=== PATIENT | female | born 1950 | race Hispanic/Latino ===

== ENCOUNTER 2019-06-19 12:20 | Outpatient (CLI) | payer MEDICARE, BC, SELFPAY ==
--- NOTE | ~2019-06-19 | XR_ITS ---
XR chest 2V DATE: 06/19/2019 13:26 INDICATION: Shortness of breath with exertion TECHNIQUE: PA and lateral views COMPARISON: 04/21/2017 PA chest FINDINGS: Heart size is within normal limits. Is aortic calcification and unfolding. No hilar or medi astinal enlargement is evident. No pulmonary infiltrate or consolidation, pleural effusion or pulmona ry vascular congestion or pneumothorax is detected. There is degenerative spurring of the thoracic spine. Evidence of prior abdominal wall repair. IMPRESSION: No active cardiopulmonary disease Aortic atherosclerosis Reviewed, dictated and finalized at location A.
--- NOTE | 2019-06-19 12:39 | ECG_ITS ---
Measurements Intervals [place] Rate: 81 P: 7 LA: 156 QRS: -6 QRSD: 98 T: 21 QT: 395 QTc: 461 Interpretive Statements SINUS RHYTHM DELAYED PRECORDIAL R/S TRANSITION BORDERLINE ECG Electronically Signed On 06-19-2019 13:06:08 CDT by Dewayne Jacobson D.O.
[2019-06-19 13:01] LABS: Basophils Percent Auto 0.5 % (0.2-1.2); Eosinophils Absolute Auto 0.3 K/mm3 (0-0.3); Hematocrit 33.6 % (37.0-47.0); Hemoglobin 10.7 g/dL (12.0-15.0); Immature Granulocyte Absolute 0.03 K/mm3 (0.00-0.031); Immature Granulocyte Percent A 0.5 % (0-0.5); Lymphocytes Absolute Auto 1.87 K/mm3 (0.9-3.2); Mean Corpuscular HGB Conc 31.8 g/dl (32-36); Mean Corpuscular Hemoglobin 28.8 pg (26-34); Mean Corpuscular Volume 90.6 fl (80-100); Mean Platelet Volume 12.1 fl (7.4-10.4); Monocytes Absolute Auto 0.5 K/mm3 (0.1-0.6); Monocytes Percent Auto 7.4 % (2.6-8.5); Neutrophils Absolute Auto 3.7 K/mm3 (1.3-6.7); Neutrophils Percent Auto 57.6 % (45.5-73.1); Platelet Count Result 177 k/mm3 (150-375); Red Blood Count 3.71 M/mm3 (4.2-5.4); Red Cell Distribution Width 13.9 % (11.5-14.5); White Blood Count 6.5 K/mm3 (4.5-10.0)
[2019-06-19 13:14] LABS: Alanine Aminotransferase 29 U/L (4-35); Albumin Level 3.8 g/dL (3.5-5.1); Alkaline Phosphatase 153 U/L (38-126); Aspartate Amino Transferase 43 U/L (14-36); Bilirubin,Total 0.4 mg/dL (0.2-1.3); Blood Urea Nitrogen 21 mg/dL (7-17); Carbon Dioxide 30 mmol/L (22-30); Chloride 102 mmol/L (98-107); Estimated Glomerular Filt Rate > 60; Glucose 200 mg/dL (65-105); Potassium 4.3 mmol/L (3.4-5.0); Sodium 136 mmol/L (137-145)
[2019-06-19 13:16] LABS: D Dimer 0.78 ug/mL (<0.48)
[2019-06-19 13:21] LABS: NT Pro B Type Natriuretic Pept 214 PG/ML (5-100)
== END 2019-06-19 12:21 | disposition home or self-care (01) ==
PROVIDERS: PCP Internal Medicine; Visit Provider Nurse Practitioner
DX: R06.02 Shortness of breath (principal); I70.0 Atherosclerosis of aorta
CPT/HCPCS: 36415; 71046; 80053; 83880; 85025; 85380; 93005

== ENCOUNTER 2019-06-19 13:37 | Emergency (ER) | payer MEDICARE, BC, SELFPAY ==
--- NOTE | ~2019-06-19 | CT_ITS ---
EXAMINATION: CTA chest PE protocol DATE: 06/19/2019 14:52 INDICATION: Shortness of breath. Elevated d-dimer. TECHNIQUE: Computed tomography angiography (CTA) of the chest was performed with 100 mL Omnipaque-350 intravenous contrast timed to evaluate the pulmonary arteries. Coronal maximum intensity projection 3D-reconstructions were created by the technologist. Automated exposure control and iterative reconst ruction technique were employed. Exam dose: 828.35 mGy-cm total exam DLP. COMPARISON: 06/18/2021 view chest FINDINGS: There is diagnostic contrast enhancement of the pulmonary arteries and no evidence of pulmo nary embolism. No evidence of thoracic aortic aneurysm or dissection. Cardiomegaly. No pericardial or pleural effusion. There is calcification. No hilar or mediastinal mass lesion or lymphadenopathy. Old pulmonary granulomatous disease. No pulmonary infiltrate or consolidation or pulmonary mass lesio n is evident. Old right rib fractures. Degenerative changes of the cervical and thoracic spine. Status post ventral abdominal wall mesh repair. Status post cholecystectomy. IMPRESSION: No evidence of pulmonary embolism Cardiomegaly Reviewed, dictated and finalized at Location [facility]. Reviewed, dictated and finalized at location A.
[2019-06-19 13:48] VITALS: BP 166/63; PULSE 84; RESP 18; TEMP 36.7; O2SAT 100
[2019-06-19 13:54] VITALS: O2SAT 100
--- NOTE | 2019-06-19 14:22 | ED.SOB ---
HPI - SOB/Dyspnea General Chief Complaint: Shortness of Breath/Dyspnea Stated Complaint: Trouble breathing Time Seen by Provider: 06/19/19 13:43 Source: patient Mode of arrival: ambulatory Limitations: no limitations History of Present Illness HPI Narrative: This is a 68 year old female that presents to the ER for shortness of breath x 2 weeks. Reports worse with exertion and when she is laying flat. Reports she was seen by her PCP for this today and had labs and imaging done. Reports she was told to come to the ER for a possible blood clot. Does report a productive cough, that seems to be chronic. Also reports edema to the right ankle which is chronic since her surgery a year ago. Denies fever, sore throat, or chest pain. Related Data Home Medications Medication Instructions Recorded Confirmed aspirin 81 mg tablet,delayed 81 mg PO DAILY 01/02/19 05/14/19 release cholecalciferol (vitamin D3) 125 5,000 unit PO DAILY 01/02/19 05/14/19 mcg (5,000 unit) tablet multivitamin 1 tablet PO DAILY 01/02/19 05/14/19 omega-3 fatty acids 1,000 mg 1,000 mg PO DAILY 01/02/19 05/14/19 capsule esomeprazole magnesium [Nexium] 20 mg PO DAILY 06/19/19 insulin glargine [Lantus U-100 75 unit SUBCUT HS 06/19/19 Insulin] Allergies Allergy/AdvReac Type Severity Reaction Status Date / Time daptomycin Allergy Intermediate Hives Verified 06/19/19 14:00 valsartan Allergy Intermediate Hives Verified 06/19/19 14:00 vancomycin Allergy Intermediate Hives Verified 06/19/19 14:00 Review of Systems Review of Systems: Narrative: CONSTITUTIONAL: Denies fever ENT: Denies rhinorrhea, congestion, sore throat CARDIOVASCULAR: Reports edema. Denies chest pain RESPIRATORY: Reports cough and dyspnea. All systems reviewed & are unremarkable except as noted in HPI and below PMFSH Past Medical History Medical History (Updated 06/19/19 @ 15:46 by Yanira Adame PA-C) Anemia Carpal tunnel syndrome, bilateral Cellulitis of right foot Chicken pox Chronic pain Heartburn Hernia Hypertension Hypothyroidism Pneumonia Polyneuropathy Rheumatoid arthritis Type 2 diabetes mellitus UTI (urinary tract infection) Surgical History Surgical History (Updated 01/02/19 @ 13:34 by Barbie Stanton CMA) H/O foot surgery Hx of cholecystectomy Family History Family History (Updated 01/02/19 @ 14:06 by Barbie Stanton CMA) Father Hyperlipidemia Lung cancer Diabetes mellitus Mother Diabetes mellitus Other Family history of allergic disorder Hypertension Social History Social History (Updated 05/14/19 @ 10:30 by Barbie Stanton CMA) Smoking status: Former smoker Smoking end date: 02/27/05 Alcohol intake: current Gender identity (if verbalized by the patient): Female Exam Narrative: Exam Narrative: GENERAL: Well-appearing, obese, and in no acute distress. HEAD: Normocephalic, atraumatic. EYES: EOMI. ENT: Nares clear, no rhinorrhea or epistaxis. Mucous membranes moist. Oropharynx without tonsillar hypertrophy exudate or other lesions. Bilateral TMs pearly linda non-bulging NECK: Supple. No adenopathy or masses. No JVD CHEST: Clear to auscultation. No respiratory distress. No wheezes, rales or rhonchi HEART: Regular rate and rhythm. No murmur heard. Normal peripheral pulses EXTREMITIES: Normal range of motion. Non pitting edema to the right ankle which patient reports is chronic. SKIN: Warm, dry, no rash. NEURO: No focal deficits. Alert and oriented x3. PSYCH: Normal mood and affect Course Vital Signs Vital signs: Vital Signs Temperature 98.1 F 06/19/19 13:48 Pulse Rate 84 06/19/19 13:48 Respiratory Rate 18 06/19/19 13:48 Blood Pressure 166/63 H 06/19/19 13:48 Pulse Oximetry 100 06/19/19 13:48 Temperature 98.1 F 06/19/19 13:48 Pulse Rate 84 06/19/19 13:48 Respiratory Rate 18 06/19/19 13:48 Blood Pressure 166/63 H 06/19/19 13:48 Pulse Oximetry 100 06/19/19 13:54 MDM - SOB/Dyspnea M
[2019-06-19 15:59] VITALS: BP 163/70; PULSE 83; RESP 18; O2SAT 99
== END 2019-06-19 16:04 | disposition home or self-care (01) ==
PROVIDERS: Emergency Provider Emergency Medicine; PCP Internal Medicine
DX: R06.02 Shortness of breath (principal); I10 Essential (primary) hypertension; E03.9 Hypothyroidism, unspecified; E11.42 Type 2 diabetes mellitus with diabetic polyneuropathy; Z79.4 Long term (current) use of insulin; Z86.2 Personal history of diseases of the blood and blood-forming organs and certain disorders involving the immune mechanism; M06.9 Rheumatoid arthritis, unspecified; Z87.440 Personal history of urinary (tract) infections; Z87.891 Personal history of nicotine dependence
CPT/HCPCS: 36415; 71046; 71275; 80053; 83880; 85025; 85380; 93005; 99284; Q9967

== ENCOUNTER 2019-07-03 12:17 | Outpatient (CLI) | payer MEDICARE, BC, SELFPAY ==
--- NOTE | 2019-07-03 12:36 | ECHO_ITS ---
Patient Info Name: Aleyda Dobbs Age: 69 years : 1950 Gender: Female Ht: 64 in Wt: 240 lbs BSA: 2.27 m2 HR: 86 bpm BP: 174 / 85 mmHg Technical Quality: Fair Exam Date: 07/03/2019 12:59 PM Exam Location: [facility] Patient Status: Outpatient Admit Date: 07/03/2019 Staff Ordering Physician: Charles Armendariz DO [employer] Car Supervisor: Clifton Orellana RDCS, RT Attending Provider: Charles Armendariz DO Referring Physician: Kala JALLOH; Exam Type: CA echo doppler color flow Study Info Indications I50.9 - Heart failure, unspecified Complete two-dimensional, color flow and Doppler transthoracic echocardiogram is performed. Summary 1. Left ventricular chamber dimension is normal. 2. Left ventricular systolic function is normal, estimated at 65-70%. 3. There is mildly increased left ventricular wall thickness. 4. The left ventricular diastolic function is grade I diastolic dysfunction. 5. E/e' 19 is elevated. 6. Global longitudinal strain is abnormal at -15.4%. 7. Left atrial chamber dimension is mildly enlarged. 8. There is mild aortic valve sclerosis. 9. The mitral valve has not well visualized and moderately calcified annulus. Left Ventricle E/e' 19 is elevated. Global longitudinal strain is abnormal at -15.4%. Left ventricular chamber dimension is normal. Left ventricular systolic function is normal, estimated at 65-70%. There is mildly increased left ventricular wall thickness. The left ventricular diastolic function is grade I diastolic dysfunction. Right Ventricle Right ventricular chamber dimension is normal. Right ventricular systolic function is normal. Left Atria Left atrial chamber dimension is mildly enlarged. Right Atria Right atrial chamber dimension is normal. Aortic Valve The aortic valve is probable trileaflet. There is mild aortic valve sclerosis. There is no aortic valve stenosis. There is no aortic valve regurgitation. Pulmonic Valve There is no pulmonic regurgitation. Mitral Valve The mitral valve has not well visualized and moderately calcified annulus. There is no mitral valve stenosis. There is no mitral valve regurgitation. Tricuspid Valve There is no tricuspid valve regurgitation. Pericardium/Pleural There is no pericardial effusion. Inferior Vena Cava Normal inferior vena cava with >50% collapse upon inspiration consistent with normal right atrial pressure, 5 mmHg. Aorta The aortic root size at the sinus of Valsalva is normal. Left Ventricular Outflow Tract Name Value Normal LVOT 2D LVOT Diameter 1.9 cm LVOT Doppler LVOT Peak Gradient 5 mmHg LVOT Mean Gradient 2 mmHg LVOT VTI 23 cm LVOT VTI/AV VTI Ratio 0.8 LVOT Stroke Volume 66 ml LVOT CO 5.8 l/min LVOT CI 2.5 l/min/m2 Mitral Valve Name Value N
== END 2019-07-03 12:18 | disposition home or self-care (01) ==
PROVIDERS: PCP Internal Medicine; Visit Provider Internal Medicine
DX: R06.02 Shortness of breath (principal); I25.2 Old myocardial infarction; I35.8 Other nonrheumatic aortic valve disorders
CPT/HCPCS: 93306

== ENCOUNTER 2019-10-28 12:32 | Emergency (ER) | payer MEDICARE, BC, SELFPAY ==
[2019-10-28 13:08] VITALS: BP 168/63; PULSE 93; RESP 18; TEMP 36.3; O2SAT 99
--- NOTE | 2019-10-28 14:22 | ED.GENADULT ---
HPI - General Adult General Chief complaint: Fall <TIMOTEO Charles Last Filed: 10/28/19 14:26> Stated complaint: fall, hit head and rt arm <TIMOTEO Charles Last Filed: 10/28/19 14:26> Time Seen by Provider: 10/28/19 13:06 <TIMOTEO Charles Last Filed: 10/28/19 14:26> Source: patient <TIMOTEO Charles Last Filed: 10/28/19 14:26> Mode of arrival: ambulatory <TIMOTEO Charles Last Filed: 10/28/19 14:26> Limitations: no limitations <TIMOTEO Charles Last Filed: 10/28/19 14:26> History of Present Illness HPI narrative: Patient is a 69-year-old female who presents per private vehicle for evaluation of injuries related to a ground-level fall that occurred today patient was ambulating when she fell backwards striking the head and injuring the right forearm patient notes bruise of the right mid forearm as well as mild posterior head pain where she struck her head on a door on the way down to the ground. Patient denies syncope loss of consciousness or other injuries and notes that she otherwise feels fine on arrival resting comfortably in the room in no distress presenting with normal gait <TIMOTEO Charles Last Filed: 10/28/19 14:26> Related Data Home medications: Home Medications Medication Instructions Recorded Confirmed aspirin 81 mg tablet,delayed 81 mg PO DAILY 01/02/19 10/15/19 release cholecalciferol (vitamin D3) 125 5,000 unit PO DAILY 01/02/19 10/15/19 mcg (5,000 unit) tablet multivitamin 1 tablet PO DAILY 01/02/19 10/15/19 omega-3 fatty acids 1,000 mg 1,000 mg PO DAILY 01/02/19 10/15/19 capsule insulin glargine U-300 conc 300 78 unit SUB-Q DAILY ml 10/15/19 10/15/19 unit/mL (3 mL) subcutaneous pen <TIMOTEO Charles Last Filed: 10/28/19 14:26> Allergies/adverse reactions: Allergies Allergy/AdvReac Type Severity Reaction Status Date / Time daptomycin Allergy Intermediate Hives Verified 06/25/19 10:26 valsartan Allergy Intermediate Hives Verified 06/25/19 10:26 vancomycin Allergy Intermediate Hives Verified 06/25/19 10:26 <Ramez Pulido PA-C - Last Filed: 10/28/19 14:26> Review of Systems Review of Systems: All systems reviewed & are unremarkable except as noted in HPI and below <Ramez Pulido PA-C - Last Filed: 10/28/19 14:26> PMFSH Past Medical History Medical History: Medical History Anemia Carpal tunnel syndrome, bilateral Cellulitis of right foot Chicken pox Chronic pain Heartburn Hernia History of [place] (myocardial infarction) Hypertension Hypothyroidism Pneumonia Polyneuropathy Rheumatoid arthritis Type 2 diabetes mellitus UTI (urinary tract infection) <Ramez Pulido PA-C - Last Filed: 10/28/19 14:26> Surgical History Surgical History: Surgical History H/O foot surgery Hx of cholecystectomy <Ramez Pulido PA-C - Last Filed: 10/28/19 14:26> Family History Family History: Family History Father Hyperlipidemia Lung cancer Diabetes mellitus Mother Diabetes mellitus Other Family history of allergic disorder Hypertension <Ramez Pulido PA-C - Last Filed: 10/28/19 14:26> Social History Social History: Social History Smoking status: Former smoker Smoking end date: 02/27/05 Alcohol intake: current Gender identity (if verbalized by the patient): Female <Ramez Pulido PA-C - Last Filed: 10/28/19 14:26> Exam Narrative: Exam Narrative: GENERAL: Well-appearing, well-nourished, and in no acute distress. HEAD: Normocephalic, small contusion to the posterior head EYES: PERRLA and EOMI. ENT: Nares clear, no rhinorrhea or epistaxis. Mucous membranes moist. Oropharynx without tonsillar h
[2019-10-28 14:49] VITALS: BP 155/60; PULSE 76; RESP 18; O2SAT 98
== END 2019-10-28 14:50 | disposition home or self-care (01) ==
LOC: ANHED 14:35
PROVIDERS: Emergency Provider Emergency Medicine; PCP Internal Medicine
DX: S09.90XA Unspecified injury of head, initial encounter (principal); S50.11XA Contusion of right forearm, initial encounter; Z79.82 Long term (current) use of aspirin; Z79.4 Long term (current) use of insulin; Z86.2 Personal history of diseases of the blood and blood-forming organs and certain disorders involving the immune mechanism; I25.2 Old myocardial infarction; I10 Essential (primary) hypertension; E03.9 Hypothyroidism, unspecified; E11.42 Type 2 diabetes mellitus with diabetic polyneuropathy; M06.9 Rheumatoid arthritis, unspecified; Z87.440 Personal history of urinary (tract) infections; Z87.891 Personal history of nicotine dependence; W01.119A Fall on same level from slipping, tripping and stumbling with subsequent striking against unspecified sharp object, initial encounter
CPT/HCPCS: 99282

== ENCOUNTER 2020-05-13 09:25 | Outpatient (CLI) | payer MEDICARE, BC, SELFPAY ==
[2020-05-13 09:57] LABS: Basophils Percent Auto 0.5 % (0.2-1.2); Eosinophils Absolute Auto 0.3 K/mm3 (0-0.3); Eosinophils Percent Auto 5.1 % (0-4.4); Hematocrit 32.5 % (37.0-47.0); Hemoglobin 10.4 g/dL (12.0-15.0); Immature Granulocyte Absolute 0.03 K/mm3 (0.00-0.031); Immature Granulocyte Percent A 0.5 % (0-0.5); Lymphocytes Absolute Auto 1.69 K/mm3 (0.9-3.2); Lymphocytes Percent Auto 30.7 % (18.3-44.2); Mean Corpuscular Hemoglobin 29.1 pg (26-34); Mean Platelet Volume 12.3 fl (7.4-10.4); Monocytes Absolute Auto 0.5 K/mm3 (0.1-0.6); Monocytes Percent Auto 8.5 % (2.6-8.5); Neutrophils Percent Auto 54.7 % (45.5-73.1); Platelet Count Result 147 k/mm3 (150-375); Red Blood Count 3.57 M/mm3 (4.2-5.4); Red Cell Distribution Width 14.1 % (11.5-14.5); White Blood Count 5.5 K/mm3 (4.5-10.0)
[2020-05-13 10:10] LABS: Potassium 3.7 mmol/L (3.4-5.0)
[2020-05-13 10:16] LABS: Alanine Aminotransferase 24 U/L (4-35); Albumin Level 3.6 g/dL (3.5-5.1); Alkaline Phosphatase 115 U/L (38-126); Anion Gap 4 mmol/L (8-16); Aspartate Amino Transferase 39 U/L (14-36); Bilirubin,Total 0.2 mg/dL (0.2-1.3); Blood Urea Nitrogen 26 mg/dL (7-17); Calcium 8.5 mg/dL (8.4-10.2); Carbon Dioxide 32 mmol/L (22-30); Chloride 107 mmol/L (98-107); Estimated Glomerular Filt Rate 50; Glucose 109 mg/dL (65-105); Sodium 143 mmol/L (137-145)
[2020-05-13 10:36] LABS: Iron 62 ug/dL (37-170)
[2020-05-13 10:54] LABS: Free T4 Free Thyroxine 1.39 ng/mL (0.78-2.19)
[2020-05-13 10:55] LABS: Percent Iron Saturation 23 % (20-50)
[2020-05-17 08:09] LABS: Triiodothyronine T3 Free 2.6 pg/mL (2.3-4.2)
== END 2020-05-13 09:26 | disposition home or self-care (01) ==
PROVIDERS: PCP Internal Medicine; Visit Provider Clinical Nurse Specialist
DX: D64.9 Anemia, unspecified (principal); E03.9 Hypothyroidism, unspecified; R11.2 Nausea with vomiting, unspecified
CPT/HCPCS: 36415; 80053; 82728; 83540; 83550; 84439; 84443; 84481; 85025

== ENCOUNTER → 2020-05-16 01:08 | Outpatient (CLI) | payer MEDICARE, BC, SELFPAY ==
[2020-05-16 19:13] LABS: SARS-CoV-2 RNA PCR Negative
== END ==
PROVIDERS: PCP Internal Medicine; Visit Provider Internal Medicine Gastroenterology
DX: Z01.812 Encounter for preprocedural laboratory examination (principal); Z20.822 Contact with and (suspected) exposure to COVID-19
CPT/HCPCS: C9803; U0003; U0005

== ENCOUNTER 2020-05-19 00:15 | Day surgery (SDC) | payer MEDICARE, BC, SELFPAY ==
[2020-05-06 13:12] VITALS: BMI 38.5
[2020-05-19 11:07] VITALS: BP 141/76; PULSE 72; RESP 20; TEMP 36.3; O2SAT 94; BMI 38.9
[2020-05-19 11:15] LABS: Glucose Point of Care 54 (65-105)
[2020-05-19] MEDS: DEXTROSE 50% 25 GM/50 ML SYRINGE IV PUSH ×2 (11:18→13:22)
[2020-05-19] MEDS: LACTATED RINGERS 1,000 ML 150 ML IV CONT (11:24)
--- NOTE | 2020-05-19 11:28 | SUR.PREOP ---
Pt BS as charted. MD Shah made aware. Orders given. pt asymptomatic. will recheck BS.
--- NOTE | 2020-05-19 11:32 | WPDANESEPPF ---
Anes - Initial Pre Proc Eval Procedure: Operation Date: 05/19/20 12:45 Proposed Procedures p Esophagogastroduodenoscopy & Colonoscopy - Juan Carlos Luna MD Date/Time: 05/19/20 11:32 Surgeon: Juan Carlos Luna MD Pre Op Diagnosis: diarrhea, nausea Patient Data Age: 69 Gender: F Height: 5 ft 3 in Weight: 99.7 kg Last Vital Signs Temp 97.3 F L 05/19/20 11:07 Pulse 72 05/19/20 11:07 Resp 20 05/19/20 11:07 BP 141/76 H 05/19/20 11:07 Pulse Ox 94 05/19/20 11:07 Allergies Allergy/AdvReac Type Severity Reaction Status Date / Time daptomycin Allergy Intermediate Hives Verified 05/19/20 11:05 valsartan Allergy Intermediate Hives Verified 05/19/20 11:05 vancomycin Allergy Intermediate Hives Verified 05/19/20 11:05 lisinopril Allergy Cough Verified 05/19/20 11:05 Home Medications Medication Instructions Recorded Confirmed Type aspirin 81 mg tablet,delayed 81 mg PO DAILY 01/02/19 05/19/20 History release cholecalciferol (vitamin D3) 125 5,000 unit PO DAILY 01/02/19 05/19/20 History mcg (5,000 unit) tablet gabapentin 600 mg tablet 600 mg PO BID #180 tablet 01/02/19 05/19/20 Rx insulin lispro 100 unit/mL 1 sliding scale dose SUB-Q 01/02/19 05/19/20 Rx subcutaneous cartridge USEASDIRECTD #3 ml multivitamin 1 tablet PO DAILY 01/02/19 05/19/20 History omega-3 fatty acids 1,000 mg 1,000 mg PO DAILY 01/02/19 05/19/20 History capsule albuterol sulfate 90 mcg/actuation 2 puff INHALATION Q4-6H PRN #8.5 gm 05/14/19 05/19/20 Rx aerosol inhaler amlodipine 2.5 mg tablet 2.5 mg PO DAILY #90 tablet 05/14/19 05/19/20 Rx atorvastatin 40 mg tablet 40 mg PO DAILY #90 tablet 05/14/19 05/19/20 Rx fluticasone propionate 50 1 - 2 spray NASAL DAILY PRN #54.6 05/14/19 05/19/20 Rx mcg/actuation nasal ml spray,suspension furosemide 20 mg tablet 20 mg PO QAM #90 tablet 05/14/19 05/19/20 Rx metoprolol succinate 25 mg 25 mg PO DAILY #90 tablet 05/14/19 05/19/20 Rx tablet,extended release 24 hr insulin glargine U-300 conc 300 78 unit SUB-Q DAILY ml 10/15/19 05/19/20 History unit/mL (3 mL) subcutaneous pen levothyroxine 100 mcg tablet 100 mcg PO DAILY #90 tablet 12/07/19 05/19/20 Rx famotidine 20 mg tablet 20 mg PO BID #180 tablet 01/16/20 05/19/20 Rx prochlorperazine maleate 5 mg 5 mg PO Q8H PRN #14 tablet 03/05/20 05/19/20 Rx tablet metformin 1,000 mg tablet 1,000 mg PO BID #180 tablet 04/14/20 05/19/20 Rx sodium,potassium,mag sulfates 17.5 See Rx Instructions PO .COMPLEX 04/27/20 05/19/20 Rx gram-3.13 gram-1.6 gram oral soln #354 ml duloxetine [Cymbalta] 20 mg PO DAILY 05/06/20 05/19/20 History hydroxychloroquine [Plaquenil] 200 mg PO BID 05/06/20 05/19/20 History montelukast [Singulair] 10 mg PO DAILY 05/06/20 05/19/20 History tizanidine [Zanaflex] 2 mg PO TID PRN 05/06/20 05/19/20 History Laboratory Tests 05/19/20 11:13 POC Capillary Glucose 54 mg/dl L* mg/dl (65-105) Patient hx anesthesia problems: none Family hx anesthesia problems: none PMFSH Past Medical History Medical History (Updated 04/23/20 @ 12:10 by TIKI Hoff) Anemia Carpal tunnel syndrome, bilateral Cellulitis of right foot Chicken pox Chronic pain Diarrhea Heartburn Hernia History of [place] (myocardial infarction) Hypertension Hypothyroidism Obesity Pneumonia Polyneuropathy Rheumatoid arthritis Type 2 diabetes mellitus UTI (urinary tract infection) Surgical History Surgical History H/O foot surgery Hx of cholecystectomy Family History Family History Father Hyperlipidemia Lung cancer Diabetes mellitus Mother Diabetes mellitus Other Family history of allergic disorder Hypertension Social History Social History Smoking status: Former smoker Tobacco type: cigarettes Smokin
[2020-05-19 12:04] LABS: Glucose Point of Care 73 (65-105)
--- NOTE | 2020-05-19 12:14 | WPDHPUPDATE1 ---
History and Physical Update Update Date/Time: 05/19/20 12:14 History and Physical has been reviewed, including an updated exam of the patient. There are NO changes in the patient's condition. Risks, benefits, and alternatives have been discussed and questions answered. Patient agrees to proceed with procedure.
[2020-05-19 12:53] VITALS: BP 96/37; PULSE 76; RESP 16; O2SAT 100
[2020-05-19 13:03] VITALS: BP 113/49; PULSE 78; RESP 20; O2SAT 98
--- NOTE | 2020-05-19 13:05 | SUR.PHASEII ---
PT'S BLOOD SUGAR 55. PT AWAKE AND ORIENTED X3, TALKING WITHOUT DIFFICULTY. PT GIVEN APPLE JUICE PER REQUEST. DR REY NOTIFIED. WILL RECHECK BLOOD SUGAR AFTER APPLE JUICE.
[2020-05-19 13:13] VITALS: BP 123/64; PULSE 80; RESP 20; O2SAT 97
[2020-05-19 13:23] VITALS: BP 134/43; PULSE 78; RESP 22; O2SAT 96
--- NOTE | 2020-05-19 13:23 | SUR.PHASEII ---
BLOOD SUGAR AFTER PT DRINKING APPLE JUICE IS 45. PT ASSYMPTOMATIC. DR REY NOTIFIED AND NEW ORDERS RECEIVED FOR ONE HALF AMP OF D50. PT AND SPOUSE NOTIFIED AND DEXTROSE GIVEN PER ORDERS.
--- NOTE | 2020-05-19 13:39 | SUR.PHASEII ---
REPEAT BLOOD SUGAR 92. PT STATES DOES NOT FEEL BAD, NO SYMPTOMS. AWAKE AND TALKING X3.
[2020-05-19 13:58] LABS: Glucose Point of Care 92 (65-105)
[2020-05-19 13:58] LABS: Glucose Point of Care 45 (65-105)
[2020-05-19 13:58] LABS: Glucose Point of Care 55 (65-105)
== END 2020-05-19 13:55 | disposition home or self-care (01) ==
PROVIDERS: PCP Internal Medicine; Visit Provider Internal Medicine Gastroenterology
PROC: 0DJ08ZZ Inspection of Upper Intestinal Tract, Via Natural or Artificial Opening Endoscopic (ICD-10-PCS; CPT 43235; principal; 2020-05-19 12:45)
DX: Z12.11 Encounter for screening for malignant neoplasm of colon (principal); K63.5 Polyp of colon; K64.8 Other hemorrhoids; K52.9 Noninfective gastroenteritis and colitis, unspecified; K29.50 Unspecified chronic gastritis without bleeding; K20.90 Esophagitis, unspecified without bleeding; I10 Essential (primary) hypertension; E11.42 Type 2 diabetes mellitus with diabetic polyneuropathy; M06.9 Rheumatoid arthritis, unspecified; D64.9 Anemia, unspecified; I25.2 Old myocardial infarction; E03.9 Hypothyroidism, unspecified; Z79.4 Long term (current) use of insulin; Z79.51 Long term (current) use of inhaled steroids; Z79.84 Long term (current) use of oral hypoglycemic drugs; Z87.891 Personal history of nicotine dependence; E66.9 Obesity, unspecified; Z68.38 Body mass index [BMI] 38.0-38.9, adult
CPT/HCPCS: 45380; 43239; 82948; 88305; J2704; J7120

== ENCOUNTER 2020-06-04 07:10 | Outpatient (CLI) | payer MEDICARE, BC, SELFPAY ==
--- NOTE | ~2020-06-04 | NM_ITS ---
EXAM: NM gastric emptying study DATE: 06/04/2020 11:54 INDICATION: Nausea and vomiting. TECHNIQUE: A gastric emptying study was performed using the methodology of Dewayne WALSH, et al. J Nucl Med 2007; 48:568-572. The patient was given a meal consisting of 2 scrambled eggs labeled with 1 mCi Tc-99m sulfur colloid, 2 slices of toast, two packages of jam, and approximately 120 mL of water. Si multaneous anterior and posterior 1-min images of the abdomen were obtained with the patient supine a t multiple time points over a total period of 4 hours. The geometric mean of anterior and posterior v iews was determined, and the percentage retention was calculated for each time point. COMPARISON: Chest CT 06/19/2019 FINDINGS: Gastric retention of the radiotracer-labeled meal was 83%, 77%, and 63% at the 1-hour, 2-h our, and 4-hour time points, respectively. With this technique, apparent rapid gastric emptying is molina ggested by <30% gastric retention at 1 hour. Delayed gastric emptying is defined by gastric retention of >90% at 1 hour, >60% retention at 2 hours, or >10% retention at 4 hours. IMPRESSION: 1. Delayed gastric emptying. Reviewed, dictated and finalized at location A.
== END 2020-06-04 07:11 | disposition home or self-care (01) ==
PROVIDERS: PCP Internal Medicine; Visit Provider Nurse Practitioner Family
DX: R11.2 Nausea with vomiting, unspecified (principal); E11.9 Type 2 diabetes mellitus without complications; K30 Functional dyspepsia
CPT/HCPCS: 78264; A9541

== ENCOUNTER 2020-06-17 22:04 | Inpatient (IN) | payer MEDICARE, BC, SELFPAY ==
--- NOTE | ~2020-06-17 | XR_ITS ---
XR foot LT min 3V 06/17/2020 22:33 Indication: First toe wound. Diabetes. Procedure: 4 views left foot Comparison: No prior studies for comparison. Findings: Osteopenia. There is a screw fusing the no first distal and proximal phalanges. There is a radiopaque disc overlying the midfoot laterally. Extensive arterial calcifications. Mild soft tissue swelling overlying the first toe. No osteolytic or blastic lesions. No significant periosteal reactio n. There are prominent degenerative calcaneal enthesophytes. Impression: 1: No acute bone or joint abnormality. Reviewed, dictated and finalized at location A. Impression: 1: No acute bone or joint abnormality.
--- NOTE | ~2020-06-17 | US_ITS ---
EXAMINATION: US arterial ankle brachial ind DATE: 06/18/2020 09:53 INDICATION: Peripheral arterial disease. TECHNIQUE: Segmental pressures and plethysmographic and Doppler waveforms of the brachial and lower e xtremity arteries were obtained. COMPARISON: Arterial Doppler and segmental pressures 05/10/2017 FINDINGS: Right and left brachial artery pressures of 157 mm Hg and 158 mm Hg, respectively, are concordant (no rmal difference <= 30 mmHg). The right ankle-brachial index (TANA) could not be measured due to inability to cuff occlude the arter ies (normal >= 0.9-1.0). The right great toe-brachial index (TBI) is 0.91 (normal >= 0.65). Arterial Doppler waveforms are biphasic at the ankle. The left TANA could not be measured due to inability to cuff occlude the arteries. The left TBI is 0.3 9. Arterial Doppler waveforms are biphasic at the ankle. IMPRESSION: 1. Decreased left TBI, consistent with left-sided arterial occlusive disease. ABIs could not be measu red. Reviewed, dictated and finalized at location B. IMPRESSION: 1. Decreased left TBI, consistent with left-sided arterial occlusive disease. A BIs could not be measured.
--- NOTE | ~2020-06-17 | US_ITS ---
EXAMINATION: US venous doppler [facility] DATE: 06/19/2020 15:47 INDICATION: Left lower limb pain and cellulitis. TECHNIQUE: Grayscale ultrasound images without and with compression and Doppler ultrasound images of the left lower extremity veins were obtained. COMPARISON: None. FINDINGS: The visualized portions of left common femoral vein, profunda (deep) femoral vein, femoral vein, popl iteal vein, peroneal veins, posterior tibial veins, gastrocnemius vein and greater saphenous vein out flow are patent. IMPRESSION: 1. No deep venous thrombosis in the left lower limb. Reviewed, dictated and finalized at location A.
--- NOTE | ~2020-06-17 | CT_ITS ---
EXAMINATION: CTA abd aorta runoff DATE: 06/19/2020 16:07 INDICATION: Peripheral arterial disease. Ulcer of left great toe. TECHNIQUE: Computed tomographic angiography (CTA) of the abdominal, pelvis, and both lower extremitie s was performed with 150 mL Omnipaque-350 intravenous contrast. The dose-length product was 1668.08 m Gy-cm. Maximum intensity projection 3D-reconstructions of the arteries were created by the [facility] on a separate workstation. COMPARISON: ABIs 06/18/2020, chest CT 06/19/2019 FINDINGS: ABDOMINAL AORTA AND ITS BRANCHES: Abdominal aorta is normal in caliber. There is no significant stenosis of celiac axis. There is mild stenosis of superior mesenteric artery and the renal arteries. There is no significant stenosis of in ferior mesenteric artery. PELVIC VASCULATURE: There is no significant stenosis of the common iliac arteries or internal or external iliac arteries. RIGHT LOWER EXTREMITY VASCULATURE: There is no significant stenosis of right common femoral artery, superficial femoral artery, profunda femoral artery, popliteal artery, tibioperoneal trunk, anterior tibial artery, or peroneal artery. T here is total occlusion of proximal left posterior tibial artery. Arterial calcifications decrease se nsitivity and specificity in the lower leg arteries. LEFT LOWER EXTREMITY VASCULATURE: There is no significant stenosis of the common femoral artery, profunda femoral artery, superficial f emoral artery, popliteal artery, tibioperoneal trunk, anterior tibial artery, or peroneal artery. The re is total occlusion of posterior tibial artery as it crosses the ankle. Arterial calcifications dec rease sensitivity and specificity in the lower leg. ADDITIONAL FINDINGS: The visualized portions of the lung bases demonstrate calcified right lower lobe nodule and calcified right hilar lymph nodes, consistent with old granulomatous disease. No pleural effusion. Cardiomegal y is noted. No pericardial effusion. The liver is normal. There are changes of cholecystectomy. There is a 4.2 cm low-attenuation mass in the spleen with calcified septations, stable from 06/19/2019, lik steve benign. Calcifications in the spleen are consistent with old granulomatous disease. The pancreas and adrenal glands are normal. There is cortical thinning of the kidneys. There are no dilated loops of bowel. The appendix is not visualized. There are changes of ventral hernia repair. There are no pa thologically enlarged lymph nodes. There is no free intraperitoneal fluid. There is instrumentation o f the feet. IMPRESSION: 1. Total occlusion of proximal right posterior tibial artery and distal left posterior tibial artery . Two-vessel runoff bilaterally. Arterial calcifications decrease sensitivity and specificity in the lower legs. Reviewed, dictated and finalized at location A. IMPRESSION: 1. Total occlusion of proximal right posterior tibial artery and distal left p osterior tibial artery. Two-vessel runoff bilaterally. Arterial calcifications decrease sensitivity and specificity in the lower legs.
[2020-06-17 22:06] VITALS: BP 135/60; PULSE 92; RESP 18; TEMP 35.9; O2SAT 99
--- NOTE | 2020-06-17 22:19 | ED.WOUNDLAC ---
HPI - Wound/Laceration General Chief Complaint: Wound/Laceration Stated Complaint: left foot wound Time Seen by Provider: 06/17/20 22:13 Source: RN notes reviewed History of Present Illness HPI narrative: Patient presents emergency department from home for left first toe wound. Patient states symptoms initially began 3 weeks ago and progressively worsened. Patient states that the wound initially been a open ulceration and is now black in color she states that she has had swelling and pain in the region with some redness coming up into the foot states she did run a fever 2 days ago with subjective she is a diabetic she denies any other wounds she denies any chest pain shortness of breath or any other symptoms Related Data Home Medications Medication Instructions Recorded Confirmed aspirin 81 mg tablet,delayed 81 mg PO DAILY 01/02/19 06/15/20 release cholecalciferol (vitamin D3) 125 5,000 unit PO DAILY 01/02/19 06/15/20 mcg (5,000 unit) tablet multivitamin 1 tablet PO DAILY 01/02/19 06/15/20 omega-3 fatty acids 1,000 mg 1,000 mg PO DAILY 01/02/19 06/15/20 capsule insulin glargine U-300 conc 300 78 unit SUB-Q DAILY ml 10/15/19 06/15/20 unit/mL (3 mL) subcutaneous pen duloxetine [Cymbalta] 20 mg PO DAILY 05/06/20 06/15/20 hydroxychloroquine [Plaquenil] 200 mg PO BID 05/06/20 06/15/20 montelukast [Singulair] 10 mg PO DAILY 05/06/20 06/15/20 Allergies Allergy/AdvReac Type Severity Reaction Status Date / Time daptomycin Allergy Intermediate Hives Verified 06/17/20 22:10 valsartan Allergy Intermediate Hives Verified 06/17/20 22:10 vancomycin Allergy Intermediate Hives Verified 06/17/20 22:10 lisinopril Allergy Cough Verified 06/17/20 22:10 Review of Systems Review of Systems: Narrative: Gen.: Denies fevers or chills ENT: Denies congestion Respiratory: Denies shortness of breath or cough CV: Denies chest pain or palpitations GI: Denies abdominal pain nausea, emesis Musculoskeletal: Denies back pain or muscle pain Neuro: Denies numbness, tingling, weakness or focal weakness Skin: See HPI Except as documented, all other systems reviewed and negative [facility] Past Medical History Medical History Anemia Carpal tunnel syndrome, bilateral Cellulitis of right foot Chicken pox Chronic pain Diarrhea Heartburn Hernia History of [place] (myocardial infarction) Hypertension Hypothyroidism Obesity Pneumonia Polyneuropathy Rheumatoid arthritis Type 2 diabetes mellitus UTI (urinary tract infection) Surgical History Surgical History H/O foot surgery Hx of cholecystectomy Family History Family History Father Hyperlipidemia Lung cancer Diabetes mellitus Mother Diabetes mellitus Other Family history of allergic disorder Hypertension Social History Social History Smoking status: Former smoker Tobacco type: cigarettes Smoking end date: 02/27/05 Alcohol intake: current Substance use type: does not use Gender identity (if verbalized by the patient): Female Spiritual care concerns: No Exam Narrative: Exam Narrative: APPEARANCE: No acute distress, nontoxic, resting in bed EYES: EOMI HEENT: Normocephalic, atraumatic, OMM RESPIRATORY: No respiratory distress Clear to auscultation bilaterally with no rhonchi wheezing or rales. CARDIOVASCULAR: Regular rate and rhythm without murmurs rubs or gallops. ABDOMINAL: Soft, nontender, nondistended, no rebound or guarding MUSCULOSKELETAl: Moves all extremities. No clubbing, cyanosis or edema. NEURO: Awake and alert. Following commands, speech normal, no focal deficits SKIN:: Warm, dry. No rashes lesions The left great toe has a blackened circular wound with eschar over the distal aspect with swelling of the entire great toe with e
[2020-06-17 22:52] LABS: Basophils Percent Auto 0.3 % (0.2-1.2); Eosinophils Absolute Auto 0.2 K/mm3 (0-0.3); Eosinophils Percent Auto 1.8 % (0-4.4); Hematocrit 29.3 % (37.0-47.0); Hemoglobin 9.5 g/dL (12.0-15.0); Immature Granulocyte Absolute 0.04 K/mm3 (0.00-0.031); Immature Granulocyte Percent A 0.4 % (0-0.5); Lymphocytes Percent Auto 22.3 % (18.3-44.2); Mean Corpuscular HGB Conc 32.4 g/dl (32-36); Mean Corpuscular Hemoglobin 28.9 pg (26-34); Mean Corpuscular Volume 89.1 fl (80-100); Monocytes Absolute Auto 0.9 K/mm3 (0.1-0.6); Monocytes Percent Auto 8.3 % (2.6-8.5); Neutrophils Absolute Auto 7.2 K/mm3 (1.3-6.7); Neutrophils Percent Auto 66.9 % (45.5-73.1); Platelet Count Result 175 k/mm3 (150-375); Red Blood Count 3.29 M/mm3 (4.2-5.4); Red Cell Distribution Width 13.6 % (11.5-14.5); White Blood Count 10.8 K/mm3 (4.5-10.0)
[2020-06-17 23:01] LABS: Prothrombin Time 13.6 Seconds (11.1-14.7)
[2020-06-17 23:02] LABS: Partial Thromboplastin Time 36.5 SECONDS (22.3-36.8)
[2020-06-17 23:03] LABS: Alanine Aminotransferase 20 U/L (4-35); Albumin Level 3.7 g/dL (3.5-5.1); Alkaline Phosphatase 117 U/L (38-126); Anion Gap 6 mmol/L (8-16); Aspartate Amino Transferase 29 U/L (14-36); Bilirubin,Total 0.4 mg/dL (0.2-1.3); Blood Urea Nitrogen 20 mg/dL (7-17); Calcium 8.4 mg/dL (8.4-10.2); Carbon Dioxide 29 mmol/L (22-30); Chloride 100 mmol/L (98-107); Estimated CRCL calculation 46 ml/min; Estimated Glomerular Filt Rate 45; Glucose 179 mg/dL (65-105); Potassium 3.5 mmol/L (3.4-5.0); Sodium 135 mmol/L (137-145)
[2020-06-17 23:04] LABS: Lactic Acid Reflex 1.3 mmol/L (0.7-2.1)
[2020-06-17 23:23] LABS: Hemoglobin A1C 6.2 % (<5.7)
[2020-06-17 23:31] VITALS: BP 133/58; PULSE 86; RESP 18; TEMP 37.1; O2SAT 100
[2020-06-18] VITALS (8 sets, daily range): BP systolic 138–146; BP diastolic 60–72; PULSE 85–92; RESP 18–20; TEMP 36.7–37.1; O2SAT 96–100; BMI 38.7
--- NOTE | 2020-06-18 00:36 | ADMGEN ---
This patient, Aleyda Dobbs, was admitted to 3 [facility] Surg Room 313-01. Patient/family oriented to hospital policies and general routines including ID bracelet, bed and alarms, visiting hours, pain management, procedures, bathroom and other care routines, personal items, smoking policy, room service/diet, and visiting hours. Information on how to activate the Rapid Response Team has been discussed. Patient/Family are encouraged to report perceived risks to care and to ask questions if they do not understand what they are told or what they should do.
[2020-06-18] MEDS: SODIUM CHLORIDE 0.9% IV 1,000 ML 100 ML IV CONT ×3 (01:03→21:15)
--- NOTE | 2020-06-18 01:59 | PM.IMHP ---
H&P: HPI History of Present Illness Date/Time: 06/18/20 01:59 Chief Complaint: Dark discoloration and redness of left great toe+ Narrative: This is a 69-year-old diabetic female with known history of hypertension, hypothyroidism, and rheumatoid arthritis among many other comorbidities who presented to the hospital with a complaint of a worsening left great toe wound. Patient has been having symptoms of a left great toe wound for the past 3 weeks which initially started as an open ulcer and now has become dark and black in color. The patient has no feeling of her toes secondary to peripheral neuropathy. She has noticed increased redness of her left great toe. Associated symptoms include nausea and fever. The patient was evaluated emergency room this evening and treated with IV imipenem. The patient denies any other symptoms such as headache, vomiting, chest pain, shortness of breath, abdominal pain, dysuria, hematuria, diarrhea, or rectal bleeding. ER provider has consulted Ortho, Dr. Walton who has asked that we admit the patient to the hospital and he will evaluate the patient in the morning for possible debridement of her left great toe. The patient reports me that she does have an appointment with vascular surgeon, Dr. Hanna on July 01. No other complaints tonight. Review of Systems Review of Systems: All systems reviewed & are unremarkable except as noted in HPI and below PMFSH Past Medical History Medical History (Updated 06/18/20 @ 04:19 by Charles Leger MD) Anemia Carpal tunnel syndrome, bilateral Cellulitis of right foot Chicken pox Chronic pain Diarrhea Heartburn Hernia History of PA (myocardial infarction) Hypertension Hypothyroidism Obesity Pneumonia Polyneuropathy Rheumatoid arthritis Type 2 diabetes mellitus UTI (urinary tract infection) Surgical History Surgical History H/O foot surgery Hx of cholecystectomy Family History Family History Father Hyperlipidemia Lung cancer Diabetes mellitus Mother Diabetes mellitus Other Family history of allergic disorder Hypertension Social History Social History Smoking status: Former smoker Tobacco type: cigarettes Smoking end date: 02/27/05 Alcohol intake: never Substance use: never Substance use type: does not use Gender identity (if verbalized by the patient): Female Spiritual care concerns: No Meds Home Medications and Allergies Home Medications Medication Instructions Recorded Confirmed Type aspirin 81 mg tablet,delayed 81 mg PO DAILY 01/02/19 06/15/20 History release cholecalciferol (vitamin D3) 125 5,000 unit PO DAILY 01/02/19 06/15/20 History mcg (5,000 unit) tablet gabapentin 600 mg tablet 600 mg PO BID #180 tablet 01/02/19 06/15/20 Rx insulin lispro 100 unit/mL 1 sliding scale dose SUB-Q 01/02/19 06/15/20 Rx subcutaneous cartridge USEASDIRECTD #3 ml multivitamin 1 tablet PO DAILY 01/02/19 06/15/20 History omega-3 fatty acids 1,000 mg 1,000 mg PO DAILY 01/02/19 06/15/20 History capsule albuterol sulfate 90 mcg/actuation 2 puff INHALATION Q4-6H PRN #8.5 gm 05/14/19 06/15/20 Rx aerosol inhaler amlodipine 2.5 mg tablet 2.5 mg PO DAILY #90 tablet 05/14/19 06/15/20 Rx atorvastatin 40 mg tablet 40 mg PO DAILY #90 tablet 05/14/19 06/15/20 Rx fluticasone propionate 50 1 - 2 spray NASAL DAILY PRN #54.6 05/14/19 06/15/20 Rx mcg/actuation nasal ml spray,suspension furosemide 20 mg tablet 20 mg PO QAM #90 tablet 05/14/19 06/15/20 Rx metoprolol succinate 25 mg 25 mg PO DAILY #90 tablet 05/14/19 06/15/20 Rx tablet,extended release 24 hr insulin glargine U-300 conc 300 78 unit SUB-Q DAILY ml 10/15/19 06/15/20 History unit/mL (3 mL) subcutaneous pen famotidine 20 mg tablet 20 mg PO BID #180 tablet 01/16/20 06/15/20 Rx prochlorperazine heidi
[2020-06-18 06:12] LABS: Basophils Percent Auto 0.3 % (0.2-1.2); Eosinophils Absolute Auto 0.2 K/mm3 (0-0.3); Eosinophils Percent Auto 2.2 % (0-4.4); Hematocrit 28.1 % (37.0-47.0); Hemoglobin 9.1 g/dL (12.0-15.0); Immature Granulocyte Absolute 0.04 K/mm3 (0.00-0.031); Immature Granulocyte Percent A 0.4 % (0-0.5); Lymphocytes Absolute Auto 1.96 K/mm3 (0.9-3.2); Lymphocytes Percent Auto 20.3 % (18.3-44.2); Mean Corpuscular HGB Conc 32.4 g/dl (32-36); Mean Corpuscular Hemoglobin 28.5 pg (26-34); Mean Corpuscular Volume 88.1 fl (80-100); Mean Platelet Volume 12.1 fl (7.4-10.4); Monocytes Absolute Auto 0.9 K/mm3 (0.1-0.6); Monocytes Percent Auto 8.9 % (2.6-8.5); Neutrophils Absolute Auto 6.6 K/mm3 (1.3-6.7); Neutrophils Percent Auto 67.9 % (45.5-73.1); Platelet Count Result 157 k/mm3 (150-375); Red Blood Count 3.19 M/mm3 (4.2-5.4); Red Cell Distribution Width 13.4 % (11.5-14.5); White Blood Count 9.7 K/mm3 (4.5-10.0)
[2020-06-18 06:36] LABS: Anion Gap 6 mmol/L (8-16); Blood Urea Nitrogen 17 mg/dL (7-17); Calcium 8.4 mg/dL (8.4-10.2); Carbon Dioxide 28 mmol/L (22-30); Chloride 104 mmol/L (98-107); Estimated CRCL calculation 54 ml/min; Estimated Glomerular Filt Rate 55; Glucose 114 mg/dL (65-105); Potassium 3.5 mmol/L (3.4-5.0); Sodium 138 mmol/L (137-145)
--- NOTE | 2020-06-18 09:12 | PM.CNOR ---
Assessment and Plan Assessment and plan (1) Open wound of left great toe: Qualifiers: Encounter type: initial encounter Qualified Code(s): S91.102A - Unspecified open wound of left great toe without damage to nail, initial encounter Code(s): S91.102A - Unspecified open wound of left great toe without damage to nail, initial encounter Status: Acute Assessment and Plan: History, exam and radiographs reviewed with the patient today. Radiographs of the left foot reveal diffuse osteopenia, a screw in knee hallux, radiopaque disc in the cuboid, extensive arterial calcifications and mild soft tissue swelling overlying the 1st toe. No evidence of osteomyelitis. Discussed condition, nature, etiology course of natural history. Conservative and operative treatment options reviewed as well as the risks and benefits of each. Patient currently has a dusky left hallux with a ulcer on the distal aspect of the hallux with surrounding blood blistering. Scant serosanguineous drainage. No malodor. Surrounding tissue with erythema. Pain over the medial malleolus at the site of a previous incision. Very faint but palpable pedal pulses. Patient has been seen a foot ankle specialist, Dr. Taylor, at [place] who works with [facility]. She also has an appointment with Dr. Hanna, a vascular surgeon coming up on July 01. At this time, recommend painting toe with Betadine and continuing IV antibiotics for surrounding cellulitis. We will await wound clinic recommendations. We will obtain ABIs for further evaluation of arterial disease. Patient to continue postop shoe which she has currently at the bedside. Will continue to monitor. Thank you for allowing us to assist in the care of this patient. We will determine further need for surgical intervention pending results of ABIs. (2) Cellulitis of great toe, left: Code(s): L03.032 - Cellulitis of left toe Status: Chronic Assessment and Plan: Continue IV antibiotics at this time. (3) Type 2 diabetes mellitus: Code(s): E11.9 - Type 2 diabetes mellitus without complications Status: Acute Assessment and Plan: Will need close diabetic control for optimal healing. History of Present Illness HPI Consult date: 06/18/20 Consult reason: other (Left hallux wound) Chief complaint: Left first toe wound with cellulitis Narrative: 69-year-old female admitted into the hospital for concerns of left hallux wound and surrounding cellulitis. Patient reports an increasing of redness and warmth to the left hallux which is now spreading into the left medial ankle at the site of the previous surgical intervention. She reports an onset of an ulcer approximately 3 weeks ago for which she saw a Dr. Taylor at [place] who works with [facility]. She was putting some sort of topical ointment on her foot at that time. Her medical records, the patient has an appointment with vascular surgeon Dr. Hanna on July 01. She reports a history of vascular problems. She noticed worsening of the hallux wound, surrounding cellulitis and erythema and necrosis appearing wound where was previously more red in nature over the last 1-2 days. She reports a mild fever and nausea. She denies chills, night sweats, vomiting or diarrhea. She has had multiple surgical interventions to bilateral feet by foot and ankle surgeons in the past. She also loosely reports a history of Charcot to the right foot. She is a poor historian in regards to her previous surgical intervention. Review of Systems Constitutional: Constitutional: Reports no additional constitutional complaints, Denies chills, Denies fatigue, Denies headache(s) and Denies weakness Eyes: Eyes: Denies change in vision ENT: Reports Normal hearing present and Denies headache(s) Cardiovascular: Cardiovascular: Denies chest pain and Denies dyspnea Respiratory: Respiratory: Denies cough, Denies dyspnea and
[2020-06-18 11:57] LABS: Glucose Point of Care 114 (65-105)
--- NOTE | 2020-06-18 15:11 | PM.IMPN ---
Progress Note: A&P Assessment and Plan (1) Skin ulcer of left great toe with necrosis of muscle: Code(s): L97.523 - Non-pressure chronic ulcer of other part of left foot with necrosis of muscle Status: Acute Assessment and Plan: Small ulceration with necrosis to L great toe present for around 3 weeks per patient. Appreciate orthopedic recommendations. Noted plan to continue IV antibiotics and have patient follow up for her scheduled appointment 06/30/20 with vascular surgeon, Dr Hanna. (2) Cellulitis of great toe, left: Code(s): L03.032 - Cellulitis of left toe Status: Chronic Assessment and Plan: Secondary to above. Continue IV imipenem. (3) Diabetes mellitus: Code(s): E11.9 - Type 2 diabetes mellitus without complications Status: Chronic Assessment and Plan: A1c is 6.2%. Continue long-acting insulin at a lower dose. Continue to monitor with accu-cheks and adjust treatment as needed, cover with SSI. (4) Chronic anemia: Code(s): D64.9 - Anemia, unspecified Status: Chronic Assessment and Plan: Chronic on review of previous labs. No evidence of acute blood loss. Monitor CBC, consider transfusion if Hgb < 7. (5) Hypothyroidism: Code(s): E03.9 - Hypothyroidism, unspecified Status: Chronic Assessment and Plan: Continue home levothyroxine. (6) GERD (gastroesophageal reflux disease): Qualifiers: Esophagitis presence: without esophagitis Qualified Code(s): K21.9 - Gastro-esophageal reflux disease without esophagitis Code(s): K21.9 - Gastro-esophageal reflux disease without esophagitis Status: Chronic Assessment and Plan: Resume PPI. (7) Hypertension: Code(s): I10 - Essential (primary) hypertension Status: Chronic Assessment and Plan: BP stable, last 138/60. Resume home amlodipine. (8) Rheumatoid arthritis: Code(s): M06.9 - Rheumatoid arthritis, unspecified Status: Chronic Assessment and Plan: Resume home Plaquenil. (9) Abdominal pain: Code(s): R10.9 - Unspecified abdominal pain Status: Chronic Assessment and Plan: She has experienced ongoing abdominal discomfort after eating with associated nausea for which she has followed with Dr Welch's office for. Recent EGD and colonoscopy April 2020 grossly unremarkable but biopsies show evidence of possible mildly active inflammatory bowel disease. Recent NM gastric emptying study shows delayed gastric emptying. Continue supportive care with her home PRN compazine. Subjective Date/time seen: 06/18/20 15:00 Interval history: Ms. Dobbs is a 69yo F admitted for left foot ulcer. She describes pain to left toe is 6/10 at present. She describes chronic upper abdominal pain with nausea and vomiting, worse after eating, which she has been following with Dr Welch's office for. She denies chest pain. Notes she feels slightly short of breath which is no worse than her normal. She was nauseous earlier which has subsided. She describes a long-standing history of having loose stools. Review of Systems Review of Systems: All systems reviewed & are unremarkable except as noted in HPI and below Exam Narrative: Exam Narrative: General: Female resting comfortably supine in bed in no acute distress. HEENT: Normocephalic, EOMI, oral mucosa moist. Cardiovascular: Rate and rhythm are regular. Respiratory: Lungs clear to auscultation bilaterally. Respirations even and non-labored. Tolerating room air. Abdomen: Protubera
[2020-06-18 16:37] LABS: Glucose Point of Care 146 (65-105)
[2020-06-18] MEDS: PROCHLORPERAZINE MALEATE 5 MG TABLET PO (17:01)
[2020-06-18] MEDS: HYDROXYCHLOROQUINE SULFATE 200 MG TABLET PO (17:03)
[2020-06-18] MEDS: GABAPENTIN 300 MG CAPSULE 600 MG PO (21:13)
[2020-06-18] MEDS: MONTELUKAST SODIUM 10 MG TABLET PO (21:13)
[2020-06-18] MEDS: ATORVASTATIN 40 MG TABLET PO (21:13)
[2020-06-18] MEDS: INSULIN GLARGINE (*BKC) 100 UNITS/ML 20 UNITS SUB-Q (21:16)
[2020-06-18 21:36] LABS: Glucose Point of Care 267 (65-105)
[2020-06-19 05:29] VITALS: BP 155/60; PULSE 95; RESP 18; TEMP 36.8; O2SAT 95
[2020-06-19] MEDS: LEVOTHYROXINE SODIUM 100 MCG TABLET PO (05:35)
[2020-06-19 06:03] LABS: Basophils Percent Auto 0.3 % (0.2-1.2); Eosinophils Absolute Auto 0.2 K/mm3 (0-0.3); Eosinophils Percent Auto 2.3 % (0-4.4); Hematocrit 28.3 % (37.0-47.0); Hemoglobin 9.1 g/dL (12.0-15.0); Immature Granulocyte Absolute 0.04 K/mm3 (0.00-0.031); Immature Granulocyte Percent A 0.4 % (0-0.5); Lymphocytes Absolute Auto 1.48 K/mm3 (0.9-3.2); Lymphocytes Percent Auto 16.1 % (18.3-44.2); Mean Corpuscular HGB Conc 32.2 g/dl (32-36); Mean Corpuscular Hemoglobin 28.4 pg (26-34); Mean Corpuscular Volume 88.4 fl (80-100); Mean Platelet Volume 12.1 fl (7.4-10.4); Monocytes Absolute Auto 0.8 K/mm3 (0.1-0.6); Monocytes Percent Auto 8.7 % (2.6-8.5); Neutrophils Absolute Auto 6.6 K/mm3 (1.3-6.7); Neutrophils Percent Auto 72.2 % (45.5-73.1); Platelet Count Result 160 k/mm3 (150-375); Red Cell Distribution Width 13.4 % (11.5-14.5); White Blood Count 9.2 K/mm3 (4.5-10.0)
[2020-06-19 06:21] LABS: Anion Gap 8 mmol/L (8-16); Blood Urea Nitrogen 12 mg/dL (7-17); Calcium 8.3 mg/dL (8.4-10.2); Carbon Dioxide 26 mmol/L (22-30); Chloride 104 mmol/L (98-107); Estimated CRCL calculation 59 ml/min; Estimated Glomerular Filt Rate > 60; Glucose 174 mg/dL (65-105); Magnesium 1.5 mg/dL (1.6-2.3); Potassium 3.3 mmol/L (3.4-5.0); Sodium 138 mmol/L (137-145)
[2020-06-19 08:15] LABS: Glucose Point of Care 151 (65-105)
[2020-06-19] MEDS: amLODIPine BESYLATE 2.5 MG TABLET PO (09:02)
[2020-06-19] MEDS: CHOLECALCIFEROL 1,000 UNITS TABLET 5000 UNITS PO (09:02)
[2020-06-19] MEDS: FUROSEMIDE 20 MG TABLET PO (09:03)
[2020-06-19] MEDS: ENOXAPARIN 40 MG/0.4 ML SYRINGE SUB-Q (09:03)
[2020-06-19] MEDS: DULoxetine HCL 20 MG CAPSULE.DR PO (09:03)
[2020-06-19] MEDS: ASPIRIN 81 MG ENTERIC TABLET PO (09:03)
[2020-06-19] MEDS: GABAPENTIN 300 MG CAPSULE 600 MG PO ×2 (09:03→20:44)
[2020-06-19 09:04] VITALS: PULSE 68
[2020-06-19] MEDS: HYDROXYCHLOROQUINE SULFATE 200 MG TABLET PO ×2 (09:04→17:26)
[2020-06-19] MEDS: METOPROLOL SUCCINATE EXT REL 25 MG TABCR PO (09:04)
[2020-06-19] MEDS: SODIUM CHLORIDE 0.9% IV 1,000 ML 100 ML IV CONT ×2 (09:05→17:24)
[2020-06-19] MEDS: PANTOPRAZOLE 40 MG TABLET PO (09:05)
[2020-06-19] MEDS: MAGNESIUM SULF 2 GM/WATER 50ML 2 GM/50 ML BAG IVPB (09:14)
[2020-06-19] MEDS: POTASSIUM CHLORIDE 20 MEQ TABLET 40 MEQ PO (09:14)
[2020-06-19 12:05] LABS: Glucose Point of Care 194 (65-105)
--- NOTE | 2020-06-19 13:19 | PM.PNORT ---
Progress Note: A&P Assessment and Plan (1) Skin ulcer of left great toe with necrosis of muscle: Code(s): L97.523 - Non-pressure chronic ulcer of other part of left foot with necrosis of muscle Status: Acute Assessment and Plan: minimal changes left great toe. Still at risk for loss of toe and foot given peripheral vascular status. Patient states scheduled to see vascular surgeon July 02. We will contact vascular surgeon office to see if they can see her earlier. Start dressing changes to the left great toe. Continue to observe. Ok to Discharge home when medically stable. (2) Cellulitis of great toe, left: Code(s): L03.032 - Cellulitis of left toe Status: Chronic (3) Peripheral arterial disease: Code(s): I73.9 - Peripheral vascular disease, unspecified Status: Acute Subjective Subjective Date/Time Seen: 06/19/20 13:19 patient states overall feeling better. Still concerned about left foot. Review of Systems Constitutional: Constitutional: Reports no additional constitutional complaints, Denies chills, Denies fatigue, Denies headache(s) and Denies weakness Eyes: Eyes: Denies change in vision ENT: Reports Normal hearing present and Denies headache(s) Cardiovascular: Cardiovascular: Denies chest pain and Denies dyspnea Respiratory: Respiratory: Denies cough, Denies dyspnea and Denies wheezing Gastrointestinal: Gastrointestinal: Reports as per HPI, Denies constipation, Denies diarrhea and Denies nausea Genitourinary: Genitourinary: Denies hematuria, Denies dysuria and Denies urinary urgency Musculoskeletal: Musculoskeletal: Reports as per HPI, Denies numbness and Denies tingling Integumentary/Breasts: Skin/Breast: Reports as per HPI Neurologic: Reports as per HPI, Reports Normal hearing present, Denies headache(s), Reports numbness, Reports tingling and Denies weakness Psychiatric: Psychiatric: Reports no additional psychiatric complaints Endocrine: Endocrine: Reports no additional endocrine complaints and Denies fatigue Hematologic/Lymphatic: Hematologic/Lymphatic: Reports no additional hematologic/lymphatic complaints Allergic/Immunologic: Allergic/Immunologic: Reports no additional allergic/immunologic complaints and Denies wheezing Exam Const: General: cooperative and comfortable HENMT: Mouth: Yes moist mucous membranes Eyes: General: appearance normal, both eyes and all related structures Neck: Neck: supple and no JVD Resp: Effort & Inspection: normal respiratory effort Cardio: Rate: regular rate Rhythm: regular rhythm GI: Inspection: non-distended GI Palp: Yes Soft to palpation and No Tenderness to palpation present (GI) Neuro: General: gait normal Cognition (Neuro): normal cognition Speech: normal speech Extrem: Left lower extremity: ankle Details: tenderness Location: of the medial malleolus and swelling and foot Details: tenderness Location: of the great toe (hallux with necrosis/dusky ), abnormal ROM of toe Details: pain with active ROM and pain with passive ROM, warmth, vascular exam Details: dorsalis pedis pulse present (very faint/palpable ) and posterior tibial pulse present (very faint/palpable ); not cool and motor-sensory exam two point discrimination abnormal and light-touch abnormal; abnormal capillary refill; abnormal capillary refill Other: Left hallux with small ulceration on the distal plantar aspect with surrounding blood blister. No purulence drainage noted. No malodor. Surrounding hallux with redness and warmth. Pain over the medial malleolus at the site of the previous incision consistent with surgical intervention, potentially posterior tibial tendon repair. Patient with very faint but palpable pedal pulses and posterior tibial tendon pulses. No other wounds noted. Psych: Mental Status: mental status grossly normal Affect: normal affect Objective Data Vital Signs Vital Signs: Vital Signs - 24 hr 06/18/20 14:00
[2020-06-19 14:00] VITALS: BP 156/74; PULSE 89; RESP 18; TEMP 37.5; O2SAT 98
--- NOTE | 2020-06-19 14:02 | PM.IMPN ---
Progress Note: A&P Assessment and Plan (1) Skin ulcer of left great toe with necrosis of muscle: Code(s): L97.523 - Non-pressure chronic ulcer of other part of left foot with necrosis of muscle Status: Acute Assessment and Plan: Small ulceration with necrosis to L great toe present for around 3 weeks per patient. Appreciate orthopedic recommendations. Noted plan to continue IV antibiotics and have patient follow up for her scheduled appointment 07/02/20 with vascular surgeon, Dr Hanna. Appreciate infectious disease recommendations. (2) Cellulitis of great toe, left: Code(s): L03.032 - Cellulitis of left toe Status: Chronic Assessment and Plan: Secondary to above. Continue IV imipenem pending infectious disease consultation. (3) Diabetes mellitus: Code(s): E11.9 - Type 2 diabetes mellitus without complications Status: Chronic Assessment and Plan: A1c is 6.2%. Continue long-acting insulin, increase this evening but is still lower than her home dose. Continue to monitor with accu-cheks and adjust treatment as needed, cover with SSI. (4) Chronic anemia: Code(s): D64.9 - Anemia, unspecified Status: Chronic Assessment and Plan: Chronic on review of previous labs. No evidence of acute blood loss. Monitor CBC, consider transfusion if Hgb < 7. (5) Hypothyroidism: Code(s): E03.9 - Hypothyroidism, unspecified Status: Chronic Assessment and Plan: Continue home levothyroxine. (6) GERD (gastroesophageal reflux disease): Qualifiers: Esophagitis presence: without esophagitis Qualified Code(s): K21.9 - Gastro-esophageal reflux disease without esophagitis Code(s): K21.9 - Gastro-esophageal reflux disease without esophagitis Status: Chronic Assessment and Plan: No acute issues. Continue PPI. (7) Hypertension: Code(s): I10 - Essential (primary) hypertension Status: Chronic Assessment and Plan: BP stable/slightly elevated this afternoon. Continue home amlodipine. (8) Rheumatoid arthritis: Code(s): M06.9 - Rheumatoid arthritis, unspecified Status: Chronic Assessment and Plan: Resume home Plaquenil. (9) Abdominal pain: Code(s): R10.9 - Unspecified abdominal pain Status: Chronic Assessment and Plan: She has experienced ongoing abdominal discomfort after eating with associated nausea for which she has followed with Dr Welch's office for. Recent EGD and colonoscopy April 2020 grossly unremarkable but biopsies show evidence of possible mildly active inflammatory bowel disease. Recent NM gastric emptying study shows delayed gastric emptying. Continue supportive care with her home PRN compazine. No acute issues today. Subjective Date/time seen: 06/19/20 1230 Interval history: Ms. Dobbs is a 69yo F admitted for left foot ulcer. Left toe pain is more tolerable today. Abdominal pain and nausea has subsided for today -this is chronic and she has good and bad days with this. She denies chest pain or shortness of breath. Called and spoke with patient's daughter, Valerie, on speaker phone in the patient's room to provide updates per patient's request. Review of Systems Review of Systems: All systems reviewed & are unremarkable except as noted in HPI and below Exam Narrative: Exam Narrative: General: Female resting comfortably sitting up in bed eating lunch in no acute distress. HEENT: Normocephalic, EOMI, oral mucosa moist. Cardiovascular: Rate and rhythm are r
--- NOTE | 2020-06-19 15:58 | WPDINFPN2 ---
Progress Note: A&P Assessment and Plan (1) Cellulitis of great toe, left: Code(s): L03.032 - Cellulitis of left toe Status: Chronic Assessment and Plan: Cellulitis of R 1st toe with early gangrene, bone hardware, DM, ASPVD REC PipTazo # / , will likely need toe amputation Subjective Date/time seen: 06/19/20 15:58 Objective Data Vital Signs Vital Signs: Vital Signs - 24 hr 06/18/20 20:00 06/18/20 21:15 06/18/20 21:49 Temperature 37.1 C Pulse Rate 91 92 Respiratory Rate 18 20 Blood Pressure 146/72 H Pulse Oximetry 98 98 96 06/19/20 05:29 06/19/20 09:04 06/19/20 14:00 Temperature 36.8 C 37.5 C Pulse Rate 95 68 89 Respiratory Rate 18 18 Blood Pressure 155/60 H 156/74 H Pulse Oximetry 95 98 Intake/Output Intake/Output: Intake & Output 06/16/20 06/17/20 06/18/20 06/19/20 23:59 23:59 23:59 23:59 Intake Total 100 3430 2900 Output Total 1500 1100 Balance 100 1930 1800 Meds/Results Medications: Active Medications Generic Name Dose Route Start Last Admin Trade Name Freq PRN Reason Stop Dose Admin Albuterol 2 puff 06/18/20 13:48 Albuterol Sulfate (*Sp) Aerosol 1 Puff INHALATION Q6HRT PRN shortness of breath Amlodipine Besylate 2.5 mg 06/19/20 09:00 06/19/20 09:02 Amlodipine Besylate 2.5 Mg Tablet PO 2.5 mg DAILY REGIS Administration Aspirin 81 mg 06/19/20 09:00 06/19/20 09:03 Aspirin 81 Mg Enteric Tablet PO 81 mg DAILY REGIS Administration Atorvastatin Calcium 40 mg 06/18/20 21:00 06/18/20 21:13 Atorvastatin 40 Mg Tablet PO 40 mg HS REGIS Administration Dextrose 12.5 gm 06/18/20 01:41 Dextrose 50% 25 Gm/50 Ml Syringe IV PUSH PRN PRN Hypoglycemia Protocol Duloxetine HCl 20 mg 06/19/20 09:00 06/19/20 09:03 Duloxetine Hcl 20 Mg Capsule.Dr PO 20 mg DAILY REGIS Administration Enoxaparin Sodium 40 mg 06/18/20 09:00 06/19/20 09:03 Enoxaparin 40 Mg/0.4 Ml Syringe SUB-Q 40 mg DAILY REGIS Administration Fluticasone Propionate 2 spray 06/18/20 13:48 Fluticasone Propionate 0.05% Na Spr 16 Gm Btl (*Bkc) NASAL DAILY PRN allergy symptoms Furosemide 20 mg 06/19/20 09:00 06/19/20 09:03 Furosemide 20 Mg Tablet PO 20 mg QAM REGIS Administration Gabapentin 600 mg 06/18/20 21:00 06/19/20 09:03 Gabapentin 300 Mg Capsule PO 600 mg Q12HR REGIS Administration Glucagon 1 mg 06/18/20 01:41 Glucagon For Inj 1 Mg Vial IM PRN PRN Hypoglycemia Protocol Hydroxychloroquine Sulfate 200 mg 06/18/20 17:00 06/19/20 09:04 Hydroxychloroquine Sulfate 200 Mg Tablet PO 200 mg BID REGIS Administration Imipenem/Cilastatin Sodium 500 mg in 100 mls @ 300 mls/hr 06/18/20 06:00 06/19/20 14:09 Primaxin 500 Mg/D5w 100 Ml IVPB 300 mls/hr Q8HR REGIS Administration Sodium Chloride 1,000 mls @ 100 mls/hr 06/17/20 23:15 06/19/20 09:05 Normal Saline Iv IV CONT 100 mls/hr .Q10H REGIS Administration Dextrose 1,000 mls @ 100 mls/hr 06/18/20 01:41 Dextrose 5% 1,000 Ml IVPB PRN PRN Hypoglycemia Protocol Insulin Aspart 2 - 5 units 06/19/20 17:00 Insulin Aspart (*Bkc) 100 Units/Ml SUB-Q ACINSULIN REGIS Protocol Insulin Glargine 20 units 06/18/20 21:00 06/18/20 21:16 Insulin Glargine (*Bkc) 100 Units/Ml 0.2 units/kg (20 units) 20 units SUB-Q Administration HS REGIS Levothyroxine Sodium 100 mcg 06/19/20 06:30 06/19/20 05:35 Levothyroxine Sodium 100 Mcg Tablet PO 100 mcg DAILY@0630 REGIS Administration Metoprolol Succinate 25 mg 06/19/20 09:00 06/19/20 09:04 Metoprolol Succinate Ext Rel 25 Mg Tabcr PO 25 mg DAILY REGIS Administration Montelukast Sodium 10 mg 06/18/20 21:00 06/18/20 21:13 Montelukast Sodium 10 Mg Tablet PO 10 mg HS REGIS Administration Morphine Sulfate 2 mg 06/18/20 11:21 Morphine Sulfate (*Crx) 2 Mg/Ml Inj IV PUSH Q4H PRN Breakthrough Pain P
[2020-06-19 16:17] VITALS: O2SAT 98
[2020-06-19 16:49] LABS: Glucose Point of Care 192 (65-105)
[2020-06-19] MEDS: MONTELUKAST SODIUM 10 MG TABLET PO (20:43)
[2020-06-19] MEDS: INSULIN GLARGINE (*BKC) 100 UNITS/ML 40 UNITS SUB-Q (20:44)
[2020-06-19] MEDS: ATORVASTATIN 40 MG TABLET PO (20:44)
[2020-06-19 22:00] VITALS: BP 141/58; PULSE 94; RESP 16; TEMP 36.7; O2SAT 99
[2020-06-19 22:55] VITALS: PULSE 89; O2SAT 95
[2020-06-19] MEDS: MORPHINE SULFATE (*CRX) 2 MG/ML INJ IV PUSH (23:09)
[2020-06-19 23:32] LABS: Glucose Point of Care 223 (65-105)
--- NOTE | 2020-06-20 00:09 | CONS_ITS ---
DATE OF CONSULTATION: 06/19/2020 HISTORY OF PRESENT ILLNESS: A 70-year-old female, who has diabetes and is on insulin. She has had previous corrective surgery on her left first toe apparently involving a pin to correct hammertoe or some other type of condition. She also has had proximal left foot surgery at the ankle involving both malleoli. Nature of this surgery or indication is unknown. Procedure/operations were done in 2019, or earlier. She has also had previous right foot operations. She was well until several days before admission when she developed a skin breakdown area plantar aspect of the left first toe. She saw her physician, who instructed topical treatment of some kind. However, 1-day before admission, the patient had new-onset of discoloration of the plantar toe and that was turning dark in color. She presented to the emergency room and was admitted on the . Here, she has been given imipenem and vancomycin. Consultation requested. She has not required any type of surgical intervention. She knows of no trauma whatsoever. No other operations to the toe. She has had known peripheral vascular disease and in fact has an appointment with a vascular surgeon. ALLERGIES: DAPTOMYCIN AND VANCOMYCIN, BOTH CAUSE HIVES. OTHERS NOT PERTINENT. HABITS: Ex-smoker. No alcohol. PRESENT MEDICATIONS: No systemic immunosuppressants. Extensive list reviewed. She takes home hydroxychloroquine. PAST MEDICAL HISTORY: Cholecystectomy, past UTI, type 2 diabetes mellitus, rheumatoid arthritis, obesity, hypothyroidism, hypertension, atherosclerosis with ME, chronic pain, previous cellulitis, right foot, carpal tunnel syndrome. REVIEW OF SYSTEMS: On the evening prior to admission, temperature up to 38.7. 14-point review otherwise negative. FAMILY HISTORY: Cancer, diabetes, hypertension. SOCIAL HISTORY: Family at the bedside. She does not work outside the home, lives locally. PHYSICAL EXAMINATION: GENERAL: This is an elderly female, who appears older than her actual age. No respiratory distress. VITAL SIGNS: On arrival here, temperature was 38.2, has been afebrile since. 156/74, 89, 18, 98%. SKIN: Warm and dry. No rashes, no erythroderma. NODES: She has no cervical adenopathy. EENT: The conjunctivae appear clear. Oral mucosa is normal. NECK: No masses, thyromegaly, meningismus. LUNGS: Clear to auscultation and percussion. CARDIAC: Regular rate and rhythm. No murmurs or gallops. Unable to palpate dorsalis pedis pulses. ABDOMEN: No bruits, tenderness, mass, organomegaly nondistended. EXTREMITIES: No clubbing, cyanosis, edema. She has expected surgical scars. MUSCULOSKELETAL: Left first toe has gangrene over the proximal and distal phalanges. There is a skin defect plantar distal phalanx. She has erythema in the same distribution. Also erythema over the foot in the area of the MTP joint. No gangrene overtly. No necrosis. No discharge. No sinus tract. LABORATORY DATA: Blood cultures, no growth after short incubation. White count 9.2, hemoglobin 9.1, platelets are 160. Differential is normal. Chemistry panel normal except for hypokalemia . Accu-Cheks variable. Hemoglobin A1c 7.1%, last winter 6.2% now. Liver function tests all normal. RADIOLOGY: Venous Doppler ultrasound, no DVT. Ankle-brachial index decreased left TBI. Foot x-ray showed no bony abnormalities. Soft tissue swelling, calcifications. ASSESSMENT: 1. Diabetes mellitus type 2, insulin dependent, well controlled. 2. Peripheral vascular disease, large vessel and small vessel. 3. Cellulitis of the left toe, perhaps traumatic in nature. She now has findings of early gangrene of the soft tissues. Osteomyelitis not demonstrated currently, but she is at risk for the same. S
[2020-06-20 03:00] VITALS: PULSE 82; O2SAT 96
[2020-06-20 05:56] LABS: Basophils Percent Auto 0.4 % (0.2-1.2); Eosinophils Absolute Auto 0.3 K/mm3 (0-0.3); Eosinophils Percent Auto 3.2 % (0-4.4); Hematocrit 27.9 % (37.0-47.0); Immature Granulocyte Absolute 0.03 K/mm3 (0.00-0.031); Immature Granulocyte Percent A 0.4 % (0-0.5); Lymphocytes Absolute Auto 1.58 K/mm3 (0.9-3.2); Lymphocytes Percent Auto 19.4 % (18.3-44.2); Mean Corpuscular HGB Conc 32.3 g/dl (32-36); Mean Corpuscular Hemoglobin 28.8 pg (26-34); Mean Corpuscular Volume 89.1 fl (80-100); Mean Platelet Volume 11.6 fl (7.4-10.4); Monocytes Absolute Auto 0.7 K/mm3 (0.1-0.6); Monocytes Percent Auto 8.2 % (2.6-8.5); Neutrophils Absolute Auto 5.6 K/mm3 (1.3-6.7); Neutrophils Percent Auto 68.4 % (45.5-73.1); Platelet Count Result 169 k/mm3 (150-375); Red Blood Count 3.13 M/mm3 (4.2-5.4); Red Cell Distribution Width 13.4 % (11.5-14.5); White Blood Count 8.2 K/mm3 (4.5-10.0)
[2020-06-20 06:00] VITALS: BP 123/53; PULSE 86; RESP 18; TEMP 37.1; O2SAT 97
[2020-06-20] MEDS: SODIUM CHLORIDE 0.9% IV 1,000 ML 100 ML IV CONT (06:10)
[2020-06-20] MEDS: LEVOTHYROXINE SODIUM 100 MCG TABLET PO (06:11)
[2020-06-20 06:17] LABS: Anion Gap 5 mmol/L (8-16); Blood Urea Nitrogen 13 mg/dL (7-17); Calcium 8.1 mg/dL (8.4-10.2); Carbon Dioxide 29 mmol/L (22-30); Chloride 105 mmol/L (98-107); Estimated CRCL calculation 53 ml/min; Estimated Glomerular Filt Rate 55; Glucose 120 mg/dL (65-105); Magnesium 1.8 mg/dL (1.6-2.3); Potassium 3.8 mmol/L (3.4-5.0); Sodium 139 mmol/L (137-145)
[2020-06-20 07:40] LABS: Glucose Point of Care 120 (65-105)
--- NOTE | 2020-06-20 10:13 | PM.PNORT ---
Progress Note: A&P Assessment and Plan (1) Peripheral arterial disease: Code(s): I73.9 - Peripheral vascular disease, unspecified Status: Acute Assessment and Plan: Results of CT angiogram noted. Bilateral tibial artery occlusion. Discussed with vascular surgeon Dr. Hanna's office. They are able to get her in earlier, June 29. Patient will need copy of her angiogram. Continue with supportive care for the toe. Daily dressing change with Betadine. Weight-bearing as tolerated. Okay for discharge with follow-up vascular surgery. Subjective Subjective Date/Time Seen: 06/20/20 10:13 Patient without new complaints. No change in condition. Exam Const: General: cooperative and comfortable HENMT: Mouth: Yes moist mucous membranes Eyes: General: appearance normal, both eyes and all related structures Neck: Neck: supple and no JVD Resp: Effort & Inspection: normal respiratory effort Cardio: Rate: regular rate Rhythm: regular rhythm GI: Inspection: non-distended GI Palp: Yes Soft to palpation and No Tenderness to palpation present (GI) Neuro: General: gait normal Cognition (Neuro): normal cognition Speech: normal speech Extrem: Left lower extremity: ankle Details: tenderness Location: of the medial malleolus and swelling and foot Details: tenderness Location: of the great toe (hallux with necrosis/dusky ), abnormal ROM of toe Details: pain with active ROM and pain with passive ROM, warmth, vascular exam Details: dorsalis pedis pulse present (very faint/palpable ) and posterior tibial pulse present (very faint/palpable ); not cool and motor-sensory exam two point discrimination abnormal and light-touch abnormal; abnormal capillary refill; abnormal capillary refill Other: Left hallux with small ulceration on the distal plantar aspect with surrounding blood blister. No purulence drainage noted. No malodor. Surrounding hallux with redness and warmth. Pain over the medial malleolus at the site of the previous incision consistent with surgical intervention, potentially posterior tibial tendon repair. Patient with very faint but palpable pedal pulses and posterior tibial tendon pulses. No other wounds noted. Psych: Mental Status: mental status grossly normal Affect: normal affect Objective Data Vital Signs Vital Signs: Vital Signs - 24 hr 06/19/20 14:00 06/19/20 16:17 06/19/20 22:00 Temperature 99.5 F 98.1 F Pulse Rate 89 94 Respiratory Rate 18 16 Blood Pressure 156/74 H 141/58 H Pulse Oximetry 98 98 99 06/19/20 22:55 06/20/20 03:00 06/20/20 06:00 Temperature 98.8 F Pulse Rate 89 82 86 Respiratory Rate 18 Blood Pressure 123/53 L Pulse Oximetry 95 96 97 Intake/Output Intake/Output: Intake & Output 06/17/20 06/18/20 06/19/20 06/20/20 23:59 23:59 23:59 23:59 Intake Total 100 3430 5870 1590 Output Total 1500 2450 1100 Balance 100 1930 3420 490 Meds/Results Medications: Active Medications Generic Name Dose Route Start Last Admin Trade Name Freq PRN Reason Stop Dose Admin Albuterol 2 puff 06/18/20 13:48 Albuterol Sulfate (*Sp) Aerosol 1 Puff INHALATION Q6HRT PRN shortness of breath Amlodipine Besylate 2.5 mg 06/19/20 09:00 06/19/20 09:02 Amlodipine Besylate 2.5 Mg Tablet PO 2.5 mg DAILY REGIS Administration Aspirin 81 mg 06/19/20 09:00 06/19/20 09:03 Aspirin 81 Mg Enteric Tablet PO 81 mg DAILY REGIS Administration Atorvastatin Calcium 40 mg 06/18/20 21:00 06/19/20 20:44 Atorvastatin 40 Mg Tablet PO 40 mg HS REGIS Administration Dextrose 12.5 gm 06/18/20 01:41 Dextrose 50% 25 Gm/50 Ml Syringe IV PUSH PRN PRN Hypoglycemia Protocol Duloxetine HCl 20 mg 06/19/20 09:00 06/19/20 09:03 Duloxetine Hcl 20 Mg Capsule.Dr PO 20 mg DAILY REGIS Administration Enoxaparin Sodium 40 mg 06/18/20 09:00 06/19/20 09:03 Enoxaparin 40 Mg/0.4 Ml Syringe SUB-Q 40 mg DAILY REGIS Administration F
[2020-06-20] MEDS: CHOLECALCIFEROL 1,000 UNITS TABLET 5000 UNITS PO (10:54)
[2020-06-20] MEDS: HYDROXYCHLOROQUINE SULFATE 200 MG TABLET PO ×2 (10:54→17:41)
[2020-06-20] MEDS: GABAPENTIN 300 MG CAPSULE 600 MG PO ×2 (10:54→22:16)
[2020-06-20] MEDS: PANTOPRAZOLE 40 MG TABLET PO (10:55)
[2020-06-20] MEDS: FUROSEMIDE 20 MG TABLET PO (10:55)
[2020-06-20] MEDS: MAGNESIUM OXIDE 200 MG TABLET PO ×2 (10:55→22:14)
[2020-06-20] MEDS: amLODIPine BESYLATE 2.5 MG TABLET PO (10:55)
[2020-06-20] MEDS: DULoxetine HCL 20 MG CAPSULE.DR PO (10:55)
[2020-06-20 10:56] VITALS: PULSE 76
[2020-06-20] MEDS: ENOXAPARIN 40 MG/0.4 ML SYRINGE SUB-Q (10:56)
[2020-06-20] MEDS: METOPROLOL SUCCINATE EXT REL 25 MG TABCR PO (10:56)
[2020-06-20] MEDS: FLUTICASONE PROPIONATE 0.05% NA SPR 16 GM BTL (*BKC) 2 SPRAY NASAL (10:57)
[2020-06-20] MEDS: ASPIRIN 81 MG ENTERIC TABLET PO (11:00)
[2020-06-20 11:42] LABS: Glucose Point of Care 230 (65-105)
[2020-06-20] MEDS: INSULIN ASPART (*BKC) 100 UNITS/ML SUB-Q ×2 (12:51→17:40)
--- NOTE | 2020-06-20 12:55 | PM.IMPN ---
Progress Note: A&P Assessment and Plan (1) Skin ulcer of left great toe with necrosis of muscle: Code(s): L97.523 - Non-pressure chronic ulcer of other part of left foot with necrosis of muscle Status: Acute Assessment and Plan: Small ulceration with necrosis to L great toe present for around 3 weeks per patient. Appreciate orthopedic recommendations. Noted plan to continue IV antibiotics and have patient follow up for her scheduled appointment with vascular surgeon, Dr Hanna. Discussed case with Dr Martinez; noted he spoke with Dr Hanna's office, obtained CTA runoff and wants her to take these results with her to her appointment with Dr Hanna, which he was able to arrange earlier appointment 06/29/20. He recommends she does not require inpatient transfer at this time and short-interval outpatient vascular surgery follow up is appropriate - she will continue IV antibiotics until then. Appreciate infectious disease recommendations. Changed to IV zosyn (day 2) and noted his recommendation for continuing this for 10 days. (2) Cellulitis of great toe, left: Code(s): L03.032 - Cellulitis of left toe Status: Chronic Assessment and Plan: Secondary to above. See treatment plan above. (3) Diabetes mellitus: Code(s): E11.9 - Type 2 diabetes mellitus without complications Status: Chronic Assessment and Plan: A1c is 6.2%. Continue long-acting insulin lower than her home dose, titrate up as needed. Continue to monitor with accu-cheks and adjust treatment as needed, cover with SSI. (4) Chronic anemia: Code(s): D64.9 - Anemia, unspecified Status: Chronic Assessment and Plan: Chronic on review of previous labs. No evidence of acute blood loss. Monitor CBC, consider transfusion if Hgb < 7. (5) Hypothyroidism: Code(s): E03.9 - Hypothyroidism, unspecified Status: Chronic Assessment and Plan: Continue home levothyroxine. (6) GERD (gastroesophageal reflux disease): Qualifiers: Esophagitis presence: without esophagitis Qualified Code(s): K21.9 - Gastro-esophageal reflux disease without esophagitis Code(s): K21.9 - Gastro-esophageal reflux disease without esophagitis Status: Chronic Assessment and Plan: No acute issues. Continue PPI. (7) Hypertension: Code(s): I10 - Essential (primary) hypertension Status: Chronic Assessment and Plan: BP stable, last 123/53. Continue home amlodipine. (8) Rheumatoid arthritis: Code(s): M06.9 - Rheumatoid arthritis, unspecified Status: Chronic Assessment and Plan: Continue home Plaquenil. (9) Abdominal pain: Code(s): R10.9 - Unspecified abdominal pain Status: Chronic Assessment and Plan: She has experienced ongoing abdominal discomfort after eating with associated nausea for which she has followed with Dr Welch's office for. Recent EGD and colonoscopy April 2020 grossly unremarkable but biopsies show evidence of possible mildly active inflammatory bowel disease. Recent NM gastric emptying study shows delayed gastric emptying. Continue supportive care with her home PRN compazine. No acute issues today. Subjective Date/time seen: 06/20/20 1245 Interval history: Ms. Dobbs is a 69yo F admitted for left foot ulcer. L foot a bit edematous today and she notes her toe is a little more painful compared to yesterday. Her L calf/leg is less sore. Abdominal pain and nausea has subsided for today -this is chronic and she has good and bad days wi
[2020-06-20 14:00] VITALS: BP 149/71; PULSE 94; RESP 18; TEMP 36.3; O2SAT 100
[2020-06-20] MEDS: PROCHLORPERAZINE MALEATE 5 MG TABLET PO (16:01)
[2020-06-20 16:17] LABS: Glucose Point of Care 262 (65-105)
[2020-06-20 21:48] VITALS: BP 148/64; PULSE 108; RESP 18; TEMP 36.9; O2SAT 97
[2020-06-20] MEDS: ATORVASTATIN 40 MG TABLET PO (22:15)
[2020-06-20] MEDS: MONTELUKAST SODIUM 10 MG TABLET PO (22:16)
[2020-06-20] MEDS: INSULIN GLARGINE (*BKC) 100 UNITS/ML 40 UNITS SUB-Q (22:21)
[2020-06-20 22:41] LABS: Glucose Point of Care 239 (65-105)
[2020-06-21 00:27] VITALS: O2SAT 96
[2020-06-21 06:00] VITALS: BP 143/60; PULSE 84; RESP 18; TEMP 36.4; O2SAT 98
[2020-06-21] MEDS: LEVOTHYROXINE SODIUM 100 MCG TABLET PO (06:27)
[2020-06-21 07:49] LABS: Glucose Point of Care 177 (65-105)
[2020-06-21] MEDS: CHOLECALCIFEROL 1,000 UNITS TABLET 5000 UNITS PO (08:46)
[2020-06-21] MEDS: amLODIPine BESYLATE 2.5 MG TABLET PO (08:46)
[2020-06-21] MEDS: ASPIRIN 81 MG ENTERIC TABLET PO (08:46)
[2020-06-21] MEDS: DULoxetine HCL 20 MG CAPSULE.DR PO (08:47)
[2020-06-21] MEDS: GABAPENTIN 300 MG CAPSULE 600 MG PO ×2 (08:47→20:51)
[2020-06-21] MEDS: ENOXAPARIN 40 MG/0.4 ML SYRINGE SUB-Q (08:47)
[2020-06-21] MEDS: FUROSEMIDE 20 MG TABLET PO (08:47)
[2020-06-21] MEDS: HYDROXYCHLOROQUINE SULFATE 200 MG TABLET PO ×2 (08:47→17:07)
[2020-06-21 08:48] VITALS: PULSE 84
[2020-06-21] MEDS: MAGNESIUM OXIDE 200 MG TABLET PO ×2 (08:48→20:51)
[2020-06-21] MEDS: PANTOPRAZOLE 40 MG TABLET PO (08:48)
[2020-06-21] MEDS: METOPROLOL SUCCINATE EXT REL 25 MG TABCR PO (08:48)
--- NOTE | 2020-06-21 11:37 | PM.IMPN ---
Progress Note: A&P Assessment and Plan (1) Skin ulcer of left great toe with necrosis of muscle: Code(s): L97.523 - Non-pressure chronic ulcer of other part of left foot with necrosis of muscle Status: Acute Assessment and Plan: Small ulceration with necrosis to L great toe present for around 3 weeks per patient. Appreciate orthopedic recommendations. Noted plan to continue IV antibiotics and have patient follow up for her scheduled appointment with vascular surgeon, Dr Hanna. Discussed case with Dr Martinez yesterday; noted he spoke with Dr Hanna's office, obtained CTA runoff and wants her to take these results with her to her appointment with Dr Hanna, which he was able to arrange earlier appointment 06/29/20. He recommends she does not require inpatient transfer at this time and short-interval outpatient vascular surgery follow up is appropriate - she will continue IV antibiotics until then. Appreciate infectious disease recommendations. Changed to IV zosyn (day 3) and noted his recommendation for continuing this for 10 days. (2) Cellulitis of great toe, left: Code(s): L03.032 - Cellulitis of left toe Status: Chronic Assessment and Plan: Secondary to above. See treatment plan above. (3) Diabetes mellitus: Code(s): E11.9 - Type 2 diabetes mellitus without complications Status: Chronic Assessment and Plan: A1c is 6.2%. Continue long-acting insulin lower than her home dose, titrate up as needed. Continue to monitor with accu-cheks and adjust treatment as needed, cover with SSI. (4) Chronic anemia: Code(s): D64.9 - Anemia, unspecified Status: Chronic Assessment and Plan: Chronic on review of previous labs. No evidence of acute blood loss. Monitor CBC, consider transfusion if Hgb < 7. (5) Hypothyroidism: Code(s): E03.9 - Hypothyroidism, unspecified Status: Chronic Assessment and Plan: Continue home levothyroxine. (6) GERD (gastroesophageal reflux disease): Qualifiers: Esophagitis presence: without esophagitis Qualified Code(s): K21.9 - Gastro-esophageal reflux disease without esophagitis Code(s): K21.9 - Gastro-esophageal reflux disease without esophagitis Status: Chronic Assessment and Plan: No acute issues. Continue PPI. (7) Hypertension: Code(s): I10 - Essential (primary) hypertension Status: Chronic Assessment and Plan: BP stable, last 143/60. Continue home amlodipine. (8) Rheumatoid arthritis: Code(s): M06.9 - Rheumatoid arthritis, unspecified Status: Chronic Assessment and Plan: Continue home Plaquenil. (9) Abdominal pain: Code(s): R10.9 - Unspecified abdominal pain Status: Chronic Assessment and Plan: She has experienced ongoing abdominal discomfort after eating with associated nausea for which she has followed with Dr Welch's office for. Recent EGD and colonoscopy April 2020 grossly unremarkable but biopsies show evidence of possible mildly active inflammatory bowel disease. Recent NM gastric emptying study shows delayed gastric emptying. Continue supportive care with her home PRN compazine. No acute issues today. Subjective Date/time seen: 06/21/20 11:30 Interval history: Ms. Dobbs is a 69yo F admitted for left foot ulcer. She tells me she is feeling much better than yesterday . Her left foot is less swollen. She denies pain to foot at present. Abdominal pain and nausea has subsided for today -this is chronic and she has good and bad
[2020-06-21] MEDS: INSULIN ASPART (*BKC) 100 UNITS/ML SUB-Q ×2 (12:12→17:05)
[2020-06-21 12:13] LABS: Glucose Point of Care 226 (65-105)
[2020-06-21 14:00] VITALS: BP 135/68; PULSE 92; RESP 20; TEMP 36.9; O2SAT 98
[2020-06-21 16:20] LABS: Glucose Point of Care 209 (65-105)
[2020-06-21] MEDS: INSULIN GLARGINE (*BKC) 100 UNITS/ML 40 UNITS SUB-Q (20:50)
[2020-06-21] MEDS: ATORVASTATIN 40 MG TABLET PO (20:51)
[2020-06-21] MEDS: MONTELUKAST SODIUM 10 MG TABLET PO (20:51)
[2020-06-21 20:53] LABS: Glucose Point of Care 277 (65-105)
[2020-06-21] MEDS: MORPHINE SULFATE (*CRX) 2 MG/ML INJ IV PUSH (20:53)
[2020-06-21 22:00] VITALS: BP 126/53; PULSE 95; RESP 20; TEMP 37.6; O2SAT 97
[2020-06-22] VITALS: BP 117/52; PULSE 87; RESP 20; TEMP 37.8; O2SAT 97
[2020-06-22 00:30] VITALS: PULSE 88; O2SAT 98
--- NOTE | 2020-06-22 01:15 | PC.NURSE ---
called Dr. Leger for tylenol order due to patient having a climbing fever tonight. Orders placed and will administer accordingly. -AEW RN
[2020-06-22 01:58] VITALS: TEMP 37.8
[2020-06-22] MEDS: ACETAMINOPHEN 325 MG TABLET 650 MG PO (01:58)
[2020-06-22 03:59] LABS: Glucose Point of Care 165 (65-105)
[2020-06-22] MEDS: LEVOTHYROXINE SODIUM 100 MCG TABLET PO (05:55)
[2020-06-22 06:00] VITALS: BP 116/46; PULSE 79; RESP 20; TEMP 36.6; O2SAT 97
[2020-06-22 06:28] LABS: Anion Gap 4 mmol/L (8-16); Blood Urea Nitrogen 14 mg/dL (7-17); Carbon Dioxide 30 mmol/L (22-30); Chloride 102 mmol/L (98-107); Estimated CRCL calculation 49 ml/min; Estimated Glomerular Filt Rate 49; Glucose 197 mg/dL (65-105); Magnesium 1.8 mg/dL (1.6-2.3); Potassium 3.5 mmol/L (3.4-5.0); Sodium 136 mmol/L (137-145)
[2020-06-22 08:04] LABS: Glucose Point of Care 160 (65-105)
[2020-06-22] MEDS: amLODIPine BESYLATE 2.5 MG TABLET PO (08:28)
[2020-06-22] MEDS: DULoxetine HCL 20 MG CAPSULE.DR PO (08:28)
[2020-06-22] MEDS: CHOLECALCIFEROL 1,000 UNITS TABLET 5000 UNITS PO (08:28)
[2020-06-22] MEDS: FUROSEMIDE 20 MG TABLET PO (08:28)
[2020-06-22] MEDS: ASPIRIN 81 MG ENTERIC TABLET PO (08:28)
[2020-06-22] MEDS: ENOXAPARIN 40 MG/0.4 ML SYRINGE SUB-Q (08:28)
[2020-06-22 08:29] VITALS: PULSE 79
[2020-06-22] MEDS: HYDROXYCHLOROQUINE SULFATE 200 MG TABLET PO (08:29)
[2020-06-22] MEDS: METOPROLOL SUCCINATE EXT REL 25 MG TABCR PO (08:29)
[2020-06-22] MEDS: PANTOPRAZOLE 40 MG TABLET PO (08:29)
[2020-06-22] MEDS: MAGNESIUM OXIDE 200 MG TABLET PO (08:29)
[2020-06-22] MEDS: GABAPENTIN 300 MG CAPSULE 600 MG PO (08:29)
--- NOTE | 2020-06-22 09:24 | PM.PNORT ---
Progress Note: A&P Assessment and Plan (1) Peripheral arterial disease: Code(s): I73.9 - Peripheral vascular disease, unspecified Status: Acute Assessment and Plan: Continue with supportive care for the toe. Daily dressing change with Betadine. Weight-bearing as tolerated. Okay for discharge with follow-up vascular surgery. Follow up with Dr. Hanna on June 29. IV antibiotics at discharge. Follow up as needed pending vascular surgery consult and decision for plan of care. Patient aware. Subjective Subjective Date/Time Seen: 06/22/20 09:15 Patient with no new complaints. Hopeful for discharge today. Review of Systems Constitutional: Constitutional: Reports no additional constitutional complaints, Denies chills, Denies fatigue, Denies headache(s) and Denies weakness Eyes: Eyes: Denies change in vision ENT: Reports Normal hearing present and Denies headache(s) Cardiovascular: Cardiovascular: Denies chest pain and Denies dyspnea Respiratory: Respiratory: Denies cough, Denies dyspnea and Denies wheezing Gastrointestinal: Gastrointestinal: Reports as per HPI, Denies constipation, Denies diarrhea and Denies nausea Genitourinary: Genitourinary: Denies hematuria, Denies dysuria and Denies urinary urgency Musculoskeletal: Musculoskeletal: Reports as per HPI, Denies numbness and Denies tingling Integumentary/Breasts: Skin/Breast: Reports as per HPI Neurologic: Reports as per HPI, Reports Normal hearing present, Denies headache(s), Reports numbness, Reports tingling and Denies weakness Psychiatric: Psychiatric: Reports no additional psychiatric complaints Endocrine: Endocrine: Reports no additional endocrine complaints and Denies fatigue Hematologic/Lymphatic: Hematologic/Lymphatic: Reports no additional hematologic/lymphatic complaints Allergic/Immunologic: Allergic/Immunologic: Reports no additional allergic/immunologic complaints and Denies wheezing Exam Const: General: cooperative and comfortable HENMT: Mouth: Yes moist mucous membranes Eyes: General: appearance normal, both eyes and all related structures Neck: Neck: supple and no JVD Resp: Effort & Inspection: normal respiratory effort Cardio: Rate: regular rate Rhythm: regular rhythm GI: Inspection: non-distended GI Palp: Yes Soft to palpation and No Tenderness to palpation present (GI) Neuro: General: gait normal Cognition (Neuro): normal cognition Speech: normal speech Extrem: Left lower extremity: ankle Details: tenderness Location: of the medial malleolus and swelling and foot Details: tenderness Location: of the great toe (hallux with necrosis/dusky ), abnormal ROM of toe Details: pain with active ROM and pain with passive ROM, warmth, vascular exam Details: dorsalis pedis pulse present (very faint/palpable ) and posterior tibial pulse present (very faint/palpable ); not cool and motor-sensory exam two point discrimination abnormal and light-touch abnormal; abnormal capillary refill; abnormal capillary refill Other: Left hallux with small ulceration on the distal plantar aspect with surrounding blood blister. No purulent drainage noted. No malodor. Surrounding hallux with redness and warmth, mild improvement. Pain over the medial malleolus at the site of the previous incision consistent with surgical intervention, potentially posterior tibial tendon repair. Patient with very faint but palpable pedal pulses and posterior tibial tendon pulses. No other wounds noted. Psych: Mental Status: mental status grossly normal Affect: normal affect Objective Data Vital Signs Vital Signs: Vital Signs - 24 hr 06/21/20 14:00 06/21/20 22:00 06/22/20 00:00 Temperature 36.9 C 37.6 C H 37.8 C H Pulse Rate 92 95 87 Respiratory Rate 20 20 20 Blood Pressure 135/68 126/53 L 117/52 L Pulse Oximetry 98 97 97 06/22/20 00:30 06/22/20 01:58 06/22/20 06:00 Temperature 37.8 C H 36.6 C Pulse Rate 88 79 Respiratory Rate 20 Blood
[2020-06-22 12:17] LABS: Glucose Point of Care 252 (65-105)
[2020-06-22] MEDS: INSULIN ASPART (*BKC) 100 UNITS/ML SUB-Q (12:22)
[2020-06-22 14:00] VITALS: BP 161/78; PULSE 85; RESP 16; TEMP 36.5; O2SAT 98
[2020-06-22] MEDS: LIDOCAINE HCL 1% PF INJ 5 ML VIAL INFILTRATE (14:25)
--- NOTE | 2020-06-22 14:51 | PM.DS ---
DS: Admitting Diagnosis Admitting Diagnosis Admitting Diagnosis: Left diabetic foot wound DS: Discharge Diagnosis Discharge Diagnosis (1) Skin ulcer of left great toe with necrosis of muscle: Code(s): L97.523 - Non-pressure chronic ulcer of other part of left foot with necrosis of muscle Status: Acute Assessment and Plan: Date of Admission 06/17/20 Date of Discharge 06/22/20 Ms. Dobbs is a pleasant 70yo F with history of insulin-dependent type 2 diabetes, chronic anemia, hypothyroidism, hypertension, chronic abdominal pain with nausea, vomiting, diarrhea recent diagnosis of gastroparesis followed by GI, rheumatoid arthritis who presented to the ED for evaluation of left diabetic foot wound. She described she has been seen for this wound by orthopedic surgery at [place] and she was referred to a vascular surgeon, Dr. Hanna, also at [place] and has an upcoming appointment with him. She describes she had the left toe wound present for weeks and wound started to become discolored 2 days prior to arrival. She was evaluated by orthopedic surgery, Dr. Martinez. Dr. Martinez contacted Dr. Hanna's office who was able to reschedule appointment for her to be seen earlier next week. She was evaluated by Infectious Disease, recommended IV Zosyn. Dr. Martinez ordered CTA abdominal aorta runoff as requested by Dr. Hanna's office, detailed below. Patient is aware left great toe may require amputation after evaluation by her vascular specialist. Midline was placed to continue antibiotics with IV Zosyn in the interim until her vascular surgery evaluation. She is hemodynamically stable for discharge on 06/22/2020 with instructions for vascular surgery follow-up, daily dressing changes with Betadine, and home health arranged for IV antibiotics through 06/28/20. Continue orthopedic recommendations. Noted plan to continue IV antibiotics and have patient follow up for her scheduled appointment with vascular surgeon, Dr Hanna. Discussed case with Dr Martinez; noted he spoke with Dr Hanna's office, obtained CTA runoff and wants her to take these results with her to her appointment with Dr Hanna, which he was able to arrange earlier appointment 06/29/20. He recommends she does not require inpatient transfer at this time and short-interval outpatient vascular surgery follow up is appropriate - she will continue IV antibiotics until then. Appreciate infectious disease recommendations. Midline placed, discharged to continue IV Zosyn (day 4 of 10) through 06/28/20. (2) Cellulitis of great toe, left: Code(s): L03.032 - Cellulitis of left toe Status: Chronic Assessment and Plan: Secondary to above. See treatment plan above. (3) Diabetes mellitus: Code(s): E11.9 - Type 2 diabetes mellitus without complications Status: Chronic Assessment and Plan: A1c is 6.2%. Educated on the importance of tight glycemic control for wound healing. Continue monitoring blood sugars regularly and follow-up with PCP. (4) Chronic anemia: Code(s): D64.9 - Anemia, unspecified Status: Chronic Assessment and Plan: Chronic on review of previous labs. No evidence of acute blood loss. (5) Hypothyroidism: Code(s): E03.9 - Hypothyroidism, unspecified Status: Chronic Assessment and Plan: Continue home levothyroxine. (6) GERD (gastroesophageal reflux disease): Qualifiers: Esophagitis presence: without esophagitis Qualified Code(s): K21.9 - Gastro-esophageal reflux disease without esophagitis Code(s): K21.9 - Gastro-esophageal reflux disease without esophagitis Status: Chronic Assessment and Plan: No acute issues. Con
--- NOTE | 2020-06-30 09:21 | PC.NURSE ---
Blood cx are negative.
== END 2020-06-22 16:00 | disposition home health service (06) | DRG 603 ==
LOC: ANHED 23:18 → ANH3MEDSUR 06-18 00:05
PROVIDERS: Physician Assistant; Admitting Provider Family Medicine; Emergency Provider Emergency Medicine; PCP Internal Medicine; Visit Provider Internal Medicine
DX: L03.032 Cellulitis of left toe (principal); E11.621 Type 2 diabetes mellitus with foot ulcer; L97.523 Non-pressure chronic ulcer of other part of left foot with necrosis of muscle; E11.42 Type 2 diabetes mellitus with diabetic polyneuropathy; E11.51 Type 2 diabetes mellitus with diabetic peripheral angiopathy without gangrene; E11.43 Type 2 diabetes mellitus with diabetic autonomic (poly)neuropathy; K31.84 Gastroparesis; D64.9 Anemia, unspecified; E03.9 Hypothyroidism, unspecified; K21.9 Gastro-esophageal reflux disease without esophagitis; I10 Essential (primary) hypertension; M06.9 Rheumatoid arthritis, unspecified; G89.29 Other chronic pain; I25.2 Old myocardial infarction; Z79.4 Long term (current) use of insulin; Z79.82 Long term (current) use of aspirin; Z87.891 Personal history of nicotine dependence
CPT/HCPCS: 36415; 36569; 73630; 75635; 80048; 80053; 82948; 83036; 83605; 83735; 85025; 85610; 85730; 87040; 93922; 93971; 96361; 96365; 96366; 96372; 96375; 96376; 99285; A9270; C1751; G0378; J0131; J0743; J1650; J1815; J2270; J2543; J3475; J7030; Q9967

== ENCOUNTER 2020-10-13 16:15 | Outpatient (CLI) | payer MEDICARE, BC, SELFPAY ==
[2020-10-13 17:00] LABS: Alanine Aminotransferase 23 U/L (4-35); Alkaline Phosphatase 135 U/L (38-126); Anion Gap 7 mmol/L (8-16); Aspartate Amino Transferase 35 U/L (14-36); Basophils Percent Auto 0.7 % (0.2-1.2); Bilirubin,Total 0.2 mg/dL (0.2-1.3); Blood Urea Nitrogen 28 mg/dL (7-17); Calcium 8.9 mg/dL (8.4-10.2); Carbon Dioxide 25 mmol/L (22-30); Chloride 103 mmol/L (98-107); Eosinophils Absolute Auto 0.3 K/mm3 (0-0.3); Eosinophils Percent Auto 4.6 % (0-4.4); Estimated Glomerular Filt Rate 55; Glucose 206 mg/dL (65-110); Hematocrit 31.5 % (37.0-47.0); Immature Granulocyte Absolute 0.02 K/mm3 (0.00-0.031); Immature Granulocyte Percent A 0.3 % (0-0.5); Lymphocytes Absolute Auto 2.14 K/mm3 (0.9-3.2); Lymphocytes Percent Auto 34.9 % (18.3-44.2); Mean Corpuscular HGB Conc 31.7 g/dl (32-36); Mean Corpuscular Volume 91.3 fl (80-100); Mean Platelet Volume 11.9 fl (7.4-10.4); Monocytes Absolute Auto 0.5 K/mm3 (0.1-0.6); Monocytes Percent Auto 7.7 % (2.6-8.5); Neutrophils Absolute Auto 3.2 K/mm3 (1.3-6.7); Neutrophils Percent Auto 51.8 % (45.5-73.1); Platelet Count Result 165 k/mm3 (150-375); Potassium 4.4 mmol/L (3.4-5.0); Red Blood Count 3.45 M/mm3 (4.2-5.4); Red Cell Distribution Width 14.1 % (11.5-14.5); Sodium 135 mmol/L (137-145); White Blood Count 6.1 K/mm3 (4.5-10.0)
[2020-10-13 17:13] LABS: Hemoglobin A1C 6.3 % (<5.7)
[2020-10-13 17:16] LABS: Add Urine Microscopic? YES; Appearance Urine Clear (Clear); Bacteria Urine Trace /hpf; Bilirubin Urine Negative (Negative); Blood Urine Negative (Negative); Color Urine Yellow (Yellow); Glucose Urine UA Negative (Negative); Ketones Urine Negative (Negative); Leukocyte Esterase Ur 2+ LEU/UL (Negative); Mucus Urine Rare /lpf; Nitrate Urine Negative (Negative); Protein Urine 2+ mg/dL (Negative); RBC Urine 0-2 /hpf (0-2); Specific Grav Ur 1.018 (1.001-1.035); Squamous Epithelial Cell Urine Few /hpf (Few); Urobilinogen Urine Negative mg/dL (<2.0); WBC Urine 16-20 /hpf
== END 2020-10-13 16:16 | disposition home or self-care (01) ==
LOC: ANHLAB 16:18
PROVIDERS: PCP Internal Medicine; Visit Provider Clinical Nurse Specialist
DX: E11.52 Type 2 diabetes mellitus with diabetic peripheral angiopathy with gangrene (principal); Z79.4 Long term (current) use of insulin; N39.0 Urinary tract infection, site not specified; I10 Essential (primary) hypertension; R39.9 Unspecified symptoms and signs involving the genitourinary system
CPT/HCPCS: 36415; 80053; 81001; 83036; 85025; 87086; 87147; 87181; 87186

== ENCOUNTER 2020-10-26 08:30 | Outpatient (RCR) | payer MEDICARE, BC, SELFPAY ==
--- NOTE | 2020-08-24 10:13 | PTOPEVAL ---
PHYSICAL THERAPY EVALUATION AND PLAN OF CARE Thank you for referring Aleyda Dobbs to [facility] [place] The patient is scheduled to be seen for therapy? 2x/week for 4 weeks. Please review, sign, date and return this plan of care EARNESTINE. I agree with and certify that the following plan of care is medically necessary. Referring Physician Date Attending Provider: Charles Armendariz, DO Assessment Status Evaluation Outpatient Past Medical History Neurological History Hx Other Neurological Disorders Yes: neuropathy Cardiovascular History Hx Congestive Heart Failure Yes Hx Hypercholesterolemia Yes Hx Hypertension Yes Hx Myocardial Infarction Yes: 2004 Respiratory History Hx Asthma Yes Hx Sleep Apnea Yes Gastrointestinal History Hx Cholecystectomy Yes Hx Gastroesophageal Reflux Disease Yes Hx Hernia Yes Genitourinary History Hx Urinary Tract Infection Yes Musculoskeletal History Hx Amputation Yes: left great toe Hx Orthopedic Surgery Yes: knee arthroscopy Hx Rheumatoid Arthritis Yes Hx Other Musculoskeletal Disorders Yes: bilat carpal tunnel surg, RTC repair, hammer toe repair , right charcot foot Hematological History Hx Hematological Disorders No Significant History Endocrine History Hx Diabetes Yes: Insulin Hx Hypothyroidism Yes HEENT History Hx HEENT Disorders No Significant History Integumentary History Hx Skin Disorders No Significant History Reproductive History Hx Post Menopausal Yes Psychosocial History Hx Psychiatric Disorders No Significant History Pain History Has Past Pain Affected Your Daily Life Yes: RA Anesthesia History Hx Anesthesia Reactions No Significant History Other History Hx Implanted Device Yes: Toes- Screws-Bilat Hx Other Medical Conditions Yes: sonya charcot tooth disease Diagnosis bilateral knee pain Onset chronic Subjective Information Aleyda is here today because Query Text:As Reported By Patient/ of weakness in legs and pain Family in her knees. States that her symptoms are chronic. She fell 3x in 2018-19 due to these symptoms. She states she can go up the stairs but she has to pull herself up because of knee pain. She cannot lift her legs very high. She also has a hard time standing in the shower and she most recently
--- NOTE | 2020-09-10 12:12 | PCPTNOTE ---
Patient called & cancelled scheduled appointment this date due to having to [place] the airport.
--- NOTE | 2020-09-17 13:45 | PCPTNOTE ---
Patient did not show up for scheduled appointment this date.; left voicemail for reminder on next appointment.
--- NOTE | 2020-09-24 13:10 | PTOPEVAL ---
PHYSICAL THERAPY PLAN OF CARE UPDATE AND PROGRESS REPORT Thank you for referring Aleyda Dobbs to [facility].? The patient is scheduled to be seen for therapy? 2x/week for 4 weeks. Please review, sign, date and return this plan of care EARNESTINE. I agree with and certify that the following plan of care is medically necessary. Referring Physician Date Attending Provider: Charles Armendariz, DO Diagnosis bilateral knee pain Onset chronic Subjective Information Aleyda states that she still Query Text:As Reported By Patient/ has quite a bit of pain in her Family knees. There are some days the pain is in different areas . 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 Continue to have difficulty standing and walking after sitting too long . Self Report Pain Assessment Bilateral Knee(s) Reported Pain Level 6 Pain Description Aching Pain Frequency Chronic,Continuous Pain Aggravating Factors Exercise/Activity,Walking, Weight Bearing/Standing Pain Behaviors Guarding Pain Score Pain Score 6: Self Report Interventions Used Interventions Used By Clinicians Exercise,Heat,Manual Therapy Techniques Lower Extremity Range of Motion General Lower Extremity Range of Motion Gross Lower Extremity Range of Motion bilateral foot arches have Comments very limited flexion and extension and toes are very limited in ROM; left ankle plantar flexion = 25deg; dorsifelxion = 10deg Lower Extremity Muscle Strength Testing Hip Strength Right Hip Flexion Strength 4+ Good + Hip Extension Strength 3+ Fair + Hip Abduction Strength 4+ Good + Left Hip Flexion Strength 4+ Good + Hip Extension Strength 3- Fair - Hip Abduction Strength 4- Good - Knee Strength Bilateral Knee Flexion Strength 4+ Good + Knee Extension Strength 4+ Good + Muscle Length Testing Muscle Length Testing Right Prone Knee Flexor Muscle Length ( 100 degrees) Left Prone Knee Flexor Muscle Length ( 90 degrees) Palpation Assessment Palpation Palpation trigger points noted to bilateral quadriceps and
--- NOTE | 2020-10-21 16:06 | PCPTNOTE ---
Patient called & cancelled scheduled appointment this date due to having class.
--- NOTE | 2020-10-26 08:56 | PTOPEVAL ---
PHYSICAL THERAPY DISCHARGE NOTE Thank you for referring Aleyda Dobbs to [facility].? Please review, sign, date and return this plan of care EARNESTINE. I agree with and certify that the following plan of care is medically necessary. Referring Physician Date Attending Provider: Charles Armendariz, DO Discharge Diagnosis bilateral knee pain Onset chronic Subjective Information States she is feeling a lot Query Text:As Reported By Patient/ better. 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 She only needs to grab the bar in the shower when she puts her head back with her eyes closed. Self Report Pain Assessment Bilateral Knee(s) Reported Pain Level 0 Additional Pain Comments only has discomfort muscle soreness with activities Pain Score Pain Score 0: Self Report Interventions Used Interventions Used By Clinicians Exercise,Heat,Manual Therapy Techniques Lower Extremity Muscle Strength Testing Hip Strength Right Hip Flexion Strength 5 Normal Hip Extension Strength 4 Good Hip Abduction Strength 4+ Good + Left Hip Flexion Strength 5 Normal Hip Extension Strength 4 Good Hip Abduction Strength 4+ Good + Knee Strength Bilateral Knee Flexion Strength 5 Normal Knee Extension Strength 5 Normal Muscle Length Testing Muscle Length Testing Right Prone Knee Flexor Muscle Length ( 105 degrees) Left Prone Knee Flexor Muscle Length ( 95 degrees) Balance Assessment Garcia Balance Assessment Sitting to Standing Independent w/out Hands Unsupported Stance Ability Safely- 2 minutes Sitting Unsupported, Feet on Floor Safely- 2 minutes Standing to Sitting Safely, Minimal Hand Use Transfer Ability Safely, Hand Use Unsupported Stance- Eyes Closed 3 seconds Unsupported Stance- Feet Together Independent, 1 minute Reaching Forward while Standing Safely, 5 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
== END 2020-10-26 11:24 | disposition home or self-care (01) ==
LOC: ANHPT 08:30
PROVIDERS: PCP Internal Medicine; Visit Provider Internal Medicine
DX: M25.561 Pain in right knee (principal); M25.562 Pain in left knee
CPT/HCPCS: 97110; 97140; 97162

== ENCOUNTER 2020-11-10 09:04 | Outpatient (CLI) | payer MEDICARE, BC, SELFPAY ==
--- NOTE | ~2020-11-10 | XR_ITS ---
XR knee LT min 4V 11/10/2020 09:25 Indication: Left knee pain Procedure: 4 views left knee Comparison: 07/13/2018 Findings: There is moderate tricompartment osteoarthritis of the left knee. No fracture or traumatic malalignment. No significant joint effusion. There are extensive arterial calcifications. Impression: 1: Moderate osteoarthritis of the left knee. Reviewed, dictated and finalized at location A. Impression: 1: Moderate osteoarthritis of the left knee.
--- NOTE | ~2020-11-10 | XR_ITS ---
XR ankle RT min 3V DATE: 11/10/2020 09:25 INDICATION: Fall. Left knee and ankle injury, pain TECHNIQUE: 4 views COMPARISON: 02/15/2018 right foot FINDINGS: There is intra-articular fracture, avascular necrosis or osteochondritis dissecans of the l ateral aspect of the talar dome. There is prominent lucency surrounding the articular fragment of the lateral dome, but minimal depression of this fragment. Multiple plates and screws are noted at the hindfoot, including a long screw from the posterior calca neus into the talar dome anteriorly, 2 screws extending through the medial tarsal area into the later al talar dome and lateral tarsal plate secured by 5 screws extending through the talus and cuboid bon e inferiorly calcaneus and tarsometatarsal area. Plantar calcaneal enthesopathy. There is extensive arterial calcification. IMPRESSION: Fracture of lateral talar dome, possibly secondary to avascular necrosis and/or osteochon dritis dissecans Reviewed, dictated and finalized at location A. IMPRESSION: Fracture of lateral talar dome, possibly secondary to avascular nec rosis and/or osteochondritis dissecans
== END 2020-11-10 09:05 | disposition home or self-care (01) ==
PROVIDERS: PCP Internal Medicine; Visit Provider Clinical Nurse Specialist
DX: M25.579 Pain in unspecified ankle and joints of unspecified foot (principal); M17.12 Unilateral primary osteoarthritis, left knee
CPT/HCPCS: 73564; 73610

== ENCOUNTER 2021-01-12 18:36 | Observation (INO) | payer MEDICARE, BC, SELFPAY ==
--- NOTE | 2021-01-12 | ECG_ITS ---
Measurements Intervals [place] Rate: 89 P: 11 [place]: 167 QRS: -4 QRSD: 98 T: 29 QT: 414 QTc: 506 Interpretive Statements SINUS RHYTHM DELAYED PRECORDIAL R/S TRANSITION BORDERLINE T WAVE ABNORMALITY- INFERIOR LEADS BORDERLINE ECG Electronically Signed On 01-13-2021 6:22:52 NET MOBILE DEVELOPER by Dewayne Jacobson D.O.
--- NOTE | ~2021-01-12 | XR_ITS ---
EXAMINATION: XR chest 2V DATE: 01/12/2021 19:20 INDICATION: Shortness of breath. Left-sided chest pain. TECHNIQUE: PA and lateral views of the chest were obtained. COMPARISON: Chest radiograph and CT dated 06/19/2019 FINDINGS: Unchanged calcified nodule in the lateral right lower lung zone consistent with old granulomatous dis ease. No other airspace opacities, pulmonary edema, pleural effusion or pneumothorax. The cardiomedia stinal silhouette is normal. Postoperative changes in the abdomen with cholecystectomy clips in right upper quadrant and multiple small metallic coils consistent with prior ventral hernia repair. Mild t horacic spondylosis. IMPRESSION: 1. No acute cardiopulmonary disease. Reviewed, dictated and finalized at location A. CTOR OF RECRUITMENT
--- NOTE | ~2021-01-12 | XR_ITS ---
EXAMINATION:XR_CERV2-3V_CR DATE: 01/12/2021 20:47 INDICATION: Neck pain TECHNIQUE: AP, lateral and odontoid views of the cervical spine are provided. COMPARISON: 02/28/2006 FINDINGS: Alignment is normal. Odontoid is intact. Normal atlantoaxial interval. Vertebral body heights are no rmal. Mild disc height loss with endplate osteophytes at C5-C6 and C6-C7. Bilateral multilevel mild c ervical facet and uncovertebral osteoarthritis. Prevertebral soft tissues are normal. Likely left ca rotid atherosclerotic calcification. IMPRESSION: 1. Mild cervical spondylosis. Reviewed, dictated and finalized at location A. Y REPAIRER
--- NOTE | ~2021-01-12 | US_ITS ---
EXAMINATION: US venous doppler [facility] DATE: 01/13/2021 15:01 INDICATION: Tachycardia. Shortness of breath. TECHNIQUE: Grayscale ultrasound images without and with compression and Doppler ultrasound images of the bilateral lower extremity veins were obtained. COMPARISON: None. FINDINGS: The visualized portions of right common femoral vein, profunda (deep) femoral vein, femoral vein, pop liteal vein, posterior tibial veins, peroneal veins, gastrocnemius vein and greater saphenous vein ou tflow are patent. The visualized portions of left common femoral vein, profunda femoral vein, femoral vein, popliteal v ein, posterior tibial veins, peroneal veins, gastrocnemius vein and greater saphenous vein outflow ar e patent. IMPRESSION: 1. No deep venous thrombosis in either lower limb. Reviewed, dictated and finalized at location A. DAY BABYSITTER
--- NOTE | ~2021-01-12 | CT_ITS ---
EXAMINATION: CTA chest PE abdomen pel DATE: 01/12/2021 23:18 INDICATION: Tachycardia, vomiting and diarrhea. TECHNIQUE: Computed tomography (CT) pulmonary angiogram of the chest was performed with 100 mL Omnipa que-350 intravenous contrast. Additional 3D reconstructions utilizing coronal maximum intensity proje ction (MIP) were performed. CT of the abdomen and pelvis was performed with intravenous contrast util izing the same contrast bolus following a short delay. Automated exposure control and iterative recon struction technique were employed. The dose-length product was 2305.46 mGy-cm. COMPARISON: CT studies dated 06/19/2019 and 06/19/2020 FINDINGS: Chest: Good contrast opacification of the pulmonary arteries. There is moderate streak artifact from dense c ontrast in the superior vena cava and right atrium. Mild scattered respiratory motion artifact. Toget her this mildly decreases sensitivity in some of the smaller subsegmental pulmonary arteries. No pulm onary embolism. Calcified right lower lobe nodule along with calcified right hilar and mediastinal ly mph nodes consistent with old granulomatous disease. No pneumonia, pulmonary edema, pleural effusion or pneumothorax. Cardiomegaly. Atherosclerotic coronary artery calcifications. Aortic valve and dolly l annular calcification. Enlargement of the central pulmonary arteries consistent with pulmonary stevie rial hypertension. Thoracic aorta is normal in caliber with no dissection. No pathologically enlarged thoracic lymphadenopathy. A few old anterior right rib fractures. Abdomen/pelvis: Cholecystectomy clips in right upper quadrant. Postoperative change of extensive ventral hernia mesh repair. From the subcostal the upper abdomen to the pelvis. No significant interval change since 06/18 in a likely benign 4.3 x 3.8 cm multilobulated cystic lesion with a few internal calcifications in the spleen. Liver, pancreas, bilateral adrenal glands and kidneys are normal. Fluid in the otherw ise normal-appearing colon consistent with given history of diarrhea with no evident wall thickening to suggest colitis. Small bowel and appendix are normal. Uterus and bilateral adnexa are unremarkable . Diffuse mild bladder wall thickening which could be seen with cystitis either acute or chronic. No free intraperitoneal gas or fluid. No pathologically enlarged abdominal or pelvic lymphadenopathy. Mo derate lumbar spondylosis. IMPRESSION: 1. No pulmonary embolism. Sensitivity mildly decreased in some of the smaller subsegmental pulmonary arteries due to small mild respiratory motion. 2. Cardiomegaly and enlargement of the central pulmonary arteries consistent with pulmonary arterial hypertension. 3. Mild wall thickening of the bladder which could be seen with cystitis either acute or chronic. 4. Fluid in the otherwise unremarkable colon consistent with given history of diarrhea. Reviewed, dictated and finalized at location A. OBIOLOGY LAB ANALYST IMPRESSION: 1. No pulmonary embolism. Sensitivity mildly decreased in some of the smaller s ubsegmental pulmonary arteries due to small mild respiratory motion. 2. Cardiomegaly and enlargement of the central pulmonary arteries consistent wi th pulmonary arterial hypertension. 3. Mild wall thickening of the bladder which could be seen with cystitis either acute or chronic. 4. Fluid in the otherwise unremarkable colon consistent with given history of d iarrhea.
--- NOTE | 2021-01-12 18:39 | ECG_ITS ---
Measurements Intervals [place] Rate: 141 P: 220 IN: 145 QRS: -37 QRSD: 97 T: 62 QT: 297 QTc: 456 Interpretive Statements SUPRAVENTRICULAR TACHYCARDIA LEFT AXIS DEVIATION BORDERLINE R WAVE PROGRESSION, ANTERIOR LEADS ABNORMAL ECG Electronically Signed On 01-12-2021 20:19:45 LAND SURVEYING PARTY CHIEF by Dewayne Jacobson D.O.
[2021-01-12] MEDS: ASPIRIN 81 MG CHEWABLE TABLET 324 MG PO (18:57)
[2021-01-12 19:19] LABS: Basophils Absolute Auto 0.1 K/mm3 (0.0-0.1); Basophils Percent Auto 0.6 % (0.2-1.2); Eosinophils Absolute Auto 0.2 K/mm3 (0-0.3); Eosinophils Percent Auto 2.5 % (0-4.4); Immature Granulocyte Absolute 0.04 K/mm3 (0.00-0.031); Immature Granulocyte Percent A 0.4 % (0-0.5); Lymphocytes Absolute Auto 2.85 K/mm3 (0.9-3.2); Lymphocytes Percent Auto 30.6 % (18.3-44.2); Mean Corpuscular HGB Conc 32.4 g/dl (32-36); Mean Corpuscular Hemoglobin 29.1 pg (26-34); Mean Corpuscular Volume 89.6 fl (80-100); Mean Platelet Volume 11.5 fl (7.4-10.4); Monocytes Absolute Auto 0.7 K/mm3 (0.1-0.6); Monocytes Percent Auto 7.1 % (2.6-8.5); Neutrophils Absolute Auto 5.5 K/mm3 (1.3-6.7); Neutrophils Percent Auto 58.8 % (45.5-73.1); Platelet Count Result 216 k/mm3 (150-375); Red Blood Count 4.13 M/mm3 (4.2-5.4); Red Cell Distribution Width 13.9 % (11.5-14.5); White Blood Count 9.3 K/mm3 (4.5-10.0)
--- NOTE | 2021-01-12 19:19 | ED.GENADULT ---
HPI - General Adult General Chief complaint: Chest Pain Stated complaint: sob, r neck and arm pain Time Seen by Provider: 01/12/21 19:00 Source: patient and RN notes reviewed History of Present Illness HPI narrative: Patient is a 70 y/o female complaining of moderate generalized weakness starting 3-4 days ago. She state that she has to use a walker to get around. She feels her legs are weak and can't support her. She also has some right sided neck pain and arm pain. She had vomiting and diarrhea last week, but those symptoms resolved. Related Data Home Medications Medication Instructions Recorded Confirmed aspirin 81 mg tablet,delayed 81 mg PO DAILY 01/02/19 11/23/20 release cholecalciferol (vitamin D3) 125 5,000 unit PO DAILY 01/02/19 11/23/20 mcg (5,000 unit) tablet multivitamin 1 tablet PO DAILY 01/02/19 11/23/20 omega-3 fatty acids 1,000 mg 1,000 mg PO BID 01/02/19 11/23/20 capsule hydroxychloroquine [Plaquenil] 200 mg PO BID 05/06/20 11/23/20 montelukast [Singulair] 10 mg PO HS 05/06/20 11/23/20 Acid Dobie Man (omeprazole) 20 mg PO DAILY 06/18/20 11/23/20 atorvastatin 40 mg PO HS 06/18/20 11/23/20 duloxetine 20 mg capsule,delayed 20 mg PO DAILY cap 08/06/20 11/23/20 release insulin glargine U-300 conc 300 60 unit SUB-Q HS ml 11/09/20 11/23/20 unit/mL (3 mL) subcutaneous pen amoxicillin 500 mg-potassium 1 tablet PO Q12H 11/23/20 11/23/20 clavulanate 125 mg tablet Allergies Allergy/AdvReac Type Severity Reaction Status Date / Time daptomycin Allergy Intermediate Hives Verified 11/23/20 13:59 valsartan Allergy Intermediate Hives Verified 11/23/20 13:59 vancomycin Allergy Intermediate Hives Verified 11/23/20 13:59 povidone-iodine Allergy Mild Hives Verified 11/23/20 13:59 [From Betadine] lisinopril Allergy Cough Verified 11/23/20 13:59 sulfadimethoxine Allergy Vomiting Verified 12/02/20 16:29 trimethoprim Allergy Itching Verified 12/02/20 16:29 Review of Systems Constitutional: Constitutional: Denies chills, Denies fever(s), Denies headache(s) and Reports weakness Eyes: Eyes: Denies blurry vision ENT: Denies headache(s) and Denies neck pain Cardiovascular: Cardiovascular: Denies chest pain, Reports rapid heart rate and Reports dyspnea Respiratory: Respiratory: Denies cough and Reports dyspnea Gastrointestinal: Gastrointestinal: Denies abdominal pain, Reports diarrhea, Reports nausea and Reports vomiting Genitourinary: Genitourinary: Denies hematuria and Denies dysuria Musculoskeletal: Musculoskeletal: Denies back pain and Reports neck pain Neurologic: Denies headache(s) and Denies weakness [facility] Past Medical History Medical History Amputation toe Anemia Carpal tunnel syndrome, bilateral Cellulitis of right foot Charcot ankle Chicken pox Chronic diarrhea Chronic pain Diarrhea Gastroparesis Heartburn Hernia History of GA (myocardial infarction) Hypertension Hypothyroidism Microscopic colitis Obesity Peripheral arterial disease Pneumonia Polyneuropathy Posterior tibial tendon dysfunction, left Rheumatoid arthritis Type 2 diabetes mellitus UTI (urinary tract infection) Surgical History Surgical History H/O foot surgery Poor historian- potential left posterior tibial tendon reconstruction Right foot charcot history? with surgery. Hx of cholecystectomy Family History Family History Father Hyperlipidemia Lung cancer Diabetes mellitus Mother Diabetes mellitus Other Family history of allergic disorder Hypertension Social History Social History Smoking status: Never smoker Tobacco type: cigarettes Smoking end date: 02/27/05 Alcohol intake: never Alcohol use details: occasionally Substance use: never Substance use type: does not use Gen
[2021-01-12 19:29] VITALS: BP 106/62; PULSE 139; RESP 16; TEMP 36.7; O2SAT 97
[2021-01-12 19:35] LABS: Prothrombin Time 12.9 Seconds (11.1-14.7)
[2021-01-12] MEDS: SODIUM CHLORIDE 0.9% IV 1,000 ML 999 ML IV CONT ×2 (19:35→22:32)
[2021-01-12 19:36] LABS: Partial Thromboplastin Time 28.4 SECONDS (22.3-36.8)
[2021-01-12 19:45] LABS: Alanine Aminotransferase 23 U/L (4-35); Albumin Level 4.1 g/dL (3.5-5.1); Alkaline Phosphatase 107 U/L (38-126); Anion Gap 13 mmol/L (8-16); Aspartate Amino Transferase 36 U/L (14-36); Bilirubin,Total 0.4 mg/dL (0.2-1.3); Blood Urea Nitrogen 22 mg/dL (7-17); Calcium 9.1 mg/dL (8.4-10.2); Carbon Dioxide 23 mmol/L (22-30); Chloride 104 mmol/L (98-107); Estimated Glomerular Filt Rate 32; Glucose 158 mg/dL (65-110); Potassium 4.1 mmol/L (3.4-5.0); Sodium 140 mmol/L (137-145)
[2021-01-12 19:52] LABS: Troponin I 0.028 ng/mL (0.000-0.034)
[2021-01-12] MEDS: ONDANSETRON INJ 4 MG/2 ML VIAL IV PUSH (20:17)
[2021-01-12 20:45] LABS: Lactic Acid Reflex 2.2 mmol/L (0.7-2.1)
[2021-01-12 20:53] VITALS: BP 108/73; PULSE 133; RESP 16; O2SAT 100
[2021-01-12 21:50] LABS: D Dimer 0.64 ug/mL (<0.48)
[2021-01-12 22:05] LABS: Troponin I 0.038 ng/mL (0.000-0.034)
[2021-01-12 22:31] VITALS: BP 110/68; PULSE 133; RESP 18; O2SAT 100
[2021-01-12 23:30] VITALS: BP 103/48; PULSE 84; RESP 14; O2SAT 100
--- NOTE | 2021-01-12 23:30 | PC.NURSE ---
Assumed care of pt at this time. PT alert and upright on stretcher, no complaints at this time. PT states she feels better than when sehe came in. Pts HR in 80s, regular.
[2021-01-12 23:31] LABS: Reflex Lactic Acid Yes or No Add Lactic
[2021-01-13] VITALS (23 sets, daily range): BP systolic 111–151; BP diastolic 46–77; PULSE 72–90; RESP 16–22; TEMP 35.9–36.8; O2SAT 96–100
[2021-01-13 02:04] LABS: Lactic Acid 1.1 mmol/L (0.7-2.1)
[2021-01-13 02:32] LABS: Troponin I 0.068 ng/mL (0.000-0.034)
--- NOTE | 2021-01-13 03:28 | ADMGEN ---
This patient, Aleyda Dobbs, was admitted to IMU Room 211-01 on 01/13/21 at 0300. Patient/family oriented to hospital policies and general routines including ID bracelet, bed and alarms, visiting hours, pain management, procedures, bathroom and other care routines, personal items, smoking policy, room service/diet, and visiting hours. Information on how to activate the Rapid Response Team has been discussed. Patient/Family are encouraged to report perceived risks to care and to ask questions if they do not understand what they are told or what they should do.
[2021-01-13] MEDS: SODIUM CHLORIDE 0.9% IV 1,000 ML 125 ML IV CONT ×2 (03:43→11:42)
--- NOTE | 2021-01-13 11:23 | ECG_ITS ---
Measurements Intervals [place] Rate: 78 P: 16 [place]: 159 QRS: -11 QRSD: 97 T: 21 QT: 422 QTc: 483 Interpretive Statements SINUS RHYTHM NORMAL ECG Electronically Signed On 01-13-2021 11:46:00 COIL TIER by Dewayne Jacobson D.O.
[2021-01-13 11:50] LABS: Basophils Percent Auto 0.6 % (0.2-1.2); Eosinophils Absolute Auto 0.2 K/mm3 (0-0.3); Hematocrit 29.1 % (37.0-47.0); Hemoglobin 9.5 g/dL (12.0-15.0); Immature Granulocyte Absolute 0.02 K/mm3 (0.00-0.031); Immature Granulocyte Percent A 0.4 % (0-0.5); Lymphocytes Absolute Auto 1.56 K/mm3 (0.9-3.2); Lymphocytes Percent Auto 29.8 % (18.3-44.2); Mean Corpuscular HGB Conc 32.6 g/dl (32-36); Mean Corpuscular Hemoglobin 29.6 pg (26-34); Mean Corpuscular Volume 90.7 fl (80-100); Mean Platelet Volume 11.7 fl (7.4-10.4); Monocytes Absolute Auto 0.4 K/mm3 (0.1-0.6); Neutrophils Percent Auto 57.2 % (45.5-73.1); Platelet Count Result 151 k/mm3 (150-375); Red Blood Count 3.21 M/mm3 (4.2-5.4); Red Cell Distribution Width 14.2 % (11.5-14.5); White Blood Count 5.2 K/mm3 (4.5-10.0)
[2021-01-13 12:03] LABS: D Dimer 0.48 ug/mL (<0.48)
[2021-01-13 12:10] LABS: Alanine Aminotransferase 19 U/L (4-35); Albumin Level 3.5 g/dL (3.5-5.1); Alkaline Phosphatase 91 U/L (38-126); Anion Gap 8 mmol/L (8-16); Aspartate Amino Transferase 29 U/L (14-36); Bilirubin,Total 0.3 mg/dL (0.2-1.3); Blood Urea Nitrogen 16 mg/dL (7-17); CRP < 0.5 mg/dL (<1.0); Calcium 8.1 mg/dL (8.4-10.2); Carbon Dioxide 23 mmol/L (22-30); Chloride 106 mmol/L (98-107); Estimated Glomerular Filt Rate 55; Glucose 113 mg/dL (65-110); Lactate Dehydrogenase 423 U/L (313-618); Magnesium 1.4 mg/dL (1.6-2.3); Phosphorus 4.4 mg/dL (2.5-4.5); Sodium 137 mmol/L (137-145)
[2021-01-13 12:19] LABS: NT Pro B Type Natriuretic Pept 2520 pg/mL (5-100); Troponin I 0.056 ng/mL (0.000-0.034)
--- NOTE | 2021-01-13 12:40 | PM.IMHP ---
H&P: HPI History of Present Illness Date/Time: PATIENT IS ADMITTED UNDER OBSERVATION STATUS 01/13/21 12:40 Chief Complaint: Weakness Narrative: 70yo female with DM, RA, and HTN who presents with complaints of weakness. One week prior to admission, patient developed nausea, vomiting diarrhea. She contacted her primary care nausea and Ozampic was stopped. Symptoms resolved. She was feeling well up until the day of admission or around noon when she developed acute onset of weakness more and room spinning dizziness. She felt fatigued. She denies to me that she was having chest pain. She did feel heart racing. No fever chills. No cough. She was short of breath and she did have nausea. Liver she was complaining of right-sided neck pain that radiated down her back and into her right arm. Right arm was weak and had pain. Currently her right hand is numb. Pain has resolved however. She has had history of neck and arm pain but this was much more severe than usual. She did take a muscle relaxant without benefit. No exposure to COVID. She did receive a COVID vaccine x2 in May. No odynophagia or dysphagia. No abdominal pain. No diarrhea. No anosmia or dysgeusia. She has not had her flu vaccine. She has no history of kidney RI problems from diabetes but does have neuropathy in her feet. She also has peripheral arterial disease with ' 90%' stenosis in the right leg. She follows with Dr. Vanegas as her Stitcher Around. Her last stress test was 1.5 years ago which was negative. Her last A1c was 5.8. She checks her glucose 2-3x/day. She denies hypoglycemia symptoms. Glucose during her symptoms were 140-160. She called her daughter brought to the emergency room for evaluation. In the emergency room, patient was noted to be tachycardic rate of 139. EKG showing SVT. She had elevated BUN 22 creatinine 1.6 which is above her baseline. Lactic acid was 2.2. Troponins elevated 0.068. She was given aspirin. Started on fluids. She was admitted further care. She converted to normal sinus rhythm on her own accord in the ED confirmed by EKG. Review of Systems Review of Systems: All systems reviewed & are unremarkable except as noted in HPI and below [facility] Past Medical History Medical History (Updated 01/13/21 @ 13:20 by Alistair Patel MD) Amputation toe Anemia Carpal tunnel syndrome, bilateral Cellulitis of right foot Charcot ankle Chicken pox Chronic diarrhea Chronic pain Diarrhea Gastroparesis Heartburn Hernia History of [place] (myocardial infarction) Hypertension Hypothyroidism Microscopic colitis Obesity Peripheral arterial disease Pneumonia Polyneuropathy Posterior tibial tendon dysfunction, left Rheumatoid arthritis Type 2 diabetes mellitus UTI (urinary tract infection) Surgical History Surgical History (Updated 01/13/21 @ 13:15 by Alistair Patel MD) Amputation of left great toe H/O foot surgery Poor historian- potential left posterior tibial tendon reconstruction Right foot charcot history? with surgery. History of carpal tunnel release History of hernia repair Hx of cholecystectomy Family History Family History Father Hyperlipidemia Lung cancer Diabetes mellitus Mother Diabetes mellitus Other Family history of allergic disorder Hypertension Social History Social History (Updated 01/13/21 @ 13:16 by Alistair Patel MD) Social History: Patient quit tobacco in 1997 after smoking a pack a day for about 30 years. She denies drug use. She occasionally drinks alcohol. Still lives at home with her and brother. She is a full code. She nominated her daughter Elisha to be the individual make medical decisions for her if she is unable. Smoking packs per day: 1 Smoking cigarettes per day: 20.0 Years smoked: 29 Smoking pack-years: 29.00 Smoking status: Former smoker Tobacco type: cigarettes Smoking end da
[2021-01-13 12:59] LABS: Glucose Point of Care 100 mg/dl (65-105)
[2021-01-13] MEDS: METOPROLOL SUCCINATE EXT REL 25 MG TABCR PO (13:00)
[2021-01-13 13:02] LABS: Hemoglobin A1C 6.3 % (<5.7)
[2021-01-13] MEDS: METOPROLOL SUCCINATE EXT REL 12.5 MG TABCR PO (15:04)
[2021-01-13] MEDS: MAGNESIUM SULF 2 GM/WATER 50ML 2 GM/50 ML BAG IVPB (15:04)
[2021-01-13] MEDS: ENOXAPARIN 40 MG/0.4 ML SYRINGE SUB-Q (15:07)
[2021-01-13 15:51] LABS: Add Urine Microscopic? YES; Appearance Urine Cloudy (Clear); Bacteria Urine 2+ /hpf; Bilirubin Urine Negative (Negative); Blood Urine Negative (Negative); Color Urine Yellow (Yellow); Glucose Urine UA Negative (Negative); Ketones Urine Negative (Negative); Leukocyte Esterase Ur 2+ LEU/UL (Negative); Mucus Urine Rare /lpf; Nitrate Urine Negative (Negative); Protein Urine 1+ mg/dL (Negative); Specific Grav Ur 1.009 (1.001-1.035); Squamous Epithelial Cell Urine Rare /hpf (Few); Urobilinogen Urine Negative mg/dL (<2.0); WBC Urine 51-75 /hpf
[2021-01-13 16:56] LABS: Glucose Point of Care 195 mg/dl (65-105)
[2021-01-13] MEDS: OMEGA 3 POLYUNSAT FATTY ACIDS 1 GM CAP PO (17:52)
[2021-01-13] MEDS: FAMOTIDINE 20 MG TABLET PO (17:52)
[2021-01-13] MEDS: HYDROXYCHLOROQUINE SULFATE 200 MG TABLET PO (17:53)
[2021-01-13 18:47] LABS: SARS-CoV-2 RNA PCR Negative
[2021-01-13 20:40] LABS: Glucose Point of Care 165 mg/dl (65-105)
[2021-01-13] MEDS: MONTELUKAST SODIUM 10 MG TABLET PO (21:02)
[2021-01-13] MEDS: INSULIN GLARGINE (*BKC) 100 UNITS/ML 32 UNITS SUB-Q (21:03)
[2021-01-13] MEDS: ATORVASTATIN 40 MG TABLET PO (21:03)
[2021-01-14] VITALS (11 sets, daily range): BP systolic 131–150; BP diastolic 56–69; PULSE 73–84; RESP 20–22; TEMP 36–36.8; O2SAT 98–100
--- NOTE | 2021-01-14 | ECHO_ITS ---
Patient Info Name: Aleyda Dobbs Age: 70 years : 1950 Gender: Female Ht: 64 in Wt: 219 lbs BSA: 2.17 m2 HR: 76 bpm BP: 131 / 56 mmHg Technical Quality: Fair Exam Date: 01/14/2021 10:13 AM Exam Location: [facility] Pulmonary Exam Room: [facility] Patient Status: Inpatient Admit Date: 01/13/2021 Staff Ordering Physician: Alistair Patel MD Gizzard Peeler: Laura Burgos RDCS Attending Provider: Yolis Fitzpatrick DO Exam Type: CA echo doppler color flow Study Info Indications - svt Complete two-dimensional, color flow and Doppler transthoracic echocardiogram is performed. Summary 1. Complete two-dimensional, color flow and Doppler transthoracic echocardiogram is performed. 2. Left ventricular chamber dimension is normal. 3. Left ventricular systolic function is normal, estimated at 55-60%. 4. The left ventricular diastolic function is grade I diastolic dysfunction. 5. E/e' 30 is significantly elevated. 6. Left atrial chamber dimension is severely enlarged. 7. Right atrial chamber dimension is mildly enlarged. 8. There is mild aortic valve sclerosis. 9. The mitral valve has mildly thickened leaflets and severely calcified annulus. 10. There is mild mitral valve stenosis based on mean gradient 5 mmHg and peak gradient 13 mmHg and mitral valve area by VTI of 1.8 cm2. 11. There is mild mitral valve regurgitation. 12. There is mild tricuspid valve regurgitation. 13. No pulmonary hypertension, estimated pulmonary arterial systolic pressure is 32 mmHg. Left Ventricle E/e' 30 is significantly elevated. Left ventricular chamber dimension is normal. Left ventricular systolic function is normal, estimated at 55-60%. The left ventricular diastolic function is grade I diastolic dysfunction. Right Ventricle Right ventricular chamber dimension is normal. Right ventricular systolic function is normal. Left Atria Left atrial chamber dimension is severely enlarged. Right Atria Right atrial chamber dimension is mildly enlarged. Aortic Valve The aortic valve is trileaflet. There is mild aortic valve sclerosis. There is no aortic valve stenosis. There is no aortic valve regurgitation. Pulmonic Valve There is no pulmonic regurgitation. Mitral Valve The mitral valve has mildly thickened leaflets and severely calcified annulus. There is mild mitral valve stenosis based on mean gradient 5 mmHg and peak gradient 13 mmHg and mitral valve area by VTI of 1.8 cm2. There is mild mitral valve regurgitation. Tricuspid Valve There is mild tricuspid valve regurgitation. No pulmonary hypertension, estimated pulmonary arterial systolic pressure is 32 mmHg. Pericardium/Pleural There is no pericardial effusion. Inferior Vena Cava Normal inferior vena cava with >50% collapse upon inspiration consistent with normal right atrial pressure, 5 mmHg. Aorta The aortic root size at the sinus of Valsalva is normal. Left Ventricular Outflow Tract Name Value Normal LVOT 2D LVOT Diameter 2.0 cm LVOT Doppler LVOT Peak Gradient 6 mmHg LVOT Mean Gradient 3 mmHg
[2021-01-14 04:55] LABS: Hematocrit 30.5 % (37.0-47.0); Hemoglobin 10.1 g/dL (12.0-15.0); Mean Corpuscular HGB Conc 33.1 g/dl (32-36); Mean Corpuscular Hemoglobin 30.1 pg (26-34); Mean Corpuscular Volume 90.8 fl (80-100); Mean Platelet Volume 11.8 fl (7.4-10.4); Platelet Count Result 153 k/mm3 (150-375); Red Blood Count 3.36 M/mm3 (4.2-5.4); Red Cell Distribution Width 13.8 % (11.5-14.5); White Blood Count 5.3 K/mm3 (4.5-10.0)
[2021-01-14 05:33] LABS: Iron 39 ug/dL (37-170)
[2021-01-14] MEDS: LEVOTHYROXINE SODIUM 100 MCG TABLET PO (05:34)
[2021-01-14 05:43] LABS: Percent Iron Saturation 14 % (20-50)
[2021-01-14 06:16] LABS: Albumin Level 3.6 g/dL (3.5-5.1); Anion Gap 8 mmol/L (8-16); Blood Urea Nitrogen 15 mg/dL (7-17); Calcium 8.8 mg/dL (8.4-10.2); Carbon Dioxide 25 mmol/L (22-30); Chloride 105 mmol/L (98-107); Estimated Glomerular Filt Rate 55; Glucose 127 mg/dL (65-110); Magnesium 1.8 mg/dL (1.6-2.3); Phosphorus 3.8 mg/dL (2.5-4.5); Potassium 4.4 mmol/L (3.4-5.0); Sodium 138 mmol/L (137-145)
[2021-01-14 07:22] LABS: Folic Acid > 20.0 ng/mL (2.76->20)
[2021-01-14 08:05] LABS: Glucose Point of Care 145 mg/dl (65-105)
[2021-01-14] MEDS: ASPIRIN 81 MG ENTERIC TABLET PO (08:29)
[2021-01-14] MEDS: DULoxetine HCL 20 MG CAPSULE.DR PO (08:29)
[2021-01-14] MEDS: METOPROLOL SUCCINATE EXT REL 25 MG TABCR PO (08:29)
[2021-01-14] MEDS: CHOLECALCIFEROL 1,000 UNITS TABLET 5000 UNITS PO (08:29)
[2021-01-14] MEDS: METOPROLOL SUCCINATE EXT REL 12.5 MG TABCR PO (08:29)
[2021-01-14] MEDS: FUROSEMIDE 20 MG TABLET PO (08:29)
[2021-01-14] MEDS: MULTIVITAMINS THERAPEUTIC TAB (*BKC) 1 TABLET PO (08:29)
[2021-01-14] MEDS: OMEGA 3 POLYUNSAT FATTY ACIDS 1 GM CAP PO (08:29)
[2021-01-14] MEDS: FAMOTIDINE 20 MG TABLET PO (08:29)
[2021-01-14] MEDS: ENOXAPARIN 40 MG/0.4 ML SYRINGE SUB-Q (08:29)
[2021-01-14] MEDS: HYDROXYCHLOROQUINE SULFATE 200 MG TABLET PO (08:29)
[2021-01-14] MEDS: PANTOPRAZOLE 40 MG TABLET PO (08:30)
[2021-01-14 11:49] LABS: Glucose Point of Care 115 mg/dl (65-105)
--- NOTE | 2021-01-14 15:05 | PM.DS ---
DS: Admitting Diagnosis Discharge Date 01/14/21 Admitting Diagnosis Weakness DS: Discharge Diagnosis Discharge Diagnosis (1) SVT (supraventricular tachycardia): Code(s): I47.1 - Supraventricular tachycardia Status: Acute Assessment and Plan: Patient presented with weakness and found to be in SVT. Most likely the etiology of her symptoms. She has no history of SVT or atrial fibrillation. No new medications to suggest causation. TSH was normal. CTA chest showing no pulmonary emboli. We resumed her metoprolol and advanced the dose. Echocardiogram showing EF 55-60% with Grade I diastolic dysfunction and mild valvular disease. Lower extremity venous Dopplers were negative for DVT. Magnesium was low so this was replaced. She was monitored on telemetry but no recurrence. (2) TERESA (acute kidney injury): Code(s): N17.9 - Acute kidney failure, unspecified Status: Acute Assessment and Plan: Patient presented with acute kidney injury with creatinine of 1.6. Possibly related to her recent episode of nausea, vomiting and diarrhea. She is on Lasix as well. With the IV fluids, creatinine has normalized. (3) Elevated troponin: Code(s): R77.8 - Other specified abnormalities of plasma proteins Status: Acute Assessment and Plan: Troponin mildly elevated most likely related to the SVT and tachycardia. Echocardiogram as mentioned above. Troponin levels are trending downward. Suspect more likely nonischemic myocardial injury. (4) Person under investigation for COVID-19: Code(s): Z20.822 - Contact with and (suspected) exposure to COVID-19 Status: Acute Assessment and Plan: Patient was swabbed for COVID. She was on isolation but COVID negative so isolation stopped. (5) Diabetes mellitus: Qualifiers: Diabetes mellitus complication detail: with peripheral angiopathy with gangrene Diabetes mellitus complication status: with circulatory complication Diabetes mellitus termite exterminator insulin use: with detention use Diabetes mellitus type: type 2 Qualified Code(s): E11.52 - Type 2 diabetes mellitus with diabetic peripheral angiopathy with gangrene; Z79.4 - jail (current) use of insulin Code(s): E11.9 - Type 2 diabetes mellitus without complications Status: Chronic Assessment and Plan: A1c 6.3. She was monitored with Accuchecks covering with sliding scale protocol. We resumed her home medications. Hypoglycemia protocol also be ordered. (6) Rheumatoid arthritis: Code(s): M06.9 - Rheumatoid arthritis, unspecified Status: Chronic Assessment and Plan: Patient has rheumatoid arthritis and is on hydroxychloroquine which was resumed. DS: Summary Hospital Course Reason for hospitalization: 70yo female with DM, RA, and HTN who presents with complaints of weakness. Please see H&P for details. Hospital Course: Please see above for details of hospital course. Status at Discharge Cognitive/behavioral status at discharge: Stable Time Spent with Patient Time attestation: Total time spent providing and/or coordinating discharge services: 35 minutes Time spent: Greater than 30 minutes Exam Narrative: AF 96.8 145/69 82 20 99% ra Gen - NARD Chest -above basilar inspiratory rhonchi otherwise clear CV - heart was regular rate and rhythm. S1-S2. Telemetry showing no significant dysrhythmias Abd -soft. Nontender. Nondistended positive bowel sounds. Ext - no pedal edema. Psych - normal mood and affect. Patient is pleasant and cooperative. Skin - warm and dry. DS: Data Data Completed and Pending Labs on day of discharge: Labs from last 24 hours 01/14/21 01/14/21 01/14/21 11:44 07:54 04:37 WBC RBC Hgb Hct MCV MCH MCHC RDW Plt Count MPV Sodium Potassium Chloride Carbon Dioxide Anion Gap BUN Creatinine Estim Creat
--- NOTE | 2021-01-15 14:37 | PC.NURSE ---
Dr. Patel ordered Cefdinir 300 mg BID po for 5 days. Called into [facility]. Left message for patient.
== END 2021-01-14 16:44 | disposition home or self-care (01) ==
LOC: ANHED 20:06 → ANHIMU 01-13 02:37
PROVIDERS: Admitting Provider Internal Medicine; Emergency Provider Emergency Medicine; PCP Internal Medicine; Visit Provider Internal Medicine
DX: I47.1 Supraventricular tachycardia (principal); R07.9 Chest pain, unspecified; R06.02 Shortness of breath; R53.1 Weakness; E11.42 Type 2 diabetes mellitus with diabetic polyneuropathy; E11.51 Type 2 diabetes mellitus with diabetic peripheral angiopathy without gangrene; I25.2 Old myocardial infarction; I10 Essential (primary) hypertension; M47.812 Spondylosis without myelopathy or radiculopathy, cervical region; N17.9 Acute kidney failure, unspecified; M06.9 Rheumatoid arthritis, unspecified; R77.8 Other specified abnormalities of plasma proteins; Z79.4 Long term (current) use of insulin; Z20.822 Contact with and (suspected) exposure to COVID-19; Z87.891 Personal history of nicotine dependence
CPT/HCPCS: 36415; 71046; 71275; 72040; 74177; 80053; 80069; 81001; 82607; 82728; 82746; 82948; 83036; 83540; 83550; 83605; 83615; 83735; 83880; 84100; 84443; 84484; 85025; 85027; 85380; 85610; 85730; 86140; 87077; 87086; 87088; 87186; 93005; 93306; 93970; 96361; 96372; 96374; 96375; 97161; 97165; 99285; A9270; C9803; G0378; J0696; J1650; J1815; J2405; J3475; J7030; Q9967; U0003; U0005

== ENCOUNTER 2021-09-14 14:40 | Emergency (ER) | payer MEDICARE, BC, SELFPAY ==
--- NOTE | ~2021-09-14 | XR_ITS ---
EXAMINATION: XR elbow RT min 3V DATE: 09/14/2021 15:22 INDICATION: Right elbow pain. Fall. TECHNIQUE: 4 views of right elbow were obtained. COMPARISON: Radiographs 04/21/2017 FINDINGS: Bone alignment is normal. No fracture. There is mild elbow joint osteoarthritis. There is a n enthesophyte at medial humeral epicondyle. No elbow joint effusion. IMPRESSION: 1. Mild elbow joint osteoarthritis. Reviewed, dictated and finalized at location A.
--- NOTE | ~2021-09-14 | XR_ITS ---
XR ribs LT 2V w CXR 2V DATE: 09/14/2021 15:22 INDICATION: Left-sided rib pain, back pain following a fall TECHNIQUE: PA and lateral chest. 3 views of the left ribs. COMPARISON: 01/12/2021 CT pulmonary scan FINDINGS: Heart size is within normal limits. Is aortic calcification and mild tortuosity. No hilar o r mediastinal mass lesion or adenopathy is evident. No pulmonary infiltrate or consolidation, pleural effusion or pulmonary vascular congestion or pneumo thorax. Right lower lobe calcified pulmonary granuloma. Osteopenia. No left rib fracture or bone destruction is evident. Surgical clips, right upper quadrant, consistent with cholecystectomy. Ventral abdominal wall hernia repair. IMPRESSION: No active cardiopulmonary disease Aortic atherosclerosis No left rib fracture is detected. Reviewed, dictated and finalized at location B.
[2021-09-14 14:46] VITALS: BP 151/73; PULSE 97; RESP 19; TEMP 36.5; O2SAT 99
--- NOTE | 2021-09-14 15:06 | ED.WOUNDLAC ---
HPI - Wound/Laceration General Chief Complaint: Wound/Laceration Stated Complaint: fall/right arm laceration Time Seen by Provider: 09/14/21 14:50 History of Present Illness HPI narrative: 71-year-old female presents the emergency room for injuries sustained in a fall. Patient states that she lost her footing and slipped and fell, landing on a piece of furniture. Patient sustained a laceration to her right elbow is also complaining of low back pain. No other injuries Related Data Home Medications Medication Instructions Recorded Confirmed aspirin 81 mg tablet,delayed 81 mg PO DAILY 01/02/19 09/09/21 release (Adult Low Dose Aspirin) cholecalciferol (vitamin D3) 125 5,000 unit PO DAILY 01/02/19 09/09/21 mcg (5,000 unit) tablet multivitamin 1 tablet PO DAILY 01/02/19 09/09/21 hydroxychloroquine 200 mg tablet 200 mg PO BID 05/06/20 09/09/21 (Plaquenil) montelukast 10 mg tablet 10 mg PO HS 05/06/20 09/09/21 (Singulair) Acid Outboard Motorboat Rigger (omeprazole) 20 mg PO DAILY 06/18/20 09/09/21 atorvastatin 40 mg tablet 40 mg PO HS 06/18/20 09/09/21 insulin glargine U-300 conc 300 60 unit subcut HS 11/09/20 09/09/21 unit/mL (3 mL) subcutaneous pen (Toujeo Max U-300 SoloStar) ferrous sulfate 325 mg (65 mg 325 mg PO DAILY 09/08/21 09/09/21 iron) tablet finerenone 10 mg tablet (Kerendia) 10 mg PO DAILY 09/08/21 09/09/21 rivaroxaban 2.5 mg tablet (Xarelto) 2.5 mg PO BID 09/08/21 09/09/21 Allergies Allergy/AdvReac Type Severity Reaction Status Date / Time daptomycin Allergy Intermediate Hives Verified 04/22/21 14:51 valsartan Allergy Intermediate Hives Verified 04/22/21 14:51 vancomycin Allergy Intermediate Hives Verified 04/22/21 14:51 povidone-iodine Allergy Mild Hives Verified 04/22/21 14:51 [From Betadine] lisinopril Allergy Cough Verified 04/22/21 14:51 sulfadimethoxine Allergy Vomiting Verified 04/22/21 14:51 trimethoprim Allergy Itching Verified 04/22/21 14:51 Review of Systems Review of Systems: CONSTITUTIONAL: Denies fever, chills, or sweats. EYES: Denies visual changes, redness, or discharge. ENT: Denies rhinorrhea, congestion, sore throat, or otalgia. CARDIOVASCULAR: Denies chest pain, palpitations, or edema. RESPIRATORY: Denies cough or dyspnea. GASTROINTESTINAL: Denies abdominal pain, nausea, vomiting, or diarrhea. GENITOURINARY: Denies dysuria or hematuria. SKIN: Reports laceration right elbow MUSCULOSKELETAL: Reports posterior left rib cage pain, right elbow pain NEUROLOGIC: Denies headache, numbness, dizziness, or weakness. PSYCHIATRIC: Denies anxiety or depression. [facility] Past Medical History Medical History Amputation toe Anemia Carpal tunnel syndrome, bilateral Cellulitis of right foot Charcot ankle Chicken pox Chronic diarrhea Chronic pain Colon cancer screening Diarrhea Gastroparesis Heartburn Hernia History of [place] (myocardial infarction) Hypertension Hypothyroidism Microscopic colitis Obesity Peripheral arterial disease Pneumonia Polyneuropathy Posterior tibial tendon dysfunction, left Rheumatoid arthritis Type 2 diabetes mellitus UTI (urinary tract infection) Surgical History Surgical History Amputation of left great toe H/O foot surgery Poor historian- potential left posterior tibial tendon reconstruction Right foot charcot history? with surgery. History of carpal tunnel release History of hernia repair Hx of cholecystectomy Family History Family History Father Hyperlipidemia Lung cancer Diabetes mellitus Mother Diabetes mellitus Other Family history of allergic disorder Hypertension Social History Social History Social History: Patient quit tobacco in 1997 after smoking a pack a day for about 30 years. She denies drug use. She occasionally
[2021-09-14] MEDS: TETANUS,DIPHTHERIA,AC PERTUSSIS ADULT (0.5 ML) BOOSTRIX IM (16:10)
[2021-09-14 16:24] VITALS: BP 123/68; PULSE 76; RESP 16; TEMP 36.8; O2SAT 100
--- NOTE | 2021-09-14 16:25 | PC.NURSE ---
rx for keflex 500mg 1 tab po q12h x7days called to angie at [facility] in [place]
== END 2021-09-14 16:25 | disposition home or self-care (01) ==
PROVIDERS: Emergency Provider Nurse Practitioner Family; PCP Internal Medicine
DX: S51.011A Laceration without foreign body of right elbow, initial encounter (principal); S50.11XA Contusion of right forearm, initial encounter; S20.212A Contusion of left front wall of thorax, initial encounter; D64.9 Anemia, unspecified; I25.2 Old myocardial infarction; I10 Essential (primary) hypertension; E03.9 Hypothyroidism, unspecified; Z79.4 Long term (current) use of insulin; W18.30XA Fall on same level, unspecified, initial encounter; Z23 Encounter for immunization
CPT/HCPCS: 12002; 71046; 71100; 73080; 90471; 90715; 99284

== ENCOUNTER 2021-10-12 10:41 | Outpatient (CLI) | payer MEDICARE, BC, SELFPAY ==
[2021-10-12 11:23] LABS: Basophils Percent Auto 0.7 % (0.2-1.2); Eosinophils Absolute Auto 0.2 K/mm3 (0-0.3); Eosinophils Percent Auto 4.6 % (0-4.4); Hematocrit 33.9 % (37.0-47.0); Hemoglobin 10.5 g/dL (12.0-15.0); Immature Granulocyte Absolute 0.02 K/mm3 (0.00-0.031); Immature Granulocyte Percent A 0.4 % (0-0.5); Immature Platelet Fraction Pct 11.7 % (0.9-11.2); Lymphocytes Absolute Auto 1.42 K/mm3 (0.9-3.2); Lymphocytes Percent Auto 31.3 % (18.3-44.2); Mean Corpuscular Hemoglobin 28.9 pg (26-34); Mean Corpuscular Volume 93.4 fl (80-100); Mean Platelet Volume 12.8 fl (7.4-10.4); Monocytes Absolute Auto 0.4 K/mm3 (0.1-0.6); Monocytes Percent Auto 9.7 % (2.6-8.5); Neutrophils Absolute Auto 2.4 K/mm3 (1.3-6.7); Neutrophils Percent Auto 53.3 % (45.5-73.1); Red Blood Count 3.63 M/mm3 (4.2-5.4); Red Cell Distribution Width 14.2 % (11.5-14.5); White Blood Count 4.5 K/mm3 (4.5-10.0)
[2021-10-12 11:34] LABS: Alanine Aminotransferase 23 U/L (6-35); Albumin Level 3.9 g/dL (3.5-5.1); Alkaline Phosphatase 111 U/L (38-126); Anion Gap 9 mmol/L (8-16); Aspartate Amino Transferase 36 U/L (14-36); Bilirubin,Total 0.3 mg/dL (0.2-1.3); Blood Urea Nitrogen 26 mg/dL (7-17); Calcium 8.4 mg/dL (8.4-10.2); Carbon Dioxide 26 mmol/L (22-30); Chloride 106 mmol/L (98-107); Cholesterol 113 mg/dL (0-200); Estimated Glomerular Filt Rate 55; Glucose 114 mg/dL (65-110); HDL Direct 48 mg/dL; Potassium 3.9 mmol/L (3.4-5.0); Sodium 141 mmol/L (137-145); Triglycerides 115 mg/dL (<150)
[2021-10-12 11:44] LABS: Platelet Count Result 114 k/mm3 (150-375)
[2021-10-12 12:11] LABS: Vitamin D 25 Hydroxy 70.6 ng/mL
[2021-10-12 12:18] LABS: LDL Cholesterol Direct < 30 mg/dL
[2021-10-12 14:49] LABS: Hemoglobin A1C 8.6 % (<5.7)
== END 2021-10-12 10:42 | disposition home or self-care (01) ==
LOC: ANHLAB 10:44
PROVIDERS: Nurse Practitioner; PCP Internal Medicine; Visit Provider Clinical Nurse Specialist
DX: I10 Essential (primary) hypertension (principal); E03.9 Hypothyroidism, unspecified; E55.9 Vitamin D deficiency, unspecified; E11.52 Type 2 diabetes mellitus with diabetic peripheral angiopathy with gangrene; Z79.4 Long term (current) use of insulin
CPT/HCPCS: 36415; 80053; 80061; 82306; 83036; 84443; 85025; 85055

== ENCOUNTER → 2021-10-13 14:07 | Outpatient (CLI) | payer MEDICARE, BC, SELFPAY ==
--- NOTE | ~2021-10-13 | XR_ITS ---
XR knee LT 3V 10/13/2021 14:26 Indication: Left knee pain Procedure: 3 views left knee Comparison: 11/10/2020 Findings: There is moderate tricompartment osteoarthritis of the left knee. No fracture, subluxation or dislocation. There is atherosclerosis of the femoral vessels. Impression: 1: Moderate tricompartment osteoarthritis of the left knee. Reviewed, dictated and finalized at location B. Impression: 1: Moderate tricompartment osteoarthritis of the left knee.
== END ==
PROVIDERS: PCP Clinical Nurse Specialist; Visit Provider Clinical Nurse Specialist
DX: M17.12 Unilateral primary osteoarthritis, left knee (principal)
CPT/HCPCS: 36415; 73562; 85025; 85055

== ENCOUNTER 2021-10-13 14:31 | Outpatient (CLI) | payer MEDICARE, BC, SELFPAY ==
[2021-10-13 18:29] LABS: Basophils Absolute Auto 0.1 K/mm3 (0.0-0.1); Basophils Percent Auto 0.8 % (0.2-1.2); Eosinophils Absolute Auto 0.3 K/mm3 (0-0.3); Eosinophils Percent Auto 4.3 % (0-4.4); Hematocrit 33.8 % (37.0-47.0); Hemoglobin 10.6 g/dL (12.0-15.0); Immature Granulocyte Absolute 0.03 K/mm3 (0.00-0.031); Immature Granulocyte Percent A 0.5 % (0-0.5); Immature Platelet Fraction Pct 14.2 % (0.9-11.2); Lymphocytes Absolute Auto 1.52 K/mm3 (0.9-3.2); Lymphocytes Percent Auto 24.9 % (18.3-44.2); Mean Corpuscular HGB Conc 31.4 g/dl (32-36); Mean Corpuscular Hemoglobin 28.8 pg (26-34); Mean Corpuscular Volume 91.8 fl (80-100); Mean Platelet Volume 13.4 fl (7.4-10.4); Monocytes Absolute Auto 0.6 K/mm3 (0.1-0.6); Monocytes Percent Auto 9.7 % (2.6-8.5); Neutrophils Absolute Auto 3.7 K/mm3 (1.3-6.7); Neutrophils Percent Auto 59.8 % (45.5-73.1); Platelet Count Result 136 k/mm3 (150-375); Red Blood Count 3.68 M/mm3 (4.2-5.4); Red Cell Distribution Width 14.3 % (11.5-14.5); White Blood Count 6.1 K/mm3 (4.5-10.0)
== END 2021-10-13 14:32 | disposition home or self-care (01) ==
LOC: ANHGOSHLAB 14:33
PROVIDERS: PCP Clinical Nurse Specialist; Visit Provider Clinical Nurse Specialist
DX: D69.6 Thrombocytopenia, unspecified (principal)
CPT/HCPCS: 36415; 85025; 85055

== ENCOUNTER 2021-12-06 13:54 | Outpatient (CLI) | payer MEDICARE, BC, SELFPAY ==
--- NOTE | ~2021-12-06 | CT_ITS ---
EXAMINATION: CT abdomen wo con DATE: 12/06/2021 14:17 INDICATION: Ventral hernia TECHNIQUE: Computed tomography (CT) of the abdomen was performed without intravenous contrast. The do se-length product (DLP) was 825.80 mGy-cm. Automated exposure control and iterative reconstruction te chnique were employed. COMPARISON: 01/12/2021 FINDINGS: Minimal dependent atelectasis is present in the lung bases. The heart size is normal. There is dense calcification of the mitral annulus. There is a chronic partially calcified mass of the spl een without significant change punctate calcifications of the otherwise normal liver likely reflect o ld granulomatous disease. The gallbladder is surgically absent. The pancreas and adrenal glands are n ormal. There are no pathologically enlarged abdominal lymph nodes. There is no free intraperitoneal g as or evidence of bowel obstruction. There are changes of mesh ventral hernia repair. There is a smal l fat-containing ventral hernia of the left midabdomen (image 101). There is moderate lumbar spondylo sis. IMPRESSION: 1. Changes of mesh ventral hernia repair with tiny fat-containing ventral hernia of the left mid abdo men. Reviewed, dictated and finalized at location A. IMPRESSION: 1. Changes of mesh ventral hernia repair with tiny fat-containing ventral herni a of the left mid abdomen.
== END 2021-12-06 13:55 | disposition home or self-care (01) ==
PROVIDERS: PCP Internal Medicine; Visit Provider Nurse Practitioner
DX: R10.9 Unspecified abdominal pain (principal); R19.7 Diarrhea, unspecified
CPT/HCPCS: 74150

== ENCOUNTER 2021-12-10 12:36 | Outpatient (CLI) | payer MEDICARE, BC, SELFPAY ==
[2021-12-10 14:22] LABS: Toxigenic C. Diff NEGATIVE (NEGATIVE)
== END 2021-12-10 12:37 | disposition home or self-care (01) ==
LOC: ANHLAB 12:38
PROVIDERS: PCP Internal Medicine; Visit Provider Nurse Practitioner
DX: R19.7 Diarrhea, unspecified (principal)
CPT/HCPCS: 87045; 87177; 87209; 87427; 87493; 89055

== ENCOUNTER 2021-12-17 10:03 | Outpatient (CLI) | payer MEDICARE, BC, SELFPAY ==
[2021-12-17 19:47] LABS: Basophils Percent Auto 0.7 % (0.2-1.2); Eosinophils Absolute Auto 0.3 K/mm3 (0-0.3); Eosinophils Percent Auto 5.1 % (0-4.4); Hematocrit 33.8 % (37.0-47.0); Hemoglobin 10.5 g/dL (12.0-15.0); Immature Granulocyte Absolute 0.01 K/mm3 (0.00-0.031); Immature Granulocyte Percent A 0.2 % (0-0.5); Lymphocytes Absolute Auto 1.81 K/mm3 (0.9-3.2); Lymphocytes Percent Auto 29.9 % (18.3-44.2); Mean Corpuscular HGB Conc 31.1 g/dl (32-36); Mean Corpuscular Hemoglobin 28.6 pg (26-34); Mean Corpuscular Volume 92.1 fl (80-100); Mean Platelet Volume 13.3 fl (7.4-10.4); Monocytes Absolute Auto 0.7 K/mm3 (0.1-0.6); Monocytes Percent Auto 10.7 % (2.6-8.5); Neutrophils Absolute Auto 3.2 K/mm3 (1.3-6.7); Neutrophils Percent Auto 53.4 % (45.5-73.1); Platelet Count Result 142 k/mm3 (150-375); Red Blood Count 3.67 M/mm3 (4.2-5.4); Red Cell Distribution Width 14.5 % (11.5-14.5); White Blood Count 6.1 K/mm3 (4.5-10.0)
[2021-12-17 19:58] LABS: Alanine Aminotransferase 30 U/L (6-35); Alkaline Phosphatase 95 U/L (38-126); Anion Gap 15 mmol/L (8-16); Aspartate Amino Transferase 52 U/L (14-36); Bilirubin,Total 0.5 mg/dL (0.2-1.3); Blood Urea Nitrogen 27 mg/dL (7-17); Calcium 8.9 mg/dL (8.4-10.2); Carbon Dioxide 21 mmol/L (22-30); Chloride 107 mmol/L (98-107); Estimated Glomerular Filt Rate 41; Glucose 104 mg/dL (65-110); Potassium 3.6 mmol/L (3.4-5.0); Sodium 143 mmol/L (137-145)
== END 2021-12-17 10:04 | disposition home or self-care (01) ==
LOC: ANHGOSHLAB 10:05
PROVIDERS: PCP Internal Medicine; Visit Provider Nurse Practitioner
DX: R19.7 Diarrhea, unspecified (principal); Z13.29 Encounter for screening for other suspected endocrine disorder
CPT/HCPCS: 36415; 80053; 85025; 85055

== ENCOUNTER 2022-02-08 13:08 | Emergency (ER) | payer MEDICARE, BC, SELFPAY ==
--- NOTE | ~2022-02-08 | XR_ITS ---
EXAMINATION: XR chest 1V DATE: 02/08/2022 15:25 INDICATION: COVID. Shortness of breath. TECHNIQUE: PA view of the chest was obtained. COMPARISON: Chest radiograph dated 09/14/[address] dated 01/12/2021 FINDINGS: Small calcified nodules at the lateral right lower lung zone along with calcified right hilar and med iastinal lymph nodes consistent with old granulomatous disease. No new airspace opacities, pulmonary edema, pleural effusion or pneumothorax. Mild cardiomegaly with dense mitral annular calcification. M ildly tortuous thoracic aorta. Cholecystectomy clips in right upper quadrant. Numerous metallic coils projecting over the upper abdomen consistent with prior ventral hernia mesh repair. IMPRESSION: 1. No acute cardiopulmonary disease. Reviewed, dictated and finalized at location A. HEAD OPERATOR
[2022-02-08 13:33] VITALS: BP 177/79; PULSE 92; RESP 18; TEMP 36.6; O2SAT 100
--- NOTE | 2022-02-08 13:35 | ECG_ITS ---
Measurements Intervals [place] Rate: 85 P: 4 AR: 172 QRS: -22 QRSD: 93 T: 24 QT: 398 QTc: 475 Interpretive Statements SINUS RHYTHM BORDERLINE LEFT AXIS DEVIATION [QRS AXIS < -20] COMPARED TO ECG 01/13/2021 11:33:00 NO SIGNIFICANT CHANGES Electronically Signed On 02-08-2022 16:37:15 PHYSICS TECHNICAL OFFICER by Carolina Juarez M.D.
[2022-02-08 13:57] LABS: Basophils Percent Auto 0.7 % (0.2-1.2); Eosinophils Absolute Auto 0.2 K/mm3 (0-0.3); Eosinophils Percent Auto 4.2 % (0-4.4); Hematocrit 34.3 % (37.0-47.0); Immature Granulocyte Absolute 0.01 K/mm3 (0.00-0.031); Immature Granulocyte Percent A 0.2 % (0-0.5); Lymphocytes Absolute Auto 1.34 K/mm3 (0.9-3.2); Lymphocytes Percent Auto 29.6 % (18.3-44.2); Mean Corpuscular HGB Conc 32.1 g/dl (32-36); Mean Corpuscular Hemoglobin 29.2 pg (26-34); Mean Platelet Volume 11.9 fl (7.4-10.4); Monocytes Absolute Auto 0.5 K/mm3 (0.1-0.6); Neutrophils Absolute Auto 2.5 K/mm3 (1.3-6.7); Neutrophils Percent Auto 55.3 % (45.5-73.1); Platelet Count Result 131 k/mm3 (150-375); Red Blood Count 3.77 M/mm3 (4.2-5.4); Red Cell Distribution Width 14.2 % (11.5-14.5); White Blood Count 4.5 K/mm3 (4.5-10.0)
[2022-02-08 14:10] LABS: Anion Gap 6 mmol/L (8-16); Bilirubin,Total 0.4 mg/dL (0.2-1.3); Blood Urea Nitrogen 22 mg/dL (7-17); Calcium 8.8 mg/dL (8.4-10.2); Carbon Dioxide 27 mmol/L (22-30); Chloride 103 mmol/L (98-107); Estimated CRCL calculation 53 ml/min; Estimated Glomerular Filt Rate 55; Glucose 137 mg/dL (65-110); Sodium 136 mmol/L (137-145)
[2022-02-08 14:11] LABS: Alanine Aminotransferase 22 U/L (6-35); Albumin Level 4.1 g/dL (3.5-5.1); Alkaline Phosphatase 93 U/L (38-126); Aspartate Amino Transferase 33 U/L (14-36)
[2022-02-08 16:28] VITALS: O2SAT 97
[2022-02-08 16:32] VITALS: BP 147/70; PULSE 85; RESP 16; O2SAT 98
--- NOTE | 2022-02-08 17:11 | ED.SOB ---
HPI - SOB/Dyspnea General Chief Complaint: Shortness of Breath/Dyspnea Stated Complaint: shortness of breath - home covid test positive Time Seen by Provider: 02/08/22 16:11 History of Present Illness HPI Narrative: Patient is a 71-year-old female who presents the ER with shortness of breath. Patient reports she swabbed herself for COVID 19 and was positive on 02/03/2022. She reports she had been having symptoms for approximately 1 week prior to that. She had been having nausea and fatigue and weakness. She reports she developed some chills 3 days ago with a cough. She sleeps with BiPAP at night and has been short of breath over the last day while wearing the BiPAP and so she takes it off. She has been using her inhaler with minimal improvement. No chest pain or chest pressure. No pain with deep breaths. She has no vomiting or diarrhea at this time. Related Data Home Medications Medication Instructions Recorded Confirmed aspirin 81 mg tablet,delayed 81 mg PO DAILY 01/02/19 12/01/21 release (Adult Low Dose Aspirin) cholecalciferol (vitamin D3) 125 5,000 unit PO DAILY 01/02/19 12/01/21 mcg (5,000 unit) tablet multivitamin 1 tablet PO DAILY 01/02/19 12/01/21 hydroxychloroquine 200 mg tablet 200 mg PO BID 05/06/20 12/01/21 (Plaquenil) montelukast 10 mg tablet 10 mg PO HS 05/06/20 12/01/21 (Singulair) Acid Human Performance Consultant (omeprazole) 20 mg PO DAILY 06/18/20 12/01/21 atorvastatin 40 mg tablet 40 mg PO HS 06/18/20 12/01/21 insulin glargine U-300 conc 300 60 unit subcut HS 11/09/20 12/01/21 unit/mL (3 mL) subcutaneous pen (Toujeo Max U-300 SoloStar) rivaroxaban 2.5 mg tablet (Xarelto) 2.5 mg PO BID 09/08/21 12/01/21 leflunomide 10 mg tablet 20 mg PO DAILY 09/24/21 12/01/21 calcium carbonate 600 mg calcium 1,200 mg PO DAILY 12/01/21 12/01/21 (1,500 mg) tablet ferrous sulfate 325 mg (65 mg 650 mg PO DAILY 12/01/21 12/01/21 iron) tablet glimepiride 2 mg tablet 2 mg PO DAILY 12/01/21 12/01/21 Allergies Allergy/AdvReac Type Severity Reaction Status Date / Time daptomycin Allergy Intermediate Hives Verified 02/08/22 16:33 valsartan Allergy Intermediate Hives Verified 02/08/22 16:33 vancomycin Allergy Intermediate Hives Verified 02/08/22 16:33 povidone-iodine Allergy Mild Hives Verified 02/08/22 16:33 [From Betadine] lisinopril Allergy Cough Verified 02/08/22 16:33 sulfadimethoxine Allergy Vomiting Verified 02/08/22 16:33 trimethoprim Allergy Itching Verified 02/08/22 16:33 Review of Systems Review of Systems: All systems reviewed & are unremarkable except as noted in HPI and below Constitutional: Constitutional: Denies chills, Reports fatigue and Denies fever(s) ENT: Denies nasal congestion and Denies sore throat Cardiovascular: Cardiovascular: Denies chest pain, Denies rapid heart rate and Denies radiating jaw, neck or arm pain Respiratory: Respiratory: Reports cough, Reports dyspnea and Denies wheezing Gastrointestinal: Gastrointestinal: Denies abdominal pain, Reports nausea and Denies vomiting Genitourinary: Genitourinary: Denies nocturia and Denies dysuria [facility] Past Medical History Medical History Acute pain of both hips Acute pain of both knees Amputation toe Anemia Arthritis of knee, degenerative Carpal tunnel syndrome, bilateral Cellulitis of right foot Charcot ankle Chicken pox Chronic abdominal pain Chronic diarrhea Chronic pain Colon cancer screening 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
[2022-02-08 17:22] VITALS: BP 163/71; PULSE 86; RESP 22; O2SAT 99
[2022-02-08 18:05] VITALS: BP 159/62; PULSE 86; RESP 17; O2SAT 97
[2022-02-08 18:49] VITALS: BP 174/88; PULSE 88; RESP 16; O2SAT 98
== END 2022-02-08 18:50 | disposition home or self-care (01) ==
PROVIDERS: Emergency Medicine; Emergency Provider Emergency Medicine; PCP Internal Medicine
DX: U07.1 COVID-19 (principal); Z87.891 Personal history of nicotine dependence; M19.90 Unspecified osteoarthritis, unspecified site; E11.9 Type 2 diabetes mellitus without complications; I10 Essential (primary) hypertension; E03.9 Hypothyroidism, unspecified; Z79.4 Long term (current) use of insulin
CPT/HCPCS: 36415; 71045; 80053; 85025; 93005; 99284

== ENCOUNTER → 2022-02-14 14:33 | Outpatient (CLI) | payer MEDICARE, BC, SELFPAY ==
--- NOTE | ~2022-02-14 | CT_ITS ---
EXAMINATION: CTA chest PE protocol DATE: 02/14/2022 15:09 INDICATION: Dyspnea on exertion. TECHNIQUE: Computed tomography angiography (CTA) of the chest was performed with 100 mL Omnipaque-350 intravenous contrast timed to evaluate the pulmonary arteries. Coronal maximum intensity projection 3D-reconstructions were created by the technologist. Automated exposure control and iterative reconst ruction technique were employed. The dose-length product was 609.58 mGy-cm. COMPARISON: Chest CT 01/12/2021 FINDINGS: There is mild atelectasis bilaterally. A calcified right lung nodule and calcified right hi lar and mediastinal lymph nodes are consistent with old granulomatous disease. No pleural effusion. C ardiomegaly is noted. No pericardial effusion. There are coronary artery calcifications. The central pulmonary arteries are enlarged, consistent with pulmonary arterial hypertension. There is no pulmona ry embolus. Calcifications in the liver and spleen are consistent with old granulomatous disease. The re is mild thoracic spondylosis. IMPRESSION: 1. No pulmonary embolus. 2. Cardiomegaly. Reviewed, dictated and finalized at location A. D TRAINING AGENT
[2022-02-14 15:01] LABS: Estimated Glomerular Filt Rate 41
== END ==
PROVIDERS: PCP Internal Medicine; Visit Provider Clinical Nurse Specialist
DX: R06.09 Other forms of dyspnea (principal); I51.7 Cardiomegaly
CPT/HCPCS: 71275; Q9967

== ENCOUNTER 2022-03-01 11:19 | Emergency (ER) | payer MEDICARE, BC, SELFPAY ==
--- NOTE | ~2022-03-01 | XR_ITS ---
Clinical Indication: Shortness of breath, cough PA and lateral views of the chest: Comparison: 02/08/2022 Findings: The lungs are clear, without evidence of focal consolidation or pleural effusion. Cardiome diastinal silhouette is within normal limits. Bones and soft tissues are unremarkable. Impression: Normal chest. Reviewed, dictated and finalized at location . RISK OB Impression: Normal chest.
--- NOTE | 2022-03-01 11:21 | ED.URI ---
HPI - URI/Sore Throat General Chief Complaint: Upper Respiratory Infection Stated Complaint: chills, headache, body ache, trouble breathing Time Seen by Provider: 03/01/22 11:21 Source: patient Mode of arrival: ambulatory Limitations: no limitations History of Present Illness HPI Narrative: Aleyda is a 71-year-old female patient presenting to clinic today with complaints of chills, headache, body aches, difficulty breathing. She reports she tested positive for COVID back on January 30 and her symptoms improved however she developed current symptoms on and took a rapid COVID test and tested positive again she reports that she also tested her brother who is having symptoms and he tested positive for COVID. History of asthma and former smoker MD elicited complaint: cough, rhinorrhea, nasal congestion, sinus pain and other ( Shortness breath) Related Data Home Medications Medication Instructions Recorded Confirmed aspirin 81 mg tablet,delayed 81 mg PO DAILY 01/02/19 12/01/21 release (Adult Low Dose Aspirin) cholecalciferol (vitamin D3) 125 5,000 unit PO DAILY 01/02/19 12/01/21 mcg (5,000 unit) tablet multivitamin 1 tablet PO DAILY 01/02/19 12/01/21 hydroxychloroquine 200 mg tablet 200 mg PO BID 05/06/20 12/01/21 (Plaquenil) montelukast 10 mg tablet 10 mg PO HS 05/06/20 12/01/21 (Singulair) Acid Pants Busheler (omeprazole) 20 mg PO DAILY 06/18/20 12/01/21 atorvastatin 40 mg tablet 40 mg PO HS 06/18/20 12/01/21 insulin glargine U-300 conc 300 60 unit subcut HS 11/09/20 12/01/21 unit/mL (3 mL) subcutaneous pen (Toujeo Max U-300 SoloStar) rivaroxaban 2.5 mg tablet (Xarelto) 2.5 mg PO BID 09/08/21 12/01/21 leflunomide 10 mg tablet 20 mg PO DAILY 09/24/21 12/01/21 calcium carbonate 600 mg calcium 1,200 mg PO DAILY 12/01/21 12/01/21 (1,500 mg) tablet ferrous sulfate 325 mg (65 mg 650 mg PO DAILY 10/05/22 10/05/22 iron) tablet glimepiride 2 mg tablet 2 mg PO DAILY 12/01/21 12/01/21 Allergies Allergy/AdvReac Type Severity Reaction Status Date / Time daptomycin Allergy Intermediate Hives Verified 03/01/22 11:24 valsartan Allergy Intermediate Hives Verified 03/01/22 11:24 vancomycin Allergy Intermediate Hives Verified 03/01/22 11:24 povidone-iodine Allergy Mild Hives Verified 03/01/22 11:24 [From Betadine] lisinopril Allergy Cough Verified 03/01/22 11:24 sulfadimethoxine Allergy Vomiting Verified 03/01/22 11:24 trimethoprim Allergy Itching Verified 03/01/22 11:24 Review of Systems Review of Systems: Pertinent positives per HPI. Patient denies any fever, rash, visual changes, dizziness, chest pain, palpitations, nausea, vomiting, diarrhea, constipation, abdominal pain, or any urinary issues. 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
[2022-03-01 11:26] VITALS: BP 113/50; PULSE 82; RESP 16; TEMP 36.6; O2SAT 98
== END 2022-03-01 12:10 | disposition home or self-care (01) ==
PROVIDERS: Emergency Provider Nurse Practitioner Family; PCP Internal Medicine
DX: U07.1 COVID-19 (principal); Z87.891 Personal history of nicotine dependence; I10 Essential (primary) hypertension; I25.2 Old myocardial infarction; E03.9 Hypothyroidism, unspecified; M06.9 Rheumatoid arthritis, unspecified; E11.51 Type 2 diabetes mellitus with diabetic peripheral angiopathy without gangrene; E11.43 Type 2 diabetes mellitus with diabetic autonomic (poly)neuropathy; K31.84 Gastroparesis; E11.42 Type 2 diabetes mellitus with diabetic polyneuropathy; Z79.4 Long term (current) use of insulin; Z79.84 Long term (current) use of oral hypoglycemic drugs
CPT/HCPCS: 71046; 99213; G0463

== ENCOUNTER 2022-05-04 16:42 | Emergency (ER) | payer MEDICARE, BC, SELFPAY ==
--- NOTE | ~2022-05-04 | XR_ITS ---
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 RESULT: Lines, tubes, and devices: None. Lungs and pleura: Clear. Calcified right lower lung granuloma. Cardiomediastinal silhouette: Stable. Other: No acute osseous or upper abdominal finding. IMPRESSION: No acute cardiopulmonary process. Reviewed, dictated and finalized at location K. SCRUBBER OPERATOR
[2022-05-04 16:55] VITALS: BP 140/54; PULSE 81; RESP 16; TEMP 36.6; O2SAT 99
--- NOTE | 2022-05-04 16:59 | ECG_ITS ---
Measurements Intervals [employer] Rate: 79 P: 19 NH: 163 QRS: -22 QRSD: 100 T: 29 QT: 423 QTc: 486 Interpretive Statements SINUS RHYTHM CANNOT RULE OUT SEPTAL INFARCT, AGE INDETERMINATE ABNORMAL ECG COMPARED TO ECG 02/08/2022 13:43:45 NO SIGNIFICANT CHANGES Electronically Signed On 05-04-2022 18:56:56 DIRECTOR ONCOLOGY by Dewayne Jacobson D.O.
[2022-05-04 17:26] LABS: Basophils Percent Auto 0.4 % (0.2-1.2); Eosinophils Absolute Auto 0.2 K/mm3 (0-0.3); Eosinophils Percent Auto 3.3 % (0-4.4); Hematocrit 30.7 % (37.0-47.0); Hemoglobin 9.7 g/dL (12.0-15.0); Immature Granulocyte Absolute 0.01 K/mm3 (0.00-0.031); Immature Granulocyte Percent A 0.2 % (0-0.5); Lymphocytes Percent Auto 26.5 % (18.3-44.2); Mean Corpuscular HGB Conc 31.6 g/dl (32-36); Mean Corpuscular Hemoglobin 29.2 pg (26-34); Mean Corpuscular Volume 92.5 fl (80-100); Mean Platelet Volume 12.3 fl (7.4-10.4); Monocytes Absolute Auto 0.5 K/mm3 (0.1-0.6); Monocytes Percent Auto 9.2 % (2.6-8.5); Neutrophils Percent Auto 60.4 % (45.5-73.1); Platelet Count Result 140 k/mm3 (150-375); Red Blood Count 3.32 M/mm3 (4.2-5.4); Red Cell Distribution Width 14.6 % (11.5-14.5); White Blood Count 4.9 K/mm3 (4.5-10.0)
[2022-05-04 17:36] LABS: Alanine Aminotransferase 26 U/L (6-35); Albumin Level 3.7 g/dL (3.5-5.1); Alkaline Phosphatase 121 U/L (38-126); Anion Gap 5 mmol/L (8-16); Aspartate Amino Transferase 32 U/L (14-36); Bilirubin,Total 0.5 mg/dL (0.2-1.3); Blood Urea Nitrogen 30 mg/dL (7-17); Calcium 8.3 mg/dL (8.4-10.2); Carbon Dioxide 30 mmol/L (22-30); Chloride 102 mmol/L (98-107); Estimated CRCL calculation 44 ml/min; Estimated Glomerular Filt Rate 45; Glucose 213 mg/dL (65-110); Potassium 4.1 mmol/L (3.4-5.0); Sodium 137 mmol/L (137-145)
[2022-05-04 20:10] VITALS: BP 135/69; PULSE 84; RESP 16; TEMP 36.4; O2SAT 98
[2022-05-04 21:18] LABS: Appearance Urine Slightly Cloudy (Clear); Bilirubin Urine Negative (Negative); Blood Urine Trace-lysed (Negative); Glucose Urine UA Negative (Negative); Ketones Urine Negative (Negative); Leukocyte Esterase Ur 1+ LEU/UL (Negative); Nitrate Urine Negative (Negative); Protein Urine 2+ mg/dL (Negative); Specific Grav Ur 1.025 (1.001-1.035); Urobilinogen Urine 0.2 mg/dL (<2.0); pH Urine 5.5 (5.0-9.0)
[2022-05-04 21:20] LABS: Color Urine Light Yellow (Yellow)
[2022-05-04 21:22] LABS: Add Urine Microscopic? YES
[2022-05-04 21:24] LABS: Bacteria Urine 3+ /hpf
[2022-05-04 21:25] LABS: WBC Clumps Urine Present /HPF
--- NOTE | 2022-05-04 21:35 | ED.GENADULT ---
HPI - General Adult General Chief complaint: Weakness Stated complaint: weakness Time Seen by Provider: 05/04/22 20:35 History of Present Illness HPI narrative: This is a 71-year-old woman presenting ED with a chief complaint of weakness. Last night the patient woke up and was sweating and did not feel well. She was dizzy and lightheaded and had trouble getting up to go to the bathroom. She checked her blood sugar at that time and it was 40. She then had some food and her symptoms resolved. She called her primary care physician the next day and was told to come to the hospital as this may have been a stroke. The patient is currently states that she feels a little bit weaker than usual but has no focal complaints. She denies chest pain, difficulty breathing, abdominal pain, urinary symptoms. she does report diarrhea although that is her normal bowel movements. patient reports that she took her normal insulin dose and had dinner last night. She does not typically have hypoglycemic events. Related Data Home Medications Medication Instructions Recorded Confirmed aspirin 81 mg tablet,delayed 81 mg PO DAILY 01/02/19 03/14/22 release (Adult Low Dose Aspirin) cholecalciferol (vitamin D3) 125 5,000 unit PO DAILY 01/02/19 03/14/22 mcg (5,000 unit) tablet multivitamin 1 tablet PO DAILY 01/02/19 03/14/22 hydroxychloroquine 200 mg tablet 200 mg PO BID 05/06/20 03/14/22 (Plaquenil) montelukast 10 mg tablet 10 mg PO HS 05/06/20 03/14/22 (Singulair) Acid Utility Locator (omeprazole) 20 mg PO DAILY 06/18/20 03/14/22 atorvastatin 40 mg tablet 40 mg PO HS 06/18/20 03/14/22 insulin glargine U-300 conc 300 60 unit subcut HS 11/09/20 03/14/22 unit/mL (3 mL) subcutaneous pen (Toujeo Max U-300 SoloStar) rivaroxaban 2.5 mg tablet (Xarelto) 2.5 mg PO BID 09/08/21 03/14/22 calcium carbonate 600 mg calcium 1,200 mg PO DAILY 12/01/21 03/14/22 (1,500 mg) tablet ferrous sulfate 325 mg (65 mg 650 mg PO DAILY 12/01/21 03/14/22 iron) tablet glimepiride 2 mg tablet 2 mg PO DAILY 12/01/21 03/14/22 omega-3 fatty acids 500 mg capsule 500 mg PO BID 03/10/22 03/14/22 Allergies Allergy/AdvReac Type Severity Reaction Status Date / Time daptomycin Allergy Intermediate Hives Verified 03/24/22 08:20 valsartan Allergy Intermediate Hives Verified 03/24/22 08:20 vancomycin Allergy Intermediate Hives Verified 03/24/22 08:20 povidone-iodine Allergy Mild Hives Verified 03/24/22 08:20 [From Betadine] lisinopril Allergy Cough Verified 03/24/22 08:20 sulfadimethoxine Allergy Vomiting Verified 03/24/22 08:20 trimethoprim Allergy Itching Verified 03/24/22 08:20 PMFSH Past Medical History Medical History Abdominal pain Acute pain of both hips Acute pain of both knees Amputation toe Anemia Arthritis of knee, degenerative Carpal tunnel syndrome, bilateral Cellulitis of right foot Charcot ankle Chicken pox Chronic abdominal pain Chronic diarrhea Chronic pain Colon cancer screening 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 2 diabetes mellitus Diarrhea Ear ache Essential hypertension Flat foot [pes planus] (acquired), left foot Gastroparesis Heartburn Hernia History of [place] (myocardial infarction) Hives Hypertension Hypothyroidism 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 Microscopic colitis Non-pressure chronic ulcer of other part of unspecified foot limited to breakdown of skin Non-pressure chronic ulcer of right heel and midfoot with bone involvement without evidence of necrosis Numbness in both hands Obesity Other chronic pain Pain in left hand Peripheral arterial disease Pes planus of both feet Pneumonia Polyneuropathy Polyneuropathy 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 Posterior tibial tendon dysfunction, left Pre-op evaluation Rheumatoid arthritis Rheumatoid arthritis of unspecified site with involvement of other organs and systems Rib pain on right side Right wrist pain Sore
[2022-05-04 21:44] LABS: Influenza A QL RT-PCR Negative (Negative); Influenza B QL RT-PCR Negative (Negative); RSV RNA, RT-PCR Negative (Negative); SARS-CoV-2 RNA PCR Negative
[2022-05-04] MEDS: SODIUM CHLORIDE 0.9% IV 1,000 ML 999 ML IV CONT (21:54)
[2022-05-04 22:34] VITALS: BP 160/70; PULSE 86; RESP 18; O2SAT 99
== END 2022-05-04 22:35 | disposition home or self-care (01) ==
PROVIDERS: Emergency Medicine; Emergency Provider Emergency Medicine; PCP Internal Medicine
DX: E11.649 Type 2 diabetes mellitus with hypoglycemia without coma (principal); Z20.822 Contact with and (suspected) exposure to COVID-19; I10 Essential (primary) hypertension; E11.610 Type 2 diabetes mellitus with diabetic neuropathic arthropathy; E11.43 Type 2 diabetes mellitus with diabetic autonomic (poly)neuropathy; K31.84 Gastroparesis; E11.42 Type 2 diabetes mellitus with diabetic polyneuropathy; E11.51 Type 2 diabetes mellitus with diabetic peripheral angiopathy without gangrene; I73.9 Peripheral vascular disease, unspecified; I25.2 Old myocardial infarction; E66.9 Obesity, unspecified; Z68.38 Body mass index [BMI] 38.0-38.9, adult; E03.9 Hypothyroidism, unspecified; M17.9 Osteoarthritis of knee, unspecified; M06.9 Rheumatoid arthritis, unspecified; M21.42 Flat foot [pes planus] (acquired), left foot; M21.41 Flat foot [pes planus] (acquired), right foot; R12 Heartburn; Z87.891 Personal history of nicotine dependence; Z89.412 Acquired absence of left great toe; Z79.82 Long term (current) use of aspirin; Z79.4 Long term (current) use of insulin; N39.0 Urinary tract infection, site not specified
CPT/HCPCS: 36415; 71045; 80053; 81001; 85025; 87077; 87086; 87186; 87637; 93005; 96365; 99284; J0696; J7030

== ENCOUNTER 2022-10-20 10:16 | Outpatient (CLI) | payer MEDICARE, BC, SELFPAY ==
[2022-10-20 17:10] LABS: Alanine Aminotransferase 30 U/L (6-35); Albumin Level 3.5 g/dL (3.5-5.1); Alkaline Phosphatase 100 U/L (38-126); Anion Gap 2 mmol/L (8-16); Aspartate Amino Transferase 45 U/L (14-36); Bilirubin,Total 0.3 mg/dL (0.2-1.3); Blood Urea Nitrogen 26 mg/dL (7-17); Calcium 8.3 mg/dL (8.4-10.2); Carbon Dioxide 27 mmol/L (22-30); Chloride 106 mmol/L (98-107); Estimated Glomerular Filt Rate 49; Glucose 126 mg/dL (65-110); Potassium 4.3 mmol/L (3.4-5.0); Sodium 135 mmol/L (137-145)
[2022-10-20 17:31] LABS: Appearance Urine Cloudy (Clear); Bacteria Urine 2+ /hpf; Bilirubin Urine Negative (Negative); Blood Urine 2+ (Negative); Color Urine Yellow (Yellow); Glucose Urine UA Negative (Negative); Ketones Urine Negative (Negative); Leukocyte Esterase Ur Negative LEU/UL (Negative); Nitrate Urine Negative (Negative); Non Pathogenic Casts 0-2; Protein Urine 3+ mg/dL (Negative); Specific Grav Ur 1.013 (1.001-1.035); Squamous Epithelial Cell Urine Moderate /hpf (Few); Urobilinogen Urine 0.2 mg/dL (<2.0); WBC Urine 0-5 /hpf; pH Urine 6.5 (5.0-9.0)
[2022-10-20 17:35] LABS: Add Urine Microscopic? YES
[2022-10-20 17:43] LABS: Basophils Percent Auto 0.5 % (0.2-1.2); Eosinophils Absolute Auto 0.2 K/mm3 (0-0.3); Eosinophils Percent Auto 4.3 % (0-4.4); Hematocrit 30.2 % (37.0-47.0); Hemoglobin 9.4 g/dL (12.0-15.0); Immature Granulocyte Absolute 0.02 K/mm3 (0.00-0.031); Immature Granulocyte Percent A 0.5 % (0-0.5); Lymphocytes Absolute Auto 1.19 K/mm3 (0.9-3.2); Lymphocytes Percent Auto 28.7 % (18.3-44.2); Mean Corpuscular HGB Conc 31.1 g/dl (32-36); Mean Corpuscular Hemoglobin 28.7 pg (26-34); Mean Corpuscular Volume 92.1 fl (80-100); Mean Platelet Volume 12.9 fl (7.4-10.4); Monocytes Absolute Auto 0.5 K/mm3 (0.1-0.6); Monocytes Percent Auto 11.1 % (2.6-8.5); Neutrophils Absolute Auto 2.3 K/mm3 (1.3-6.7); Neutrophils Percent Auto 54.9 % (45.5-73.1); Platelet Count Result 124 k/mm3 (150-375); Red Blood Count 3.28 M/mm3 (4.2-5.4); Red Cell Distribution Width 15.9 % (11.5-14.5); White Blood Count 4.2 K/mm3 (4.5-10.0)
== END 2022-10-20 10:17 | disposition home or self-care (01) ==
PROVIDERS: PCP Internal Medicine; Visit Provider Nurse Practitioner
DX: R42 Dizziness and giddiness (principal); R19.7 Diarrhea, unspecified
CPT/HCPCS: 36415; 80053; 81001; 84443; 85025; 85055

== ENCOUNTER 2022-12-26 14:31 | Outpatient (CLI) | payer MEDICARE, BC, SELFPAY ==
[2022-12-26 14:47] LABS: Basophils Percent Auto 0.5 % (0.2-1.2); Eosinophils Absolute Auto 0.2 K/mm3 (0-0.3); Hematocrit 32.8 % (37.0-47.0); Hemoglobin 10.2 g/dL (12.0-15.0); Immature Granulocyte Absolute 0.02 K/mm3 (0.00-0.031); Immature Granulocyte Percent A 0.3 % (0-0.5); Lymphocytes Percent Auto 25.3 % (18.3-44.2); Mean Corpuscular HGB Conc 31.1 g/dl (32-36); Mean Corpuscular Hemoglobin 28.3 pg (26-34); Mean Corpuscular Volume 91.1 fl (80-100); Mean Platelet Volume 10.9 fl (7.4-10.4); Monocytes Absolute Auto 0.5 K/mm3 (0.1-0.6); Monocytes Percent Auto 9.1 % (2.6-8.5); Neutrophils Absolute Auto 3.6 K/mm3 (1.3-6.7); Neutrophils Percent Auto 60.8 % (45.5-73.1); Platelet Count Result 158 k/mm3 (150-375); Red Cell Distribution Width 14.2 % (11.5-14.5); White Blood Count 5.9 K/mm3 (4.5-10.0)
[2022-12-26 18:19] LABS: Alanine Aminotransferase 26 U/L (6-35); Albumin Level 3.8 g/dL (3.5-5.1); Alkaline Phosphatase 116 U/L (38-126); Anion Gap 7 mmol/L (8-16); Aspartate Amino Transferase 33 U/L (14-36); Bilirubin,Total 0.4 mg/dL (0.2-1.3); Blood Urea Nitrogen 32 mg/dL (7-17); Calcium 8.8 mg/dL (8.4-10.2); Carbon Dioxide 26 mmol/L (22-30); Chloride 105 mmol/L (98-107); Estimated Glomerular Filt Rate 40; Glucose 232 mg/dL (65-110); Lactate Dehydrogenase 273 U/L (120-246); Potassium 3.7 mmol/L (3.4-5.0); Sodium 138 mmol/L (137-145)
[2022-12-26 18:23] LABS: Iron 76 ug/dL (37-170)
[2022-12-26 18:32] LABS: Percent Iron Saturation 24 % (20-50)
[2022-12-26 19:27] LABS: Folic Acid > 20.0 ng/mL (2.76->20)
[2022-12-29 11:43] LABS: Methylmalonic Acid 203 nmol/L (87-318)
[2022-12-31 13:46] LABS: Soluble Transferrin Receptor 2.79 mg/L (0.76-1.76)
== END 2022-12-26 14:32 | disposition home or self-care (01) ==
LOC: ANHLAB 14:34
PROVIDERS: PCP Internal Medicine; Visit Provider Internal Medicine Hematology & Oncology
DX: D64.9 Anemia, unspecified (principal)
CPT/HCPCS: 36415; 80053; 82607; 82728; 82746; 83540; 83550; 83615; 83921; 84238; 85025

== ENCOUNTER → 2022-12-29 07:38 | Outpatient (CLI) | payer MEDICARE, BC, SELFPAY ==
--- NOTE | ~2022-12-29 | US_ITS ---
EXAMINATION: US abdomen complete DATE: 12/29/2022 08:16 INDICATION: Other secondary thrombocytopenia. TECHNIQUE: Multiple grayscale and Doppler ultrasound images of the abdomen were obtained. COMPARISON: CT abdomen 12/06/2021 FINDINGS: Sensitivity is decreased by obesity. Abdominal aorta is normal in caliber. Inferior vena ca va is normal. The visualized portions of the head and body of the pancreas are normal. The liver is n ormal without focal lesion. There is normal flow in main portal vein. The gallbladder is absent. The common duct is normal and measures 6 mm. The kidneys are normal in size. The spleen is normal in size . Calcifications in the spleen are consistent with old granulomatous disease. IMPRESSION: 1. No etiology for thrombocytopenia. Reviewed, dictated and finalized at location E.
== END ==
PROVIDERS: PCP Internal Medicine Hematology & Oncology; Visit Provider Internal Medicine Hematology & Oncology
DX: D69.59 Other secondary thrombocytopenia (principal)
CPT/HCPCS: 76700

== ENCOUNTER 2023-01-27 10:18 | Outpatient (CLI) | payer MEDICARE, BC, SELFPAY ==
--- NOTE | ~2023-01-27 | XR_ITS ---
Left Knee Technique: AP, lateral, and sunrise views were obtained. Clinical History: Pain Findings: No fracture or dislocation is seen. Osseous alignment is anatomic. There is moderate to adv anced tricompartmental degenerative change. Small joint effusion is seen. Impression: Moderate to advanced tricompartmental degenerative change. Small joint effusion. Reviewed, dictated and finalized at [facility]. ECT SCIENTIFIC RESEARCH Impression: Moderate to advanced tricompartmental degenerative change. Small joint effusion.
--- NOTE | ~2023-01-27 | XR_ITS ---
AP and lateral views of the right hip Clinical history: Pain Findings: No acute fracture or dislocation is seen. Osseous alignment is anatomic. Right hip joint sp viet is preserved. There is minimal degenerative spurring. Soft tissues are unremarkable. Impression: Minimal degenerative change of the right hip joint. Reviewed, dictated and finalized at location . GER OF SECURITY Impression: Minimal degenerative change of the right hip joint.
--- NOTE | ~2023-01-27 | XR_ITS ---
Left Shoulder Technique: AP and axillary views were obtained. Clinical History: Pain Findings: No fracture or dislocation is seen. Osseous alignment is anatomic. There is mild AC joint d egenerative change. Glenohumeral joint is intact. Possible tiny focus of calcific tendinitis of the d istal supraspinatus tendon versus enthesopathic change. Impression: Possible small focus of calcific tendinitis of the distal supraspinatus tendon versus enthesopathic c maite. Reviewed, dictated and finalized at location M. GER INSIDE Impression: Possible small focus of calcific tendinitis of the distal supraspinatus tendon versus enthesopathic change.
== END 2023-01-27 10:19 ==
PROVIDERS: PCP Clinical Nurse Specialist; Visit Provider Clinical Nurse Specialist
DX: M25.512 Pain in left shoulder (principal); M25.551 Pain in right hip; M17.12 Unilateral primary osteoarthritis, left knee; M25.462 Effusion, left knee
CPT/HCPCS: 73030; 73502; 73562

== ENCOUNTER 2023-04-11 13:52 | Outpatient (CLI) | payer MEDICARE, BC, SELFPAY ==
[2023-04-11 14:09] LABS: Basophils Percent Auto 0.7 % (0.2-1.2); Eosinophils Absolute Auto 0.3 K/mm3 (0-0.3); Eosinophils Percent Auto 6.7 % (0-4.4); Hematocrit 28.9 % (37.0-47.0); Immature Granulocyte Absolute 0.02 K/mm3 (0.00-0.031); Immature Granulocyte Percent A 0.5 % (0-0.5); Lymphocytes Percent Auto 22.3 % (18.3-44.2); Mean Corpuscular HGB Conc 31.1 g/dl (32-36); Mean Corpuscular Hemoglobin 27.7 pg (26-34); Mean Corpuscular Volume 88.9 fl (80-100); Mean Platelet Volume 12.3 fl (7.4-10.4); Monocytes Absolute Auto 0.4 K/mm3 (0.1-0.6); Monocytes Percent Auto 10.4 % (2.6-8.5); Neutrophils Absolute Auto 2.4 K/mm3 (1.3-6.7); Neutrophils Percent Auto 59.4 % (45.5-73.1); Platelet Count Result 131 k/mm3 (150-375); Red Blood Count 3.25 M/mm3 (4.2-5.4); Red Cell Distribution Width 15.3 % (11.5-14.5)
[2023-04-11 16:26] LABS: Iron 43 ug/dL (37-170)
[2023-04-11 16:31] LABS: Anion Gap 4 mmol/L (8-16); Blood Urea Nitrogen 27 mg/dL (7-17); Calcium 8.4 mg/dL (8.4-10.2); Carbon Dioxide 26 mmol/L (22-30); Chloride 105 mmol/L (98-107); Estimated Glomerular Filt Rate 40; Glucose 424 mg/dL (65-110); Potassium 3.9 mmol/L (3.4-5.0); Sodium 135 mmol/L (137-145)
[2023-04-11 16:36] LABS: Percent Iron Saturation 14 % (20-50)
== END 2023-04-11 13:53 | disposition home or self-care (01) ==
LOC: ANHLAB 13:54
PROVIDERS: PCP Internal Medicine; Visit Provider Internal Medicine Hematology & Oncology
DX: D64.9 Anemia, unspecified (principal)
CPT/HCPCS: 36415; 80048; 82728; 83540; 83550; 85025

== ENCOUNTER 2023-08-10 10:55 | Outpatient (CLI) | payer MEDICARE, BC, SELFPAY ==
--- NOTE | ~2023-08-10 | XR_ITS ---
Lumbosacral Spine: AP and lateral views Clinical History: Pain Findings: The normal lordotic curve is maintained. No fracture or subluxation seen. Suggestion of 6 l umbar type vertebral bodies. There is mild to moderate degenerative change throughout the lumbar spin e. There is moderate facet arthropathy throughout the lumbar spine, worst at L4-L5 and L5-S1. The sac roiliac joints are normally outlined. Impression: Moderate degenerative spondylosis, as above. Reviewed, dictated and finalized at location M. Impression: Moderate degenerative spondylosis, as above.
== END 2023-08-10 10:56 | disposition home or self-care (01) ==
LOC: ANHIMG 10:56
PROVIDERS: PCP Clinical Nurse Specialist; Visit Provider Clinical Nurse Specialist
DX: M54.16 Radiculopathy, lumbar region (principal); R20.0 Anesthesia of skin; M43.06 Spondylolysis, lumbar region
CPT/HCPCS: 72100

== ENCOUNTER 2023-08-30 11:45 | Emergency (ER) | payer MEDICARE, BC, SELFPAY ==
[2023-08-30 11:50] VITALS: BP 157/65; PULSE 99; RESP 19; TEMP 36.6; O2SAT 98
[2023-08-30 12:36] LABS: Glucose Point of Care 192 mg/dl (65-105)
[2023-08-30 13:32] VITALS: BP 135/69; PULSE 81; RESP 16; O2SAT 100
[2023-08-30 14:15] LABS: Basophils Percent Auto 0.7 % (0.2-1.2); Eosinophils Absolute Auto 0.2 K/mm3 (0-0.3); Eosinophils Percent Auto 3.3 % (0-4.4); Hematocrit 30.7 % (37.0-47.0); Hemoglobin 10.1 g/dL (12.0-15.0); Immature Granulocyte Absolute 0.03 K/mm3 (0.00-0.031); Immature Granulocyte Percent A 0.5 % (0-0.5); Lymphocytes Absolute Auto 1.55 K/mm3 (0.9-3.2); Lymphocytes Percent Auto 26.7 % (18.3-44.2); Mean Corpuscular HGB Conc 32.9 g/dl (32-36); Mean Corpuscular Hemoglobin 28.7 pg (26-34); Mean Corpuscular Volume 87.2 fl (80-100); Mean Platelet Volume 12.7 fl (7.4-10.4); Monocytes Absolute Auto 0.6 K/mm3 (0.1-0.6); Monocytes Percent Auto 9.6 % (2.6-8.5); Neutrophils Absolute Auto 3.4 K/mm3 (1.3-6.7); Neutrophils Percent Auto 59.2 % (45.5-73.1); Platelet Count Result 132 k/mm3 (150-375); Red Blood Count 3.52 M/mm3 (4.2-5.4); Red Cell Distribution Width 16.6 % (11.5-14.5); White Blood Count 5.8 K/mm3 (4.5-10.0)
[2023-08-30 14:28] LABS: Alanine Aminotransferase 28 U/L (6-35); Albumin Level 3.5 g/dL (3.5-5.1); Alkaline Phosphatase 103 U/L (38-126); Anion Gap 4 mmol/L (4-12); Aspartate Amino Transferase 37 U/L (14-36); Bilirubin,Total 0.4 mg/dL (0.2-1.3); Blood Urea Nitrogen 26 mg/dL (7-17); Calcium 8.8 mg/dL (8.4-10.2); Carbon Dioxide 25 mmol/L (22-30); Chloride 110 mmol/L (98-107); Estimated CRCL calculation 39 ml/min; Estimated Glomerular Filt Rate 40; Glucose 144 mg/dL (65-110); Potassium 3.9 mmol/L (3.4-5.0); Sodium 139 mmol/L (137-145)
--- NOTE | 2023-08-30 15:22 | ED.GENADULT ---
HPI - General Adult General Chief complaint: GI Bleed Stated complaint: blood in stool Time Seen by Provider: 08/30/23 13:34 History of Present Illness HPI narrative: Patient is a 73-year-old female who presents to the emergency department this afternoon complaining of bright red blood per rectum once today. Patient admits that she has had similar symptoms in the past, just 1 prior episode and at that time she was informed that she needs to follow up with GI for colonoscopy and she does have a colonoscopy scheduled next month with Dr. Welch. Patient is currently denying any abdominal pain, any nausea or vomiting, lightheadedness or dizziness, and denies any fevers or chills at home. No additional symptoms or concerns at this time. Related Data Home Medications Medication Instructions Recorded Confirmed cholecalciferol (vitamin D3) 125 5,000 unit PO DAILY 01/02/19 08/03/23 mcg (5,000 unit) tablet multivitamin 1 tablet PO DAILY 01/02/19 08/03/23 hydroxychloroquine 200 mg tablet 200 mg PO BID 05/06/20 08/03/23 (Plaquenil) atorvastatin 40 mg tablet 40 mg PO HS 06/18/20 08/03/23 insulin glargine U-300 conc 300 60 unit subcut HS 11/09/20 08/03/23 unit/mL (3 mL) subcutaneous pen (Toujeo Max U-300 SoloStar) rivaroxaban 2.5 mg tablet (Xarelto) 2.5 mg PO BID 09/08/21 08/03/23 calcium carbonate 1,200 mg PO DAILY 12/01/21 08/03/23 ferrous sulfate 325 mg (65 mg 650 mg PO DAILY 12/01/21 08/03/23 iron) tablet glimepiride 2 mg tablet 2 mg PO DAILY 12/01/21 08/03/23 omega-3 fatty acids 500 mg capsule 500 mg PO BID 03/10/22 08/03/23 leflunomide 20 mg tablet 20 mg PO DAILY 01/27/23 08/03/23 Allergies Allergy/AdvReac Type Severity Reaction Status Date / Time daptomycin Allergy Intermediate Hives Verified 08/30/23 11:54 valsartan Allergy Intermediate Hives Verified 08/30/23 11:54 vancomycin Allergy Intermediate Hives Verified 08/30/23 11:54 povidone-iodine Allergy Mild Hives Verified 08/30/23 11:54 [From Betadine] lisinopril Allergy Cough Verified 08/30/23 11:54 sulfadimethoxine Allergy Vomiting Verified 08/30/23 11:54 trimethoprim Allergy Itching Verified 08/30/23 11:54 Review of Systems Review of Systems: All systems are reviewed and are negative unless stated otherwise in the HPI. 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 2 diabetes mellitus Diarrhea Ear ache Essential hypertension Flat foot [pes planus] (acquired), left foot Gastroparesis Heartburn Hernia History of [place] (myocardial infarction) Hives Hypertension Hypothyroidism Left knee DJD Left shoulder pain 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 Microscopic colitis Non-pressure chronic ulcer of other part of unspecified foot limited to breakdown of skin Non-pressure chronic ulcer of right heel and midfoot with bone involvement without evidence of necrosis Numbness in both hands Obesity Other chronic pain Pain in left hand Peripheral arterial disease Pes planus of both feet Pneumonia Polyneuropathy Polyneuropathy 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 Posterior tibial tendon dysfunction, left Pre-op evaluation Rheumatoid arthritis Rheumatoid arthritis of unspecified site with involvement of other organs and systems Rib pain on right side Right knee DJD Right wrist pain Rotator cuff tendonitis Sore throat Thrombocytopenia Type 2 diabetes mellitus Type 2 diabetes mellitus with complication UTI (urinary tract infection) Surgical History Surgical History Amputation of left great toe H/O
== END 2023-08-30 15:35 | disposition home or self-care (01) ==
PROVIDERS: Emergency Provider Emergency Medicine; PCP Clinical Nurse Specialist
DX: K62.5 Hemorrhage of anus and rectum (principal); Z79.4 Long term (current) use of insulin; Z79.01 Long term (current) use of anticoagulants; E66.9 Obesity, unspecified; Z68.41 Body mass index [BMI] 40.0-44.9, adult; I10 Essential (primary) hypertension; E03.9 Hypothyroidism, unspecified; E11.9 Type 2 diabetes mellitus without complications; M06.9 Rheumatoid arthritis, unspecified; Z87.891 Personal history of nicotine dependence
CPT/HCPCS: 36415; 80053; 82948; 85025; 86850; 86900; 86901; 99283

== ENCOUNTER 2023-09-20 15:00 | Inpatient (IN) | payer MEDICARE, BC, SELFPAY ==
[2023-09-20] VITALS (12 sets, daily range): BP systolic 108–165; BP diastolic 36–71; PULSE 84–122; RESP 12–32; TEMP 36.4–37.9; O2SAT 89–100; BMI 43.6
--- NOTE | ~2023-09-20 | CT_ITS ---
EXAMINATION: CTA chest PE abdomen pel DATE: 09/20/2023 17:56 INDICATION: sob, hypoxia, UTI, abd pain, fevers TECHNIQUE: Computed tomography angiography (CTA) of the chest was performed with 100 mL Omnipaque-350 intravenous contrast timed to evaluate the pulmonary arteries, followed by portal venous phase imagi ng of the abdomen and pelvis. Coronal maximum intensity projection 3D-reconstructions were created by the technologist. The dose-length product (DLP) was .00 mGy-cm. Automated exposure control and itera tive reconstruction technique were employed. COMPARISON: 01/12/2021; CTPA 02/14/2022. FINDINGS: CHEST: Lung parenchyma and airways: Mild dependent scar/atelectasis. Right lower lobe granuloma. Patent airw ays heart. Pleura: Unremarkable. Thoracic inlet, axillae and chest wall: No thyroid or soft tissue mass. Thoracic aorta: No significant dilation. No dissection. Mild arch calcification. Mediastinum: Calcified hilar and mediastinal nodes. Dilated central pulmonary arteries as can be seen with pulmonary nodule hypertension. Heart and pericardium: Mild cardiomegaly. Mitral annulus and aortic valve calcification. Coronary artery calcifications: Mild. Thoracic bones: No acute osseous finding. Pulmonary arteries: Study quality: Adequate. No pulmonary emboli detected. ABDOMEN/PELVIS: Liver: Enlarged. Pelvis calcifications. Biliary/Gallbladder: Gallbladder is absent. No bile duct dilation. Pancreas: No mass or duct dilation. Spleen: Multilobulated 4.0 cm splenic mass with calcifications, likely hemangioma. Adrenals:No mass. Kidneys: No suspicious mass, obstructing stone, or hydronephrosis. GI tract: No small or large bowel dilation. Appendix not confidently visualized. Mesentery/Peritoneum: No ascites, mass, or free air. Retroperitoneum: No mass. Pelvis: Moderately distended urinary bladder. Right anterolateral bladder diverticulum near the bladd er dome. Mild wall thickening. Gas in the bladder lumen. Uterine calcifications. Normal left ovary. R ight ovary not confidently visualized. Soft Tissues: Extensive ventral hernia repair. Abdominopelvic bones: No acute osseous finding. IMPRESSION: No CT evidence of acute pulmonary embolus. Hepatomegaly. Bladder wall thickening with gas in the bladder lumen. Possible cystitis. Correlate with urinalysis a nd any history of catheterization. Small bladder diverticulum. Reviewed, dictated and finalized at location K. IMPRESSION: No CT evidence of acute pulmonary embolus. Hepatomegaly. Bladder wall thickening with gas in the bladder lumen. Possible cystitis. Corre late with urinalysis and any history of catheterization. Small bladder divertic ulum.
--- NOTE | ~2023-09-20 | XR_ITS ---
EXAMINATION: XR chest 1V portable Exam Date/Time: 09/20/2023 16:10 CDT HISTORY: SOB and chest pain Comparison: 05/04/2022. RESULT: Lines, tubes, and devices: None. Lungs and pleura: Mild diffuse interstitial opacities. Right lower lung granuloma. Cardiomediastinal silhouette: Stable. Other: No acute osseous or upper abdominal finding. IMPRESSION: Mild interstitial edema. Reviewed, dictated and finalized at location K. IMPRESSION: Mild interstitial edema.
--- NOTE | ~2023-09-20 | XR_ITS ---
EXAMINATION: XR chest 1V portable DATE: 09/21/2023 06:35 INDICATION: Shortness of breath TECHNIQUE: frontal view of the chest was obtained. COMPARISON: Chest radiograph dated 09/20/2023 FINDINGS: Increasing diffuse interstitial pattern with new peripheral David B-lines consistent with mild pulmo nary edema. No focal airspace consolidation to elevate suspicion for pneumonia. Calcified nodule righ t lower lung consistent with old granulomatous disease. No pleural effusion or pneumothorax. Heart si ze is normal. Dense mitral annular calcification. Postoperative change of prior ventral hernia mesh r epair. IMPRESSION: 1. Pulmonary edema versus significantly less likely pneumonia Reviewed, dictated and finalized at location A.
--- NOTE | ~2023-09-20 | XR_ITS ---
XR foot RT min 3V 09/21/2023 12:12 Indication: Right foot pain and swelling Procedure: 4 views right foot Comparison: No prior studies for comparison. Findings: There is fusion of the right first proximal and distal phalanges with a lag screw. Osteopen ia. Polyarticular osteoarthritis. There is postoperative internal fixation of the mid and hindfoot wi th multiple screws and sideplate.. Degenerative calcaneal enthesophyte. There is a large amount of so ft tissue swelling medial to the first toe. No underlying fracture is identified. No foreign bodies. Impression: 1: Large amount of soft tissue swelling of the first toe without evidence for underlying fracture. Reviewed, dictated and finalized at location B. Impression: 1: Large amount of soft tissue swelling of the first toe without evidence for u nderlying fracture.
--- NOTE | 2023-09-20 15:14 | ECG_ITS ---
Test Date: 2023-09-20 15:22:30 Measurements Intervals [employer] Rate: 116 P: 26 NM: 166 QRS: -31 QRSD: 98 T: 50 QT: 378 QTc: 527 Interpretive Statements SINUS TACHYCARDIA LEFT AXIS DEVIATION CANNOT R/O SEPTAL INFARCT, AGE INDETERMINATE BASELINE ARTIFACT- I, III, AVR, AVL, V2 ABNORMAL ECG No previous ECG available for comparison Electronically Signed On 09-20-2023 15:26:10 CDT by Dewayne Jacobson D.O.
[2023-09-20 15:45] LABS: Appearance Urine Cloudy (Clear); Bacteria Urine None Seen /hpf; Bilirubin Urine Negative (Negative); Blood Urine 1+ (Negative); Color Urine Yellow (Yellow); Glucose Urine UA Negative (Negative); Ketones Urine Negative (Negative); Leukocyte Esterase Ur 1+ LEU/UL (Negative); Need Manual Microscopic Reviewed; Nitrate Urine Negative (Negative); Protein Urine 3+ mg/dL (Negative); RBC Urine 0-2 /hpf (0-2); Specific Grav Ur 1.013 (1.001-1.035); Squamous Epithelial Cell Urine None Seen /hpf (Few); Urobilinogen Urine 0.2 mg/dL (<2.0); WBC Urine >100 /hpf (0-3); pH Urine 6.5 (5.0-9.0)
[2023-09-20 15:49] LABS: Add Urine Microscopic? YES
[2023-09-20 16:08] LABS: Basophils Absolute Auto 0.1 K/mm3 (0.0-0.1); Basophils Percent Auto 0.5 % (0.2-1.2); Eosinophils Absolute Auto 0.1 K/mm3 (0-0.3); Eosinophils Percent Auto 0.5 % (0-4.4); Hematocrit 30.5 % (37.0-47.0); Hemoglobin 9.8 g/dL (12.0-15.0); Immature Granulocyte Absolute 0.05 K/mm3 (0.00-0.031); Immature Granulocyte Percent A 0.5 % (0-0.5); Immature Platelet Fraction Pct 9.5 % (0.9-11.2); Lymphocytes Absolute Auto 0.84 K/mm3 (0.9-3.2); Lymphocytes Percent Auto 8.1 % (18.3-44.2); Mean Corpuscular HGB Conc 32.1 g/dl (32-36); Mean Corpuscular Hemoglobin 29.2 pg (26-34); Mean Corpuscular Volume 90.8 fl (80-100); Mean Platelet Volume 13.5 fl (7.4-10.4); Monocytes Absolute Auto 0.7 K/mm3 (0.1-0.6); Monocytes Percent Auto 6.8 % (2.6-8.5); Neutrophils Absolute Auto 8.7 K/mm3 (1.3-6.7); Neutrophils Percent Auto 83.6 % (45.5-73.1); Platelet Count Result 125 k/mm3 (150-375); Red Blood Count 3.36 M/mm3 (4.2-5.4); Red Cell Distribution Width 15.9 % (11.5-14.5); White Blood Count 10.4 K/mm3 (4.5-10.0)
[2023-09-20 16:13] LABS: Alanine Aminotransferase 24 U/L (6-35); Albumin Level 3.9 g/dL (3.5-5.1); Alkaline Phosphatase 108 U/L (38-126); Anion Gap 11 mmol/L (4-12); Aspartate Amino Transferase 37 U/L (14-36); Bilirubin,Total 0.7 mg/dL (0.2-1.3); Blood Urea Nitrogen 26 mg/dL (7-17); Calcium 8.7 mg/dL (8.4-10.2); Carbon Dioxide 25 mmol/L (22-30); Chloride 100 mmol/L (98-107); Estimated CRCL calculation 37 ml/min; Estimated Glomerular Filt Rate 37; Glucose 147 mg/dL (65-110); Potassium 3.6 mmol/L (3.4-5.0); Sodium 136 mmol/L (137-145)
[2023-09-20 16:14] LABS: Lactic Acid Reflex 1.4 mmol/L (0.7-2.0)
[2023-09-20 16:51] LABS: Influenza A QL RT-PCR Negative (Negative); Influenza B QL RT-PCR Negative (Negative); RSV RNA, RT-PCR Negative (Negative); SARS-CoV-2 RNA PCR Negative (Negative)
--- NOTE | 2023-09-20 17:30 | ED.FEVER ---
HPI - Fever General Chief Complaint: Fever <TIMOTEO Calvillo Last Filed: 09/20/23 19:38> Stated Complaint: fever <TIMOTEO Calvillo Last Filed: 09/20/23 19:38> Time Seen by Provider: 09/20/23 16:55 <TIMOTEO Calvillo Last Filed: 09/20/23 19:38> Source: patient <TIMOTEO Calvillo Last Filed: 09/20/23 19:38> Mode of arrival: EMS <TIMOTEO Calvillo Last Filed: 09/20/23 19:38> Limitations: no limitations <TIMOTEO Calvillo Last Filed: 09/20/23 19:38> History of Present Illness HPI Narrative: Patient is a 73 y/o female who presents to the ED via EMS with report of fevers/chills. Patient reports having dysuria, urinary frequency over the past 1 week. Hx of UTIs. She began feeling ill yesterday with subjective fevers, chills, myalgias. She notes she felt very weak overnight and fell trying to go to the bathroom. She did not hit her head or lose consciousness. Denies syncope. She had difficulty getting off the ground. She then began having N/V today, feeling short of breath. EMS was contacted. Patient was noted to be febrile and hypoxic upon EMS arrival, placed on 2 L nasal cannula. Patient denies previous oxygen requirement. She denies cough, cold symptoms, abdominal pain, diarrhea, constipation. <Ana Laura Momin PA-C - Last Filed: 09/20/23 19:38> Related Data Home Medications: Home Medications Medication Instructions Recorded Confirmed cholecalciferol (vitamin D3) 125 5,000 unit PO DAILY 01/02/19 09/20/23 mcg (5,000 unit) tablet multivitamin 1 tablet PO DAILY 01/02/19 09/20/23 hydroxychloroquine 200 mg tablet 200 mg PO BID 05/06/20 09/20/23 (Plaquenil) atorvastatin 40 mg tablet 40 mg PO HS 06/18/20 09/20/23 insulin glargine U-300 conc 300 60 unit subcut HS 11/09/20 09/20/23 unit/mL (3 mL) subcutaneous pen (Toujeo Max U-300 SoloStar) rivaroxaban 2.5 mg tablet (Xarelto) 2.5 mg PO BID 09/08/21 09/20/23 calcium carbonate 1,200 mg PO DAILY 12/01/21 09/20/23 ferrous sulfate 325 mg (65 mg 650 mg PO DAILY 12/01/21 09/20/23 iron) tablet glimepiride 2 mg tablet 4 mg PO DAILY 12/01/21 09/20/23 omega-3 fatty acids 500 mg capsule 500 mg PO BID 03/10/22 09/20/23 leflunomide 20 mg tablet 20 mg PO DAILY 01/27/23 09/20/23 duloxetine 20 mg capsule,delayed 20 mg PO DAILY 09/20/23 09/20/23 release furosemide 20 mg tablet 20 mg PO DAILY 09/20/23 09/20/23 <TIMOTEO Calvillo Last Filed: 09/20/23 19:38> Allergies/Adverse Reactions: Allergies Allergy/AdvReac Type Severity Reaction Status Date / Time daptomycin Allergy Intermediate Hives Verified 09/20/23 15:30 valsartan Allergy Intermediate Hives Verified 09/20/23 15:30 vancomycin Allergy Intermediate Hives Verified 09/20/23 15:30 povidone-iodine Allergy Mild Hives Verified 09/20/23 15:30 [From Betadine] lisinopril Allergy Cough Verified 09/20/23 15:30 sulfadimethoxine Allergy Vomiting Verified 09/20/23 15:30 trimethoprim Allergy Itching Verified 09/20/23 15:30 <TIMOTEO Calvillo Last Filed: 09/20/23 19:38> Review of Systems Review of Systems: CONSTITUTIONAL: See HPI. ENT: Denies rhinorrhea, congestion, sore throat. CARDIOVASCULAR: Denies chest pain. RESPIRATORY: See HPI. GASTROINTESTINAL: See HPI. GENITOURINARY: See HPI. NEUROLOGIC: Reports generalized weakness. Denies headache, dizziness, numbness, or focal weakness. <TIMOTEO Calvillo Last Filed: 09/20/23 19:38> All systems reviewed & are unremarkable except as noted in HPI and below <Ana Laura Momin PA-C - Last Filed: 09/20/23 19:38> [facility] Past Medical History Medical History: Medical History Abdominal pain Acute pain of both hips Acute pain of both knees Amputation toe Anemia Arthritis of knee, degenerative BMI greater than 40 Carpal tunnel syndrome, bilateral
[2023-09-20] MEDS: ACETAMINOPHEN 500 MG TABLET 1000 MG PO (17:47)
[2023-09-20 17:48] LABS: INR 1.1; Partial Thromboplastin Time 35.2 Seconds (22.3-36.8); Prothrombin Time 14.2 Seconds (11.1-14.7)
[2023-09-20] MEDS: ONDANSETRON INJ 4 MG/2 ML VIAL IV PUSH (17:48)
[2023-09-20] MEDS: SODIUM CHLORIDE 0.9% IV 1,000 ML 999 ML IV CONT ×2 (17:48→18:27)
[2023-09-20 17:59] LABS: Magnesium 1.2 mg/dL (1.6-2.3)
[2023-09-20 18:11] LABS: NT Pro B Type Natriuretic Pept 1810 pg/mL (19.9-100); Troponin I 0.034 ng/mL (0.000-0.034)
[2023-09-20] MEDS: MAGNESIUM SULF 2 GM/WATER 50ML 2 GM/50 ML BAG IVPB ×2 (18:27→22:17)
--- NOTE | 2023-09-20 18:30 | PC.NURSE ---
Patient more awake at this time. patient states she feels better.
[2023-09-20 19:34] LABS: Troponin I 0.064 ng/mL (0.000-0.034)
--- NOTE | 2023-09-20 20:13 | PM.IMHP ---
H&P: HPI History of Present Illness Date/Time: 09/20/23 20:13 Chief Complaint: Myalgias, chills, burning on urination Narrative: This is a very pleasant 73-year-old female who is accompanied by her who she lives with. She has a PMH of morbid obesity, history of NSTEMI (2004, no cardiac cath done), insulin-dependent diabetes mellitus with history of amputation of left great toe, chronic normocytic anemia, history of chronic diarrhea now resolved, prior smoker, asthma, LEXII compliant with CPAP, essential hypertension, CKD, reflux disease, hypothyroidism, peripheral artery disease, rheumatoid arthritis, chronic thrombocytopenia, history of UTI with Klebsiella pneumoniae pansensitive. Patient presents with a few days of myalgias, feeling very weak, subjective fevers. Day prior to admission felt so weak she fell all try going to the bathroom. He did not hit her head or lose consciousness or have syncope or seizure. She does not feel any subsequent pain. On the day of admission the patient began to have nausea and 1 episode of emesis. Also reports shortness of breath. EMS was contacted and the patient was brought to [place] [facility]. She was found to be hypoxic and placed on 2 L nasal cannula. The patient denies previous oxygen requirement. She denies any upper respiratory symptoms. She denies chest pain. Of note, she reports she has had difficulties climbing up and down steps due to shortness of breath. He denies orthopnea. She reports a mild swelling of her right ankle, she does not know she has gained or lost weight. She has never been diagnosed with heart failure. She is a previous smoker quit many years ago. [place] evaluation demonstrated a hypoxic patient. Quad viral screen negative. Wbc's 10.4. Hemoglobin 9.8. Platelet 125. INR 1.1. Sodium 136. BUN 26. Creatinine 1.4. Magnesium 1.2. Glucose 147. Lactic acid 1.4. Troponin 0.034 and then 0.064. ProBNP 1800. Urinalysis cloudy in appearance with 3+ protein, 1+ blood, 1+ leukocyte esterase, greater than 100 wbc's. EKG without acute ischemia, sinus tachycardia. QTC 527. She received ceftriaxone 1 g IV x1, 2 L normal saline, Tylenol 1000 mg x1, Zofran 4 mg IV push x1, magnesium 2 g rider. Review of Systems Review of Systems: All systems reviewed & are unremarkable except as noted in HPI and below (Subjective) [facility] Past Medical History Medical History Abdominal pain Acute pain of both hips Acute pain of both knees Amputation toe Anemia Arthritis of knee, degenerative BMI greater than 40 Carpal tunnel syndrome, bilateral Cellulitis of right foot Charcot ankle Chicken pox Chronic abdominal pain Chronic diarrhea Chronic pain Colon cancer screening 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 2 diabetes mellitus Diarrhea Ear ache Essential hypertension Flat foot [pes planus] (acquired), left foot Gastroparesis Heartburn Hernia History of GA (myocardial infarction) Hives Hypertension Hypothyroidism Left knee DJD Left shoulder pain Left wrist pain nursing home (current) use of insulin Microscopic colitis Non-pressure chronic ulcer of other part of unspecified foot limited to breakdown of skin Non-pressure chronic ulcer of right heel and midfoot with bone involvement without evidence of necrosis Numbness in both hands Obesity Other chronic pain Pain in left hand Peripheral arterial disease Pes planus of both feet Pneumonia Polyneuropathy Polyneuropathy 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 Posterior tibial tendon dysfunction, left Pre-op evaluation Rheumatoid arthritis Rheumatoid arthritis of unspecified site with involvement of other organs and systems Rib pain on right side Right knee DJD Right wrist pain Rotator cuff tendonitis Sore throat Thrombocytopenia Type 2 diabetes mellitus Type 2 diabetes mellitus with complication UTI (urinary tract infection) Surgical History Surgical History (Reviewed
[2023-09-20 20:36] LABS: Glucose Point of Care 102 mg/dl (65-105)
--- NOTE | 2023-09-20 20:56 | ADMGEN ---
This patient, Aleyda Dobbs, was admitted to IMU Room 206-02. Patient/family oriented to hospital policies and general routines including ID bracelet, bed and alarms, visiting hours, pain management, procedures, bathroom and other care routines, personal items, smoking policy, room service/diet, and visiting hours. Information on how to activate the Rapid Response Team has been discussed. Patient/Family are encouraged to report perceived risks to care and to ask questions if they do not understand what they are told or what they should do.
[2023-09-20 21:11] LABS: Glucose Point of Care 98 mg/dl (65-105)
[2023-09-20 21:49] LABS: Troponin I 0.064 ng/mL (0.000-0.034)
[2023-09-21] VITALS (20 sets, daily range): BP systolic 98–145; BP diastolic 38–58; PULSE 76–107; RESP 17–22; TEMP 36.2–37.7; O2SAT 93–100
--- NOTE | 2023-09-21 | ECHO_ITS ---
Patient Info Name: Aleyda Dobbs Age: 73 years : 1950 Gender: Female Ht: 61 in Wt: 229 lbs BSA: 2.18 m2 HR: 102 bpm BP: 122 / 42 mmHg Heart Rhythm: Sinus Rhythm Technical Quality: Fair Exam Date: 09/21/2023 8:59 AM Exam Location: Echo Lab Patient Status: Inpatient Admit Date: 09/20/2023 Staff Ordering Physician: Char Muñiz MD Pivot End Polisher: Clifton Burden RDCS Attending Provider: Char Muñiz MD Exam Type: CA echo dop color flow w con Study Info Indications - symptoms of heart failure Complete two-dimensional, color flow and Doppler transthoracic echocardiogram is performed with contrast to opacify the left ventricle and to improve the deliniation of the left ventricle endocardial borders. Contrast/Agitated Saline Contrast/Ag. Saline: Definity Amount: 5.00 ml Existing IV Access: Yes Summary 1. Technically difficult study with limited views. 2. Left ventricular chamber dimension is normal. 3. Left ventricular systolic function is normal, estimated at 60-65%. 4. There is mildly increased left ventricular wall thickness. 5. The left ventricular diastolic function is grade I diastolic dysfunction. 6. Right ventricular systolic function is normal. 7. Left atrial chamber dimension is severely enlarged. 8. The mitral valve has thickened leaflets. 9. The mitral valve annulus is severely calcified. 10. Mean mitral valve gradient of 14mmHg, which is concerning for severe mitral valve stenosis. 11. There is mild mitral valve regurgitation. 12. There is mild tricuspid valve regurgitation. 13. Estimated pulmonary arterial systolic pressure is 42 mmHg. Left Ventricle Left ventricular chamber dimension is normal. Left ventricular systolic function is normal, estimated at 60-65%. There is mildly increased left ventricular wall thickness. The left ventricular diastolic function is grade I diastolic dysfunction. Right Ventricle Right ventricular chamber dimension is normal. Right ventricular systolic function is normal. Left Atria Left atrial chamber dimension is severely enlarged. Right Atria Right atrial chamber dimension is normal. Atrial Septum Intact interatrial septum visualized by color flow imaging. Aortic Valve The aortic valve is not well visualized. There is no aortic valve regurgitation. Pulmonic Valve The pulmonic valve is not well visualized. Mitral Valve The mitral valve has thickened leaflets. Mean mitral valve gradient of 14mmHg, which is concerning for severe mitral valve stenosis. There is mild mitral valve regurgitation. The mitral valve annulus is severely calcified. Tricuspid Valve There is mild tricuspid valve regurgitation. Estimated pulmonary arterial systolic pressure is 42 mmHg. Pericardium/Pleural There is no pericardial effusion. Inferior Vena Cava Dilated inferior vena cava with <50% collapse upon inspiration consistent with elevated right atrial pressure, 15 mmHg. Aorta The aortic root size at the sinus of Valsalva is normal. Left Ventricular Outflow Tract Name Value Normal LVOT 2D LVOT Diameter 1.90 cm LVOT Doppler LVOT Peak Gradient 8 mmHg LVOT Mean Gradient
[2023-09-21 05:09] LABS: Basophils Percent Auto 0.3 % (0.2-1.2); Eosinophils Absolute Auto 0.2 K/mm3 (0-0.3); Hemoglobin 9.1 g/dL (12.0-15.0); Immature Granulocyte Absolute 0.04 K/mm3 (0.00-0.031); Immature Granulocyte Percent A 0.4 % (0-0.5); Immature Platelet Fraction Pct 12.8 % (0.9-11.2); Lymphocytes Absolute Auto 0.88 K/mm3 (0.9-3.2); Lymphocytes Percent Auto 9.2 % (18.3-44.2); Mean Corpuscular HGB Conc 31.4 g/dl (32-36); Mean Corpuscular Hemoglobin 29.2 pg (26-34); Mean Corpuscular Volume 92.9 fl (80-100); Mean Platelet Volume 13.6 fl (7.4-10.4); Monocytes Absolute Auto 0.6 K/mm3 (0.1-0.6); Monocytes Percent Auto 6.6 % (2.6-8.5); Neutrophils Absolute Auto 7.8 K/mm3 (1.3-6.7); Neutrophils Percent Auto 81.5 % (45.5-73.1); Nucleated Red Blood Cells Perc 0.2 % (0.0-0.2); Platelet Count Result 112 k/mm3 (150-375); Red Blood Count 3.12 M/mm3 (4.2-5.4); Red Cell Distribution Width 16.4 % (11.5-14.5); White Blood Count 9.5 K/mm3 (4.5-10.0)
[2023-09-21 05:27] LABS: Glucose Point of Care 74 mg/dl (65-105)
--- NOTE | 2023-09-21 05:30 | PM.IMPN ---
Progress Note: A&P Assessment and Plan (1) Sepsis: Qualifiers: Sepsis acute organ dysfunction status: unspecified Sepsis type: sepsis due to unspecified organism Qualified Code(s): A41.9 - Sepsis, unspecified organism Code(s): A41.9 - Sepsis, unspecified organism Status: Acute (2) UTI (urinary tract infection): Qualifiers: Hematuria presence: without hematuria Urinary tract infection type: acute cystitis Qualified Code(s): N30.00 - Acute cystitis without hematuria Code(s): N39.0 - Urinary tract infection, site not specified Status: Acute (3) Hypomagnesemia: Code(s): E83.42 - Hypomagnesemia Status: Acute (4) Acute hypoxic respiratory failure: Code(s): J96.01 - Acute respiratory failure with hypoxia Status: Acute (5) Elevated troponin: Code(s): R79.89 - Other specified abnormal findings of blood chemistry Status: Acute (6) BMI greater than 40: Status: Acute Plan This is a very pleasant 73-year-old female who is accompanied by her who she lives with. She has a PMH of morbid obesity, history of NSTEMI (2004, no cardiac cath done), insulin-dependent diabetes mellitus with history of amputation of left great toe, chronic normocytic anemia, history of chronic diarrhea now resolved, prior smoker, asthma, LEXII compliant with CPAP, essential hypertension, CKD, reflux disease, hypothyroidism, peripheral artery disease, rheumatoid arthritis, chronic thrombocytopenia, history of UTI with Klebsiella pneumoniae pansensitive. Patient presents with a few days of myalgias, feeling very weak, subjective fevers. Day prior to admission felt so weak she fell all try going to the bathroom. He did not hit her head or lose consciousness or have syncope or seizure. She does not feel any subsequent pain. On the day of admission the patient began to have nausea and 1 episode of emesis. Also reports shortness of breath. EMS was contacted and the patient was brought to [place] [facility]. She was found to be hypoxic and placed on 2 L nasal cannula. The patient denies previous oxygen requirement. She denies any upper respiratory symptoms. She denies chest pain. Of note, she reports she has had difficulties climbing up and down steps due to shortness of breath. He denies orthopnea. She reports a mild swelling of her right ankle, she does not know she has gained or lost weight. She has never been diagnosed with heart failure. She is a previous smoker quit many years ago. [place] [facility] evaluation demonstrated a hypoxic patient. Quad viral screen negative. Wbc's 10.4. Hemoglobin 9.8. Platelet 125. INR 1.1. Sodium 136. BUN 26. Creatinine 1.4. Magnesium 1.2. Glucose 147. Lactic acid 1.4. Troponin 0.034 and then 0.064. ProBNP 1800. Urinalysis cloudy in appearance with 3+ protein, 1+ blood, 1+ leukocyte esterase, greater than 100 wbc's. suggestive of UTI. CXR with mild internstiital edema. CHEST CTA:with no PE, hepatomegaly, bladder wall thickening with gas in the bladder lumen. possible cysttis, small bladder diverticulum. EKG without acute ischemia, sinus tachycardia. QTC 527. She received ceftriaxone 1 g IV x1, 2 L normal saline, Tylenol 1000 mg x1, Zofran 4 mg IV push x1, magnesium 2 g rider. ----- # sepsis with leukocytosis uti and acute hypoxic respiratory failure. Pending blood cultures. Pending urine culture. Previous culture grew Klebsiella pneumonia pansensitive. Continue ceftriaxone 1 g IV q.day. # Acute hypoxic respiratory failure requiring 2 L nasal cannula. She has had dyspnea on exertion for some time. Her BNP is elevated and she has crackles diffusely. Check echocardiogram which is pending. quad viral screen negative. hx of asthma. restart duoneb. cxr with mild interstitial edema. # troponin mild elevation: Elevated from 0.034-0.064-0.064. No acute ischemia identified an EKG. Continue to trend troponin and EKG. Patient has no chest pain. He
[2023-09-21 05:34] LABS: Anion Gap 7 mmol/L (4-12); Blood Urea Nitrogen 26 mg/dL (7-17); Calcium 8.3 mg/dL (8.4-10.2); Carbon Dioxide 28 mmol/L (22-30); Chloride 103 mmol/L (98-107); Estimated CRCL calculation 37 ml/min; Estimated Glomerular Filt Rate 37; Glucose 77 mg/dL (65-110); Magnesium 2.2 mg/dL (1.6-2.3); Potassium 4.1 mmol/L (3.4-5.0); Sodium 138 mmol/L (137-145)
[2023-09-21] MEDS: IPRATROPIUM 0.5 MG/ALBUTEROL SULFATE 2.5 MG AMPUL.NEB 3 ML INHALATION (05:38)
[2023-09-21] MEDS: LEVOTHYROXINE SODIUM 100 MCG TABLET PO (06:29)
[2023-09-21] MEDS: CALCIUM CARBONATE (OSCAL) 500 MG TABLET 1000 MG PO (08:23)
[2023-09-21] MEDS: METOPROLOL SUCCINATE EXT REL 25 MG TABCR PO (08:23)
[2023-09-21] MEDS: GABAPENTIN 300 MG CAPSULE PO ×2 (08:23→17:21)
[2023-09-21] MEDS: MULTIVITAMINS THERAPEUTIC TAB (*BKC) 1 TABLET PO (08:23)
[2023-09-21] MEDS: HYDROXYCHLOROQUINE SULFATE 200 MG TABLET PO ×2 (08:23→17:21)
[2023-09-21] MEDS: RIVAROXABAN 2.5 MG TABLET PO ×2 (08:24→20:36)
[2023-09-21] MEDS: OMEGA 3 POLYUNSAT FATTY ACIDS 1 GM CAP PO (08:24)
[2023-09-21] MEDS: LEFLUNOMIDE 20 MG TABLET PO (08:24)
[2023-09-21] MEDS: CHOLECALCIFEROL 5,000 UNITS TABLET 5000 UNITS PO (08:24)
[2023-09-21] MEDS: FERROUS SULFATE 325 MG TABLET DR 650 MG BY MOUTH (08:24)
[2023-09-21] MEDS: DULoxetine HCL 20 MG CAPSULE.DR PO (08:24)
[2023-09-21] MEDS: FUROSEMIDE INJ 40 MG/4 ML VIAL IV PUSH (10:10)
--- NOTE | 2023-09-21 10:19 | PM.IMPN ---
Progress Note: A&P Assessment and Plan (1) Sepsis: Qualifiers: Sepsis acute organ dysfunction status: unspecified Sepsis type: sepsis due to unspecified organism Qualified Code(s): A41.9 - Sepsis, unspecified organism Code(s): A41.9 - Sepsis, unspecified organism Status: Acute (2) UTI (urinary tract infection): Qualifiers: Hematuria presence: without hematuria Urinary tract infection type: acute cystitis Qualified Code(s): N30.00 - Acute cystitis without hematuria Code(s): N39.0 - Urinary tract infection, site not specified Status: Acute (3) Hypomagnesemia: Code(s): E83.42 - Hypomagnesemia Status: Acute (4) Acute hypoxic respiratory failure: Code(s): J96.01 - Acute respiratory failure with hypoxia Status: Acute (5) Elevated troponin: Code(s): R79.89 - Other specified abnormal findings of blood chemistry Status: Acute (6) BMI greater than 40: Status: Acute Plan This is a very pleasant 73-year-old female who is accompanied by her who she lives with. She has a PMH of morbid obesity, history of NSTEMI (2004, no cardiac cath done), insulin-dependent diabetes mellitus with history of amputation of left great toe, chronic normocytic anemia, history of chronic diarrhea now resolved, prior smoker, asthma, LEXII compliant with CPAP, essential hypertension, CKD, reflux disease, hypothyroidism, peripheral artery disease, rheumatoid arthritis, chronic thrombocytopenia, history of UTI with Klebsiella pneumoniae pansensitive. Patient presents with a few days of myalgias, feeling very weak, subjective fevers. Day prior to admission felt so weak she fell all try going to the bathroom. He did not hit her head or lose consciousness or have syncope or seizure. She does not feel any subsequent pain. On the day of admission the patient began to have nausea and 1 episode of emesis. Also reports shortness of breath. EMS was contacted and the patient was brought to [place] [facility]. She was found to be hypoxic and placed on 2 L nasal cannula. The patient denies previous oxygen requirement. She denies any upper respiratory symptoms. She denies chest pain. Of note, she reports she has had difficulties climbing up and down steps due to shortness of breath. He denies orthopnea. She reports a mild swelling of her right ankle, she does not know she has gained or lost weight. She has never been diagnosed with heart failure. She is a previous smoker quit many years ago. [place] [facility] evaluation demonstrated a hypoxic patient. Quad viral screen negative. Wbc's 10.4. Hemoglobin 9.8. Platelet 125. INR 1.1. Sodium 136. BUN 26. Creatinine 1.4. Magnesium 1.2. Glucose 147. Lactic acid 1.4. Troponin 0.034 and then 0.064. ProBNP 1800. Urinalysis cloudy in appearance with 3+ protein, 1+ blood, 1+ leukocyte esterase, greater than 100 wbc's. EKG without acute ischemia, sinus tachycardia. QTC 527. She received ceftriaxone 1 g IV x1, 2 L normal saline, Tylenol 1000 mg x1, Zofran 4 mg IV push x1, magnesium 2 g rider. ----- # sepsis with UTI # UTI: ceftriaxone # right toe swelling and bruise: check xr # hypoxic resp failure: wheezy this am. restart duoneb. recheck cxr. redose lasix iv. quad viral screen negative. # congestive heart failure: echo. bnp elevated at 1810. # elevated troponin: A troponin was checked in the ER. Twice. Elevated from 0.034-0.064-0.064. No acute ischemia identified an EKG. Continue to trend troponin and EKG. Patient has no chest pain. Her shortness of breath improved after placement of 2 L nasal cannula. LEXII: on cpap at night Magnesium 1.2. Place with 4 g rider QTC above 500. Zofran received in the ER. Discontinue Zofran. F/E/N: saline lock IV, replace lytes as needed, cardiac diabetic diet GI prophylaxis: Not currently indicated DVT prophylaxis: SCDs for now. Lines: Peripheral IV Code Status: Patient wishes to be DNR. Code s
[2023-09-21] MEDS: PERFLUTREN LIPID MICROSPHERES 1.5 ML VIAL DILUTED TO 10 ML TOTAL VOLUME IV PUSH (10:33)
--- NOTE | 2023-09-21 10:34 | IVDEFINITY ---
Prior to administration of IV Definity the patient was educated on the risks and benefits of the imaging enhancing agent including potential adverse side effects. The patient verbalized understanding. Allergies were verified. No exclusion criteria were identified and at least one of the following inclusion criteria were met: 1) physician request, 2) patient technically difficult to image (per the [place] [employer] guidelines of two or more segments not discernable within the apical view), or 3) questionable left ventricular function. ?
[2023-09-21 11:40] LABS: Glucose Point of Care 124 mg/dl (65-105)
[2023-09-21 16:05] LABS: Glucose Point of Care 181 mg/dl (65-105)
--- NOTE | 2023-09-21 18:45 | PC.NURSE ---
Patient oriented to new room 244 @ 1830. Patient shown call light and instructed to call for help/ambulation
[2023-09-21] MEDS: ATORVASTATIN 40 MG TABLET PO (20:36)
[2023-09-21 20:53] LABS: Glucose Point of Care 194 mg/dl (65-105)
[2023-09-22] VITALS (11 sets, daily range): BP systolic 113–142; BP diastolic 43–50; PULSE 80–99; RESP 18–24; TEMP 36.3–36.7; O2SAT 94–100
--- NOTE | 2023-09-22 03:44 | PC.NURSE ---
6320 patient c/o feeling shaky, states her blood sugar is probably low. obtained fingerstick, 59, patient requests onaveed and bobo lewis and given. awake and alert. will recheck glucose in 30 minutes.
[2023-09-22 03:50] LABS: Glucose Point of Care 59 mg/dl (65-105)
--- NOTE | 2023-09-22 04:11 | PC.NURSE ---
fingerstick glucose now 97, patient states she feels better.
[2023-09-22 04:14] LABS: Glucose Point of Care 97 mg/dl (65-105)
[2023-09-22] MEDS: LEVOTHYROXINE SODIUM 100 MCG TABLET PO (05:50)
[2023-09-22 08:03] LABS: Glucose Point of Care 87 mg/dl (65-105)
[2023-09-22] MEDS: HYDROXYCHLOROQUINE SULFATE 200 MG TABLET PO ×2 (08:35→17:36)
[2023-09-22] MEDS: CALCIUM CARBONATE (OSCAL) 500 MG TABLET 1000 MG PO (08:35)
[2023-09-22] MEDS: DULoxetine HCL 20 MG CAPSULE.DR PO (08:36)
[2023-09-22] MEDS: CHOLECALCIFEROL 5,000 UNITS TABLET 5000 UNITS PO (08:36)
[2023-09-22] MEDS: FERROUS SULFATE 325 MG TABLET DR 650 MG BY MOUTH (08:36)
[2023-09-22] MEDS: FUROSEMIDE 20 MG TABLET PO (08:37)
[2023-09-22] MEDS: METOPROLOL SUCCINATE EXT REL 25 MG TABCR PO (08:38)
[2023-09-22] MEDS: GABAPENTIN 300 MG CAPSULE PO ×2 (08:38→17:36)
[2023-09-22] MEDS: LEFLUNOMIDE 20 MG TABLET PO (08:38)
[2023-09-22] MEDS: OMEGA 3 POLYUNSAT FATTY ACIDS 1 GM CAP PO (08:38)
[2023-09-22] MEDS: MULTIVITAMINS THERAPEUTIC TAB (*BKC) 1 TABLET PO (08:39)
[2023-09-22] MEDS: RIVAROXABAN 2.5 MG TABLET PO ×2 (08:39→20:21)
--- NOTE | 2023-09-22 11:33 | PM.IMPN ---
Progress Note: A&P Assessment and Plan (1) Sepsis: Qualifiers: Sepsis acute organ dysfunction status: unspecified Sepsis type: sepsis due to unspecified organism Qualified Code(s): A41.9 - Sepsis, unspecified organism Code(s): A41.9 - Sepsis, unspecified organism Status: Acute (2) UTI (urinary tract infection): Qualifiers: Hematuria presence: without hematuria Urinary tract infection type: acute cystitis Qualified Code(s): N30.00 - Acute cystitis without hematuria Code(s): N39.0 - Urinary tract infection, site not specified Status: Acute (3) Hypomagnesemia: Code(s): E83.42 - Hypomagnesemia Status: Acute (4) Acute hypoxic respiratory failure: Code(s): J96.01 - Acute respiratory failure with hypoxia Status: Acute (5) Elevated troponin: Code(s): R79.89 - Other specified abnormal findings of blood chemistry Status: Acute (6) BMI greater than 40: Status: Acute Plan This is a very pleasant 73-year-old female who is accompanied by her who she lives with. She has a PMH of morbid obesity, history of NSTEMI (2004, no cardiac cath done), insulin-dependent diabetes mellitus with history of amputation of left great toe, chronic normocytic anemia, history of chronic diarrhea now resolved, prior smoker, asthma, LEXII compliant with CPAP, essential hypertension, CKD, reflux disease, hypothyroidism, peripheral artery disease, rheumatoid arthritis, chronic thrombocytopenia, history of UTI with Klebsiella pneumoniae pansensitive. Patient presents with a few days of myalgias, feeling very weak, subjective fevers. Day prior to admission felt so weak she fell all try going to the bathroom. He did not hit her head or lose consciousness or have syncope or seizure. She does not feel any subsequent pain. On the day of admission the patient began to have nausea and 1 episode of emesis. Also reports shortness of breath. EMS was contacted and the patient was brought to [place] [facility]. She was found to be hypoxic and placed on 2 L nasal cannula. The patient denies previous oxygen requirement. She denies any upper respiratory symptoms. She denies chest pain. Of note, she reports she has had difficulties climbing up and down steps due to shortness of breath. He denies orthopnea. She reports a mild swelling of her right ankle, she does not know she has gained or lost weight. She has never been diagnosed with heart failure. She is a previous smoker quit many years ago. [place] [facility] evaluation demonstrated a hypoxic patient. Quad viral screen negative. Wbc's 10.4. Hemoglobin 9.8. Platelet 125. INR 1.1. Sodium 136. BUN 26. Creatinine 1.4. Magnesium 1.2. Glucose 147. Lactic acid 1.4. Troponin 0.034 and then 0.064. ProBNP 1800. Urinalysis cloudy in appearance with 3+ protein, 1+ blood, 1+ leukocyte esterase, greater than 100 wbc's. EKG without acute ischemia, sinus tachycardia. QTC 527. She received ceftriaxone 1 g IV x1, 2 L normal saline, Tylenol 1000 mg x1, Zofran 4 mg IV push x1, magnesium 2 g rider. # sepsis with UTI possible cellulitis right great toe # UTI: ceftriaxone urine culture with Gram-negative bacilli # right toe swelling and bruise: X-ray with no fracture. Blister has opened up wound care consult. Redness around the bruise present representing cellulitis. Will add doxycycline for MRSA coverage # hypoxic resp failure: Restart duoneb. recheck cxr. redose lasix iv. quad viral screen negative. Restarted late # congestive heart failure: echo. bnp elevated at 1810. With severe mitral stenosis needs follow-up as an outpatient basis # severe mitral stenosis # elevated troponin: A troponin was checked in the ER. Twice. Elevated from 0.034-0.064-0.064. No acute ischemia identified an EKG. Continue to trend troponin and EKG. Patient has no chest pain. Her shortness of breath improved after placement of 2 L nasal cannula. Stag LEXII: on cpap at [facility]
[2023-09-22 11:59] LABS: Glucose Point of Care 129 mg/dl (65-105)
[2023-09-22 16:57] LABS: Glucose Point of Care 182 mg/dl (65-105)
[2023-09-22] MEDS: DOXYCYCLINE HYCLATE 100 MG TABLET PO (18:28)
[2023-09-22] MEDS: ATORVASTATIN 40 MG TABLET PO (20:21)
[2023-09-22] MEDS: INSULIN ASPART (*BKC) 100 UNITS/ML SUB-Q (20:23)
[2023-09-22 20:48] LABS: Glucose Point of Care 275 mg/dl (65-105)
[2023-09-23] VITALS (11 sets, daily range): BP systolic 130–152; BP diastolic 50–65; PULSE 82–112; RESP 17–20; TEMP 36.4–36.9; O2SAT 94–98
[2023-09-23 05:55] LABS: Basophils Percent Auto 0.6 % (0.2-1.2); Eosinophils Absolute Auto 0.3 K/mm3 (0-0.3); Eosinophils Percent Auto 3.8 % (0-4.4); Hematocrit 26.8 % (37.0-47.0); Hemoglobin 8.4 g/dL (12.0-15.0); Immature Granulocyte Absolute 0.05 K/mm3 (0.00-0.031); Immature Granulocyte Percent A 0.7 % (0-0.5); Lymphocytes Absolute Auto 1.04 K/mm3 (0.9-3.2); Lymphocytes Percent Auto 15.1 % (18.3-44.2); Mean Corpuscular HGB Conc 31.3 g/dl (32-36); Mean Corpuscular Hemoglobin 29.4 pg (26-34); Mean Corpuscular Volume 93.7 fl (80-100); Monocytes Absolute Auto 0.6 K/mm3 (0.1-0.6); Monocytes Percent Auto 8.2 % (2.6-8.5); Neutrophils Percent Auto 71.6 % (45.5-73.1); Platelet Count Result 145 k/mm3 (150-375); Red Blood Count 2.86 M/mm3 (4.2-5.4); Red Cell Distribution Width 15.6 % (11.5-14.5); White Blood Count 6.9 K/mm3 (4.5-10.0)
[2023-09-23 06:12] LABS: Alanine Aminotransferase 29 U/L (6-35); Albumin Level 3.5 g/dL (3.5-5.1); Alkaline Phosphatase 122 U/L (38-126); Anion Gap 10 mmol/L (4-12); Aspartate Amino Transferase 38 U/L (14-36); Bilirubin,Total 0.3 mg/dL (0.2-1.3); Blood Urea Nitrogen 31 mg/dL (7-17); Calcium 8.6 mg/dL (8.4-10.2); Carbon Dioxide 22 mmol/L (22-30); Chloride 103 mmol/L (98-107); Estimated CRCL calculation 29 ml/min; Estimated Glomerular Filt Rate 28; Glucose 204 mg/dL (65-110); Potassium 3.7 mmol/L (3.4-5.0); Sodium 135 mmol/L (137-145)
[2023-09-23] MEDS: LEVOTHYROXINE SODIUM 100 MCG TABLET PO (06:58)
[2023-09-23] MEDS: DOXYCYCLINE HYCLATE 100 MG TABLET PO ×2 (06:58→18:39)
[2023-09-23 08:10] LABS: Glucose Point of Care 193 mg/dl (65-105)
[2023-09-23] MEDS: DULoxetine HCL 20 MG CAPSULE.DR PO (08:32)
[2023-09-23] MEDS: CHOLECALCIFEROL 5,000 UNITS TABLET 5000 UNITS PO (08:32)
[2023-09-23] MEDS: HYDROXYCHLOROQUINE SULFATE 200 MG TABLET PO ×2 (08:32→16:52)
[2023-09-23] MEDS: FERROUS SULFATE 325 MG TABLET DR 650 MG BY MOUTH (08:32)
[2023-09-23] MEDS: CALCIUM CARBONATE (OSCAL) 500 MG TABLET 1000 MG PO (08:32)
[2023-09-23] MEDS: OMEGA 3 POLYUNSAT FATTY ACIDS 1 GM CAP PO (08:33)
[2023-09-23] MEDS: FUROSEMIDE 20 MG TABLET PO (08:33)
[2023-09-23] MEDS: MULTIVITAMINS THERAPEUTIC TAB (*BKC) 1 TABLET PO (08:33)
[2023-09-23] MEDS: METOPROLOL SUCCINATE EXT REL 25 MG TABCR PO (08:33)
[2023-09-23] MEDS: LEFLUNOMIDE 20 MG TABLET PO (08:34)
[2023-09-23] MEDS: GABAPENTIN 300 MG CAPSULE PO ×2 (08:34→16:52)
[2023-09-23] MEDS: RIVAROXABAN 2.5 MG TABLET PO ×2 (08:34→20:57)
[2023-09-23 12:04] LABS: Glucose Point of Care 288 mg/dl (65-105)
[2023-09-23] MEDS: INSULIN ASPART (*BKC) 100 UNITS/ML SUB-Q ×3 (12:12→20:58)
--- NOTE | 2023-09-23 12:16 | PM.IMPN ---
Progress Note: A&P Assessment and Plan (1) Sepsis: Qualifiers: Sepsis acute organ dysfunction status: unspecified Sepsis type: sepsis due to unspecified organism Qualified Code(s): A41.9 - Sepsis, unspecified organism Code(s): A41.9 - Sepsis, unspecified organism Status: Acute (2) UTI (urinary tract infection): Qualifiers: Hematuria presence: without hematuria Urinary tract infection type: acute cystitis Qualified Code(s): N30.00 - Acute cystitis without hematuria Code(s): N39.0 - Urinary tract infection, site not specified Status: Acute (3) Hypomagnesemia: Code(s): E83.42 - Hypomagnesemia Status: Acute (4) Acute hypoxic respiratory failure: Code(s): J96.01 - Acute respiratory failure with hypoxia Status: Acute (5) Elevated troponin: Code(s): R79.89 - Other specified abnormal findings of blood chemistry Status: Acute (6) BMI greater than 40: Status: Acute Plan This is a very pleasant 73-year-old female who is accompanied by her who she lives with. She has a PMH of morbid obesity, history of NSTEMI (2004, no cardiac cath done), insulin-dependent diabetes mellitus with history of amputation of left great toe, chronic normocytic anemia, history of chronic diarrhea now resolved, prior smoker, asthma, LEXII compliant with CPAP, essential hypertension, CKD, reflux disease, hypothyroidism, peripheral artery disease, rheumatoid arthritis, chronic thrombocytopenia, history of UTI with Klebsiella pneumoniae pansensitive. Patient presents with a few days of myalgias, feeling very weak, subjective fevers. Day prior to admission felt so weak she fell all try going to the bathroom. He did not hit her head or lose consciousness or have syncope or seizure. She does not feel any subsequent pain. On the day of admission the patient began to have nausea and 1 episode of emesis. Also reports shortness of breath. EMS was contacted and the patient was brought to [place] [facility]. She was found to be hypoxic and placed on 2 L nasal cannula. The patient denies previous oxygen requirement. She denies any upper respiratory symptoms. She denies chest pain. Of note, she reports she has had difficulties climbing up and down steps due to shortness of breath. He denies orthopnea. She reports a mild swelling of her right ankle, she does not know she has gained or lost weight. She has never been diagnosed with heart failure. She is a previous smoker quit many years ago. [place] [facility] evaluation demonstrated a hypoxic patient. Quad viral screen negative. Wbc's 10.4. Hemoglobin 9.8. Platelet 125. INR 1.1. Sodium 136. BUN 26. Creatinine 1.4. Magnesium 1.2. Glucose 147. Lactic acid 1.4. Troponin 0.034 and then 0.064. ProBNP 1800. Urinalysis cloudy in appearance with 3+ protein, 1+ blood, 1+ leukocyte esterase, greater than 100 wbc's. EKG without acute ischemia, sinus tachycardia. QTC 527. She received ceftriaxone 1 g IV x1, 2 L normal saline, Tylenol 1000 mg x1, Zofran 4 mg IV push x1, magnesium 2 g rider. # sepsis with UTI possible cellulitis right great toe # UTI: ceftriaxone urine culture with Gram-negative bacilli you to be identified # right toe swelling and bruise: X-ray with no fracture. Blister has opened up wound care consult. Redness around the bruise present representing cellulitis. Will add doxycycline for MRSA coverage # TERESA on CKD stage 3 likely due to Lasix and diuresis blood pressure optimal. Will monitor for now # hypoxic resp failure: Restart duoneb. recheck cxr. redose lasix iv. quad viral screen negative. Restarted home medication # congestive heart failure: echo. bnp elevated at 1810. 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 Twice. Elevated from 0.034-0.064-0.064. No acu
--- NOTE | 2023-09-23 13:37 | PCOTNOTE ---
Attempted OT evaluation. Pt. independent in room and D/C from PT services after evaluation. Pt. reports no concerns regarding ability to participate independently in ADLs and functional transfers. Nursing aware and in agreement. Canceling orders.
[2023-09-23 16:39] LABS: Glucose Point of Care 269 mg/dl (65-105)
[2023-09-23 20:48] LABS: Glucose Point of Care 250 mg/dl (65-105)
[2023-09-23] MEDS: ATORVASTATIN 40 MG TABLET PO (20:57)
[2023-09-24 00:20] LABS: Glucose Point of Care 228 mg/dl (65-105)
[2023-09-24 03:10] VITALS: PULSE 99; RESP 17; O2SAT 98
[2023-09-24 05:18] VITALS: BP 143/64; PULSE 97; RESP 18; TEMP 36.6; O2SAT 99
[2023-09-24 05:32] LABS: Basophils Percent Auto 0.8 % (0.2-1.2); Eosinophils Absolute Auto 0.2 K/mm3 (0-0.3); Eosinophils Percent Auto 4.8 % (0-4.4); Hematocrit 27.6 % (37.0-47.0); Hemoglobin 8.9 g/dL (12.0-15.0); Immature Granulocyte Absolute 0.07 K/mm3 (0.00-0.031); Immature Granulocyte Percent A 1.4 % (0-0.5); Lymphocytes Absolute Auto 1.01 K/mm3 (0.9-3.2); Mean Corpuscular HGB Conc 32.2 g/dl (32-36); Mean Corpuscular Hemoglobin 29.5 pg (26-34); Mean Corpuscular Volume 91.4 fl (80-100); Monocytes Absolute Auto 0.6 K/mm3 (0.1-0.6); Monocytes Percent Auto 11.5 % (2.6-8.5); Neutrophils Absolute Auto 3.1 K/mm3 (1.3-6.7); Neutrophils Percent Auto 61.5 % (45.5-73.1); Platelet Count Result 146 k/mm3 (150-375); Red Blood Count 3.02 M/mm3 (4.2-5.4); Red Cell Distribution Width 15.1 % (11.5-14.5)
[2023-09-24 05:45] LABS: Alanine Aminotransferase 29 U/L (6-35); Albumin Level 3.4 g/dL (3.5-5.1); Alkaline Phosphatase 129 U/L (38-126); Anion Gap 7 mmol/L (4-12); Aspartate Amino Transferase 36 U/L (14-36); Bilirubin,Total 0.3 mg/dL (0.2-1.3); Blood Urea Nitrogen 25 mg/dL (7-17); Calcium 8.9 mg/dL (8.4-10.2); Carbon Dioxide 23 mmol/L (22-30); Chloride 106 mmol/L (98-107); Estimated CRCL calculation 34 ml/min; Estimated Glomerular Filt Rate 34; Glucose 232 mg/dL (65-110); Magnesium 1.7 mg/dL (1.6-2.3); Potassium 3.9 mmol/L (3.4-5.0); Sodium 136 mmol/L (137-145)
[2023-09-24] MEDS: LEVOTHYROXINE SODIUM 100 MCG TABLET PO (06:57)
[2023-09-24] MEDS: DOXYCYCLINE HYCLATE 100 MG TABLET PO (06:57)
[2023-09-24 08:38] LABS: Glucose Point of Care 249 mg/dl (65-105)
[2023-09-24] MEDS: RIVAROXABAN 2.5 MG TABLET PO (08:48)
[2023-09-24 08:49] VITALS: PULSE 97
[2023-09-24] MEDS: LEFLUNOMIDE 20 MG TABLET PO (08:49)
[2023-09-24] MEDS: METOPROLOL SUCCINATE EXT REL 25 MG TABCR PO (08:49)
[2023-09-24] MEDS: GABAPENTIN 300 MG CAPSULE PO (08:49)
[2023-09-24] MEDS: DULoxetine HCL 20 MG CAPSULE.DR PO (08:49)
[2023-09-24] MEDS: HYDROXYCHLOROQUINE SULFATE 200 MG TABLET PO (08:49)
[2023-09-24] MEDS: FERROUS SULFATE 325 MG TABLET DR 650 MG BY MOUTH (08:50)
[2023-09-24] MEDS: CHOLECALCIFEROL 5,000 UNITS TABLET 5000 UNITS PO (08:50)
[2023-09-24] MEDS: CALCIUM CARBONATE (OSCAL) 500 MG TABLET 1000 MG PO (08:50)
[2023-09-24] MEDS: MULTIVITAMINS THERAPEUTIC TAB (*BKC) 1 TABLET PO (08:51)
[2023-09-24] MEDS: OMEGA 3 POLYUNSAT FATTY ACIDS 1 GM CAP PO (08:51)
[2023-09-24] MEDS: INSULIN ASPART (*BKC) 100 UNITS/ML SUB-Q ×2 (08:51→12:36)
--- NOTE | 2023-09-24 11:27 | PM.DS ---
DS: Admitting Diagnosis Discharge Date 09/24/2023 Admitting Diagnosis weakness fever DS: Discharge Diagnosis Discharge Diagnosis (1) Sepsis: Qualifiers: Sepsis acute organ dysfunction status: unspecified Sepsis type: sepsis due to unspecified organism Qualified Code(s): A41.9 - Sepsis, unspecified organism Code(s): A41.9 - Sepsis, unspecified organism Status: Acute (2) UTI (urinary tract infection): Qualifiers: Hematuria presence: without hematuria Urinary tract infection type: acute cystitis Qualified Code(s): N30.00 - Acute cystitis without hematuria Code(s): N39.0 - Urinary tract infection, site not specified Status: Acute (3) Hypomagnesemia: Code(s): E83.42 - Hypomagnesemia Status: Acute (4) Acute hypoxic respiratory failure: Code(s): J96.01 - Acute respiratory failure with hypoxia Status: Acute (5) Elevated troponin: Code(s): R79.89 - Other specified abnormal findings of blood chemistry Status: Acute (6) BMI greater than 40: Status: Acute DS: Summary Hospital Course Hospital Course: This is a very pleasant 73-year-old female who is accompanied by her who she lives with. She has a PMH of morbid obesity, history of NSTEMI (2004, no cardiac cath done), insulin-dependent diabetes mellitus with history of amputation of left great toe, chronic normocytic anemia, history of chronic diarrhea now resolved, prior smoker, asthma, LEXII compliant with CPAP, essential hypertension, CKD, reflux disease, hypothyroidism, peripheral artery disease, rheumatoid arthritis, chronic thrombocytopenia, history of UTI with Klebsiella pneumoniae pansensitive. Patient presents with a few days of myalgias, feeling very weak, subjective fevers. Day prior to admission felt so weak she fell all try going to the bathroom. He did not hit her head or lose consciousness or have syncope or seizure. She does not feel any subsequent pain. On the day of admission the patient began to have nausea and 1 episode of emesis. Also reports shortness of breath. EMS was contacted and the patient was brought to [place] [facility]. She was found to be hypoxic and placed on 2 L nasal cannula. The patient denies previous oxygen requirement. She denies any upper respiratory symptoms. She denies chest pain. Of note, she reports she has had difficulties climbing up and down steps due to shortness of breath. He denies orthopnea. She reports a mild swelling of her right ankle, she does not know she has gained or lost weight. She has never been diagnosed with heart failure. She is a previous smoker quit many years ago. [place] [facility] evaluation demonstrated a hypoxic patient. Quad viral screen negative. Wbc's 10.4. Hemoglobin 9.8. Platelet 125. INR 1.1. Sodium 136. BUN 26. Creatinine 1.4. Magnesium 1.2. Glucose 147. Lactic acid 1.4. Troponin 0.034 and then 0.064. ProBNP 1800. Urinalysis cloudy in appearance with 3+ protein, 1+ blood, 1+ leukocyte esterase, greater than 100 wbc's. EKG without acute ischemia, sinus tachycardia. QTC 527. She received ceftriaxone 1 g IV x1, 2 L normal saline, Tylenol 1000 mg x1, Zofran 4 mg IV push x1, magnesium 2 g rider. # sepsis with UTI possible cellulitis right great toe on ceftriaxone and doxycycline. Will switch to oral antibiotic with Augmentin and doxycycline # UTI: ceftriaxone urine culture with Gram-negative bacilli identified as Klebsiella pneumoniae pansensitive switched to Augmentin at discharge # right toe swelling and bruise: X-ray with no fracture. Blister has opened up wound care consult. Redness around the bruise present representing cellulitis. added doxycycline for MRSA coverage which will be continued complete 7 days course # TERESA on CKD stage 3 likely due to Lasix and diuresis blood pressure optimal. back to baseline by the time of discharge # hypoxic resp failure: Restart duoneb. recheck cxr. redose lasix iv. quad v
[2023-09-24 12:35] LABS: Glucose Point of Care 315 mg/dl (65-105)
== END 2023-09-24 13:10 | disposition home or self-care (01) | DRG 871 ==
LOC: ANHED 19:38 → ANHIMU 19:51 → ANH2MED 09-21 18:09
PROVIDERS: Emergency Medicine; Admitting Provider General Practice; Emergency Provider Physician Assistant; PCP Clinical Nurse Specialist; Visit Provider Internal Medicine
DX: A41.9 Sepsis, unspecified organism (principal); J96.01 Acute respiratory failure with hypoxia; N39.0 Urinary tract infection, site not specified; Z68.41 Body mass index [BMI] 40.0-44.9, adult; I13.0 Hypertensive heart and chronic kidney disease with heart failure and stage 1 through stage 4 chronic kidney disease, or unspecified chronic kidney disease; L03.031 Cellulitis of right toe; I50.9 Heart failure, unspecified; B96.1 Klebsiella pneumoniae [K. pneumoniae] as the cause of diseases classified elsewhere; E83.42 Hypomagnesemia; E66.01 Morbid (severe) obesity due to excess calories; E11.22 Type 2 diabetes mellitus with diabetic chronic kidney disease; D64.9 Anemia, unspecified; G47.33 Obstructive sleep apnea (adult) (pediatric); E03.9 Hypothyroidism, unspecified; N18.30 Chronic kidney disease, stage 3 unspecified; D69.6 Thrombocytopenia, unspecified; I73.9 Peripheral vascular disease, unspecified; I05.0 Rheumatic mitral stenosis; M06.9 Rheumatoid arthritis, unspecified; Z66 Do not resuscitate; I25.2 Old myocardial infarction; Z89.412 Acquired absence of left great toe; Z87.891 Personal history of nicotine dependence; Z20.822 Contact with and (suspected) exposure to COVID-19; Z90.49 Acquired absence of other specified parts of digestive tract
CPT/HCPCS: 36415; 71045; 71275; 73630; 74177; 80048; 80053; 81001; 82948; 83605; 83735; 83880; 84484; 85025; 85055; 85610; 85730; 87040; 87077; 87086; 87088; 87186; 87637; 93005; 94640; 96365; 96367; 96375; 96376; 97161; 99285; A9270; C8929; G0378; J0696; J1815; J1940; J2405; J3475; J7030; Q9957; Q9967

== ENCOUNTER 2023-10-06 10:32 | Outpatient (CLI) | payer MEDICARE, BC, SELFPAY ==
[2023-10-06 13:58] LABS: Add Urine Microscopic? YES; Appearance Urine Turbid (Clear); Bacteria Urine 4+ /hpf; Bilirubin Urine Negative (Negative); Blood Urine 2+ (Negative); Color Urine Yellow (Yellow); Glucose Urine UA Trace mg/dL (Negative); Ketones Urine Trace mg/dL (Negative); Leukocyte Esterase Ur 3+ LEU/UL (Negative); Need Manual Microscopic Reviewed; Nitrate Urine Positive (Negative); Protein Urine 3+ mg/dL (Negative); Squamous Epithelial Cell Urine Few /hpf (Few); Urobilinogen Urine 0.2 mg/dL (<2.0); WBC Urine >100 /hpf (0-3); pH Urine 5.5 (5.0-9.0)
== END 2023-10-06 10:33 | disposition home or self-care (01) ==
LOC: ANHGOSHLAB 10:34
PROVIDERS: PCP Clinical Nurse Specialist; Visit Provider Clinical Nurse Specialist
DX: N39.0 Urinary tract infection, site not specified (principal)
CPT/HCPCS: 81001; 87077; 87086; 87088; 87186

== ENCOUNTER 2023-12-11 14:10 | Outpatient (CLI) | payer OTHER, MEDICARE, BC, SELFPAY ==
[2023-12-11 14:31] LABS: Hematocrit 27.2 % (37.0-47.0); Hemoglobin 8.5 g/dL (12.0-15.0); Mean Corpuscular HGB Conc 31.3 g/dl (32-36); Mean Corpuscular Hemoglobin 29.3 pg (26-34); Mean Corpuscular Volume 93.8 fl (80-100); Mean Platelet Volume 12.3 fl (7.4-10.4); Platelet Count Result 110 k/mm3 (150-375); Red Cell Distribution Width 14.6 % (11.5-14.5); White Blood Count 5.5 K/mm3 (4.5-10.0)
== END 2023-12-11 14:11 | disposition home or self-care (01) ==
LOC: ANHLAB 14:16
PROVIDERS: PCP Clinical Nurse Specialist; Visit Provider Internal Medicine Gastroenterology
DX: N18.9 Chronic kidney disease, unspecified (principal); D63.1 Anemia in chronic kidney disease
CPT/HCPCS: 36415; 85027

== ENCOUNTER 2023-12-14 01:13 | Day surgery (SDC) | payer OTHER, MEDICARE, BC, SELFPAY ==
[2023-10-17 10:59] VITALS: BMI 42.5
--- NOTE | 2023-10-19 13:29 | SUR.PREOP ---
Addendum entered by Debra Renae RN 10/19/23 14:58: Pt and office notified and pt reschedule pending clearance 12/12/2023 [id number] Original Note: Patient's chart including pt's recent cardiology visit reviewed with Anesthesiologist Dr. Martin. Dr. Martin requests the patient undergo her standing heart test appointments prior to have her EGD/Colonoscopy.
[2023-12-08 15:31] VITALS: BMI 42.5
--- NOTE | 2023-12-08 15:58 | PC.NURSE ---
Spoken with patient regarding procedure, she states she is still having increased sob with exertion leading to heaviness in chest requiring her to have to sit and rest for it to be relieved. Report for KIMBERLY done by Dr. Baker still not available at this time. Told pt anethesia wants to have that report prior to procedure, I will call her Monday once I get the report and we will get her rescheduled for this procedure accordingly and she is not to hold her Xarelto.
--- NOTE | 2023-12-13 10:28 | PC.NURSE ---
Pt called at 1005 stating she has had a low blood sugar of 52 at 0700- drank 8oz. apple juice and sugar free gatorade, and at 0930 bs was 57 and wanted to know what to do since she is doing prep today and cannot eat. She states the only thing she has a home that has sugar is her apple juice and honey. I told her to drink 8ounces apple juice with 2 tsp. sugar mixed in and a cup of coffee with honey and check her sugar in 1hour. Told her she should hold her diabetic meds today and watch her blood sugar throughout the day. She will have her go to the store and get her somr regular white soda and some reg. jello to have throughout the day as her prep is mixed in sugar free gatorade.
--- NOTE | 2023-12-13 10:34 | PC.NURSE ---
Pt is cleared by Dr. Vanegas and anesthesia Dr. Martin to proceed with colonoscopy.
--- NOTE | 2023-12-13 10:35 | PC.NURSE ---
12/12/2023 Spoke with _patient_ regarding medication _xarelto_. Pt. verbalizes understanding that the last dose of _Xarelto_ is to be taken on _12/12/2023_ and the Endoscopist will instruct them when to restart after the procedure.
[2023-12-14 09:28] VITALS: BP 149/64; PULSE 95; RESP 20; TEMP 35.9; O2SAT 95; BMI 40.0
--- NOTE | 2023-12-14 09:33 | WPDANESEPPF ---
Anes - Initial Pre Proc Eval Procedure: Operation Date: 12/14/23 10:30 Proposed Procedures p Esophagogastroduodenoscopy & Colonoscopy - Juan Carlos Luna MD Date/Time: 12/14/23 09:33 Surgeon: Juan Carlos Luna MD Pre Op Diagnosis: Anemia in chronic kidney disease, Diarrhea Patient Data Age: 73 Gender: F Height: 1.55 m Weight: 96.2 kg Last Vital Signs Temp 35.9 C L 12/14/23 09:28 Pulse 95 12/14/23 09:28 Resp 20 12/14/23 09:28 BP 149/64 H 12/14/23 09:28 Pulse Ox 95 12/14/23 09:28 O2 Del Method Room Air 12/14/23 09:28 Allergies Allergy/AdvReac Type Severity Reaction Status Date / Time daptomycin Allergy Intermediate Hives Verified 12/14/23 09:25 lisinopril Allergy Intermediate Cough Verified 12/14/23 09:25 trimethoprim Allergy Intermediate Itching Verified 12/14/23 09:25 valsartan Allergy Intermediate Hives Verified 12/14/23 09:25 vancomycin Allergy Intermediate Hives Verified 12/14/23 09:25 povidone-iodine Allergy Mild Hives Verified 12/14/23 09:25 [From Betadine] sulfadimethoxine AdvReac Intermediate Vomiting Verified 12/14/23 09:25 Home Medications Medication Instructions Recorded Confirmed Type cholecalciferol (vitamin D3) 125 5,000 unit PO DAILY 01/02/19 12/14/23 History mcg (5,000 unit) tablet multivitamin 1 tablet PO DAILY 01/02/19 12/14/23 History metoprolol succinate 25 mg 25 mg PO DAILY #90 tabs 05/14/19 12/14/23 Rx tablet,extended release 24 hr metformin 1,000 mg tablet 1,000 mg PO BID #180 tabs 04/14/20 12/14/23 Rx hydroxychloroquine 200 mg tablet 200 mg PO BID 05/06/20 12/14/23 History (Plaquenil) atorvastatin 40 mg tablet 40 mg PO HS 06/18/20 12/14/23 History rivaroxaban 2.5 mg tablet (Xarelto) 2.5 mg PO BID 09/08/21 12/14/23 History calcium carbonate 1,200 mg PO DAILY 12/01/21 12/14/23 History ferrous sulfate 325 mg (65 mg 325 mg PO BID 12/01/21 12/14/23 History iron) tablet leflunomide 20 mg tablet 20 mg PO DAILY 01/27/23 12/14/23 History duloxetine 20 mg capsule,delayed 20 mg PO DAILY 09/20/23 12/14/23 History release furosemide 20 mg tablet 20 mg PO DAILY 09/20/23 12/14/23 History rifabutin 150 mg capsule 300 mg PO DAILY 10/06/23 12/14/23 History aspirin 81 mg tablet,delayed 81 mg PO DAILY 10/17/23 12/14/23 History release esomeprazole magnesium 20 mg 20 mg PO DAILY 10/17/23 12/14/23 History capsule,delayed release (Nexium 24HR) fluticasone propionate 50 1 - 2 spray intranasal BID allergy 10/17/23 12/14/23 History mcg/actuation nasal symptoms spray,suspension (Allergy Relief (fluticasone)) glimepiride 4 mg tablet 4 mg PO DAILY 10/17/23 12/14/23 History insulin glargine U-300 conc 300 55 unit subcut HS 10/17/23 12/14/23 History unit/mL (1.5 mL) subcutaneous pen (Toujeo SoloStar U-300 Insulin) omega-3 1,050 [id number] 1 cap PO BID 10/17/23 12/14/23 History oil 1,200 mg capsule gabapentin 300 mg capsule 300 mg PO BID #180 caps 10/18/23 12/14/23 Rx levothyroxine 100 mcg tablet 100 mcg PO DAILY #90 tabs 11/06/23 12/14/23 Rx (Synthroid) albuterol sulfate 90 mcg/actuation 2 puff inhalation Q4-6H PRN 11/29/23 12/14/23 Rx aerosol inhaler shortness of breath #18 grams magnesium oxide 400 mg (241.3 mg 400 mg PO DAILY 12/12/23 12/14/23 History magnesium) tablet Patient hx anesthesia problems: none Family hx anesthesia problems: none Results Review: All pre-operative results and documents have been reviewed as part of the pre-operative evaluation. [facility] Past Medical History Medical History Abdominal pain Acute pain of both hips Acute pain of both knees Amputation toe Anemia Arthritis of knee, degenerative BMI greater than 40 Carpal tunnel syndrome, bilateral Cellulitis of right foot Charcot ankle Chicken pox Chronic abdominal pain Chronic diarrhea Chronic pain Colon cancer screening Diabetic ulcer of right midfoot melanie
[2023-12-14 09:52] LABS: Glucose Point of Care 70 mg/dl (65-105)
[2023-12-14] MEDS: LACTATED RINGERS 1,000 ML 150 ML IV CONT (10:03)
--- NOTE | 2023-12-14 10:20 | PM.HPGS ---
History of Present Illness History of Present Illness Consent: Risks, benefits, and alternatives have been discussed and questions answered. Patient agrees to proceed with procedure. Chief complaint: Anemia in chronic kidney disease, Diarrhea Narrative: Aleyda Dobbs is a 73 year old female here for egd and colonoscopy because of anemia- currently seeing Dr Richards, hgb 9-10, normocytic and required iv iron. Also h/o DM, post cholecystectomy and taking many other meds (polypharmacy). Egd and colonoscopy 04/2020 that showed normal EGD (no celiac, mild gastritis and esophagitis per bx- on ppi daily), colon with benign polyps, no obvious colitis but random colon bx with mild colitis- she does not longer have diarrhea. Denies overt gib Review of Systems Review of Systems: All systems reviewed & are unremarkable except as noted in HPI and below PMFSH Past Medical History Medical History Abdominal pain Acute pain of both hips Acute pain of both knees Amputation toe Anemia Arthritis of knee, degenerative BMI greater than 40 Carpal tunnel syndrome, bilateral Cellulitis of right foot Charcot ankle Chicken pox Chronic abdominal pain Chronic diarrhea Chronic pain Colon cancer screening 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 2 diabetes mellitus Diarrhea Ear ache Essential hypertension Flat foot [pes planus] (acquired), left foot Gastroparesis Heartburn Hernia History of GA (myocardial infarction) Hives Hypertension Hypothyroidism Left knee DJD Left shoulder pain 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 Microscopic colitis Non-pressure chronic ulcer of other part of unspecified foot limited to breakdown of skin Non-pressure chronic ulcer of right heel and midfoot with bone involvement without evidence of necrosis Numbness in both hands Obesity Other chronic pain Pain in left hand Peripheral arterial disease Pes planus of both feet Pneumonia Polyneuropathy Polyneuropathy 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 Posterior tibial tendon dysfunction, left Pre-op evaluation Rheumatoid arthritis Rheumatoid arthritis of unspecified site with involvement of other organs and systems Rib pain on right side Right knee DJD Right wrist pain Rotator cuff tendonitis Sepsis Sore throat Thrombocytopenia Type 2 diabetes mellitus Type 2 diabetes mellitus with complication UTI (urinary tract infection) Surgical History Surgical History Amputation of left great toe H/O foot surgery Poor historian- potential left posterior tibial tendon reconstruction Right foot charcot history? with surgery. History of carpal tunnel release History of hernia repair Hx of cholecystectomy Family History Family History Father Hyperlipidemia Lung cancer Diabetes mellitus Mother Diabetes mellitus Other Family history of allergic disorder Hypertension Social History Social History Social History: Patient quit tobacco in 1997 after smoking a pack a day for about 30 years. She denies drug use. She occasionally drinks alcohol. Still lives at home with her and brother. She is a full code. She nominated her daughter Elisha to be the individual make medical decisions for her if she is unable. Smoking packs per day: 1 Smoking cigarettes per day: 20.0 Years smoked: 29 Smoking pack-years: 29.00 Smoking status: Former smoker Tobacco type: cigarettes Smoking end date: 02/27/05 Alcohol intake: current Alcohol use details: occasionally Substance use: never Substance use type: does not use Do You Feel Safe in your Home?: Yes Lack of Transportation: No Lack of Food: Never True Current Housing: I Have Housing Concerned About Future Housing: YES Difficulty Paying Gas/Electric Bills: No Difficulty Pay
--- NOTE | 2023-12-14 10:41 | SUR.OPER ---
egd ended at 1033 and colonoscopy started at 1038
[2023-12-14 10:58] VITALS: BP 90/45; PULSE 72; RESP 18; O2SAT 98
[2023-12-14 11:08] VITALS: BP 103/53; PULSE 77; RESP 18; O2SAT 97
[2023-12-14 11:18] VITALS: BP 125/58; PULSE 77; RESP 18; O2SAT 93
--- NOTE | 2023-12-14 11:33 | SUR.PHASEII ---
blood sugar was 54, gave soda and crackers. Will check again
[2023-12-14 12:01] LABS: Glucose Point of Care 54 mg/dl (65-105)
[2023-12-14 12:01] LABS: Glucose Point of Care 76 mg/dl (65-105)
== END 2023-12-14 11:58 | disposition home or self-care (01) ==
PROVIDERS: PCP Clinical Nurse Specialist; Visit Provider Internal Medicine Gastroenterology
PROC: 0DJ08ZZ Inspection of Upper Intestinal Tract, Via Natural or Artificial Opening Endoscopic (ICD-10-PCS; CPT 43235; principal; 2023-12-14 10:30)
DX: D64.9 Anemia, unspecified (principal); Q27.33 Arteriovenous malformation of digestive system vessel; K64.8 Other hemorrhoids; I10 Essential (primary) hypertension; I25.2 Old myocardial infarction; E03.9 Hypothyroidism, unspecified; E11.51 Type 2 diabetes mellitus with diabetic peripheral angiopathy without gangrene; M05.60 Rheumatoid arthritis of unspecified site with involvement of other organs and systems; E66.01 Morbid (severe) obesity due to excess calories; Z68.41 Body mass index [BMI] 40.0-44.9, adult; Z79.84 Long term (current) use of oral hypoglycemic drugs; Z79.01 Long term (current) use of anticoagulants; Z79.82 Long term (current) use of aspirin; Z79.4 Long term (current) use of insulin; Z79.51 Long term (current) use of inhaled steroids; Z87.891 Personal history of nicotine dependence
CPT/HCPCS: 45388; 82948; J2003; J2704; J7120

== ENCOUNTER 2024-01-09 07:12 | Outpatient (RCR) | payer OTHER, MEDICARE, BC, SELFPAY ==
[2023-10-16 08:14] VITALS: BMI 43.5
== END 2024-01-14 23:59 | disposition home or self-care (01) ==
LOC: ANHWOC 07:12
PROVIDERS: PCP Clinical Nurse Specialist; Visit Provider Clinical Nurse Specialist
DX: L97.523 Non-pressure chronic ulcer of other part of left foot with necrosis of muscle (principal); S91.101A Unspecified open wound of right great toe without damage to nail, initial encounter
CPT/HCPCS: 99213; 99214; G0463

== ENCOUNTER 2024-01-18 16:57 | Inpatient (IN) | payer OTHER, MEDICARE, BC, SELFPAY ==
--- NOTE | ~2024-01-18 | CT_ITS ---
EXAMINATION: CTA chest PE protocol DATE: 01/21/2024 22:29 INDICATION: Pulmonary embolism. TECHNIQUE: Computed tomography angiography (CTA) of the chest was performed with 100 mL Omnipaque-350 intravenous contrast timed to evaluate the pulmonary arteries. Coronal maximum intensity projection 3D-reconstructions were created by the technologist. Automated exposure control and iterative reconst ruction technique were employed. The dose-length product was 860.92 mGy-cm. COMPARISON: Chest CT 09/20/2023, CT abdomen and pelvis 06/19/2020 FINDINGS: A calcified right lung nodule and calcified right hilar and mediastinal lymph nodes are con sistent with old granulomatous disease. There is smooth septal thickening in the lungs, consistent mi ld pulmonary edema. There are small pleural effusions. The heart size is normal. There are coronary a rtery calcifications. No pericardial effusion. The central pulmonary arteries are enlarged, consisten t with pulmonary arterial hypertension. There is no pulmonary embolus. There are changes of cholecyst ectomy. Calcifications in the spleen are consistent with old granulomatous disease. There is 4.1 cm m ass with central calcifications in the spleen, stable from 06/19/2020, likely benign. There are change s of ventral hernia repair. There is mild thoracic spondylosis. IMPRESSION: 1. No pulmonary embolus. 2. Mild pulmonary edema. 3. Small pleural effusions. Reviewed, dictated and finalized at location A. ET SWEEPER OPERATOR
--- NOTE | ~2024-01-18 | US_ITS ---
EXAMINATION: US venous doppler LE RT DATE: 01/21/2024 11:51 INDICATION: Right lower limb pain and swelling TECHNIQUE: Grayscale ultrasound images without and with compression and Doppler ultrasound images of the right lower extremity veins were obtained. COMPARISON: None. FINDINGS: The visualized portions of right common femoral vein, profunda (deep) femoral vein, femoral vein, pop liteal vein, peroneal trunk, peroneal veins, gastrocnemius vein and greater saphenous vein outflow ar e patent. IMPRESSION: 1. Zfazr-eyk-vpwv deep venous thrombosis in the right posterior tibial veins. Findings were discusse d with Stacy Rojas, the nurse caring for the patient, at 12:07 PM. Reviewed, dictated and finalized at location A. TING ROLLER HANDLER IMPRESSION: 1. Bvurw-wmt-lzrk deep venous thrombosis in the right posterior tibial veins. Findings were discussed with Stacy Rojas, the nurse caring for the patient, a t 12:07 PM.
--- NOTE | ~2024-01-18 | XR_ITS ---
EXAMINATION: XR chest 1V DATE: 01/18/2024 22:06 INDICATION: Fever. TECHNIQUE: A single frontal view of the chest was obtained. COMPARISON: Chest single view 09/21/2023, chest CT 09/20/2023 FINDINGS: A calcified right lung nodule and calcified right hilar lymph nodes are consistent with old granulomatous disease. No pleural effusion or pneumothorax. The heart size is normal. IMPRESSION: 1. No acute cardiopulmonary disease. Reviewed, dictated and finalized at location A. L SUMMER INTERN
--- NOTE | ~2024-01-18 | XR_ITS ---
EXAMINATION: XR knee RT 3V DATE: 01/18/2024 22:06 INDICATION: Fall. TECHNIQUE: 3 views of right knee were obtained. COMPARISON: Right knee radiographs 08/28/2023 FINDINGS: Alignment is normal. No fracture. There is moderate tricompartmental osteoarthritis. No kne e effusion. IMPRESSION: 1. Moderate right knee osteoarthritis. Reviewed, dictated and finalized at location A. EACH CONSULTANT
--- NOTE | ~2024-01-18 | XR_ITS ---
EXAMINATION: XR foot RT min 3V DATE: 01/18/2024 22:06 INDICATION: Right great toe osteomyelitis. TECHNIQUE: 3 views of right foot were obtained. COMPARISON: Right foot radiographs 09/21/2023 FINDINGS: There is moderate hallux valgus. No fracture. There is a fusion procedure of first interpha langeal joint with lag screw. There are changes of fusion procedures involving talus, calcaneus, and cuboid with screws and plate. There is an old healed fracture deformity of neck of fifth metatarsal. There is mild osteoarthritis of some of the midfoot joints. IMPRESSION: 1. No evidence of osteomyelitis. Reviewed, dictated and finalized at location A. R SERVICES MANAGER
[2024-01-18 17:10] VITALS: BP 151/75; PULSE 93; RESP 20; TEMP 36.7; O2SAT 94
[2024-01-18 20:47] LABS: Add Urine Microscopic? YES; Appearance Urine Cloudy (Clear); Bacteria Urine 4+ /hpf; Bilirubin Urine Negative (Negative); Blood Urine 2+ (Negative); Color Urine Yellow (Yellow); Glucose Urine UA Trace mg/dL (Negative); Ketones Urine Negative (Negative); Leukocyte Esterase Ur 2+ LEU/UL (Negative); Nitrate Urine Negative (Negative); Protein Urine 3+ mg/dL (Negative); RBC Urine 21-50 /hpf (0-2); Specific Grav Ur 1.018 (1.001-1.035); Squamous Epithelial Cell Urine None Seen /hpf (Few); Urobilinogen Urine 0.2 mg/dL (<2.0); WBC Urine >100 /hpf (0-3)
--- NOTE | 2024-01-18 21:48 | ECG_ITS ---
Test Date: 2024-01-18 23:32:16 Measurements Intervals [place] Rate: 83 P: 12 CA: 149 QRS: -4 QRSD: 101 T: 21 QT: 402 QTc: 473 Interpretive Statements SINUS RHYTHM CANNOT R/O SEPTAL INFARCT, AGE INDETERMINATE NONSPECIFIC T-WAVE ABNORMALITY- INFERIOR LEADS BASELINE ARTIFACT- I, II, AVR ABNORMAL ECG Compared to ECG 09/20/2023 15:22:30 HEART RATE HAS DECREASED Electronically Signed On 01-19-2024 06:39:08 GATHERING MACHINE SETTER by Dewayne Jacobson D.O.
--- NOTE | 2024-01-18 21:48 | ED.GENADULT ---
HPI - General Adult General Chief complaint: Urogenital-Female Stated complaint: uti/wound to right foot Time Seen by Provider: 01/18/24 21:39 Source: patient and family Mode of arrival: ambulatory Limitations: no limitations History of Present Illness HPI narrative: 73 YEARS OLD WHITE FEMALE CAME WITH HER DAUGHTER FROM HOME COMPLAINING OF FEVER AND CHILLS OVER THE LAST 24 HOURS. PATIENT ALSO COMPLAINING OF HER RIGHT FOOT IS WARM AND RED. PATIENT DENIES ANY CHEST PAIN SHORTNESS OF BREATH ABDOMINAL PAIN OR URINARY SYMPTOMS. HISTORY OF DIABETES, HYPERTENSION, HYPERLIPIDEMIA ASTHMA, LEFT BIG TOE AMPUTATION, RIGHT BEAK TO CHRONIC WOUND INFECTION MANAGED BY A WOUND CLINIC. Related Data Home Medications Medication Instructions Recorded Confirmed cholecalciferol (vitamin D3) 125 5,000 unit PO DAILY 01/02/19 01/08/24 mcg (5,000 unit) tablet multivitamin 1 tablet PO DAILY 01/02/19 01/08/24 hydroxychloroquine 200 mg tablet 200 mg PO BID 05/06/20 01/08/24 (Plaquenil) atorvastatin 40 mg tablet 40 mg PO HS 06/18/20 01/08/24 rivaroxaban 2.5 mg tablet (Xarelto) 2.5 mg PO BID 09/08/21 01/08/24 calcium carbonate 1,200 mg PO DAILY 12/01/21 01/08/24 ferrous sulfate 325 mg (65 mg 325 mg PO BID 12/01/21 01/08/24 iron) tablet duloxetine 20 mg capsule,delayed 20 mg PO DAILY 09/20/23 01/08/24 release furosemide 20 mg tablet 20 mg PO DAILY 09/20/23 01/08/24 aspirin 81 mg tablet,delayed 81 mg PO DAILY 10/17/23 01/08/24 release esomeprazole magnesium 20 mg 20 mg PO DAILY 10/17/23 01/08/24 capsule,delayed release (Nexium 24HR) fluticasone propionate 50 1 - 2 spray intranasal BID allergy 10/17/23 01/08/24 mcg/actuation nasal symptoms spray,suspension (Allergy Relief (fluticasone)) glimepiride 4 mg tablet 4 mg PO DAILY 10/17/23 01/08/24 insulin glargine U-300 conc 300 55 unit subcut HS 10/17/23 01/08/24 unit/mL (1.5 mL) subcutaneous pen (Toanh SoloStar U-300 Insulin) omega-3 1,050 en-vcb-pbl-dpa-fish 1 cap PO BID 10/17/23 01/08/24 oil 1,200 mg capsule magnesium oxide 400 mg (241.3 mg 400 mg PO DAILY 12/12/23 01/08/24 magnesium) tablet isoniazid 300 mg tablet 300 mg PO DAILY 01/08/24 01/08/24 Allergies Allergy/AdvReac Type Severity Reaction Status Date / Time daptomycin Allergy Intermediate Hives Verified 01/18/24 23:36 lisinopril Allergy Intermediate Cough Verified 01/18/24 23:36 trimethoprim Allergy Intermediate Itching Verified 01/18/24 23:36 valsartan Allergy Intermediate Hives Verified 01/18/24 23:36 vancomycin Allergy Intermediate Hives Verified 01/18/24 23:36 povidone-iodine Allergy Mild Hives Verified 01/18/24 23:36 [From Betadine] sulfadimethoxine AdvReac Intermediate Vomiting Verified 01/18/24 23:36 Review of Systems Review of Systems: All systems reviewed & are unremarkable except as noted in HPI and below PMFSH Past Medical History Medical History Abdominal pain Acute pain of both hips Acute pain of both knees Amputation toe Anemia Arthritis of knee, degenerative BMI greater than 40 Carpal tunnel syndrome, bilateral Cellulitis of right foot Charcot ankle Chicken pox Chronic abdominal pain Chronic diarrhea Chronic pain Colon cancer screening 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 2 diabetes mellitus Diarrhea Ear ache Essential hypertension Flat foot [pes planus] (acquired), left foot Gastroparesis Heartburn Hernia History of [place] (myocardial infarction) Hives Hypertension Hypothyroidism Left knee DJD Left shoulder pain Left wrist pain halfway (current) use of insulin Microscopic colitis Non-pressure chronic ulcer of other part of unspecified foot limited to breakdown of skin Non-pressure chronic ulcer of right heel and midfoot with bone involvement without evidence of necrosis Numbness in both hands Obesity Other chronic pain Pain in left hand Peripheral arterial disease Pes planus of both feet Pneumonia Polyneuropathy Polyneuropathy 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 Posterior tibial tendon dysfunction, left Pre-op evaluation Rheumatoid arthritis Rheumatoid arthritis of unspecified site with involvement of other organs and systems Rib pain on right side Right knee DJD Right wrist pain Rotator cuff tendonitis Sepsis Sore throat Thrombocytopenia Type 2 diabetes mellitus Type 2 diabetes mellitus with complication UTI (urinary tract infection) Surgical History Surgical History Amputation of left great toe H/O foot surgery Poor historian- potential left posterior tibial tendon reconstruction Right foot charcot history? with surgery. History of carpal tunnel release History of hernia repair Hx of cholecystectomy Family History Family History Father Hyperlipidemia Lung cancer Diabetes mellitus Mother Diabetes mellitus Other Family history of allergic disorder Hypertension Social History Social History Social History: Patient quit tobacco in 1997 after smoking a pack a day for about 30 years. She denies drug use. She occasionally drinks alcohol. Still lives at home with her and brother. She is a full code. She nominated her daughter Elisha to be the individual make medical decisions for her if she is unable. Smoking packs per day: 1 Smoking cigarettes per day: 20.0 Years smoked: 29 Smoking pack-years: 29.00 Smoking status: Former smoker Tobacco type: cigarettes Smoking end date: 02/27/05 Alcohol intake: current Alcohol use details: occasionally Substance use: never Substance use type: does not use Do You Feel Safe in your Home?: Yes Lack of Transportation: No Lack of Food: Never True Current Housing: I Have Housing Concerned About Future Housing: No Difficulty Paying Gas/Electric Bills: No Difficulty Paying for Meds: No Currently Unemployed: No Education: High School Diploma/GED Difficulty w/ Childcare or Family Care: No Living arrangements: with family Gender identity (if verbalized by the patient): Female Spiritual care concerns: No Exam Narrative: GENERAL APPEARANCE: WELL-DEVELOPED, WELL-NOURISHED SKIN: NORMAL COLOR HEAD: NORMOCEPHALIC, NONTRAUMATIC EYES: CLEAR CONJUNCTIVA ENT: OROPHARYNX NORMAL, EARS NORMAL, NOSE NORMAL NECK: SUPPLE, NONTENDER CHEST AND RESPIRATORY: AIRWAY PATENT, NO RESPIRATORY DISTRESS, NO ACCESSORY MUSCLE USE HEART: REGULAR RATE/RHYTHM ABDOMEN: SOFT, NONTENDER, NO ORGANOMEGALY, QUIET BOWEL SOUNDS VASCULAR: NORMAL PERIPHERAL PULSES, NORMAL CAPILLARY REFILL. MUSCULOSKELETAL: RIGHT FOOT EXAM SHOWED DIFFUSE REDNESS AND WARMTH DORSALLY AROUND THE BIG TOE, , A COLLES LIKE LESION AT THE PLANTAR SIDE OF THE RIGHT BIG TOE OOZING BLOODY PURULENT DISCHARGE NEUROLOGIC: ALERT AND ORIENTED ?3, SENIOR CLINICAL STUDY MANAGER IS NORMAL TESTED, NO GROSS MOTOR DEFICIT Course Vital Signs Vital signs: Vital Signs Temperature 36.7 C 01/18/24 17:10 Pulse Rate 93 01/18/24 17:10 Respiratory Rate 20 01/18/24 17:10 Blood Pressure 151/75 H 01/18/24 17:10 Pulse Oximetry 94 01/18/24 17:10 Temperature 36.9 C 01/18/24 23:24 Pulse Rate 84 01/18/24 23:24 Respiratory Rate 18 01/18/24 23:24 Blood Pressure 102/45 L 01/18/24 23:24 Pulse Oximetry 98 01/18/24 23:24 Medical Decision Making MDM Narrative Medical decision making narrative: PATIENT PRESENTS WITH FEVER AND CHILLS VITAL SIGNS ARE STABLE PHYSICAL EXAMINATION SHOWING INFECTED RIGHT BEAK TOE, DIABETIC FOOT DIFFERENTIAL DIAGNOSIS DIABETIC FOOT, OSTEOMYELITIS OF THE RIGHT BIG TOE, URINARY TRACT INFECTION, PNEUMONIA, ELECTROLYTE IMBALANCE, DEHYDRATION, HYPERGLYCEMIA BLOOD WORKUP TODAY INCLUDED CBC, CMP, BLOOD CULTURE, LACTIC ACID, PT AND PTT SHOWED WBC OF 10.4, HEMOGLOBIN 8.9, PT OF 19.0, BNP 34, CREATININE 1.7 C-REACTIVE PROTEIN 14.0 URINE ANALYSIS SHOWED EVIDENCE OF INFECTION X-RAY OF THE RIGHT KNEE AND RIGHT FOOT SHOWED NO ACUTE ABNORMALITIES CHEST X-RAY SHOWED NO ACUTE ABNORMALITY ADMIT TO HOSPITALIST, DIAGNOSIS DIABETIC FOOT AND URINARY TRACT INFECTION Differential Diagnosis Differential Diagnosis: ABOVE Vital Signs Vital Signs: Vital Signs Temperature 36.7 C 01/18/24 17:10 Pulse Rate 93 01/18/24 17:10 Respiratory Rate 20 01/18/24 17:10 Blood Pressure 151/75 H 01/18/24 17:10 Pulse Oximetry 94 01/18/24 17:10 Temperature 36.9 C 01/18/24 23:24 Pulse Rate 84 01/18/24 23:24 Respiratory Rate 18 01/18/24 23:24 Blood Pressure 102/45 L 01/18/24 23:24 Pulse Oximetry 98 01/18/24 23:24 Lab Data 01/18/24 23:16 01/18/24 23:16 Labs: Lab Results 01/18/24 01/18/24 01/18/24 Range/Units 20:38 23:16 23:25 WBC 10.4 H (4.5-10.0) K/mm3 RBC 3.27 L (4.2-5.4) M/mm3 Hgb 8.9 L (12.0-15.0) g/dL Hct 28.4 L (37.0-47.0) % MCV 86.9 (80-100) fl MCH 27.2 (26-34) pg MCHC 31.3 L (32-36) g/dl RDW 15.4 H (11.5-14.5) % Plt Count 163 (150-375) k/mm3 MPV 11.3 H (7.4-10.4) fl Immature Gran % (Auto) 0.6 H (0-0.5) % Neut % (Auto) 66.0 (45.5-73.1) % Lymph % (Auto) 21.1 (18.3-44.2) % [place] % (Auto) 10.0 H (2.6-8.5) % Eos % (Auto) 1.9 (0-4.4) % Baso % (Auto) 0.4 (0.2-1.2) % Lymph # (Auto) 2.18 (0.9-3.2) K/mm3 [place] # (Auto) 1.0 H (0.1-0.6) K/mm3 Eos # (Auto) 0.2 (0-0.3) K/mm3 Baso # (Auto) 0.0 (0.0-0.1) K/mm3 Abs Immat Gran (auto) 0.06 H (0.00-0.031) K/mm3 Absolute Neuts (auto) 6.8 H (1.3-6.7) K/mm3 Absolute Nucleated RBC 0.000 (0.0-0.012) K/mm3 Nucleated RBC % 0.0 (0.0-0.2) % PT Pending INR Pending APTT Pending Sodium Pending Potassium Pending Chloride Pending Carbon Dioxide Pending Anion Gap Pending BUN Pending Creatinine Pending Estim Creat Clear Calc Pending Estimated GFR Pending Glucose Pending Lactic Acid Pending Calcium Pending Total Bilirubin Pending AST Pending ALT Pending Alkaline Phosphatase Pending C-Reactive Protein Pending Total Protein Pending Albumin Pending Urine Color Yellow (Yellow) Urine Appearance Cloudy H (Clear) Urine pH 5.0 (5.0-9.0) Ur Specific [place] 1.018 (1.001-1.035) Urine Protein 3+ H (Negative) mg/dL Urine Glucose (UA) Trace H (Negative) mg/dL Urine Ketones Negative (Negative) mg/dL Ur Blood (Man) 2+ H (Negative) Urine Nitrate Negative (Negative) Urine Bilirubin Negative (Negative) Urine Urobilinogen 0.2 (<2.0) mg/dL Leukocyte Esterase Rfl 2+ H (Negative) SCARLET/UL Urine RBC 21-50 H (0-2) /hpf Urine WBC >100 H (0-3) /hpf Ur Squamous Epith Cells None seen (Few) /hpf Urine Bacteria 4+ H /hpf Urine Casts 3-5 Imaging Data Radiologist's impression: Impressions Foot X-Ray 01/18/24 22:10 IMPRESSION: 1. No evidence of osteomyelitis. Chest X-Ray 01/18/24 22:13 IMPRESSION: 1. No acute cardiopulmonary disease. Knee X-Ray 01/18/24 22:14 IMPRESSION: 1. Moderate right knee osteoarthritis. ECG Data EKG #1: Attestation: I personally reviewed and interpreted this ECG as follows: ECG completion date: 01/18/24 Interpretation: NORMAL SINUS RHYTHM AT 83 BEATS PER MINUTE, NONSPECIFIC T-WAVE ABNORMALITY, COMPARED TO EKG ON SEPTEMBER 19 T-WAVE ABNORMALITY NOW PRESENT SINUS TACHYCARDIA NO LONGER PRESENT LEFT AXIS DEVIATION NO LONGER PRESENT MYOCARDIAL INFARCTION FINDING COULD NO LONGER PRESENT Critical Care Time Critical Care Time Critical Care Time: No Discharge Plan Discharge Clinical Impression: Urinary tract infection, Diabetic foot Patient Disposition: Still a Patient Condition: Stable Prescriptions: No Action multivitamin Tablet 1 tablet PO DAILY cholecalciferol (vitamin D3) 5,000 unit tablet 5,000 unit PO DAILY Xarelto 2.5 mg tablet 2.5 mg PO BID ferrous sulfate 325 mg (65 mg iron) tablet 325 mg PO BID calcium carbonate 600 mg calcium (1,500 mg) tablet 1,200 mg PO DAILY metoprolol succinate 25 mg tablet extended release 24 hr 25 mg PO DAILY Qty: 90 0RF isoniazid 300 mg tablet 300 mg PO DAILY hydroxychloroquine [Plaquenil] 200 mg tablet 200 mg PO BID atorvastatin 40 mg tablet 40 mg PO HS aspirin 81 mg tablet,delayed release (DR/EC) 81 mg PO DAILY Patient Comments: ON HOLD glimepiride 4 mg tablet 4 mg PO DAILY zyjrt-[id number]-[id number]-gad-eld-vxfh oil 1,050-1,200 mg Capsule 1 cap PO BID insulin glargine U-300 conc [T[employer] SoloStar U-300 Insulin] 300 unit/mL (1.5 mL) insulin pen 55 unit SUBCUT HS fluticasone propionate [Allergy Relief (fluticasone)] 50 mcg/actuation spray,suspension 1 - 2 spray NASAL BID esomeprazole magnesium [Nexium 24HR] 20 mg Capsule,Delayed Release(Dr/Ec) 20 mg PO DAILY magnesium oxide 400 mg (241.3 mg magnesium) tablet 400 mg PO DAILY furosemide 20 mg tablet 20 mg PO DAILY duloxetine 20 mg capsule,delayed release(DR/EC) 20 mg PO DAILY Rx Instructions: TAKE 1 CAPSULE DAILY metformin 1,000 mg tablet 1,000 mg PO BID Qty: 180 0RF gabapentin 300 mg capsule 300 mg PO BID Qty: 180 1RF Rx Instructions: Due for appointment in March albuterol sulfate 90 mcg/actuation HFA aerosol inhaler 2 puff INHALATION Q4-6H PRN (Reason: shortness of breath) Qty: 18 2RF levothyroxine [Synthroid] 100 mcg tablet 100 mcg PO DAILY Qty: 90 1RF Follow-up/Referrals: Charles Armendariz DO [Primary Care Provider] -
[2024-01-18 23:24] VITALS: BP 102/45; PULSE 84; RESP 18; TEMP 36.9; O2SAT 98
[2024-01-18 23:24] LABS: Basophils Percent Auto 0.4 % (0.2-1.2); Eosinophils Absolute Auto 0.2 K/mm3 (0-0.3); Eosinophils Percent Auto 1.9 % (0-4.4); Hematocrit 28.4 % (37.0-47.0); Hemoglobin 8.9 g/dL (12.0-15.0); Immature Granulocyte Absolute 0.06 K/mm3 (0.00-0.031); Immature Granulocyte Percent A 0.6 % (0-0.5); Lymphocytes Absolute Auto 2.18 K/mm3 (0.9-3.2); Lymphocytes Percent Auto 21.1 % (18.3-44.2); Mean Corpuscular HGB Conc 31.3 g/dl (32-36); Mean Corpuscular Hemoglobin 27.2 pg (26-34); Mean Corpuscular Volume 86.9 fl (80-100); Mean Platelet Volume 11.3 fl (7.4-10.4); Neutrophils Absolute Auto 6.8 K/mm3 (1.3-6.7); Platelet Count Result 163 k/mm3 (150-375); Red Blood Count 3.27 M/mm3 (4.2-5.4); Red Cell Distribution Width 15.4 % (11.5-14.5); White Blood Count 10.4 K/mm3 (4.5-10.0)
[2024-01-18 23:35] LABS: INR 1.5
[2024-01-18 23:36] LABS: Partial Thromboplastin Time 39.7 Seconds (22.3-36.8)
[2024-01-18] MEDS: PIPERACILLN/TAZ 3.375GM/NS50ML 3.375 GM/50 ML BAG IVPB (23:37)
[2024-01-18 23:39] LABS: Lactic Acid Reflex 1.3 mmol/L (0.7-2.0)
[2024-01-19] VITALS (13 sets, daily range): BP systolic 111–145; BP diastolic 50–72; PULSE 84–104; RESP 12–24; TEMP 36.3–37.7; O2SAT 95–100; BMI 40.7
[2024-01-19 00:01] LABS: Alanine Aminotransferase 16 U/L (6-35); Albumin Level 3.4 g/dL (3.5-5.1); Alkaline Phosphatase 117 U/L (38-126); Anion Gap 6 mmol/L (4-12); Aspartate Amino Transferase 37 U/L (14-36); Bilirubin,Total 0.7 mg/dL (0.2-1.3); Blood Urea Nitrogen 34 mg/dL (7-17); Calcium 8.1 mg/dL (8.4-10.2); Carbon Dioxide 25 mmol/L (22-30); Chloride 102 mmol/L (98-107); Estimated CRCL calculation 29 ml/min; Estimated Glomerular Filt Rate 30; Glucose 147 mg/dL (65-110); Potassium 3.6 mmol/L (3.4-5.0); Sodium 133 mmol/L (137-145)
[2024-01-19] MEDS: SODIUM CHLORIDE 0.9% IV 1,000 ML 999 ML IV CONT (00:10)
--- NOTE | 2024-01-19 01:13 | ADMGEN ---
This patient, Aleyda Dobbs, was admitted to [facility] Room 305-02. Patient/family oriented to hospital policies and general routines including ID bracelet, bed and alarms, visiting hours, pain management, procedures, bathroom and other care routines, personal items, smoking policy, room service/diet, and visiting hours. Information on how to activate the Rapid Response Team has been discussed. Patient/Family are encouraged to report perceived risks to care and to ask questions if they do not understand what they are told or what they should do. 1:13
[2024-01-19] MEDS: SODIUM CHLORIDE 0.9% IV 1,000 ML 125 ML IV CONT ×3 (02:03→17:18)
[2024-01-19] MEDS: HYDROmorphone HCL INJ (*CRX) 1 MG/ML SYR IV PUSH ×3 (02:04→20:22)
[2024-01-19 05:08] LABS: Glucose Point of Care 140 mg/dl (65-105)
[2024-01-19] MEDS: PIPERACILLIN/TAZ 2.25G/NS 50ML 2.25 GM/50 ML BAG IVPB ×3 (06:51→17:20)
[2024-01-19 07:23] LABS: Glucose Point of Care 95 mg/dl (65-105)
[2024-01-19 11:22] LABS: Glucose Point of Care 116 mg/dl (65-105)
[2024-01-19] MEDS: DOXYCYCLINE HYCLATE 100 MG TABLET PO ×2 (14:21→20:22)
--- NOTE | 2024-01-19 14:52 | P.HP_ITS ---
H&P: HPI History of Present Illness Date/Time: 01/19/24 14:52 Chief Complaint: fever, chills, cellulitis Narrative: this is a 73-year-old female with a significant past medical history of Diabetes, hypertension, hyper lipid, asthma, left big toe amputation who presented to the hospital with complaints of fever, chills, and cellulitis changes to her right foot. right foot x-ray shows no evidence of osteomyelitis. patient reports the following history of presenting illness. She states that she noticed that her right foot and great toe was swollen, warm and red and she originally called the wound clinic who prompted her to go to the ER for further evaluation. she has been seen in the Wound Clinic for a couple of months now for her chronic diabetic foot wound. She states her symptoms started yesterday. Patient denies any fever, chills, nausea, vomiting, diarrhea, abdominal pain, chest pain, shortness a breath. Chest x-ray was negative. Right knee x-ray showed moderate right knee osteoarthritis, no effusion. Initial labs showed a white blood cell count of 10.4, RBC 3.27, hemoglobin 8.9, INR 1.5, sodium 133, creatinine 1.70, EGFR 30, blood sugar ranging 95-147, lactic acid was normal at 1.3, AST 37, C reactive protein 14.0. A UA was obtained showed cloudy urine appearance, 3+ urine protein, trace glucose, 2+ urine blood, 2+ leukocytes, 21- 50 urine RBC, greater than 100 urine WBC, 4+ urine bacteria. Blood and urine cultures were obtained and pending. EKG showed sinus rhythm with a rate of 83, QTC 473. Patient was given Zosyn and vancomycin along with IV fluids in the ED. Review of Systems Review of Systems: All systems reviewed & are unremarkable except as noted in HPI and below Constitutional: Constitutional: Reports as per HPI and Reports no additional constitutional complaints Eyes: Eyes: Reports as per HPI and Reports no additional eye complaints ENT: Reports system reviewed and no additional complaints, except as documented and Reports as per HPI Cardiovascular: Cardiovascular: Reports as per HPI and Reports no additional cardiovascular complaints Respiratory: Respiratory: Reports as per HPI and Reports no additional respiratory complaints Gastrointestinal: Gastrointestinal: Reports as per HPI and Reports no additional gastrointestinal complaints Genitourinary: Genitourinary: Reports no additional female genitourinary complaints and Reports as per HPI Musculoskeletal: Musculoskeletal: Reports no additional musculoskeletal complaints and Reports as per HPI Integumentary/Breasts: Skin/Breast: Reports system reviewed and no additional complaints, except as docu and Reports as per HPI Neurologic: Reports system reviewed and no additional complaints, except as documented and Reports as per HPI Psychiatric: Psychiatric: Reports no additional psychiatric complaints and Reports as per HPI [facility] Past Medical History Medical History (Updated 01/19/24 @ 17:05 by Amisha Izaguirre APRN) Abdominal pain Acute pain of both hips Acute pain of both knees Amputation toe Anemia Arthritis of knee, degenerative BMI greater than 40 Carpal tunnel syndrome, bilateral Cellulitis of right foot Charcot ankle Chicken pox Chronic abdominal pain Chronic diarrhea Chronic pain Colon cancer screening 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 2 diabetes mellitus Diarrhea Ear ache Essential hypertension Fibromyalgia Flat foot [pes planus] (acquired), left foot Gastroparesis Heartburn Hernia History of NE (myocardial infarction) Hives Hypertension Hypothyroidism Left knee DJD Left shoulder pain Left wrist pain 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 Lupus Microscopic colitis Non-pressure chronic ulcer of other part of unspecified foot limited to breakdown of skin Non-pressure chronic ulcer of right heel and midfoot with bone involvement without evidence of necrosis Numbness in both hands Obesity Other chronic pain Pain in left hand Peripheral arterial disease Pes planus of both feet Pneumonia Polyneuropathy Polyneuropathy 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 Posterior tibial tendon dysfunction, left Pre-op evaluation Rheumatoid arthritis Rheumatoid arthritis of unspecified site with involvement of other organs and systems Rib pain on right side Right knee DJD Right wrist pain Rotator cuff tendonitis Sepsis Sore throat Thrombocytopenia Type 2 diabetes mellitus Type 2 diabetes mellitus with complication UTI (urinary tract infection) Surgical History Surgical History Amputation of left great toe H/O foot surgery Poor historian- potential left posterior tibial tendon reconstruction Right foot charcot history? with surgery. History of carpal tunnel release History of hernia repair Hx of cholecystectomy Family History Family History Father Hyperlipidemia Lung cancer Diabetes mellitus Mother Diabetes mellitus Other Family history of allergic disorder Hypertension Social History Social History Social History: Patient quit tobacco in 1997 after smoking a pack a day for about 30 years. She denies drug use. She occasionally drinks alcohol. Still lives at home with her and brother. She is a full code. She nominated her daughter Elisha to be the individual make medical decisions for her if she is unable. Smoking packs per day: 1 Smoking cigarettes per day: 20.0 Years smoked: 29 Smoking pack-years: 29.00 Smoking status: Never smoker Tobacco type: cigarettes Smoking end date: 02/27/05 Alcohol intake: never Alcohol use details: occasionally Substance use: never Substance use type: does not use Do You Feel Safe in your Home?: Yes Lack of Transportation: No Lack of Food: Never True Current Housing: I Have Housing Concerned About Future Housing: No Difficulty Paying Gas/Electric Bills: No Difficulty Paying for Meds: No Currently Unemployed: No Education: High School Diploma/GED Difficulty w/ Childcare or Family Care: No Living arrangements: with family Gender identity (if verbalized by the patient): Female Spiritual care concerns: No Meds Home Medications and Allergies Home Medications Medication Instructions Recorded Confirmed Type cholecalciferol (vitamin D3) 125 5,000 unit PO DAILY 01/02/19 01/19/24 History mcg (5,000 unit) tablet multivitamin 1 tablet PO DAILY 01/02/19 01/19/24 History metoprolol succinate 25 mg 25 mg PO DAILY #90 tabs 05/14/19 01/19/24 Rx tablet,extended release 24 hr metformin 1,000 mg tablet 1,000 mg PO BID #180 tabs 04/14/20 01/19/24 Rx hydroxychloroquine 200 mg tablet 200 mg PO BID 05/06/20 01/19/24 History (Plaquenil) atorvastatin 40 mg tablet 40 mg PO HS 06/18/20 01/19/24 History rivaroxaban 2.5 mg tablet (Xarelto) 2.5 mg PO BID 09/08/21 01/19/24 History calcium carbonate 1,200 mg PO DAILY 12/01/21 01/19/24 History ferrous sulfate 325 mg (65 mg 325 mg PO BID 12/01/21 01/19/24 History iron) tablet duloxetine 20 mg capsule,delayed 20 mg PO DAILY 09/20/23 01/19/24 History release furosemide 20 mg tablet 20 mg PO DAILY 09/20/23 01/19/24 History aspirin 81 mg tablet,delayed 81 mg PO DAILY 10/17/23 01/19/24 History release esomeprazole magnesium 20 mg 20 mg PO DAILY 10/17/23 01/19/24 History capsule,delayed release (Nexium 24HR) fluticasone propionate 50 1 - 2 spray intranasal BID allergy 10/17/23 01/19/24 History mcg/actuation nasal symptoms spray,suspension (Allergy Relief (fluticasone)) glimepiride 4 mg tablet 4 mg PO DAILY 10/17/23 01/19/24 History insulin glargine U-300 conc 300 55 unit subcut HS 10/17/23 01/19/24 History unit/mL (1.5 mL) subcutaneous pen (Toujeo SoloStar U-300 Insulin) omega-3 1,050 [id number] 1 cap PO BID 10/17/23 01/19/24 History oil 1,200 mg capsule gabapentin 300 mg capsule 300 mg PO BID #180 caps 10/18/23 01/19/24 Rx albuterol sulfate 90 mcg/actuation 2 puff inhalation Q4-6H PRN 11/29/23 01/19/24 Rx aerosol inhaler shortness of breath #18 grams magnesium oxide 400 mg (241.3 mg 400 mg PO DAILY 12/12/23 01/19/24 History magnesium) tablet isoniazid 300 mg tablet 300 mg PO DAILY 01/08/24 01/19/24 History levothyroxine 100 mcg tablet 100 mcg PO DAILY #90 tabs 01/16/24 01/19/24 Rx (Synthroid) Allergies Allergy/AdvReac Type Severity Reaction Status Date / Time daptomycin Allergy Intermediate Hives Verified 01/18/24 23:36 lisinopril Allergy Intermediate Cough Verified 01/18/24 23:36 trimethoprim Allergy Intermediate Itching Verified 01/18/24 23:36 valsartan Allergy Intermediate Hives Verified 01/18/24 23:36 vancomycin Allergy Intermediate Hives Verified 01/18/24 23:36 povidone-iodine Allergy Mild Hives Verified 01/18/24 23:36 [From Betadine] sulfadimethoxine AdvReac Intermediate Vomiting Verified 01/18/24 23:36 Vital Signs Vital Signs - 24 hr 01/18/24 17:10 01/18/24 23:24 01/19/24 00:42 Temperature 98.0 F 98.4 F Pulse Rate 93 84 93 Respiratory Rate 20 18 17 Blood Pressure 151/75 H 102/45 L 111/50 L Pulse Oximetry 94 98 97 Oxygen Delivery 01/19/24 01:00 01/19/24 05:18 01/19/24 08:00 Temperature 97.3 F L 97.5 F L 97.3 F L Pulse Rate 94 84 90 Respiratory Rate 16 12 13 Blood Pressure 119/50 L 114/52 L 139/64 Pulse Oximetry 98 97 100 Oxygen Delivery 01/19/24 08:47 01/19/24 08:40 Temperature Pulse Rate 90 Respiratory Rate 13 Blood Pressure Pulse Oximetry 96 96 Oxygen Delivery Room Air Room Air Exam Narrative: General: In no acute distress, well nourished Head: atraumatic, no encephalopathy Eyes: PERRLA, sclera clear ENT: moist mucous membranes, nasal passages clear Neck: supple, no JVD, no adenopathy, trachea midline Cardiac: Normal S1 and S2. No murmur, gallops or friction rubs, peripheral pulses intact. Respiratory: Lungs clear to auscultation, no adventitious lung sounds, Current ly on room air Gastrointestinal: soft, non-distended, non-tender, normoactive bowel sounds. : voiding without difficulty. Extremities: moves all extremities well, no edema, good ROM, strength 5/5 Skin: right foot great toe red and warm to touch with some swelling, open dry wound on plantar side of foot open to air Neuro: Alert and oriented x4, cranial nerves intact, no neuro deficits. Psych: normal mood, normal affect, interactive H&P: Results Labs Labs: Short CBC 01/18/24 Range/Units 23:16 WBC 10.4 H (4.5-10.0) K/mm3 Hgb 8.9 L (12.0-15.0) g/dL Hct 28.4 L (37.0-47.0) % Plt Count 163 (150-375) k/mm3 BMP 01/18/24 23:16 Sodium 133 L Potassium 3.6 Chloride 102 Carbon Dioxide 25 BUN 34 H Creatinine 1.70 H Glucose 147 H Calcium 8.1 L Liver Function 01/18/24 Range/Units 23:16 Total Bilirubin 0.7 (0.2-1.3) mg/dL AST 37 H (14-36) U/L ALT 16 (6-35) U/L Alkaline Phosphatase 117 (38-126) U/L Albumin 3.4 L (3.5-5.1) g/dL Urine 01/18/24 Range/Units 20:38 Urine Color Yellow (Yellow) Urine Appearance Cloudy H (Clear) Urine pH 5.0 (5.0-9.0) Ur Specific [place] 1.018 (1.001-1.035) Urine Protein 3+ H (Negative) mg/dL Urine Glucose (UA) Trace H (Negative) mg/dL Imaging right foot x-ray: Radiologist's impression: EXAMINATION: XR foot RT min 3V DATE: 01/18/2024 22:06 INDICATION: Right great toe osteomyelitis. TECHNIQUE: 3 views of right foot were obtained. COMPARISON: Right foot radiographs 09/21/2023 FINDINGS: There is moderate hallux valgus. No fracture. There is a fusion procedure of first interphalangeal joint with lag screw. There are changes of f usion procedures involving talus, calcaneus, and cuboid with screws and plate. There is an old healed fracture deformity of neck of fifth metatarsal. There is mild osteoarthritis of some of the midfoot joints. IMPRESSION: 1. No evidence of osteomyelitis. Reviewed, dictated and finalized at location A. R POLLUTION CONTROL INSPECTOR Chest x-ray: Radiologist's impression: EXAMINATION: XR chest 1V DATE: 01/18/2024 22:06 INDICATION: Fever. TECHNIQUE: A single frontal view of the chest was obtained. COMPARISON: Chest single view 09/21/2023, chest CT 09/20/2023 FINDINGS: A calcified right lung nodule and calcified right hilar lymph nodes are consistent with old granulomatous disease. No pleural effusion or pneumothorax. The heart size is normal. IMPRESSION: 1. No acute cardiopulmonary disease. Reviewed, dictated and finalized at location A. R POLLUTION CONTROL INSPECTOR right knee x-ray: Radiologist's impression: EXAMINATION: XR knee RT 3V DATE: 01/18/2024 22:06 INDICATION: Fall. TECHNIQUE: 3 views of right knee were obtained. COMPARISON: Right knee radiographs 08/28/2023 FINDINGS: Alignment is normal. No fracture. There is moderate tricompartmental osteoarthritis. No knee effusion. IMPRESSION: 1. Moderate right knee osteoarthritis. Reviewed, dictated and finalized at location A. R POLLUTION CONTROL INSPECTOR Assessment and Plan Assessment and plan (1) Urinary tract infection: Code(s): N39.0 - Urinary tract infection, site not specified Status: Acute Assessment and Plan: * UA showing cloudy urine appearance, 3+ urine protein, trace glucose, 2+ urine blood, 2+ leukocytes, 21-50 urine RBC, greater than 100 urine WBC, 4+ urine bacteria * urine culture and blood culture obtained and pending * continue Zosyn (2) Diabetic foot: Code(s): E11.8 - Type 2 diabetes mellitus with unspecified complications Status: Acute Assessment and Plan: * right foot x-ray negative for osteomyelitis * continue Zosyn and doxycycline * wound care consulted * follows in [facility] (3) Hypothyroidism: Code(s): E03.9 - Hypothyroidism, unspecified Status: Chronic Assessment and Plan: * continue Synthroid (4) CHF (congestive heart failure): Code(s): I50.9 - Heart failure, unspecified Status: Acute Assessment and Plan: * continue Lasix and metoprolol (5) Type 2 diabetes mellitus: Code(s): E11.9 - Type 2 diabetes mellitus without complications Status: Acute Assessment and Plan: * Blood sugars ranging 95-116 * Hgb A1C 7.1 on 02/18/2020 * will recheck hemoglobin A1c * Accu checks AC/HS * high-dose SSI ordered * Lantus 20 units ordered for bedtime, normally takes 55 units at bedtime * hypoglycemic protocol in place * Diabetic diet ordered * Hold metformin and glimepiride (6) GERD (gastroesophageal reflux disease): Qualifiers: Esophagitis presence: without esophagitis Qualified Code(s): K21.9 - Gastro-esophageal reflux disease without esophagitis Code(s): K21.9 - Gastro-esophageal reflux disease without esophagitis Status: Chronic Assessment and Plan: * normally takes Nexium * will start Protonix (7) Current use of superintendent terminal anticoagulation: Code(s): Z79.01 - half-way (current) use of anticoagulants Status: Acute Assessment and Plan: * currently on Xarelto * patient and daughter are unsure why she is on a blood thinner however was prescribed by her md physician dermatologist and there is a family history of SVT, WPW, and other cardiac disorders that run in the family. She is on metoprolol as well so unsure if they are thinking she has paroxysmal atrial fibrillation. Quality VTE Prophylaxis VTE prophylaxis: pharmacologic ordered Hospitalist MIPS Advance Care Plan I have confirmed that the patient's Advanced Care Plan is present, code status is documented, or surrogate decision maker is listed in patient medical record.: Yes Medication Reconciliation I have utilized all available resources to obtain, update and review the patients current medications (includes all prescriptions, OTC, herbals, cannabis, and nutritional supplements).: Yes
[2024-01-19 16:24] LABS: Glucose Point of Care 295 mg/dl (65-105)
[2024-01-19 17:08] LABS: Hemoglobin A1C 8.1 % (<5.7)
[2024-01-19] MEDS: FERROUS SULFATE 325 MG TABLET DR BY MOUTH (17:18)
[2024-01-19] MEDS: HYDROXYCHLOROQUINE SULFATE 200 MG TABLET PO (17:18)
[2024-01-19] MEDS: GABAPENTIN 300 MG CAPSULE PO ×2 (17:18→20:22)
[2024-01-19] MEDS: INSULIN ASPART (*BKC) 100 UNITS/ML SUB-Q (17:32)
[2024-01-19] MEDS: ALBUTEROL SULFATE (*SP) AEROSOL 1 PUFF 2 PUFF INHALATION (17:50)
[2024-01-19 19:32] LABS: Glucose Point of Care 276 mg/dl (65-105)
[2024-01-19] MEDS: IPRATROPIUM 0.5 MG/ALBUTEROL SULFATE 2.5 MG AMPUL.NEB 3 ML INHALATION ×2 (19:52→20:05)
[2024-01-19] MEDS: ATORVASTATIN 40 MG TABLET PO (20:22)
[2024-01-19] MEDS: RIVAROXABAN 2.5 MG TABLET PO (20:23)
[2024-01-19] MEDS: INSULIN GLARGINE (*BKC) 100 UNITS/ML 16 UNITS SUB-Q (20:58)
[2024-01-19] MEDS: INSULIN ASPART (*BKC) 100 UNITS/ML 12 UNITS SUB-Q (21:26)
[2024-01-19] MEDS: ACETAMINOPHEN 325 MG TABLET 650 MG PO (21:26)
[2024-01-19] MEDS: FLUTICASONE PROPIONATE 0.05% NA SPR 16 GM BTL (*BKC) 1 SPRAY NASAL (21:33)
[2024-01-19 22:12] LABS: Glucose Point of Care 424 mg/dl (65-105)
[2024-01-19 22:16] LABS: Glucose Point of Care 403 mg/dl (65-105)
[2024-01-19] MEDS: WATER FOR IRRIGATION, STERILE 500 ML BOTTLE (22:27)
[2024-01-20] VITALS (13 sets, daily range): BP systolic 128–153; BP diastolic 47–63; PULSE 88–104; RESP 17–20; TEMP 36.6–37.8; O2SAT 93–98
[2024-01-20] MEDS: INSULIN ASPART (*BKC) 100 UNITS/ML 12 UNITS SUB-Q (00:05)
[2024-01-20] MEDS: SODIUM CHLORIDE 0.9% IV 1,000 ML 125 ML IV CONT (00:48)
[2024-01-20] MEDS: PIPERACILLIN/TAZ 2.25G/NS 50ML 2.25 GM/50 ML BAG IVPB ×5 (00:49→23:10)
[2024-01-20 01:24] LABS: Glucose Point of Care 294 mg/dl (65-105)
[2024-01-20] MEDS: IPRATROPIUM 0.5 MG/ALBUTEROL SULFATE 2.5 MG AMPUL.NEB 3 ML INHALATION ×4 (02:09→21:43)
[2024-01-20] MEDS: LEVOTHYROXINE SODIUM 100 MCG TABLET PO (05:33)
[2024-01-20 06:24] LABS: Basophils Percent Auto 0.5 % (0.2-1.2); Eosinophils Absolute Auto 0.2 K/mm3 (0-0.3); Eosinophils Percent Auto 2.7 % (0-4.4); Hematocrit 26.7 % (37.0-47.0); Hemoglobin 7.9 g/dL (12.0-15.0); Immature Granulocyte Absolute 0.04 K/mm3 (0.00-0.031); Immature Granulocyte Percent A 0.5 % (0-0.5); Lymphocytes Absolute Auto 1.45 K/mm3 (0.9-3.2); Lymphocytes Percent Auto 19.4 % (18.3-44.2); Mean Corpuscular HGB Conc 29.6 g/dl (32-36); Mean Corpuscular Hemoglobin 26.6 pg (26-34); Mean Corpuscular Volume 89.9 fl (80-100); Monocytes Absolute Auto 0.8 K/mm3 (0.1-0.6); Monocytes Percent Auto 10.7 % (2.6-8.5); Neutrophils Percent Auto 66.2 % (45.5-73.1); Platelet Count Result 142 k/mm3 (150-375); Red Blood Count 2.97 M/mm3 (4.2-5.4); Red Cell Distribution Width 15.5 % (11.5-14.5); White Blood Count 7.5 K/mm3 (4.5-10.0)
[2024-01-20 06:42] LABS: Alanine Aminotransferase 14 U/L (6-35); Alkaline Phosphatase 127 U/L (38-126); Anion Gap 6 mmol/L (4-12); Aspartate Amino Transferase 37 U/L (14-36); Bilirubin,Total 0.7 mg/dL (0.2-1.3); Blood Urea Nitrogen 30 mg/dL (7-17); Calcium 7.9 mg/dL (8.4-10.2); Carbon Dioxide 23 mmol/L (22-30); Chloride 106 mmol/L (98-107); Estimated CRCL calculation 29 ml/min; Estimated Glomerular Filt Rate 30; Glucose 219 mg/dL (65-110); Potassium 3.5 mmol/L (3.4-5.0); Sodium 135 mmol/L (137-145)
[2024-01-20 06:53] LABS: Hypochromasia 1+; Platelet Estimate Slightly Decreased (Adequate); Schistocytes None Seen
--- NOTE | 2024-01-20 07:53 | P.PNIM_ITS ---
Progress Note: A&P Assessment and Plan (1) Urinary tract infection: Code(s): N39.0 - Urinary tract infection, site not specified Status: Acute Assessment and Plan: * UA showing cloudy urine appearance, 3+ urine protein, trace glucose, 2+ urine blood, 2+ leukocytes, 21-50 urine RBC, greater than 100 urine WBC, 4+ urine bacteria * urine culture and blood culture obtained and pending * continue Zosyn * Gentle IV hydration (2) Diabetic foot: Code(s): E11.8 - Type 2 diabetes mellitus with unspecified complications Status: Acute Assessment and Plan: Improving * right foot x-ray negative for osteomyelitis * continue Zosyn and doxycycline * wound care consulted * follows in [facility] (3) Hypothyroidism: Code(s): E03.9 - Hypothyroidism, unspecified Status: Chronic Assessment and Plan: * continue Synthroid (4) CHF (congestive heart failure): Code(s): I50.9 - Heart failure, unspecified Status: Acute Assessment and Plan: Euvolemic * continue Lasix and metoprolol (5) Type 2 diabetes mellitus: Code(s): E11.9 - Type 2 diabetes mellitus without complications Status: Acute Assessment and Plan: * Blood sugars ranging 95-116 * Hgb A1C 7.1 on 02/18/2020 * 01/19/24 A1c 8.1 * Accu checks AC/HS * high-dose SSI ordered * Lantus 20 units ordered for bedtime, normally takes 55 units at bedtime * hypoglycemic protocol in place * Diabetic diet ordered * Hold metformin and glimepiride (6) GERD (gastroesophageal reflux disease): Qualifiers: Esophagitis presence: without esophagitis Qualified Code(s): K21.9 - Gastro-esophageal reflux disease without esophagitis Code(s): K21.9 - Gastro-esophageal reflux disease without esophagitis Status: Chronic Assessment and Plan: * normally takes Nexium * will start Protonix (7) Current use of shelter anticoagulation: Code(s): 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 She is on metoprolol as well so unsure if they are thinking she has paroxysmal atrial fibrillation. (8) TERESA (acute kidney injury): Code(s): N17.9 - Acute kidney failure, unspecified Status: Acute Assessment and Plan: Gentle IV hydration Avoid nephrotoxic medications BMP in the morning Time Spent With Patient Time with patient: Greater than 35 minutes Subjective Date/time seen: 01/20/24 07:53 Interval history: 73-year-old female with a significant past medical history of Diabetes, hypertension, hyper lipid, asthma, left big toe amputation who presented to the hospital with complaints of fever, chills, and cellulitis changes to her right foot without osteomyelitis, and UTI. Patient now with TERESA on CKD, holding gabapentin, avoid nephrotoxic medications, gentle hydration, will continue Lasix, vancomycin stopped yesterday. Patient has improvement in erythema and pain. Review of Systems Review of Systems: All systems reviewed & are unremarkable except as noted in HPI and below Constitutional: Constitutional: Reports as per HPI and Reports no additional constitutional complaints Eyes: Eyes: Reports as per HPI and Reports no additional eye complaints ENT: Reports system reviewed and no additional complaints, except as documented and Reports as per HPI Cardiovascular: Cardiovascular: Reports as per HPI and Reports no additional cardiovascular complaints Respiratory: Respiratory: Reports as per HPI and Reports no additional respiratory complaints Gastrointestinal: Gastrointestinal: Reports as per HPI and Reports no additional gastrointestinal complaints Genitourinary: Genitourinary: Reports no additional female genitourinary complaints and Reports as per HPI Musculoskeletal: Musculoskeletal: Reports no additional musculoskeletal complaints and Reports as per HPI Integumentary/Breasts: Skin/Breast: Reports system reviewed and no additional complaints, except as docu and Reports as per HPI Neurologic: Reports system reviewed and no additional complaints, except as documented and Reports as per HPI Psychiatric: Psychiatric: Reports no additional psychiatric complaints and Reports as per HPI Exam Narrative: General: In no acute distress, well nourished Head: atraumatic, no encephalopathy Eyes: PERRLA, sclera clear ENT: moist mucous membranes, nasal passages clear Neck: supple, no JVD, no adenopathy, trachea midline Cardiac: Normal S1 and S2. No murmur, gallops or friction rubs, peripheral pulses intact. Respiratory: Lungs clear to auscultation, no adventitious lung sounds, Currently on room air Gastrointestinal: soft, non-distended, non-tender, normoactive bowel sounds. : voiding without difficulty. Extremities: moves all extremities well, no edema, good ROM, strength 5/5 Skin: right foot great toe red and warm to touch with some swelling, open dry wound on plantar side of foot open to air Neuro: Alert and oriented x4, cranial nerves intact, no neuro deficits. Psych: normal mood, normal affect, interactive Objective Data Vital Signs Vital Signs: Vital Signs - 24 hr 01/19/24 08:00 01/19/24 08:47 01/19/24 08:40 Temperature 97.3 F L Pulse Rate 90 90 Respiratory Rate 13 13 Blood Pressure 139/64 Pulse Oximetry 100 96 96 Oxygen Delivery Room Air Room Air 01/19/24 15:49 01/19/24 19:56 01/19/24 20:04 Temperature 98.1 F Pulse Rate 90 100 92 Respiratory Rate 14 20 20 Blood Pressure 145/64 H Pulse Oximetry 98 Oxygen Delivery 01/19/24 21:26 01/19/24 21:56 01/19/24 22:13 Temperature 100 F H 99.9 F H Pulse Rate 104 H 89 Respiratory Rate 24 H 21 H Blood Pressure 134/72 Pulse Oximetry 95 96 Oxygen Delivery CPAP 01/20/24 02:10 01/20/24 02:21 01/20/24 05:30 Temperature 99.6 F Pulse Rate 96 92 96 Respiratory Rate 20 20 20 Blood Pressure 132/56 L Pulse Oximetry 96 Oxygen Delivery 01/19/24 22:20 01/20/24 06:45 01/20/24 07:00 Temperature 98.9 F Pulse Rate 89 96 Respiratory Rate 20 20 Blood Pressure Pulse Oximetry Oxygen Delivery Intake/Output Intake/Output: Intake & Output 01/17/24 01/18/24 01/19/24 01/20/24 23:59 23:59 23:59 23:59 Intake Total 4398 1537.5 Output Total 700 Balance 3698 1537.5 Meds/Results Medications: Active Medications Generic Name Dose Route Start Last Admin Trade Name Freq PRN Reason Stop Dose Admin Acetaminophen 650 mg 01/19/24 15:14 01/19/24 21:26 Acetaminophen 325 Mg Tablet PO 650 mg Q4H PRN Administration Mild Pain (1-3) or Fever Albuterol 2 puff 01/19/24 15:02 01/19/24 17:50 Albuterol Sulfate (*Sp) Aerosol 1 Puff INHALATION 2 puff Q4HRT PRN Administration shortness of breath Albuterol/Ipratropium 3 ml 01/19/24 18:12 01/20/24 06:44 Ipratropium 0.5 Mg/Albuterol Sulfate 2.5 Mg Ampul.Neb 3 Ml INHALATION 3 ml Q6HRT [facility] Administration Aspirin 81 mg 01/20/24 09:00 Aspirin 81 Mg Enteric Tablet PO DAILY [facility] Atorvastatin Calcium 40 mg 01/19/24 21:00 01/19/24 20:22 Atorvastatin 40 Mg Tablet PO 40 mg HS REGIS Administration Dextrose 12.5 gm 01/19/24 15:09 Dextrose 50% 25 Gm/50 Ml Syringe IV PUSH PRN PRN Hypoglycemia Protocol Doxycycline Hyclate 100 mg 01/19/24 13:30 01/19/24 20:22 Doxycycline Hyclate 100 Mg Tablet PO 100 mg Q12HR [facility] Administration Duloxetine HCl 20 mg 01/20/24 09:00 Duloxetine Hcl 20 Mg Capsule.Dr PO DAILY [facility] Ferrous Sulfate 325 mg 01/19/24 17:00 01/19/24 17:18 Ferrous Sulfate [address] BY MOUTH 325 mg BID [facility] Administration Fluticasone Propionate 1 spray 01/19/24 21:00 01/19/24 21:33 Fluticasone Propionate 0.05% Na Spr 16 Gm Btl (*Bkc) NASAL 1 spray Q12HR [facility] Administration Furosemide 20 mg 01/20/24 09:00 Furosemide 20 Mg Tablet PO DAILY [facility] Gabapentin 300 mg 01/19/24 17:00 01/19/24 20:22 Gabapentin 300 Mg Capsule PO 300 mg Q12HR [facility] Administration Glucagon 1 mg 01/19/24 15:09 Glucagon For Inj 1 Mg Vial IM PRN PRN Hypoglycemia Protocol Glucose 15 gm 01/19/24 15:09 Glucose Oral Gel 15 Gm Of Glucse In 37.5 Gm Tube PO PRN PRN Hypoglycemia Protocol Hydromorphone HCl 1 mg 01/19/24 01:46 01/19/24 20:22 Hydromorphone Hcl Inj (*Crx) 1 Mg/Ml Syr IV PUSH 1 mg Q3H PRN Administration Pain Rated 7-10 Hydroxychloroquine Sulfate 200 mg 01/19/24 17:00 01/19/24 17:18 Hydroxychloroquine Sulfate 200 Mg Tablet PO 200 mg BID [facility] Administration Sodium Chloride 1,000 mls @ 125 mls/hr 01/18/24 23:45 01/20/24 00:48 Normal Saline Iv IV CONT 125 mls/hr .Q8H [facility] Administration Piperacillin Sod/Tazobactam Sod 2.25 gm in 50 mls @ 100 mls/hr 01/19/24 06:00 01/20/24 05:32 Zosyn 2.25 Gm/Ns 50 Ml IVPB 100 mls/hr Q6HR [facility] Administration Dextrose 1,000 mls @ 100 mls/hr 01/19/24 15:09 Dextrose 5% 1,000 Ml IVPB PRN PRN Hypoglycemia Protocol Insulin Aspart 4 - 8 units 01/19/24 17:00 01/19/24 17:32 Insulin Aspart (*Bkc) 100 Units/Ml SUB-Q 5 units TIDWM [facility] Administration Protocol Insulin Aspart 2 - 4 units 01/19/24 21:00 01/20/24 05:27 Insulin Aspart (*Bkc) 100 Units/Ml SUB-Q Not Given HS [facility] Protocol Insulin Glargine 16 units 01/19/24 21:00 01/19/24 20:58 Insulin Glargine (*Bkc) 100 Units/Ml SUB-Q 16 units HS [facility] Administration Levothyroxine Sodium 100 mcg 01/20/24 06:30 01/20/24 05:33 Levothyroxine Sodium 100 Mcg Tablet PO 100 mcg DAILY@0630 [facility] Administration Metoprolol Succinate 25 mg 01/20/24 09:00 Metoprolol Succinate Ext Rel 25 Mg Tabcr PO DAILY [facility] Multivitamins Therapeutic 1 tablet 01/20/24 09:00 Multivitamins Therapeutic Tab (*Bkc) PO DAILY [facility] Ondansetron HCl 4 mg 01/19/24 15:14 Ondansetron Inj 4 Mg/2 Ml Vial IV PUSH Q6H PRN Nausea And Vomiting Pantoprazole Sodium 40 mg 01/20/24 09:00 Pantoprazole 40 Mg Tablet PO QAM [facility] Rivaroxaban 2.5 mg 01/19/24 21:00 01/19/24 20:23 Rivaroxaban 2.5 Mg Tablet PO 2.5 mg Q12HR [facility] Administration Vitamin D 5,000 units 01/20/24 09:00 Cholecalciferol 5,000 Units Tablet PO DAILY [facility] Radiology Results: ITS Impressions Foot X-Ray 01/18/24 22:10 IMPRESSION: 1. No evidence of osteomyelitis. Chest X-Ray 01/18/24 22:13 IMPRESSION: 1. No acute cardiopulmonary disease. Knee X-Ray 01/18/24 22:14 IMPRESSION: 1. Moderate right knee osteoarthritis. Labs Labs: Laboratory Results - last 24 hr 01/19/24 01/19/24 01/19/24 11:19 16:05 16:21 WBC RBC Hgb Hct MCV MCH MCHC RDW Plt Count MPV Immature Gran % (Auto) Neut % (Auto) Lymph % (Auto) Sac % (Auto) Eos % (Auto) Baso % (Auto) Lymph # (Auto) Sac # (Auto) Eos # (Auto) Baso # (Auto) Abs Immat Gran (auto) Absolute Neuts (auto) Absolute Nucleated RBC Nucleated RBC % Platelet Estimate Hypochromasia Schistocytes Sodium Potassium Chloride Carbon Dioxide Anion Gap BUN Creatinine Estim Creat Clear Calc Estimated GFR Glucose POC Capillary Glucose 116 H 295 H Hemoglobin A1c 8.1 H Calcium Total Bilirubin AST ALT Alkaline Phosphatase Total Protein Albumin TSH 1.710 01/19/24 01/19/24 01/19/24 17:30 20:39 22:09 WBC RBC Hgb Hct MCV MCH MCHC RDW Plt Count MPV Immature Gran % (Auto) Neut % (Auto) Lymph % (Auto) Sac % (Auto) Eos % (Auto) Baso % (Auto) Lymph # (Auto) Sac # (Auto) Eos # (Auto) Baso # (Auto) Abs Immat Gran (auto) Absolute Neuts (auto) Absolute Nucleated RBC Nucleated RBC % Platelet Estimate Hypochromasia Schistocytes Sodium Potassium Chloride Carbon Dioxide Anion Gap BUN Creatinine Estim Creat Clear Calc Estimated GFR Glucose POC Capillary Glucose 276 H 403 H 424 H Hemoglobin A1c Calcium Total Bilirubin AST ALT Alkaline Phosphatase Total Protein Albumin TSH 01/20/24 01/20/24 01:15 05:26 WBC 7.5 RBC 2.97 L Hgb 7.9 L Hct 26.7 L MCV 89.9 MCH 26.6 MCHC 29.6 L RDW 15.5 H Plt Count 142 L MPV 12.0 H Immature Gran % (Auto) 0.5 Neut % (Auto) 66.2 Lymph % (Auto) 19.4 Sac % (Auto) 10.7 H Eos % (Auto) 2.7 Baso % (Auto) 0.5 Lymph # (Auto) 1.45 Sac # (Auto) 0.8 H Eos # (Auto) 0.2 Baso # (Auto) 0.0 Abs Immat Gran (auto) 0.04 H Absolute Neuts (auto) 5.0 Absolute Nucleated RBC 0.000 Nucleated RBC % 0.0 Platelet Estimate Slightly decreased Hypochromasia 1+ Schistocytes None seen Sodium 135 L Potassium 3.5 Chloride 106 Carbon Dioxide 23 Anion Gap 6 BUN 30 H Creatinine 1.70 H Estim Creat Clear Calc 29 Estimated GFR 30 L Glucose 219 H POC Capillary Glucose 294 H Hemoglobin A1c Calcium 7.9 L Total Bilirubin 0.7 AST 37 H ALT 14 Alkaline Phosphatase 127 H Total Protein 6.0 L Albumin 3.0 L TSH Quality VTE Prophylaxis VTE prophylaxis: pharmacologic ordered Hospitalist MIPS Advance Care Plan I have confirmed that the patient's Advanced Care Plan is present, code status is documented, or surrogate decision maker is listed in patient medical record.: Yes Medication Reconciliation I have utilized all available resources to obtain, update and review the patients current medications (includes all prescriptions, OTC, herbals, cannabis, and nutritional supplements).: Yes
[2024-01-20 08:07] LABS: Glucose Point of Care 190 mg/dl (65-105)
[2024-01-20] MEDS: DOCUSATE SODIUM 100 MG CAPSULE PO (08:43)
[2024-01-20] MEDS: FLUTICASONE PROPIONATE 0.05% NA SPR 16 GM BTL (*BKC) 1 SPRAY NASAL ×2 (08:44→21:27)
[2024-01-20] MEDS: HYDROmorphone HCL INJ (*CRX) 1 MG/ML SYR IV PUSH ×2 (08:45→15:25)
[2024-01-20] MEDS: RIVAROXABAN 2.5 MG TABLET PO ×2 (08:48→21:27)
[2024-01-20] MEDS: DULoxetine HCL 20 MG CAPSULE.DR PO (08:48)
[2024-01-20] MEDS: HYDROXYCHLOROQUINE SULFATE 200 MG TABLET PO ×2 (08:48→16:45)
[2024-01-20] MEDS: METOPROLOL SUCCINATE EXT REL 25 MG TABCR PO (08:49)
[2024-01-20] MEDS: FUROSEMIDE 20 MG TABLET PO (08:49)
[2024-01-20] MEDS: FERROUS SULFATE 325 MG TABLET DR BY MOUTH ×2 (08:49→16:45)
[2024-01-20] MEDS: MULTIVITAMINS THERAPEUTIC TAB (*BKC) 1 TABLET PO (08:49)
[2024-01-20] MEDS: PANTOPRAZOLE 40 MG TABLET PO (08:49)
[2024-01-20] MEDS: CHOLECALCIFEROL 5,000 UNITS TABLET 5000 UNITS PO (08:49)
[2024-01-20] MEDS: DOXYCYCLINE HYCLATE 100 MG TABLET PO ×2 (08:49→21:27)
[2024-01-20] MEDS: INSULIN ASPART (*BKC) 100 UNITS/ML SUB-Q ×3 (11:29→21:31)
[2024-01-20 11:35] LABS: Glucose Point of Care 234 mg/dl (65-105)
[2024-01-20] MEDS: SODIUM CHLORIDE 0.9% IV 1,000 ML 100 ML IV CONT (13:23)
[2024-01-20] MEDS: ACETAMINOPHEN 325 MG TABLET 650 MG PO (15:23)
[2024-01-20 16:31] LABS: Glucose Point of Care 248 mg/dl (65-105)
[2024-01-20 21:25] LABS: Glucose Point of Care 324 mg/dl (65-105)
[2024-01-20] MEDS: ATORVASTATIN 40 MG TABLET PO (21:27)
[2024-01-20] MEDS: INSULIN GLARGINE (*BKC) 100 UNITS/ML 16 UNITS SUB-Q (21:27)
[2024-01-21] VITALS (13 sets, daily range): BP systolic 128–154; BP diastolic 46–79; PULSE 68–108; RESP 16–20; TEMP 36.6–37.3; O2SAT 94–98
[2024-01-21] MEDS: HYDROmorphone HCL INJ (*CRX) 1 MG/ML SYR IV PUSH ×2 (02:00→10:15)
[2024-01-21] MEDS: IPRATROPIUM 0.5 MG/ALBUTEROL SULFATE 2.5 MG AMPUL.NEB 3 ML INHALATION ×4 (03:00→20:12)
[2024-01-21 03:41] LABS: Glucose Point of Care 229 mg/dl (65-105)
[2024-01-21] MEDS: LEVOTHYROXINE SODIUM 100 MCG TABLET PO (05:18)
[2024-01-21] MEDS: PIPERACILLIN/TAZ 2.25G/NS 50ML 2.25 GM/50 ML BAG IVPB ×4 (05:18→23:28)
[2024-01-21] MEDS: SODIUM CHLORIDE 0.9% IV 1,000 ML 100 ML IV CONT (05:18)
[2024-01-21 07:01] LABS: Basophils Percent Auto 0.5 % (0.2-1.2); Eosinophils Absolute Auto 0.3 K/mm3 (0-0.3); Eosinophils Percent Auto 3.2 % (0-4.4); Hematocrit 25.9 % (37.0-47.0); Immature Granulocyte Absolute 0.04 K/mm3 (0.00-0.031); Immature Granulocyte Percent A 0.5 % (0-0.5); Lymphocytes Absolute Auto 1.36 K/mm3 (0.9-3.2); Lymphocytes Percent Auto 16.9 % (18.3-44.2); Mean Corpuscular HGB Conc 30.9 g/dl (32-36); Mean Corpuscular Hemoglobin 27.2 pg (26-34); Mean Corpuscular Volume 88.1 fl (80-100); Mean Platelet Volume 11.8 fl (7.4-10.4); Monocytes Absolute Auto 0.7 K/mm3 (0.1-0.6); Monocytes Percent Auto 8.6 % (2.6-8.5); Neutrophils Absolute Auto 5.7 K/mm3 (1.3-6.7); Neutrophils Percent Auto 70.3 % (45.5-73.1); Platelet Count Result 174 k/mm3 (150-375); Red Blood Count 2.94 M/mm3 (4.2-5.4); Red Cell Distribution Width 15.4 % (11.5-14.5); White Blood Count 8.1 K/mm3 (4.5-10.0)
[2024-01-21 07:11] LABS: Alanine Aminotransferase 20 U/L (6-35); Albumin Level 3.3 g/dL (3.5-5.1); Alkaline Phosphatase 161 U/L (38-126); Anion Gap 7 mmol/L (4-12); Aspartate Amino Transferase 51 U/L (14-36); Bilirubin,Total 0.8 mg/dL (0.2-1.3); Blood Urea Nitrogen 22 mg/dL (7-17); Calcium 8.2 mg/dL (8.4-10.2); Carbon Dioxide 21 mmol/L (22-30); Chloride 106 mmol/L (98-107); Estimated CRCL calculation 35 ml/min; Estimated Glomerular Filt Rate 34; Glucose 194 mg/dL (65-110); Potassium 3.6 mmol/L (3.4-5.0); Sodium 134 mmol/L (137-145)
--- NOTE | 2024-01-21 07:30 | P.PNIM_ITS ---
Progress Note: A&P Assessment and Plan (1) Urinary tract infection: Code(s): N39.0 - Urinary tract infection, site not specified Status: Acute Assessment and Plan: * UA showing cloudy urine appearance, 3+ urine protein, trace glucose, 2+ urine blood, 2+ leukocytes, 21-50 urine RBC, greater than 100 urine WBC, 4+ urine bacteria * urine culture and blood culture obtained and pending * continue Zosyn * Gentle IV hydration (2) Diabetic foot: Code(s): E11.8 - Type 2 diabetes mellitus with unspecified complications Status: Acute Assessment and Plan: Worsening- Now with abscess * right foot x-ray negative for osteomyelitis * continue Zosyn and doxycycline * wound care consulted * follows in [facility] * Surgery service was consulted for possible I and D and cultures * Blood cultures no growth to date (3) Hypothyroidism: Code(s): E03.9 - Hypothyroidism, unspecified Status: Chronic Assessment and Plan: * continue Synthroid (4) CHF (congestive heart failure): Code(s): I50.9 - Heart failure, unspecified Status: Acute Assessment and Plan: Euvolemic * continue Lasix and metoprolol (5) Type 2 diabetes mellitus: Code(s): E11.9 - Type 2 diabetes mellitus without complications Status: Acute Assessment and Plan: * Blood sugars ranging 95-116 * Hgb A1C 7.1 on 02/18/2020 * 01/19/24 A1c 8.1 * Accu checks AC/HS * high-dose SSI ordered * Lantus 20 units ordered for bedtime, normally takes 55 units at bedtime * hypoglycemic protocol in place * Diabetic diet ordered * Hold metformin and glimepiride (6) GERD (gastroesophageal reflux disease): Qualifiers: Esophagitis presence: without esophagitis Qualified Code(s): K21.9 - Gastro-esophageal reflux disease without esophagitis Code(s): K21.9 - Gastro-esophageal reflux disease without esophagitis Status: Chronic Assessment and Plan: * normally takes Nexium * will start Protonix (7) Current use of detention anticoagulation: Code(s): Z79.01 - longterm (current) use of anticoagulants Status: Acute Assessment and Plan: * currently on Xarelto * patient and daughter are unsure why she is on a blood thinner however was prescribed by her [facility] and there is a family history of SVT, WPW, and other cardiac disorders that run in the family. She is on metoprolol as well so unsure if they are thinking she has paroxysmal atrial fibrillation. (8) TERESA (acute kidney injury): Code(s): N17.9 - Acute kidney failure, unspecified Status: Acute Assessment and Plan: Gentle IV hydration, IV fluids decreased today hopefully will DC tomorrow Avoid nephrotoxic medications BMP in the morning (9) Abnormal liver enzymes: Code(s): R74.8 - Abnormal levels of other serum enzymes Status: Acute Assessment and Plan: Repeat CMP tomorrow Time Spent With Patient Time with patient: Greater than 35 minutes Subjective Date/time seen: 01/21/24 07:30 Interval history: 73-year-old female with a significant past medical history of Diabetes, hypertension, hyper lipid, asthma, left big toe amputation who presented to the hospital with complaints of fever, chills, and cellulitis changes to her right foot without osteomyelitis, and UTI. Patient now with TERESA on CKD, holding gabapentin, avoid nephrotoxic medications, gentle hydration, will continue Lasix, vancomycin stopped yesterday. Some improvement in creatinine on a.m. labs, IV fluids decreased Patient's toe is now draining what looks like purulence fluid, surgery consulted for possible ID and cultures, patient complains of increased pain and swelling Review of Systems Review of Systems: All systems reviewed & are unremarkable except as noted in HPI and below Constitutional: Constitutional: Reports as per HPI and Reports no additional constitutional complaints Eyes: Eyes: Reports as per HPI and Reports no additional eye complaints ENT: Reports system reviewed and no additional complaints, except as documented and Reports as per HPI Cardiovascular: Cardiovascular: Reports as per HPI and Reports no additional cardiovascular complaints Respiratory: Respiratory: Reports as per HPI and Reports no additional respiratory complaints Gastrointestinal: Gastrointestinal: Reports as per HPI and Reports no additional gastrointestinal complaints Genitourinary: Genitourinary: Reports no additional female genitourinary complaints and Reports as per HPI Musculoskeletal: Musculoskeletal: Reports no additional musculoskeletal complaints and Reports as per HPI Integumentary/Breasts: Skin/Breast: Reports system reviewed and no additional complaints, except as docu and Reports as per HPI Neurologic: Reports system reviewed and no additional complaints, except as documented and Reports as per HPI Psychiatric: Psychiatric: Reports no additional psychiatric complaints and Reports as per HPI Exam Narrative: General: In no acute distress, well nourished Head: atraumatic, no encephalopathy Eyes: PERRLA, sclera clear ENT: moist mucous membranes, nasal passages clear Neck: supple, no JVD, no adenopathy, trachea midline Cardiac: Normal S1 and S2. No murmur, gallops or friction rubs, peripheral pulses intact. Respiratory: Lungs clear to auscultation, no adventitious lung sounds, Currently on room air Gastrointestinal: soft, non-distended, non-tender, normoactive bowel sounds. : voiding without difficulty. Extremities: moves all extremities well, no edema, good ROM, strength 5/5 Skin: right foot great toe red and warm to touch with some swelling, open dry wound on plantar side of foot open to air Neuro: Alert and oriented x4, cranial nerves intact, no neuro deficits. Psych: normal mood, normal affect, interactive Objective Data Vital Signs Vital Signs: Vital Signs - 24 hr 01/20/24 08:45 01/20/24 14:25 01/20/24 14:25 Temperature Pulse Rate 96 Respiratory Rate 20 Blood Pressure Pulse Oximetry 94 Oxygen Delivery CPAP Room Air 01/20/24 14:36 01/20/24 15:23 01/20/24 16:01 Temperature 100.1 F H 98.6 F Pulse Rate 92 104 H Respiratory Rate 20 20 Blood Pressure 128/47 L Pulse Oximetry 93 Oxygen Delivery 01/20/24 16:23 01/20/24 21:30 01/20/24 21:45 Temperature 99.2 F 97.9 F Pulse Rate 97 88 Respiratory Rate 18 20 Blood Pressure 153/63 H Pulse Oximetry 98 Oxygen Delivery 01/20/24 20:00 01/20/24 21:50 01/21/24 03:00 Temperature Pulse Rate 94 Respiratory Rate 17 20 Blood Pressure Pulse Oximetry Oxygen Delivery Room Air CPAP 01/21/24 03:10 01/21/24 06:11 Temperature 98.2 F Pulse Rate 92 96 Respiratory Rate 20 18 Blood Pressure 128/46 L Pulse Oximetry 96 Oxygen Delivery Intake/Output Intake/Output: Intake & Output 01/18/24 01/19/24 01/20/24 01/21/24 23:59 23:59 23:59 23:59 Intake Total 4398 4817.5 200 Output Total 700 Balance 3698 4817.5 200 Meds/Results Medications: Active Medications Generic Name Dose Route Start Last Admin Trade Name Freq PRN Reason Stop Dose Admin Acetaminophen 650 mg 01/20/24 07:56 01/20/24 15:23 Acetaminophen 325 Mg Tablet PO 650 mg Q4H PRN Administration Mild Pain (1-3) or Fever Albuterol 2 puff 01/19/24 15:02 01/19/24 17:50 Albuterol Sulfate (*Sp) Aerosol 1 Puff INHALATION 2 puff Q4HRT PRN Administration shortness of breath Albuterol/Ipratropium 3 ml 01/19/24 18:12 01/21/24 03:00 Ipratropium 0.5 Mg/Albuterol Sulfate 2.5 Mg Ampul.Neb 3 Ml INHALATION 3 ml Q6HRT REGIS Administration Aspirin 81 mg 01/20/24 09:00 Aspirin 81 Mg Enteric Tablet PO DAILY REGIS Atorvastatin Calcium 40 mg 01/19/24 21:00 01/20/24 21:27 Atorvastatin 40 Mg Tablet PO 40 mg HS REGIS Administration Dextrose 12.5 gm 01/19/24 15:09 Dextrose 50% 25 Gm/50 Ml Syringe IV PUSH PRN PRN Hypoglycemia Protocol Docusate Sodium 100 mg 01/20/24 09:00 01/20/24 08:43 Docusate Sodium 100 Mg Capsule PO 100 mg DAILY REGIS Administration Doxycycline Hyclate 100 mg 01/19/24 13:30 01/20/24 21:27 Doxycycline Hyclate 100 Mg Tablet PO 100 mg Q12HR REGIS Administration Duloxetine HCl 20 mg 01/20/24 09:00 01/20/24 08:48 Duloxetine Hcl 20 Mg Capsule.Dr PO 20 mg DAILY REGIS Administration Ferrous Sulfate 325 mg 01/19/24 17:00 01/20/24 16:45 Ferrous Sulfate [address] BY MOUTH 325 mg BID REGIS Administration Fluticasone Propionate 1 spray 01/19/24 21:00 01/20/24 21:27 Fluticasone Propionate 0.05% Na Spr 16 Gm Btl (*Bkc) NASAL 1 spray Q12HR REGIS Administration Furosemide 20 mg 01/20/24 09:00 01/20/24 08:49 Furosemide 20 Mg Tablet PO 20 mg DAILY REGIS Administration Gabapentin 300 mg 01/19/24 17:00 01/19/24 20:22 Gabapentin 300 Mg Capsule PO 300 mg Q12HR REGIS Administration Glucagon 1 mg 01/19/24 15:09 Glucagon For Inj 1 Mg Vial IM PRN PRN Hypoglycemia Protocol Glucose 15 gm 01/19/24 15:09 Glucose Oral Gel 15 Gm Of Glucse In 37.5 Gm Tube PO PRN PRN Hypoglycemia Protocol Hydromorphone HCl 1 mg 01/19/24 01:46 01/21/24 02:00 Hydromorphone Hcl Inj (*Crx) 1 Mg/Ml Syr IV PUSH 1 mg Q3H PRN Administration Pain Rated 7-10 Hydroxychloroquine Sulfate 200 mg 01/19/24 17:00 01/20/24 16:45 Hydroxychloroquine Sulfate 200 Mg Tablet PO 200 mg BID REGIS Administration Sodium Chloride 1,000 mls @ 100 mls/hr 01/18/24 23:45 01/21/24 05:18 Normal Saline Iv IV CONT 100 mls/hr .Q10H REGIS Administration Piperacillin Sod/Tazobactam Sod 2.25 gm in 50 mls @ 100 mls/hr 01/19/24 06:00 01/21/24 05:18 Zosyn 2.25 Gm/Ns 50 Ml IVPB 100 mls/hr Q6HR REGIS Administration Dextrose 1,000 mls @ 100 mls/hr 01/19/24 15:09 Dextrose 5% 1,000 Ml IVPB PRN PRN Hypoglycemia Protocol Insulin Aspart 4 - 8 units 01/19/24 17:00 01/20/24 16:35 Insulin Aspart (*Bkc) 100 Units/Ml SUB-Q 4 units TIDWM REGIS Administration Protocol Insulin Aspart 2 - 4 units 01/19/24 21:00 01/20/24 21:31 Insulin Aspart (*Bkc) 100 Units/Ml SUB-Q 3 units HS REGIS Administration Protocol Insulin Glargine 16 units 01/19/24 21:00 01/20/24 21:27 Insulin Glargine (*Bkc) 100 Units/Ml SUB-Q 16 units HS REGIS Administration Levothyroxine Sodium 100 mcg 01/20/24 06:30 01/21/24 05:18 Levothyroxine Sodium 100 Mcg Tablet PO 100 mcg DAILY@0630 REGIS Administration Metoprolol Succinate 25 mg 01/20/24 09:00 01/20/24 08:49 Metoprolol Succinate Ext Rel 25 Mg Tabcr PO 25 mg DAILY REGIS Administration Multivitamins Therapeutic 1 tablet 01/20/24 09:00 01/20/24 08:49 Multivitamins Therapeutic Tab (*Bkc) PO 1 tablet DAILY REGIS Administration Ondansetron HCl 4 mg 01/19/24 15:14 Ondansetron Inj 4 Mg/2 Ml Vial IV PUSH Q6H PRN Nausea And Vomiting Pantoprazole Sodium 40 mg 01/20/24 09:00 01/20/24 08:49 Pantoprazole 40 Mg Tablet PO 40 mg QAM REGIS Administration Rivaroxaban 2.5 mg 01/19/24 21:00 01/20/24 21:27 Rivaroxaban 2.5 Mg Tablet PO 2.5 mg Q12HR REGIS Administration Vitamin D 5,000 units 01/20/24 09:00 01/20/24 08:49 Cholecalciferol 5,000 Units Tablet PO 5,000 units DAILY REGIS Administration Radiology Results: ITS Impressions Foot X-Ray 01/18/24 22:10 IMPRESSION: 1. No evidence of osteomyelitis. Chest X-Ray 01/18/24 22:13 IMPRESSION: 1. No acute cardiopulmonary disease. Knee X-Ray 01/18/24 22:14 IMPRESSION: 1. Moderate right knee osteoarthritis. Labs Labs: Laboratory Results - last 24 hr 01/20/24 01/20/24 01/20/24 08:04 11:25 16:02 WBC RBC Hgb Hct MCV MCH MCHC RDW Plt Count MPV Immature Gran % (Auto) Neut % (Auto) Lymph % (Auto) [place] % (Auto) Eos % (Auto) Baso % (Auto) Lymph # (Auto) [place] # (Auto) Eos # (Auto) Baso # (Auto) Abs Immat Gran (auto) Absolute Neuts (auto) Absolute Nucleated RBC Nucleated RBC % Sodium Potassium Chloride Carbon Dioxide Anion Gap BUN Creatinine Estim Creat Clear Calc Estimated GFR Glucose POC Capillary Glucose 190 H 234 H 248 H Calcium Total Bilirubin AST ALT Alkaline Phosphatase Total Protein Albumin 01/20/24 01/21/24 01/21/24 21:13 03:33 06:03 WBC 8.1 RBC 2.94 L Hgb 8.0 L Hct 25.9 L MCV 88.1 MCH 27.2 MCHC 30.9 L RDW 15.4 H Plt Count 174 MPV 11.8 H Immature Gran % (Auto) 0.5 Neut % (Auto) 70.3 Lymph % (Auto) 16.9 L [place] % (Auto) 8.6 H Eos % (Auto) 3.2 Baso % (Auto) 0.5 Lymph # (Auto) 1.36 [place] # (Auto) 0.7 H Eos # (Auto) 0.3 Baso # (Auto) 0.0 Abs Immat Gran (auto) 0.04 H Absolute Neuts (auto) 5.7 Absolute Nucleated RBC 0.000 Nucleated RBC % 0.0 Sodium 134 L Potassium 3.6 Chloride 106 Carbon Dioxide 21 L Anion Gap 7 BUN 22 H Creatinine 1.50 H Estim Creat Clear Calc 35 Estimated GFR 34 L Glucose 194 H POC Capillary Glucose 324 H 229 H Calcium 8.2 L Total Bilirubin 0.8 AST 51 H ALT 20 Alkaline Phosphatase 161 H Total Protein 7.0 Albumin 3.3 L Quality VTE Prophylaxis VTE prophylaxis: pharmacologic ordered
[2024-01-21 07:40] LABS: Glucose Point of Care 156 mg/dl (65-105)
[2024-01-21] MEDS: DULoxetine HCL 20 MG CAPSULE.DR PO (08:26)
[2024-01-21] MEDS: MULTIVITAMINS THERAPEUTIC TAB (*BKC) 1 TABLET PO (08:26)
[2024-01-21] MEDS: FERROUS SULFATE 325 MG TABLET DR BY MOUTH ×2 (08:26→16:35)
[2024-01-21] MEDS: RIVAROXABAN 2.5 MG TABLET PO (08:26)
[2024-01-21] MEDS: METOPROLOL SUCCINATE EXT REL 25 MG TABCR PO (08:26)
[2024-01-21] MEDS: PANTOPRAZOLE 40 MG TABLET PO (08:26)
[2024-01-21] MEDS: FUROSEMIDE 20 MG TABLET PO (08:26)
[2024-01-21] MEDS: DOXYCYCLINE HYCLATE 100 MG TABLET PO ×2 (08:26→21:32)
[2024-01-21] MEDS: HYDROXYCHLOROQUINE SULFATE 200 MG TABLET PO ×2 (08:26→16:35)
--- NOTE | 2024-01-21 11:30 | PC.NURSE ---
RN assumed care
[2024-01-21 11:34] LABS: Glucose Point of Care 314 mg/dl (65-105)
[2024-01-21] MEDS: INSULIN ASPART (*BKC) 100 UNITS/ML SUB-Q ×3 (12:56→21:32)
--- NOTE | 2024-01-21 13:17 | P.CONGS_ITS ---
Assessment and Plan Assessment and plan (1) Cellulitis of great toe of right foot: Code(s): L03.031 - Cellulitis of right toe Status: Acute Assessment and Plan: * I reviewed the imaging. Patient has a wound of her right great toe and there is hardware in the distal phalanx. Due to the risk of potential hardware infection, I would recommend orthopedic or podiatry consult. This will not be an infection that I feel comfortable treating myself. Will sign off. 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 Patient came in through the emergency department last night with complaints of worsening problems with the wound. She [facility] for treatment for the past 4 months. 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 An x-ray was obtained in the emergency department and she has hardware in the right great toe from a previous surgery. She is also diabetic and has a prior history of left great toe amputation. Her hemoglobin A1c on 01/19/2024 was 8.1%. Blood sugars have been elevated since admission ranging from mid 100s to 424. She states that the wound on her right great toe was an ulcer that they were treating with topical treatments. It has gotten worse over the past several days. She now has more swelling to her entire great toe. Review of Systems Review of Systems: All systems reviewed & are unremarkable except as noted in HPI and below Eyes: Eyes: Denies change in vision ENT: Denies hearing loss, Denies neck pain and Denies sore throat Cardiovascular: Cardiovascular: Denies chest pain and Denies dyspnea Respiratory: Respiratory: Denies cough, Denies dyspnea and Denies wheezing Genitourinary: Genitourinary: Denies hematuria and Denies dysuria Musculoskeletal: Musculoskeletal: Denies arthralgias, Denies joint swelling and Denies neck pain Allergic/Immunologic: Allergic/Immunologic: Denies wheezing [facility] Past Medical History Medical History (Updated 01/21/24 @ 13:25 by Francisco Leo DO) Abdominal pain Acute pain of both hips Acute pain of both knees Amputation toe Anemia Arthritis of knee, degenerative BMI greater than 40 Carpal tunnel syndrome, bilateral Cellulitis of right foot Charcot ankle Chicken pox Chronic abdominal pain Chronic diarrhea Chronic pain Colon cancer screening 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 2 diabetes mellitus Diarrhea Ear ache Essential hypertension Fibromyalgia Flat foot [pes planus] (acquired), left foot Gastroparesis Heartburn Hernia History of KS (myocardial infarction) Hives Hypertension Hypothyroidism Left knee DJD Left shoulder pain Left wrist pain longterm (current) use of insulin Lupus Microscopic colitis Non-pressure chronic ulcer of other part of unspecified foot limited to breakdown of skin Non-pressure chronic ulcer of right heel and midfoot with bone involvement without evidence of necrosis Numbness in both hands Obesity Other chronic pain Pain in left hand Peripheral arterial disease Pes planus of both feet Pneumonia Polyneuropathy Polyneuropathy 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 Posterior tibial tendon dysfunction, left Pre-op evaluation Rheumatoid arthritis Rheumatoid arthritis of unspecified site with involvement of other organs and systems Rib pain on right side Right knee DJD Right wrist pain Rotator cuff tendonitis Sepsis Sore throat Thrombocytopenia Type 2 diabetes mellitus Type 2 diabetes mellitus with complication UTI (urinary tract infection) Surgical History Surgical History Amputation of left great toe H/O foot surgery Poor historian- potential left posterior tibial tendon reconstruction Right foot charcot history? with surgery. History of carpal tunnel release History of hernia repair Hx of cholecystectomy Family History Family History Father Hyperlipidemia Lung cancer Diabetes mellitus Mother Diabetes mellitus Other Family history of allergic disorder Hypertension Social History Social History Social History: Patient quit tobacco in 1997 after smoking a pack a day for a bout 30 years. She denies drug use. She occasionally drinks alcohol. Still lives at home with her and brother. She is a full code. She nominated her daughter Elisha to be the individual make medical decisions for her if she is unable. Smoking packs per day: 1 Smoking cigarettes per day: 20.0 Years smoked: 29 Smoking pack-years: 29.00 Smoking status: Never smoker Tobacco type: cigarettes Smoking end date: 02/27/05 Alcohol intake: never Alcohol use details: occasionally Substance use: never Substance use type: does not use Do You Feel Safe in your Home?: Yes Lack of Transportation: No Lack of Food: Never True Current Housing: I Have Housing Concerned About Future Housing: No Difficulty Paying Gas/Electric Bills: No Difficulty Paying for Meds: No Currently Unemployed: No Education: High School Diploma/GED Difficulty w/ Childcare or Family Care: No Living arrangements: with family Gender identity (if verbalized by the patient): Female Spiritual care concerns: No Meds Home Medications and Allergies Home Medications Medication Instructions Recorded Confirmed Type cholecalciferol (vitamin D3) 125 5,000 unit PO DAILY 01/02/19 01/19/24 History mcg (5,000 unit) tablet multivitamin 1 tablet PO DAILY 01/02/19 01/19/24 History metoprolol succinate 25 mg 25 mg PO DAILY #90 tabs 05/14/19 01/19/24 Rx tablet,extended release 24 hr metformin 1,000 mg tablet 1,000 mg PO BID #180 tabs 04/14/20 01/19/24 Rx hydroxychloroquine 200 mg tablet 200 mg PO BID 05/06/20 01/19/24 History (Plaquenil) atorvastatin 40 mg tablet 40 mg PO HS 06/18/20 01/19/24 History rivaroxaban 2.5 mg tablet (Xarelto) 2.5 mg PO BID 09/08/21 01/19/24 History calcium carbonate 1,200 mg PO DAILY 12/01/21 01/19/24 History ferrous sulfate 325 mg (65 mg 325 mg PO BID 12/01/21 01/19/24 History iron) tablet duloxetine 20 mg capsule,delayed 20 mg PO DAILY 09/20/23 01/19/24 History release furosemide 20 mg tablet 20 mg PO DAILY 09/20/23 01/19/24 History aspirin 81 mg tablet,delayed 81 mg PO DAILY 10/17/23 01/19/24 History release esomeprazole magnesium 20 mg 20 mg PO DAILY 10/17/23 01/19/24 History capsule,delayed release (Nexium 24HR) fluticasone propionate 50 1 - 2 spray intranasal BID allergy 10/17/23 01/19/24 History mcg/actuation nasal symptoms spray,suspension (Allergy Relief (fluticasone)) glimepiride 4 mg tablet 4 mg PO DAILY 10/17/23 01/19/24 History insulin glargine U-300 conc 300 55 unit subcut HS 10/17/23 01/19/24 History unit/mL (1.5 mL) subcutaneous pen (Toujeo SoloStar U-300 Insulin) omega-3 1,050 [id number] 1 cap PO BID 10/17/23 01/19/24 History oil 1,200 mg capsule gabapentin 300 mg capsule 300 mg PO BID #180 caps 10/18/23 01/19/24 Rx albuterol sulfate 90 mcg/actuation 2 puff inhalation Q4-6H PRN 11/29/23 01/19/24 Rx aerosol inhaler shortness of breath #18 grams magnesium oxide 400 mg (241.3 mg 400 mg PO DAILY 12/12/23 01/19/24 History magnesium) tablet isoniazid 300 mg tablet 300 mg PO DAILY 01/08/24 01/19/24 History levothyroxine 100 mcg tablet 100 mcg PO DAILY #90 tabs 01/16/24 01/19/24 Rx (Synthroid) Allergies Allergy/AdvReac Type Severity Reaction Status Date / Time daptomycin Allergy Intermediate Hives Verified 01/18/24 23:36 lisinopril Allergy Intermediate Cough Verified 01/18/24 23:36 trimethoprim Allergy Intermediate Itching Verified 01/18/24 23:36 valsartan Allergy Intermediate Hives Verified 01/18/24 23:36 vancomycin Allergy Intermediate Hives Verified 01/18/24 23:36 povidone-iodine Allergy Mild Hives Verified 01/18/24 23:36 [From Betadine] sulfadimethoxine AdvReac Intermediate Vomiting Verified 01/18/24 23:36 Vital Signs Vital Signs - 24 hr 01/20/24 14:25 01/20/24 14:25 01/20/24 14:36 Temperature Pulse Rate 96 92 Respiratory Rate 20 20 Blood Pressure Pulse Oximetry 94 Oxygen Delivery Room Air Fraction of Inspired Oxygen 01/20/24 15:23 01/20/24 16:01 01/20/24 16:23 Temperature 100.1 F H 98.6 F 99.2 F Pulse Rate 104 H Respiratory Rate 20 Blood Pressure 128/47 L Pulse Oximetry 93 Oxygen Delivery Fraction of Inspired Oxygen 01/20/24 21:30 01/20/24 21:45 01/20/24 20:00 Temperature 97.9 F Pulse Rate 97 88 Respiratory Rate 18 20 Blood Pressure 153/63 H Pulse Oximetry 98 Oxygen Delivery Room Air Fraction of Inspired Oxygen 01/20/24 21:50 01/21/24 03:00 01/21/24 03:10 Temperature Pulse Rate 94 92 Respiratory Rate 17 20 20 Blood Pressure Pulse Oximetry Oxygen Delivery CPAP Fraction of Inspired Oxygen 01/21/24 06:11 01/21/24 08:00 01/21/24 08:00 Temperature 98.2 F Pulse Rate 96 87 Respiratory Rate 18 20 Blood Pressure 128/46 L Pulse Oximetry 96 94 Oxygen Delivery Room Air Fraction of Inspired Oxygen 21 01/21/24 08:09 01/21/24 08:24 01/21/24 08:26 Temperature Pulse Rate 100 108 H 104 H Respiratory Rate 20 16 Blood Pressure 146/79 H Pulse Oximetry 98 Oxygen Delivery Fraction of Inspired Oxygen 01/21/24 08:30 Temperature Pulse Rate Respiratory Rate Blood Pressure Pulse Oximetry Oxygen Delivery Room Air Fraction of Inspired Oxygen Exam Const: General: alert; No acute distress Orientation/consciousness: patient oriented x3 Limitations: no limitations HENMT: Head: normocephalic and atraumatic Ears: hearing grossly normal bilaterally Face/Nose/Sinus: Normal external nose present and Normal nares present Mouth: Yes Normal oral and palatal mucosa present and Yes moist mucous membranes Eyes: General: appearance normal, both eyes and all related structures Conjunctivae: conjunctivae normal Sclera: sclerae normal Pupils: Equal, round and reactive pupils present EOM: EOMs intact bilaterally Neck: Neck: normal visual inspection, full ROM, no lymphadenopathy, supple and no JVD Lymphatic: no lymphadenopathy noted Chest: Chest palpation & inspection: normal inspection of the chest Resp: Effort & Inspection: normal respiratory effort and able to speak in complete sentences Auscultation: clear to auscultation bilaterally Percussion: percussion normal Cardio: Jugular venous distension: no JVD Rate: regular rate Rhythm: regular rhythm Heart sounds: S1 normal heart sound present and S2 normal heart sound present Peripheral pulses: Peripheral pulses 2+ throughout GI: Inspection: normal to inspection Auscultation: normal bowel sounds : General: Yes no CVA tenderness Back/Spine/Pelvis: Back: no CVA tenderness Skin: General skin exam: normal color and dry skin Neuro: General: patient oriented x3, gait normal, moves all extremities, no focal motor deficits and CN's II-XI intact bilaterally Cranial nerves: Yes Equal, round and reactive pupils present Speech: normal speech Extrem: General: normal to inspection and capillary refill normal Results Labs 01/21/24 06:03 01/21/24 06:03 Labs: Abnormal lab results 01/20/24 01/20/24 01/21/24 Range/Units 16:02 21:13 03:33 RBC (4.2-5.4) M/mm3 Hgb (12.0-15.0) g/dL Hct (37.0-47.0) % MCHC (32-36) g/dl RDW (11.5-14.5) % MPV (7.4-10.4) fl Lymph % (Auto) (18.3-44.2) % [place] % (Auto) (2.6-8.5) % [place] # (Auto) (0.1-0.6) K/mm3 Abs Immat Gran (auto) (0.00-0.031) K/mm3 Sodium (137-145) mmol/L Carbon Dioxide (22-30) mmol/L BUN (7-17) mg/dL Creatinine (0.7-1.0) mg/dL Estimated GFR (59 - ) Glucose (65-110) mg/dL POC Capillary Glucose 248 H 324 H 229 H (65-105) mg/dl Calcium (8.4-10.2) mg/dL AST (14-36) U/L Alkaline Phosphatase (38-126) U/L Albumin (3.5-5.1) g/dL 01/21/24 01/21/24 01/21/24 Range/Units 06:03 07:32 11:31 RBC 2.94 L (4.2-5.4) M/mm3 Hgb 8.0 L (12.0-15.0) g/dL Hct 25.9 L (37.0-47.0) % MCHC 30.9 L (32-36) g/dl RDW 15.4 H (11.5-14.5) % MPV 11.8 H (7.4-10.4) fl Lymph % (Auto) 16.9 L (18.3-44.2) % [place] % (Auto) 8.6 H (2.6-8.5) % [place] # (Auto) 0.7 H (0.1-0.6) K/mm3 Abs Immat Gran (auto) 0.04 H (0.00-0.031) K/mm3 Sodium 134 L (137-145) mmol/L Carbon Dioxide 21 L (22-30) mmol/L BUN 22 H (7-17) mg/dL Creatinine 1.50 H (0.7-1.0) mg/dL Estimated GFR 34 L (59 - ) Glucose 194 H (65-110) mg/dL POC Capillary Glucose 156 H 314 H (65-105) mg/dl Calcium 8.2 L (8.4-10.2) mg/dL AST 51 H (14-36) U/L Alkaline Phosphatase 161 H (38-126) U/L Albumin 3.3 L (3.5-5.1) g/dL Diabetes panel 01/21/24 Range/Units 06:03 Sodium 134 L (137-145) mmol/L Potassium 3.6 (3.4-5.0) mmol/L Chloride 106 (98-107) mmol/L Carbon Dioxide 21 L (22-30) mmol/L BUN 22 H (7-17) mg/dL Creatinine 1.50 H (0.7-1.0) mg/dL Glucose 194 H (65-110) mg/dL Calcium 8.2 L (8.4-10.2) mg/dL AST 51 H (14-36) U/L ALT 20 (6-35) U/L Alkaline Phosphatase 161 H (38-126) U/L Total Protein 7.0 (6.3-8.2) g/dL Albumin 3.3 L (3.5-5.1) g/dL Calcium panel 11/24/24 Range/Units 06:03 Calcium 8.2 L (8.4-10.2) mg/dL Albumin 3.3 L (3.5-5.1) g/dL Pituitary panel 01/21/24 Range/Units 06:03 Sodium 134 L (137-145) mmol/L Potassium 3.6 (3.4-5.0) mmol/L Chloride 106 (98-107) mmol/L Carbon Dioxide 21 L (22-30) mmol/L BUN 22 H (7-17) mg/dL Creatinine 1.50 H (0.7-1.0) mg/dL Glucose 194 H (65-110) mg/dL Calcium 8.2 L (8.4-10.2) mg/dL Adrenal panel 01/21/24 Range/Units 06:03 Sodium 134 L (137-145) mmol/L Potassium 3.6 (3.4-5.0) mmol/L Chloride 106 (98-107) mmol/L Carbon Dioxide 21 L (22-30) mmol/L BUN 22 H (7-17) mg/dL Creatinine 1.50 H (0.7-1.0) mg/dL Glucose 194 H (65-110) mg/dL Calcium 8.2 L (8.4-10.2) mg/dL Total Bilirubin 0.8 (0.2-1.3) mg/dL AST 51 H (14-36) U/L ALT 20 (6-35) U/L Alkaline Phosphatase 161 H (38-126) U/L Total Protein 7.0 (6.3-8.2) g/dL Albumin 3.3 L (3.5-5.1) g/dL All other labs normal. Imaging Additional studies: ITS Impressions Foot X-Ray 01/18/24 22:10 IMPRESSION: 1. No evidence of osteomyelitis. Chest X-Ray 01/18/24 22:13 IMPRESSION: 1. No acute cardiopulmonary disease. Knee X-Ray 01/18/24 22:14 IMPRESSION: 1. Moderate right knee osteoarthritis. Venous Doppler Study 01/21/24 12:03 IMPRESSION: 1. [id number] deep venous thrombosis in the right posterior tibial veins. Findings were discussed with Stacy Rojas, the nurse caring for the patient, at 12:07 PM.
[2024-01-21 16:32] LABS: Glucose Point of Care 261 mg/dl (65-105)
[2024-01-21] MEDS: SODIUM CHLORIDE 0.9% IV 1,000 ML 75 ML IV CONT (16:34)
--- NOTE | 2024-01-21 16:38 | P.PNCROSS_ITS ---
Event Note Event Note Event Note: Was informed about DVT in the right posterior tibial vein. Patient is taking X arelto 2.5 mg p.o. b.i.d.. 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 I believe low-dose of Xarelto possibly to prevent coronary artery disease and PAD according to [place] [facility]. Started heparin drip and held Xarelto 2.5 mg p.o. until patient is on heparin drip. Discussed with the family and explained the risk versus benefits of heparin. They agree to starting heparin.
[2024-01-21 16:57] LABS: Basophils Absolute Auto 0.1 K/mm3 (0.0-0.1); Basophils Percent Auto 0.7 % (0.2-1.2); Eosinophils Absolute Auto 0.2 K/mm3 (0-0.3); Eosinophils Percent Auto 3.4 % (0-4.4); Hematocrit 27.1 % (37.0-47.0); Hemoglobin 8.5 g/dL (12.0-15.0); Immature Granulocyte Absolute 0.04 K/mm3 (0.00-0.031); Immature Granulocyte Percent A 0.6 % (0-0.5); Lymphocytes Absolute Auto 0.97 K/mm3 (0.9-3.2); Lymphocytes Percent Auto 13.8 % (18.3-44.2); Mean Corpuscular HGB Conc 31.4 g/dl (32-36); Mean Corpuscular Hemoglobin 27.3 pg (26-34); Mean Corpuscular Volume 87.1 fl (80-100); Mean Platelet Volume 10.9 fl (7.4-10.4); Monocytes Absolute Auto 0.6 K/mm3 (0.1-0.6); Monocytes Percent Auto 8.7 % (2.6-8.5); Neutrophils Absolute Auto 5.1 K/mm3 (1.3-6.7); Neutrophils Percent Auto 72.8 % (45.5-73.1); Platelet Count Result 188 k/mm3 (150-375); Red Blood Count 3.11 M/mm3 (4.2-5.4); Red Cell Distribution Width 15.2 % (11.5-14.5); White Blood Count 7.1 K/mm3 (4.5-10.0)
[2024-01-21 17:12] LABS: INR 1.2; Prothrombin Time 15.3 Seconds (11.1-14.7)
[2024-01-21 17:13] LABS: Partial Thromboplastin Time 40.4 Seconds (22.3-36.8)
--- NOTE | 2024-01-21 17:56 | PM.CNOR ---
Assessment and Plan Assessment and plan (1) Deep vein thrombosis (DVT) of right posterior tibial vein: Code(s): I82.441 - Acute embolism and thrombosis of right tibial vein Status: Acute Assessment and Plan: Patient is a 73-year-old female who I a.m. asked to see for her right great toe infection. She has been treating a right great toe diabetic foot all the wound care clinic since August of this year. She has been seeing 2 of the nurses there. It seemed to be healing up nicely and she was going to be discharged after 1 more visit in early January. However, on it started swelling and a small blister started forming over the dorsal medial aspect of the great toe. On was also noted that she was having swelling and pain in the calf with weight-bearing. She was admitted to the hospital. She had a venous duplex up a DVT in the posterior tibial veins. She has also been complaining of shortness of breath and chest pain since . I a.m. trying to reach the hospitalist to discuss obtaining imaging to rule out PE which I think is necessary in this case she has been started on a heparin drip for the DVT earlier this afternoon with the thought that we would need to take her to surgery and heparin drip would be status to reverse. She was also found to have greater than 100 white cells per high-powered field in her urine on admission 3 days ago and unfortunately the cultures are still pending on that urine. She has been started on piper cell an and doxycycline. She has allergy to vancomycin. Her past history is significant for previous fusion of the right great toe interphalangeal with a cannulated screw that was inserted through the distal tip of the distal phalanx and she has undergone a triple arthrodesis procedure in the right foot at and has spanning hardware. This was done by Dr. Pradip Dominique at [place] in approximately 2011. If she has had previously for diabetic foot ulcer involving the left great toe that went on to osteomyelitis. She had x-rays of the right foot on admission which showed no evidence of osteomyelitis of the right great toe and no lucency around within the phalanges. The hospitalist earlier had mention that she had arterial studies performed that were normal but I could not find arterial studies listed in the EMR. On exam she is a pleasant female alert and oriented. She had 3 daughters with her in the room. Her BMI is 44.5. There was a trace amount of swelling around the ankle but no tenderness. She has no pain or tenderness around the big toe because she has severe peripheral neuropathy. This allowed me to elevate a large area of medial and dorsal medial skin that was hyperkeratotic epidermis and there was minimal clear fluid between the hyperkeratotic epidermis and the deeper dermis which was intact other than a 7 mm diameter area of necrosis white tissue over the medial aspect of the distal phalanx approximately medial to the base of the distal responded with the healed over ulcer in the thick epidermal skin that we peeled off I used pickups and scissors excise this large of thick hyperkeratotic skin leaving thickened skin around the perionychium. She has a hypertrophic nail plate. This removed skin off of the plantar aspect of the pad of the big toe as well to a large degree. I did not have fluid that appeared purulent and appropriate to send for culture. As above the dermis was muscular except for the area of the diabetic foot ulcer. I probed the diabetic foot ulcer necrotic area and I could not appreciate any directly with the bone. Assessment and plan 1. Patient has had exacerbation of diabetic. It looks like the ulcer healed over the epidermis but recurred. A large sheet of thick epidermal skin was removed. I do not perceive that there is a deep abscess or definite evidence for osteomyelitis need to remove intramedullary screw at this time but I discussed with her and the family that if the infection does not resolve or if x-ray changes show evidence of osteomyelitis or lucency around root within the screw will have to be removed and potentially she might require amputation such as as she had performed on the left big toe in the past.. I have applied 4 x 4 sponges and will ask the nurses to change this 3 times all it is bleeding. We will ask the wound care nurse to see her to make recommendations on any ointments that are recommended. Patient is currently on Piper cillin and doxycycline. I am going to ask Dr. Juan Robison be involved. I suspect that she will resume care clinic and this would be overseen by Dr. Vazquez.. She is actually his patient chronically. Recently she has been seen him her knees were she has at least moderate osteoarthritis in her knees. 2. Patient has chest pain and shortness of breath intermittently and there is concerned that she may have a pulmonary embolism. Interestingly, when she was admitted a few months ago with a severe urinary tract infection she also had chest pain and shortness of breath and at that time underwent CT angiogram showed no evidence of pulmonary embolism. I have left a text message with the hospitalist about ordering either a venous duplex ultrasound or CTA. Unfortunately her creatinine is elevated at 1.5 and her creatinine clearance is 35 so I will defer to the hospitalist as to whether not she can have a CT angiogram of her renal function. She is on IV heparin drip at this time so if she does have a pulmonary embolism she is receiving the definitive treatment for that. 60 minutes were spent in total care of this patient. (2) Diabetic foot ulcer: Code(s): E11.621 - Type 2 diabetes mellitus with foot ulcer; L97.509 - Non-pressure chronic ulcer of other part of unspecified foot with unspecified severity Status: Acute (3) Cellulitis of great toe of right foot: Code(s): L03.031 - Cellulitis of right toe Status: Acute History of Present Illness HPI Consult date: 01/21/24 Chief complaint: DIABETIC FOOT, URINARY TRACT INFECTION [facility] Past Medical History Medical History (Updated 01/21/24 @ 13:25 by Francisco Leo DO) Abdominal pain Acute pain of both hips Acute pain of both knees Amputation toe Anemia Arthritis of knee, degenerative BMI greater than 40 Carpal tunnel syndrome, bilateral Cellulitis of right foot Charcot ankle Chicken pox Chronic abdominal pain Chronic diarrhea Chronic pain Colon cancer screening 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 2 diabetes mellitus Diarrhea Ear ache Essential hypertension Fibromyalgia Flat foot [pes planus] (acquired), left foot Gastroparesis Heartburn Hernia History of OH (myocardial infarction) Hives Hypertension Hypothyroidism Left knee DJD Left shoulder pain Left wrist pain 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 Lupus Microscopic colitis Non-pressure chronic ulcer of other part of unspecified foot limited to breakdown of skin Non-pressure chronic ulcer of right heel and midfoot with bone involvement without evidence of necrosis Numbness in both hands Obesity Other chronic pain Pain in left hand Peripheral arterial disease Pes planus of both feet Pneumonia Polyneuropathy Polyneuropathy 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 Posterior tibial tendon dysfunction, left Pre-op evaluation Rheumatoid arthritis Rheumatoid arthritis of unspecified site with involvement of other organs and systems Rib pain on right side Right knee DJD Right wrist pain Rotator cuff tendonitis Sepsis Sore throat Thrombocytopenia Type 2 diabetes mellitus Type 2 diabetes mellitus with complication UTI (urinary tract infection) Surgical History Surgical History Amputation of left great toe H/O foot surgery Poor historian- potential left posterior tibial tendon reconstruction Right foot charcot history? with surgery. History of carpal tunnel release History of hernia repair Hx of cholecystectomy Family History Family History Father Hyperlipidemia Lung cancer Diabetes mellitus Mother Diabetes mellitus Other Family history of allergic disorder Hypertension Social History Social History Social History: Patient quit tobacco in 1997 after smoking a pack a day for about 30 years. She denies drug use. She occasionally drinks alcohol. Still lives at home with her and brother. She is a full code. She nominated her daughter Elisha to be the individual make medical decisions for her if she is unable. Smoking packs per day: 1 Smoking cigarettes per day: 20.0 Years smoked: 29 Smoking pack-years: 29.00 Smoking status: Never smoker Tobacco type: cigarettes Smoking end date: 02/27/05 Alcohol intake: never Alcohol use details: occasionally Substance use: never Substance use type: does not use Do You Feel Safe in your Home?: Yes Lack of Transportation: No Lack of Food: Never True Current Housing: I Have Housing Concerned About Future Housing: No Difficulty Paying Gas/Electric Bills: No Difficulty Paying for Meds: No Currently Unemployed: No Education: High School Diploma/GED Difficulty w/ Childcare or Family Care: No Living arrangements: with family Gender identity (if verbalized by the patient): Female Spiritual care concerns: No Meds Home Medications and Allergies Home Medications Medication Instructions Recorded Confirmed Type cholecalciferol (vitamin D3) 125 5,000 unit PO DAILY 01/02/19 01/19/24 History mcg (5,000 unit) tablet multivitamin 1 tablet PO DAILY 01/02/19 01/19/24 History metoprolol succinate 25 mg 25 mg PO DAILY #90 tabs 05/14/19 01/19/24 Rx tablet,extended release 24 hr metformin 1,000 mg tablet 1,000 mg PO BID #180 tabs 04/14/20 01/19/24 Rx hydroxychloroquine 200 mg tablet 200 mg PO BID 05/06/20 01/19/24 History (Plaquenil) atorvastatin 40 mg tablet 40 mg PO HS 06/18/20 01/19/24 History rivaroxaban 2.5 mg tablet (Xarelto) 2.5 mg PO BID 09/08/21 01/19/24 History calcium carbonate 1,200 mg PO DAILY 12/01/21 01/19/24 History ferrous sulfate 325 mg (65 mg 325 mg PO BID 12/01/21 01/19/24 History iron) tablet duloxetine 20 mg capsule,delayed 20 mg PO DAILY 09/20/23 01/19/24 History release furosemide 20 mg tablet 20 mg PO DAILY 09/20/23 01/19/24 History aspirin 81 mg tablet,delayed 81 mg PO DAILY 10/17/23 01/19/24 History release esomeprazole magnesium 20 mg 20 mg PO DAILY 10/17/23 01/19/24 History capsule,delayed release (Nexium 24HR) fluticasone propionate 50 1 - 2 spray intranasal BID allergy 10/17/23 01/19/24 History mcg/actuation nasal symptoms spray,suspension (Allergy Relief (fluticasone)) glimepiride 4 mg tablet 4 mg PO DAILY 10/17/23 01/19/24 History insulin glargine U-300 conc 300 55 unit subcut HS 10/17/23 01/19/24 History unit/mL (1.5 mL) subcutaneous pen ([employer] U-300 Insulin) omega-3 1,050 [id number]-dpa-fish 1 cap PO BID 10/17/23 01/19/24 History oil 1,200 mg capsule gabapentin 300 mg capsule 300 mg PO BID #180 caps 10/18/23 01/19/24 Rx albuterol sulfate 90 mcg/actuation 2 puff inhalation Q4-6H PRN 11/29/23 01/19/24 Rx aerosol inhaler shortness of breath #18 grams magnesium oxide 400 mg (241.3 mg 400 mg PO DAILY 12/12/23 01/19/24 History magnesium) tablet isoniazid 300 mg tablet 300 mg PO DAILY 01/08/24 01/19/24 History levothyroxine 100 mcg tablet 100 mcg PO DAILY #90 tabs 01/16/24 01/19/24 Rx (Synthroid) Allergies Allergy/AdvReac Type Severity Reaction Status Date / Time daptomycin Allergy Intermediate Hives Verified 01/18/24 23:36 lisinopril Allergy Intermediate Cough Verified 01/18/24 23:36 trimethoprim Allergy Intermediate Itching Verified 01/18/24 23:36 valsartan Allergy Intermediate Hives Verified 01/18/24 23:36 vancomycin Allergy Intermediate Hives Verified 01/18/24 23:36 povidone-iodine Allergy Mild Hives Verified 01/18/24 23:36 [From Betadine] sulfadimethoxine AdvReac Intermediate Vomiting Verified 01/18/24 23:36 Vital Signs Vital Signs - 24 hr 01/20/24 21:30 01/20/24 21:45 01/20/24 20:00 Temperature 36.6 C Pulse Rate 97 88 Respiratory Rate 18 20 Blood Pressure 153/63 H Pulse Oximetry 98 Oxygen Delivery Room Air Fraction of Inspired Oxygen 01/20/24 21:50 01/21/24 03:00 01/21/24 03:10 Temperature Pulse Rate 94 92 Respiratory Rate 17 20 20 Blood Pressure Pulse Oximetry Oxygen Delivery CPAP Fraction of Inspired Oxygen 01/21/24 06:11 01/21/24 08:00 01/21/24 08:00 Temperature 36.8 C Pulse Rate 96 87 Respiratory Rate 18 20 Blood Pressure 128/46 L Pulse Oximetry 96 94 Oxygen Delivery Room Air Fraction of Inspired Oxygen 21 01/21/24 08:09 01/21/24 08:24 01/21/24 08:26 Temperature Pulse Rate 100 108 H 104 H Respiratory Rate 20 16 Blood Pressure 146/79 H Pulse Oximetry 98 Oxygen Delivery Fraction of Inspired Oxygen 01/21/24 08:30 01/21/24 13:35 01/21/24 13:35 Temperature Pulse Rate 95 Respiratory Rate 20 Blood Pressure Pulse Oximetry 95 Oxygen Delivery Room Air Room Air Fraction of Inspired Oxygen 21 01/21/24 13:40 01/21/24 16:00 Temperature 36.6 C Pulse Rate 97 68 Respiratory Rate 20 17 Blood Pressure 138/64 Pulse Oximetry 98 Oxygen Delivery Fraction of Inspired Oxygen Results Labs 01/21/24 16:49 01/21/24 06:03 Labs: Abnormal lab results 01/20/24 01/21/24 01/21/24 Range/Units 21:13 03:33 06:03 RBC 2.94 L (4.2-5.4) M/mm3 Hgb 8.0 L (12.0-15.0) g/dL Hct 25.9 L (37.0-47.0) % MCHC 30.9 L (32-36) g/dl RDW 15.4 H (11.5-14.5) % MPV 11.8 H (7.4-10.4) fl Immature Gran % (Auto) (0-0.5) % Lymph % (Auto) 16.9 L (18.3-44.2) % [place] % (Auto) 8.6 H (2.6-8.5) % [place] # (Auto) 0.7 H (0.1-0.6) K/mm3 Abs Immat Gran (auto) 0.04 H (0.00-0.031) K/mm3 PT (11.1-14.7) Seconds APTT (22.3-36.8) Seconds Sodium 134 L (137-145) mmol/L Carbon Dioxide 21 L (22-30) mmol/L BUN 22 H (7-17) mg/dL Creatinine 1.50 H (0.7-1.0) mg/dL Estimated GFR 34 L (59 - ) Glucose 194 H (65-110) mg/dL POC Capillary Glucose 324 H 229 H (65-105) mg/dl Calcium 8.2 L (8.4-10.2) mg/dL AST 51 H (14-36) U/L Alkaline Phosphatase 161 H (38-126) U/L Albumin 3.3 L (3.5-5.1) g/dL 01/21/24 01/21/24 01/21/24 Range/Units 07:32 11:31 16:21 RBC (4.2-5.4) M/mm3 Hgb (12.0-15.0) g/dL Hct (37.0-47.0) % MCHC (32-36) g/dl RDW (11.5-14.5) % MPV (7.4-10.4) fl Immature Gran % (Auto) (0-0.5) % Lymph % (Auto) (18.3-44.2) % [place] % (Auto) (2.6-8.5) % [place] # (Auto) (0.1-0.6) K/mm3 Abs Immat Gran (auto) (0.00-0.031) K/mm3 PT (11.1-14.7) Seconds APTT (22.3-36.8) Seconds Sodium (137-145) mmol/L Carbon Dioxide (22-30) mmol/L BUN (7-17) mg/dL Creatinine (0.7-1.0) mg/dL Estimated GFR (59 - ) Glucose (65-110) mg/dL POC Capillary Glucose 156 H 314 H 261 H (65-105) mg/dl Calcium (8.4-10.2) mg/dL AST (14-36) U/L Alkaline Phosphatase (38-126) U/L Albumin (3.5-5.1) g/dL 01/21/24 Range/Units 16:49 RBC 3.11 L (4.2-5.4) M/mm3 Hgb 8.5 L (12.0-15.0) g/dL Hct 27.1 L (37.0-47.0) % MCHC 31.4 L (32-36) g/dl RDW 15.2 H (11.5-14.5) % MPV 10.9 H (7.4-10.4) fl Immature Gran % (Auto) 0.6 H (0-0.5) % Lymph % (Auto) 13.8 L (18.3-44.2) % [place] % (Auto) 8.7 H (2.6-8.5) % [place] # (Auto) (0.1-0.6) K/mm3 Abs Immat Gran (auto) 0.04 H (0.00-0.031) K/mm3 PT 15.3 H (11.1-14.7) Seconds APTT 40.4 H (22.3-36.8) Seconds Sodium (137-145) mmol/L Carbon Dioxide (22-30) mmol/L BUN (7-17) mg/dL Creatinine (0.7-1.0) mg/dL Estimated GFR (59 - ) Glucose (65-110) mg/dL POC Capillary Glucose (65-105) mg/dl Calcium (8.4-10.2) mg/dL AST (14-36) U/L Alkaline Phosphatase (38-126) U/L Albumin (3.5-5.1) g/dL H & H 01/18/24 01/20/24 01/21/24 Range/Units 23:16 05:26 06:03 Hgb 8.9 L 7.9 L 8.0 L (12.0-15.0) g/dL Hct 28.4 L 26.7 L 25.9 L (37.0-47.0) % 01/21/24 Range/Units 16:49 Hgb 8.5 L (12.0-15.0) g/dL Hct 27.1 L (37.0-47.0) % Coagulation 01/18/24 01/21/24 Range/Units 23:16 16:49 INR 1.5 1.2 All other labs normal.
--- NOTE | 2024-01-21 18:37 | PC.NURSE ---
RN called Shannan regarding the PE work up but charge put that order in since Pj wasn't able to get ky of Shannan
[2024-01-21] MEDS: HEPARIN SOD/D5W 100 UNITS/ML 25,000 UNITS/250 ML BAG 13 UNITS IV CONT (20:10)
[2024-01-21 21:19] LABS: Glucose Point of Care 258 mg/dl (65-105)
[2024-01-21 21:20] LABS: Glucose Point of Care 192 mg/dl (65-105)
[2024-01-21] MEDS: ATORVASTATIN 40 MG TABLET PO (21:32)
[2024-01-21] MEDS: FLUTICASONE PROPIONATE 0.05% NA SPR 16 GM BTL (*BKC) 1 SPRAY NASAL (21:32)
[2024-01-21] MEDS: INSULIN GLARGINE (*BKC) 100 UNITS/ML 16 UNITS SUB-Q (21:38)
[2024-01-21] MEDS: ACETAMINOPHEN 325 MG TABLET 650 MG PO (21:52)
[2024-01-21] MEDS: MELATONIN 5 MG TABLET PO (23:28)
[2024-01-22] VITALS (8 sets, daily range): BP systolic 138; BP diastolic 99; PULSE 84–97; RESP 14–20; TEMP 36.4; O2SAT 97–99
[2024-01-22] MEDS: IPRATROPIUM 0.5 MG/ALBUTEROL SULFATE 2.5 MG AMPUL.NEB 3 ML INHALATION ×3 (02:17→13:23)
[2024-01-22 03:20] LABS: Basophils Absolute Auto 0.1 K/mm3 (0.0-0.1); Basophils Percent Auto 0.6 % (0.2-1.2); Eosinophils Absolute Auto 0.3 K/mm3 (0-0.3); Eosinophils Percent Auto 4.2 % (0-4.4); Hematocrit 26.4 % (37.0-47.0); Hemoglobin 8.2 g/dL (12.0-15.0); Immature Granulocyte Absolute 0.02 K/mm3 (0.00-0.031); Immature Granulocyte Percent A 0.3 % (0-0.5); Lymphocytes Absolute Auto 1.94 K/mm3 (0.9-3.2); Lymphocytes Percent Auto 24.5 % (18.3-44.2); Mean Corpuscular HGB Conc 31.1 g/dl (32-36); Mean Corpuscular Volume 86.8 fl (80-100); Monocytes Absolute Auto 0.7 K/mm3 (0.1-0.6); Neutrophils Absolute Auto 4.9 K/mm3 (1.3-6.7); Neutrophils Percent Auto 61.4 % (45.5-73.1); Platelet Count Result 192 k/mm3 (150-375); Red Blood Count 3.04 M/mm3 (4.2-5.4); Red Cell Distribution Width 15.3 % (11.5-14.5); White Blood Count 7.9 K/mm3 (4.5-10.0)
[2024-01-22 03:31] LABS: Alanine Aminotransferase 26 U/L (6-35); Albumin Level 3.3 g/dL (3.5-5.1); Alkaline Phosphatase 202 U/L (38-126); Anion Gap 7 mmol/L (4-12); Aspartate Amino Transferase 61 U/L (14-36); Bilirubin,Total 0.8 mg/dL (0.2-1.3); Blood Urea Nitrogen 18 mg/dL (7-17); Calcium 8.6 mg/dL (8.4-10.2); Carbon Dioxide 23 mmol/L (22-30); Chloride 108 mmol/L (98-107); Estimated CRCL calculation 40 ml/min; Estimated Glomerular Filt Rate 40; Glucose 130 mg/dL (65-110); Potassium 3.4 mmol/L (3.4-5.0); Sodium 138 mmol/L (137-145)
[2024-01-22 03:33] LABS: Partial Thromboplastin Time 109.9 Seconds (22.3-36.8)
[2024-01-22] MEDS: HEPARIN SOD/D5W 100 UNITS/ML 25,000 UNITS/250 ML BAG 12 UNITS IV CONT (03:57)
[2024-01-22] MEDS: LEVOTHYROXINE SODIUM 100 MCG TABLET PO (05:57)
[2024-01-22] MEDS: HYDROmorphone HCL INJ (*CRX) 1 MG/ML SYR IV PUSH ×2 (05:57→09:45)
[2024-01-22] MEDS: PIPERACILLIN/TAZ 2.25G/NS 50ML 2.25 GM/50 ML BAG IVPB (05:58)
[2024-01-22] MEDS: SODIUM CHLORIDE 0.9% IV 1,000 ML 75 ML IV CONT (06:43)
[2024-01-22 07:41] LABS: Glucose Point of Care 140 mg/dl (65-105)
--- NOTE | 2024-01-22 07:54 | PC.NURSE ---
WALKED INTO PATIENT ROOM THIS MORNING, AND PATIENT REPORTED DR KING SAID DO NOT USE TAPE TO HOLD FOOT DRESSING IN PLACE.
--- NOTE | 2024-01-22 08:25 | PHA.ABX.ID ---
Pharmacy ID Consult - Stewardship Interventions Type of Interventions: Discharge Recommendation Pharmacy ID Note: Subjective Pharmacy was consulted by Emily Guardado MD regarding infectious diseases for Aleyda Dobbs. Aleyda Dobbs is a 73 year old F with concerns regarding Foot ulcer. Background The patient is currently receiving Piperacillin/tazobactam and Doxycycline (full day 4). The patient's PMH includes recent worsening of foot ulcer that, per consulting provider, has improved greatly since admission. No cultures of area noted. Microbiology 01/18/24 23:25 Blood Blood Culture - Preliminary 01/18/24 23:16 Blood Blood Culture - Preliminary Laboratory Tests 01/18/24 01/20/24 01/21/24 23:16 05:26 06:03 WBC 10.4 H 7.5 8.1 Creatinine Estim Creat Clear Calc 01/21/24 01/22/24 01/22/24 16:49 03:06 03:06 WBC 7.1 7.9 Creatinine 1.30 H Estim Creat Clear Calc 40 Assessment/Recommendation/Discussion Spoke briefly with consulting provider and was thinking that Pseudomonal coverage was likely not necessary. Agreed that if okay per hospitalist, which further discussion with hospitalist provider confirmed, that patient could be switched to PO options completely for a finishing 10 days of treatment - Augmentin and Doxycycline. Orders placed. Will sign off at this time - please don't hesitate to reconsult in any new information comes to light. Thank you for the interesting consult. Gallito Juarez, PharmD Infectious Disease/Antimicrobial Stewardship Pharmacist 01/22/24; 0825 WBC 7.9 K/mm3 (4.5-10.0) 01/22/24 03:06 Creatinine 1.30 mg/dL (0.7-1.0) H 01/22/24 03:06 Estim Creat Clear Calc 40 ml/min 01/22/24 03:06
[2024-01-22 08:26] LABS: Toxigenic C. Diff NEGATIVE (NEGATIVE)
--- NOTE | 2024-01-22 09:22 | P.PNOP_ITS ---
Progress Note: A&P Assessment and Plan (1) Diabetic foot ulcer: Code(s): E11.621 - Type 2 diabetes mellitus with foot ulcer; L97.509 - Non-pressure chronic ulcer of other part of unspecified foot with unspecified severity Status: Acute Assessment and Plan: Patient's great toe looks much better today. She has formed a brown eschar in an area about 1/2 inch x 1/2 inch that is plantar to the medial necrotic dermis area that remains unchanged. The swelling in the toe is much less. There is no drainage. We have asked the wound care nurse to make recommendations and at discharge she can follow up with the [facility]. I have spoken with the Infectious Disease pharmacist and he recommends when she is ready to switch to oral using Augmentin and doxycycline for broad-spectrum coverage. She had a CT angiogram of the chest last night which showed no evidence of pulmonary embolism. She can be on standard DVT treatment anticoagulation now. This is a calf vein so the risk of PE is substantially diminished. I will defer that to the hospitalist service. I have spoken with Dr. Martinez and he will follow up with her after discharge. Subjective Subjective Date/Time Seen: 01/22/24 09:22 Objective Data Vital Signs Vital Signs: Vital Signs - 24 hr 01/21/24 13:35 01/21/24 13:35 01/21/24 13:40 Temperature Pulse Rate 95 97 Respiratory Rate 20 20 Blood Pressure Pulse Oximetry 95 Oxygen Delivery Room Air Fraction of Inspired Oxygen 01/21/24 16:00 01/21/24 20:12 01/21/24 20:12 Temperature 36.6 C Pulse Rate 68 98 Respiratory Rate 17 18 Blood Pressure 138/64 Pulse Oximetry 98 98 Oxygen Delivery Room Air Fraction of Inspired Oxygen 01/21/24 20:17 01/21/24 21:45 01/21/24 20:00 Temperature 37.3 C Pulse Rate 102 H 96 Respiratory Rate 18 18 Blood Pressure 154/66 H Pulse Oximetry 98 Oxygen Delivery Room Air Fraction of Inspired Oxygen 01/22/24 02:17 01/22/24 02:22 01/22/24 06:24 Temperature 36.4 C Pulse Rate 97 93 94 Respiratory Rate 14 14 18 Blood Pressure 138/99 H Pulse Oximetry 99 Oxygen Delivery Fraction of Inspired Oxygen 01/22/24 07:49 01/22/24 07:49 01/22/24 07:57 Temperature Pulse Rate 95 96 Respiratory Rate 18 18 Blood Pressure Pulse Oximetry 97 Oxygen Delivery Room Air Fraction of Inspired Oxygen 21 Intake/Output Intake/Output: Intake & Output 01/19/24 01/20/24 01/21/24 01/22/24 23:59 23:59 23:59 23:59 Intake Total 4398 4817.5 3760 1301.2 Output Total 700 Balance 3698 4817.5 3760 1301.2 Meds/Results Medications: Active Medications Generic Name Dose Route Start Last Admin Trade Name Freq PRN Reason Stop Dose Admin Acetaminophen 650 mg 01/20/24 07:56 01/21/24 21:52 Acetaminophen 325 Mg Tablet PO 650 mg Q4H PRN Administration Mild Pain (1-3) or Fever Albuterol 2 puff 01/19/24 15:02 01/19/24 17:50 Albuterol Sulfate (*Sp) Aerosol 1 Puff INHALATION 2 puff Q4HRT PRN Administration shortness of breath Albuterol/Ipratropium 3 ml 01/19/24 18:12 01/22/24 07:47 Ipratropium 0.5 Mg/Albuterol Sulfate 2.5 Mg Ampul.Neb 3 Ml INHALATION 3 ml Q6HRT REGIS Administration Amoxicillin/Clavulanate Potassium 1 tablet 01/22/24 10:00 Amoxicillin/Clavulanate K 875-125 Mg Tab PO 01/31/24 21:01 Q12HR REGIS Apixaban 5 mg 01/29/24 21:00 Apixaban 5 Mg Tablet PO Q12HR REGIS Apixaban 10 mg 01/22/24 09:20 Apixaban 5 Mg Tablet PO 01/29/24 09:19 Q12HR REGIS Aspirin 81 mg 01/20/24 09:00 Aspirin 81 Mg Enteric Tablet PO DAILY REGIS Atorvastatin Calcium 40 mg 01/19/24 21:00 01/21/24 21:32 Atorvastatin 40 Mg Tablet PO 40 mg HS REGIS Administration Dextrose 12.5 gm 01/19/24 15:09 Dextrose 50% 25 Gm/50 Ml Syringe IV PUSH PRN PRN Hypoglycemia Protocol Docusate Sodium 100 mg 01/20/24 09:00 01/21/24 08:27 Docusate Sodium 100 Mg Capsule PO Not Given DAILY [facility] Doxycycline Hyclate 100 mg 01/19/24 13:30 01/21/24 21:32 Doxycycline Hyclate 100 Mg Tablet PO 01/31/24 23:59 100 mg Q12HR REGIS Administration Duloxetine HCl 20 mg 01/20/24 09:00 01/21/24 08:26 Duloxetine Hcl 20 Mg Capsule.Dr PO 20 mg DAILY REGIS Administration Ferrous Sulfate 325 mg 01/19/24 17:00 01/21/24 16:35 Ferrous Sulfate [address] BY MOUTH 325 mg BID REGIS Administration Fluticasone Propionate 1 spray 01/19/24 21:00 01/21/24 21:32 Fluticasone Propionate 0.05% Na Spr 16 Gm Btl (*Bkc) NASAL 1 spray Q12HR REGIS Administration Furosemide 20 mg 01/20/24 09:00 01/21/24 08:26 Furosemide 20 Mg Tablet PO 20 mg DAILY REGIS Administration Gabapentin 300 mg 01/19/24 17:00 01/19/24 20:22 Gabapentin 300 Mg Capsule PO 300 mg Q12HR REGIS Administration Glucagon 1 mg 01/19/24 15:09 Glucagon For Inj 1 Mg Vial IM PRN PRN Hypoglycemia Protocol Glucose 15 gm 01/19/24 15:09 Glucose Oral Gel 15 Gm Of Glucse In 37.5 Gm Tube PO PRN PRN Hypoglycemia Protocol Hydromorphone HCl 1 mg 01/19/24 01:46 01/22/24 05:57 Hydromorphone Hcl Inj (*Crx) 1 Mg/Ml Syr IV PUSH 1 mg Q3H PRN Administration Pain Rated 7-10 Hydroxychloroquine Sulfate 200 mg 01/19/24 17:00 01/21/24 16:35 Hydroxychloroquine Sulfate 200 Mg Tablet PO 200 mg BID REGIS Administration Dextrose 1,000 mls @ 100 mls/hr 01/19/24 15:09 Dextrose 5% 1,000 Ml IVPB PRN PRN Hypoglycemia Protocol Insulin Aspart 4 - 8 units 01/19/24 17:00 01/21/24 16:36 Insulin Aspart (*Bkc) 100 Units/Ml SUB-Q 5 units TIDWM REGIS Administration Protocol Insulin Aspart 2 - 4 units 01/19/24 21:00 01/21/24 21:32 Insulin Aspart (*Bkc) 100 Units/Ml SUB-Q 2 units HS REGIS Administration Protocol Insulin Glargine 16 units 01/19/24 21:00 01/21/24 21:38 Insulin Glargine (*Bkc) 100 Units/Ml SUB-Q 16 units HS REGIS Administration Levothyroxine Sodium 100 mcg 01/20/24 06:30 01/22/24 05:57 Levothyroxine Sodium 100 Mcg Tablet PO 100 mcg DAILY@0630 REGIS Administration Melatonin 5 mg 01/21/24 23:20 01/21/24 23:28 Melatonin 5 Mg Tablet PO 5 mg HS PRN Administration Sleep Metoprolol Succinate 25 mg 01/20/24 09:00 01/21/24 08:26 Metoprolol Succinate Ext Rel 25 Mg Tabcr PO 25 mg DAILY REGIS Administration Multivitamins Therapeutic 1 tablet 01/20/24 09:00 01/21/24 08:26 Multivitamins Therapeutic Tab (*Bkc) PO 1 tablet DAILY REGIS Administration Ondansetron HCl 4 mg 01/19/24 15:14 Ondansetron Inj 4 Mg/2 Ml Vial IV PUSH Q6H PRN Nausea And Vomiting Pantoprazole Sodium 40 mg 01/20/24 09:00 01/21/24 08:26 Pantoprazole 40 Mg Tablet PO 40 mg QAM REGIS Administration Vitamin D 5,000 units 01/20/24 09:00 01/21/24 08:21 Cholecalciferol 5,000 Units Tablet PO Not Given DAILY [facility] Radiology Results: ITS Impressions Foot X-Ray 01/18/24 22:10 IMPRESSION: 1. No evidence of osteomyelitis. Chest X-Ray 01/18/24 22:13 IMPRESSION: 1. No acute cardiopulmonary disease. Knee X-Ray 01/18/24 22:14 IMPRESSION: 1. Moderate right knee osteoarthritis. Venous Doppler Study 01/21/24 12:03 IMPRESSION: 1. [id number] deep venous thrombosis in the right posterior tibial veins. Findings were discussed with Stacy Rojas, the nurse caring for the patient, at 12:07 PM. Chest CTA 01/22/24 07:02 IMPRESSION: 1. No pulmonary embolus. 2. Mild pulmonary edema. 3. Small pleural effusions. Labs Labs: Laboratory Results - last 24 hr 01/21/24 01/21/24 01/21/24 11:31 16:21 16:49 WBC 7.1 RBC 3.11 L Hgb 8.5 L Hct 27.1 L MCV 87.1 MCH 27.3 MCHC 31.4 L RDW 15.2 H Plt Count 188 MPV 10.9 H Immature Gran % (Auto) 0.6 H Neut % (Auto) 72.8 Lymph % (Auto) 13.[address] [place] % (Auto) 8.7 H Eos % (Auto) 3.4 Baso % (Auto) 0.7 Lymph # (Auto) 0.97 [facility] # (Auto) 0.6 Eos # (Auto) 0.2 Baso # (Auto) 0.1 Abs Immat Gran (auto) 0.04 H Absolute Neuts (auto) 5.1 Absolute Nucleated RBC 0.000 Nucleated RBC % 0.0 PT 15.3 H INR 1.2 APTT 40.4 H Sodium Potassium Chloride Carbon Dioxide Anion Gap BUN Creatinine Estim Creat Clear Calc Estimated GFR Glucose POC Capillary Glucose 314 H 261 H Calcium Total Bilirubin AST ALT Alkaline Phosphatase Total Protein Albumin C. difficile (PCR) 01/21/24 01/21/24 01/22/24 20:04 21:15 03:06 WBC 7.9 RBC 3.04 L Hgb 8.2 L Hct 26.4 L MCV 86.8 MCH 27.0 MCHC 31.1 L RDW 15.3 H Plt Count 192 MPV 11.0 H Immature Gran % (Auto) 0.3 Neut % (Auto) 61.4 Lymph % (Auto) 24.5 [facility] % (Auto) 9.0 H Eos % (Auto) 4.2 Baso % (Auto) 0.6 Lymph # (Auto) 1.94 [facility] # (Auto) 0.7 H Eos # (Auto) 0.3 Baso # (Auto) 0.1 Abs Immat Gran (auto) 0.02 Absolute Neuts (auto) 4.9 Absolute Nucleated RBC 0.000 Nucleated RBC % 0.0 PT INR APTT 109.9 H Sodium 138 Potassium 3.4 Chloride 108 H Carbon Dioxide 23 Anion Gap 7 BUN 18 H Creatinine 1.30 H Estim Creat Clear Calc 40 Estimated GFR 40 L Glucose 130 H POC Capillary Glucose 192 H 258 H Calcium 8.6 Total Bilirubin 0.8 AST 61 H ALT 26 Alkaline Phosphatase 202 H Total Protein 7.0 Albumin 3.3 L C. difficile (PCR) 01/22/24 01/22/24 06:34 07:30 WBC RBC Hgb Hct MCV MCH MCHC RDW Plt Count MPV Immature Gran % (Auto) Neut % (Auto) Lymph % (Auto) [facility] % (Auto) Eos % (Auto) Baso % (Auto) Lymph # (Auto) [facility] # (Auto) Eos # (Auto) Baso # (Auto) Abs Immat Gran (auto) Absolute Neuts (auto) Absolute Nucleated RBC Nucleated RBC % PT INR APTT Sodium Potassium Chloride Carbon Dioxide Anion Gap BUN Creatinine Estim Creat Clear Calc Estimated GFR Glucose POC Capillary Glucose 140 H Calcium Total Bilirubin AST ALT Alkaline Phosphatase Total Protein Albumin C. difficile (PCR) Negative
[2024-01-22] MEDS: APIXABAN 5 MG TABLET 10 MG PO (09:32)
[2024-01-22] MEDS: CHOLECALCIFEROL 5,000 UNITS TABLET 5000 UNITS PO (09:32)
[2024-01-22] MEDS: METOPROLOL SUCCINATE EXT REL 25 MG TABCR PO (09:32)
[2024-01-22] MEDS: DULoxetine HCL 20 MG CAPSULE.DR PO (09:32)
[2024-01-22] MEDS: DOCUSATE SODIUM 100 MG CAPSULE PO (09:32)
[2024-01-22] MEDS: PANTOPRAZOLE 40 MG TABLET PO (09:32)
[2024-01-22] MEDS: MULTIVITAMINS THERAPEUTIC TAB (*BKC) 1 TABLET PO (09:32)
[2024-01-22] MEDS: AMOXICILLIN/CLAVULANATE K 875-125 MG TAB 1 TABLET PO (09:33)
[2024-01-22] MEDS: HYDROXYCHLOROQUINE SULFATE 200 MG TABLET PO (09:33)
[2024-01-22] MEDS: FUROSEMIDE 20 MG TABLET PO (09:33)
[2024-01-22] MEDS: FLUTICASONE PROPIONATE 0.05% NA SPR 16 GM BTL (*BKC) 1 SPRAY NASAL (09:33)
[2024-01-22] MEDS: FERROUS SULFATE 325 MG TABLET DR BY MOUTH (09:33)
[2024-01-22] MEDS: DOXYCYCLINE HYCLATE 100 MG TABLET PO (09:33)
[2024-01-22 11:21] LABS: Glucose Point of Care 153 mg/dl (65-105)
--- NOTE | 2024-01-22 13:01 | P.DS_ITS ---
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 DS: Discharge Diagnosis Discharge Diagnosis (1) Urinary tract infection: Code(s): N39.0 - Urinary tract infection, site not specified Status: Acute (2) Diabetic foot: Code(s): E11.8 - Type 2 diabetes mellitus with unspecified complications Status: Acute (3) Hypothyroidism: Code(s): E03.9 - Hypothyroidism, unspecified Status: Chronic (4) CHF (congestive heart failure): Code(s): I50.9 - Heart failure, unspecified Status: Acute (5) Type 2 diabetes mellitus: Code(s): E11.9 - Type 2 diabetes mellitus without complications Status: Acute (6) GERD (gastroesophageal reflux disease): Qualifiers: Esophagitis presence: without esophagitis Qualified Code(s): K21.9 - Gastro-esophageal reflux disease without esophagitis Code(s): K21.9 - Gastro-esophageal reflux disease without esophagitis Status: Chronic (7) Current use of termite control service representative anticoagulation: Code(s): Z79.01 - termite treater helper (current) use of anticoagulants Status: Acute (8) TERESA (acute kidney injury): Code(s): N17.9 - Acute kidney failure, unspecified Status: Acute (9) Abnormal liver enzymes: Code(s): R74.8 - Abnormal levels of other serum enzymes Status: Acute DS: Summary Hospital Course Reason for hospitalization: UTI Diabetic foot hypothyroidism CHF Type II DM GERD 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 right foot x-ray shows no evidence of osteomyelitis. patient reports the following history of presenting illness. She states that she noticed that her right foot and great toe was swollen, warm and red and she originally called the wound clinic who prompted her to go to the ER for further evaluation. she has been seen in the Wound Clinic for a couple of months now for her chronic diabetic foot wound. She states her symptoms started yesterday. Patient denies any fever, chills, nausea, vomiting, diarrhea, abdominal pain, chest pain, shortness a breath. Chest x-ray was negative. Right knee x-ray showed moderate right knee osteoarthritis, no effusion. Initial labs showed a white blood cell count of 10.4, RBC 3.27, hemoglobin 8.9, INR 1.5, sodium 133, creatinine 1.70, EGFR 30, blood sugar ranging 95-147, lactic acid was normal at 1.3, AST 37, C reactive protein 14.0. A UA was obtained showed cloudy urine appearance, 3+ urine protein, trace glucose, 2+ urine blood, 2+ leukocytes, 21- 50 urine RBC, greater than 100 urine WBC, 4+ urine bacteria. Blood and urine cultures were obtained and pending. EKG showed sinus rhythm with a rate of 83, QTC 473. Patient was given Zosyn and vancomycin along with IV fluids in the ED. She was transitioned to Zosyn and Doxycyline with improvement in her symptoms. She was switched to oral Augmentin and Doxycyline today. She also had a Venous doppler done which was positive for a DVT. She was placed on Eliquis and given a coupon for a free month. Orthopedic surgery was consulted however no surgery required. She will need to follow up with Dr. Martinez in 1-2 weeks post antibiotic completion. She will also need to follow up in the wound clinic as she will require TID dressing changes for now. Patient is medically stable for discharge at this time. Final diagnosis: Cellulitis of diabetic foot wound, uncontrolled diabetes mellitus, DVT, Acute UTI Status at Discharge Cognitive/behavioral status at discharge: Alert and oriented x3 Functional status at discharge: independent ambulation Overall status at discharge: patient is progressing back to baseline Time Spent with Patient Time attestation: Total time spent providing and/or coordinating discharge services: Time spent: Greater than 30 minutes Exam Narrative: General: In no acute distress, well nourished Cardiac: Normal S1 and S2. No murmur, gallops or friction rubs, peripheral pulses intact. Respiratory: Lungs clear to auscultation, no adventitious lung sounds, Currently on room air Gastrointestinal: soft, non-distended, non-tender, normoactive bowel sounds. : voiding without difficulty. Extremities: moves all extremities well,mild edema in right great toe Skin: right foot great toe red and warm to touch with some swelling, open dry necrotic wound on plantar side of foot open to air Neuro: Alert and oriented x4, cranial nerves intact, no neuro deficits. Psych: normal mood, normal affect, interactive DS: Data Data Completed and Pending Completed studies during hospitalization: Foot x-ray Chest x-ray Knee x-ray Venous doppler study Chest CTA Pending studies at discharge: Blood and urine cultures Labs on day of discharge: Labs from last 24 hours 01/22/24 01/22/24 01/22/24 11:15 07:30 06:34 WBC RBC Hgb Hct MCV MCH MCHC RDW Plt Count MPV Immature Gran % (Auto) Neut % (Auto) Lymph % (Auto) Brooks % (Auto) Eos % (Auto) Baso % (Auto) Lymph # (Auto) Brooks # (Auto) Eos # (Auto) Baso # (Auto) Abs Immat Gran (auto) Absolute Neuts (auto) Absolute Nucleated RBC Nucleated RBC % PT INR APTT Sodium Potassium Chloride Carbon Dioxide Anion Gap BUN Creatinine Estim Creat Clear Calc Estimated GFR Glucose POC Capillary Glucose 153 H 140 H Calcium Total Bilirubin AST ALT Alkaline Phosphatase Total Protein Albumin C. difficile (PCR) Negative 01/22/24 01/21/24 01/21/24 03:06 21:15 20:04 WBC 7.9 RBC 3.04 L Hgb 8.2 L Hct 26.4 L MCV 86.8 MCH 27.0 MCHC 31.1 L RDW 15.3 H Plt Count 192 MPV 11.0 H Immature Gran % (Auto) 0.3 Neut % (Auto) 61.4 Lymph % (Auto) 24.5 Brooks % (Auto) 9.0 H Eos % (Auto) 4.2 Baso % (Auto) 0.6 Lymph # (Auto) 1.94 Brooks # (Auto) 0.7 H Eos # (Auto) 0.3 Baso # (Auto) 0.1 Abs Immat Gran (auto) 0.02 Absolute Neuts (auto) 4.9 Absolute Nucleated RBC 0.000 Nucleated RBC % 0.0 PT INR APTT 109.9 H Sodium 138 Potassium 3.4 Chloride 108 H Carbon Dioxide 23 Anion Gap 7 BUN 18 H Creatinine 1.30 H Estim Creat Clear Calc 40 Estimated GFR 40 L Glucose 130 H POC Capillary Glucose 258 H 192 H Calcium 8.6 Total Bilirubin 0.8 AST 61 H ALT 26 Alkaline Phosphatase 202 H Total Protein 7.0 Albumin 3.3 L C. difficile (PCR) 01/21/24 01/21/24 16:49 16:21 WBC 7.1 RBC 3.11 L Hgb 8.5 L Hct 27.1 L MCV 87.1 MCH 27.3 MCHC 31.4 L RDW 15.2 H Plt Count 188 MPV 10.9 H Immature Gran % (Auto) 0.6 H Neut % (Auto) 72.8 Lymph % (Auto) 13.8 L Brooks % (Auto) 8.7 H Eos % (Auto) 3.4 Baso % (Auto) 0.7 Lymph # (Auto) 0.97 [place] # (Auto) 0.6 Eos # (Auto) 0.2 Baso # (Auto) 0.1 Abs Immat Gran (auto) 0.04 H Absolute Neuts (auto) 5.1 Absolute Nucleated RBC 0.000 Nucleated RBC % 0.0 PT 15.3 H INR 1.2 APTT 40.4 H Sodium Potassium Chloride Carbon Dioxide Anion Gap BUN Creatinine Estim Creat Clear Calc Estimated GFR Glucose POC Capillary Glucose 261 H Calcium Total Bilirubin AST ALT Alkaline Phosphatase Total Protein Albumin C. difficile (PCR) Preliminary micro results at discharge 01/18/24 23:16 Blood Culture - Preliminary Blood 01/18/24 23:25 Blood Culture - Preliminary Blood Procedures/Treatments: None Discharge Plan Discharge Attending physician on discharge: Juan Alberto Denton Consulting providers: Amisha Izaguirre; Jv Guardado; Caleb Martinez Discharging Clinician: Amisha Izaguirre Anticipated Discharge Date/Time: 01/22/24 12:47 Patient Disposition: Home, Self-Care Activity: as tolerated Diet: as tolerated Discharge Instructions: * Continue dressing changes every 8 hours on your foot wound per Wound clinic recommendations * Follow up with wound clinic in 2 weeks * Follow up with Dr. Martinez in 1 week * Finish all your antibiotics even if you are feeling better * Continue Eliquis for your deep vein thrombosis. Follow up with primary care doctor regarding this and the continuation of your Eliquis medication. * Take Eliquis 10 mg prescription first until all pills are gone then transition to the 5mg twice a day from there. Patient Instructions: Antibiotic Form, Doxycycline (By mouth), Amoxicillin/Clavulanate Potassium (By mouth), Rivaroxaban (By mouth), Apixaban (By mouth), Cellulitis (ED), Foot Care for People with Diabetes (DC) Patient Language: Pashto Stand Alone Forms: General Discharge Information Follow-up/Referrals: Caleb Martinez MD [Physician] - 1 Week Charles Armendariz DO [Primary Care Provider] - 1 Week Discharge Medications: New doxycycline hyclate 100 mg Tablet 100 mg PO Q12HR Qty: 13 0RF Eliquis 5 mg Tablet 5 mg PO Q12HR Qty: 60 0RF Eliquis 5 mg Tablet 10 mg PO Q12HR Qty: 13 0RF amoxicillin-pot clavulanate 875-125 mg tablet 1 tablet PO Q12H Qty: 19 0RF Continued multivitamin Tablet 1 tablet PO DAILY cholecalciferol (vitamin D3) 5,000 unit tablet 5,000 unit PO DAILY ferrous sulfate 325 mg (65 mg iron) tablet 325 mg PO BID calcium carbonate 600 mg calcium (1,500 mg) tablet 1,200 mg PO DAILY metoprolol succinate 25 mg tablet extended release 24 hr 25 mg PO DAILY Qty: 90 0RF isoniazid 300 mg tablet 300 mg PO DAILY hydroxychloroquine [Plaquenil] 200 mg tablet 200 mg PO BID atorvastatin 40 mg tablet 40 mg PO HS aspirin 81 mg tablet,delayed release (DR/EC) 81 mg PO DAILY Patient Comments: ON HOLD glimepiride 4 mg tablet 4 mg PO DAILY [id number] oil 1,050-1,200 mg Capsule 1 cap PO BID insulin glargine U-300 conc [Toujeo SoloStar U-300 Insulin] 300 unit/mL (1.5 mL) insulin pen 55 unit SUBCUT HS fluticasone propionate [Allergy Relief (fluticasone)] 50 mcg/actuation spray,suspension 1 - 2 spray NASAL BID esomeprazole magnesium [Nexium 24HR] 20 mg Capsule,Delayed Release(Dr/Ec) 20 mg PO DAILY magnesium oxide 400 mg (241.3 mg magnesium) tablet 400 mg PO DAILY furosemide 20 mg tablet 20 mg PO DAILY duloxetine 20 mg capsule,delayed release(DR/EC) 20 mg PO DAILY Rx Instructions: TAKE 1 CAPSULE DAILY metformin 1,000 mg tablet 1,000 mg PO BID Qty: 180 0RF gabapentin 300 mg capsule 300 mg PO BID Qty: 180 1RF Rx Instructions: Due for appointment in March albuterol sulfate 90 mcg/actuation HFA aerosol inhaler 2 puff INHALATION Q4-6H PRN (Reason: shortness of breath) Qty: 18 2RF levothyroxine [Synthroid] 100 mcg tablet 100 mcg PO DAILY Qty: 90 1RF Discontinued Xarelto 2.5 mg tablet 2.5 mg PO BID Date of admission: 01/19/24 17:00 Primary Care Provider: Charles Armendariz Admitting Provider: Krissy Sosa V. Attending physician on admission: Krissy Sosa V. Condition: Improved Quality VTE Prophylaxis VTE prophylaxis: pharmacologic ordered
--- NOTE | 2024-01-22 13:58 | P.CONOP_ITS ---
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 mellitus Diarrhea Ear ache Essential hypertension Fibromyalgia Flat foot [pes planus] (acquired), left foot Gastroparesis Heartburn Hernia History of OK (myocardial infarction) Hives Hypertension Hypothyroidism Left knee DJD Left shoulder pain 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 Lupus Microscopic colitis Non-pressure chronic ulcer of other part of unspecified foot limited to breakdown of skin Non-pressure chronic ulcer of right heel and midfoot with bone involvement without evidence of necrosis Numbness in both hands Obesity Other chronic pain Pain in left hand Peripheral arterial disease Pes planus of both feet Pneumonia Polyneuropathy Polyneuropathy 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 Posterior tibial tendon dysfunction, left Pre-op evaluation Rheumatoid arthritis Rheumatoid arthritis of unspecified site with involvement of other organs and systems Rib pain on right side Right knee DJD Right wrist pain Rotator cuff tendonitis Sepsis Sore throat Thrombocytopenia Type 2 diabetes mellitus Type 2 diabetes mellitus with complication UTI (urinary tract infection) Surgical History Surgical History Amputation of left great toe H/O foot surgery Poor historian- potential left posterior tibial tendon reconstruction Right foot charcot history? with surgery. History of carpal tunnel release History of hernia repair Hx of cholecystectomy Family History Family History Father Hyperlipidemia Lung cancer Diabetes mellitus Mother Diabetes mellitus Other Family history of allergic disorder Hypertension Social History Social History Social History: Patient quit tobacco in 1997 after smoking a pack a day for about 30 years. She denies drug use. She occasionally drinks alcohol. Still lives at home with her and brother. She is a full code. She nominated her daughter Elisha to be the individual make medical decisions for her if she is unable. Smoking packs per day: 1 Smoking cigarettes per day: 20.0 Years smoked: 29 Smoking pack-years: 29.00 Smoking status: Never smoker Tobacco type: cigarettes Smoking end date: 02/27/05 Alcohol intake: never Alcohol use details: occasionally Substance use: never Substance use type: does not use Do You Feel Safe in your Home?: Yes Lack of Transportation: No Lack of Food: Never True Current Housing: I Have Housing Concerned About Future Housing: No Difficulty Paying Gas/Electric Bills: No Difficulty Paying for Meds: No Currently Unemployed: No Education: High School Diploma/GED Difficulty w/ Childcare or Family Care: No Living arrangements: with family Gender identity (if verbalized by the patient): Female Spiritual care concerns: No Meds Home Medications and Allergies Home Medications Medication Instructions Recorded Confirmed Type cholecalciferol (vitamin D3) 125 5,000 unit PO DAILY 01/02/19 01/19/24 History mcg (5,000 unit) tablet multivitamin 1 tablet PO DAILY 01/02/19 01/19/24 History metoprolol succinate 25 mg 25 mg PO DAILY #90 tabs 05/14/19 01/19/24 Rx tablet,extended release 24 hr metformin 1,000 mg tablet 1,000 mg PO BID #180 tabs 04/14/20 01/19/24 Rx hydroxychloroquine 200 mg tablet 200 mg PO BID 05/06/20 01/19/24 History (Plaquenil) atorvastatin 40 mg tablet 40 mg PO HS 06/18/20 01/19/24 History calcium carbonate 1,200 mg PO DAILY 12/01/21 01/19/24 History ferrous sulfate 325 mg (65 mg 325 mg PO BID 12/01/21 01/19/24 History iron) tablet duloxetine 20 mg capsule,delayed 20 mg PO DAILY 09/20/23 01/19/24 History release furosemide 20 mg tablet 20 mg PO DAILY 09/20/23 01/19/24 History aspirin 81 mg tablet,delayed 81 mg PO DAILY 10/17/23 01/19/24 History release esomeprazole magnesium 20 mg 20 mg PO DAILY 10/17/23 01/19/24 History capsule,delayed release (Nexium 24HR) fluticasone propionate 50 1 - 2 spray intranasal BID allergy 10/17/23 01/19/24 History mcg/actuation nasal symptoms spray,suspension (Allergy Relief (fluticasone)) glimepiride 4 mg tablet 4 mg PO DAILY 10/17/23 01/19/24 History insulin glargine U-300 conc 300 55 unit subcut HS 10/17/23 01/19/24 History unit/mL (1.5 mL) subcutaneous pen ([employer] U-300 Insulin) omega-3 1,050 [id number] 1 cap PO BID 10/17/23 01/19/24 History oil 1,200 mg capsule gabapentin 300 mg capsule 300 mg PO BID #180 caps 10/18/23 01/19/24 Rx albuterol sulfate 90 mcg/actuation 2 puff inhalation Q4-6H PRN 11/29/23 01/19/24 Rx aerosol inhaler shortness of breath #18 grams magnesium oxide 400 mg (241.3 mg 400 mg PO DAILY 12/12/23 01/19/24 History magnesium) tablet isoniazid 300 mg tablet 300 mg PO DAILY 01/08/24 01/19/24 History levothyroxine 100 mcg tablet 100 mcg PO DAILY #90 tabs 01/16/24 01/19/24 Rx (Synthroid) amoxicillin 875 mg-potassium 1 tablet PO Q12H #19 tabs 01/22/24 Rx clavulanate 125 mg tablet apixaban 5 mg tablet (Eliquis) 5 mg PO Q12HR #60 tabs 01/22/24 Rx apixaban 5 mg tablet (Eliquis) 10 mg PO Q12HR #13 tabs 01/22/24 Rx doxycycline hyclate 100 mg tablet 100 mg PO Q12HR #13 tabs 01/22/24 Rx Allergies Allergy/AdvReac Type Severity Reaction Status Date / Time daptomycin Allergy Intermediate Hives Verified 01/18/24 23:36 lisinopril Allergy Intermediate Cough Verified 01/18/24 23:36 trimethoprim Allergy Intermediate Itching Verified 01/18/24 23:36 valsartan Allergy Intermediate Hives Verified 01/18/24 23:36 vancomycin Allergy Intermediate Hives Verified 01/18/24 23:36 povidone-iodine Allergy Mild Hives Verified 01/18/24 23:36 [From Betadine] sulfadimethoxine AdvReac Intermediate Vomiting Verified 01/18/24 23:36 Vital Signs Vital Signs - 24 hr 01/21/24 16:00 01/21/24 20:12 01/21/24 20:12 Temperature 36.6 C Pulse Rate 68 98 Respiratory Rate 17 18 Blood Pressure 138/64 Pulse Oximetry 98 98 Oxygen Delivery Room Air Fraction of Inspired Oxygen 01/21/24 20:17 01/21/24 21:45 01/21/24 20:00 Temperature 37.3 C Pulse Rate 102 H 96 Respiratory Rate 18 18 Blood Pressure 154/66 H Pulse Oximetry 98 Oxygen Delivery Room Air Fraction of Inspired Oxygen 01/22/24 02:17 01/22/24 02:22 01/22/24 06:24 Temperature 36.4 C Pulse Rate 97 93 94 Respiratory Rate 14 14 18 Blood Pressure 138/99 H Pulse Oximetry 99 Oxygen Delivery Fraction of Inspired Oxygen 01/22/24 07:49 01/22/24 07:49 01/22/24 07:57 Temperature Pulse Rate 95 96 Respiratory Rate 18 18 Blood Pressure Pulse Oximetry 97 Oxygen Delivery Room Air Fraction of Inspired Oxygen 01/22/24 09:32 01/22/24 09:35 01/22/24 13:23 Temperature Pulse Rate 90 88 Respiratory Rate 20 Blood Pressure Pulse Oximetry Oxygen Delivery Room Air Fraction of Inspired Oxygen 01/22/24 13:31 Temperature Pulse Rate 84 Respiratory Rate 20 Blood Pressure Pulse Oximetry Oxygen Delivery Fraction of Inspired Oxygen Results Labs 01/22/24 03:06 01/22/24 03:06 Labs: Abnormal lab results 01/21/24 01/21/24 01/21/24 Range/Units 16:21 16:49 20:04 RBC 3.11 L (4.2-5.4) M/mm3 Hgb 8.5 L (12.0-15.0) g/dL Hct 27.1 L (37.0-47.0) % MCHC 31.4 L (32-36) g/dl RDW 15.2 H (11.5-14.5) % MPV 10.9 H (7.4-10.4) fl Immature Gran % (Auto) 0.6 H (0-0.5) % Lymph % (Auto) 13.8 L (18.3-44.2) % [place] % (Auto) 8.7 H (2.6-8.5) % [place] # (Auto) (0.1-0.6) K/mm3 Abs Immat Gran (auto) 0.04 H (0.00-0.031) K/mm3 PT 15.3 H (11.1-14.7) Seconds APTT 40.4 H (22.3-36.8) Seconds Chloride (98-107) mmol/L BUN (7-17) mg/dL Creatinine (0.7-1.0) mg/dL Estimated GFR (59 - ) Glucose (65-110) mg/dL POC Capillary Glucose 261 H 192 H (65-105) mg/dl AST (14-36) U/L Alkaline Phosphatase (38-126) U/L Albumin (3.5-5.1) g/dL 01/21/24 01/22/24 01/22/24 Range/Units 21:15 03:06 07:30 RBC 3.04 L (4.2-5.4) M/mm3 Hgb 8.2 L (12.0-15.0) g/dL Hct 26.4 L (37.0-47.0) % MCHC 31.1 L (32-36) g/dl RDW 15.3 H (11.5-14.5) % MPV 11.0 H (7.4-10.4) fl Immature Gran % (Auto) (0-0.5) % Lymph % (Auto) (18.3-44.2) % [place] % (Auto) 9.0 H (2.6-8.5) % [place] # (Auto) 0.7 H (0.1-0.6) K/mm3 Abs Immat Gran (auto) (0.00-0.031) K/mm3 PT (11.1-14.7) Seconds APTT 109.9 H (22.3-36.8) Seconds Chloride 108 H (98-107) mmol/L BUN 18 H (7-17) mg/dL Creatinine 1.30 H (0.7-1.0) mg/dL Estimated GFR 40 L (59 - ) Glucose 130 H (65-110) mg/dL POC Capillary Glucose 258 H 140 H (65-105) mg/dl AST 61 H (14-36) U/L Alkaline Phosphatase 202 H (38-126) U/L Albumin 3.3 L (3.5-5.1) g/dL 01/22/24 Range/Units 11:15 RBC (4.2-5.4) M/mm3 Hgb (12.0-15.0) g/dL Hct (37.0-47.0) % MCHC (32-36) g/dl RDW (11.5-14.5) % MPV (7.4-10.4) fl Immature Gran % (Auto) (0-0.5) % Lymph % (Auto) (18.3-44.2) % [place] % (Auto) (2.6-8.5) % [place] # (Auto) (0.1-0.6) K/mm3 Abs Immat Gran (auto) (0.00-0.031) K/mm3 PT (11.1-14.7) Seconds APTT (22.3-36.8) Seconds Chloride (98-107) mmol/L BUN (7-17) mg/dL Creatinine (0.7-1.0) mg/dL Estimated GFR (59 - ) Glucose (65-110) mg/dL POC Capillary Glucose 153 H (65-105) mg/dl AST (14-36) U/L Alkaline Phosphatase (38-126) U/L Albumin (3.5-5.1) g/dL H & H 01/18/24 01/20/24 01/21/24 Range/Units 23:16 05:26 06:03 Hgb 8.9 L 7.9 L 8.0 L (12.0-15.0) g/dL Hct 28.4 L 26.7 L 25.9 L (37.0-47.0) % 01/21/24 01/22/24 Range/Units 16:49 03:06 Hgb 8.5 L 8.2 L (12.0-15.0) g/dL Hct 27.1 L 26.4 L (37.0-47.0) % Coagulation 01/18/24 01/21/24 Range/Units 23:16 16:49 INR 1.5 1.2 All other labs normal.
--- NOTE | 2024-01-22 16:09 | P.CONOP_ITS ---
Assessment and Plan Assessment and plan (1) Diabetic foot ulcer: Qualifiers: Diabetic foot ulcer location: toe Diabetes mellitus type: type 2 Laterality: right Non-pressure ulcer stage: with necrosis of muscle Qualified Code(s): E11.621 - Type 2 diabetes mellitus with foot ulcer; L97.513 - Non- pressure chronic ulcer of other part of right foot with necrosis of muscle Code(s): E11.621 - Type 2 diabetes mellitus with foot ulcer; L97.509 - Non-pressure chronic ulcer of other part of unspecified foot with unspecified severity Status: Acute Assessment and Plan: Chronic ulcer of the right medial hallux which became acutely worse with impact injury to the right toe last week. Most likely increased swelling and pressure caused further loss of blood flow and necrosis. At this time appears stable but is questionable for ability to heal with peripheral arterial disease, diabetes and neuropathy. No sign of infection at this time. Treatment options including amputation of the toe verses wound care and antibiotics with attempted salvage discussed in detail. Risks and benefits reviewed. All of her questions were answered. She has declined surgery at this time unless would like to proceed with continued dressing and wound care as well as oral antibiotics. If she shows further necrosis, loss of tissue or infection we discussed the indications for hallux amputation. She is going to use a postoperative shoe for protected weight-bearing. Daily dressing changes with silver gel and Mepilex foam. She has a follow-up appointment in the [facility] wound clinic on January 29 where we will re-evaluate her. (2) Cellulitis of great toe of right foot: Code(s): L03.031 - Cellulitis of right toe Status: Acute (3) Peripheral sensory neuropathy due to type 2 diabetes mellitus: Code(s): E11.42 - Type 2 diabetes mellitus with diabetic polyneuropathy Status: Acute (4) Peripheral arterial occlusive disease: Code(s): I77.9 - Disorder of arteries and arterioles, unspecified Status: Acute Assessment and Plan: Evaluation in [place] in 2020. Difficult problem with small-vessel disease at the ankle and distal. Discussed the very high risk for further loss of tissue and need for amputation. (5) Deep vein thrombosis (DVT) of right posterior tibial vein: Code(s): I82.441 - Acute embolism and thrombosis of right tibial vein Status: Acute Assessment and Plan: noted yesterday on Doppler exam. Started on heparin and plan for discharge on Eliquis. History of Present Illness HPI Consult date: 01/22/24 Requesting physician: Jv Guardado MD Chief complaint: DIABETIC FOOT Ulcer Narrative: 73-year-old woman known to the [facility] for previous le ft hallux diabetic ulcer which ultimately required amputation. History of diabetes with peripheral neuropathy as well as peripheral arterial disease. Patient also followed for bilateral knee arthritis as an outpatient. Had been followed in the [facility] for the past 4 months for right hallux diabetic ulcer which was reportedly improving until Last week. The patient states she jammed her right hallux at home on furniture 1 week ago. She then noted increased redness, swelling, skin peeling and slough over the hallux 3 days later and presented to the emergency room. She was admitted to the hospital and started on antibiotics. Dr. Guardado performed a bedside debridement of the hallux. I have been asked to see her for evaluation and possible definitive care for the foot. To review her history, in 2020 when she had problems with the left hallux blood flow studies were done. She was noted to have complete occlusion of both tibial arteries at the ankle on CT angiogram with runoff. ABIs were not able to be obtained due to the occlusion. TB eyes done at that time were nondetectable on the right side and 0.39 on the left. She was evaluated in [place] but no vascular procedures were done. She underwent left hallux amputation which appears well healed at this time Review of Systems Review of Systems: All systems reviewed & are unremarkable except as noted in HPI and below Constitutional: Constitutional: Reports as per HPI and Reports no additional constitutional complaints Eyes: Eyes: Reports as per HPI and Reports no additional eye complaints ENT: Reports system reviewed and no additional complaints, except as documented and Reports as per HPI Cardiovascular: Cardiovascular: Reports as per HPI and Reports no additional cardiovascular complaints Respiratory: Respiratory: Reports as per HPI and Reports no additional respiratory complaints Gastrointestinal: Gastrointestinal: Reports as per HPI and Reports no additional gastrointestinal complaints Genitourinary: Genitourinary: Reports no additional female genitourinary com plaints and Reports as per HPI Musculoskeletal: Musculoskeletal: Reports no additional musculoskeletal complaints and Reports as per HPI Integumentary/Breasts: Skin/Breast: Reports system reviewed and no additional complaints, except as docu and Reports as per HPI Neurologic: Reports system reviewed and no additional complaints, except as documented and Reports as per HPI Psychiatric: Psychiatric: Reports no additional psychiatric complaints and Reports as per HPI [facility] Past Medical History Medical History (Updated 01/22/24 @ 16:20 by Caleb Martinez MD) Abdominal pain Acute pain of both hips Acute pain of both knees Amputation toe Anemia Arthritis of knee, degenerative BMI greater than 40 Carpal tunnel syndrome, bilateral Cellulitis of right foot Charcot ankle Chicken pox Chronic abdominal pain Chronic diarrhea Chronic pain Colon cancer screening 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 2 diabetes mellitus Diarrhea Ear ache Essential hypertension Fibromyalgia Flat foot [pes planus] (acquired), left foot Gastroparesis Heartburn Hernia History of [place] (myocardial infarction) Hives Hypertension Hypothyroidism Left knee DJD Left shoulder pain 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 Lupus Microscopic colitis Non-pressure chronic ulcer of other part of unspecified foot limited to breakdown of skin Non-pressure chronic ulcer of right heel and midfoot with bone involvement wit hout evidence of necrosis Numbness in both hands Obesity Other chronic pain Pain in left hand Peripheral arterial disease 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 Pes planus of both feet Pneumonia Polyneuropathy Polyneuropathy 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 Posterior tibial tendon dysfunction, left Pre-op evaluation Rheumatoid arthritis Rheumatoid arthritis of unspecified site with involvement of other organs and systems Rib pain on right side Right knee DJD Right wrist pain Rotator cuff tendonitis Sepsis Sore throat Thrombocytopenia Type 2 diabetes mellitus Type 2 diabetes mellitus with complication UTI (urinary tract infection) Surgical History Surgical History Amputation of left great toe H/O foot surgery Poor historian- potential left posterior tibial tendon reconstruction Right foot charcot history? with surgery. History of carpal tunnel release History of hernia repair Hx of cholecystectomy Family History Family History Father Hyperlipidemia Lung cancer Diabetes mellitus Mother Diabetes mellitus Other Family history of allergic disorder Hypertension Social History Social History Social History: Patient quit tobacco in 1997 after smoking a pack a day for about 30 years. She denies drug use. She occasionally drinks alcohol. Still lives at home with her and brother. She is a full code. She nominated her daughter Elisha to be the individual make medical decisions for her if she is unable. Smoking packs per day: 1 Smoking cigarettes per day: 20.0 Years smoked: 29 Smoking pack-years: 29.00 Smoking status: Never smoker Tobacco type: cigarettes Smoking end date: 02/27/05 Alcohol intake: never Alcohol use details: occasionally Substance use: never Substance use type: does not use Do You Feel Safe in your Home?: Yes Lack of Transportation: No Lack of Food: Never True Current Housing: I Have Housing Concerned About Future Housing: No Difficulty Paying Gas/Electric Bills: No Difficulty Paying for Meds: No Currently Unemployed: No Education: High School Diploma/GED Difficulty w/ Childcare or Family Care: No Living arrangements: with family Gender identity (if verbalized by the patient): Female Spiritual care concerns: No Meds Home Medications and Allergies Home Medications Medication Instructions Recorded Confirmed Type cholecalciferol (vitamin D3) 125 5,000 unit PO DAILY 01/02/19 01/19/24 History mcg (5,000 unit) tablet multivitamin 1 tablet PO DAILY 01/02/19 01/19/24 History metoprolol succinate 25 mg 25 mg PO DAILY #90 tabs 05/14/19 01/19/24 Rx tablet,extended release 24 hr metformin 1,000 mg tablet 1,000 mg PO BID #180 tabs 04/14/20 01/19/24 Rx hydroxychloroquine 200 mg tablet 200 mg PO BID 05/06/20 01/19/24 History (Plaquenil) atorvastatin 40 mg tablet 40 mg PO HS 06/18/20 01/19/24 History calcium carbonate 1,200 mg PO DAILY 12/01/21 01/19/24 History ferrous sulfate 325 mg (65 mg 325 mg PO BID 12/01/21 01/19/24 History iron) tablet duloxetine 20 mg capsule,delayed 20 mg PO DAILY 09/20/23 01/19/24 History release furosemide 20 mg tablet 20 mg PO DAILY 09/20/23 01/19/24 History aspirin 81 mg tablet,delayed 81 mg PO DAILY 10/17/23 01/19/24 History release esomeprazole magnesium 20 mg 20 mg PO DAILY 10/17/23 01/19/24 History capsule,delayed release (Nexium 24HR) fluticasone propionate 50 1 - 2 spray intranasal BID allergy 10/17/23 01/19/24 History mcg/actuation nasal symptoms spray,suspension (Allergy Relief (fluticasone)) glimepiride 4 mg tablet 4 mg PO DAILY 10/17/23 01/19/24 History insulin glargine U-300 conc 300 55 unit subcut HS 10/17/23 01/19/24 History unit/mL (1.5 mL) subcutaneous pen ([employer] U-300 Insulin) omega-3 1,050 [id number] 1 cap PO BID 10/17/23 01/19/24 History oil 1,200 mg capsule gabapentin 300 mg capsule 300 mg PO BID #180 caps 10/18/23 01/19/24 Rx albuterol sulfate 90 mcg/actuation 2 puff inhalation Q4-6H PRN 11/29/23 01/19/24 Rx aerosol inhaler shortness of breath #18 grams magnesium oxide 400 mg (241.3 mg 400 mg PO DAILY 12/12/23 01/19/24 History magnesium) tablet isoniazid 300 mg tablet 300 mg PO DAILY 01/08/24 01/19/24 History levothyroxine 100 mcg tablet 100 mcg PO DAILY #90 tabs 01/16/24 01/19/24 Rx (Synthroid) amoxicillin 875 mg-potassium 1 tablet PO Q12H #19 tabs 01/22/24 Rx clavulanate 125 mg tablet apixaban 5 mg tablet (Eliquis) 5 mg PO Q12HR #60 tabs 01/22/24 Rx apixaban 5 mg tablet (Eliquis) 10 mg PO Q12HR #13 tabs 01/22/24 Rx doxycycline hyclate 100 mg tablet 100 mg PO Q12HR #13 tabs 01/22/24 Rx Allergies Allergy/AdvReac Type Severity Reaction Status Date / Time daptomycin Allergy Intermediate Hives Verified 01/18/24 23:36 lisinopril Allergy Intermediate Cough Verified 01/18/24 23:36 trimethoprim Allergy Intermediate Itching Verified 01/18/24 23:36 valsartan Allergy Intermediate Hives Verified 01/18/24 23:36 vancomycin Allergy Intermediate Hives Verified 01/18/24 23:36 povidone-iodine Allergy Mild Hives Verified 01/18/24 23:36 [From Betadine] sulfadimethoxine AdvReac Intermediate Vomiting Verified 01/18/24 23:36 Vital Signs Vital Signs - 24 hr 01/21/24 20:12 01/21/24 20:12 01/21/24 20:17 Temperature Pulse Rate 98 102 H Respiratory Rate 18 18 Blood Pressure Pulse Oximetry 98 Oxygen Delivery Room Air Fraction of Inspired Oxygen 01/21/24 21:45 01/21/24 20:00 01/22/24 02:17 Temperature 99.2 F Pulse Rate 96 97 Respiratory Rate 18 14 Blood Pressure 154/66 H Pulse Oximetry 98 Oxygen Delivery Room Air Fraction of Inspired Oxygen 21 01/22/24 02:22 01/22/24 06:24 01/22/24 07:49 Temperature 97.6 F Pulse Rate 93 94 Respiratory Rate 14 18 Blood Pressure 138/99 H Pulse Oximetry 99 97 Oxygen Delivery Room Air Fraction of Inspired Oxygen 21 01/22/24 07:49 01/22/24 07:57 01/22/24 09:32 Temperature Pulse Rate 95 96 90 Respiratory Rate 18 18 Blood Pressure Pulse Oximetry Oxygen Delivery Fraction of Inspired Oxygen 01/22/24 09:35 01/22/24 13:23 01/22/24 13:31 Temperature Pulse Rate 88 84 Respiratory Rate 20 20 Blood Pressure Pulse Oximetry Oxygen Delivery Room Air Fraction of Inspired Oxygen Exam Const: General: healthy appearing; No in distress or confusion Orientation/consciousness: oriented to person, oriented to place, oriented to time and No confusion HENMT: Head: normal to inspection, normocephalic and atraumatic Eyes: Conjunctivae: conjunctivae normal Sclera: sclerae normal Neck: Neck: supple and nontender Resp: Effort & Inspection: normal respiratory effort and no audible wheezes Cardio: Rhythm: regular rhythm Skin: General skin exam: no rashes or lesions noted Neuro: General: oriented to person, oriented to place, oriented to time and No confusion Extrem: Right upper extremity: normal to inspection Left upper extremity: normal to inspection Right lower extremity: ankle Details: normal to inspection, abnormal ROM Details: with range as follows (ankle dorsiflexion -10 degrees, plantar flexion 40?, inversion 15?, eversion 15?) and other ( good stability all directions); no tenderness, no swelling and no ecchymosis and foot Details: abnormal to inspection Details: joint swelling ( hallux), abnormal ROM of toe ( no active motion of the hallux), vascular exam Details: abnormal capillary refill Location: of all toes; dorsalis pedis pulse absent, posterior tibial pulse absent and capillary refill abnormal, tendon exam Details: active flexion abnormal and active extension abnormal, motor-sensory exam Details: two point discrimination abnormal Location: in all toes and light-touch abnormal Location: in all toes and other ( no active motion of the hallux); abnormal capillary refill Left lower extremity: ankle Details: normal to inspection and abnormal ROM Details: with range as follows (ankle dorsiflexion -10 degrees, plantar flexion 40?, inversion 15?, eversion 15?); no tenderness and no swelling and foot Details: abnormal to inspection ( status post hallux amputation, callus dorsum of 2nd PIP joint), abnormal ROM of toe, vascular exam Details: abnormal capillary refill Location: of all toes; dorsalis pedis pulse absent, posterior tivial pulse absent and capillary refill abnormal, tendon exam active flexion abnormal of the great toe and active extension abnormal of the great toe and motor-sensory exam two point discrimination abnormal and light-touch abnormal in all toes; abnormal capillary refill, no tenderness and no crepitus Other: medial aspect of the right hallux has a quarter-sized necrotic black eschar over the DIP joint. It does not probe to bone. There is mild surrounding swelling and erythema. The skin on the lateral aspect appears viable. There is mild swelling extending to the dorsum of the foot with mild dependent erythema. Psych: Affect: normal affect Results Labs 01/22/24 03:06 01/22/24 03:06 Labs: Abnormal lab results 01/21/24 01/21/24 01/21/24 Range/Units 16:21 16:49 20:04 RBC 3.11 L (4.2-5.4) M/mm3 Hgb 8.5 L (12.0-15.0) g/dL Hct 27.1 L (37.0-47.0) % MCHC 31.4 L (32-36) g/dl RDW 15.2 H (11.5-14.5) % MPV 10.9 H (7.4-10.4) fl Immature Gran % (Auto) 0.6 H (0-0.5) % Lymph % (Auto) 13.8 L (18.3-44.2) % [place] % (Auto) 8.7 H (2.6-8.5) % [place] # (Auto) (0.1-0.6) K/mm3 Abs Immat Gran (auto) 0.04 H (0.00-0.031) K/mm3 PT 15.3 H (11.1-14.7) Seconds APTT 40.4 H (22.3-36.8) Seconds Chloride (98-107) mmol/L BUN (7-17) mg/dL Creatinine (0.7-1.0) mg/dL Estimated GFR (59 - ) Glucose (65-110) mg/dL POC Capillary Glucose 261 H 192 H (65-105) mg/dl AST (14-36) U/L Alkaline Phosphatase (38-126) U/L Albumin (3.5-5.1) g/dL 01/21/24 01/22/24 01/22/24 Range/Units 21:15 03:06 07:30 RBC 3.04 L (4.2-5.4) M/mm3 Hgb 8.2 L (12.0-15.0) g/dL Hct 26.4 L (37.0-47.0) % MCHC 31.1 L (32-36) g/dl RDW 15.3 H (11.5-14.5) % MPV 11.0 H (7.4-10.4) fl Immature Gran % (Auto) (0-0.5) % Lymph % (Auto) (18.3-44.2) % [place] % (Auto) 9.0 H (2.6-8.5) % [place] # (Auto) 0.7 H (0.1-0.6) K/mm3 Abs Immat Gran (auto) (0.00-0.031) K/mm3 PT (11.1-14.7) Seconds APTT 109.9 H (22.3-36.8) Seconds Chloride 108 H (98-107) mmol/L BUN 18 H (7-17) mg/dL Creatinine 1.30 H (0.7-1.0) mg/dL Estimated GFR 40 L (59 - ) Glucose 130 H (65-110) mg/dL POC Capillary Glucose 258 H 140 H (65-105) mg/dl AST 61 H (14-36) U/L Alkaline Phosphatase 202 H (38-126) U/L Albumin 3.3 L (3.5-5.1) g/dL 01/22/24 Range/Units 11:15 RBC (4.2-5.4) M/mm3 Hgb (12.0-15.0) g/dL Hct (37.0-47.0) % MCHC (32-36) g/dl RDW (11.5-14.5) % MPV (7.4-10.4) fl Immature Gran % (Auto) (0-0.5) % Lymph % (Auto) (18.3-44.2) % [place] % (Auto) (2.6-8.5) % [place] # (Auto) (0.1-0.6) K/mm3 Abs Immat Gran (auto) (0.00-0.031) K/mm3 PT (11.1-14.7) Seconds APTT (22.3-36.8) Seconds Chloride (98-107) mmol/L BUN (7-17) mg/dL Creatinine (0.7-1.0) mg/dL Estimated GFR (59 - ) Glucose (65-110) mg/dL POC Capillary Glucose 153 H (65-105) mg/dl AST (14-36) U/L Alkaline Phosphatase (38-126) U/L Albumin (3.5-5.1) g/dL H & H 01/18/24 01/20/24 01/21/24 Range/Units 23:16 05:26 06:03 Hgb 8.9 L 7.9 L 8.0 L (12.0-15.0) g/dL Hct 28.4 L 26.7 L 25.9 L (37.0-47.0) % 01/21/24 01/22/24 Range/Units 16:49 03:06 Hgb 8.5 L 8.2 L (12.0-15.0) g/dL Hct 27.1 L 26.4 L (37.0-47.0) % Coagulation 01/18/24 01/21/24 Range/Units 23:16 16:49 INR 1.5 1.2 All other labs normal. Diagnostic results Ankle/Foot x-ray: image reviewed ( Right foot radiographs show what appears to be a triple arthrodesis of the hindfoot done previously with internal fixation as well as the hallux IP arthrodesis with screw fixation. There does not appear to be any acute bony changes.)
== END 2024-01-22 16:10 | disposition home or self-care (01) | DRG 638 ==
LOC: ANHED 01-19 00:42 → ANH3MEDSUR 01-19 00:43
PROVIDERS: Emergency Medicine; General Practice; Physician Assistant; Admitting Provider Internal Medicine; Emergency Provider Emergency Medicine; PCP Internal Medicine; Visit Provider Nurse Practitioner Acute Care
DX: E11.628 Type 2 diabetes mellitus with other skin complications (principal); I13.0 Hypertensive heart and chronic kidney disease with heart failure and stage 1 through stage 4 chronic kidney disease, or unspecified chronic kidney disease; L97.419 Non-pressure chronic ulcer of right heel and midfoot with unspecified severity; N39.0 Urinary tract infection, site not specified; L03.031 Cellulitis of right toe; E11.621 Type 2 diabetes mellitus with foot ulcer; N17.9 Acute kidney failure, unspecified; N18.9 Chronic kidney disease, unspecified; I50.9 Heart failure, unspecified; I82.441 Acute embolism and thrombosis of right tibial vein; E11.65 Type 2 diabetes mellitus with hyperglycemia; E11.42 Type 2 diabetes mellitus with diabetic polyneuropathy; E11.610 Type 2 diabetes mellitus with diabetic neuropathic arthropathy; E11.51 Type 2 diabetes mellitus with diabetic peripheral angiopathy without gangrene; E11.43 Type 2 diabetes mellitus with diabetic autonomic (poly)neuropathy; K31.84 Gastroparesis; K21.9 Gastro-esophageal reflux disease without esophagitis; K52.9 Noninfective gastroenteritis and colitis, unspecified; J45.909 Unspecified asthma, uncomplicated; E78.5 Hyperlipidemia, unspecified; E03.9 Hypothyroidism, unspecified; M17.0 Bilateral primary osteoarthritis of knee; M06.9 Rheumatoid arthritis, unspecified; M21.42 Flat foot [pes planus] (acquired), left foot; Z79.82 Long term (current) use of aspirin; Z89.412 Acquired absence of left great toe; Z79.02 Long term (current) use of antithrombotics/antiplatelets; I25.2 Old myocardial infarction; Z79.4 Long term (current) use of insulin; Z87.891 Personal history of nicotine dependence
CPT/HCPCS: 36415; 71045; 71275; 73562; 73630; 80053; 81001; 82948; 83036; 83605; 84443; 85025; 85610; 85730; 86140; 87040; 87070; 87077; 87086; 87205; 87493; 93005; 93971; 94640; 96365; 99285; A9270; G0378; J1171; J1644; J1815; J2543; J7030; Q9967

== ENCOUNTER 2024-01-30 07:36 | Outpatient (RCR) | payer OTHER, MEDICARE, BC, SELFPAY ==
[2024-01-15 00:03] VITALS: BMI 43.5
--- NOTE | 2024-01-30 13:40 | P.HP_ITS ---
H&P: HPI History of Present Illness Date/Time: 01/30/24 13:40 <MOON Carver - Last Filed: 01/30/24 15:52> Chief Complaint: Right toe erythema and wound. <MOON Carver - Last Filed: 01/30/24 15:52> Narrative: 73-year-old female returns to the [facility] outpatient wound clinic for re-evaluation status post hospitalization for right toe diabetic foot ulcer and erythema. Patient has been tolerating p.o. antibiotics well however has worsening wounds. She denies fever, chills, night sweats, nausea, vomiting or diarrhea. Family present in the wound clinic today with concerns of long- term treatment and viability of toe. <MOON Carver - Last Filed: 01/30/24 15:52> Review of Systems Review of Systems: All systems reviewed & are unremarkable except as noted in HPI and below <MOON Carver - Last Filed: 01/30/24 15:52> Constitutional: Constitutional: Reports as per HPI and Reports no additional constitutional complaints <MOON Carver - Last Filed: 01/30/24 15:52> Eyes: Eyes: Reports as per HPI and Reports no additional eye complaints <MOON Carver - Last Filed: 01/30/24 15:52> ENT: Reports system reviewed and no additional complaints, except as documented and Reports as per HPI <MOON Carver - Last Filed: 01/30/24 15:52> Cardiovascular: Cardiovascular: Reports as per HPI and Reports no additional cardiovascular complaints <MOON Carver - Last Filed: 01/30/24 15:52> Respiratory: Respiratory: Reports as per HPI and Reports no additional respiratory complaints <MOON Carver - Last Filed: 01/30/24 15:52> Gastrointestinal: Gastrointestinal: Reports as per HPI and Reports no additional gastrointestinal complaints <MOON Carver - Last Filed: 01/30/24 15:52> Genitourinary: Genitourinary: Reports no additional female genitourinary complaints and Reports as per HPI <MOON Carver - Last Filed: 01/30/24 15:52> Musculoskeletal: Musculoskeletal: Reports no additional musculoskeletal complaints and Reports as per HPI <MOON Carver - Last Filed: 01/30/24 15:52> Integumentary/Breasts: Skin/Breast: Reports system reviewed and no additional complaints, except as docu and Reports as per HPI <MOON Carver - Last Filed: 01/30/24 15:52> Neurologic: Reports system reviewed and no additional complaints, except as documented and Reports as per HPI <MOON Carver - Last Filed: 01/30/24 15:52> Psychiatric: Psychiatric: Reports no additional psychiatric complaints and Reports as per HPI <MOON Carver - Last Filed: 01/30/24 15:52> PMF Past Medical History Medical History: Medical History Abdominal pain Acute pain of both hips Acute pain of both knees Amputation toe Anemia Arthritis of knee, degenerative BMI greater than 40 Carpal tunnel syndrome, bilateral Cellulitis of right foot Charcot ankle Chicken pox Chronic abdominal pain Chronic diarrhea Chronic pain Colon cancer screening 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 2 diabetes mellitus Diarrhea Ear ache Essential hypertension Fibromyalgia Flat foot [pes planus] (acquired), left foot Gastroparesis Heartburn Hernia History of DC (myocardial infarction) Hives Hypertension Hypothyroidism Left knee DJD Left shoulder pain Left wrist pain [facility] (current) use of insulin Lupus Microscopic colitis Non-pressure chronic ulcer of other part of unspecified foot limited to breakdown of skin Non-pressure chronic ulcer of right heel and midfoot with bone involvement without evidence of necrosis Numbness in both hands Obesity Other chronic pain Pain in left hand Peripheral arterial disease 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 Pes planus of both feet Pneumonia Polyneuropathy Polyneuropathy 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 Posterior tibial tendon dysfunction, left Pre-op evaluation Rheumatoid arthritis Rheumatoid arthritis of unspecified site with involvement of other organs and systems Rib pain on right side Right knee DJD Right wrist pain Rotator cuff tendonitis Sepsis Sore throat Thrombocytopenia Type 2 diabetes mellitus Type 2 diabetes mellitus with complication UTI (urinary tract infection) <MOON Carver - Last Filed: 01/30/24 15:52> Surgical History Surgical History: Surgical History Amputation of left great toe H/O foot surgery Poor historian- potential left posterior tibial tendon reconstruction Right foot charcot history? with surgery. History of carpal tunnel release History of hernia repair Hx of cholecystectomy <MOON Carver - Last Filed: 01/30/24 15:52> Family History Family History: Family History Father Hyperlipidemia Lung cancer Diabetes mellitus Mother Diabetes mellitus Other Family history of allergic disorder Hypertension <MOON Carver - Last Filed: 01/30/24 15:52> Social History Social History: Social History Social History: Patient quit tobacco in 1997 after smoking a pack a day for about 30 years. She denies drug use. She occasionally drinks alcohol. Still lives at home with her and brother. She is a full code. She nominated her daughter Elisha to be the individual make medical decisions for her if she is unable. Smoking packs per day: 1 Smoking cigarettes per day: 20.0 Years smoked: 29 Smoking pack-years: 29.00 Smoking status: Never smoker Tobacco type: cigarettes Smoking end date: 02/27/05 Alcohol intake: never Alcohol use details: occasionally Substance use: never Substance use type: does not use Do You Feel Safe in your Home?: Yes Lack of Transportation: No Lack of Food: Never True Current Housing: I Have Housing Concerned About Future Housing: No Difficulty Paying Gas/Electric Bills: No Difficulty Paying for Meds: No Currently Unemployed: No Education: High School Diploma/GED Difficulty w/ Childcare or Family Care: No Living arrangements: with family Gender identity (if verbalized by the patient): Female Spiritual care concerns: No <MOON Carver - Last Filed: 01/30/24 15:52> Meds Home Medications and Allergies Home medications: Home Medications Medication Instructions Recorded Confirmed Type cholecalciferol (vitamin D3) 125 5,000 unit PO DAILY 01/02/19 01/19/24 History mcg (5,000 unit) tablet multivitamin 1 tablet PO DAILY 01/02/19 01/19/24 History metoprolol succinate 25 mg 25 mg PO DAILY #90 tabs 05/14/19 01/19/24 Rx tablet,extended release 24 hr metformin 1,000 mg tablet 1,000 mg PO BID #180 tabs 04/14/20 01/19/24 Rx hydroxychloroquine 200 mg tablet 200 mg PO BID 05/06/20 01/19/24 History (Plaquenil) atorvastatin 40 mg tablet 40 mg PO HS 06/18/20 01/19/24 History calcium carbonate 1,200 mg PO DAILY 12/01/21 01/19/24 History ferrous sulfate 325 mg (65 mg 325 mg PO BID 12/01/21 01/19/24 History iron) tablet furosemide 20 mg tablet 20 mg PO DAILY 09/20/23 01/19/24 History aspirin 81 mg tablet,delayed 81 mg PO DAILY 10/17/23 01/19/24 History release esomeprazole magnesium 20 mg 20 mg PO DAILY 10/17/23 01/19/24 History capsule,delayed release (Nexium 24HR) fluticasone propionate 50 1 - 2 spray intranasal BID allergy 10/17/23 01/19/24 History mcg/actuation nasal symptoms spray,suspension (Allergy Relief (fluticasone)) glimepiride 4 mg tablet 4 mg PO DAILY 10/17/23 01/19/24 History insulin glargine U-300 conc 300 55 unit subcut HS 10/17/23 01/19/24 History unit/mL (1.5 mL) subcutaneous pen (Lucie SolAnton U-300 Insulin) omega-3 1,050 [id number] 1 cap PO BID 10/17/23 01/19/24 History oil 1,200 mg capsule gabapentin 300 mg capsule 300 mg PO BID #180 caps 10/18/23 01/19/24 Rx albuterol sulfate 90 mcg/actuation 2 puff inhalation Q4-6H PRN 11/29/23 01/19/24 Rx aerosol inhaler shortness of breath #18 grams magnesium oxide 400 mg (241.3 mg 400 mg PO DAILY 12/12/23 01/19/24 History magnesium) tablet isoniazid 300 mg tablet 300 mg PO DAILY 01/08/24 01/19/24 History levothyroxine 100 mcg tablet 100 mcg PO DAILY #90 tabs 01/16/24 01/19/24 Rx (Synthroid) amoxicillin 875 mg-potassium 1 tablet PO Q12H #19 tabs 01/22/24 Rx clavulanate 125 mg tablet apixaban 5 mg tablet (Eliquis) 5 mg PO Q12HR #60 tabs 01/22/24 Rx apixaban 5 mg tablet (Eliquis) 10 mg PO Q12HR #13 tabs 01/22/24 Rx doxycycline hyclate 100 mg tablet 100 mg PO Q12HR #13 tabs 01/22/24 Rx trazodone 50 mg tablet 50 mg PO QHS PRN insomnia #30 tabs 01/23/24 Rx duloxetine 20 mg capsule,delayed 20 mg PO DAILY #90 caps 01/26/24 Rx release <MOON Carver - Last Filed: 01/30/24 15:52> Allergies/Adverse reactions: Allergies Allergy/AdvReac Type Severity Reaction Status Date / Time daptomycin Allergy Intermediate Hives Verified 01/18/24 23:36 lisinopril Allergy Intermediate Cough Verified 01/18/24 23:36 trimethoprim Allergy Intermediate Itching Verified 01/18/24 23:36 valsartan Allergy Intermediate Hives Verified 01/18/24 23:36 vancomycin Allergy Intermediate Hives Verified 01/18/24 23:36 povidone-iodine Allergy Mild Hives Verified 01/18/24 23:36 [From Betadine] sulfadimethoxine AdvReac Intermediate Vomiting Verified 01/18/24 23:36 <MOON Carver - Last Filed: 01/30/24 15:52> Assessment and Plan Assessment and plan (1) Diabetic foot ulcer: Qualifiers: Diabetes mellitus type: type 2 Diabetic foot ulcer location: toe Laterality: right Non-pressure ulcer stage: with necrosis of muscle Qualified Code(s): E11.621 - Type 2 diabetes mellitus with foot ulcer; L97.513 - Non-pressure chronic ulcer of other part of right foot with necrosis of muscle <MOON Carver - Last Filed: 01/30/24 15:52> Code(s): E11.621 - Type 2 diabetes mellitus with foot ulcer; L97.509 - Non- pressure chronic ulcer of other part of unspecified foot with unspecified severity <MOON Carver - Last Filed: 01/30/24 15:52> Status: Acute <MOON Carver - Last Filed: 01/30/24 15:52> Assessment and Plan: Patient returns to the [facility] wound clinic for re-evaluation of right medial hallux wound which was recently evaluated in the hospital. To note, patient had a chronic ulcer of the right medial hallux which became acutely worse with impact injury to the right toe two weeks ago. Most likely increased swelling and pressure caused further loss of blood flow and necrosis. The wound continues to appear stable however she has new wounds on the lateral aspect of the plantar hallux. Questionable for ability to heal with peripheral arterial disease, diabetes and neuropathy. Today we reviewed the treatment options. Treatment options including amputation of the toe verses wound care and antibiotics with attempted salvage discussed in detail. Risks and benefits reviewed. All of her questions were answered. The patient would like to proceed with surgical intervention at this time with a right hallux amputation by Dr. Martinez. Condition, nature, etiology and course of natural history discussed. Conservative and operative treatment options reviewed as well as the risks and benefits of both. Plan: Right Hallux Amputation Continue daily wound care in the interim. Continue oral antibiotics to completion. Hold anticoagulation x2 days prior to surgery per Dr. Martinez. <MOON Carver - Last Filed: 01/30/24 15:52> (2) Cellulitis of great toe of right foot: Code(s): L03.031 - Cellulitis of right toe <MOON Carver - Last Filed: 01/30/24 15:52> Status: Acute <MOON Carver - Last Filed: 01/30/24 15:52> (3) Peripheral sensory neuropathy due to type 2 diabetes mellitus: Code(s): E11.42 - Type 2 diabetes mellitus with diabetic polyneuropathy <MOON Carver - Last Filed: 01/30/24 15:52> Status: Acute <MOON Carver - Last Filed: 01/30/24 15:52> (4) Peripheral arterial occlusive disease: Code(s): I77.9 - Disorder of arteries and arterioles, unspecified <AnisaMOON Alves - Last Filed: 01/30/24 15:52> Status: Acute <Anisa SchulteMOON sharma - Last Filed: 01/30/24 15:52> Assessment and Plan: Evaluation in [place] in 2020. Difficult problem with small-vessel disease at the ankle and distal. Discussed the very high risk for further loss of tissue and need for amputation. <AnisaRONAL AlvesP - Last Filed: 01/30/24 15:52> (5) Deep vein thrombosis (DVT) of right posterior tibial vein: Code(s): I82.441 - Acute embolism and thrombosis of right tibial vein <AnisaRONAL AlvesP - Last Filed: 01/30/24 15:52> Status: Acute <AnisaRONAL AlvesP - Last Filed: 01/30/24 15:52> Assessment and Plan: Patient was discharged on Eliquis. Patient to hold Eliquis x2 days prior to surgery. <AnisaRONAL ToledoP - Last Filed: 01/30/24 15:52> Assessment and Plan: Reviewed history, exam, radiographs and current labs with attending MD and covering surgeon, Dr. Martinez, who agrees with current plan as indicated above. No further recommendations from Dr. Martinez at this time. <RONAL CarverP - Last Filed: 01/30/24 15:52> Reviewed history, exam, radiographs and current labs with attending MD and covering surgeon, Dr. Martinez, who agrees with current plan as indicated above. No further recommendations from Dr. Martinez at this time. History, physical exam, medical record reviewed. Neuropathy and peripheral vascular disease with right hallux ulceration, nonhealing and now probing to bone. Patient desires amputation. She is status post amputation on left side with good results. Discussed nonoperative and operative treatment options with the patient. Risks and benefits of each as well as alternatives were reviewed. All of the patient's questions were answered. The risks of surgery reviewed including but not limited to: Neurovascular damage, wound complication, infection, blood clot, pulmonary embolus, stroke, myocardial infarction, and anesthetic risks up to and including . Continued pain and possible dysfunction were explained. Specific risks of the procedure including later recurrence of deformity. No guarantees were offered. If hardware used, discussed risk of failure/ breakage and possible need for removal. If complications occur, the patient understands the need for further treatment, possible further surgery. Patient verbalizes understanding and wishes to proceed. PLAN: Right hallux amputation <Caleb Martinez MD - Last Filed: 01/30/24 16:52>
== END 2024-04-15 09:05 | disposition home or self-care (01) ==
LOC: ANHWOC 07:36
PROVIDERS: PCP Internal Medicine; Visit Provider Orthopaedic Surgery
DX: L97.523 Non-pressure chronic ulcer of other part of left foot with necrosis of muscle (principal); S91.101A Unspecified open wound of right great toe without damage to nail, initial encounter
CPT/HCPCS: 99213; G0463

== ENCOUNTER 2024-02-01 12:19 | Outpatient (CLI) | payer OTHER, MEDICARE, BC, SELFPAY ==
[2024-02-01 13:03] LABS: Hematocrit 31.5 % (37.0-47.0); Hemoglobin 9.6 g/dL (12.0-15.0)
[2024-02-01 13:17] LABS: INR 1.1; Prothrombin Time 14.6 Seconds (11.1-14.7)
[2024-02-01 13:18] LABS: Partial Thromboplastin Time 30.8 Seconds (22.3-36.8)
== END 2024-02-01 12:20 | disposition home or self-care (01) ==
PROVIDERS: Anesthesiology; PCP Internal Medicine; Visit Provider Orthopaedic Surgery
DX: N18.9 Chronic kidney disease, unspecified (principal); D64.9 Anemia, unspecified
CPT/HCPCS: 36415; 85014; 85018; 85610; 85730

== ENCOUNTER 2024-02-02 02:04 | Day surgery (SDC) | payer OTHER, MEDICARE, BC, SELFPAY ==
[2024-01-31 11:09] VITALS: BMI 40.4
--- NOTE | 2024-01-31 11:29 | PC.NURSE ---
Report to the Outpatient Waiting Room, entrance under the green pavilion located off [facility], at time ___07:00am____ on date _02/02/24 . Planned Procedure Time: _09:00am .? Time changes happen often and if your time is changed the preop area will call you the afternoon before. - You and your visitor will be asked to self-screen and do not enter if you have any COVID symptoms. Please call surgeon if you need to reschedule. - A mask is optional within the hospital at this time. Patients may have clear liquids (water, carbonated beverages, clear teas, apple juice) until 3 hours prior to surgery with a maximum of 20 ounces. - No food from midnight until time of surgery and no smoking. This includes no chewing gum, candy or mints. (06:00am) Take only the following medications with a SIP of water on the morning of surgery: ___Metoprolol, and Inhaler as needed ( pt holding other am meds due to no food/upset stomach) DO NOT STOP ANY OF YOUR OTHER PRESCRIPTION MEDICATIONS PRIOR TO SURGERY EXCEPT THE FOLLOWING Medications to discontinue per physician Pt to hold Eliquis 48hrs prior per Dr. Martinez Pt to HOLD Aspirin for one week prior to surgery per Dr Martinez, pt took last dose on 01/26/24. Date to take last dose___01/29/24 per pt stopped it Hold all vitamins and supplements for 3 days prior per anesthesia, date to take last dose is 01/29/24. Please no make-up, nail libyan, hairspray, perfume, deodorant, or body powder the day of surgery.? No jewelry (including any body piercings) or valuables the day of surgery, leave them at home.? Please take a shower or bath the night before, or the morning of, surgery with an antibacterial soap.? Wear comfortable, loose fitting clothing.? Children are encouraged to wear pajamas. - Jewelry must be removed prior to entering the operating room.? Rings and piercings that are not removed may be cut off. - The hospital will not accept responsibility for valuables.? - Please leave all valuables, including medications, at home the day of surgery. If you are going home after surgery, a licensed dump truck driver must drive you home.? - NO public transportation without another adult if you receive anesthesia. - We recommend that an adult stay with you for 24 hours following discharge. - We also recommend that you do not drive, make important decision, drink alcoholic beverages, or take any drugs that were not prescribed by your health care provider for at least 24 hours after your discharge time. Follow any additional instructions given to you from your surgeon. Telephone instructions given to _Patient and asked if any additional questions and then verbalized understanding. Patient advised to call surgeon office or pre surgery nurse liaison [phone] if any additional questions.
[2024-02-02] VITALS (9 sets, daily range): BP systolic 98–164; BP diastolic 40–87; PULSE 80–100; RESP 14–20; TEMP 36.1–36.9; O2SAT 96–100
--- NOTE | ~2024-02-02 | XR_ITS ---
EXAMINATION: XR surgery orthopedic DATE: 02/02/2024 09:56 INDICATION: Right great toe diabetic ulcer. TECHNIQUE: 3 intraoperative fluoroscopic views of right foot were obtained. I was not present. Fluoro scopy exposure time was 16 seconds. COMPARISON: Right foot radiographs 01/18/2024 FINDINGS: There is amputation of the first ray of the head of the metatarsal. IMPRESSION: 1. Amputation of the first ray at the head of the metatarsal. Reviewed, dictated and finalized at location A. [facility]
[2024-02-02 07:31] LABS: Glucose Point of Care 191 mg/dl (65-105)
--- NOTE | 2024-02-02 07:55 | WPDANESEPPF ---
Anes - Initial Pre Proc Eval Procedure: Operation Date: 02/02/24 09:00 Proposed Procedures p Right First Ray Amputation - Caleb Martinez MD Date/Time: 02/02/24 07:55 Surgeon: Caleb Martinez MD Pre Op Diagnosis: Rt 1st Ray Diabetic Foot ulcer Patient Data Age: 73 Gender: F Height: 1.55 m Weight: 95.8 kg Last Vital Signs Temp 36.1 C L 02/02/24 07:30 Pulse 100 02/02/24 07:30 Resp 14 02/02/24 07:30 BP 137/63 02/02/24 07:30 Pulse Ox 96 02/02/24 07:30 O2 Del Method Room Air 02/02/24 07:30 Allergies Allergy/AdvReac Type Severity Reaction Status Date / Time daptomycin Allergy Intermediate Hives Verified 02/02/24 07:45 lisinopril Allergy Intermediate Cough Verified 02/02/24 07:45 trimethoprim Allergy Intermediate Itching Verified 02/02/24 07:45 valsartan Allergy Intermediate Hives Verified 02/02/24 07:45 vancomycin Allergy Intermediate Hives Verified 02/02/24 07:45 povidone-iodine Allergy Mild Hives Verified 02/02/24 07:45 [From Betadine] sulfadimethoxine AdvReac Intermediate Vomiting Verified 02/02/24 07:45 Home Medications Medication Instructions Recorded Confirmed Type cholecalciferol (vitamin D3) 125 5,000 unit PO DAILY 01/02/19 01/31/24 History mcg (5,000 unit) tablet multivitamin 1 tablet PO DAILY 01/02/19 01/31/24 History metoprolol succinate 25 mg 25 mg PO DAILY #90 tabs 05/14/19 01/31/24 Rx tablet,extended release 24 hr metformin 1,000 mg tablet 1,000 mg PO BID #180 tabs 04/14/20 02/02/24 Rx hydroxychloroquine 200 mg tablet 200 mg PO BID 05/06/20 01/31/24 History (Plaquenil) atorvastatin 40 mg tablet 40 mg PO HS 06/18/20 01/31/24 History calcium carbonate 1,200 mg PO DAILY 12/01/21 01/31/24 History ferrous sulfate 325 mg (65 mg 325 mg PO BID 12/01/21 01/31/24 History iron) tablet furosemide 20 mg tablet 20 mg PO DAILY 09/20/23 01/31/24 History aspirin 81 mg tablet,delayed 81 mg PO DAILY 10/17/23 01/31/24 History release esomeprazole magnesium 20 mg 20 mg PO DAILY 10/17/23 01/31/24 History capsule,delayed release (Nexium 24HR) fluticasone propionate 50 1 - 2 spray intranasal BID allergy 10/17/23 01/31/24 History mcg/actuation nasal symptoms spray,suspension (Allergy Relief (fluticasone)) glimepiride 4 mg tablet 4 mg PO DAILY 10/17/23 01/31/24 History insulin glargine U-300 conc 300 55 unit subcut HS 10/17/23 01/31/24 History unit/mL (1.5 mL) subcutaneous pen (Micheleuelise SoloStar U-300 Insulin) omega-3 1,050 [id number] 1 cap PO BID 10/17/23 01/31/24 History oil 1,200 mg capsule gabapentin 300 mg capsule 300 mg PO BID #180 caps 10/18/23 01/31/24 Rx albuterol sulfate 90 mcg/actuation 2 puff inhalation Q4-6H PRN 11/29/23 01/31/24 Rx aerosol inhaler shortness of breath #18 grams magnesium oxide 400 mg (241.3 mg 400 mg PO DAILY 12/12/23 01/31/24 History magnesium) tablet isoniazid 300 mg tablet 300 mg PO DAILY 01/08/24 01/31/24 History levothyroxine 100 mcg tablet 100 mcg PO DAILY #90 tabs 01/16/24 01/31/24 Rx (Synthroid) amoxicillin 875 mg-potassium 1 tablet PO Q12H #19 tabs 01/22/24 01/31/24 Rx clavulanate 125 mg tablet apixaban 5 mg tablet (Eliquis) 5 mg PO Q12HR #60 tabs 01/22/24 01/31/24 Rx trazodone 50 mg tablet 50 mg PO QHS PRN insomnia #30 tabs 01/23/24 01/31/24 Rx duloxetine 20 mg capsule,delayed 20 mg PO DAILY #90 caps 01/26/24 01/31/24 Rx release Laboratory Tests 02/02/24 07:28 POC Capillary Glucose 191 H mg/dl (65-105) Patient hx anesthesia problems: none Family hx anesthesia problems: none Results Review: All pre-operative results and documents have been reviewed as part of the pre-operative evaluation. [facility] Past Medical History Medical History Abdominal pain Acute pain of both hips Acute pain of both knees Amputation toe Anemia Arthritis of knee, degenerative BMI greater than 40 Carpal tunnel syndrome, bilateral Cellulitis of right foot Charcot ankle Chicken pox Chronic abdominal pain Chronic diarrhea Chronic pain Colon cancer screening 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 2 diabetes mellitus Diarrhea Ear ache Essential hypertension Fibromyalgia Flat foot [pes planus] (acquired), left foot Gastroparesis Heartburn Hernia History of CO (myocardial infarction) Hives Hypertension Hypothyroidism Left knee DJD Left shoulder pain 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 Lupus Microscopic colitis Non-pressure chronic ulcer of other part of unspecified foot limited to breakdown of skin Non-pressure chronic ulcer of right heel and midfoot with bone involvement without evidence of necrosis Numbness in both hands Obesity Other chronic pain Pain in left hand Peripheral arterial disease 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 Pes planus of both feet Pneumonia Polyneuropathy Polyneuropathy 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 Posterior tibial tendon dysfunction, left Pre-op evaluation Rheumatoid arthritis Rheumatoid arthritis of unspecified site with involvement of other organs and systems Rib pain on right side Right knee DJD Right wrist pain Rotator cuff tendonitis Sepsis Sore throat Thrombocytopenia Type 2 diabetes mellitus Type 2 diabetes mellitus with complication UTI (urinary tract infection) Surgical History Surgical History Amputation of left great toe H/O foot surgery Poor historian- potential left posterior tibial tendon reconstruction Right foot charcot history? with surgery. History of carpal tunnel release History of hernia repair Hx of cholecystectomy Family History Family History Father Hyperlipidemia Lung cancer Diabetes mellitus Mother Diabetes mellitus Other Family history of allergic disorder Hypertension Social History Social History Social History: Patient quit tobacco in 1997 after smoking a pack a day for about 30 years. She denies drug use. She occasionally drinks alcohol. Still lives at home with her and brother. She is a full code. She nominated her daughter Elisha to be the individual make medical decisions for her if she is unable. Smoking packs per day: 1 Smoking cigarettes per day: 20.0 Years smoked: 29 Smoking pack-years: 29.00 Smoking status: Former smoker Tobacco type: cigarettes Smoking end date: 02/27/97 Alcohol intake: never Alcohol use details: occasionally Substance use: never Substance use type: does not use Do You Feel Safe in your Home?: Yes Lack of Transportation: No Lack of Food: Never True Current Housing: I Have Housing Concerned About Future Housing: No Difficulty Paying Gas/Electric Bills: No Difficulty Paying for Meds: No Currently Unemployed: No Education: High School Diploma/GED Difficulty w/ Childcare or Family Care: No Living arrangements: with family Additional living arrangements comments: Gender identity (if verbalized by the patient): Female Spiritual care concerns: No Anes - Eval Final PreProcedure Day of Procedure 02/02/24 07:55 Patient weight: morbidly obese Heart: regular rate and rhythm Lungs: decreased breath sounds Airway: Mallampati scale class II Neurological: alert and oriented Last oral intake: >/= 8 hours ASA classification: IV Emergent: no Anesthetic plan: proceed Anesthesia type and monitoring: general LMA and standard monitoring Results Review: All pre-operative results and documents have been reviewed as part of the pre-operative evaluation. Informed Consent: The patient's anesthetic plan and its attendant risks and benefits were discussed with the patient/family/POA. Questions were solicited and answers provided to the satisfaction of the patient/family/POA.
--- NOTE | 2024-02-02 08:16 | WPDHPUPDATE1 ---
History and Physical Update Update Date/Time: 02/02/24 08:16 History and Physical has been reviewed, including an updated exam of the patient. There are NO changes in the patient's condition. Risks, benefits, and alternatives have been discussed and questions answered. Patient agrees to proceed with procedure.
[2024-02-02] MEDS: LACTATED RINGERS 1,000 ML 30 ML IV CONT (08:30)
[2024-02-02] MEDS: ceFAZolin 2 GM/D5W 50 ML 2 GM/50 ML BAG IVPB (08:49)
[2024-02-02] MEDS: BUPivacaine HCL 0.5% 10 ML AMP INFILTRATE (09:51)
[2024-02-02 10:08] LABS: Glucose Point of Care 202 mg/dl (65-105)
[2024-02-02] MEDS: INSULIN HUMAN REGULAR (*BKC) 100 UNITS/ML 6 UNITS SUB-Q (10:13)
[2024-02-02] MEDS: ONDANSETRON INJ 4 MG/2 ML VIAL IV PUSH (10:26)
[2024-02-02] MEDS: diphenhydrAMINE HCl INJ 50 MG/ML VIAL 25 MG IV PUSH ×2 (10:31→11:33)
--- NOTE | 2024-02-02 10:33 | P.OP_ITS ---
Procedure Note - Detailed Date of Procedure 02/02/24 Pre-op Diagnosis Rt 1st Ray Diabetic Foot ulcer Post-op Diagnosis Same Procedure Performed Right hallux amputation Surgeon Caleb Martinez MD Wringer Operator 1st speech language pathology assistant Anesthesia General Indications 73-year-old with neuropathy, diabetes, peripheral vascular disease and renal failure with right hallux ulcer with bone exposure. Unable to heal the ulcer. Presents for operative treatment. Findings Quarter-sized ulcer on medial aspect of the hallux which communicates with bone. Description of Procedure Patient identified in the preoperative holding. Informed consent given. Operative extremity marked. Patient received intravenous antibiotics. Patient brought to the operating room where underwent general anesthetic by anesthesia team. Positioned supine on operating room table. Time-out performed confirming the patient, site of the surgery and the plan. Right foot prepped and draped in usual sterile surgical fashion using Betadine prep solution. There was an ulcer over the dorsal medial aspect of the hallux which revealed full-thickness necrosis with exposed bone of the proximal phalanx. No ability to heal the woun d and no soft tissue coverage of the bone, amputation of the hallux was indicated. Fifteen blade knife used to make fishmouth shaped incision at the base of the hallux. Hemostasis controlled with electrocautery. Joint incised circumferentially with a 15 blade knife and hallux removed and passed off the table. Thorough irrigation done. Articular surface of the metatarsal head removed with a rongeur and smoothed. Wound thoroughly irrigated again. Medial sesamoid inspected and noted to be degenerative as well as prominent. The medial sesamoid was sharply excised from the surrounding soft tissue. Wound irrigated with saline. Image intensification brought in and confirmed our amputation resection level and alignment. Wound closed with 3 0 Monocryl interrupted suture for the deep tissue, 3 O Monocryl interrupted suture for the subcutaneous tissue and 4 O nylon interrupted sutures for the skin. Sterile dressings applied. Patient awoke from anesthesia, extubated and taken to the r ecovery room in stable condition. All sponge needle and instrument counts correct at the end the case. Estimated Blood Loss 10 Tourniquet Time Total Tourniquet Time: 3 Drains No Packing No Pathology Yes ( hallux specimen) Complications None Condition Stable Disposition PACU [facility] Billing Surgery - Charge Forward: Surgery Billing ([id number])
--- NOTE | 2024-02-02 10:34 | SUR.PHASEI ---
1025: patient c/o itching all over arms/hands. Scratching repeatedly. Does not appear to be in any other distress. No allergens have been administered. Dr. Hurtado notified. new orders received. Benadryl given ivp.
[2024-02-02 11:41] LABS: Glucose Point of Care 217 mg/dl (65-105)
[2024-02-02] MEDS: LORATADINE 10 MG TABLET PO (11:43)
== END 2024-02-02 13:05 | disposition home or self-care (01) ==
PROVIDERS: PCP Internal Medicine; Visit Provider Orthopaedic Surgery
PROC: (CPT 28820; principal; 2024-02-02 09:00)
DX: E11.621 Type 2 diabetes mellitus with foot ulcer (principal); L97.518 Non-pressure chronic ulcer of other part of right foot with other specified severity; D64.9 Anemia, unspecified; I10 Essential (primary) hypertension; E03.9 Hypothyroidism, unspecified; M17.0 Bilateral primary osteoarthritis of knee; L93.0 Discoid lupus erythematosus; D69.6 Thrombocytopenia, unspecified; G56.03 Carpal tunnel syndrome, bilateral upper limbs; G89.29 Other chronic pain; R10.9 Unspecified abdominal pain; K52.9 Noninfective gastroenteritis and colitis, unspecified; I25.2 Old myocardial infarction; K52.839 Microscopic colitis, unspecified; I77.9 Disorder of arteries and arterioles, unspecified; G60.8 Other hereditary and idiopathic neuropathies; G62.9 Polyneuropathy, unspecified; M06.9 Rheumatoid arthritis, unspecified; E66.01 Morbid (severe) obesity due to excess calories; Z68.39 Body mass index [BMI] 39.0-39.9, adult; Z79.82 Long term (current) use of aspirin; Z79.4 Long term (current) use of insulin; Z79.01 Long term (current) use of anticoagulants; Z79.84 Long term (current) use of oral hypoglycemic drugs; Z98.890 Other specified postprocedural states; Z90.49 Acquired absence of other specified parts of digestive tract; Z87.891 Personal history of nicotine dependence; Z80.1 Family history of malignant neoplasm of trachea, bronchus and lung
CPT/HCPCS: 28820; 82948; 88305; 88311; 99199; A9270; J0690; J1200; J1815; J2003; J2405; J2704; J3010; J7120

== ENCOUNTER 2024-03-01 09:47 | Outpatient (CLI) | payer OTHER, MEDICARE, BC, SELFPAY ==
[2024-03-01 10:25] LABS: Basophils Percent Auto 0.5 % (0.2-1.2); Eosinophils Absolute Auto 0.3 K/mm3 (0-0.3); Eosinophils Percent Auto 3.8 % (0-4.4); Hematocrit 27.4 % (37.0-47.0); Hemoglobin 8.4 g/dL (12.0-15.0); Immature Granulocyte Absolute 0.02 K/mm3 (0.00-0.031); Immature Granulocyte Percent A 0.3 % (0-0.5); Lymphocytes Absolute Auto 1.25 K/mm3 (0.9-3.2); Mean Corpuscular HGB Conc 30.7 g/dl (32-36); Mean Corpuscular Hemoglobin 26.3 pg (26-34); Mean Corpuscular Volume 85.9 fl (80-100); Mean Platelet Volume 12.6 fl (7.4-10.4); Monocytes Absolute Auto 0.5 K/mm3 (0.1-0.6); Monocytes Percent Auto 7.6 % (2.6-8.5); Neutrophils Absolute Auto 4.5 K/mm3 (1.3-6.7); Neutrophils Percent Auto 68.8 % (45.5-73.1); Platelet Count Result 146 k/mm3 (150-375); Red Blood Count 3.19 M/mm3 (4.2-5.4); Red Cell Distribution Width 16.9 % (11.5-14.5); White Blood Count 6.6 K/mm3 (4.5-10.0)
[2024-03-01 10:34] LABS: Alanine Aminotransferase 50 U/L (6-35); Albumin Level 3.2 g/dL (3.5-5.1); Alkaline Phosphatase 171 U/L (38-126); Anion Gap -1 mmol/L (4-12); Aspartate Amino Transferase 92 U/L (14-36); Bilirubin,Total 0.4 mg/dL (0.2-1.3); Blood Urea Nitrogen 34 mg/dL (7-17); Calcium 8.5 mg/dL (8.4-10.2); Carbon Dioxide 29 mmol/L (22-30); Chloride 106 mmol/L (98-107); Estimated Glomerular Filt Rate 34; Glucose 199 mg/dL (65-110); Potassium 5.1 mmol/L (3.4-5.0); Sodium 134 mmol/L (137-145)
[2024-03-01 10:56] LABS: Add Urine Microscopic? YES; Appearance Urine Turbid (Clear); Bacteria Urine 4+ /hpf; Bilirubin Urine Negative (Negative); Blood Urine 1+ (Negative); Color Urine Yellow (Yellow); Glucose Urine UA Negative (Negative); Ketones Urine Trace mg/dL (Negative); Leukocyte Esterase Ur 3+ LEU/UL (Negative); Need Manual Microscopic Reviewed; Nitrate Urine Negative (Negative); Protein Urine 3+ mg/dL (Negative); RBC Urine 0-2 /hpf (0-2); Specific Grav Ur 1.017 (1.001-1.035); Squamous Epithelial Cell Urine Few /hpf (Few); Urobilinogen Urine 0.2 mg/dL (<2.0); WBC Urine >100 /hpf (0-3); pH Urine 5.5 (5.0-9.0)
== END 2024-03-01 09:48 | disposition home or self-care (01) ==
LOC: ANHLAB 09:50
PROVIDERS: PCP Internal Medicine; Visit Provider Clinical Nurse Specialist
DX: D64.9 Anemia, unspecified (principal); I10 Essential (primary) hypertension; D69.6 Thrombocytopenia, unspecified; N39.0 Urinary tract infection, site not specified
CPT/HCPCS: 36415; 80053; 81001; 85025; 87077; 87086; 87186

== ENCOUNTER 2024-03-11 14:21 | Outpatient (CLI) | payer OTHER, MEDICARE, BC, SELFPAY ==
--- NOTE | ~2024-03-11 | MR_ITS ---
EXAMINATION: MR shoulder LT wo con DATE: 03/11/2024 15:17 INDICATION: Left shoulder pain post multiple falls TECHNIQUE: Magnetic resonance imaging (MRI) of the left shoulder was performed without intravenous co ntrast. Sequences included axial PD-weighted FS FSE, coronal oblique PD-weighted FS FSE, coronal obli que T2-weighted FS FSE, sagittal PD-weighted FS FSE, and sagittal T1-weighted SE. COMPARISON: None. FINDINGS: Coracoacromial arch: The acromion undersurface is curved in morphology (type II). Small to moderate-sized anterior subacro mial spurs. Severe acromioclavicular osteoarthritis with moderate-sized inferiorly directed osteophyt es. Rotator cuff: Complete tear and approximately 1.5 cm medial retraction of the distal subscapularis tendon from its lesser tuberosity insertion. Moderate tendinopathy of the retracted tendon. The more inferior muscula r insertion of the subscapularis tendon remains intact. The tear extends posteriorly across the rotat or cuff interval to involve the anterior two thirds of the supraspinatus tendon. The tear occurs at t he critical zone approximately 2 cm from the superior facet footplate and measures up to 1 cm medial to lateral. There is partial thickness articular sided tear of the posterior most portion of the supr aspinatus tendon contributing to the conjoined supraspinatus and infraspinatus tendons. There is mode rate tendinopathy of the supraspinatus tendon on either side of the tear. Mild infraspinatus tendinop athy without tear. The teres minor tendon is normal. There is moderate fatty atrophy of the supraspin atus and subscapularis muscle bellies. The teres minor and infraspinatus muscle bellies remain normal . Biceps tendon, glenoid labrum and glenohumeral cartilage: Full-thickness tear of the long head biceps tendon which is retracted below the level of the intertub ercular groove. There are tears of the posterior superior and anteroinferior glenoid labrum. Glenohum eral cartilage remains normal. Fluid: Small glenohumeral joint effusion which extends to the full-thickness rotator cuff tear into the suba cromial/subdeltoid bursa. There is synovitis at the axillary recess. No loose osteochondral bodies. Bones: Small low signal intensity bone island at the humeral head. Normal marrow signal with no fracture or pathologic marrow replacing process. There are mild cystic and hypertrophic change at both the lesser and greater tuberosities likely related to chronic rotator cuff disease. IMPRESSION: 1. Full-thickness tear of the distal subscapularis tendon which extends posteriorly across rotator cu ff interval to involve the anterior two thirds of the supraspinatus tendon which are likely chronic g iven the moderate associated fatty muscular atrophy. 2. Full-thickness tear and distal retraction of the long head biceps tendon. 3. Tears of the posterosuperior and anteroinferior glenoid labrum. 4. Severe left acromioclavicular osteoarthritis. Reviewed, dictated and finalized at location B. [facility] [employer] IMPRESSION: 1. Full-thickness tear of the distal subscapularis tendon which extends posteri de across rotator cuff interval to involve the anterior two thirds of the sup raspinatus tendon which are likely chronic given the moderate associated fatty muscular atrophy. 2. Full-thickness tear and distal retraction of the long head biceps tendon. 3. Tears of the posterosuperior and anteroinferior glenoid labrum. 4. Severe left acromioclavicular osteoarthritis.
== END 2024-03-11 14:22 | disposition home or self-care (01) ==
PROVIDERS: PCP Internal Medicine; Visit Provider Anesthesiology Pain Medicine
DX: M75.42 Impingement syndrome of left shoulder (principal); M19.012 Primary osteoarthritis, left shoulder
CPT/HCPCS: 73221

== ENCOUNTER 2024-04-04 15:09 | Outpatient (CLI) | payer OTHER, MEDICARE, BC, SELFPAY ==
--- NOTE | ~2024-04-04 | US_ITS ---
EXAMINATION: US venous doppler LE RT DATE: 04/04/2024 15:50 INDICATION: Acute thrombosis of the right posterior tibial vein TECHNIQUE: Grayscale ultrasound images without and with compression and Doppler ultrasound images of the right lower extremity veins were obtained. COMPARISON: 01/21/2024 FINDINGS: The visualized portions of right common femoral vein, profunda (deep) femoral vein, femoral vein, pop liteal vein, peroneal trunk, posterior tibial veins, peroneal veins, gastrocnemius vein and greater s aphenous vein outflow are all now patent. IMPRESSION: 1. Resolution of prior right tibial venous thrombosis. No deep venous thrombosis in the right lower l imb. Reviewed, dictated and finalized at location A. TURE AND ROTOR WINDER IMPRESSION: 1. Resolution of prior right tibial venous thrombosis. No deep venous thrombosi s in the right lower limb.
--- OUTSIDE RECORDS SUMMARY | 2024-04-04 15:18 | XMS_ITS | Clinical Summary ---
Author Organization [facility] Address [address] [facility], [place] [address] Phone Care Team Providers Care Plater Helper Name Role Phone Charles Armendariz DO Primary Care Provider Allergies Active Allergy Reactions Criticality Noted Date Comments Vancomycin Hives 11/05/2015 Medications hydroxychloroqu ine (PLAQUENIL) 200 MG Tablet 2 times daily. A ctive aspirin EC 81 MG Tablet Delayed Response daily. Active atenolol (TENORMIN) 25 MG Tablet 25 mg daily. Active Calcium Carbonate (CALCIUM OYSTER SHELL PO) 2 times daily. Activ e cyclobenzaprine (FLEXERIL) 10 MG Tablet 10 mg nightly. Activ e ETHIN ESTRADIOL-NORET HIND MICHEAL (JINTELI) 1-5 MG-MCG Tablet daily. Active levothyroxine (SYNTHROID) 50 MCG Tablet daily. Active metFORMIN (GLUCOPHAGE) 1000 MG Tablet 2 times daily. Active Montelukast Sodium Powder Apply topically every 3 days 10MG Active Multiple Vitamins-Minera ls (MULTIPLE VITAMINS/WOMENS ) Tablet daily. Active esomeprazole (NEXIUM) 40 MG CAPSULE DELAYED RELEASE daily. Active Saxagliptin HCl (ONGLYZA) 5 MG Tablet daily. Active predniSONE (DELTASONE) 10 MG Tablet Take 1 1/2 tabs po daily x 1 week then decrease to 1 tab po daily Active predniSONE (DELTASONE) 5 MG Tablet daily. Use as directed. Active albuterol (PROVENTIL HFA, VENTOLIN HFA) 108 (90 BASE) MCG/ACT Aerosol Solution take 2 Puffs by inhalation every 4 hours as needed for Wheezing. 8.5 g 4 09/08/201 6 Active predniSONE (DELTASONE) 20 MG Tablet Take 1 Tab by mouth daily. [id number] 1 Tab 0 6 Active azithromycin (ZITHROMAX) 250 MG Tablet 2 tab(s) daily for 1 day, then 1 tab(s) daily for days 2-5. 6 Tab 0 6 Active budesonide-form oterol fumarate (SYMBICORT) 160-4.5 MCG/ACT Aerosol take 2 Puffs by inhalation 2 times daily. 3 Inhaler 2 6 Active montelukast (SINGULAIR) 10 MG Tablet TAKE 1 TABLET EVERY EVENING 90 Tab 3 0 Active Active Problems Problem Noted Date Diagnosed Date Mild intermittent asthma without complication Obesity due to excess calories 11/05/2015 Sjogren's syndrome Overview (01/05/2015): Pt has Sjogrens syndrome . positive SSB antibody . also has significantly elevated lefts and mildly elevated aldolase. muscle strength decreased to 4/5 in upper ad lower extremities. has had emg/ncs in the past . dont have records of that but per patient did not sow anything significant . still need to rule out myositis and liver involvement like biliary cirrhosis etc . patient does not tolerate even 10 mg of prednsione as she is a diabetic. will put her on 5 mg of prednsione for now . will also start plaquneil side effects discussed . advised to call [facility] and make an early appt as soon as possible so that the rest of the work up can be completed there . get copy of emg/ncs. Arthralgia Fibromyalgia Muscle spasm Muscle, ligament, or fascia disorder Overview (01/05/2015): Mu Social History Tobacco Use Types Packs/Day Years Used Date Smoking Tobacco: Former Smokeless Tobacco: Never Alcohol Use Standard Drinks/Week Comments No 0 (1 standard drink = 0.6 oz pur e alcohol) Comments No Sex and Gender Information Value Date Recorded Sex Assigned at Not on file Legal Sex Female 11:47 PM CDT Gender Identity Not on file Sexual Orientation Not on file Last Filed Vital Signs Vital Sign Reading Time Taken Comments Blood Pressure 124/68 11/05/2015 11:25 AM CDT Pulse 82 11/05/2015 11:25 AM CDT Temperature 36.9 C (98.4 F) 11/05/2015 11:25 AM CDT Respiratory Rate - - Oxygen Saturation 93% 11/05/2015 11:25 AM CDT Inhaled Oxygen Concentration - - Weight 101.2 kg (223 lb) 11/05/2015 11:25 AM CDT Height 161.3 cm (5' 3.5 ) 11/05/2015 11:25 AM CD T Body Mass Index 38.88 11/05/2015 11:25 AM CDT Plan of Treatment Health Maintenance Due Date Last Done Comments Hepatitis C Virus (HCV) Screening 1950 Pneumococcal Immunization (50+ years) (1 of 2 - PCV) 06/20/1971 Zoster Immunization (1 of 2) 06/20/1971 Colonoscopy 1997 Colorectal Cancer Screening 1997 Cologuard 2002 Immunochemical Fecal Occult Blood 2002 Mammogram 2002 Respiratory Syncytial Virus (RSV) Immunization (Adult) (1 - Risk 60-74 years 1-dose series) 2012 DEXA Bone Density 09/24/2023 09/23/2021 Influenza Immunization (#1) 10/29/20230 10/2022, 12/09/2019, 05/27/2015, Additional history exists SARS-COV-2 Immunization ( season) 2023 09/28/2021, 03/22/2021, 06/10/2020, Additional history exists DTaP/Tdap/Td Immunization Discontinued 09/14/2021 TdaP Immunization Completed 09/14/2021 Hepatitis B Immunization Aged Out No longer eligible based on patient's age to complete this topic Meningococcal Immunization (ACWY) Aged Out No longer eligible based on patient's age to complete this topic Rotavirus Immunization Aged Out No lo nger eligible based on patient's age to complete this topic Insurance MEDICARE [facility] Care Teams Plater Helper Relationship Specialty Start Date End Date Charles Armendariz DO [address] [place] [address] PCP - General Internal Medicine 11/05/15
--- OUTSIDE RECORDS SUMMARY | 2024-04-04 15:18 | XMS_ITS | Clinical Summary ---
Author Organization [facility] Address [address] [place] [address] Care Team Providers Care Relations Director Name Role Phone Tammy Arroyo RN Unavailable [phone] Charles Armendariz DO Primary Care Provider [phone] Source Comments [facility],non-owned Affiliates and Associated Physician Practices is amultiple site organization consisting of ambulatory clinics and hospital sitesin [place], [place], [place] and [place]. This disclosure is being madepursuant to the Care Everywhere program and may not contain all information available regarding this patient. Last updated 17.[facility] Allergies Active Allergy Reactions Criticality Noted Date Comments Povidone Iodine Rash Medium 05/05/2017 Valsartan Urticaria Medium 03/30/2017 Vancomycin Urticaria Medium 11/05/2015 Medications * Be aware that medications may not be up to date on this document. Alwaysverify current medications with the patient. Medication Sig Dispensed Refills Start Date End Date Status montelukast (SINGULAIR) 10 MG tablet Take 10 mg by mouth once daily Active fluticasone propionate (FLONASE) 50 MCG/ACT nasal spray Evans 2 Sprays into each nostril once daily Active metFORMIN (GLUCOPHAGE) 1000 MG tablet Take 1,000 mg by mouth 2 times daily with morning and evening meal Active insulin lispro (HUMALOG) 100 UNIT/ML penIndications:Typ e 2 Diabetes Mellitus Inject 12 Units subcutaneously 3 times daily before meals Reasons: Type 2 Diabetes Active insulin glargine (LANTUS) pen Inject 60 Units subcutaneously at bedtime Active levothyroxine (SYNTHROID) 100 MCG tablet Take 100 mcg by mouth daily before breakfast Activ e aspirin (ASPIRIN) 81 MG chew tablet Take 81 mg by mouth every evening Active esomeprazole (NEXIUM) 20 MG capsule Take 22.3 mg by mouth daily before breakfast Activ e vitamin D3 (CHOLECACIFEROL) 5000 UNITS Take 5,000 Units by mouth once daily Active albuterol HFA (PROVENTIL;VENTOLI N;PROAIR) 108 (90 BASE) MCG/ACT inhaler Inhale 2 Puffs by mouth every 6 hours as needed Active fish oil/omega-3 fatty acids (PROMEGA;CARDI-OME GA 3) 1000 MG capsule Take 1,000 mg by mouth 2 times daily with morning and evening meal Active hydroxychloroquine (PLAQUENIL) 200 MG tablet Take 200 mg by mouth 2 times daily Active multivitamin daily (THERAGRAN) tablet Take 1 Tab by mouth daily with food Active furosemide (LASIX) 20 MG tablet Take 20 mg by mouth once daily Active DULoxetine (CYMBALTA) 30 MG capsule Take 30 mg by mouth once daily Active metoprolol tartrate (LOPRESSOR) 25 MG tablet Take 25 mg by mouth once daily Active atorvastatin (LIPITOR) 40 MG tablet Take 40 mg by mouth at bedtime Active gabapentin (NEURONTIN) 600 MG tablet Take 600 mg by mouth 3 times daily Active methotrexate 2.5 MG tablet Take 4 tablets by mouth 02/28/2017 Active Active Problems No known active problems Immunizations Name Administration Dates Next Due INFLUENZA VACCINE, QUADR. (F LUZONE; FLULAVAL; FLUARIX; AFLURIA QUADRIVALENT; 6MO+), 0.5 ML (IIV4) 05/27/2015 Family History Medical History Relation Name Comments Cancer - Lung Father Diabetes - Type 1 Father Cancer - Stomach Maternal Grandmother Diabetes - Type 1 Maternal Grandmother Diabetes - Type 1 Mother Relation Name Status Comments Father Maternal Grandmother Mother Social History Tobacco Use Types Packs/Day Years Used Date Smoking Tobacco: Never Smokeless Tobacco: Never Alcohol Use Standard Drinks/Week Comments No 0 (1 standard drink = 0.6 oz pur e alcohol) less than one/month Sex and Gender Information Value Date Recorded Sex Assigned at Not on file Gender Identity Not on file Sexual Orientation Not on file Last Filed Vital Signs Vital Sign Reading Time Taken Comments Blood Pressure 122/58 07/01/2016 3:25 PM CDT Pulse 87 07/01/2016 3:25 PM CDT Temperature 36.9 C (98.5 F) 07/01/2016 3:25 PM CDT Respiratory Rate 20 07/01/2016 3:25 PM CDT Oxygen Saturation 98% 07/01/2016 3:25 PM CDT Inhaled Oxygen Concentration 21% 05/29/2015 5 :38 PM CDT Weight 105.7 kg (233 lb) 05/05/2017 6:48 AM GARLAND MACHINE OPERATOR Height 161.3 cm (5' 3.5 ) 05/05/2017 6:48 AM GARLAND MACHINE OPERATOR Body Mass Index 40.63 05/05/2017 6:48 AM GARLAND MACHINE OPERATOR Plan of Treatment Health Maintenance Due Date Last Done Comments BONE DENSITY TESTING 1950 COLOGUARD (AGES 45-75) - COL ON CA SCREENING 1952 COLON MONITORING 1952 COLONOSCOPY - COLON CA SCREENING 1952 CT COLONOGRAPHY - COLON CA SCREENING 1950 Colorectal Cancer Screening 1950 FIT - COLON CA SCREENING 1952 FLEX SIG - COLON CA SCREENING 1950 MAMMOGRAM 1950 MEDICARE AWV 12 MONTHS 1950 HEPATITIS C SCREENING 06/15/1970 DTAP/TDAP/TD VACCINES (1 - Tdap) 06/20/1971 PNEUMOCOCCAL VACCINE 50+ (1 of 1 - PCV) 2002 ZOSTER VACCINE (1 of 2) 2002 Respiratory Syncytial Virus (RSV) Vaccine Pt: or over 60 yrs (1 - Risk 60-74 years 1-dose series) 2012 COVID-19 VACCINE ( - 2023-2 5 season) 2023 INFLUENZA VACCINE (#1) 2023 05/27/2015 DEPRESSION SCREENING 02/28/2024 HEPATITIS B VACCINE Aged Out No longe r eligible based on patient's age to complete this topic HIB VACCINE Aged Out No longer eligi ble based on patient's age to complete this topic HPV VACCINE Aged Out No longer eligi ble based on patient's age to complete this topic MENINGOCOCCAL (Group B) VACCINE Aged Out No longer eligible based on patient's age to complete this topic MENINGOCOCCAL VACCINE Aged Out No margoth andre eligible based on patient's age to complete this topic Advance Directives * Full Code (Latest Code Status on File) Date Activated Date Inactivated Comments 05/26/2015 11:04 PM 06/01/2015 6:08 PM * Full Code Date Activated Date Inactivated Comments 05/26/2015 7:39 PM 05/26/2015 11:04 PM Care Teams Relations Director Relationship Specialty Start Date End Date Charles Armendariz DO PCP - General 06/04/20 Tammy Arroyo, RN Research Analyst 05/26/15
--- OUTSIDE RECORDS SUMMARY | 2024-04-04 15:18 | XMS_ITS | Clinical Summary ---
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 Name Role Phone Charles Armendariz DO Primary Care Provider Allergies Active Allergy Reactions Criticality Noted Date Comments Canagliflozin Other (See Comments) Low 10/28/2021 Ciprofloxacin Nausea and Vomiting Low 09/08/2022 Daptomycin Diarrhea Low 06/29/2020 Doxycycline Other (See Comments),Unknown Low 09/19/2019 Empagliflozin Diarrhea Low 04/21/2021 Lisinopril Cough Low 08/13/2018 Povidone-Iodine Rash Medium 05/05/2017 Semaglutide Unknown High 01/27/2021 [id number]-[id number]-Bkb Reductase Inhibitors Muscle Pain Medium 11/05/2020 Valsartan Hives,Unknown High 10/08/2015 Vancomycin Hives,Unknown High 11/05/2015 Medications aspirin (ADRIEN CHEWABLE) 81 mg Tablet, Chewable Take 81 mg by mouth. Active atorvastatin (LIPITOR) 40 mg tablet Take 40 mg by mouth daily at bedtime. Active cholecalciferol , vitamin D3, 5,000 unit Take 5,000 Units by mouth. Active DULoxetine (CYMBALTA) 30 mg Capsule, Delayed Release(E.C.) Take 30 mg by mouth daily. Active esomeprazole (NexIUM) 40 mg Capsule, Delayed Release(E.C.) daily. Active fluticasone propionate (FLONASE) 50 mcg/spray [place], Suspension nasal inhaler Administer 2 Sprays in each nostril. Active furosemide (LASIX) 20 mg tablet Take 20 mg by mouth daily with breakfast. Active gabapentin (NEURONTIN) 300 mg capsule Take 300 mg by mouth 2 times daily. 1 Active glimepiride (AMARYL) 4 mg tablet Take 4 mg by mouth daily before breakfast. 3 Active hydroxychloroqu ine (PLAQUENIL) 200 mg tablet Take 1 Tablet by mouth 2 times daily. 3 Active insulin glargine (LANTUS) 100 unit/mL pen syringe Inject 60 Units by subcutaneous injection. Active insulin glargine U-300 conc (Toujeo SoloStar U-300 Insulin) 300 unit/mL pen syringe Inject 60 Units by subcutaneous injection daily at bedtime. 3 Active leflunomide (ARAVA) 20 mg Tablet Take 20 mg by mouth daily. 3 Active levothyroxine 100 mcg tablet Take 100 mcg by mouth daily before breakfast. Active metFORMIN (GLUCOPHAGE) 1,000 mg tablet Take 1 Tablet by mouth 2 times daily with meals. 3 Active metoprolol succinate (TOPROL XL) 25 mg Extended Release 24 hour tablet Take 25 mg by mouth. 1 Active montelukast (SINGULAIR) 10 mg tablet Take 10 mg by mouth daily. Active norethindrone-e thynyl estradiol (FEMHRT) 1-5 mg-mcg tablet daily. Active rivaroxaban (Xarelto) 2.5 mg Tablet Xarelto 2.5 mg tablet 1 Active Eliquis 5 mg tablet Take 5 mg by mouth 2 times daily. 5 Active Active Problems No known active problems Encounters Date Type Department Care Team Description 03/28/2024 Orders Only [facility] Oncology and Hematology - [address] [place] [phone] Ray Richards MD 03/27/2024 9:15 AM EXPORT AGENT Office Visit [facility] Oncology and Hematology - [address] [place] [phone] Ray Richards MD Chronic anemia (Primary Dx) 03/27/2024 Orders Only [facility] Oncology and Hematology - [address] [place] [phone] Ray Richards MD 03/26/2024 External Device Data ST[facility] ABSTRACTION Provider, Abstract 03/25/2024 Orders Only [facility] Oncology and Hematology - [address] [place] [phone] Ray Richards MD Chronic anemia 03/20/2024 External Device Data STL ABSTRACTION Provider, Abstract 03/20/2024 External Device Data STL ABSTRACTION Provider, Abstract 03/11/2024 Orders Only [facility] Oncology and Hematology - [address] [place] [phone] Ray Richards MD Chronic anemia 02/26/2024 Orders Only [facility] Oncology and Hematology - [address] [place] [phone] Ray Richards MD Chronic anemia 02/12/2024 Orders Only [facility] Oncology and Hematology - [address] [place] [phone] Ray Richards MD Chronic anemia 01/29/2024 Orders Only [facility] and Hematology - [address] [place] [phone] Ray Richards MD Chronic anemia 01/15/2024 Orders Only [facility] Oncology and Hematology - [address] [place] [phone] Ray Richards MD Chronic anemia 01/10/2024 Orders Only [facility] Oncology and Hematology - [address] [place] [phone] Ray Richards MD from Last 3 Months Family History Medical History Relation Name Comments Diabetes Brother Diabetes Daughter 1 Diabetes Daughter 2 Diabetes Daughter 3 Diabetes Father Heart Disease Father Lung Cancer Father Diabetes Mother Heart Disease Mother Diabetes Sister 1 Diabetes Sister 2 Relation Name Status Comments Brother Alive Daughter 1 Alive Daughter 2 Alive Daughter 3 Alive Daughter 4 Alive Father Mother Sister 1 Alive Sister 2 Alive Social History Tobacco Use Types Packs/Day Years Used Date Smoking Tobacco: Former Cigarettes Q uit: 1998 Smokeless Tobacco: Never Tobacco Cessation:Counseling Given: Not Answered Alcohol Use Standard Drinks/Week Comments Not Currently 0 (1 standard drink = 0.6 oz pur e alcohol) Comments Unknown Sex and Gender Information Value Date Recorded Sex Assigned at Not on file Legal Sex Female 3:40 AM EXPORT AGENT Gender Identity Not on file Sexual Orientation Not on file Last Filed Vital Signs Vital Sign Reading Time Taken Comments Blood Pressure 162/71 03/27/2024 9:35 AM EXPORT AGENT patient stated she is nervous Pulse 80 03/27/2024 9:30 AM EXPORT AGENT Temperature 36.2 C (97.2 F) 03/27/2024 9:30 AM EXPORT AGENT Respiratory Rate 15 03/27/2024 9:30 AM EXPORT AGENT Oxygen Saturation 98% 03/27/2024 9:3 0 AM EXPORT AGENT Inhaled Oxygen Concentration - - Weight 96.4 kg (212 lb 9.6 oz) 03/27/2024 9:30 AM EXPORT AGENT Height 154.9 cm (5' 1 ) 04/12/2023 1:08 PM EXPORT AGENT Body Mass Index 40.17 04/12/2023 1:08 PM EXPORT AGENT Plan of Treatment Upcoming Encounters Date Type Department Care Team (Late st Contact Info) Description 05/22/2024 9:45 AM CDT Office Visit [facility] Oncology and Hematology [facility] [address] [place] [address] [facility] [address] [place] [address] Ray Richards MD [address] [facility] [address] [place] [address] Health Maintenance Due Date Last Done Comments DIABETES MICROALBUMIN ANNUAL SCREEN 1970 LDL CHOLESTEROL ANNUAL 1970 ZOSTER VACCINE (1 of 2) 06/20/1971 BREAST CANCER SCREENING 1992 FIT-DNA Q 3 years 1997 FIT/FOBT Q 1 year 1997 Flex Sig/CT Colonography Q 5 years 1997 PNEUMOCOCCAL VACCINE 65+ YEA RS (2 of 2 - PCV) 09/16/2010 09/16/2009 RSV VACCINE (60+ or ) (1 - Risk 60-74 years 1-dose series) 2012 COVID-19 Vaccine (2023-2 5 season) 2023 09/28/2021, 03/22/2021, 06/10/2020, Additional history exists DIABETES ANNUAL RETINAL EXAM 03/06/202409/2023, 08/22/2022, 04/05/2022, Additional history exists DIABETES HBA1C Q 6 MONTHS 04/25/20242023, 03/09/2023, 09/08/2022, Additional history exists DIABETES ANNUAL FOOT EXAM 10/23/2024 10/24/2023 COLORECTAL SCREENING 05/19/2030 05/19/2020 Colorectal Cancer Screening 05/19/2030 DTAP/TDAP/TD VACCINES (2 - T d or Tdap) 09/15/2031 09/14/2021, 02/28/2006 OSTEOPOROSIS SCREENING Completed 09/23/2021, 2021 INFLUENZA VACCINE Completed 01/01/2024, , 05/27/2015, Additional history exists Procedures Procedure Name Priority Date/Time Associated Diagnosis Comments BASIC METABOLIC PANEL Routine 03/27/2024 4:07 PM EXPORT AGENT CBC WITH DIFFERENTIAL Routine 03/27/2024 3:59 PM EXPORT AGENT IRON PANEL Routine 03/27/2024 11:52 AM EXPORT AGENT IRON, TIBC, AND PERCENT SATURATION Routine 03/26/2024 1:21 PM EXPORT AGENT BASIC METABOLIC PANEL Stat 03/26/2024 1:21 PM EXPORT AGENT Chronic anemia FERRITIN Routine 03/26/2024 1:21 PM EXPORT AGENT Chronic anemia CBC WITH DIFFERENTIAL Routine 03/26/2024 1:21 PM EXPORT AGENT Chronic anemia CBC WITH DIFFERENTIAL Routine 01/08/2024 10:41 AM EXPORT AGENT from Last 3 Months Results * BASIC METABOLIC PANEL (03/27/2024 4:07 PM EXPORT AGENT) Only the most recent of2 resultswithin the time period is included. Blood us Ray Richards MD CHEMISTRY ORDERABLES Final Resu lt * CBC WITH DIFFERENTIAL (03/27/2024 3:59 PM EXPORT AGENT) Only the most recent of3 resultswithin the time period is included. Blood us Ray Richards MD HEMATOLOGY ORDERABLES Final Res ult * IRON PANEL (03/27/2024 11:52 AM EXPORT AGENT) Blood us Ray Richards MD CHEMISTRY ORDERABLES Final Resu lt * (ABNORMAL) IRON, TIBC, AND PERCENT SATURATION (03/26/2024 1:21 PM EXPORT AGENT) IRON 42(L) 45 - 160 mcg/dL [facility] TIBC 318 250 - 450 mcg/dL (calc) [facility] IRON % SATURATION 13(L) 16 - 45 % (calc) [facility] Comment: Test Performed at: [facility] [address] [place] [address] Tres Lund MD 03/26/2024 1:21 PM EXPORT AGENT 03/26/2024 1:22 PM EXPORT AGENT us Ray Richards MD CHEMISTRY ORDERABLES Final Resu lt [facility] [phone] [facility] [address] [place] [address] * FERRITIN (03/26/2024 1:21 PM EXPORT AGENT) FERRITIN 33 16 - 288 ng/mL [facility] Comment: Test Performed at: [facility] [address] [place] [address] Tres Lund MD Blood 03/26/2024 1:21 PM EXPORT AGENT 03/26/2024 1:22 PM EXPORT AGENT Ray Richadrs MD CHEMISTRY ORDERABLES Final Resu lt [facility] [phone] [facility] [address], [place] [phone] from Last 3 Months Insurance MEDICARE PART A AND B [employer] P[employer] O OPEN ACCESS Care Teams Department Traffic Freight Router Relationship Specialty Start Date End Date Charles Armendariz DO [address] [facility] [address] [place] [address] PCP - General Internal Medicine 11/04/22
--- OUTSIDE RECORDS SUMMARY | 2024-04-04 15:19 | XMS_ITS | CONTINUITY OF CARE DOCUMENT ---
Author Name yareli downs Address Unknown Organization [facility] Address [id number] [place] [address] Phone [phone] Care Team Providers Care Computer Systems Security Analyst Name Role Phone David Vanegas MD Unavailable GILBERTO IRIZARRY DO Unavailable [phone] GLIBERTO IRIZARRY DO Unavailable PROBLEMS Condition Status Date Provider Notes DIABETES MELLITUS;since 1997 active David Vanegas MD intol to sglt2 and arb and ozemopci, cannot affored [place] HTN-04/05 [id number] active - David turner MD OBESITY; active David Vanegas MD SOB; NEG CXR 2007 active - David Vanegas MD CHEST PAIN-10/31 CATH NEG LV 70,?MICROVASCULAR DZ active - David Vanegas MD HTN ESSENTIAL;neg duplex and angio active David Vanegas MD CAD;neg carotdi dupelx active David Vanegas MD on x 2.5 Hypercholesterolemia;with high crp and low lpa active David Vanegas MD Hypothyroidism;ON RX PER PRIMARY active David Vanegas MD PALPITATIONS:NEG, ECHO, CXR, HOLTER 2007 active - David Vanegas MD PVD;NEG HILDA 2008 completed - David Vanegas MD EDEMA;NEG VD 2009 completed - Dvaid Vanegas MD CAROTID ARTERY DISEASE;NEG DUPLEX completed - David Vanegas MD Diastolic CHF active David Vanegas MD intol to jardince, ef too good for entrsto, intio to arb Cough due to VIET inhibitors active David Vanegas MD CAD;NEG CATH 2004, NEG NUC 2006 AND completed - David Vanegas MD SLEEP APNEA; active David Vanegas MD FATIGUE;DOES NOT SEEM TO BE CARDIAC, TO SEE PRIMARY completed - David Vanegas MD ISCHEMIA; CXR 11, NML ANGIO 12 completed - David Vanegas MD TOBACCO ABUSE;NEG AMI 11 completed 09/09 - David Vanegas MD COPD;has lung md active David Vanegas MD LFT, ABNORMAL;PRAVA STOPPED PRIMARY, fu per primay completed - David Vanegas MD Anemia of chronic disease active David olivera MD previould iron def hx of CARPAL TUNNEL SYNDROME;had bilat srugery completed - David Vanegas MD CONGENITAL HEART DISEASE; active David olivera MD LAD TO PA FISTUAL SMALL, NO STEP UP, Tricuspid regurgitation, mild completed - David Vanegas MD Microalbuminuria active David Vanegas MD in gustavo lto arb and sghlt 2 and coanont offrd kereina Vitamin D deficiency active David Soriano Granulomatous lung disease active David cannon MD Anxiety active David Vanegas MD Tobacco use, quit active David Vanegas MD t oo remote to scxre Angina pectoris completed - David Vanegas MD Screening active David Vanegas MD COPD completed - David Vanegas MD Neuropathic pain active David Vanegas MD PVD; active David Vanegas MD x 2.5 Ulcer, chronic, other part of foot active David Vanegas MD chronic thromboisi left lsv and gsv active David Vanegas MD Mitral valve disorder active David Vanegas MD Exposure to SARS-associated coronavirus;had vaccine and neg swab active David Vanegas MD Arrhythmia;NML TSH completed - David Vanegas MD Renal disease, chronic, mild active David Vanegas MD cannot affored krenda and itol to sglt2 Shortness of breath completed - David Vanegas MD PFO active David Vanegas MD shawanda 2022 and 24 Tuberculosis active David Vanegas MD Elevated LFT's active David Vanegas MD neg hep screen, neg us, remote nan ENCOUNTERS Date Type Provider Location Encounter Diag nosis 1 - 1 In-person encounter Office Visit David Vanegas MD [facility] Diastolic CHFPFOElevated LFT's 4 - 4 In-person encounter Office Visit David Vanegas MD [facility] CAD;neg carotdi dupelxCOPD;has lung mdTuberculosis 9 - 9 In-person encounter Office Visit David Vanegas MD [facility] Diastolic CHFAnemia of chronic diseaseMitral valve disorderShortness of breathPFO 1 - 1 In-person encounter Office Visit David Vanegas MD [facility] 5 - 5 In-person encounter Office Visit David Vanegas MD [facility] DIABETES MELLITUS;since 1997MicroalbuminuriaPVD; 3 - 3 In-person encounter Office Visit David Vanegas MD [facility] DIABETES MELLITUS;since 1997CAD;neg carotdi dupelxAnemia of chronic disease 1 - 1 In-person encounter Office Visit David Vanegas MD [facility] DIABETES MELLITUS;since 1997Arrhythmia;NML TSHRenal disease, chronic, mild 3 - 3 In-person encounter Office Visit David Vanegas MD [facility] 1 - 2 In-person encounter Office Visit David Vanegas MD [facility] Hypercholesterolemia;with high crp and low lpaExposure to SARS-associated coronavirus;had vaccine and neg swab 3 - 3 In-person encounter Office Visit David Vanegas MD [facility] 1 - 1 In-person encounter Office Visit David Vanegas MD [facility] Hypothyroidism;ON RX PER PRIMARYCOPD;has lung mdAnemia of chronic diseaseMicroalbuminuriaCOPDchronic thromboisi left lsv and gsvMitral valve disorder 6 - 6 In-person encounter Office Visit David Vanegas MD [facility] HTN ESSENTIAL;neg duplex and angioCAD;neg carotdi dupelxPVD;NEG HILDA 2009CAROTID ARTERY DISEASE;NEG DUPLEXCough due to VIET inhibitorshx of CARPAL TUNNEL SYNDROME;had bilat srugeryCONGENITAL HEART DISEASE;Tobacco use, quitAngina pectorisScreeningNeuropathic painPVD;Ulcer, chronic, other part of foot 5 - 5 In-person encounter Office Visit David Vanegas MD [facility] 7 - 7 In-person encounter Office Visit David Vanegas MD [facility] CAD;neg carotdi dupelx 7 - 7 In-person encounter Office Visit David Vanegas MD [facility] LFT, ABNORMAL;PRAVA STOPPED PRIMARY, fu per primayTobacco use, quit 2 - 2 In-person encounter Office Visit David Vanegas MD [facility] 6 - 6 In-person encounter Office Visit David Vanegas MD [facility] DIABETES MELLITUS;since 1998Tricuspid regurgitation, mildAnxiety 2 - 2 In-person encounter Office Visit David Vanegas MD [facility] SLEEP APNEA;Anemia of chronic disease 1 - 1 In-person encounter Office Visit David Vanegas MD [facility] HTN ESSENTIAL;neg duplex and angioCAD;neg carotdi dupelxDiastolic CHFSLEEP APNEA;Granulomatous lung disease 8 - 8 In-person encounter Office Visit David Vanegas MD [facility] 2 - 2 In-person encounter Office Visit David Vanegas MD [facility] 6 - 6 In-person encounter Office Visit David Vanegas MD [facility] OBESITY;HTN ESSENTIAL;neg duplex and angioCAD;neg carotdi dupelxHypercholesterolemia;with high crp and low lpaISCHEMIA; CXR 11, NML ANGIO 12Anemia of chronic diseaseCONGENITAL HEART DISEASE;MicroalbuminuriaVitamin D deficiency 8 - 8 In-person encounter Office Visit David Vanegas MD [facility] 1 - 1 In-person encounter Office Visit David Vanegas MD [facility] OBESITY;HTN ESSENTIAL;neg duplex and angioCAD;neg carotdi dupelxHypercholesterolemia;with high crp and low lpaDiastolic CHFCOPD;has lung md 5 - 5 In-person encounter Office Visit David Vanegas MD [facility] 4 - 4 In-person encounter Office Visit David Vanegas MD [facility] 2 - 2 In-person encounter Office Visit David Vanegas MD [facility] 1 - 1 In-person encounter Office Visit David Vanegas MD [facility] 8 - 2013/08/2 8 In-person encounter Office Visit David Vanegas MD [facility] 5 - 5 In-person encounter Office Visit David Vanegas MD [facility] HTN ESSENTIAL;neg duplex and angioCAD;neg carotdi dupelxHypercholesterolemia;with high crp and low lpaCAD;NEG CATH 2004, NEG NUC 2006 AND 11LFT, ABNORMAL;PRAVA STOPPED PRIMARY, fu per primayhx of CARPAL TUNNEL SYNDROME;had bilat srugeryCONGENITAL HEART DISEASE; 0 - 0 In-person encounter Office Visit David Vanegas MD [facility] Diastolic CHFISCHEMIA; CXR 11, NML ANGIO 12Anemia of chronic diseasehx of CARPAL TUNNEL SYNDROME;had bilat srugery 9 - 9 In-person encounter Office Visit David Vanegas MD [facility] CAD;neg carotdi dupelxHypothyroidism;ON RX PER PRIMARYDiastolic CHFISCHEMIA; CXR 11, NML ANGIO 12LFT, ABNORMAL;PRAVA STOPPED PRIMARY, fu per primay 5 - 5 In-person encounter Office Visit David Vanegas MD [facility] LFT, ABNORMAL;PRAVA STOPPED PRIMARY, fu per primay 4 - 4 In-person encounter Office Visit David Vanegas MD [facility] DIABETES MELLITUS;since 1997OBESITY;SOB; NEG CXR 2008CHEST PAIN-10/31 CATH NEG LV 70,?MICROVASCULAR DZCAD;neg carotdi dupelxPALPITATIONS:NEG, ECHO, CXR, HOLTER 2008FATIGUE;DOES NOT SEEM TO BE CARDIAC, TO SEE PRIMARYISCHEMIA; CXR 11, NML ANGIO 12TOBACCO ABUSE;NEG AMI 11COPD;has lung md 0 - 0 In-person encounter Office Visit David Vanegas MD [facility] HTN ESSENTIAL;neg duplex and angioHypothyroidism;ON RX PER PRIMARYDiastolic CHFCough due to VIET inhibitorsCAD;NEG CATH 2003, NEG NUC 2006 AND 11SLEEP APNEA; 1 - 2 In-person encounter Office Visit David Vanegas MD [facility] HTN-04/05 [id number];neg carotdi dupelxPVD;NEG HILDA 2009EDEMA;NEG VD 2008 0 - 0 In-person encounter Office Visit David Vanegas MD [facility] DIABETES MELLITUS;since 1997SOB; NEG CXR 2007CHEST PAIN-10/31 CATH NEG LV 70,?MICROVASCULAR DZCAD;neg carotdi dupelxPALPITATIONS:NEG, ECHO, CXR, HOLTER 2007 1 - 1 In-person encounter Office Visit David Vanegas MD [facility] CHEST PAIN-10/31 CATH NEG LV 70,?MICROVASCULAR DZCAD;neg carotdi dupelxHypercholesterolemia;with high crp and low lpaHypothyroidism;ON RX PER PRIMARYPALPITATIONS:NEG, ECHO, CXR, HOLTER 2007 VITAL SIGNS Date Observation Value Provider Body Mass Index (Ratio) 38.70 kg/m2 Aleksandar Vanegas MD blood pressure, diastolic 65 mm[Hg] Ghulam [facility] blood pressure, systolic 119 mm[Hg] Kristyn dunne [facility] blood pressure, cuff size regular Ghulam johnny [facility] oxygen saturation, oximetry 97 % [facility] pulse rate 94 /min [facility] weight E&M 222 [lb_av] [facility] height E&M 63.5 [in_i] [facility] Body Mass Index (Ratio) 38.36 kg/m2 Aleksandar Vanegas MD oxygen saturation, oximetry 96 % Randi Blanco pulse rate 97 /min Randijohnny Blanco blood pressure, cuff size large Braden Blanco blood pressure, diastolic 62 mm[Hg] Braden Blanco blood pressure, systolic 114 mm[Hg] Tab itha Francis weight E&M 220 [lb_av] Randi Blanco respiratory rate E&M 12 /min Randi Blanco height E&M 63.5 [in_i] Randi Blanco Body Mass Index (Ratio) 39.23 kg/m2 Aleksandar Vanegas MD blood pressure, cuff size regular Ja et blood pressure, diastolic 65 mm[Hg] Ja rret blood pressure, systolic 131 mm[Hg] [facility] pulse rate 93 /min [facility] oxygen saturation, oximetry 93 % Angel respiratory rate E&M 16 /min Angel weight E&M 225 [lb_av] [facility] height E&M 63.5 [in_i] [facility] Body Mass Index (Ratio) 40.27 kg/m2 Aleksandar Vanegas MD blood pressure, diastolic 72 mm[Hg] Denita nkLog blood pressure, systolic 142 mm[Hg] Lexis og blood pressure, cuff size large [facility], [facility] 72 mm[Hg] rret blood pressure, systolic 142 mm[Hg] [facility] ret pulse rate 86 /min [facility] respiratory rate E&M 12 /min [facility] oxygen saturation, oximetry 94 % [facility] weight E&M 231 [lb_av] [facility] height E&M 63.5 [in_i] [facility] Body Mass Index (Ratio) 40.97 kg/m2 Aleksandar Vanegas MD blood pressure, cuff size regular Ja rret blood pressure, diastolic 74 mm[Hg] Gregory deanet blood pressure, systolic 153 mm[Hg] Ashley lopez pulse rate 87 /min Angel respiratory rate E&M 12 /min oxygen saturation, oximetry 97 % Angel weight E&M 235 [lb_av] Angel height E&M 63.5 [in_i] Angel y Body Mass Index (Ratio) 38.22 kg/m2 Aleksandar Vanegas MD blood pressure, diastolic 79 mm[Hg] [facility] anna Marquis blood pressure, systolic 143 mm[Hg] Shruti Marquis oxygen saturation, oximetry 97 % Charlettegenet Marquis pulse rate 86 /min Charlettegenet Marquis respiratory rate E&M 16 /min Charlettegenet morillo weight E&M 219.2 [lb_av] Charlettegenet Marquis height E&M 63.5 [in_i] Charlettegenet Marquis Body Mass Index (Ratio) 38.01 kg/m2 Aleksandar Vanegas MD blood pressure, diastolic 70 mm[Hg] Luke Vanegas MD blood pressure, systolic 123 mm[Hg] Jorge Vanegas MD weight E&M 218 [lb_av] David Soriano Body Mass Index (Ratio) 37.66 kg/m2 Aleksandar Vanegas MD blood pressure, diastolic 75 mm[Hg] Li nkLogic blood pressure, systolic 173 mm[Hg] Lexis kLogic blood pressure, diastolic 75 mm[Hg] Ca therine Fran blood pressure, systolic 173 mm[Hg] Cat herine [place] oxygen saturation, oximetry 95 % Ting [place] respiratory rate E&M 18 /min Catheri ne Fran pulse rate 80 /min Ting [place] weight E&M 216 [lb_av] Ting Fran blood pressure, cuff size regular Ca therine Fran height E&M 63.5 [in_i] Tnig [place] Body Mass Index (Ratio) 37.14 kg/m2 Aleksandar Vanegas MD weight E&M 213 [lb_av] David Soriano Body Mass Index (Ratio) 39.58 kg/m2 Aleksandar Vanegas MD blood pressure, cuff size large Ke rri [facility]fst [facility] blood pressure, diastolic 60 mm[Hg] Ke rri Regulouenenfb[facility] blood pressure, systolic 102 mm[Hg] Jae Saunders oxygen saturation, oximetry 94 % Marlene Castorenabaylor [facility] respiratory rate E&M 18 /min Marlene vossenejorge [facility] pulse rate 99 /min Marlene Ervin [facility] weight E&M 227 [lb_av] Marlene Ervin [facility] height E&M 63.5 [in_i] Marlene Mueller [facility] Body Mass Index (Ratio) 39.92 kg/m2 Aleksandar Vanegas MD blood pressure, cuff size regular Wilfred ismaren Cory pulse rate 80 /min Ruba [place] blood pressure, diastolic 72 mm[Hg] Kr isty [place] blood pressure, systolic 130 mm[Hg] Catracho Ray oxygen saturation, oximetry 97 % Ruba [place] respiratory rate E&M 17 /min Ruba Cory weight E&M 229 [lb_av] Ruba Cory height E&M 63.5 [in_i] Ruba [place] Body Mass Index (Ratio) 39.92 kg/m2 Aleksandar Vanegas MD blood pressure, cuff size regular Cy salena Henson blood pressure, diastolic 64 mm[Hg] Cy salena Henson blood pressure, systolic 128 mm[Hg] Mylene christie Henson oxygen saturation, oximetry 98 % Marry Henson respiratory rate E&M 16 /min Marrychristie Henson pulse rate 78 /min Marrychristie Bean l weight E&M 229 [lb_av] Marry Markbel l height E&M 63.5 [in_i] Marry Markbel l Body Mass Index (Ratio) 40.90 kg/m2 Darrel Underwood NP blood pressure, diastolic 72 mm[Hg] Yordan Wiggins blood pressure, systolic 146 mm[Hg] Jaqueline Wiggins oxygen saturation, oximetry 91 % Isael Wiggins respiratory rate E&M 18 /min Gracy Wiggins pulse rate 95 /min Isael Delarosa darleenlynda weight E&M 234.6 [lb_av] Isael chanceon height E&M 63.5 [in_i] Isael mansfield pulse rate #2 62 [facility] blood pressure, fisher tolic, second observation 75 mm[Hg] [facility] blood pressure, syst olic, second observation 132 mm[Hg] [facility] oxygen saturation, oximetry 98 % [facility] pulse rate 62 /min [facility], diastolic 75 mm[Hg] Vi ctoria Ciscothiago blood pressure, systolic 132 mm[Hg] Bonifacio Peckthiago pulse rate #2 81 [facility] blood pressure, fisher tolic, second observation 75 mm[Hg] [facility] blood pressure, syst olic, second observation 156 mm[Hg] [facility] oxygen saturation, oximetry 98 % [facility] pulse rate 81 /min [facility] blood pressure, diastolic 75 mm[Hg] Vi [facility] Ted blood pressure, systolic 156 mm[Hg] Bonifacio [facility] pulse rate #2 84 [facility] blood pressure, fisher tolic, second observation 75 mm[Hg] [facility] blood pressure, syst olic, second observation 136 mm[Hg] [facility] oxygen saturation, oximetry 98 % [facility] pulse rate 84 /min [facility] blood pressure, diastolic 75 mm[Hg] Vi [facility] blood pressure, systolic 136 mm[Hg] [facility] pulse rate #2 82 [facility] blood pressure, fisher tolic, second observation 79 mm[Hg] [facility] blood pressure, syst olic, second observation 119 mm[Hg] [facility] oxygen saturation, oximetry 98 % [facility] pulse rate 82 /min [facility] blood pressure, diastolic 79 mm[Hg] Vi [facility] blood pressure, systolic 119 mm[Hg] Bonifacio yesenia [facility] Body Mass Index (Ratio) 40.38 kg/m2 Aleksandar Vanegas MD blood pressure, resting Yes Debra Wiggins blood pressure, diastolic 75 mm[Hg] Yordan Wiggins blood pressure, systolic 156 mm[Hg] Jaqueline Wiggins oxygen saturation, oximetry 90 % Isael Wiggins respiratory rate E&M 18 /min Gracy Wiggins pulse rate 81 /min Isael mansfield weight E&M 231.6 [lb_av] Isael joseph height E&M 63.5 [in_i] Isael mansfield pulse rate #2 79 [facility] blood pressure, fisher tolic, second observation 84 mm[Hg] [facility], syst olic, second observation 136 mm[Hg] [facility] oxygen saturation, oximetry 98 % [facility] pulse rate 79 /min [place] blood pressure, diastolic 84 mm[Hg] Vi [facility] Tebid blood pressure, systolic 136 mm[Hg] [facility] #2 78 [place] blood pressure, fisher tolic, second observation 80 mm[Hg] [facility] blood pressure, syst olic, second observation 135 mm[Hg] [facility] oxygen saturation, oximetry 98 % [facility] pulse rate 78 /min [facility] blood pressure, diastolic 80 mm[Hg] Vi [facility] Tebid blood pressure, systolic 135 mm[Hg] Bonifacio [facility] Tebid pulse rate #2 84 [place] blood pressure, fisher tolic, second observation 87 mm[Hg] [facility] blood [facility], syst olic, second observation 147 mm[Hg] [facility] oxygen saturation, oximetry 98 % [facility] pulse rate 84 /min [place] d blood pressure, diastolic 87 mm[Hg] Vi [facility] Tebid blood pressure, systolic 147 mm[Hg] Bonifacio yesenia Tebid pulse rate #2 60 [facility] blood pressure, fisher tolic, second observation 82 mm[Hg] [facility] blood pressure, syst olic, second observation 133 mm[Hg] [facility] oxygen saturation, oximetry 98 % [place] Tebid pulse rate 60 /min Chayo Tebid blood pressure, diastolic 82 mm[Hg] Vi ctoria Tebid blood pressure, systolic 133 mm[Hg] Bonifacio yesenia Tebid pulse rate #2 63 [place] bid blood pressure, fisher tolic, second observation 77 mm[Hg] Chayo Tebid blood pressure, syst olic, second observation 125 mm[Hg] Chayo Tebid oxygen saturation, oximetry 98 % [facility] pulse rate 63 /min [place] Tebid blood pressure, diastolic 77 mm[Hg] Vi aroria Tebid blood pressure, systolic 125 mm[Hg] [facility] pulse rate #2 77 [facility] blood pressure, fisher tolic, second observation 74 mm[Hg] [facility] blood pressure, syst olic, second observation 142 mm[Hg] [facility] oxygen saturation, oximetry 98 % [facility] pulse rate 77 /min [facility] blood pressure, diastolic 74 mm[Hg] Vi [facility] Tebid blood pressure, systolic 142 mm[Hg] [facility] Tebid pulse rate #2 83 [facility] blood pressure, fisher tolic, second observation 76 mm[Hg] Chayo Tebid blood pressure, syst olic, second observation 128 mm[Hg] [place] Tebid oxygen saturation, oximetry 98 % [facility] pulse rate 83 /min [place] Tebid blood pressure, diastolic 76 mm[Hg] Vi aroria Tebid blood pressure, systolic 128 mm[Hg] Bonifacio yesenia Tebid pulse rate #2 74 [facility] blood pressure, fisher tolic, second observation 70 mm[Hg] [facility] blood pressure, syst olic, second observation 123 mm[Hg] Chayo d oxygen saturation, oximetry 98 % Chayo d pulse rate 74 /min Chayo d blood pressure, diastolic 70 mm[Hg] Vi ctoria Tebid blood pressure, systolic 123 mm[Hg] Bonifacio yesenia Tebid pulse rate #2 95 [facility] blood pressure, fisher tolic, second observation 82 mm[Hg] Chayo d blood pressure, syst olic, second observation 137 mm[Hg] [facility], oximetry 98 % Chayo pulse rate 95 /min Chayo d blood pressure, diastolic 82 mm[Hg] Vi ctoria Tebid blood pressure, systolic 137 mm[Hg] Bonifacio yesenia Tebid pulse rate #2 81 [place] blood pressure, fisher tolic, second observation 76 mm[Hg] [facility] blood [facility], syst olic, second observation 132 mm[Hg] [facility] oxygen saturation, oximetry 98 % Chayo pulse rate 81 /min Chayo d blood pressure, diastolic 76 mm[Hg] Vi [facility] Tebid blood pressure, systolic 132 mm[Hg] Bonifacio yesenia Tebid pulse rate #2 74 [place] d blood pressure, fisher tolic, second observation 82 mm[Hg] [facility] blood [facility], syst olic, second observation 128 mm[Hg] [facility] oxygen saturation, oximetry 98 % Chayo pulse rate 74 /min [place] d blood pressure, diastolic 82 mm[Hg] Vi ctoria Tebid blood pressure, systolic 128 mm[Hg] Bonifacio yesenia Tebid Body Mass Index (Ratio) 40.27 kg/m2 Aleksandar Vanegas MD blood pressure, diastolic 70 mm[Hg] Da bryanna Ileana blood pressure, systolic 118 mm[Hg] Dac ia Ileana oxygen saturation, oximetry 94 % Uzma Ileana respiratory rate E&M 16 /min Uzma V oss pulse rate 77 /min Uzma Ileana weight E&M 231 [lb_av] Uzma Ileana height E&M 63.5 [in_i] Uzma Ileana pulse rate #2 79 [place] Tebid blood pressure, fisher tolic, second observation 72 mm[Hg] Chayo Tebid blood pressure, syst olic, second observation 130 mm[Hg] Chayo Tebid oxygen saturation, oximetry 98 % [facility] pulse [facility] 79 /min [facility], diastolic 72 mm[Hg] Vi ctoria Tebid blood pressure, systolic 130 mm[Hg] Bonifacio yesenia Tebid pulse rate #2 81 [place] Tebid blood pressure, fisher tolic, second observation 73 mm[Hg] Chayo Tebid blood pressure, syst olic, second observation 127 mm[Hg] Chayo Tebid oxygen saturation, oximetry 98 % Chayo Tebid pulse rate 81 /min [place] Tebid blood pressure, diastolic 73 mm[Hg] Vi ctoria Tebid blood pressure, systolic 127 mm[Hg] Bonifacio yesenia Tebid pulse rate #2 89 [place] Tebid blood pressure, fisher tolic, second observation 74 mm[Hg] Chayo Tebid blood pressure, syst olic, second observation 132 mm[Hg] Chayo Tebid oxygen saturation, oximetry 98 % Chayo Tebid pulse rate 89 /min [place] Tebid blood pressure, diastolic 74 mm[Hg] Vi ctoria Tebid blood pressure, systolic 132 mm[Hg] Bonifacio yesenia Tebid pulse rate #2 87 [place] Tebid blood pressure, fisher tolic, second observation 79 mm[Hg] Chayo Tebid blood pressure, syst olic, second observation 162 mm[Hg] Chayo Tebid oxygen saturation, oximetry 98 % [facility] pulse [facility] 87 /min [place] Tebid blood pressure, diastolic 79 mm[Hg] Vi ctoria Tebid blood pressure, systolic 162 mm[Hg] Bonifacio yesenia Tebid pulse rate #2 88 [place] Tebid blood pressure, fisher tolic, second observation 88 mm[Hg] [place] Tebid blood pressure, syst olic, second observation 166 mm[Hg] [facility], oximetry 98 % [facility] pulse rate 88 /min [place] Tebid blood pressure, diastolic 88 mm[Hg] Vi ctoria Tebid blood pressure, systolic 166 mm[Hg] Bonifacio yesenia Tebid pulse rate #2 77 [place] Tebid blood pressure, fisher tolic, second observation 81 mm[Hg] [place] Tebid blood pressure, syst olic, second observation 144 mm[Hg] [place] Tebid oxygen saturation, oximetry 98 % [place] Tebid pulse rate 77 /min [place] Tebid blood pressure, diastolic 81 mm[Hg] Vi ctoria Tebid blood pressure, systolic 144 mm[Hg] Bonifacio yesenia Tebid pulse rate #2 83 [place] Tebid blood pressure, fisher tolic, second observation 77 mm[Hg] [place] Tebid blood pressure, syst olic, second observation 152 mm[Hg] [facility], [facility] 83 /min [place] Tebid blood pressure, diastolic 77 mm[Hg] Vi ctoria Tebid blood pressure, systolic 152 mm[Hg] Bonifacio yesenia Tebid pulse rate #2 76 [place] bid blood pressure, fisher tolic, second observation 85 mm[Hg] [place] Tebid blood pressure, syst olic, second observation 148 mm[Hg] Chayo Tebid oxygen saturation, oximetry 98 % [place] bid pulse rate 76 /min [place] Tebid blood pressure, diastolic 85 mm[Hg] Vi ctoria Tebid blood pressure, systolic 148 mm[Hg] Bonifacio yesenia Tebid pulse rate #2 69 [place] d blood pressure, fisher tolic, second observation 81 mm[Hg] [facility] syst [facility], second observation 154 mm[Hg] [facility], oximetry 98 % [place] pulse rate 69 /min [place] Tebid blood pressure, diastolic 81 mm[Hg] Vi [facility] Tebid blood pressure, systolic 154 mm[Hg] Bonifacio yesenia Tebid pulse rate #2 62 [facility] blood pressure, fisher tolic, second observation 89 mm[Hg] [facility], syst olic, second observation 143 mm[Hg] [facility], oximetry 98 % [facility] pulse [facility] 62 /min [place] Tebid blood pressure, diastolic 89 mm[Hg] Vi ctoria Tebid blood pressure, systolic 143 mm[Hg] Bonifacio yesenia Tebid pulse rate #2 65 [facility] blood [facility], fisher tolic, second observation 88 mm[Hg] [facility] blood [facility], syst olic, second observation 132 mm[Hg] [facility], oximetry 98 % [facility] pulse [facility] 65 /min Chayo Tebid blood pressure, diastolic 88 mm[Hg] Vi aroria Tebid blood pressure, systolic 132 mm[Hg] Bonifacio yesenia Tebid pulse rate #2 65 [place] bid blood pressure, fisher tolic, second observation 71 mm[Hg] Chayo Tebid blood pressure, syst olic, second observation 127 mm[Hg] Chayo Tebid oxygen saturation, oximetry 98 % [facility] 65 /min [place] Tebid blood pressure, diastolic 71 mm[Hg] Vi [facility] Tebid blood pressure, systolic 127 mm[Hg] [facility]2 [facility] blood [facility], fisher tolic, second observation 69 mm[Hg] [facility] blood [facility], syst olic, second observation 132 mm[Hg] [facility], oximetry 98 % [facility] pulse [facility] 68 /min [facility] blood [facility], diastolic 69 mm[Hg] Vi [facility] Tebid blood pressure, systolic 132 mm[Hg] [facility] #2 72 [facility] blood [facility], fisher tolic, second observation 79 mm[Hg] [place] Tebid blood pressure, syst olic, second observation 134 mm[Hg] [place] Tebid oxygen saturation, oximetry 98 % [facility] pulse [facility] 72 /min [facility] blood [facility], diastolic 79 mm[Hg] Vi aroria Tebid blood pressure, systolic 134 mm[Hg] Bonifacio yesenia Tebid pulse rate #2 80 [facility] blood [facility], fisher tolic, second observation 68 mm[Hg] [facility] blood [facility], syst olic, second observation 129 mm[Hg] [facility] oxygen saturation, oximetry 98 % [facility] pulse rate 80 /min [place] blood pressure, diastolic 68 mm[Hg] Vi ctoria Tebid blood pressure, systolic 129 mm[Hg] Bonifacio brownia Tebid pulse rate #2 88 [facility] blood pressure, fisher tolic, second observation 86 mm[Hg] [place] blood pressure, syst olic, second observation 138 mm[Hg] [facility] oxygen saturation, oximetry 98 % [place] pulse rate 88 /min [place] blood pressure, diastolic 86 mm[Hg] Vi [facility] Ted blood pressure, systolic 138 mm[Hg] Bonifacio brownia Tebid pulse rate #2 88 [facility] blood pressure, fisher tolic, second observation 77 mm[Hg] [facility] blood pressure, syst olic, second observation 156 mm[Hg] [facility] oxygen saturation, oximetry 98 % [facility] pulse rate 88 /min [place] blood pressure, diastolic 77 mm[Hg] Vi [facility] Ted blood pressure, systolic 156 mm[Hg] Bonifacio brownia Tebid pulse rate #2 86 [facility] blood pressure, fisher tolic, second observation 74 mm[Hg] [facility] blood [facility], syst olic, second observation 137 mm[Hg] [facility], oximetry 98 % [facility] pulse rate 86 /min [facility], diastolic 74 mm[Hg] Vi ctoria Tebid blood pressure, systolic 137 mm[Hg] Bonifacio brownia Tebid pulse rate #2 82 [facility] blood pressure, fisher tolic, second observation 67 mm[Hg] [facility] blood pressure, syst olic, second observation 125 mm[Hg] [facility] Body Mass Index (Ratio) 40.31 kg/m2 Darrel Underwood [employer] blood pressure, cuff size large Sh campbell Lemosdall [employer] blood pressure, diastolic 62 mm[Hg] Sh campbell Lemosdall [employer] blood pressure, systolic 130 mm[Hg] She jaye Lemosdall [employer] weight E&M 231.2 [lb_av] Cynthia Underwood [employer] oxygen saturation, oximetry 98 % [facility] pulse rate 82 /min [facility] blood pressure, diastolic 67 mm[Hg] Vi misaeloria blood pressure, systolic 125 mm[Hg] Bonifacio yesenia [facility] blood pressure, diastolic 69 mm[Hg] Tn deo Ortiz blood pressure, systolic 136 mm[Hg] Lizbeth brown Ortiz pulse rate 88 /min [place] [facility] oxygen saturation, oximetry 96 % [place] Ortiz respiratory rate E&M 16 /min [place] Ortiz Body Mass Index (Ratio) 40.27 kg/m2 Carline ren [facility] weight E&M 231 [lb_av] [place] Ortiz blood pressure, diastolic 60 mm[Hg] nola Demecs RN blood pressure, systolic 150 mm[Hg] Phong sta Demecs RN pulse rate 83 /min Redby Demecs R N oxygen saturation, oximetry 98 % Jaja Demecs RN respiratory rate E&M 20 /min Jaja Demecs RN Body Mass Index (Ratio) 39.40 kg/m2 Phongs ta Demecs RN weight E&M 226 [lb_av] Redby Demecs R N blood pressure, diastolic 62 mm[Hg] nola Demecs RN blood pressure, systolic 126 mm[Hg] Phong logan Demecs RN pulse rate 89 /min Redby Demecs R N oxygen saturation, oximetry 94 % Jaja Demecs RN respiratory rate E&M 16 /min Redby Demecs RN Body Mass Index (Ratio) 39.47 kg/m2 [facility]&M 226.4 [lb_av] Redby Demecs RN blood pressure, diastolic 70 mm[Hg] Kr isty [place] blood pressure, systolic 124 mm[Hg] Wilfredi stkitty [place] pulse rate 97 /min Ruba Cory oxygen saturation, oximetry 97 % Ruba Cory respiratory rate E&M 18 /min Ruba Cory Body Mass Index (Ratio) 39.65 kg/m2 Luis A ty [place] weight E&M 227.4 [lb_av] Ruba [place] blood pressure, diastolic 70 mm[Hg] Yordan Wiggins blood pressure, systolic 140 mm[Hg] Jaqueline Wiggins pulse rate 74 /min Isael [place] oxygen saturation, oximetry 97 % Isael Andersonenson respiratory rate E&M 16 /min Gracy Wiggins Body Mass Index (Ratio) 40.20 kg/m2 Gladis Wiggins weight E&M 230.6 [lb_av] Isael Anderson enson blood pressure, diastolic 60 mm[Hg] Sh erry Faunsdale [employer] blood pressure, systolic 138 mm[Hg] She jaye Lemosdall [employer] pulse rate, standing 78 /min Cynthia Underwood [employer] Body Mass Index (Ratio) 39.23 kg/m2 Darrel Underwood [employer] weight E&M 225.0 [lb_av] Cynthia Kj [employer] Body Mass Index (Ratio) 39.44 kg/m2 Darrel Underwood [employer] blood pressure, diastolic 80 mm[Hg] Sh campbell Zepedall [employer] blood pressure, systolic 118 mm[Hg] She rrkitty Zepedall [employer] pulse rate 88 /min Cynthia Underwood [employer] weight E&M 226.2 [lb_av] Cynthia Underwood [employer] Body Mass Index (Ratio) 39.58 kg/m2 Carline ren Ortiz blood pressure, diastolic 71 mm[Hg] Me deo Ortiz blood pressure, systolic 155 mm[Hg] Lizbeth kevin Ortiz pulse rate 92 /min [place] Ortiz oxygen saturation, oximetry 94 % [place] Ortiz respiratory rate E&M 15 /min [place] Ortiz weight E&M 227 [lb_av] [place] Ortiz blood pressure, diastolic 61 mm[Hg] Sh campbell Underwood [employer] blood pressure, systolic 113 mm[Hg] She rrkitty Zepedall [employer] Body Mass Index (Ratio) 36.54 kg/m2 Darrel Underwood [employer] weight E&M 209.6 [lb_av] Cynthia Underwood [employer] Body Mass Index (Ratio) 36.96 kg/m2 Sanz i Nicky blood pressure, diastolic 61 mm[Hg] Ke rri Omeroer blood pressure, systolic 113 mm[Hg] Ker ri Omeroer pulse rate 83 /min Marlene Kelle lder oxygen saturation, oximetry 98 % Marlene Omeroer respiratory rate E&M 17 /min Marlene Michael escobedo weight E&M 212 [lb_av] Marlene Gruenenfe lder Body Mass Index (Ratio) 35.98 kg/m2 Darrel Underwood [employer] weight E&M 205.6 [lb_av] Cynthia Underwood [employer] Body Mass Index (Ratio) 37.27 kg/m2 Darrel Underwood [employer] weight E&M 213 [lb_av] Cynthia Underwood [employer] Body Mass Index (Ratio) 37.13 kg/m2 Darrel Underwood [employer] weight E&M 212.2 [lb_av] Cynthia Underwood [employer] blood pressure, diastolic 68 mm[Hg] Sh campbell Zepedall [employer] blood pressure, systolic 122 mm[Hg] She jaye Underwood [employer] Body Mass Index (Ratio) 37.27 kg/m2 Darrel Underwood [employer] weight E&M 213 [lb_av] Cynthia Underwood [employer] blood pressure, diastolic 72 mm[Hg] Sh campbell Zepedall [employer] blood pressure, systolic 122 mm[Hg] She jaye Underwood [employer] Body Mass Index (Ratio) 37.27 kg/m2 Darrel Underwood [employer] pulse rate 72 /min Cynthia Underwood [employer] respiratory rate E&M 18 /min Cynthia Underwood [employer] weight E&M 213 [lb_av] Cynthia Underwood [employer] blood pressure, diastolic, left arm 82 mm [Hg] Koki Stue blood pressure, systolic, left arm 166 mm [Hg] Koki Stueber blood pressure, diastolic, right arm 79 m m[Hg] Koki Stueber blood pressure, systolic, right arm 175 m m[Hg] Koki Stueber Body Mass Index (Ratio) 37.13 kg/m2 Christine a Stue blood pressure, diastolic 82 mm[Hg] Ta jackie blood pressure, systolic 166 mm[Hg] Mccarthy Stue pulse rate 87 /min ue oxygen saturation, oximetry 98 % respiratory rate E&M 16 /min Koki burgoseber weight E&M 212.2 [lb_av] Koki Lindseyueber weight E&M 205 [lb_av] Mile Connors blood pressure, diastolic 71 mm[Hg] Angelica Connors blood pressure, systolic 136 mm[Hg] Sherry Connors pulse rate 91 /min Mile Connors oxygen saturation, oximetry 97 % Mile Connors respiratory rate E&M 16 /min Mile Connors blood pressure, diastolic 72 mm[Hg] Lucho Saunders blood pressure, systolic 126 mm[Hg] Jae Saunders pulse rate 85 /min Marlene salterer oxygen saturation, oximetry 98 % Marlene Saunders respiratory rate E&M 18 /min Marlene escobedo weight E&M 203.6 [lb_av] Marlene de la rosa Body Mass Index (Ratio) 34.47 kg/m2 Jessica Carpenter NP weight E&M 197 [lb_av] Les awan [employer] height E&M 63.5 [in_i] Les awan [employer] blood pressure, diastolic 75 mm[Hg] Yordan george [place] blood pressure, systolic 141 mm[Hg] Jaqueline jacobson [place] pulse rate 89 /min Nevaeh [place] oxygen saturation, oximetry 100 % Nevaeh [place] respiratory rate E&M 16 /min Nevaeh [place] weight E&M 198 [lb_av] Nevaeh [place] blood pressure, diastolic, left arm 78 mm [Hg] Salinas Viera RN blood pressure, systolic, left arm 127 mm [Hg] [place] Viera RN blood pressure, diastolic, right arm 81 m m[Hg] [place] Viera RN blood pressure, systolic, right arm 122 m m[Hg] [place] Viera RN blood pressure, diastolic 78 mm[Hg] Gregory Viera RN blood pressure, systolic 127 mm[Hg] [place] Viera RN pulse rate 88 /min Salinas Viera RN oxygen saturation, oximetry 97 % Salinas Viera RN respiratory rate E&M 18 /min Salinas markslv RN weight E&M 197 [lb_av] Salinas Viera RN blood pressure, diastolic 78 mm[Hg] Raya seph [place] blood pressure, systolic 128 mm[Hg] Germán eph [place] pulse rate 84 /min Jordin [place] oxygen saturation, oximetry 98 % Jordin [place] respiratory rate E&M 16 /min Jordin [place] weight E&M 210 [lb_av] Jordin [place] pulse rate #2 77 Jose Torrezherso n blood pressure, fisher tolic, second observation 70 mm[Hg] Jose Kline blood pressure, syst olic, second observation 115 mm[Hg] Jose Kline oxygen saturation, oximetry 97 % Jose Kline pulse rate 82 /min Jose Kline blood pressure, diastolic 71 mm[Hg] Ra carrillo Kline blood pressure, systolic 125 mm[Hg] Damaso ha McPherson pulse rate #2 80 Jose McPherso n blood pressure, fisher tolic, second observation 71 mm[Hg] Jose Kline blood pressure, syst olic, second observation 114 mm[Hg] Jose Kline oxygen saturation, oximetry 96 % Jose Kline pulse rate 86 /min Jose Kline blood pressure, diastolic 73 mm[Hg] Ra carrillo Kline blood pressure, systolic 123 mm[Hg] Ran dy Kline pulse rate #2 80 Jose McPherso n blood pressure, fisher tolic, second observation 83 mm[Hg] Jose Kline blood pressure, syst olic, second observation 130 mm[Hg] Jose Kline oxygen saturation, oximetry 97 % Jose Kline pulse rate 82 /min Jose Kline blood pressure, diastolic 74 mm[Hg] Ra ndy Kline blood pressure, systolic 121 mm[Hg] Ran dy Kline pulse rate #2 79 Jose McPherso n blood pressure, fisher tolic, second observation 85 mm[Hg] Jose Kline blood pressure, syst olic, second observation 135 mm[Hg] Jose Kline oxygen saturation, oximetry 96 % Jose Kline pulse rate 83 /min Jose Kline blood pressure, diastolic 79 mm[Hg] Ra ndy Kline blood pressure, systolic 126 mm[Hg] Ran dy Kline pulse rate #2 86 Jose McPherso n blood pressure, fisher tolic, second observation 73 mm[Hg] Jose Kline blood pressure, syst olic, second observation 132 mm[Hg] Jose Kline oxygen saturation, oximetry 97 % Jose Kline pulse rate 82 /min Jose Kline blood pressure, diastolic 82 mm[Hg] Ra ndy Kline blood pressure, systolic 108 mm[Hg] Ran dy Kline pulse rate #2 88 Jose McPherso n blood pressure, fisher tolic, second observation 79 mm[Hg] Jose Kline blood pressure, syst olic, second observation 128 mm[Hg] Jose Kline oxygen saturation, oximetry 96 % Jose Kline pulse rate 90 /min Jose Kline blood pressure, diastolic 70 mm[Hg] Ra ndy Kline blood pressure, systolic 133 mm[Hg] Ran dy Kline pulse rate #2 77 Jose McPherso n blood pressure, fisher tolic, second observation 64 mm[Hg] Jose Kline blood pressure, syst olic, second observation 101 mm[Hg] Jose Kline oxygen saturation, oximetry 96 % Jose Kline pulse rate 83 /min Jose Kline blood pressure, diastolic 69 mm[Hg] Ra ndy Kline blood pressure, systolic 122 mm[Hg] Ran dy Kline pulse rate #2 87 Jose McPherso n blood pressure, fisher tolic, second observation 72 mm[Hg] Jose Kline blood pressure, syst olic, second observation 112 mm[Hg] Jose Kline oxygen saturation, oximetry 96 % Jose Kline pulse rate 87 /min Jose Kline blood pressure, diastolic 80 mm[Hg] Ra ndy Kline blood pressure, systolic 135 mm[Hg] Ran dy Kline pulse rate #2 82 Jose McPherso n blood pressure, fisher tolic, second observation 86 mm[Hg] Jose Kline blood pressure, syst olic, second observation 124 mm[Hg] Jose Kline oxygen saturation, oximetry 96 % Jose Kline pulse rate 84 /min Jose Kline blood pressure, diastolic 85 mm[Hg] Ra ndy Kline blood pressure, systolic 127 mm[Hg] Ran dy Kline pulse rate #2 80 Jose McPherso n blood pressure, fisher tolic, second observation 81 mm[Hg] Jose Kline blood pressure, syst olic, second observation 127 mm[Hg] Jose Kline oxygen saturation, oximetry 96 % Jose Kline pulse rate 80 /min Jose Kline blood pressure, diastolic 85 mm[Hg] Ra ndy Kline blood pressure, systolic 128 mm[Hg] Ran dy Kline pulse rate #2 80 Jose McPherso n blood pressure, fisher tolic, second observation 85 mm[Hg] Jose Kline blood pressure, syst olic, second observation 135 mm[Hg] Jose Kline oxygen saturation, oximetry 96 % Jose Kline pulse rate 82 /min Jose Kline blood pressure, diastolic 81 mm[Hg] Ra myranday Kline blood pressure, systolic 123 mm[Hg] Ran dy Kline pulse rate #2 77 Jose McPherso n blood pressure, fisher tolic, second observation 80 mm[Hg] Jose Kline blood pressure, syst olic, second observation 135 mm[Hg] Jose Kline oxygen saturation, oximetry 96 % Jose Kline pulse rate 77 /min Jose Kline blood pressure, diastolic 77 mm[Hg] Ra ndy Kline blood pressure, systolic 128 mm[Hg] Ran dy Kline pulse rate #2 81 Jose McPherso n blood pressure, fisher tolic, second observation 83 mm[Hg] Jose Kline blood pressure, syst olic, second observation 140 mm[Hg] Jose Kline oxygen saturation, oximetry 96 % Jose Kline pulse rate 84 /min Jose Kline blood pressure, diastolic 77 mm[Hg] Ra ndy Kline blood pressure, systolic 126 mm[Hg] Ran dy Kline pulse rate #2 96 Jose McPherso n blood pressure, fisher tolic, second observation 85 mm[Hg] Jose Kline blood pressure, syst olic, second observation 145 mm[Hg] Jose Kline oxygen saturation, oximetry 96 % Jose Kline pulse rate 99 /min Jose Kline blood pressure, diastolic 78 mm[Hg] Ra ndy Kline blood pressure, systolic 147 mm[Hg] Ran dy Kline pulse rate #2 79 Jose McPherso n blood pressure, fisher tolic, second observation 76 mm[Hg] Jose Kline blood pressure, syst olic, second observation 124 mm[Hg] Jose Kline oxygen saturation, oximetry 96 % Jose Kline pulse rate 82 /min Jose Kline blood pressure, diastolic 60 mm[Hg] Ra ndy Kline blood pressure, systolic 115 mm[Hg] Ran dy Kline pulse rate #2 89 Jose McPherso n blood pressure, fisher tolic, second observation 81 mm[Hg] Jose Kline blood pressure, syst olic, second observation 120 mm[Hg] Jose Kline oxygen saturation, oximetry 96 % Jose Kline pulse rate 88 /min Jose Kline blood pressure, diastolic 80 mm[Hg] Ra ndy Kline blood pressure, systolic 129 mm[Hg] Ran dy Kline pulse rate #2 90 Jose McPherso n blood pressure, fisher tolic, second observation 85 mm[Hg] Jose Kline blood pressure, syst olic, second observation 132 mm[Hg] Jose Kline oxygen saturation, oximetry 96 % Jose Kline pulse rate 90 /min Jose Kline blood pressure, diastolic 63 mm[Hg] Ra ndy Kline blood pressure, systolic 121 mm[Hg] Ran dy Kline pulse rate #2 96 Jose McPherso n blood pressure, fisher tolic, second observation 73 mm[Hg] Jose Kline blood pressure, syst olic, second observation 137 mm[Hg] Jose Kline oxygen saturation, oximetry 96 % Jose Kline pulse rate 90 /min Jose Kline blood pressure, diastolic 78 mm[Hg] Ra ndy Kline blood pressure, systolic 134 mm[Hg] Ran dy Kline pulse rate #2 85 Jose McPherso n blood pressure, fisher tolic, second observation 80 mm[Hg] Jose Kline blood pressure, syst olic, second observation 112 mm[Hg] Jose Kline oxygen saturation, oximetry 96 % Jose Kline pulse rate 85 /min Jose Kline blood pressure, diastolic 71 mm[Hg] Ra ndy Kline blood pressure, systolic 108 mm[Hg] Ran dy Kline pulse rate #2 79 Jose McPherso n blood pressure, fisher tolic, second observation 76 mm[Hg] Jose Kline blood pressure, syst olic, second observation 135 mm[Hg] Jose Kline oxygen saturation, oximetry 96 % Jose Kline pulse rate 85 /min Jose Kline blood pressure, diastolic 74 mm[Hg] Ra ndy Kline blood pressure, systolic 124 mm[Hg] Ran dy Kline pulse rate #2 76 Jose McPherso n blood pressure, fisher tolic, second observation 79 mm[Hg] Jose Kline blood pressure, syst olic, second observation 129 mm[Hg] Jose Kline oxygen saturation, oximetry 96 % Jose Kline pulse rate 82 /min Jose Kline blood pressure, diastolic 76 mm[Hg] Ra ndy Kline blood pressure, systolic 127 mm[Hg] Ran dy Kline pulse rate #2 79 Jose McPherso n blood pressure, fisher tolic, second observation 83 mm[Hg] Jose Kline blood pressure, syst olic, second observation 138 mm[Hg] Jose Kline oxygen saturation, oximetry 96 % Jose Kline pulse rate 88 /min Jose Kline blood pressure, diastolic 67 mm[Hg] Ra myranday Kline blood pressure, systolic 130 mm[Hg] Ran dy Kline pulse rate #2 79 Jose McPherso n blood pressure, fisher tolic, second observation 80 mm[Hg] Jose Kline blood pressure, syst olic, second observation 132 mm[Hg] Jose Kline oxygen saturation, oximetry 96 % Jose Kline pulse rate 82 /min Jose Kline blood pressure, diastolic 72 mm[Hg] Ra ndy Kline blood pressure, systolic 127 mm[Hg] Ran dy Kline pulse rate #2 81 Jose McPherso n blood pressure, fisher tolic, second observation 80 mm[Hg] Jose Kline blood pressure, syst olic, second observation 140 mm[Hg] Jose Kline oxygen saturation, oximetry 96 % Jose Kline pulse rate 83 /min Jose Kline blood pressure, diastolic 80 mm[Hg] Ra ndy Kline blood pressure, systolic 142 mm[Hg] Ran dy Kline pulse rate #2 72 Jose McPherso n blood pressure, fisher tolic, second observation 81 mm[Hg] Jose Kline blood pressure, syst olic, second observation 142 mm[Hg] Jose Kline oxygen saturation, oximetry 96 % Jose Kline pulse rate 81 /min Jose Kline blood pressure, diastolic 70 mm[Hg] Ra ndy Kline blood pressure, systolic 121 mm[Hg] Ran dy Kline pulse rate #2 90 [facility], fisher tolic, second observation 91 mm[Hg] [facility] blood pressure, syst olic, second observation 153 mm[Hg] [facility] oxygen saturation, oximetry 97 % [facility] pulse rate 87 /min [facility] blood pressure, diastolic 82 mm[Hg] [facility] blood pressure, systolic 143 mm[Hg] [facility] pulse rate #2 75 Jose Loreherso n blood pressure, fisher tolic, second observation 80 mm[Hg] Jose Kline blood pressure, syst olic, second observation 131 mm[Hg] Jose Kline oxygen saturation, oximetry 96 % Jose Kline pulse rate 80 /min Jose Kline blood pressure, diastolic 73 mm[Hg] Ra myranday Kline blood pressure, systolic 135 mm[Hg] Ran dy Kline pulse rate #2 81 Jose McPherso n blood pressure, fisher tolic, second observation 75 mm[Hg] Jose Kline blood pressure, syst olic, second observation 131 mm[Hg] Jose Kline oxygen saturation, oximetry 96 % Jose lKine pulse rate 81 /min Jose Kline blood pressure, diastolic 75 mm[Hg] Ra ndy Kline blood pressure, systolic 131 mm[Hg] Ran dy Kline pulse rate #2 85 Jose McPherso n blood pressure, fisher tolic, second observation 86 mm[Hg] Jose Kline blood pressure, syst olic, second observation 145 mm[Hg] Jose Kline oxygen saturation, oximetry 96 % Jose Kline pulse rate 82 /min Jose Kline blood pressure, diastolic 80 mm[Hg] Ra ndy Kline blood pressure, systolic 137 mm[Hg] Ran dy Kline pulse rate #2 79 Jose McPherso n blood pressure, fisher tolic, second observation 85 mm[Hg] Jose Kline blood pressure, syst olic, second observation 130 mm[Hg] Jose Kline oxygen saturation, oximetry 96 % Jose Kline pulse rate 80 /min Jose Kline blood pressure, diastolic 78 mm[Hg] Ra ndy Kline blood pressure, systolic 133 mm[Hg] Ran dy Kline pulse rate #2 82 Jose McPherso n blood pressure, fisher tolic, second observation 87 mm[Hg] Jose Kline blood pressure, syst olic, second observation 132 mm[Hg] Jose Kline oxygen saturation, oximetry 95 % Jose Kline pulse rate 87 /min Jose Kline blood pressure, diastolic 73 mm[Hg] Ra ndy Kline blood pressure, systolic 132 mm[Hg] Ran dy Kline pulse rate #2 76 Jose McPherso n blood pressure, fisher tolic, second observation 82 mm[Hg] Jose Kline blood pressure, syst olic, second observation 118 mm[Hg] Jose Kline oxygen saturation, oximetry 95 % Jose Kline pulse rate 82 /min Jose Kline blood pressure, diastolic 85 mm[Hg] Ra ndy Kline blood pressure, systolic 131 mm[Hg] Ran dy Kline pulse rate #2 80 Jose McPherso n blood pressure, fisher tolic, second observation 75 mm[Hg] Jose Kline blood pressure, syst olic, second observation 135 mm[Hg] Jose Kline oxygen saturation, oximetry 95 % Jose Kline pulse rate 80 /min Jose Kline blood pressure, diastolic 74 mm[Hg] Ra ndy Kline blood pressure, systolic 133 mm[Hg] Ran dy Kline pulse rate #2 83 Jose McPherso n blood pressure, fisher tolic, second observation 82 mm[Hg] Jose Kline blood pressure, syst olic, second observation 137 mm[Hg] Jose Kline oxygen saturation, oximetry 95 % Jose Kline pulse rate 87 /min Jose Kline blood pressure, diastolic 77 mm[Hg] Ra ndy Kline blood pressure, systolic 132 mm[Hg] Ran dy Kline pulse rate #2 85 Jose McPherso n blood pressure, fisher tolic, second observation 79 mm[Hg] Jose Kline blood pressure, syst olic, second observation 118 mm[Hg] Jose Kline oxygen saturation, oximetry 95 % Jose Kline pulse rate 88 /min Jose Kline blood pressure, diastolic 80 mm[Hg] Ra ndy Kline blood pressure, systolic 135 mm[Hg] Ran dy Kline blood pressure, diastolic 80 mm[Hg] Gregory loree Viera CHANTE blood pressure, systolic 129 mm[Hg] [place] CHANTE pulse rate 82 /min [place] [facility]TE oxygen saturation, oximetry 98 % [place] Viera CHANTE respiratory rate E&M 16 /min [place] markslv SHARIF weight E&M 207 [lb_av] [place] V[place] CHANTE blood pressure, diastolic 80 mm[Hg] Cisco kelley Olson blood pressure, systolic 138 mm[Hg] Lee Olson pulse rate 83 /min Laina Wesley oxygen saturation, oximetry 98 % Laina Wesley respiratory rate E&M 18 /min Laina Huddleston hang weight E&M 213 [lb_av] Laina Olson ALLERGIES Allergy Name Onset Date Reaction Criticality Status INVOKANA Low Criticality active JARDIANCE Low Criticality active OZEMPIC (0.25 OR 0.5 MG/DOSE) High Criticality active VALSARTAN High Criticality active ZOCOR DID NOT TOLREART E ZOCOR 5 Low Criticality active PRAVACHOL lft per primayhr 10 MG Low Criticali ty active LISINOPRIL Low Criticality active RESULTS Date Observation Value Provider Reference Range Interpretation Location pro brain natriuretic peptide 297 pg/mL [facility] 0-301 ferritin, serum 259 ng/mL [facility] 15-150 High iron saturation percent, serum 24 % [facility] 15-55 iron, serum 69 ug/dL [facility] 27-139 iron binding capacity, unsaturated 216 ug/dL [facility] 110-247 8275/06 /07 iron binding capacity, total 285 ug/dL [facility] 877-100 2095/06 /07 lipoprotein, beta, serum, point, quantitative, calculated 34 mg/dL [facility] 0-99 very low density lipoproteins 21 mg/dL [facility] 5-40 HDL cholesterol, serum 54 mg/dL [facility] >39 triglyceride, serum, random 104 mg/dL [facility] 0-149 cholesterol, serum 109 mg/dL [facility] 137-037 0390/09 /29 pro brain natriuretic peptide 135 pg/mL [facility] 0-450 international normalized ratio (INR) 1.0 [facility] 0.9-1.1 prothrombin time (patient) 9.9 Seconds [facility] 9.0-11.5 platelet count 163 Thousand/uL [facility] 835-716 2896/09 /07 Absolute Basophils 0.0 cells/uL [facility] 0.0-0.2 Absolute Monocytes 0.5 cells/uL [facility] 0.2-1.0 Absolute Lymphocytes 2.26 cells/uL [facility] 0.85-3.90 Absolute Neutrophils 3.2 cells/uL [facility] 1.5-7.8 mean corpuscular volume, RBC 96 fL [facility] 75-100 mean corpuscular hemoglobin concentration, RBC 32 g/dL [facility] 31-38 mean corpuscular hemoglobin, RBC 31 pg [facility] 25-35 hematocrit, blood 37 % [facility] 35-55 hemoglobin, blood 11.7 g/dL [facility] 11.5-16.5 erythrocyte count, whole blood 3.8 Million/uL [facility] 3.5-5.5 Estimated Glomerular Filtration Rate (calc) 72 [facility] >59 chloride, serum 103 mmol/L [facility] 98-107 potassium, serum 4.3 mmol/L [facility] 3.5-5.1 sodium, serum 143 mmol/L [facility] 860-733 5598/09 /07 creatinine, serum 0.8 mg/dL [facility] 0.5-0.9 carbon dioxide, venous blood 25 mmol/L [facility] 23-31 calcium, serum 9.7 mg/dL [facility] 8.6-10.2 urea nitrogen, blood 23 mg/dL [facility] 8-23 blood glucose, random 135 mg/dL [facility] 74-99 High microalbumin/creati nine ratio, urine 513.6 MG/G CREATININE [facility] 0.0 - 29.0 High creatinine, random, urine 35.9 mg/dL [facility] 28.0 - 217.0 microalbumin, urine 184.4 [facility] 0.0 - 30.0 High pro brain natriuretic peptide 173.6 pg/mL [facility] 0.0 - 125.0 High very low density lipoproteins 28.8 mg/dL [facility] 5.0 - 40.0 LDL/HDL (low-density lipoprotein/high-de nsity lipoprotein) ratio 0.9 RATIO [facility] - lipoprotein, beta, serum, point, quantitative, calculated 36.2 (?) [facility] 0.0 - 100.0 HDL cholesterol, serum 42.0 mg/dL [facility] 45.0 - 65.0 Low cholesterol, serum 107.0 mg/dL [facility] 0.0 - 200.0 triglyceride, serum, fasting 144.0 mg/dL [facility] 0.0 - 150.0 ferritin, serum 314.1 ng/mL [facility] 13.0 - 150.0 High anion gap, serum 14.7 [facility] - albumin/globulin ratio, serum 1.3 g/dL [facility] 1.1 - 2.5 globulin, serum 3.3 [facility] 2.3 - 3.8 urea nitrogen/creatinine ratio, serum 23.8 [facility] - Estimated Glomerular Filtration Rate (calc) 76.8 (?) [facility] 59.0 - chloride, serum 99.3 mmol/L [facility] 98.0 - 107.0 potassium, serum 4.4 mmol/L [facility] 3.5 - 5.1 sodium, serum 141.0 mmol/L [facility] 136.0 - 145.0 creatinine, serum 0.8 mg/dL [facility] 0.5 - 1.0 carbon dioxide, venous blood 27.0 mmol/L [facility] 23.0 - 31.0 albumin, serum 4.2 g/dL [facility] 3.5 - 5.2 calcium, serum 9.2 mg/dL [facility] 8.6 - 10.2 aspartate aminotransferase (SGOT), serum 22.0 1/L [facility] 0.0 - 32.0 alkaline phosphatase, serum 107.0 1/L [facility] 40.0 - 130.0 alanine aminotransferase (SGPT), serum 19.0 1/L [facility] 0.0 - 33.0 protein, total, serum 7.5 g/dL [facility] 6.6 - 8.7 bilirubin, serum, total 0.3 mg/dL [facility] 0.0 - 1.2 urea nitrogen, blood 19.0 mg/dL [facility] 8.0 - 23.0 blood glucose, random 304.0 mg/dL [facility] 74.0 - 99.0 High iron, serum 68.0 ug/dL [facility] 25.0 - 156.0 iron saturation percent, serum 20.6 % [facility] 20.0 - 50.0 2017/08 /18 iron binding capacity, total 330.4 ug/dL [facility] 250.0 - 450.0 pro brain natriuretic peptide 113.6 pg/mL [facility] 0.0 - 125.0 anion gap, serum 12.5 [facility] - albumin/globulin ratio, serum 1.3 g/dL [facility] 1.1 - 2.5 globulin, serum 3.0 [facility] 2.3 - 3.8 urea nitrogen/creatinine ratio, serum 27.1 [facility] - Estimated Glomerular Filtration Rate (calc) 89.8 (?) [facility] 59.0 - chloride, serum 102.5 mmol/L [facility] 98.0 - 107.0 potassium, serum 4.3 mmol/L [facility] 3.5 - 5.1 sodium, serum 141.0 mmol/L [facility] 136.0 - 145.0 creatinine, serum 0.7 mg/dL [facility] 0.5 - 1.0 carbon dioxide, venous blood 26.0 mmol/L [facility] 23.0 - 31.0 albumin, serum 3.8 g/dL [facility] 3.5 - 5.2 calcium, serum 9.1 mg/dL [facility] 8.6 - 10.2 aspartate aminotransferase (SGOT), serum 21.0 1/L [facility] 0.0 - 32.0 alkaline phosphatase, serum 104.0 1/L [facility] 40.0 - 130.0 alanine aminotransferase (SGPT), serum 20.0 1/L [facility] 0.0 - 33.0 protein, total, serum 6.8 g/dL [facility] 6.6 - 8.7 bilirubin, serum, total 0.3 mg/dL [facility] 0.0 - 1.2 urea nitrogen, blood 19.0 mg/dL [facility] 8.0 - 23.0 blood glucose, random 250.0 mg/dL [facility] 74.0 - 99.0 High ferritin, serum 570.1 ng/mL [facility] 13.0 - 150.0 High red blood cell distribution width, size [facility] 54.8 [facility]L [facility] granulocytes, percentage of total cells, blood 0.7 % [facility] - nucleated red blood cells as percent of blood leukocytes 0.0 % [facility] - red blood cell (erythrocyte) count, per high power field 0.0 10*3/UL [facility] - eosinophils as percent of blood leukocytes 3.3 % [facility] - neutrophils as percent of blood leukocytes 56.0 % [facility] - Absolute Neutrophils 3.4 CELLS/UL [facility] 1.5 - 7.8 basophils as percent of blood leukocytes 0.7 % [facility] - Absolute Basophils 0.0 CELLS/UL [facility] 0.0 - 0.2 monocytes as percent of blood leukocytes 7.4 % [facility] - Absolute Monocytes 0.5 CELLS/UL [facility] 0.2 - 1.0 lymphocytes as percent of blood leukocytes 31.9 % [facility] - Absolute Lymphocytes 1.9 CELLS/UL [facility] 0.9 - 3.9 mean platelet volume 12.2 (?) [facility] - platelet count 180.0 THOUSAND/UL [facility] 100.0 - 400.0 mean corpuscular hemoglobin concentration, RBC 31.3 G/DL [facility] 31.0 - 38.0 mean corpuscular hemoglobin, RBC 29.3 pg [facility] 25.0 - 35.0 mean corpuscular volume, RBC 93.9 fL [facility] 75.0 - 100.0 hematocrit, blood 38.4 % [facility] 35.0 - 55.0 hemoglobin, blood 12.0 g/dL [facility] 11.5 - 16.5 erythrocyte count, whole blood 4.1 MILLION/UL [facility] 3.5 - 5.5 iron, serum 75.0 ug/dL [facility] 25.0 - 156.0 iron saturation percent, serum 22.6 % [facility] 20.0 - 50.0 iron binding capacity, total 331.8 ug/dL [facility] 250.0 - 450.0 folate, serum 20.0 NG/MLM [facility] 5.6 - 45.8 vitamin b12, serum 476.1 pg/mL [facility] 211.0 - 946.0 free thyroxine index 8.4 ??g/dL [facility] 4.4 - 11.4 triiodothyronine uptake 1.0 TBI [facility] 0.8 - 1.3 thyroxine, serum, total 8.4 ??G/DL [facility] 4.5 - 11.7 thyroid stimulating hormone, serum 2.260 ??IU/ML [facility] 0.270 - 4.200 pro brain natriuretic peptide 230.7 pg/mL [facility] 0.0 - 125.0 High very low density lipoproteins 26.2 mg/dL [facility] 5.0 - 40.0 LDL/HDL (low-density lipoprotein/high-de nsity lipoprotein) ratio 1.6 RATIO [facility] - lipoprotein, beta, serum, point, quantitative, calculated 81.8 (?) [facility] 0.0 - 100.0 HDL cholesterol, serum 50.0 mg/dL [facility] 45.0 - 65.0 cholesterol, serum 158.0 mg/dL [facility] 0.0 - 200.0 triglyceride, serum, fasting 131.0 mg/dL [facility] 0.0 - 150.0 ferritin, serum 43.0 ng/mL [facility] 13.0 - 150.0 anion gap, serum 12.0 [facility] - albumin/globulin ratio, serum 2.1 g/dL [facility] 1.1 - 2.5 globulin, serum 3.7 [facility] 2.3 - 3.8 urea nitrogen/creatinine ratio, serum 22.9 [facility] - Estimated Glomerular Filtration Rate (calc) 89.8 (?) [facility] 59.0 - chloride, serum 104.0 mmol/L [facility] 98.0 - 107.0 potassium, serum 4.2 mmol/L [facility] 3.5 - 5.1 sodium, serum 144.0 mmol/L [facility] 136.0 - 145.0 creatinine, serum 0.7 mg/dL [facility] 0.5 - 1.0 carbon dioxide, venous blood 28.0 mmol/L [facility] 23.0 - 31.0 albumin, serum 4.0 g/dL [facility] 3.5 - 5.2 calcium, serum 9.3 mg/dL [facility] 8.6 - 10.2 aspartate aminotransferase (SGOT), serum 26.0 1/L [facility] 0.0 - 32.0 alkaline phosphatase, serum 78.0 1/L [facility] 40.0 - 130.0 alanine aminotransferase (SGPT), serum 21.0 1/L [facility] 0.0 - 33.0 protein, total, serum 7.7 g/dL [facility] 6.6 - 8.7 bilirubin, serum, total 0.3 mg/dL [facility] 0.0 - 1.2 urea nitrogen, blood 16.0 mg/dL [facility] 8.0 - 23.0 blood glucose, random [facility].0 mg[facility]0 red blood cell distribution width, size density 48.1 fL [facility] - immature granulocytes, percentage of total cells, blood 0.8 % [facility] - nucleated red blood cells as percent of blood leukocytes 0.0 % [facility] - red blood cell (erythrocyte) count, per high power field 0.0 10*3/UL [facility] - eosinophils as percent of blood leukocytes 4.5 % [facility] - neutrophils as percent of blood leukocytes 57.7 % [facility] - Absolute Neutrophils 3.5 CELLS/UL [facility] 1.5 - 7.8 basophils as percent of blood leukocytes 0.5 % [facility] - Absolute Basophils 0.0 CELLS/UL [facility] 0.0 - 0.2 monocytes as percent of blood leukocytes 6.4 % [facility] - Absolute Monocytes 0.4 CELLS/UL [facility] 0.2 - 1.0 lymphocytes as percent of blood leukocytes 30.1 % [facility] - Absolute Lymphocytes 1.8 CELLS/UL [facility] 0.9 - 3.9 mean platelet volume 12.3 (?) [facility] - platelet count 184.0 THOUSAND/UL [facility] 100.0 - 400.0 mean corpuscular hemoglobin concentration, RBC 30.2 G/DL [facility] 31.0 - 38.0 Low mean corpuscular hemoglobin, RBC 27.4 pg [facility] 25.0 - 35.0 mean corpuscular volume, RBC 90.8 fL [facility] 75.0 - 100.0 hematocrit, blood 36.4 % [facility] 35.0 - 55.0 hemoglobin, blood 11.0 g/dL [facility] 11.5 - 16.5 Low erythrocyte count, whole blood 4.0 MILLION/UL [facility] 3.5 - 5.5 iron, serum 60.0 ug/dL [facility] 25.0 - 156.0 iron saturation percent, serum 15.5 % [facility] 20.0 - 50.0 Low iron binding capacity, total 386.4 ug/dL [facility] 250.0 - 450.0 hemoglobin A1C, blood, as % of total hemoglobin 7.0 % [facility] 4.0 - 6.0 High reticulocyte count, absolute 0.068 10*6 CELLS/UL [facility] - reticulocyte count, blood, uncorrected 1.70 % [facility] 0.50 - 2.00 triglyceride, target level 150 mg/dL Cynthia Kj [employer] HDL cholesterol, serum, target level 40 mg/dL Cynthia Kj [employer] LDL target level 70 mg/dL Cynthia Faunsdale [employer] cholesterol, target level 200 mg/dL Cynthia Kj [employer] cholesterol/HDL ratio, serum 3.0 Cynthia Kj [employer] triglyceride, serum, fasting 252 mg/dL Cynthia Kj [employer] HDL cholesterol, serum 52 mg/dL Cynthia Kj [employer] LDL cholesterol, serum 53 mg/dL Cynthia Faunsdale [employer] cholesterol, serum 155 mg/dL Cynthia Kj [employer] triglyceride, target level 150 mg/dL Cynthia Kj [employer] HDL cholesterol, serum, target level 40 mg/dL Cynthia Faunsdale [employer] LDL target level 70 mg/dL Cynthia Faunsdale [employer] cholesterol, target level 200 mg/dL Cynthia Kj [employer] cholesterol/HDL ratio, serum 3.4 Cynthia Kj [employer] triglyceride, serum, fasting 153 mg/dL Cynthia Faunsdale [employer] HDL cholesterol, serum 43 mg/dL Cynthia Faunsdale [employer] LDL cholesterol, serum 71 mg/dL Cynthia Kj [employer] cholesterol, serum 144 mg/dL Cynthia Kj [employer] cholesterol/HDL ratio, serum 3.0 Cynthia Kj [employer] triglyceride, serum, fasting 84 mg/dL Cynthia Kj [employer] HDL cholesterol, serum 50 mg/dL Cynthia Faunsdale [employer] LDL cholesterol, serum 84 mg/dL Cynthia Faunsdale [employer] cholesterol, serum 154 mg/dL Cynthia Kj [employer] TOTAL NON-HDL-C (LDL VLDL) 140 Cynthia Kj [employer] cholesterol/HDL ratio, serum 4.9 Cynthia Faunsdale [employer] cholesterol, serum 176 mg/dL Cynthia Kj [employer] Normal triglyceride, target level 150 mg/dL Cynthia Kj [employer] HDL cholesterol, serum, target level 40 mg/dL Cynthia Faunsdale [employer] triglyceride, serum, fasting 202 mg/dL Cynthia Faunsdale [employer] High HDL cholesterol, serum 36 mg/dL Cynthia Kj [employer] Low LDL cholesterol, serum 100 mg/dL Cynthia Kj [employer] High LDL target level 70 mg/dL Cynthia Kj [employer] cholesterol, target level 200 mg/dL Cynthia Faunsdale [employer] triglyceride, target level 150 mg/dL Cynthia Kj [employer] HDL cholesterol, serum, target level 40 mg/dL Cynthia Kj [employer] LDL target level 70 mg/dL Cynthia Faunsdale [employer] cholesterol, target level 200 mg/dL Cynthia Kj [employer] TOTAL NON-HDL-C (LDL VLDL) 142 Cynthia Faunsdale [employer] cholesterol/HDL ratio, serum 5.3 Cynthia Faunsdale [employer] triglyceride, serum, fasting 229 mg/dL Cynthia Kj [employer] High HDL cholesterol, serum 33 mg/dL Cynthia Kj [employer] Low LDL cholesterol, serum 96 mg/dL Cynthia Faunsdale [employer] High cholesterol, serum 175 mg/dL Cynthia Kj [employer] TOTAL NON-HDL-C (LDL VLDL) 129 Cynthia Kj [employer] cholesterol/HDL ratio, serum 4.2 Cynthia Kj [employer] cholesterol, serum 169 mg/dL Cynthia Faunsdale [employer] triglyceride, target level 150 mg/dL Cynthia Faunsdale [employer] HDL cholesterol, serum, target level 40 mg/dL Cynthia Kj [employer] triglyceride, serum, fasting 187 mg/dL Cynthia Faunsdale [employer] High HDL cholesterol, serum 40 mg/dL Cynthia Faunsdale [employer] Normal LDL cholesterol, serum 92 mg/dL Cynthia Kj [employer] High LDL target level 70 mg/dL Cynthia Faunsdale [employer] cholesterol, target level 200 mg/dL Cynthia Kj [employer] TOTAL NON-HDL-C (LDL VLDL) 99 Cynthia Kj [employer] cholesterol/HDL ratio, serum 3.9 Cynthia Kj [employer] cholesterol, serum 131 mg/dL Cynthia Kj [employer] Normal triglyceride, target level 150 mg/dL Cynthia Faunsdale [employer] HDL cholesterol, serum, target level 40 mg/dL Cynthia Kj [employer] triglyceride, serum, fasting 341 mg/dL Cynthia Kj [employer] High HDL cholesterol, serum 34 mg/dL Cynthia Faunsdale [employer] Low LDL cholesterol, serum 30 mg/dL Cynthia Faunsdale [employer] Normal LDL target level 70 mg/dL Cynthia Kj [employer] cholesterol, target level 200 mg/dL Cynthia Kj [employer] TOTAL NON-HDL-C (LDL VLDL) 99 Cynthia Faunsdale [employer] alanine aminotransferase (SGPT), serum 39 1/L Cynthia Faunsdale [employer] aspartate aminotransferase (SGOT), serum 55 1/L Cynthia Kj [employer] cholesterol/HDL ratio, serum 3.8 Cynthia Kj [employer] cholesterol, serum 134 mg/dL Cynthia Faunsdale [employer] Normal triglyceride, target level 150 mg/dL Cynthia Kj [employer] HDL cholesterol, serum, target level 40 mg/dL Cynthia Kj [employer] triglyceride, serum, fasting 152 mg/dL Cynthia Faunsdale [employer] High HDL cholesterol, serum 36 mg/dL Cynthia Kj [employer] Low LDL cholesterol, serum 68 mg/dL Cynthia Kj [employer] Normal LDL target level 70 mg/dL Cynthia Zepedall [employer] cholesterol, target level 200 mg/dL Cynthia Underwood [employer] platelet count 164 10*3/mm3 [facility] hematocrit, blood 34.6 % [facility] lipoprotein, beta, serum, point, quantitative, calculated 77 mg/dL [facility] cholesterol, serum 144 mg/dL [facility] creatinine, serum 0.60 mg/dL [facility] potassium, serum 5.1 mmol/L [facility] sodium, serum 137 mmol/L [facility] thyroid stimulating hormone, serum 1.595 u[IU]/mL [facility] [place] thyroxine, serum, free 0.15 ng/dL [facility] triiodothyronine (T3), serum 233.0 ng/dL [facility] globulins, serum, total 4.3 g/dL [facility] estimated glomerular filtration rate 91.3 mL/min [facility] albumin/globulin ratio, serum 0.9 [facility] protein, total, serum 8.3 g/dL [facility] albumin, serum 4.0 g/dL [facility] bilirubin, serum, total 0.4 mg/dL [facility] alkaline phosphatase, serum 60 1/L [facility] alanine aminotransferase (SGPT), serum 57 1/L [facility] aspartate aminotransferase (SGOT), serum 67 1/L [facility] calcium, serum 9.1 mg/dL [facility] blood glucose, fasting 175 mg/dL [facility] [place] creatinine, serum 0.7 mg/dL [facility] urea nitrogen, blood 23 mg/dL [facility] carbon dioxide, serum, total 28 mmol/L [facility] chloride, serum 105 mmol/L [facility] potassium, serum 4.3 mmol/L [facility] sodium, serum 136 mmol/L [facility] TOTAL NON-HDL-C (LDL VLDL) 120 Lacretijohnny BlairCarpenter NP alanine aminotransferase (SGPT), serum 30 1/[facility] aspartate [facility]otransferase (SGOT), serum 36 1/L [facility] cholesterol/HDL ratio, serum 4 Lacretijohnny BlairCarpenter NP triglyceride, serum, fasting 167 mg/dL [facility] HDL cholesterol, serum 40 mg/dL [facility] LDL cholesterol, serum 86 mg/dL [facility] cholesterol, serum 159 mg/dL [facility] triglyceride, target level 150 mg/dL [facility] HDL cholesterol, serum, target level 40 mg/dL [facility] LDL target level 70 mg/dL [facility] cholesterol, target level 200 mg/dL [facility] creatine kinase, serum <0.2 [facility] Estimated Glomerular Filtration Rate (calc) >60 [facility] calcium, serum 9.1 mg/dL [facility] creatinine, serum 0.50 mg/dL [facility] urea nitrogen, blood 23 mg/dL [facility] carbon dioxide, serum, total 28 mmol/L [facility] chloride, serum 100 mmol/L [facility] potassium, serum 4.4 mmol/L [facility] sodium, serum 138 mmol/L [facility] troponin I <0.02 [facility] triglyceride, serum, fasting 121 mg/dL [facility] HDL cholesterol, serum 46 mg/dL [facility] LDL cholesterol, serum 103 mg/dL [facility] cholesterol, serum 175 mg/dL [facility] PTT patient [address] [facility] prothrombin time (patient) 12.[address] [facility] international normalized ratio (INR) 1.0 [facility] platelet count 202 10*3/uL [facility] red blood cell distribution width 13.3 % [facility] mean corpuscular hemoglobin concentration, RBC 34.0 g/dL [facility] mean corpuscular hemoglobin, RBC 29.[address] [facility] [facility] mean corpuscular volume, RBC 87.[address] [facility] hematocrit, blood 35.4 % [facility] hemoglobin, blood 12.1 g/dL [facility] erythrocyte (RBC) count 4.03 10*6/mm3 [facility] monocyte count, blood 0.3 10*3/mm3 [facility] lymphocyte count, blood 2.2 10*3/mm3 [facility] monocytes as percent of blood leukocytes 4.7 % [facility] lymphocytes as percent of blood leukocytes 32.7 % [facility] leukocyte count, blood 6.8 10*3/mm3 [facility] nitrate usage 0 Sarah Welch HISTORY OF MEDICATION USE Medication Status Instructions Dates Provider Indications Com ments albuterol sulfate 90 mcg/actuation HFA aerosol inhaler active David Vanegas MD rifabutin 150 mg capsule active David Vanegas MD cyclobenzaprine 5 mg tablet completed - David Vanegas MD Xarelto 2.5 mg tablet active TAKE 1 TABLET BY MOUTH TWICE DAILY 09/28 Shania Lozano furosemide 20 mg tablet active TAKE 1 TABLET BY MOUTH ONCE DAILY 09/28 Shania Lozano metoprolol succinate 25 mg tablet extended release 24 hr active TAKE 1 TABLET BY MOUTH ONCE DAILY 09/28 Shania Lozano furosemide 20 mg tablet completed Take 1 tablet by mouth once a day TAKE 1 TABLET DAILY 06/09 - 09/28 Shania Lozano metoprolol succinate 25 mg tablet extended release 24 hr completed Take 1 tablet by mouth once a day TAKE 1 TABLET DAILY 05/30 - 09/28 Shania Lozano Cholestyramine Light 4 gram powder completed - 10/21 David Vanegas MD gabapentin 300 mg capsule active David Vanegas MD glimepiride 2 mg tablet active David Vanegas MD leflunomide 20 mg tablet active David Vanegas MD cetirizine 10 mg tablet completed - 11/17 Isabel Jameelmimanisha MUSTAFA furosemide 20 mg tablet completed TAKE 1 TABLET DAILY 05/03 - 06/09 Marlene Saunders Kerendia 10 mg tablet completed Take 1 tablet by mouth once a day 04/21 - 10/28 David Vanegas MD Invokana 100 mg tablet completed Take 1 tablet by mouth once a day 03/01 - 04/21 Scarlet Cooper RN metoprolol succinate 25 mg tablet extended release 24 hr completed TAKE 1 TABLET DAILY 04/26 - 05/30 Laina Olson atorvastatin 40 mg tablet active TAKE 1 TABLET DAILY AT BEDTIME 04/26 David Vanegas MD aspirin 81 mg tablet,delayed release (DR/EC) active TAKE 1 TABLET DAILY 04/26 David Vanegas MD Xarelto 2.5 mg tablet completed Take 1 tablet by mouth twice a day Take 1 tablet by mouth twice daily 03/30 - 09/28 Shania Lozano Farxiga 10 mg tablet completed Take 1 tablet by mouth once a day 03/30 - 03/01 Scarlet Cooper RN Kerendia 10 mg tablet completed Take 1 tablet by mouth once a day 03/30 - 04/21 Ella rOr NP Humalog KwikPen Insulin 100 unit/mL insulin pen completed - 04/21 David Vanegas MD famotidine 20 mg tablet completed - 10/28 David Vanegas MD duloxetine 20 mg capsule,delayed release(DR/EC) active David Vaneags MD atorvastatin 40 mg tablet completed - 04/26 David Vanegas MD furosemide 20 mg tablet completed - 03/30 David Vanegas MD Iron (ferrous sulfate) 325 mg (65 mg iron) tablet active David Vanegas MD Nexium 24HR 20 mg tablet,delayed release (DR/EC) completed tablet by mouth once a day 03/30 David Vanegas MD amlodipine 2.5 mg tablet completed - 03/30 David Del TorooStar U-300 Insulin 300 unit/mL (1.5 mL) insulin pen active David Clark U-300 Insulin 300 unit/mL (1.5 mL) insulin pen completed 78 unit once a day 03/01 - 03/30 Marlene Saunders #22, 87 days supply, Prescribed by LIGIA CANTU, Filled 12/31/2019 K + [id number] completed take one tablet by mouth once daily 09/27 - 03/27 Marlene Saunders JARDIANCE 10 MG ORAL TABLET completed TAKE ONE TABLET BY MOUTH ONCE DAILY on hold per surgeron 09/27 - 03/27 Marlene Saunders Norvasc 2.5 mg tablet completed 1 tablet once a day 09/27 - 03/30 David Vanegas MD duloxetine 30 mg capsule,delayed release(DR/EC) completed Take 1 tablet once a day 08/02 - 03/30 Marry Henson ESTRADIOL 1 MG ORAL TABLET completed as directed - 08/02 David Vanegas MD SYMBICORT AEROSOL completed as directed - 08/02 David Vanegas MD metoprolol succinate 25 mg tablet extended release 24 hr completed 1 1/2 tablet once a day 10/14 - 04/26 David Vanegas MD Substitute while Atenolol on backorder Nexium 24HR 20 mg tablet,delayed release (DR/EC) completed once a day 10/13 - 03/30 David Vanegas MD atorvastatin 40 mg tablet completed Take 1 tablet every night 08/09 - 03/30 David Vanegas MD ALPRAZOLAM 0.25 MG ORAL TABLET completed as needed - 09/27 Ruba Ray Lasix 20 mg tablet completed once a day 10/29 - 03/30 David Vanegas MD cholecalciferol (vitamin D3) 125 mcg (5,000 unit) tablet active once a day 10/02 David Vanegas MD Singulair 10 mg tablet completed 1 tablet once a day 10/02 - 10/10 David Vanegas MD hydroxychloroquin e 200 mg tablet active twice a day 10/02 Pascale Ortiz SYMBICORT 160-4.5 MCG/ACT INHALATION AEROSOL completed 1 puff twice daily 10/02 - 03/27 Uzma Tejeda ProAir HFA 90 mcg/actuation HFA aerosol inhaler completed 2 puff every four to six hours 10/02 - David Vanegas MD VERAMYST 27.5 MCG/SPRAY NASAL SUSPENSION completed once a day 10/02 - 03/30 Pascale Ortiz EQL POTASSIUM GLUCONATE 595 (99 K) MG ORAL TABLET completed once daily 10/02 - 03/27 IsaelShirin Wiggins gabapentin 600 mg tablet completed as directed 10/02 - 03/30 David Vanegas MD aspirin 81 mg tablet,delayed release (DR/EC) completed 1 tablet by mouth once a day 10/02 - 04/26 David Vanegas MD METOCLOPRAMIDE HCL TABLET completed take one pill a day 09/26 - 10/02 Pascale Ortiz PREDNISONE (JESUS) TABS completed taper does right now 1 pill a day will be done in 5 more days 09/26 - 10/02 Pascale Ortiz Fish Oil 300-1,000 mg capsule completed 2 once a day 07/10 - 03/30 David Vanegas MD NIASPAN 500 MG ORAL TABLET EXTENDED RELEASE completed ONE TAB. AT BEDTIME - Dispense as written 04/09 - 03/22 David Vanegas MD ONGLYZA 5 MG ORAL TABLET completed 1 tab daily - 03/26 Cynthia Underwood NP Synthroid 100 mcg tablet active 1 tablet once a day 10/02 David Vanegas MD HUMALOG SOLUTION completed 1 10/06 - 03/30 David Vanegas MD OMEGA-3 FISH OIL 1000 MG ORAL CAPSULE completed One tab. daily 09/14 - 03/27 Mile Connors ZOCOR 5 MG ORAL TABLET completed ONE TAB. AT BEDTIME 09/14 - 03/20 Cynthia Underwood NP VITAMIN D TABLET completed take one pill a day 09/14 - 03/27 Marlene Saunders One-A-Day Women's Complete 18 mg-400 mcg- 25 mcg tablet completed Take 1 once a day 09/14 - 03/30 Marlene Saunders ULTRACET 37.5-325 MG ORAL TABLET completed as needed for pain 09/14 - 03/27 Koki Crowell PRAVACHOL 40 MG ORAL TABLET completed ONE TAB. DAILY 09/09 - 03/27 Marlene Saunders BACLOFEN 10 MG ORAL TABLET completed 1 tab daily - 03/27 Marlene Saunders GABAPENTIN 100 MG ORAL CAPSULE completed 1 tab daily - 03/27 Marlene Saunders CLONAZEPAM TABLET completed 1 tab daily - 03/27 Marlene Saunders DICLOFENAC SODIUM 75 MG ORAL TABLET DELAYED RELEASE completed 1 tab twice daily - 03/27 Marlene Saunders JANUVIA 100 MG ORAL TABLET completed 1 tab daily - 03/27 Koki Stsoni CALCIUM 500 +D TABLET completed 1 tab daily - 03/27 Isael Wiggins LANTUS SOLUTION completed 75 units in evening 09/26 - 03/27 Marlene Saunders DIOVAN 40 MG ORAL TABLET completed ONE TAB. DAILY 09/20 - 08/04 Cynthia Underwood [employer] FEMHET completed 03/03 tab one tab daily - 10/02 Pascale Ortiz LISINOPRIL 5 MG ORAL TABLET completed ONE TAB. DAILY 10/17 - 03/18 Salinas Viera RN SEREVENT DISKUS AEROSOL POWDER BREATH ACTIVATED completed twice daily - 03/27 Jordin Lovett FLONASE SUSPENSION completed twice daily - 03/27 Mile Connors ASPIRIN 81 MG ORAL TABLET completed ONE TAB. DAILY - 09/20 David Vanegas MD ATENOLOL 25 MG ORAL TABLET completed ONE TAB. DAILY 09/07 - 10/14 Yarijohnny CovingtonNancy Change to Metoprolol while on backorder CALCIUM CARBONATE TABLET completed 1 tablet twice daily - 08/06 Melissa Sherly MULTIVITAMINS ORAL CAPSULE completed ONE TAB. DAILY - 03/27 Jordin Lovett LESCOL XL 80 MG ORAL TABLET EXTENDED RELEASE 24 HOUR completed 1 tablet daily - 08/07 David Vanegas MD SANCTURA 20 MG ORAL TABLET completed twice daily - 03/18 Salinas Viera RN metformin 1,000 mg tablet active twice a day 10/13 David Vanegas MD AVANDIA 4 MG ORAL TABLET completed BID - 10/17 Laina Olson GLYBURIDE TABLET completed two 5 mg twice daily - 08/06 Melissa Sherly NEXIUM 40 MG ORAL CAPSULE DELAYED RELEASE completed ONE TAB. DAILY 10/13 - 10/13 Milly Sosa RN d/t ins wont cover changed to lansoprazole LIOTHYRONINE SODIUM 25 MCG ORAL TABLET completed take one tablet twice daily - 03/27 Koki Crowell SOCIAL HISTORY Date Observation Value Provider drug use no David Soriano alcohol use no David Soriano chewing tobacco use Never David winslow MD smoking, year quit 1997 David cannon MD smoking history, tot al pack/year 37 David Vanegas MD smoking history, tot al pack/day 1 David Vanegas MD cigarette use yes David Vanegas MD smoking status Former smoker David turner MD drug use no David Serota M D alcohol use no David Serota M D chewing tobacco use Never David winslow MD smoking, year quit 1997 David cannon MD smoking history, tot al pack/year 35 David Vanegas MD smoking history, tot al pack/day 1 David Vanegas MD cigarette use yes David Vanegas MD smoking status Former smoker David turner MD drug use no David Hall D alcohol use no David Vanegas M D chewing tobacco use Never David winslow MD smoking, year quit 1997 David cannon MD smoking history, tot al pack/year 35 David Vanegas MD smoking history, tot al pack/day 1 David Vanegas MD cigarette use yes David Vanegas MD smoking status Former smoker David turner MD drug use no Isabel Ventimig della [facility] alcohol use no Isabel Ventimig della [facility] smoking status Former smoker Isabel Venti miglia [facility] social history E&M Marital Statu s: L demi with family/friends E thnicity: C hildren: 4 children P atient is a former smoker. R egular Exercise - no S moking History: P atient is a former smoker. David Vanegas MD social history reviewed E&M revi ewed - no changes required David Vanegas MD social history E&M Marital Statu s: L demi with family/friends E thnicity: C hildren: 4 children P atient is a former smoker. R egular Exercise - no Smoking History: P atient is a former smoker. David Vanegas MD social history reviewed E&M revi ewed - no changes required David Vanegas MD physical exercise, frequency, days per week no Charlette Benitez caffeine use, averag e drinks per day yes Charlettegenet Marquis chewing tobacco use Never Charlette Da solitario smoking, year quit 1997 Charlette Dennis is smoking history, tot al pack/year 35 Charlette Benitez smoking history, tot al pack/day 1 Charlette Benitez cigarette use yes Charlette Benitez smoking status Former smoker Charlette Benitez social history reviewed E&M revi ewed - no changes required David Vanegas MD quit smoking, stage quit David winslow MD social history reviewed E&M revi ewed - no changes required Ella Orr NP physical exercise, frequency, days per week no Ting [place] caffeine use, averag e drinks per day yes Ting [place] chewing tobacco use Never Catherin e Fran smoking, year quit 1997 Ting [place] smoking history, tot al pack/year 35 Ting Fran smoking history, tot al pack/day 1 Ting [place] cigarette use yes Ting [place] smoking status Former smoker Ting Ot is quit smoking, stage quit David winslow MD social history E&M Marital Statu s: L demi with family/friends E thnicity: C hildren: 4 children P percy is a former smoker. R egular Exercise - no S moking History: Leilani greer is a former smoker. David Vanegas MD social history reviewed E&M bharath ewed - no changes required David Vanegas MD physical exercise, frequency, days per week no Marlene Gruenenfelder caffeine use, averag e drinks per day yes Marlene Jamiler chewing tobacco use Never Marlene win smoking, year quit 1997 Marlene soto smoking history, tot al pack/year 35 Marlene Jamiler smoking history, tot al pack/day 1 Marlene Jamiler cigarette use yes Marlene Castorena elder smoking status Former smoker Marlene coatselder social history reviewed E&M revi ewed - no changes required David Vanegas MD quit smoking, stage quit David winslow MD social history E&M Marital Statu s: L demi with family/friends E thnicity: C hildren: 4 children Leilani greer is a former smoker. R egular Exercise - no Smoking History: Leilani greer is a former smoker. David Vanegas MD social history reviewed E&M revi ewed - no changes required David Vanegas MD physical exercise, frequency, days per week no Marry Henson alcohol use, average drinks per day social Marry Henson alcohol use yes Marry rivera caffeine use, averag e drinks per day yes Marry Henson chewing tobacco use Never Marry Henson smoking, year quit 1997 Marry [place] smoking history, tot al pack/year 35 Marry Henson smoking history, tot al pack/day 1 Marry Henson cigarette use yes Marry velazquez smoking status Former smoker Marry calix physical exercise, frequency, days per week no Isael Wiggins alcohol use, average drinks per day social Isael Wiggins alcohol use yes Isael mansfield caffeine use, averag e drinks per day yes Isael Wiggins chewing tobacco use Never Niall Wiggins smoking, year quit 1997 Isael Wiggins smoking history, tot al pack/year 35 Isael Wiggins smoking history, tot al pack/day 1 Isael Wiggins cigarette use yes Isael joseph smoking status Former smoker Isael [place] social history E&M Marital Statu s: L demi with family/friends E thnicity: C hildren: 4 children P att[place] is a former smoker. R egular Exercise - no Smoking History: P atient is a former smoker. David Vanegas MD social history reviewed E&M revi ewed - no changes required David Vanegas MD physical exercise, frequency, days per week no Isael Wiggins alcohol use, average drinks per day social Isael Wiggins alcohol use yes Isael mansfield caffeine use, averag e drinks per day yes Isael Wiggins chewing tobacco use Never Niall Wiggins smoking, year quit 1997 Isael Wiggins smoking history, tot al pack/year 35 Isael Wiggins smoking history, tot al pack/day 1 Isael Wiggins cigarette use yes Isael joseph smoking status Former smoker Isael [place] quit smoking, stage quit David winslow MD social history E&M Marital Statu s: L demi with family/friends E thnicity: C hildren: 4 children P atient is a former smoker. R egular Exercise - no Smoking History: P att[place] is a former smoker. David Vanegas MD social history reviewed E&M revi ewed - no changes required David Vanegas MD physical exercise, frequency, days per week no Uzma Ileana alcohol use, average drinks per day social Uzma Ileana alcohol use yes Uzma Ileana caffeine use, averag e drinks per day yes Uzma Ileana chewing tobacco use Never Uzma Vo ss smoking, year quit 1997 Uzma Blaire s smoking history, tot al pack/year 35 Uzma Ileana smoking history, tot al pack/day 1 Uzma Ileana cigarette use yes Uzma Ileana smoking status Former smoker Uzma Ileana chewing tobacco use Never Cynthia lewislouis [employer] smoking status Former smoker Cynthia Zepeda marcus [employer] social history E&M Marital Statu s: L demi with family/friends E thnicity: C hildren: 4 children P atient is a former smoker. R egular Exercise - no Smoking History: P atient is a former smoker. David Vanegas MD social history reviewed E&M revi ewed - no changes required David Vanegas MD physical exercise, frequency, days per week no Pascale Ortiz alcohol use, average drinks per day social Pascale Ortiz alcohol use yes Pascale Ortiz caffeine use, averag e drinks per day yes Pascale Ortiz smoking, year quit 1997 Pascale Rafael Malin smoking history, tot al pack/year 35 Pascale Ortiz smoking history, tot al pack/day 1 Pascale Ortiz cigarette use yes Pascale Ortiz smoking status Former smoker Pascalekevin Welchjohnny abdi social history reviewed E&M revi ewed - no changes required David Vanegas MD number of grandchildren David Ray quit smoking, stage quit David winslow MD social history E&M Marital Statu s: L demi with family/friends E thnicity: C hildren: 4 children P atient is a former smoker. R egular Exercise - no Smoking History: P percy is a former smoker. David Vanegas MD social history reviewed E&M bharath figueroa - no changes required David Vanegas MD physical exercise, frequency, days per week no Isael Wiggins alcohol use, average drinks per day social Isael Wiggins alcohol use yes Isael Delarosa nson caffeine use, averag e drinks per day yes Isael Wiggins smoking, year quit 1998 Isael Wiggins smoking history, tot al pack/year 35 Isael Wiggins smoking history, tot al pack/day 1 Isael Wiggins cigarette use yes Isael joseph smoking status Former smoker Isael [place] smoking status Former smoker Cynthia velazquez [employer] smoking/tobacco cess ation, patient education and counseling yes Cynthia Underwood [employer] smoking status Former smoker Cynthia velazquez [employer] quit smoking, stage quit David winslow MD handedness R Handed David Soriano physical exercise, frequency, days per week no Pascale Ortiz alcohol use, average drinks per day social Pascale Ortiz alcohol use yes Pascale Ortiz caffeine use, averag e drinks per day yes Pascale Ortiz smoking/tobacco cess ation, patient education and counseling yes Pascale Ortiz smoking, year quit 1997 Pascale Malin smoking history, tot al pack/year 35 Pascale Angel smoking history, tot al pack/day 1 Pascale Ortiz cigarette use yes Pascale Ortiz smoking status Former smoker Pascale Marla abdi social history E&M Marital Statu s: L demi with family/friends E thnicity: C hildren: 4 children P attapan is a former smoker. R egular Exercise - no Smoking History: P attapan is a former smoker. Leilani greer has been counseled to quit. Cynthia Underwood NP smoking/tobacco cess ation, patient education and counseling yes Cynthia Underwood NP smoking status Former smoker Cynthia Lemosjacqueline velazquez NP quit smoking, stage quit David winslow MD alcohol use, average drinks per day social Marlene Saunders alcohol use yes Marlene Ervin salterer smoking history, tot al pack/year 35 Marlene Nicky smoking history, tot al pack/day 1 Marlene Nicky cigarette use yes Marlene Rajputwon [place] smoking status Former smoker Marlene Da Silva jorge leldmisty smoking history, tot al pack/year 20 David Vanegas MD social history reviewed E&M reviewed David Vanegas MD smoking, year quit 1997 Koki Garret hamzah smoking status former smoker Koki Stbobe r social history reviewed E&M reviewed David Vanegas MD quit smoking, stage quit David winslow MD social history reviewed E&M reviewed Salinas Viera RN smoking status quit Les Blair els, NP social history reviewed E&M reviewed Les Carpenter NP quit smoking, stage quit David winslow MD social history reviewed E&M reviewed Salinas Viera RN social history reviewed E&M reviewed Salinas Viera RN social history reviewed E&M reviewed Salinas Viera RN social history reviewed E&M reviewed Salinas Viera RN number of children 4 children David cannon MD social history E&M Marital Statu s: L demi with family/friends E thnicity: C hildren: 4 children David Vanegas MD social history reviewed E&M reviewed David Vanegas MD physical exercise, frequency, days per week no [employer] caffeine use, averag e drinks per day yes LinkLog alcohol use, average drinks per day [facility] FUNCTIONAL STATUS Date Observation Value Provider HRA, CV Assess/Plan, Angina (inactive) Management Plan continue current therapy David Vanegas MD HRA, CV Assess/Plan, Angina (inactive) Management Plan continue current therapy David Vanegas MD HRA, CV Assess/Plan, Angina (inactive) Management Plan continue current therapy David Vanegas MD HRA, CV Assess/Plan, Angina (inactive) Management Plan continue current therapy Isabel VILLEDAP HRA, CV Assess/Plan, Angina (inactive) Management Plan continue current therapy David Vanegas MD HRA, CV Assess/Plan, Angina (inactive) Management Plan continue current therapy David Vanegas MD HRA, CV Assess/Plan, Angina (inactive) Management Plan continue current therapy David Vanegas MD HRA, CV Assess/Plan, Angina (inactive) Management Plan continue current therapy David Vanegas MD HRA, CV Assess/Plan, Angina (inactive) Management Plan continue current therapy David Vanegas MD HRA, CV Assess/Plan, Angina (inactive) Management Plan continue current therapy David Vanegas MD HRA, CV Assess/Plan, Angina (inactive) Management Plan continue current therapy David Vanegas MD HRA, CV Assess/Plan, Angina (inactive) Management Plan continue current therapy David Vanegas MD MENTAL STATUS Date Observation Value Provider energy level yes Chayo Tebid energy level yes Kennerdell Tebid energy level yes Kennerdell Tebid energy level yes Kennerdell Tebid energy level yes Kennerdell Tebid energy level yes Kennerdell Tebid energy level yes Kennerdell Tebid energy level yes Kennerdell Tebid energy level yes Chayo Tebid energy level yes Chayo Tebid energy level yes Chayo Tebid energy level yes Chayo Tebid energy level yes Kennerdell Tebid energy level yes Chayo Tebid energy level yes Kennerdell Tebid energy level yes Chayo Tebid energy level yes Chayo Tebid energy level yes Kennerdell Tebid energy level yes Kennerdell Tebid energy level yes Kennerdell Tebid energy level yes Kennerdell Tebid energy level yes Kennerdell Tebid energy level yes Kennerdell Tebid energy level yes Kennerdell Tebid energy level yes Kennerdell Tebid energy level yes Kennerdell Tebid energy level yes Kennerdell Tebid energy level yes Kennerdell Tebid energy level yes Kennerdell Tebid energy level yes Kennerdell Tebid energy level yes Kennerdell Tebid energy level no Kennerdell Tebid energy level no Kennerdell Tebid energy level no Kennerdell Tebid assessment of judgme nt and insight E&M Alert and oriented to time, place and person. Mood and affect are normal. Cynthia Underwood NP assessment of judgme nt and insight E&M Alert and oriented to time, place and person. Mood and affect are normal. Cynthia Underwood NP assessment of judgme nt and insight E&M Alert and oriented to time, place and person. Mood and affect are normal. David Vanegas MD assessment of judgme nt and insight E&M Alert and oriented to time, place and person. Mood and affect are normal. David Vanegas MD assessment of judgme nt and insight E&M Alert and oriented to time, place and person. Mood and affect are normal. Salinas Viera RN assessment of judgme nt and insight E&M Alert and oriented to time, place and person. Mood and affect are normal. Salinas Viera RN assessment of judgme nt and insight E&M Alert and oriented to time, place and person. Mood and affect are normal. Salinas Viera RN assessment of judgme nt and insight E&M Alert and oriented to time, place and person. Mood and affect are normal. Salinas Viera RN energy level yes Jose Kline energy level yes Jose Kline energy level yes Jose Kline energy level yes Jose Kline energy level yes Jose Kline energy level yes Jose Kline energy level yes Jose Kline energy level yes Jose Kline energy level yes Jose Kline energy level yes Jose Kline energy level yes Jose Kline energy level yes Jose Kline energy level yes Jose Kline energy level yes Jose Kline energy level yes Jose Kline energy level yes Jose Kline energy level yes Jose Kline energy level yes Jose Kline energy level yes Jose Kline energy level yes Jose Kline energy level yes Jose Kline energy level yes Jose Kline energy level yes Jose Kline energy level yes Jose Kline energy level yes Jose Kline energy level no Sarah Welch energy level yes Jose Kline energy level yes Jose Kline energy level yes Jose Kline energy level yes Jose Kline energy level yes Jose Kline energy level yes Jose Kline energy level yes Jose Kline energy level no Josekitty SchofieldKline energy level no Jose Kline assessment of judgme nt and insight E&M Alert and oriented to time, place and person. Mood and affect are normal. Salinas Viera RN assessment of judgme nt and insight E&M Alert and oriented to time, place and person. Mood and affect are normal. Salinas Viera RN FAMILY HISTORY Family Member Condition Mother Family History of Di abetes: INSURANCE PROVIDERS Payer name Policy type / Coverage type [place] red libertarian ID [facility] [id number] [place] Medicare [id number] ADVANCE DIRECTIVES Name Date DISCUSSED - NO DECISION MADE TREATMENT PLAN Date Name Performer [id number],C,mod David cannon MD [id number],S,weight loss e ncouraged. [facility] [id number],S, H er updated medication list for this problem includes: Atorvastatin 40 Mg Tablet (Atorvastatin) ..... Take 1 tablet daily at bedtime [facility] [id number],C,B P well controlled per home RPM average is 131/65 C ontiue present medication regimen H er updated medication list for this problem includes: Metoprolol Succinate 25 Mg Tablet Extended Release 24 Hr (Metoprolol succinate) ..... Take 1 tablet by mouth once a day take 1 tablet daily Aspirin 81 Mg Tablet,delayed Release (dr/ec) (Aspirin) ..... Take 1 tablet daily Furosemide 20 Mg Tablet (Furosemide) ..... Take 1 tablet by mouth once a day take 1 [facility] [id number],S,H as CPAP and is compliant. concern that needs updated settings given progressive SOB. Will repeat [facility] on CPAP [facility] [id number],C,W ith EF of 65%. Has been unable to tolerate Jardiance. Remains on diuretic. Her BP is well controlled. Will plan [facility] study to see if helps with symptoms. H er updated medication list for this problem includes: Metoprolol Succinate 25 Mg Tablet Extended Release 24 Hr (Metoprolol succinate) ..... Take 1 tablet by mouth once a day take 1 tablet daily Aspirin 81 Mg Tablet,delayed Release (dr/ec) (Aspirin) ..... Take 1 tablet daily Furosemide 20 Mg Tablet (Furosemide) ..... Take 1 tablet by mouth once a day take 1 tablet daily Isabel Frankel [facility] [id number],S,O nly mild on recent echo. Will monitor. Isabel Frankel [facility] [id number],W,H as had ongoing progressive SOB that is getting more limiting. She had recent ER visit and Kevin and was sent back to use for further eval. We did do SHAWANDA as concern that mitral stenosis may have been contributing to her symptoms. SHAWANDA however, showed EF of 65% with mild MR. This does not reflect her SOB. Previous cath in 2017 with mild CAD. Will update stress test. Will also plan f/u [facility] on CPAP to ensure proper settings. We will also refer for [facility] study H er updated medication list for this problem includes: Metoprolol Succinate 25 Mg Tablet Extended Release 24 Hr (Metoprolol succinate) ..... Take 1 tablet by mouth once a day take 1 tablet daily Aspirin 81 Mg Tablet,delayed Release (dr/ec) (Aspirin) ..... Take 1 tablet daily Furosemide 20 Mg Tablet (Furosemide) ..... Take 1 tablet by mouth once a day take 1 tablet daily Isabel Frankel [facility] [id number],C,7.4 David cannon MD [id number],B, David turner MD [id number],S, 5 5 David Vanegas MD [id number],S, H eart monitor revealed no arrythmias. SR with no ectopy, pauses. neg hep [place] n eg neg vd for edma David Jacquesa [id number],S, a bi less then .6 with cladicoiatn d ista dz by angio David Jacquesjohnny HANSON [id number],S, n eg rpr and b12 David Jacquesa [id number],S, 1 100 David Serota [id number],S, David Serot a [id number],S, s core 110 N o angina 3 0% distal lad David Jacquesjohnyn HANSON [id number],B, s tii; anemic on iron H AD INFUSIN AND RESOVLED N, HAD COLON, David Jacquesjohnny HANSON [id number],S, David Serot a [id number],S,d ue to ms? 2 97 David Vanegas [id number],S, m odeated ms and midl mr David Vanegas [id number],C,modeated ms a nd midl mr David Vanegas [id number],S,8.2 David Se rota [id number],S, David Serot a [id number],S, 2 97 David Jacquesa [id number],S, H eart monitor revealed no arrythmias. SR with no ectopy, pauses. neg hep [place] n eg neg vd for edma David Vanegas [id number],S, n eg rpr and b12 David Jacquesa [id number],S, a bi less then .6 with cladicoiatn d ista dz by angio Davidkrissy Jacquesjohnny HANSON [id number],S, David Serot a [id number],S, M oderate MS , Mild MR. on echo 03/2021. repeat next year David Vanegas MD [id number],S, s core 110 N o angina 3 0% distal lad David Vanegas MD [id number],B, s tii; anemic on iron H AD INFUSIN AND RESOVLED N, HAD COLON, Davidkrissy Jacquesjohnny HANSON [id number],S, David Serot a [id number],B, s tii; anemic on iron H AD INFUSIN AND RESOVLED N, HAD COLON, David Vanegas MD [id number],S,8.2 David cannon MD [id number],B,55 David Ser joselin HANSON [id number],S, n eg rpr and b12 David Vanegas MD [id number],S, David Serot a [id number],S,s tii; anemic on iron H AD INFUSIN AND RESOVLED N, HAD COLON, David Vanegas MD [id number],C,6.7 David cannon MD [id number],S,a bi less then .6 with cladicoiatn d ista dz by angio David Vanegas MD [id number],S,s core 110 N o angina 3 0% distal lad David Vanegas MD [id number],S, H eart monitor revealed no arrythmias. SR with no ectopy, pauses. neg hep [place] n eg neg vd for edma ,neg uiacr David Vanegas MD [id number],B, H eart monitor revealed no arrythmias. SR with no ectopy, pauses. David Vanegas MD [id number],S, 2 97 David Vanegas MD [id number],S,efgr 45 Sima Vanegas MD [id number],S, M oderate MS , Mild MR. on echo 03/2021. repeat next year David Vanegas MD [id number],C, 5 .8 F arxiga too expensive, invokana diarhrrea. was on jardiance in the past but thinks she had a reaction as well. C urrently on metformin and insulin Ella Orr NP [id number],C,s tart kerendia H er updated medication list for this problem includes: Metoprolol Succinate 25 Mg Tablet Extended Release 24 Hr (Metoprolol succinate) ..... Take 1 tablet daily Aspirin 81 Mg Tablet,delayed Release (dr/ec) (Aspirin) ..... Take 1 tablet daily Ella Orr NP [id number],C,N o angina 3 0% distal lad Ella Orr NP [id number],C,M oderate MS , Mild MR. on echo 03/2021. repeat next year Ellatito Orr NP [id number],C,H eart monitor revealed no arrythmias. SR with no ectopy, pauses. Ella Orr NP [id number],C,mod ms with m ild mr David Vanegas MD [id number],S, David turner MD [id number],S, r echeck echo to eval David Vanegas MD [id number],S,297 David cannon MD [id number],S,1100 David S goldy [id number],S,n eg hep [place] n eg neg vd for edma ,neg uiacr David Vanegas MD [id number],C,5.8 David Se davis HANSON [id number],C,dista dz by a peri Vanegas MD [id number],B,andersojn bb increaed David Vanegas MD [id number],S, n eg rpr and b12 David Vanegas MD [id number],S, David turner MD [id number],S, F ollows with pulmonary David Vanegas MD [id number],S, 3 0% distal lad David Vanegas MD Cardiology:8 David Vanegas MD Cardiology: H eart monitor revealed no arrythmias. SR with no ectopy, pauses. n eg neg vd for edma David Vanegas MD Cardiology:mild to m od ms by shawanda at cne 24, mid mr and mr David Vanegas MD Cardiology David Vanegas MD Cardiology David Vnaegas MD Cardiology: a bi less then .6 with cladicoiatn d ista dz by angio David Vanegas MD Cardiology David Vanegas MD Cardiology: s tii; anemic on iron H AD INFUSIN AND RESOVLED N, HAD COLON, David Vanegas MD Cardiology: 2 97 W ith EF of 65%. Has been unable to tolerate Jardiance David Vanegas MD Cardiology: 4 2 3 9 David Vanegas MD Cardiology David Vanegas MD Cardiology:The patie nt is using CPAP on a regular basis. The patient has been benefiting from therapy and should continue use. David Vanegas MD Cardiology: w eight loss encouraged. David Vanegas MD Cardiology:7.1 David Vanegas MD Cardiology:3800 1 100 David Vanegas MD Cardiology: 2 97 W ith EF of 65%. Has been unable to tolerate Jardiance.\blet daily David Vanegas MD Cardiology: a bi less then .6 with cladicoiatn d ista dz by angio David Vanegas MD Cardiology: H eart monitor revealed no arrythmias. SR with no ectopy, pauses. neg hep [place] n eg neg vd for edma David Vanegas MD Cardiology:abby sherman , ms pregresson by echo at [facility] ms and rm bye shawanda 2022 2 97 David Vanegas MD Cardiology David Vanegas MD Cardiology David Vanegas MD Cardiology:neg pet 2 4 s core 110 N o angina 3 0% distal lad David Vanegas MD Cardiology:42 3 9 David Vanegas MD Cardiology:39 David Vanegas MD Cardiology:7.1 David Vanegas MD Cardiology: s tii; anemic on iron H AD INFUSIN AND RESOVLED N, HAD COLONDavid MD Cardiology: a bi less then .6 with cladicoiatn d ista dz by brock Vanegas MD Cardiology David Vanegas MD Cardiology: s core 110 N o angina 3 0% distal lad David Vanegas MD Cardiology: s tii; anemic on iron H AD INFUSIN AND RESOVLED N, HAD COLONDavid MD Cardiology David Vanegas MD Cardiology:mild ms a nd rm bye shawanda 2022 2 97 David Vanegas MD Cardiology David Vanegas MD Cardiology:297 W ith EF of 65%. Has been unable to tolerate Jardiance.\blet daily David Vanegas MD Cardiology:The patie nt is using CPAP on a regular basis. The patient has been benefiting from therapy and should continue use. mod, on rx needs new titarton David Vanegas MD needs titration:nayeli turner MD Cardiology:weight loss encourage d. [facility] Cardiology: H er updated medication list for this problem includes: Atorvastatin 40 Mg Tablet (Atorvastatin) ..... Take 1 tablet daily at bedtime [facility] Cardiology:BP well c ontrolled per home RPM average is 131/65 C ontiue present medication regimen H er updated medication list for this problem includes: Metoprolol Succinate 25 Mg Tablet Extended Release 24 Hr (Metoprolol succinate) ..... Take 1 tablet by mouth once a day take 1 tablet daily Aspirin 81 Mg Tablet,delayed Release (dr/ec) (Aspirin) ..... Take 1 tablet daily Furosemide 20 Mg Tablet (Furosemide) ..... Take 1 tablet by mouth once a day take [address] [facility] Cardiology:Has CPAP and is compliant. concern that needs updated settings given progressive SOB. Will repeat [facility] on CPAP [facility] Cardiology:With EF o f 65%. Has been unable to tolerate Jardiance. Remains on diuretic. Her BP is well controlled. Will plan [facility] study to see if helps with symptoms. H er updated medication list for this problem includes: Metoprolol Succinate 25 Mg Tablet Extended Release 24 Hr (Metoprolol succinate) ..... Take 1 tablet by mouth once a day take 1 tablet daily Aspirin 81 Mg Tablet,delayed Release (dr/ec) (Aspirin) ..... Take 1 tablet daily Furosemide 20 Mg Tablet (Furosemide) ..... Take 1 tablet by mouth once a day take [facility] Cardiology:Only mild on recent e cho. Will monitor. [facility] Cardiology:Has had o ngoing progressive SOB that is getting more limiting. She had recent ER visit and Kevin and was sent back to use for further eval. We did do SHAWANDA as concern that mitral stenosis may have been contributing to her symptoms. SHAWANDA however, showed EF of 65% with mild MR. This does not reflect her SOB. Previous cath in 2017 with mild CAD. Will update stress test. Will also plan f/u [facility] on CPAP to ensure proper settings. We will also refer for [facility] H er updated medication list for this problem includes: Metoprolol Succinate 25 Mg Tablet Extended Release 24 Hr (Metoprolol succinate) ..... Take 1 tablet by mouth once a day take 1 tablet daily Aspirin 81 Mg Tablet,delayed Release (dr/ec) (Aspirin) ..... Take 1 tablet daily Furosemide 20 Mg Tablet (Furosemide) ..... Take 1 tablet by mouth once a day take 1 tablet daily Isabel Frankel [employer] Cardiology:7.4 David Vanegas MD Cardiology David Vanegas MD Cardiology: 5 5 David Vanegas MD Cardiology: H eart monitor revealed no arrythmias. SR with no ectopy, pauses. neg hep [place] n eg neg vd for edma David Vanegas MD Cardiology: a bi less then .6 with cladicoiatn d ista dz by angio David Vanegas MD Cardiology: n eg rpr and b12 David Vanegas MD Cardiology: 1 100 David Vanegas MD Cardiology David Vanegas MD Cardiology: s core 110 N o angina 3 0% distal lad David Vanegas MD Cardiology: s tii; anemic on iron H AD INFUSIN AND RESOVLED N, HAD COLON, David Vanegas MD Cardiology David Vanegas MD Cardiology:due to ms ? 2 97 David Vanegas MD Cardiology: m odeated ms and midl mr David Vanegas MD :modeated ms and midl mr David Vanegas MD Cardiology:8.2 David Vanegas MD Cardiology David Vanegas MD Cardiology: 2 97 David Vanegas MD Cardiology: H eart monitor revealed no arrythmias. SR with no ectopy, pauses. neg hep [place] n eg neg vd for edma David Vanegas MD Cardiology: n eg rpr and b12 David Vanegas MD Cardiology: a bi less then .6 with cladicoiatn d ista dz by angio David Vanegas MD Cardiology David Vanegas MD Cardiology: M oderate MS , Mild MR. on echo 03/2021. repeat next year David Vanegas MD Cardiology: s core 110 N o angina 3 0% distal lad David Vanegas MD Cardiology: s tii; anemic on iron H AD INFUSIN AND RESOVLED N, HAD COLON, David Vanegas MD Cardiology David Vanegas MD Cardiology: s tii; anemic on iron H AD INFUSIN AND RESOVLED N, HAD COLONDavid MD Cardiology:8.2 David Vanegas MD Cardiology:55 David Vanegas MD TeleHealth: n eg rpr and b12 David Vanegas MD TeleHealth David Vanegas MD TeleHealth:stii; ane nicole on iron H AD INFUSIN AND RESOVLED N, HAD COLONDavid MD TeleHealth:6.7 David Vanegas MD TeleHealth:hilda less then .6 with cladicoiatn d ista dz by angio David Vanegas MD TeleHealth:score 110 N o angina 3 0% distal lad David Vanegas MD TeleHealth: H eart monitor revealed no arrythmias. SR with no ectopy, pauses. neg hep [place] n eg neg vd for edma ,neg uiacr David Vanegas MD TeleHealth: H eart monitor revealed no arrythmias. SR with no ectopy, pauses. David Vanegas MD TeleHealth: 2 97 David Vanegas MD TeleHealth:efgr 45 David Vanegas MD TeleHealth: M oderate MS , Mild MR. on echo 03/2021. repeat next year David Vanegas MD Cardiology-seen with [employer]: 5 .8 F arxiga too expensive, invokana diarhrrea. was on jardiance in the past but thinks she had a reaction as well. C urrently on metformin and insulin Ella Orr NP Cardiology-seen with [employer]:sherri jay updated medication list for this problem includes: Metoprolol Succinate 25 Mg Tablet Extended Release 24 Hr (Metoprolol succinate) ..... Take 1 tablet daily Aspirin 81 Mg Tablet,delayed Release (dr/ec) (Aspirin) ..... Take 1 tablet daily Ella Orr NP Cardiology-seen with [employer]:No angina 3 0% distal lad Ella Orr NP Cardiology-seen with [employer]:Moderate MS , Mild MR. on echo 03/2021. repeat next year Ella Orr NP Cardiology-seen with [employer]:Heart monitor revealed no arrythmias. SR with no ectopy, pauses. Ella Orr NP :mod ms with mild mr David Dawit still MD TeleHealth David Vanegas MD TeleHealth: r echeck echo to eval David Vanegas MD TeleHealth:297 David Vanegas MD TeleHealth:1100 David Vanegas MD TeleHealth:neg hep p anek n eg neg vd for edma ,neg uiacr David Vanegas MD TeleHealth:5.8 David Vanegas MD TeleHealth:dista dz by angio Jorge Vanegas MD TeleHealth:sabrina marieaed David Vanegas MD TeleHealth: n eg rpr and b12 David Vanegas MD TeleHealth David Vanegas MD TeleHealth: F audrey with pulmonary David Vanegas MD TeleHealth: 3 0% distal lad David Vanegas MD Cardiology Follow up :does not appear fluid overloaded at this time. Cynthia Alcaraz DEISY Cardiology Follow up :recheck ec ho to eval Cynthia Alcaraz DEISY Cardiology Follow up :check echo Cynthia Alcaraz DEISY Cardiology Follow up : H er updated medication list for this problem includes: Norvasc 2.5 Mg Oral Tablet (Amlodipine besylate) ..... One tab. daily Metoprolol Succinate Er 25 Mg Oral Tablet Extended Release 24 Hour (Metoprolol succinate) ..... One tab. daily Lasix 20 Mg Oral Tablet (Furosemide) ..... One a day Aspirin Adult Low Dose 81 Mg Oral Tablet Delayed Release (Aspirin) ..... One tab by mouth daily Cynthia Alcaraz DEISY Cardiology Follow up : H er updated medication list for this problem includes: Atorvastatin Calcium 40 Mg Oral Tablet (Atorvastatin calcium) ..... Take 1 tab daily at bedtime Cynthia Alcaraz DEISY Cardiology Follow up Cynthia Barrazan shaipamela OLIVAS Cardiology: 3 0% distal lad David Vanegas MD Cardiology David Vanegas MD Cardiology: n eg rpr and b12 David Vanegas MD Cardiology David Vanegas MD Cardiology David Vanegas MD Cardiology David Vanegas MD Cardiology:mod, grad 6 David cannon MD Cardiology: H AD INFUSIN AND RESOVLED N, HAD COLONDavid MD Cardiology:297 David Vanegas MD Cardiology:30 by ech os p ap 44 with ra 16 David Vanegas MD Cardiology: H er updated medication list for this problem includes: Aspirin Adult Low Dose 81 Mg Oral Tablet Delayed Release (Aspirin) ..... One tab by mouth daily Reviewed the following: P T: 9.9 Seconds (11/03/2016) INR: 1.0 (11/03/2016) David Vanegas MD Cardiology: n on copressible, neg hilda n eg senslazse David Vanegas MD Cardiology follow up :7.9 David Vanegas MD Cardiology follow up : H AD INFUSIN AND RESOVLED N, HAD COLON, B12 AND FOLATRE OK David Vanegas MD Cardiology follow up David still MD Cardiology follow up :non copres sible, neg hilda David Vanegas MD Cardiology follow up :neg rpr an d b12 David Vanegas MD Cardiology follow up :not intrede in wt loss suregery or diet pills David Vanegas MD Cardiology follow up :pap 44 wit h ra 16 David Vanegas MD Cardiology follow up David still MD Cardiology follow up :down to 13 5 David Vanegas MD Cardiology follow up :30% distal lad David Vanegas MD Cardiology follow up :neg neg vd for edma ,neg uiacr David Vanegas MD Cardiology follow up : P atient is compliant with CPAP. David Vanegas MD Cardiology:Follows with pulmonar y Cynthia Underwood NP Cardiology:BP stable . Continue current meds. H er updated medication list for this problem includes: Metoprolol Succinate 25 Mg Tb24 (Metoprolol succinate) ..... One tab. daily Lasix 20 Mg Tabs (Furosemide) ..... One a day Aspirin Adult Low Dose 81 Mg Oral Tbec (Aspirin) ..... One tab by mouth daily Cynthia Underwood NP Cardiology:Patient is compliant with CPAP. Cynthia Underwood NP Cardiology:Recent ca th showed no occlusive CAD. H er updated medication list for this problem includes: Metoprolol Succinate 25 Mg Tb24 (Metoprolol succinate) ..... One tab. daily Aspirin Adult Low Dose 81 Mg Oral Tbec (Aspirin) ..... One tab by mouth daily Cynthia Underwood NP Cardiology;USED NO TORGE RIGHT I N PAST David Vanegas MD Cardiology;USED NO T ORGE RIGHT IN PAST: L abs Reviewed: T SH: 2.260 ??IU/ML (10/09/2015) Total T4: 8.4 ??G/DL (10/09/2015) Total T3: 233.0 (11/23/2010) H gBA1c: 7.0 (10/09/2015) C hol: 107.0 (10/14/2016) HDL: 42.0 (10/14/2016) T.0 (10/14/2016) Her updated medication list for this problem includes: Synthroid 100 Mcg Tabs (Levothyroxine sodium) ..... One tab. daily David Vanegas MD Cardiology;USED NO T ORGE RIGHT IN PAST:IMPROVING WTH ECP David Vanegas MD Cardiology;USED NO TORGE RIGHT I N PAST:UACR 500 David Vanegas MD Cardiology;USED NO TORGE RIGHT I N PAST:UACR 513 David Vanegas MD Cardiology;USED NO T ORGE RIGHT IN PAST:PRO UP TO 173, WILL RLHC David Vanegas MD Cardiology;USED NO T ORGE RIGHT IN PAST: H er updated medication list for this problem includes: Atorvastatin Calcium 40 Mg Oral Tabs (Atorvastatin calcium) ..... Take 1 tab daily at bedtime CHOL: 107.0 (10/14/2016) HDL: 42.0 (10/14/2016) T.0 (10/14/2016) C HOL (goal): 200 (08/05/2015) LDL (goal): 70 (08/05/2015) HDL (goal): 40 (08/05/2015) TG (goal): 150 (08/05/2015) David Vanegas MD Cardiology;USED NO T ORGE RIGHT IN PAST:pos nuc, neg cath, neg nuc 16 dph, CALSIUM 110, WILL PROCEDED WITH CATH David Vanegas MD Cardiology;USED NO TORGE RIGHT I N PAST:NEG XRAUY David Vanegas MD Cardiology;USED NO T ORGE RIGHT IN PAST: H AD INFUSIN AND RESOVLED N, HAD COLON, B12 AND FOLATRE OK David Vanegas MD Cardiology follow up:wiht ecp Butler lisa Vanegas MD Cardiology follow up David still MD Cardiology follow up:PRO NORMAL LAST YEAR David Vanegas MD Cardiology follow up :WORSE AGAIN, HAD COLON, B12 AND FOLATRE OK David Vanegas MD Cardiology follow up :CHOL: 158.0 (10/09/2015) HDL: 50.0 (10/09/2015) T.0 (10/09/2015) C HOL (goal): 200 (08/05/2015) LDL (goal): 70 (08/05/2015) HDL (goal): 40 (08/05/2015) TG (goal): 150 (08/05/2015) h as high crp too H er updated medication list for this problem includes: Atorvastatin Calcium 40 Mg Oral Tabs (Atorvastatin calcium) ..... Take 1 tab daily at bedtime Lovaza 1 Gm Caps (Mhpei-1-etxq ethyl esters) ..... 2 capsules daily David Vanegas MD Cardiology - [employer] ramon jones:Patient's endocrine MD had placed her on Lisinopril and she states she has had a dry, hacky cough ever since. It is to the point that this inhibits her ability to wear her CPAP at night. Will d/c Lisinopril. She has an allergic reaction (severe skin rash) to ARB. Pre medication BP reading today 130/62. She will monitor her BPs at home and bring them in to her next visit with Dr. Vanegas to see if additional agents are warranted. She has not had any labwork in some time. Will check CBC, Fe studies, CMP. Will obtain echo due to complaints of exertional dyspnea. H er updated medication list for this problem includes: Lasix 20 Mg Tabs (Furosemide) ..... One a day Aspirin 81 Mg Tabs (Aspirin) ..... One tab. daily Atenolol 25 Mg Tabs (Atenolol) ..... One tab. daily Cynthia Underwood NP Cardiology:7.5 David Vanegas MD Cardiology:This maura ent has angina (defined as chest pain, chest discomfort, or pain in arms, neck, jaw, shoulder, or back, and may include symptoms of shortness of breath, fatigue, dizziness, nausea, or diaphoresis) of [place] Cardiovascular Society Class III (defined as symptoms with everyday living activities, i.e. moderate limitation) or [place] Cardiovascular Society Class IV (defined as inability to perform any activity without angina or angina at rest, i.e. severe limitation). T his patient?s angina is disabling and in my opinion is not readily amenable to surgical intervention by PTCA or cardiac bypass because the patient's coronary anatomy is not readily amenable to such procedures. David Vanegas MD Cardiology:cannot ta ke statin H er updated medication list for this problem includes: Lovaza 1 Gm Caps (Epwxh-5-fgkp ethyl esters) ..... 2 capsules daily C HOL: 158.0 (10/09/2015) LDL: 81.8 (?) (10/09/2015) HDL: 50.0 (10/09/2015) T.0 (10/09/2015) C HOL (goal): 200 (08/05/2015) LDL (goal): 70 (08/05/2015) HDL (goal): 40 (08/05/2015) TG (goal): 150 (08/05/2015) David Vanegas MD Cardiology:1. Normal left ventricular systolic function. Normal left ventricular size. Normal left ventricular wall t hickness. There is E to A wave reversal consistent with impaired LV relaxation. Abnormal E/E`, s uggestive of elevated LVEDP. 22.3. Left ventricular ejection fraction is estimated at 65 %. 2 . LA volume is 87 mL. 3 . Moderate mitral annular calcification. There is mitral valve leaflet calcification without stenosis. No m itral valve regurgitation is seen. 4 . Velocities, as well as gradients across the aortic valve are normal. There is trace physiologic aortic v alve regurgitation. w nelson Vanegas MD Cardiology:on rx, us ing it all the time T he patient has been using their CPAP device at least 4 hours at night, at least 5 days per week and has noticed sleep apnea symptoms improved, including improved energy, decreased daytime sleepiness, decreased awakenings, and improved sleep quality. David Vanegas MD Cardiology:resolved with iron in fusion David Vanegas MD Cardiology David Vanegas MD Cardiology:fu neg David Vanegas MD Cardiology:statin in to H er updated medication list for this problem includes: Lovaza 1 Gm Caps (Xffsk-7-hnly ethyl esters) ..... 2 capsules daily C HOL: 158.0 (10/09/2015) LDL: 81.8 (?) (10/09/2015) HDL: 50.0 (10/09/2015) T.0 (10/09/2015) C HOL (goal): 200 (08/05/2015) LDL (goal): 70 (08/05/2015) HDL (goal): 40 (08/05/2015) TG (goal): 150 (08/05/2015) David Vanegas MD Cardiology: L abs Reviewed: T SH: 2.260 ??IU/ML (10/09/2015) Total T4: 8.4 ??G/DL (10/09/2015) Total T3: 233.0 (11/23/2010) H gBA1c: 7.0 (10/09/2015) C hol: 158.0 (10/09/2015) HDL: 50.0 (10/09/2015) LDL: 81.8 (?) (10/09/2015) T.0 (10/09/2015) Her updated medication list for this problem includes: Synthroid 100 Mcg Tabs (Levothyroxine sodium) ..... One tab. daily David Vanegas MD Cardiology:to get infusion Sima Vanegas MD Cardiology:pro 250k will try lasix and get iron and get cpap H er updated medication list for this problem includes: Aspirin 81 Mg Tabs (Aspirin) ..... One tab. daily Atenolol 25 Mg Tabs (Atenolol) ..... One tab. daily David Vanegas MD Cardiology:7.0 David Vanegas MD Cardiology:neg xray David turner MD Cardiology:has titraton appt set up David Vanegas MD Cardiology:did not want wt loss suregyer David Vanegas MD Cardiology: H er updated medication list for this problem includes: Lovaza 1 Gm Caps (Zbrec-2-ripz ethyl esters) ..... 2 capsules daily C HOL: 155 (08/05/2015) LDL: 53 (08/05/2015) HDL: 52 (08/05/2015) T (08/05/2015) C HOL (goal): 200 (08/05/2015) LDL (goal): 70 (08/05/2015) HDL (goal): 40 (08/05/2015) TG (goal): 150 (08/05/2015) David Vanegas MD Cardiology:many sx will borrego Aleksandarmary ann kitty Vanegas MD Cardiology:may need iron infusio n David Vanegas MD Cardiology: H er updated medication list for this problem includes: Aspirin 81 Mg Tabs (Aspirin) ..... One tab. daily Atenolol 25 Mg Tabs (Atenolol) ..... One tab. daily BP today: 140/70 P rior BP: 138/60 (08/05/2015) Prior 10 Yr Risk Heart Disease: N/A (12/01/2010) Labs Reviewed: C reat: 0.60 (10/10/2011) C hol: 155 (08/05/2015) HDL: 52 (08/05/2015) LDL: 53 (08/05/2015) T (08/05/2015) David Vanegas MD Cardiology:8.2 David Vanegas MD Cardiology:pro high then darren Vanegas MD Cardiology -HTN/Lipi ds:Triglycerides are elevated but sugars are not well controlled. She has been on some steroids due to allergic reaction to antiobiotics. W ill repeat after sugars are better controlled. H er updated medication list for this problem includes: Lovaza 1 Gm Caps (Xrfqt-3-ctgj ethyl esters) ..... 2 capsules daily Cynthia Underwood NP Cardiology -HTN/Lipi ds:BP controlled on Atenolol at present. Diovan stopped due to rash. No further changes made. Will see Dr. Vanegas next month as scheduled. T he following medications were removed from the medication list: Diovan 40 Mg Tabs (Valsartan) ..... One tab. daily Her updated medication list for this problem includes: Aspirin 81 Mg Tabs (Aspirin) ..... One tab. daily Atenolol 25 Mg Tabs (Atenolol) ..... One tab. daily Cynthia Underwood NP Cardiology-chol/bp c linic:Lipids remain within in goal. No medication changes are made. We did have a lengthy discussion regarding weight loss and low carb eating. She is given Dr. Vanegas's diet recommendations. She has many orthopedic problems and weight bearing exercise is a problem. She walks when she can. Recommended swimming when possible. H er updated medication list for this problem includes: Lovaza 1 Gm Caps (Ttpoi-1-uqdi ethyl esters) ..... 2 capsules daily Cynthia Underwood NP Cardiology-chol/bp c linic:BP in office today within acceptable range. BP left arm 120/78. Patient states that when she saw Dr. Vanegas at her office visit she was 'nervous' and has also been having some pain from her relatively recent rotator cuff surgery on her right shoulder. Will continue current medications. H er updated medication list for this problem includes: Aspirin 81 Mg Tabs (Aspirin) ..... One tab. daily Atenolol 25 Mg Tabs (Atenolol) ..... One tab. daily Diovan 40 Mg Tabs (Valsartan) ..... One tab. daily Cynthia Underwood NP Cardiology:DID NOT W ANT DIET PILL, WILL CONSIDER MEDIFAST David Vanegas MD Cardiology:155/71 David Vanegas MD Cardiology:great just on fish oi l David Vanegas MD Cholesterol manageme nt:Patient presents for lipid management. Her values are now at goal. She will continue current medication regimen. Recommended continued weight loss efforts with diet and exercise. She will keep scheduled follow up with Dr. Vanegas and follow up in lipid clinic in 6 months. H er updated medication list for this problem includes: Lovaza 1 Gm Caps (Sxfbl-4-ymwp ethyl esters) ..... 2 capsules daily Cynthia Underwood NP Follow up David Vanegas MD Follow up David Vanegas MD Follow up David Vanegas MD Follow up: H er updated medication list for this problem includes: Atenolol 25 Mg Tabs (Atenolol) ..... One tab. daily Diovan 40 Mg Tabs (Valsartan) ..... One tab. daily David Vanegas MD Follow up: H er updated medication list for this problem includes: Prednisone (jesus) Tabs (Prednisone tabs) ..... Taper does right now 1 pill a day will be done in 5 more days David Vanegas MD Follow up David Vanegas MD Lipid managment: H er updated medication list for this problem includes: Lovaza 1 Gm Caps (Ajbuh-5-vwgg ethyl esters) ..... 2 capsules daily Patient presents for lipid clinic. Her Triglycerides have improved some on the Lovaza but still not at goal. She states her blood sugars have not been well controlled. We will increase her Lovaza to two capsules daily. She is intolerant of statins and has not been interested in participating in any of our cholesterol research studies. She will return to lipid clinic in 6 months. Cynthia Underwood NP Cholesterol manageme nt:Patient presents for lipid clinic. Her triglycerides are above goal. She states her blood sugars have been high as well. Will add samples of Lovaza, 1gram daily. She will return in 4 weeks for recheck. Cynthia Underwood NP Cholesterol manageme nt: T he following medications were removed from the medication list: Zocor 5 Mg Tabs (Simvastatin) ..... One tab. at bedtime Her updated medication list for this problem includes: Niaspan 500 Mg Tbcr (Niacin (antihyperlipidemic)) ..... One tab. at bedtime - dispense as written P atient developed muscle aches and elevated LFTs. PCP took her off of Simvastatin. She just recently resumed her Niaspan. Cholesterol values have improved. She will remain on her Niaspan and return to lipid clinic in June. Cynthia Underwood NP cholesterol/htn: H er updated medication list for this problem includes: Atenolol 25 Mg Tabs (Atenolol) ..... One tab. daily Diovan 40 Mg Tabs (Valsartan) ..... One tab. daily Patient presents for HTN management. Her BP is adequately controlled on current medications. No changes are made. Cynthia Underwood NP cholesterol/htn: H er updated medication list for this problem includes: Zocor 5 Mg Tabs (Simvastatin) ..... One tab. at bedtime Niaspan 500 Mg Tbcr (Niacin (antihyperlipidemic)) ..... One tab. at bedtime - dispense as written Patient presents for lipid clinic. Triglycerides are elevated. She states her blood sugars have been running high as well. She is instructed to contact her PCP to discuss diabetes management and we will add Niaspan 500mg at bedtime. Return to lipid clinic in 4 weeks. Cynthia Underwood NP HTN/Lipid Clinic: H er updated medication list for this problem includes: Zocor 5 Mg Tabs (Simvastatin) ..... One tab. at bedtime Patient's lipids are at goal. Her AST is mildly elevated at 55. Will repeat lipids and LFTs in 3 months. Cynthia Underwood NP HTN/Lipid Clinic: H er updated medication list for this problem includes: Atenolol 25 Mg Tabs (Atenolol) ..... One tab. daily Diovan 40 Mg Tabs (Valsartan) ..... One tab. daily Patient's BP under better control. She will continue her current medications and return to HTN clinic in 3 months. Cynthia Underwood NP follow up: T he following medications were removed from the medication list: Aspirin 81 Mg Tabs (Aspirin) ..... One tab. daily Her updated medication list for this problem includes: Atenolol 25 Mg Tabs (Atenolol) ..... One tab. daily Diovan 40 Mg Tabs (Valsartan) ..... One tab. daily Calcium 500 +d Tabs (Calcium-vitamin d tabs) ..... 1 tab daily Orders: Full PFT (*) S pirometry (CPT-55162) C omplete Echo (CPT-72119) e Prescribe - Check this box if eRx is used (CPT-G8553) E CP Commercial (CPT-94670) David Vanegas MD follow up David Vanegas MD follow up: O rders: F ull PFT (*) S pirometry (CPT-66133) C omplete Echo (CPT-65000) e Prescribe - Check this box if eRx is used (CPT-G8553) E CP Commercial (CPT-92970) David Vanegsa MD follow up: T he following medications were removed from the medication list: Aspirin 81 Mg Tabs (Aspirin) ..... One tab. daily Her updated medication list for this problem includes: Atenolol 25 Mg Tabs (Atenolol) ..... One tab. daily Orders: F ull PFT (*) S pirometry (CPT-09597) C omplete Echo (CPT-44185) e Prescribe - Check this box if eRx is used (CPT-G8553) E CP Commercial (CPT-85735) David Vanegas MD follow up David Vanegas MD follow up David Vanegas MD follow up: O rders: F ull PFT (*) S pirometry (CPT-89039) C omplete Echo (CPT-25563) e Prescribe - Check this box if eRx is used (CPT-G8553) E CP Commercial (CPT-96571) David Vanegas MD follow up: T he following medications were removed from the medication list: Aspirin 81 Mg Tabs (Aspirin) ..... One tab. daily Her updated medication list for this problem includes: Atenolol 25 Mg Tabs (Atenolol) ..... One tab. daily Orders: F ull PFT (*) S pirometry (CPT-22667) C omplete Echo (CPT-30149) e Prescribe - Check this box if eRx is used (CPT-G8553) E CP Commercial (CPT-69334) David Vanegas MD follow up: O rders: F ull PFT (*) S pirometry (CPT-24255) C omplete Echo (CPT-70921) e Prescribe - Check this box if eRx is used (CPT-G8553) E CP Commercial (CPT-70811) David Vanegas MD follow up: H er updated medication list for this problem includes: Zocor 5 Mg Tabs (Simvastatin) ..... One tab. at bedtime David Vanegas MD follow up: T he following medications were removed from the medication list: Aspirin 81 Mg Tabs (Aspirin) ..... One tab. daily Her updated medication list for this problem includes: Atenolol 25 Mg Tabs (Atenolol) ..... One tab. daily Diovan 40 Mg Tabs (Valsartan) ..... One tab. daily David Vanegas MD [facility] only, use bare metal stent David Vanegas MD [facility] only, use bare metal stent: H er updated medication list for this problem includes: Liothyronine Sodium 25 Mcg Tabs (Liothyronine sodium) ..... Take one tablet twice daily David Vanegas MD [facility] only, use bare metal stent David Vanegas MD [facility] only, use bare metal stent David Vanegas MD [facility] only, use bare metal stent: H er updated medication list for this problem includes: Aspirin 81 Mg Tabs (Aspirin) ..... One tab. daily Atenolol 25 Mg Tabs (Atenolol) ..... One tab. daily Orders: C ardiac Cath - Left - GC (*) David Vanegas MD [facility] only, use bare metal stent: H er updated medication list for this problem includes: Aspirin 81 Mg Tabs (Aspirin) ..... One tab. daily Atenolol 25 Mg Tabs (Atenolol) ..... One tab. daily Diovan 40 Mg Tabs (Valsartan) ..... One tab. daily (you are allegic to viet-i) Calcium 500 +d Tabs (Calcium-vitamin d tabs) ..... 1 tab daily Orders: C ardiac Cath - Left - GC (*) David Vanegas MD [facility] only, use bare metal stent: H er updated medication list for this problem includes: Aspirin 81 Mg Tabs (Aspirin) ..... One tab. daily Atenolol 25 Mg Tabs (Atenolol) ..... One tab. daily Zocor 5 Mg Tabs (Simvastatin) ..... One tab. at bedtime Orders: C ardiac Cath - Left - GC (*) David Vanegas MD [facility] only, use bare metal stent: O rders: C ardiac Cath - Left - GC (*) David Vanegas MD [facility] only, use bare metal stent David Vanegas MD [facility] only, use bare metal stent David Vanegas MD [facility] only, use bare metal stent: O rders: C ardiac Cath - Left - GC (*) David Vanegas MD [facility] only, use bare metal stent: O rders: C ardiac Cath - Left - GC (*) David Vanegas MD follow up David Vanegas MD follow up David Vanegas MD follow up David Vanegas MD follow up David Vanegas MD follow up David Vanegas MD follow up David Vanegas MD follow up: O rders: C ardiopulmonary Stress Test (CPT-07897) E CP Commercial (CPT-11310) C omplete Echo (CPT-45171) S tress Test - Adenosine (78761) David Vanegas MD follow up: O rders: C ardiopulmonary Stress Test (CPT-55721) E CP Commercial (CPT-11809) C omplete Echo (CPT-90790) S tress Test - Adenosine (19371) David Vanegas MD follow up David Vanegas MD follow up David Vanegas MD follow up David Vanegas MD follow up David Vanegas MD follow up David Vanegas MD follow up: O rders: C ardiopulmonary Stress Test (CPT-37706) E CP Commercial (CPT-84896) C omplete Echo (CPT-81776) S tress Test - Adenosine (49669) David Vanegas MD follow up: H er updated medication list for this problem includes: Liothyronine Sodium 25 Mcg Tabs (Liothyronine sodium) ..... Take one tablet twice daily Labs Reviewed: C hol: 175 (07/25/2010) HDL: 46 (07/25/2010) LDL: 103 (07/25/2010) T (07/25/2010) David Vanegas MD follow up: H er updated medication list for this problem includes: Aspirin 81 Mg Tabs (Aspirin) ..... One tab. daily Diovan 40 Mg Tabs (Valsartan) ..... One tab. daily (you are allegic to viet-i) Lantus Soln (Insulin glargine soln) ..... 40 units in evening Metformin Hcl 1000 Mg Tabs (Metformin hcl) ..... Twice daily Januvia 100 Mg Tabs (Sitagliptin phosphate) ..... 1 tab daily BP today: 141/75 Prior BP: 127/78 (08/06/2009) Labs Reviewed: C reat: 0.50 (07/25/2010) David Vanegas MD follow up: H er updated medication list for this problem includes: Aspirin 81 Mg Tabs (Aspirin) ..... One tab. daily Atenolol 25 Mg Tabs (Atenolol) ..... One tab. daily BP today: 141/75 Prior BP: 127/78 (08/06/2009) N uclear Stress Findings: EF - 52%. N o EKG changes diagnostic for ischemia. F air exercise tolerance. N ormal myocardial perfusion imaging. (09/11/2006) C ardiac Cath: EF - 70%. N ormal left ventricular systolci fucntion. N ormal coronary arteries. M ildly elevated left heart filling pressures. (11/26/2003) C arotid Doppler/Duplex: normal: (09/14/2005) C K: <0.2 (07/25/2010) Troponin I: <0.02 (07/26/2010) CHOL: 175 (07/25/2010) LDL: 103 (07/25/2010) HDL: 46 (07/25/2010) T (07/25/2010) H gb: 12.1 (07/25/2010) HCT: 35.4 (07/25/2010) RBC: 4.03 (07/25/2010) WBC: 6.8 (07/25/2010) B UN: 23 (07/25/2010) Creat: 0.50 (07/25/2010) Na+: 138 (07/25/2010) K+: 4.4 (07/25/2010) Cl: 100 (07/25/2010) PT: 12.7 (07/25/2010) INR: 1.0 (07/25/2010) P TT: 25 (07/25/2010) E chocardiogram: The left ventricular chamber size is normal. Normal left ventricular wall thickness.Normal left v entricular function. LV EF is estimated at 65%. T he right ventricle is normal in size. The right ventricle has normal systolic function. N ormal left atrium. Normal right atrium. T he Mitral Valve is structurally normal and appears to open and close adequately. T he aortic valve appears structurally normal. T he tricuspid valve is structurally normal. T he right ventricular systolic pressure (RSVP) is estimated to be less than 30 mmHg and is within normal limits. N ormal pulmonic valve. (10/19/2007) Orders: S pirometry (CPT-21257) C omplete Echo (CPT-03436) S tress Test - Adenosine (66884) David Vanegas MD follow up: B P today: 141/75 Prior BP: 127/78 (08/06/2009) C HOL: 175 (07/25/2010) LDL: 103 (07/25/2010) HDL: 46 (07/25/2010) T (07/25/2010) Her updated medication list for this problem includes: Pravachol 40 Mg Tabs (Pravastatin sodium) ..... One tab. daily David Vanegas MD follow up David Vanegas MD follow up David Vanegas MD follow up: H er updated medication list for this problem includes: Aspirin 81 Mg Tabs (Aspirin) ..... One tab. daily Atenolol 25 Mg Tabs (Atenolol) ..... One tab. daily Orders: Spirometry (CPT-73659) C omplete Echo (CPT-57686) S tress Test - Adenosine (08078) David Vanegas MD follow up David Vanegas MD follow up: O rders: S pirometry (CPT-82518) C omplete Echo (CPT-88859) S tress Test - Adenosine (38973) David Vanegas MD follow up: H er updated medication list for this problem includes: Aspirin 81 Mg Tabs (Aspirin) ..... One tab. daily Carotid Duplex Scan: n ormal: (09/14/2005) Echocardiogram: T he left ventricular chamber size is normal. Normal left ventricular wall thickness.Normal left v entricular function. LV EF is estimated at 65%. T he right ventricle is normal in size. The right ventricle has normal systolic function. N ormal left atrium. Normal right atrium. T he Mitral Valve is structurally normal and appears to open and close adequately. T he aortic valve appears structurally normal. T he tricuspid valve is structurally normal. T he right ventricular systolic pressure (RSVP) is estimated to be less than 30 mmHg and is within normal limits. Normal pulmonic valve. (10/19/2007) Orders: S pirometry (CPT-55504) C omplete Echo (CPT-62375) S tress Test - Adenosine (59236) David Vanegas MD follow up: O rders: S pirometry (CPT-12592) C omplete Echo (CPT-67593) S tress Test - Adenosine (50734) David Vanegas MD follow up: H er updated medication list for this problem includes: Aspirin 81 Mg Tabs (Aspirin) ..... One tab. daily Atenolol 25 Mg Tabs (Atenolol) ..... One tab. daily Orders: Spirometry (CPT-74751) C omplete Echo (CPT-30866) S tress Test - Adenosine (80511) David Vanegas MD follow up: H er updated medication list for this problem includes: Aspirin 81 Mg Tabs (Aspirin) ..... One tab. daily Atenolol 25 Mg Tabs (Atenolol) ..... One tab. daily Diovan 40 Mg Tabs (Valsartan) ..... One tab. daily (you are allegic to viet-i) Calcium 500 +d Tabs (Calcium-vitamin d tabs) ..... 1 tab daily BP today: 141/75 Prior BP: 127/78 (08/06/2009) N uclear Stress Findings: EF - 52%. N o EKG changes diagnostic for ischemia. F air exercise tolerance. N ormal myocardial perfusion imaging. (09/11/2006) E chocardiogram: The left ventricular chamber size is normal. Normal left ventricular wall thickness.Normal left v entricular function. LV EF is estimated at 65%. T he right ventricle is normal in size. The right ventricle has normal systolic function. N ormal left atrium. Normal right atrium. T he Mitral Valve is structurally normal and appears to open and close adequately. T he aortic valve appears structurally normal. T he tricuspid valve is structurally normal. T he right ventricular systolic pressure (RSVP) is estimated to be less than 30 mmHg and is within normal limits. N ormal pulmonic valve. (10/19/2007) C ardiac Cath: EF - 70%. N ormal left ventricular systolci fucntion. N ormal coronary arteries. M ildly elevated left heart filling pressures. (11/26/2003) C K: <0.2 (07/25/2010) Troponin I: <0.02 (07/26/2010) Hgb: 12.1 (07/25/2010) HCT: 35.4 (07/25/2010) RBC: 4.03 (07/25/2010) WBC: 6.8 (07/25/2010) B UN: 23 (07/25/2010) Creat: 0.50 (07/25/2010) Na+: 138 (07/25/2010) K+: 4.4 (07/25/2010) Cl: 100 (07/25/2010) O rders: S pirometry (CPT-67009) C omplete Echo (CPT-54890) S tress Test - Adenosine (06660) David Vanegas MD follow up: H er updated medication list for this problem includes: Aspirin 81 Mg Tabs (Aspirin) ..... One tab. daily Atenolol 25 Mg Tabs (Atenolol) ..... One tab. daily Pravachol 40 Mg Tabs (Pravastatin sodium) ..... One tab. daily BP today: 141/75 Prior BP: 127/78 (08/06/2009) N uclear Stress Findings: EF - 52%. N o EKG changes diagnostic for ischemia. F air exercise tolerance. N ormal myocardial perfusion imaging. (09/11/2006) C ardiac Cath: EF - 70%. N ormal left ventricular systolci fucntion. N ormal coronary arteries. M ildly elevated left heart filling pressures. (11/26/2003) C arotid Doppler/Duplex: normal: (09/14/2005) C K: <0.2 (07/25/2010) Troponin I: <0.02 (07/26/2010) CHOL: 175 (07/25/2010) LDL: 103 (07/25/2010) HDL: 46 (07/25/2010) T (07/25/2010) H gb: 12.1 (07/25/2010) HCT: 35.4 (07/25/2010) RBC: 4.03 (07/25/2010) WBC: 6.8 (07/25/2010) B UN: 23 (07/25/2010) Creat: 0.50 (07/25/2010) Na+: 138 (07/25/2010) K+: 4.4 (07/25/2010) Cl: 100 (07/25/2010) PT: 12.7 (07/25/2010) INR: 1.0 (07/25/2010) P TT: 25 (07/25/2010) Orders: S pirometry (CPT-46684) C omplete Echo (CPT-14877) S tress Test - Adenosine (72762) David Vanegas MD follow up David Vanegas MD routine: H er updated medication list for this problem includes: Aspirin 81 Mg Tabs (Aspirin) ..... One tab. daily Atenolol 25 Mg Tabs (Atenolol) ..... One tab. daily David Vanegas MD routine: H er updated medication list for this problem includes: Aspirin 81 Mg Tabs (Aspirin) ..... One tab. daily Atenolol 25 Mg Tabs (Atenolol) ..... One tab. daily David Vanegas MD routine: H er updated medication list for this problem includes: Aspirin 81 Mg Tabs (Aspirin) ..... One tab. daily Atenolol 25 Mg Tabs (Atenolol) ..... One tab. daily Diovan 40 Mg Tabs (Valsartan) ..... One tab. daily (you are allegic to viet-i) David Vanegas MD routine: H er updated medication list for this problem includes: Liothyronine Sodium 25 Mcg Tabs (Liothyronine sodium) ..... Take one tablet twice daily David Vanegas MD routine: H er updated medication list for this problem includes: Aspirin 81 Mg Tabs (Aspirin) ..... One tab. daily Diovan 40 Mg Tabs (Valsartan) ..... One tab. daily (you are allegic to viet-i) Lantus Soln (Insulin glargine soln) ..... 40 units in evening Metformin Hcl 1000 Mg Tabs (Metformin hcl) ..... Twice daily David Vanegas MD routine: H er updated medication list for this problem includes: Aspirin 81 Mg Tabs (Aspirin) ..... One tab. daily Atenolol 25 Mg Tabs (Atenolol) ..... One tab. daily BP today: 127/78 Prior BP: 128/78 (08/07/2008) N uclear Stress Findings: EF - 52%. N o EKG changes diagnostic for ischemia. F air exercise tolerance. N ormal myocardial perfusion imaging. (09/11/2006) C ardiac Cath: EF - 70%. N ormal left ventricular systolci fucntion. N ormal coronary arteries. M ildly elevated left heart filling pressures. (11/26/2003) C arotid Doppler/Duplex: normal: (09/14/2005) E chocardiogram: The left ventricular chamber size is normal. Normal left ventricular wall thickness.Normal left v entricular function. LV EF is estimated at 65%. T he right ventricle is normal in size. The right ventricle has normal systolic function. N ormal left atrium. Normal right atrium. T he Mitral Valve is structurally normal and appears to open and close adequately. T he aortic valve appears structurally normal. T he tricuspid valve is structurally normal. T he right ventricular systolic pressure (RSVP) is estimated to be less than 30 mmHg and is within normal limits. N ormal pulmonic valve. (10/19/2007) David Vanegas MD routine: H er updated medication list for this problem includes: Aspirin 81 Mg Tabs (Aspirin) ..... One tab. daily Atenolol 25 Mg Tabs (Atenolol) ..... One tab. daily Diovan 40 Mg Tabs (Valsartan) ..... One tab. daily (you are allegic to viet-i) BP today: 127/78 P rior BP: 128/78 (08/07/2008) David Vanegas MD routine: B P today: 127/78 Prior BP: 128/78 (08/07/2008) David Vanegas MD routine: O rders: E KG (CPT-21341) David Vanegas MD routine David Vanegas MD routine: H er updated medication list for this problem includes: Aspirin 81 Mg Tabs (Aspirin) ..... One tab. daily Atenolol 25 Mg Tabs (Atenolol) ..... One tab. daily David Vanegas MD routine David Vanegas MD routine David Vanegas MD ECP [id number] pa in greater in right: H er updated medication list for this problem includes: Levothroid 150 Mcg Tabs (Levothyroxine sodium) ..... 1 tablet dailly David Vanegas MD ECP [id number] pa in greater in right: H er updated medication list for this problem includes: Glyburide Tabs (Glyburide tabs) ..... Two 5 mg twice daily Metformin Hcl 1000 Mg Tabs (Metformin hcl) ..... Twice daily Aspirin 81 Mg Tabs (Aspirin) ..... One tab. daily Lantus Soln (Insulin glargine soln) ..... 75 units in evening Diovan 40 Mg Tabs (Valsartan) ..... One tab. daily (you are allegic to viet-i) BP today: 128/78 P rior BP: 125/71 (07/07/2008) BP today: 128/78 Prior BP: 125/71 (07/07/2008) David Vanegas MD ECP [id number] pa in greater in right: H er updated medication list for this problem includes: Calcium Tabs (Calcium carbonate tabs) ..... 1 tablet twice daily Atenolol 25 Mg Tabs (Atenolol) ..... One tab. daily Aspirin 81 Mg Tabs (Aspirin) ..... One tab. daily Diovan 40 Mg Tabs (Valsartan) ..... One tab. daily (you are allegic to viet-i) BP today: 128/78 Prior BP: 125/71 (07/07/2008) N uclear Stress Findings: EF - 52%. N o EKG changes diagnostic for ischemia. F air exercise tolerance. N ormal myocardial perfusion imaging. (09/11/2006) Echocardiogram: The left ventricular chamber size is normal. Normal left ventricular wall thickness.Normal left v entricular function. LV EF is estimated at 65%. T he right ventricle is normal in size. The right ventricle has normal systolic function. N ormal left atrium. Normal right atrium. T he Mitral Valve is structurally normal and appears to open and close adequately. T he aortic valve appears structurally normal. T he tricuspid valve is structurally normal. T he right ventricular systolic pressure (RSVP) is estimated to be less than 30 mmHg and is within normal limits. N ormal pulmonic valve. (10/19/2007) C ardiac Cath: EF - 70%. N ormal left ventricular systolci fucntion. N ormal coronary arteries. M ildly elevated left heart filling pressures. (11/26/2003) David Vanegas MD ECP [id number] pa in greater in right: H er updated medication list for this problem includes: Atenolol 25 Mg Tabs (Atenolol) ..... One tab. daily Aspirin 81 Mg Tabs (Aspirin) ..... One tab. daily BP today: 128/78 Prior BP: 125/71 (07/07/2008) N uclear Stress Findings: EF - 52%. N o EKG changes diagnostic for ischemia. F air exercise tolerance. N ormal myocardial perfusion imaging. (09/11/2006) C ardiac Cath: EF - 70%. N ormal left ventricular systolci fucntion. N ormal coronary arteries. M ildly elevated left heart filling pressures. (11/26/2003) C arotid Doppler/Duplex: normal: (09/14/2005) E chocardiogram: The left ventricular chamber size is normal. Normal left ventricular wall thickness.Normal left v entricular function. LV EF is estimated at 65%. T he right ventricle is normal in size. The right ventricle has normal systolic function. N ormal left atrium. Normal right atrium. T he Mitral Valve is structurally normal and appears to open and close adequately. T he aortic valve appears structurally normal. T he tricuspid valve is structurally normal. T he right ventricular systolic pressure (RSVP) is estimated to be less than 30 mmHg and is within normal limits. N ormal pulmonic valve. (10/19/2007) Orders: E KG (CPT-08884) David Vanegas MD ECP [id number] pa in greater in right: H er updated medication list for this problem includes: Atenolol 25 Mg Tabs (Atenolol) ..... One tab. daily Aspirin 81 Mg Tabs (Aspirin) ..... One tab. daily BP today: 128/78 P rior BP: 125/71 (07/07/2008) David Vanegas MD ECP [id number] pain greater i n right David Vanegas MD ECP [id number] pa in greater in right: H er updated medication list for this problem includes: Lescol Xl 80 Mg Tb24 (Fluvastatin sodium) ..... 1 tablet daily BP today: 128/78 Prior BP: 125/71 (07/07/2008) David Vanegas MD ECP [id number] pain greater i n right David Vanegas MD ECP [id number] pa in greater in right: H er updated medication list for this problem includes: Atenolol 25 Mg Tabs (Atenolol) ..... One tab. daily Aspirin 81 Mg Tabs (Aspirin) ..... One tab. daily David Vanegas MD office visit: H er updated medication list for this problem includes: Levothroid 150 Mcg Tabs (Levothyroxine sodium) ..... 1 tablet norman Vanegas MD office visit: T he following medications were removed from the medication list: Lisinopril 5 Mg Tabs (Lisinopril) ..... One tab. daily Her updated medication list for this problem includes: Glyburide Tabs (Glyburide tabs) ..... Two 5 mg twice daily Metformin Hcl 1000 Mg Tabs (Metformin hcl) ..... Twice daily Aspirin 81 Mg Tabs (Aspirin) ..... One tab. daily Lantus Soln (Insulin glargine soln) ..... 75 units in evening BP today: 129/80 Prior BP: 138/80 (10/18/2007) David Vanegas MD office visit: T he following medications were removed from the medication list: Lisinopril 5 Mg Tabs (Lisinopril) ..... One tab. daily Her updated medication list for this problem includes: Calcium Tabs (Calcium carbonate tabs) ..... 1 tablet twice daily Atenolol 25 Mg Tabs (Atenolol) ..... One tab. daily Aspirin 81 Mg Tabs (Aspirin) ..... One tab. daily BP today: 129/80 Prior BP: 138/80 (10/18/2007) N uclear Stress Findings: EF - 52%. N o EKG changes diagnostic for ischemia. F air exercise tolerance. N ormal myocardial perfusion imaging. (09/11/2006) E chocardiogram: The left ventricular chamber size is normal. Normal left ventricular wall thickness.Normal left v entricular function. LV EF is estimated at 65%. T he right ventricle is normal in size. The right ventricle has normal systolic function. N ormal left atrium. Normal right atrium. T he Mitral Valve is structurally normal and appears to open and close adequately. T he aortic valve appears structurally normal. T he tricuspid valve is structurally normal. T he right ventricular systolic pressure (RSVP) is estimated to be less than 30 mmHg and is within normal limits. N ormal pulmonic valve. (10/19/2007) C ardiac Cath: EF - 70%. N ormal left ventricular systolci fucntion. N ormal coronary arteries. M ildly elevated left heart filling pressures. (11/26/2003) David Vanegas MD office visit: T he following medications were removed from the medication list: Lisinopril 5 Mg Tabs (Lisinopril) ..... One tab. daily Her updated medication list for this problem includes: Atenolol 25 Mg Tabs (Atenolol) ..... One tab. daily Aspirin 81 Mg Tabs (Aspirin) ..... One tab. daily BP today: 129/80 Prior BP: 138/80 (10/18/2007) N uclear Stress Findings: EF - 52%. N o EKG changes diagnostic for ischemia. F air exercise tolerance. N ormal myocardial perfusion imaging. (09/11/2006) C ardiac Cath: EF - 70%. N ormal left ventricular systolci fucntion. N ormal coronary arteries. M ildly elevated left heart filling pressures. (11/26/2003) C arotid Doppler/Duplex: normal: (09/14/2005) E chocardiogram: The left ventricular chamber size is normal. Normal left ventricular wall thickness.Normal left v entricular function. LV EF is estimated at 65%. T he right ventricle is normal in size. The right ventricle has normal systolic function. N ormal left atrium. Normal right atrium. T he Mitral Valve is structurally normal and appears to open and close adequately. T he aortic valve appears structurally normal. T he tricuspid valve is structurally normal. T he right ventricular systolic pressure (RSVP) is estimated to be less than 30 mmHg and is within normal limits. N ormal pulmonic valve. (10/19/2007) David Vanegas MD office visit: T he following medications were removed from the medication list: Lisinopril 5 Mg Tabs (Lisinopril) ..... One tab. daily Her updated medication list for this problem includes: Atenolol 25 Mg Tabs (Atenolol) ..... One tab. daily Aspirin 81 Mg Tabs (Aspirin) ..... One tab. daily BP today: 129/80 P rior BP: 138/80 (10/18/2007) David Vanegas MD office visit David Vanegas MD office visit: B P today: 129/80 P rior BP: 138/80 (10/18/2007) Her updated medication list for this problem includes: Lescol Xl 80 Mg Tb24 (Fluvastatin sodium) ..... 1 tablet daily David Vanegas MD office visit David Vanegas MD office visit: T he following medications were removed from the medication list: Lisinopril 5 Mg Tabs (Lisinopril) ..... One tab. daily Her updated medication list for this problem includes: Atenolol 25 Mg Tabs (Atenolol) ..... One tab. daily Aspirin 81 Mg Tabs (Aspirin) ..... One tab. daily David Vanegas MD rattle : H er updated medication list for this problem includes: Atenolol Tabs (Atenolol tabs) ..... 1 tablet daily Aspirin 81 Mg Tabs (Aspirin) ..... One tab. daily Orders: H olter Monitor 24 Hr (CPT-47879) BP today: 138/80 Prior BP: / () H olter Monitor Comments: Sinus rhythm with sinus bradycardia and sinus tachycardia. Rare isolated VE beats. r are isolated SVE beats. A rtifact noted throughout. (04/20/2006) N uclear Stress Findings: EF - 52%. N o EKG changes diagnostic for ischemia. F air exercise tolerance. N ormal myocardial perfusion imaging. (09/11/2006) E chocardiogram: EF - 65%. D iastolic dysfunction. T race mitral regurgitation. M ild tircuspid regurgitation. PA pressure of 18mmHg. (10/26/2006) C ardiac Cath: EF - 70%. N ormal left ventricular systolci fucntion. N ormal coronary arteries. M ildly elevated left heart filling pressures. (11/26/2003) David Vanegas MD rattle : H er updated medication list for this problem includes: Calcium Tabs (Calcium carbonate tabs) ..... 1 tablet twice daily Atenolol Tabs (Atenolol tabs) ..... 1 tablet daily Aspirin 81 Mg Tabs (Aspirin) ..... One tab. daily BP today: 138/80 Prior BP: / () N uclear Stress Findings: EF - 52%. N o EKG changes diagnostic for ischemia. F air exercise tolerance. N ormal myocardial perfusion imaging. (09/11/2006) E chocardiogram: EF - 65%. D iastolic dysfunction. T race mitral regurgitation. M ild tircuspid regurgitation. PA pressure of 18mmHg. (10/26/2006) C ardiac Cath: EF - 70%. N ormal left ventricular systolci fucntion. N ormal coronary arteries. M ildly elevated left heart filling pressures. (11/26/2003) Orders: X -Ray, Chest, PA & Lateral ([id number]) H olter Monitor 24 Hr ([id number]) David Vanegas MD rattle : B P today: 138/80 Prior BP: / () N uclear Stress Findings: EF - 52%. N o EKG changes diagnostic for ischemia. F air exercise tolerance. N ormal myocardial perfusion imaging. (09/11/2006) C ardiac Cath: EF - 70%. N ormal left ventricular systolci fucntion. N ormal coronary arteries. M ildly elevated left heart filling pressures. (11/26/2003) C arotid Doppler/Duplex: normal: (09/14/2005) David Vanegas MD rattle : H er updated medication list for this problem includes: Levothroid 150 Mcg Tabs (Levothyroxine sodium) ..... 1 tablet dailly BP today: 138/80 David Vanegas MD rattle : T he following medications were removed from the medication list: Avandia 4 Mg Tabs (Rosiglitazone maleate) ..... Bid Her updated medication list for this problem includes: Glyburide Tabs (Glyburide tabs) ..... Two 5 mg twice daily Metformin Hcl 1000 Mg Tabs (Metformin hcl) ..... Twice daily Aspirin 81 Mg Tabs (Aspirin) ..... One tab. daily Lantus Soln (Insulin glargine soln) ..... 75 units in evening Lisinopril 5 Mg Tabs (Lisinopril) ..... One tab. daily BP today: 138/80 Prior BP: / () David Vanegas MD rattle : H er updated medication list for this problem includes: Atenolol Tabs (Atenolol tabs) ..... 1 tablet daily Aspirin 81 Mg Tabs (Aspirin) ..... One tab. daily Lisinopril 5 Mg Tabs (Lisinopril) ..... One tab. daily Carotid Duplex Scan: n ormal: (09/14/2005) Echocardiogram: E F - 65%. D iastolic dysfunction. T race mitral regurgitation. M ild tircuspid regurgitation. PA pressure of 18mmHg. (10/26/2006) Orders: E KG (CPT-[id number]) E CP Commercial (CPT-55512) C omplete Echo (CPT-[id number]) BP today: 138/80 Prior BP: / () N uclear Stress Findings: EF - 52%. N o EKG changes diagnostic for ischemia. F air exercise tolerance. N ormal myocardial perfusion imaging. (09/11/2006) C ardiac Cath: EF - 70%. N ormal left ventricular systolci fucntion. N ormal coronary arteries. M ildly elevated left heart filling pressures. (11/26/2003) C arotid Doppler/Duplex: normal: (09/14/2005) E chocardiogram: EF - 65%. D iastolic dysfunction. T race mitral regurgitation. M ild tircuspid regurgitation. PA pressure of 18mmHg. (10/26/2006) David Vangeas MD Date Name Abdominal US Complete Echo Complete Echo Sleep Study Titratio n DLCO - 35705 FRC - 74330 FVC - 92919 Stress Cardiac PET-C T Complete Echo Stress Cardiac PET-C T Sleep Study Home SHAWANDA - [facility] Stress Cardiac PET-C T Lipoprotein (a) Complete Echo Complete Echo RPM (remote patient monitoring) RPM (remote patient monitoring) Complete Echo Complete Echo RPM (remote patient monitoring) BASIC METABOLIC PANE L W/EGFR Holter Monitor 24 Hr RPM (remote patient monitoring) Complete Echo Stress Regadenoson Complete Echo SHAWANDA - [facility] Arterial - SENSILASE IRON AND TOTAL IRON BINDING CAPACITY FERRITIN PROBNP, N TERMINAL Venous Doppler Bilat eral LE - Reflux LIPID PANEL Complete Echo PROBNP, N TERMINAL Cardiac Cath - Right - [facility] DLCO - 79510 FRC - 43282 FVC - 98793 PROTHROMBIN TIME WIT H INR CBC (INCLUDES DIFF/P LT) BASIC METABOLIC PANE L W/EGFR X-Ray, Chest - Routi ne LIPID PANEL URINALYSIS, RANDOM, MICROALB/CREATININE CT, Coronary Calcium Score COMPREHENSIVE METABO LIC PANEL, W/EGFR VITAMIN D, 25-HYDROX Y, LC/MS/MS IRON AND TOTAL IRON BINDING CAPACITY FERRITIN PROBNP, N TERMINAL ECP - Medicare COMPREHENSIVE METABO LIC PANEL W/EGFR PROBNP, N TERMINAL IRON AND TOTAL IRON BINDING CAPACITY FERRITIN CBC (INCLUDES DIFF/P LT) Sleep Study Titratio n Sleep Study Home X-Ray, Chest, PA & L ateral THYROID PANEL WITH T SH, 3RD GENERATION VITAMIN D, 25-HYDROX Y, LC/MS/MS VITAMIN B12 RETICULOCYTE COUNT IRON AND TOTAL IRON BINDING CAPACITY FOLATE, SERUM FERRITIN CBC (INCLUDES DIFF/P LT) HEMOGLOBIN A1c COMPREHENSIVE METABO LIC PANEL W/EGFR LIPID PANEL PROBNP, N TERMINAL Complete Echo Renal Artery Duplex Complete Echo ECP Commercial Complete Echo Spirometry Full PFT Cardiac Cath - L/R - GC Stress Test - [place] Complete Echo ECP Commercial Cardiopulmonary Stre ss Test Stress Test - [place] Complete Echo Spirometry Venous Doppler Bilat eral LE Arterial Duplex Lowe r Extremity Bilateral Complete Echo ECP Commercial Holter Monitor 24 Hr X-Ray, Chest, PA & L ateral HISTORY OF PROCEDURES Procedure Date Procedure Name Provider Procedure Notes S tatus Complex e/m visit add on David Vanegas MD completed Complex e/m visit add on David aVnegas MD completed FVC / MVV with bronchodilator - 72896 David Vanegas MD completed BLOOD COUNT HEMOGLOBIN David Vanegas MD completed FRC - 11259 David Vanegas MD complet ed SpO2 w/o 6min walk/titration David Vanegas MD completed DLCO - 05735 David Vanegas MD comple roxanne EKG David Vanegas MD complete d EKG Daivd Vangeas MD complete d EKG David Vanegas MD complete d EKG David Vanegas MD complete d EKG David Vanegas MD complete d SNOMED-CT: [id number] Current Medications Documented David Vanegas MD completed FVC / MVV with bronchodilator - 32817 David Vanegas MD completed BLOOD COUNT HEMOGLOBIN David Vanegas MD completed FRC - 82936 David Vanegas MD complet ed SpO2 - 68138 David Vanegas MD comple roxanne DLCO - 16240 David Vanegas MD comple roxanne SNOMED-CT: 252340754 021980 Current Medications Documented Dvaid Vanegas MD completed CT- Coronary CA score David Vanegas MD completed EKG David Vanegas MD complete d SNOMED-CT: [id number] 284480 Current Medications Documented David Vanegas MD completed SNOMED-CT: 305110984 032116 Current Medications Documented David Vanegas MD completed SNOMED-CT: [id number] Physical Exam, Performed: Pulse Exam of Foot David Vanegas MD completed EKG David Vanegas MD complete d SNOMED-CT: 358557305 532575 Current Medications Documented David Vanegas MD completed SNOMED-CT: 92722727 Physical Exam, Performed: Pulse Exam of Foot David Vanegas MD completed EKG David Vanegas MD complete d SNOMED-CT: 019593662 817894 Current Medications Documented David Vanegas MD completed Lipid Strip Cynthia Underwood NP comple roxanne EKG David Vanegas MD complete d EKG David Vanegas MD complete d EKG David Vanegas MD complete d EKG David Vanegas MD complete d ePrescribe - Check t his box if eRx is used David Vanegas MD completed EKG David Vanegas MD complete d EKG David Vanegas MD complete d EKG David Vanegas MD complete d
--- OUTSIDE RECORDS SUMMARY | 2024-04-04 15:19 | XMS_ITS | Referral Summary ---
Author Organization [facility] Address [address] [place] [address] Care Team Providers Care Cartography/Mapping Technician Name Role Phone Charles Armendariz DO Primary Care Provider [phone] David Vanegas MD Unavailable [phone] Encounters Date Type Department Care Team Description 04/04/2024 Telephone [facility] Rheumatology [address] [place] [address] 2nd Floor [address] [place] [phone] Arnulfo Krishnamurthy 04/02/2024 11:10 AM HEDIS REVIEW NURSE Clinical Support [facility] Bone Health [address] [place] [address] [place] [phone] Other specified disorders of bone density and structure, left thigh (Primary Dx); Rheumatoid arthritis involving multiple sites with positive rheumatoid factor (CMS/HCC) (HCC); 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; long-term (current) use of anticoagulants 04/02/2024 11:40 AM HEDIS REVIEW NURSE Office Visit [facility] Rheumatology [address] [place] [address] Floor [address] [place] [phone] Shawanda De La Cruz NP Rheumatoid arthritis involving multiple sites with positive rheumatoid factor (CMS/HCC) (HCC) (Primary Dx); High risk medication use 03/15/2024 Telephone [facility] Infectious Diseases [address] [place] [phone] Bethany Watkins Kayy Lab results 03/15/2024 Orders Only [facility] Infectious Diseases [address] [place] [phone] Ana Laura Ramires NP LTBI (latent tuberculosis infection) (Primary Dx) 03/14/2024 9:09 AM HEDIS REVIEW NURSE - 03/14/2024 11:59 PM HEDIS REVIEW NURSE Hospital Encounter [facility] [address] [place] [address] Discharge Disposition: Discharge to home or self care 03/14/2024 8:30 AM HEDIS REVIEW NURSE Office Visit [facility] Infectious Diseases [address] [place] [phone] Ana Laura Ramires NP LTBI (latent tuberculosis infection) (Primary Dx) 02/19/2024 Telephone [facility] [address] [place] [address] [address], [place] [phone] Kim Baltazar MD 02/08/2024 Telephone [facility] Infectious [address] [phone] Destiney Ac CMA 02/01/2024 Telephone [facility] Infectious Diseases [address] [place] [phone] Nelda Connors [employer]ERMOCOUPLE TESTER 01/23/[address] [phone] [facility] 01/18/2024 Documentation [facility] Rheumatology [address] [place] [address] Floor [address] [place] [phone] Arnulfo Krishnamurthy Eye Exam (7-8-24 you akduman od ok for plaquenil) 01/11/2024 Telephone [facility]ocr[facility] [place] [address] Stacy Hernandez NP Appointment/Schedules 01/09/2024 Orders Only [facility] Rheumatology [address] [place] [address] 2nd Floor [address] [place] [address] Arnulfo Krishnamurthy Rheumatoid arthritis involving multiple sites with positive rheumatoid factor (CMS/HCC) ([facility]) 01/03/2024 1:00 PM HEDIS REVIEW NURSE Office Visit [facility] Rheumatology [address] [place], [place] [address] 2nd Floor [address] [place] [address] Shawanda De La Cruz, DEISY Rheumatoid arthritis involving multiple sites with positive rheumatoid factor (CMS/HCC) (HCC) (Primary Dx); Osteopenia, unspecified location from Last 3 Months Allergies Active Allergy Reactions Criticality Noted Date Comments Ciprofloxacin Nausea only Low 09/08/2022 Daptomycin Diarrhea Low 06/29/2020 Doxycycline Unknown Low 09/19/2019 Canagliflozin Diarrhea Low 10/28/2021 Empagliflozin Diarrhea Low 04/21/2021 Lisinopril Cough Low 08/13/2018 Semaglutide Diarrhea High 01/27/2021 Povidone-Iodine Rash Medium 05/05/2017 Qhgcmvn-Tmr-Vwn Reductase Inhibitors Muscle pain Medium 11/05/2020 Valsartan Hives,Urticaria High 10/08/2015 Vancomycin Hives Medium Medications blood glucose diagnostic (Noesis EnergyTOUCH ULTRA TEST) strip test 1 by finger stick BS route before meals and bed time 400 strip 3 10/30/19 15 Active levothyroxine (SYNTHROID, LEVOTHROID) 100 mcg tablet take 1 tablet by oral route every day 0 0 02/25/20 15 Active lancets (Manzuo.comtouch ultrasoft) misc test blood sugar 4 times every day 400 each 3 10/30/19 15 Active ferrous sulfate 325 mg (65 mg of elemental iron) tabletIndicatio ns:Iron Deficiency Anemia Take 1 tablet (325 mg total) by mouth 2 (two) times a day 05/19/[address] (CYMBALTA) 20 mg capsuleIndicati ons:Anxiety with Depression Take 1 capsule (20 mg total) by mouth every morning Active fluticasone propionate (FLONASE) 50 mcg/actuation nasal sprayIndication s:Allergic Rhinitis Administer 2 sprays into each nostril every morning Active cholecalciferol (VITAMIN D-3) 5,000 unit tabletIndicatio ns:Prevention of Vitamin D Deficiency Take 1 tablet (5,000 Units total) by mouth every morning Active po-aydvimw-all- iron fm-FA-vitK 18 mg-400 mcg- 25 mcg tabletIndicatio ns:Vitamin Deficiency Prevention Take 0.5 tablets by mouth 2 (two) times a day 09/15/19 12 Active metoprolol XL (TOPROL-XL) 25 mg extended release tabletIndicatio ns:hypertension Take 1 tablet (25 mg total) by mouth every morning 06/24/19 21 Active rivaroxaban (Xarelto) 2.5 mg tabletIndicatio ns:patient unsure why she is on this med. Take 1 tablet (2.5 mg total) by mouth 2 (two) times a day 01/28/20 21 Active gabapentin (NEURONTIN) 300 mg capsuleIndicati ons:Neuropathic Pain Take 1 capsule (300 mg total) by mouth 2 (two) times a day 11/21/19 21 Active blood glucose diagnostic (OneTouch Ultra Test) strip OneTouch Ultra Test strips Take 1 strip 4 times a day by miscell. route as directed for 90 days. Active estradioL (ESTRACE) 0.01 % (0.1 mg/gram) vaginal creamIndication s:Atrophy of Vulva Insert 4 g into the vagina as needed 06/01/[address] (NexIUM) 20 mg capsuleIndicati ons:acid reflux Take 1 capsule (20 mg total) by mouth every morning Active albuterol HFA (PROVENTIL HFA,VENTOLIN HFA,PROAIR HFA) 90 mcg/actuation inhalerIndicati ons:Acute Asthma Attack Inhale 2 puffs as needed for wheezing or shortness of breath 02/23/20 23 Active ondansetron (ZOFRAN) 4 mg tablet Take 1 tablet (4 mg total) by mouth as needed for nausea or vomiting 02/07/20 23 Active insulin glargine (TOUJEO) 300 unit/mL (1.5 mL) pen for injectionIndica tions:type 2 diabetes mellitus Inject 60 Units under the skin nightly 30 mL 3 03/09/19 24 Active propylene glycol (SYSTANE COMPLETE OPHT)Indication s:dry eye Administer 1 drop into both eyes every morning Active cetirizine (ZyrTEC) 10 mg tabletIndicatio ns:Allergic Rhinitis Take 1 tablet (10 mg total) by mouth every morning Active CALCIUM ORALIndications :supplement Take 1 tablet by mouth every morning Active POTASSIUM ORALIndications :supplement Take 1 tablet by mouth every morning Active cyclobenzaprine (FLEXERIL) 5 mg tablet Take 1 tablet (5 mg total) by mouth 2 (two) times a day as needed 07/26/19 24 Active furosemide (LASIX) 20 mg tablet 08/04/19 24 Active nitrofurantoin monohydrate (MACROBID) 100 mg capsule TAKE 1 CAPSULE BY MOUTH TWICE DAILY WHEN EXPERIENCING SYMPTOMS OF INFECTION 08/09/19 24 Active aspirin 81 mg enteric coated tablet Take 1 tablet (81 mg total) by mouth daily Active BD Ultra-Fine Mini Pen Needle 31 gauge x 3/16 needle USE TO INJECT INSULIN DAILY 90 each 1 10/02/19 24 Active glimepiride (AMARYL) 4 mg tabletIndicatio ns:Type 2 diabetes mellitus with hyperglycemia, with long-term current use of insulin (HCC) Take 1 tablet (4 mg total) by mouth 2 (two) times a day after breakfast and dinner 180 tablet 3 10/24/19 24 025 Active leflunomide (ARAVA) 20 mg tablet Take 1 tablet (20 mg total) by mouth daily 90 tablet 10/27/19 24 Active Additional Information Patient not taking.Reported on 04/02/2024 metFORMIN (GLUCOPHAGE) 1,000 mg tabletIndicatio ns:Type 2 diabetes mellitus with hyperglycemia, with long-term current use of insulin (HCC) TAKE 1 TABLET BY MOUTH TWICE DAILY WITH MEALS 180 tablet 3 01/08/20 24 Active isoniazid (NYDRAZID) 300 mg tabletIndicatio ns:Mycobacterio sis Take 1 tablet (300 mg total) by mouth daily 30 tablet 5 01/01/20 24 025 Active pyridoxine (VITAMIN B-6) 50 mg tablet Take 1 tablet (50 mg total) by mouth daily 30 tablet 5 01/01/20 24 025 Active magnesium oxide (MAG-OX) 400 mg (241.3 mg elemental magnesium) tablet Take 1 tablet (400 mg total) by mouth daily Active atorvastatin (LIPITOR) 40 mg tabletIndicatio ns:Hyperlipidem ia associated with type 2 diabetes mellitus (HCC) TAKE 1 TABLET BY MOUTH EVERY NIGHT 90 tablet 3 02/05/20 24 Active fluticasone propion-salmete roL (ADVAIR DISKUS) 100-50 mcg/dose diskus inhaler Inhale 1 puff 2 (two) times a day 01/19/20 24 Active hydroxychloroqu ine (PLAQUENIL) 200 mg tabletIndicatio ns:Rheumatoid Arthritis Take 1 tablet (200 mg total) by mouth 2 (two) times a day 180 tablet 1 04/03/19 25 Active ciprofloxacin (CIPRO) 500 mg tablet TAKE 1 TABLET BY MOUTH TWICE DAILY FOR SYMPTOMS OR UTI 08/26/19 23 Discontin ued(Aller gic response) hydroxychloroqu ine (PLAQUENIL) 200 mg tabletIndicatio ns:Rheumatoid Arthritis Take 1 tablet (200 mg total) by mouth 2 (two) times a day 180 tablet 1 02/09/20 24 025 Discontin ued(Reord er) Active Problems Problem Noted Date Diagnosed Date LTBI (latent tuberculosis infection) 03/15/2024 Assessment & Plan (03/15/2024 10:09 AM HEDIS REVIEW NURSE): - 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 She will call with any issues. CHF (congestive heart failure) ([facility]) 024 Hyperlipidemia associated with type 2 diabetes vivek dill 10/24/2023 Assessment & Plan (10/24/2023 3:19 PM CDT): Chronic problem. Currently taking Atorvastatin 40mg. Last lipid panel: 03/09/23 LDL=37 BJ=446. Positive TB test 09/19/2023 Assessment & Plan (01/01/2024 12:37 PM HEDIS REVIEW NURSE): - Unable to tolerate rifabutin as she developed elevated liver enzymes along with increase in baseline nausea and abdominal pain. She also had diarrhea. Diarrhea has resolved and nausea/abdominal pain has returned to her baseline since stopping therapy. - Start isoniazid 300 mg PO daily along with B6 50 mg daily for treatment of latent TB x 6 months - Will need close monitoring of liver enzymes while on isoniazid. She will get CBC and CMP 1 month after starting therapy. - Isoniazid can increase risk of hypoglycemia with her glimepiride. I asked her to monitor her blood sugar at least twice daily and if she notices decrease in her blood sugars or has symptoms of hypoglycemia she should let me know and we will discuss cutting glimepiride dose with PCP - Flu shot today Assessment & Plan (11/20/2023 12:04 PM CDT): - Doing well on rifabutin for treatment of latent TB. No adverse effects. - Continue rifabutin 300 mg PO daily x 4 months. Rifabutin chosen over rifampin due to drug interactions - CBC and CMP today, plan to repeat labs in 2 months - Discussed rational for treatment and plan for 4 months of therapy. Also discussed adverse effects to monitor for Assessment & Plan (09/19/2023 1:51 PM CDT): - Positive T spot in the setting of known exposure previously and reported positive tests several years ago. No symptoms or imaging findings concerning for active TB therefore will plan to treat as latent infection - Discussed at length with patient the rational for treatment along with risk of developing active infection. She is agreeable to treatment - Start rifabutin 300 mg PO daily x 4 months. Rifabutin chosen over rifampin due to drug interactions - Repeat CBC and CMP in 1 month at [facility] - Ok to start biologic for rheumatoid arthritis after she has been on rifabutin for 1 month. Will forward note to rheumatology Class 2 severe obesity due t o excess calories with serious comorbidity and body mass index (BMI) of 39.0 to 39.9 in adult 03/09/2023 Assessment & Plan (03/09/2023 10:05 AM HEDIS REVIEW NURSE): Discussed healthy diet and importance of regular physical activity (20- 30min/day, 150min/wk). Difficulty with activity d/t chronic/severe bilat knee pain. Has L knee replacement scheduled 04/2023. Injury of great toe 12/05/2022 Overview (12/05/2022): right Neuropathy 12/05/2022 Sensorineural hearing loss 12/01/2022 Shortness of breath 11/17/2022 Blister of toe without infection 07/05/2022 Dog bite 06/23/2022 Flexion contracture of joint of toe 06/23/2022 Elevated liver enzymes 05/31/2022 Class 2 severe obesity due t o excess calories with serious comorbidity and body mass index (BMI) of 38.0 to 38.9 in adult 03/22/2022 Assessment & Plan (03/22/2022 8:59 AM HEDIS REVIEW NURSE): Chronic problem, stable. Discussed healthy diet and importance of regular physical activity (20- 30min/day, 150min/wk). Bunion 03/13/2022 Hammer toe 03/13/2022 Dystrophia unguium 03/13/2022 Foot callus 03/13/2022 History of amputation of left great toe (CMS/HCC ) 03/13/2022 Stage 2 chronic kidney disease 10/28/2021 Overview (12/05/2022): cannot affored krenda and itol to sglt2 cannot affored krenda and itol to sglt2 Nocturia 04/14/2021 Palpitations 02/05/2021 Cardiac arrhythmia, unspecified 01/27/2021 Encounter for surgical after care following surgery of circulatory system 09/04/2020 Amputation of left great toe (CMS/HCC) 1 Ulcer of toe of left foot, limited to breakdown of skin 07/02/2020 Overview (07/02/2020): Added automatically from request for surgery [id number] Median neuropathy, left 11/19/2019 Overview (11/19/2019): Added automatically from request for surgery [id number] Ulnar neuropathy of left upper extremity 020 Overview (11/19/2019): Added automatically from request for surgery [id number] Anxiety 05/24/2019 Asthma 05/24/2019 Brachial neuritis 05/24/2019 Major depressive disorder 05/24/2019 Gastroesophageal reflux disease without esophagi tis 05/24/2019 Gout 05/24/2019 Spleen hematoma 05/24/2019 Osteoarthritis 05/24/2019 Primary localized osteoarthrosis of shoulder reg ion 05/24/2019 Recurrent dislocation of shoulder region 020 Hypothyroidism 04/10/2019 Assessment & Plan (10/24/2023 3:19 PM CDT): Chronic problem. Currently taking levothyroxine 100mcg. Clinically & biochemically euthyroid at this time. Aware to take 1st thing in morning, 30-60 minutes before food/drink/other medications. Component Latest Ref Rng 11/25/2019 09/08/2022 Component Latest Ref Rng 11/25/2019 09/08/2022 08/10/2023 TSH 0.30 - 4.20 mcIUnit/mL 2.88 2.37 0.85 Component Latest Ref Rng 09/08/2022 08/10/2023 Free T4 0.90 - 1.70 ng/dL 1.23 1.25 Assessment & Plan (08/10/2023 10:07 AM CDT): Chronic problem. Currently taking levothyroxine 100mcg. Clinically & biochemically euthyroid at this time. Aware to take 1st thing in morning, 30-60 minutes before food/drink/other medications. Will update TFTs today. Does not mychart. Verified phone #/address to contact re: results. Component Latest Ref Rng 11/25/2019 09/08/2022 TSH 0.30 - 4.20 mcIUnit/mL 2.88 2.37 Component Latest Ref Rng 09/08/2022 Free T4 0.90 - 1.70 ng/dL 1.23 Assessment & Plan (03/09/2023 9:54 AM HEDIS REVIEW NURSE): Chronic problem. Currently taking levothyroxine 100mcg. Clinically & biochemically euthyroid at this time. Aware to take 1st thing in morning, 30-60 minutes before food/drink/other medications. Component Latest Ref Rng 11/25/2019 09/08/2022 TSH 0.30 - 4.20 mcIUnit/mL 2.88 2.37 Component Latest Ref Rng 09/08/2022 Free T4 0.90 - 1.70 ng/dL 1.23 Assessment & Plan (09/08/2022 11:32 AM CDT): Chronic problem. Currently taking levothyroxine 100mcg. Has been >1yr since last TFTs drawn. Will go to lab today. Will update labs today. Does not mychart. Verified phone #/address to contact re: results. Assessment & Plan (11/25/2019 10:57 AM CDT): Check TSH and adjust as indicated Assessment & Plan (09/19/2019 1:14 PM CDT): Clinically euthyroid. Will check TFTs and adjust dose if indicated. 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 - s/p OR 07/20 for diagnostic left lower extremity angiogram (no intervention, small PT, but healthy appearing) and left great toe amputation. - Follow OR cultures, no antibiotics for now. - WBAT with postoperative shoe. - Monitor left groin. Neuropathic pain 08/02/2018 Pulmonary hypertension 08/02/2018 Acquired deformity of right foot 07/20/2018 Overview (07/20/2018): Added automatically from request for surgery [id number] Sjogren's syndrome 12/05/2017 High risk medication use 12/05/2017 Diabetic polyneuropathy asso ciated with type 2 diabetes mellitus ([facility]) 10/19/2017 Assessment & Plan (10/24/2023 3:19 PM CDT): Chronic problem. Currently taking Gabapentin 300mg bid. Reviewed foot care; needs to lotion daily. Aware to check feet nightly, not to go barefoot. Assessment & Plan (08/10/2023 10:08 AM CDT): Chronic problem. Currently taking Gabapentin 300mg bid. Reviewed foot care; needs to lotion daily. Aware to check feet nightly, not to go barefoot. Assessment & Plan (03/09/2023 9:47 AM HEDIS REVIEW NURSE): Chronic problem. Currently taking gabapentin. Aware to check feet nightly & not go barefoot. Assessment & Plan (09/08/2022 11:14 AM CDT): Chronic problem. Currently taking gabapentin. Aware to check feet nightly. Assessment & Plan (03/21/2022 8:54 AM HEDIS REVIEW NURSE): Chronic problem. Currently taking gabapentin. Aware to check feet nightly. Assessment & Plan (05/13/2021 10:51 AM CDT): Foot care discussed Assessment & Plan (11/05/2020 2:29 PM CDT): Foot care discussed The patient does not feel that Neurontin helps of will discontinue Assessment & Plan (04/02/2020 1:40 PM HEDIS REVIEW NURSE): On Neurontin Foot care discussed Assessment & Plan (10/19/2017 10:52 AM CDT): Foot care discussed On neurointin Advised on seeing foot dr. Hyperlipidemia 10/19/2017 Assessment & Plan (03/09/2023 9:48 AM HEDIS REVIEW NURSE): Chronic problem. Current on atorvastatin 40mg daily. Last lipid panel: 11/04/21 LDL=26, XA=372. Will update labs today. Does not mychart. Verified phone #/address to contact re: results. Assessment & Plan (09/08/2022 11:14 AM CDT): Chronic problem. Current on atorvastatin 40mg daily. 11/04/21 LDL=26. No changes. Assessment & Plan (03/21/2022 8:53 AM HEDIS REVIEW NURSE): Chronic problem. Current on atorvastatin 40mg daily. 11/04/21 LDL=26. No changes. Assessment & Plan (11/04/2021 10:52 AM CDT): Chronic problem. On statin therapy, no changes. Assessment & Plan (05/13/2021 10:52 AM CDT): Chronic, well controlled Low fat Low cholesterol diet Exercise Continue statin therapy Assessment & Plan (11/05/2020 2:28 PM CDT): Diet and exercise Continue atorvastatin Request for fasting lipid profile given Assessment & Plan (07/02/2020 4:04 PM CDT): Goal of treatment , LDL cholesterol less than 100 ( less than 70 in patients with history of heart attacks and / or strokes ) NonHDL cholesterol ( total cholesterol minus HDL cholesterol ) goal less than 130 ( less than 100 in patients with history of heart attacks and / or strokes ) Low cholesterol, low fat diet was discussed and advised. Daily exercise On statin therapy with Lipitor Assessment & Plan (04/02/2020 1:37 PM HEDIS REVIEW NURSE): Goal of treatment , LDL cholesterol less than 100 ( less than 70 in patients with history of heart attacks and / or strokes ) NonHDL cholesterol ( total cholesterol minus HDL cholesterol ) goal less than 130 ( less than 100 in patients with history of heart attacks and / or strokes ) Low cholesterol, low fat diet was discussed and advised. Daily exercise On statin therapy wit Lipitor Assessment & Plan (11/25/2019 10:40 AM CDT): At goal on current medications. Continue statin therapy. Assessment & Plan (09/19/2019 1:14 PM CDT): Will check lipid panel today Assessment & Plan (05/30/2019 2:25 PM CDT): At goal on current medications. Continue statin therapy. Assessment & Plan (03/12/2019 12:24 PM HEDIS REVIEW NURSE): Goal of treatment , LDL cholesterol less than 100 ( less than 70 in patients with history of heart attacks and / or strokes ) NonHDL cholesterol ( total cholesterol minus HDL cholesterol ) goal less than 130 ( less than 100 in patients with history of heart attacks and / or strokes ) Low cholesterol, low fat diet was discussed and advised. Daily exercise On statin therapy Assessment & Plan (10/09/2018 11:55 AM CDT): Goal of treatment , LDL cholesterol less than 100 ( less than 70 in patients with history of heart attacks and / or strokes ) NonHDL cholesterol ( total cholesterol minus HDL cholesterol ) goal less than 130 ( less than 100 in patients with history of heart attacks and / or strokes ) Low cholesterol, low fat diet was discussed and advised. Daily exercise On statin therapy Assessment & Plan (06/07/2018 10:43 AM CDT): Goal of treatment , LDL cholesterol less than 100 ( less than 70 in patients with history of heart attacks and / or strokes ) NonHDL cholesterol ( total cholesterol minus HDL cholesterol ) goal less than 130 ( less than 100 in patients with history of heart attacks and / or strokes ) Low cholesterol, low fat diet was discussed and advised. Daily exercise On statin therapy Assessment & Plan (10/19/2017 10:53 AM CDT): Goal of treatment , LDL cholesterol less than 100 ( less than 70 in patients with history of heart attacks and / or strokes ) NonHDL cholesterol ( total cholesterol minus HDL cholesterol ) goal less than 130 ( less than 100 in patients with history of heart attacks and / or strokes ) Low cholesterol, low fat diet was discussed and advised. Daily exercise On statin therapy Fibromyalgia 03/30/2017 Sjogrens syndrome 03/30/2017 Overview (03/06/2018): Overview: Pt has Sjogrens syndrome . positive SSB [...] side effects discussed . advised to call [facility] and make an early appt as soon as possible so that the rest of the work up can be completed there . get copy of emg/ncs. Muscle, ligament, or fascia disorder 03/30/2017 Overview (03/30/2017): Overview: Mu Type 2 diabetes mellitus wit h hyperglycemia, with long-term current use of insulin 01/17/2017 Assessment & Plan (10/24/2023 3:40 PM CDT): Chronic problem, A1c worsened from 7.5% 08/10/23 to now 8.0%. does not want to add another medication. Agreeable to increase glimepride to 4mg with breakfast & dinner Current medications: Metformin 1000mg twice daily with meals Glimepiride 4mg with breakfast & dinner Toujeo 60 units every evening UTD on labs. UTD on DM eye exam (03/06/23 at [facility]). Discussed need to increase activity outside of housework. Discussed with Aleyda Dobbs: Strive for regular exercise (30min most days) and diet (get at least 4-5 servings of fruit and veggies daily, avoid processed foods, increase lean protein intake and decrease carb portions as well as fruit juices, regular soda & desserts). Watch carbs and simple sugars. Check the blood sugar: three times daily. Check the feet daily for skin breakdown and infection. Assessment & Plan (08/10/2023 10:07 AM CDT): Chronic problem, A1c improved slightly from 7.7% 03/09/23 to now 7.5%. Current medications: Metformin 1000mg twice daily with meals Glimepiride 4mg every morning Toujeo 60 units every evening UTD on labs. UTD on DM eye exam (03/06/23 at [facility]). Discussed need to increase activity outside of housework. Discussed with Aleyda Dobbs: Strive for regular exercise (30min most days) and diet (get at least 4-5 servings of fruit and veggies daily, avoid processed foods, increase lean protein intake and decrease carb portions as well as fruit juices, regular soda & desserts). Watch carbs and simple sugars. Check the blood sugar: three times daily. Check the feet daily for skin breakdown and infection. Assessment & Plan (03/09/2023 10:02 AM HEDIS REVIEW NURSE): Chronic problem, A1c worsening. A1c breanna from 7.4% 08/2022 to now 7.7%. reports worse eating over holidays but has since improved. Limited activity d/t bilat knee pain. Has L knee replacement scheduled 04/2023. Has R carpal tunnel release scheduled 04/22/23. Current medications: Metformin 1000mg twice daily with meals Glimepiride 4mg every morning Toujeo 60 units every evening Will update labs today. Does not mychart. Verified phone #/address to contact re: results. DM eye exam 03/06/23 at [facility] in [place]. Letter sent to get copy of report. Discussed need to increase activity outside of housework. Discussed with Aleyda Dobbs: Strive for regular exercise (30min most days) and diet (get at least 4-5 servings of fruit and veggies daily, avoid processed foods, increase lean protein intake and decrease carb portions as well as fruit juices, regular soda & desserts). Watch carbs and simple sugars. Check the blood sugar: three times daily. Check the feet daily for skin breakdown and infection. Assessment & Plan (09/08/2022 11:28 AM CDT): Chronic problem, near goal. A1c dropped from 8.1% 02/2022 to now 7.4%. Current medications: Metformin 1000mg twice daily with meals Glimepiride 4mg every morning Toujeo 60 units every evening UTD on labs. UTD on DM eye exam. Discussed need to increase activity outside of housework. Assessment & Plan (03/22/2022 9:20 AM HEDIS REVIEW NURSE): Chronic problem, not at goal. Continue: Metformin 1000 mg BID Toujeo 60 units qHS (lower to 50 units if FBG <90) Will increase: Glimepiride 4mg every morning as evening BG typically in 260s. Discussed adjusting toujeo depending on BG also. Assessment & Plan (11/04/2021 12:08 PM CDT): Chronic problem, not at goal. Partially due to recent UTIs. Unfortunately she does not tolerate even low dose GLP1a. Will avoid SGLT2i right now given her recurrent UTIs. Add low dose glimepiride 2 mg in the morning, if staying >200 in the evenings increase to 4 mg and let us know so we can adjust rx. She may need decrease in Toujeo, so if FBG <90 or any lows then lower to 50 units. Update MA/Cr today. Assessment & Plan (05/13/2021 10:50 AM CDT): Hba1c was Lab Results Component Value Date HGBA1C 6.7 05/13/2021 today, indicating adequate DM control Goal Hba1c and blood glucose explained Diet and exercise were advised Prevention and treatment of hyypoglcyemia were discussed with the patient Blood glucose monitoring : 2 x day Adjustment to medications: Continue Toujeo and Metformin Assessment & Plan (11/05/2020 2:28 PM CDT): Hba1c was Lab Results Component Value Date HGBA1C 5.8 11/05/2020 today, indicating adequate DM control with hypoglycemia Goal blood sugars in the 120-150 range , with Hb1c under 7.0 % was explained 1800 calorie, consistent carb diet recommended. No more than 30-45 grams of carbs per meal recommended, as well as avoiding high concentrated sweet drinks . 25-45 min daily exercise, combining both aerobic and resistance exercise recommended. The need to monitor blood glucose before meals and bedtime was discussed. Prevention and treatment of hyypoglcyemia discussed. Stop Humalog Lower Toujeo to 60 units daily Increase Ozempic of from 0.5 mg weekly to 1 mg weekly Assessment & Plan (07/20/2020 12:14 PM CDT): On home glargine 70u nightly and SSI, metformin, and Ozempic. - Start lantus, SSI, and hold metformin and Ozempic. - Resume home regimen at discharge. - Monitor glucoses and adjust regimen PRN Assessment & Plan (07/02/2020 4:02 PM CDT): Hba1c was Lab Results Component Value Date HGBA1C 6.5 07/02/2020 today, indicating adequate DM control Goal blood sugars in the 120-150 range , with Hb1c under 7.0 % was explained 1800 calorie, consistent carb diet recommended. No more than 30-45 grams of carbs per meal recommended, as well as avoiding high concentrated sweet drinks . 25-45 min daily exercise, combining both aerobic and resistance exercise recommended. The need to monitor blood glucose before meals and bedtime was discussed. Prevention and treatment of hyypoglcyemia discussed. Continue current in the insulin regimen along with Ozempic Assessment & Plan (09/19/2019 1:16 PM CDT): A1c is 8.1. FBG consistently elevated, less so at dinner but still above goal. Increase Toujeo to 78 units. BG goals and pattern discussed. Send in log q 2-3 weeks for evaluation. Assessment & Plan (05/30/2019 2:25 PM CDT): Continue current Toujeo dose and metformin. Will provide with specific Humalog scale to use. Would benefit from Omnipod insulin pump so that different basal rates can be set and bolusing for snacks. She will consider. Assessment & Plan (03/12/2019 12:23 PM HEDIS REVIEW NURSE): Hba1c was Lab Results Component Value Date HGBA1C 8.2 03/12/2019 today, indicating inadequate DM control 1800 calorie, consistent carb diet recommended. No more than 30-45 grams of carbs per meal recommended, as well as avoiding high concentrated sweet drinks . 25-45 min daily exercise, combining both aerobic and resistance exercise recommended. The need to monitor blood glucose before meals and bedtime was discussed. Prevention and treatment of hyypoglcyemia discussed. Insulin dose: Restart a basal insulin with Toujeo 75 units daily Assessment & Plan (10/09/2018 11:55 AM CDT): Hba1c was Lab Results Component Value Date HGBA1C 6.8 10/09/2018 today, indicating Adequate DM control 1800 calorie, consistent carb diet recommended 25-45 min daily exercise, combining both aerobic and resistance exercise recommended. The need to monitor blood glucose before meals and bedtime was discussed. Dose of basal and prandial insulin adjusted as follows: Continue current regimen Prevention and treatment of hyypoglcyemia discussed. Assessment & Plan (06/07/2018 10:54 AM CDT): Hba1c was Lab Results Component Value Date HGBA1C 7.9 06/07/2018 today, indicating 177 DM control 1800 calorie, consistent carb diet recommended 25-45 min daily exercise, combining both aerobic and resistance exercise recommended. The need to monitor blood glucose before meals and bedtime was discussed. Dose of basal and prandial insulin adjusted as follows: Continue current regimen Prevention and treatment of hyypoglcyemia discussed. Assessment & Plan (10/19/2017 10:50 AM CDT): Your Hba1c today was: Lab Results Component Value Date HGBA1C 8.5 10/19/2017 meaning a 3 month average sugar of : 197 Your goal hba1c is under 7.0 to prevent long term care phlebotomist diabetes complications ( eye , kidney and nerve damage ) . Your goal sugars are in the 90-130 range Daily aerobic ( walking, riding a bike, swimming ) and resistance exercises ( light weight lifting, resistance band stretching ) for at least 30 minutes is recommended If you can not walk, chair exercises is very acceptable. As little as 15-20 minutes exercise , in one or two sessions a day, is still very helpful and will help to improve your diabetes control . Eat small portion meals, no more than 1800 calories Diet Try to eat not more than than 2-3 servings of carbs ( starches ) wiith your meals. Avoid soft drinks, including regular sodas , fruit juices and sweetened tea. Drink water instead. Eat plenty of green and leafy vegetables, including salads. Take your medications regularly,including your insulin injections. Monitor your sugar levels with finger sticks regularly and keep a log sheet or book. Bring your sugar meter and /or a log book or log sheet to every office visit. Increase Lantus to 75 units And increase Humalog by 2 units. Assessment & Plan (07/13/2017 11:26 AM CDT): A1c now 8.4. Start Jardiance 10 mg daily in the morning. Actions and s/e reviewed. No hx frequent UTI or mycotic infections. E-GFR 76. Check blood sugars daily fasting and before one other meal. Continue metformin, Lantus, Humalog. Assessment & Plan (03/30/2017 12:29 PM HEDIS REVIEW NURSE): A1c 6.6 but she does have anemia with elevated RDW. Bydureon since 12/2016 may have also helped to improve A1c but will be stopping that for now. Will evaluate again at next Ov. Assessment & Plan (01/17/2017 10:11 AM HEDIS REVIEW NURSE): Hba1c was 8.8 today, indicating inadequate DM control 1800 calorie, consistent carb diet recommended 30 min daily exercise, combining both aerobic and resistance exercise is strongly recommended and needed as part of diabetes management plan. The need to monitor blood glucose before meals and bedtime was discussed. Take prandial insulin before meals based on carb intake and blood glucose readings. Prevention and treatment of hyypoglcyemia discussed. Start Bydureon , once a week Hypertensive disorder 01/17/2017 Assessment & Plan (03/09/2023 9:47 AM HEDIS REVIEW NURSE): Chronic problem, well controlled on current Metoprolol XL 25mg daily, furosemide 20mg daily Will update labs today. Does not mychart. Verified phone #/address to contact re: results. Assessment & Plan (09/08/2022 11:14 AM CDT): Chronic problem, well controlled on current Metoprolol XL 25mg daily, furosemide 20mg daily No changes at this time. Assessment & Plan (03/22/2022 9:00 AM HEDIS REVIEW NURSE): Chronic problem, well controlled on current metoprolol XL 25mg daily. No changes at this time. Assessment & Plan (07/02/2020 4:04 PM CDT): Goal blood pressure is less than 140/85 Low salt diet was discussed andd recommended The importance of daily aerobic exercise was also emphasized. Continue current meds Assessment & Plan (04/02/2020 1:38 PM HEDIS REVIEW NURSE): Goal blood pressure is less than 140/85 Low salt diet was discussed andd recommended The importance of daily aerobic exercise was also emphasized. Continue current meds Assessment & Plan (11/25/2019 10:40 AM CDT): Controlled on current medications. Continue plan. Assessment & Plan (09/19/2019 1:14 PM CDT): Controlled on current medications. Continue plan. Assessment & Plan (05/30/2019 2:26 PM CDT): Continue current medications. Advised BP checks weekly. Will obtain copy of MA. Assessment & Plan (03/12/2019 12:24 PM HEDIS REVIEW NURSE): Goal blood pressure is less than 140/85 Low salt diet recommended Daily aerobic exercise Continue current med Check microalbumin Assessment & Plan (10/09/2018 11:55 AM CDT): Goal blood pressure is less than 140/85 Low salt diet recommended Daily aerobic exercise Continue current meds, including MICHEAL-I or ARB Assessment & Plan (06/07/2018 10:44 AM CDT): Goal blood pressure is less than 140/85 Low salt diet recommended Daily aerobic exercise Continue current meds, including MICHEAL-I or ARB Assessment & Plan (07/13/2017 11:19 AM CDT): Controlled on current medications. Assessment & Plan (03/30/2017 12:33 PM HEDIS REVIEW NURSE): Controlled on current medications. Assessment & Plan (01/17/2017 10:12 AM HEDIS REVIEW NURSE): Goal blood pressure is less than 140/85 Low salt diet recommended Daily aerobic exercise Continue current meds, including MICHEAL-I or ARB Pain of foot 11/23/2015 Mild intermittent asthma without complication Granulomatous lung disease 10/08/2015 Disorder of lung 10/08/2015 Elevated rheumatoid factor 08/19/2015 Microalbuminuria 10/02/2014 Vitamin D deficiency 10/02/2014 Carpal tunnel syndrome 05/01/2014 Positive antinuclear antibody 12/27/2013 Congenital malformation of heart, unspecified Overview (05/01/2020): LAD TO PA FISTUAL SMALL, NO STEP UP, Lumbago 02/22/2012 Anemia of chronic disease 10/07/2011 Overview (05/15/2023): previould iron def Anemia, iron deficiency 10/07/2011 Overview (05/01/2020): b12 and foalted ok Acquired trigger finger 03/29/2011 Atherosclerotic heart diseas e of [place] coronary artery without angina pectoris 09/09/2010 Chronic diastolic (congestive) heart failure 11/2009 Overview (05/15/2023): intol darcy lucia, ef too good for entrsto Resolved Problems Problem Noted Date Diagnosed Date Resolved Date Diabetic peripheral neuropathy ([facility]/HCC) 03/13/2022 08/09/2023 Morbid (severe) obesity due to excess calories 11/04/2021 03/21/2022 Wheezing 02/05/2021 03/21/2022 Morbid obesity (CMS/HCC) 07/13/2017 Assessment & Plan (11/25/2019 10:39 AM CDT): Importance of following diet and exercising discussed. Assessment & Plan (09/19/2019 1:15 PM CDT): Importance of following diet and exercising discussed. Assessment & Plan (05/30/2019 2:25 PM CDT): Importance of following diet and exercising discussed. Assessment & Plan (07/13/2017 11:19 AM CDT): Importance of diet and exercise reviewed. Arthralgia 03/30/2017 03/22/2022 Muscle spasm 03/30/2017 03/22/2022 Hyperlipidemia 03/30/2017 03/21/2022 Assessment & Plan (07/13/2017 11:19 AM CDT): Continue atorvastatin Assessment & Plan (03/30/2017 12:33 PM HEDIS REVIEW NURSE): Continue statin Obesity due to excess calories 11/05/2015 03/21/2022 Assessment & Plan (03/30/2017 12:20 PM HEDIS REVIEW NURSE): Current exercise will be reduced with completion of Pt. Advised to add walking or other home based exercise to current house work. Elevated erythrocyte sedimentation rate 12/27/2013 03/21/2022 Need for immunization against influenza 12/27/2013 03/21/2022 Immunizations Name Administration Dates Next Due Influenza, Quadrivalent, Spl it, Intramuscular 12/09/2019 Influenza, Trivalent, Preser vative Free, Intramuscular 01/01/2024,12/27/2013 Influenza, Unspecified 12/05/2022 Pfizer SARS-CoV-2 Monovalent Vaccination (12+ Yrs) DOWNING-READY TO USE 03/22/2021 Pfizer SARS-CoV-2 Monovalent Vaccination (12+ Yrs) PURPLE 09/28/2021,06/10/2020,05/08/2020 Tdap 09/14/2021 Social History Tobacco Use Types Packs/Day Years Used Date Smoking Tobacco: Former Cigarettes 1 19 1 979 - 1997 Passive Smoke Exposure: Never Smokeless Tobacco: Never Tobacco Cessation:Counseling Given: Not Answered Alcohol Use Standard Drinks/Week Comments Yes 0 (1 standard drink = 0.6 oz pur e alcohol) rare AUDIT-C Answer Date Recorded Q1: How often do you have a drink containing alcohol? Never 12/08/2023 Q2: How many drinks containi ng alcohol do you have on a typical day when you are drinking? Patient does not drink Q3: How often do you have si x or more drinks on one occasion? Never 12/08/2023 PHQ-2 Answer Date Recorded PHQ-2 Total Score (If total score is 3 or more points, staff should administer the PHQ-9) 0 05/13/2021 Personal Safety Answer Date Recorded Have you ever been in or are you currently in a harmful physical or emotional relationship or is someone making you feel afraid or unsafe? Denies 12/08/2023 Comments No Sex and Gender Information Value Date Recorded Sex Assigned at Not on file Legal Sex Female 12:14 AM HEDIS REVIEW NURSE Gender Identity Not on file Sexual Orientation Not on file Last Filed Vital Signs Vital Sign Reading Time Taken Comments Blood Pressure 145/75 04/02/2024 11:20 AM HEDIS REVIEW NURSE Pulse 96 04/02/2024 11:20 AM HEDIS REVIEW NURSE Temperature 36.9 C (98.5 F) 04/02/2024 11:20 AM HEDIS REVIEW NURSE Respiratory Rate 21 12/08/2023 9:12 AM CDT Oxygen Saturation 100% 04/02/2024 11:20 AM HEDIS REVIEW NURSE Inhaled Oxygen Concentration - - Weight 98 kg (216 lb) 04/02/2024 11:20 AM HEDIS REVIEW NURSE Height 154.9 cm (5' 1 ) 04/02/2024 11:20 AM HEDIS REVIEW NURSE Body Mass Index 40.81 04/02/2024 11:20 AM HEDIS REVIEW NURSE Plan of Treatment Not on file Medical Devices Implanted Type Area Cigarette Carton Sealer Device Identifier Shelf Expiration Date Model / Serial / Lot Allosource [id number] Freeze Dried Chips Graft 15ml Bone Cancellous Cortical - [id number] Implanted:Qty: 1 on 08/14/2018 by Pradip Whalen MD at [facility] Bone Allosource 08/28/2022 [id number] / / [id number] Allosource [id number] Allogro Freeze Dried Graft 15ml Bone Demineralized Bone Matrix - [id number] Implanted:Qty: 1 on 08/14/2018 by Pradip Whalen MD at [facility] Bone Allosource 03/15/2023 [id number] / / [id number] Intraocular Lens Bilateral : Eye Orthohelix [id number] Maxtorque 4mm 37.5mm Cannulated Self Drill Foot Ankle Long Thread - [id number] Implanted:Qty: 1 on 08/14/2018 by Pradip Whalen MD at [facility] Right: Foot Orthohelix MSD-010-40- 375L / / [employer] [id number] Cristobal .062in 9in Style 1 Wire Fixation Stainless Steel - [id number] Implanted:Qty: 1 on 08/14/2018 by Pradip Whalen MD at [facility] Right: First Toe [employer] [id number] / / Orthohelix Mxl-002-2a Maxlock Extreme 2 Hole [place] Alpha Plate Bone Nonsterile - [id number] Implanted:Qty: 1 on 08/14/2018 by Pradip Whalen MD at [facility] Right: Foot Orthohelix MXL-002-2A / / Orthohelix [id number] Maxtorque 5.5mm 50mm Cannulated Self Drill Foot Ankle Long Thread - [id number] Implanted:Qty: 1 on 08/14/2018 by Pradip Whalen MD at [facility] Right: Foot Orthohelix MSD-010-55- 050L / / Orthohelix [id number] Maxtorque 5.5mm 55mm Cannulated Self Drill Foot Ankle Long Thread - [id number] Implanted:Qty: 1 on 08/14/2018 by Pradip Whalen MD at [facility] Right: Foot Orthohelix MSD-010-55- 055L / / Orthohelix [id number] Maxtorque 7mm 70mm Cannulated Self Drill Foot Ankle Petite Thread - [id number] Implanted:Qty: 1 on 08/14/2018 by Pradip Whalen MD at [facility] Right: Foot Orthohelix MSD-010-70- 070P / / Orthohelix [id number] 4mm 26mm Nonlock Foot Ankle Screw Bone Nonsterile Maxlock Extreme - [id number] Implanted:Qty: 2 on 08/14/2018 by Pradip Whalen MD at [facility] Right: Foot Orthohelix TUFTING CREELER-011-402 6 / / Orthohelix [id number] Maxlock Extreme 4mm 28mm Nonlock Foot Ankle Screw Bone Nonsterile Latex Free - [id number] Implanted:Qty: 1 on 08/14/2018 by Pradip Whalen MD at [facility] Right: Foot Orthohelix TUFTING CREELER-011-402 8 / / Orthohelix [id number] Maxlock Extreme 4mm 24mm Nonlock Foot Ankle Screw Bone Nonsterile - [id number] Implanted:Qty: 1 on 08/14/2018 by Pradip Whalen MD at [facility] Right: Foot Orthohelix TUFTING CREELER-011-40- 24 / / Explanted Type Area Cigarette Carton Sealer Device Identifier Shelf Expiration Date Model / Serial / Lot Orthohelix Launch Engineer-040 Gary Wire Fixation Nonsterile Latex Free - [id number] Explanted:Qty: 2 on 08/14/2018 at [facility] Right: Foot Orthohelix TUFTING CREELER-040 / / Procedures Procedure Name Priority Date/Time Associated Diagnosis Comments DEXA AXIAL SKELETON BONE DENSITY 1 OR MORE SITES Schedule Routine, Read Routine (OP Routine) 04/02/2024 11:04 AM HEDIS REVIEW NURSE Rheumatoid arthritis involving multiple sites with positive rheumatoid factor (CMS/HCC) (HCC) COMPREHENSIVE METABOLIC PANEL (OUTREACH) Routine 03/26/2024 1:16 PM HEDIS REVIEW NURSE LTBI (latent tuberculosis infection) CBC WITH AUTO DIFFERENTIAL Routine 03/26/2024 1:15 PM HEDIS REVIEW NURSE LTBI (latent tuberculosis infection) EGFR Routine 03/14/2024 9:09 AM HEDIS REVIEW NURSE LTBI (latent tuberculosis infection) DIFFERENTIAL AUTO Routine 03/14/2024 9:0 9 AM HEDIS REVIEW NURSE LTBI (latent tuberculosis infection) GLUCOSE, RANDOM (OUTREACH) Routine 03/14/2024 9:09 AM HEDIS REVIEW NURSE LTBI (latent tuberculosis infection) COMPREHENSIVE METABOLIC PANEL WITHOUT GLUCOSE (OUTREACH) Routine 03/14/2024 9:09 AM HEDIS REVIEW NURSE LTBI (latent tuberculosis infection) CBC WITH AUTO DIFFERENTIAL Routine 03/14/2024 9:09 AM HEDIS REVIEW NURSE LTBI (latent tuberculosis infection) COMPREHENSIVE METABOLIC PANEL (OUTREACH) Routine 03/14/2024 9:09 AM HEDIS REVIEW NURSE LTBI (latent tuberculosis infection) POCT HEMOGLOBIN A1C Routine 10/24/2023 2 :56 PM CDT Type 2 diabetes mellitus with hyperglycemia, with long-term current use of insulin (HCC) HEPATITIS PANEL, ACUTE Routine 07/03/2023 10:42 AM CDT High risk medication use LIPID PANEL Routine 03/09/2023 9:07 AM HEDIS REVIEW NURSE Type 2 diabetes mellitus with hyperglycemia, with long-term current use of insulin (CMS/[facility]) (HCC) Hyperlipidemia associated with type 2 diabetes mellitus (HCC) ALBUMIN CREATININE RATIO, URINE Routine 03/09/2023 9:07 AM HEDIS REVIEW NURSE Type 2 diabetes mellitus with hyperglycemia, with long-term current use of insulin (CMS/HCC) (HCC) HM DIABETES EYE EXAM Routine 03/06/2023 10:54 AM HEDIS REVIEW NURSE from Last 3 Months or Most Recently Relevant to Health Maintenance Results * Dexa Axial Skeleton Bone Density 1 or 2 Site (04/02/2024 11:04 AM HEDIS REVIEW NURSE) Anatomical Region Laterality Modality Body N/A Radiographic Sheron ging Narrative 04/02/2024 2:27 PM HEDIS REVIEW NURSE Patient Name: Aleyda Dobbs Date of : 1950 Date of scan: 04/02/2024 Bone mineral density was performed on a HoloComActivity Discovery Densitometer. Based on machine cross-calibration and precision studies the least significant changes of this densitometer is 0.024 g/cm2 at the spine, 0.020 g/cm2 at the total proximal femur, and 0.014g/cm2 at the forearm. HISTORY: This is a 73 y.o. postmenopausal female with a history of asthma, low bone mass, lupus, rheumatoid arthritis, thyroid disease, and vitamin D deficiency. She reports that she quit smoking about 27 years ago. Her smoking use included cigarettes. She started smoking about 46 years ago. She has a 19 pack-year smoking history. She has never been exposed to tobacco smoke. She has never used smokeless tobacco. Currently on treatment with calcium, vitamin D, anticoagulants, thyroid hormone, and diuretics, previously treated with glucocorticoids, and current complaint of arm pain, back pain, and leg pain. INDICATIONS: Menopause status, history of glucocorticoids use, vitamin D deficiency, and history of low bone mass. FINDINGS: BONE MINERAL DENSITY OF THE LUMBAR SPINE Bone Mineral Density (BMD) of the lumbar spine was measured from L1-L4 and the average density was calculated to be 1.206 gm/cm2. This corresponds to a T-score (standard deviations from the mean of young adults) of 1.4. When compared to the previous study of 09/23/2021 there has been a 0.042 gm/cm (3.6%) increase in bone density that is considered significant. BONE MINERAL DENSITY OF THE PROXIMAL FEMUR Bone Mineral Density (BMD) of the left hip total was found to be 0.929 gm/cm2. This corresponds to a T-score standard deviations from the mean of young adults of -0.1. Femoral neck is 0.642 gm/cm2 with a T-score (standard deviations from the mean of young adults) of -1.9. When compared to the previous study of 09/23/2021 there has been a -0.022 gm/cm (-2.3%) decrease in bone density that is considered significant. SUMMARY: Bone mineral density shows evidence of low bone mass at the proximal femur and moderately increased fracture risk (Osteopenia). There is a significant increase noted in the spine and a significant decrease noted in the hip since the previous exam. ADDITIONAL COMMENTS: Postmenopausal Women and Men Over 50: Diagnostic criteria: Osteoporosis: BMD at or below -2.5 T-score; Osteopenia (low bone mass): BMD between -1.0 and -2.5 T-score. If the patient has a history of a fragility fracture, a fracture that occurred with trauma equivalent to a fall from a standing position or less, then the diagnosis is osteoporosis regardless of bone density. The history and data sections of the bone mineral density scan were prepared by Agnes Cortez(Bhavana)(M)(BD) [facility] who is accredited by the International Society of Clinical Densitometry. The overall patient assessment and scan interpretation were performed by Chacho Sanon M.D. who is certified by the International Society of Clinical Densitometry. [id number] Shawanda De La Cruz NP [facility] [place] Final R esult * (ABNORMAL) Comprehensive metabolic panel (Outreach) (03/26/2024 1:16 PM HEDIS REVIEW NURSE) [facility] Glucose 173(H) 65 - 99 mg/dL [facility] Comment: For someone without known diabetes, a glucose value >125 mg/dL indicates that they may have diabetes and this should be confirmed with a follow-up test. Fasting reference interval BUN 37(H) 7 - 25 mg/dL [facility] Creatinine 1.39(H) 0.60 - 1.00 mg/dL [facility] eGFR 41(L) > OR = 60 mL/min/1.7 3m2 [facility] BUN/creat ratio 27(H) 6 - 22 (calc) [facility] Sodium 138 135 - 146 mmol/L [facility] Potassium 4.1 3.4 - 4.8 mmol/L [facility] Chloride 107 98 - 110 mmol/L [facility] CO2 25 20 - 32 mmol/L [facility] Calcium 9.0 8.6 - 10.4 mg/dL [facility] Protein, Total 7.1 6.4 - 8.4 g/dL [facility] Albumin 3.4(L) 3.6 - 5.1 g/dL [facility] Globulin 3.7 2.2 - 4.0 g/dL (calc) [facility] Alb/glob ratio 0.9 0.9 - 2.3 (calc) [facility] Bilirubin, total 0.4 0.2 - 1.2 mg/dL [facility] Alk phos 108 37 - 153 U/L [facility] AST 41(H) 10 - 35 U/L [facility] ALT (SGPT) 27 6 - 29 U/L [facility] Blood 03/26/2024 1:16 PM HEDIS REVIEW NURSE 03/26/2024 1:17 PM HEDIS REVIEW NURSE us Ana Laura Ramires IN FILE OPERATOR LAB BLOOD ORDERABLES Valery rivera Result [facility] [address] [place] [address] * (ABNORMAL) CBC with auto differential (03/26/2024 1:15 PM HEDIS REVIEW NURSE) WBC 4.5 3.8 - 10.8 Thousand/u L [facility] RBC, POC 3.35(L) 3.80 - 5.10 Million/uL [facility] Hgb 8.9(L) 11.7 - 15.5 g/dL [facility] Hct 30.1(L) 35.0 - 45.0 % [facility] MCV 89.9 80.0 - 100.0 fL [facility] MCH 26.6(L) 27.0 - 33.0 pg [facility] MCHC 29.6(L) 32.0 - 36.0 g/dL [facility] Comment: For adults, a slight decrease in the calculated MCHC value (in the range of 30 to 32 g/dL) is most likely not clinically significant; however, it should be interpreted with caution in correlation with other red cell parameters and the patient's clinical condition. Rdw 16.2(H) 11.0 - 15.0 % [facility] Platelets 144 140 - 400 Thousand/u L [facility] MPV 12.2 7.5 - 12.5 fL [facility] Neutrophils, abs 2,435 1,500 - 7,800 cells/uL [facility] Lymphocytes, abs 1,499 850 - 3,900 cells/uL [facility] Monocyte abs 360 200 - 950 cells/uL [facility] Eosinophils, abs 189 15 - 500 cells/uL [facility] Basophils, abs 18 0 - 200 cells/uL [facility] Neutrophils 54.1 % [facility] Lymphocyte pct 33.3 % [facility] Monocytes 8.0 % [facility] Eosinophils 4.2 % [facility] Basophils 0.4 % [facility] Blood 03/26/2024 1:15 PM HEDIS REVIEW NURSE 03/26/2024 1:15 PM HEDIS REVIEW NURSE us Ana Laura Ramires IN FILE OPERATOR LAB BLOOD ORDERABLES Valery rivera Result [facility] [address] [place] [address] * Glucose, random (Outreach) (03/14/2024 9:09 AM HEDIS REVIEW NURSE) Glucose 137 70 - 199 mg/dL Comment: Interpretive Data Fasting glucose >/= 126 mg/dl is diagnostic for diabetes. Fasting is defined as no caloric intake for at least 8 hours. Fasting glucose between 100 mg/dl to 125 mg/dl is diagnostic of prediabetes. In a patient with classic symptoms of hyperglycemia or hyperglycemic crisis, a random glucose >/= 200 mg/dl is diagnostic for diabetes. In the absence of unequivocal hyperglycemia, results should be confirmed by repeat testing. The classification and Diagnosis of Diabetes Diabetes Care 2021; 46: S19-S40. Current interpretive data was last revised 2022. Blood 03/14/2024 9:09 AM HEDIS REVIEW NURSE 03/14/2024 1:24 PM HEDIS REVIEW NURSE us Ana Laura Ramires NP LAB BLOOD ORDERABLES Valery l Result [facility] Department [place] [address] * (ABNORMAL) eGFR (03/14/2024 9:09 AM HEDIS REVIEW NURSE) eGFR 38(L) >=60 mL/min/1. 73 m2 Comment: Interpretive Data Reference Interval Normal >/= 90 mL/min/1.73m2 Mildly decreased* 60 - 89 mL/min/1.73m2 Mildly to moderately decreased 45 - 59 mL/min/1.73m2 Moderately to severely decreased 30 - 44 mL/min/1.73m2 Severely decreased 15 - 29 mL/min/1.73m2 Kidney Failure < 15 mL/min/1.73m2 *Relative to young adult level Estimated glomerular filtration rate is determined by the 2020 CKD-EPI equation recommended by the National Kidney Foundation (A Unifying Approach to GFR Estimation: Recommendations of the NKF-ASK Task Force on Reassessing the Inclusion of Race in Diagnosing Kidney Disease, JASN 2020). The CKD-EPI equation should not be used for patients with unstable renal function and has not been validated in children and those over 70. Current interpretive data was last reviewed 2020. Blood 03/14/2024 9:09 AM HEDIS REVIEW NURSE 03/14/2024 1:30 PM HEDIS REVIEW NURSE us Ana Laura Ramires IN FILE OPERATOR LAB BLOOD ORDERABLES Valery rivera Result [facility] Department [place] [address] * Differential, auto (03/14/2024 9:09 AM HEDIS REVIEW NURSE) Neutrophil abs 3.8 1.5 - 6.5 K/cumm Imm gran abs 0.1 0.0 - 0.1 K/cumm [facility] Lymphocyte abs 2.2 0.8 - 3.3 K/cumm [facility] Monocyte abs 0.6 0.2 - 0.8 K/cumm [facility] Eosinophil abs 0.3 0.0 - 0.5 K/cumm [facility] Basophil abs 0.0 0.0 - 0.1 K/cumm [facility] Neutrophil pct 54.3 % [facility] Comment: Interpretive Data Percent cell count reference ranges are not reported, since discordance with absolute values may lead to misinterpretation of CBC data. Current Interpretive Data was last revised on 2017. Imm gran pct 0.9 % [facility] Comment: Interpretive Data Percent cell count reference ranges are not reported, since discordance with absolute values may lead to misinterpretation of CBC data. Current Interpretive Data was last revised on 2017. Lymphocyte pct 31.4 % [facility] Comment: Interpretive Data Percent cell count reference ranges are not reported, since discordance with absolute values may lead to misinterpretation of CBC data. Current Interpretive Data was last revised on 2017. Monocyte pct 8.0 % [facility] Comment: Interpretive Data Percent cell count reference ranges are not reported, since discordance with absolute values may lead to misinterpretation of CBC data. Current Interpretive Data was last revised on 2017. Eosinophil pct 4.8 % [facility] Comment: Interpretive Data Percent cell count reference ranges are not reported, since discordance with absolute values may lead to misinterpretation of CBC data. Current Interpretive Data was last revised on 2017. Basophil pct 0.6 % [facility] Comment: Interpretive Data Percent cell count reference ranges are not reported, since discordance with absolute values may lead to misinterpretation of CBC data. Current Interpretive Data was last revised on 2017. Blood 03/14/2024 9:09 AM HEDIS REVIEW NURSE 03/14/2024 1:24 PM HEDIS REVIEW NURSE us Ana Laura Ramires IN FILE OPERATOR LAB BLOOD ORDERABLES Valery l Result Performing Organization Address City/[facility]/ZIP Co de Phone Number [facility] Department [place] [address] * (ABNORMAL) Comprehensive metabolic panel, without glucose (Outreach) (03/14/2024 9:09 AM HEDIS REVIEW NURSE) Sodium 141 135 - 145 mmol/L Potassium, pl 4.6 3.3 - 4.9 mmol/L [facility] Chloride 102 97 - 110 mmol/L [facility] CO2 28 22 - 32 mmol/L [facility] Anion gap 11 2 - 15 mmol/L [facility] BUN 29(H) 6 - 25 mg/dL [facility] Creatinine 1.48(H) 0.60 - 1.10 mg/dL [facility] Calcium 9.0 8.5 - 10.3 mg/dL [facility] Protein, pl 7.8 6.5 - 8.5 g/dL [facility] Albumin 3.5 3.5 - 5.0 g/dL [facility] Bilirubin, total 0.2 0.1 - 1.2 mg/dL [facility] Alk phos 176(H) 40 - 130 Units/L [facility] AST 88(H) 10 - 45 Units/L [facility] ALT 92(H) 7 - 45 Units/L [facility] Blood 03/14/2024 9:09 AM HEDIS REVIEW NURSE 03/14/2024 1:24 PM HEDIS REVIEW NURSE us Ana Laura Ramires IN FILE OPERATOR LAB BLOOD ORDERABLES Valery l Result [facility] Department [place] [address] * (ABNORMAL) CBC with auto differential (03/14/2024 9:09 AM HEDIS REVIEW NURSE) Pathologist [facility] WBC 6.9 3.8 - 9.9 K/cumm Hgb 8.5(L) 11.9 - 15.5 g/dL [facility] Hct 28.8(L) 35.6 - 45.5 % [facility] Plt 181 150 - 400 K/cumm [facility] MPV 12.0 9.1 - 12.3 fL [facility] RBC 3.27(L) 3.90 - 5.20 M/cumm [facility] MCV 88.1 81.3 - 96.4 fL [facility] MCH 26.0(L) 27.1 - 33.3 pg [facility] MCHC 29.5(L) 32.3 - 35.7 g/dL [facility] RDW CV 17.1(H) 11.1 - 14.9 % [facility] RDW SD 54.5(H) 35.7 - 48.1 fL [facility] NRBC abs 0.00 0.00 - 0.01 K/cumm [facility] Blood 03/14/2024 9:09 AM HEDIS REVIEW NURSE 03/14/2024 1:24 PM HEDIS REVIEW NURSE us Ana Laura Ramires NP LAB BLOOD ORDERABLES Valery l Result [facility] Department [place] [address] * (ABNORMAL) POCT hemoglobin A1c (10/24/2023 2:56 PM CDT) [facility] Hemoglobin A1C, POC 8.0 4.0 - 5.6 % Blood 10/24/2023 2:56 PM CDT us Stacy Hernandez IN FILE OPERATOR POINT OF CARE TEST ORDERA BLES Final Result * Hepatitis panel, acute Blood (07/03/2023 10:42 AM CDT) Pathologist [facility] Hep A IgM Nonreactive Nonreactive Hep B core IgM Nonreactive Nonreactive [facility] Hep C Ab Nonreactive Nonreactive [facility] Comment:Antibodies to HCV no t detected. Does NOT exclude the possibility of recent exposure to HCV. Current interpretive data was last revised on 21 HepBsAg Nonreactive Nonreactive [facility] Blood 07/03/2023 10:4 2 AM CDT 07/03/2023 2:00 PM CDT Shawanda De La Cruz IN FILE OPERATOR LAB MICROBIOLOGY - GENERAL ORDERABLES Final Result Performing Organization Address City/[facility] Co de Phone Number [facility] Department [place] [address] * (ABNORMAL) Albumin Creatinine Ratio, Urine (03/09/2023 9:07 AM HEDIS REVIEW NURSE) Pathologist [facility] Albumin Ur 4,409.8 mg/L [facility] Comment: Interpretive Data No reference range established. Current interpretive data was last revised 2018. Creatinine Ur 116.5 mg/dL [facility] Comment: Interpretive Data No reference range established. Current interpretive data was last revised 2018. Albumin Creatinine Ratio, Ur 3,785(H) 1 - 29 mg/g [facility] Urine 03/09/2023 9:07 AM HEDIS REVIEW NURSE 03/09/2023 2:10 PM HEDIS REVIEW NURSE us Stacy Hernandez IN FILE OPERATOR LAB URINE ORDERABLES Valery l Result [facility] [address] Department [place] [address] * Lipid panel (03/09/2023 9:07 AM HEDIS REVIEW NURSE) Pathologist [facility] Cholesterol 119 30 - 199 mg/dL [facility] Comment: Interpretive Data Ages < or = 19 years Acceptable: <170 mg/dL Borderline high: 170-199 mg/dL High: >or= 200 mg/dL Ages > or = 20 years Desirable: <200 mg/dL Borderline high: 200-239 mg/dL High: >or= 240 mg/dL Literature References: 1. Expert Panel on Integrated Guidelines for Cardiovascular Health and Risk Reduction in Children and Adolescents. Pediatrics 2011;128:S213 2. NCEP Expert Panel. Circulation 2004;110:227 Current Interpretive Data was last revised on 2017. Triglycerides 104 <=149 mg/dL [facility] Comment: Interpretive Data Ages < or = 9 years Acceptable: <75 mg/dL Borderline high: 75-99 mg/dL High: >or= 100 mg/dL Ages 10 to 20 years Acceptable: <90 mg/dL Borderline high: 90-129 mg/dL High: >or= 130 mg/dL Ages > or = 20 years Desirable: <150 mg/dL Borderline high: 150-199 mg/dL High: 200-499 mg/dL Very high: >or= 499 mg/dL Literature References: 1. Expert Panel on Integrated Guidelines for Cardiovascular Health and Risk Reduction in Children and Adolescents. Pediatrics 2011;128:S213 2. NCEP Expert Panel. Circulation 2004;110:227 Current Interpretive Data was last revised on 2017. HDL 61 >=40 mg/dL [facility] Comment: Interpretive Data Ages < or = 19 years Acceptable: >45 mg/dL Borderline low: 40-45 mg/dL Low: <40 mg/dL Ages > or = 20 years Desirable: >or= 60 mg/dL Low: <40 mg/dL Literature References: 1. Expert Panel on Integrated Guidelines for Cardiovascular Health and Risk Reduction in Children and Adolescents. Pediatrics 2011;128:S213 2. NCEP Expert Panel. Circulation 2004;110:227 Current Interpretive Data was last revised on 2017. LDL, calculated 37 <=129 mg/dL [facility] Comment: Interpretive Data Ages < or = 19 years Acceptable: <110 mg/dL Borderline high: 110-129 mg/dL High: >or= 130 mg/dL Ages > or = 20 years Optimal: <100 mg/dL Near optimal: 100-129 mg/dL Borderline high: 130-159 mg/dL High: >160 mg/dL Literature References: 1. Expert Panel on Integrated Guidelines for Cardiovascular Health and Risk Reduction in Children and Adolescents. Pediatrics 2011;128:S213 2. NCEP Expert Panel. Circulation 2004;110:227 Current Interpretive Data was last revised on 2017. Non-HDL Cholesterol 58 mg/dL [facility] Comment: Interpretive Data Ages < or = 19 years Acceptable: <120 mg/dL Borderline high: 120-144 mg/dL High: >145 mg/dL Ages > or = 20 years When triglycerides are >200 mg/dL, Non-HDL cholesterol is a secondary target of therapy with treatment goals that are 30 mg/dL greater than the LDL cholesterol target. Literature References: 1. Expert Panel on Integrated Guidelines for Cardiovascular Health and Risk Reduction in Children and Adolescents. Pediatrics 2011;128:S213 2. NCEP Expert Panel. Circulation 2004;110:227 Current Interpretive Data was last revised on 2017. Chol/HDL ratio 2 [facility] Blood 03/09/2023 9:07 AM HEDIS REVIEW NURSE 03/09/2023 2:10 PM HEDIS REVIEW NURSE Stacy Hernandez NP LAB BLOOD ORDERABLES Valery rivera Result [facility] [address] Department of Laboratories [place] [id number] * (ABNORMAL) DIABETES EYE EXAM (03/06/2023 10:54 AM HEDIS REVIEW NURSE) Historical Provider HEALTH MAINTENANCE Final Result from Last 3 Months or Most Recently Relevant to Health Maintenance Insurance MEDICARE BLUE ACCESS OOS MEDICARE BLUE ACCESS OOS [employer] OPEN ACCESS MEDICARE [employer] OOS Member Subscriber Plan / Payer (Ef fective 2017-Present) Name:Aleyda Dobbs Marilin Relation to Subscriber:Spouse Name:Sharad Dobbs Date of :1947 (Home) Address: [address] [place] [address] Payer ID:[id number] (NAIC) Type: BENY Address: [address] [place] [id number] [employer] OPEN ACCESS Advance Directives For more information, please contact: [phone] * Full Code (Latest Code Status on File) Date Activated Date Inactivated Comments 07/20/2020 2:30 PM 07/21/2020 6:17 PM * Full Code Date Activated Date Inactivated Comments 08/14/2018 8:57 PM 08/15/2018 6:35 PM Care Teams Cartography/Mapping Technician Relationship Specialty Start Date End Date Charles Armendariz DO PCP - General 05/27/16 David Vanegas MD [address] [place] [address] Consulting Physician Cardiology 07/20/18
--- OUTSIDE RECORDS SUMMARY | 2024-04-04 15:19 | XMS_ITS | Encounter Summary ---
Author Organization [facility] Address [address] [place] [address] Phone Care Team Providers Care Human Resources Services Specialist Name Role Phone Bishop Starr MD Unavailable Charles Armendariz DO Primary Care Provider Reason for Visit * Reason Comments Medication Refill Encounter Details Date Type Department Care Team (Late st Contact Info) Description 06/28/2019 Refill [facility] [address] [place] [id number] Bishop Starr MD [address] [place] [address] Medication Refill Social History Tobacco Use Types Packs/Day Years Used Date Smoking Tobacco: Former Smokeless Tobacco: Never Alcohol Use Standard Drinks/Week Comments No 0 (1 standard drink = 0.6 oz pur e alcohol) Comments No Sex and Gender Information Value Date Recorded Sex Assigned at Not on file Legal Sex Female 11:47 PM CDT Gender Identity Not on file Sexual Orientation Not on file documented as of this encounter Plan of Treatment Not on file documented as of this encounter Visit Diagnoses Not on filedocumented in this encounter Care Teams Human Resources Services Specialist Relationship Specialty Start Date End Date Charles Armendariz DO [facility] [place] [address] PCP - General Internal Medicine 11/05/15 Bishop Starr MD Consulting Physician Pulmonary Disease 10/14/15 documented as of this encounter
--- OUTSIDE RECORDS SUMMARY | 2024-04-04 15:20 | XMS_ITS | Patient Health Summary ---
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 This disclosure is being madepursuant to the Care Everywhere program and may not contain all information available regarding this patient. Last updated 17.[facility] Allergies * Povidone Iodine(Rash) -Medium Criticality * Valsartan(Urticaria) -Medium Criticality * Vancomycin(Urticaria) -Medium Criticality Medications * Be aware that medications may not be up to date on this document. Alwaysverify current medications with the patient. * montelukast (SINGULAIR) 10 MG tablet Take 10 mg by mouth once daily * fluticasone propionate (FLONASE) 50 MCG/ACT nasal spray [place] 2 Sprays into each nostril once daily * metFORMIN (GLUCOPHAGE) 1000 MG tablet Take 1,000 mg by mouth 2 times daily with morning and evening meal * insulin lispro (HUMALOG) 100 UNIT/ML pen Inject 12 Units subcutaneously 3 times daily before meals Reasons: Type 2 Diabetes * insulin glargine (LANTUS) pen Inject 60 Units subcutaneously at bedtime * levothyroxine (SYNTHROID) 100 MCG tablet Take 100 mcg by mouth daily before breakfast * aspirin (ASPIRIN) 81 MG chew tablet Take 81 mg by mouth every evening * esomeprazole (NEXIUM) 20 MG capsule Take 22.3 mg by mouth daily before breakfast * vitamin D3 (CHOLECACIFEROL) 5000 UNITS Take 5,000 Units by mouth once daily * albuterol HFA (PROVENTIL;VENTOLIN;PROAIR) 108 (90 BASE) MCG/ACT inhaler Inhale 2 Puffs by mouth every 6 hours as needed * fish oil/omega-3 fatty acids (PROMEGA;CARDI-OMEGA 3) 1000 MG capsule Take 1,000 mg by mouth 2 times daily with morning and evening meal * hydroxychloroquine (PLAQUENIL) 200 MG tablet Take 200 mg by mouth 2 times daily * multivitamin daily (THERAGRAN) tablet Take 1 Tab by mouth daily with food * furosemide (LASIX) 20 MG tablet Take 20 mg by mouth once daily * DULoxetine (CYMBALTA) 30 MG capsule Take 30 mg by mouth once daily * metoprolol tartrate (LOPRESSOR) 25 MG tablet Take 25 mg by mouth once daily * atorvastatin (LIPITOR) 40 MG tablet Take 40 mg by mouth at bedtime * gabapentin (NEURONTIN) 600 MG tablet Take 600 mg by mouth 3 times daily * methotrexate 2.5 MG tablet(Started 02/28/2017) Take 4 tablets by mouth Active Problems No known active problems Immunizations * INFLUENZA VACCINE, QUADR. 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 161.3 cm (5' 3.5 ) 05/05/2017 6:48 AM [employer]INTING PLATE [employer] Body Mass Index 40.63 05/05/2017 6:48 AM [employer]INTING PLATE [employer] Procedures * BREATH HYDROGEN/METHANE TEST(Performed 05/05/2017) Performed for Abdominal pain, unspecified abdominal location, Bloating, Diarrhea, unspecified type * CARDIAC RHYTHM STRIP ORDER(Performed 06/03/2015) * GLUCOSE - POINT OF CARE(Performed 06/01/2015) * NM MYOCARD PERF REST STRESS(Performed 06/01/2015) Performed for Diabetic foot infection (HCC), Sepsis, due to unspecified organism * STRESS TEST LEXISCAN (NUCLEAR)(Performed 06/01/2015) Performed for Diabetic foot infection (HCC), Sepsis, due to unspecified organism * GLUCOSE - POINT OF CARE(Performed 05/31/2015) * GLUCOSE - POINT OF CARE(Performed 05/31/2015) * GLUCOSE - POINT OF CARE(Performed 05/31/2015) * GLUCOSE - POINT OF CARE(Performed 05/31/2015) * TSH(Performed 05/31/2015) * MAGNESIUM BLOOD(Performed 05/31/2015) * BASIC METABOLIC PANEL (CALCIUM TOTAL)(Performed 05/31/2015) * TROPONIN I(Performed 05/30/2015) * GLUCOSE - POINT OF CARE(Performed 05/30/2015) * TROPONIN I(Performed 05/30/2015) * GLUCOSE - POINT OF CARE(Performed 05/30/2015) * EKG 12-LEAD(Performed 05/30/2015) Performed for Diabetic foot infection (HCC), Sepsis, due to unspecified organism * TROPONIN I(Performed 05/30/2015) * GLUCOSE - POINT OF CARE(Performed 05/30/2015) * GLUCOSE - POINT OF CARE(Performed 05/30/2015) * CREATININE BLOOD(Performed 05/30/2015) * GLUCOSE - POINT OF CARE(Performed 05/29/2015) * GLUCOSE - POINT OF CARE(Performed 05/29/2015) * ECHOCARDIOGRAM 2D WITH DOPPLER(Performed 05/29/2015) Performed for Sepsis, due to unspecified organism * XR CHEST POST PROCEDURE(Performed 05/29/2015) Performed for Diabetic foot infection (HCC) * GLUCOSE - POINT OF CARE(Performed 05/29/2015) * GLUCOSE - POINT OF CARE(Performed 05/29/2015) * GLUCOSE - POINT OF CARE(Performed 05/29/2015) * CBC W AUTO DIFFERENTIAL(Performed 05/29/2015) * NT-PRO BNP(Performed 05/29/2015) * GLUCOSE - POINT OF CARE(Performed 05/28/2015) * GLUCOSE - POINT OF CARE(Performed 05/28/2015) * XR CHEST 2VW(Performed 05/28/2015) Performed for Sepsis, due to unspecified organism * GLUCOSE - POINT OF CARE(Performed 05/28/2015) * GLUCOSE - POINT OF CARE(Performed 05/28/2015) * VANCOMYCIN LEVEL TROUGH(Performed 05/28/2015) * HGB HCT PANEL(Performed 05/28/2015) * GLUCOSE - POINT OF CARE(Performed 05/28/2015) * GLUCOSE - POINT OF CARE(Performed 05/27/2015) * GLUCOSE - POINT OF CARE(Performed 05/27/2015) * GLUCOSE - POINT OF CARE(Performed 05/27/2015) * GLUCOSE - POINT OF CARE(Performed 05/27/2015) * GLUCOSE - POINT OF CARE(Performed 05/27/2015) * URINE MICROSCOPIC ONLY REFLEX TO CULTURE(Performed 05/27/2015) Performed for Diabetic foot infection (HCC), Sepsis, due to unspecified organism * URINALYSIS REFLEX MICROSCOPIC REFLEX CULTURE(Performed 05/27/2015) Performed for Diabetic foot infection (HCC), Sepsis, due to unspecified organism * CULTURE URINE(Performed 05/27/2015) Performed for Diabetic foot infection (HCC), Sepsis, due to unspecified organism * HEMOGLOBIN A1C(Performed 05/27/2015) * CBC W AUTO DIFFERENTIAL(Performed 05/27/2015) * BASIC METABOLIC PANEL (CALCIUM TOTAL)(Performed 05/27/2015) * ERYTHROCYTE SEDIMENTATION RATE(Performed 05/27/2015) * C-REACTIVE PROTEIN(Performed 05/27/2015) * GLUCOSE - POINT OF CARE(Performed 05/26/2015) * GLUCOSE - POINT OF CARE(Performed 05/26/2015) * CULTURE BLOOD(Performed 05/26/2015) * CULTURE BLOOD(Performed 05/26/2015) * XR FOOT LEFT 3VW OR MORE(Performed 05/26/2015) * GLUCOSE - POINT OF CARE(Performed 05/26/2015) * CULTURE WOUND+GRAM STAIN(Performed 05/26/2015) * URINE MICROSCOPIC ONLY(Performed 05/26/2015) * URINALYSIS REFLEX TO MICROSCOPIC NO CULTURE(Performed 05/26/2015) * COMPREHENSIVE METABOLIC PANEL(Performed 05/26/2015) * CBC W AUTO DIFFERENTIAL(Performed 05/26/2015) * CULTURE URINE(Performed 07/19/2013) * CARDIAC PROCEDURE ORDER(Performed 01/02/2009) Results * CARDIAC RHYTHM STRIP ORDER (06/03/2015 9:11 PM CDT) Narrative 06/03/2015 9:11 PM CDT Ordered by an unspecified provider. Scanned Document CARDIAC SERVICES ORD ERABLES * (ABNORMAL) GLUCOSE - POINT OF CARE (06/01/2015 10:14 AM CDT) Only the most recent of27 resultswithin the time period is included. Glucose WB/POC 184(H) 70 - 106 mg/dL 06/01/2015 12:20 PM CDT [facility] Blood BLOOD SPECIMEN / Unknown 06/01/2015 10:14 AM CDT 06/01/2015 12:20 PM CDT Jasiel Martin MD LAB - POINT OF CARE ORDERABLES [facility] [address] [place] [address] * NM MYOCARD PERFUSION SPECT STRESS AND REST (06/01/2015 9:51 AM CDT) Anatomical Region Laterality Modality Chest Nuclear Medicine 06/01/2015 9:53 AM CDT Impressions 06/01/2015 10:03 AM CDT Normal myocardial perfusion scan. Narrative 06/01/2015 10:03 AM CDT Dual isotope radionuclide gated SPECT myocardial perfusion scan Indication: Chest pain Radiopharmaceutical: Tc 99m Tetrofosmin 30 mCi IV administered at stress. Technetium 99m Tetrofosmin 10 mCi IV administered at rest. Findings: Stress portion of the exam was monitored by the cardiology service. 0.4 mg of Lexiscan was administered. There are no stress induced or fixed perfusion defects. The left ventricular ejection fraction is normal at 71%. There are no wall motion abnormalities. Procedure Note Lilly Smiley MD - 06/01/2015 Dual isotope radionuclide gated SPECT myocardial perfusion scan Indication: Chest pain Radiopharmaceutical: Tc 99m Tetrofosmin 30 mCi IV administered at stress. Technetium 99m Tetrofosmin 10 mCi IV administered at rest. Findings: Stress portion of the exam was monitored by the cardiology service. 0.4 mg of Lexiscan was administered. There are no stress induced or fixed perfusion defects. The left ventricular ejection fraction is normal at 71%. There are no wall motion abnormalities. IMPRESSION Normal myocardial perfusion scan. Bishop Umana MD NM ORDERABLES * STRESS TEST LEXISCAN (NUCLEAR) (06/01/2015 8:37 AM CDT) Pathologist [facility] Stress Test Summary For full formatted report, please see the report link in the order. Acquisition Time: 2015-06-01 08:37:20 Total Exercise Time: 00:01:18 Test Indications: Dyspnea Medications: Protocol: LEXISCAN Max HR: 096 BPM 60% of Pred: 158 BPM Max BP: 161/080 mmHG Max Work Load: 1.0 METS Reason for Termination: Protocol Complete Resting ECG: Probably Normal Functional Capacity: unable to assess HR Response to Exercise: BP Resoonse to Exercise: Chest Pain: No Chest Pain Arrhythmias: No Arrhythmias ST Changes: no significant st change Overall Impression: No ECG evidence of ischemia Findings to be correlated w/imaging report Diagnosis: Confirmed by NICOLE ESCALANTE MD ([id number]) on 06/01/2015 10:01:04 AM Attending Physician: Referred By: Overread By: NICOLE ESCALANTE MD [facility] STR[facility] 06/01/2015 8:37 AM CDT 06/01/2015 10:01 AM CDT Bishop Umana MD CARDIAC SERVICES ORD ERABLES [facility] * (ABNORMAL) BASIC METABOLIC PANEL (CALCIUM TOTAL) (05/31/2015 6:02 AM CDT) Only the most recent of2 resultswithin the time period is included. Glucose 144(H) 74 - 106 mg/dL 05/31/2015 6:35 AM CDT [facility] Sodium 140 136 - 145 mmol/L 05/31/2015 6:35 AM CDT [facility] Potassium 3.6 3.5 - 5.1 mmol/L 05/31/2015 6:35 AM CDT [facility] Chloride 106 98 - 107 mmol/L 05/31/2015 6:35 AM CDT [facility] CO2 28 22 - 31 mmol/L 05/31/2015 6:35 AM CDT [facility] Calcium 8.2(L) 8.5 - 10.1 mg/dL 05/31/2015 6:35 AM CDT [facility] Anion Gap 6 5 - 20 mmol/L 05/31/2015 6:35 AM CDT [facility] BUN 17 7 - 21 mg/dL 05/31/2015 6:35 AM CDT [facility] Creatinine 0.92 0.50 - 1.30 mg/dL 05/31/2015 6:35 AM CDT [facility] eGFR by MDRD >60 >60 mL/min/1.7 3m2 05/31/2015 6:35 AM CDT [facility] eGFR by MDRD >60 >60 mL/min/1.7 3m2 05/31/2015 6:35 AM CDT [facility] Blood BLOOD SPECIMEN / Unknown 05/31/2015 6:02 AM CDT 05/31/2015 6:08 AM CDT Bishop Umana MD LAB - CHEMISTRY ORDKrishan CONTRERAS Performing Organization Address City/[facility]/ZIP Co de Phone Number [facility] [address] [place] [address] * MAGNESIUM BLOOD (05/31/2015 6:02 AM CDT) Magnesium 1.6 1.6 - 2.6 mg/dL 05/31/2015 6:35 AM CDT [facility] Blood BLOOD SPECIMEN / Unknown 05/31/2015 6:02 AM CDT 05/31/2015 6:08 AM CDT Bishop Umana MD LAB - CHEMISTRY LB CONTRERAS [facility] [address] [place] [address] * (ABNORMAL) TSH (05/31/2015 6:02 AM CDT) [facility] TSH 4.82(H) 0.358 - 3.740 uIU/mL 05/31/2015 6:48 AM CDT [facility] Blood BLOOD SPECIMEN / Unknown 05/31/2015 6:02 AM CDT 05/31/2015 6:08 AM CDT Bishop Umana MD LAB - CHEMISTRY LB CONTRERAS Performing Organization Address [facility] Co de Phone Number [facility] [address] [place] [address] * TROPONIN I (05/30/2015 9:40 PM CDT) Only the most recent of3 resultswithin the time period is included. [facility] Troponin I <0.015 0.000 - 0.049 ng/mL 05/30/2015 10:24 PM CDT [facility] Blood SERUM OR PLASMA SPECIMEN / Unknown 05/30/2015 9:40 PM CDT 05/30/2015 10:01 PM CDT Narrative [facility] - 05/30/2015 10:24 PM CDT Note: Diagnosis of myocardial infarction requires symptoms of ischemia or EKG changes of ischemia and Troponin I >99th of normal (0.05 ng/mL). Troponin should be drawn on initial assessment and 3-6 hours later as clinically indicated. Any condition resulting in myocardial cell damage can increase cardiac troponin levels. In addition to myocardial infarction, these include but are not limited to congestive heart failure (CHF), arrhythmia, myocarditis, and non-cardiac related causes such as pulmonary embolism, renal failure and sepsis. Bishop Umana MD LAB - CHEMISTRY LB CONTRERAS Performing Organization Address City/[facility] Co de Phone Number [facility] [address] [place] [address] * EKG 12-LEAD (05/30/2015 5:01 PM CDT) Ventricular Rate 84 BPM [facility] Atrial Rate 84 BPM [facility] P-R Interval 150 ms [facility] QRS Duration ms 84 ms [facility] Q-T Interval ms 400 ms [facility] QTC Calculation (Bezet) 472 ms [facility] Calculated P [place] 69 degrees [facility] Calculated R [place] 57 degrees [facility] Calculated T [place] 43 degrees [facility] Interpretation EKG Normal sinus rhythm Normal ECG Confirmed by NICOLE ESCALANTE MD ([id number]) on 06/01/2015 8:51:01 AM [facility] 05/30/2015 5:01 PM CDT 06/01/2015 8:51 AM CDT Bishop Umana MD ECG ORDERABLES Performing Organization Address [facility] Co de Phone Number [facility] * (ABNORMAL) CREATININE BLOOD (05/30/2015 7:20 AM CDT) Pathologist [facility] Creatinine 0.96 0.50 - 1.30 mg/dL 05/30/2015 7:45 AM CDT [facility] eGFR by MDRD 59(L) >60 mL/min/1.7 3m2 05/30/2015 7:45 AM CDT [facility] eGFR by MDRD >60 >60 mL/min/1.7 3m2 05/30/2015 7:45 AM CDT [facility] Blood BLOOD SPECIMEN / Unknown 05/30/2015 7:20 AM CDT 05/30/2015 7:24 AM CDT Primo Story MD LAB - CHEMISTRY LB CONTRERAS Performing Organization Address City/[facility]/ZIP Co de Phone Number [facility] [address] [place] [address] * ECHOCARDIOGRAM 2D WITH DOPPLER (05/29/2015 2:04 PM CDT) 05/29/2015 2:04 PM CDT Narrative [facility] - 05/29/2015 9:22 PM [address]T [address] [id number] Transthoracic Echocardiogram 2D, M-mode, Doppler, and Color Doppler Patient: ALEYDA DOBBS MR number: [id number] Height: 63 in Weight: 238 lb BSA: 2.08 m Study date: 29-May-2015 : 1950 Age: 64 years Gender: Female Race: [place] Diagnoses: A41.9 - Sepsis, unspecified Reading Physician: Benjamin Espinosa MD Referring Physician: Jasiel Martin MD [facility] GUIDE: Tray Sharma. [facility] Cardiology Group: [facility] Summary: - Procedure information: - Room 546 at 14:04. - Left ventricle: - Systolic function was normal. Ejection fraction was estimated in the range of 55 % to 65 %. - There were no regional wall motion abnormalities. - Wall thickness was normal. - Doppler parameters were consistent with abnormal left ventricular relaxation (grade 1 diastolic dysfunction). - Left atrium: - The atrium was mildly dilated. History: Prior history: Risk factors: hypertension and medication-treated hypercholesterolemia. Diabetes. Procedure: The study was performed in the [facility]. This was a routine study. Room 546 at 14:04. The transthoracic approach was used. The study included complete 2D imaging, M-mode, complete spectral Doppler, and color Doppler. Systolic blood pressure was 144 mmHg. Diastolic blood pressure was 63 mmHg. Left ventricle: Size was normal. Systolic function was normal. Ejection fraction was estimated in the range of 55 % to 65 %. There were no regional wall motion abnormalities. Wall thickness was normal. Doppler: Doppler parameters were consistent with abnormal left ventricular relaxation (grade 1 diastolic dysfunction). Aortic valve: The valve was trileaflet. Leaflets exhibited normal thickness and normal cuspal separation. Doppler: Transaortic velocity was within the normal range. There was no stenosis. There was no regurgitation. Aorta: The root exhibited normal size. Mitral valve: Valve structure was normal. There was normal leaflet separation. Doppler: The transmitral velocity was within the normal range. There was no evidence for stenosis. There was no regurgitation. Left atrium: The atrium was mildly dilated. Right ventricle: The size was normal. Systolic function was normal. Wall thickness was normal. Right atrium: Size was normal. Pericardium: There was no pericardial effusion. The pericardium was normal in appearance. Prepared and signed by Benjamin Espinosa MD Signed 29-May-2015 21:22:25 Procedure Note Benjamin Espinosa MD - 05/29/[address] [phone] Transthoracic Echocardiogram 2D, M-mode, Doppler, and Color Doppler Patient: ALEYDA DOBBS MR number: [id number] Height: 63 in Weight: 238 lb BSA: 2.08 m Study date: 29-May-2015 : 1950 Age: 64 years Gender: Female Race: [place] Diagnoses: A41.9 - Sepsis, unspecified Reading Physician: Benjamin Espinosa MD Referring Physician: Jasiel Martin MD [facility] GUIDE: Tray Sharma. [facility] Cardiology Group: [facility] Summary: - Procedure information: - Room 546 at 14:04. - Left ventricle: - Systolic function was normal. Ejection fraction was estimated in the range of 55 % to 65 %. - There were no regional wall motion abnormalities. - Wall thickness was normal. - Doppler parameters were consistent with abnormal left ventricular relaxation (grade 1 diastolic dysfunction). - Left atrium: - The atrium was mildly dilated. History: Prior history: Risk factors: hypertension and medication-treated hypercholesterolemia. Diabetes. Procedure: The study was performed in the [facility]. This was a routine study. Room 546 at 14:04. The transthoracic approach was used. The study included complete 2D imaging, M-mode, complete spectral Doppler, and color Doppler. Systolic blood pressure was 144 mmHg. Diastolic blood pressure was 63 mmHg. Left ventricle: Size was normal. Systolic function was normal. Ejection fraction was estimated in the range of 55 % to 65 %. There were no regional wall motion abnormalities. Wall thickness was normal. Doppler: Doppler parameters were consistent with abnormal left ventricular relaxation (grade 1 diastolic dysfunction). Aortic valve: The valve was trileaflet. Leaflets exhibited normal thickness and normal cuspal separation. Doppler: Transaortic velocity was within the normal range. There was no stenosis. There was no regurgitation. Aorta: The root exhibited normal size. Mitral valve: Valve structure was normal. There was normal leaflet separation. Doppler: The transmitral velocity was within the normal range. There was no evidence for stenosis. There was no regurgitation. Left atrium: The atrium was mildly dilated. Right ventricle: The size was normal. Systolic function was normal. Wall thickness was normal. Right atrium: Size was normal. Pericardium: There was no pericardial effusion. The pericardium was normal in appearance. Prepared and signed by Benjamin Espinosa MD Signed 29-May-2015 21:22:25 Jasiel Martin MD ECHO ORDERABLES [facility] * XR CHEST FOR PICC PLMT (Place order AFTER PICC line is inserted) (05/29/2015 1:43 PM CDT) Anatomical Region Laterality Modality Radiographic Sheron ging 05/29/2015 2:20 PM CDT Impressions 05/29/2015 2:21 PM CDT PICC line terminates at the cavoatrial junction. This examination was transcribed using the [employer] voice recognition system without human linen checker. In an effort to expedite patient care, this report has not been adjusted for typographical, grammatical, and syntax by a trained medical staff specialist. Narrative 05/29/2015 2:21 PM CDT Chest x-ray for PICC line placement Indication: Central line aftercare Findings: Single view chest demonstrates PICC line from right upper extremity terminating at the cavoatrial junction. Lungs are clear. Cardiac size is stable. Procedure Note Bina Suero MD - 05/29/2015 Chest x-ray for PICC line placement Indication: Central line aftercare Findings: Single view chest demonstrates PICC line from right upper extremity terminating at the cavoatrial junction. Lungs are clear. Cardiac size is stable. IMPRESSION PICC line terminates at the cavoatrial junction. This examination was transcribed using the [employer] voice recognition system without human linen checker. In an effort to expedite patient care, this report has not been adjusted for typographical, grammatical, and syntax by a trained medical staff specialist. Harsha De La Cruz MD DIAGNOSTIC IMAGING O RDERABLES * (ABNORMAL) NT-PRO BNP (05/29/2015 5:45 AM CDT) NT-proBNP 564.0(H) <300.0 pg/mL 05/29/2015 6:30 AM CDT [facility] Blood BLOOD SPECIMEN / Unknown 05/29/2015 5:45 AM CDT 05/29/2015 5:59 AM CDT Narrative [facility] - 05/29/2015 6:30 AM CDT NT-proBNP Patient Age Acute HF Unlikely Acute HF Likely <50 years <300 pg/mL >450 pg/mL 50-75 years <300 pg/mL >900 pg/mL >75 years <300 pg/mL >1800 pg/mL Reference: JOSE Kline et al. ICON Study. Heart Journal (2006) 27, [phone] Both BNP and NT-proBNP derive from the precursor molecule called proBNP which is secreted from the ventricles in response to ventricle volume expansion and/or pressure overload. The secreted proBNP is subsequently cleaved by enzymes to form BNP, the active hormone and NT-proBNP an inactive metabolite. NT-proBNP has a longer half-life of 1.5-2.0 hours verses BNP with a half-life of 20 min for BNP. Both are useful biomarkers of ventricular distension due to increased intracardiac pressure. Both BNP and NT-proBNP increase with age and renal insufficiency. Increased concentrations of NT-proBNP have also been observed in the setting of acute myocardial infarction, right ventricular failure, valvular heart disease, and atrial fibrillation. Jasiel Martin MD [facility] Organization Address City/State/ZIP Co de Phone Number [facility] [address] [place] [address] * (ABNORMAL) CBC W AUTO DIFFERENTIAL (05/29/2015 5:45 AM CDT) Only the most recent of3 resultswithin the time period is included. WBC 7.2 4.4 - 10.7 x10E9/L 05/29/2015 6:09 AM CDT [facility] WBC Corrected x10E9/L 05/29/2015 6:09 AM CDT [facility] RBC 3.43(L) 3.80 - 5.20 x10E12/L 05/29/2015 6:09 AM CDT [facility] Hemoglobin 9.9(L) 12.0 - 15.6 gm/dL 05/29/2015 6:09 AM CDT [facility] Hematocrit 29.6(L) 35.9 - 45.5 % 05/29/2015 6:09 AM CDT [facility] MCV 86.3 80.7 - 98.3 fl 05/29/2015 6:09 AM CDT [facility] MCH 28.9 26.7 - 34.0 pg 05/29/2015 6:09 AM CDT [facility] MCHC 33.4 30.8 - 35.9 gm/dL 05/29/2015 6:09 AM CDT [facility] Platelet Count 223 153 - 416 x10E9/L 05/29/2015 6:09 AM CDT [facility] RDW-CV 13.8 12.1 - 14.9 % 05/29/2015 6:09 AM CDT [facility] MPV 11.4 9.4 - 12.9 fl 05/29/2015 6:09 AM CDT [facility] Neutrophils % 55.5 44.0 - 73.0 % 05/29/2015 6:09 AM CDT [facility] Lymphocytes % 30.0 20.0 - 43.0 % 05/29/2015 6:09 AM CDT [facility] Monocytes % 7.9 5.0 - 13.0 % 05/29/2015 6:09 AM CDT [facility] Eosinophils % 4.9 0.0 - 6.0 % 05/29/2015 6:09 AM CDT [facility] Basophils % 0.4 0.0 - 2.0 % 05/29/2015 6:09 AM CDT [facility] Immature Granulocytes 1.3(H) 0 - 1 % 05/29/2015 6:09 AM CDT [facility] Neutrophil Absolute 4.00 2.01 - 7.14 x10E9/L 05/29/2015 6:09 AM CDT [facility] Lymphocytes Absolute 2.16 1.07 - 3.94 x10E9/L 05/29/2015 6:09 AM CDT [facility] Monocytes Absolute 0.57 0.26 - 1.07 x10E9/L 05/29/2015 6:09 AM CDT [facility] Eosinophils Absolute 0.35 0 - 0.47 x10E9/L 05/29/2015 6:09 AM CDT [facility] Basophils Absolute 0.03 0 - 0.08 x10E9/L 05/29/2015 6:09 AM CDT [facility] Immature Granulocytes Absolute 0.09(H) 0.00 - 0.06 x10E9/L 05/29/2015 6:09 AM CDT [facility] nRBC Auto 0 /100 WBC 05/29/2015 6:09 AM CDT [facility] Blood BLOOD SPECIMEN / Unknown 05/29/2015 5:45 AM CDT 05/29/2015 5:59 AM CDT Perez Lambert DPM LAB - HEMATOL OGY ORDERABLES [facility] [address] [place] [address] * XR CHEST PA AND LATERAL (05/28/2015 5:00 PM CDT) Anatomical Region Laterality Modality Chest Radiographic Sheron ging 05/28/2015 5:04 PM CDT Narrative 05/28/2015 5:30 PM CDT CHEST TWO VIEWS History: Sepsis. Findings: No prior. Heart size is normal and the lungs are clear. No pneumothorax or pleural effusion is seen. Scattered calcified granulomas noted. Mild pulmonary vascular congestion is suggested. Edited by Alexus Smyth on 05/28/2015 5:07 PM Procedure Note Brent Metzger MD - 05/28/2015 CHEST TWO VIEWS History: Sepsis. Findings: No prior. Heart size is normal and the lungs are clear. No pneumothorax or pleural effusion is seen. Scattered calcified granulomas noted. Mild pulmonary vascular congestion is suggested. Edited by Alexus Smyth on 05/28/2015 5:07 PM Jasiel Martin MD DIAGNOSTIC IMAGING O RDERABLES * (ABNORMAL) HGB HCT PANEL (05/28/2015 4:24 AM CDT) Hemoglobin 9.4(L) 12.0 - 15.6 gm/dL 05/28/2015 5:31 AM CDT [facility] Hematocrit 28.3(L) 35.9 - 45.5 % 05/28/2015 5:31 AM CDT [facility] Blood BLOOD SPECIMEN / Unknown 05/28/2015 4:24 AM CDT 05/28/2015 5:25 AM CDT Jasiel Martin MD LAB - HEMATOLOGY ORD ERABLES Performing Organization Address [facility] Co de Phone Number [facility] [id number] [place] [address] * (ABNORMAL) VANCOMYCIN LEVEL TROUGH (05/28/2015 4:24 AM CDT) Vancomycin Trough 18.3(H) 5.0 - 15.0 ug/mL 05/28/2015 5:47 AM CDT [facility] Blood BLOOD SPECIMEN / Unknown 05/28/2015 4:24 AM CDT 05/28/2015 5:25 AM CDT Farooq Juarez MD LAB - CHEMISTRY O RDERABLES Performing Organization Address [facility] de Phone Number [facility] [address] [place] [address] * (ABNORMAL) URINALYSIS MICROSCOPIC ONLY W/REFLEX CULTURE (05/27/2015 6:53 AM CDT) Epithelial Cell UA 5-10(A) 0-2, 2-5 # /hpf 05/27/2015 7:26 AM CDT [facility] Hyaline Casts 0-2 0 - 2 # /lpf 05/27/2015 7:26 AM CDT [facility] Granular Casts 2-5(A) None Seen # /lpf 05/27/2015 7:26 AM CDT [facility] Urine URINE SPECIMEN OBTAINED BY CLEAN CATCH PROCEDURE / Unknown 05/27/2015 6:53 AM CDT 05/27/2015 6:59 AM CDT Lyssa Whyte PA-C LAB - URINALYSIS ORD ERABLES Performing Organization Address [facility] de Phone Number [facility] [address] [place] [address] * (ABNORMAL) URINALYSIS ROUTINE W/REFLEX TO CULTURE (05/27/2015 6:53 AM CDT) Color UA Yellow Straw, Yellow, Dark Yellow 05/27/2015 7:14 AM CDT [facility] Clarity UA Cloudy 05/27/2015 7:14 AM CDT [facility] Specific [place] UA 1.024 1.005 - 1.030 05/27/2015 7:14 AM CDT [facility] pH UA 5.5 5.0 - 8.0 pH 05/27/2015 7:14 AM CDT [facility] Protein UA 2+(A) Negative 05/27/2015 7:14 AM CDT [facility] Blood UA Negative Negative 05/27/2015 7:14 AM CDT [facility] Leukocyte UA Negative Negative 05/27/2015 7:14 AM CDT [facility] Nitrite UA Negative Negative 05/27/2015 7:14 AM CDT [facility] Glucose UA Negative Negative 05/27/2015 7:14 AM CDT [facility] Ketone UA Negative Negative 05/27/2015 7:14 AM CDT [facility] Bilirubin UA Negative Negative 05/27/2015 7:14 AM CDT [facility] Urobilinogen UA 1.0 0.1 - 1.0 EU/dL 05/27/2015 7:14 AM T [facility] WBC UA Auto 10-20(A) 0-2, 2-5 # /hpf 05/27/2015 7:14 AM CDT [facility] RBC UA Auto 2-5 0-2, 2-5 # /hpf 05/27/2015 7:14 AM CDT [facility] Bacteria UA Auto None seen None seen 05/27/2015 7:14 AM CDT [facility] Hyaline Casts UA Auto Reflex to manual(A) 0 - 2 #/lpf 05/27/2015 7:14 AM CDT [facility] Reflex Status Culture to follow 05/27/2015 7:14 AM T [facility] Urine URINE SPECIMEN OBTAINED BY CLEAN CATCH PROCEDURE / Unknown 05/27/2015 6:53 AM CDT 05/27/2015 6:59 AM CDT Lyssa Whyte PA-C LAB - URINALYSIS ORD ERABLES [facility] [address] [place] [address] * CULTURE URINE (05/27/2015 6:53 AM CDT) Only the most recent of2 resultswithin the time period is included. Culture No Growth (<1,000 CFU/mL) MAYELA 05/28/2015 11:[address] [facility] Urine URINE SPECIMEN OBTAINED BY CLEAN CATCH PROCEDURE / Unknown 05/27/2015 6:53 AM CDT 05/27/2015 6:59 AM CDT Lyssa Whyte PA-C LAB - MICROBIOLOGY O RDERABLES Performing Organization Address [facility] Co de Phone Number [facility] [address] [place] [address], [facility] [phone] * (ABNORMAL) HEMOGLOBIN A1C (05/27/2015 3:57 AM CDT) Hemoglobin A1c 8.2(H) 4.2 - 6.3 % 05/27/2015 8:07 AM CDT [facility] Estimated Average Glucose 189 mg/dL 05/27/2015 8:07 AM CDT [facility] Whole Blood BLOOD SPECIMEN WITH EDTA / Unknown 05/27/2015 3:57 AM CDT 05/27/2015 6:06 AM CDT Perez Lambert [facility] LAB - GENERAL PRODUCTION WORKER RY ORDERABLES Performing Organization Address [facility] Co de Phone Number [facility] [id number] [place] [address] * (ABNORMAL) C-REACTIVE PROTEIN (05/27/2015 3:55 AM CDT) C-Reactive Protein 15.00(H) <0.30 mg/dL 05/27/2015 6:25 AM CDT [facility] Blood BLOOD SPECIMEN / Unknown 05/27/2015 3:55 AM CDT 05/27/2015 6:06 AM CDT Perez Lambert [facility] LAB - GENERAL PRODUCTION WORKER RY ORDERABLES Performing Organization Address [facility] de Phone Number [facility] [address] [place] [address] * (ABNORMAL) SED RATE WESTERGREN (05/27/2015 3:55 AM CDT) Erythrocyte Sedimentation Rate Westergren >140(H) 0 - 30 mm/hr 05/27/2015 6:47 AM CDT [facility] Blood BLOOD SPECIMEN / Unknown 05/27/2015 3:55 AM CDT 05/27/2015 6:06 AM CDT Perez Lambert [facility] LAB - HEMATOL OGY ORDERABLES Performing Organization Address [facility] de Phone Number [facility] [address] [place] [address] * CULTURE BLOOD (05/26/2015 6:01 PM CDT) Only the most recent of2 resultswithin the time period is included. Pathologist [facility] Culture No Growth Day 5 MAYELA 05/31/2015 10:[address] [facility] Blood PERIPHERAL BLOOD / Unknown 05/26/2015 6:01 PM CDT 05/26/2015 6:49 PM CDT Farooq Juarez MD LAB - MICROBIOLOG Y ORDERABLES Performing Organization Address [facility] de Phone Number [facility] [address] [place] [address], [facility] [phone] * XR FOOT 3+ VW LEFT (05/26/2015 4:41 PM CDT) Anatomical Region Laterality Modality Ankle / Foot Radiographic Sheron ging 05/26/2015 4:47 PM CDT Narrative 05/26/2015 4:55 PM CDT 3 VIEWS LEFT FOOT Indication: Left foot pain Findings: There is no displaced fracture or dislocation. There is no osseous destruction. Diffuse osseous demineralization is present throughout the foot. There is a large cancellous screw traversing the first distal phalanx, the first interphalangeal joint and ending in the proximal aspect of the first proximal phalanx. There is postsurgical change with hyperdense implant involving the anterior process of calcaneus. Enthesopathic changes are present at the Achilles insertion and the plantar aponeurosis origin. Vascular calcifications are present throughout the foot and there are soft tissue swelling. Procedure Note Raphael Ochoa MD - 05/26/2015 3 VIEWS LEFT FOOT Indication: Left foot pain Findings: There is no displaced fracture or dislocation. There is no osseous destruction. Diffuse osseous demineralization is present throughout the foot. There is a large cancellous screw traversing the first distal phalanx, the first interphalangeal joint and ending in the proximal aspect of the first proximal phalanx. There is postsurgical change with hyperdense implant involving the anterior process of calcaneus. Enthesopathic changes are present at the Achilles insertion and the plantar aponeurosis origin. Vascular calcifications are present throughout the foot and there are soft tissue swelling. Perez Lambert [facility] DIAGNOSTIC IM AGING ORDERABLES * (ABNORMAL) CULTURE WOUND+GRAM STAIN (05/26/2015 3:58 PM CDT) Culture Heavy growth Staphylococcus aureus(A) MAYELA 05/29/2015 9:[address] [facility] Gram Stain Light Red blood cells 05/29/2015 9:[address] [facility] Gram Stain Light White blood cells 05/29/2015 9:[address] [facility] Gram Stain Light Gram positive cocci 05/29/2015 9:[address] [facility] Microbiology ENTIRE FOOT / Unknown 05/26/2015 3:58 PM CDT 05/26/2015 4:18 PM CDT Narrative Organism Antibiotic Method Susceptibility Staphylococcus aureus Ciprofloxacin MAYELA <=0.5 ug/mL: Susceptible Staphylococcus aureus Clindamycin MAYELA 0.25 ug/mL: Susceptible Staphylococcus aureus Doxycycline MAYELA <=0.5 ug/mL: Susceptible Staphylococcus aureus Erythromycin MAYELA <=0.25 ug/mL: Susceptible Staphylococcus aureus Gentamicin MAYELA <=0.5 ug/mL: Susceptible Staphylococcus aureus Inducible Clindamy candice Resistance MAYELA NEG ug/mL: - Staphylococcus aureus Levofloxacin MAYELA <=0.12 ug/mL: Susceptible Staphylococcus aureus Linezolid MAYELA 2 ug/mL: Susceptible Staphylococcus aureus Oxacillin MAYELA 0.5 ug/mL: Susceptible Staphylococcus aureus Tetracycline MAYELA <=1 ug/mL: Susceptible Staphylococcus aureus Trimethoprim-sulfa methoxa zole MAYELA <=10 ug/mL: Susceptible Staphylococcus aureus Vancomycin MAYELA 1 ug/mL: Susceptible Comment:Methicillin Suscepti ble Staphylococci are susceptible to oxacillin, nafcillin, cloxacillin,diclozacillin, flucloxacillin, beta lactam/betalactamase inhibitor combinations, cephalosporins including cefazolin and carbapenems. Perez Lambert [facility] LAB - MICROBI OLOGY ORDERABLES [facility] [address] [place] [address], [facility] [phone] * (ABNORMAL) URINALYSIS ROUTINE AUTO (05/26/2015 1:07 PM CDT) Color UA Yellow Straw, Yellow, Dark Yellow 05/26/2015 6:23 PM CDT [facility] Clarity UA Cloudy 05/26/2015 6:23 PM CDT [facility] Specific [place] UA 1.024 1.005 - 1.030 05/26/2015 6:23 PM CDT [facility] pH UA 5.5 5.0 - 8.0 pH 05/26/2015 6:23 PM CDT [facility] Protein UA 3+(A) Negative 05/26/2015 6:23 PM CDT [facility] Blood UA Trace(A) Negative 05/26/2015 6:23 PM CDT [facility] Leukocyte UA 1+(A) Negative 05/26/2015 6:23 PM CDT [facility] Nitrite UA Negative Negative 05/26/2015 6:23 PM CDT [facility] Glucose UA Negative Negative 05/26/2015 6:23 PM CDT [facility] Ketone UA Negative Negative 05/26/2015 6:23 PM CDT [facility] Bilirubin UA Negative Negative 05/26/2015 6:23 PM CDT [facility] Urobilinogen UA 1.0 0.1 - 1.0 EU/dL 05/26/2015 6:23 PM CDT [facility] WBC UA Auto 10-20(A) 0-2, 2-5 # /hpf 05/26/2015 6:23 PM CDT [facility] RBC UA Auto 2-5 0-2, 2-5 # /hpf 05/26/2015 6:23 PM CDT [facility] Bacteria UA Auto None seen None seen 05/26/2015 6:23 PM CDT [facility] Hyaline Casts UA Auto Reflex to manual(A) 0 - 2 #/lpf 05/26/2015 6:23 PM CDT [facility] Urine URINE SPECIMEN OBTAINED BY CLEAN CATCH PROCEDURE / Unknown 05/26/2015 1:07 PM CDT 05/26/2015 6:10 PM CDT Farooq Juarez MD LAB - URINALYSIS ORDERABLES Performing Organization Address [facility] Co de Phone Number [facility] [address] [place] [address] * (ABNORMAL) URINALYSIS MICROSCOPIC ONLY (05/26/2015 1:07 PM CDT) Epithelial Cell UA 5-10(A) 0-2, 2-5 # /hpf 05/26/2015 7:34 PM CDT [facility] Urine URINE SPECIMEN OBTAINED BY CLEAN CATCH PROCEDURE / Unknown 05/26/2015 1:07 PM CDT 05/26/2015 6:10 PM CDT Narrative [facility] - 05/26/2015 7:34 PM CDT No casts seen Farooq Juarez MD LAB - URINALYSIS ORDERABLES Performing Organization Address [facility] Co de Phone Number [facility] [address] [place] [address] * (ABNORMAL) COMPREHENSIVE METABOLIC PANEL (05/26/2015 1:06 PM CDT) Glucose 97 74 - 106 mg/dL 05/26/2015 1:43 PM CDT [facility] Sodium 139 136 - 145 mmol/L 05/26/2015 1:43 PM CDT [facility] Potassium 4.1 3.5 - 5.1 mmol/L 05/26/2015 1:43 PM CDT [facility] Chloride 103 98 - 107 mmol/L 05/26/2015 1:43 PM CDT [facility] CO2 29 22 - 31 mmol/L 05/26/2015 1:43 PM CDT [facility] Calcium 8.6 8.5 - 10.1 mg/dL 05/26/2015 1:43 PM CDT [facility] Anion Gap 7 5 - 20 mmol/L 05/26/2015 1:43 PM CDT [facility] BUN 18 7 - 21 mg/dL 05/26/2015 1:43 PM CDT [facility] Creatinine 0.79 0.50 - 1.30 mg/dL 05/26/2015 1:43 PM CDT [facility] Alkaline Phosphatase 74 38 - 126 U/L 05/26/2015 1:43 PM CDT [facility] ALT 27 12 - 78 U/L 05/26/2015 1:43 PM CDT [facility] AST 17 5 - 40 U/L 05/26/2015 1:43 PM CDT [facility] Protein Total 8.2 6.4 - 8.2 gm/dL 05/26/2015 1:43 PM CDT [facility] Albumin 3.0(L) 3.4 - 5.0 gm/dL 05/26/2015 1:43 PM CDT [facility] Bilirubin Total 0.4 0.2 - 1.0 mg/dL 05/26/2015 1:43 PM CDT [facility] eGFR by MDRD >60 >60 mL/min/1.7 3m2 05/26/2015 1:43 PM CDT [facility] eGFR by MDRD >60 >60 mL/min/1.7 3m2 05/26/2015 1:43 PM CDT [facility] Blood BLOOD SPECIMEN / Unknown 05/26/2015 1:06 PM CDT 05/26/2015 1:21 PM CDT Farooq Juarez MD LAB - CHEMISTRY O RDERABLES [facility] [address] [place] [address] * CARDIAC PROCEDURE ORDER (01/02/2009 2:52 PM PRINTING PLATE MAKER) Narrative 01/02/2009 2:52 PM PRINTING PLATE MAKER Ordered by an unspecified provider. Transcriptions Document, Scanned - 01/01/2009 12:00 AM PRINTING PLATE MAKER Scanned Document CARDIAC SERVICES ORD [facility] Care Teams Hand Router Operator Relationship Specialty Start Date End Date Charles Armendariz DO PCP - General 06/04/20 Tammy Arroyo, RN Bark Fitter 05/26/15
--- OUTSIDE RECORDS SUMMARY | 2024-04-04 15:20 | XMS_ITS | Encounter Summary ---
Author Organization [facility] Address [address] [place] [address] Phone Care Team Providers Care Archaeology Professor Name Role Phone Charles Armendariz DO Primary Care Provider [phone] David Vanegas MD Unavailable [phone] Encounter Details Date Type Department Care Team (Late st Contact Info) Description 04/04/2024 Telephone [facility] [address] [facility] 2nd [address] [place] [id number] Arnulfo Krishnamurthy Social History Tobacco Use Types Packs/Day Years Used Date Smoking Tobacco: Former Cigarettes 1 19 1 979 - 1997 Passive Smoke Exposure: Never Smokeless Tobacco: Never Alcohol Use Standard Drinks/Week Comments Yes 0 [...] on file Legal Sex Female 12:14 AM 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 HELPER Gender Identity Not on file Sexual Orientation Not on file documented as of this encounter Miscellaneous Notes * Telephone Encounter - Arnulfo Krishnamurthy - 04/04/2024 8:35 AM CST Called pt with Clair barton results LER HELPER documented in this encounter Plan of Treatment Not on file documented as of this encounter Visit Diagnoses Not on filedocumented in this encounter Care Teams Archaeology Professor Relationship Specialty Start Date End Date Charles Armendariz DO PCP - General 05/27/16 David Vanegas MD [address] [place] [address] Consulting Physician Cardiology 07/20/18 documented as of this encounter
--- OUTSIDE RECORDS SUMMARY | 2024-04-04 15:20 | XMS_ITS | Referral Summary ---
Author Organization [facility] Address [address] [facility] [place] [address] Care Team Providers Care Vocational Horticulture Instructor Name Role Phone Tammy Arroyo RN Unavailable [phone] Charles Armendariz DO Primary Care Provider [phone] Source Comments [facility],non-owned Affiliates and Associated Physician Practices is amultiple site organization consisting of ambulatory clinics and hospital sitesin [place], [place], [place] and [place]. This disclosure is being madepursuant to the Care Everywhere program and may not contain all information available regarding this patient. Last updated 17.[facility] Allergies Active Allergy Reactions Criticality Noted Date [...] fluticasone propionate (FLONASE) 50 MCG/ACT nasal spray [place] 2 Sprays into each nostril once daily [...] AFLURIA QUADRIVALENT; 6MO+), 0.5 ML (IIV4) 05/27/2015 Social History Tobacco Use Types Packs/Day Years [...] 105.7 kg (233 lb) 05/05/2017 6:48 AM BELLMAN CAPTAIN Height 161.3 cm (5' 3.5 ) 05/05/2017 6:48 AM BELLMAN CAPTAIN Body Mass Index 40.63 05/05/2017 6:48 AM BELLMAN CAPTAIN Functional Status Functional Status Response Date of Assess ment Is person deaf or have serious hearing difficult y? No 05/26/2015 Is person blind or have serious difficulty seein g? No 05/26/2015 Does person have serious dif ficulty walking/climbing stairs? Yes 05/26/2015 Does person have difficulty dressing/bathing? No 05/26/2015 Does person have difficulty doing errands alone? Yes 05/26/2015 Cognitive Status Response Date of Assessm ent Does person have difficulty concentrating/remembering/making decisions? No 05/26/2015 Plan of Treatment Not on file Advance Directives * Full Code (Latest Code Status on File) Date Activated Date Inactivated Comments 05/26/2015 11:04 PM 06/01/2015 6:08 PM * Full Code Date Activated Date Inactivated Comments 05/26/2015 7:39 PM 05/26/2015 11:04 PM Care Teams Vocational Horticulture Instructor Relationship Specialty Start Date End Date Charles Armendariz DO PCP - General 06/04/20 Tammy Arroyo, RN Asphalt Heater Operator 05/26/15
--- OUTSIDE RECORDS SUMMARY | 2024-04-04 15:20 | XMS_ITS | Encounter Summary ---
Author Organization [facility] Address 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 Gender Identity Not on file Sexual Orientation Not on file documented as of this encounter Plan of Treatment Upcoming Encounters Date Type Department Care Team (Late st Contact Info) Description 05/22/2024 9:45 AM CDT Office Visit [facility] Oncology and Hematology - [place] [address] [facility] [address] [place] [address] Ray Richards MD [address] [facility] [address] [place] [address] documented as of this encounter Visit Diagnoses Diagnosis Unspecified hearing loss documented in this encounter Care Teams Crystal Lapper Relationship Specialty Start Date End Date Charles Armendariz DO [address] [facility] [address] [place] [address] PCP - General Internal Medicine 11/04/22 documented as of this encounter
--- OUTSIDE RECORDS SUMMARY | 2024-04-04 15:20 | XMS_ITS | Encounter Summary ---
Author Organization [facility] Address [address] [place] [address] Phone Care Team Providers Care Cabin Crew Name Role Phone Charles Armendariz DO Primary Care Provider [phone] David Vanegas MD Unavailable [phone] Encounter Details Date Type Department Care Team (Late st Contact Info) Description 01/30/2023 Orders Only [facility] [phone] Scanning, Provider Social History Tobacco Use Types Packs/Day Years Used Date Smoking Tobacco: Former Cigarettes 1 19 1 979 - 1997 Smokeless Tobacco: Never Alcohol Use Standard Drinks/Week Comments Yes 0 (1 standard drink = 0.6 oz pur e alcohol) rare AUDIT-C Answer Date Recorded Q1: How often do you have a drink containing alc ohol? Never 07/20/2020 Average Number of Drinks Not on file 021 Q3: How often do you have si x or more drinks on one occasion? Never 07/20/2020 PHQ-2 Answer Date Recorded PHQ-2 Total Score (If total score is 3 or more points, staff should administer the PHQ-9) 0 05/13/2021 Comments No Sex and Gender Information Value Date Recorded Sex Assigned at Not on file Legal Sex Female 12:14 AM CORN SHREDDER Gender Identity Not on file Sexual Orientation Not on file documented as of this encounter Plan of Treatment Not on file documented as of this encounter Procedures Procedure Name Priority Date/Time Associated Diagnosis Comments SCAN - RADIOLOGY/IMAGING 01/30/2023 documented in this encounter Results * SCAN - RADIOLOGY/IMAGING (01/30/2023) Anatomical Region Laterality Modality Other us Provider Scanning Final Result documented in this encounter Visit Diagnoses Not on filedocumented in this encounter Care Teams Cabin Crew Relationship Specialty Start Date End Date Charles Armendariz DO PCP - General 05/27/16 David Vanegas MD [address] [place] [address] Consulting Physician Cardiology 07/20/18 documented as of this encounter
--- OUTSIDE RECORDS SUMMARY | 2024-04-04 15:20 | XMS_ITS | Encounter Summary ---
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 Gender Identity Not on file Sexual Orientation Not on file documented as of this encounter Plan of Treatment Not on file documented as of this encounter Procedures Procedure Name Priority Date/Time Associated Diagnosis Comments SCAN - LABS 08/19/2021 documented in this encounter Results * SCAN - LABS (08/19/2021) us Provider Scanning Final Result documented in this encounter Visit Diagnoses Not on filedocumented in this encounter Care Teams Tool Technician Relationship Specialty Start Date End Date Charles Armendariz DO PCP - General 05/27/16 David Vanegas MD [address] [place] [address] Consulting Physician Cardiology 07/20/18 documented as of this encounter
--- OUTSIDE RECORDS SUMMARY | 2024-04-04 15:20 | XMS_ITS | Data Portability ---
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 Cost Estimating Clerk variances may occur. Despite proofreading, typographical errors may occur. Occasional wrong-word or 'htlgb-q-hdhp' substitutions may have occurred due to the inherent limitations of voice recording. Read the chart carefully and recognize, using context, where substitutions have occurred. Not available 08/24/2023 13:23:11 10/23/2023 10/23/2023 This note is dictated and transcribed by [employer]. Cost Estimating Clerk variances may occur. Despite proofreading, typographical errors may occur. Occasional wrong-word or 'hbvpm-j-xyuu' substitutions may have occurred due to the inherent limitations of voice recording. Read the chart carefully and recognize, using context, where substitutions have occurred. Not available 10/23/2023 11:57:12 11/02/2023 11/02/2023 Assessment: Nicotine smoke: 1 ppd 0400-0485 = 18 pack years Dyspnea Mild OSAHS, AHI = 13 PLMD CKD with anemia Hypomagnesemia Plan: The following were reviewed and explained to the patient: [facility] home sleep study on 10/08/15, AHI = 13 [facility] titration sleep study on 09/07/16, sleep onset = 6.5 minutes, REM onset = 101.5 minutes, autoCPAP 5-15 cmH2O, PLMI = 7 PFT 11/01/23 nl FEV1/FVC, FEV1 1.83 L (89%), TLC 3.40 L (81%), RV 0.92 L (54%), DLCO 48%, DLCO/VA 90% ESR 09/06/23 122 mm/hr BUN 09/06/23 39 mg% Creatinine 09/06/23 1.47 mg% Hgb 09/06/23 9.6 gm% Hct 09/06/23 30.1% Magnesium 09/06/23 1.4 mg% Cough/Dyspnea workup will be done as follows: Respiratory allergen panel for [facility] Serum IgE Serum total IgG, IgG1, IgG2, IgG3, IgG4 Kpxee-2-corwgdrjq in phenotype and level TB stimulated gamma interferon B-type natriuretic peptide (BNP) Eosinophil count Methacholine challenge testing Continue Albuterol HFA as needed. The patient does not know how to accurately administer the inhaler. Today, the patient was shown how to take this medication. The proper technique for delivering this medication was instructed. The patient expressed a clear understanding and demonstrated back how to use this medication. Without the proper technique, the patient will not reap the benefits of the treatment as the contents of the inhaler will not reach the lower airways as intended to be. Adherence to therapy is advocated. Nonadherence may lead to treatment failure, further progression of the condition, and other complications. Hospitals admissions are often the result of individuals not taking prescription medications accurately. Elevation in periodic limb movement index may be contributed by duloxetine. Non-pharmacologic therapy options for periodic limb movement disorder include avoidance of aggravating drugs and substances, mental alerting activities, short daily hemodialysis for patients in renal failure, exercise, leg massage, stretching calf muscles, use of a weighted blanket and applied heat. Patient will cut down on caffeine intake. Vitamin E, Vitamin B12, RBC folate, Iron, TIBC, Ferritin are within normal limits. Patient will get a nephrology referral from her PCP. Patient will take Mg Oxide 400 mg daily to keep Mg > 1.6 mg%. We will hold off on dopaminergic therapy for now. We will try to obtain [facility] sleep study 2023. Patient will bring KOKI unit to [facility] for repair. PAP compliance downloaded and interpreted x 20 minutes. Data reviewed and explained to the patient. Average apnea/hypopnea index (AHI) is 1.4. Patient used PAP > 4 hours 89% of the time. PAP is set at 12 cmH2O. PAP will remain at 12 cmH2O. Keep ramp off. Keep humidifier at level 4. Keep EPR +2 multimedia technician. Oxygen supplementation: none Patient is benefiting from PAP therapy. Encouraged patient to maintain PAP use more than 70% of the time. Statement of PAP use and benefits will be sent to the home care store. Educated the patient on problems and solutions associated with positive airway pressure (PAP) use. Difficulty tolerating pressure, mask leaks, intolerance of interface, nasal congestion, claustrophobic response, dry mouth, and unintentional mask removal during sleep were covered. Provided the patient with a list of local home care stores where positive airway pressure (PAP) units, accoutrement, and services are available. Home care store selection is based on patient's insurance carrier. Patient will setup an appointment with [facility] for supplies and pressure adjustments. A major predictor of success with use of PAP is follow-up with both the respiratory supplier and the treating physician. The download results can show the treating physician information about adherence to treatment, residual AHI while on treatment and presence of large mask leakage. This information is especially helpful if the patient has residual sleepiness despite treatment. General information on sleep disordered breathing, evaluation of sleep disordered breathing, treatment with PAP therapy, and living with PAP therapy were covered. We discussed with the patient the impact of weight on: Sleep disordered breathing Hyperlipidemia Hypertension DM STEPHANIE Urge urinary incontinence CKD Low back pain Gout OA We discussed with the patient the benefit of PAP therapy on: Sleep disordered breathing Anxiety/Depressio n Rhinitis Hypertension DM STEPHANIE Urge urinary incontinence Educated the patient on sleep hygiene measures. Relaxing rituals to rest easy, understanding foods with positive and negative impact on sleep, creating a peaceful sleep environment, timing of exercise, using herbal sleep aids, and practicing sleep-friendly meditation were covered. To determine how much sleep is needed, the patient will assess where she falls on the spectrum, examine what lifestyle factors such as work schedules and stress are affecting the quality and quantity of sleep. In general, adults need 7-9 hours of sleep. Educated the patient regarding foods that promote sleep. These include but are not limited to cherries, bananas, toast, oatmeal, and warm milk. Educated the patient regarding foods and drinks to avoid before bedtime. These include but are not limited to aged cheese, chocolate, spicy foods, tomato-based sauces, soy, ginseng tea and processed meat. Advocated influenza vaccination annually and pneumonia vaccination EARNESTINE. Advocated weight loss through diet and exercise. Patient's ideal body weight according to height and gender is up to 125 lbs. Encouraged patient to adjust caloric intake to maintain/achieve ideal body weight, emphasizing on fruits, vegetables, whole grains, and fat-free or low-fat products. These include lean meats, poultry, fish, beans, eggs, and nuts and foods that are low in saturated fats, trans-fats, cholesterol, salt (sodium), and glycemic index. Stressed the importance of regular exercise up to the patient's capacity limits. In this case, we recommend regular (4 x a week or more) walking or other light activity. Patient to monitor BP daily and bring records to PCP for further management. Follow-up: 1 week after methacholine challenge testing Not available 11/02/2023 15:02:45 01/17/2024 01/17/2024 Assessment: Nicotine smoke: 1 ppd 1312-3378 = 18 pack yearsDyspnea Mild OSAHS, AHI = 13 PLMD CKD with anemia Hypomagnesemia Mild persistent asthma Elevated BNP Plan: The following were reviewed and explained to the patient: [facility] home sleep study 10/08/15, AHI = 13 [facility] titration sleep study 11/04/15, sleep onset = 6.5 minutes, REM onset = 101.5 minutes, autoCPAP 5-15 cmH2O, PLMI = 7 [facility] titration sleep study 02/11/23 sleep onset = 117 minutes, REM onset = 261.5 minutes, autoCPAP 5-18 cmH2O, PLMI = 33 PFT 11/01/23 nl FEV1/FVC, FEV1 1.83 L (89%), TLC 3.40 L (81%), RV 0.92 L (54%), DLCO 48%, DLCO/VA 90% Methacholine challenge testing 01/16/24 FEV1 dropped 19% on level 5 ESR 09/06/23 122 mm/hr BUN 09/06/23 39 mg% Creatinine 09/06/23 1.47 mg% Hgb 09/06/23 9.6 gm% Hct 09/06/23 30.1% Magnesium 09/06/23 1.4 mg% Lab data 11/02/23 elevated BNP KIMBERLY 12/08/23 EF 65%, moderate LAD, mod MS, mild MR, mild TR, (+) PFO General information on bronchial asthma was covered. Educational video is shown. Peak flow meter usage instructed. Patient's personal best peak flow today is 200 L/min. Patient will monitor peak flow daily at a set time and again when symptoms of chest tightness, cough, dyspnea or wheezing occur. Patient will bring peak flow record to subsequent visits. The color of a traffic light will guide the patient's use of asthma medications: (1) Green means Go Zone. Peak flow: above 80% of personal best. Symptoms: Breathing is good, no cough or wheeze present, patient sleeps through the night and can work and play. Plan: Patient will continue the use of preventative medicine. (2) Yellow means Caution Zone. Peak flow: between 50-80% of personal best. Symptoms: Presence of first signs of a cold, exposure to known trigger, mild wheeze, tight chest and coughing especially night. Plan: Patient will add quick-relief medicine to preventative medicine. (3) Red means Danger Zone. Peak flow: below 50% of personal best. Symptoms: Asthma is getting worse quickly and medicine is not helping, breathing is hard and fast, nose opens widely when breathing, ribs showing when breathing, and patient cannot speak in full sentences. Plan: Patient will get help from a physician immediately. Continue Albuterol HFA as needed. Restart Advair Diskus 100/50 mcg 1 inhalation BID. Gargle after use. The patient does not know how to accurately administer the inhalers. Today, the patient was shown how to take these medications. The proper technique for delivering these medications was instructed. The patient expressed a clear understanding and demonstrated back how to use these medications. Without the proper technique, the patient will not reap the benefits of these medications as the contents will not reach the lower airways as intended to be. Adherence to therapy is advocated. Nonadherence may lead to treatment failure, further progression of the condition, and other complications. Hospitals admissions are often the result of individuals not taking prescription medications accurately. Elevation in periodic limb movement index may be contributed by duloxetine. Non-pharmacologic therapy options for periodic limb movement disorder include avoidance of aggravating drugs and substances, mental alerting activities, short daily hemodialysis for patients in renal failure, exercise, leg massage, stretching calf muscles, use of a weighted blanket and applied heat. Patient will cut down on caffeine intake. Vitamin E, Vitamin B12, RBC folate, Iron, TIBC, Ferritin are within normal limits. Patient will get a nephrology referral from her PCP. Patient will take Mg Oxide 400 mg daily to keep Mg > 1.6 mg%. We will hold off on dopaminergic therapy for now. We will try to obtain [facility] sleep study and echocardiogram from 2023. Patient will bring KOKI unit to [facility] for repair. PAP is set at 12 cmH2O. PAP will remain at 12 cmH2O. Keep ramp off. Keep humidifier at level 4. Keep EPR +2 multimedia technician. Oxygen supplementation: none Patient is benefiting from PAP therapy. Encouraged patient to maintain PAP use more than 70% of the time. Statement of PAP use and benefits will be sent to the home care store. Educated the patient on problems and solutions associated with positive airway pressure (PAP) use. Difficulty tolerating pressure, mask leaks, intolerance of interface, nasal congestion, claustrophobic response, dry mouth, and unintentional mask removal during sleep were covered. Provided the patient with a list of local home care stores where positive airway pressure (PAP) units, accoutrement, and services are available. Home care store selection is based on patient's insurance carrier. Patient will setup an appointment with [facility] for supplies and pressure adjustments. A major predictor of success with use of PAP is follow-up with both the respiratory supplier and the treating physician. The download results can show the treating physician information about adherence to treatment, residual AHI while on treatment and presence of large mask leakage. This information is especially helpful if the patient has residual sleepiness despite treatment. General information on sleep disordered breathing, evaluation of sleep disordered breathing, treatment with PAP therapy, and living with PAP therapy were covered. We discussed with the patient the impact of weight on: Sleep disordered breathing Hyperlipidemia Hypertension DM STEPHANIE Urge urinary incontinence CKD Low back pain Gout OA We discussed with the patient the benefit of PAP therapy on: Sleep disordered breathing Anxiety/Depressio n Rhinitis Hypertension DM STEPHANIE Urge urinary incontinence Educated the patient on sleep hygiene measures. Relaxing rituals to rest easy, understanding foods with positive and negative impact on sleep, creating a peaceful sleep environment, timing of exercise, using herbal sleep aids, and practicing sleep-friendly meditation were covered. To determine how much sleep is needed, the patient will assess where she falls on the spectrum, examine what lifestyle factors such as work schedules and stress are affecting the quality and quantity of sleep. In general, adults need 7-9 hours of sleep. Educated the patient regarding foods that promote sleep. These include but are not limited to cherries, bananas, toast, oatmeal, and warm milk. Educated the patient regarding foods and drinks to avoid before bedtime. These include but are not limited to aged cheese, chocolate, spicy foods, tomato-based sauces, soy, ginseng tea and processed meat. Advocated influenza vaccination annually and pneumonia vaccination EARNESTINE. Advocated weight loss through diet and exercise. Patient's ideal body weight according to height and gender is up to 125 lbs. Encouraged patient to adjust caloric intake to maintain/achieve ideal body weight, emphasizing on fruits, vegetables, whole grains, and fat-free or low-fat products. These include lean meats, poultry, fish, beans, eggs, and nuts and foods that are low in saturated fats, trans-fats, cholesterol, salt (sodium), and glycemic index. Stressed the importance of regular exercise up to the patient's capacity limits. In this case, we recommend regular (4 x a week or more) walking or other light activity. Patient to monitor BP daily and bring records to PCP for further management. Follow-up: 3 months, March 2024 Not available 01/17/2024 14:07:24 03/21/2024 03/21/2024 This note is dictated and transcribed by [employer]. Cost Estimating Clerk variances may occur. Despite proofreading, typographical errors may occur. Occasional wrong-word or 'xfpco-z-[id number]' substitutions may have occurred due to the inherent limitations of voice recording. Read the chart carefully and recognize, using context, where substitutions have occurred. [email or web address] Not available 03/21/2024 14:50:26 Plan of Treatment Reminders Order Date Submit Date Provider Last Modified By Organization Details Last Modified Time Details Appointments Any 30 2024 09:00A Rafael Benitez MD Not available Not available Not available Establish ed Patient 15 2024 01:30P Rafael Saravia DPM Not available Not available Not available Lab alpha-1-a ntitrypsi n (aat) phenotype , serum [address] (Lab), [address] [place], [address], 02/08/2024 14:04:07 BNP (B-type natriuret ic peptide), serum or plasma 2023 024 [facility] (Lab), [address] [place], [address], 11/02/2023 18:38:32 ige, total, serum 2023 024 [facility] (Lab), [address] [place], [address], 11/13/2023 13:28:28 tb (M tuberculo sis), ifn-gamma eliane, blood [address] (Lab), [address] [place], [address], 02/08/2024 14:04:07 eosinophi l count, manual, blood (OBS) [address] (Lab), [address] [place], [address], 02/08/2024 14:04:07 [address] s 1+2+3+4, serum [address] (Lab), [address] [place], [address], 02/08/2024 14:04:07 respirato ry allergen panel, [facility] A, serum [address] (Lab), [address] [place], [address], 02/08/2024 14:04:07 respirato ry allergen panel - [facility] b 2023 024 [email or web address] 2 [facility] (Lab), [address] [place], [address], 02/08/2024 14:04:08 magnesium , serum or plasma 2023 025 [facility] (Lab), [address] [place], [address], 03/18/2024 17:29:00 Referral None recorded. Procedures None recorded. Surgeries None recorded. Imaging None recorded. Medication Orders magnesium oxide 400 mg (241.3 mg magnesium ) tablet 2023 024 [facility] #[id number], [address] [place], [place], [id number], 11/02/2023 14:53:12 magnesium oxide 400 mg (241.3 mg magnesium ) tablet 2023 024 [facility] #[id number], [address] [place], [place], [id number], 01/17/2024 12:00:06 Advair Diskus 100 mcg-50 mcg/dose powder for inhalatio n 2023 024 [id number], [address] [place], [place], [phone], 01/17/2024 12:00:07 albuterol sulfate HFA 90 mcg/actua tion aerosol inhaler 2023 024 [facility] #[id number], [address] [place], [place], [id number], 01/17/2024 12:00:06 Patient TargetsNo targets recorded. Patient Instructions Encounter Date Encounter Id Patient Instructions Last Modified By Organization Details Last Modified Time 11/02/2023 [id number] methacholine challenge* - Please call patient to schedule. [email or web address] Not available 12/04/2023 17:52:47 Reason for Referral None Reported. Results Created Date Observation Date Name Description Value Unit Range Abnormal Flag Note LastModifiedBy Organization Detail LastModifiedTime 11/03/19 24 11/02/2023 compl ete PFT w/ [facility] hodil ator lottie metry * No observ ation record ed. [facility] ([facility] [address] [place], [address], 11/03/2023 12:49:10 01/17/20 24 01/16/2024 metha choli ne chall enge* No observ ation record ed. [facility] ([facility]) [address] [place], [address], 01/17/2024 11:11:40 01/17/20 24 02/11/2023 polys omnog camelia, titra tion study No observ ation record ed. [facility] Not Available 2023 19:04:37 01/17/20 24 12/08/2023 , echoc ardio gram, trans thora cic, compl ete No observ ation record ed. [facility] Not Available 2023 19:04:37 Result Notes None recorded. Problems Name Problem SNOMED Code Status Onset Date Resolution Date Notes Provider Name and Address Organization Details Recorded Time History of amputatio n of left great toe 79487550402 522462 Active 2022 Not Available [facility] 3 07:32:08 Hammer toe 223034551 Active 2022 Not Available [employer] 3 07:32:08 Chronic depressio n 426476839 Active Not Available [facility] 3 07:32:08 Partial thickness rotator cuff tear 660148287 Active Not Available [facility] 3 07:32:09 Gastroeso phageal reflux disease 104706408 Active Not Available [facility] 3 07:32:09 Anemia 280729224 Active Not Available [facility] 3 07:32:09 Osteoarth ritis 314567982 Active Not Available [facility] 3 07:32:10 Hypothyro idism 50408088 Active Not Available [facility] 3 07:32:11 Obesity 664196123 Active Not Available [facility] 3 07:32:11 Bunion 771524634 Active 2022 Not Available [facility] 3 07:32:11 Diabetic periphera l neuropath y 223780404 Active 2022 Not Available [facility] 3 07:32:11 Anxiety 60481184 Active Not Available [facility] 3 07:32:12 Hyperlipi demia 42795881 Active Not Available [facility] 3 07:32:12 Wheezing 69178543 Completed Not Available [facility] 3 07:32:13 Essential hypertens ion 13753275 Active Not Available [facility] 3 07:32:13 Long-term current use of anticoagu lant 415833852 Active 2021 Not Available [facility] 3 07:32:14 Obstructi ve sleep apnea syndrome 29986938 Active Not Available [facility] 3 07:32:14 Sj gren's syndrome 92035935 Active Not Available [facility] 3 07:32:15 Gout 46065405 Active Not Available [facility] 3 07:32:15 Primary fibromyal steven syndrome 64658767 Active Not Available [facility] 3 07:32:16 Flexion contractu re of toe joint 304810533 Active 2022 Clifton Saravia DPM [address], [place], [address] , [employer] [facility] [employer] 3 14:41:16 Sensorine ural hearing loss 82129512 Active 2022 Antoine Tanner MD [address], [address], [place], [address] , [facility] [employer] [facility] [employer] 3 14:29:40 Acquired hallux limitus of right great toe 29069023609 95612 Active 2022 Clifton Saravia DPM [address], [place], [address] , [employer] 3 16:39:13 Periodic limb movement disorder 274003006 Active 2023 Devin Benitez MD [address], [address], [place], [address] , [employer] 4 11:48:29 Hypomagne semia 464925764 Active 2023 Devin Benitez MD [address], [address], [place], [address] , [employer] 4 11:51:11 Dyspnea on exertion 76732670 Active 2023 Devin Benitez MD [address], [address], [place], [address] , [employer] 4 10:47:47 Mild persisten t asthma 515792975 Active 2023 Devin Benitez MD [address], [address], [place], [address] , [employer] 4 11:41:36 Foot ulcer due to type 2 diabetes mellitus 91169703672 00 Active 2024 Clifton Saravia DPM [address], [place], [address] , [employer] 5 14:50:35 Dystrophi a unguium 37582111 Active 2024 Clifton Saravia DPM [address], [place], [address] , [employer] 5 14:50:56 Hammer toe 494797509 Active 2024 Clifton Saravia DPM [address], [place], [address] , [employer] 5 14:51:19 History of amputatio n of right great toe 44207161060 785866 Active 2024 Clifton Saravia DPM [address], [place], [address] , [employer] 14:51:40 Notes:Medical History: Anxie ty/Depression Sensorineural hearing loss Rhinitis IgE 62 IU/mL Eosinophils 300/uL AAT PiMM 162 mg% Mild persistent asthma Obesity with mild OSAHS, AHI = 13, 10/08/15, on autoCPAP c/o IVRC Hypothyroidism Hyperlipidemia Hypertension EF 65% Moderate LAD Mod MS Mild MR Mild TR (+) PFO Elevated BNP T2DM with neuropathy STEPHANIE Urge urinary incontinence Hypomagnesemia PLMD CKD Normocytic anemia Sjogren's syndrome Vit D deficiency Low back pain Gout RA on hydroxychloroquine Rotator cuff tear Right bunion Fibromyalgia Procedure History: Left 1st toe amputation 2018 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 Procedures Surgical History Date Name Laterality Status Provider Name and Address Organization Details Recorded Time 03/21/19 25 Nail Debridement completed Clifton Saravia DPM [address], [address], [place], [address], [employer] 03/21/2024 14:48:29 10/23/19 24 Nail Debridement completed Clifton Saravia DPM [address], [place], [address], [employer] 10/23/2023 11:58:36 07/20/19 24 Nail Debridement completed Clifton Saravia DPM [address], [place], [address], [employer] 07/20/2023 15:16:22 06/06/19 24 Incision & Drainage Procedure completed Cameron Dan DPM [address] [address], [address], [place], [address], [employer] 06/06/2023 10:43:07 04/10/19 24 Nail Debridement completed Clifton Saravia DPM [address], [address], [place], [address], [employer] 04/17/2023 10:52:28 12/23/19 23 Nail Debridement completed Clifton Saravia DPM [address], [address], [place], [address], [employer] 12/26/2022 08:11:04 12/23/19 23 Joint Injection-Podia try [id number] completed Clifton Saravia DPM [address], [address], [place], [address], [employer] 12/26/2022 08:10:33 09/23/19 23 Nail Debridement completed Clifton Saravia DPM [address], [address], [place], [address], [employer] 09/22/2022 15:10:23 06/24/19 23 Nail Debridement completed Clifton Saravia DPM [address], [address], [place], [address], [employer] 06/23/2022 14:40:20 procedure on elbow completed Not Available [facility] 04/27/2022 07:27:46 procedure on hand completed Not Available [facility] 04/27/2022 07:27:46 Imaging Results Imaging Date Name Status LastModified by Organization Details LastModified Time 11/02/2023 complete PFT w/ post bronchodilator spirometry* completed [facility] ([facility] [address] [place], [address], 11/03/2023 12:49:10 01/16/2024 methacholine challenge* completed [facility] ([facility]) [address] [place], [address], 01/17/2024 11:11:40 02/11/2023 polysomnogram, titration study completed [facility] Information not available 01/17/2024 19:04:37 12/08/2023 US, echocardiogram, transthoracic, complete completed [facility] Information not available 01/17/2024 19:04:37 Procedure Notes None recorded. Medical Equipment None Reported. Allergies Allergen ID Allergen Name Allergen Category Reaction Reaction Severity Criticality Documentation Date Start Date Code Code System Note Provider Name and Address Organization Details Recorded Time 99552 Vibramyci n medicatio n other Not available Not available 04/27/202254388 5 RxNorm Not Available [facility] 3 07:37:15 92406 vancomyci n medicatio n hives Not available Not available 04/27/2022 55865 RxNorm Not Available [facility] 3 07:37:15 36386 valsartan medicatio n other Not available Not available 04/27/2022 80180 RxNorm Not Available [facility] 3 07:37:15 06766 lisinopri l medicatio n cough Not available Not available 04/27/2022 21068 RxNorm Not Available [facility] 3 07:37:15 56762 Betadine medicatio n rash Not available Not available 04/27/202249754 0 RxNorm Not Available [facility] 3 07:37:15 Medications Name Sig Start Date Stop Date Status Note LastModified by Organization Details LastModified Time carisopro dol 350 mg tablet Take 1 tablet every day by oral route at bedtime. active Not Available Not Available No t Available cyclobenz aprine 10 mg tablet Take 1 tablet 3 times a day by oral route as needed. 10/25 completed GENERIC FOR FLEXERIL Not Available Not Available Not Available amoxicill in 500 mg capsule TK ONE C PO BID FOR 14 DAYS active Not Available Not Available No t Available atorvasta tin 40 mg tablet active Not Available Not Available Not Available nystatin 100,000 unit/mL oral suspensio n Take 5 mL 4 times a day by oral route for 7 days. active Not Available Not Available No t Available prednison e 10 mg tablet TK 1 T PO TID FOR 5 DAYS 11/23 completed Not Available Not Available Not Available gabapenti n 600 mg tablet 12/01 completed Not Available Not Available Not Available trazodone 50 mg tablet active Not Available Not Available Not Available cetirizin e 10 mg tablet TAKE 1 TABLET BY MOUTH ONCE DAILY 07/19 completed Not Available Not Available Not Available Iron (ferrous sulfate) 325 mg (65 mg iron) tablet Take 1 tablet every day by oral route. active Not Available Not Available No t Available azithromy candice 250 mg tablet FPD 07/15 completed Not Available Not Available Not Available ibuprofen 800 mg tablet TK 1 T PO Q 8 H PRN 12/01 completed Not Available Not Available Not Available tizanidin e 4 mg tablet TAKE 1 TABLET BY MOUTH TWICE DAILY NEEDED FOR MUSCLE SPASMS 07/19 completed Not Available Not Available Not Available fluconazo le 150 mg tablet TK 1 T PO NOW 12/01 completed Not Available Not Available Not Available benzonata te 200 mg capsule TAKE 1 CAPSULE BY MOUTH THREE TIMES DAILY FOR 7 DAYS 07/15 completed Not Available Not Available Not Available hydrocodo ne 5 mg-acetam inophen 325 mg tablet TK 1 T PO BID PRN active Not Available Not Available No t Available prochlorp erazine maleate 5 mg tablet TAKE 1 TABLET BY MOUTH EVERY 8 HOURS NEEDED FOR NAUSEA OR VOMITING 07/15 completed Not Available Not Available Not Available fluconazo le 200 mg tablet TAKE 1 TABLET BY MOUTH DIRECTED . 07/15 completed Not Available Not Available Not Available meloxicam 15 mg tablet TAKE 1/2 TABLET BY MOUTH TWICE DAILY 07/19 completed Not Available Not Available Not Available ondansetr on HCl 4 mg tablet TAKE 1 TABLET BY MOUTH DAILY NEEDED FOR NAUSEA OR VOMITING 07/15 completed Not Available Not Available Not Available prednison e 20 mg tablet TK 3 TABLETS PO QD 12/01 completed Not Available Not Available Not Available simvastat in 10 mg tablet active Not Available Not Available Not Available prednison e 5 mg tablet TK 1 T PO D 11/23 completed Not Available Not Available Not Available terconazo le 0.8 % vaginal cream 12/01 completed Not Available Not Available Not Available sulfasala zine 500 mg tablet,de layed release 12/01 completed Not Available Not Available Not Available niacin ER 500 mg tablet,ex tended release 24 hr TK 1 T PO QHS active Not Available Not Available No t Available atenolol 25 mg tablet Take 1 tablet every day by oral route. 12/01 completed Not Available Not Available Not Available rifabutin 150 mg capsule Take 2 capsules every day by oral route. active Not Available Not Available No t Available hydroxyzi ne pamoate 50 mg capsule TK ONE C PO Q 6 H PRN 07/19 completed Not Available Not Available Not Available leflunomi de 10 mg tablet 12/01 completed Not Available Not Available Not Available Nexium 40 mg capsule,d elayed release Take 1 cap qd active Not Available Not Available No t Available amlodipin e 2.5 mg tablet 07/25 completed Not Available Not Available Not Available acetamino phen 300 mg-codein e 30 mg tablet 07/19 completed Not Available Not Available Not Available ciproflox acin 250 mg tablet TAKE 1 TABLET BY MOUTH EVERY 12 HOURS UNTIL ALL TAKEN 11/23 completed Not Available Not Available Not Available ciproflox acin 500 mg tablet TAKE 1 TABLET BY MOUTH TWICE DAILY. CALL IF SYMPTOMS PERSIST 01/11 completed Not Available Not Available Not Available sulfameth oxazole 800 mg-trimet hoprim 160 mg tablet TAKE 1 TABLET BY MOUTH TWICE DAILY FOR 10 DAYS 07/25 completed Not Available Not Available Not Available aspirin 81 mg tablet,de layed release Take 1 tablet every day by oral route. 07/19 completed Not Available Not Available Not Available leflunomi de 20 mg tablet active Not Available Not Available Not Available tramadol 50 mg tablet TAKE 1 TABLET BY MOUTH EVERY 6 HOURS NEEDED FOR PAIN 12/01 completed Not Available Not Available Not Available triamcino lone acetonide 0.1 % topical cream APPLY AA BID FOR 14 DAYS. DO NOT USE ON FACE 12/01 completed Not Available Not Available Not Available glimepiri de 2 mg tablet 07/15 completed Not Available Not Available Not Available ketorolac 10 mg tablet TK 1 T PO Q 6 H PRN FOR PAIN 12/01 completed Not Available Not Available Not Available levothyro xine 75 mcg tablet Take 1 tablet every day by oral route for 30 days. active Not Available Not Available No t Available levothyro xine 100 mcg tablet Take 1 tablet every day by oral route for 90 days. active Not Available Not Available No t Available isoniazid 300 mg tablet active Not Available Not Available Not Available alprazola m 0.25 mg tablet 12/01 completed Not Available Not Available Not Available famotidin e 20 mg tablet TK ONE T PO BID 12/01 completed Not Available Not Available Not Available magnesium oxide 400 mg (241.3 mg magnesium ) tablet Take 1 tablet every day by oral route. 2023 active Not Available Not Available Not Avai lable triamcino lone acetonide 0.025 % topical cream 12/01 completed Not Available Not Available Not Available methotrex ate sodium 2.5 mg tablet 12/01 completed Not Available Not Available Not Available OneTouch Ultra Test strips Take 1 strip 4 times a day by miscell. route as directed for 90 days. 07/15 completed Not Available Not Available Not Available simvastat in 5 mg tablet Take 1 tablet every day by oral route for 90 days. active Not Available Not Available No t Available levothyro xine 50 mcg tablet take 1 tab qd 10/25 completed Not Available Not Available Not Available hydrocodo ne 7.5 mg-acetam inophen 325 mg tablet 12/01 completed Not Available Not Available Not Available cephalexi n 500 mg capsule TAKE 1 CAPSULE BY MOUTH EVERY 12 HOURS 07/15 completed Not Available Not Available Not Available piperacil apple-tazob actam 4.5 gram intraveno us solution 11/23 completed Not Available Not Available Not Available erythromy candice 5 mg/gram (0.5 %) eye ointment APPLY SMALL AMOUNT TO THE EYELID THREE TIMES DAILY AFTER SURGERY FOR 10 DAYS 11/23 completed Not Available Not Available Not Available metformin 1,000 mg tablet TK 1 T PO BID WITH MORNING AND EVENING MEALS active Not Available Not Available No t Available nystatin 100,000 unit/gram topical cream APPLY AA TID 12/01 completed Not Available Not Available Not Available lisinopri l 10 mg tablet 12/01 completed Not Available Not Available Not Available glimepiri de 4 mg tablet active Not Available Not Available Not Available prednison e 50 mg tablet TK 1 T PO QD FOR 3 DAYS 11/23 completed Not Available Not Available Not Available naproxen 500 mg tablet,de layed release 12/01 completed Not Available Not Available Not Available promethaz ine 25 mg tablet TK 1 T PO Q 6 H PRN FOR NAUSEA OR VOMITING 12/01 completed Not Available Not Available Not Available Advair Diskus 500 mcg-50 mcg/dose powder for inhalatio n Inhale 1 puff twice a day by inhalati on route for 90 days. 07/25 completed Not Available Not Available Not Available gabapenti n 300 mg capsule TAKE 1 CAPSULE BY MOUTH TWICE DAILY active Not Available Not Available No t Available gentamici n 0.1 % topical cream APPLY TOPICALL Y EVERY DAY TO LEFT GREAT TOE WOUND 07/15 completed Not Available Not Available Not Available folic acid 1 mg tablet TK 1 T PO QD 12/01 completed Not Available Not Available Not Available etodolac 400 mg tablet TK 1 T PO BID active Not Available Not Available No t Available monteluka st 10 mg tablet Take 1 tablet every day by oral route. active Not Available Not Available No t Available hydrocodo ne 5 mg-acetam inophen 500 mg tablet active Not Available Not Available Not Available furosemid e 20 mg tablet active Not Available Not Available Not Available gabapenti n 100 mg capsule 12/01 completed Not Available Not Available Not Available metoprolo l succinate ER 25 mg tablet,ex tended release 24 hr active Not Available Not Available Not Available lorazepam 1 mg tablet TAKE 1 TABLET BY MOUTH TWICE DAILY NEEDED active Not Available Not Available No t Available hydroxych loroquine 200 mg tablet TK 1 T PO BID active Not Available Not Available No t Available fluticaso ne 100 mcg-salme terol 50 mcg/dose blistr powdr for inhalatio n Inhale 1 puff twice a day by inhalati on route. active Not Available Not Available No t Available levofloxa candice 500 mg tablet TAKE 1 TABLET BY MOUTH ONCE DAILY FOR 3 WEEKS 11/23 completed Not Available Not Available Not Available estradiol 0.01% (0.1 mg/gram) vaginal cream INSERT ONE APPLICAT ORFUL VAGINALL Y AT BEDTIME THREE DAYS A WEEK 07/15 completed Not Available Not Available Not Available methylpre dnisolone 4 mg tablets in a dose pack 11/23 completed Not Available Not Available Not Available albuterol sulfate HFA 90 mcg/actua tion aerosol inhaler Inhale 1 puff every 4 hours by inhalati on route as needed. active Not Available Not Available No t Available hydroxyzi ne HCl 10 mg tablet TK 1 T PO Q 6 H 12/01 completed Not Available Not Available Not Available cefdinir 300 mg capsule TAKE 1 CAPSULE BY MOUTH EVERY 12 HOURS active Not Available Not Available No t Available multivita min capsule daily 07/15 completed Not Available Not Available Not Available fluticaso ne propionat e 50 mcg/actua tion nasal spray,melani pension USE 2 SPRAYS NASALLY DAILY DIRECTED active Not Available Not Available No t Available cholecalc iferol (vitamin D3) 125 mcg (5,000 unit) capsule active Not Available Not Available Not Available doxycycli ne hyclate 100 mg tablet TAKE 1 TABLET BY MOUTH EVERY 12 HOURS active Not Available Not Available No t Available naproxen 500 mg tablet 12/01 completed Not Available Not Available Not Available metoclopr amide 10 mg tablet 12/01 completed Not Available Not Available Not Available amoxicill in 875 mg-potass ium clavulana te 125 mg tablet TAKE 1 TABLET BY MOUTH EVERY 12 HOURS active Not Available Not Available No t Available tobramyci n 0.3 %-dexamet hasone 0.1 % eye drops,melani pension SHAKE LIQUID AND INSTILL 1 DROP IN RIGHT EYE FOUR TIMES DAILY. START DROPS AFTER SURGERY 07/15 completed Not Available Not Available Not Available oxycodone 5 mg tablet 12/01 completed Not Available Not Available Not Available valsartan 40 mg tablet Take 1 tablet every day by oral route for 90 days. 12/01 completed Not Available Not Available Not Available metaxalon e 800 mg tablet TAKE 1 TABLET PO TID 12/01 completed Not Available Not Available Not Available cyclobenz aprine 5 mg tablet TAKE 1 TABLET BY MOUTH TWICE DAILY NEEDED FOR MUSCLE SPASM active Not Available Not Available No t Available nitrofura ntoin monohydra te/macroc rystals 100 mg capsule TAKE 1 CAPSULE BY MOUTH TWICE DAILY WHEN EXPERIEN CING SYMPTOMS OF INFECTIO N 08/23 completed Not Available Not Available Not Available duloxetin e 20 mg capsule,d elayed release TAKE 1 CAPSULE BY MOUTH DAILY active Not Available Not Available No t Available duloxetin e 30 mg capsule,d elayed release TK 1 C PO QOD FOR 8 DAYS. FOLLOW WITH 20 MG QOD FOR 8 DAYS THEN STOP 11/29 completed Not Available Not Available Not Available OneTouch UltraSoft Lancets tests tid active Not Available Not Available No t Available BD Ultra-Fin e Mini Pen Needle 31 gauge x 3/16 07/15 completed Not Available Not Available Not Available omega-3 acid ethyl esters 1 gram capsule Take 1 capsule every day by oral route. active Not Available Not Available No t Available Flovent HFA 110 mcg/actua tion aerosol inhaler Inhale 2 puff(s) twice a day by inhalati on route. active Stopped 02/08/13 when began Advair TMS Not Available Not Available Not Available aspirin 08/23 completed Not Available Not Available Not Available calcium 09/21 completed Not Available Not Available Not Available cefdinir 11/01 completed Not Available Not Available Not Available Calcium 500 + D twice daily 07/15 completed Not Available Not Available Not Available Levemir U-100 Insulin 100 unit/mL subcutane ous solution active Not Available Not Available Not Available BD Ultra-Fin e Short Pen Needle 31 gauge x / active Not Available Not Available Not Available Advair HFA 230 mcg-21 mcg/actua tion aerosol inhaler Inhale 2 puffs twice a day by inhalati on route for 30 days. active using samples of advair 500/50 pt. feels it works better than the 230 Not Available Not Available Not Available Januvia 100 mg tablet daily active Not Available Not Available Not Available Symbicort 160 mcg-4.5 mcg/actua tion HFA aerosol inhaler Inhale 2 puffs twice a day by inhalati on route. 12/01 completed Not Available Not Available Not Available Lantus Solostar U-100 Insulin 100 unit/mL (3 mL) subcutane ous pen INJECT 73 UNITS SUB-Q DAILY 12/01 completed Not Available Not Available Not Available Cholestyr amine Light 4 gram oral powder TAKE 4 GRAMS ONCE DAILY WITH A MEAL DIRECTED . AVOID OTHER MEDS WITHIN 1 HOUR BEFORE OR 4-6 HOURS AFTER DOSE 12/01 completed Not Available Not Available Not Available Humalog KwikPen (U-100) Insulin 100 unit/mL subcutane ous sliding scale no more than 24 units in 24 hours period/ 90 day supply 12/01 completed Not Available Not Available Not Available Humalog KwikPen Insulin Sliding scale at meals 12/01 completed Not Available Not Available Not Available Onglyza 5 mg tablet TAKE 1 TABLET BY MOUTH DAILY active Not Available Not Available No t Available Colcrys 0.6 mg tablet active Not Available Not Available Not Available cetirizin e 10 mg capsule Take by oral route. 08/23 completed Not Available Not Available Not Available Vitamin D3 125 mcg (5,000 unit) tablet Take 1 tablet every day by oral route. 12/01 completed Not Available Not Available Not Available Jinteli 1 mg-5 mcg tablet Take 1 tablet every day by oral route for 90 days. 08/12 completed Not Available Not Available Not Available Gralise 600 mg tablet,ex tended release 12/01 completed Not Available Not Available Not Available Myrbetriq 25 mg tablet,ex tended release TK 1 T PO QD 07/19 completed Not Available Not Available Not Available Eliquis 5 mg tablet active Not Available Not Available No t Available Invokana 100 mg tablet 12/01 completed Not Available Not Available Not Available Bydureon 2 mg/0.65 mL subcutane ous pen injector Inject 0.65 mL by subcutan eous route. 12/01 completed Not Available Not Available Not Available Jardiance 10 mg tablet 12/01 completed Not Available Not Available Not Available Lucie Del TorooStrhys U-300 Insulin 300 unit/mL (1.5 mL) subcutane ous pen active Not Available Not Available Not Available Xeljanz XR 11 mg tablet,ex tended release 12/01 completed Not Available Not Available Not Available Fish Oil 1,000 mg (120 mg-180 mg) capsule Take 1 capsule by oral route. 07/25 completed Not Available Not Available Not Available Ozempic 0.25 mg or 0.5 mg (2 mg/1.5 mL) subcutane ous pen injector 11/23 completed Not Available Not Available Not Available [employer]'s Mult[employer] min 1 po qd 07/15 completed Not Available Not Available Not Available Xarelto 2.5 mg tablet active Not Available Not Available Not Available Fluad 65yr up(PF)45 mcg(15 mcgx3)/0. 5 mL intramusc ular syringe inject 0.5 millilit ers intramus cularly 11/23 completed Not Available Not Available Not Available Ozempic 1 mg/dose (4 mg/3 mL) subcutane ous pen injector 12/01 completed Not Available Not Available Not Available Kerendia 10 mg tablet TAKE 1 TABLET BY MOUTH EVERY DAY 12/01 completed Not Available Not Available Not Available Lagevrio 200 mg capsule (EUA) TAKE 4 CAPSULES BY MOUTH EVERY 12 HOURS FOR 5 DAYS 12/01 completed Not Available Not Available Not Available Vitals Date Recorded Body height Body mass index (BMI) Body weight Heart rate Systolic blood pressure Diastolic blood pressure Provider Name and Address Organization Details Last Updated DateTime 160.02 cm 39.5 kg/m2 187921. 1 g 82 /min 119 mm[Hg] 54 mm[Hg] Valerie Smith [employer] 11:55:36 Date Recorded Body height Body mass index (BMI) Body weight Provider Name and Address Organization Details Last Updated DateTime 10/23/2023 160.02 cm 41.3 kg/m2 991193.02 g Valerie Smith [employer] 10/23/2023 11:11:57 Date Recorded Body height Body mass index (BMI) Body weight Heart rate Body temperature Systolic blood pressure Diastolic blood pressure Provider Name and Address Organization Details Last Updated DateTime 160.02 cm 38.1 kg/m2 75792.3 6 g 84 /min 98.1 [degF] 122 mm[Hg] 70 mm[Hg] Kenton Colón CMA [employer] 11:16:29 Date Recorded Oxygen saturation Oxygen saturation in Arterial blood by Pulse oximetry Heart rate Respiratory rate Provider Name and Address Organization Details Last Updated DateTime 11/02/2023 93 % 93 % 84 /min 15 /min Devin Benitez MD [address] [facility], [facility] [address], [place], [address], [employer] [facility] [employer] 15:00:54 Date Recorded Body height Body mass index (BMI) Body weight Systolic blood pressure Diastolic blood pressure Provider Name and Address Organization Details Last Updated DateTime 01/17/2024 160.02 cm 38.1 kg/m2 60610.36 g 128 mm[Hg] 66 mm[Hg] Valentina Payne MA [place] - [facility] 4 11:26:17 Date Recorded Body temperature Heart rate Oxygen saturation Oxygen saturation in Arterial blood by Pulse oximetry Heart rate Respiratory rate Provider Name and Address Organization Details Last Updated DateTime 4 99.8 [degF] 99 /min 95 % 95 % 99 /min 15 /min Devin Benitez MD [address] [facility], [facility] [address], [place], [address], [facility] [employer] [facility] 4 12:03:46 Date Recorded Body height Body mass index (BMI) Body weight Heart rate Respiratory rate Oxygen saturation Oxygen saturation in Arterial blood by Pulse oximetry Systolic blood pressure Diastolic blood pressure Provider Name and Address Organization Details Last Updated DateTime 5 160.02 cm 38.1 kg/m2 88029.3 6 g 87 /min 14 /min 98 % 98 % 106 mm[Hg] 47 mm[Hg] Sun Millard [facility] [employer] [facility] 5 14:28:06 Social History Question Answer Notes LastModified by Organizat ion Details LastModified Time Tobacco Smoking Status Former Smoker [place] Ivory lio, [facility] [employer] [facility] 04/10/2023 15:54:00 What Is Your Level Of Alcohol Consumption? Occasional [id number] Information not available 04/27/2022 What Is Your Level Of Caffeine Consumption? Moderate [id number] Information not available 04/27/2022 In The 14 Days Before Symptom Onset, Have You Had Close Contact With A Laboratory-confir med COVID-19 While That Case Was Ill? No Information not available 04/10/2023 In The 14 Days Before Symptom Onset, Have You Had Close Contact With A Person Who Is Under Investigation For COVID-19 While That Person Was Ill? No Information not available 04/10/2023 Do You Have An Electrostatic Air Filter? No Information not available 01/17/2024 What Is Your Occupation? N/a Information not available 04/10/2023 When Did You Quit Smoking? 18+yearssinbryant silveira 1995 Information not available 04/10/2023 Do You Have A Humidifier? No Information not available 01/17/2024 Do You Have Moisture Problems In Your Home? No Information not available 01/17/2024 What Was The Date Of Your Most Recent Tobacco Screening? 01/17/2024 Information not available 01/17/2024 Have You Ever Been Counseled For Unhealthy Alcohol Use? No Information not available 04/10/2023 Do You Have Any Pets? Yes Information not available 01/17/2024 Do You Use Your Seat Belt Or Car Seat Routinely? Yes Information not available 01/17/2024 Do You Have Smoke And Carbon Monoxide Detectors In Your Home? Yes Information not available 01/17/2024 Are You Passively Exposed To Smoke? No Information no t available 01/17/2024 Do You Feel Stressed (tense, Restless, Nervous, Or Anxious, Or Unable To Sleep At Night)? [id number] Information not available 01/17/2024 Do You Use Any Illicit Or Recreational Drugs? No Information not available 04/10/2023 Have You Recently Traveled Abroad? No Information not available 04/10/2023 Do You Or Have You Ever Used Any Other Forms Of Tobacco Or Nicotine? No Information not available 04/10/2023 Sex: Unknown Functional Status None recorded. Mental Status None recorded. Family History Relationship Description Onset Age of this Age Resolved Age Notes LastModified by Organization Details LastModified Time Daughter Asthma Not available 1 03/18/2023 11:35:26 Medical History Condition Response DIABETES, TYPE Y HYPERTENSION Y Gynecological HistoryNo gynecological history recorded. Obstetrics History GPAL:G 0 P 0 0 0 0 Immunizations Vaccine Type Date Status Note Provider Nam e and Address Organization Details Recorded Time Influenza, high-dose, trivalent, PF 3 completed Not Available [facility] 04/27/2022 07:37:07 Influenza, high-dose, trivalent, PF 1 completed Not Available [facility] 04/27/2022 07:37:07 Influenza, high-dose, trivalent, PF 0 completed Not Available [facility] 04/27/2022 07:37:07 pneumococcal polysaccharide PPV23 0 completed Not Available [facility] 04/27/2022 07:37:07 COVID-19, mRNA, LNP-S, PF, 30 mcg/0.3 mL dose 1 completed Not Available [facility] 04/27/2022 07:37:08 COVID-19, mRNA, LNP-S, PF, 30 mcg/0.3 mL dose 1 completed Not Available [facility] 04/27/2022 07:37:08 Td (adult) 7 completed Not Available [facility] 04/27/2022 07:37:08 Past Encounters Encounter ID Performer Location Encounter Start Date Encounter Closed Date Diagnosis/Indication Diagnosis SNOMED-CT Code Diagnosis ICD10 Code Diagnosis Note [id number] [facility] [place] [address] [place] [address] 01/27/2021 00:00:00 01/27/2021 12:58:10 [id number] [facility] [place] [address] [place] [address] 04/15/2021 00:00:00 04/15/2021 14:21:47 [id number] _ATHENA_M IGRATION_ DEFAULT_1 _1 , 05/07/2021 00:00:00 05/10/2021 09:54:36 [id number] [facility] [place] [address] [place] [address] 07/09/2021 00:00:00 07/23/2021 17:10:07 [id number] _ATHENA_M IGRATION_ DEFAULT_1 _1 , 10/22/2021 00:00:00 10/26/2021 10:34:40 [id number] [facility] [place] [address] [place] [address] 03/14/2022 00:00:00 03/14/2022 12:18:33 [id number] Clifton Saravia DPM [facility] [place] [address] [place] [address] 06/23/2022 13:45:11 06/23/2022 14:45:21 Diabetic peripheral neuropathy [id number] E11.42 Patient educated on neuropathy , diabetes, diabetic diet, and daily foot exams. Patient is to check feet daily for new wounds, blisters, redness to prevent infection and ulceration s to the feet. Patient will return to clinic in 3 months for diabetic foot workup. History of amputation of left great toe [id number] 9463028 Z89.412 secondary to history of toe amputation to the left foot with existing neuropathy the and plantar flexion contractur e of her toes patient would benefit greatly from diabetic shoes and insoles to prevent recurrent wounds of her feet. Flexion co ntracture of toe joint 925671798 M21.279 bilateral feetoffloa dingRx diabetic shoes Dystrophia unguium 33170 009 L60.3 Nails 1 through 9 were debrided with sharp mechanical debridemen t without incident. Nails were debrided and greater than 50% length and thickness where needed. Obesity 100582796 E66.9 recommend weight loss facilitate with PCP Dog bite - wound 7906218 05 W54.0XXA dorsal right footcontin ue daily wound careif signs of infection present seek medical attention immediatel yFollow-up in 1 week [id number] Clifton Saravia DPM [facility] [address], [facility] [address] [place] [address] 07/05/2022 09:51:18 07/05/2022 10:44:16 Dog bite - wound [id number] W54.0XXA dorsal right footresolv ed paincontin ue daily wound careif signs of infection present seek medical attention immediatel yFollow-up in 1 week Blister of toe without infection 62426407 S90.424D right 5th toehealedc ontinue supportive shoe gearFollow -up as needed [id number] Clifton Saravia DPM [facility] [place] [address] [place] [address] 09/22/2022 14:45:42 09/22/2022 15:28:11 Diabetic peripheral neuropathy 694554205 E11.42 Patient educated on neuropathy , diabetes, diabetic diet, and daily foot exams. Patient is to check feet daily for new wounds, blisters, redness to prevent infection and ulceration s to the feet. Patient will return to clinic in 3 months for diabetic foot workup.has not obtained diabetic shoes and inserts- we did check and have sent all for work to [facility] [place] [place]. Juan Miguel cisnerosuium [id number] [id number] L60.3 Nails 1 through 9 were debrided with sharp mechanical debridemen t without incident. Nails were debrided and greater than 50% length and thickness where needed. History of amputation of left great toe 1393013027 7448696 Z89.412 secondary to history of toe amputation to the left foot with existing neuropathy the and plantar flexion contractur e of her toes patient would benefit greatly from diabetic shoes and insoles to prevent recurrent wounds of her feet. [id number] Antoine Tanner MD [facility] [place] [address] [place] [address] 12/01/2022 14:02:01 12/01/2022 14:30:56 Sensorineural hearing loss 96391679 H90.5 [id number] Clifton Saravia DPM [facility] Podiatry [place] [address] [place] [address] 12/22/2022 15:40:56 12/26/2022 09:46:24 Acquired hallux limitus of right great toe [id number] 423458 M20.5X1 injection 4 mg dexamethas one phosphate right great toe metatarsop halangeal joint, 12/22/2022 Diabetes mellitus 253721 09 E11.40 continue PCP recommenda tion Diabetic p eripheral neuropathy 760164369 E11.42 Patient educated on neuropathy , diabetes, diabetic diet, and daily foot exams. Patient is to check feet daily for new wounds, blisters, redness to prevent infection and ulceration s to the feet. Patient will return to clinic in 3 months for diabetic foot workup.has not obtained diabetic shoes and inserts- we did check and have sent all for work to [facility] [place] [place]. Juan Miguel markum 42003 009 L60.3 Nails 1 through 9 were debrided with sharp mechanical debridemen t without incident. Nails were debrided and greater than 50% length and thickness where needed. History of amputation of left great toe [id number] 4418753 Z89.412 secondary to history of toe amputation to the left foot with existing neuropathy the and plantar flexion contractur e of her toes patient would benefit greatly from diabetic shoes and insoles to prevent recurrent wounds of her feet. [id number] Clifton Saravia DPM [facility] Podiatry [place] [address] [place] [address] 04/10/2023 15:52:59 04/17/2023 11:12:34 Diabetes mellitus 07870924 E11.40 continue PCP recommenda tion History of amputation of left great toe 0716618002 4530685 Z89.412 secondary to history of toe amputation to the left foot with existing neuropathy the and plantar flexion contractur e of her toes patient would benefit greatly from diabetic shoes and insoles to prevent recurrent wounds of her feet. Dystrophia unguium 85126 009 L60.3 Nails 1 through 9 were debrided with sharp mechanical debridemen t without incident. Nails were debrided and greater than 50% length and thickness where needed. [id number] Cameron Dan DPM [facility] Podiatry [facility] [address] [address] 06/06/2023 09:50:06 06/06/2023 10:49:15 Abscess of skin and/or subcutaneous tissue 05750582 L02.91 [id number] Cameron Dan DPM [facility] Podiatry [facility] [address] [address] 06/12/2023 09:52:01 06/12/2023 11:19:21 [id number] Clifton Saravia DPM [facility] Podiatry [place] [address] [place] [address] 07/20/2023 14:23:03 07/21/2023 10:41:03 Skin eschar 226799367 R23.4 left 2nd toekeep clean and dryallow to healif not healed in 1 week return office Blood blister 514128379 T14.8XXA left 3rd toeas above Dystrophia unguium 72313 009 L60.3 Nails 1 through 9 were debrided with sharp mechanical debridemen t without incident. Nails were debrided and greater than 50% length and thickness where needed. 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 Podiatry [place] [address] [place] [address] 08/24/2023 11:38:20 08/24/2023 14:23:44 Bunion 558520994 M21.619 recommend offloading supportive shoe gear wide soft toe box shoes recommende dIf continues to be problemati c will require surgery currently denies surgery Blood blister 940799243 T14.8XXA medial great toe rightofflo adingkeep the area clean and dry dailyFollo w-up in 1-2 weeks [id number] Clifton Saravia DPM [facility] Podiatry [place] [address] [place] [address] 10/23/2023 11:01:33 10/23/2023 16:47:22 Open wound of right great toe 9825271147 5502282 S91.101A right great toe- full-thick ness secondary to callusing and skin fissurecon tinue offloading Rx- extra-dept h, neoprene style toe box diabetic shoesmonit or for infection at present seek medical attention immediatel ySeeking wound care with [facility] Open wound of toe of left foot 9906115171 4305895 S91.105A left 2nd- full-thick ness, fibrotic wound bed no acute signs of infectionc ontinue offloading wound care dailyseeki ng wound care with [facility] History of amputation of left great toe 8242206986 4632662 Z89.412 secondary to history of toe amputation to the left foot with existing neuropathy the and plantar flexion contractur e of her toes patient would benefit greatly from diabetic shoes and insoles to prevent recurrent wounds of her feet. Diabetic p eripheral neuropathy 033442699 E11.42 Rx diabetic shoe gear- neoprene style toe box shoe, extra-dept h Dystrophia unguium 71513 009 L60.3 Nails 1 through 9 were debrided with sharp mechanical debridemen t without incident. Nails were debrided and greater than 50% length and thickness where needed. [id number] Devin Benitez MD [facility] [address] 11/02/2023 10:56:19 11/03/2023 10:45:37 Dyspnea on exertion 86310797 R06.09 R05.3 D89.9 T78.40XA Obstructiv e sleep apnea syndrome 72093800 G47.33 Periodic l imb movement disorder 241989475 G47.61 D50.8 E83.42 Hypomagnesemia 679462006 E83.42 [id number] Devin Benitez MD [address] [address] 01/17/2024 10:40:32 02/26/2024 11:51:28 Obstructive sleep apnea syndrome 01067393 G47.33 Periodic l imb movement disorder 662235409 G47.61 Hypomagnesemia 898173861 E83.42 Mild persi stent asthma 881776124 J45.30 [id number] Clifton Saravia DPM [facility] [place] [address] [place] [address] 03/21/2024 14:22:44 03/22/2024 13:46:52 Foot ulcer due to type 2 diabetes mellitus 1588569298 100 E11.621 right 2nd toedaily wound careFollow -up week if not healed History of amputation of right great toe 4535955157 0470676 Z89.411 right great toe well healed- performed by [facility] Dystrophia unguium 22206 009 L60.3 Nails 1 through 8 were debrided with sharp mechanical debridemen t without incident. Nails were debrided and greater than 50% length and thickness where needed. Hammer toe 084850488 M20 .42 left 2nd toeoffload ing dailysilic one toe sleeve recommende drecommend diabetic shoe gear and insoles with extra-dept h shoes Health Concerns Section Related Observation LastModified by Organization Detai ls LastModified Time None Recorded Concern Status LastModified by Organization Details LastModified Time None Recorded Advance Directives Directive None Recorded Payers Encounter Date Sequence Insurance Name Policy Number Policy Puga Covered Member ID Puga Member ID Guarantor Name 08/24/2023 2 [place] Aleyda L Dilia [id number] Aleyda Juju Dilia 08/24/2023 3 [place] [id number] Drake L [place] [id number] Aleyda Juju [place] 10/23/2023 2 [place]da L [place] [id number] Aleyda Juju [place] 10/23/2023 3 [place] [id number] Drake L [place] [id number] Aleyda Juju [place] 11/02/2023 2 [place] Aleyda L Dilia [id number] Aleyda Juju [place] 11/02/2023 3 [place] [id number] Drake L [place] [id number] Aleyda Juju [place] 01/17/2024 2 [place] Aleyda L Dilia [id number] Aleyda Juju [place] 01/17/2024 1 [facility] - [facility] C[facility] IC DESIGN ARCHITECT [facility] - OPEN ACCESS III (PPO) Aleyda Juju Dilia [id number] Aelyda Juju [place] 03/21/2024 2 [place] Aleyda L Dilia [id number] Aleyda Juju [place] 03/21/2024 1 [facility] HOME CARE & [facility]NA[facility] IC DESIGN ARCHITECT [facility] - OPEN ACCESS III (PPO) Aleyda Dobbs [id number] Aleyda Dobbs Notes Date Note Type Note Provider Name and Address Organization Details Recorded Time 08/24/2023 text/html . Patient is a 73-year-old female diabetic who presents the office with a mild bunion to the right great toe. Patient states she was standing down a callus and caused a blister at developed into a blood blister. Patient states that she was concerned about the appearance. It is stable and healing she is no acute signs of infection. Patient denies any fever, chills, nausea vomiting. Patient denies any significant pain but has mild tenderness to the area. Patient denies any other complaints. Clifton Saravia DPM [address], [place], [address], [employer] 08/24/2023 13:24:39 10/23/2023 text/html . Patient is a 73-year-old female diabetic who returns the office for follow-up on diabetic foot care. Patient states she developed wounds of the right great toe and left 2nd toe which has been problematic for approximately 1 month she states she was hospitalized for this as well as been undergoing wound care at [facility]. Patient denies any fever, chills, nausea vomiting. Patient continues to offload the toes with wound care daily. Patient denies any other complaints and would like her nails cut. Clifton Saravia DPM [address], [place], [address], [employer] 10/23/2023 12:13:35 11/02/2023 text/html Primary care/Ref erring provider: Gilberto rAmendariz DO; Ashley Soto NP CC: My KOKI G3 unit from 2021 is broken since 2022 and has not been repaired. I am still using the older ResMed AirSense 10 autoset unit because I am not eligible for a new CPAP yet. Patient is here to go over her PFT as part of her shortness of breath evaluation/management. Initial development of shortness of breath: 2013Duration of shortness of breath: 11 yearsCondition of shortness of breath: stableTiming of shortness of breath: noneFrequency: up to 3 times a dayLimits activities: yesAggravating factors: walking, going upstairs, doing laundryAlleviating factors: rest Modified [employer] (mMRC) Dyspnea Scale - Grade 2Grade 0 I only get breathless with strenuous exercise .Grade 1 I get short of breath when hurrying on the level or walking up a slight hill .Grade 2 I walk slower than people of the same age on the level because of breathlessness or have to stop for breath when walking at my own pace on the level .Grade 3 I stop for breath after walking about 100 yards or after a few minutes on the level .Grade 4 I am too breathless to leave the house or I am breathless when dressing . Treatment history: Albuterol HFA as needed since 2012 up to 2 times per weekAdvair diskus 500/50 1 inhalation BID [id number] Other symptoms:Drooling: noDysarthria: noNeck pain: noOdynophagia: noDysphagia: noWeak mastication: noFacial weakness: noNasal speech: noProtruding tongue: noProductive cough: noWheezing: yesChest tightness: yesOrthopnea: noFrequent throat clearing or swallowing: noPalpitations: noHeartburn: yesEdema: yes Environmental exposures:Nicotine smoke: 1 ppd 6925-1063 = 18 pack yearsPaint: noDye: noDust mites: yesMold: noDamp basement: noWood burning stove: noAnimal dander: dogCockroaches: noPollen: yesArsenic: noAsbestos: noBeryllium: noCadmium: noChromium: noCoal smoke: noDiesel fumes: noNickel: noSilica: noSoot: no During the [facility] home sleep study on 10/08/15, AHI = 13.During the [facility] titration sleep study on 11/04/15, sleep onset = 6.5 minutes, REM onset = 101.5 minutes, autoCPAP 5-15 cmH2O was applied, PLMI = 7. At home since 07/26/23, the patient uses a ResMed AirSense 10 autoset unit with heated humidification. The patient does not need the ramp to start low and go up slowly on the pressure anymore. There is no xerostomia in a.m. There is no hose/mask condensation with water.The patient wears a ResMed medium AirFit F30 full face mask without chin strap. There is no claustrophobia, no nostril/nose bridge irritation, no facial rash, no facial numbness, no nosebleeding. The patient feels more refreshed upon waking and daytime alertness is improved. Energy levels are sustained until late afternoon, around 6 pm. At home, the patient sleeps from 12 am to 7 am and wakes up without an alarm. Snoring: moderate, since .Snorting: noChoking: noCoughing: noGasping: yesGagging: noSighing: noWitnessed apnea: yesTwitching or jerking of leg(s), arm(s), body, head: yesTeeth grinding: noTeeth clenching: noSleeptalking: noSleepwalking: noSleep crying: noBedwetting: yesTongue/lip/gum/cheek biting: noSleeping with open mouth: yesSleep paralysis: noHypnagogic hallucinations: noHypnopompic hallucinations: noVivid dreams: yesDifficulty with sleep onset: noDifficulty with sleep maintenance: yesSleep interruptions: nocturia x 4Patient wakes up with: fatigue, xerostomia, hoarse voice, mobility impairment, dexterity impairmentDaytime cataplexy: noMorning hypersomnolence: noAfternoon hypersomnolence: yesCaffeine sources in diet: coffee 3.5 cups per day, soda 16 oz per day Associated medical and psychiatric conditions:Congestive heart failure: noCoronary artery disease: noMyocardial infarction: noHypertension: yesStroke: noBronchial asthma: noChronic obstructive pulmonary disease: noDepression: yesBipolar disorder: noAnxiety: yesPanic disorder: noPosttraumatic stress disorder: noAttention deficit and hyperactivity disorder: noObsessive Compulsive disorder: noSchizophrenia: noSchizoaffective disorder: noPersonality disorder: noChronic analgesic use: noChronic sedative/hypnotic use: no EPWORTH SLEEPINESS SCALE (ESS) CHANCE OF DOZING SCORE0 = would never doze1 = slight chance of dozing2 = moderate chance of dozing3 = high chance of dozing SITUATION AND CHANCE OF DOZINGSitting and reading - 1Watching television - 2Sitting inactive in a public place (e.g. a theater or meeting) - 0As a passenger in a car for an hour without a break - 1Lying down to rest in the afternoon when circumstances permit - 2Sitting and talking to someone - 1Sitting quietly after lunch without alcohol - 0In a car, while stopped for a few minutes in the traffic - 1TOTAL SCORE 8Subjectively, patient has a slight chance of dozing. Devin Benitez MD [address] [place] [address], [address], [place] [facility] [employer] 11/02/2023 15:02:56 01/17/2024 text/html Primary care/Ref erring provider: Ashley Soto NP CC: My KOKI G3 unit from 2021 is broken since 2022 and has not been repaired. I am still using the older ResMed AirSense 10 autoset unit because I am not eligible for a new CPAP yet. Patient is here to go over her methacholine challenge as part of her shortness of breath evaluation/management. Initial development of shortness of breath: 2013Duration of shortness of breath: 11 yearsCondition of shortness of breath: stableTiming of shortness of breath: noneFrequency: up to 3 times a dayLimits activities: yesAggravating factors: walking, going upstairs, doing laundryAlleviating factors: rest Modified Medical Research [employer] (mMRC) Dyspnea Scale - Grade 2Grade 0 I only get breathless with strenuous exercise .Grade 1 I get short of breath when hurrying on the level or walking up a slight hill .Grade 2 I walk slower than people of the same age on the level because of breathlessness or have to stop for breath when walking at my own pace on the level .Grade 3 I stop for breath after walking about 100 yards or after a few minutes on the level .Grade 4 I am too breathless to leave the house or I am breathless when dressing . Treatment history: Albuterol HFA as needed since 2012, she uses this everydayAdvair diskus 500/50 1 inhalation BID [id number] Other symptoms:Drooling: noDysarthria: noNeck pain: noOdynophagia: noDysphagia: noWeak mastication: noFacial weakness: noNasal speech: noProtruding tongue: noProductive cough: noWheezing: yesChest tightness: yesOrthopnea: noFrequent throat clearing or swallowing: noPalpitations: noHeartburn: yesEdema: yes Environmental exposures:Nicotine smoke: 1 ppd 0421-9108 = 18 pack yearsPaint: noDye: noDust mites: yesMold: noDamp basement: noWood burning stove: noAnimal dander: dogCockroaches: noPollen: yesArsenic: noAsbestos: noBeryllium: noCadmium: noChromium: noCoal smoke: noDiesel fumes: noNickel: noSilica: noSoot: no During the [facility] home sleep study on 10/08/15, AHI = 13.During the [facility] titration sleep study on 11/04/15, sleep onset = 6.5 minutes, REM onset = 101.5 minutes, autoCPAP 5-15 cmH2O was applied, PLMI = 7. At home since 07/26/23, the patient uses a ResMed AirSense 10 autoset unit with heated humidification. The patient does not need the ramp to start low and go up slowly on the pressure anymore. There is no xerostomia in a.m. There is no hose/mask condensation with water.The patient wears a ResMed medium AirFit F30 full face mask without chin strap. There is no claustrophobia, no nostril/nose bridge irritation, no facial rash, no facial numbness, no nosebleeding. The patient feels more refreshed upon waking and daytime alertness is improved. Energy levels are sustained until late afternoon, around 6 pm. At home, the patient sleeps from 12 am to 7 am and wakes up without an alarm. Snoring: moderate, since .Snorting: noChoking: noCoughing: noGasping: yesGagging: noSighing: noWitnessed apnea: yesTwitching or jerking of leg(s), arm(s), body, head: yesTeeth grinding: noTeeth clenching: noSleeptalking: noSleepwalking: noSleep crying: noBedwetting: yesTongue/lip/gum/cheek biting: noSleeping with open mouth: yesSleep paralysis: noHypnagogic hallucinations: noHypnopompic hallucinations: noVivid dreams: yesDifficulty with sleep onset: noDifficulty with sleep maintenance: yesSleep interruptions: nocturia x 4Patient wakes up with: fatigue, xerostomia, hoarse voice, mobility impairment, dexterity impairmentDaytime cataplexy: noMorning hypersomnolence: noAfternoon hypersomnolence: yesCaffeine sources in diet: coffee 3.5 cups per day, soda 16 oz per day Associated medical and psychiatric conditions:Congestive heart failure: noCoronary artery disease: noMyocardial infarction: noHypertension: yesStroke: noBronchial asthma: noChronic obstructive pulmonary disease: noDepression: yesBipolar disorder: noAnxiety: yesPanic disorder: noPosttraumatic stress disorder: noAttention deficit and hyperactivity disorder: noObsessive Compulsive disorder: noSchizophrenia: noSchizoaffective disorder: noPersonality disorder: noChronic analgesic use: noChronic sedative/hypnotic use: no EPWORTH SLEEPINESS SCALE (ESS) CHANCE OF DOZING SCORE0 = would never doze1 = slight chance of dozing2 = moderate chance of dozing3 = high chance of dozing SITUATION AND CHANCE OF DOZINGSitting and reading - 2Watching television - 3Sitting inactive in a public place (e.g. a theater or meeting) - 1As a passenger in a car for an hour without a break - 3Lying down to rest in the afternoon when circumstances permit - 3Sitting and talking to someone - 1Sitting quietly after lunch without alcohol - 1In a car, while stopped for a few minutes in the traffic - 2TOTAL SCORE 16Subjectively, patient has a moderate chance of dozing. Devin Benitez MD [address] [place] [address], [place] [address], [place], [address], [place] [employer] 01/17/2024 14:08:16 03/21/2024 text/html . Patient is a 73-year-old female diabetic shoe returns the office for follow-up on diabetic foot care. Patient states overall she is doing better. Patient states that she developed worsening wound to the great toe over the holiday she states that she was admitted to [facility] and underwent a amputation of the right great toe. Patient presents with a well-healed toe amputation. Patient has a new small wound to the dorsal 2nd toe of the right foot without acute infection. Patient states that she also has developing frictional rubbing the left 2nd toe due to plantar contracture of the toe. I did express that she needs to obtain different shoe gear for offloading that are extra depth shoes which she states she is going to have done this week. Patient denies any other complaints. Clifton Saravia DPM [address] [address], [place], [address], [facility] - [employer] 03/21/2024 14:52:17 OBGyn Episode No OBEpisode recorded.
--- OUTSIDE RECORDS SUMMARY | 2024-04-04 15:20 | XMS_ITS | Encounter Summary ---
Author Organization [facility] Address [address] [place] [address] Care Team Providers Care Induction Heating Equipment Setter Name Role Phone Charles Armendariz DO Primary Care Provider Encounter Details Date Type Department Care Team (Late Contact Info) Description 09/03/2007 Outpatient Historical HIS AUDIOLOGY Conversion, History Unspecified Hearing Loss Social History Tobacco Use Types Packs/Day Years Used Date Smoking Tobacco: Never Assessed Comments Unknown Sex and Gender Information Value Date Recorded Sex Assigned at Not on file Legal Sex Female 3:40 AM [employer] Gender Identity Not on file Sexual Orientation Not on file documented as of this encounter Plan of Treatment Upcoming Encounters Date Type Department Care Team (Late st Contact Info) Description 05/22/2024 9:45 AM CDT Office Visit [facility] Oncology and Hematology - Kevin [address] [facility] [address] [place] [address] Ray Richards MD [address] [facility] [address] [place] [address] documented as of this encounter Visit Diagnoses Diagnosis Unspecified hearing loss documented in this encounter Care Teams Induction Heating Equipment Setter Relationship Specialty Start Date End Date Charles Armendariz DO [address] [facility] [address] [place] [address] PCP - General Internal Medicine 11/04/22 documented as of this encounter
--- OUTSIDE RECORDS SUMMARY | 2024-04-04 15:20 | XMS_ITS | Clinical Summary ---
Author Organization [facility] Address [address] [place] [address] Care Team Providers Care Cathead Worker Name Role Phone Charles Armendariz DO Primary Care Provider [phone] David Vanegas MD Unavailable [phone] Allergies Active Allergy Reactions Criticality Noted Date Comments Ciprofloxacin Nausea only Low 09/08/2022 Daptomycin Diarrhea Low 06/29/2020 Doxycycline Unknown Low 09/19/2019 Canagliflozin Diarrhea Low 10/28/2021 Empagliflozin Diarrhea Low 04/21/2021 Lisinopril Cough Low 08/13/2018 Semaglutide Diarrhea High 01/27/2021 Povidone-Iodine Rash Medium 05/05/2017 Hpnizdn-Nqq-Esx Reductase Inhibitors Muscle pain Medium 11/05/2020 Valsartan Hives,Urticaria High 10/08/2015 Vancomycin Hives Medium Medications blood glucose diagnostic (ONETOUCH ULTRA TEST) strip test 1 by finger stick BS route before meals and bed time 400 strip 3 10/30/19 15 Active levothyroxine (SYNTHROID, LEVOTHROID) 100 mcg tablet take 1 tablet by oral route every day 0 0 02/25/20 15 Active lancets (onetouch ultrasoft) misc test blood sugar 4 times [...] Units total) by mouth every morning Active ze-xojdvrf-gpt- iron fm-FA-vitK 18 mg-400 mcg- 25 mcg [...] 03/15/2024 Assessment & Plan (03/15/2024 10:09 AM TARE MAN): - 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 She will call with any issues. CHF (congestive heart failure) (CMS/HCC) 024 Hyperlipidemia associated with type 2 diabetes m fuentes 10/24/2023 Assessment & Plan (10/24/2023 3:19 PM CDT): Chronic problem. Currently taking Atorvastatin 40mg. Last lipid panel: 03/09/23 LDL=37 W[place]=121. Positive TB test 09/19/2023 Assessment & Plan (01/01/2024 12:37 PM TARE MAN): - Unable to tolerate rifabutin as she [...] CBC and CMP in 1 month at [facility] - Ok to start biologic for rheumatoid arthritis after she has been on rifabutin for 1 month. Will forward note to rheumatology Class 2 severe obesity due t o excess calories with serious comorbidity and body mass index (BMI) of 39.0 to 39.9 in adult 03/09/2023 Assessment & Plan (03/09/2023 10:05 AM TARE MAN): Discussed healthy diet and importance of regular [...] 03/22/2022 Assessment & Plan (03/22/2022 8:59 AM TARE MAN): Chronic problem, stable. Discussed healthy diet and importance of regular physical activity (20- 30min/day, 150min/wk). Bunion 03/13/2022 Hammer toe 03/13/2022 Dystrophia unguium 03/13/2022 Foot callus 03/13/2022 History of amputation of left great toe ([facility]/HCC ) 03/13/2022 Stage 2 chronic kidney disease 10/28/2021 Overview (12/05/2022): cannot affored krenda and itol to sglt2 cannot affored krenda and itol to sglt2 Nocturia 04/14/2021 Palpitations 02/05/2021 Cardiac arrhythmia, unspecified 01/27/2021 Encounter for surgical after care following surgery of circulatory system 09/04/2020 Amputation of left great toe (CMS/HCC) Ulcer of toe of left foot, limited to breakdown of skin 07/02/2020 Overview (07/02/2020): Added automatically from request for surgery [id number] Median neuropathy, left 11/19/2019 Overview (11/19/2019): Added automatically from request for surgery [id number] Ulnar neuropathy of left upper extremity 020 Overview (11/19/2019): Added automatically from request for surgery [id number] Anxiety 05/24/2019 Asthma 05/24/2019 Brachial neuritis 05/24/2019 [...] 1.23 Assessment & Plan (03/09/2023 9:54 AM TARE MAN): Chronic problem. Currently taking levothyroxine 100mcg. 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 Assessment & Plan (03/09/2023 9:47 AM TARE MAN): Chronic problem. Currently taking gabapentin. Aware to check feet nightly & not go barefoot. Assessment & Plan (09/08/2022 11:14 AM CDT): Chronic problem. Currently taking gabapentin. Aware to check feet nightly. Assessment & Plan (03/21/2022 8:54 AM TARE MAN): Chronic problem. Currently taking gabapentin. Aware to check feet nightly. Assessment & Plan (05/13/2021 10:51 AM CDT): Foot care discussed Assessment & Plan (11/05/2020 2:29 PM CDT): Foot care discussed The patient does not feel that Neurontin helps of will discontinue Assessment & Plan (04/02/2020 1:40 PM TARE MAN): On Neurontin Foot care discussed Assessment & Plan (10/19/2017 10:52 AM CDT): Foot care discussed On neurointin Advised on seeing foot dr. Hyperlipidemia 10/19/2017 Assessment & Plan (03/09/2023 9:48 AM TARE MAN): Chronic problem. Current on atorvastatin 40mg daily. Last lipid panel: 11/04/21 LDL=26, BU=510. Will update labs today. Does not mychart. Verified phone #/address to contact re: results. Assessment & Plan (09/08/2022 11:14 AM CDT): Chronic problem. Current on atorvastatin 40mg daily. 11/04/21 LDL=26. No changes. Assessment & Plan (03/21/2022 8:53 AM TARE MAN): Chronic problem. Current on atorvastatin 40mg daily. [...] Lipitor Assessment & Plan (04/02/2020 1:37 PM TARE MAN): Goal of treatment , LDL cholesterol less [...] therapy. Assessment & Plan (03/12/2019 12:24 PM TARE MAN): Goal of treatment , LDL cholesterol less [...] UTD on DM eye exam (03/06/23 at [facility] in [place]). Discussed need to increase activity outside of [...] UTD on DM eye exam (03/06/23 at [facility]). Discussed need to increase activity outside of [...] infection. Assessment & Plan (03/09/2023 10:02 AM TARE MAN): Chronic problem, A1c worsening. A1c breanna from [...] re: results. DM eye exam 03/06/23 at [facility]. Letter sent to get copy of report. [...] housework. Assessment & Plan (03/22/2022 9:20 AM TARE MAN): Chronic problem, not at goal. Continue: Metformin [...] consider. Assessment & Plan (03/12/2019 12:23 PM TARE MAN): Hba1c was Lab Results Component Value Date [...] goal hba1c is under 7.0 to prevent oil heaterman diabetes complications ( eye , kidney and [...] Humalog. Assessment & Plan (03/30/2017 12:29 PM TARE MAN): A1c 6.6 but she does have anemia with elevated RDW. Bydureon since 12/2016 may have also helped to improve A1c but will be stopping that for now. Will evaluate again at next Ov. Assessment & Plan (01/17/2017 10:11 AM TARE MAN): Hba1c was 8.8 today, indicating inadequate DM [...] 01/17/2017 Assessment & Plan (03/09/2023 9:47 AM TARE MAN): Chronic problem, well controlled on current Metoprolol XL 25mg daily, furosemide 20mg daily Will update labs today. Does not mychart. Verified phone #/address to contact re: results. Assessment & Plan (09/08/2022 11:14 AM CDT): Chronic problem, well controlled on current Metoprolol XL 25mg daily, furosemide 20mg daily No changes at this time. Assessment & Plan (03/22/2022 9:00 AM TARE MAN): Chronic problem, well controlled on current metoprolol XL 25mg daily. No changes at this time. Assessment & Plan (07/02/2020 4:04 PM CDT): Goal blood pressure is less than 140/85 Low salt diet was discussed andd recommended The importance of daily aerobic exercise was also emphasized. Continue current meds Assessment & Plan (04/02/2020 1:38 PM TARE MAN): Goal blood pressure is less than 140/85 [...] MA. Assessment & Plan (03/12/2019 12:24 PM TARE MAN): Goal blood pressure is less than 140/85 [...] medications. Assessment & Plan (03/30/2017 12:33 PM TARE MAN): Controlled on current medications. Assessment & Plan (01/17/2017 10:12 AM TARE MAN): Goal blood pressure is less than 140/85 [...] finger 03/29/2011 Atherosclerotic heart diseas e of [place]kl[place] coronary artery without angina pectoris 09/09/2010 Chronic diastolic (congestive) heart failure 11/2009 Overview (05/15/2023): intomiguel lucia, ef too good for entrsto Resolved Problems Problem Noted Date Diagnosed Date Resolved Date Diabetic peripheral neuropathy ([facility]/HCC) 03/13/2022 08/09/2023 Morbid (severe) obesity due to [...] atorvastatin Assessment & Plan (03/30/2017 12:33 PM TARE MAN): Continue statin Obesity due to excess calories 11/05/2015 03/21/2022 Assessment & Plan (03/30/2017 12:20 PM TARE MAN): Current exercise will be reduced with completion of Pt. Advised to add walking or other home based exercise to current house work. Elevated erythrocyte sedimentation rate 12/27/2013 03/21/2022 Need for immunization against influenza 12/27/2013 03/21/2022 Encounters Date Type Department Care Team Description 04/04/2024 Telephone [facility] Rheumatology [address] [facility] 2nd Floor [address] [place] [phone] Arnulfo Krishnamurthy 04/02/2024 11:40 AM TARE MAN Office Visit [facility] Rheumatology [address] [facility] [address] [place] [phone] Shawanda De La Cruz NP Rheumatoid arthritis involving multiple sites with positive rheumatoid factor (CMS/HCC) (HCC) (Primary Dx); High risk medication use 04/02/2024 11:10 AM TARE MAN Clinical Support [facility] Bone Health [address] [place] [address] [place] [phone] Other specified disorders of bone density and structure, left thigh (Primary Dx); Rheumatoid arthritis involving multiple sites with positive rheumatoid factor (CMS/HCC) (HCC); 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; 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 03/15/2024 Telephone [facility] Infectious Diseases [address] [place] [address] [address] [place] [address] Bethany Watkins Lab results 03/15/2024 Orders Only [facility] Infectious Diseases [address] [place] [phone] Ana Laura Ramires NP LTBI (latent tuberculosis infection) (Primary Dx) 03/14/2024 9:09 AM TARE MAN - 03/14/2024 11:59 PM TARE MAN Hospital Encounter [facility] [address] [place] [address] Discharge Disposition: Discharge to home or self care 03/14/2024 8:30 AM TARE MAN Office Visit [facility] Infectious Diseases [address] [place] [phone] Ana Laura Ramires NP LTBI (latent tuberculosis infection) (Primary Dx) 02/19/2024 Telephone [facility] [address] [place] [address] [address], [place] [phone] Kim Baltazar MD 02/08/2024 Telephone [facility] Infectious Diseases [address] [place] [phone] Destiney Ac, PROPERTY TECHNICIAN 02/01/2024 Telephone [facility] Infectious Diseases [address] [place] [phone] Nelda Connors, [facility] 01/23/2024 Telephone [facility] Infectious Diseases [address] [place] [phone] Destiney Ac, PROPERTY TECHNICIAN 01/18/2024 Documentation [facility] Rheumatology [address] [place] [address] [address] [place] [phone] Arnulfo Krishnamurthy Eye Exam (7824 you akduman od ok for plaquenil) 01/11/2024 Telephone [facility] Diabetes and Endocrinology [address] [place] [phone] Stacy Hernandez NP Appointment/Schedules 01/09/2024 Orders Only [facility] Rheumatology [address] [place] [address] 2nd [address] [place] [phone] Arnulfo Krishnamurthy Rheumatoid arthritis involving multiple sites with positive rheumatoid factor (CMS/HCC) (HCC) 01/03/2024 1:00 PM TARE MAN Office Visit [facility] Rheumatology [address] [facility] [address] [place] [address] Shawanda De La Cruz, DEISY Rheumatoid arthritis involving multiple sites with positive rheumatoid factor (CMS/HCC) ([facility]) (Primary Dx); Osteopenia, unspecified location from Last 3 Months Immunizations Name Administration Dates Next Due Influenza, Quadrivalent, Spl it, Intramuscular 12/09/2019 Influenza, Trivalent, Preser vative Free, Intramuscular 01/01/2024,12/27/2013 Influenza, Unspecified 12/05/2022 Pfizer SARS-CoV-2 Monovalent Vaccination (12+ Yrs) DOWNING-READY TO USE 03/22/2021 Pfizer SARS-CoV-2 Monovalent Vaccination (12+ Yrs) PURPLE 09/28/2021,06/10/2020,05/08/2020 Tdap 09/14/2021 Surgical History Surgery Date Site/Laterality Comments KNEE ARTHROSCOPY 02/27/2002 - 02/26/2003 Left FOOT TENDON SURGERY 02/27/2010 - 02/26/2011 Left UMBILICAL HERNIA REPAIR 02/28/2004 - 02/26/2005 INCISIONAL HERNIA REPAIR x3, 2004, 2007, and 2011 CARPAL TUNNEL RELEASE Bilateral x3, 1989, 1989, and 2010 MULTIPLE TOOTH EXTRACTIONS 02/27/1997 - 02/26/1998 All teeth were extracted ULNAR NERVE TRANSPOSITION Right right- 2011, left- 04/2020 TRIGGER FINGER RELEASE 02/27/2011 - 02/27/2012 Right FOOT SURGERY 07/28/2018 - 08/26/2018 Right CARDIAC CATHETERIZATION No intervention, unknown date CATARACT EXTRACTION W/ INTRAOCULAR LENS IMPLANT left- 03/2021, right- 04/2022 ROTATOR CUFF REPAIR Right unknown date COLONOSCOPY last one around 2021 TOE AMPUTATION 06/27/2020 - 07/27/2020 Left big toe HAND SURGERY 05/04/2023 Right TOE AMPUTATION 02/02/2024 Right great toe Medical History Medical History Date Comments Chronic coronary artery disease Coronary artery disease s/p silent TX Hammer toe Hammer toe; Comm ents: MH 06/17/2015 - hammer toe surgery when pin was removed surgery site went septic. Rheumatoid arthritis (HCC) DM (diabetes mellitus) (HCC) HTN (hypertension) HLP (hyperkeratosis lenticul mykel perstans) GERD (gastroesophageal reflux disease) Hypothyroidism Asthma Ankle fracture SUJATHA positive Carpal tunnel syndrome of left wrist Elevated erythrocyte sedimentation rate Foot pain, bilateral High risk medication use Joint swelling Lower back pain Right foot pain Sjogren's syndrome (HCC) Trigger finger, acquired Claustrophobia Fibromyalgia fibromyalgia Sleep apnea pt uses CPAP mac juan j every night Type 2 diabetes mellitus (HCC) Covid 01/2022 Covid-19 02/2022 PFO (patent foramen ovale) in ca rdiology note diagnostics. Anemia Family History Medical History Relation Name Comments Lung cancer Father Family history of lung cancer - (Added by TW Conv) Diabetes Mother Family history of diabetes mellitus - (Added by TW Conv) Diabetes type II Other Family hist ory of Diabetes mellitus type 2; Stroke Sister Anesthesia problems Neg Hx Relation Name Status Comments Father Mother Other Sister Social History Tobacco Use Types Packs/Day Years [...] on file Legal Sex Female 12:14 AM TARE MAN Gender Identity Not on file Sexual Orientation Not on file Obstetrics History Last Filed Vital Signs Vital Sign Reading Time Taken Comments Blood Pressure 145/75 04/02/2024 11:20 AM TARE MAN Pulse 96 04/02/2024 11:20 AM TARE MAN Temperature 36.9 C (98.5 F) 04/02/2024 11:20 AM TARE MAN Respiratory Rate 21 12/08/2023 9:12 AM CDT Oxygen Saturation 100% 04/02/2024 11:20 AM TARE MAN Inhaled Oxygen Concentration - - Weight 98 kg (216 lb) 04/02/2024 11:20 AM TARE MAN Height 154.9 cm (5' 1 ) 04/02/2024 11:20 AM TARE MAN Body Mass Index 40.81 04/02/2024 11:20 AM TARE MAN Plan of Treatment Health Maintenance Due Date Last Done Comments Colon Cancer Screening-Colonoscopy 1950 Pneumococcal vaccine 65+ (1 of 2 - PCV) 1958 Hepatitis B Screening 1970 Zoster Vaccine (1 of 2) 06/20/1971 Well Visit 65+ 2017 Depression Screening 05/13/2022 05/13/2021, 07/02/2020, 11/25/2019, Additional history exists Covid-19 Vaccine (2023-2 5 season) 2023 09/28/2021, 03/22/2021, 06/10/2020, Additional history exists Breast Cancer Screening-Mammogram 12/01/2023 023, 10/07/2020 Dilated Eye Exam 03/06/2024 03/06/2023, , 02/18/2021, Additional history exists Albumin Creatinine Ratio, Urine 03/09/2024 03/09/2023, 11/04/2021, 11/06/2020, Additional history exists Lipid Panel 03/09/2024 03/09/2023, 090 09/2021, 11/06/2020, Additional history exists Hemoglobin A1C 04/25/2024 10/24/2023, 07/28, 03/09/2023, Additional history exists Foot Exam 10/23/2024 10/24/2023, 08/27, 11/04/2021, Additional history exists Fall Risk Assessment 12/07/2024 12/08/2023 eGFR 03/26/2025 03/26/2024, 02/27, 12/25/2023, Additional history exists Osteoporosis Screening-Bone Density Scan 04/02/2026 04/02/2024, 09/23/2021, 09/23/2021 DTaP/Tdap/Td Vaccine (2 - Td or Tdap) 09/15/2031 09/14/2021 Hepatitis C Screening Completed 07/03/2023, 020 Influenza Vaccine Completed 01/01/2024, , 12/09/2019, Additional history exists Medical Devices Implanted Type Area Poultry Offal Worker Device Identifier Shelf Expiration Date Model / Serial / Lot Allosource [id number] Freeze Dried Chips Graft 15ml Bone Cancellous Cortical - [id number] Implanted:Qty: 1 on 08/14/2018 by Pradip Whalen MD at [facility] Bone Allosource 08/28/2022 [id number] / / [id number] Allosource [id number] Allogro Freeze Dried Graft 15ml Bone Demineralized Bone Matrix - [id number] Implanted:Qty: 1 on 08/14/2018 by Pradip Whalen MD at [facility] Bone Allosource 03/15/2023 [id number] / / [id number] Intraocular Lens Bilateral : Eye Orthohelix [id number] Maxtorque 4mm 37.5mm Cannulated Self Drill Foot Ankle Long Thread - [id number] Implanted:Qty: 1 on 08/14/2018 by Pradip Whalen MD at [facility] Right: Foot Orthohelix MSD-010-40- 375L / / [employer] [id number] Cristobal .062in 9in Style 1 Wire Fixation Stainless Steel - [id number] Implanted:Qty: 1 on 08/14/2018 by Pradip Whalen MD at [facility] Right: First Toe [employer] [id number] / / Orthohelix Mxl-002-2a Maxlock Extreme 2 Hole Kelso Alpha Plate Bone Nonsterile - [id number] Implanted:Qty: 1 on 08/14/2018 by Pradip Whalen MD at [facility] Right: Foot Orthohelix MXL-002-2A / / Orthohelix [id number] Maxtorque 5.5mm 50mm Cannulated Self Drill Foot Ankle Long Thread - [id number] Implanted:Qty: 1 on 08/14/2018 by Pradip Whalen MD at [facility] Right: Foot Orthohelix MSD-010-55- 050L / / Orthohelix [id number] Maxtorque 5.5mm 55mm Cannulated Self Drill Foot Ankle Long Thread - [id number] Implanted:Qty: 1 on 08/14/2018 by Pradip Whalen MD at [facility] Right: Foot Orthohelix MSD-010-55- 055L / / Orthohelix [id number] Maxtorque 7mm 70mm Cannulated Self Drill Foot Ankle Petite Thread - [id number] Implanted:Qty: 1 on 08/14/2018 by Pradip Whalen MD at [facility] Right: Foot Orthohelix MSD-010-70- 070P / / Orthohelix [id number] 4mm 26mm Nonlock Foot Ankle Screw Bone Nonsterile Maxlock Extreme - [id number] Implanted:Qty: 2 on 08/14/2018 by Pradip Whalen MD at [facility] Right: Foot Orthohelix APPLIED PSYCHOLOGY CHAIR-011-402 6 / / Orthohelix [id number] Maxlock Extreme 4mm 28mm Nonlock Foot Ankle Screw Bone Nonsterile Latex Free - [id number] Implanted:Qty: 1 on 08/14/2018 by Pradip Whalen MD at [facility] Right: Foot Orthohelix APPLIED PSYCHOLOGY CHAIR-011-402 8 / / Orthohelix [id number] Maxlock Extreme 4mm 24mm Nonlock Foot Ankle Screw Bone Nonsterile - [id number] Implanted:Qty: 1 on 08/14/2018 by Pradip Whalen MD at [facility] Right: Foot Orthohelix APPLIED PSYCHOLOGY CHAIR-011-40- 24 / / Explanted Type Area Poultry Offal Worker Device Identifier Shelf Expiration Date Model / Serial / Lot Orthohelix Supervisor Metal Placing-040 [place] Wire Fixation Nonsterile Latex Free - [id number] Explanted:Qty: 2 on 08/14/2018 at [facility] Right: Foot Orthohelix APPLIED PSYCHOLOGY CHAIR-040 / / Procedures Procedure Name Priority Date/Time Associated Diagnosis Comments DEXA AXIAL SKELETON BONE DENSITY 1 OR MORE SITES Schedule Routine, Read Routine (OP Routine) 04/02/2024 11:04 AM TARE MAN Rheumatoid arthritis involving multiple sites with positive rheumatoid factor (CMS/HCC) (HCC) COMPREHENSIVE METABOLIC PANEL (OUTREACH) Routine 03/26/2024 1:16 PM TARE MAN LTBI (latent tuberculosis infection) CBC WITH AUTO DIFFERENTIAL Routine 03/26/2024 1:15 PM TARE MAN LTBI (latent tuberculosis infection) EGFR Routine 03/14/2024 9:09 AM TARE MAN LTBI (latent tuberculosis infection) DIFFERENTIAL AUTO Routine 03/14/2024 9:0 9 AM TARE MAN LTBI (latent tuberculosis infection) GLUCOSE, RANDOM (OUTREACH) Routine 03/14/2024 9:09 AM TARE MAN LTBI (latent tuberculosis infection) COMPREHENSIVE METABOLIC PANEL WITHOUT GLUCOSE (OUTREACH) Routine 03/14/2024 9:09 AM TARE MAN LTBI (latent tuberculosis infection) CBC WITH AUTO DIFFERENTIAL Routine 03/14/2024 9:09 AM TARE MAN LTBI (latent tuberculosis infection) COMPREHENSIVE METABOLIC PANEL (OUTREACH) Routine 03/14/2024 9:09 AM TARE MAN LTBI (latent tuberculosis infection) POCT HEMOGLOBIN A1C Routine 10/24/2023 2 :56 PM CDT Type 2 diabetes mellitus with hyperglycemia, with long-term current use of insulin (HCC) HEPATITIS PANEL, ACUTE Routine 07/03/2023 10:42 AM CDT High risk medication use LIPID PANEL Routine 03/09/2023 9:07 AM TARE MAN Type 2 diabetes mellitus with hyperglycemia, with long-term current use of insulin (CMS/HCC) (HCC) Hyperlipidemia associated with type 2 diabetes mellitus (HCC) ALBUMIN CREATININE RATIO, URINE Routine 03/09/2023 9:07 AM TARE MAN Type 2 diabetes mellitus with hyperglycemia, with long-term current use of insulin ([facility]/HCC) (HCC) DIABETES EYE EXAM Routine 03/06/2023 10:54 AM TARE MAN from Last 3 Months or Most Recently Relevant to Health Maintenance Results * Dexa Axial Skeleton Bone Density 1 or 2 Site (04/02/2024 11:04 AM TARE MAN) Anatomical Region Laterality Modality Body N/A Radiographic Sheron ging Narrative 04/02/2024 2:27 PM TARE MAN Patient Name: Aleyda Dobbs Date of : 1950 Date of scan: 04/02/2024 Bone mineral density was performed on a [employer] Discovery Densitometer. Based on machine cross-calibration and [...] mineral density scan were prepared by Agnes Valente)(Rafael)() CBDT who is accredited by the International Society of Clinical Densitometry. The overall patient assessment and scan interpretation were performed by Chacho Sanon M.D. who is certified by the International Society of Clinical Densitometry. [id number] Shawanda De La Cruz NP [facility] DXA PROCEDURES Final R esult * (ABNORMAL) Comprehensive metabolic panel (Outreach) (03/26/2024 1:16 PM TARE MAN) [facility] Glucose 173(H) 65 - 99 mg/dL Mobile Authentication[employer] trang Broussard Comment: For someone without known diabetes, a glucose value >125 mg/dL indicates that they may have diabetes and this should be confirmed with a follow-up test. Fasting reference interval BUN 37(H) 7 - 25 mg/dL [employer] trang Broussard Creatinine 1.39(H) 0.60 - 1.00 mg/dL [employer] trang Broussard eGFR 41(L) > OR = 60 mL/min/1.7 3m2 Hadley Broussard BUN/creat ratio 27(H) 6 - 22 (calc) Hadley Broussard Sodium 138 135 - 146 mmol/L Hadley Broussard Potassium 4.1 3.4 - 4.8 mmol/L Hadley Broussard Chloride 107 98 - 110 mmol/L Hadley Broussard CO2 25 20 - 32 mmol/L Hadley Broussard Calcium 9.0 8.6 - 10.4 mg/dL Hadley Broussard Protein, Total 7.1 6.4 - 8.4 g/dL Hadley Broussard Albumin 3.4(L) 3.6 - 5.1 g/dL Hadley Broussard Globulin 3.7 2.2 - 4.0 g/dL (calc) Hadley Broussard Alb/glob ratio 0.9 0.9 - 2.3 (calc) Hadley Broussard Bilirubin, total 0.4 0.2 - 1.2 mg/dL Hadley Brouss[facility] Alk phos 108 37 - 153 U/L [facility] Broussard AST 41(H) 10 - 35 U/L Hadley Broussard ALT (SGPT) 27 6 - 29 U/L [facility] Broussard Blood 03/26/2024 1:16 PM TARE MAN 03/26/2024 1:17 PM TARE MAN us Ana Laura Ramires C++ PROFESSOR LAB BLOOD ORDERABLES Valery rivera Result HADLEY Broussard [address] [place] [address] * (ABNORMAL) CBC with auto differential (03/26/2024 1:15 PM TARE MAN) WBC 4.5 3.8 - 10.8 Thousand/u L [facility] Broussard RBC, POC 3.35(L) 3.80 - 5.10 Million/uL [facility] Br[facility] Hgb 8.9(L) 11.7 - 15.5 g/dL [facility] Brouss[facility] Hct 30.1(L) 35.0 - 45.0 % [facility] MCV 89.9 80.0 - 100.0 fL [...] [facility] Blood 03/26/2024 1:15 PM TARE MAN 03/26/2024 1:15 PM TARE MAN us Ana Laura Ramires C++ PROFESSOR LAB BLOOD ORDERABLES Valery l Result [facility] [address] [place] [address] * Glucose, random (Outreach) (03/14/2024 9:09 AM TARE MAN) [facility] Glucose 137 70 - 199 mg/dL Comment: [...] last revised 2022. Blood 03/14/2024 9:09 AM TARE MAN 03/14/2024 1:24 PM TARE MAN us Ana Laura Ramires NP LAB BLOOD ORDERABLES Valery l Result [facility] GARCIA [facility] [place] [address] * (ABNORMAL) eGFR (03/14/2024 9:09 AM TARE MAN) eGFR 38(L) >=60 mL/min/1. 73 m2 Comment: [...] last reviewed 2020. Blood 03/14/2024 9:09 AM TARE MAN 03/14/2024 1:30 PM TARE MAN us Ana Laura Ramires C++ PROFESSOR LAB BLOOD ORDERABLES Valery l Result [facility] [place] [address] * Differential, auto (03/14/2024 9:09 AM TARE MAN) Neutrophil abs 3.8 1.5 - 6.5 K/cumm Imm gran abs 0.1 0.0 - 0.1 K/cumm [facility] Lymphocyte abs 2.2 0.8 - 3.3 K/cumm [facility] Monocyte abs 0.6 0.2 - 0.8 K/cumm [facility] Eosinophil abs 0.3 0.0 - 0.5 K/cumm [facility] Basophil abs 0.0 0.0 - 0.1 K/cumm [facility] Neutrophil pct 54.3 % [facility] Comment: Interpretive Data Percent cell count reference ranges are not reported, since discordance with absolute values may lead to misinterpretation of CBC data. Current Interpretive Data was last revised on 2017. Imm gran pct 0.9 % [facility] Comment: Interpretive Data Percent cell count reference ranges are not reported, since discordance with absolute values may lead to misinterpretation of CBC data. Current Interpretive Data was last revised on 2017. Lymphocyte pct 31.4 % [facility] Comment: Interpretive Data Percent cell count reference ranges are not reported, since discordance with absolute values may lead to misinterpretation of CBC data. Current Interpretive Data was last revised on 2017. Monocyte pct 8.0 % [facility] Comment: Interpretive Data Percent cell count reference ranges are not reported, since discordance with absolute values may lead to misinterpretation of CBC data. Current Interpretive Data was last revised on 2017. Eosinophil pct 4.8 % [facility] Comment: Interpretive Data Percent cell count reference ranges are not reported, since discordance with absolute values may lead to misinterpretation of CBC data. Current Interpretive Data was last revised on 2017. Basophil pct 0.6 % [facility] Comment: Interpretive Data Percent cell count reference ranges are not reported, since discordance with absolute values may lead to misinterpretation of CBC data. Current Interpretive Data was last revised on 2017. Blood 03/14/2024 9:09 AM TARE MAN 03/14/2024 1:24 PM TARE MAN Ana Laura Ramires C++ PROFESSOR LAB BLOOD ORDERABLES Valery l Result Performing Organization Address [facility] Co de Phone Number [facility] Department [place] [address] * (ABNORMAL) Comprehensive metabolic panel, without glucose (Outreach) (03/14/2024 9:09 AM TARE MAN) Sodium 141 135 - 145 mmol/L Potassium, pl 4.6 3.3 - 4.9 mmol/L [facility] Chloride 102 97 - 110 mmol/L [facility] CO2 28 22 - 32 mmol/L [facility] Anion gap 11 2 - 15 mmol/L [facility] BUN 29(H) 6 - 25 mg/dL [facility] Creatinine 1.48(H) 0.60 - 1.10 mg/dL [facility] Calcium 9.0 8.5 - 10.3 mg/dL [facility] Protein, pl 7.8 6.5 - 8.5 g/dL [facility] Albumin 3.5 3.5 - 5.0 g/dL [facility] Bilirubin, total 0.2 0.1 - 1.2 mg/dL [facility] Alk phos 176(H) 40 - 130 Units/L [facility] AST 88(H) 10 - 45 Units/L [facility] ALT 92(H) 7 - 45 Units/L [facility] Blood 03/14/2024 9:09 AM TARE MAN 03/14/2024 1:24 PM TARE MAN Ana Laura Ramires C++ PROFESSOR LAB BLOOD ORDERABLES Valery l Result Performing Organization Address [facility]/ZIP Co de Phone Number [facility] [place] [address] * (ABNORMAL) CBC with auto differential (03/14/2024 9:09 AM TARE MAN) [facility] WBC 6.9 3.8 - 9.9 K/cumm Hgb 8.5(L) 11.9 - 15.5 g/dL [facility] Hct 28.8(L) 35.6 - 45.5 % [facility] Plt 181 150 - 400 K/cumm [facility] MPV 12.0 9.1 - 12.3 fL [facility] RBC 3.27(L) 3.90 - 5.20 M/cumm [facility] MCV 88.1 81.3 - 96.4 fL [facility] MCH 26.0(L) 27.1 - 33.3 pg [facility] MCHC 29.5(L) 32.3 - 35.7 g/dL [facility] RDW CV 17.1(H) 11.1 - 14.9 % [facility] RDW SD 54.5(H) 35.7 - 48.1 fL [facility] NRBC abs 0.00 0.00 - 0.01 K/cumm [facility] Blood 03/14/2024 9:09 AM TARE MAN 03/14/2024 1:24 PM TARE MAN us Ana Laura Ramires C++ PROFESSOR LAB BLOOD ORDERABLES Valery l Result [facility] [place] [address] * (ABNORMAL) POCT hemoglobin A1c (10/24/2023 2:56 PM CDT) [facility] Hemoglobin A1C, POC 8.0 4.0 - 5.6 % Blood 10/24/2023 2:56 PM CDT us Stacy Hernandez C++ PROFESSOR POINT OF CARE TEST ORDERA BLES Final Result * Hepatitis panel, acute Blood (07/03/2023 10:42 AM CDT) [facility] Hep A IgM Nonreactive Nonreactive Hep B core IgM Nonreactive Nonreactive [facility] Hep C Ab Nonreactive Nonreactive [facility] Comment:Antibodies to HCV no t detected. Does NOT exclude the possibility of recent exposure to HCV. Current interpretive data was last revised on 21 HepBsAg Nonreactive Nonreactive [facility] Blood 07/03/2023 10:4 2 AM CDT 07/03/2023 2:00 PM CDT us Shawanda De La Cruz C++ PROFESSOR LAB MICROBIOLOGY - GENERAL ORDERABLES Final Result Performing Organization Address [facility] Co de Phone Number [facility] [place] [address] * (ABNORMAL) Albumin Creatinine Ratio, Urine (03/09/2023 9:07 AM TARE MAN) Albumin Ur 4,409.8 mg/L [facility] Comment: Interpretive Data No reference range established. Current interpretive data was last revised 2018. Creatinine Ur 116.5 mg/dL [facility] Comment: Interpretive Data No reference range established. Current interpretive data was last revised 2018. Albumin Creatinine Ratio, Ur 3,785(H) 1 - 29 mg/g [facility] Urine 03/09/2023 9:07 AM TARE MAN 03/09/2023 2:10 PM TARE MAN us Stacy Hernandez C++ PROFESSOR LAB URINE ORDERABLES Valery l Result Performing Organization Address City/[facility]/ZIP Co de Phone Number [facility] [address] [place] [address] * Lipid panel (03/09/2023 9:07 AM TARE MAN) Cholesterol 119 30 - 199 mg/dL [facility] Comment: Interpretive Data Ages < or = [...] on 2017. Triglycerides 104 <=149 mg/dL [facility] Comment: Interpretive Data Ages < or = [...] Pediatrics 2011;128:S213 2. NCEP Expert Panel. Circulation 2003;110:227 Current Interpretive Data was last revised on [...] Pediatrics 2011;128:S213 2. NCEP Expert Panel. Circulation 2003;110:227 Current Interpretive Data was last revised on [...] Pediatrics 2011;128:S213 2. NCEP Expert Panel. Circulation 2003;110:227 Current Interpretive Data was last revised on [...] 2 [facility] FRANK Blood 03/09/2023 9:07 AM TARE MAN 03/09/2023 2:10 PM TARE MAN Stacy Hernandez NP LAB BLOOD ORDERABLES Valery rivera Result [facility] [address] Department [place] [address] * (ABNORMAL) DIABETES EYE EXAM (03/06/2023 10:54 AM TARE MAN) us Historical Provider HEALTH MAINTENANCE Final Result from Last 3 Months or Most Recently Relevant to Health Maintenance Insurance MEDICARE [place] [employer] MEDICARE [facility] Address: [address] [address] [place] [employer] [place] [place] OPEN ACCESS MEDICARE [place] [employer] [facility] OPEN ACCESS Advance Directives For more information, please contact: [phone] * Full Code (Latest Code Status on File) Date Activated Date Inactivated Comments 07/20/2020 2:30 PM 07/21/2020 6:17 PM * Full Code Date Activated Date Inactivated Comments 08/14/2018 8:57 PM 08/15/2018 6:35 PM Care Teams Cathead Worker Relationship Specialty Start Date End Date Charles Armendariz DO PCP - General 05/27/16 David Vanegas MD [address] [place] [address] Consulting Physician Cardiology 07/20/18
== END 2024-04-04 15:10 | disposition home or self-care (01) ==
PROVIDERS: PCP Internal Medicine; Visit Provider Clinical Nurse Specialist
DX: I82.441 Acute embolism and thrombosis of right tibial vein (principal)
CPT/HCPCS: 93971

== ENCOUNTER 2024-05-01 10:54 | Outpatient (CLI) | payer MEDICARE, OTHER, BC, SELFPAY ==
--- NOTE | ~2024-05-01 | XR_ITS ---
XR clavicle RT Ordering provider: RADHA Zavala History: . T14.8XXA - Other injury of unspecified body region, initi... . Comparison: April 02, 2024 FINDINGS: BONES: No acute fracture or dislocation. Postoperative changes in the distal right clavicular. Osteop hyte formation is seen inferiorly in the acromion process. JOINT SPACES: Normal. No acromioclavicular separation. SOFT TISSUES: Normal. IMPRESSION: No acute osseous abnormality of the right clavicle. Postoperative changes in the distal right clavicl e. Reviewed, dictated and finalized at location A. CTURAL STEEL TRADES WORKER IMPRESSION: No acute osseous abnormality of the right clavicle. Postoperative changes in th e distal right clavicle.
--- NOTE | ~2024-05-01 | XR_ITS ---
XR elbow RT min 3V Ordering provider: RADHA Zavala History: . M25.521 - Pain in right elbow . Comparison: September 14, 2021 FINDINGS: BONES: No acute fracture or dislocation. JOINT SPACES: Normal. SOFT TISSUES: Unremarkable. No definite joint effusion. IMPRESSION: No acute osseous abnormality of the right elbow. Reviewed, dictated and finalized at location A. PY STRINGER
== END 2024-05-01 10:55 | disposition home or self-care (01) ==
PROVIDERS: PCP Orthopaedic Surgery; Visit Provider Clinical Nurse Specialist
DX: M25.521 Pain in right elbow (principal); T14.8XXA Other injury of unspecified body region, initial encounter; W19.XXXA Unspecified fall, initial encounter; Z98.890 Other specified postprocedural states
CPT/HCPCS: 73000; 73080

== ENCOUNTER 2024-06-04 00:41 | Day surgery (SDC) | payer OTHER, MEDICARE, BC, SELFPAY ==
[2024-05-17 15:56] VITALS: BMI 39.9
--- NOTE | 2024-05-17 16:12 | PC.NURSE ---
Addendum entered by Daksha Penn RN 05/28/24 08:30: Report to the Outpatient Waiting Room, entrance under the green pavilion located off [address], at time _2:45pm on date _06/04/24 . Planned Procedure Time: __3:45pm . Pt states no other changes in meds or allergies and was told to stop ASA a week prior, pt last dose was yesterday 05/27/[address] KEMP. PT understands she cannot drive for 24 hours post and needs ride both ways. Pt can have breakfast and take meds but then 2 hours prior to procedure nothing as listed below. CHRISTIAN Original Note: Report to the Outpatient Waiting Room, entrance under the green pavilion located off [address], at time _2:15pm on date _06/03/24 . Planned Procedure Time: __3:15pm .? Time changes happen often and if your time is changed the preop area will call you the afternoon before. - You and your visitor will be asked to self-screen and do not enter if you have any COVID symptoms. Please call surgeon if you need to reschedule. - A mask is optional within the hospital at this time. Patients may have food prior to 715am Light Breakfast and then no more food until time of surgery, then clear liquids (water, carbonated beverages, clear teas, apple juice) until 2 hours prior to surgery with a maximum of 20 ounces.and no smoking, or chewing tobacco (or any form of nicotine). No chewing gum, candy or mints 2 hours prior. . Take only the following medications with a SIP of water on the morning of surgery: __All scheduled am meds ok DO NOT STOP ANY OF YOUR OTHER PRESCRIPTION MEDICATIONS PRIOR TO SURGERY EXCEPT THE FOLLOWING Hold all vitamins and supplements for 3 days per anesthesiologist. Medications to discontinue per physician None ____ Date to take last dose None Please no make-up, nail mongolian, hairspray, perfume, deodorant, or body powder the day of surgery.? No jewelry (including any body piercings) or valuables the day of surgery, leave them at home.? Please take a shower or bath the night before, or the morning of, surgery with an antibacterial soap.? Wear comfortable, loose fitting clothing.? Children are encouraged to wear pajamas. - Jewelry must be removed prior to entering the operating room.? Rings and piercings that are not removed may be cut off. - The hospital will not accept responsibility for valuables.? - Please leave all valuables, including medications, at home the day of surgery. If you are going home after surgery, a licensed sulky driver must drive you home.? - NO public transportation without another adult if you receive anesthesia. - We recommend that an adult stay with you for 24 hours following discharge. - We also recommend that you do not drive, make important decision, drink alcoholic beverages, or take any drugs that were not prescribed by your health care provider for at least 24 hours after your discharge time. Pt is aware she cannot drive for 24 hours, she needs a ride her and to take her home. Follow any additional instructions given to you from your surgeon. Telephone instructions given to _Patient and asked if any additional questions and then verbalized understanding. Patient advised to call surgeon office or pre surgery nurse liaison [phone] if any additional questions.
--- NOTE | ~2024-06-04 | XR_ITS ---
EXAMINATION: XR fluoroscopy no charge DATE: 06/04/2024 15:37 INDICATION: Articular branch nerve block. TECHNIQUE: 6 fluoroscopic images of the right shoulder were obtained during procedure performed by Dr Libertad Briggs. Radiologist was not present for the imaging or procedure. The amount of fluoroscopy time used during this procedure was 2.6 minutes. Total DAP was 8.178 Gycm^2. COMPARISON: None. FINDINGS: Images demonstrate couple needles with needle tips and small amount of injected contrast projecting o janell the right coracoid process. Final image demonstrates a third needle and some injected contrast al steven the posterior lateral margin of the neck of the proximal right humerus. IMPRESSION: 1. Fluoroscopy utilized during pain management procedure at the right shoulder. See procedure note fo r further detail. Reviewed, dictated and finalized at location B. IMPRESSION: 1. Fluoroscopy utilized during pain management procedure at the right shoulder. See procedure note for further detail.
--- OUTSIDE RECORDS SUMMARY | 2024-06-04 00:45 | XMS_ITS | Clinical Summary ---
Author Organization [facility] Gigi Begumcharline Address [address] [facility] [place] [address] Care Team Providers Care Instructional Technology Coordinator Name Role Phone Charles Armendariz DO Primary Care Provider Allergies Active Allergy Reactions Criticality Noted Date Comments Canagliflozin Other (See Comments) Low 10/28/2021 Ciprofloxacin Nausea and Vomiting Low 09/08/2022 Daptomycin Diarrhea Low 06/29/2020 Doxycycline Other (See Comments),Unknown Low 09/19/2019 Empagliflozin Diarrhea Low 04/21/2021 Lisinopril Cough Low 08/13/2018 Povidone-Iodine Rash Medium 05/05/2017 Semaglutide Unknown High 01/27/2021 Nbriavz-Zfi-Dxs Reductase Inhibitors Muscle Pain Medium 11/05/2020 Valsartan [...] daily. Active fluticasone propionate (FLONASE) 50 mcg/spray [place], Suspension nasal inhaler Administer 2 Sprays in [...] Encounters Date Type Department Care Team Description 06/03/2024 Orders Only [facility] Oncology and Hematology - [place] [address] [place] [address] Ray Richards MD Chronic anemia 05/28/2024 External Device Data [facility] ABSTRACTION Provider, Abstract 05/28/2024 External Device Data [place] ABSTRACTION Provider, Abstract 05/28/2024 External Device Data [place] ABSTRACTION Provider, Abstract 05/22/2024 9:45 AM CDT Office Visit [facility] Oncology and Hematology - [place] [address] [place] [phone] Ray Richards MD Chronic anemia (Primary Dx) 05/22/2024 Orders Only [facility] Oncology and Hematology - [place] [address] [place] [address] Ray Richards MD 05/20/2024 Orders Only [facility] Oncology and Hematology - [place] [address] [place] [address] Ray Richards MD Chronic anemia 05/06/2024 Orders Only [facility] Oncology and Hematology - [place] [address] [place] [phone] Ray Richards MD Chronic anemia 05/01/2024 External Device Data [place] ABSTRACTION Provider, Abstract 05/01/2024 External Device Data [place] ABSTRACTION Provider, Abstract 04/30/2024 External Device Data [place] ABSTRACTION Provider, Abstract 04/27/2024 1:30 AM PROMOTIONAL MODEL - 04/27/2024 7:05 AM [facility] Emergency [facility] Emergency Department [address] [place] [phone] Tobias Holden MD Encounter for blood typing (Primary Dx); Fall, initial encounter; Traumatic hematoma of right elbow, initial encounter Discharge Disposition: Home or Self Care 04/27/2024 Travel 04/24/2024 Orders Only [facility] Oncology and Hematology - [place] [address] [place] [address] Ray Richards MD 04/22/2024 Orders Only [facility] Oncology and Hematology - [place] [address] [place] [address] Ray Richards MD Chronic anemia 04/16/2024 External Device Data [place] ABSTRACTION Provider, Abstract 04/11/2024 Orders Only [facility] Oncology and Hematology - [place] [address] [place] [address] Ray Rcihards MD Chronic anemia (Primary Dx) 04/09/2024 Orders Only [facility] Oncology and Hematology - [place] [address] [place] [address] Ray Richards MD Chronic anemia (Primary Dx) 04/08/2024 Orders Only [facility] Oncology and Hematology - [place] [address] [place] [address] Ray Richards MD Chronic anemia 03/28/2024 Orders Only [facility] Oncology and Hematology - [place] [address] [place] [address] Ray Richards MD 03/27/2024 9:15 AM PROMOTIONAL MODEL Office Visit [facility] Oncology and Hematology - [place] [address] [place] [address] Ray Richards MD Chronic anemia (Primary Dx) 03/27/2024 Orders Only [facility] Oncology and Hematology - [place] [address] [place] [address] Ray Richards MD 03/26/2024 External Device Data [place] ABSTRACTION Provider, Abstract 03/25/2024 Orders Only [facility] Oncology and Hematology - [place] [address] [place] [address] Ray Richards MD Chronic anemia 03/20/2024 External Device Data [place] ABSTRACTION Provider, Abstract 03/20/2024 External Device Data [place] ABSTRACTION Provider, Abstract 03/11/2024 Orders Only [facility] Oncology and Hematology - [place] [address] [place] [address] Ray Richards MD Chronic anemia from Last 3 Months Family History Medical [...] drink = 0.6 oz pur e alcohol) Feeling Safe Answer Date Recorded Are you in a relationship wi th someone who hurts you emotionally and/or physically? No 04/27/2024 Comments Unknown Sex and Gender Information Value Date Recorded Sex Assigned at Not on file Legal Sex Female 3:40 AM PROMOTIONAL MODEL Gender Identity Not on file Sexual Orientation Not on file Last Filed Vital Signs Vital Sign Reading Time Taken Comments Blood Pressure 132/61 05/22/2024 8:50 AM CDT Pulse 83 05/22/2024 8:50 AM CDT Temperature 36.2 C (97.2 F) 05/22/2024 8:50 AM CDT Respiratory Rate 15 05/22/2024 8:50 AM CDT Oxygen Saturation 94% 05/22/2024 8:50 AM CDT Inhaled Oxygen Concentration - - Weight 96.4 kg (212 lb 9.6 oz) 05/22/2024 8:50 A M CDT Height 154.9 cm (5' 1 ) 04/12/2023 1:08 PM PROMOTIONAL MODEL Body Mass Index 40.17 04/12/2023 1:08 PM PROMOTIONAL MODEL Plan of Treatment Upcoming Encounters Date Type Department Care Team (Late st Contact Info) Description 07/31/2024 9:30 AM CDT Office Visit [facility] Oncology and Hematology - [place] [address] [facility] [address] [place] [address] Ray Richards MD [address] [facility] [address] [place] [address] Health Maintenance Due Date Last Done Comments DIABETES MICROALBUMIN ANNUAL SCREEN 1970 LDL CHOLESTEROL ANNUAL 1970 ZOSTER VACCINE (1 of 2) 06/20/1971 FIT-DNA Q 3 years 1997 FIT/FOBT Q 1 year 1997 Flex Sig/CT Colonography Q 5 years 1997 PNEUMOCOCCAL VACCINE 50+ YEA RS (2 of 2 - PCV) 09/16/2010 09/16/2009 RSV VACCINE (60+ or ) (1 - Risk 60-74 years 1-dose series) 2012 COVID-19 Vaccine (5 - 4-2 5 season) 2023 09/28/2021, 03/22/2021, 06/10/2020, Additional history exists BREAST CANCER SCREENING 12/01/2023 12/01/19, 10/13/2021, 10/07/2020, Additional history exists Preventative Visit- Commercial 02/28/2024 DIABETES ANNUAL RETINAL EXAM 03/06/202409/2023, 08/22/2022, 04/05/2022, Additional history exists DIABETES ANNUAL FOOT EXAM 10/23/2024 10/24/2023 DIABETES HBA1C Q 6 MONTHS 10/31/20242024, 10/24/2023, 03/09/2023, Additional history exists COLORECTAL SCREENING 05/19/2030 05/19/2020 Colorectal Cancer Screening 05/19/2030 DTAP/TDAP/TD VACCINES (2 - T d or Tdap) 09/15/2031 09/14/2021, 02/28/2006 INFLUENZA VACCINE Completed 01/01/2024, , 05/27/2015, Additional history exists OSTEOPOROSIS SCREENING Completed , 04/02/2024, 09/23/2021, Additional history exists Procedures Procedure Name Priority Date/Time Associated Diagnosis Comments CBC WITH AUTODIFFERENTIAL Routine 05/21/2024 1:41 PM CDT TYPE AND SCREEN Stat 04/27/2024 3:[address] HEAD CERVICAL SPINE WO CONTRAST Stat 04/27/2024 3:02 AM PROMOTIONAL MODEL XR FOREARM 2 VW RIGHT Stat 04/27/2024 2:54 AM PROMOTIONAL MODEL XR HUMERUS 2+ VW RIGHT Stat 5 2:54 AM PROMOTIONAL MODEL XR KNEE 3 VW RIGHT Stat 04/27/2024 2: 54 AM PROMOTIONAL MODEL XR KNEE 3 VW LEFT Stat 04/27/2024 2:5 4 AM PROMOTIONAL MODEL XR CHEST PA OR AP 1 VW Stat 2:54 AM PROMOTIONAL MODEL VERIFICATION BLOOD GROUP Stat 025 2:21 AM PROMOTIONAL MODEL Encounter for blood typing PTT Stat 04/27/2024 2:21 AM PROMOTIONAL MODEL PROTIME-INR Stat 04/27/2024 2:21 AM PROMOTIONAL MODEL COMPREHENSIVE METABOLIC PANEL Stat 04/27/2024 2:21 AM PROMOTIONAL MODEL CBC WITH DIFFERENTIAL Stat 04/27/2024 2:21 AM PROMOTIONAL MODEL CBC WITH AUTODIFFERENTIAL Routine 04/24/2024 11:51 AM PROMOTIONAL MODEL BASIC METABOLIC PANEL Routine 03/27/2024 4:07 PM PROMOTIONAL MODEL CBC WITH DIFFERENTIAL Routine 03/27/2024 3:59 PM PROMOTIONAL MODEL IRON PANEL Routine 03/27/2024 11:52 AM PROMOTIONAL MODEL IRON, TIBC, AND PERCENT SATURATION Routine 03/26/2024 1:21 PM PROMOTIONAL MODEL BASIC METABOLIC PANEL Stat 03/26/2024 1:21 PM PROMOTIONAL MODEL Chronic anemia FERRITIN Routine 03/26/2024 1:21 PM PROMOTIONAL MODEL Chronic anemia CBC WITH DIFFERENTIAL Routine 03/26/2024 1:21 PM PROMOTIONAL MODEL Chronic anemia from Last 3 Months Results * CBC WITH AUTODIFFERENTIAL (05/21/2024 1:41 PM CDT) Only the most recent of2 resultswithin the time period is included. Blood us Ray Richards MD HEMATOLOGY ORDERABLES Final Res ult * TYPE AND SCREEN (04/27/2024 3:27 AM PROMOTIONAL MODEL) ABO GROUP B 04/27/2024 5:22 AM PROMOTIONAL MODEL [facility] RH (D) TYPE Positive 04/27/2024 5:22 AM PROMOTIONAL MODEL [facility] ANTIBODY SCREEN Negative 04/27/2024 5:22 AM PROMOTIONAL MODEL [facility] Blood Venipuncture / Unknown 04/27/2024 3:27 AM PROMOTIONAL MODEL 04/27/2024 3:35 AM PROMOTIONAL MODEL Tobias Holden MD BLOOD BANK ORDERABLES Edited Result - Final [facility] CLIA# [id number] [address] [facility] [place] [id number] * CT HEAD CERVICAL SPINE WO CONTRAST (04/27/2024 3:02 AM PROMOTIONAL MODEL) Anatomical Region Laterality Modality Head Computed Tomogra phy 04/27/2024 2:47 AM PROMOTIONAL MODEL Impressions 04/27/2024 3:22 AM PROMOTIONAL MODEL IMPRESSION: 1. No acute intracranial finding 2. Chronic small vessel skin changes 3. No evidence of cervical spine fracture. Spondylitic changes seen throughout DICTATION LOCATION: Location 4 Narrative 04/27/2024 3:[address] HEAD CERVICAL SPINE WO CONTRAST EXAM DATE: 04/27/2024 3:02 AM TECHNIQUE: Axial computed tomography of head and cervical spine without contrast . Coronal and sagittal reformats were obtained. The examination was performed with the adjustment of mA according to the patient size and/or use of iterative reconstruction technique. INDICATION: Head trauma, minor (Age >= 65y) COMPARISON: None FINDINGS: Head: No acute intracranial hemorrhage or extra-axial fluid collection. Basilar cisterns are patent without mass effect or midline shift. Patchy periventricular and subcortical white matter hypodensities are nonspecific but most compatible with chronic small vessel ischemia. Ventricular caliber is proportionate to degree of mild age-related atrophy.. No acute orbital finding. Paranasal sinuses and mastoid air cells are clear. Osseous structures are intact without fracture. Cervical spine: Skull base is intact. There is no evidence of acute fracture. Vertebral body heights are maintained. No subluxation. Posterior elements maintain anatomic alignment. There is spondylitic changes throughout with posterior disc osteophyte complex that C4-5, C5-6, C6-7. Included soft tissues otherwise unremarkable. Lung apices clear. Procedure Note Deanne Wade MD - 04/27/2024 CT HEAD CERVICAL SPINE WO CONTRAST EXAM DATE: 04/27/2024 3:02 AM TECHNIQUE: Axial computed tomography of head and cervical spine without contrast . Coronal and sagittal reformats were obtained. The examination was performed with the adjustment of mA according to the patient size and/or use of iterative reconstruction technique. INDICATION: Head trauma, minor (Age >= 65y) COMPARISON: None FINDINGS: Head: No acute intracranial hemorrhage or extra-axial fluid collection. Basilar cisterns are patent without mass effect or midline shift. Patchy periventricular and subcortical white matter hypodensities are nonspecific but most compatible with chronic small vessel ischemia. Ventricular caliber is proportionate to degree of mild age-related atrophy.. No acute orbital finding. Paranasal sinuses and mastoid air cells are clear. Osseous structures are intact without fracture. Cervical spine: Skull base is intact. There is no evidence of acute fracture. Vertebral body heights are maintained. No subluxation. Posterior elements maintain anatomic alignment. There is spondylitic changes throughout with posterior disc osteophyte complex that C4-5, C5-6, C6-7. Included soft tissues otherwise unremarkable. Lung apices clear. IMPRESSION: 1. No acute intracranial finding 2. Chronic small vessel skin changes 3. No evidence of cervical spine fracture. Spondylitic changes seen throughout DICTATION LOCATION: Location [address] ORDERABLES Final Result * XR FOREARM 2 VW RIGHT (04/27/2024 2:54 AM PROMOTIONAL MODEL) Anatomical Region Laterality Modality Upper Extremity Computed Radiogr aphy 04/27/2024 2:55 AM PROMOTIONAL MODEL Impressions 04/27/2024 9:10 AM PROMOTIONAL MODEL IMPRESSION: 1. No acute osseous abnormality identified. Subtle linear lucency in the radial head which is likely due to variant of trabeculation with a fracture felt to be unlikely. If there is clinical concern for radial head fracture would recommend follow-up dedicated elbow radiographs. 2. Focal soft tissue swelling involving the proximal forearm which is likely a hematoma. DICTATION LOCATION: [place] [address] - [facility] Narrative 04/27/2024 9:10 AM PROMOTIONAL MODEL XR FOREARM 2 VW RIGHT DATE: 04/27/2024 2:54 AM HISTORY: Right forearm pain. COMPARISON: None. EXAMINATION: Two views of the right forearm. FINDINGS: There is prominent soft tissue swelling involving the posterior lateral aspect of the proximal forearm which may relate to recent injury and underlying hematoma. There is no acute fracture or dislocation. There is some subtle linear lucency at the radial head on the AP view which is likely variant trabeculation with a fracture felt to be unlikely. If there is concern for a radial head fracture would recommend follow-up elbow radiographs. Moderate degenerative changes at the first carpometacarpal joint. Severe atherosclerosis. Procedure Note Charles Reese MD - 04/27/2024 XR FOREARM 2 VW RIGHT DATE: 04/27/2024 2:54 AM HISTORY: Right forearm pain. COMPARISON: None. EXAMINATION: Two views of the right forearm. FINDINGS: There is prominent soft tissue swelling involving the posterior lateral aspect of the proximal forearm which may relate to recent injury and underlying hematoma. There is no acute fracture or dislocation. There is some subtle linear lucency at the radial head on the AP view which is likely variant trabeculation with a fracture felt to be unlikely. If there is concern for a radial head fracture would recommend follow-up elbow radiographs. Moderate degenerative changes at the first carpometacarpal joint. Severe atherosclerosis. IMPRESSION: 1. No acute osseous abnormality identified. Subtle linear lucency in the radial head which is likely due to variant of trabeculation with a fracture felt to be unlikely. If there is clinical concern for radial head fracture would recommend follow-up dedicated elbow radiographs. 2. Focal soft tissue swelling involving the proximal forearm which is likely a hematoma. DICTATION LOCATION: [address] Tobias Holden MD DIAGNOSTIC IMAGING ORDERABLES Final Result * XR HUMERUS 2+ VW RIGHT (04/27/2024 2:54 AM PROMOTIONAL MODEL) Anatomical Region Laterality Modality Upper Extremity Computed Radiogr aphy 04/27/2024 2:54 AM PROMOTIONAL MODEL Impressions 04/27/2024 7:48 AM PROMOTIONAL MODEL IMPRESSION: 1. No acute osseous abnormality identified. DICTATION LOCATION: [address] Narrative 04/27/2024 7:48 AM PROMOTIONAL MODEL XR HUMERUS 2+ VW RIGHT DATE: 04/27/2024 2:54 AM HISTORY: Right arm pain. COMPARISON: None. EXAMINATION: Two views of the right humerus. FINDINGS: Moderate degenerative changes at the acromioclavicular and glenohumeral joints. No acute fracture or dislocation. Severe atherosclerosis. Procedure Note Charles Reese MD - 04/27/2024 XR HUMERUS 2+ VW RIGHT DATE: 04/27/2024 2:54 AM HISTORY: Right arm pain. COMPARISON: None. EXAMINATION: Two views of the right humerus. FINDINGS: Moderate degenerative changes at the acromioclavicular and glenohumeral joints. No acute fracture or dislocation. Severe atherosclerosis. IMPRESSION: 1. No acute osseous abnormality identified. DICTATION LOCATION: Location [address] [place] [address] Tobias Holden MD DIAGNOSTIC IMAGING ORDERABLES Final Result * XR KNEE 3 VW RIGHT (04/27/2024 2:54 AM PROMOTIONAL MODEL) Anatomical Region Laterality Modality Lower Extremity Computed Radiogr aphy 04/27/2024 2:54 AM PROMOTIONAL MODEL Impressions 04/27/2024 7:49 AM PROMOTIONAL MODEL IMPRESSION: Joint effusion without evidence of acute fracture or dislocation. Tricompartmental osteoarthritis. DICTATION LOCATION: Location 9 [facility] 04/27/2024 7:49 AM PROMOTIONAL MODEL EXAMINATION: XR KNEE 3 VW RIGHT DATE: 04/27/2024 2:54 AM HISTORY: Pain. See Reason for Exam COMPARISON: No prior study is available for comparison. FINDINGS: 3 images are submitted for interpretation. No acute fracture or dislocation is identified. There is moderate tricompartmental osteoarthritis. Small joint effusion is seen. The bone density is normal. Procedure Note Jordin Cedeno MD - 04/27/2024 EXAMINATION: XR KNEE 3 VW RIGHT DATE: 04/27/2024 2:54 AM HISTORY: Pain. See Reason for Exam COMPARISON: No prior study is available for comparison. FINDINGS: 3 images are submitted for interpretation. No acute fracture or dislocation is identified. There is moderate tricompartmental osteoarthritis. Small joint effusion is seen. The bone density is normal. IMPRESSION: Joint effusion without evidence of acute fracture or dislocation. Tricompartmental osteoarthritis. DICTATION LOCATION: Location [address] [place] [address] [place] Tobias Holden MD DIAGNOSTIC IMAGING ORDERABLES Final Result * XR KNEE 3 VW LEFT (04/27/2024 2:54 AM PROMOTIONAL MODEL) Anatomical Region Laterality Modality Lower Extremity Computed Radiogr aphy 04/27/2024 2:54 AM PROMOTIONAL MODEL Impressions 04/27/2024 7:47 AM PROMOTIONAL MODEL IMPRESSION: 1. Advanced tricompartmental degenerative changes. No acute osseous abnormality identified. DICTATION LOCATION: [address] Narrative 04/27/2024 7:47 AM PROMOTIONAL MODEL XR KNEE 3 VW LEFT DATE: 04/27/2024 2:54 AM HISTORY: Left knee pain. COMPARISON: None. EXAMINATION: Three views of the left knee. FINDINGS: Bones are demineralized. Advanced tricompartmental degenerative changes which is greatest laterally. No acute fracture or dislocation and no aggressive bone lesion. Small knee joint effusion. Severe atherosclerosis. Procedure Note Charles Reese MD - 04/27/2024 XR KNEE 3 VW LEFT DATE: 04/27/2024 2:54 AM HISTORY: Left knee pain. COMPARISON: None. EXAMINATION: Three views of the left knee. FINDINGS: Bones are demineralized. Advanced tricompartmental degenerative changes which is greatest laterally. No acute fracture or dislocation and no aggressive bone lesion. Small knee joint effusion. Severe atherosclerosis. IMPRESSION: 1. Advanced tricompartmental degenerative changes. No acute osseous abnormality identified. DICTATION LOCATION: [address] [place] Tobias Holden MD DIAGNOSTIC IMAGING ORDERABLES Final Result * XR CHEST PA OR AP 1 VW (04/27/2024 2:54 AM PROMOTIONAL MODEL) Anatomical Region Laterality Modality Chest Computed Radiogr aphy 04/27/2024 2:54 AM PROMOTIONAL MODEL Impressions 04/27/2024 7:47 AM PROMOTIONAL MODEL IMPRESSION: Clear lungs. DICTATION LOCATION: [address] Narrative 04/27/2024 7:47 AM PROMOTIONAL MODEL EXAMINATION: XR CHEST PA OR AP 1 VW DATE: 04/27/2024 2:54 AM HISTORY: Trauma. See Reason for Exam COMPARISON: No prior study is available for comparison. FINDINGS: The patient is rotated. There is no focal consolidation, pleural effusion, or pneumothorax. The cardiomediastinal silhouette is normal for portable technique. Procedure Note Jordin Cedeno MD - 04/27/2024 EXAMINATION: XR CHEST PA OR AP 1 VW DATE: 04/27/2024 2:54 AM HISTORY: Trauma. See Reason for Exam COMPARISON: No prior study is available for comparison. FINDINGS: The patient is rotated. There is no focal consolidation, pleural effusion, or pneumothorax. The cardiomediastinal silhouette is normal for portable technique. IMPRESSION: Clear lungs. DICTATION LOCATION: [address] Tobias Holden MD DIAGNOSTIC IMAGING ORDERABLES Final Result * VERIFICATION BLOOD GROUP (04/27/2024 2:21 AM PROMOTIONAL MODEL) Pathologist [facility] ABO GROUP B 04/27/2024 7:43 AM [facility] [place] [facility] RH (D) TYPE Positive 04/27/2024 7:43 AM [facility] Blood Venipuncture / Unknown 04/27/2024 2:21 AM PROMOTIONAL MODEL 04/27/2024 7:01 AM PROMOTIONAL MODEL Daksha Keith MD BLOOD BANK ORDERABLES Final Result [facility] -- [facility]# [id number] [address] [facility] [place] [address] * (ABNORMAL) CBC WITH DIFFERENTIAL (04/27/2024 2:21 AM PROMOTIONAL MODEL) Only the most recent of3 resultswithin the time period is included. WBC 6.1 4.0 - 9.8 K/uL 04/27/2024 2:54 AM PROMOTIONAL MODEL [facility] - [facility] RBC 3.73(L) 3.90 - 4.90 M/uL 04/27/2024 2:54 AM PROMOTIONAL MODEL [facility] - [facility] HEMOGLOBIN 10.2(L) 11.8 - 14.8 g/dL 04/27/2024 2:54 AM PROMOTIONAL MODEL [facility] - [facility] HEMATOCRIT 33.3(L) 35.5 - 44.0 % 04/27/2024 2:54 AM PROMOTIONAL MODEL [facility] MCV 89.3 82.0 - 99.0 fL 04/27/2024 2:54 AM PROMOTIONAL MODEL [facility] - [facility] MCH 27.3 27.2 - 32.6 pg 04/27/2024 2:54 AM PROMOTIONAL MODEL [facility] - . [facility] MCHC 30.6(L) 31.5 - 35.5 g/dL 04/27/2024 2:54 AM PROMOTIONAL MODEL [facility] - [facility] RDW 16.4(H) 11.5 - 14.5 % 04/27/2024 2:54 AM PROMOTIONAL MODEL [facility] - [facility] RDW-STDEV 53.3(H) 37.1 - 48.7 fL 04/27/2024 2:54 AM PROMOTIONAL MODEL [facility] PLATELETS 136(L) 140 - 350 K/uL 04/27/2024 2:54 AM PROMOTIONAL MODEL [facility] MPV 11.6 9.3 - 12.4 fL 04/27/2024 2:54 AM PROMOTIONAL MODEL [facility] - . [facility] NEUTROPHILS 63 % 04/27/2024 2:54 AM PROMOTIONAL MODEL [facility] - . [facility] LYMPHOCYTES 25 % 04/27/2024 2:54 AM PROMOTIONAL MODEL [facility] - [facility] [place] MONOCYTES 8 % 04/27/2024 2:54 AM PROMOTIONAL MODEL [facility] - [facility] [place] EOSINOPHILS 3 % 04/27/2024 2:54 AM PROMOTIONAL MODEL [facility] - . [place] BASOPHILS 0 % 04/27/2024 2:54 AM PROMOTIONAL MODEL [facility] - . [facility] IMMATURE GRANULOCYTES 1 % 04/27/2024 2:54 AM PROMOTIONAL MODEL [facility] - . [facility] Comment:IG (Immature Granulo cyte) count includes Metamyelocytes, Myelocytes, and Promyelocytes NEUTROPHIL ABSOLUTE 3.83 1.90 - 7.00 K/uL 04/27/2024 2:54 AM PROMOTIONAL MODEL [facility] - . [facility] LYMPHOCYTE ABSOLUTE 1.51 0.70 - 4.50 K/uL 04/27/2024 2:54 AM PROMOTIONAL MODEL [facility] - . [facility] MONOCYTE ABSOLUTE 0.51 0.10 - 1.30 K/uL 04/27/2024 2:54 AM [facility] - . [place] EOSINOPHIL ABSOLUTE 0.20 0.00 - 0.70 K/uL 04/27/2024 2:54 AM [facility] - . [place] BASOPHILS ABSOLUTE 0.02 0.00 - 0.20 K/uL 04/27/2024 2:54 AM [facility] [facility] - . [facility] IMMATURE GRANULOCYTES ABSOLUTE 0.04(H) 0.00 - 0.03 K/uL 04/27/2024 2:54 AM [facility] Blood Venipuncture / Unknown 04/27/2024 2:21 AM PROMOTIONAL MODEL 04/27/2024 2:27 AM PROMOTIONAL MODEL Tobias Holden MD HEMATOLOGY ORDERABLES Final R esult [facility] CLIA# [id number] [address] [place] [address] * PTT (04/27/2024 2:21 AM PROMOTIONAL MODEL) PTT 33.3 24.4 - 36.4 seconds 04/27/2024 3:15 AM [facility] Comment: PTT Therapeutic Range: Heparin Level PTT (seconds) <0.10 units/mL <55.8 0.10 - 0.30 units/mL 55.8 - 74.3 0.30 - 0.70 units/mL* 74.3 - 111.2* 0.70 - 1.00 units/mL 111.2 - 138.9 *corresponds to therapeutic range for unfractionated heparin Blood Venipuncture / Unknown 04/27/2024 2:21 AM PROMOTIONAL MODEL 04/27/2024 2:27 AM PROMOTIONAL MODEL Tobias Holden MD HEMATOLOGY ORDERABLES Final R esult [facility]# [id number] [address] [place] [address] * PROTIME-INR (04/27/2024 2:21 AM PROMOTIONAL MODEL) PROTIME 13.4 12.7 - 15.1 Seconds 04/27/2024 3:15 AM [facility] INR 1.0 0.9 - 1.1 04/27/2024 3:15 AM [facility] Blood Venipuncture / Unknown 04/27/2024 2:21 AM PROMOTIONAL MODEL 04/27/2024 2:27 AM PROMOTIONAL MODEL Narrative [facility] - 04/27/2024 3:15 AM PROMOTIONAL MODEL INR Therapeutic Range: Adult: 2.0 - 3.0 for pulmonary embolism or prophylaxis against venous thrombosis or systemic embolization. 2.0 - 3.0 for patients with tissue heart valves. 2.5 - 3.5 for patients with mechanical heart valves or post WA. Pediatric (12 years and under): 1.5 - 3.0 Although the target range in children is not well established, INR values of 1.5 - 3.0 are recommended for most patients. Higher values have been used in children with prosthetic cardiac valves and hereditary clotting disorders. Atlas (<3 days) therapeutic ranges have not been established. Tobias Holden MD HEMATOLOGY ORDERABLES Final R esult Performing Organization Address [facility] Co de Phone Number [facility]# [id number] [address] [place] [address] * (ABNORMAL) COMPREHENSIVE METABOLIC PANEL (04/27/2024 2:21 AM PROMOTIONAL MODEL) SODIUM 134(L) 136 - 145 mmol/L 04/27/2024 3:30 AM [facility] [place] [facility] POTASSIUM 4.4 3.5 - 5.0 mmol/L 04/27/2024 3:30 AM [facility] [place] [facility] CHLORIDE 101 98 - 107 mmol/L 04/27/2024 3:30 AM [facility] CO2 22 22 - 29 mmol/L 04/27/2024 3:30 AM [facility] CALCIUM 8.9 8.6 - 10.2 mg/dL 04/27/2024 3:30 AM [facility] BUN 43(H) 8 - 23 mg/dL 04/27/2024 3:30 AM [facility] CREATININE 1.49(H) 0.51 - 0.95 mg/dL 04/27/2024 3:30 AM [facility] Comment:The GFR result is no t clinically significant on patients <18 or >70 years of age. GLUCOSE 370(H) 74 - 99 mg/dL 04/27/2024 3:30 AM [facility] TOTAL PROTEIN 7.4 6.7 - 8.6 g/dL 04/27/2024 3:30 AM [facility] ALBUMIN 3.4(L) 3.5 - 5.2 g/dL 04/27/2024 3:30 AM [facility] BILIRUBIN TOTAL 0.2 0.2 - 1.1 mg/dL 04/27/2024 3:30 AM [facility] ALKALINE PHOSPHATASE 188(H) 35 - 104 U/L 04/27/2024 3:30 AM [facility] AST 40(H) <33 U/L 04/27/2024 3:30 AM [facility] ALT 21 <34 U/L 04/27/2024 3:30 AM [facility] GFR 37 mL/min/1.7 3 sq meter 04/27/2024 3:30 AM [facility] Comment:eGFR calculated with 2020 CKD-EPI equation. Vegetarian diet, extremely high or low muscle mass, and may affect results. Cystatin C with Glomerular Filtration Rate is a suitable alternative for these patients. ANION GAP 11 8 - 16 mmol/L 04/27/2024 3:30 AM [facility] Blood Venipuncture / Unknown 04/27/2024 2:21 AM PROMOTIONAL MODEL 04/27/2024 2:27 AM PROMOTIONAL MODEL Narrative [facility] - 04/27/2024 3:30 AM PROMOTIONAL MODEL Samples containing indocyanine green cause interferences on Total and/or Direct Bilirubin and must not be measured. Tobias Holden MD CHEMISTRY ORDERABLES Final Re sult [facility] CLIA# [id number] [address] [place] [address] * BASIC METABOLIC PANEL (03/27/2024 4:07 PM PROMOTIONAL MODEL) Only the most recent of2 resultswithin the time period is included. Blood Ray Richards MD CHEMISTRY ORDERABLES Final Resu lt * IRON PANEL (03/27/2024 11:52 AM PROMOTIONAL MODEL) Blood Ray Richards MD CHEMISTRY ORDERABLES Final Resu lt * (ABNORMAL) IRON, TIBC, AND PERCENT SATURATION (03/26/2024 1:21 PM PROMOTIONAL MODEL) IRON 42(L) 45 - 160 mcg/dL [facility] TIBC 318 250 - 450 mcg/dL (calc) [facility] IRON % SATURATION 13(L) 16 - 45 % (calc) [facility] Comment: Test Performed at: [facility] [address] [phone] Tres Lund MD 03/26/2024 1:21 PM PROMOTIONAL MODEL 03/26/2024 1:22 PM PROMOTIONAL MODEL Ray Richards MD CHEMISTRY ORDERABLES Final Resu lt [facility] [phone] [facility] [address] [place] [address] * FERRITIN (03/26/2024 1:21 PM PROMOTIONAL MODEL) FERRITIN 33 16 - 288 ng/mL [facility] Comment: Test Performed at: [facility] [address] [facility] [place] [address] Tres Lund MD Blood 03/26/2024 1:2 1 PM PROMOTIONAL MODEL 03/26/2024 1:22 PM PROMOTIONAL MODEL Ray Richards MD CHEMISTRY ORDERABLES Final Resu lt [facility] [phone] [facility] [address] [place] [place] [address] from Last 3 Months Insurance MEDICARE PART A AND B [employer] ACCESS/TRUE [employer] PPO [employer] HMO OPEN ACCESS [facility] OPEN ACCESS BS BLUE ACCESS/TRUE BLUE PPO MEDICARE PART A AND B Care Teams Instructional Technology Coordinator Relationship Specialty Start Date End Date Charles Armendariz DO [address] [address] PCP - General Internal Medicine 11/04/22
--- OUTSIDE RECORDS SUMMARY | 2024-06-04 00:45 | XMS_ITS | Clinical Summary ---
Author Organization [facility] Address [address] [place] [address] Care Team Providers Care Color Weigher Name Role Phone Tammy Arroyo RN Unavailable [phone] Charles Armendariz DO Primary Care Provider [phone] Source Comments [facility],non-owned Affiliates and Associated Physician Practices is amultiple site organization consisting of ambulatory clinics and hospital sitesin [place], [place], [place] and [place]. This disclosure is being madepursuant to the Care Everywhere program and may not contain all information available regarding this patient. Last updated 17.[facility] Allergies Active Allergy Reactions Criticality Noted [...] fluticasone propionate (FLONASE) 50 MCG/ACT nasal spray [place] 2 Sprays into each nostril once daily [...] 105.7 kg (233 lb) 05/05/2017 6:48 AM [facility] Height 161.3 cm (5' 3.5 ) 05/05/2017 6:48 AM [facility] Body Mass Index 40.63 05/05/2017 6:48 AM [facility] Plan of Treatment Health Maintenance Due Date [...] 60-74 years 1-dose series) 2012 COVID-19 VACCINE (1 - 2023-2 5 season) 2023 DEPRESSION SCREENING 02/28/2024 INFLUENZA VACCINE (Season Ended) 2024 05/27/19 16 HEPATITIS B VACCINE Aged Out No longe r eligible based on patient's age to complete this topic HIB VACCINE Aged Out No longer eligi ble based on patient's age to complete this topic HPV VACCINE Aged Out No longer eligi ble based on patient's age to complete this topic MENINGOCOCCAL (Group B) VACC INE SHARED DECISION-MAKING Aged Out No longer eligibl e based on patient's age to complete this topic MENINGOCOCCAL GROUPS A/C/Y/W VACCINE Aged Out No longer eligible b ased on patient's age to complete this topic Advance Directives * Full Code (Latest Code Status on File) Date Activated Date Inactivated Comments 05/26/2015 11:04 PM 06/01/2015 6:08 PM * Full Code Date Activated Date Inactivated Comments 05/26/2015 7:39 PM 05/26/2015 11:04 PM Care Teams Color Weigher Relationship Specialty Start Date End Date Charles Armendariz DO PCP - General 06/04/20 Tammy Arroyo, RN Clinical Research Analyst 05/26/15
--- OUTSIDE RECORDS SUMMARY | 2024-06-04 00:45 | XMS_ITS | Clinical Summary ---
Author Organization [facility] Address [address] [facility] [place] [address] Phone Care Team Providers Care State Inspector Name Role Phone Charles Armendariz DO Primary [...] Tablet Take 1 Tab by mouth daily. [id number] 1 Tab 0 6 Active azithromycin (ZITHROMAX) [...] Comments Hepatitis C Virus (HCV) Screening 1950 Mammogram 1950 Pneumococcal Immunization (50+ years) (1 of 2 - PCV) 06/20/1971 Zoster Immunization (1 of 2) 06/20/1971 Colonoscopy 1997 Colorectal Cancer Screening 1997 Cologuard 2002 Immunochemical Fecal Occult Blood 2002 Respiratory Syncytial Virus (RSV) Immunization (Adult) (1 - Risk 60-74 years 1-dose series) 2012 DEXA Bone Density 09/24/2023 09/23/2021 Influenza Immunization (#1) 2023 10/0 10/2022, 12/09/2019, 05/27/2015, Additional history exists SARS-COV-2 [...] age to complete this topic Insurance MEDICARE [facility] Care Teams State Inspector Relationship Specialty Start Date End Date Charles Armendariz DO [address] [facility] [place] [address] PCP - General Internal Medicine 11/05/15
--- OUTSIDE RECORDS SUMMARY | 2024-06-04 00:46 | XMS_ITS | Encounter Summary ---
Author Organization [facility] Address [address] [place] [address] Phone Care Team Providers Care Pin Maker Name Role Phone Bishop Starr MD Unavailable Charles Armendariz DO Primary Care Provider Reason for Visit * Reason Comments Medication Refill Encounter Details Date Type Department Care Team (Late st Contact Info) Description 06/28/2019 Refill [facility] [address] [place] [id number] Bishop Starr MD [address] [place] [address] Medication Refill Social History Tobacco [...] on filedocumented in this encounter Care Teams Pin Maker Relationship Specialty Start Date End Date Charles Armendariz DO [facility] [facility] [place] [address] PCP - General Internal Medicine 11/05/15 Bishop Starr MD Consulting Physician Pulmonary Disease 10/14/15 documented as of this encounter
--- OUTSIDE RECORDS SUMMARY | 2024-06-04 00:46 | XMS_ITS | CONTINUITY OF CARE DOCUMENT ---
Author Name yareli downs Address Unknown Organization [facility] Address [address] [place] [address] Phone [phone] Care Team Providers Care Study Director Name Role Phone David Vanegas MD Unavailable GILBERTO IRIZARRY DO Unavailable GILBERTO IRIZARRY DO Unavailable [phone] PROBLEMS Condition Status Date Provider Notes DIABETES MELLITUS;since 1997 active David Vanegas MD intol to sglt2 and arb and ozemopci, cannot affored [place] HTN-04/05 [id number] active - David turner MD OBESITY; active [...] Vanegas MD EDEMA;NEG VD 2009 completed - David Vanegas MD CAROTID ARTERY DISEASE;NEG DUPLEX completed [...] In-person encounter Office Visit David Vanegas MD [facility] Diastolic CHFPFOElevated LFT's 4 - 4 In-person encounter Office Visit David Vanegas MD [facility] CAD;neg carotdi dupelxCOPD;has lung mdTuberculosis 9 - 9 In-person encounter Office Visit David Vanegas MD [facility] Diastolic CHFAnemia of chronic diseaseMitral valve disorderShortness of breathPFO 1 - 1 In-person encounter Office Visit David Vanegas MD [facility] 5 - 5 In-person encounter Office Visit David Vanegas MD [facility] DIABETES MELLITUS;since 1997MicroalbuminuriaPVD; 3 - 3 In-person encounter Office Visit David Vanegas MD [facility] DIABETES MELLITUS;since 1997CAD;neg carotdi dupelxAnemia of chronic disease 1 - 1 In-person encounter Office Visit David Vanegas MD [facility] DIABETES MELLITUS;since 1997Arrhythmia;NML TSHRenal disease, chronic, mild 3 - 3 In-person encounter Office Visit David Vanegas MD [facility] 1 - 2 In-person encounter Office Visit David Vanegas MD [facility] Hypercholesterolemia;with high crp and low lpaExposure to SARS-associated coronavirus;had vaccine and neg swab 3 - 3 In-person encounter Office Visit David Vanegas MD [facility] 1 - 1 In-person encounter Office Visit David Vanegas MD [facility] Hypothyroidism;ON RX PER PRIMARYCOPD;has lung mdAnemia of chronic diseaseMicroalbuminuriaCOPDchronic thromboisi left lsv and gsvMitral valve disorder 6 - 6 In-person encounter Office Visit David Vanegas MD [facility] HTN ESSENTIAL;neg duplex and angioCAD;neg carotdi dupelxPVD;NEG HILDA 2009CAROTID ARTERY DISEASE;NEG DUPLEXCough due to VIET inhibitorshx of CARPAL TUNNEL SYNDROME;had bilat srugeryCONGENITAL HEART DISEASE;Tobacco use, quitAngina pectorisScreeningNeuropathic painPVD;Ulcer, chronic, other part of foot 5 - 5 In-person encounter Office Visit David Vanegas MD [facility] 7 - 7 In-person encounter Office Visit David Vanegas MD [facility] CAD;neg carotdi dupelx 7 - 7 In-person encounter Office Visit David Vanegas MD [facility] LFT, ABNORMAL;PRAVA STOPPED PRIMARY, fu per primayTobacco use, quit 2 - 2 In-person encounter Office Visit David Vanegas MD [facility] 6 - 6 In-person encounter Office Visit David Vanegas MD [facility] DIABETES MELLITUS;since 1998Tricuspid regurgitation, mildAnxiety 2 - 2 In-person encounter Office Visit David Vanegas MD [facility] SLEEP APNEA;Anemia of chronic disease 1 - 1 In-person encounter Office Visit David Vanegas MD [facility] HTN ESSENTIAL;neg duplex and angioCAD;neg carotdi dupelxDiastolic CHFSLEEP APNEA;Granulomatous lung disease 8 - 8 In-person encounter Office Visit David Vanegas MD [facility] 2 - 2 In-person encounter Office Visit David Vanegas MD [facility] 6 - 6 In-person encounter Office Visit David Vanegas MD [facility] OBESITY;HTN ESSENTIAL;neg duplex and angioCAD;neg carotdi dupelxHypercholesterolemia;with high crp and low lpaISCHEMIA; CXR 11, NML ANGIO 12Anemia of chronic diseaseCONGENITAL HEART DISEASE;MicroalbuminuriaVitamin D deficiency 8 - 8 In-person encounter Office Visit David Vanegas MD [facility] 1 - 1 In-person encounter Office Visit David Vanegas MD [facility] OBESITY;HTN ESSENTIAL;neg duplex and angioCAD;neg carotdi dupelxHypercholesterolemia;with high crp and low lpaDiastolic CHFCOPD;has lung md 5 - 5 In-person encounter Office Visit David Vanegas MD [facility] 4 - 4 In-person encounter Office Visit David Vanegas MD [facility] 2 - 2 In-person encounter Office Visit David Vanegas MD [facility] 1 - 1 In-person encounter Office Visit David Vanegas MD [facility] 8 - 2013/08/2 8 In-person encounter Office Visit David Vanegas MD [facility] 5 - 5 In-person encounter Office Visit David Vanegas MD [facility] HTN ESSENTIAL;neg duplex and angioCAD;neg carotdi dupelxHypercholesterolemia;with high crp and low lpaCAD;NEG CATH 2004, NEG NUC 2006 AND 11LFT, ABNORMAL;PRAVA STOPPED PRIMARY, fu per primayhx of CARPAL TUNNEL SYNDROME;had bilat srugeryCONGENITAL HEART DISEASE; 0 - 0 In-person encounter Office Visit David Vanegas MD [facility] Diastolic CHFISCHEMIA; CXR 11, NML ANGIO 12Anemia of chronic diseasehx of CARPAL TUNNEL SYNDROME;had bilat srugery 9 - 9 In-person encounter Office Visit David Vanegas MD [facility] CAD;neg carotdi dupelxHypothyroidism;ON RX PER PRIMARYDiastolic CHFISCHEMIA; CXR 11, NML ANGIO 12LFT, ABNORMAL;PRAVA STOPPED PRIMARY, fu per primay 5 - 5 In-person encounter Office Visit David Vanegas MD [facility] LFT, ABNORMAL;PRAVA STOPPED PRIMARY, fu per primay 4 - 4 In-person encounter Office Visit David Vanegas MD [facility] DIABETES MELLITUS;since 1997OBESITY;SOB; NEG CXR 2008CHEST PAIN-10/31 CATH NEG LV 70,?MICROVASCULAR DZCAD;neg carotdi dupelxPALPITATIONS:NEG, ECHO, CXR, HOLTER 2008FATIGUE;DOES NOT SEEM TO BE CARDIAC, TO SEE PRIMARYISCHEMIA; CXR 11, NML ANGIO 12TOBACCO ABUSE;NEG AMI 11COPD;has lung md 0 - 0 In-person encounter Office Visit David Vanegas MD [facility] HTN ESSENTIAL;neg duplex and angioHypothyroidism;ON RX PER PRIMARYDiastolic CHFCough due to VIET inhibitorsCAD;NEG CATH 2003, NEG NUC 2006 AND 11SLEEP APNEA; 1 - 2 In-person encounter Office Visit David Vanegas MD [facility] HTN-04/05 [id number];neg carotdi dupelxPVD;NEG HILDA 2009EDEMA;NEG VD 2008 0 - 0 In-person encounter Office Visit David Vanegas MD [facility] DIABETES MELLITUS;since 1997SOB; NEG CXR 2007CHEST PAIN-10/31 CATH NEG LV 70,?MICROVASCULAR DZCAD;neg carotdi dupelxPALPITATIONS:NEG, ECHO, CXR, HOLTER 2007 1 - 1 In-person encounter Office Visit David Vanegas MD [facility] CHEST PAIN-10/31 CATH NEG LV 70,?MICROVASCULAR DZCAD;neg carotdi dupelxHypercholesterolemia;with high crp and low lpaHypothyroidism;ON RX PER PRIMARYPALPITATIONS:NEG, ECHO, CXR, HOLTER 2007 VITAL SIGNS Date Observation Value Provider Body Mass Index (Ratio) 38.70 kg/m2 Aleksandar Vanegas MD blood pressure, diastolic 65 mm[Hg] Ghulam [facility] blood pressure, systolic 119 mm[Hg] rKistyn dunne [facility] blood pressure, cuff size regular Ghulam johnny [facility] oxygen saturation, oximetry 97 % [facility] pulse rate 94 /min [facility] weight E&M 222 [lb_av] [facility] height E&M 63.5 [in_i] [facility] Body Mass Index (Ratio) 38.36 kg/m2 [...] Ja rret blood pressure, systolic 131 mm[Hg] [facility] pulse rate 93 /min [facility] oxygen saturation, oximetry 93 % Angel respiratory rate E&M 16 /min Angel weight E&M 225 [lb_av] [facility] height E&M 63.5 [in_i] [facility] Body Mass Index (Ratio) 40.27 kg/m2 Aleksandar Vanegas MD blood pressure, diastolic 72 mm[Hg] Denita nkLog blood pressure, systolic 142 mm[Hg] Lexis og blood pressure, cuff size large [facility], diastolic 72 mm[Hg] rret blood pressure, systolic 142 mm[Hg] [facility] ret pulse rate 86 /min [facility] respiratory rate E&M 12 /min [facility] oxygen saturation, oximetry 94 % [facility] weight E&M 231 [lb_av] [facility] height E&M 63.5 [in_i] [facility] Body Mass Index (Ratio) 40.97 kg/m2 [...] blood pressure, systolic 173 mm[Hg] Cat herine Tarkio oxygen saturation, oximetry 95 % Ting Tarkio respiratory rate E&M 18 /min Catheri ne Fran pulse rate 80 /min Ting Tarkio weight E&M 216 [lb_av] Ting Fran blood pressure, cuff size regular Ca therine Fran height E&M 63.5 [in_i] Ting Fran Body Mass Index (Ratio) 37.14 kg/m2 Aleksandar Vanegas MD weight E&M 213 [lb_av] David Soriano Body Mass Index (Ratio) 39.58 kg/m2 Aleksandar Vanegas MD blood pressure, cuff size large Ke rri [facility] blood pressure, diastolic 60 mm[Hg] Ke rri [facility]ftex[facility] blood pressure, systolic 102 mm[Hg] Jae Saunders oxygen saturation, oximetry 94 % Marlene Castorenatexas [facility] respiratory rate E&M 18 /min Marlene vossenejorge [facility] pulse rate 99 /min Marlene Ervin [facility] weight E&M 227 [lb_av] Marlene Ervin [facility] height E&M 63.5 [in_i] Marlene Mueller [facility] Body Mass Index (Ratio) 39.92 kg/m2 Aleksandar Vanegas MD blood pressure, cuff size regular Wilfred ismaren Cory pulse rate 80 /min Ruba [place] blood pressure, diastolic 72 mm[Hg] Kr isty [place] blood pressure, systolic 130 mm[Hg] Catracho Ray oxygen saturation, oximetry 97 % Ruba Cory respiratory rate E&M 17 /min Ruba [place] weight E&M 229 [lb_av] Ruba Cory height E&M 63.5 [in_i] Ruba [place] Body Mass Index (Ratio) 39.92 kg/m2 Aleksandar [...] [in_i] Isael mansfield pulse rate #2 62 [facility] blood pressure, fisher tolic, second observation 75 mm[Hg] [facility] blood pressure, syst olic, second observation 132 mm[Hg] [facility] oxygen saturation, oximetry 98 % [facility] pulse rate 62 /min [facility], [facility] 75 mm[Hg] Vi ctoria iCscothiago blood pressure, systolic 132 mm[Hg] Bonifacio Peckthiago pulse rate #2 81 [facility] blood pressure, fisher tolic, second observation 75 mm[Hg] [facility] blood pressure, syst olic, second observation 156 mm[Hg] [facility] oxygen saturation, oximetry 98 % [facility] pulse rate 81 /min [facility] blood pressure, diastolic 75 mm[Hg] Vi [facility] Ted blood pressure, systolic 156 mm[Hg] Bonifacio [facility] pulse rate #2 84 [facility] blood pressure, fisher tolic, second observation 75 mm[Hg] [facility] blood pressure, syst olic, second observation 136 mm[Hg] [facility] oxygen saturation, oximetry 98 % [facility] pulse rate 84 /min [facility] blood pressure, diastolic 75 mm[Hg] Vi [facility] blood pressure, systolic 136 mm[Hg] [facility] pulse rate #2 82 [facility] blood pressure, fisher tolic, second observation 79 mm[Hg] [facility] blood pressure, syst olic, second observation 119 mm[Hg] [facility] oxygen saturation, oximetry 98 % [facility] pulse rate 82 /min [facility] blood pressure, diastolic 79 mm[Hg] Vi [facility] blood pressure, systolic 119 mm[Hg] Bonifacio yesenia [facility] Body Mass Index (Ratio) 40.38 kg/m2 Aleksandar [...] [in_i] Isael mansfield pulse rate #2 79 [facility] blood pressure, fisher tolic, second observation 84 mm[Hg] [facility], syst olic, second observation 136 mm[Hg] [facility] oxygen saturation, oximetry 98 % [facility] pulse rate 79 /min [place] blood pressure, diastolic 84 mm[Hg] Vi [facility] Tebid blood pressure, systolic 136 mm[Hg] [facility] #2 78 [place] blood pressure, fisher tolic, second observation 80 mm[Hg] [facility] blood pressure, syst olic, second observation 135 mm[Hg] [facility] oxygen saturation, oximetry 98 % [facility] pulse rate 78 /min [facility] blood pressure, diastolic 80 mm[Hg] Vi [facility] Tebid blood pressure, systolic 135 mm[Hg] Bonifacio [facility] Tebid pulse rate #2 84 [place] blood pressure, fisher tolic, second observation 87 mm[Hg] [facility] blood pressure, syst olic, second observation 147 mm[Hg] [facility] oxygen saturation, oximetry 98 % [facility] pulse rate 84 /min [place] d blood pressure, diastolic 87 mm[Hg] Vi [facility] Tebid blood pressure, systolic 147 mm[Hg] Bonifacio yesenia Tebid pulse rate #2 60 [facility] blood pressure, fisher tolic, second observation 82 mm[Hg] [facility] blood pressure, syst olic, second observation 133 mm[Hg] [facility] oxygen saturation, oximetry 98 % [place] Tebid pulse rate 60 /min [place] Tebid blood pressure, diastolic 82 mm[Hg] Vi ctoria Tebid blood pressure, systolic 133 mm[Hg] Bonifacio yesenia Tebid pulse rate #2 63 [place] bid blood pressure, fisher tolic, second observation 77 mm[Hg] [place]o Tebid blood pressure, syst olic, second observation 125 mm[Hg] Chayo Tebid oxygen saturation, oximetry 98 % [facility] pulse rate 63 /min [place] Tebid blood pressure, diastolic 77 mm[Hg] Vi cooria Tebid blood pressure, systolic 125 mm[Hg] [facility] #2 77 [facility] blood pressure, fisher tolic, second observation 74 mm[Hg] [facility] blood pressure, syst olic, second observation 142 mm[Hg] [facility] saturation, oximetry 98 % [facility] pulse rate 77 /min [facility] blood pressure, diastolic 74 mm[Hg] Vi [facility] Tebid blood pressure, systolic 142 mm[Hg] [facility] Tebid pulse rate #2 83 [facility] blood pressure, fisher tolic, second observation 76 mm[Hg] Ch[place]o Tebid blood pressure, syst olic, second observation 128 mm[Hg] [place] Tebid oxygen saturation, oximetry 98 % [facility] pulse rate 83 /min [place] Tebid blood pressure, diastolic 76 mm[Hg] Vi cooria Tebid blood pressure, systolic 128 mm[Hg] Bonifacio yesenia Tebid pulse rate #2 74 [facility] blood pressure, fisher tolic, second observation 70 mm[Hg] [facility] blood pressure, syst olic, second observation 123 mm[Hg] [place] d oxygen saturation, oximetry 98 % [place] d pulse rate 74 /min [place] d blood pressure, diastolic 70 mm[Hg] Vi ctoria Tebid blood pressure, systolic 123 mm[Hg] Bonifacio yesenia Tebid pulse rate #2 95 [facility] blood pressure, fisher tolic, second observation 82 mm[Hg] Hcayo d blood pressure, syst olic, second observation 137 mm[Hg] [facility] oxygen saturation, oximetry 98 % [place] pulse rate 95 /min [place] d blood pressure, diastolic 82 mm[Hg] Vi ctoria Tebid blood pressure, systolic 137 mm[Hg] Bonifacio yesenia Tebid pulse rate #2 81 [place] blood pressure, fisher tolic, second observation 76 mm[Hg] [facility] blood [facility], syst olic, second observation 132 mm[Hg] [facility] oxygen saturation, oximetry 98 % [place] pulse rate 81 /min [place] d blood pressure, diastolic 76 mm[Hg] Vi [facility] Tebid blood pressure, systolic 132 mm[Hg] Bonifacio yesenia Tebid pulse rate #2 74 [place] d blood pressure, fisher tolic, second observation 82 mm[Hg] [facility] blood pressure, syst olic, second observation 128 mm[Hg] [facility] oxygen saturation, oximetry 98 % [place] pulse rate 74 /min [place] d blood pressure, diastolic 82 mm[Hg] Vi [...] [in_i] Uzma Ileana pulse rate #2 79 [place] Tebid blood pressure, fisher tolic, second observation 72 mm[Hg] [place] Tebid blood pressure, syst olic, second observation 130 mm[Hg] [place] Tebid oxygen saturation, oximetry 98 % [facility] pulse rate 79 /min [facility] blood pressure, diastolic 72 mm[Hg] Vi ctoria Tebid blood pressure, systolic 130 mm[Hg] Bonifacio yesenia Tebid pulse rate #2 81 [place] Tebid blood pressure, fisher tolic, second observation 73 mm[Hg] [place] Tebid blood pressure, syst olic, second observation 127 mm[Hg] [place] Tebid oxygen saturation, oximetry 98 % [place] Tebid pulse rate 81 /min [place] Tebid blood pressure, diastolic 73 mm[Hg] Vi ctoria Tebid blood pressure, systolic 127 mm[Hg] Bonifacio yesenia Tebid pulse rate #2 89 [place] Tebid blood pressure, fisher tolic, second observation 74 mm[Hg] [place] Tebid blood pressure, syst olic, second observation 132 mm[Hg] [place] Tebid oxygen saturation, oximetry 98 % [place] Tebid pulse rate 89 /min [place] Tebid blood pressure, diastolic 74 mm[Hg] Vi ctoria Tebid blood pressure, systolic 132 mm[Hg] Bonifacio yesenia Tebid pulse rate #2 87 [place] Tebid blood pressure, fisher tolic, second observation 79 mm[Hg] [place]o Tebid blood pressure, syst olic, second observation 162 mm[Hg] [place]o Tebid oxygen saturation, oximetry 98 % [facility] pulse rate 87 /min [place] Tebid blood pressure, diastolic 79 mm[Hg] Vi ctoria Tebid blood pressure, systolic 162 mm[Hg] Bonifacio yesenia Tebid pulse rate #2 88 [place] Tebid blood pressure, fisher tolic, second observation 88 mm[Hg] [place] Tebid blood pressure, syst olic, second observation 166 mm[Hg] [facility], oximetry 98 % [facility] pulse rate 88 /min [place] Tebid blood pressure, diastolic 88 mm[Hg] Vi ctoria Tebid blood pressure, systolic 166 mm[Hg] Bonifacio yesenia Tebid pulse rate #2 77 [place] Tebid blood pressure, fisher tolic, second observation 81 mm[Hg] [place] Tebid blood pressure, syst olic, second observation 144 mm[Hg] [place] Tebid oxygen saturation, oximetry 98 % [place] Tebid pulse rate 77 /min [place] Tebid blood pressure, diastolic 81 mm[Hg] Vi ctoria Tebid blood pressure, systolic 144 mm[Hg] Bonifacio yesenia Tebid pulse rate #2 83 [place] Tebid blood pressure, fisher tolic, second observation 77 mm[Hg] [place] Tebid blood pressure, syst olic, second observation 152 mm[Hg] [facility], oximetry 98 % [facility] pulse rate 83 /min [place] Tebid blood pressure, diastolic 77 mm[Hg] Vi ctoria Tebid blood pressure, systolic 152 mm[Hg] Bonifacio yesenia Tebid pulse rate #2 76 [place] bid blood pressure, fisher tolic, second observation 85 mm[Hg] [place] Tebid blood pressure, syst olic, second observation 148 mm[Hg] [place]o Tebid oxygen saturation, oximetry 98 % [place] bid pulse rate 76 /min [place] Tebid blood pressure, diastolic 85 mm[Hg] Vi ctoria Tebid blood pressure, systolic 148 mm[Hg] Bonifacio yesenia Tebid pulse rate #2 69 [place] d blood pressure, fisher tolic, second observation 81 mm[Hg] [facility] blood pressure, syst olic, second observation 154 mm[Hg] [facility] oxygen saturation, oximetry 98 % [place] pulse rate 69 /min [place] Tebid blood pressure, diastolic 81 mm[Hg] Vi [facility] Tebid blood pressure, systolic 154 mm[Hg] Bonifacio yesenia Tebid pulse rate #2 62 [facility] blood pressure, fisher tolic, second observation 89 mm[Hg] [facility] blood pressure, syst olic, second observation 143 mm[Hg] [facility] oxygen saturation, oximetry 98 % [facility] pulse rate 62 /min [place] Tebid blood pressure, diastolic 89 mm[Hg] Vi ctoria Tebid blood pressure, systolic 143 mm[Hg] Bonifacio yesenia Tebid pulse rate #2 65 [facility] blood pressure, fisher tolic, second observation 88 mm[Hg] [facility] blood pressure, syst olic, second observation 132 mm[Hg] [facility] oxygen saturation, oximetry 98 % [facility] pulse rate 65 /min [place] Tebid blood pressure, diastolic 88 mm[Hg] Vi cooria Tebid blood pressure, systolic 132 mm[Hg] Bonifacio yesenia Tebid pulse rate #2 65 [place] bid blood pressure, fisher tolic, second observation 71 mm[Hg] [place] Tebid blood pressure, syst olic, second observation 127 mm[Hg] [place] Tebid oxygen saturation, oximetry 98 % [facility] pulse rate 65 /min [place] Tebid blood pressure, diastolic 71 mm[Hg] Vi [facility] Tebid blood pressure, systolic 127 mm[Hg] [facility] pulse rate #2 68 [facility] blood pressure, fisher tolic, second observation 69 mm[Hg] [facility] blood pressure, syst olic, second observation 132 mm[Hg] [facility] oxygen saturation, oximetry 98 % [facility] pulse rate 68 /min [facility] blood pressure, diastolic 69 mm[Hg] Vi [facility] Tebid blood pressure, systolic 132 mm[Hg] [facility] pulse rate #2 72 [facility] blood pressure, fisher tolic, second observation 79 mm[Hg] [place] Tebid blood pressure, syst olic, second observation 134 mm[Hg] [place] Tebid oxygen saturation, oximetry 98 % [facility] pulse rate 72 /min [facility] blood pressure, diastolic 79 mm[Hg] Vi [place] Tebid blood pressure, systolic 134 mm[Hg] Bonifacio yesenia Tebid pulse rate #2 80 [facility] blood pressure, fisher tolic, second observation 68 mm[Hg] [facility] blood pressure, syst olic, second observation 129 mm[Hg] [facility] oxygen saturation, oximetry 98 % [facility] pulse rate 80 /min [place] blood pressure, diastolic 68 mm[Hg] Vi ctoria Tebid blood pressure, systolic 129 mm[Hg] Bonifacio brownia Tebid pulse rate #2 88 [facility] blood pressure, fisher tolic, second observation 86 mm[Hg] [place] blood pressure, syst olic, second observation 138 mm[Hg] [facility] oxygen saturation, oximetry 98 % [place] pulse rate 88 /min [place] blood pressure, diastolic 86 mm[Hg] Vi [facility] Ted blood pressure, systolic 138 mm[Hg] Bonifacio brownia Tebid pulse rate #2 88 [facility] blood pressure, fisher tolic, second observation 77 mm[Hg] [facility] blood pressure, syst olic, second observation 156 mm[Hg] [facility] oxygen saturation, oximetry 98 % [facility] pulse rate 88 /min [place] blood pressure, diastolic 77 mm[Hg] Vi [facility] Ted blood pressure, systolic 156 mm[Hg] Bonifacio brownia Tebid pulse rate #2 86 [facility] blood pressure, fisher tolic, second observation 74 mm[Hg] [facility] blood pressure, syst olic, second observation 137 mm[Hg] [facility], [facility] 98 % [facility] pulse rate 86 /min [facility] blood [facility], diastolic 74 mm[Hg] Vi ctoria Tebid blood pressure, systolic 137 mm[Hg] Bonifacio brownia Tebid pulse rate #2 82 [facility] blood pressure, fisher tolic, second observation 67 mm[Hg] [facility] blood pressure, syst olic, second observation 125 mm[Hg] [facility] Body Mass Index (Ratio) 40.31 kg/m2 Darrel Underwood SENIOR ART DIRECTOR blood pressure, cuff size large Sh campbell Lemosdall SENIOR ART DIRECTOR blood pressure, diastolic 62 mm[Hg] Sh campbell Lemosdall SENIOR ART DIRECTOR blood pressure, systolic 130 mm[Hg] She jaye Lemosdall SENIOR ART DIRECTOR weight E&M 231.2 [lb_av] Cynthia Underwood SENIOR ART DIRECTOR oxygen saturation, oximetry 98 % [facility] pulse rate 82 /min [facility] blood pressure, diastolic 67 mm[Hg] Vi misaeloria blood pressure, systolic 125 mm[Hg] Bonifacio yesenia [facility] blood pressure, diastolic 69 mm[Hg] Tn deo Ortiz blood pressure, systolic 136 mm[Hg] Lizbeth brown Ortiz pulse rate 88 /min [place] [facility] oxygen saturation, oximetry 96 % [place] Ortiz respiratory rate E&M 16 /min [place] Ortiz Body Mass Index (Ratio) 40.27 kg/m2 Carline ren [facility] weight E&M 231 [lb_av] [place] Ortiz blood pressure, diastolic 60 mm[Hg] nola Demecs RN blood pressure, systolic 150 mm[Hg] Phong sta Demecs RN pulse rate 83 /min [place] Demecs R N oxygen saturation, oximetry 98 % [place] Demecs RN respiratory rate E&M 20 /min [place] Demecs RN Body Mass Index (Ratio) 39.40 kg/m2 Phongs ta Demecs RN weight E&M 226 [lb_av] Jaja Demecs R N blood pressure, diastolic 62 mm[Hg] nola Demecs RN blood pressure, systolic 126 mm[Hg] Phong logan Demecs RN pulse rate 89 /min Jaja Demecs R N oxygen saturation, oximetry 94 % [place] Demecs RN respiratory rate E&M 16 /min [place] Demecs RN Body Mass Index (Ratio) 39.47 kg/m2 [facility] E&M 226.4 [lb_av] [place] Demecs RN blood pressure, diastolic 70 mm[Hg] Kr isty [place] blood pressure, systolic 124 mm[Hg] Wilfredi stkitty Cory pulse rate 97 /min Ruba Cory oxygen saturation, oximetry 97 % Ruba Cory respiratory rate E&M 18 /min Ruba Cory Body Mass Index (Ratio) 39.65 kg/m2 Luis A ty [place] weight E&M 227.4 [lb_av] Ruba [place] blood pressure, diastolic 70 mm[Hg] Yordan Wiggins blood pressure, systolic 140 mm[Hg] Jaqueline Wiggins pulse rate 74 /min Isael [place] oxygen saturation, oximetry 97 % Isael Andersonenson respiratory rate E&M 16 /min Gracy Wiggins Body Mass Index (Ratio) 40.20 kg/m2 Gladis Wiggins weight E&M 230.6 [lb_av] Isael Anderson enson blood pressure, diastolic 60 mm[Hg] Sh erry Allouez SENIOR ART DIRECTOR blood pressure, systolic 138 mm[Hg] She jaye Lemosdall SENIOR ART DIRECTOR pulse rate, standing 78 /min Cynthia Underwood SENIOR ART DIRECTOR Body Mass Index (Ratio) 39.23 kg/m2 Darrel Underwood SENIOR ART DIRECTOR weight E&M 225.0 [lb_av] Cynthia Allouez SENIOR ART DIRECTOR Body Mass Index (Ratio) 39.44 kg/m2 Darrel Underwood SENIOR ART DIRECTOR blood pressure, diastolic 80 mm[Hg] Sh campbell Zepedall SENIOR ART DIRECTOR blood pressure, systolic 118 mm[Hg] She rrkitty Zepedall SENIOR ART DIRECTOR pulse rate 88 /min Cynthia Underwood SENIOR ART DIRECTOR weight E&M 226.2 [lb_av] Cynthia Underwood SENIOR ART DIRECTOR Body Mass Index (Ratio) 39.58 kg/m2 aCrline ren Ortiz blood pressure, diastolic 71 mm[Hg] Me deo Ortiz blood pressure, systolic 155 mm[Hg] Lizbeth kevin Ortiz pulse rate 92 /min [place] Ortiz oxygen saturation, oximetry 94 % A[place]cale Ortiz respiratory rate E&M 15 /min [place] Ortiz weight E&M 227 [lb_av] [place] Ortiz blood pressure, diastolic 61 mm[Hg] Sh campbell Underwood SENIOR ART DIRECTOR blood pressure, systolic 113 mm[Hg] She rrkitty Zepedall SENIOR ART DIRECTOR Body Mass Index (Ratio) 36.54 kg/m2 Darrel Underwood SENIOR ART DIRECTOR weight E&M 209.6 [lb_av] Cynthia Underwood SENIOR ART DIRECTOR Body Mass Index (Ratio) 36.96 kg/m2 Sanz i Nicky blood pressure, diastolic 61 mm[Hg] Ke rri Omeroer blood pressure, systolic 113 mm[Hg] Ker ri Omeroer pulse rate 83 /min Marlene Kelle lder oxygen saturation, oximetry 98 % Marlene Omeroer respiratory rate E&M 17 /min Marlene Michael escobedo weight E&M 212 [lb_av] Marlene Gruenenfe lder Body Mass Index (Ratio) 35.98 kg/m2 Darrel Underwood SENIOR ART DIRECTOR weight E&M 205.6 [lb_av] Cynthia Underwood SENIOR ART DIRECTOR Body Mass Index (Ratio) 37.27 kg/m2 Darrel Underwood SENIOR ART DIRECTOR weight E&M 213 [lb_av] Cynthia Underwood SENIOR ART DIRECTOR Body Mass Index (Ratio) 37.13 kg/m2 Darrel Underwood SENIOR ART DIRECTOR weight E&M 212.2 [lb_av] Cynthia Underwood SENIOR ART DIRECTOR blood pressure, diastolic 68 mm[Hg] Sh campbell Zepedall SENIOR ART DIRECTOR blood pressure, systolic 122 mm[Hg] She jaye Underwood SENIOR ART DIRECTOR Body Mass Index (Ratio) 37.27 kg/m2 Darrel Underwood SENIOR ART DIRECTOR weight E&M 213 [lb_av] Cynthia Underwood SENIOR ART DIRECTOR blood pressure, diastolic 72 mm[Hg] Sh campbell Zepedall SENIOR ART DIRECTOR blood pressure, systolic 122 mm[Hg] She jaye Underwood SENIOR ART DIRECTOR Body Mass Index (Ratio) 37.27 kg/m2 Darrel Underwood SENIOR ART DIRECTOR pulse rate 72 /min Cynthia Underwood SENIOR ART DIRECTOR respiratory rate E&M 18 /min Cynthia Underwood SENIOR ART DIRECTOR weight E&M 213 [lb_av] Cynthia Underwood SENIOR ART DIRECTOR blood pressure, diastolic, left arm 82 mm [...] NP weight E&M 197 [lb_av] Les awan SENIOR ART DIRECTOR height E&M 63.5 [in_i] Les awan SENIOR ART DIRECTOR blood pressure, diastolic 75 mm[Hg] Yordan george [...] blood pressure, systolic 135 mm[Hg] Ran dy Klien pulse rate #2 82 Jose McPherso n [...] pressure, fisher tolic, second observation 83 mm[Hg] Jsoe Kline blood pressure, syst olic, second observation [...] dy Kline pulse rate #2 90 [facility], fisher tolic, second observation 91 mm[Hg] [facility] blood pressure, syst olic, second observation 153 mm[Hg] [facility] oxygen saturation, oximetry 97 % [facility] pulse rate 87 /min [facility] blood pressure, diastolic 82 mm[Hg] Be [facility] blood pressure, systolic 143 mm[Hg] [facility] pulse rate #2 75 Jose oLreherso n blood pressure, fisher tolic, second observation [...] iron binding capacity, unsaturated 216 ug/dL [facility] [phone]/06 /07 iron binding capacity, total 285 ug/dL [facility] 124-290 3327/06 /07 lipoprotein, beta, serum, point, quantitative, calculated 34 mg/dL [facility] 0-99 very low density lipoproteins 21 mg/dL [facility] 5-40 HDL cholesterol, serum 54 mg/dL [facility] >39 triglyceride, serum, random 104 mg/dL [facility] 0-149 cholesterol, serum 109 mg/dL [facility] [phone]/09 /29 pro brain natriuretic peptide 135 pg/mL [facility] 0-450 international normalized ratio (INR) 1.0 [facility] 0.9-1.1 prothrombin time (patient) 9.9 Seconds [facility] 9.0-11.5 platelet count 163 Thousand/uL [facility] [phone]/09 /07 Absolute Basophils 0.0 cells/uL [facility] 0.0-0.2 [...] [facility] 3.5-5.1 sodium, serum 143 mmol/L [facility] [phone]/09 /07 creatinine, serum 0.8 mg/dL [facility] 0.5-0.9 [...] cell distribution width, size density 54.8 fL [facility] - immature granulocytes, percentage of total [...] - 23.0 blood glucose, random 82.0 mg/dL [facility] 74.[facility] - 99.0 red blood cell distribution [...] triglyceride, target level 150 mg/dL Cynthia Kj SENIOR ART DIRECTOR HDL cholesterol, serum, target level 40 mg/dL Cynthia Allouez SENIOR ART DIRECTOR LDL target level 70 mg/dL Cynthia Kj SENIOR ART DIRECTOR cholesterol, target level 200 mg/dL Cynthia Kj SENIOR ART DIRECTOR cholesterol/HDL ratio, serum 3.0 Cynthia Kj SENIOR ART DIRECTOR triglyceride, serum, fasting 252 mg/dL Cynthia Allouez SENIOR ART DIRECTOR HDL cholesterol, serum 52 mg/dL Cynthia Kj SENIOR ART DIRECTOR LDL cholesterol, serum 53 mg/dL Cynthia Allouez SENIOR ART DIRECTOR cholesterol, serum 155 mg/dL Cynthia Kj SENIOR ART DIRECTOR triglyceride, target level 150 mg/dL Cynthia Allouez SENIOR ART DIRECTOR HDL cholesterol, serum, target level 40 mg/dL Cynthia Allouez SENIOR ART DIRECTOR LDL target level 70 mg/dL Cynthia Kj SENIOR ART DIRECTOR cholesterol, target level 200 mg/dL Cynthia Allouez SENIOR ART DIRECTOR cholesterol/HDL ratio, serum 3.4 Cynthia Kj SENIOR ART DIRECTOR triglyceride, serum, fasting 153 mg/dL Cynthia Allouez SENIOR ART DIRECTOR HDL cholesterol, serum 43 mg/dL Cynthia Allouez SENIOR ART DIRECTOR LDL cholesterol, serum 71 mg/dL Cynthia Kj SENIOR ART DIRECTOR cholesterol, serum 144 mg/dL Cynthia Allouez SENIOR ART DIRECTOR cholesterol/HDL ratio, serum 3.0 Cynthia Kj SENIOR ART DIRECTOR triglyceride, serum, fasting 84 mg/dL Cynthia Kj SENIOR ART DIRECTOR HDL cholesterol, serum 50 mg/dL Cynthia Allouez SENIOR ART DIRECTOR LDL cholesterol, serum 84 mg/dL Cynthia Allouez SENIOR ART DIRECTOR cholesterol, serum 154 mg/dL Cynthia Allouez SENIOR ART DIRECTOR TOTAL NON-HDL-C (LDL VLDL) 140 Cynthia Allouez SENIOR ART DIRECTOR cholesterol/HDL ratio, serum 4.9 Cynthia Allouez SENIOR ART DIRECTOR cholesterol, serum 176 mg/dL Cynthia Kj SENIOR ART DIRECTOR Normal triglyceride, target level 150 mg/dL Cynthia Allouez SENIOR ART DIRECTOR HDL cholesterol, serum, target level 40 mg/dL Cynthia Allouez SENIOR ART DIRECTOR triglyceride, serum, fasting 202 mg/dL Cynthia Allouez SENIOR ART DIRECTOR High HDL cholesterol, serum 36 mg/dL Cynthia Allouez SENIOR ART DIRECTOR Low LDL cholesterol, serum 100 mg/dL Cynthia Allouez SENIOR ART DIRECTOR High LDL target level 70 mg/dL Cynthia Kj SENIOR ART DIRECTOR cholesterol, target level 200 mg/dL Cynthia Allouez SENIOR ART DIRECTOR triglyceride, target level 150 mg/dL Cynthia Kj SENIOR ART DIRECTOR HDL cholesterol, serum, target level 40 mg/dL Cynthia Kj SENIOR ART DIRECTOR LDL target level 70 mg/dL Cynthia Kj SENIOR ART DIRECTOR cholesterol, target level 200 mg/dL Cynthia Kj SENIOR ART DIRECTOR TOTAL NON-HDL-C (LDL VLDL) 142 Cynthia Allouez SENIOR ART DIRECTOR cholesterol/HDL ratio, serum 5.3 Cynthia Kj SENIOR ART DIRECTOR triglyceride, serum, fasting 229 mg/dL Cynthia Kj SENIOR ART DIRECTOR High HDL cholesterol, serum 33 mg/dL Cynthia Allouez SENIOR ART DIRECTOR Low LDL cholesterol, serum 96 mg/dL Cynthia Kj SENIOR ART DIRECTOR High cholesterol, serum 175 mg/dL Cynthia Allouez SENIOR ART DIRECTOR TOTAL NON-HDL-C (LDL VLDL) 129 Cynthia Allouez SENIOR ART DIRECTOR cholesterol/HDL ratio, serum 4.2 Cynthia Allouez SENIOR ART DIRECTOR cholesterol, serum 169 mg/dL Cynthia Kj SENIOR ART DIRECTOR triglyceride, target level 150 mg/dL Cynthia Allouez SENIOR ART DIRECTOR HDL cholesterol, serum, target level 40 mg/dL Cynthia Kj SENIOR ART DIRECTOR triglyceride, serum, fasting 187 mg/dL Cynthia Kj SENIOR ART DIRECTOR High HDL cholesterol, serum 40 mg/dL Cynthia Kj SENIOR ART DIRECTOR Normal LDL cholesterol, serum 92 mg/dL Cynthia Allouez SENIOR ART DIRECTOR High LDL target level 70 mg/dL Cynthia Kj SENIOR ART DIRECTOR cholesterol, target level 200 mg/dL Cynthia Allouez SENIOR ART DIRECTOR TOTAL NON-HDL-C (LDL VLDL) 99 Cynthia Kj SENIOR ART DIRECTOR cholesterol/HDL ratio, serum 3.9 Cynthia Kj SENIOR ART DIRECTOR cholesterol, serum 131 mg/dL Cynthia Kj SENIOR ART DIRECTOR Normal triglyceride, target level 150 mg/dL Cynthia Allouez SENIOR ART DIRECTOR HDL cholesterol, serum, target level 40 mg/dL Cynthia Allouez SENIOR ART DIRECTOR triglyceride, serum, fasting 341 mg/dL Cynthia Allouez SENIOR ART DIRECTOR High HDL cholesterol, serum 34 mg/dL Cynthia Allouez SENIOR ART DIRECTOR Low LDL cholesterol, serum 30 mg/dL Cynthia Allouez SENIOR ART DIRECTOR Normal LDL target level 70 mg/dL Cynthia Kj SENIOR ART DIRECTOR cholesterol, target level 200 mg/dL Cynthia Allouez SENIOR ART DIRECTOR TOTAL NON-HDL-C (LDL VLDL) 99 Cynthia Allouez SENIOR ART DIRECTOR alanine aminotransferase (SGPT), serum 39 1/L Cynthia Kj SENIOR ART DIRECTOR aspartate aminotransferase (SGOT), serum 55 1/L Cynthia Kj SENIOR ART DIRECTOR cholesterol/HDL ratio, serum 3.8 Cynthia Kj SENIOR ART DIRECTOR cholesterol, serum 134 mg/dL Cynthia Allouez SENIOR ART DIRECTOR Normal triglyceride, target level 150 mg/dL Cynthia Kj SENIOR ART DIRECTOR HDL cholesterol, serum, target level 40 mg/dL Cynthia Allouez SENIOR ART DIRECTOR triglyceride, serum, fasting 152 mg/dL Cynthia Kj SENIOR ART DIRECTOR High HDL cholesterol, serum 36 mg/dL Cynthia Kj SENIOR ART DIRECTOR Low LDL cholesterol, serum 68 mg/dL Cynthia Kj SENIOR ART DIRECTOR Normal LDL target level 70 mg/dL Cynthia Zepedall SENIOR ART DIRECTOR cholesterol, target level 200 mg/dL Cynthia Underwood SENIOR ART DIRECTOR platelet count 164 10*3/mm3 [facility] hematocrit, blood 34.6 % [facility] lipoprotein, beta, serum, point, quantitative, calculated 77 mg/dL [facility] cholesterol, serum 144 mg/dL [facility] creatinine, serum 0.60 mg/dL [facility] potassium, serum 5.1 mmol/L [facility] sodium, serum 137 mmol/L [facility] thyroid stimulating hormone, serum 1.595 u[IU]/mL [facility] [place] thyroxine, serum, free 0.15 ng/dL [facility] triiodothyronine (T3), serum 233.0 ng/dL [facility] globulins, serum, total 4.3 g/dL [facility] estimated glomerular filtration rate 91.3 mL/min [facility] albumin/globulin ratio, serum 0.9 [facility] protein, total, serum 8.3 g/dL [facility] albumin, serum 4.0 g/dL [facility] bilirubin, serum, total 0.4 mg/dL [facility] alkaline phosphatase, serum 60 1/L [facility] alanine aminotransferase (SGPT), serum 57 1/L [facility] aspartate aminotransferase (SGOT), serum 67 1/L [facility] calcium, serum 9.1 mg/dL [facility] blood glucose, fasting 175 mg/dL [facility] [place] creatinine, serum 0.7 mg/dL [facility] urea nitrogen, blood 23 mg/dL [facility] carbon dioxide, serum, total 28 mmol/L [facility] chloride, serum 105 mmol/L [facility] potassium, serum 4.3 mmol/L [facility] sodium, serum 136 mmol/L [facility] TOTAL NON-HDL-C (LDL VLDL) 120 Lacretijohnny BlairCarpenter NP alanine aminotransferase (SGPT), serum 30 1/L [facility] aspartate aminotransferase (SGOT), serum 36 1/L [facility] cholesterol/HDL ratio, serum 4 Lacretijohnny BlairCarpenter NP triglyceride, serum, fasting 167 mg/dL [facility] HDL cholesterol, serum 40 mg/dL [facility] LDL cholesterol, serum 86 mg/dL [facility] cholesterol, serum 159 mg/dL [facility] triglyceride, target level 150 mg/dL [facility] HDL cholesterol, serum, target level 40 mg/dL [facility] LDL target level 70 mg/dL [facility] cholesterol, target level 200 mg/dL [facility] creatine kinase, serum <0.2 [facility] Estimated Glomerular Filtration Rate (calc) >60 [facility] calcium, serum 9.1 mg/dL [facility] creatinine, serum 0.50 mg/dL [facility] urea nitrogen, blood 23 mg/dL [facility] carbon dioxide, serum, total 28 mmol/L [facility] chloride, serum 100 mmol/L [facility] potassium, serum 4.4 mmol/L [facility] sodium, serum 138 mmol/L [facility] troponin I <0.02 [facility] triglyceride, serum, fasting 121 mg/dL [facility] HDL cholesterol, serum 46 mg/dL [facility] LDL cholesterol, serum 103 mg/dL [facility] cholesterol, serum 175 mg/dL [facility] PTT patient 25 s [facility] prothrombin time (patient) 12.7 s [facility] international normalized ratio (INR) 1.0 [facility] platelet count 202 10*3/uL [facility] red blood cell distribution width 13.3 % [facility] mean corpuscular hemoglobin concentration, RBC 34.0 g/dL [facility] mean corpuscular hemoglobin, RBC 29.9 pg [facility] mean corpuscular volume, RBC 87.9 fL [facility] hematocrit, blood 35.4 % [facility] hemoglobin, blood 12.1 g/dL [facility] [place] erythrocyte (RBC) count 4.03 10*6/mm3 [facility] monocyte count, blood 0.3 10*3/mm3 [facility] [place] lymphocyte count, blood 2.2 10*3/mm3 [facility] [place] monocytes as percent of blood leukocytes 4.7 % [facility] lymphocytes as percent of blood leukocytes 32.7 % [facility] [place] leukocyte count, blood 6.8 10*3/mm3 [facility] [place] nitrate usage 0 Sarah Welch HISTORY [...] once a day 03/30 - 04/21 Ella Orr NP Humalog KwikPen Insulin 100 unit/mL insulin pen completed - 04/21 David Vanegas MD famotidine 20 mg tablet completed - 10/28 David Vanegas MD duloxetine 20 mg capsule,delayed release(DR/EC) active David Vanegas MD atorvastatin 40 mg tablet completed - [...] once a day 03/01 - 03/30 Marlene Sanuders #22, 87 days supply, Prescribed by LIGIA [...] TAB. DAILY 09/20 - 08/04 Cynthia Underwood SENIOR ART DIRECTOR FEMHET completed 03/03 tab one tab daily [...] 1 tablet twice daily - 08/06 Melissa Neihart MULTIVITAMINS ORAL CAPSULE completed ONE TAB. DAILY [...] MD drug use no Isabel Ventimig della [facility] alcohol use no Isabel Ventimig della [facility] smoking status Former smoker Isabel Venti miglia [facility] social history E&M Marital Statu s: [...] exercise, frequency, days per week no Ting Fran caffeine use, averag e drinks per day yes Ting Tarkio chewing tobacco use Never Catherin e Tarkio smoking, year quit 1997 Ting Tarkio smoking history, tot al pack/year 35 Ting Tarkio smoking history, tot al pack/day 1 Ting Tarkio cigarette use yes Ting Tarkio smoking status Former smoker Ting Ot is [...] pack/day 1 Isael Wiggins cigarette use yes Iseal joseph smoking status Former smoker Isael [place] [...] Ileana chewing tobacco use Never Cynthia lewislouis SENIOR ART DIRECTOR smoking status Former smoker Cynthia Zepeda marcus SENIOR ART DIRECTOR social history E&M Marital Statu s: L [...] alcohol use, average drinks per day social Isale Wiggins alcohol use yes Isael Delarosa nson caffeine use, averag e drinks per day yes Isael Wiggins smoking, year quit 1998 Isael Wiggins smoking history, tot al pack/year 37 Isael Wiggins smoking history, tot al pack/day 1 Isael Wiggins cigarette use yes Isael joseph smoking status Former smoker Isael [place] smoking status Former smoker Cynthia velazquez SENIOR ART DIRECTOR smoking/tobacco cess ation, patient education and counseling yes Cynthia Underwood SENIOR ART DIRECTOR smoking status Former smoker Cynthia velazquez SENIOR ART DIRECTOR quit smoking, stage quit David winslow MD [...] average drinks per day social basis only [facility] FUNCTIONAL STATUS Date Observation Value Provider [...] (inactive) Management Plan continue current therapy David Vaneags MD HRA, CV Assess/Plan, Angina (inactive) Management Plan continue current therapy David Vanegas MD HRA, CV Assess/Plan, Angina (inactive) Management Plan continue current therapy David Vanegas MD HRA, CV Assess/Plan, Angina (inactive) Management Plan continue current therapy David Vanegas MD MENTAL STATUS Date Observation Value Provider energy level yes Chayo Tebid energy level yes [place] Tebid energy level yes [place] Tebid energy level yes [place] Tebid energy level yes [place] Tebid energy level yes [place] Tebid energy level yes [place] Tebid energy level yes [place] Tebid energy level yes Chayo Tebid energy level yes Chayo Tebid energy level yes Chayo Tebid energy level yes Chayo Tebid energy level yes [place] Tebid energy level yes Chayo Tebid energy level yes [place] Tebid energy level yes Chaoy Tebid energy level yes Chayo Tebid energy level yes [place] Tebid energy level yes [place] Tebid energy level yes [place] Tebid energy level yes [place] Tebid energy level yes [place] Tebid energy level yes [place] Tebid energy level yes [place] Tebid energy level yes [place] Tebid energy level yes [place] Tebid energy level yes [place] Tebid energy level yes [place] Tebid energy level yes [place] Tebid energy level yes [place] Tebid energy level yes [place] Tebid energy level no [place] Tebid energy level no [place] Tebid energy level no [place] Tebid assessment of judgme nt and insight [...] yes Jose Kline energy level yes Jose Raisa energy level yes Jose Kline energy level [...] Payer name Policy type / Coverage type Lester red libertarian ID [place] [id number] 9 [facility] [id number] ADVANCE DIRECTIVES Name Date DISCUSSED - NO DECISION MADE TREATMENT PLAN Date Name Performer [id number],C,nayeli cannon MD [id number],S,weight loss e ncouraged. [facility] [id number],S, H er updated medication list for this problem includes: Atorvastatin 40 Mg Tablet (Atorvastatin) ..... Take 1 tablet daily at bedtime [facility] [id number],C,B P well controlled per home RPM average [...] once a day take 1 tablet daily [facility] [id number],S,H as CPAP and is compliant. concern that needs updated settings given progressive SOB. Will repeat IHS on CPAP [facility] [id number],C,W ith EF of 65%. Has been unable to tolerate Jardiance. Remains on diuretic. Her BP is well controlled. Will plan [facility] study to see if helps with [...] day take 1 tablet daily Isabel Frankel [facility] [id number],S,O nly mild on recent echo. Will monitor. Isabel Frankel [facility] [id number],W,H as had ongoing progressive SOB that is [...] proper settings. We will also refer for [facility] study H er updated medication list [...] day take 1 tablet daily Isabel Frankel [facility] [id number],C,7.4 David cannon MD [id number],B, David turner MD [id number],S, 5 5 David Vanegas MD [id number],S, H eart monitor revealed no arrythmias. SR with no ectopy, pauses. neg hep [place] n eg neg vd for edma David Jacquesa [id number],S, a bi less then .6 with cladicoiatn d ista dz by angio David Jacuqesjohnny HANSON [id number],S, n eg rpr and b12 David Jacquesa [id number],S, 1 100 David Jacquesa [id number],S, David Serot a [id number],S, s core 110 N o angina 3 0% distal lad David Jacquesjohnny HANSON [id number],B, s tii; anemic on iron H AD INFUSIN AND RESOVLED N, HAD COLON, David Jacquesjohnny HANSON [id number],S, David Serot a [id number],S,d ue to ms? 2 97 David Vanegas [id number],S, m odeated ms and midl mr David Vanegas [id number],C,modeated ms a nd midl mr David Vanegas [id number],S,8.2 David Se rota [id number],S, David Serot a [id number],S, 2 97 David Jacquesa [id number],S, H eart monitor revealed no arrythmias. SR with no ectopy, pauses. neg hep [place] n eg neg vd for edma David Vanegas [id number],S, n eg rpr and b12 David Jacquesa [id number],S, a bi less then .6 with cladicoiatn d ista dz by angio David Jacquesjohnny HANSON [id number],S, David Serot a [id number],S, M oderate MS , Mild MR. on echo 03/2021. repeat next year David Vanegas MD [id number],S, s core 110 N o angina 3 0% distal lad David Vanegas MD [id number],B, s tii; anemic on iron H AD INFUSIN AND RESOVLED N, HAD COLON, David Serotjohnny HANSON [id number],S, David Serot a [id number],B, s tii; anemic on iron H AD INFUSIN AND RESOVLED N, HAD COLON, David Romina HANSON [id number],S,8.2 David cannon MD [id number],B,55 David Ser joselin HANSON [id number],S, n eg rpr and b12 David Vanegas MD [id number],S, David Serot a [id number],S,s tii; anemic on iron H AD INFUSIN AND RESOVLED N, HAD COLON, David Romina HANSON [id number],C,6.7 aDvid cannon MD [id number],S,a bi less then .6 with cladicoiatn d ista dz by angio David Vanegas MD [id number],S,s core 110 N o angina 3 0% distal lad David Vanegas MD [id number],S, H eart monitor revealed no arrythmias. SR with no ectopy, pauses. neg hep [place] n eg neg vd for edma ,neg uiacr David Vanegas MD [id number],B, H eart monitor revealed no arrythmias. SR with no ectopy, pauses. David Vanegas MD [id number],S, 2 97 David Vanegas MD [id number],S,efgr 45 Sima Vanegas MD [id number],S, M oderate MS , Mild MR. on echo 03/2021. repeat next year David Vanegas MD [id number],C, 5 .8 F arxiga too expensive, invokana diarhrrea. was on jardiance in the past but thinks she had a reaction as well. C urrently on metformin and insulin Ella Orr NP [id number],C,s tart kerendia H er updated medication list for this problem includes: Metoprolol Succinate 25 Mg Tablet Extended Release 24 Hr (Metoprolol succinate) ..... Take 1 tablet daily Aspirin 81 Mg Tablet,delayed Release (dr/ec) (Aspirin) ..... Take 1 tablet daily Ella Orr NP [id number],C,N o angina 3 0% distal lad Ella Orr NP [id number],C,M oderate MS , Mild MR. on echo 03/2021. repeat next year Ellatito Orr NP [id number],C,H eart monitor revealed no arrythmias. SR with no ectopy, pauses. Ella Orr NP [id number],C,mod ms with m ild mr David Vanegas MD [id number],S, David turner MD [id number],S, r echeck echo to eval David Vanegas MD [id number],S,297 David cannon MD [id number],S,1100 David S goldy [id number],S,n eg hep [place] n eg neg vd for edma ,neg uiacr David Vanegas MD [id number],C,5.8 David cannon MD [id number],C,dista dz by a peri Vanegas MD [id number],B,andersojn bb increaed David Vanegas MD [id number],S, n eg rpr and b12 David Vanegas MD [id number],S, David turner MD [id number],S, F ollows with pulmonary David Vaneags MD [id number],S, 3 0% distal lad David Vanegas MD Cardiology:8 David Vanegas MD Cardiology: H eart monitor revealed no arrythmias. SR with no ectopy, pauses. n eg neg vd for edma David Vanegas MD Cardiology:mild to m od ms by shawanda at cne 24, mid mr and mr David Vanegas MD Cardiology David Vanegas MD Cardiology David Vanegas MD Cardiology: a bi less [...] sherman , ms pregresson by echo at [facility] ms and rm bye shawanda 2022 2 [...] N, HAD COLON, David Vanegas MD Cardiology: a bi less [...] titration:nayeli turner MD Cardiology:weight loss encourage d. [facility] Cardiology: H er updated medication list for this problem includes: Atorvastatin 40 Mg Tablet (Atorvastatin) ..... Take 1 tablet daily at bedtime [facility] Cardiology:BP well c ontrolled per home [...] once a day take 1 tablet daily [facility] Cardiology:Has CPAP and is compliant. concern that needs updated settings given progressive SOB. Will repeat IHS on CPAP [facility] Cardiology:With EF o f 65%. Has been unable to tolerate Jardiance. Remains on diuretic. Her BP is well controlled. Will plan [facility] study to see if helps with [...] once a day take 1 [facility] Cardiology:Only mild on recent e cho. Will monitor. [facility] Cardiology:Has had o ngoing progressive SOB [...] proper settings. We will also refer for [facility] H er updated medication list for [...] day take 1 tablet daily Isabel Frankel EXCHANGE FLOOR MANAGER Cardiology:7.4 David Vanegas MD Cardiology David Vanegas [...] with cladicoiatn d ista dz by angio Davdi Vanegas MD Cardiology David Vanegas MD Cardiology: [...] RESOVLED N, HAD COLON, David Vanegas MD Cardiology:8.2 David Vanegas MD Cardiology:55 David [...] next year David Vanegas MD Cardiology-seen with SENIOR ART DIRECTOR: 5 .8 F arxiga too expensive, invokana diarhrrea. was on jardiance in the past but thinks she had a reaction as well. C urrently on metformin and insulin Ella Orr NP Cardiology-seen with SENIOR ART DIRECTOR:sherri jay updated medication list for this problem includes: Metoprolol Succinate 25 Mg Tablet Extended Release 24 Hr (Metoprolol succinate) ..... Take 1 tablet daily Aspirin 81 Mg Tablet,delayed Release (dr/ec) (Aspirin) ..... Take 1 tablet daily Ella Orr NP Cardiology-seen with SENIOR ART DIRECTOR:No angina 3 0% distal lad Ella Orr NP Cardiology-seen with SENIOR ART DIRECTOR:Moderate MS , Mild MR. on echo 03/2021. repeat next year Ella Orr NP Cardiology-seen with SENIOR ART DIRECTOR:Heart monitor revealed no arrythmias. SR with no [...] dz by angio Jorge Vanegas MD TeleHealth:sabrina hodgson increaed David Vanegas MD TeleHealth: n eg rpr and b12 David Vanegas MD TeleHealth David Vanegas MD TeleHealth: F audrey with pulmonary David Vanegas MD TeleHealth: 3 0% distal lad David Vanegas MD Cardiology Follow up :does not appear fluid overloaded at this time. Cynthia Alcaraz DEISY Cardiology Follow up :recheck ec ho to eval Cynthia Alcaraz SENIOR ART DIRECTOR Cardiology Follow up :check echo Cynthia Alcaraz SENIOR ART DIRECTOR Cardiology Follow up : H er updated [...] One tab by mouth daily Cynthia Alcaraz SENIOR ART DIRECTOR Cardiology Follow up : H er updated medication list for this problem includes: Atorvastatin Calcium 40 Mg Oral Tablet (Atorvastatin calcium) ..... Take 1 tab daily at bedtime Cynthia Alcaraz DEISY Cardiology Follow up Cynthia brito DEISY Cardiology: 3 0% distal lad David Vanegas [...] David Vanegas MD Cardiology:Follows with pulmonar y yCnthia Underwood NP Cardiology:BP stable . Continue current [...] daily at bedtime Lovaza 1 Gm Caps (Zjfoh-8-quym ethyl esters) ..... 2 capsules daily David Vanegas MD Cardiology - SENIOR ART DIRECTOR ramon jones:Patient's endocrine MD had placed her [...] breath, fatigue, dizziness, nausea, or diaphoresis) of [place] [employer] Class III (defined as symptoms with everyday living activities, i.e. moderate limitation) or [place] [employer] Class IV (defined as inability [...] this problem includes: Lovaza 1 Gm Caps (Njlqx-4-xeql ethyl esters) ..... 2 capsules daily C [...] trace physiologic aortic v alve regurgitation. w ill incrase lasix David Vanegas MD Cardiology:on rx, us ing it [...] this problem includes: Lovaza 1 Gm Caps (Cftdk-7-whsq ethyl esters) ..... 2 capsules daily C [...] this problem includes: Lovaza 1 Gm Caps (Hkkeg-2-hbgy ethyl esters) ..... 2 capsules daily C HOL: 155 (08/05/2015) LDL: 53 (08/05/2015) HDL: 52 (08/05/2015) T (08/05/2015) C HOL (goal): 200 (08/05/2015) LDL (goal): 70 (08/05/2015) HDL (goal): 40 (08/05/2015) TG (goal): 150 (08/05/2015) David Vaengas MD Cardiology:many sx will borrego Aleksandarmary ann [...] this problem includes: Lovaza 1 Gm Caps (Fnjjj-7-mxxb ethyl esters) ..... 2 capsules daily Cynthia [...] this problem includes: Lovaza 1 Gm Caps (Qtczu-1-jnsc ethyl esters) ..... 2 capsules daily Cynthia [...] this problem includes: Lovaza 1 Gm Caps (Slkii-7-chbb ethyl esters) ..... 2 capsules daily Cynthia [...] this problem includes: Lovaza 1 Gm Caps (Wnjus-0-gxex ethyl esters) ..... 2 capsules daily Patient [...] daily Orders: Full PFT (*) S pirometry (CPT-74353) C omplete Echo (CPT-36654) e Prescribe - Check this box if eRx is used (CPT-G8553) E CP Commercial (CPT-99412) David Vanegas MD follow up David Vanegas MD follow up: O rders: F ull PFT (*) S pirometry (CPT-18233) C omplete Echo (CPT-85477) e Prescribe - Check this box if eRx is used (CPT-G8553) E CP Commercial (CPT-88573) David Vanegas MD follow up: T he following medications were removed from the medication list: Aspirin 81 Mg Tabs (Aspirin) ..... One tab. daily Her updated medication list for this problem includes: Atenolol 25 Mg Tabs (Atenolol) ..... One tab. daily Orders: F ull PFT (*) S pirometry (CPT-27586) C omplete Echo (CPT-76083) e Prescribe - Check this box if eRx is used (CPT-G8553) E CP Commercial (CPT-43406) David Vanegas MD follow up David Vanegas MD follow up David Vanegas MD follow up: O rders: F ull PFT (*) S pirometry (CPT-54464) C omplete Echo (CPT-76565) e Prescribe - Check this box if eRx is used (CPT-G8553) E CP Commercial (CPT-13273) David Vanegas MD follow up: T he following medications were removed from the medication list: Aspirin 81 Mg Tabs (Aspirin) ..... One tab. daily Her updated medication list for this problem includes: Atenolol 25 Mg Tabs (Atenolol) ..... One tab. daily Orders: F ull PFT (*) S pirometry (CPT-89966) C omplete Echo (CPT-10793) e Prescribe - Check this box if eRx is used (CPT-G8553) E CP Commercial (CPT-02903) David Vanegas MD follow up: O rders: F ull PFT (*) S pirometry (CPT-35989) C omplete Echo (CPT-39642) e Prescribe - Check this box if eRx is used (CPT-G8553) E CP Commercial (CPT-17444) David Vanegas MD follow up: H er [...] ..... One tab. daily David Vanegas MD [facility] only, use bare metal stent David Vanegas MD [facility] only, use bare metal stent: H er updated medication list for this problem includes: Liothyronine Sodium 25 Mcg Tabs (Liothyronine sodium) ..... Take one tablet twice daily David Vanegas MD [facility] only, use bare metal stent David Vanegas MD [facility] only, use bare metal stent David Vanegas MD [facility] only, use bare metal stent: H er [...] rl only, use bare metal stent David Vaengas MD rl only, use bare metal stent [...] up: O rders: C ardiopulmonary Stress Test (CPT-26591) E CP Commercial (CPT-06902) C omplete Echo (CPT-43076) S tress Test - Adenosine (91666) David Vanegas MD follow up: O rders: C ardiopulmonary Stress Test (CPT-65065) E CP Commercial (CPT-41258) C omplete Echo (CPT-81321) S tress Test - Adenosine (45995) David Vanegas MD follow up David Vanegas MD follow up David Vanegas MD follow up David Vanegas MD follow up David Vanegas MD follow up David Vanegas MD follow up: O rders: C ardiopulmonary Stress Test (CPT-90712) E CP Commercial (CPT-18989) C omplete Echo (CPT-84881) S tress Test - Adenosine (60097) David Vanegas MD follow up: H er [...] ormal pulmonic valve. (10/19/2007) Orders: S pirometry (CPT-47246) C omplete Echo (CPT-65986) S tress Test - Adenosine (16829) David Vanegas MD follow up: B P [...] (Atenolol) ..... One tab. daily Orders: Spirometry (CPT-52595) C omplete Echo (CPT-71777) S tress Test - Adenosine (70825) David Vanegas MD follow up David Vanegas MD follow up: O rders: S pirometry (CPT-12272) C omplete Echo (CPT-28619) S tress Test - Adenosine (70452) David Vanegas MD follow up: H er [...] Normal pulmonic valve. (10/19/2007) Orders: S pirometry (CPT-69811) C omplete Echo (CPT-12539) S tress Test - Adenosine (48529) David Vanegas MD follow up: O rders: S pirometry (CPT-76291) C omplete Echo (CPT-29572) S tress Test - Adenosine (43382) David Vanegas MD follow up: H er updated medication list for this problem includes: Aspirin 81 Mg Tabs (Aspirin) ..... One tab. daily Atenolol 25 Mg Tabs (Atenolol) ..... One tab. daily Orders: Spirometry (CPT-09835) C omplete Echo (CPT-61761) S tress Test - Adenosine (07046) David Vanegas MD follow up: H er [...] Cl: 100 (07/25/2010) O rders: S pirometry (CPT-42019) C omplete Echo (CPT-80949) S tress Test - Adenosine (83295) David Vanegas MD follow up: H er [...] P TT: 25 (07/25/2010) Orders: S pirometry (CPT-02019) C omplete Echo (CPT-11826) S tress Test - Adenosine (41604) David Vanegas MD follow up David Vanegas [...] Vanegas MD routine: O rders: E KG (CPT-60524) David Vanegas MD routine David Vanegas MD routine: H er updated medication list for this problem includes: Aspirin 81 Mg Tabs (Aspirin) ..... One tab. daily Atenolol 25 Mg Tabs (Atenolol) ..... One tab. daily David Vanegas MD routine David Vanegas MD routine David Vanegas MD ECP surnim-vc-dyy pa in greater in right: H er updated medication list for this problem includes: Levothroid 150 Mcg Tabs (Levothyroxine sodium) ..... 1 tablet dailly David Vanegas MD ECP xglets-mp-etu pa in greater in right: H er [...] BP: 125/71 (07/07/2008) David Vanegas MD ECP ltgdkr-jt-rjr pa in greater in right: H er [...] filling pressures. (11/26/2003) David Vanegas MD ECP rtqssm-lp-nxs pa in greater in right: H er [...] ormal pulmonic valve. (10/19/2007) Orders: E KG (CPT-16841) David Vanegas MD ECP zamwxw-yv-zsc pa in greater in right: H er updated medication list for this problem includes: Atenolol 25 Mg Tabs (Atenolol) ..... One tab. daily Aspirin 81 Mg Tabs (Aspirin) ..... One tab. daily BP today: 128/78 P rior BP: 125/71 (07/07/2008) David Vanegas MD ECP jalxvm-cf-ube pain greater i n right David Vanegas MD ECP rhkhib-xu-hng pa in greater in right: H er updated medication list for this problem includes: Lescol Xl 80 Mg Tb24 (Fluvastatin sodium) ..... 1 tablet daily BP today: 128/78 Prior BP: 125/71 (07/07/2008) David Vanegas MD ECP ufxwyd-gi-wxb pain greater i n right David Vanegas MD ECP xskwmk-ov-kby pa in greater in right: H er [...] daily Orders: H olter Monitor 24 Hr (CPT-85108) BP today: 138/80 Prior BP: / () [...] Orders: X -Ray, Chest, PA & Lateral (CPT-67211) H olter Monitor 24 Hr (CPT-68450) David Vanegas MD rattle : B P [...] pressure of 18mmHg. (10/26/2006) Orders: E KG (CPT-39622) E CP Commercial (CPT-67965) C omplete Echo (CPT-81092) BP today: 138/80 Prior BP: / () [...] regurgitation. PA pressure of 18mmHg. (10/26/2006) David Vanegas MD Date Name Abdominal US Complete Echo Complete Echo Sleep Study Titratio n DLCO - 92759 FRC - 17452 FVC - 31477 Stress Cardiac PET-C T Complete Echo Stress [...] Cath - Right - [facility] DLCO - 58821 FRC - 61687 FVC - 67647 PROTHROMBIN TIME WIT H INR CBC (INCLUDES [...] completed Complex e/m visit add on David Vanegas MD completed FVC / MVV with bronchodilator - 73920 David Vanegas MD completed BLOOD COUNT HEMOGLOBIN David Vanegas MD completed FRC - 39600 David Vanegas MD complet ed SpO2 w/o 6min walk/titration David Vanegas MD completed DLCO - 48881 David Vanegas MD comple roxanne EKG David Vanegas MD complete d EKG David Vanegas MD complete d EKG David Vanegas MD complete d EKG David Vanegas MD complete d EKG David Vanegas MD complete d SNOMED-CT: 648486811 215259 Current Medications Documented David Vanegas MD completed FVC / MVV with bronchodilator - 37459 David Vanegas MD completed BLOOD COUNT HEMOGLOBIN David Vanegas MD completed FRC - 79364 David Vanegas MD complet ed SpO2 - 66838 David Vanegas MD comple roxanne DLCO - 77531 David Vanegas MD comple roxanne SNOMED-CT: 549960710 925757 Current Medications Documented David Vanegas MD completed CT- Coronary CA score David Vanegas MD completed EKG David Vanegas MD complete d SNOMED-CT: 457800410 705070 Current Medications Documented David Vanegas MD completed SNOMED-CT: 571806291 149281 Current Medications Documented David Vanegas MD completed SNOMED-CT: 07317762 Physical Exam, Performed: Pulse Exam of Foot David Vanegas MD completed EKG David Vanegas MD complete d SNOMED-CT: 162228874 025095 Current Medications Documented David Vanegas MD completed SNOMED-CT: 23572410 Physical Exam, Performed: Pulse Exam of Foot David Vanegas MD completed EKG David Vanegas MD complete d SNOMED-CT: 986321023 381105 Current Medications Documented David Vanegas MD completed [...]
--- OUTSIDE RECORDS SUMMARY | 2024-06-04 00:46 | XMS_ITS | Encounter Summary ---
Author Organization [facility] [employer] [facility] Address [address] [place] [address] Care Team Providers Care Legal Service Specialist Name Role Phone Charles Armendariz DO Primary Care Provider Encounter Details Date Type Department Care Team (Late Contact Info) Description 06/03/2024 Orders Only [facility] Oncology and Hematology [facility] [address] [place] [address] Ray Richards MD [address] [place] [id number] Chronic anemia Social History Tobacco Use Types Packs/Day Years Used Date Smoking Tobacco: Former Cigarettes Q uit: 1998 Smokeless Tobacco: Never Alcohol Use Standard Drinks/Week Comments Not Currently 0 (1 standard drink = 0.6 oz pur e alcohol) Feeling Safe Answer Date Recorded Are you in a relationship wi th someone who hurts you emotionally and/or physically? 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 Gender Identity Not on file Sexual Orientation Not on file documented as of this encounter Plan of Treatment Upcoming Encounters Date Type Department Care Team (Late Contact Info) Description 07/31/2024 9:30 AM CDT Office Visit [facility] Oncology and Hematology [place] [address] [place] [address] Ray Richards MD [address] [place] [phone] documented as of this encounter Visit Diagnoses Diagnosis Chronic anemia Anemia, unspecified documented in this encounter Care Teams Legal Service Specialist Relationship Specialty Start Date End Date Charles Armendariz DO [address] [address] PCP - General Internal Medicine 11/04/22 documented as of this encounter
--- OUTSIDE RECORDS SUMMARY | 2024-06-04 00:46 | XMS_ITS | Continuity of Care Document ---
Author Organization [employer] [place] Address [address] [place] [address] [address] [place] [address] Phone Care Team Providers Care Director Talent Acquisition Name Role Phone Ford PT, DPT, Deborah Unavailable Unavaila ble Procedures Procedure Date Therapeutic Activities Neuromuscular Re-Ed Therapeutic Activities Neuromuscular Re-Ed Remote therapeutic monitor monthly mgmt 20m Remote therapeutic monitor monthly mgmt add 20m Therapeutic Activities Neuromuscular Re-Ed Hot or Cold Pack Therapeutic Activities Neuromuscular Re-Ed Therapeutic Activities Neuromuscular Re-Ed Hot or Cold Pack Doc neg elder mal no plan PRES/ABSN URINE INCON ASSESS PT Evaluation High Complexity Therapeutic Activities Neuromuscular Re-Ed Therapeutic Exercise Hot or Cold Pack Therapeutic Activities Neuromuscular Re-Ed Therapeutic Exercise Hot or Cold Pack Progress Note Therapeutic Activities Neuromuscular Re-Ed Therapeutic Exercise Hot or Cold Pack Therapeutic Activities Therapeutic Exercise Hot or Cold Pack Therapeutic Activities Neuromuscular Re-Ed Therapeutic Exercise Hot or Cold Pack Therapeutic Activities Neuromuscular Re-Ed Therapeutic Exercise Hot or Cold Pack Therapeutic Activities Therapeutic Exercise Hot or Cold Pack Therapeutic Activities Neuromuscular Re-Ed Hot or Cold Pack Doc neg elder mal no plan PRES/ABSN URINE INCON ASSESS PT Evaluation High Complexity Therapeutic Activities Neuromuscular Re-Ed Therapeutic Exercise Hot or Cold Pack Therapeutic Activities Neuromuscular Re-Ed Therapeutic Activities Neuromuscular Re-Ed Therapeutic Activities Neuromuscular Re-Ed Therapeutic Activities Neuromuscular Re-Ed Therapeutic Exercise Therapeutic Activities Neuromuscular Re-Ed Therapeutic Exercise Progress Note Therapeutic Activities Neuromuscular Re-Ed Therapeutic Exercise Therapeutic Activities Neuromuscular Re-Ed Therapeutic Activities Neuromuscular Re-Ed Therapeutic Exercise Therapeutic Activities Neuromuscular Re-Ed Therapeutic Activities Neuromuscular Re-Ed Therapeutic Exercise Neuromuscular Re-Ed Therapeutic Activities Therapeutic Activities Neuromuscular Re-Ed Therapeutic Exercise Therapeutic Activities Neuromuscular Re-Ed Therapeutic Exercise Progress Note Neuromuscular Re-Ed Therapeutic Activities Therapeutic Exercise Therapeutic Activities Neuromuscular Re-Ed Therapeutic Exercise Therapeutic Activities Neuromuscular Re-Ed Therapeutic Exercise Therapeutic Activities Therapeutic Exercise Neuromuscular Re-Ed Therapeutic Activities Neuromuscular Re-Ed Therapeutic Exercise Therapeutic Activities Neuromuscular Re-Ed Therapeutic Exercise Neuromuscular Re-Ed Therapeutic Activities Doc neg elder mal no plan Doc neg elder mal no plan Therapeutic Activities Neuromuscular Re-Ed PT Evaluation Moderate Complexity Progress Note Therapeutic Activities Therapeutic Exercise Neuromuscular Re-Ed Manual Therapy Hot or Cold Pack Neuromuscular Re-Ed Therapeutic Activities Hot or Cold Pack Therapeutic Exercise Hot or Cold Pack Therapeutic Activities Neuromuscular Re-Ed Therapeutic Exercise Manual Therapy Therapeutic Activities Neuromuscular Re-Ed Hot or Cold Pack Therapeutic Activities Neuromuscular Re-Ed Hot or Cold Pack Manual Therapy Manual Therapy Neuromuscular Re-Ed Therapeutic Activities Hot or Cold Pack Therapeutic Exercise Therapeutic Activities Manual Therapy Hot or Cold Pack Therapeutic Activities Manual Therapy Therapeutic Exercise Hot or Cold Pack Progress Note Therapeutic Activities Therapeutic Exercise Manual Therapy Hot or Cold Pack Therapeutic Activities Hot or Cold Pack Therapeutic Exercise Manual Therapy Therapeutic Activities Hot or Cold Pack Manual Therapy Neuromuscular Re-Ed Therapeutic Activities Therapeutic Exercise Hot or Cold Pack Manual Therapy Therapeutic Activities Manual Therapy Therapeutic Exercise Hot or Cold Pack Manual Therapy Neuromuscular Re-Ed Hot or Cold Pack Therapeutic Exercise Therapeutic Activities Therapeutic Activities Manual Therapy Therapeutic Exercise Hot or Cold Pack Therapeutic Activities Hot or Cold Pack Neuromuscular Re-Ed Manual Therapy Therapeutic Activities Manual Therapy Neuromuscular Re-Ed Hot or Cold Pack Manual Therapy Hot or Cold Pack Therapeutic Activities Neuromuscular Re-Ed Neuromuscular Re-Ed Therapeutic Activities Progress Note Manual Therapy Hot or Cold Pack Therapeutic Activities Therapeutic Exercise Neuromuscular Re-Ed Hot or Cold Pack Manual Therapy Neuromuscular Re-Ed Therapeutic Activities Hot or Cold Pack Therapeutic Exercise Manual Therapy Therapeutic Activities Therapeutic Exercise Hot or Cold Pack Manual Therapy Therapeutic Activities Manual Therapy Therapeutic Exercise Hot or Cold Pack Therapeutic Activities Therapeutic Exercise Manual Therapy Hot or Cold Pack Therapeutic Activities Therapeutic Exercise Hot or Cold Pack Manual Therapy Manual Therapy Neuromuscular Re-Ed Therapeutic Activities Therapeutic Exercise Hot or Cold Pack Therapeutic Exercise Therapeutic Activities Neuromuscular Re-Ed Manual Therapy Hot or Cold Pack OT Re-Evaluation Therapeutic Activities Neuromuscular Re-Ed Therapeutic Exercise Manual Therapy Hot or Cold Pack Therapeutic Activities Therapeutic Exercise Hot or Cold Pack Manual Therapy Progress Note Therapeutic Activities Hot or Cold Pack Therapeutic Exercise Manual Therapy Therapeutic Activities Therapeutic Exercise Manual Therapy Hot or Cold Pack Therapeutic Activities Hot or Cold Pack Therapeutic Exercise Manual Therapy Therapeutic Exercise Therapeutic Activities Hot or Cold Pack Manual Therapy Therapeutic Activities Hot or Cold Pack Manual Therapy Therapeutic Activities Hot or Cold Pack Neuromuscular Re-Ed Therapeutic Exercise Therapeutic Activities Therapeutic Exercise Neuromuscular Re-Ed Hot or Cold Pack Neuromuscular Re-Ed Therapeutic Exercise Therapeutic Activities Hot or Cold Pack Therapeutic Activities Therapeutic Exercise Hot or Cold Pack Neuromuscular Re-Ed Progress Note Therapeutic Exercise Therapeutic Activities Neuromuscular Re-Ed Hot or Cold Pack Manual Therapy Therapeutic Activities Neuromuscular Re-Ed Therapeutic Exercise Hot or Cold Pack Manual Therapy Manual Therapy Neuromuscular Re-Ed Therapeutic Activities Therapeutic Exercise Hot or Cold Pack Neuromuscular Re-Ed Therapeutic Activities Therapeutic Exercise Hot or Cold Pack Manual Therapy Therapeutic Activities Therapeutic Exercise OT Evaluation Low Complexity Manual Therapy Therapeutic Exercise Orthotic Mgmt and Training Long Arm Splint wrist included Advance Directives Directive Yes / No Effective Date File Name No Information Encounters Encounter Description Practice Location Reason(s) For Visit Diagnoses Date Provider Providers Copied on Encounter [facility] [address], [place], [place], [address], tel:[phone] [place] No Information May-0 2- 5 [facility] Deborah. . Referring Provider: Caleb Martinez, [address] [place] [address] [address], [place], [address]. [facility], [address] [place] [address] [address], [place], [place], [address], tel:[phone] [place] No Information Apr-3 5 [facility] Deborah. . Referring Provider: Caleb Martinez, [address] [place] [address] [address], [place], [address]. [facility], [address] [facility] [address], [place], [place], [address], tel:[phone] [place] Pain in left shoulderStiffn ess of left shoulder, not elsewhere classifiedMusc le weakness (generalized) Mar-3 5 [facility] Deborah. . Referring Provider: Caleb Martinez [address] [place] [address] [address], [place], [address]. [facility] [address] [address], [place], [place], [address], tel:[phone] [place] No Information Apr-2 5 Niall Alas. [address] [place] [address], [address], [place], [place], [facility], . tel: [phone] Referring Provider: Caleb Martinez [address] [place] [address] [address], [place], [address]. [facility] [address] [address], [place], [place], [address], tel:[phone] [place] No Information Mar-2 - 5 [facility] Deborah. . Referring Provider: Caleb Martinez [address] [place] [address] [address], [place], [address]. [facility] [address] [facility] [address], [place], [place], [address], tel:[phone] [place] No Information Mar-1 - 5 [facility] Deborah. . Referring Provider: Caleb Martinez [address] [place] [address] [address], [place], [address]. [facility] [address], [place], [place], [address], [place] tel:[phone] [place] No Information Mar-1 7-202 5 [facility] Deborah. . Referring Provider: Caleb Martinez, [address] [place] [address] [address], [place], [address]. [facility], [address], [place], [place], [address], [place] tel:[phone] [place] No Information Mar-1 2-202 5 [facility] Deborah. . Referring Provider: Caleb Martinez, [address] [place] [address] [address], [place], [address]. [facility], [address] [facility], [place], [place], [address], [place] tel:[phone] [place] No Information Mar-1 0-202 5 [facility] Deborah. . Referring Provider: Caleb Martinez, [address] [place] [address] [address], [place], [address]. [facility], [address] [facility], [place], [place], [address], [place] tel:[phone] [place] No Information Mar-0 7-202 5 [facility] Deborah. . Referring Provider: Caleb Martinez [address] [place] [address] [address], [place], [address]. [facility], [address] [facility], [place], [address], [place] tel:[phone] [place] No Information b-2 8-202 5 [facility] Deborah. . Referring Provider: Caleb Martinez [address] [place] [address] [address], [place], [address]. [facility], [address], [place], [place], [address], [place] tel:[phone] [place] No Information Feb-2 6-202 5 [facility] Deborah. . Referring Provider: Caleb Martinez [address] [place] [address] [address], [place], [address]. [facility], [address], [place], [place], [address], [place] tel:[phone] [place] No Information Feb-2 1-202 5 [facility] Deborah. . Referring Provider: Caleb Martinez, [address] [place] [address] [address], [place], [address]. [facility], [address] [facility], [place], [place], [address], tel:[phone] [place] No Information 5 [facility] Deborah. . Referring Provider: Caleb Martinez, [address] [place] [address] [address], [place], [address]. [facility], [address] [facility], [place], [place], [address], [place] tel:[phone] [place] No Information 5 [facility] Deborah. . Referring Provider: Caleb Martinez, [address] [place] [address] [address], [place], [address]. [facility], [address] [facility] [address], [place], [place], [address], tel:[phone] [place] No Information 2 Muehl Bishop. [address] [facility], [address], [place], [place], [facility], [place]. tel: [phone] Referring Provider: Caleb Martinez, [address] [place] [address] [address], [place], [address]. [facility], [address] [facility] [address], [place], [place], [address], [place] tel:[phone] [place] No Information 2 Muehl Bishop. [address] [facility], [address], [place], [address], [place]. tel: [phone] Referring Provider: Caleb Martinez, [address] [place] [address] [address], [place], [address]. [facility], [address] [facility] [address], [place], [place], [address], [place] tel:[phone] [place] No Information 2 Muehl Bishop. [address] [facility], [address], [place], [address], [place]. tel: [phone] Referring Provider: Caleb Martinez, [address] [place] [address] [address], [place], [address]. [facility], [address] [place], [place] [address], [place], [place], [address], tel:[phone] [place] No Information Nov-1 1-202 2 Muehl Bishop. [address] [place] [address], [address], [place], [place], [facility], [place]. tel: [phone] Referring Provider: Caleb Martinez, [address] [place] [address] [address], [place], [address]. [facility], [address] [place], [place] [address], [place], [place], [address], tel:[phone] [place] No Information Nov-0 7-202 2 Muehl Bishop. [address] [place] [address], [address], [place], [place], [facility], [place]. tel: [phone] Referring Provider: Caleb Martinez, [address] [place] [address] [address], [place], [address]. [facility] [address] [place], [place] [address] [address], [place], [place], [address], tel:[phone] [place] No Information Nov-0 4-202 2 Muehl Bishop. [address] [place] [address], [address], [place], [place], [facility], [place]. tel: [phone] Referring Provider: Caleb Martinez, [address] [place] [address] [address], [place], [address]. [facility] [address] [facility] [address], [place], [place], [address], tel:[phone] [place] No Information Nov-0 2-202 2 Muehl Bishop. [address] [place] [address], [address], [place], [facility], [place]. tel:[phone] Referring Provider: Caleb Martinez, [address] [place] [address] [address], [place], [address]. [facility], [address] [facility] [address], [place], [place], [address], tel:[phone] [place] No Information Oct-2 6-202 2 Muehl Bishop. [address] [place] [address], [address], [place], [facility], . tel: [phone] Referring Provider: Caleb Martinez, [address] [place] [address] [address], [place], [address]. [facility], [address] [facility] [address], [place], [place], [address], tel:[phone] [place] No Information Oct-2 4-202 2 Muehl Bishop. [address] [place] [address], [address], [place], [facility], [place]. tel: [phone] Referring Provider: Caelb Martinez, [address] [place] [address] [address], [place], [address]. [facility] [address] [facility] [address], [place], [place], [address], tel:[phone] [place] No Information Nov-1 7-202 2 Muehl Bishop. [address] [place] [address], [address], [place], [facility], . tel: [phone] Referring Provider: Caleb Martinez, [address] [place] [address] [address], [place], [address]. [facility], [address] [facility] [address], [place], [place], [address], tel:[phone] [place] No Information Nov-1 2-202 2 Muehl Bishop. [address] [place] [address], [address], [place], [facility], [place]. tel: [phone] Referring Provider: Caleb Martinez, [address] [place] [address] [address], [place], [address]. [facility], [address] [facility] [address], [place], [place], [address], [place] tel:[phone] [place] No Information Nov-1 0-202 2 Muehl Bisohp. [address] [place] [address], [address], [place], [facility], [place]. tel: [phone] Referring Provider: Caleb Martinez, [address] [place] [address] [address], [place], [address]. [facility] [address] [facility] [address], [place], [place], [address], tel:[phone] [place] No Information Oct-0 7-202 2 Muehl Bishop. [address] [place] [address], [address], [place], [address], [place]. tel: [phone] Referring Provider: Caleb Martinez, [address] [place] [address] [address], [place], [address]. [address], [place], [place], [address], tel:[phone] [place] No Information Oct-0 5-202 2 Muehl Bishop. [address] [place] [address], [address], [place], [address], [place]. tel: [phone] Referring Provider: Caleb Martinez, [address] [place] [address] [address], [place], [address]. [address], [place], [place], [address], tel:[phone] [place] No Information Sep-2 8202 2 Muehl Bishop. [address] [place] [address], [address], [place], [facility], [place]. tel: [phone] Referring Provider: Caleb Martinez, [address] [place] [address] [address], [place], [address]. [facility], [address] [place] [address] [address], [place], [place], [address], tel:[phone] [place] No Information Sep-2 6202 2 Muehl Bishop. [address] [place] [address], [address], [place], [facility], [place]. tel: [phone] Referring Provider: Caleb Martinez, [address] [place] [address] [address], [place], [address]. [address], [place], [place], [address], tel:[phone] [place] No Information Sep-2 1-202 2 Muehl Bishop. [address] [place] [address], [address], [place], [address], [place]. tel: [phone] Referring Provider: Caleb Martinez, [address] [place] [address] [address], [place], [address]. [facility], [address] [place] [address], [place], [place], [address], tel:[phone] [place] No Information Sep-1 2 Muehl Bishop. [address] [place] [address], [address], [place], [place], [facility], . tel: [phone] Referring Provider: Caleb Martinez, [address] [place] [address] [address], [place], [address]. [facility], [address] [place] [address], [place], [place], [address], tel:[phone] [place] No Information Sep-1 2 Muehl Bishop. [address] [place] [address], [address], [place], [place], [facility], . tel:[phone] Referring Provider: Caleb Martinez, [address] [place] [address] [address], [place], [address]. [facility] [address] [address], [place], [place], [address], tel:[phone] [place] No Information Sep-1 - 2 Abdoul Romero. . Referring Provider: Caleb Martinez, [address] [place] [address] [address], [place], [address]. [facility], [address] [place] [address], [place], [place], [address], tel:[phone] [place] Urge incontinence Sep-0 2 Muehl Bishop. [address] [place] [address], [address], [place], [place], [facility], . tel:[phone] Referring Provider: Caleb Martinez, [address] [place] [address] [address], [place], [address]. [facility] [address] [facility] 300, [place], [place], [address], tel:[phone] [place] No Information Sep-2 1 Carmella Shahy. . Referring Provider: Perez Tinsley, [facility]1 [facility] 6A/6B/12A, [place], [address]. tel:[phone] [place] [address] [facility] [address], [place], [place], [address], [place] tel:[phone] [place] No Information Sep-2 0-202 1 Heslin Lopez. . Referring Provider: Perez Tinsley, Aron [facility] [address] 6A/6B/12A, [place], [address]. tel:[phone] [place] [address] [address], [place], [place], [address], [place] tel:[phone] [place] No Information Sep-1 0-202 1 Heslin Lopez. . Referring Provider: Perez Tinsley, Aron [facility] [address] 6A/6B/12, [place], [address]. tel:[phone] [place], [place] [address]u[address], [place], [place], [address], tel:[phone] [place] No Information Sep-0 8-202 1 Heslin Lopez. . Referring Provider: Perez Tinsley, Aron [facility] [address] 6A/6B/12, [place], [address]. tel:[phone] [place] [address] [address], [place], [place], [address], [place] tel:[phone] [place] No Information Sep-0 3-202 1 Heslin Lopez. . Referring Provider: Perez Tinsley, Aron [facility] [address] 6A/6B/12, [place], [address]. tel:[phone] [place] [address] [facility] [address], [place], [place], [address], [place] tel:[phone] [place] No Information Aug-3 0-202 1 Heslin Lopez. . Referring Provider: Perez Tinsley, Elisabeth1 [facility] [address] 6A/6B/12A, [place], [address]. tel:[phone] [place] [address] [address], [place], [place], [address], [place] tel:[phone] [place] No Information 1 Heslin Lopez. . Referring Provider: Perez Tinsley, Elisabeth[address] 6A/6B/12A, [place], [address]. tel:[phone] [place] [address], [address] [address], [place], [place], [address], tel:[phone] [place] No Information 1 Heslin Lopez. . Referring Provider: Perez Tinsley, Elisabeth[address] 6A/6B/12A, [place], [address]. tel:[phone] [place] [address] [address] [facility], [place], [place], [address], tel:[phone] [place] No Information 1 Heslin Lopez. . Referring Provider: Perez Tinsley, [address] 6A/6B/12A, [place], [address]. tel:[phone] [place] [address], [address] [facility], [place], [place], [address], [place] tel:[phone] [place] No Information 1 Heslin Lopez. . Referring Provider: Perez Tinsley, [address] 6A/6B/12A, [place], [address]. tel:[phone] [place] [address] [address] [facility], [place], [place], [address], [place] tel:[phone] [place] No Information 1 Derrick Cyndie. . Referring Provider: Perez Tinsley, [address] 6A/6B/12A, [place], [address]. tel:[phone] [place], [place] [address] [facility], [place], [place], [address], [place] tel:[phone] [place] No Information 1 Heslin Lopez. . Referring Provider: Perez Tinsley, [address]ron [address] 6A/6B/12A, [place], [address]. tel:[phone] [place] [address], [address], [place], [place], [address], [place] tel:[phone] [place] No Information 1 Heslin Lopez. . Referring Provider: Perez Tinsley, Aron [facility] [address] 6A/6B/12, [place], [address]. tel:[phone] [place] [address], [address], [place], [place], [address], [place] tel:[phone] [place] No Information 1 Heslin Lopez. . Referring Provider: Perez Tinsley, Aron [facility] [address] 6A/6B/12, [place], [address]. tel:[phone] [place] [address] [address], [place], [place], [address], [place] tel:[phone] [place] No Information 1 Heslin Lopez. . Referring Provider: Perez Tinsley, Aron [facility] [address] 6A/6B/12, [place], [address]. tel:[phone] [place], [place] [address] [address], [place], [place], [address], [place] tel:[phone] [place] No Information 1 Heslin Lopez. . Referring Provider: Perez Tinsley, Aron [facility] [address] 6A/6B/12A, [place], [address]. tel:[phone] [place] [address] [address], [place], [place], [address], [place] tel:[phone] [place] No Information 1 Heslin Lopez. . Referring Provider: Aron Amaya [facility] [address] 6A/6B/12A, [place], [address]. tel:[phone] [place] [address] [address], [place], [place], [address], tel:[phone] [place] No Information 1 Heslin Lopez. . Referring Provider: Perez Tinsley, Aron [facility] [address] 6A/6B/12A, [place], [address]. tel:[phone] [place] [address], [address], [place], [place], [id number], tel:[phone] Speer No Information 1 Heslin Lopez. . Referring Provider: Perez Tinsley, Aron [facility] [address] 6A/6B/12A, [place], [address]. tel:[phone] [place] [address], [address] [facility], [place], [place], [id number], tel:[phone] Speer No Information 1 Heslin Lopez. . Referring Provider: Perze Tinsley, Aron [facility] [address] 6A/6B/12, [place], [address]. tel:[phone] [place] [address], [address], [place], [place], [address], tel:[phone] Speer No Information 1 Heslin Lopez. . Referring Provider: Perez Tinsley, Aron [facility] [address] 6A/6B/12, [place], [address]. tel:[phone] [place], [place] [address], [place], [place], [address], [place] tel:[phone] Speer No Information 1 Heslin Lopez. . Referring Provider: Perez Tinsley, Aron [facility] [address] 6A/6B/12A, [place], [address]. tel:[phone] [place] [id number] [address], [place], [place], [address], tel:[phone] Speer No Information 1 Heslin Lopez. . Referring Provider: Perez Tinsley, Elisabeth1 [facility] [address] 6A/6B/12A, [place], [address]. tel:[phone] [place] [address], [address] [place], [place] [address]e [facility], [place], [place], [address], tel:[phone] Speer No Information 1 Derrick Cyndie. . Referring Provider: Perez Tinsley, Elisabeth1 [facility] [address] 6A/6B/12A, [place], [address]. tel:[phone] [place], [place] [address] [address], [place], [place], [address], [place] tel:[phone] Speer No Information 1 Redohl Laura. . Referring Provider: Perez Tinsley, Aorn [facility] [address] 6A/6B/12, [place], [address]. tel:[phone] [place] [address], [address] [place] [address], [place], [place], [address], [place] tel:[phone] Speer No Information 1 Heslin Lopez. . Referring Provider: Perez Tinsley, Aron [facility] [address] 6A/6B/12, [place], [address]. tel:[phone] [place] [address], [place], [place], [address], tel:[phone] Speer No Information 1 Heslin Lopez. . Referring Provider: Perez Tinsley, Aron [facility] [address] 6A/6B/12A, [place], [address]. tel:[phone] [place], [place] [address]e [address], [place], [place], [address], tel:[phone] Speer No Information 0 1 Heslin Lopez. . Referring Provider: Aron Amaya [facility] [address] 6A/6B/12A, [place], [address]. tel:[phone] [place] [address], [address], [place], [place], [address], [place] tel:[phone] Speer No Information 1 Heslin Lopez. . Referring Provider: Perez Tinsley, Elisabeth1 [facility] [address] 6A/6B/12A, [place], [address]. tel:[phone] [place] [id number] [address], [place], [place], [address], [place] tel:[phone] Speer No Information 1 Heslin Lopez. . Referring Provider: Perez Tinsley, Aron [facility] [address] 6A/6B/12A, [place], [address]. tel:[phone] [place] [address], [address], [place], [place], [address], [place] tel:[phone] Speer No Information 0 1 Heslin Lopez. . Referring Provider: Perez Tinsley, Aron [facility] [address] 6A/6B/12A, [place], [address]. tel:[phone] [place], [place] [address] [address], [place], [place], [address], [place] tel:[phone] Speer No Information 1 Heslin Lopez. . Referring Provider: Perez Tinsley, Aron [facility] [address] 6A/6B/12A, [place], [address]. tel:[phone] [place] [id number] [address], [place], [place], [address], [place] tel:[phone] Speer No Information 2 1 Heslin Lopez. . Referring Provider: Perez Tinsley, Aron [facility] [address] 6A/6B/12A, [place], [address]. tel:[phone] [place] [id number] [address], [place], [place], [address], [place] tel:[phone] Speer No Information Apr-0 9- 1 Heslin Lopez. . Referring Provider: Perez Tinsley, Elisabeth1 [facility] [address] 6A/6B/12A, [place], [address]. tel:[phone] [place] [address], [address] [place], [place] [address], [place], [place], [address], [place] tel:[phone] Speer No Information Apr-0 5-202 1 Heslin Lopez. . Referring Provider: Perez Tinsley, Elisabeth1 [facility] [address] 6A/6B/12A, [place], [address]. tel:[phone] [place], [place] [address]u[address], [place], [place], [address], tel:[phone] Speer No Information Apr-0 2-202 1 [place]. . Referring Provider: Perez Tinsley, Aron [facility] [address] 6A/6B/12, [place], [address]. tel:[phone] [place] [address], [facility] [address], [place], [place], [address], [place] tel:[phone] Speer No Information Mar-2 - 1 [place]. . Referring Provider: Perez Tinsley, Aron [facility] [address] 6A/6B/12A, [place], [address]. tel:[phone] [place] [address] [address], [place], [place], [address], [place] tel:[phone] Speer No Information Mar-2 6-202 1 [place]. . Referring Provider: Perez Tinsley, Elisabeth1 [facility] [address] 6A/6B/12A, [place], [address]. tel:[phone] [place] [address], [address], [place], [place], [address], [place] tel:[phone] Speer No Information Mar-2 5- 1 Shayne Chayo. . Referring Provider: Perez Tinsley, [address] [facility] [address] 6A/6B/12A, [place], [address]. tel:[phone] [place] [address], [place], [place], [address], tel:[phone] Speer No Information Mar-1 8- 1 Shayne Chayo. . Referring Provider: Perez Tinsley, [address] [facility] [address] 6A/6B/12, [place], [address]. tel:[phone] [place] [address], [address] [place], [place] [address]e [facility], [place], [place], [address], [place] tel:[phone] Speer No Information Mar-1 - 1 [place]. . Referring Provider: Perez Tinsley, [address] [facility] [address] 6A/6B/12, [place], [address]. tel:[phone] [place] [address], [address] [place] [address], [place], [place], [address], [place] tel:[phone] Speer No Information Mar-1 - 1 Shayne Chayo. . Referring Provider: Perez Tinsley, [address] [facility] [address] 6A/6B/12, [place], [address]. tel:[phone] [place] [address], [address] [place] [address], [place], [place], [address], [place] tel:[phone] Speer No Information Mar-0 - 1 [place]. . Referring Provider: Perez Tinsley, [address] [facility] [address] 6A/6B/12A, [place], [address]. tel:[phone] [place] [address] 300, [place], [place], [address], [place] tel:[phone] [facility] No Information Mar-0 5- 1 Brady Gill . . Referring Provider: Perez Tinsley, [address] [facility] [address] 6A/6B/12, [place], [address]. tel:[phone] Family History Family Member Type Diagnosis Age At Onset No Information Payers Payer name Insurance type Covered green party ID Priti mcdonnell(s) [employer] [id number] Medicare [place] [id number] Social History Type Description Quantity Date Captured Comments Sex Female Smoking Status No Information Chief Complaint And Reason For Visit No Information Reason For Referral Reason For Referral No Information Plan Of Treatment Date Type Action Status Referral Ordered: Referrals: Specialist. Evaluate and Treat (related to Adjustment disorder with depressed mood) ordered Referral Ordered: Depression: Depression management program timeframe: 1 Day. (related to Depression) ordered Referral Ordered: Clinical Psychology (related to Depression) ordered Referral Ordered: Urology (related to Urge incontinence) ordered Referral Ordered: Urology (related to Urge incontinence) ordered Appointment Aleyda Dobbs BOOKED Appointment Aleyda Dobbs BOOKED Appointment Aleyda Dobbs BOOKED Appointment Aleyda Dobbs BOOKED History Of Present Illness Encounter Date Complaint History Of Prese nt Illness No Information Functional Status Date Functional Assessmen t No Information Instructions Date Instruction Additional Infor matty Prescribed activity/exercise edu cation Related to Overweight Prescribed activity/exercise edu cation Related to Overweight Dietary needs education Related to Overweight Dietary needs education Related to Overweight Giving encouragement to exercise Related to Overweight Giving encouragement to exercise Related to Overweight Assessments Type Assessment Date No Information Patient Care Teams Name Effective Dates (start - stop) Status Members No Information
--- OUTSIDE RECORDS SUMMARY | 2024-06-04 00:47 | XMS_ITS | Clinical Summary ---
Author Organization 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 Name Role Phone Charles Armendariz DO Primary Care Provider [phone] David Vanegas MD Unavailable [phone] Allergies Active Allergy Reactions Criticality Noted Date Comments Ciprofloxacin Nausea only Low 09/08/2022 Daptomycin Diarrhea Low 06/29/2020 Doxycycline Unknown Low 09/19/2019 Canagliflozin Diarrhea Low 10/28/2021 Empagliflozin Diarrhea Low 04/21/2021 Lisinopril Cough Low 08/13/2018 Semaglutide Diarrhea High 01/27/2021 Povidone-Iodine Rash Medium 05/05/2017 Fdtwevb-Nss-Irr Reductase Inhibitors Muscle pain Medium 11/05/2020 Valsartan [...] 325 mg (65 mg of elemental iron) tabletIndicati ons:Iron Deficiency Anemia Take 1 tablet (325 mg total) by mouth 2 (two) times a day 05/19/[address] (CYMBALTA) 20 mg capsuleIndicat ions:Anxiety with Depression Take 1 capsule (20 mg total) by mouth every morning Active fluticasone propionate (FLONASE) 50 mcg/actuation nasal sprayIndicatio ns:Allergic Rhinitis Administer 2 sprays into each nostril every morning Active cholecalcifero l (VITAMIN D-3) 5,000 unit tabletIndicati ons:Prevention of Vitamin D Deficiency Take 1 tablet (5,000 Units total) by mouth every morning Activ e eo-teewpew-nmi -iron fm-FA-vitK 18 mg-400 mcg- 25 mcg tabletIndicati ons:Vitamin Deficiency Prevention Take 0.5 tablets by mouth 2 (two) times a day 09/15/19 12 Active metoprolol XL (TOPROL-XL) 25 mg extended release tabletIndicati ons:hypertensi on Take 1 tablet (25 mg total) by mouth every morning 06/24/19 21 Active rivaroxaban (Xarelto) 2.5 mg tabletIndicati ons:patient unsure why she is on this med. Take 1 tablet (2.5 mg total) by mouth 2 (two) times a day 01/28/20 21 Active gabapentin (NEURONTIN) 300 mg capsuleIndicat ions:Neuropath ic Pain Take 1 capsule (300 mg total) by mouth 2 (two) times a day 11/21/19 21 Active blood glucose diagnostic (OneTouch Ultra Test) strip OneTouch Ultra Test strips Take 1 strip 4 times a day by miscell. route as directed for 90 days. Active estradioL (ESTRACE) 0.01 % (0.1 mg/gram) vaginal creamIndicatio ns:Atrophy of Vulva Insert 4 g into the vagina as needed 06/01/[address] (NexIUM) 20 mg capsuleIndicat ions:acid reflux Take 1 capsule (20 mg total) by mouth every morning Active albuterol HFA (PROVENTIL HFA,VENTOLIN HFA,PROAIR HFA) 90 mcg/actuation inhalerIndicat ions:Acute Asthma Attack Inhale 2 puffs as needed for wheezing or shortness of breath 02/23/20 23 Active ondansetron (ZOFRAN) 4 mg tablet Take 1 tablet (4 mg total) by mouth as needed for nausea or vomiting 02/07/20 23 Active insulin glargine (TOUJEO) 300 unit/mL (1.5 mL) pen for injectionIndic ations:type 2 diabetes mellitus Inject 60 Units under the skin nightly 30 mL 3 03/09/19 24 Active Additional Information Patient taking differently: 55-60 Unitssubcutaneous Nightly, Indications: type 2 diabetes mellitus, Informant: Self, Reported on 04/30/2024 propylene glycol (SYSTANE COMPLETE OPHT)Indicatio ns:dry eye Administer 1 drop into both eyes every morning Active cetirizine (ZyrTEC) 10 mg tabletIndicati ons:Allergic Rhinitis Take 1 tablet (10 mg total) by mouth every morning Active CALCIUM ORALIndication s:supplement Take 1 tablet by mouth every morning Activ e POTASSIUM ORALIndication s:supplement Take 1 tablet by mouth every morning Activ e cyclobenzaprin e (FLEXERIL) 5 mg tablet Take 1 tablet [...] (81 mg total) by mouth daily Active glimepiride (AMARYL) 4 mg tabletIndicati ons:Type 2 diabetes mellitus with hyperglycemia, with long-term current use of insulin (HCC) Take 1 tablet (4 mg total) by mouth 2 (two) times a day after breakfast and dinner 180 tablet 3 10/24/19 24 025 Active metFORMIN (GLUCOPHAGE) 1,000 mg tabletIndicati ons:Type 2 diabetes mellitus with hyperglycemia, with long-term current use of insulin (HCC) TAKE 1 TABLET BY MOUTH TWICE DAILY WITH MEALS 180 tablet 3 01/08/20 24 Active isoniazid (NYDRAZID) 300 mg tabletIndicati ons:Mycobacter iosis Take 1 tablet (300 mg total) by mouth daily 30 tablet 5 01/01/20 24 025 Active pyridoxine (VITAMIN B-6) 50 mg tablet Take 1 tablet (50 mg total) by mouth daily 30 tablet 5 01/01/20 24 025 Active magnesium oxide (MAG-OX) 400 mg (241.3 mg elemental magnesium) tablet Take 1 tablet (400 mg total) by mouth daily Active atorvastatin (LIPITOR) 40 mg tabletIndicati ons:Hyperlipid emia associated with type 2 diabetes mellitus (HCC) TAKE 1 TABLET BY MOUTH EVERY NIGHT 90 tablet 3 02/05/20 24 Active fluticasone propion-salmet Chriss (ADVAIR DISKUS) 100-50 mcg/dose diskus inhaler Inhale 1 puff 2 (two) times a day 01/19/20 24 Active hydroxychloroq uine (PLAQUENIL) 200 mg tabletIndicati ons:Rheumatoid Arthritis Take 1 tablet (200 mg total) by mouth 2 (two) times a day 180 tablet 1 04/03/19 25 Active ascorbic acid (vitamin C) 250 mg tablet Take 1 tablet (250 mg total) by mouth daily Active BD Ultra-Fine Mini Pen Needle 31 gauge x 3/16 needle USE TO INJECT INSULIN DAILY 90 each 1 05/25/19 25 Active leflunomide (ARAVA) 20 mg tablet Take 1 tablet (20 mg total) by mouth daily 90 tablet 05/30/19 25 Active ciprofloxacin (CIPRO) 500 mg tablet TAKE 1 TABLET BY MOUTH TWICE DAILY FOR SYMPTOMS OR UTI 08/26/19 23 Disconti nued(All ergic response ) BD Ultra-Fine Mini Pen Needle 31 gauge x 3/16 needle USE TO INJECT INSULIN DAILY 90 each 1 10/02/19 24 025 Disconti nued(Reo rder) leflunomide (ARAVA) 20 mg tablet Take 1 tablet (20 mg total) by mouth daily 90 tablet 10/27/19 24 025 Disconti nued(Reo rder) Active Problems Problem Noted Date Diagnosed Date LTBI (latent tuberculosis infection) 03/15/2024 Assessment & Plan (05/16/2024 2:26 PM CDT): - Continue INH/B6 to complete 6 months of therapy (stop date 06/30/24) for treatment of latent TB - Discussed with patient once again that her IGRA may always be positive so she should make her providers aware that she has been treated for latent TB. Also discussed that her risk of developing active TB is very low but she should contact us if she has any concerning symptoms. Assessment & Plan (03/15/2024 10:09 AM SOCIOLOGY PROFESSOR): - 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 She will call with any issues. CHF (congestive heart failure) 11/09/2023 Hyperlipidemia associated with type 2 diabetes vivek dill 10/24/2023 Assessment & Plan (04/30/2024 2:13 PM SOCIOLOGY PROFESSOR): Chronic problem. Currently taking Atorvastatin 40mg. Last lipid panel: 03/09/23 LDL=37 RF=820. Will update labs. Does not mychart. Verified phone #/address to contact re: results. Assessment & Plan (10/24/2023 3:19 PM CDT): Chronic problem. Currently taking Atorvastatin 40mg. Last lipid panel: 03/09/23 LDL=37 GO=490. Positive TB test 09/19/2023 Assessment & Plan (01/01/2024 12:37 PM SOCIOLOGY PROFESSOR): - Unable to tolerate rifabutin as she [...] CBC and CMP in 1 month at [facility] - Ok to start biologic for rheumatoid arthritis after she has been on rifabutin for 1 month. Will forward note to rheumatology Class 2 severe obesity due t o excess calories with serious comorbidity and body mass index (BMI) of 39.0 to 39.9 in adult 03/09/2023 Assessment & Plan (03/09/2023 10:05 AM SOCIOLOGY PROFESSOR): Discussed healthy diet and importance of regular [...] 03/22/2022 Assessment & Plan (03/22/2022 8:59 AM SOCIOLOGY PROFESSOR): Chronic problem, stable. Discussed healthy diet and importance of regular physical activity (20- 30min/day, 150min/wk). Bunion 03/13/2022 Hammer toe 03/13/2022 Dystrophia unguium 03/13/2022 Foot callus 03/13/2022 History of amputation of left great toe 03/13/19 23 Stage 2 chronic kidney disease 10/28/2021 Overview (12/05/2022): cannot affored krenda and itol to sglt2 cannot affored krenda and itol to sglt2 Nocturia 04/14/2021 Palpitations 02/05/2021 Cardiac arrhythmia, unspecified 01/27/2021 Encounter for surgical after care following surgery of circulatory system 09/04/2020 Amputation of left great toe 07/21/2020 Ulcer of toe of left foot, limited to breakdown of skin 07/02/2020 Overview (07/02/2020): Added automatically from request for surgery [id number] Median neuropathy, left 11/19/2019 Overview (11/19/2019): Added automatically from request for surgery [id number] Ulnar neuropathy of left upper extremity 020 Overview (11/19/2019): Added automatically from request for surgery [id number] Anxiety 05/24/2019 Asthma 05/24/2019 Brachial neuritis 05/24/2019 Major depressive disorder 05/24/2019 Gastroesophageal reflux disease without esophagi tis 05/24/2019 Gout 05/24/2019 Spleen hematoma 05/24/2019 Osteoarthritis 05/24/2019 Primary localized osteoarthrosis of shoulder reg ion 05/24/2019 Recurrent dislocation of shoulder region 020 Hypothyroidism 04/10/2019 Assessment & Plan (04/30/2024 2:14 PM SOCIOLOGY PROFESSOR): Chronic problem. Currently taking levothyroxine 100mcg. Clinically & biochemically euthyroid at this time. Aware to take 1st thing in morning, 30-60 minutes before food/drink/other medications. Will update labs. Does not mychart. Verified phone #/address to contact re: results. Assessment & Plan (10/24/2023 3:19 PM CDT): [...] phone #/address to contact re: results. Component Ref Rng 11/25/2019 09/08/2022 TSH 0.30 - 4.20 mcIUnit/mL 2.88 2.37 Component Ref Rng 09/08/2022 Free T4 0.90 - 1.70 ng/dL 1.23 Assessment & Plan (03/09/2023 9:54 AM SOCIOLOGY PROFESSOR): Chronic problem. Currently taking levothyroxine 100mcg. 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 Currently taking Gabapentin 300mg bid. Reviewed foot care; needs to lotion daily. Aware to check feet nightly, not to go barefoot. Assessment & Plan (10/24/2023 3:19 PM CDT): [...] barefoot. Assessment & Plan (03/09/2023 9:47 AM SOCIOLOGY PROFESSOR): Chronic problem. Currently taking gabapentin. Aware to check feet nightly & not go barefoot. Assessment & Plan (09/08/2022 11:14 AM CDT): Chronic problem. Currently taking gabapentin. Aware to check feet nightly. Assessment & Plan (03/21/2022 8:54 AM SOCIOLOGY PROFESSOR): Chronic problem. Currently taking gabapentin. Aware to check feet nightly. Assessment & Plan (05/13/2021 10:51 AM CDT): Foot care discussed Assessment & Plan (11/05/2020 2:29 PM CDT): Foot care discussed The patient does not feel that Neurontin helps of will discontinue Assessment & Plan (04/02/2020 1:40 PM SOCIOLOGY PROFESSOR): On Neurontin Foot care discussed Assessment & Plan (10/19/2017 10:52 AM CDT): Foot care discussed On neurointin Advised on seeing foot dr. Hyperlipidemia 10/19/2017 Assessment & Plan (03/09/2023 9:48 AM SOCIOLOGY PROFESSOR): Chronic problem. Current on atorvastatin 40mg daily. Last lipid panel: 11/04/21 LDL=26, FO=469. Will update labs today. Does not mychart. Verified phone #/address to contact re: results. Assessment & Plan (09/08/2022 11:14 AM CDT): Chronic problem. Current on atorvastatin 40mg daily. 11/04/21 LDL=26. No changes. Assessment & Plan (03/21/2022 8:53 AM SOCIOLOGY PROFESSOR): Chronic problem. Current on atorvastatin 40mg daily. [...] Lipitor Assessment & Plan (04/02/2020 1:37 PM SOCIOLOGY PROFESSOR): Goal of treatment , LDL cholesterol less [...] therapy. Assessment & Plan (03/12/2019 12:24 PM SOCIOLOGY PROFESSOR): Goal of treatment , LDL cholesterol less [...] use of insulin 01/17/2017 Assessment & Plan (04/30/2024 2:42 PM SOCIOLOGY PROFESSOR): Chronic problem, A1c stable but uncontrolled at 8.0% unable to exercise at this time d/t recent fall with injuries. Discussed diet. Currently being treated for UTI & on abx also. Current medications: Metformin 1000mg twice daily with meals Glimepiride 4mg with breakfast & dinner Toujeo 60 units every evening Will update labs. Does not mychart. Verified phone #/address to contact re: results. UTD on DM eye exam (03/06/23 at [facility]). Had appt summer 2023; letter sent to get copy of report. Discussed [...] skin breakdown and infection. Assessment & Plan (10/24/2023 3:40 PM CDT): Chronic problem, A1c worsened from 7.5% 08/10/23 to now 8.0%. does not want to add another medication. Agreeable to increase glimepride to 4mg with breakfast & dinner Current medications: Metformin 1000mg twice daily with meals Glimepiride 4mg with breakfast & dinner Toujeo 60 units every evening UTD on labs. UTD on DM eye exam (03/06/23 at [facility]). Discussed need to increase activity outside of [...] UTD on DM eye exam (03/06/23 at [facility]). Discussed need to increase activity outside of [...] infection. Assessment & Plan (03/09/2023 10:02 AM SOCIOLOGY PROFESSOR): Chronic problem, A1c worsening. A1c breanna from [...] re: results. DM eye exam 03/06/23 at [facility]. Letter sent to get copy of report. [...] housework. Assessment & Plan (03/22/2022 9:20 AM SOCIOLOGY PROFESSOR): Chronic problem, not at goal. Continue: Metformin [...] consider. Assessment & Plan (03/12/2019 12:23 PM SOCIOLOGY PROFESSOR): Hba1c was Lab Results Component Value Date [...] goal hba1c is under 7.0 to prevent fpc diabetes complications ( eye , kidney and [...] Humalog. Assessment & Plan (03/30/2017 12:29 PM SOCIOLOGY PROFESSOR): A1c 6.6 but she does have anemia with elevated RDW. Bydureon since 12/2016 may have also helped to improve A1c but will be stopping that for now. Will evaluate again at next Ov. Assessment & Plan (01/17/2017 10:11 AM SOCIOLOGY PROFESSOR): Hba1c was 8.8 today, indicating inadequate DM [...] discussed. Start Bydureon , once a week Hypertension associated with type 2 diabetes mónica litus 01/17/2017 Assessment & Plan (04/30/2024 2:14 PM SOCIOLOGY PROFESSOR): Chronic problem, well controlled on current Metoprolol XL 25mg daily, furosemide 20mg daily Will update labs today. Does not mychart. Verified phone #/address to contact re: results. Assessment & Plan (03/09/2023 9:47 AM SOCIOLOGY PROFESSOR): Chronic problem, well controlled on current Metoprolol XL 25mg daily, furosemide 20mg daily Will update labs today. Does not mychart. Verified phone #/address to contact re: results. Assessment & Plan (09/08/2022 11:14 AM CDT): Chronic problem, well controlled on current Metoprolol XL 25mg daily, furosemide 20mg daily No changes at this time. Assessment & Plan (03/22/2022 9:00 AM SOCIOLOGY PROFESSOR): Chronic problem, well controlled on current metoprolol XL 25mg daily. No changes at this time. Assessment & Plan (07/02/2020 4:04 PM CDT): Goal blood pressure is less than 140/85 Low salt diet was discussed andd recommended The importance of daily aerobic exercise was also emphasized. Continue current meds Assessment & Plan (04/02/2020 1:38 PM SOCIOLOGY PROFESSOR): Goal blood pressure is less than 140/85 [...] MA. Assessment & Plan (03/12/2019 12:24 PM SOCIOLOGY PROFESSOR): Goal blood pressure is less than 140/85 [...] medications. Assessment & Plan (03/30/2017 12:33 PM SOCIOLOGY PROFESSOR): Controlled on current medications. Assessment & Plan (01/17/2017 10:12 AM SOCIOLOGY PROFESSOR): Goal blood pressure is less than 140/85 [...] finger 03/29/2011 Atherosclerotic heart diseas e of [place] coronary artery without angina pectoris 09/09/2010 Chronic diastolic (congestive) heart failure 11/2009 Overview (05/15/2023): intol darcy lucia ef too good for entrsto Resolved Problems Problem Noted Date Diagnosed Date Resolved Date Diabetic peripheral neuropathy 03/13/2022 08/09/2023 Morbid (severe) obesity due to [...] atorvastatin Assessment & Plan (03/30/2017 12:33 PM SOCIOLOGY PROFESSOR): Continue statin Obesity due to excess calories 11/05/2015 03/21/2022 Assessment & Plan (03/30/2017 12:20 PM SOCIOLOGY PROFESSOR): Current exercise will be reduced with completion of Pt. Advised to add walking or other home based exercise to current house work. Elevated erythrocyte sedimentation rate 12/27/2013 03/21/2022 Need for immunization against influenza 12/27/2013 03/21/2022 Encounters Date Type Department Care Team Description 05/16/2024 9:40 AM CDT Office Visit [facility] Infectious Diseases [address] [place] [address] [address] [place] [phone] Ana Laura Ramires NP LTBI (latent tuberculosis infection) (Primary Dx) 05/08/2024 Orders Only [facility] Diabetes and Endocrinology [address] [place] [phone] Oliver Joel MD 05/02/2024 Results Follow-Up [facility] Diabetes and Endocrinology [address] [place] [address] [phone] Stacy Hernandez NP 04/30/2024 2:45 PM SOCIOLOGY PROFESSOR Lab [facility] Outpatient Lab at [address] [phone] Type 2 diabetes mellitus with hyperglycemia, with long-term current use of insulin (HCC) (Primary Dx) 04/30/2024 2:40 PM SOCIOLOGY PROFESSOR - 04/30/2024 11:59 PM SOCIOLOGY PROFESSOR Hospital Encounter [address] [id number] Type 2 diabetes mellitus with hyperglycemia, with long-term current use of insulin (HCC); Hypertension associated with type 2 diabetes mellitus (HCC); Hyperlipidemia associated with type 2 diabetes mellitus (HCC); Hypothyroidism, unspecified type Discharge Disposition: Discharge to home or self care 04/30/2024 2:00 PM SOCIOLOGY PROFESSOR Office Visit [facility] Diabetes and Endocrinology [address] [place] [address] [phone] Stacy Hernandez NP Type 2 diabetes mellitus with hyperglycemia, with long-term current use of insulin (HCC) (Primary Dx); Hyperlipidemia associated with type 2 diabetes mellitus (HCC); Diabetic polyneuropathy associated with type 2 diabetes mellitus (HCC); Hypertension associated with type 2 diabetes mellitus (HCC); Hypothyroidism, unspecified type 04/30/2024 Orders Only [facility] Medical [facility] Diabetes and Endocrinology [address] [place] [phone] Oliver Joel MD 04/26/2024 Telephone [facility] Diabetes and Endocrinology [address] [place] [address] [phone] Schleeper, Stacy R., BORDER INSPECTOR Forms/questionnaires (SENIOR WIND TURBINE TECHNICIAN) 04/09/2024 Telephone [facility] Infectious Diseases [address] [place] [phone] Chayo Alcazar LCSW 04/04/2024 Telephone [facility] Rheumatology [address] [place] [phone] JodieArnulfo tranise 04/02/2024 11:40 AM SOCIOLOGY PROFESSOR Office Visit [facility] Rheumatology [address] Floor [address] [place] [phone] Shawanda De La Cruz NP Rheumatoid arthritis involving multiple sites with positive rheumatoid factor (HCC) (Primary Dx); High risk medication use 04/02/2024 11:10 AM SOCIOLOGY PROFESSOR Clinical Support [facility] Bone Health [address] [place] [address] [place] [phone] Other specified disorders of bone density and structure, left thigh (Primary Dx); Rheumatoid arthritis involving multiple sites with positive rheumatoid factor (HCC); 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; nursing home (current) use of anticoagulants 03/15/2024 Telephone [facility] Infectious Diseases [address] [place] [phone] Bethany Watkins Kayy Lab results 03/15/2024 Orders Only [facility] Infectious Diseases [address] [place] [phone] Ana Laura Ramires NP LTBI (latent tuberculosis infection) (Primary Dx) 03/14/2024 9:09 AM SOCIOLOGY PROFESSOR - 03/14/2024 11:59 PM SOCIOLOGY PROFESSOR Hospital Encounter [facility] [address] [place] [address] Discharge Disposition: Discharge to home or self care 03/14/2024 8:30 AM SOCIOLOGY PROFESSOR Office Visit [facility] Infectious Diseases [address] [place] [phone] Ana Laura Ramires NP LTBI (latent tuberculosis infection) (Primary Dx) from Last 3 Months Immunizations Immunization Administration Dates Next Due Influenza, Quadrivalent, Spl [...] and 2011 CARPAL TUNNEL RELEASE Bilateral x3, 1988, 1989, and 2010 MULTIPLE TOOTH EXTRACTIONS 02/27/1997 [...] artery disease Coronary artery disease s/p silent [place] Hammer toe Hammer toe; Comm ents: 06/17/2015 - hammer toe surgery when pin [...] back pain Right foot pain Sjogren's syndrome Trigger finger, acquired Claustrophobia Fibromyalgia fibromyalgia Sleep [...] on file Legal Sex Female 12:14 AM SOCIOLOGY PROFESSOR Gender Identity Not on file Sexual Orientation Not on file Obstetrics History Last Filed Vital Signs Vital Sign Reading Time Taken Comments Blood Pressure 148/74 05/16/2024 9:44 AM CDT Pulse 81 05/16/2024 9:44 AM CDT Temperature 36.6 C (97.9 F) 05/16/2024 9:44 AM CDT Respiratory Rate 21 12/08/2023 9:12 AM CDT Oxygen Saturation 100% 05/16/2024 9:44 AM CDT Inhaled Oxygen Concentration - - Weight 96.6 kg (213 lb) 05/16/2024 9:44 AM CDT Height 154.9 cm (5' 0.98 ) 05/16/2024 9:44 AM CD T Body Mass Index 40.27 05/16/2024 9:44 AM CDT Plan of Treatment Health Maintenance Due Date Last Done Comments Colon Cancer Screening-Colonoscopy 1952 Hepatitis B Screening 1970 Pneumococcal vaccine 65+ (1 of 2 - PCV) 06/20/1971 Zoster Vaccine (1 of 2) 06/20/1971 Well Visit 65+ 2017 Depression Screening 05/13/2022 05/13/2021, 07/02/2020, 11/25/2019, Additional history exists Covid-19 Vaccine (5 - 2023-2 5 season) 2023 09/28/2021, 03/22/2021, 06/10/2020, Additional history exists Breast Cancer Screening-Mammogram 12/01/2023 023, 10/07/2020 Dilated Eye Exam 09/03/2024 09/04/2023, 09/2023, 02/18/2021, Additional history exists Foot Exam 10/23/2024 10/24/2023, 08/27, 11/04/2021, Additional history exists Hemoglobin A1C 10/31/2024 04/30/2024, 09/28, 08/10/2023, Additional history exists Fall Risk Assessment 12/07/2024 12/08/2023 Albumin Creatinine Ratio, Urine 04/30/2025 04/30/2024, 03/09/2023, 11/04/2021, Additional history exists Lipid Panel 04/30/2025 04/30/2024, 02/27, 11/04/2021, Additional history exists eGFR 04/30/2025 04/30/2024, 03/0 02/2024, 03/26/2024, Additional history exists Osteoporosis Screening-Bone Density Scan 04/02/2026 04/02/2024, 09/23/2021, 09/23/2021 DTaP/Tdap/Td Vaccine (2 - Td or Tdap) 09/15/2031 09/14/2021 Hepatitis C Screening Completed 07/03/2023, 020 Influenza Vaccine Completed 01/01/2024, , 12/09/2019, Additional history exists Medical Devices Implanted Type Area Manager Channel Device Identifier Shelf Expiration Date Model / Serial / Lot Allosource [id number] Freeze Dried Chips Graft 15ml Bone Cancellous Cortical - [id number] Implanted:Qty: 1 on 08/14/2018 by Pradip Whalen MD at [facility] Bone Allosource 08/28/2022 [id number] / / [id number] Allosource [id number] Allogro Freeze Dried Graft 15ml Bone Demineralized Bone Matrix - [id number] Implanted:Qty: 1 on 08/14/2018 by Pradip Whalen MD at [facility] Bone Allosource 03/15/2023 [id number] / / [id number] Intraocular Lens Bilateral : Eye Orthohelix [id number] Maxtorque 4mm 37.5mm Cannulated Self Drill Foot Ankle Long Thread - [id number] Implanted:Qty: 1 on 08/14/2018 by Pradip Whalen MD at [facility] Right: Foot Orthohelix [id number] / / [employer] [id number] Cristobal .062in 9in Style 1 Wire Fixation Stainless Steel - [id number] Implanted:Qty: 1 on 08/14/2018 by Pradip Whalen MD at [facility] Right: First Toe [employer] [id number] / / Orthohelix Mxl-002-2a Maxlock Extreme 2 Hole [place] Alpha Plate Bone Nonsterile - [id number] Implanted:Qty: 1 on 08/14/2018 by Pradip Whalen MD at [facility] Right: Foot Orthohelix MXL-002-2A / / Orthohelix [id number] Maxtorque 5.5mm 50mm Cannulated Self Drill Foot Ankle Long Thread - [id number] Implanted:Qty: 1 on 08/14/2018 by Pradip Whalen MD at [facility] Right: Foot Orthohelix MSD-010-55- 050L / / Orthohelix [id number] Maxtorque 5.5mm 55mm Cannulated Self Drill Foot Ankle Long Thread - [id number] Implanted:Qty: 1 on 08/14/2018 by Pradip Whalen MD at [facility] Right: Foot Orthohelix MSD-010-55- 055L / / Orthohelix [id number] Maxtorque 7mm 70mm Cannulated Self Drill Foot Ankle Petite Thread - [id number] Implanted:Qty: 1 on 08/14/2018 by Pradip Whalen MD at [facility] Right: Foot Orthohelix MSD-010-70- 070P / / Orthohelix [id number] 4mm 26mm Nonlock Foot Ankle Screw Bone Nonsterile Maxlock Extreme - [id number] Implanted:Qty: 2 on 08/14/2018 by Pradip Whalen MD at [facility] Right: Foot Orthohelix TRAIN SYSTEM OPERATOR-011-402 6 / / Orthohelix [id number] Maxlock Extreme 4mm 28mm Nonlock Foot Ankle Screw Bone Nonsterile Latex Free - [id number] Implanted:Qty: 1 on 08/14/2018 by Pradip Whalen MD at [facility] Right: Foot Orthohelix TRAIN SYSTEM OPERATOR-011-402 8 / / Orthohelix [id number] Maxlock Extreme 4mm 24mm Nonlock Foot Ankle Screw Bone Nonsterile - [id number] Implanted:Qty: 1 on 08/14/2018 by Pradip Whalen MD at [facility] Right: Foot Orthohelix TRAIN SYSTEM OPERATOR-011-40- 24 / / Explanted Type Area Manager Channel Device Identifier Shelf Expiration Date Model / Serial / Lot Orthohelix A Operator-040 [place] Wire Fixation Nonsterile Latex Free - [id number] Explanted:Qty: 2 on 08/14/[address] [facility] Right: Foot Orthohelix TRAIN SYSTEM OPERATOR-040 / / Procedures Procedure Name Priority Date/Time Associated Diagnosis Comments EGFR Routine 04/30/2024 2:40 PM SOCIOLOGY PROFESSOR Type 2 diabetes mellitus with hyperglycemia, with long-term current use of insulin (HCC) Hypertension associated with type 2 diabetes mellitus (HCC) TSH Routine 04/30/2024 2:40 PM SOCIOLOGY PROFESSOR Hypothyroidism, unspecified type T4, FREE Routine 04/30/2024 2:40 PM SOCIOLOGY PROFESSOR Hypothyroidism, unspecified type LIPID PANEL Routine 04/30/2024 2:40 PM SOCIOLOGY PROFESSOR Type 2 diabetes mellitus with hyperglycemia, with long-term current use of insulin (HCC) Hyperlipidemia associated with type 2 diabetes mellitus (HCC) COMPREHENSIVE METABOLIC PANEL Routine 04/30/2024 2:40 PM SOCIOLOGY PROFESSOR Type 2 diabetes mellitus with hyperglycemia, with long-term current use of insulin (HCC) Hypertension associated with type 2 diabetes mellitus (HCC) ALBUMIN CREATININE RATIO, URINE Routine 04/30/2024 2:40 PM SOCIOLOGY PROFESSOR Type 2 diabetes mellitus with hyperglycemia, with long-term current use of insulin (HCC) POCT GLUCOSE Routine 04/30/2024 1:58 PM SOCIOLOGY PROFESSOR Type 2 diabetes mellitus with hyperglycemia, with long-term current use of insulin (HCC) POCT HEMOGLOBIN A1C Routine 04/30/2024 1 :58 PM SOCIOLOGY PROFESSOR Type 2 diabetes mellitus with hyperglycemia, with long-term current use of insulin (HCC) COMPREHENSIVE METABOLIC PANEL Routine 04/27/2024 2:21 AM SOCIOLOGY PROFESSOR DEXA AXIAL SKELETON BONE DENSITY 1 OR MORE SITES Schedule Routine, Read Routine (OP Routine) 04/02/2024 11:04 AM SOCIOLOGY PROFESSOR Rheumatoid arthritis involving multiple sites with positive rheumatoid factor (HCC) COMPREHENSIVE METABOLIC PANEL (OUTREACH) Routine 03/26/2024 1:16 PM SOCIOLOGY PROFESSOR LTBI (latent tuberculosis infection) CBC WITH AUTO DIFFERENTIAL Routine 03/26/2024 1:15 PM SOCIOLOGY PROFESSOR LTBI (latent tuberculosis infection) EGFR Routine 03/14/2024 9:09 AM SOCIOLOGY PROFESSOR LTBI (latent tuberculosis infection) DIFFERENTIAL AUTO Routine 03/14/2024 9:0 9 AM SOCIOLOGY PROFESSOR LTBI (latent tuberculosis infection) GLUCOSE, RANDOM (OUTREACH) Routine 03/14/2024 9:09 AM SOCIOLOGY PROFESSOR LTBI (latent tuberculosis infection) COMPREHENSIVE METABOLIC PANEL WITHOUT GLUCOSE (OUTREACH) Routine 03/14/2024 9:09 AM SOCIOLOGY PROFESSOR LTBI (latent tuberculosis infection) CBC WITH AUTO DIFFERENTIAL Routine 03/14/2024 9:09 AM SOCIOLOGY PROFESSOR LTBI (latent tuberculosis infection) COMPREHENSIVE METABOLIC PANEL (OUTREACH) Routine 03/14/2024 9:09 AM SOCIOLOGY PROFESSOR LTBI (latent tuberculosis infection) HM DIABETES EYE EXAM Routine 09/04/2023 8:55 AM CDT HEPATITIS PANEL, ACUTE Routine 07/03/2023 10:42 AM CDT High risk medication use from Last 3 Months or Most Recently Relevant to Health Maintenance Results * (ABNORMAL) eGFR (04/30/2024 2:40 PM SOCIOLOGY PROFESSOR) eGFR 44(L) >=60 mL/min/1. 73 m2 Comment: Interpretive Data [...] interpretive data was last reviewed 2020. Blood 04/30/2024 2:40 PM SOCIOLOGY PROFESSOR 04/30/2024 11:04 PM SOCIOLOGY PROFESSOR us Stacy Hernandez BORDER INSPECTOR LAB BLOOD ORDERABLES Valery rivera Result [facility] [address] [address] [facility] [place] [address] * (ABNORMAL) Albumin Creatinine Ratio, Urine (04/30/2024 2:40 PM SOCIOLOGY PROFESSOR) Pathologist [facility] Albumin Ur 3,067.5 mg/L Comment: Interpretive Data No reference range established. Current interpretive data was last revised 2018. Creatinine Ur 81.5 mg/dL [facility] Comment: Interpretive Data No reference range established. Current interpretive data was last revised 2018. Albumin Creatinine Ratio, Ur 3,764(H) 1 - 29 mg/g [facility] Urine 04/30/2024 2:40 PM SOCIOLOGY PROFESSOR 04/30/2024 11:00 PM SOCIOLOGY PROFESSOR us Stacybruno Hernandez BORDER INSPECTOR LAB URINE ORDERABLES Valery l Result Performing Organization Address [facility] Phone Number [facility] [address] [address] [facility] [place] [address] * TSH (04/30/2024 2:40 PM SOCIOLOGY PROFESSOR) Pathologist [facility] Thyroid Stimulating Hormone 2.51 0.30 - 4.20 mcIUnit/mL Blood 04/30/2024 2:40 PM SOCIOLOGY PROFESSOR 04/30/2024 11:00 PM SOCIOLOGY PROFESSOR us Stacy Hernandez BORDER INSPECTOR LAB BLOOD ORDERABLES Valery l Result Performing Organization Address [facility] de Phone Number [facility] [address] [address] [facility] [place] [address] * T4, free (04/30/2024 2:40 PM SOCIOLOGY PROFESSOR) Pathologist [facility] Free T4 1.27 0.90 - 1.70 ng/dL Blood 04/30/2024 2:40 PM SOCIOLOGY PROFESSOR 04/30/2024 11:00 PM SOCIOLOGY PROFESSOR us Stacy Hernandez BORDER INSPECTOR LAB BLOOD ORDERABLES Valery l Result [facility] [address] [facility] Department of Laboratories [place] [id number] * Lipid panel (04/30/2024 2:40 PM SOCIOLOGY PROFESSOR) Cholesterol 119 30 - 199 mg/dL Comment: Interpretive Data Ages < or = [...] Data was last revised on 2017. Triglycerides 96 <=149 mg/dL [facility] Comment: Interpretive Data [...] Data was last revised on 2017. HDL 51 >=40 mg/dL [facility] Comment: Interpretive Data [...] was last revised on 2017. LDL, calculated 50 <=129 mg/dL [facility] Comment: Interpretive Data Ages < or = 19 years Acceptable: <110 mg/dL Borderline high: 110-129 mg/dL High: >or= 130 mg/dL Ages > or = 20 years Optimal: <100 mg/dL Near optimal: 100-129 mg/dL Borderline high: 130-159 mg/dL High: >160 mg/dL Calculated using the Avi LDL-C estimating equation. This equation was implemented on 2023. Prior to this date LDL-C was estimated using the Friedewald equation. Literature References: 1. Expert Panel on Integrated Guidelines for Cardiovascular Health and Risk Reduction in Children and Adolescents. Pediatrics 2011;128:S213 2. NCEP Expert Panel. Circulation 2004;110:227 3. Avi Hall et al. SHELBI Cardiol. 2020 June 27;5(5):540-548. doi: 10.1001/jamacardio.2020.0013 Current Interpretive Data was last revised on 2023. Non-HDL Cholesterol 68 mg/dL [facility] Comment: Interpretive Data Ages [...] 2017. Chol/HDL ratio 2 [facility] Blood 04/30/2024 2:40 PM SOCIOLOGY PROFESSOR 04/30/2024 11:00 PM SOCIOLOGY PROFESSOR us Stacy Hernandez NP LAB BLOOD ORDERABLES Valery rivera Result [facility] [address] [address] Department [place] [address] * (ABNORMAL) Comprehensive metabolic panel (04/30/2024 2:40 PM SOCIOLOGY PROFESSOR) Sodium 137 135 - 145 mmol/L Potassium, pl 4.3 3.3 - 4.9 mmol/L [facility] Chloride 102 97 - 110 mmol/L [facility] CO2 23 22 - 32 mmol/L [facility] Anion gap 12 2 - 15 mmol/L [facility] BUN 26(H) 6 - 25 mg/dL [facility] Creatinine 1.31(H) 0.60 - 1.10 mg/dL [facility] Glucose 328(H) 70 - 199 mg/dL [facility] Comment: Interpretive Data Fasting glucose >/= 126 [...] Current interpretive data was last revised 2022. Calcium 9.0 8.5 - 10.3 mg/dL [facility] Bilirubin, total 0.3 0.1 - 1.2 mg/dL [facility] Protein, pl 7.7 6.5 - 8.5 g/dL [facility] Albumin 3.5 3.5 - 5.0 g/dL [facility] Alk phos 132(H) 40 - 130 Units/L [facility] ALT 19 7 - 45 Units/L [facility] AST 34 10 - 45 Units/L [facility] Blood 04/30/2024 2:40 PM SOCIOLOGY PROFESSOR 04/30/2024 11:00 PM SOCIOLOGY PROFESSOR us Stacy Hernandez NP LAB BLOOD ORDERABLES Valery l Result [facility] [address] [address] Department [place] [address] * (ABNORMAL) POCT hemoglobin A1c (04/30/2024 1:58 PM SOCIOLOGY PROFESSOR) Pathologist [facility] Hemoglobin A1C, POC 8.0 4.0 - 5.6 % Blood 04/30/2024 1:58 PM SOCIOLOGY PROFESSOR us Stacy Hernandez NP POINT OF CARE TEST ORDERA BLES Final Result * (ABNORMAL) POCT glucose (04/30/2024 1:58 PM SOCIOLOGY PROFESSOR) Pathologist [facility] Glucose Blood, POC 324 mg/dL Blood 04/30/2024 1:58 PM SOCIOLOGY PROFESSOR us Stacy Hernandez BORDER INSPECTOR POINT OF CARE TEST ORDERA BLES Final Result * (ABNORMAL) Comprehensive metabolic panel (04/27/2024 2:21 AM SOCIOLOGY PROFESSOR) Pathologist [facility] SCRIBED Sodium 134(A) 136 - 145 mmol/L EXTERNAL LAB SCRIBED Potassium 4.4 3.5 - 5.0 mmol/L EXTERNAL LAB SCRIBED Chloride 101 98 - 107 mmol/L EXTERNAL LAB SCRIBED Carbon Dioxide 22 22 - 29 mmol/L EXTER[facility] LAB SCRIBED Anion Gap 11 8 - 16 mmol/L EXTERNAL LAB SCRIBED Urea Nitrogen (BUN) 43(A) 8 - 23 mg/dl EXTER[facility] LAB SCRIBED Creatinine 1.49(A) 0.51 - 0.95 mg/dl EXTER[facility] LAB SCRIBED Glucose 370(A) 74 - 99 mg/dl EXTER[facility] LAB SCRIBED Calcium 8.9 8.6 - 10.2 mg/dl EXTERNAL LAB SCRIBED Bilirubin 0.2 0.2 - 1.1 mg/dl EXTERNAL LAB SCRIBED Plasma Protein 7.4 6.7 - 8.6 g/dl EXTERNAL LAB SCRIBED Albumin 3.4(A) 3.5 - 5.2 g/dl EXTERNAL LAB SCRIBED Alkaline Phosphatase 188(A) 35 - 104 Units/L EXTERNAL LAB SCRIBED Alanine Transaminase (ALT) 21 <34 - NA Units/L EXTERNAL LAB SCRIBED Aspartate Transaminase (AST) 40 <33 - NA Units/L EXTERNAL LAB SCRIBED eGFR in NonAfrican Botswanan 37 <60 - NA EXTERNAL LAB Blood 04/27/2024 2:21 AM SOCIOLOGY PROFESSOR us Historical Provider LAB BLOOD ORDERABLES Edit ed Result - Final EXTERNAL LAB * Dexa Axial Skeleton Bone Density 1 or 2 Site (04/02/2024 11:04 AM SOCIOLOGY PROFESSOR) Anatomical Region Laterality Modality Body N/A Radiographic Sheron ging Narrative 04/02/2024 2:27 PM SOCIOLOGY PROFESSOR Patient Name: Aleyda Dobbs Date of : 1950 Date of scan: 04/02/2024 Bone mineral density was performed on a HoloGraph Story Discovery Densitometer. Based on machine cross-calibration and [...] mineral density scan were prepared by Agnes Cortez(Bhavana)(Vivek)(BD) CBDT who is accredited by the International Society of Clinical Densitometry. The overall patient assessment and scan interpretation were performed by Chacho Sanon M.D. who is certified by the International Society of Clinical Densitometry. [id number] Shawanda De La Cruz NP [facility] DXA PROCEDURES Final R esult * (ABNORMAL) Comprehensive metabolic panel (Outreach) (03/26/2024 1:16 PM SOCIOLOGY PROFESSOR) Glucose 173(H) 65 - 99 mg/dL [facility] Comment: For someone without known diabetes, a glucose value >125 mg/dL indicates that they may have diabetes and this should be confirmed with a follow-up test. Fasting reference interval BUN 37(H) 7 - 25 mg/dL [facility] Creatinine 1.39(H) 0.60 - 1.00 mg/dL [facility] eGFR 41(L) > OR = 60 mL/min/1.7 3m2 [facility] BUN/creat ratio 27(H) 6 - 22 (calc) [facility] Sodium 138 135 - 146 mmol/L [facility] Potassium 4.1 3.4 - 4.8 mmol/L [facility] Chloride 107 98 - 110 mmol/L [facility]Shala Br[facility] CO2 25 20 - 32 mmol/L [facility] Brouss[facility] Calcium 9.0 8.6 - 10.4 mg/dL [facility]S tr[facility] Protein, Total 7.1 6.4 - 8.4 g/dL [facility]Sh[facility] Albumin 3.4(L) 3.6 - 5.1 g/dL [facility] Globulin 3.7 2.2 - 4.0 g/dL (calc) [facility] Alb/glob ratio 0.9 0.9 - 2.3 (calc) [facility] Bilirubin, total 0.4 0.2 - 1.2 mg/dL [facility]Sh[facility] Alk phos 108 37 - 153 U/L [facility] AST 41(H) 10 - 35 U/L [facility] ALT (SGPT) 27 6 - 29 U/L [facility] Blood 03/26/2024 1:16 PM SOCIOLOGY PROFESSOR 03/26/2024 1:17 PM SOCIOLOGY PROFESSOR us Ana Laura Ramires BORDER INSPECTOR LAB BLOOD ORDERABLES Valery rivera Result [facility] [address] [place] [address] * (ABNORMAL) CBC with auto differential (03/26/2024 1:15 PM SOCIOLOGY PROFESSOR) WBC 4.5 3.8 - 10.8 Thousand/u L [facility] RBC, POC 3.35(L) 3.80 - 5.10 Million/uL [facility] Hgb 8.9(L) 11.7 - 15.5 g/dL [facility] Hct 30.1(L) 35.0 - 45.0 % [facility] MCV 89.9 80.0 - 100.0 fL [facility] MCH 26.6(L) 27.0 - 33.0 pg [facility]Shala Brouss[facility] MCHC 29.6(L) 32.0 - 36.0 g/dL [facility] [...] [facility] Blood 03/26/2024 1:15 PM SOCIOLOGY PROFESSOR 03/26/2024 1:15 PM SOCIOLOGY PROFESSOR Ana Laura Ramires NP LAB BLOOD ORDERABLES Valery rivera Result [facility] [address] [place] [address] * Glucose, random (Outreach) (03/14/2024 9:09 AM SOCIOLOGY PROFESSOR) [facility] Glucose 137 70 - 199 mg/dL Comment: [...] last revised 2022. Blood 03/14/2024 9:09 AM SOCIOLOGY PROFESSOR 03/14/2024 1:24 PM SOCIOLOGY PROFESSOR us Ana Laura Ramires BORDER INSPECTOR LAB BLOOD ORDERABLES Valery l Result Performing Organization Address City/[facility]/ZIP Co de Phone Number [facility] [place] [address] * (ABNORMAL) eGFR (03/14/2024 9:09 AM SOCIOLOGY PROFESSOR) eGFR 38(L) >=60 mL/min/1. 73 m2 Comment: [...] last reviewed 2020. Blood 03/14/2024 9:09 AM SOCIOLOGY PROFESSOR 03/14/2024 1:30 PM SOCIOLOGY PROFESSOR Ana Lauar Ramires BORDER INSPECTOR LAB BLOOD ORDERABLES Valery l Result Performing Organization Address City/[facility]/ZIP Co de Phone Number [facility] [place] [address] * Differential, auto (03/14/2024 9:09 AM SOCIOLOGY PROFESSOR) Neutrophil abs 3.8 1.5 - 6.5 K/cumm Imm gran abs 0.1 0.0 - 0.1 K/cumm [facility] Lymphocyte abs 2.2 0.8 - 3.3 K/cumm [facility] Monocyte abs 0.6 0.2 - 0.8 K/cumm [facility] Eosinophil abs 0.3 0.0 - 0.5 K/cumm [facility] Basophil abs 0.0 0.0 - 0.1 K/cumm [facility] Neutrophil pct 54.3 % [facility] Comment: Interpretive Data Percent cell count reference ranges are not reported, since discordance with absolute values may lead to misinterpretation of CBC data. Current Interpretive Data was last revised on 2017. Imm gran pct 0.9 % [facility] Comment: Interpretive Data Percent cell count reference ranges are not reported, since discordance with absolute values may lead to misinterpretation of CBC data. Current Interpretive Data was last revised on 2017. Lymphocyte pct 31.4 % [facility] Comment: Interpretive Data Percent cell count reference ranges are not reported, since discordance with absolute values may lead to misinterpretation of CBC data. Current Interpretive Data was last revised on 2017. Monocyte pct 8.0 % [facility] Comment: Interpretive Data Percent cell count reference ranges are not reported, since discordance with absolute values may lead to misinterpretation of CBC data. Current Interpretive Data was last revised on 2017. Eosinophil pct 4.8 % [facility] Comment: Interpretive Data Percent cell count reference ranges are not reported, since discordance with absolute values may lead to misinterpretation of CBC data. Current Interpretive Data was last revised on 2017. Basophil pct 0.6 % [facility] Comment: Interpretive Data Percent cell count reference ranges are not reported, since discordance with absolute values may lead to misinterpretation of CBC data. Current Interpretive Data was last revised on 2017. Blood 03/14/2024 9:09 AM SOCIOLOGY PROFESSOR 03/14/2024 1:24 PM SOCIOLOGY PROFESSOR us Ana Laura Ramires BORDER INSPECTOR LAB BLOOD ORDERABLES Valery l Result Performing Organization Address [facility]/ZIP Co de Phone Number [facility] [place] [address] * (ABNORMAL) Comprehensive metabolic panel, without glucose (Outreach) (03/14/2024 9:09 AM SOCIOLOGY PROFESSOR) Pathologist [facility] Sodium 141 135 - 145 mmol/L Potassium, pl 4.6 3.3 - 4.9 mmol/L [facility] Chloride 102 97 - 110 mmol/L [facility] CO2 28 22 - 32 mmol/L [facility] Anion gap 11 2 - 15 mmol/L [facility] BUN 29(H) 6 - 25 mg/dL [facility] Creatinine 1.48(H) 0.60 - 1.10 mg/dL [facility] Calcium 9.0 8.5 - 10.3 mg/dL [facility] Protein, pl 7.8 6.5 - 8.5 g/dL [facility] Albumin 3.5 3.5 - 5.0 g/dL [facility] Bilirubin, total 0.2 0.1 - 1.2 mg/dL [facility] Alk phos 176(H) 40 - 130 Units/L [facility] AST 88(H) 10 - 45 Units/L [facility] ALT 92(H) 7 - 45 Units/L [facility] Blood 03/14/2024 9:09 AM SOCIOLOGY PROFESSOR 03/14/2024 1:24 PM SOCIOLOGY PROFESSOR Ana Laura Ramires BORDER INSPECTOR LAB BLOOD ORDERABLES Valery l Result [facility] Department [place] [address] * (ABNORMAL) CBC with auto differential (03/14/2024 9:09 AM SOCIOLOGY PROFESSOR) Pathologist [facility] WBC 6.9 3.8 - 9.9 K/cumm Hgb 8.5(L) 11.9 - 15.5 g/dL [facility] Hct 28.8(L) 35.6 - 45.5 % [facility] Plt 181 150 - 400 K/cumm [facility] MPV 12.0 9.1 - 12.3 fL [facility] RBC 3.27(L) 3.90 - 5.20 M/cumm [facility] MCV 88.1 81.3 - 96.4 fL [facility] MCH 26.0(L) 27.1 - 33.3 pg [facility] MCHC 29.5(L) 32.3 - 35.7 g/dL [facility] RDW CV 17.1(H) 11.1 - 14.9 % [facility] RDW SD 54.5(H) 35.7 - 48.1 fL [facility] NRBC abs 0.00 0.00 - 0.01 K/cumm [facility] Blood 03/14/2024 9:09 AM SOCIOLOGY PROFESSOR 03/14/2024 1:24 PM SOCIOLOGY PROFESSOR us Ana Laura Ramires NP LAB BLOOD ORDERABLES Valery l Result [facility] [place] [address] * (ABNORMAL) DIABETES EYE EXAM (09/04/2023 8:55 AM CDT) us Historical Provider HEALTH MAINTENANCE Final Result * Hepatitis panel, acute Blood (07/03/2023 10:42 AM CDT) Hep A IgM Nonreactive Nonreactive Hep B core IgM Nonreactive Nonreactive [facility] Hep C Ab Nonreactive Nonreactive [facility] Comment:Antibodies to HCV no t detected. Does NOT exclude the possibility of recent exposure to HCV. Current interpretive data was last revised on 21 HepBsAg Nonreactive Nonreactive [facility] Blood 07/03/2023 10:4 2 AM CDT 07/03/2023 2:00 PM CDT us Shawanda De La Cruz BORDER INSPECTOR LAB MICROBIOLOGY - GENERAL ORDERABLES Final Result [facility] [place] [address] from Last 3 Months or Most Recently Relevant to Health Maintenance Insurance MEDICARE [employer] OPEN ACCESS MEDICARE [employer] OPEN ACCESS MEDICARE [facility] Address: [address] [address] [place] [address] BLUE ACCESS [employer] OPEN ACCESS Advance Directives For more information, please contact: [phone] * Full Code (Latest Code Status on File) Date Activated Date Inactivated Comments 07/20/2020 2:30 PM 07/21/2020 6:17 PM * Full Code Date Activated Date Inactivated Comments 08/14/2018 8:57 PM 08/15/2018 6:35 PM Care Teams Wire Turning Machine Operator Relationship Specialty Start Date End Date Charles Armendariz DO PCP - General 05/27/16 David Vanegas MD [address] [place] [address] Consulting Physician Cardiology 07/20/18
--- OUTSIDE RECORDS SUMMARY | 2024-06-04 00:47 | XMS_ITS | Data Portability ---
Author Organization [facility] [employer], Main Office Address [address] [place] [address] Care Team Providers Care Criminal Psychologist Name Role Phone GILBERTO ARMENDARIZ Primary Care Provider GILBERTO ARMENDARIZ Referring Provider Assessment Encounter Date Assessment Date Assessment LastModified by Organization Details LastModified Time 10/23/2023 10/23/2023 This note is dictated and transcribed by [employer]. Station Worker variances may occur. Despite proofreading, typographical errors may occur. Occasional wrong-word or 'usvui-w-zrbr' substitutions may have occurred due to the inherent limitations of voice recording. Read the chart carefully and recognize, using context, where substitutions have occurred. Not available 10/23/2023 11:57:12 11/02/2023 11/02/2023 Assessment: Nicotine smoke: 1 ppd 2681-9108 = 18 pack years Dyspnea Mild OSAHS, AHI = 13 PLMD CKD with anemia Hypomagnesemia Plan: The following were reviewed and explained to the patient: [facility] home sleep study on 10/08/15, AHI = 13 [facility] titration sleep study on 11/04/15, sleep onset [...] done as follows: Respiratory allergen panel for [facility] Serum IgE Serum total IgG, IgG1, IgG2, IgG3, IgG4 Nrngx-3-dxecwjplv in phenotype and level TB stimulated gamma [...] for now. We will try to obtain [facility] sleep study 2023. Patient will bring KOKI unit to [facility] for repair. PAP compliance downloaded and interpreted x 20 minutes. Data reviewed and explained to the patient. Average apnea/hypopnea index (AHI) is 1.4. Patient used PAP > 4 hours 89% of the time. PAP is set at 12 cmH2O. PAP will remain at 12 cmH2O. Keep ramp off. Keep humidifier at level 4. 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 Oxygen supplementation: none Patient is benefiting from [...] carrier. Patient will setup an appointment with [facility] for supplies and pressure adjustments. A [...] 01/17/2024 01/17/2024 Assessment: Nicotine smoke: 1 ppd 7046-8887 = 18 pack yearsDyspnea Mild OSAHS, AHI = 13 PLMD CKD with anemia Hypomagnesemia Mild persistent asthma Elevated BNP Plan: The following were reviewed and explained to the patient: [facility] home sleep study 10/08/15, AHI = 13 [facility] titration sleep study 11/04/15, sleep onset = 6.5 minutes, REM onset = 101.5 minutes, autoCPAP 5-15 cmH2O, PLMI = 7 [facility] titration sleep study 02/11/23 sleep onset = [...] for now. We will try to obtain [facility] sleep study and echocardiogram from 2023. Patient will bring KOKI unit to [facility] for repair. PAP is set at 12 cmH2O. PAP will remain at 12 cmH2O. Keep ramp off. Keep humidifier at level 4. 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 Oxygen supplementation: none Patient is benefiting from [...] carrier. Patient will setup an appointment with [facility] for supplies and pressure adjustments. A [...] further management. Follow-up: 3 months, March 2024 [facility]5 Not available 01/17/2024 14:07:24 03/21/2024 03/21/2024 This note is dictated and transcribed by [employer]. Station Worker variances may occur. Despite proofreading, typographical errors may occur. Occasional wrong-word or '[id number]-v-[id number]' substitutions may have occurred due to the inherent limitations of voice recording. Read the chart carefully and recognize, using context, where substitutions have occurred. Not available 03/21/2024 14:50:26 05/02/2024 05/02/2024 Assessment: Nicotine smoke: 1 ppd 0998-1338 = 18 pack yearsDyspnea Mild OSAHS, AHI = 13 PLMD CKD with anemia Hypomagnesemia Mild persistent asthma Elevated BNP Plan: The following were reviewed and explained to the patient: [facility] home sleep study 10/08/15, AHI = 13 [facility] titration sleep study 11/04/15, sleep onset = 6.5 minutes, REM onset = 101.5 minutes, autoCPAP 5-15 cmH2O, PLMI = 7 [facility] titration sleep study 02/11/23 sleep onset = [...] Hct 09/06/23 30.1% Magnesium 09/06/23 1.4 mg% Magnesium 03/18/24 1.8 mg% Lab data 11/02/23 elevated BNP KIMBERLY 12/08/23 EF 65%, moderate LAD, mod MS, mild MR, mild TR, (+) PFO General information on bronchial asthma was covered. Patient will monitor peak flow daily at [...] physician immediately. Continue Albuterol HFA as needed. Continue Advair Diskus 100/50 mcg 1 inhalation BID. [...] nephrology referral from her PCP. Patient will continue Mg Oxide 400 mg daily to keep Mg > 1.6 mg%. We will hold off on dopaminergic therapy for now. We will try to obtain [facility] sleep study and echocardiogram from 2023. Patient will bring KOKI unit to [facility] for repair. PAP is set at 12 cmH2O. PAP will remain at 12 cmH2O. Keep ramp off. Keep humidifier at level 4. 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 Oxygen supplementation: none Patient is benefiting from [...] carrier. Patient will setup an appointment with [facility] for supplies and pressure adjustments. A [...] records to PCP for further management. Follow-up: 9 months, January 2025 [facility] Not available 05/02/2024 11:40:53 Plan of Treatment Reminders Order Date Submit Date Provider Last Modified By Organization Details Last Modified Time Details Appointments Establish ed Patient 2024 01:30P Rafael Saravia DPM Not available Not available Not available Any 15 2024 10:00A M Devin Benitez MD Not available Not available Not available Lab magnesium , serum or plasma [address] (Lab), [address] [place], [address], 05/02/2024 11:42:26 magnesium , serum or plasma 2023 025 [facility] (Lab), [address] [place], [address], 03/18/2024 17:29:00 alpha-1-a ntitrypsi n (aat) phenotype , serum [address] (Lab), [address] [place], [address], 02/08/2024 14:04:07 BNP (B-type natriuret ic peptide), serum or plasma 2023 024 [facility] (Lab), [address] [place], [address], 11/02/2023 18:38:32 ige, total, serum 2023 024 [facility] (Lab), [address] [place], [address], 11/13/2023 13:28:28 tb (M tuberculo sis), ifn-gamma eliane, blood [address] (Lab), [address] [place], [address], 02/08/2024 14:04:07 eosinophi l count, manual, blood (OBS) [address] (Lab), [address] [place], [address], 02/08/2024 14:04:[address] s 1+2+3+4, serum [address] (Lab), [address] [place], [address], 02/08/2024 14:04:07 respirato ry allergen panel, [facility] A, serum 2023 024 [email or web address] 2 [facility] (Lab), [address] [place], [address], 02/08/2024 14:04:07 respirato ry allergen panel - [facility] b 2023 024 [email or web address] 2 [facility] (Lab), [address] [place], [address], 02/08/2024 14:04:08 Referral None recorded. Procedures None recorded. Surgeries None recorded. Imaging None recorded. Medication Orders magnesium oxide 400 mg (241.3 mg magnesium ) tablet 2024 025 [facility], [address], [place], [id number], 05/02/2024 11:42:36 Advair Diskus 100 mcg-50 mcg/dose powder for inhalatio n 2024 025 [facility] #20598, [address], [place], [id number], 05/02/2024 11:42:39 albuterol sulfate HFA 90 mcg/actua tion aerosol inhaler 2024 025 [facility] #18079, [address], [place], [id number], 05/02/2024 11:42:34 magnesium oxide 400 mg (241.3 mg magnesium ) tablet 2023 024 [facility] #50962, [address], [place], [id number], 01/17/2024 12:00:06 Advair Diskus 100 mcg-50 mcg/dose powder for inhalatio n 2023 024 [facility] #27799, [address], [place], [id number], 01/17/2024 12:00:07 albuterol sulfate HFA 90 mcg/actua tion aerosol inhaler 2023 024 [facility] #83829, [address], [place], [id number], 01/17/2024 12:00:06 magnesium oxide 400 mg (241.3 mg magnesium ) tablet 2023 [facility] #06473, [address], [place], [id number], 11/02/2023 14:53:12 Patient TargetsNo targets recorded. Patient Instructions Encounter Date Encounter Id Patient Instructions Last Modified By Organization Details Last Modified Time 11/02/2023 [id number] methacholine challenge* - Please call patient to schedule. Not available 12/04/2023 17:52:47 05/02/2024 [id number] complete PFT w/ post bronchodilator spirometry* Not available 05/02/2024 11:42:26 Reason for Referral None Reported. Results Created Date Observation Date Name Description Value Unit Range Abnormal Flag Note LastModifiedBy Organization Detail LastModifiedTime 11/03/19 24 11/02/2023 compl ete PFT w/ post [facility] hodil ator lottie metry * No observ ation record ed. [facility] ([facility] Sched[facility]) [address] [place], [address], 11/03/2023 12:49:10 01/17/20 24 01/16/2024 metha choli ne chall enge* No observ ation record ed. [facility] ([facility] Sched[facility]) [address] [place], [address], 01/17/2024 11:11:40 01/17/20 24 02/11/2023 polys omnog camelia, titra tion study No observ ation record ed. [facility] Not Available 2023 19:04:37 01/17/20 24 12/08/2023 US, echoc ardio gram, trans thora cic, compl ete No observ ation record ed. [facility] Not Available 2023 19:04:37 Result Notes None recorded. Problems Name Problem SNOMED Code Status Onset Date Resolution Date Notes Provider Name and Address Organization Details Recorded Time History of amputatio n of left great toe 01880289937 317180 Active 2022 Not Available [facility] 3 07:32:08 Hammer toe 946995424 Active 2022 Not Available [facility] 3 07:32:08 Chronic depressio n 572476005 Active Not Available [facility] 3 07:32:08 Partial thickness rotator cuff tear 750942791 Active Not Available [facility] 3 07:32:09 Gastroeso phageal reflux disease 577132704 Active Not Available [facility] 3 07:32:09 Anemia 539319309 Active Not Available [facility] 3 07:32:09 Osteoarth ritis 137543107 Active Not Available [facility] 3 07:32:10 Hypothyro idism 38371808 Active Not Available [facility] 3 07:32:11 Obesity 477339371 Active Not Available [facility] 3 07:32:11 Bunion 045751332 Active 2022 Not Available [facility] 3 07:32:11 Diabetic periphera l neuropath y 704220591 Active 2022 Not Available [facility] 3 07:32:11 Anxiety 87684814 Active Not Available [facility] 3 07:32:12 Hyperlipi demia 18866577 Active Not Available [facility] 3 07:32:12 Wheezing 45246539 Completed Not Available [facility] 3 07:32:13 Essential hypertens ion 82949260 Active Not Available [facility] 3 07:32:13 Long-term current use of anticoagu lant 391825890 Active 2021 Not Available [facility] 3 07:32:14 Obstructi ve sleep apnea syndrome 26020459 Active Not Available [facility] 3 07:32:14 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 Not Available [facility] 3 07:32:15 Gout 27724385 Active Not Available [facility] 3 07:32:15 Primary fibromyal steven syndrome 85032959 Active Not Available [facility] 3 07:32:16 Flexion contractu re of toe joint 826537237 Active 2022 Clifton Saravia DPM [address], [address], [place], [address] , [employer] 3 14:41:16 Sensorine ural hearing loss 99042948 Active 2022 Antoine Tanner MD [address], [address], [place], [address] , [employer] 3 14:29:40 Acquired hallux limitus of right great toe 68993118073 87278 Active 2022 Clifton Saravia DPM [address], [address], [place], [address] , [employer] [facility] 3 16:39:13 Periodic limb movement disorder 908124609 Active 2023 Devin Benitez MD [address], [address], [place], [address] , [employer] 4 11:48:29 Hypomagne semia 741028855 Active 2023 Devin Benitez MD [address], [address], [place], [address] , [employer] [facility] 4 11:51:11 Mild persisten t asthma 802952170 Active 2023 Devin Benitez MD [address], [address], [place], [address] , [employer] 4 11:41:36 Foot ulcer due to type 2 diabetes mellitus 07025999947 00 Active 2024 Clifton Saravia DPM [address], [address], [place], [address] , [employer] 5 14:50:35 Hammer toe 313707389 Active 2024 Clifton Saravia DPM [address], [address], [place], [address] , [employer] 5 14:51:19 History of amputatio n of right great toe 21716694983 518181 Active 2024 Clifton Saravia DPM [address], [place], [address] , [employer] 14:51:40 Notes:Medical History: Anxie ty/Depression Sensorineural hearing [...] Procedure History: Left 1st toe amputation 2018 Right 1st toe amputation 2023 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 Procedures Surgical History Date Name Laterality Status Provider Name and Address Organization Details Recorded Time 03/21/19 25 Nail Debridement completed Clifton Saravia DPM [address], [address], [place], [address], [employer] 03/21/2024 14:48:29 10/23/19 24 Nail Debridement completed Clifton Saravia DPM [address], [address], [place], [address], [employer] [facility] 10/23/2023 11:58:36 07/20/19 24 Nail Debridement completed Clifton Saravia DPM [address], [address], [place], [address], [employer] [facility] 07/20/2023 15:16:22 06/06/19 24 Incision & Drainage Procedure completed Cameron Dan DPM [address], [address], [place], [address], [email or web address] [facility] [employer] 06/06/2023 10:43:07 04/10/19 24 Nail Debridement completed Clifton Saravia DPM [address], [address], [place], [address], [employer] [facility] [employer] [facility] 04/17/2023 10:52:28 12/23/19 23 Nail Debridement completed LUCIA [address], [place], [address], [employer] [facility] [employer] 12/26/2022 08:11:04 12/23/19 23 Joint Injection-Podia try 6217 completed Clifton Saravia DPM [address], [place], [address], [employer] [facility] [employer] [facility] 12/26/2022 08:10:33 09/23/19 23 Nail Debridement completed LUCIA [address], [place], [address], [employer] [facility] 09/22/2022 15:10:23 06/24/19 23 Nail Debridement completed LUCIA [address], [place], [address], [employer] [facility] [employer] [facility] 06/23/2022 14:40:20 procedure on elbow completed Not Available [facility] 04/27/2022 07:27:46 procedure on hand completed Not Available [facility] 04/27/2022 07:27:46 Imaging Results Imaging Date Name Status LastModified by Organization Details LastModified Time 11/02/2023 complete PFT w/ post bronchodilator spirometry* completed [facility] ([facility]) [address] [place], [address], 11/03/2023 12:49:10 01/16/2024 methacholine challenge* completed [facility] ([facility] Sched[facility]) [address] [place], [address], 01/17/2024 11:11:40 02/11/2023 polysomnogram, titration study completed [facility] Information not available 01/17/2024 19:04:37 12/08/2023 US, echocardiogram, transthoracic, complete completed [facility] Information not available 01/17/2024 19:04:37 Procedure Notes None recorded. Medical Equipment None Reported. Allergies Allergen ID Allergen Name Allergen Category Reaction Reaction Severity Criticality Documentation Date Start Date Code Code System Note Provider Name and Address Organization Details Recorded Time 86292 Vibramyci n medicatio n other Not available Not available 04/27/2022 57304 5 RxNorm Not Available [facility] 3 07:37:15 61484 vancomyci n medicatio n hives Not available Not available 04/27/2022 25728 RxNorm Not Available [facility] 3 07:37:15 39151 valsartan medicatio n other Not available Not available 04/27/2022 51766 RxNorm Not Available [facility] 3 07:37:15 01255 lisinopri l medicatio n cough Not available Not available 04/27/2022 07716 RxNorm Not Available [facility] 3 07:37:15 87555 Betadine medicatio n rash Not available Not available 04/27/2022 53043 0 RxNorm Not Available [facility] 3 07:37:15 Medications Name Sig Start Date [...] MOUTH TWICE DAILY. CALL IF SYMPTOMS PERSIST active Not Available Not Available No t Available sulfameth oxazole 800 mg-trimet hoprim 160 [...] MOUTH EVERY 6 HOURS NEEDED FOR PAIN active Not Available Not Available No t Available triamcino lone acetonide 0.1 % topical [...] 400 mg (241.3 mg magnesium ) tablet TAKE 1 TABLET BY MOUTH EVERY DAY active Not Available Not Available No t Available triamcino lone acetonide 0.025 % topical cream [...] sulfate HFA 90 mcg/actua tion aerosol inhaler INHALE 1 PUFF BY MOUTH EVERY 4 HOURS NEEDED active Not Available Not Available No t Available hydroxyzi ne HCl 10 mg tablet TK 1 T PO Q 6 H 12/01 completed Not Available Not Available Not Available cefdinir 300 mg capsule TAKE 1 CAPSULE BY MOUTH EVERY 12 HOURS 04/17 completed Not Available Not Available Not Available multivita min capsule daily 07/15 completed [...] 1 TABLET BY MOUTH EVERY 12 HOURS 04/17 completed Not Available Not Available Not Available naproxen 500 mg tablet 12/01 completed Not Available Not Available Not Available metoclopr amide 10 mg tablet 12/01 completed Not Available Not Available Not Available amoxicill in 875 mg-potass ium clavulana te 125 mg tablet TAKE 1 TABLET BY MOUTH EVERY 12 HOURS 04/17 completed Not Available Not Available Not Available tobramyci n 0.3 %-dexamet hasone 0.1 [...] e Short Pen Needle 31 gauge x 07/12 active Not Available Not Available Not Available [...] completed Not Available Not Available Not Available Lcuie Clark U-300 Insulin 300 unit/mL (1.5 mL) subcutane [...] active Not Available Not Available Not Available W[employer] Inhub 100 mcg-50 mcg/dose powder for inhalatio n INHALE 1 PUFF BY MOUTH TWICE DAILY active Not Available Not Available No t Available Fluad 65yr up(PF)45 mcg(15 mcgx3)/0. 5 [...] Updated DateTime 10/23/2023 160.02 cm 41.3 kg/m2 659490.02 g Valerie Smith [facility] 10/23/2023 11:11:57 Date Recorded Body height Body mass index (BMI) Body weight Heart rate Body temperature Systolic blood pressure Diastolic blood pressure Provider Name and Address Organization Details Last Updated DateTime 160.02 cm 38.1 kg/m2 06728.3 6 g 84 /min 98.1 [degF] 122 mm[Hg] 70 mm[Hg] Kenton Colón CMA [facility] 11:16:29 Date Recorded Oxygen saturation Oxygen saturation in Arterial blood by Pulse oximetry Heart rate Respiratory rate Provider Name and Address Organization Details Last Updated DateTime 11/02/2023 93 % 93 % 84 /min 15 /min Devin Benitez MD [address], [place], [address] [place] [address] [employer] [facility] 4 15:00:54 Date Recorded Body height Body mass index (BMI) Body weight Systolic blood pressure Diastolic blood pressure Provider Name and Address Organization Details Last Updated DateTime 01/17/2024 160.02 cm 38.1 kg/m2 19011.36 g 128 mm[Hg] 66 mm[Hg] Valentina Payne MA [facility] [employer] [facility] 4 11:26:17 Date Recorded Body temperature Heart rate Oxygen saturation Oxygen saturation in Arterial blood by Pulse oximetry Heart rate Respiratory rate Provider Name and Address Organization Details Last Updated DateTime 4 99.8 [degF] 99 /min 95 % 95 % 99 /min 15 /min Devin Benitez MD [address], [employer], [place], [address], [facility] [employer] [facility] 4 12:03:46 Date Recorded Body height Body mass index (BMI) Body weight Heart rate Respiratory rate Oxygen saturation Oxygen saturation in Arterial blood by Pulse oximetry Systolic blood pressure Diastolic blood pressure Provider Name and Address Organization Details Last Updated DateTime 5 160.02 cm 38.1 kg/m2 89756.3 6 g 87 /min 14 /min 98 % 98 % 106 mm[Hg] 47 mm[Hg] Sun Millard [facility] [employer] [facility] 5 14:28:06 Date Recorded Body height Body mass index (BMI) Body weight Body temperature Heart rate Oxygen saturation Oxygen saturation in Arterial blood by Pulse oximetry Systolic blood pressure Diastolic blood pressure Provider Name and Address Organization Details Last Updated DateTime 5 160.02 cm 36.7 kg/m2 32812.6 2 g 98.1 [degF] 83 /min 97 % 97 % 108 mm[Hg] 64 mm[Hg] Valentina Payne MA [facility] [employer] [facility] 5 11:25:17 Date Recorded Heart rate Respiratory rate Provider N araseli and Address Organization Details Last Updated DateTime 05/02/2024 83 /min 15 /min Devin Benitez MD [address], [place], [address], [place] [facility] [employer] 05/02/2024 11:43:19 Social History Question Answer Notes LastModified by Organizat ion Details LastModified Time Tobacco Smoking Status Former Smoker [place] [employer], [facility] [employer] [facility] 04/10/2023 15:54:00 What Is Your Level Of Alcohol Consumption? Occasional [id number] Information not available 04/27/2022 What Is Your Level Of Caffeine Consumption? Moderate [id number] Information not available 04/27/2022 In The 14 [...] Anxious, Or Unable To Sleep At Night)? [id number] Information not available 01/17/2024 Do You Use [...] high-dose, trivalent, PF 3 completed Not Available [facility] 04/27/2022 07:37:07 Influenza, high-dose, trivalent, PF 1 completed Not Available [facility] 04/27/2022 07:37:07 Influenza, high-dose, trivalent, PF 0 completed Not Available [facility] 04/27/2022 07:37:07 pneumococcal polysaccharide PPV23 0 completed Not Available [facility] 04/27/2022 07:37:07 COVID-19, mRNA, LNP-S, PF, 30 mcg/0.3 mL dose 1 completed Not Available [facility] 04/27/2022 07:37:08 COVID-19, mRNA, LNP-S, PF, 30 mcg/0.3 mL dose 1 completed Not Available [facility] 04/27/2022 07:37:08 Td (adult) 7 completed Not Available [facility] 04/27/2022 07:37:08 Past Encounters Encounter ID Performer Location Encounter Start Date Encounter Closed Date Diagnosis/Indication Diagnosis SNOMED-CT Code Diagnosis ICD10 Code Diagnosis Note [id number] [facility] [place] [address] [place] [address] 01/27/2021 00:00:00 01/27/2021 12:58:10 [id number] [facility] [place] [address] [place] [address] 04/15/2021 00:00:00 04/15/2021 14:21:47 [id number] _CHRIS_Rafael IGRATION_ DEFAULT_1 _1 , 05/07/2021 00:00:00 05/10/2021 09:54:36 [id number] [facility] [place] [address] [place] [address] 07/09/2021 00:00:00 07/23/2021 17:10:07 [id number] _CHRIS_Rafael IGRATION_ DEFAULT_1 _1 , 10/22/2021 00:00:00 10/26/2021 10:34:40 [id number] [facility] [place] [address] [place] [address] 03/14/2022 00:00:00 03/14/2022 12:18:33 [id number] Clifton Saravia DPM [facility] [place] [address] [place] [place] [address] 06/23/2022 13:45:11 06/23/2022 14:45:21 Diabetic peripheral neuropathy [id number] E11.42 Patient educated on neuropathy , diabetes, diabetic diet, and daily foot exams. Patient is to check feet daily for new wounds, blisters, redness to prevent infection and ulceration s to the feet. Patient will return to clinic in 3 months for diabetic foot workup. History of amputation of left great toe [id number] 0481270 Z89.412 secondary to history of toe amputation to the left foot with existing neuropathy the and plantar flexion contractur e of her toes patient would benefit greatly from diabetic shoes and insoles to prevent recurrent wounds of her feet. Flexion co ntracture of toe joint 369677672 M21.279 bilateral feetoffloa dingRx diabetic shoes Dystrophia unguium 04801 009 L60.3 Nails 1 through 9 were debrided with sharp mechanical debridemen t without incident. Nails were debrided and greater than 50% length and thickness where needed. Obesity 638486703 E66.9 recommend weight loss facilitate with PCP Dog bite - wound 2717713 05 W54.0XXA dorsal right footcontin ue daily wound careif signs of infection present seek medical attention immediatel yFollow-up in 1 week [id number] Clifton Saravia DPM [facility] Podiatry [place] [address] [facility] [place] [address] 07/05/2022 09:51:18 07/05/2022 10:44:16 Dog bite - wound 610890558 W54.0XXA dorsal right footresolv ed paincontin ue daily wound careif signs of infection present seek medical attention immediatel yFollow-up in 1 week Blister of toe without infection 99552844 S90.424D right 5th toehealedc ontinue supportive shoe gearFollow -up as needed [id number] Clifton Saravia DPM [facility] Podiatry [place] [address] [place] [address] 09/22/2022 14:45:42 09/22/2022 15:28:11 Diabetic peripheral neuropathy 426674843 E11.42 Patient educated on neuropathy , diabetes, diabetic diet, and daily foot exams. Patient is to check feet daily for new wounds, blisters, redness to prevent infection and ulceration s to the feet. Patient will return to clinic in 3 months for diabetic foot workup.has not obtained diabetic shoes and inserts- we did check and have sent all for work to [facility]. Dystrophia unguium 45700 009 L60.3 Nails 1 through 9 were debrided with sharp mechanical debridemen t without incident. Nails were debrided and greater than 50% length and thickness where needed. History of amputation of left great toe 2401662026 9889416 Z89.412 secondary to history of toe amputation to the left foot with existing neuropathy the and plantar flexion contractur e of her toes patient would benefit greatly from diabetic shoes and insoles to prevent recurrent wounds of her feet. [id number] Antoine Tanner MD [facility] E[place] [address] [place] [address] 12/01/2022 14:02:01 12/01/2022 14:30:56 Sensorineural hearing loss 80385056 H90.5 [id number] Clifton Saravia DPM [facility] Podiatry [place] [address] [place] [address] 12/22/2022 15:40:56 12/26/2022 09:46:24 Acquired hallux limitus of right great toe 0825292187 745383 M20.5X1 injection 4 mg dexamethas one phosphate right great toe metatarsop halangeal joint, 12/22/2022 Diabetes mellitus 737657 09 E11.40 continue PCP recommenda tion Diabetic p eripheral neuropathy 277026679 E11.42 Patient educated on neuropathy , diabetes, diabetic diet, and daily foot exams. Patient is to check feet daily for new wounds, blisters, redness to prevent infection and ulceration s to the feet. Patient will return to clinic in 3 months for diabetic foot workup.has not obtained diabetic shoes and inserts- we did check and have sent all for work to [facility]. Dystrophia unguium 59761 009 L60.3 Nails 1 through 9 were debrided with sharp mechanical debridemen t without incident. Nails were debrided and greater than 50% length and thickness where needed. History of amputation of left great toe 8823521467 7843388 Z89.412 secondary to history of toe amputation to the left foot with existing neuropathy the and plantar flexion contractur e of her toes patient would benefit greatly from diabetic shoes and insoles to prevent recurrent wounds of her feet. [id number] Clifton Saravia DPM [facility] Podiatry [place] [address] [place] [address] 04/10/2023 15:52:59 04/17/2023 11:12:34 Diabetes mellitus 18141177 E11.40 continue PCP recommenda tion History of amputation of left great toe 4453066101 2361033 Z89.412 secondary to history of toe amputation to the left foot with existing neuropathy the and plantar flexion contractur e of her toes patient would benefit greatly from diabetic shoes and insoles to prevent recurrent wounds of her feet. Dystrophia unguium 37318 009 L60.3 Nails 1 through 9 were debrided with sharp mechanical debridemen t without incident. Nails were debrided and greater than 50% length and thickness where needed. [id number] Cameron Dan DPM [facility] [place] [address] [address] 06/06/2023 09:50:06 06/06/2023 10:49:15 Abscess of skin and/or subcutaneous tissue 72271533 L02.91 [id number] Cameron Dan DPM [facility] [place] [address] [place] [address] 06/12/2023 09:52:01 06/12/2023 11:19:21 [id number] LUCIA [facility] [place] [address] [place] [address] 07/20/2023 14:23:03 07/21/2023 10:41:03 Skin eschar 382553181 R23.4 left 2nd toekeep clean and dryallow to healif not healed in 1 week return office Blood blister 266995144 T14.8XXA left 3rd toeas above Dystrophia unguium 21433 009 L60.3 Nails 1 through 9 were debrided with sharp mechanical debridemen t without incident. Nails were debrided and greater than 50% length and thickness where needed. Diabetes mellitus 748932 09 E11.40 continue PCP recommenda tion [id number] Devin Benitez MD [facility] Pulmonolo gy [place] [address] [place] [address] 07/26/2023 10:46:36 07/27/2023 08:40:44 Dyspnea on exertion 15504434 R06.09 R05.3 D89.9 T78.40XA Obstructiv e sleep apnea syndrome 11288124 G47.33 Periodic l imb movement disorder 838338876 G47.61 D50.8 E83.42 [id number] Clifton Saravia DPM [facility] [place] [address] [place] [address] 08/24/2023 11:38:20 08/24/2023 14:23:44 Bunion 726747234 M21.619 recommend offloading supportive shoe gear wide soft toe box shoes recommende dIf continues to be problemati c will require surgery currently denies surgery Blood blister 138227805 T14.8XXA medial great toe rightofflo adingkeep the area clean and dry dailyFollo w-up in 1-2 weeks [id number] Clifton Saravia DPM [facility] Podiatry [place] [address] [facility] [address] [place] [address] 10/23/2023 11:01:33 10/23/2023 16:47:22 Open wound of right great toe 0820261135 2460297 S91.101A right great toe- full-thick ness secondary to callusing and skin fissurecon tinue offloading Rx- extra-dept h, neoprene style toe box diabetic shoesmonit or for infection at present seek medical attention immediatel ySeeking wound care with [facility] Open wound of toe of left foot 4600589238 8523989 S91.105A left 2nd- full-thick ness, fibrotic wound bed no acute signs of infectionc ontinue offloading wound care dailyseeki ng wound care with [facility] History of amputation of left great toe 4486830355 1813027 Z89.412 secondary to history of toe amputation to the left foot with existing neuropathy the and plantar flexion contractur e of her toes patient would benefit greatly from diabetic shoes and insoles to prevent recurrent wounds of her feet. Diabetic p eripheral neuropathy 820046799 E11.42 Rx diabetic shoe gear- neoprene style toe box shoe, extra-dept h Dystrophia unguium 49650 009 L60.3 Nails 1 through 9 were debrided with sharp mechanical debridemen t without incident. Nails were debrided and greater than 50% length and thickness where needed. [id number] Devin Benitez MD [facility] Pulmonolo gy [address] [place] [address] 11/02/2023 10:56:19 11/03/2023 10:45:37 Dyspnea on exertion 77772221 R06.09 R05.3 D89.9 T78.40XA Obstructiv e sleep apnea syndrome 04072845 G47.33 Periodic l imb movement disorder 181635239 G47.61 D50.8 E83.42 Hypomagnesemia 145899159 E83.42 [id number] Devin Benitez MD [address] [address] 01/17/2024 10:40:32 02/26/2024 11:51:28 Obstructive sleep apnea syndrome 75608913 G47.33 Periodic l imb movement disorder 837353462 G47.61 Hypomagnesemia 104051971 E83.42 Mild persi stent asthma 778137206 J45.30 [id number] Clifton Saravia DPM [facility] Podiatry [place] [address] [place] [address] 03/21/2024 14:22:44 03/22/2024 13:46:52 Foot ulcer due to type 2 diabetes mellitus 0717062344 100 E11.621 right 2nd toedaily wound careFollow -up week if not healed History of amputation of right great toe 8222402775 8462198 Z89.411 right great toe well healed- performed by [place] Dystrophia unguium 19457 009 L60.3 Nails 1 through 8 were debrided with sharp mechanical debridemen t without incident. Nails were debrided and greater than 50% length and thickness where needed. Hammer toe 152578763 M20 .42 left 2nd toeoffload ing dailysilic one toe sleeve recommende drecommend diabetic shoe gear and insoles with extra-dept h shoes [id number] Devin Benitez MD [address] [address] 05/02/2024 11:09:11 05/02/2024 11:58:12 Obstructive sleep apnea syndrome 71334811 G47.33 Periodic l imb movement disorder 521945541 G47.61 Hypomagnesemia 446669129 E83.42 Mild persi stent asthma 565661341 J45.30 Health Concerns Section Related Observation LastModified by Organization Detai ls LastModified Time None Recorded Concern Status LastModified by Organization Details LastModified Time None Recorded Advance Directives Directive None Recorded Payers Encounter Date Sequence Insurance Name Policy Number Policy Puga Covered Member ID Puga Member ID Guarantor Name 10/23/2023 2 [place] Aleyda L [place] [id number] Aleyda Juju Dilia 10/23/[address] [facility] [place] [id number] Drake L [place] [id number] Aleyda Juju Dilia 11/02/2023 2 [place] Aleyda L [place] [id number] Aleyda Juju Dilia 11/02/[address] [facility] [place] [id number] Drake L Dilia [id number] Aleyda Juju [place] 01/17/2024 2 [place] Aleyda L [place] [id number] Aleyda Juju [place] 01/17/2024 1 [facility] [employer] [facility] - OPEN ACCESS III (PPO) [id number] Aleyda Juju Dilia [id number] Aleyda Juju Dilia 03/21/2024 2 [place] Aleyda L [place] [id number] Aleyda Juju [place] 03/21/2024 1 [facility] - [facility] C[facility] & [facility] - OPEN ACCESS III (PPO) [id number] Aleyda Juju Dilia [id number] Aleyda Juju Dilia 05/02/2024 2 [place] Aleyda L [place] [id number] Aleyda Juju [place] 05/02/2024 1 [facility] - OPEN ACCESS III (PPO) [id number] Aleyda Dobbs [id number] Aleyda Dobbs Notes Date Note Type Note Provider Name and Address Organization Details Recorded Time 10/23/2023 text/html . Patient is a 73-year-old female diabetic who returns the office for follow-up on diabetic foot care. Patient states she developed wounds of the right great toe and left 2nd toe which has been problematic for approximately 1 month she states she was hospitalized for this as well as been undergoing wound care at [facility]. Patient denies any fever, chills, nausea vomiting. Patient continues to offload the toes with wound care daily. Patient denies any other complaints and would like her nails cut. Clifton Saravia, LUCIA [address] [facility], [facility] [address], [place], [address], [place] [facility] [employer] 10/23/2023 12:13:35 11/02/2023 text/html Primary care/Ref erring provider: Gilberto Armendariz, ; Ashley Soto NP CC: My KOKI G3 [...] doing laundryAlleviating factors: rest Modified [employer] [place] (mMRC) Dyspnea Scale - Grade 2Grade 0 [...] per weekAdvair diskus 500/50 1 inhalation BID [id number] Other symptoms:Drooling: noDysarthria: noNeck pain: noOdynophagia: noDysphagia: noWeak mastication: noFacial weakness: noNasal speech: noProtruding tongue: noProductive cough: noWheezing: yesChest tightness: noSchizophrenia: noSchizoaffective disorder: noPersonality disorder: noChronic analgesic [...] moderate chance of dozing. Devin Benitez MD [address] [place] [address], [address], [place] [facility] [employer] 01/17/2024 14:08:16 03/21/2024 text/html . Patient is a 73-year-old female diabetic shoe returns the office for follow-up on diabetic foot care. Patient states overall she is doing better. Patient states that she developed worsening wound to the great toe over the holiday she states that she was admitted to [facility] and underwent a amputation of the right [...] week. Patient denies any other complaints. Clifton Saravia, DPM [address] [facility], [address], [place], [address], [place] [facility] [place] [email or web address] 03/21/2024 14:52:17 05/02/2024 text/html Primary care/Ref erring provider: Ashley Soto NP CC: I use my KOKI G3 unit from 2021 and not the older ResMed AirSense 10 autoset unit. I am not eligible for a new CPAP yet. Patient is here to go over her asthma management. Initial development of shortness of breath: 2013Duration of shortness of breath: 12 yearsCondition of shortness of breath: stableTiming of shortness of breath: noneFrequency: up to 3 times a dayLimits activities: yesAggravating factors: walking, going upstairs, doing laundryAlleviating factors: rest Modified [employer] [place] (mMRC) Dyspnea Scale - Grade 2Grade 0 [...] or I am breathless when dressing . Patient's personal best peak flow remains at 200 L/min. Treatment history: Albuterol HFA as needed since 2012, she uses this everydayAdvair diskus 500/50 1 inhalation BID [id number] Other symptoms:Drooling: noDysarthria: noNeck pain: noOdynophagia: noDysphagia: noWeak mastication: noFacial weakness: noNasal speech: noProtruding tongue: noProductive cough: noWheezing: yesChest tightness: yesOrthopnea: noFrequent throat clearing or swallowing: noPalpitations: noHeartburn: yesEdema: yes Environmental exposures:Nicotine smoke: 1 ppd 5559-3978 = 18 pack yearsPaint: noDye: noDust mites: yesMold: noDamp basement: noWood burning stove: noAnimal dander: dogCockroaches: noPollen: yesArsenic: noAsbestos: noBeryllium: noCadmium: noChromium: noCoal smoke: noDiesel fumes: noNickel: noSilica: noSoot: no During the [facility] home sleep study on 10/08/15, AHI = 13.During the [facility] titration sleep study on 11/04/15, sleep onset [...] water.The patient wears a ResMed medium AirFit F40 full face mask without chin strap. There [...] up without an alarm. Snoring: moderate, since 1999s.Snorting: noChoking: noCoughing: noGasping: yesGagging: noSighing: noWitnessed apnea: [...] AND CHANCE OF DOZINGSitting and reading - 0Watching television - 3Sitting inactive in a public place (e.g. a theater or meeting) - 0As a passenger in a car for an hour without a break - 3Lying down to rest in the afternoon when circumstances permit - 3Sitting and talking to someone - 0Sitting quietly after lunch without alcohol - 0In a car, while stopped for a few minutes in the traffic - 3TOTAL SCORE 12Subjectively, patient has a moderate chance of dozing. Devin Benitez MD [address] [place] [address], [address], [place] [facility] [place] [email or web address] [facility] 05/02/2024 11:51:12 OBGyn Episode No OBEpisode recorded. yesOrthopnea: noFrequent throat clearing or swallowing: noPalpitations: noHeartburn: yesEdema: yes Environmental exposures:Nicotine smoke: 1 ppd 9534-5490 = 18 pack yearsPaint: noDye: noDust mites: yesMold: noDamp basement: noWood burning stove: noAnimal dander: dogCockroaches: noPollen: yesArsenic: noAsbestos: noBeryllium: noCadmium: noChromium: noCoal smoke: noDiesel fumes: noNickel: noSilica: noSoot: no During the [facility] home sleep study on 10/08/15, AHI = 13.During the [facility] titration sleep study on 11/04/15, sleep onset [...] slight chance of dozing. Devin Benitez MD [address] [place] [address], [address], [place] [facility] [employer] 11/02/2023 15:02:56 01/17/2024 text/html Primary care/Ref erring [...] doing laundryAlleviating factors: rest Modified [employer] [place] (mMRC) Dyspnea Scale - Grade 2Grade 0 [...] this everydayAdvair diskus 500/50 1 inhalation BID [id number] Other symptoms:Drooling: noDysarthria: noNeck pain: noOdynophagia: noDysphagia: noWeak mastication: noFacial weakness: noNasal speech: noProtruding tongue: noProductive cough: noWheezing: yesChest tightness: yesOrthopnea: noFrequent throat clearing or swallowing: noPalpitations: noHeartburn: yesEdema: yes Environmental exposures:Nicotine smoke: 1 ppd 4515-3315 = 18 pack yearsPaint: noDye: noDust mites: yesMold: noDamp basement: noWood burning stove: noAnimal dander: dogCockroaches: noPollen: yesArsenic: noAsbestos: noBeryllium: noCadmium: noChromium: noCoal smoke: noDiesel fumes: noNickel: noSilica: noSoot: no During the [facility] home sleep study on 10/08/15, AHI = 13.During the [facility] titration sleep study on 11/04/15, sleep onset [...]
--- OUTSIDE RECORDS SUMMARY | 2024-06-04 00:47 | XMS_ITS | Encounter Summary ---
Author Organization [facility] Address [address] [place] [address] Phone Care Team Providers Care Mobile Tester Name Role Phone Charles Armendariz DO Primary Care Provider [phone] David Vanegas MD Unavailable [phone] Encounter Details Date Type Department Care Team (Late st Contact Info) Description 01/30/2023 Orders Only [facility]R [phone] Scanning, Provider Social History Tobacco Use Types [...] on file Legal Sex Female 12:14 AM [employer] Gender Identity Not on file Sexual Orientation [...] on filedocumented in this encounter Care Teams Mobile Tester Relationship Specialty Start Date End Date Charles Armendariz DO PCP - General 05/27/16 David Vanegas MD [address] [place] [address] Consulting Physician Cardiology 07/20/18 documented as of this encounter
--- OUTSIDE RECORDS SUMMARY | 2024-06-04 00:47 | XMS_ITS | Referral Summary ---
Author Organization [facility] Address [id number] [place] [phone] Care Team Providers Care Planting Machine Crewman Name Role Phone Charles Armendariz DO Primary Care Provider [phone]- [phone] David Vanegas MD Unavailable Encounters Date Type Department Care Team Description 05/16/2024 9:40 AM CDT Office Visit [facility] Infectious Diseases [address] [place] [phone] Ana Laura Ramires NP LTBI (latent tuberculosis infection) (Primary Dx) 05/08/2024 Orders Only [facility] Diabetes and Endocrinology [address] [place] [phone] ProviderOliver MD 05/02/2024 Results Follow-Up [facility] Diabetes [facility] Endocr[facility]ology [address] [place] [phone] Stacy Hernandez NP 04/30/2024 2:40 PM BOX STORAGE WORKER - 04/30/2024 11:59 PM BOX STORAGE WORKER Hospital Encounter [address] [address] Type 2 diabetes mellitus with hyperglycemia, with long-term current use of insulin (HCC); Hypertension associated with type 2 diabetes mellitus (HCC); Hyperlipidemia associated with type 2 diabetes mellitus (HCC); Hypothyroidism, unspecified type Discharge Disposition: Discharge to home or self care 04/30/2024 2:45 PM BOX STORAGE WORKER Lab [facility] Outpatient Lab at [address] [phone] Type 2 diabetes mellitus with hyperglycemia, with long-term current use of insulin (HCC) (Primary Dx) 04/30/2024 Orders Only [facility] Diabetes and Endocrinology [address] [place], [place] [phone] ProviderOliver MD 04/30/2024 2:00 PM BOX STORAGE WORKER Office Visit [facility] Diabetes and Endocrinology [address] [place], [place] [phone] Stacy Hernandez NP Type 2 diabetes mellitus with hyperglycemia, with long-term current use of insulin (HCC) (Primary Dx); Hyperlipidemia associated with type 2 diabetes mellitus (HCC); Diabetic polyneuropathy associated with type 2 diabetes mellitus (HCC); Hypertension associated with type 2 diabetes mellitus (HCC); Hypothyroidism, unspecified type 04/26/2024 Telephone [facility] Diabetes and Endocrinology [address] [place], [place] [phone] Stacy Hernandez NP Forms/questionnaires (LICENSED REAL ESTATE BROKER) 04/09/2024 Telephone [facility] Infectious Diseases [address] [place] [address] [place] [phone] Chayo Alcazar LCSW 04/04/2024 Telephone [facility] Rheumatology [address] [place] [address] Floor [address] [place] [phone] Arnulfo Krishnamurthy 04/02/2024 11:10 AM BOX STORAGE WORKER Clinical Support [facility] Bone Health [address] [place] [address] [place] [phone] Other specified disorders of bone density and structure, left thigh (Primary Dx); Rheumatoid arthritis involving multiple sites with positive rheumatoid factor (HCC); 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; group home (current) use of anticoagulants 04/02/2024 11:40 AM BOX STORAGE WORKER Office Visit [facility] Rheumatology [address] [place] [address] Floor [address] [place] [phone] Shawanda De La Cruz NP Rheumatoid arthritis involving multiple sites with positive rheumatoid factor (HCC) (Primary Dx); High risk medication use 03/15/2024 Telephone [facility] Infectious Diseases [address] [phone] RolandTimyolanda Sultana Lab results 03/15/2024 Orders Only [facility] Infectious Diseases [address] [phone] Ana Laura Ramires NP LTBI (latent tuberculosis infection) (Primary Dx) 03/14/2024 9:09 AM BOX STORAGE WORKER - 03/14/2024 11:59 PM BOX STORAGE WORKER Hospital Encounter [facility] [address] [place] [address] Discharge Disposition: Discharge to home or self care 03/14/2024 8:30 AM BOX STORAGE WORKER Office Visit [facility] Infectious Diseases [address] [place] [phone] Ana Laura Ramires NP LTBI (latent tuberculosis infection) (Primary Dx) from Last 3 Months Allergies Active Allergy Reactions Criticality Noted Date Comments Ciprofloxacin Nausea only Low 09/08/2022 Daptomycin Diarrhea Low 06/29/2020 Doxycycline Unknown Low 09/19/2019 Canagliflozin Diarrhea Low 10/28/2021 Empagliflozin Diarrhea Low 04/21/2021 Lisinopril Cough Low 08/13/2018 Semaglutide Diarrhea High 01/27/2021 Povidone-Iodine Rash Medium 05/05/2017 Ssqpvii-Icz-Nfj Reductase Inhibitors Muscle pain Medium 11/05/2020 Valsartan [...] total) by mouth every morning Activ e ia-sdpsetu-fsd -iron fm-FA-vitK 18 mg-400 mcg- 25 mcg [...] symptoms. Assessment & Plan (03/15/2024 10:09 AM BOX STORAGE WORKER): - Doing well on INH/B6 for LTBI, [...] 10/24/2023 Assessment & Plan (04/30/2024 2:13 PM BOX STORAGE WORKER): Chronic problem. Currently taking Atorvastatin 40mg. Last lipid panel: 03/09/23 LDL=37 CA=157. Will update labs. Does not mychart. Verified phone #/address to contact re: results. Assessment & Plan (10/24/2023 3:19 PM CDT): Chronic problem. Currently taking Atorvastatin 40mg. Last lipid panel: 03/09/23 LDL=37 YG=515. Positive TB test 09/19/2023 Assessment & Plan (01/01/2024 12:37 PM BOX STORAGE WORKER): - Unable to tolerate rifabutin as she [...] CBC and CMP in 1 month at [facility] - Ok to start biologic for rheumatoid arthritis after she has been on rifabutin for 1 month. Will forward note to rheumatology Class 2 severe obesity due t o excess calories with serious comorbidity and body mass index (BMI) of 39.0 to 39.9 in adult 03/09/2023 Assessment & Plan (03/09/2023 10:05 AM BOX STORAGE WORKER): Discussed healthy diet and importance of regular [...] 03/22/2022 Assessment & Plan (03/22/2022 8:59 AM BOX STORAGE WORKER): Chronic problem, stable. 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 Overview (11/19/2019): Added automatically from request for surgery [id number] Ulnar neuropathy of left upper extremity 020 Overview (11/19/2019): Added automatically from request for surgery [id number] Anxiety 05/24/2019 Asthma 05/24/2019 Brachial neuritis 05/24/2019 Major depressive disorder 05/24/2019 Gastroesophageal reflux disease without esophagi tis 05/24/2019 Gout 05/24/2019 Spleen hematoma 05/24/2019 Osteoarthritis 05/24/2019 Primary localized osteoarthrosis of shoulder reg ion 05/24/2019 Recurrent dislocation of shoulder region 020 Hypothyroidism 04/10/2019 Assessment & Plan (04/30/2024 2:14 PM BOX STORAGE WORKER): Chronic problem. Currently taking levothyroxine 100mcg. Clinically [...] 1.23 Assessment & Plan (03/09/2023 9:54 AM BOX STORAGE WORKER): Chronic problem. Currently taking levothyroxine 100mcg. 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 Currently taking Gabapentin 300mg bid. [...] barefoot. Assessment & Plan (03/09/2023 9:47 AM BOX STORAGE WORKER): Chronic problem. Currently taking gabapentin. Aware to check feet nightly & not go barefoot. Assessment & Plan (09/08/2022 11:14 AM CDT): Chronic problem. Currently taking gabapentin. Aware to check feet nightly. Assessment & Plan (03/21/2022 8:54 AM BOX STORAGE WORKER): Chronic problem. Currently taking gabapentin. Aware to check feet nightly. Assessment & Plan (05/13/2021 10:51 AM CDT): Foot care discussed Assessment & Plan (11/05/2020 2:29 PM CDT): Foot care discussed The patient does not feel that Neurontin helps of will discontinue Assessment & Plan (04/02/2020 1:40 PM BOX STORAGE WORKER): On Neurontin Foot care discussed Assessment & Plan (10/19/2017 10:52 AM CDT): Foot care discussed On neurointin Advised on seeing foot dr. Hyperlipidemia 10/19/2017 Assessment & Plan (03/09/2023 9:48 AM BOX STORAGE WORKER): Chronic problem. Current on atorvastatin 40mg daily. Last lipid panel: 11/04/21 LDL=26, SU=607. Will update labs today. Does not mychart. Verified phone #/address to contact re: results. Assessment & Plan (09/08/2022 11:14 AM CDT): Chronic problem. Current on atorvastatin 40mg daily. 11/04/21 LDL=26. No changes. Assessment & Plan (03/21/2022 8:53 AM BOX STORAGE WORKER): Chronic problem. Current on atorvastatin 40mg daily. [...] Lipitor Assessment & Plan (04/02/2020 1:37 PM BOX STORAGE WORKER): Goal of treatment , LDL cholesterol less [...] therapy. Assessment & Plan (03/12/2019 12:24 PM BOX STORAGE WORKER): Goal of treatment , LDL cholesterol less [...] 01/17/2017 Assessment & Plan (04/30/2024 2:42 PM BOX STORAGE WORKER): Chronic problem, A1c stable but uncontrolled at [...] UTD on DM eye exam (03/06/23 at [facility] Had appt summer 2023; letter sent [...] UTD on DM eye exam (03/06/23 at [facility]). Discussed need to increase activity outside [...] UTD on DM eye exam (03/06/23 at [facility]). Discussed need to increase activity outside [...] infection. Assessment & Plan (03/09/2023 10:02 AM BOX STORAGE WORKER): Chronic problem, A1c worsening. A1c breanna from [...] re: results. DM eye exam 03/06/23 at [facility]. Letter sent to get copy of [...] housework. Assessment & Plan (03/22/2022 9:20 AM BOX STORAGE WORKER): Chronic problem, not at goal. Continue: Metformin [...] consider. Assessment & Plan (03/12/2019 12:23 PM BOX STORAGE WORKER): Hba1c was Lab Results Component Value Date [...] goal hba1c is under 7.0 to prevent continuous churn buttermaker diabetes complications ( eye , kidney and [...] Humalog. Assessment & Plan (03/30/2017 12:29 PM BOX STORAGE WORKER): A1c 6.6 but she does have anemia with elevated RDW. Bydureon since 12/2016 may have also helped to improve A1c but will be stopping that for now. Will evaluate again at next Ov. Assessment & Plan (01/17/2017 10:11 AM BOX STORAGE WORKER): Hba1c was 8.8 today, indicating inadequate DM [...] 01/17/2017 Assessment & Plan (04/30/2024 2:14 PM BOX STORAGE WORKER): Chronic problem, well controlled on current Metoprolol XL 25mg daily, furosemide 20mg daily Will update labs today. Does not mychart. Verified phone #/address to contact re: results. Assessment & Plan (03/09/2023 9:47 AM BOX STORAGE WORKER): Chronic problem, well controlled on current Metoprolol XL 25mg daily, furosemide 20mg daily Will update labs today. Does not mychart. Verified phone #/address to contact re: results. Assessment & Plan (09/08/2022 11:14 AM CDT): Chronic problem, well controlled on current Metoprolol XL 25mg daily, furosemide 20mg daily No changes at this time. Assessment & Plan (03/22/2022 9:00 AM BOX STORAGE WORKER): Chronic problem, well controlled on current metoprolol XL 25mg daily. No changes at this time. Assessment & Plan (07/02/2020 4:04 PM CDT): Goal blood pressure is less than 140/85 Low salt diet was discussed andd recommended The importance of daily aerobic exercise was also emphasized. Continue current meds Assessment & Plan (04/02/2020 1:38 PM BOX STORAGE WORKER): Goal blood pressure is less than 140/85 [...] MA. Assessment & Plan (03/12/2019 12:24 PM BOX STORAGE WORKER): Goal blood pressure is less than 140/85 [...] medications. Assessment & Plan (03/30/2017 12:33 PM BOX STORAGE WORKER): Controlled on current medications. Assessment & Plan (01/17/2017 10:12 AM BOX STORAGE WORKER): Goal blood pressure is less than 140/85 [...] finger 03/29/2011 Atherosclerotic heart diseas e of [place] coronary artery without angina pectoris 09/09/2010 Chronic diastolic (congestive) heart failure 11/2009 Overview (05/15/2023): intol to rea, ef too good for entrsto Resolved Problems [...] atorvastatin Assessment & Plan (03/30/2017 12:33 PM BOX STORAGE WORKER): Continue statin Obesity due to excess calories 11/05/2015 03/21/2022 Assessment & Plan (03/30/2017 12:20 PM BOX STORAGE WORKER): Current exercise will be reduced with completion of Pt. Advised to add walking or other home based exercise to current house work. Elevated erythrocyte sedimentation rate 12/27/2013 03/21/2022 Need for immunization against influenza 12/27/2013 03/21/2022 Immunizations Immunization Administration Dates Next Due Influenza, [...] on file Legal Sex Female 12:14 AM BOX STORAGE WORKER Gender Identity Not on file Sexual [...] 05/16/2024 9:44 AM CDT Plan of Treatment Not on file Medical Devices Implanted Type Area Production Line Worker Device Identifier Shelf Expiration Date Model / Serial / Lot Allosource [id number] Freeze Dried Chips Graft 15ml Bone Cancellous Cortical - [id number] Implanted:Qty: 1 on 08/14/2018 by Pradip Whalen MD at [facility] Bone Allosource 08/28/2022 [id number] / / [id number] Allosource [id number] Allogro Freeze Dried Graft 15ml Bone Demineralized Bone Matrix - [id number] Implanted:Qty: 1 on 08/14/2018 by Pradip Whalen MD at [facility] Bone Allosource 03/15/2023 [id number] / / [id number] Intraocular Lens Bilateral : Eye Orthohelix [id number]-[id number] Maxtorque 4mm 37.5mm Cannulated Self Drill Foot Ankle Long Thread - [id number] Implanted:Qty: 1 on 08/14/2018 by Pradip Whalen MD at [facility] Right: Foot Orthohelix MSD-010-40- 375L / / [employer] [id number] Cristobal .062in 9in Style 1 Wire Fixation Stainless Steel - [id number] Implanted:Qty: 1 on 08/14/2018 by Pradip Whalen MD at [facility] Right: First Toe [employer] [id number] / / Orthohelix Mxl-002-2a Maxlock Extreme 2 Hole [place] Alpha Plate Bone Nonsterile - [id number] Implanted:Qty: 1 on 08/14/2018 by Pradip Whalen MD at [facility] Right: Foot Orthohelix MXL-002-2A / / Orthohelix [id number] Maxtorque 5.5mm 50mm Cannulated Self Drill Foot Ankle Long Thread - [id number] Implanted:Qty: 1 on 08/14/2018 by Pradip Whalen MD at [facility] Right: Foot Orthohelix MSD-010-55- 050L / / Orthohelix [id number] Maxtorque 5.5mm 55mm Cannulated Self Drill Foot Ankle Long Thread - [id number] Implanted:Qty: 1 on 08/14/2018 by Pradip Whalen MD at [facility] Right: Foot Orthohelix MSD-010-55- 055L / / Orthohelix [id number] Maxtorque 7mm 70mm Cannulated Self Drill Foot Ankle Petite Thread - [id number] Implanted:Qty: 1 on 08/14/2018 by Pradip Whalen MD at [facility] Right: Foot Orthohelix MSD-010-70- 070P / / Orthohelix [id number] 4mm 26mm Nonlock Foot Ankle Screw Bone Nonsterile Maxlock Extreme - [id number] Implanted:Qty: 2 on 08/14/2018 by Pradip Whalen MD at [facility] Right: Foot Orthohelix BIG DATA SOLUTIONS ARCHITECT-011-402 6 / / Orthohelix [id number] Maxlock Extreme 4mm 28mm Nonlock Foot Ankle Screw Bone Nonsterile Latex Free - [id number] Implanted:Qty: 1 on 08/14/2018 by Pradip Whalen MD at [facility] Right: Foot Orthohelix [employer] ARCHITECT-011-402 8 / / Orthohelix [id number] Maxlock Extreme 4mm 24mm Nonlock Foot Ankle Screw Bone Nonsterile - [id number] Implanted:Qty: 1 on 08/14/2018 by Pradip Whalen MD at [facility] Right: Foot Orthohelix [employer] ARCHITECT-011-40- 24 / / Explanted Type Area Production Line Worker Device Identifier Shelf Expiration Date Model / Serial / Lot Orthohelix Education Program Specialist-040 [place] Wire Fixation Nonsterile Latex Free - [id number] Explanted:Qty: 2 on 08/14/2018 at [facility] Right: Foot Orthohelix BIG [employer] SOLUT[employer] ARCHITECT-040 / / Procedures Procedure Name Priority Date/Time Associated Diagnosis Comments EGFR Routine 04/30/2024 2:40 PM BOX STORAGE WORKER Type 2 diabetes mellitus with hyperglycemia, with long-term current use of insulin (HCC) Hypertension associated with type 2 diabetes mellitus (HCC) TSH Routine 04/30/2024 2:40 PM BOX STORAGE WORKER Hypothyroidism, unspecified type T4, FREE Routine 04/30/2024 2:40 PM BOX STORAGE WORKER Hypothyroidism, unspecified type LIPID PANEL Routine 04/30/2024 2:40 PM BOX STORAGE WORKER Type 2 diabetes mellitus with hyperglycemia, with long-term current use of insulin (HCC) Hyperlipidemia associated with type 2 diabetes mellitus (HCC) COMPREHENSIVE METABOLIC PANEL Routine 04/30/2024 2:40 PM BOX STORAGE WORKER Type 2 diabetes mellitus with hyperglycemia, with long-term current use of insulin (HCC) Hypertension associated with type 2 diabetes mellitus (HCC) ALBUMIN CREATININE RATIO, URINE Routine 04/30/2024 2:40 PM BOX STORAGE WORKER Type 2 diabetes mellitus with hyperglycemia, with long-term current use of insulin (HCC) POCT GLUCOSE Routine 04/30/2024 1:58 PM BOX STORAGE WORKER Type 2 diabetes mellitus with hyperglycemia, with long-term current use of insulin (HCC) POCT HEMOGLOBIN A1C Routine 04/30/2024 1 :58 PM BOX STORAGE WORKER Type 2 diabetes mellitus with hyperglycemia, with long-term current use of insulin (HCC) COMPREHENSIVE METABOLIC PANEL Routine 04/27/2024 2:21 AM BOX STORAGE WORKER DEXA AXIAL SKELETON BONE DENSITY 1 OR MORE SITES Schedule Routine, Read Routine (OP Routine) 04/02/2024 11:04 AM BOX STORAGE WORKER Rheumatoid arthritis involving multiple sites with positive rheumatoid factor (HCC) COMPREHENSIVE METABOLIC PANEL (OUTREACH) Routine 03/26/2024 1:16 PM BOX STORAGE WORKER LTBI (latent tuberculosis infection) CBC WITH AUTO DIFFERENTIAL Routine 03/26/2024 1:15 PM BOX STORAGE WORKER LTBI (latent tuberculosis infection) EGFR Routine 03/14/2024 9:09 AM BOX STORAGE WORKER LTBI (latent tuberculosis infection) DIFFERENTIAL AUTO Routine 03/14/2024 9:0 9 AM BOX STORAGE WORKER LTBI (latent tuberculosis infection) GLUCOSE, RANDOM (OUTREACH) Routine 03/14/2024 9:09 AM BOX STORAGE WORKER LTBI (latent tuberculosis infection) COMPREHENSIVE METABOLIC PANEL WITHOUT GLUCOSE (OUTREACH) Routine 03/14/2024 9:09 AM BOX STORAGE WORKER LTBI (latent tuberculosis infection) CBC WITH AUTO DIFFERENTIAL Routine 03/14/2024 9:09 AM BOX STORAGE WORKER LTBI (latent tuberculosis infection) COMPREHENSIVE METABOLIC PANEL (OUTREACH) Routine 03/14/2024 9:09 AM BOX STORAGE WORKER LTBI (latent tuberculosis infection) HM DIABETES EYE EXAM Routine 09/04/2023 8:55 AM CDT HEPATITIS PANEL, ACUTE Routine 07/03/2023 10:42 AM CDT High risk medication use from Last 3 Months or Most Recently Relevant to Health Maintenance Results * (ABNORMAL) eGFR (04/30/2024 2:40 PM BOX STORAGE WORKER) eGFR 44(L) >=60 mL/min/1. 73 m2 Comment: [...] last reviewed 2020. Blood 04/30/2024 2:40 PM BOX STORAGE WORKER 04/30/2024 11:04 PM BOX STORAGE WORKER us Stacybruno Hernandez ASSOCIATE FINANCIAL ANALYST LAB BLOOD ORDERABLES Valery l Result Performing Organization Address [facility] Co de Phone Number MALOU FRANK [address] [address] [facility] [email or web address] [address] * (ABNORMAL) Albumin Creatinine Ratio, Urine (04/30/2024 2:40 PM BOX STORAGE WORKER) Albumin Ur 3,067.5 mg/L Comment: Interpretive Data No reference range established. Current interpretive data was last revised 2018. Creatinine Ur 81.5 mg/dL [facility] Comment: Interpretive Data No reference range established. Current interpretive data was last revised 2018. Albumin Creatinine Ratio, Ur 3,764(H) 1 - 29 mg/g [facility] Urine 04/30/2024 2:40 PM BOX STORAGE WORKER 04/30/2024 11:00 PM BOX STORAGE WORKER us Stacy Hernandez ASSOCIATE FINANCIAL ANALYST LAB URINE ORDERABLES Valery l Result Performing Organization Address [facility] Co de Phone Number KBMAGNUS FRANK [address] [facility] [email or web address] [address] * TSH (04/30/2024 2:40 PM BOX STORAGE WORKER) Thyroid Stimulating Hormone 2.51 0.30 - 4.20 mcIUnit/mL Blood 04/30/2024 2:40 PM BOX STORAGE WORKER 04/30/2024 11:00 PM BOX STORAGE WORKER us Stacy Hernandez ASSOCIATE FINANCIAL ANALYST LAB BLOOD ORDERABLES Valery l Result MALOU FRANK [address] [address] [facility] [email or web address] [address] * T4, free (04/30/2024 2:40 PM BOX STORAGE WORKER) Free T4 1.27 0.90 - 1.70 ng/dL Blood 04/30/2024 2:40 PM BOX STORAGE WORKER 04/30/2024 11:00 PM BOX STORAGE WORKER us Stacy Hernandez NP LAB BLOOD ORDERABLES Valery rivera Result MALOU FRANK [address] Department [place] [address] * Lipid panel (04/30/2024 2:40 PM BOX STORAGE WORKER) Cholesterol 119 30 - 199 mg/dL Comment: [...] 3. Avi Hall et al. SHELBI Cardiol. 2019June 27;5(5):540-548. doi: 10.1001/jamacardio.2020.0013 Current Interpretive Data was [...] 2 MALOU FRANK Blood 04/30/2024 2:40 PM BOX STORAGE WORKER 04/30/2024 11:00 PM BOX STORAGE WORKER us Stacy Hernandez NP LAB BLOOD ORDERABLES Valery l Result MALOU FRANK [address] [address] Department [place] [address] * (ABNORMAL) Comprehensive metabolic panel (04/30/2024 2:40 PM BOX STORAGE WORKER) Sodium 137 135 - 145 mmol/L Potassium, [...] Units/L CERNER CH Blood 04/30/2024 2:40 PM BOX STORAGE WORKER 04/30/2024 11:00 PM BOX STORAGE WORKER us Stacy Hernandez NP LAB BLOOD ORDERABLES Valery l Result MALOU FRANK [address] [address] Department [place] [address] * (ABNORMAL) POCT hemoglobin A1c (04/30/2024 1:58 PM BOX STORAGE WORKER) [facility] Hemoglobin A1C, POC 8.0 4.0 - 5.6 % Blood 04/30/2024 1:58 PM BOX STORAGE WORKER Stacy Hernandez ASSOCIATE FINANCIAL ANALYST POINT OF CARE TEST ORDERA BLES Final Result * (ABNORMAL) POCT glucose (04/30/2024 1:58 PM BOX STORAGE WORKER) [facility] Glucose Blood, POC 324 mg/dL Blood 04/30/2024 1:58 PM BOX STORAGE WORKER us Stacy Hernandez ASSOCIATE FINANCIAL ANALYST POINT OF CARE TEST ORDERA BLES Final Result * (ABNORMAL) Comprehensive metabolic panel (04/27/2024 2:21 AM BOX STORAGE WORKER) [facility] SCRIBED Sodium 134(A) 136 - 145 mmol/L [...] Units/L EXTERNAL LAB SCRIBED eGFR in NonAfrican Turkish 37 <60 - NA EXTERNAL LAB Blood 04/27/2024 2:21 AM BOX STORAGE WORKER us Historical Provider MD LAB BLOOD ORDERABLES Edit ed Result - Final EXTERNAL LAB * Dexa Axial Skeleton Bone Density 1 or 2 Site (04/02/2024 11:04 AM BOX STORAGE WORKER) Anatomical Region Laterality Modality Body N/A Radiographic Sheron ging Narrative 04/02/2024 2:27 PM BOX STORAGE WORKER Patient Name: Aleyda Dobbs Date of : 1950 Date of scan: 04/02/2024 Bone mineral density was performed on a [employer] Discovery Densitometer. Based on machine cross-calibration and [...] mineral density scan were prepared by Agnes Valente)(Vivek)() CBDT who is accredited by the International Society of Clinical Densitometry. The overall patient assessment and scan interpretation were performed by Chacho Sanon M.D. who is certified by the International Society of Clinical Densitometry. [id number] Shawanda De La Cruz NP [facility] DXA PROCEDURES Final R esult * (ABNORMAL) Comprehensive metabolic panel (Outreach) (03/26/2024 1:16 PM BOX STORAGE WORKER) [facility] Glucose 173(H) 65 - 99 mg/dL [employer]a Broussard Comment: For someone without known diabetes, a glucose value >125 mg/dL indicates that they may have diabetes and this should be confirmed with a follow-up test. Fasting reference interval BUN 37(H) 7 - 25 mg/dL [employer] Broussard Creatinine 1.39(H) 0.60 - 1.00 mg/dL [employer] [facility] HoldingsElisha Broussard eGFR 41(L) > OR = 60 mL/min/1.7 3m2 [facility] BUN/creat ratio 27(H) 6 - 22 (calc) [facility] Sodium 138 135 - 146 mmol/L [facility] Potassium 4.1 3.4 - 4.8 mmol/L [facility] Chloride 107 98 - 110 mmol/L [facility] CO2 25 20 - 32 mmol/L [facility] Calcium 9.0 8.6 - 10.4 mg/dL [facility] Protein, Total 7.1 6.4 - 8.4 g/dL [facility] Albumin 3.4(L) 3.6 - 5.1 g/dL [facility] Globulin 3.7 2.2 - 4.0 g/dL (calc) [facility] Alb/glob ratio 0.9 0.9 - 2.3 (calc) [facility] Bilirubin, total 0.4 0.2 - 1.2 mg/dL [facility] Alk phos 108 37 - 153 U/L [facility] AST 41(H) 10 - 35 U/L [facility] ALT (SGPT) 27 6 - 29 U/L [facility] Blood 03/26/2024 1:16 PM BOX STORAGE WORKER 03/26/2024 1:17 PM BOX STORAGE WORKER us Ana Laura Ramires ASSOCIATE FINANCIAL ANALYST LAB BLOOD ORDERABLES Valery rivera Result [facility] CorporationFrancisco Javier [address] [place] [address] * (ABNORMAL) CBC with auto differential (03/26/2024 1:15 PM BOX STORAGE WORKER) WBC 4.5 3.8 - 10.8 Thousand/u L [facility] Richard-Shala Broussard RBC, POC 3.35(L) 3.80 - 5.10 Million/uL [facility] Hgb 8.9(L) 11.7 - 15.5 g/dL [facility] Hct 30.1(L) 35.0 - 45.0 % [facility]-Shala Brouss[facility] MCV 89.9 80.0 - 100.0 fL [facility] MCH 26.6(L) 27.0 - 33.0 pg [facility] [...] [facility] Blood 03/26/2024 1:15 PM BOX STORAGE WORKER 03/26/2024 1:15 PM BOX STORAGE WORKER us Ana Laura Ramires ASSOCIATE FINANCIAL ANALYST LAB BLOOD ORDERABLES Valery l Result [facility] [id number] [place] [address] * Glucose, random (Outreach) (03/14/2024 9:09 AM BOX STORAGE WORKER) Glucose 137 70 - 199 mg/dL Comment: [...] last revised 2022. Blood 03/14/2024 9:09 AM BOX STORAGE WORKER 03/14/2024 1:24 PM BOX STORAGE WORKER us Ana Laura Ramires ASSOCIATE FINANCIAL ANALYST LAB BLOOD ORDERABLES Valery l Result MALOU CASTILLO [facility] Department [place] [address] * (ABNORMAL) eGFR (03/14/2024 9:09 AM BOX STORAGE WORKER) eGFR 38(L) >=60 mL/min/1. 73 m2 Comment: [...] last reviewed 2020. Blood 03/14/2024 9:09 AM BOX STORAGE WORKER 03/14/2024 1:30 PM BOX STORAGE WORKER us Ana Laura Ramires ASSOCIATE FINANCIAL ANALYST LAB BLOOD ORDERABLES Valery l Result [facility] Department [place] [address] * Differential, auto (03/14/2024 9:09 AM BOX STORAGE WORKER) Neutrophil abs 3.8 1.5 - 6.5 K/cumm Imm gran abs 0.1 0.0 - 0.1 K/cumm [facility] Lymphocyte abs 2.2 0.8 - 3.3 K/cumm [facility] Monocyte abs 0.6 0.2 - 0.8 K/cumm [facility] Eosinophil abs 0.3 0.0 - 0.5 K/cumm [facility] Basophil abs 0.0 0.0 - 0.1 K/cumm [facility] Neutrophil pct 54.3 % [facility] Comment: Interpretive Data Percent cell count reference ranges are not reported, since discordance with absolute values may lead to misinterpretation of CBC data. Current Interpretive Data was last revised on 2017. Imm gran pct 0.9 % [facility] Comment: Interpretive Data Percent cell count reference ranges are not reported, since discordance with absolute values may lead to misinterpretation of CBC data. Current Interpretive Data was last revised on 2017. Lymphocyte pct 31.4 % [facility] Comment: Interpretive Data Percent cell count reference ranges are not reported, since discordance with absolute values may lead to misinterpretation of CBC data. Current Interpretive Data was last revised on 2017. Monocyte pct 8.0 % [facility] Comment: Interpretive Data Percent cell count reference ranges are not reported, since discordance with absolute values may lead to misinterpretation of CBC data. Current Interpretive Data was last revised on 2017. Eosinophil pct 4.8 % [facility] Comment: Interpretive Data Percent cell count reference ranges are not reported, since discordance with absolute values may lead to misinterpretation of CBC data. Current Interpretive Data was last revised on 2017. Basophil pct 0.6 % [facility] Comment: Interpretive Data Percent cell count reference ranges are not reported, since discordance with absolute values may lead to misinterpretation of CBC data. Current Interpretive Data was last revised on 2017. Blood 03/14/2024 9:09 AM BOX STORAGE WORKER 03/14/2024 1:24 PM BOX STORAGE WORKER us Ana Laura Ramires ASSOCIATE FINANCIAL ANALYST LAB BLOOD ORDERABLES Valery l Result Performing Organization Address [facility]/ZIP Co de Phone Number [facility] Department [place] [address] * (ABNORMAL) Comprehensive metabolic panel, without glucose (Outreach) (03/14/2024 9:09 AM BOX STORAGE WORKER) Pathologist [facility] Sodium 141 135 - 145 mmol/L Potassium, pl 4.6 3.3 - 4.9 mmol/L [facility] Chloride 102 97 - 110 mmol/L [facility] CO2 28 22 - 32 mmol/L [facility] Anion gap 11 2 - 15 mmol/L [facility] BUN 29(H) 6 - 25 mg/dL [facility] Creatinine 1.48(H) 0.60 - 1.10 mg/dL [facility] Calcium 9.0 8.5 - 10.3 mg/dL [facility] Protein, pl 7.8 6.5 - 8.5 g/dL [facility] Albumin 3.5 3.5 - 5.0 g/dL [facility] Bilirubin, total 0.2 0.1 - 1.2 mg/dL [facility] Alk phos 176(H) 40 - 130 Units/L [facility] AST 88(H) 10 - 45 Units/L [facility] ALT 92(H) 7 - 45 Units/L [facility] Blood 03/14/2024 9:09 AM BOX STORAGE WORKER 03/14/2024 1:24 PM BOX STORAGE WORKER Ana Laura Ramires ASSOCIATE FINANCIAL ANALYST LAB BLOOD ORDERABLES Valery l Result [facility] Department [place] [address] * (ABNORMAL) CBC with auto differential (03/14/2024 9:09 AM BOX STORAGE WORKER) WBC 6.9 3.8 - 9.9 K/cumm Hgb 8.5(L) 11.9 - 15.5 g/dL [facility] Hct 28.8(L) 35.6 - 45.5 % [facility] Plt 181 150 - 400 K/cumm [facility] MPV 12.0 9.1 - 12.3 fL [facility] RBC 3.27(L) 3.90 - 5.20 M/cumm [facility] MCV 88.1 81.3 - 96.4 fL [facility] MCH 26.0(L) 27.1 - 33.3 pg [facility] MCHC 29.5(L) 32.3 - 35.7 g/dL [facility] RDW CV 17.1(H) 11.1 - 14.9 % [facility] RDW SD 54.5(H) 35.7 - 48.1 fL [facility] NRBC abs 0.00 0.00 - 0.01 K/cumm [facility] Blood 03/14/2024 9:09 AM BOX STORAGE WORKER 03/14/2024 1:24 PM BOX STORAGE WORKER Ana Laura Ramires NP LAB BLOOD ORDERABLES Valery rivera Result [facility] Department [place] [address] * (ABNORMAL) DIABETES EYE EXAM (09/04/2023 8:55 AM CDT) Historical Provider HEALTH MAINTENANCE Final Result * Hepatitis panel, acute Blood (07/03/2023 10:42 AM CDT) [facility] Hep A IgM Nonreactive Nonreactive Hep B core IgM Nonreactive Nonreactive [facility] Hep C Ab Nonreactive Nonreactive [facility] Comment:Antibodies to HCV no t detected. Does NOT exclude the possibility of recent exposure to HCV. Current interpretive data was last revised on 21 HepBsAg Nonreactive Nonreactive [facility] Blood 07/03/2023 10:4 2 AM CDT 07/03/2023 2:00 PM CDT us Shawanda De La Cruz NP LAB MICROBIOLOGY - GENERAL ORDERABLES Final Result MALOU BJ [facility] Department [place] [address] from Last 3 Months or Most Recently Relevant to Health Maintenance Insurance MEDICARE [address] [employer] OPEN ACCESS MEDICARE [address] [employer] OPEN ACCESS MEDICARE [address] [employer] OPEN ACCESS Advance Directives For more information, please contact: [phone] * Full Code (Latest Code Status on File) Date Activated Date Inactivated Comments 07/20/2020 2:30 PM 07/21/2020 6:17 PM * Full Code Date Activated Date Inactivated Comments 08/14/2018 8:57 PM 08/15/2018 6:35 PM Care Teams 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
--- OUTSIDE RECORDS SUMMARY | 2024-06-04 00:47 | XMS_ITS | Data Portability ---
Author Organization [facility] Address [address] [facility] [place] [address] Care Team Providers Care Unit Coordinator Name Role Phone ELVIN ROSE Director Furniture Assessment Encounter Date Assessment Date Assessment LastModified by Organization Details LastModified Time 09/09/2022 09/09/2022 JOE Caceres Not available 09/09/2022 16:12:12 Plan of Treatment Reminders Order Date Submit Date Provider Last Modified By Organization Details Last Modified Time Details Appointments None recorded . Lab culture, respirat ory 2022 023 CHRIS [facility] (Centralized Electronic Ordering - All Locations), Patient Can Go To The Location Of Their Choice, 3 07:14:00 patholog y study 2022 023 CHRIS [facility] (Centralized Electronic Ordering - All Locations), Patient Can Go To The Location Of Their Choice, 3 17:10:11 patholog y study 2022 023 CHRIS [facility] (Centralized Electronic Ordering - All Locations), Patient Can Go To The Location Of Their Choice, 3 15:50:29 bacteria l vaginosi s panel, vaginal 2022 023 CHRIS [facility] (Centralized Electronic Ordering - All Locations), Patient Can Go To The Location Of Their Choice, [id number] 3 06:14:20 urinalys is, dipstick 2022 023 CHRIS In-Office Order, Internal Use Only DO Not Attach Compendium DO Not Attach Compendium, Do Not Delete/merge, [id number] 3 10:02:27 culture, urine 2022 023 CHRIS [facility] (Centralized Electronic Ordering - All Locations), Patient Can Go To The Location Of Their Choice, [id number] 3 06:14:08 urinalys is, dipstick 2019 myranda In-Office Order, Internal Use Only DO Not Attach Compendium DO Not Attach Compendium, Do Not Delete/merge, [id number] 0 15:19:43 culture, urine 2019 [facility], 2022 Kang Mccormick, [address], [address], 0 06:12:47 bacteria l vaginosi s panel, vaginal 2019 TONEY [facility] (Centralized Electronic Ordering - All Locations), Patient Can Go To The Location Of Their Choice, [id number] 0 06:12:46 culture, vaginal/ rectal, streptoc occus group B 2019 [facility]), Patient Can Go To The Location Of Their Choice, [id number] 0 06:12:47 Referral None recorded . Procedures None recorded . Surgeries None recorded . Imaging None recorded . Medication Orders benzonat ate 200 mg capsule 2023 024 TONEY [facility] #[id number], [address] [facility], [place], [place], [id number], 4 09:38:18 Zithroma x Z-Kirt 250 mg tablet 2023 024 TONEY [facility] #24384, [address] [facility], [place], [place], [id number], 4 09:38:17 cetirizi ne 10 mg tablet 2023 024 [facility] #[id number], [address] [place], [place], [id number], 4 09:38:18 estradio l 0.01% (0.1 mg/gram) vaginal cream 2022 024 [facility]00750, [address] [place], [place], [id number], 4 09:03:10 estradio l 0.01% (0.1 mg/gram) vaginal cream 2022 023 [facility] #74789, [address] [place], [place], [id number], 4 09:01:41 estradio l 0.01% (0.1 mg/gram) vaginal cream 2022 023 [facility] #76109, [address] [place], [place], [id number], 4 09:01:41 Premarin 0.625 mg/gram vaginal cream 2019 020 [facility], [address] [place] [address], [id number], 3 13:59:43 ciproflo xacin 250 mg tablet 2019 020 [facility], [address] [place] [address], [id number], 3 14:21:14 Patient TargetsNo targets recorded. Patient Instructions Encounter Date Encounter Id Patient Instructions Last Modified By Organization Details Last Modified Time 12/05/2019 [id number] influenza (flu) vaccine: care instructions myranda Not available 12/05/2019 15:19:43 atrophic vaginitis: care instructions mwasserman Not available 12/05/2019 13:29:10 05/31/2022 [id number] atrophic vaginitis: care instructions Not available 05/31/2022 09:44:32 Urge Incontinence: Care Instructions Not available 05/31/2022 09:44:18 Stress Incontinence: Care Instructions Not available 05/31/2022 09:44:18 kegel exercises: care instructions Not available 05/31/2022 09:44:18 bladder training: care instructions Not available 05/31/2022 09:44:18 A healthy lifestyle: care instructions Not available 05/31/2022 09:12:13 09/09/2022 [id number] atrophic vaginitis: care instructions Not available 09/09/2022 15:50:24 A healthy lifestyle: care instructions Not available 09/09/2022 15:50:24 12/09/2022 [id number] atrophic vaginitis: care instructions Not available 12/09/2022 15:01:23 A healthy lifestyle: care instructions Not available 12/09/2022 15:01:23 04/17/2023 [id number] body mass index: care instructions [email or web address] Not available 04/17/2023 09:38:09 learning about healthy weight [email or web address] Not available 04/17/2023 09:38:09 upper respiratory infection (cold): care instructions Not available 04/17/2023 09:38:09 Reason for Referral None Reported. Results Created Date Observation Date Name Description Value Unit Range Abnormal Flag Note LastModifiedBy Organization Detail LastModifiedTime 12/05/19 20 12/05/2019 urina lysis , dipst ick Leukocytes Negati ve Not Available In-Office Order Internal Use Only DO Not Attach Compendium DO Not Attach Compendium, Do Not Delete/merge, [id number] 12/05/2019 12:30:15 12/05/19 20 12/05/2019 urina lysis , dipst ick Nitrite positi ve Not Available In-Office Order Internal Use Only DO Not Attach Compendium DO Not Attach Compendium, Do Not Delete/merge, [id number] 12/05/2019 12:30:15 12/05/19 20 12/05/2019 urina lysis , dipst ick Urobilinogen .2 Not Available In-Of fice Order Internal Use Only DO Not Attach Compendium DO Not Attach Compendium, Do Not Delete/merge, [id number] 12/05/2019 12:30:15 12/05/19 20 12/05/2019 urina lysis , dipst ick Protein 300 Not Available In-Office Order Internal Use Only DO Not Attach Compendium DO Not Attach Compendium, Do Not Delete/merge, [id number] 12/05/2019 12:30:15 12/05/19 20 12/05/2019 urina lysis , dipst ick pH 5.5 Not Available In-Office Order Internal Use Only DO Not Attach Compendium DO Not Attach Compendium, Do Not Delete/merge, 12/05/2019 12:30:15 12/05/19 20 12/05/2019 urina lysis , dipst ick Blood Small Not Available In-Office Order Internal Use Only DO Not Attach Compendium DO Not Attach Compendium, Do Not Delete/merge, 12/05/2019 12:30:15 12/05/19 20 12/05/2019 urina lysis , dipst ick Specific Cayucos 1.030 Not Available In-Off ice Order Internal Use Only DO Not Attach Compendium DO Not Attach Compendium, Do Not Delete/merge, 12/05/2019 12:30:15 12/05/19 20 12/05/2019 urina lysis , dipst ick Ketone Negati ve Not Available In-Office Order Internal Use Only DO Not Attach Compendium DO Not Attach Compendium, Do Not Delete/merge, 12/05/2019 12:30:15 12/05/19 20 12/05/2019 urina lysis , dipst ick Bilirubin Negati ve Not Available In-Office Order Internal Use Only DO Not Attach Compendium DO Not Attach Compendium, Do Not Delete/merge, [id number] 12/05/2019 12:30:15 12/05/19 20 12/05/2019 urina lysis , dipst ick Glucose Negati ve Not Available In-Office Order Internal Use Only DO Not Attach Compendium DO Not Attach Compendium, Do Not Delete/merge, [id number] 12/05/2019 12:30:15 12/05/1912/07/2019 bacte rial vagin osis panel , vagin al trich vag by ALBERTO Negati ve negati ve Not Available [facility] ([facility]) [address] [place], [address], 12/11/2019 06:12:46 12/05/1912/07/2019 bacte rial vagin osis panel , vagin al chlamydia trachomatis, ALBERTO Negati ve negati ve Not Available [facility] ([facility]) [address] [place], [address], 12/11/2019 06:12:46 12/05/1912/07/2019 bacte rial vagin osis panel , vagin al neisseria gonorrhoeae, ALBERTO Negati ve negati ve Not Available [facility] ([facility]) [address] [place], [address], 12/11/2019 06:12:46 12/05/1912/08/2019 bacte rial vagin osis panel , vagin al hsv 1 ALBERTO Negati ve negati ve Not Available [facility] ([facility]) [address] [place], [address], 12/11/2019 06:12:46 12/05/1912/08/2019 bacte rial vagin osis panel , vagin al hsv 2 ALBERTO Negati ve negati ve Not Available [facility] ([facility]) [address] [place], [address], 12/11/2019 06:12:46 12/05/1912/11/2019 bacte rial vagin osis panel , vagin al atopobium vaginae Low - 0 score Not Available [facility] ([facility]) [address] [place], [address], 12/11/2019 06:12:46 12/05/1912/11/2019 bacte rial vagin osis panel , vagin al bvab 2 Low - 0 score Not Available [facility] ([facility]) [address] [place], [address], 12/11/2019 06:12:46 12/05/1912/11/2019 bacte rial vagin osis panel , vagin al megasphaera 1 Low - 0 score Calcu late total score by shana chavez the 3 indiv idual bacte rial vagin osis (BV) marke r score s toget her. Total score is inter prete d as follo ws: Total score 0-1: Indic ates the absen ce of BV. Total score 2: Indet ermin ate for BV. Addit ional clini jose data shoul d be evalu ated to estab jacquelin a diagn osis. Total score 3-6: Indic ates the prese nce of BV. This test was devel oped and its perfo rmanc e zachary cteri stics deter mined by [employer]. It has not been clear ed or appro cristian by the Food and Drug Admin istra tion. The FDA has deter mined that such clear ance or appro daniel is not neces radha. Not Available [facility] ([facility]) [address] [place], [address], 12/11/2019 06:12:46 12/05/1912/11/2019 bacte rial vagin osis panel , vagin al janice albicans, ALBERTO Negati ve negati ve Not Available [facility] ([facility]) [address] [place], [address], 12/11/2019 06:12:46 12/05/1912/11/2019 bacte rial vagin osis panel , vagin al janice glabrata, ALBERTO Negati ve negati ve Not Available [facility] ([facility]) [address] [place], [address], 12/11/2019 06:12:46 12/05/1912/07/2019 cultu re, vagin al/re ctal, strep tococ cus group B strep gp B ALBERTO Negati ve negati ve Cente rs for Disea se Contr ol and Preve ntion (CDC) and Ameri can Congr ess of Obste trici ans and Gynec ologi sts (ACOG ) guide lines for preve ntion of perin atal group B strep tococ jose (GBS) disea se speci fy co-co llect ion of a vagin al and recta l swab speci men to maxim ize sensi tivit y of GBS detec tion. Per the CDC and ACOG, swabb ing both the lower vagin a and rectu m subst antia lly incre ases the yield of detec tion sebastian red with sampl ing the vagin a alone . Penic illin G, ampic illin , or cefaz corey are indic ated for intra partu m proph ylaxi s of perin atal GBS colon izati on. Refle x susce ptibi lity testi ng shoul d be perfo rmed prior to use of clind amyci n only on GBS isola dov from penic illin -laz rgic women who are consi dered a high risk for anaph ylaxi s. Treat ment with vanco mycin witho ut addit ional testi ng is warra nted if resis tance to clind amyci n is noted . Not Available [facility] ([facility]) [address] [facility], [place], [address], 12/11/2019 06:12:47 12/05/1912/08/2019 cultu re, urine urine culture, routine Final report abnormal Not Available [facility] ([facility]) [address] [facility], [place], [address], 12/11/2019 06:12:47 12/05/1912/08/2019 cultu re, urine result 1 Klebsi bambi pneumo niae abnormal Great er than 100,0 00 colon y formi ng units per mL Cefaz corey <=4 ug/mL Cefaz corey with an MAYELA <=16 predi cts susce ptibi lity to the oral agent s cefac ye, cefdi yosvany, cefpo doxim e, cefpr ozil, cefur oxime , cepha lexin , and lorac arbef when used for thera py of uncom plica roxanne urina ry tract infec tions due to E. coli, Klebs iella pneum oniae , and Prote us mirab ilis. Not Available [facility] ([facility]) [address] [facility], [place], [address], 12/11/2019 06:12:47 12/05/1912/08/2019 cultu re, urine antimicrobia l susceptibili ty Commen t S = Susce ptibl e; I = Inter media te; R = Resis tant P = Posit angelina; N = Negat angelina MICS are expre ssed in micro grams per mL Antib iotic RSLT# 1 RSLT# 2 RSLT# 3 RSLT# 4 Amoxi cilli n/Cla vulan ic Acid S Ampic illin R Cefep ladarius S Ceftr iaxon e S Cefur oxime S Cipro floxa candice S Ertap enem S Genta micin S Imipe nem S Levof loxac in S Merop enem S Nitro furan toin R Piper acill in/Ta zobac berger S Tetra cycli ne S Tobra mycin S Trime thopr im/Rankin lfa S Not Available [facility] ([facility]) [address] [facility], [place], [address], 12/11/2019 06:12:47 06/01/1906/02/2022 URINE CULTU RE, ROUTI NE urine culture, routine FINAL REPORT Not Available [facility] ([facility]) [address] [facility], [place], [address], 06/02/2022 06:14:07 06/01/1906/02/2022 URINE CULTU RE, ROUTI NE result 1 COMMEN T Cultu re shows less than 10,00 0 colon y formi ng units of bacte edy per allison liter of urine . This colon y count is not gener ally consi dered to be clini samra signi will t. Not Available [facility] ([facility]) [address] [place], [address], 06/02/2022 06:14:07 06/01/19 23 06/01/2022 NUSWA B BV AND BRIANNA DA, ALBERTO atopobium vaginae LOW - 0 score Not Available [facility] ([facility]) [address] [facility], [place], [address], 06/02/2022 06:14:19 06/01/19 23 06/01/2022 NUSWA B BV AND BRIANNA DA, ALBERTO bvab 2 LOW - 0 score Not Available [facility] ([facility]) [address] [place], [address], 06/02/2022 06:14:19 06/01/19 23 06/01/2022 NUSWA B BV AND BRIANNA DA, ALBERTO megasphaera 1 LOW - 0 score Calcu late total score by shana g the 3 indiv idual bacte rial vagin osis (BV) marke r score s toget her. Total score is inter prete d as follo ws: Total score 0-1: Indic ates the absen ce of BV. Total score 2: Indet ermin ate for BV. Addit ional clini jose data shoul d be evalu ated to estab jacquelin a diagn osis. Total score 3-6: Indic ates the prese nce of BV. This test was devel oped and its perfo rmanc e zachary cteri stics deter mined by [facility]. It has not been clear ed or appro cristian by the Food and Drug Admin istra tion. Not Available [facility] ([facility]) [address] [facility], [place], [address], 06/02/2022 06:14:19 06/01/19 23 06/01/2022 NUSWA B BV AND BRIANNA DA, ALBERTO janice albicans, ALBERTO NEGATI VE negati ve Not Available [facility] ([facility]) [address], [place], [address], 06/02/2022 06:14:19 06/01/19 23 06/01/2022 NUSWA B BV AND BRIANNA DA, ALBERTO janice glabrata, ALBERTO NEGATI VE negati ve Not Available [facility] ([facility]) [address] [facility], [place], [address], 06/02/2022 06:14:19 06/01/19 23 05/31/2022 urina lysis , dipst ick Leukocytes Negati ve Not Available In-Office Order Internal Use Only DO Not Attach Compendium DO Not Attach Compendium, Do Not Delete/merge, 05/31/2022 09:03:28 06/01/19 23 05/31/2022 urina lysis , dipst ick Nitrite negati ve Not Available In-Office Order Internal Use Only DO Not Attach Compendium DO Not Attach Compendium, Do Not Delete/merge, 05/31/2022 09:03:28 06/01/19 23 05/31/2022 urina lysis , dipst ick Urobilinogen .2 Not Available In-Of fice Order Internal Use Only DO Not Attach Compendium DO Not Attach Compendium, Do Not Delete/merge, 05/31/2022 09:03:28 06/01/19 23 05/31/2022 urina lysis , dipst ick Protein 100 Not Available In-Office Order Internal Use Only DO Not Attach Compendium DO Not Attach Compendium, Do Not Delete/merge, 05/31/2022 09:03:28 06/01/19 23 05/31/2022 urina lysis , dipst ick pH 5.5 Not Available In-Office Order Internal Use Only DO Not Attach Compendium DO Not Attach Compendium, Do Not Delete/merge, 05/31/2022 09:03:28 06/01/19 23 05/31/2022 urina lysis , dipst ick Blood Non-He molyze d: Trace Not Available In-Office Order Internal Use Only DO Not Attach Compendium DO Not Attach Compendium, Do Not Delete/merge, 05/31/2022 09:03:28 06/01/19 23 05/31/2022 urina lysis , dipst ick Specific [place] 1.025 Not Available In-Off ice Order Internal Use Only DO Not Attach Compendium DO Not Attach Compendium, Do Not Delete/merge, 05/31/2022 09:03:28 06/01/19 23 05/31/2022 urina lysis , dipst ick Ketone Negati ve Not Available In-Office Order Internal Use Only DO Not Attach Compendium DO Not Attach Compendium, Do Not Delete/merge, 05/31/2022 09:03:28 06/01/19 23 05/31/2022 urina lysis , dipst ick Bilirubin Negati ve Not Available In-Office Order Internal Use Only DO Not Attach Compendium DO Not Attach Compendium, Do Not Delete/merge, 05/31/2022 09:03:28 06/01/19 23 05/31/2022 urina lysis , dipst ick Glucose 100 Not Available In-Office Order Internal Use Only DO Not Attach Compendium DO Not Attach Compendium, Do Not Delete/merge, 05/31/2022 09:03:28 06/01/19 23 05/31/2022 urina lysis , dipst ick Appearance Cloudy Not Available In-Offi ce Order Internal Use Only DO Not Attach Compendium DO Not Attach Compendium, Do Not Delete/merge, 05/31/2022 09:03:28 06/01/19 23 05/31/2022 urina lysis , dipst ick Color Pale Yellow Not Available In-Office Order Internal Use Only DO Not Attach Compendium DO Not Attach Compendium, Do Not Delete/merge, 05/31/2022 09:03:28 09/10/19 23 09/13/2022 UPPER RESPI RATOR Y CULTU RE upper respiratory culture Final report Not Available [facility] ([facility]) [address] [facility], [place], [address], 09/13/2022 07:14:00 09/10/19 23 09/13/2022 UPPER RESPI RATOR Y CULTU RE result 1 Commen t Routi ne respi rator y jason Not Available [facility] ([facility]) [address] [facility], [place], [address], 09/13/2022 07:14:00 09/10/19 23 09/14/2022 PATHO LOGY REPOR T . Commen t Mater ial submi tted: . PART A: vagin a - VAGIN AL BIOPS Y PART B: vagin a - VAGIN AL BIOPS Y #2 Not Available [facility] ([facility]) [address] [facility], [place], [address], 09/14/2022 17:10:11 09/10/19 23 09/14/2022 PATHO LOGY REPOR T . Commen t Diagn osis: A. VAGIN AL BIOPS Y: - BENIG N VERRU COID SQUAM OUS PROLI FERAT ION WITH COMBI FATUMA FEATU RES OF SEBOR RHEIC KERAT OSIS AND CONDY ANNEMARIE ACUMI NATUM . B. VAGIN AL BIOPS Y #2: - POLYP OID BENIG N SQUAM OUS PROLI FERAT ION SEBASTIAN TIBLE WITH CONDY ANNEMARIE ACUMI NATUM . COMME NT: CLINI JOSE CORRE LATIO N AND PATIE NT FOLLO W-UP ARE RECOM JANETTE Knight [facility] 09/14 1042 Local Not Available [facility] ([facility]) [address] [facility], [place], [address], 09/14/2022 17:10:11 09/10/19 23 09/14/2022 PATHO LOGY REPOR T . Commen t Elect margarita caba d: . Onel awan MD, Patho logis t Not Available [facility] ([facility]) [address] [facility], [place], [address], 09/14/2022 17:10:11 09/10/19 23 09/14/2022 PATHO LOGY REPOR T . Commen t Gross descr iptio n: . 2 Conta iners , forma apple-f illed , label ed with patie nt ident ifica tion. Part A: VAGIN AL BIOPS Y: RECEI CRISTIAN IS 1 FRAGM ENT OF DOWNING SOFT TISSU E MEASU RING 0.7 X 0.4 X 0. CM. TISSU E IS INKED blue. SPEci men IS SUBMI TTED IN ITS ENTIR ETY IN CASSE TTE a1. Part B: VAGIN AL BIOPS Y #2: RECEI CRISTIAN ARE 2 FRAGM ENTS OF BROWN SOFT TISSU E MEASU RING 0.4 X 0.3 X 0.2 CM. TISSU E IS INKED red. IT IS SUBMI TTED IN ITS ENTIR ETY IN CASSE TTE b1. KATHERIN/Harriett FELIPE 09/12 1054 Local Not Available [facility] ([facility]) [address] [place], [address], 09/14/2022 17:10:11 09/10/19 23 09/14/2022 PATHO LOGY REPOR T . Commen t Patho logis t provi ded ICD-1 0: L82.1 Not Available [facility] ([facility]) [address] [place], [address], 09/14/2022 17:10:11 09/10/19 23 09/14/2022 PATHO LOGY REPOR T . Commen t CPT . 41172 1, 80405 2 Not Available [facility] ([facility]) [address] [place], [address], 09/14/2022 17:10:11 10/08/1910/07/2020 MAMMO , scree guerda, bilat eral No observ ation record ed. [email or web address] [facility] [address] [place], [address], 11/19/2020 12:35:37 12/01/1911/30/2022 MAMMO , scree guerda, bilat eral No observ ation record ed. [address], [place], [address], 12/05/2022 10:12:44 12/01/1911/30/2022 MAMMO , scree guerda, bilat eral No observ ation record ed. [facility] [address] [place], [address], 12/01/2022 15:59:09 Result Notes None recorded. Problems Name Problem SNOMED Code Status Onset Date Resolution Date Notes Provider Name and Address Organization Details Recorded Time Morbid obesity 394644590 Active 2019 Eduardo De Los SantosKaya null, [place] - [facility] 0 15:34:32 Hypothyroid ism 87908027 Active 2019 Eduardo De [place] [facility] 0 15:55:57 Hypertensiv e disorder 79721994 Active 2019 Eduardo De [place] [facility] 0 15:56:02 Diabetes mellitus 74744044 Active 2019 Eduardo [place] [facility] 0 15:56:06 Hyperlipide silva 20999910 Active 2019 Eduardo [place] [facility] 0 15:56:18 Rheumatoid arthritis 55218810 Active 2022 FRANCISCO J SERRANO Attn: Salvador chavez,[address], [place], [address], [place] - [facility] 3 09:01:26 Menopause present 131075706 Active 2022 FRANCISCO J SERRANO Attn: Salvador chavez,[address] [place], [address], [place] - [facility] 3 09:03:40 Recurrent urinary tract infection 149196721 Active 2022 FRANCISCO J SERRANO Attn: Salvador chavez,[address] [place], [address], [place] [facility] 3 09:03:42 Liver enzymes level above reference range 408124989 Active 2022 FRANCISCO J SERRANO Attn: Salvador chavez,[address] [place], [address], [place] [facility] 3 09:04:52 Splenic hematoma 907368416 Active 2022 FRANCISCO J SERRANO Attn: Salvador chavez,[address] [place], [address], [place] [facility] 3 09:05:02 Partial thickness rotator cuff tear 113422702 Active 2022 FRANCISCO J SERRANO Attn: Salvador chavez,[address] [place], [address], [place] [facility] 3 09:05:19 Primary fibromyalgi a syndrome 40497506 Active 2022 FRANCISCO J SERRANO Attn: Salvador chavez,[address] [place], [address], [place] [facility] 3 09:05:32 Bilateral shoulder osteoarthri tis 4735239526184 08 Active 2022 FRANCISCO J SERRANO Attn: Salvador chavez,[address] [place], [address], [place] [facility] 3 09:05:58 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, [place], [address], [place] [facility] 3 09:06:14 Obstructive sleep apnea syndrome 35884008 Active 2022 FRANCISCO J SERRANO Attn: Salvador chavez,[address] [facility], [place], [address], [place] [facility] 3 09:06:37 Gout 63427908 Active 2022 FRANCISCO J SERRANO Attn: Salvador chavez,[address] [place], [address], [place] [facility] 3 09:06:45 Anxiety 88379415 Active 2022 FRANCISCO J SERRANO Attn: Salvador chavez,[address] [place], [address], [place] [facility] 3 09:06:51 Major depressive disorder 356229565 Active 2022 FRANCISCO J SERRANO Attn: Salvador chavez,[address] [place], [address], [place] [facility] 3 09:06:58 Amputated big toe 454114858 Active 2022 FRANCISCO J SERRANO Attn: Salvador chavez,[address] [place], [address], [place] [facility] 3 09:07:44 Diabetic peripheral neuropathy 810310678 Active 2022 FRANCISCO J SERRANO Attn: Salvador chavez,[address] [place], [address], [place] - [facility] 3 09:07:53 Problem Notes None recorded. Procedures Surgical History Date Name Laterality Status Provider Name and Address Organization Details Recorded Time 09/10/19 23 Shave Biopsy completed FRANCISCO J SERRANO Attn: Accounting,[address], [place], [address], [facility] 09/09/2022 16:09:52 05/01/19 20 Most Recent Mammogram completed Pascale Sherwood [facility] 12/05/2019 12:29:20 07/29/19 19 Orthopedic Surgery completed Rosario Corley [facility] 04/11/2019 15:29:51 06/06/19 18 Date of Last Pap Smear completed Rosario Corley [facility] 04/11/2019 15:26:57 02/27/19 15 Orthopedic Surgery completed Debra Magallanes [facility] 06/09/2014 11:55:20 02/27/19 13 Orthopedic Surgery completed Debra Magallanes [facility] 06/09/2014 11:55:20 02/27/19 11 Other completed Debra Magallanes [facility] 06/09/2014 11:55:20 02/27/19 11 Orthopedic Surgery completed Debra Magallanes [facility] 06/09/2014 11:55:20 02/27/19 08 Appendectomy completed Debra Magallanes [facility] 06/09/2014 11:55:20 02/27/19 05 Other completed Debra Magallanes [facility] 06/09/2014 11:55:20 Imaging Results Imaging Date Name Status LastModified by Organiz ation Details LastModified Time 10/07/2020 MAMMO, screening, bilateral completed [email or web address] [place] [address] [address] [place], [address], 11/19/2020 12:35:37 11/30/2022 MAMMO, screening, bilateral completed [facility] [address] [place] [address] [place], [address], 12/05/2022 10:12:44 11/30/2022 MAMMO, screening, bilateral completed [facility] [address] [place], [address], 12/01/2022 15:59:09 Procedure Notes None recorded. Medical Equipment None Reported. Allergies Allergen ID Allergen Name Allergen Category Reaction Reaction Severity Criticality Documentation Date Start Date Code Code System Note Provider Name and Address Organization Details Recorded Time [id number] vancomyci n medicatio n hives moderate Not available 12/05/2019 66318 RxNorm Not Available Not Available Not Available 560656 Betadine medicatio n rash mild Not available 12/05/2019 68683 0 RxNorm Not Available Not Available Not Available [id number] lisinopri l medicatio n cough mild Not available 12/05/2019 77533 RxNorm Not Available Not Available Not Available Medications Name Sig Start Date Stop Date Status Note LastModified by Organization Details LastModified Time multivitami n tablet Take 1 tablet every day by oral route. 04/11 completed Not Available Not Available Not Available atorvastati n 40 mg tablet Take 1 tablet every day by oral route. active Not Available Not Available No t Available gabapentin 600 mg tablet 05/30 completed Not Available Not Available Not Available tizanidine 2 mg tablet TAKE ONE TABLET BY MOUTH THREE TIMES DAILY NEEDED FOR MUSCLE SPASMS. 05/30 completed Not Available Not Available Not Available cetirizine 10 mg tablet TAKE 1 TABLET BY MOUTH ONCE DAILY active Not Available Not Available No t Available azithromyci n 250 mg tablet TAKE 2 TABLETS (500 MG) BY ORAL ROUTE ONCE DAILY FOR 1 DAY THEN 1 TABLET (250 MG) BY ORAL ROUTE ONCE DAILY FOR 4 DAYS active Not Available Not Available No t Available tizanidine 4 mg tablet TAKE 1 TABLET BY MOUTH TWICE DAILY NEEDED FOR MUSCLE SPASMS 05/30 completed Not Available Not Available Not Available fluconazole 150 mg tablet Take 1 tablet by oral route. 04/11 completed Not Available Not Available Not Available benzonatate 200 mg capsule TAKE 1 CAPSULE BY MOUTH THREE TIMES DAILY FOR 7 DAYS active Not Available Not Available No t Available hydrocodone 5 mg-acetamin ophen 325 mg tablet TAKE 1 TABLET BY MOUTH EVERY 6 HOURS NEEDED FOR PAIN 05/30 completed Not Available Not Available Not Available prochlorper azine maleate 5 mg tablet TAKE 1 TABLET BY MOUTH EVERY 8 HOURS NEEDED FOR NAUSEA OR VOMITING 05/30 completed Not Available Not Available Not Available fluconazole 200 mg tablet TAKE 1 TABLET BY MOUTH DIRECTED. 04/17 completed Not Available Not Available Not Available meloxicam 15 mg tablet TAKE 1/2 TABLET BY MOUTH TWICE DAILY active Not Available Not Available No t Available ondansetron HCl 4 mg tablet TAKE 1 TABLET BY MOUTH DAILY NEEDED FOR NAUSEA OR VOMITING active Not Available Not Available No t Available prednisone 20 mg tablet 04/11 completed Not Available Not Available Not Available prednisone 5 mg tablet 04/11 completed Not Available Not Available Not Available terconazole 0.8 % vaginal cream Insert 1 applicato rful every day by vaginal route for 3 days. 04/11 completed Not Available Not Available Not Available sulfasalazi ne 500 mg tablet,adria yed release 04/11 completed Not Available Not Available Not Available atenolol 25 mg tablet 04/11 completed Not Available Not Available Not Available leflunomide 10 mg tablet active Not Available Not Available Not Available amlodipine 2.5 mg tablet 05/30 completed Not Available Not Available Not Available acetaminoph en 300 mg-codeine 30 mg tablet active Not Available Not Available Not Available ciprofloxac in 250 mg tablet TAKE 1 TABLET BY MOUTH EVERY 12 HOURS UNTIL ALL TAKEN 12/09 completed Not Available Not Available Not Available ciprofloxac in 500 mg tablet TAKE 1 TABLET BY MOUTH TWICE DAILY FOR WHEN HAVING SYMPTOMS OF A URINARY TRACT INFECTION . 04/17 completed Not Available Not Available Not Available sulfamethox azole 800 mg-trimetho prim 160 mg tablet TAKE 1 TABLET BY MOUTH TWICE DAILY 05/30 completed Not Available Not Available Not Available aspirin 81 mg tablet,adria yed release 05/30 completed Not Available Not Available Not Available leflunomide 20 mg tablet active Not Available Not Available Not Available tramadol 50 mg tablet TAKE 1 TABLET BY MOUTH EVERY 6 HOURS NEEDED FOR PAIN 05/30 completed Not Available Not Available Not Available triamcinolo ne acetonide 0.1 % topical cream 04/11 completed Not Available Not Available Not Available glimepiride 2 mg tablet 05/31 completed Not Available Not Available Not Available levothyroxi ne 100 mcg tablet Take 1 tablet every day by oral route. active Not Available Not Available No t Available alprazolam 0.25 mg tablet 04/11 completed Not Available Not Available Not Available famotidine 20 mg tablet Take 1 tablet twice a day by oral route. active Not Available Not Available No t Available methotrexat e sodium 2.5 mg tablet 04/11 completed Not Available Not Available Not Available hydrocodone 7.5 mg-acetamin ophen 325 mg tablet 04/11 completed Not Available Not Available Not Available cephalexin 500 mg capsule TAKE 1 CAPSULE BY MOUTH EVERY 12 HOURS 04/17 completed Not Available Not Available Not Available piperacilli n-tazobacta m 4.5 gram intravenous solution 05/30 completed Not Available Not Available Not Available erythromyci n 5 mg/gram (0.5 %) eye ointment APPLY SMALL AMOUNT TO THE EYELID THREE TIMES DAILY AFTER SURGERY FOR 10 DAYS 04/17 completed Not Available Not Available Not Available ferrous sulfate 325 mg (65 mg iron) tablet Take 1 tablet every day by oral route. active Not Available Not Available No t Available metformin 1,000 mg tablet active Not Available Not Available Not Available nystatin 100,000 unit/gram topical cream APPLY TO THE AFFECTED AREA(S) BY TOPICAL ROUTE 2 TIMES PER DAY 04/11 completed Not Available Not Available Not Available lisinopril 10 mg tablet 04/11 completed Not Available Not Available Not Available glimepiride 4 mg tablet active Not Available Not Available Not Available prednisone 50 mg tablet 05/30 completed Not Available Not Available Not Available naproxen 500 mg tablet,adria yed release 04/11 completed Not Available Not Available Not Available gabapentin 300 mg capsule Take 1 capsule 3 times a day by oral route. active Not Available Not Available No t Available omeprazole 20 mg capsule,del ayed release Take 1 capsule every day by oral route. active Not Available Not Available No t Available gentamicin 0.1 % topical cream APPLY TOPICALLY EVERY DAY TO LEFT GREAT TOE WOUND 05/30 completed Not Available Not Available Not Available montelukast 10 mg tablet TAKE 1 TABLET BY MOUTH EVERY DAY active Not Available Not Available No t Available furosemide 20 mg tablet Take 1 tablet every day by oral route. active Not Available Not Available No t Available metoprolol succinate ER 25 mg tablet,exte nded release 24 hr active Not Available Not Available Not Available hydroxychlo roquine 200 mg tablet Take 1 tablet every day by oral route. active Not Available Not Available No t Available estradiol 0.01% (0.1 mg/gram) vaginal cream Insert 1 applicato rful 3 times a week by vaginal route as directed for 30 days. 04/17 completed Not Available Not Available Not Available methylpredn isolone 4 mg tablets in a dose pack 04/11 completed Not Available Not Available Not Available albuterol sulfate HFA 90 mcg/actuati on aerosol inhaler INHALE 2 PUFFS BY MOUTH EVERY 4 TO 6 HOURS NEEDED FOR SHORTNESS OF BREATH active Not Available Not Available No t Available cefdinir 300 mg capsule TAKE 1 CAPSULE BY MOUTH EVERY 12 HOURS UNTIL ALL TAKEN 04/17 completed Not Available Not Available Not Available fluticasone propionate 50 mcg/actuati on nasal spray,suspe nsion 05/30 completed Not Available Not Available Not Available naproxen 500 mg tablet 04/11 completed Not Available Not Available Not Available metoclopram samantha 10 mg tablet 04/11 completed Not Available Not Available Not Available amoxicillin 875 mg-potassiu m clavulanate 125 mg tablet TAKE 1 TABLET BY MOUTH TWICE DAILY 05/30 completed Not Available Not Available Not Available tobramycin 0.3 %-dexametha sone 0.1 % eye drops,suspe nsion SHAKE LIQUID AND INSTILL 1 DROP IN RIGHT EYE FOUR TIMES DAILY. START DROPS AFTER SURGERY 04/17 completed Not Available Not Available Not Available oxycodone 5 mg tablet 05/30 completed Not Available Not Available Not Available valsartan 40 mg tablet 04/11 completed Not Available Not Available Not Available Premarin 0.625 mg/gram vaginal cream Insert 0.5 g 3 times a week by vaginal route. 05/30 completed Not Available Not Available Not Available nitrofurant oin monohydrate /macrocryst als 100 mg capsule TAKE 1 CAPSULE BY MOUTH TWICE DAILY WHEN EXPERIENC ING SYMPTOMS OF INFECTION active Not Available Not Available No t Available duloxetine 20 mg capsule,del ayed release Take 1 capsule twice a day by oral route. active Not Available Not Available No t Available duloxetine 30 mg capsule,del ayed release 05/30 completed Not Available Not Available Not Available BD Ultra-Fine Mini Pen Needle 31 gauge x 3/16 05/30 completed Not Available Not Available Not Available Symbicort 160 mcg-4.5 mcg/actuati on HFA aerosol inhaler 04/11 completed Not Available Not Available Not Available peg 3350-electr olytes 236 gram-22.74 gram-6.74 gram-5.86 gram solution DIRECTED 05/30 completed Not Available Not Available Not Available Lantus Solostar U-100 Insulin 100 unit/mL (3 mL) subcutaneou s pen 05/30 completed Not Available Not Available Not Available Cholestyram ine Light 4 gram oral powder TAKE 4 GRAMS ONCE DAILY WITH A MEAL DIRECTED. AVOID OTHER MEDS WITHIN 1 HOUR BEFORE OR 4-6 HOURS AFTER DOSE active Not Available Not Available No t Available Humalog KwikPen (U-100) Insulin 100 unit/mL subcutaneou s 05/30 completed Not Available Not Available Not Available metformin ER 1,000 mg 24 hr tablet,exte nded release (gastric reten.) Take 1 tablet every day by oral route. active Not Available Not Available No t Available Calcium with Vitamin D 600 mg-10 mcg (400 unit) tablet Take 1 tablet twice a day by oral route. 04/11 completed Not Available Not Available Not Available Systane (PF) active Not Available Not Available Not Available Myrbetriq 25 mg tablet,exte nded release TAKE 1 TABLET DAILY 05/30 completed Not Available Not Available Not Available Bydureon 2 mg/0.65 mL subcutaneou s pen injector 04/11 completed Not Available Not Available Not Available Jardiance 10 mg tablet 04/11 completed Not Available Not Available Not Available Toujeo SoloStar U-300 Insulin 300 unit/mL (1.5 mL) subcutaneou s pen active Not Available Not Available Not Available ProAir RespiClick 90 mcg/actuati on breath activated Inhale 2 puffs every 4 hours by inhalatio n route. active Not Available Not Available No t Available Xeljanz XR 11 mg tablet,exte nded release 05/30 completed Not Available Not Available Not Available Ozempic 0.25 mg or 0.5 mg (2 mg/1.5 mL) subcutaneou s pen injector 05/30 completed Not Available Not Available Not Available Toujeo Max U-300 SoloStar 300 unit/mL (3 mL) subcutaneou s insulin pen Inject by subcutane ous route. active Not Available Not Available No t Available Xarelto 2.5 mg tablet active Not Available Not Available No t Available Ozempic 1 mg/dose (4 mg/3 mL) subcutaneou s pen injector 05/30 completed Not Available Not Available Not Available Kerendia 10 mg tablet TAKE 1 TABLET BY MOUTH EVERY DAY 05/31 completed Not Available Not Available Not Available Lagevrio 200 mg capsule (EUA) TAKE 4 CAPSULES BY MOUTH EVERY 12 HOURS FOR 5 DAYS 04/17 completed Not Available Not Available Not Available Vitals Date Recorded Body height Body mass index (BMI) Body weight Systolic blood pressure Diastolic blood pressure Provider Name and Address Organization Details Last Updated DateTime 12/05/2019 160.02 cm 40.4 kg/m2 186009.0 6 g 120 mm[Hg] 68 mm[Hg] Pascale Sherwood [facility] 0 12:33:59 Date Recorded Body height Body mass index (BMI) Body weight Heart rate Body temperature Oxygen saturation Oxygen saturation in Arterial blood by Pulse oximetry Systolic blood pressure Diastolic blood pressure Provider Name and Address Organization Details Last Updated DateTime 3 160.02 cm 40.1 kg/m2 624940. 28 g 84 /min 98.9 [degF] 94 % 94 % 116 mm[Hg] 70 mm[Hg] Pascale Beltran MA [facility] 3 08:44:28 Date Recorded Body height Body mass index (BMI) Body weight Heart rate Oxygen saturation Oxygen saturation in Arterial blood by Pulse oximetry Systolic blood pressure Diastolic blood pressure Provider Name and Address Organization Details Last Updated DateTime 3 160.02 cm 40.2 kg/m2 270461. 47 g 92 /min 94 % 94 % 128 mm[Hg] 70 mm[Hg] La Monterroso [facility] 3 14:37:58 Date Recorded Body height Body mass index (BMI) Body weight Body temperature Oxygen saturation Oxygen saturation in Arterial blood by Pulse oximetry Heart rate Systolic blood pressure Diastolic blood pressure Provider Name and Address Organization Details Last Updated DateTime 3 160.02 cm 40.5 kg/m2 592743. 5 g 98.5 [degF] 95 % 95 % 83 /min 126 mm[Hg] 72 mm[Hg] Elayneciara Fernanedz [place] - [facility] 3 14:30:21 Date Recorded Body height Body mass index (BMI) Body weight Body temperature Oxygen saturation Oxygen saturation in Arterial blood by Pulse oximetry Heart rate Systolic blood pressure Diastolic blood pressure Provider Name and Address Organization Details Last Updated DateTime 4 160.02 cm 37.4 kg/m2 50400.4 2 g 98.5 [degF] 98 % 98 % 100 /min 136 mm[Hg] 70 mm[Hg] Elayne Fernandez [place] - [facility] 4 09:16:39 Social History Question Answer Notes LastModified by Organizat ion Details LastModified Time Tobacco Smoking Status Former Smoker 04/11/2019 pt states stopped smoking 1997 Rosario Corley [facility], [facility] 04/11/2019 15:28:20 Do You Have An Advance Directive? No Information not available 04/11/2019 What Is Your Level Of Alcohol Consumption? None Information not available 04/11/2019 Is Blood Transfusion Acceptable In An Emergency? Yes Information not available 04/11/2019 What Is Your Level Of Caffeine Consumption? Moderate Soda Coffee Information not available 04/11/2019 How Much Tobacco Do You Chew? None Information not available 04/11/2019 Are You Currently Employed? No Retired Information not available 04/11/2019 Which Illicit Or Recreational Drugs Have You Used? None Information not available 04/11/2019 Do You Or Have You Ever Used E-cigarettes Or Vape? Never Used Electronic Cigarettes Information not available 04/11/2019 What Is Your Occupation? Retired Information not available 04/11/2019 Live Alone Or With Others? With Others Information not available 04/11/2019 What Was The Date Of Your Most Recent Tobacco Screening? 04/17/2023 [email or web address] Information not available 04/17/2023 How Many Children Do You Have? 4 Information not available 04/11/2019 Performs Monthly Self-breast Exam? Yes Information not available 04/11/2019 What Is Your Relationship Status? Information not available 04/11/2019 Seat Belts Used Routinely Yes Information not available 04/11/2019 Are You Sexually Active? No Information not available 04/11/2019 Do You Or Have You Ever Used Smokeless Tobacco? Never Used Smokeless Tobacco Information not available 04/11/2019 How Much Tobacco Do You Smoke? No [email or web address] Information not available 04/11/2019 Do You Use Sunscreen Routinely? No Information not available 04/11/2019 On What Date Was Tobacco Cessation Counseling Provided? 12/05/2019 [email or web address] Information not available 12/05/2019 Do You Or Have You Ever Used Any Other Forms Of Tobacco Or Nicotine? No [email or web address] Information not available 05/31/2022 Sex: Unknown Functional Status Question Answer Note LastModified by Organization D etails LastModified Time What is your exercise level? None Information not available 04/11/2019 Mental Status None recorded. Family History Relationship Description Onset Age of this Age Resolved Age Notes LastModified by Organization Details LastModified Time Father Malignant tumor of lung 71 [email or web address] Not available 06/11 10:29:37 Mother Diabetes mellitus 68 [email or web address] Not available 06/11 10:29:37 Medical History Condition Response Coronary Artery Disease N Blood Diseases N Kidney Cyst N Hyperthyroidism N Blood Transfusion N MRSA N Blood disorders N Emphysema N COPD N Blood Clots N Depression N Pneumonia N Peripheral Arterial Disease N Premature N Edema N TIA N Headaches/Migraines N Anxiety Disorder N Obesity N Infertility N Polyps N Acid Reflux (GERD) N Hematuria N Stroke N Neck Injury N Polio N Hospital Admission other than N Neurologic Disorder N Other Sleep Disorders N Rheumatoid Arthritis N Abdominal Aortic Aneurysm Repair N Kidney Disease N Heart Conditions N Heart Disease/Heart Problems N Hospitalizations N Brain Tumors N Acne N Eating Disorder N Skin Problems N Constipation N Meningitis N Tuberculosis N Cerebral Palsy N Myocardial Infarction N Asthma N Substance Abuse N Peripheral Vascular Disease N Vertigo N Sleep Disorder N Cirrhosis N Pulmonary Embolism N Chicken Pox N Flomax Use Past or Present N Hematologic Disease N Anxiety/Depression N Thyroid Disease N Colon Cancer N Glaucoma N Lung Disease N Developmental or Behavioral Disorders N Bipolar N Pacemaker N Diverticulitis/Diverticulosis N Anesthesia Complications N Orthopedic Problems N Orthotics N Head Injury/Concussion N Congenital Anomalies N Hawk Bite N Chronic Kidney Disease N Endometriosis N Liver Disease N Dialysis N Schizophrenia N Speech Delay N Chronic Obstructive Pulmonary Disease N Parkinson's Disease N Thyroid Problems N GI Problems N Developmental Delay N Anemia N Immune System Disorder N Multiple Sclerosis N Colon Polyps N Heart Attack ([place]) N Diabetes N Cardiomyopathy N Blood Transfusions N Heart Problems/Murmur N Eye Trauma N Congestive Heart Failure (CHF) N Valvular Heart Disease N Hyperlipidemia N Double Vision N Abuse/Domestic Violence N Hepatitis B N Lupus Y Epilepsy/Seizures N Reflux/GERD N Aneurysm N Bronchitis N Heart Disease N Hypertension N Pre-Eclampsia N Heart Failure N Other N Gout N High Blood Pressure Y Atrial Fibrillation N Kidney Stones N Head Trauma/Injury N Congenital Heart Disease N Spine Problems N Gastrointestinal Disease N Lung Mass N Sinusitis N Obstructive Sleep Apnea N Muscle, Joint, or Bone Problems N Autoimmune disease N Vision or Eye Problems N Arthritis N Blood Clot N Cancer N Seasonal allergies N Leg or Foot Ulcers N Raynaud's Disease N Aortic Aneurysm N Arrhythmia N Headaches N Heart Problems N Ambloypia N Ear or Hearing Problems N Hyperparathyroidism N Migraines N Artificial Joints N Kidney or Bladder Problems N NSAID Use N Encephalitis N PTSD N Ulcers N Prostate Hypertrophy N Bleeding Disorder N AIDS/HIV N Urinary Tract Infection N Back Problems N Allergies N Atrial Flutter N GERD/Reflux N Hepatitis N Autism Spectrum Disorder (ASD) N Breast Cancer N Hernia N Hypothyroidism N Breast Problem N Genitourinary Disease N Deep Vein Thrombosis N Varicose Veins N Cystic Fibrosis N Hearing Loss N Developmental Problems N Carotid Disease N Vitamin D Deficiency N ADHD N Bladder or Kidney Problems N High Cholesterol Y [place] N Valvular Abnormalities N Psychiatric/Mental Health Condition N Organ Transplant N Foot Deformity N Allergies/Hayfever N Dyslipidemia N Hyponatremia N Diabetic Eye Disease N Osteoporosis/Osteopenia N Back Pain N Proteinuria N Mental Illness N Neurological Problems N Ovarian Cancer N Bedwetting N Seizures/Epilepsy N Kidney Failure N Ocular trauma N Dementia N Diverticulitis N Sleep Apnea N Mental Problems N Warfarin Management N Osteoporosis N Gynecological History Statement/Question Response Abnormal Pap Yes On BCP's at Conception? N STIs/STDs N HPV Vaccine N Most Recent Mammogram 05/01/2019 Age at Menarche 13 Current Control Method None Age at First Child 22 Sexually Active? N Menses Monthly N Date of Last Pap Smear 06/05/2017 Sexual Problems? N LMP Unknown Desired Control Method N/A Obstetrics History GPAL:G 4 P 4 0 0 4 Type Value Multiple Births 0 Full Term 4 Induced 0 Spontaneous 0 Premature 0 Living 4 Ectopics 0 Total 4 Immunizations Vaccine Type Date Status Note Provider Nam e and Address Organization Details Recorded Time COVID-19, mRNA, LNP-S, PF, 30 mcg/0.3 mL dose 1 completed Yesica Subramanian [place], [place] [facility] 09/16/2020 10:25:57 COVID-19, mRNA, LNP-S, PF, 30 mcg/0.3 mL dose 1 completed [place]ica Subram[place] [facility] 09/16/2020 10:26:18 COVID-19, mRNA, LNP-S, PF, 30 mcg/0.3 mL dose, shaniqua-sucrose 2 completed Elayne Fernandez, [place] [facility] 12/09/2022 14:22:16 pneumococcal polysaccharide PPV23 0 completed Elayne Fernandez[place] [facility] 12/09/2022 14:22:16 Tdap 2 completed Elayne Fernandez[place] [facility] 12/09/2022 14:22:16 Influenza, high-dose, trivalent, PF 3 completed Elayne Fernandez, [place] [facility] 12/09/2022 14:22:16 Influenza, high-dose, trivalent, PF 0 completed Elayne Fernandez, [place] [facility] 12/09/2022 14:22:16 Influenza, high-dose, trivalent, PF 1 completed Elayne Fernandez[place] [facility] 12/09/2022 14:22:16 Td (adult) 7 completed Elayne Fernandez, [place] [facility] 12/09/2022 14:22:16 Influenza, split virus, quadrivalent, PF 8 completed Elayne Fernandez, [place] [facility] 12/09/2022 14:22:16 influenza, unspecified formulation 3 completed Elayne Fernandez MA lio, [facility] 12/09/2022 14:27:44 Influenza, split virus, quadrivalent, preservative 0 completed Pascale Sherwood MA lio, [facility] 01/20/2020 17:59:24 Past Encounters Encounter ID Performer Location Encounter Start Date Encounter Closed Date Diagnosis/Indication Diagnosis SNOMED-CT Code Diagnosis ICD10 Code Diagnosis Note [id number] Eduardo Danielson ([facility]) [address] [place] [address] [phone] 06/09/2014 10:41:57 06/09/2014 13:37:25 Gynecologic examination [id number] Screening mammography [id number] MIGUEL ANGEL Blackmon ([facility]) [address] [place] [address] [id number] 06/05/2017 14:50:45 06/05/2017 16:13:49 Gynecologic examination 20760119 Z01.419 Z11.51 Screening mammography 24 778963 Z12.31 Exposure t o sexually transmissible disorder 390983737 Z20.2 [id number] Eduardo Danielson ([facility]) [address] [place] [address] [id number] 0 04/11/2019 14:49:28 04/15/2019 10:24:43 Screening mammography 91972600 Z12.31 Urinary tr act infectious disease 30823340 N39.0 Morbid obesity 771166588 Z68.41 Dysfunctio n of urinary bladder 04451308 R39.89 OAB vs stress/urg e incontinen ce Menopausal syndrome 1237 67925 N95.9 [id number] Eduardo Danielson ([facility]) [address] [place] [address] [id number] 0 12/05/2019 11:39:11 12/09/2019 12:25:36 Recurrent urinary tract infection 033636646 N39.0 Administra tion of influenza vaccine 70239451 Z23 Atrophic vaginitis 58856 000 N95.2 Exposure t o sexually transmissible disorder 450772885 Z20.2 [id number] FRANCISCO J SERRANO (Adult Med) [address] [place], [place] [phone] 0 05/31/2022 08:11:20 06/01/2022 09:41:02 Recurrent urinary tract infection 231900467 N39.0 Following with Urology for recurrent UTIs, recently started on cephalexin x 7 days 1 month ago. States her symptoms are still present, symptoms include vaginal pruritus and irritation . has hx of chronic urinary frequency and urgency. Denies dysuria and blood in urine.- urine dipstick showed trace blood, urine cultre sent- vaginal irritation may be more due to atrophic vaginitis rather than UTI, starting tx today Menopause present 655708 006 N95.1 WEnt through menopause around age 52, denies major issues with hot flashes, vaginal dryness (however no longer sexually active), and mood changes- discussed menopause diagnosis- likely atrophic vaginitis causing her vaginal symptoms Screening for malignant neoplasm of breast [id number] Z12.39 Last mammogram in 2021, [facility] to request records- Mammogram screening this year based on records Screening for malignant neoplasm of cervix [id number] Z12.4 Last pap smear in 2017 and normal, pap smear prior to that was 05/2014 and also normal- no further pap smears needed at this time since prior pap smears normal over age of 65 Morbid obesity [id number] E66.01 Advised decreased portion sizes, good food choices, limited eating out or fast food and eliminate soda and juice from diet. Advised physical activity daily and offered encouragem ent to continue with positive changes made so far. Depression screening 171 474502 Z13.31 PHQ 2/9 was negative in office today (0 out of 27) Increased frequency of urination [id number] R35.0 Patient reporting x3-4 episodes of incontinen ce daily. Admits to chronic urinary frequency, urgency, stress incontinen ce and urge incontinen ce. Wears diapers daily- vaginal swab completed- provided informatio n on mixed urinary incontinen ce- consider pelvic floor PT in the future Ex-smoker 1652519 Z87.89 1 Prior history of smoking- keep up good work, continue to avoid Atrophic vaginitis 12655 000 N95.2 Presenting today with vaginal pruritus, irritation , and dryness. Atropy seen on exam- Start estradiol 0.01 % three time a week for 30 days- f/u in 3 months to check for improvemen t Non-neoplastic nevus 195 417175 I78.1 2 small skin nevi present on the left side of mons pubis, she is interested in getting them removed- plan for longer visit at next visit and will complete removal [id number] FRANCISCO J SERRANO (Adult Med) [address] [place] [address] 09/09/2022 14:06:24 09/12/2022 15:04:12 Non-neoplastic nevus [id number] I78.1 3 small skin nevi present on the left side of mons pubis, she is interested in getting them removed#1: larger lesion more superior on the mons pubis#2: two smaller lesions more inferior on mons pubis- tolerated procedure well and bleeding controlled with pressure and silver nitrate Atrophic vaginitis 96267 000 N95.2 Originally presented with vaginal pruritus, irritation , and dryness. Atrophy seen on exam- c/w estradiol 0.01 % three time a week- f/u in 3 months to check for improvemen t Menopause present 026704 006 N95.1 Went through menopause around age 52, denies major issues with hot flashes, vaginal dryness (however no longer sexually active), and mood changes- discussed menopause diagnosis- likely atrophic vaginitis causing her vaginal symptoms Screening for malignant neoplasm of breast [id number] Z12.39 Last mammogram in 2021, ordered by PCP in [facility]- Call [facility] to request records- Mammogram screening this year based on records Screening for malignant neoplasm of cervix [id number] Z12.4 Last pap smear in 2018 and normal, pap smear prior to that was 05/2014 and also normal- no further pap smears needed at this time since prior pap smears normal over age of 65 Ex-smoker 2520167 Z87.89 1 Prior history of smoking- keep up good work, continue to avoid Depression screening 171 231425 Z13.31 PHQ 2/9 was negative in office today (0 out of 27) Morbid obesity 354643438 E66.01 Advised decreased portion sizes, good food choices, limited eating out or fast food and eliminate soda and juice from diet. Advised physical activity daily and offered encouragem ent to continue with positive changes made so far. Pain in throat [id number] R07.0 At risk for yeast infection 2/2 DM, erythemato us on exam. Screening for malignant neoplasm of colon 708762491 Z12.11 Notes colonoscop y completed at [facility] in the last few years, will request those records [id number] FRANCISCO J SERRANO (Adult Med) [address] [place] [id number] 12/09/2022 14:13:43 12/09/2022 15:00:50 Atrophic vaginitis 63473091 N95.2 Originally presented with vaginal pruritus, irritation , and dryness. Atrophy seen on examDoing well today since starting topical estrogen, notes her vaginal complaints have since resolved. Also has a recent history of frequent UTIs but notes she has not had one for the last few months which is good for her.- c/w estradiol 0.01 % three time a week, can decrease to twice weekly or once weekly as tolerated Menopause present 297147 006 N95.1 Went through menopause around age 52, denies major issues with hot flashes, vaginal dryness (however no longer sexually active), and mood changes- discussed menopause diagnosis- likely atrophic vaginitis causing her vaginal symptoms- discuss DEXA at next visit Screening for malignant neoplasm of cervix 316685784 Z12.4 Last pap smear in 2018 and normal, pap smear prior to that was 05/2014 and also normal- no further pap smears needed at this time since prior pap smears normal over age of 65 Ex-smoker 5971532 Z87.89 1 Prior history of smoking- keep up good work, continue to avoid Morbid obesity [id number] E66.01 Advised decreased portion sizes, good food choices, limited eating out or fast food and eliminate soda and juice from diet. Advised physical activity daily and offered encouragem ent to continue with positive changes made so far. Genital warts 271165027 A63.0 Biopsy results from recent skin lesion removal revealed genital warts- discussed diagnosis with patient today, has not been sexually active for years and no additional lesions present in the past or currently [id number] TIMOTEO PABON (Adult Med) [address] [place] [phone] 04/17/2023 08:58:08 04/19/2023 11:56:47 Acute upper respiratory infection 69070165 J06.9 Gargle with warm salt water once an hour to help reduce swelling and relieve discomfort . Use 1 teaspoon of salt mixed in 1 cup of warm water. Take an over-the-c ounter pain medicine, such as acetaminop hen (Tylenol), ibuprofen (Advil, Motrin), or naproxen (Aleve). Read and follow all instructio ns on the label. Be careful when taking over-the-c ounter cold or flu medicines and Tylenol at the same time. Many of these medicines have acetaminop hen, which is Tylenol. Read the labels to make sure that you are not taking more than the recommende d dose. Too much acetaminop hen (Tylenol) can be harmful. Drink plenty of fluids. Fluids may help soothe an irritated throat. Hot fluids, such as tea or soup, may help decrease throat pain. Use over-the-c ounter throat lozenges to soothe pain. Regular cough drops or hard candy may also help. These should not be given to young children because of the risk of choking. Do not smoke or allow others to smoke around you. If you need help quitting, talk to your doctor about stop-smoki ng programs and medicines. These can increase your chances of quitting for good. Use a vaporizer or humidifier to add moisture to your bedroom. Follow the directions for cleaning the machine. Depression screening 171 397542 Z13.31 PHQ9- {{Negative * Positive Mild Mode rate Sever e}} (0 out of 27) Mental hea lth screening 225983526 Z13.39 GAD7- {{Negative * Positive Mild Mode rate Sever e}} (1 out of 21) Body mass index 30+ - obesity 953833605 Z68.37 BMI 37.4 Health Concerns Section Related Observation LastModified by Organization Detai ls LastModified Time None Recorded Concern Status LastModified by Organization Details LastModified Time None Recorded Advance Directives Directive N: Payers Encounter Date Sequence Insurance Name Policy Number Policy Puga Covered Member ID Puga Member ID Guarantor Name 12/05/2019 1 [place] [id number] Aleyda Dobbs [id number] Aleyda [place] 12/05/2019 2 [place] Aleyda Dobbs [id number] Aleyda [place] 05/31/2022 1 [place] [id number] Aleyda [place]andalia [id number] Aleyda Dilia 05/31/2022 2 [place] Aleyda L Dilia [id number] Aleyda Dilia 09/09/2022 1 [place] [id number] Aleyda Dilia [id number] Aleyda Dilia 09/09/2022 2 [place] Aleyda L Dilia [id number] Aleyda [place] 12/09/2022 1 [place] [id number] Aleyda [place] [id number] Aleyda [place] 12/09/2022 2 [place] Aleyda L Dilia [id number] Aleyda [place] 04/17/2023 1 [place] [id number] Aleyda [place]ia [id number] Aleyda Dilia 04/17/2023 2 [place] Aleyda L Dilia [id number] Aleyda [place] Notes Date Note Type Note Provider Name and Address Organization Details Recorded Time 12/05/2019 text/html Vaginal/Vulvar ProblemReported bypatient.Associated Symptoms:no vaginal itching; no vaginal irritation; no vaginal pain; no vulvar itching/irritation; no vulvar swelling/erythema; no vulvar pain; no vulvar lesions; no pelvic pain; no dyspareunia; no dyruria; no fever; no abdominal pain 69 yo F presenting for vulvar itching x2-3 weeks. Her spray gun repairer helper discovered a UTI on routine UA and prescribed an antibiotic. She completed the course but the UTI persisted. The spray gun repairer helper then referred her to a urologist. The urologist prescribed Macrobid. She just completed the course of Macrobid for 2 weeks. Today on UA she still has a UTI, but her symptoms have resolved. Denies fever, chills, abnormal vaginal discharge, bleeding, dysuria, hematuria, N/V/D/C. Eduardo vaca [place] - [facility] 12/05/2019 16:25:15 05/31/2022 text/html Aleyda Dobbs is a 71 y/o female with PMHx of DM (last A1c 8.1%) c/b left great toe amputation, rheumatoid arthritis, Sjogren's syndrome, LEXII, hyperlipidemia, hypertension, hypothyroidism, and recurrent UTIs reporting to clinic for [facility] exam. Patient notes a history of recurrent UTIs with the last being in the beginning of April. She does follow a Urologist at [facility]? and was prescribed Keflex. Patient feels like the symptoms have not resolved as she continues to have pruritus and vaginal irritation. Denies any dysuria and hematuria. Last mammogram was in 2021 in [place] by her PCP. Last pap smear in 2014 and 2017 with no concerning findings. Denies vaginal discharge, abnormal vaginal bleeding, breast pain, and nipple discharge. FRANCISCO J SERRANO Attn: [address]ing[address] [place], [address], [facility] 05/31/2022 14:39:58 09/09/2022 text/html 72yo F presentin g for skin lesion removal, discussed at previous visit. Also complaining of chronic dry throat that has felt mildly painful. No recent illness or current viral symptoms. History of DM and poor fitting dentures. No other complaints. FRANCISCO J SERRANO Attn: Accounting[address] [place], [address], [facility] 09/09/2022 16:30:24 12/09/2022 text/html 72yo F presentin g today for atrophic vaginitis f/u. Doing well today since starting topical estrogen, notes her vaginal complaints have since resolved. Also has a recent history of frequent UTIs but notes she has not had one for the last few months which is good for her. Denies fever, chills, nausea, vomiting, pelvic pain, vaginal discharge, vaginal lesions, dysuria, urinary frequency, and hematuria. FRANCISCO J SERRANO Attn: Accounting[address] [place], [address], [facility] 12/11/2022 12:38:13 04/17/2023 text/html 72-year-old fema le here to establish care. Patient has h/o left great toe amputation, rheumatoid arthritis, Sjogren's syndrome, LEXII, hyperlipidemia, hypertension, hypothyroidism. Patient sees Endocrinology, last A1C 7.7% on 03/09/2023.patient has been sick for about 1 week. Feels like she has something in the back of her throat. Has been coughing but can't seem to get it out. She has taken cough drops but no medication for it. Has been treating with warm/hot fluids. Patient states that she is having some SOB and has been using her inhaler for frequently. Pt is also c/o diarrhea. Patient denies fever, N/V. NICHOLAS AVILES PA-C Attn: [address] [place], [address], [facility] 04/17/2023 09:38:38 OBGyn Episode No OBEpisode recorded.
--- OUTSIDE RECORDS SUMMARY | 2024-06-04 00:47 | XMS_ITS | Encounter Summary ---
Author Organization [facility] Address 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 Gender Identity Not on file Sexual Orientation Not on file documented as of this encounter Plan of Treatment Upcoming Encounters Date Type Department Care Team (Late st Contact Info) Description 07/31/2024 9:30 AM CDT Office Visit [facility] Oncology and Hematology - Kevin [address] [facility] [address] [place] [address] Ray Richards MD [address] [facility] [address] [place] [address] documented as of this encounter Visit Diagnoses Diagnosis Unspecified hearing loss documented in this encounter Care Teams Chemical Waste Management Technician Relationship Specialty Start Date End Date Charles Armendariz DO [address] [facility] [address] [place] [address] PCP - General Internal Medicine 11/04/22 documented as of this encounter
--- OUTSIDE RECORDS SUMMARY | 2024-06-04 00:47 | XMS_ITS | Encounter Summary ---
Author Organization [facility] Address 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 Gender Identity Not on file Sexual Orientation Not on file documented as of this encounter Plan of Treatment Upcoming Encounters Date Type Department Care Team (Late st Contact Info) Description 07/31/2024 9:30 AM CDT Office Visit [facility] Oncology and Hematology - Kevin [address] [facility] [address] [place] [address] Ray Richards MD [address] [place] [address] documented as of this encounter Visit Diagnoses Diagnosis Unspecified hearing loss documented in this encounter Care Teams Burn Out Scarfing Operator Relationship Specialty Start Date End Date Charles Armendariz DO [address] [facility] [address] [place] [address] PCP - General Internal Medicine 11/04/22 documented as of this encounter
--- OUTSIDE RECORDS SUMMARY | 2024-06-04 00:47 | XMS_ITS | Encounter Summary ---
Author Organization [facility] Address [address] [place] [address] Phone Care Team Providers Care Felt Finisher Name Role Phone Charles Armendariz DO Primary Care Provider [phone] David Vanegas MD Unavailable [phone] Encounter Details Date Type Department Care [...] on file Legal Sex Female 12:14 AM PHOTONICS ENGINEERING TECHNOLOGIST Gender Identity Not on file Sexual Orientation [...] on filedocumented in this encounter Care Teams Felt Finisher Relationship Specialty Start Date End Date Charles Armendariz DO PCP - General 05/27/16 David Vanegas MD [address] [place] [address] Consulting Physician Cardiology 07/20/18 documented as of this encounter
--- NOTE | 2024-06-04 14:23 | P.HP_ITS ---
History of Present Illness History of Present Illness Consent: Risks, benefits, and alternatives have been discussed and questions answered. Patient agrees to proceed with procedure. Chief complaint: impingement syndrome of left shoulder, shoulder pa Narrative: Aleyda Dobbs is a 73 year old female with chronic, recalcitrant and disabling left shoulder pain secondary to degenerative osteoarthritis with failure to respond to aggressive conservative measures including PT, oral and topical analgesics, opioid and nonopioid analgesics, rest, time and activity/behavioral modification over the past 1-2 years who presents for diagnostic/prognostic articular branch blocks of the left shoulder under fluoroscopic guidance and with contrast control. Review of Systems Review of Systems: Patient denies any new infectious, allergic, cardiopulmonary, neurologic or constitutional symptoms or changes in activity tolerance or exercise capacity including new or progressive SOB/KELLER, peripheral edema, productive cough, dysuria, nausea/vomiting, diarrhea, weight change, fevers/chills/night sweats, new or progressive neurologic deficit, cognitive or mood changes since last seen, except as documented in the HPI. All systems reviewed & are unremarkable except as noted in HPI and below PMFSH Past Medical History Medical History Elevated troponin Elevated troponin Nausea & vomiting Diarrhea Diarrhea Urinary tract infection TERESA (acute kidney injury) UTI symptoms COVID-19 Cellulitis of great toe of right foot Cellulitis of great toe, left Person under investigation for COVID-19 COVID Open wound of left great toe Muscle spasm Muscle spasms of both lower extremities Open wound of right great toe Skin ulcer of left great toe with necrosis of muscle SOB (shortness of breath) Acute hypoxic respiratory failure Fever and chills Strain of rotator cuff of left shoulder 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 Lupus Fibromyalgia Sepsis BMI greater than 40 Right knee DJD Left knee DJD Rotator cuff tendonitis Pre-op evaluation Abdominal pain Arthritis of knee, degenerative Thrombocytopenia Polyneuropathy Type 2 diabetes mellitus with complication Sore throat Right wrist pain Rib pain on right side Rheumatoid arthritis of unspecified site with involvement of other organs and systems 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 Pes planus of both feet Pain in left hand Other chronic pain Numbness in both hands Non-pressure chronic ulcer of right heel and midfoot with bone involvement without evidence of necrosis Non-pressure chronic ulcer of other part of unspecified foot limited to breakdown of skin terminal supervisor (current) use of insulin Left wrist pain Hives Flat foot [pes planus] (acquired), left foot Essential hypertension Ear ache 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 2 diabetes mellitus Chronic abdominal pain Acute pain of both knees Acute pain of both hips Colon cancer screening Gastroparesis Chronic diarrhea Microscopic colitis Amputation toe Peripheral arterial disease Posterior tibial tendon dysfunction, left Charcot ankle Diarrhea Obesity Left shoulder pain History of AR (myocardial infarction) Carpal tunnel syndrome, bilateral Anemia Polyneuropathy Hypertension Cellulitis of right foot Chicken pox Hernia UTI (urinary tract infection) Heartburn Pneumonia Chronic pain Type 2 diabetes mellitus Hypothyroidism Rheumatoid arthritis Surgical History Surgical History History of hernia repair History of carpal tunnel release Amputation of left great toe Hx of cholecystectomy H/O foot surgery Poor historian- potential left posterior tibial tendon reconstruction Right foot charcot history? with surgery. Family History Family History Father Hyperlipidemia Lung cancer Diabetes mellitus Mother Diabetes mellitus Other Family history of allergic disorder Hypertension Social History Social History Social History: Patient quit tobacco in 1997 after smoking a pack a day for about 30 years. She denies drug use. She occasionally drinks alcohol. Still lives at home with her and brother. She is a full code. She nominated her daughter Elisha to be the individual make medical decisions for her if she is unable. Smoking packs per day: 1 Smoking cigarettes per day: 20.0 Years smoked: 29 Smoking pack-years: 29.00 Smoking status: Former smoker Tobacco type: cigarettes Smoking end date: 02/27/97 Alcohol intake: never Alcohol use details: occasionally Substance use: never Substance use type: does not use Do You Feel Safe in your Home?: Yes Lack of Transportation: No Lack of Food: Never True Current Housing: I Have Housing Concerned About Future Housing: No Difficulty Paying Gas/Electric Bills: No Difficulty Paying for Meds: No Currently Unemployed: No Education: High School Diploma/GED Difficulty w/ Childcare or Family Care: No Living arrangements: with family Additional living arrangements comments: Gender identity (if verbalized by the patient): Female Spiritual care concerns: No Meds Home Medications and Allergies Home Medications ?Medication ?Instructions ?Recorded ?Confirmed ?Type cholecalciferol (vitamin D3) 125 5,000 unit PO DAILY 01/02/19 05/17/24 History mcg (5,000 unit) tablet multivitamin 1 tablet PO DAILY 01/02/19 05/17/24 History metoprolol succinate 25 mg 25 mg PO DAILY #90 tabs 05/14/19 05/17/24 Rx tablet,extended release 24 hr metformin 1,000 mg tablet 1,000 mg PO BID #180 tabs 04/14/20 05/17/24 Rx hydroxychloroquine 200 mg tablet 200 mg PO BID 05/06/20 05/17/24 History (Plaquenil) atorvastatin 40 mg tablet 40 mg PO HS 06/18/20 05/17/24 History calcium carbonate 1,200 mg PO DAILY 12/01/21 05/17/24 History ferrous sulfate 325 mg (65 mg 325 mg PO BID 12/01/21 05/17/24 History iron) tablet furosemide 20 mg tablet 20 mg PO DAILY 09/20/23 05/17/24 History esomeprazole magnesium 20 mg 20 mg PO DAILY 10/17/23 05/17/24 History capsule,delayed release (Nexium 24HR) fluticasone propionate 50 1 - 2 spray intranasal BID allergy 10/17/23 05/17/24 History mcg/actuation nasal symptoms spray,suspension (Allergy Relief (fluticasone)) glimepiride 4 mg tablet 4 mg PO DAILY 10/17/23 05/17/24 History insulin glargine U-300 conc 300 55 unit subcut HS 10/17/23 05/17/24 History unit/mL (1.5 mL) subcutaneous pen (Touelise SoloStar U-300 Insulin) omega-3 1,050 [id number] 1 cap PO BID 10/17/23 05/17/24 History oil 1,200 mg capsule albuterol sulfate 90 mcg/actuation 2 puff inhalation Q4-6H PRN 11/29/23 05/17/24 Rx aerosol inhaler shortness of breath #18 grams magnesium oxide 400 mg (241.3 mg 400 mg PO DAILY 12/12/23 05/17/24 History magnesium) tablet isoniazid 300 mg tablet 300 mg PO DAILY 01/08/24 05/17/24 History levothyroxine 100 mcg tablet 100 mcg PO DAILY #90 tabs 01/16/24 05/17/24 Rx (Synthroid) duloxetine 20 mg capsule,delayed 20 mg PO DAILY #90 caps 01/26/24 05/17/24 Rx release gabapentin 300 mg capsule 300 mg PO BID #180 caps 03/19/24 05/17/24 Rx tramadol 50 mg tablet 50 mg PO Q8H PRN pain #20 tabs 05/01/24 05/17/24 Rx aspirin 81 mg chewable tablet 81 mg PO DAILY 05/28/24 05/28/24 History (Aspirin Childrens) Allergies Allergy/AdvReac Type Severity Reaction Status Date / Time daptomycin Allergy Intermediate Hives Verified 05/28/24 08:31 lisinopril Allergy Intermediate Cough Verified 05/28/24 08:31 trimethoprim Allergy Intermediate Itching Verified 05/28/24 08:31 valsartan Allergy Intermediate Hives Verified 05/28/24 08:31 vancomycin Allergy Intermediate Hives Verified 05/28/24 08:31 povidone-iodine (From Allergy Mild Hives Verified 05/28/24 08:31 Betadine) sulfadimethoxine AdvReac Intermediate Vomiting Verified 05/28/24 08:31 Exam Narrative: The patient's physical exam is essentially unchanged from prior examination on 04/01/24. Specifically, patient demonstrates normal lung capacity, tidal volume and respiratory rate without wheezes, crackles, rales or rubs. Heart rate and rhythm are regular without murmurs, gallops or rubs. No JVD. Pulses 2+ globally without increasing peripheral edema. AAOx3 with no evidence of confusion, intoxication or altered mental state, NC/AT without acute distress or altered consciousness. Speech, cognition, mood, insight and judgment at baseline and within normal limits. Assessment and Plan Assessment and plan (1) Left shoulder pain: Qualifiers: Chronicity: acute Qualified Code(s): M25.512 - Pain in left shoulder Code(s): M25.512 - Pain in left shoulder Status: Acute Assessment and Plan: proceed as planned with diagnostic/prognostic articular branch blocks of the left shoulder under fluoroscopic guidance and with contrast control. (2) Osteoarthritis of left shoulder: Code(s): M19.012 - Primary osteoarthritis, left shoulder Status: Acute
--- NOTE | 2024-06-04 14:27 | WPDHPUPDATE1 ---
History and Physical Update Update Date/Time: 06/04/24 14:27 History and Physical has been reviewed, including an updated exam of the patient. There are NO changes in the patient's condition. Risks, benefits, and alternatives have been discussed and questions answered. Patient agrees to proceed with procedure.
--- NOTE | 2024-06-04 14:28 | P.OP_ITS ---
Procedure Note - Detailed Date of Procedure 06/04/24 Pre-op Diagnosis impingement syndrome of left shoulder, shoulder pa Post-op Diagnosis Same Procedure Performed Diagnostic and Prognostic Blockade of the Left Suprascapular, Axillary, Lateral Pectoral and Superior Subscapularis Peripheral Sensory Nerves under Fluoroscopic Guidance (4 nerves blocked). Surgeon Claude Briggs MD Anesthesia Local Description of Procedure INFORMED CONSENT: Risks, benefits and alternatives to the procedure were disc ussed in detail with the patient who expressed explicit understanding and consent to proceed. Patient was informed verbally and in written form regarding the risks associated with the procedure including the low risk of serious local or systemic infection with need for additional surgical intervention, bleeding/bruising, allergic reaction, side-effects or toxicity from injectable medications, nerve injury, paralysis/weakness, procedural site pain or discomfort, worsening pain and/or mobility, failure to treat pain, disfigurement, seizure, arrhythmia, coma and/or . The patient expressed ex plicit understanding and consent to proceed. All materials required for the procedure were available prior to procedure start. Site and side were marked prior to procedure and verbally confirmed with the patient. PROCEDURE IN DETAIL: The patient was brought to the procedural suite and placed in the prone position with the arm in the neutral, adducted position. Patient was made comfortable with use of pillows under the head, chest, hips and ankles. Skin overlying the posterior, medial and lateral surface of the shoulder joint on the left side was prepared broadly with ChloraPrep applicator and draped in a sterile manner. Aseptic technique was utilized throughout. The shoulder joint of interest was visualized in the AP view with slight caudal tilt and ipsilateral oblique angulation to optimize view of the glenohumeral joint. Local anesthesia was established by infiltration with approximately 3 mL of 2% lidocaine via a 1- 1/2 inch 27-gauge needle at the skin and soft tissues overlying each intended injection site. A 25-gauge 3.5 inch quincke spinal needle was advanced until the needle tip contacted periosteum at the upper 1/3 of the glenoid fossa medial to the joint space to approximate the position of the sensory branches of the suprascapular nerve. An additional needle was placed in a similar manner at the middle third of the greater trochanter of the humerus, lateral to the humeral head, on the ipsilateral side to approximate the position of the sensory branches of the axillary nerve. After negative aspiration for blood or bodily fluid, 0.25ml of Omnipaque 300 contrast medium was injected at each site confirming appropriate spread of contrast without evidence of intravascular or intra-articular placement. After repeat negative aspiration, 0.5 ml of 0.5% PF Bupivacaine was injected at each site to block the respective nerves. Needle was removed completely intact without difficulty. Patient was then transitioned to the supine position. Site was prepared and draped sterilely as above. The glenohumeral joint was visualized in the AP orientation using slight cephalad tilt and contralateral oblique angulation to optimize visualization of the glenohumeral joint space and coracoid process. In a similar manner as above, two needles were placed to periosteum, one at the superior third of the glenoid fossa medial to the joint capsule to approximate the sensory branches of the superior subscapularis nerve and one at the middle third or neck of the coracoid process to approximate the sensory branches of the lateral pectoral nerve. Once placement was confirmed, each anterior nerve was blocked in a similar manner as above. Images were saved and documented in the patient chart. Patient's skin was cleansed and sterile bandage applied. The patient tolerated the procedure well. The patient was transported to the recovery area in stable condition where they were observed for an appropriate amount of time prior to discharge, without evidence of complication. Patient was instructed on the appropriate completion of a pain diary over the next 6-12 hours. The patient was instructed to avoid excessive activity for the next 48 hours, including heavy lifting, pushing, pulling, or carrying over 5 lbs, or any overhead work with gradual return to normal activity as tolerated. Showers only for 48 hours. Apply a cool pack using skin protection principles intermittently for 48 hours as needed. They were instructed not to drive or operate heavy machinery for 24 hours. They are to monitor for severe headaches, fevers, chills, night sweats, erythema/swelling at the site or any other signs of infection, bleeding/bruising, bowel, or bladder changes as well as new pain, weakness or numbness in the upper or lower extremity. Should they notice these changes, they are instructed to call our office immediately or report directly to the nearest Emergency Department if no answer or if after posted office hours. COMPLICATIONS: None. COMMENTS: None. CONTRAST WASTED: 29 mL Omnipaque 300 Complications No immediate complications Condition Stable Disposition Same day [facility] Billing Surgery - Charge Forward: Surgery Billing
[2024-06-04 15:00] VITALS: BP 137/59; PULSE 91; RESP 16; O2SAT 98
[2024-06-04] MEDS: BUPivacaine HCL 0.5% 10 ML AMP 5 ML INFILTRATE (15:02)
[2024-06-04 15:05] VITALS: BP 148/65; PULSE 91; RESP 16; O2SAT 99
[2024-06-04 15:10] VITALS: BP 144/67; PULSE 90; RESP 16; O2SAT 100
[2024-06-04 15:15] VITALS: BP 142/59; PULSE 91; RESP 16; O2SAT 98
[2024-06-04 15:20] VITALS: BP 144/65; PULSE 91; RESP 16; O2SAT 99
[2024-06-04 15:24] VITALS: BP 153/86; PULSE 89; RESP 16; O2SAT 96
== END 2024-06-04 15:47 | disposition home or self-care (01) ==
PROVIDERS: PCP Clinical Nurse Specialist; Visit Provider Anesthesiology Pain Medicine
PROC: (CPT 64418; principal; 2024-06-04 15:00)
DX: M75.42 Impingement syndrome of left shoulder (principal); M19.012 Primary osteoarthritis, left shoulder; D69.6 Thrombocytopenia, unspecified; E11.9 Type 2 diabetes mellitus without complications; I10 Essential (primary) hypertension; D64.9 Anemia, unspecified; E03.9 Hypothyroidism, unspecified; G60.8 Other hereditary and idiopathic neuropathies; L93.0 Discoid lupus erythematosus; M17.0 Bilateral primary osteoarthritis of knee; M62.838 Other muscle spasm; J96.01 Acute respiratory failure with hypoxia; I77.9 Disorder of arteries and arterioles, unspecified; M79.7 Fibromyalgia; G62.9 Polyneuropathy, unspecified; M06.9 Rheumatoid arthritis, unspecified; M21.42 Flat foot [pes planus] (acquired), left foot; M21.41 Flat foot [pes planus] (acquired), right foot; G89.29 Other chronic pain; K52.9 Noninfective gastroenteritis and colitis, unspecified; I25.2 Old myocardial infarction; G56.03 Carpal tunnel syndrome, bilateral upper limbs; Z79.4 Long term (current) use of insulin; Z79.84 Long term (current) use of oral hypoglycemic drugs; Z79.51 Long term (current) use of inhaled steroids; Z79.891 Long term (current) use of opiate analgesic; Z79.82 Long term (current) use of aspirin; Z98.890 Other specified postprocedural states; Z90.49 Acquired absence of other specified parts of digestive tract; Z87.891 Personal history of nicotine dependence; Z80.1 Family history of malignant neoplasm of trachea, bronchus and lung
CPT/HCPCS: 64418; 64417; 64450 ×2; 99199; Q9965

== ENCOUNTER 2024-06-17 14:59 | Outpatient (CLI) | payer OTHER, MEDICARE, BC, SELFPAY ==
--- OUTSIDE RECORDS SUMMARY | 2024-06-17 16:59 | XMS_ITS | Clinical Summary ---
Author Organization [facility] Gigi Begumcharline Address [address] [facility] [place] [address] Care Team Providers Care Ambulatory Analyst Name Role Phone Charles Armendariz DO Primary Care Provider Allergies Active Allergy Reactions Criticality Noted Date Comments Canagliflozin Other (See Comments) Low 10/28/2021 Ciprofloxacin Nausea and Vomiting Low 09/08/2022 Daptomycin Diarrhea Low 06/29/2020 Doxycycline Other (See Comments),Unknown Low 09/19/2019 Empagliflozin Diarrhea Low 04/21/2021 Lisinopril Cough Low 08/13/2018 Povidone-Iodine Rash Medium 05/05/2017 Semaglutide Unknown High 01/27/2021 Nmnsyvx-Nzc-Gzq Reductase Inhibitors Muscle Pain Medium 11/05/2020 Valsartan [...] daily. Active fluticasone propionate (FLONASE) 50 mcg/spray [place], Suspension nasal inhaler Administer 2 Sprays in [...] Encounters Date Type Department Care Team Description 06/17/2024 Orders Only [facility] Oncology and Hematology - Kevin [address] [place] [address] Ray Richards MD Chronic anemia 06/13/2024 Orders Only [facility] Oncology and Hematology - Kevin [address] [place] [address] Ray Richards MD Chronic anemia (Primary Dx) 06/03/2024 Orders Only [facility] Oncology and Hematology - Kevin [address] [place] [address] Ray Richards MD Chronic anemia 05/28/2024 External Device Data STL ABSTRACTION Provider, Abstract 05/28/2024 External Device Data STL ABSTRACTION Provider, Abstract 05/28/2024 External Device Data ST[place] ABSTRACTION Provider, Abstract 05/22/2024 9:45 AM CDT Office Visit [facility] Oncology and Hematology - Kevin [address] [place] [address] Ray Richards MD Chronic anemia (Primary Dx) 05/22/2024 Orders Only [facility] Oncology and Hematology - Kevin [address] [place] [id number] Ray Richards MD 05/20/2024 Orders Only [facility] Oncology and Hematology - Kevin [address] [place] [address] Ray Richards MD Chronic anemia 05/06/2024 Orders Only [facility] Oncology and Hematology - Kevin [address] [place] [address] Ray Richards MD Chronic anemia 05/01/2024 External Device Data STL ABSTRACTION Provider, Abstract 05/01/2024 External Device Data STL ABSTRACTION Provider, Abstract 04/30/2024 External Device Data STL ABSTRACTION Provider, Abstract 04/27/2024 1:30 AM SHIPFITTER - 04/27/2024 7:05 AM [facility] Emergency [facility] Emergency Department [facility] [place] [id number] Tobias Holden MD Encounter for blood typing (Primary Dx); Fall, initial encounter; Traumatic hematoma of right elbow, initial encounter Discharge Disposition: Home or Self Care 04/27/2024 Travel 04/24/2024 Orders Only [facility] Oncology and Hematology - Kevin [address] [place] [phone] Ray Richards MD 04/22/2024 Orders Only [facility] Oncology and Hematology - Kevin [address] [place] [address] Ray Richards MD Chronic anemia 04/16/2024 External Device Data STL ABSTRACTION Provider, Abstract 04/11/2024 Orders Only [facility] Oncology and Hematology - Kevin [address] [place] [address] Ray Richards MD Chronic anemia (Primary Dx) 04/09/2024 Orders Only [facility] Oncology and Hematology - Kevin [address] [place] [address] Ray Richards MD Chronic anemia (Primary Dx) 04/08/2024 Orders Only [facility] Oncology and Hematology - Kevin [address] [place] [address] Ray Richards MD Chronic anemia 03/28/2024 Orders Only [facility] Oncology and Hematology - Kevin [address] [place] [address] Ray Richards MD 03/27/2024 9:15 AM SHIPFITTER Office Visit [facility] Oncology and Hematology - Kevin [address] [place] [address] Ray Richards MD Chronic anemia (Primary Dx) 03/27/2024 Orders Only [facility] Oncology and Hematology - Kevin [address] [place] [address] Ray Richards MD 03/26/2024 External Device Data STL ABSTRACTION Provider, Abstract 03/25/2024 Orders Only [facility] Oncology and Hematology - Kevin [address] [place] [address] Ray Richards MD Chronic anemia 03/20/2024 External Device Data STL ABSTRACTION Provider, Abstract 03/20/2024 External Device Data STL ABSTRACTION Provider, Abstract from Last 3 Months Family History Medical [...] Date Smoking Tobacco: Former Cigarettes Q uit: 1997 Smokeless Tobacco: Never Tobacco Cessation:Counseling Given: Not [...] on file Legal Sex Female 3:40 AM SHIPFITTER Gender Identity Not on file Sexual Orientation [...] cm (5' 1 ) 04/12/2023 1:08 PM SHIPFITTER Body Mass Index 40.17 04/12/2023 1:08 PM SHIPFITTER Plan of Treatment Upcoming Encounters Date Type Department Care Team (Late st Contact Info) Description 07/31/2024 9:30 AM CDT Office Visit [facility] Oncology and Hematology - [place] [address] [facility] [address] [place] [address] Ray Richards MD [address] [facility] [address] [place] [address] Health Maintenance Due Date Last [...] 1-dose series) 2012 COVID-19 Vaccine (5 - 2023-2 5 season) 2023 09/28/2021, 03/22/2021, 06/10/2020, Additional history exists BREAST CANCER SCREENING 12/01/2023 12/01/19, 10/13/2021, 10/07/2020, Additional history exists DIABETES ANNUAL RETINAL EXAM 03/06/202409/2023, 08/22/2022, 04/05/2022, Additional history exists DIABETES ANNUAL FOOT EXAM 10/23/2024 10/24/2023 DIABETES HBA1C Q 6 MONTHS 10/31/20242024, 10/24/2023, 03/09/2023, Additional history exists OSTEOPOROSIS SCREENING 04/02/2029 , 04/02/2024, 09/23/2021, Additional history exists COLORECTAL SCREENING 05/19/2030 05/19/2020 Colorectal Cancer Screening 05/19/2030 DTAP/TDAP/TD VACCINES (2 - T d or Tdap) 09/15/2031 09/14/2021, 02/28/2006 INFLUENZA VACCINE Completed 01/01/2024, , 05/27/2015, Additional history exists Procedures Procedure Name Priority Date/Time Associated Diagnosis Comments CBC WITH AUTODIFFERENTIAL Routine 05/21/2024 1:41 PM CDT TYPE AND SCREEN Stat 04/27/2024 3:[address] HEAD CERVICAL SPINE WO CONTRAST Stat 04/27/2024 3:02 AM SHIPFITTER XR FOREARM 2 VW RIGHT Stat 04/27/2024 2:54 AM SHIPFITTER XR HUMERUS 2+ VW RIGHT Stat 2:54 AM SHIPFITTER XR KNEE 3 VW RIGHT Stat 04/27/2024 2: 54 AM SHIPFITTER XR KNEE 3 VW LEFT Stat 04/27/2024 2:5 4 AM SHIPFITTER XR CHEST PA OR AP 1 VW Stat 2:54 AM SHIPFITTER VERIFICATION BLOOD GROUP Stat 025 2:21 AM SHIPFITTER Encounter for blood typing PTT Stat 04/27/2024 2:21 AM SHIPFITTER PROTIME-INR Stat 04/27/2024 2:21 AM SHIPFITTER COMPREHENSIVE METABOLIC PANEL Stat 04/27/2024 2:21 AM SHIPFITTER CBC WITH DIFFERENTIAL Stat 04/27/2024 2:21 AM SHIPFITTER CBC WITH AUTODIFFERENTIAL Routine 04/24/2024 11:51 AM SHIPFITTER BASIC METABOLIC PANEL Routine 03/27/2024 4:07 PM SHIPFITTER CBC WITH DIFFERENTIAL Routine 03/27/2024 3:59 PM SHIPFITTER IRON PANEL Routine 03/27/2024 11:52 AM SHIPFITTER IRON, TIBC, AND PERCENT SATURATION Routine 03/26/2024 1:21 PM SHIPFITTER BASIC METABOLIC PANEL Stat 03/26/2024 1:21 PM SHIPFITTER Chronic anemia FERRITIN Routine 03/26/2024 1:21 PM SHIPFITTER Chronic anemia CBC WITH DIFFERENTIAL Routine 03/26/2024 1:21 PM SHIPFITTER Chronic anemia from Last 3 Months Results * CBC WITH AUTODIFFERENTIAL (05/21/2024 1:41 PM CDT) Only the most recent of2 resultswithin the time period is included. Blood us Ray Richards MD HEMATOLOGY ORDERABLES Final Res ult * TYPE AND SCREEN (04/27/2024 3:27 AM SHIPFITTER) ABO GROUP B 04/27/2024 5:22 AM [facility] LABORATORY SERVICES -- [facility] RH (D) TYPE Positive 04/27/2024 5:22 AM SHIPFITTER [facility] LABORATORY SERVICES -- [facility] ANTIBODY SCREEN Negative 04/27/2024 5:22 AM SHIPFITTER [facility] LABORATORY SERVICES -- [facility] Blood Venipuncture / Unknown 04/27/2024 3:27 AM SHIPFITTER 04/27/2024 3:35 AM SHIPFITTER us Tobias Holden MD BLOOD BANK ORDERABLES Edited Result - Final [facility] LABORATORY SERVICES -- [facility] CLIA# [id number] [address] [place] [address] * CT HEAD CERVICAL SPINE WO CONTRAST (04/27/2024 3:02 AM SHIPFITTER) Anatomical Region Laterality Modality Head Computed Tomogra phy 04/27/2024 2:47 AM SHIPFITTER Impressions 04/27/2024 3:22 AM SHIPFITTER IMPRESSION: 1. No acute intracranial finding 2. Chronic small vessel skin changes 3. No evidence of cervical spine fracture. Spondylitic changes seen throughout DICTATION LOCATION: Location 4 Narrative 04/27/2024 3:[address] HEAD CERVICAL SPINE WO CONTRAST EXAM [...] FOREARM 2 VW RIGHT (04/27/2024 2:54 AM SHIPFITTER) Anatomical Region Laterality Modality Upper Extremity Computed Radiogr aphy 04/27/2024 2:55 AM SHIPFITTER Impressions 04/27/2024 9:10 AM SHIPFITTER IMPRESSION: 1. No acute osseous abnormality identified. Subtle linear lucency in the radial head which is likely due to variant of trabeculation with a fracture felt to be unlikely. If there is clinical concern for radial head fracture would recommend follow-up dedicated elbow radiographs. 2. Focal soft tissue swelling involving the proximal forearm which is likely a hematoma. DICTATION LOCATION: Location [address] [place] [address] Narrative 04/27/2024 9:10 AM SHIPFITTER XR FOREARM 2 VW RIGHT DATE: 04/27/2024 [...] which is likely a hematoma. DICTATION LOCATION: Location [address] [place] [address] Tobias Holden MD DIAGNOSTIC IMAGING ORDERABLES Final Result * XR HUMERUS 2+ VW RIGHT (04/27/2024 2:54 AM SHIPFITTER) Anatomical Region Laterality Modality Upper Extremity Computed Radiogr aphy 04/27/2024 2:54 AM SHIPFITTER Impressions 04/27/2024 7:48 AM SHIPFITTER IMPRESSION: 1. No acute osseous abnormality identified. DICTATION LOCATION: [address] Narrative 04/27/2024 7:48 AM SHIPFITTER XR HUMERUS 2+ VW RIGHT DATE: 04/27/2024 [...] No acute osseous abnormality identified. DICTATION LOCATION: [address] Tobias Holden MD DIAGNOSTIC IMAGING ORDERABLES Final Result * XR KNEE 3 VW RIGHT (04/27/2024 2:54 AM SHIPFITTER) Anatomical Region Laterality Modality Lower Extremity Computed Radiogr aphy 04/27/2024 2:54 AM SHIPFITTER Impressions 04/27/2024 7:49 AM SHIPFITTER IMPRESSION: Joint effusion without evidence of acute fracture or dislocation. Tricompartmental osteoarthritis. DICTATION LOCATION: [address] Narrative 04/27/2024 7:49 AM SHIPFITTER EXAMINATION: XR KNEE 3 VW RIGHT DATE: [...] fracture or dislocation. Tricompartmental osteoarthritis. DICTATION LOCATION: [address] us Tobias Holden MD DIAGNOSTIC IMAGING ORDERABLES Final Result * XR KNEE 3 VW LEFT (04/27/2024 2:54 AM SHIPFITTER) Anatomical Region Laterality Modality Lower Extremity Computed Radiogr aphy 04/27/2024 2:54 AM SHIPFITTER Impressions 04/27/2024 7:47 AM SHIPFITTER IMPRESSION: 1. Advanced tricompartmental degenerative changes. No acute osseous abnormality identified. DICTATION LOCATION: [address] Narrative 04/27/2024 7:47 AM SHIPFITTER XR KNEE 3 VW LEFT DATE: 04/27/2024 [...] acute osseous abnormality identified. DICTATION LOCATION: Location [address] [place] [address] us Tobias Holden MD DIAGNOSTIC IMAGING ORDERABLES Final Result * XR CHEST PA OR AP 1 VW (04/27/2024 2:54 AM SHIPFITTER) Anatomical Region Laterality Modality Chest Computed Radiogr aphy 04/27/2024 2:54 AM SHIPFITTER Impressions 04/27/2024 7:47 AM SHIPFITTER IMPRESSION: Clear lungs. DICTATION LOCATION: Location [address] [place] [address] Narrative 04/27/2024 7:47 AM SHIPFITTER EXAMINATION: XR CHEST PA OR AP 1 [...] portable technique. IMPRESSION: Clear lungs. DICTATION LOCATION: [address] Tobias Holden MD DIAGNOSTIC IMAGING ORDERABLES Final Result * VERIFICATION BLOOD GROUP (04/27/2024 2:21 AM SHIPFITTER) ABO GROUP B 04/27/2024 7:43 AM SHIPFITTER [facility] LABORATORY SERVICES -- [facility] RH (D) TYPE Positive 04/27/2024 7:43 AM SHIPFITTER [facility] LABORATORY SERVICES -- [facility] Blood Venipuncture / Unknown 04/27/2024 2:21 AM SHIPFITTER 04/27/2024 7:01 AM SHIPFITTER Daksha Keith MD BLOOD BANK ORDERABLES Final Result [facility] LABORATORY SERVICES -- [facility] CLIA# [id number] [address] [facility] [address] [address] * (ABNORMAL) CBC WITH DIFFERENTIAL (04/27/2024 2:21 AM SHIPFITTER) Only the most recent of3 resultswithin the time period is included. WBC 6.1 4.0 - 9.8 K/uL 04/27/2024 2:54 AM SHIPFITTER [facility] LABORATORY SERVICES - [facility] RBC 3.73(L) 3.90 - 4.90 M/uL 04/27/2024 2:54 AM SHIPFITTER [facility] LABORATORY SERVICES - [facility] HEMOGLOBIN 10.2(L) 11.8 - 14.8 g/dL 04/27/2024 2:54 AM SHIPFITTER [facility] - [facility] HEMATOCRIT 33.3(L) 35.5 - 44.0 % 04/27/2024 2:54 AM SHIPFITTER [facility] - [facility] MCV 89.3 82.0 - 99.0 fL 04/27/2024 2:54 AM SHIPFITTER [facility] - [facility] MCH 27.3 27.2 - 32.6 pg 04/27/2024 2:54 AM SHIPFITTER [facility] LABORATORY SERVICES - . [facility] MCHC 30.6(L) 31.5 - 35.5 g/dL 04/27/2024 2:54 AM [facility] LABORATORY SERVICES - . [facility] RDW 16.4(H) 11.5 - 14.5 % 04/27/2024 2:54 AM SHIPFITTER [facility] LABORATORY SERVICES - [facility] RDW-STDEV 53.3(H) 37.1 - 48.7 fL 04/27/2024 2:54 AM SHIPFITTER [facility] LABORATORY SERVICES - [facility] PLATELETS 136(L) 140 - 350 K/uL 04/27/2024 2:54 AM [facility] LABORATORY SERVICES - . [facility] MPV 11.6 9.3 - 12.4 fL 04/27/2024 2:54 AM [facility] LABORATORY SERVICES - [facility] NEUTROPHILS 63 % 04/27/2024 2:54 AM SHIPFITTER [facility] LAB[facility]ATORY SERVICES - [facility] LYMPHOCYTES 25 % 04/27/2024 2:54 AM SHIPFITTER [facility] - [facility] MONOCYTES 8 % 04/27/2024 2:54 AM SHIPFITTER [facility] - [facility] EOSINOPHILS 3 % 04/27/2024 2:54 AM SHIPFITTER [facility] - [facility] BASOPHILS 0 % 04/27/2024 2:54 AM SHIPFITTER [facility] SERVICES - [facility] IMMATURE GRANULOCYTES 1 % 04/27/2024 2:54 AM SHIPFITTER [facility] LABORATORY SERVICES - . [facility] Comment:IG (Immature Granulo cyte) count includes Metamyelocytes, Myelocytes, and Promyelocytes NEUTROPHIL ABSOLUTE 3.83 1.90 - 7.00 K/uL 04/27/2024 2:54 AM [facility] LYMPHOCYTE ABSOLUTE 1.51 0.70 - 4.50 K/uL 04/27/2024 2:54 AM [facility]. [facility] MONOCYTE ABSOLUTE 0.51 0.10 - 1.30 K/uL 04/27/2024 2:54 AM [facility] EOSINOPHIL ABSOLUTE 0.20 0.00 - 0.70 K/uL 04/27/2024 2:54 AM [facility]. [facility] BASOPHILS ABSOLUTE 0.02 0.00 - 0.20 K/uL 04/27/2024 2:54 AM [facility] IMMATURE GRANULOCYTES ABSOLUTE 0.04(H) 0.00 - 0.03 K/uL 04/27/2024 2:54 AM [facility] Blood Venipuncture / Unknown 04/27/2024 2:21 AM SHIPFITTER 04/27/2024 2:27 AM [facility] us Tobias Holden MD HEMATOLOGY ORDERABLES Final R esult [facility]# [id number] [address] [facility] [address] * PTT (04/27/2024 2:21 AM SHIPFITTER) [facility] PTT 33.3 24.4 - 36.4 seconds 04/27/2024 3:15 AM [facility] Comment: PTT Therapeutic Range: Heparin Level PTT (seconds) <0.10 units/mL <55.8 0.10 - 0.30 units/mL 55.8 - 74.3 0.30 - 0.70 units/mL* 74.3 - 111.2* 0.70 - 1.00 units/mL 111.2 - 138.9 *corresponds to therapeutic range for unfractionated heparin Blood Venipuncture / Unknown 04/27/2024 2:21 AM SHIPFITTER 04/27/2024 2:27 AM SHIPFITTER Tobias Holden MD HEMATOLOGY ORDERABLES Final [id number] [address] [place] [address] * PROTIME-INR (04/27/2024 2:21 AM SHIPFITTER) PROTIME 13.4 12.7 - 15.1 Seconds 04/27/2024 3:15 AM SHIPFITTER [facility] LABORATORY [facility] INR 1.0 0.9 - 1.1 04/27/2024 3:15 AM SHIPFITTER [facility] LABORATORY [facility] Blood Venipuncture / Unknown 04/27/2024 2:21 AM SHIPFITTER 04/27/2024 2:27 AM SHIPFITTER Narrative [facility] LABORATORY [facility] - 04/27/2024 3:15 AM SHIPFITTER INR Therapeutic Range: Adult: 2.0 - 3.0 for pulmonary embolism or prophylaxis against venous thrombosis or systemic embolization. 2.0 - 3.0 for patients with tissue heart valves. 2.5 - 3.5 for patients with mechanical heart valves or post SC. Pediatric (12 years and under): 1.5 - 3.0 Although the target range in children is not well established, INR values of 1.5 - 3.0 are recommended for most patients. Higher values have been used in children with prosthetic cardiac valves and hereditary clotting disorders. Veblen (<3 days) therapeutic ranges have not been established. Tobias Holden MD HEMATOLOGY ORDERABLES Final R esult [id number] [address] [place] [address] * (ABNORMAL) COMPREHENSIVE METABOLIC PANEL (04/27/2024 2:21 AM SHIPFITTER) SODIUM 134(L) 136 - 145 mmol/L 04/27/2024 3:30 AM SHIPFITTER [facility] LABORATORY SERVICES - [facility] POTASSIUM 4.4 3.5 - 5.0 mmol/L 04/27/2024 3:30 AM [facility] LABORATORY SERVICES - [facility] CHLORIDE 101 98 - 107 mmol/L 04/27/2024 3:30 AM [facility] LABORATORY SERVICES - [facility] CO2 22 22 - 29 mmol/L 04/27/2024 3:30 AM [facility] LABORATORY SERVICES - . [facility] CALCIUM 8.9 8.6 - 10.2 mg/dL 04/27/2024 3:30 AM [facility] LABORATORY SERVICES - . [facility] BUN 43(H) 8 - 23 mg/dL 04/27/2024 3:30 AM [facility] LABORATORY SERVICES - . [facility] CREATININE 1.49(H) 0.51 - 0.95 mg/dL 04/27/2024 3:30 AM [facility] LABORATORY SERVICES - [facility] Comment:The GFR result is no t clinically significant on patients <18 or >70 years of age. GLUCOSE 370(H) 74 - 99 mg/dL 04/27/2024 3:30 AM [facility] LABORATORY SERVICES - [facility] TOTAL PROTEIN 7.4 6.7 - 8.6 g/dL 04/27/2024 3:30 AM [facility] LABORATORY SERVICES - . [facility] ALBUMIN 3.4(L) 3.5 - 5.2 g/dL 04/27/2024 3:30 AM [facility] LABORATORY SERVICES - [facility] BILIRUBIN TOTAL 0.2 0.2 - 1.1 mg/dL 04/27/2024 3:30 AM [facility] LABORATORY SERVICES - [facility] ALKALINE PHOSPHATASE 188(H) 35 - 104 U/L 04/27/2024 3:30 AM [facility] LABORATORY SERVICES - . [facility] AST 40(H) <33 U/L 04/27/2024 3:30 AM [facility] LABORATORY SERVICES - . [facility] ALT 21 <34 U/L 04/27/2024 3:30 AM [facility] LABORATORY SERVICES [facility]. [facility] GFR 37 mL/min/1.7 3 sq meter 04/27/2024 3:30 AM [facility] LABORATORY SERVICES [facility] Comment:eGFR calculated with 2020 CKD-EPI equation. Vegetarian diet, extremely high or low muscle mass, and may affect results. Cystatin C with Glomerular Filtration Rate is a suitable alternative for these patients. ANION GAP 11 8 - 16 mmol/L 04/27/2024 3:30 AM SHIPFITTER [facility] Blood Venipuncture / Unknown 04/27/2024 2:21 AM SHIPFITTER 04/27/2024 2:27 AM SHIPFITTER Narrative [facility] - 04/27/2024 3:30 AM SHIPFITTER Samples containing indocyanine green cause interferences on Total and/or Direct Bilirubin and must not be measured. Tobias Holden MD CHEMISTRY ORDERABLES Final Re sult [facility] CLIA# [id number] [address] [place] [address] * BASIC METABOLIC PANEL (03/27/2024 4:07 PM SHIPFITTER) Only the most recent of2 resultswithin the time period is included. Blood Ray Richards MD CHEMISTRY ORDERABLES Final Resu lt * IRON PANEL (03/27/2024 11:52 AM SHIPFITTER) Blood Ray Richards MD CHEMISTRY ORDERABLES Final Resu lt * (ABNORMAL) IRON, TIBC, AND PERCENT SATURATION (03/26/2024 1:21 PM SHIPFITTER) IRON 42(L) 45 - 160 mcg/dL [facility] TIBC 318 250 - 450 mcg/dL (calc) [facility] IRON % SATURATION 13(L) 16 - 45 % (calc) [facility] Comment: Test Performed at: [facility] [address], [place] [address] Tres Lund MD 03/26/2024 1:21 PM SHIPFITTER 03/26/2024 1:22 PM SHIPFITTER us Ray Richards MD CHEMISTRY ORDERABLES Final Resu lt [facility] [phone] [facility] [address] [place] [address] * FERRITIN (03/26/2024 1:21 PM SHIPFITTER) FERRITIN 33 16 - 288 ng/mL [facility] Comment: Test Performed at: [facility] [address] [employer] [place] [address] Tres Lund MD Blood 03/26/2024 1:21 PM SHIPFITTER 03/26/2024 1:22 PM SHIPFITTER us Ray Richards MD CHEMISTRY ORDERABLES Final Resu lt [facility] [phone] [facility] [address] [place] [address] from Last 3 Months Insurance MEDICARE PART A AND B [employer] ACCESS/TRUE [employer] PPO [employer] HMO OPEN ACCESS Member Subscriber Plan / Payer (Ef fective 2023-Present) Name:Aleyda Quinonez Relation to Subscriber:Self Name:Leonor AtlantaLinseyAleyda Marilin Payer ID:Not on file Group ID:Not on file Type:[facility] Address: [place] [id number] [facility] Member Subscriber Plan / Payer (Ef fective 2023-Present) Name:Aleyda Quinonez Relation to Subscriber:Self Name:Leonor Aleyda Dobbs Payer ID:Not on file Group ID:Not on file Type:O Address: [place] [id number] BC[employer] BLUE ACCESS/TRUE BLUE PPO MEDICARE PART A AND B Care Teams Ambulatory Analyst Relationship Specialty Start Date End Date Charles Armendariz DO [address] [address] PCP - General Internal Medicine 11/04/22
--- OUTSIDE RECORDS SUMMARY | 2024-06-17 16:59 | XMS_ITS | Clinical Summary ---
Author Organization [facility] Address [address] [facility], [place] [address] Phone Care Team Providers Care Candy Counter Clerk Name Role Phone Charles Armendariz DO Primary [...] Tablet Take 1 Tab by mouth daily. [id number] 1 Tab 0 6 Active azithromycin (ZITHROMAX) [...] age to complete this topic Insurance [facility] Care Teams Candy Counter Clerk Relationship Specialty Start Date End Date Charles Armendariz DO [address] [place] [address] PCP - General Internal Medicine 11/05/15
--- OUTSIDE RECORDS SUMMARY | 2024-06-17 16:59 | XMS_ITS | Clinical Summary ---
Author Organization [facility] Address [address] [address] Care Team Providers [employer] Name Role Phone Tammy Arroyo RN Unavailable [phone] Charles Armendariz DO Primary Care Provider [phone] Source Comments [facility],non-owned Affiliates and Associated Physician Practices is amultiple site organization consisting of ambulatory clinics and hospital sitesin [place], [place], [place] and [place]. This disclosure is being madepursuant to the Care Everywhere program and may not contain all information available regarding this patient. Last updated 17.[facility] Allergies Active Allergy Reactions Criticality Noted Date Comments Povidone Iodine Rash Medium 05/05/2017 Valsartan Urticaria Medium 03/30/2017 Vancomycin Urticaria Medium 11/05/2015 Medications * Be aware that medications may not be up to date on this document. Alwaysverify current medications with the patient. montelukast (SINGULAIR) 10 MG tablet Take 10 mg by mouth once daily Active fluticasone propionate (FLONASE) 50 MCG/ACT nasal spray [place] 2 Sprays into each nostril once daily Active metFORMIN (GLUCOPHAGE) 1000 MG tablet Take 1,000 mg by mouth 2 times daily with morning and evening meal Active insulin lispro (HUMALOG) 100 UNIT/ML penIndications :Type 2 Diabetes Mellitus Inject 12 Units subcutaneously 3 times daily before meals Reasons: Type 2 Diabetes Active insulin glargine (LANTUS) pen Inject 60 Units subcutaneously at bedtime Active levothyroxine (SYNTHROID) 100 MCG tablet Take 100 mcg by mouth daily before breakfast Active aspirin (ASPIRIN) 81 MG chew tablet Take 81 mg by mouth every evening Active esomeprazole (NEXIUM) 20 MG capsule Take 22.3 mg by mouth daily before breakfast Active vitamin D3 (CHOLECACIFERO L) 5000 UNITS Take 5,000 Units by mouth once daily Active albuterol HFA (PROVENTIL;ELVIN TOLIN;PROAIR) 108 (90 BASE) MCG/ACT inhaler Inhale 2 Puffs by mouth every 6 hours as needed Active fish oil/omega-3 fatty acids (PROMEGA;CARDI -OMEGA 3) 1000 MG capsule Take 1,000 mg by mouth 2 times daily with morning and evening meal Active hydroxychloroq uine (PLAQUENIL) 200 MG tablet Take 200 mg [...] MG tablet Take 4 tablets by mouth 8 Active Active Problems No known active problems Immunizations Immunization Administration Dates Next Due INFLUENZA VACCINE, QUADR. [...] oz pur e alcohol) less than one/month Comments No Sex and Gender Information Value Date Recorded Sex Assigned at Not on file Legal Sex Female 6:07 AM TRAINING FACILITATOR Gender Identity Not on file Sexual Orientation [...] 105.7 kg (233 lb) 05/05/2017 6:48 AM TRAINING FACILITATOR Height 161.3 cm (5' 3.5 ) 05/05/2017 6:48 AM TRAINING FACILITATOR Body Mass Index 40.63 05/05/2017 6:48 AM TRAINING FACILITATOR Plan of Treatment Health Maintenance Due Date [...] VACCINE ( - 2023-2 5 season) 2023 DEPRESSION SCREENING [...] patient's age to complete this topic Insurance [facility] Advance Directives * Full Code (Latest Code Status on File) Date Activated Date Inactivated Comments 05/26/2015 11:04 PM 06/01/2015 6:08 PM * Full Code Date Activated Date Inactivated Comments 05/26/2015 7:39 PM 05/26/2015 11:04 PM Care Teams [employer] Relationship Specialty Start Date End Date Charles Armendariz DO PCP - General 06/04/20 Tammy Arroyo, RN Analyst [employer] 05/26/15
--- OUTSIDE RECORDS SUMMARY | 2024-06-17 17:00 | XMS_ITS | CONTINUITY OF CARE DOCUMENT ---
Author Name yareli downs Address Unknown Organization [facility] Address [address] [place] [address] Phone [phone] Care Team Providers Care Cloth Presser Name Role Phone David Vanegas MD Unavailable GILBERTO IRIZARRY DO Unavailable [phone] GILBERTO IRIZARRY DO Unavailable PROBLEMS Condition Status Date Provider Notes PALPITATIONS:NEG, ECHO, CXR, HOLTER 2007 active - David Vanegas MD PVD;NEG HILDA 2008 completed - David Vanegas MD EDEMA;NEG VD 2008 completed - David Vanegas MD CAROTID ARTERY DISEASE;NEG DUPLEX completed - David Vanegas MD Diastolic CHF active David Vanegas MD intol to jardince, ef too good for entrsto, intio to arb Cough due to VIET inhibitors active David Vanegas MD CAD;NEG CATH 2004, NEG NUC 2006 AND 11 completed - David Vanegas MD SLEEP APNEA; active David Vanegas MD ISCHEMIA; CXR 11, NML ANGIO 12 completed - David Vanegas MD Anemia of chronic disease active David olivera MD previould iron def hx of CARPAL TUNNEL SYNDROME;had bilat charito completed - David Vanegas MD CONGENITAL HEART [...] to sglt2 Shortness of breath completed - Dvaid Vanegas MD PFO active David Vanegas MD shawanda 2022 and 24 Tuberculosis active David Vanegas MD Elevated LFT's active David Vanegas MD neg hep screen, neg us, remote nan LFT, ABNORMAL;PRAVA STOPPED PRIMARY, fu per primay completed - David Vanegas MD COPD;has lung md active David Vanegas MD TOBACCO ABUSE;NEG AMI 11 completed 09/09 - David Vanegas MD FATIGUE;DOES NOT SEEM TO BE CARDIAC, TO SEE PRIMARY completed - David Vanegas MD Hypothyroidism;ON RX PER PRIMARY active David Vanegas MD Hypercholesterolemia;with high crp and low lpa active David Vanegas MD CAD;neg carotdi dupelx active David Vanegas MD on x 2.5 HTN ESSENTIAL;neg duplex and angio active David Vanegas MD CHEST PAIN-10/31 CATH NEG LV 70,?MICROVASCULAR DZ active - David Vanegas MD SOB; NEG CXR 2007 active - David Vanegas MD OBESITY; active David Vanegas MD HTN-04/05 [id number] active - David turner MD DIABETES MELLITUS;since 1997 active David Vanegas MD intol to sglt2 and arb and ozemopci, cannot affored krenidas ENCOUNTERS Date Type Provider Location Encounter Diag nosis 1 - 1 In-person encounter Office Visit David Vanegas MD [facility] Diastolic CHFPFOElevated LFT's 4 - 4 In-person encounter Office Visit David Vanegas MD [facility] CAD;neg carotdi dupelxCOPD;has lung mdTuberculosis 9 - 9 In-person encounter Office Visit David Vanegas MD [facility] Diastolic CHFAnemia of chronic diseaseMitral valve disorderShortness of breathPFO 1 - 1 In-person encounter Office Visit David Vanegas MD [facility] 5 - 5 In-person encounter Office Visit David Vanegas MD [facility] DIABETES MELLITUS;since 1997MicroalbuminuriaPVD; 3 - 3 In-person encounter Office Visit David Vanegas MD [facility] DIABETES MELLITUS;since 1997CAD;neg carotdi dupelxAnemia of chronic disease 1 - 1 In-person encounter Office Visit David Vanegas MD [facility] DIABETES MELLITUS;since 1997Arrhythmia;NML TSHRenal disease, chronic, mild 3 - 3 In-person encounter Office Visit David Vanegas MD [facility] 1 - 2 In-person encounter Office Visit David Vanegas MD [facility] Hypercholesterolemia;with high crp and low lpaExposure to SARS-associated coronavirus;had vaccine and neg swab 3 - 3 In-person encounter Office Visit David Vanegas MD [facility] 1 - 1 In-person encounter Office Visit David Vanegas MD [facility] Hypothyroidism;ON RX PER PRIMARYCOPD;has lung mdAnemia of chronic diseaseMicroalbuminuriaCOPDchronic thromboisi left lsv and gsvMitral valve disorder 6 - 6 In-person encounter Office Visit David Vanegas MD [facility] HTN ESSENTIAL;neg duplex and angioCAD;neg carotdi dupelxPVD;NEG HILDA 2009CAROTID ARTERY DISEASE;NEG DUPLEXCough due to VIET inhibitorshx of CARPAL TUNNEL SYNDROME;had bilat srugeryCONGENITAL HEART DISEASE;Tobacco use, quitAngina pectorisScreeningNeuropathic painPVD;Ulcer, chronic, other part of foot 5 - 5 In-person encounter Office Visit David Vanegas MD [facility] 7 - 7 In-person encounter Office Visit David Vanegas MD [facility] CAD;neg carotdi dupelx 7 - 7 In-person encounter Office Visit David Vanegas MD [facility] LFT, ABNORMAL;PRAVA STOPPED PRIMARY, fu per primayTobacco use, quit 2 - 2 In-person encounter Office Visit David Vanegas MD [facility] 6 - 6 In-person encounter Office Visit David Vanegas MD [facility] DIABETES MELLITUS;since 1998Tricuspid regurgitation, mildAnxiety 2 - 2 In-person encounter Office Visit David Vanegas MD [facility] SLEEP APNEA;Anemia of chronic disease 1 - 1 In-person encounter Office Visit David Vanegas MD [facility] HTN ESSENTIAL;neg duplex and angioCAD;neg carotdi dupelxDiastolic CHFSLEEP APNEA;Granulomatous lung disease 8 - 8 In-person encounter Office Visit David Vanegas MD [facility] 2 - 2 In-person encounter Office Visit David Vanegas MD [facility] 6 - 6 In-person encounter Office Visit David Vanegas MD [facility] OBESITY;HTN ESSENTIAL;neg duplex and angioCAD;neg carotdi dupelxHypercholesterolemia;with high crp and low lpaISCHEMIA; CXR 11, NML ANGIO 12Anemia of chronic diseaseCONGENITAL HEART DISEASE;MicroalbuminuriaVitamin D deficiency 8 - 8 In-person encounter Office Visit David Vanegas MD [facility] 1 - 1 In-person encounter Office Visit David Vanegas MD [facility] OBESITY;HTN ESSENTIAL;neg duplex and angioCAD;neg carotdi dupelxHypercholesterolemia;with high crp and low lpaDiastolic CHFCOPD;has lung md 5 - 5 In-person encounter Office Visit David Vanegas MD [facility] 4 - 4 In-person encounter Office Visit Dvaid Vanegas MD [facility] 2 - 2 In-person encounter Office Visit David Vanegas MD [facility] 1 - 1 In-person encounter Office Visit David Vanegas MD [facility] 8 - 2013/08/2 8 In-person encounter Office Visit David Vanegas MD [facility] 5 - 5 In-person encounter Office Visit David Vanegas MD [facility] HTN ESSENTIAL;neg duplex and angioCAD;neg carotdi dupelxHypercholesterolemia;with high crp and low lpaCAD;NEG CATH 2004, NEG NUC 2006 AND 11LFT, ABNORMAL;PRAVA STOPPED PRIMARY, fu per primayhx of CARPAL TUNNEL SYNDROME;had bilat srugeryCONGENITAL HEART DISEASE; 0 - 0 In-person encounter Office Visit David Vanegas MD [facility] Diastolic CHFISCHEMIA; CXR 11, NML ANGIO 12Anemia of chronic diseasehx of CARPAL TUNNEL SYNDROME;had bilat srugery 9 - 9 In-person encounter Office Visit David Vanegas MD [facility] CAD;neg carotdi dupelxHypothyroidism;ON RX PER PRIMARYDiastolic CHFISCHEMIA; CXR 11, NML ANGIO 12LFT, ABNORMAL;PRAVA STOPPED PRIMARY, fu per primay 5 - 5 In-person encounter Office Visit David Vanegas MD [facility] LFT, ABNORMAL;PRAVA STOPPED PRIMARY, fu per primay 4 - 4 In-person encounter Office Visit David Vanegas MD [facility] DIABETES MELLITUS;since 1997OBESITY;SOB; NEG CXR 2008CHEST PAIN-10/31 CATH NEG LV 70,?MICROVASCULAR DZCAD;neg carotdi dupelxPALPITATIONS:NEG, ECHO, CXR, HOLTER 2008FATIGUE;DOES NOT SEEM TO BE CARDIAC, TO SEE PRIMARYISCHEMIA; CXR 11, NML ANGIO 12TOBACCO ABUSE;NEG AMI 11COPD;has lung md 0 - 0 In-person encounter Office Visit David Vanegas MD [facility] HTN ESSENTIAL;neg duplex and angioHypothyroidism;ON RX PER PRIMARYDiastolic CHFCough due to VIET inhibitorsCAD;NEG CATH 2003, NEG NUC 2006 AND 11SLEEP APNEA; 1 - 2 In-person encounter Office Visit David Vanegas MD [facility] HTN-04/05 [id number];neg carotdi dupelxPVD;NEG HILDA 2009EDEMA;NEG VD 2008 0 - 0 In-person encounter Office Visit David Vanegas MD [facility] DIABETES MELLITUS;since 1997SOB; NEG CXR 2007CHEST PAIN-10/31 CATH NEG LV 70,?MICROVASCULAR DZCAD;neg carotdi dupelxPALPITATIONS:NEG, ECHO, CXR, HOLTER 2007 1 - 1 In-person encounter Office Visit David Vanegas MD [facility] CHEST PAIN-10/31 CATH NEG LV 70,?MICROVASCULAR DZCAD;neg carotdi dupelxHypercholesterolemia;with high crp and low lpaHypothyroidism;ON RX PER PRIMARYPALPITATIONS:NEG, ECHO, CXR, HOLTER 2007 VITAL SIGNS Date Observation Value Provider Body Mass Index (Ratio) 38.70 kg/m2 Aleksandar Vanegas MD blood pressure, diastolic 65 mm[Hg] Ghulam [facility] blood pressure, systolic 119 mm[Hg] Kristyn dunne [facility] blood pressure, cuff size regular Ghulam johnny [facility] oxygen saturation, oximetry 97 % [facility] pulse rate 94 /min [facility] weight E&M 222 [lb_av] [facility] height E&M 63.5 [in_i] [facility] Body Mass Index (Ratio) 38.36 kg/m2 [...] Ja rret blood pressure, systolic 131 mm[Hg] [facility] pulse rate 93 /min [facility] oxygen saturation, oximetry 93 % Angel respiratory rate E&M 16 /min Angel weight E&M 225 [lb_av] [facility] height E&M 63.5 [in_i] [facility] Body Mass Index (Ratio) 40.27 kg/m2 Aleksandar Vanegas MD blood pressure, diastolic 72 mm[Hg] Denita nkLog blood pressure, systolic 142 mm[Hg] Lexis og blood pressure, cuff size large [facility], [facility] mm[Hg] rret blood pressure, systolic 142 mm[Hg] [facility] ret pulse rate 86 /min [facility] respiratory rate E&M 12 /min [facility] oxygen saturation, oximetry 94 % [facility] weight E&M 231 [lb_av] [facility] height E&M 63.5 [in_i] [facility] Body Mass Index (Ratio) 40.97 [...] blood pressure, diastolic 75 mm[Hg] Ca therine [place] blood pressure, systolic 173 mm[Hg] Cat herine [place] oxygen saturation, oximetry 95 % Ting [place] respiratory rate E&M 18 /min Catheri ne [place] pulse rate 80 /min Ting Fran weight E&M 216 [lb_av] Ting [place] blood pressure, cuff size regular Ca therine Fran height E&M 63.5 [in_i] Ting [place] Body Mass Index (Ratio) 37.14 kg/m2 Aleksandar Vanegas MD weight E&M 213 [lb_av] David Soriano Body Mass Index (Ratio) 39.58 kg/m2 Aleksandar Vanegas MD blood pressure, cuff size large Ke rri [facility]enenfsouth[facility] centermisty blood pressure, diastolic 60 mm[Hg] Ke rri Regulouenenfchi [facility] [place] [place] blood pressure, systolic 102 mm[Hg] Jae Saunders oxygen saturation, oximetry 94 % Marlene Castorenachi [facility] [place] [place] respiratory rate E&M 18 /min Marlene vossenejorge lchi [facility] [place] [place] pulse rate 99 /min Marlene Ervin [facility] weight E&M 227 [lb_av] Marlene Ervin [facility] height E&M 63.5 [in_i] Marlene Mueller [facility] Body Mass Index (Ratio) 39.92 kg/m2 Aleksandar Vanegas MD blood pressure, cuff size regular Wilfred ismaren Cory pulse rate 80 /min Ruba Cory blood pressure, diastolic 72 mm[Hg] Kr isty Cory blood pressure, systolic 130 mm[Hg] Catracho Ray oxygen saturation, oximetry 97 % Ruba [place] respiratory rate E&M 17 /min Ruba Cory weight E&M 229 [lb_av] Ruba [place] height E&M 63.5 [in_i] Ruba [place] Body Mass Index (Ratio) 39.92 kg/m2 Aleksandar [...] [in_i] Isael mansfield pulse rate #2 62 [facility] blood pressure, fisher tolic, second observation 75 mm[Hg] [facility] blood pressure, syst olic, second observation 132 mm[Hg] [facility] oxygen saturation, oximetry 98 % [facility] pulse rate 62 /min [facility], diastolic 75 mm[Hg] Vi ctoria Ciscothiago blood pressure, systolic 132 mm[Hg] Bonifacio Peckthiago pulse rate #2 81 [facility] blood pressure, fisher tolic, second observation 75 mm[Hg] [facility] blood pressure, syst olic, second observation 156 mm[Hg] [facility] oxygen saturation, oximetry 98 % [facility] pulse rate 81 /min [facility] blood pressure, diastolic 75 mm[Hg] Vi [facility] Ted blood pressure, systolic 156 mm[Hg] Bonifacio [facility] pulse rate #2 84 [facility] blood pressure, fisher tolic, second observation 75 mm[Hg] [facility] blood pressure, syst olic, second observation 136 mm[Hg] [facility] oxygen saturation, oximetry 98 % [facility] pulse rate 84 /min [facility] blood pressure, diastolic 75 mm[Hg] [facility] blood pressure, systolic 136 mm[Hg] [facility] pulse rate #2 82 [facility] blood pressure, fisher tolic, second observation 79 mm[Hg] [facility] blood pressure, syst olic, second observation 119 mm[Hg] [facility] oxygen saturation, oximetry 98 % [facility] pulse rate 82 /min [facility] blood pressure, diastolic 79 mm[Hg] Vi [facility] blood pressure, systolic 119 mm[Hg] Bonifacio yesenia [facility] Body Mass Index (Ratio) 40.38 kg/m2 Aleksandar [...] [in_i] Isael mansfield pulse rate #2 79 [facility] blood pressure, fisher tolic, second observation 84 mm[Hg] [facility], syst olic, second observation 136 mm[Hg] [facility] oxygen saturation, oximetry 98 % [facility] pulse rate 79 /min [place] blood pressure, diastolic 84 mm[Hg] [facility] Tebid blood pressure, systolic 136 mm[Hg] [facility]2 78 [place] blood pressure, fisher tolic, second observation 80 mm[Hg] [facility] blood pressure, syst olic, second observation 135 mm[Hg] [facility] oxygen saturation, oximetry 98 % [facility] pulse rate 78 /min [facility] blood pressure, diastolic 80 mm[Hg] Vi [facility] Tebid blood pressure, systolic 135 mm[Hg] Bonifacio [facility] Tebid pulse rate #2 84 [place] blood pressure, fisher tolic, second observation 87 mm[Hg] [facility] blood [facility], syst olic, second observation 147 mm[Hg] [facility], oximetry 98 % [facility] pulse rate 84 /min [place] d blood pressure, diastolic 87 mm[Hg] [facility] Tebid blood pressure, systolic 147 mm[Hg] Bonifacio yesenia Tebid pulse rate #2 60 [facility] blood pressure, fisher tolic, second observation 82 mm[Hg] [facility], syst olic, second observation 133 mm[Hg] [facility] oxygen saturation, oximetry 98 % [place] Tebid pulse rate 60 /min Ch[place] Tebid blood pressure, diastolic 82 mm[Hg] Vi ctoria Tebid blood pressure, systolic 133 mm[Hg] Bonifacio yesenia Tebid pulse rate #2 63 [place] bid blood pressure, fisher tolic, second observation 77 mm[Hg] Ch[place] Tebid blood pressure, syst olic, second observation 125 mm[Hg] [place] [facility]id oxygen saturation, oximetry 98 % [facility] pulse rate 63 /min [place] Tebid blood pressure, diastolic 77 mm[Hg] Vi gaoria [facility]ebid blood pressure, systolic 125 mm[Hg] [facility] #2 77 [facility] blood [facility], fisher tolic, second observation 74 mm[Hg] [facility] blood pressure, syst olic, second observation 142 mm[Hg] [facility], oximetry 98 % [facility] pulse rate 77 /min [facility] pressure, diastolic 74 mm[Hg] [facility] Tebid blood pressure, systolic 142 mm[Hg] [facility] pulse rate #2 83 [facility] blood pressure, fisher tolic, second observation 76 mm[Hg] Ch[place]o Tebid blood pressure, syst olic, second observation 128 mm[Hg] [place] [facility]ebid oxygen saturation, oximetry 98 % [facility] pulse rate 83 /min [place] Tebid blood pressure, diastolic 76 mm[Hg] Vi gaoria Tebid blood pressure, systolic 128 mm[Hg] Bonifacio yesenia [facility]id pulse rate #2 74 [facility] blood pressure, fisher tolic, second observation 70 mm[Hg] [facility], syst olic, second observation 123 mm[Hg] [place] d oxygen saturation, oximetry 98 % [place] d pulse rate 74 /min [place] d blood pressure, diastolic 70 mm[Hg] Vi ctoria Tebid blood pressure, systolic 123 mm[Hg] Bonifacio yesenia Tebid pulse rate #2 95 [facility] blood pressure, fisher tolic, second observation 82 mm[Hg] [place] d blood pressure, syst olic, second observation 137 mm[Hg] [facility], oximetry 98 % [place] pulse rate 95 /min [place] d blood pressure, diastolic 82 mm[Hg] Vi ctoria Tebid blood pressure, systolic 137 mm[Hg] Bonifacio yesenia Tebid pulse rate #2 81 [place] blood pressure, fisher tolic, second observation 76 mm[Hg] [facility], syst olic, second observation 132 mm[Hg] [facility] oxygen saturation, oximetry 98 % [place] pulse rate 81 /min [place] d blood pressure, diastolic 76 mm[Hg] [facility] Tebid blood pressure, systolic 132 mm[Hg] Bonifacio yesenia Tebid pulse rate #2 74 [place] d blood pressure, fisher tolic, second observation 82 mm[Hg] [facility], syst olic, second observation 128 mm[Hg] [facility] oxygen saturation, oximetry 98 % [place] pulse rate 74 /min [place] d blood pressure, diastolic 82 mm[Hg] Vi [...] [in_i] Uzma Ileana pulse rate #2 79 [place] Tebid blood pressure, fisher tolic, second observation 72 mm[Hg] [place] Tebid blood pressure, syst olic, second observation 130 mm[Hg] [place] [facility]ebid oxygen saturation, oximetry 98 % [facility] pulse [facility] 79 /min [facility], diastolic 72 mm[Hg] Vi ctoria Tebid blood pressure, systolic 130 mm[Hg] Bonifacio yesenia T[facility]id pulse rate #2 81 [place] Tebid blood pressure, fisher tolic, second observation 73 mm[Hg] [place] Tebid blood pressure, syst olic, second observation 127 mm[Hg] [place] Tebid oxygen saturation, oximetry 98 % [place] Tebid pulse rate 81 /min [place] Tebid blood pressure, diastolic 73 mm[Hg] Vi ctoria Tebid blood pressure, systolic 127 mm[Hg] Bonifacio yesenia Tebid pulse rate #2 89 [place] Tebid blood pressure, fisher tolic, second observation 74 mm[Hg] [place] Tebid blood pressure, syst olic, second observation 132 mm[Hg] [place] Tebid oxygen saturation, oximetry 98 % [place] Tebid pulse rate 89 /min [place] Tebid blood pressure, diastolic 74 mm[Hg] Vi ctoria Tebid blood pressure, systolic 132 mm[Hg] Bonifacio yesenia Tebid pulse rate #2 87 [place] Tebid blood pressure, fisher tolic, second observation 79 mm[Hg] [place] Tebid blood pressure, syst olic, second observation 162 mm[Hg] [place] Tebid oxygen saturation, oximetry 98 % [facility] pulse [facility] 87 /min [place] [facility]id blood pressure, diastolic 79 mm[Hg] Vi ctoria Tebid blood pressure, systolic 162 mm[Hg] Bonifacio yesenia Tebid pulse rate #2 88 [place] Tebid blood pressure, fisher tolic, second observation 88 mm[Hg] [place] Tebid blood pressure, syst olic, second observation 166 mm[Hg] [facility], oximetry 98 % [facility] pulse rate 88 /min [place] Tebid blood pressure, diastolic 88 mm[Hg] Vi ctoria Tebid blood pressure, systolic 166 mm[Hg] Bonifacio yesenia Tebid pulse rate #2 77 [place] Tebid blood pressure, fisher tolic, second observation 81 mm[Hg] [place] [facility]id blood pressure, syst olic, second observation 144 mm[Hg] [place] [facility] oxygen saturation, oximetry 98 % [place] [facility]id pulse rate 77 /min [place] [facility]id blood pressure, diastolic 81 mm[Hg] Vi ctoria Tebid blood pressure, systolic 144 mm[Hg] Bonifacio yesenia [facility] pulse rate #2 83 [place] Tebid blood pressure, fisher tolic, second observation 77 mm[Hg] [place] [facility] blood pressure, syst olic, second observation 152 mm[Hg] [facility], oximetry 98 % [facility] pulse rate 83 /min [place] Tebid blood pressure, diastolic 77 mm[Hg] Vi ctoria Tebid blood pressure, systolic 152 mm[Hg] Bonifacio yesenia Tebid pulse rate #2 76 [place] bid blood pressure, fisher tolic, second observation 85 mm[Hg] [place] Tebid blood pressure, syst olic, second observation 148 mm[Hg] [place] [facility]ebid oxygen saturation, oximetry 98 % [place] bid pulse rate 76 /min [place] [facility] blood pressure, diastolic 85 mm[Hg] Vi ctoria Tebid blood pressure, systolic 148 mm[Hg] Bonifacio yesenia [facility] pulse rate #2 69 [place] d blood pressure, fisher tolic, second observation 81 mm[Hg] [facility], syst olic, second observation 154 mm[Hg] [facility], oximetry 98 % [place] pulse rate 69 /min [place] [facility]ebid blood pressure, diastolic 81 mm[Hg] [facility]id blood pressure, systolic 154 mm[Hg] Bonifacio yesenia [facility] pulse rate #2 62 [facility] blood pressure, fisher tolic, second observation 89 mm[Hg] [facility] blood [facility], syst olic, second observation 143 mm[Hg] [facility], oximetry 98 % [facility] pulse rate 62 /min [place] [facility]ebid blood pressure, diastolic 89 mm[Hg] Vi ctoria Tebid blood pressure, systolic 143 mm[Hg] Bonifacio yesenia [facility] pulse rate #2 65 [facility] blood [facility], fisher tolic, second observation 88 mm[Hg] [facility] blood [facility], syst olic, second observation 132 mm[Hg] [facility] oxygen [facility], oximetry 98 % [facility] pulse rate 65 /min [place] [facility]ebid blood pressure, diastolic 88 mm[Hg] Vi gaoria Tebid blood pressure, systolic 132 mm[Hg] Bonifacio yesenia [facility] pulse rate #2 65 [place] bid blood pressure, fisher tolic, second observation 71 mm[Hg] [place] Tebid blood pressure, syst olic, second observation 127 mm[Hg] [place] [facility]ebid oxygen saturation, oximetry 98 % [facility] pulse [facility] 65 /min [place] [facility] blood pressure, diastolic 71 mm[Hg] [facility] blood pressure, systolic 127 mm[Hg] [facility] #2 68 [facility] blood pressure, fisher tolic, second observation 69 mm[Hg] [facility] blood [facility], syst olic, second observation 132 mm[Hg] [facility] oxygen [facility], oximetry 98 % [facility] pulse rate 68 /min [facility] blood [facility], diastolic 69 mm[Hg] [facility]id blood pressure, systolic 132 mm[Hg] [facility] pulse rate #2 72 [facility] blood pressure, fisher tolic, second observation 79 mm[Hg] [place] [facility] blood pressure, syst olic, second observation 134 mm[Hg] [place] [facility] oxygen saturation, oximetry 98 % [facility] pulse rate 72 /min [facility], diastolic 79 mm[Hg] Vi ga[place] [facility]ebid blood pressure, systolic 134 mm[Hg] Bonifacio yesenia [facility] pulse rate #2 80 [facility] blood pressure, fisher tolic, second observation 68 mm[Hg] [facility] blood [facility], syst olic, second observation 129 mm[Hg] [facility] oxygen saturation, oximetry 98 % [facility] pulse rate 80 /min [place] blood pressure, diastolic 68 mm[Hg] Vi ctoria Tebid blood pressure, systolic 129 mm[Hg] Bonifacio brownia Tebid pulse rate #2 88 [facility] blood pressure, fisher tolic, second observation 86 mm[Hg] [place] blood pressure, syst olic, second observation 138 mm[Hg] [facility] oxygen saturation, oximetry 98 % [place] pulse rate 88 /min [place] blood pressure, diastolic 86 mm[Hg] Vi [facility] Ted blood pressure, systolic 138 mm[Hg] Bonifacio brownia Tebid pulse rate #2 88 [facility] blood pressure, fisher tolic, second observation 77 mm[Hg] [facility] blood pressure, syst olic, second observation 156 mm[Hg] [facility] oxygen saturation, oximetry 98 % [facility] pulse rate 88 /min [place] blood pressure, diastolic 77 mm[Hg] Vi [facility] Ted blood pressure, systolic 156 mm[Hg] Bonifacio brownia Tebid pulse rate #2 86 [facility] blood pressure, fisher tolic, second observation 74 mm[Hg] [facility], syst olic, second observation 137 mm[Hg] [facility], oximetry 98 % [facility] pulse rate 86 /min [facility], diastolic 74 mm[Hg] Vi ctoria Tebid blood pressure, systolic 137 mm[Hg] Bonifacio brownia Tebid pulse rate #2 82 [facility] blood pressure, fisher tolic, second observation 67 mm[Hg] [facility] blood pressure, syst olic, second observation 125 mm[Hg] [facility] Body Mass Index (Ratio) 40.31 kg/m2 Darrel Underwood [employer] blood pressure, cuff size large Sh campbell Lemosdall [employer] blood pressure, diastolic 62 mm[Hg] Sh campbell Lemosdall [employer] blood pressure, systolic 130 mm[Hg] She jaye Lemosdall [employer] weight E&M 231.2 [lb_av] Cynthia Underwood [employer] oxygen saturation, oximetry 98 % [facility] pulse rate 82 /min [facility] blood pressure, diastolic 67 mm[Hg] Vi misaeloria blood pressure, systolic 125 mm[Hg] Bonifacio yesenia [facility] blood pressure, diastolic 69 mm[Hg] Ia deo Ortiz blood pressure, systolic 136 mm[Hg] Lizbeth brown Ortiz pulse rate 88 /min [place] [facility] oxygen saturation, oximetry 96 % [place] Ortiz respiratory rate E&M 16 /min [place] Ortiz Body Mass Index (Ratio) 40.27 kg/m2 Carline ren [facility] weight E&M 231 [lb_av] [place] Ortiz blood pressure, diastolic 60 mm[Hg] nola Demecs RN blood pressure, systolic 150 mm[Hg] Phong sta Demecs RN pulse rate 83 /min Coke Demecs R N oxygen saturation, oximetry 98 % Coke Demecs RN respiratory rate E&M 20 /min Coke Demecs RN Body Mass Index (Ratio) 39.40 kg/m2 Phongs ta Demecs RN weight E&M 226 [lb_av] Jaja Demecs R N blood pressure, diastolic 62 mm[Hg] nola Demecs RN blood pressure, systolic 126 mm[Hg] Phong logan Demecs RN pulse rate 89 /min Coke Demecs R N oxygen saturation, oximetry 94 % Coke Demecs RN respiratory rate E&M 16 /min Coke Demecs RN Body Mass Index (Ratio) 39.47 kg/m2 Jennifer still [facility] weight E&M 226.4 [lb_av] Coke Demecs RN blood pressure, diastolic 70 mm[Hg] Kr isty [place]ancock blood pressure, systolic 124 mm[Hg] Wilfredi stkitty [place] pulse rate 97 /min Ruba Cory oxygen saturation, oximetry 97 % Ruba [place] respiratory rate E&M 18 /min Ruba Cory Body Mass Index (Ratio) 39.65 kg/m2 Luis A ty [place] weight E&M 227.4 [lb_av] Ruba Cory blood pressure, diastolic 70 mm[Hg] Yordan Wiggins blood pressure, systolic 140 mm[Hg] Jaqueline Wiggins pulse rate 74 /min Isael [place] oxygen saturation, oximetry 97 % Isael Andersonenson respiratory rate E&M 16 /min Gracy Wiggins Body Mass Index (Ratio) 40.20 kg/m2 Gladis Wiggins weight E&M 230.6 [lb_av] Isael Anderson enson blood pressure, diastolic 60 mm[Hg] Sh erry Kj [employer] blood pressure, systolic 138 mm[Hg] She jaye Lemosdall [employer] pulse rate, standing 78 /min Cynthia Underwood [employer] Body Mass Index (Ratio) 39.23 kg/m2 Darrel Underwood [employer] weight E&M 225.0 [lb_av] Cynthia Cochituate [employer] Body Mass Index (Ratio) 39.44 kg/m2 Darrel Underwood [employer] blood pressure, diastolic 80 mm[Hg] Sh campbell Zepedall [employer] blood pressure, systolic 118 mm[Hg] She rrkitty Zepedall [employer] pulse rate 88 /min Cynthia Underwood [employer] weight E&M 226.2 [lb_av] Cynthia Underwood [employer] Body Mass Index (Ratio) 39.58 kg/m2 Carline ern Ortiz blood pressure, diastolic 71 mm[Hg] Me deo Ortiz blood pressure, systolic 155 mm[Hg] Lizbeth kevin Ortiz pulse rate 92 /min [place] Ortiz oxygen saturation, oximetry 94 % [place] Ortiz respiratory rate E&M 15 /min [place] Ortiz weight E&M 227 [lb_av] [place] Ortiz blood pressure, diastolic 61 mm[Hg] Sh campbell Underwood [employer] blood pressure, systolic 113 mm[Hg] She rrkitty Zepedall [employer] Body Mass Index (Ratio) 36.54 kg/m2 Darrel Underwood [employer] weight E&M 209.6 [lb_av] Cynthia Underwood [employer] Body Mass Index (Ratio) 36.96 kg/m2 Sanz i Nicky blood pressure, diastolic 61 mm[Hg] Ke rri Omeroer blood pressure, systolic 113 mm[Hg] Ker ri Omeroer pulse rate 83 /min Marlene Kelle lder oxygen saturation, oximetry 98 % Marlene Omeroer respiratory rate E&M 17 /min Marlene Michael escobedo weight E&M 212 [lb_av] Marlene Gruenenfe lder Body Mass Index (Ratio) 35.98 kg/m2 Darrel Underwood [employer] weight E&M 205.6 [lb_av] Cynthia Underwood [employer] Body Mass Index (Ratio) 37.27 kg/m2 Darrel Underwood [employer] weight E&M 213 [lb_av] Cynthia Underwood [employer] Body Mass Index (Ratio) 37.13 kg/m2 Darrel Underwood [employer] weight E&M 212.2 [lb_av] Cynthia Underwood [employer] blood pressure, diastolic 68 mm[Hg] Sh campbell Zepedall [employer] blood pressure, systolic 122 mm[Hg] She jaye Underwood [employer] Body Mass Index (Ratio) 37.27 kg/m2 Darrel Underwood [employer] weight E&M 213 [lb_av] Cynthia Underwood [employer] blood pressure, diastolic 72 mm[Hg] Sh campbell Zepedall [employer] blood pressure, systolic 122 mm[Hg] She jaye Underwood [employer] Body Mass Index (Ratio) 37.27 kg/m2 Darrel Underwood [employer] pulse rate 72 /min Cynthia Underwood [employer] respiratory rate E&M 18 /min Cynthia Underwood [employer] weight E&M 213 [lb_av] Cynthia Underwood [employer] blood pressure, diastolic, left arm 82 mm [...] NP weight E&M 197 [lb_av] Les awan [employer] height E&M 63.5 [in_i] Les awan [employer] blood pressure, diastolic 75 mm[Hg] Yordan george [...] [place] oxygen saturation, oximetry 97 % Jose lKine pulse rate 82 /min Jose Kline blood [...] [place] oxygen saturation, oximetry 96 % Jose Kilne pulse rate 99 /min Jose Kline blood [...] dy Kline pulse rate #2 90 [facility] blood pressure, fisher tolic, second observation 91 mm[Hg] [facility] blood pressure, syst olic, second observation 153 mm[Hg] [facility] oxygen saturation, oximetry 97 % [facility] pulse rate 87 /min [facility] blood pressure, diastolic 82 mm[Hg] [facility] blood pressure, systolic 143 mm[Hg] [facility] pulse rate #2 75 Jose Loreherso n [...] iron binding capacity, unsaturated 216 ug/dL [facility] [phone]/06 /07 iron binding capacity, total 285 ug/dL [facility] [phone]/06 /07 lipoprotein, beta, serum, point, quantitative, calculated 34 mg/dL [facility] 0-99 very low density lipoproteins 21 mg/dL [facility] 5-40 HDL cholesterol, serum 54 mg/dL [facility] >39 triglyceride, serum, random 104 mg/dL [facility] 0-149 cholesterol, serum 109 mg/dL [facility] [phone]/09 /29 pro brain natriuretic peptide 135 pg/mL [facility] 0-450 international normalized ratio (INR) 1.0 [facility] 0.9-1.1 prothrombin time (patient) 9.9 Seconds [facility] 9.0-11.5 platelet count 163 Thousand/uL [facility] [phone]/09 /07 Absolute Basophils 0.0 cells/uL [facility] 0.0-0.2 [...] [facility] 3.5-5.1 sodium, serum 143 mmol/L [facility] [phone]/09 /07 creatinine, serum 0.8 mg/dL [facility] 0.5-0.9 [...] cell distribution width, size density 54.8 fL [facility] - immature granulocytes, percentage of total cells, [...] - 3.9 mean platelet volume 12.2 (?) [facility] - platelet count 180.0 THOUSAND/UL [facility] [...] - 23.0 blood glucose, random 82.0 mg/dL [facility] 74.0 - 99.0 red blood cell distribution width, size density 48.1 fL [facility] - immature granulocytes, percentage of total cells, blood 0.8 % [facility] - nucleated red blood cells as percent of blood leukocytes 0.0 % [facility] - red blood cell (erythrocyte) count, [...] triglyceride, target level 150 mg/dL Cynthia Kj [employer] HDL cholesterol, serum, target level 40 mg/dL Cynthia Cochituate [employer] LDL target level 70 mg/dL Cynthia Kj [employer] cholesterol, target level 200 mg/dL Cynthia Cochituate [employer] cholesterol/HDL ratio, serum 3.0 Cynthia Kj [employer] triglyceride, serum, fasting 252 mg/dL Cynthia Kj [employer] HDL cholesterol, serum 52 mg/dL Cynthia Kj [employer] LDL cholesterol, serum 53 mg/dL Cynthia Cochituate [employer] cholesterol, serum 155 mg/dL Cynthia Cochituate [employer] triglyceride, target level 150 mg/dL Cynthia Cochituate [employer] HDL cholesterol, serum, target level 40 mg/dL Cynthia Cochituate [employer] LDL target level 70 mg/dL Cynthia Cochituate [employer] cholesterol, target level 200 mg/dL Cynthia Kj [employer] cholesterol/HDL ratio, serum 3.4 Cynthia Cochituate [employer] triglyceride, serum, fasting 153 mg/dL Cynthia Kj [employer] HDL cholesterol, serum 43 mg/dL Cynthia Cochituate [employer] LDL cholesterol, serum 71 mg/dL Cynthia Kj [employer] cholesterol, serum 144 mg/dL Cynthia Cochituate [employer] cholesterol/HDL ratio, serum 3.0 Cynthia Cochituate [employer] triglyceride, serum, fasting 84 mg/dL Cynthia Cochituate [employer] HDL cholesterol, serum 50 mg/dL Cynthia Cochituate [employer] LDL cholesterol, serum 84 mg/dL Cynthia Kj [employer] cholesterol, serum 154 mg/dL Cynthia Cochituate [employer] TOTAL NON-HDL-C (LDL VLDL) 140 Cynthia Cochituate [employer] cholesterol/HDL ratio, serum 4.9 Cynthia Cochituate [employer] cholesterol, serum 176 mg/dL Cynthia Cochituate [employer] Normal triglyceride, target level 150 mg/dL Cynthia Kj [employer] HDL cholesterol, serum, target level 40 mg/dL Cynthia Kj [employer] triglyceride, serum, fasting 202 mg/dL Cynthia Cochituate [employer] High HDL cholesterol, serum 36 mg/dL Cynthia Kj [employer] Low LDL cholesterol, serum 100 mg/dL Cynthia Kj [employer] High LDL target level 70 mg/dL Cynthia Kj [employer] cholesterol, target level 200 mg/dL Cynthia Cochituate [employer] triglyceride, target level 150 mg/dL Cynthia Cochituate [employer] HDL cholesterol, serum, target level 40 mg/dL Cynthia Cochituate [employer] LDL target level 70 mg/dL Cynthia Kj [employer] cholesterol, target level 200 mg/dL Cynthia Cochituate [employer] TOTAL NON-HDL-C (LDL VLDL) 142 Cynthia Kj [employer] cholesterol/HDL ratio, serum 5.3 Cynthia Kj [employer] triglyceride, serum, fasting 229 mg/dL Cynthia Cochituate [employer] High HDL cholesterol, serum 33 mg/dL Cynthia Cochituate [employer] Low LDL cholesterol, serum 96 mg/dL Cynthia Kj [employer] High cholesterol, serum 175 mg/dL Cynthia Cochituate [employer] TOTAL NON-HDL-C (LDL VLDL) 129 Cynthia Kj [employer] cholesterol/HDL ratio, serum 4.2 Cynthia Cochituate [employer] cholesterol, serum 169 mg/dL Cynthia Cochituate [employer] triglyceride, target level 150 mg/dL Cynthia Kj [employer] HDL cholesterol, serum, target level 40 mg/dL Cynthia Cochituate [employer] triglyceride, serum, fasting 187 mg/dL Cynthia Cochituate [employer] High HDL cholesterol, serum 40 mg/dL Cynthia Kj [employer] Normal LDL cholesterol, serum 92 mg/dL Cynthia Kj [employer] High LDL target level 70 mg/dL Cynthia Cochituate [employer] cholesterol, target level 200 mg/dL Cynthia Kj [employer] TOTAL NON-HDL-C (LDL VLDL) 99 Cynthia Kj [employer] cholesterol/HDL ratio, serum 3.9 Cynthia Cochituate [employer] cholesterol, serum 131 mg/dL Cynthia Kj [employer] Normal triglyceride, target level 150 mg/dL Cynthia Kj [employer] HDL cholesterol, serum, target level 40 mg/dL Cynthia Kj [employer] triglyceride, serum, fasting 341 mg/dL Cynthia Cochituate [employer] High HDL cholesterol, serum 34 mg/dL Cynthia Kj [employer] Low LDL cholesterol, serum 30 mg/dL Cynthia Kj [employer] Normal LDL target level 70 mg/dL Cynthia Cochituate [employer] cholesterol, target level 200 mg/dL Cynthia Kj [employer] TOTAL NON-HDL-C (LDL VLDL) 99 Cynthia Kj [employer] alanine aminotransferase (SGPT), serum 39 1/L Cynthia Kj [employer] aspartate aminotransferase (SGOT), serum 55 1/L Cynthia Kj [employer] cholesterol/HDL ratio, serum 3.8 Cynthia Kj [employer] cholesterol, serum 134 mg/dL Cynthia Kj [employer] Normal triglyceride, target level 150 mg/dL Cynthia Cochituate [employer] HDL cholesterol, serum, target level 40 mg/dL Cynthia Kj [employer] triglyceride, serum, fasting 152 mg/dL Cynthia Cochituate [employer] High HDL cholesterol, serum 36 mg/dL Cynthia Kj [employer] Low LDL cholesterol, serum 68 mg/dL Cynthia Cochituate [employer] Normal LDL target level 70 mg/dL Cynthia Zepedall [employer] cholesterol, target level 200 mg/dL Cynthia Underwood [employer] platelet count 164 10*3/mm3 [facility] hematocrit, blood 34.6 % [facility] lipoprotein, beta, serum, point, quantitative, calculated 77 mg/dL [facility] cholesterol, serum 144 mg/dL [facility] creatinine, serum 0.60 mg/dL [facility] potassium, serum 5.1 mmol/L [facility] sodium, serum 137 mmol/L [facility] thyroid stimulating hormone, serum 1.595 u[IU]/mL [facility] Mina thyroxine, serum, free 0.15 ng/dL [facility] triiodothyronine (T3), serum 233.0 ng/dL [facility] globulins, serum, total 4.3 g/dL [facility] estimated glomerular filtration rate 91.3 mL/min [facility] albumin/globulin ratio, serum 0.9 [facility] protein, total, serum 8.3 g/dL [facility] albumin, serum 4.0 g/dL [facility] bilirubin, serum, total 0.4 mg/dL [facility] alkaline phosphatase, serum 60 1/L [facility] alanine aminotransferase (SGPT), serum 57 1/L [facility] aspartate aminotransferase (SGOT), serum 67 1/L [facility] calcium, serum 9.1 mg/dL [facility] blood glucose, fasting 175 mg/dL [facility] creatinine, serum 0.7 mg/dL [facility] urea nitrogen, blood 23 mg/dL [facility] carbon dioxide, serum, total 28 mmol/L [facility] chloride, serum 105 mmol/L [facility] potassium, serum 4.3 mmol/L [facility] sodium, serum 136 mmol/L [facility] TOTAL NON-HDL-C (LDL VLDL) 120 Lacretijohnny BlairCarpenter NP alanine aminotransferase (SGPT), serum 30 1/[facility] aspartate aminotransferase ([facility]OT), serum 36 1/L [facility] cholesterol/HDL ratio, serum 4 Lacretijohnny BlairCarpenter NP triglyceride, serum, fasting 167 mg/dL [facility] HDL cholesterol, serum 40 mg/dL [facility] LDL cholesterol, serum 86 mg/dL [facility] cholesterol, serum 159 mg/dL [facility] triglyceride, target level 150 mg/dL [facility] HDL cholesterol, serum, target level 40 mg/dL [facility] LDL target level 70 mg/dL [facility] cholesterol, target level 200 mg/dL [facility] creatine kinase, serum <0.2 [facility] Estimated Glomerular Filtration Rate (calc) >60 [facility] calcium, serum 9.1 mg/dL [facility] creatinine, serum 0.50 mg/dL [facility] urea nitrogen, blood 23 mg/dL [facility] carbon dioxide, serum, total 28 mmol/L [facility] chloride, serum 100 mmol/L [facility] potassium, serum 4.4 mmol/L [facility] sodium, serum 138 mmol/L [facility] troponin I <0.02 [facility] triglyceride, serum, fasting 121 mg/dL [facility] HDL cholesterol, serum 46 mg/dL [facility] LDL cholesterol, serum 103 mg/dL [facility] cholesterol, serum 175 mg/dL [facility] PTT patient 25 s [facility] prothrombin time (patient) 12.7 s [facility] international normalized ratio (INR) 1.0 [facility] platelet count 202 10*3/uL [facility] red blood cell distribution width 13.3 % [facility] mean corpuscular hemoglobin concentration, RBC 34.0 g/dL [facility] mean corpuscular hemoglobin, RBC 29.9 pg [facility] mean corpuscular volume, RBC 87.9 fL [facility] hematocrit, blood 35.4 % [facility] hemoglobin, blood 12.1 g/dL [facility] erythrocyte (RBC) count 4.03 10*6/mm3 [facility] monocyte count, blood 0.3 10*3/mm3 [facility]ina lymphocyte count, blood 2.2 10*3/mm3 [facility] monocytes as percent of blood leukocytes 4.7 % [facility] lymphocytes as percent of blood leukocytes 32.7 % [facility]ina leukocyte count, blood 6.8 10*3/mm3 [facility]ina nitrate usage 0 Sarah Welch HISTORY [...] TAB. DAILY 09/20 - 08/04 Cynthia Underwood [employer] FEMHET completed 03/03 tab one tab daily [...] 5 mg twice daily - 08/06 Melissa [place] NEXIUM 40 MG ORAL CAPSULE DELAYED RELEASE [...] MD drug use no Isabel Ventimig della [facility] alcohol use no Isabel Ventimig della [facility] smoking status Former smoker Isabel Venti miglia [facility] social history E&M Marital Statu s: L [...] averag e drinks per day yes Ting Fran chewing tobacco use Never Catherin e [place] smoking, year quit 1997 [place] smoking history, tot al pack/year 35 [place]ing [place] smoking history, tot al pack/day 1 [place]ing [place] cigarette use yes Ting [place] smoking status Former smoker Ting Ot is [...] Ileana chewing tobacco use Never Cynthia lewislouis [employer] smoking status Former smoker Cynthia Zepeda marcus [employer] social history E&M Marital Statu s: L [...] [place] smoking status Former smoker Cynthia velazquez [employer] smoking/tobacco cess ation, patient education and counseling yes Cynthia Underwood [employer] smoking status Former smoker Cynthia velazquez [employer] quit smoking, stage quit David winslow MD [...] average drinks per day social basis only [facility] FUNCTIONAL STATUS Date Observation Value Provider HRA, CV Assess/Plan, Angina (inactive) Management Plan continue current therapy David Vanegas MD HRA, CV Assess/Plan, Angina (inactive) Management Plan continue current therapy Dvaid Vanegas MD HRA, CV Assess/Plan, Angina (inactive) [...] level yes Chayo Tebid energy level yes [place] Tebid energy level yes [place] Tebid energy level yes [place] Tebid energy level yes [place] Tebid energy level yes [place] Tebid energy level yes [place] Tebid energy level yes [place] Tebid energy level yes Chayo Tebid energy level yes Chayo Tebid energy level yes Chayo Tebid energy level yes Chayo Tebid energy level yes [place] Tebid energy level yes Chayo Tebid energy level yes [place] Tebid energy level yes Chayo Tebid energy level yes Chayo Tebid energy level yes [place] Tebid energy level yes [place] Tebid energy level yes [place] Tebid energy level yes [place] Tebid energy level yes [place] Tebid energy level yes [place] Tebid energy level yes [place] Tebid energy level yes [place] Tebid energy level yes [place] Tebid energy level yes [place] Tebid energy level yes [place] Tebid energy level yes [place] Tebid energy level yes [place] Tebid energy level yes [place] Tebid energy level no [place] Tebid energy level no [place] Tebid energy level no [place] Tebid assessment of judgme nt and insight [...] person. Mood and affect are normal. [place] iVera RN assessment of judgme nt and insight E&M Alert and oriented to time, place and person. Mood and affect are normal. [place] Viera RN FAMILY HISTORY Family Member Condition Mother Family History of Di abetes: INSURANCE PROVIDERS Payer name Policy type / Coverage type [place] [employer] party ID [place] [id number] 9 [facility] [place] [facility] [id number] ADVANCE DIRECTIVES Name Date DISCUSSED - NO DECISION MADE TREATMENT PLAN Date Name Performer [id number],C,nayeli cannon MD [id number],S,weight loss e ncouraged. [facility] [id number],S, H er updated medication list for this problem includes: Atorvastatin 40 Mg Tablet (Atorvastatin) ..... Take 1 tablet daily at bedtime [facility] [id number],C,B P well controlled per home RPM average [...] once a day take 1 tablet daily [facility] [id number],S,H as CPAP and is compliant. concern that needs updated settings given progressive SOB. Will repeat IHS on CPAP [facility] [id number],C,W ith EF of 65%. Has been unable to tolerate Jardiance. Remains on diuretic. Her BP is well controlled. Will plan [facility] study to see if helps with [...] day take 1 tablet daily Isabel Frankel [facility] [id number],S,O nly mild on recent echo. Will monitor. Isabel Frankel [facility] [id number],W,H as had ongoing progressive SOB that is [...] proper settings. We will also refer for [facility] study H er updated medication list [...] once a day take 1 tablet daily Isbael Frankel [facility] [id number],C,7.4 David cannon MD [id number],B, David turner MD [id number],S, 5 5 David Vanegas MD [id number],S, H eart monitor revealed no arrythmias. SR with no ectopy, pauses. neg hep [place] n eg neg vd for edma David Jacquesa [id number],S, a bi less then .6 with cladicoiatn d ista dz by angio David Jacquesjohnny HANSON [id number],S, n eg rpr and b12 David Jacquesa [id number],S, 1 100 David Jacquesa [id number],S, David Serot a [id number],S, s core 110 N o angina 3 0% distal lad David Jacqeusjohnny HANSON [id number],B, s tii; anemic on iron H AD INFUSIN AND RESOVLED N, HAD COLON, David Jacquesjohnny HANSON [id number],S, David Serot a [id number],S,d ue to ms? 2 97 David Vanegas [id number],S, m odeated ms and midl mr David Vanegas [id number],C,modeated ms a nd midl mr David Vanegas [id number],S,8.2 David Se rota [id number],S, David Serot a [id number],S, 2 97 David Jacquesa [id number],S, H eart monitor revealed no arrythmias. SR with no ectopy, pauses. neg hep [place] n eg neg vd for edma David Vanegas [id number],S, n eg rpr and b12 David Jacquesa [id number],S, a bi less then .6 with cladicoiatn d ista dz by angio David Jacquesjohnny HANSON [id number],S, David Serot a [id number],S, M oderate MS , Mild MR. on echo 03/2021. repeat next year David Vanegas MD [id number],S, s core 110 N o angina 3 0% distal lad David Vanegas MD [id number],B, s tii; anemic on iron H AD INFUSIN AND RESOVLED N, HAD COLON, David Serotjohnny HANSON [id number],S, David Serot a [id number],B, s tii; anemic on iron H AD INFUSIN AND RESOVLED N, HAD COLON, David Romina HANSON [id number],S,8.2 David cannon MD [id number],B,55 David Ser joselin HANSON [id number],S, n eg rpr and b12 David Vanegas MD [id number],S, David Serot a [id number],S,s tii; anemic on iron H AD INFUSIN AND RESOVLED N, HAD COLON, David Romina HANSON [id number],C,6.7 David cannon MD [id number],S,a bi less then .6 with cladicoiatn d ista dz by angio David Vanegas MD [id number],S,s core 110 N o angina 3 0% distal lad David Vanegas MD [id number],S, H eart monitor revealed no arrythmias. SR with no ectopy, pauses. neg hep [place] n eg neg vd for edma ,neg uiacr David Vanegas MD [id number],B, H eart monitor revealed no arrythmias. SR with no ectopy, pauses. David Vanegas MD [id number],S, 2 97 David Vanegas MD [id number],S,efgr 45 Sima Vanegas MD [id number],S, M oderate MS , Mild MR. on echo 03/2021. repeat next year David Vanegas MD [id number],C, 5 .8 F arxiga too expensive, invokana diarhrrea. was on jardiance in the past but thinks she had a reaction as well. C urrently on metformin and insulin Ella Orr NP [id number],C,s tart kerendia H er updated medication list for this problem includes: Metoprolol Succinate 25 Mg Tablet Extended Release 24 Hr (Metoprolol succinate) ..... Take 1 tablet daily Aspirin 81 Mg Tablet,delayed Release (dr/ec) (Aspirin) ..... Take 1 tablet daily Ella Orr NP [id number],C,N o angina 3 0% distal lad Ella Orr NP [id number],C,M oderate MS , Mild MR. on echo 03/2021. repeat next year Ellatito Orr NP [id number],C,H eart monitor revealed no arrythmias. SR with no ectopy, pauses. Ella Orr NP [id number],C,mod ms with m ild mr David Vanegsa MD [id number],S, David turner MD [id number],S, r echeck echo to eval David Vanegas MD [id number],S,297 David cannon MD [id number],S,1100 David S goldy [id number],S,n eg hep [place] n eg neg vd for edma ,neg uiacr David Vanegas MD [id number],C,5.8 David cannon MD [id number],C,dista dz by a peri Vanegas MD [id number],B,andersojn bb increaed David Vanegas MD [id number],S, n eg rpr and b12 David Vanegas MD [id number],S, David turner MD [id number],S, F ollows with pulmonary David Vanegas MD [id number],S, 3 0% distal lad David Vanegas MD [...] sherman , ms pregresson by echo at [facility] ms and rm bye shawanda 2022 [...] titration:nayeli turner MD Cardiology:weight loss encourage d. [facility] Cardiology: H er updated medication list for this problem includes: Atorvastatin 40 Mg Tablet (Atorvastatin) ..... Take 1 tablet daily at bedtime [facility] Cardiology:BP well c ontrolled per home RPM [...] once a day take 1 tablet daily [facility] Cardiology:Has CPAP and is compliant. concern that needs updated settings given progressive SOB. Will repeat [facility] on CPAP [facility] Cardiology:With EF o f 65%. Has been unable to tolerate Jardiance. Remains on diuretic. Her BP is well controlled. Will plan [facility] study to see if helps with [...] once a day take 1 tablet daily [facility] Cardiology:Only mild on recent e cho. Will monitor. [facility] Cardiology:Has had o ngoing progressive SOB that [...] proper settings. We will also refer for [facility] H er updated medication list for [...] day take 1 tablet daily Isabel Frankel [employer] Cardiology:7.4 David Vanegas MD Cardiology David Vanegas [...] next year David Vanegas MD Cardiology-seen with [employer]CR[employer]: 5 .8 F arxiga too expensive, invokana diarhrrea. was on jardiance in the past but thinks she had a reaction as well. C urrently on metformin and insulin Ella Orr NP Cardiology-seen with [employer]CR[employer]ER:sherri jay updated medication list for this problem includes: Metoprolol Succinate 25 Mg Tablet Extended Release 24 Hr (Metoprolol succinate) ..... Take 1 tablet daily Aspirin 81 Mg Tablet,delayed Release (dr/ec) (Aspirin) ..... Take 1 tablet daily Ella Orr NP Cardiology-seen with [employer]CR[employer]ER:No angina 3 0% distal lad Ella Orr NP Cardiology-seen with [employer]CR[employer] LO[employer]ER:Moderate MS , Mild MR. on echo 03/2021. repeat next year Ella Orr NP Cardiology-seen with [employer]CR[employer] LO[employer]ER:Heart monitor revealed no arrythmias. SR with no ectopy, pauses. Ella Orr NP :mod ms with mild mr David Dawit still MD TeleHealth David Vanegas MD TeleHealth: r echeck echo to eval David Vanegas MD TeleHealth:297 David Vanegas MD TeleHealth:1100 David Vanegas MD TeleHealth:neg hep p anek n eg neg vd for edma ,neg uiacr Daivd Vanegas MD TeleHealth:5.8 David Vanegas MD TeleHealth:dista [...] Cynthia Alcaraz DEISY Cardiology Follow up Cynthia gibbonspamela OLIVAS Cardiology: 3 0% distal lad David [...] daily at bedtime Lovaza 1 Gm Caps (Kifgy-3-irwp ethyl esters) ..... 2 capsules daily David Vanegas MD Cardiology - [employer] ramon jones:Patient's endocrine MD had placed her [...] breath, fatigue, dizziness, nausea, or diaphoresis) of [place] [employer] Class III (defined as symptoms with everyday living activities, i.e. moderate limitation) or [place] [employer] Class IV (defined as inability [...] this problem includes: Lovaza 1 Gm Caps (Rscym-5-zyba ethyl esters) ..... 2 capsules daily C [...] this problem includes: Lovaza 1 Gm Caps (Zbgxh-9-klrb ethyl esters) ..... 2 capsules daily C [...] this problem includes: Lovaza 1 Gm Caps (Kjjul-1-kfzt ethyl esters) ..... 2 capsules daily C HOL: 155 (08/05/2015) LDL: 53 (08/05/2015) HDL: 52 (08/05/2015) T (08/05/2015) C HOL (goal): 200 (08/05/2015) LDL (goal): 70 (08/05/2015) HDL (goal): 40 (08/05/2015) TG (goal): 150 (08/05/2015) David Vanegas MD Cardiology:many sx will borrego Sima kitty Vanegas MD Cardiology:may need iron infusio [...] this problem includes: Lovaza 1 Gm Caps (Yvxml-8-wsqd ethyl esters) ..... 2 capsules daily Cynthia [...] this problem includes: Lovaza 1 Gm Caps (Fmaxs-9-seuz ethyl esters) ..... 2 capsules daily Cynthia [...] this problem includes: Lovaza 1 Gm Caps (Ckqrz-9-xgwx ethyl esters) ..... 2 capsules daily Cynthia [...] this problem includes: Lovaza 1 Gm Caps (Cihwi-7-cgvn ethyl esters) ..... 2 capsules daily Patient [...] daily Orders: Full PFT (*) S pirometry (CPT-85033) C omplete Echo (CPT-87503) e Prescribe - Check this box if eRx is used (CPT-G8553) E CP Commercial (CPT-00633) David Vanegas MD follow up David Vanegas MD follow up: O rders: F ull PFT (*) S pirometry (CPT-83312) C omplete Echo (CPT-07442) e Prescribe - Check this box if eRx is used (CPT-G8553) E CP Commercial (CPT-34074) David Vanegas MD follow up: T he following medications were removed from the medication list: Aspirin 81 Mg Tabs (Aspirin) ..... One tab. daily Her updated medication list for this problem includes: Atenolol 25 Mg Tabs (Atenolol) ..... One tab. daily Orders: F ull PFT (*) S pirometry (CPT-18991) C omplete Echo (CPT-69984) e Prescribe - Check this box if eRx is used (CPT-G8553) E CP Commercial (CPT-33005) David Vanegas MD follow up David Vanegas MD follow up David Vanegas MD follow up: O rders: F ull PFT (*) S pirometry (CPT-08891) C omplete Echo (CPT-99629) e Prescribe - Check this box if eRx is used (CPT-G8553) E CP Commercial (CPT-43119) David Vanegas MD follow up: T he following medications were removed from the medication list: Aspirin 81 Mg Tabs (Aspirin) ..... One tab. daily Her updated medication list for this problem includes: Atenolol 25 Mg Tabs (Atenolol) ..... One tab. daily Orders: F ull PFT (*) S pirometry (CPT-64959) C omplete Echo (CPT-47686) e Prescribe - Check this box if eRx is used (CPT-G8553) E CP Commercial (CPT-23750) David Vanegas MD follow up: O rders: F ull PFT (*) S pirometry (CPT-59341) C omplete Echo (CPT-08061) e Prescribe - Check this box if eRx is used (CPT-G8553) E CP Commercial (CPT-83057) David Vanegas MD follow up: H er [...] ..... One tab. daily David Vanegas MD [facility] only, use bare metal stent David Vanegas MD [facility] only, use bare metal stent: H er updated medication list for this problem includes: Liothyronine Sodium 25 Mcg Tabs (Liothyronine sodium) ..... Take one tablet twice daily David Vanegas MD [facility] only, use bare metal stent David Vanegas MD [facility] only, use bare metal stent David Vanegas MD [facility] only, use bare metal stent: H [...] up: O rders: C ardiopulmonary Stress Test (CPT-11130) E CP Commercial (CPT-77880) C omplete Echo (CPT-90447) S tress Test - Adenosine (53021) David Vanegas MD follow up: O rders: C ardiopulmonary Stress Test (CPT-63180) E CP Commercial (CPT-10227) C omplete Echo (CPT-27535) S tress Test - Adenosine (32134) David Vanegas MD follow up David Vanegas MD follow up David Vanegas MD follow up David Vanegas MD follow up David Vanegas MD follow up David Vanegas MD follow up: O rders: C ardiopulmonary Stress Test (CPT-86435) E CP Commercial (CPT-82297) C omplete Echo (CPT-96652) S tress Test - Adenosine (53853) David Vanegas MD follow up: H er [...] ormal pulmonic valve. (10/19/2007) Orders: S pirometry (CPT-78177) C omplete Echo (CPT-78985) S tress Test - Adenosine (23954) David Vanegas MD follow up: B P [...] (Atenolol) ..... One tab. daily Orders: Spirometry (CPT-44040) C omplete Echo (CPT-78925) S tress Test - Adenosine (95486) David Vanegas MD follow up David Vanegas MD follow up: O rders: S pirometry (CPT-68579) C omplete Echo (CPT-57500) S tress Test - Adenosine (62907) David Vanegas MD follow up: H er [...] Normal pulmonic valve. (10/19/2007) Orders: S pirometry (CPT-33066) C omplete Echo (CPT-50716) S tress Test - Adenosine (06416) David Vanegas MD follow up: O rders: S pirometry (CPT-01993) C omplete Echo (CPT-42005) S tress Test - Adenosine (79690) David Vanegas MD follow up: H er updated medication list for this problem includes: Aspirin 81 Mg Tabs (Aspirin) ..... One tab. daily Atenolol 25 Mg Tabs (Atenolol) ..... One tab. daily Orders: Spirometry (CPT-64025) C omplete Echo (CPT-72971) S tress Test - Adenosine (38246) David Vanegas MD follow up: H er [...] Cl: 100 (07/25/2010) O rders: S pirometry (CPT-48136) C omplete Echo (CPT-74211) S tress Test - Adenosine (07758) David Vanegas MD follow up: H er [...] P TT: 25 (07/25/2010) Orders: S pirometry (CPT-68736) C omplete Echo (CPT-28048) S tress Test - Adenosine (22498) David Vanegas MD follow up David Vanegas [...] Vanegas MD routine: O rders: E KG (CPT-85219) David Vanegas MD routine David Vanegas MD routine: H er updated medication list for this problem includes: Aspirin 81 Mg Tabs (Aspirin) ..... One tab. daily Atenolol 25 Mg Tabs (Atenolol) ..... One tab. daily David Vanegas MD routine David Vanegas MD routine David Vanegas MD ECP tdvrvz-ko-pwq pa in greater in right: H er updated medication list for this problem includes: Levothroid 150 Mcg Tabs (Levothyroxine sodium) ..... 1 tablet dailly David Vanegas MD ECP pkjtpu-wt-prq pa in greater in right: H er [...] BP: 125/71 (07/07/2008) David Vanegas MD ECP tizvxx-bm-kyd pa in greater in right: H er [...] filling pressures. (11/26/2003) David Vanegas MD ECP oyeyvh-ss-yzd pa in greater in right: H er [...] ormal pulmonic valve. (10/19/2007) Orders: E KG (CPT-24729) David Vanegas MD ECP qsonpu-kz-hsw pa in greater in right: H er updated medication list for this problem includes: Atenolol 25 Mg Tabs (Atenolol) ..... One tab. daily Aspirin 81 Mg Tabs (Aspirin) ..... One tab. daily BP today: 128/78 P rior BP: 125/71 (07/07/2008) David Vanegas MD ECP nwusrs-kv-cwv pain greater i n right David Vanegas MD ECP ublkhh-nh-let pa in greater in right: H er updated medication list for this problem includes: Lescol Xl 80 Mg Tb24 (Fluvastatin sodium) ..... 1 tablet daily BP today: 128/78 Prior BP: 125/71 (07/07/2008) David Vanegas MD ECP rqnqhq-rz-djf pain greater i n right David Vanegas MD ECP eiaxqu-mm-jwv pa in greater in right: H er updated medication list for this problem includes: Atenolol 25 Mg Tabs (Atenolol) ..... One tab. daily Aspirin 81 Mg Tabs (Aspirin) ..... One tab. daily David Vanegas MD office visit: H er updated medication list for this problem includes: Levothroid 150 Mcg Tabs (Levothyroxine sodium) ..... 1 tablet daimarcusy David Vanegas MD office visit: T he [...] daily Orders: H olter Monitor 24 Hr (CPT-16921) BP today: 138/80 Prior BP: / () [...] Orders: X -Ray, Chest, PA & Lateral (CPT-79013) H olter Monitor 24 Hr (CPT-96261) David Vanegas MD rattle : B P [...] pressure of 18mmHg. (10/26/2006) Orders: E KG (CPT-45629) E CP Commercial (CPT-89180) C omplete Echo (CPT-70620) BP today: 138/80 Prior BP: / () [...] Echo Sleep Study Titratio n DLCO - 59806 FRC - 64069 FVC - 14001 Stress Cardiac PET-C T Complete Echo Stress [...] Cath - Right - [facility] DLCO - 08256 FRC - 61018 FVC - 64767 PROTHROMBIN TIME WIT H INR CBC (INCLUDES [...] completed FVC / MVV with bronchodilator - 25934 David Vanegas MD completed BLOOD COUNT HEMOGLOBIN David Vanegas MD completed FRC - 50062 David Vanegas MD complet ed SpO2 w/o 6min walk/titration David Vanegas MD completed DLCO - 10896 David Vanegas MD comple roxanne EKG David Vanegas MD complete d EKG David Vanegas MD complete d EKG David Vanegas MD complete d EKG David Vanegas MD complete d EKG David Vanegas MD complete d SNOMED-CT: 831870691 892677 Current Medications Documented David Vanegas MD completed FVC / MVV with bronchodilator - 14355 David Vanegas MD completed BLOOD COUNT HEMOGLOBIN David Vanegas MD completed FRC - 40437 David Vanegas MD complet ed SpO2 - 74740 David Vanegas MD comple roxanne DLCO - 23844 David Vanegas MD comple roxanne SNOMED-CT: 147076380 197450 Current Medications Documented David Vanegas MD completed CT- Coronary CA score David Vanegas MD completed EKG David Vanegas MD complete d SNOMED-CT: 857601460 505541 Current Medications Documented David Vanegas MD completed SNOMED-CT: 609530098 453029 Current Medications Documented David Vanegas MD completed SNOMED-CT: 20347587 Physical Exam, Performed: Pulse Exam of Foot David Vanegas MD completed EKG David Vanegas MD complete d SNOMED-CT: 880185799 144866 Current Medications Documented David Vanegas MD completed SNOMED-CT: 78640697 Physical Exam, Performed: Pulse Exam of Foot David Vanegas MD completed EKG David Vanegas MD complete d SNOMED-CT: 562015558 267080 Current Medications Documented David Vanegas MD completed [...]
--- OUTSIDE RECORDS SUMMARY | 2024-06-17 17:00 | XMS_ITS | Encounter Summary ---
Author Organization [facility] Address [address] [place] [address] Phone Care Team Providers Care Entry Level Assistant Manager Name Role Phone Bishop Starr MD Unavailable Charles Armendariz DO Primary Care Provider Reason for Visit * Reason Comments Medication Refill Encounter Details Date Type Department Care Team (Late st Contact Info) Description 06/28/2019 Refill [facility] [address] [place] [phone] Bishop Starr MD [address] [place] [address] Medication Refill Social History Tobacco [...] on filedocumented in this encounter Care Teams Entry Level Assistant Manager Relationship Specialty Start Date End Date Charles Armendariz DO [employer] [place] [address] PCP - General Internal Medicine 11/05/15 Bishop Starr MD Consulting Physician Pulmonary Disease 10/14/15 documented as of this encounter
--- OUTSIDE RECORDS SUMMARY | 2024-06-17 17:01 | XMS_ITS | Referral Summary ---
Author Organization [facility] Address [id number] [place] [phone] Care Team Providers Care Jewel Grinder Name Role Phone Charles Armendariz DO Primary Care Provider [phone] David Vanegas MD Unavailable [phone] Encounters Date Type Department Care Team Description 05/16/2024 9:40 AM CDT Office Visit [facility] Infectious Diseases [address] [place] [phone] Ana Laura Ramires NP LTBI (latent tuberculosis infection) (Primary Dx) 05/08/2024 Orders Only [facility] Diabetes and Endocrinology [address] [place] [phone] ProviderOliver MD 05/02/2024 Results Follow-Up [facility] Diabetes and Endocrinology [address] [place] [phone] Stacy Hernandez NP 04/30/2024 2:40 PM GAS TRUCK DRIVER - 04/30/2024 11:59 PM GAS TRUCK DRIVER Hospital Encounter [address] [address] Type 2 diabetes mellitus with hyperglycemia, with long-term current use of insulin (HCC); Hypertension associated with type 2 diabetes mellitus (HCC); Hyperlipidemia associated with type 2 diabetes mellitus (HCC); Hypothyroidism, unspecified type Discharge Disposition: Discharge to home or self care 04/30/2024 2:45 PM GAS TRUCK DRIVER Lab [facility] Outpatient Lab at [address] [phone] Type 2 diabetes mellitus with hyperglycemia, with long-term current use of insulin (HCC) (Primary Dx) 04/30/2024 Orders Only [facility] Diabetes and Endocrinology [address] [place] [phone] ProviderOliver MD 04/30/2024 2:00 PM GAS TRUCK DRIVER Office Visit [facility] Diabetes and Endocrinology [address] [place], [place] [phone] Stacy Hernandez NP Type 2 diabetes mellitus with hyperglycemia, with long-term current use of insulin (HCC) (Primary Dx); Hyperlipidemia associated with type 2 diabetes mellitus (HCC); Diabetic polyneuropathy associated with type 2 diabetes mellitus (HCC); Hypertension associated with type 2 diabetes mellitus (HCC); Hypothyroidism, unspecified type 04/26/2024 Telephone [facility] Diabetes and Endocrinology [address] [place] [phone] Stacy Hernandez NP Forms/questionnaires (CAR INSPECTOR) 04/09/2024 Telephone [facility] Infectious Diseases [address] [place] [address] [place] [phone] Chayo Alcazar LCSW 04/04/2024 Telephone [facility] Rheumatology [address] [place] [address] Floor [address] [place] [phone] Arnulfo Krishnamurthy 04/02/2024 11:10 AM GAS TRUCK DRIVER Clinical Support [facility] [address] [place] [address] [place] [phone] Other specified disorders of bone density and structure, left thigh (Primary Dx); Rheumatoid arthritis involving multiple sites with positive rheumatoid factor (HCC); 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; nursing home (current) use of anticoagulants 04/02/2024 11:40 AM GAS TRUCK DRIVER Office Visit [facility] Rheumatology [address] [place] [address] Floor [address] [place] [phone] Shawanda De La Cruz NP Rheumatoid arthritis involving multiple sites with positive rheumatoid factor (HCC) (Primary Dx); High risk medication use from Last 3 Months Allergies Active Allergy Reactions Criticality Noted Date Comments Ciprofloxacin Nausea only Low 09/08/2022 Daptomycin Diarrhea Low 06/29/2020 Doxycycline Unknown Low 09/19/2019 Canagliflozin Diarrhea Low 10/28/2021 Empagliflozin Diarrhea Low 04/21/2021 Lisinopril Cough Low 08/13/2018 Semaglutide Diarrhea High 01/27/2021 Povidone-Iodine Rash Medium 05/05/2017 Rtozdqg-Oop-Cpq Reductase Inhibitors Muscle pain Medium 11/05/2020 Valsartan [...] total) by mouth every morning Activ e fm-vyqakbo-cja -iron fm-FA-vitK 18 mg-400 mcg- 25 mcg [...] symptoms. Assessment & Plan (03/15/2024 10:09 AM GAS TRUCK DRIVER): - Doing well on INH/B6 for LTBI, [...] Hyperlipidemia associated with type 2 diabetes vivek fuentes 10/24/2023 Assessment & Plan (04/30/2024 2:13 PM GAS TRUCK DRIVER): Chronic problem. Currently taking Atorvastatin 40mg. Last lipid panel: 03/09/23 LDL=37 NJ=061. Will update labs. Does not mychart. Verified phone #/address to contact re: results. Assessment & Plan (10/24/2023 3:19 PM CDT): Chronic problem. Currently taking Atorvastatin 40mg. Last lipid panel: 03/09/23 LDL=37 IH=831. Positive TB test 09/19/2023 Assessment & Plan (01/01/2024 12:37 PM GAS TRUCK DRIVER): - Unable to tolerate rifabutin as she [...] CBC and CMP in 1 month at [facility] - Ok to start biologic for rheumatoid arthritis after she has been on rifabutin for 1 month. Will forward note to rheumatology Class 2 severe obesity due t o excess calories with serious comorbidity and body mass index (BMI) of 39.0 to 39.9 in adult 03/09/2023 Assessment & Plan (03/09/2023 10:05 AM GAS TRUCK DRIVER): Discussed healthy diet and importance of regular [...] 03/22/2022 Assessment & Plan (03/22/2022 8:59 AM GAS TRUCK DRIVER): Chronic problem, stable. 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 Overview (11/19/2019): Added automatically from request for surgery [id number] Ulnar neuropathy of left upper extremity 020 Overview (11/19/2019): Added automatically from request for surgery [id number] Anxiety 05/24/2019 Asthma 05/24/2019 Brachial neuritis 05/24/2019 Major depressive disorder 05/24/2019 Gastroesophageal reflux disease without esophagi tis 05/24/2019 Gout 05/24/2019 Spleen hematoma 05/24/2019 Osteoarthritis 05/24/2019 Primary localized osteoarthrosis of shoulder reg ion 05/24/2019 Recurrent dislocation of shoulder region 020 Hypothyroidism 04/10/2019 Assessment & Plan (04/30/2024 2:14 PM GAS TRUCK DRIVER): Chronic problem. Currently taking levothyroxine 100mcg. Clinically [...] 1.23 Assessment & Plan (03/09/2023 9:54 AM GAS TRUCK DRIVER): Chronic problem. Currently taking levothyroxine 100mcg. Clinically [...] today. Will update labs today. Does not tichart. Verified phone #/address to contact re: results. Assessment & Plan (11/25/2019 10:57 AM CDT): Check TSH and adjust as indicated Assessment & Plan (09/19/2019 1:14 PM CDT): Clinically euthyroid. Will check TFTs and adjust dose if indicated. 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 Currently taking Gabapentin 300mg bid. [...] barefoot. Assessment & Plan (03/09/2023 9:47 AM GAS TRUCK DRIVER): Chronic problem. Currently taking gabapentin. Aware to check feet nightly & not go barefoot. Assessment & Plan (09/08/2022 11:14 AM CDT): Chronic problem. Currently taking gabapentin. Aware to check feet nightly. Assessment & Plan (03/21/2022 8:54 AM GAS TRUCK DRIVER): Chronic problem. Currently taking gabapentin. Aware to check feet nightly. Assessment & Plan (05/13/2021 10:51 AM CDT): Foot care discussed Assessment & Plan (11/05/2020 2:29 PM CDT): Foot care discussed The patient does not feel that Neurontin helps of will discontinue Assessment & Plan (04/02/2020 1:40 PM GAS TRUCK DRIVER): On Neurontin Foot care discussed Assessment & Plan (10/19/2017 10:52 AM CDT): Foot care discussed On neurointin Advised on seeing foot dr. Hyperlipidemia 10/19/2017 Assessment & Plan (03/09/2023 9:48 AM GAS TRUCK DRIVER): Chronic problem. Current on atorvastatin 40mg daily. Last lipid panel: 11/04/21 LDL=26, XO=309. Will update labs today. Does not mychart. Verified phone #/address to contact re: results. Assessment & Plan (09/08/2022 11:14 AM CDT): Chronic problem. Current on atorvastatin 40mg daily. 11/04/21 LDL=26. No changes. Assessment & Plan (03/21/2022 8:53 AM GAS TRUCK DRIVER): Chronic problem. Current on atorvastatin 40mg daily. [...] Lipitor Assessment & Plan (04/02/2020 1:37 PM GAS TRUCK DRIVER): Goal of treatment , LDL cholesterol less [...] therapy. Assessment & Plan (03/12/2019 12:24 PM GAS TRUCK DRIVER): Goal of treatment , LDL cholesterol less [...] 01/17/2017 Assessment & Plan (04/30/2024 2:42 PM GAS TRUCK DRIVER): Chronic problem, A1c stable but uncontrolled at [...] UTD on DM eye exam (03/06/23 at [facility] in [place]). Had appt summer 2023; letter sent to [...] UTD on DM eye exam (03/06/23 at [facility]). Discussed need to [...] UTD on DM eye exam (03/06/23 at [facility]). Discussed need to [...] infection. Assessment & Plan (03/09/2023 10:02 AM GAS TRUCK DRIVER): Chronic problem, A1c worsening. A1c breanna from [...] re: results. DM eye exam 03/06/23 at [facility] in [place]. Letter sent to get copy of report. [...] housework. Assessment & Plan (03/22/2022 9:20 AM GAS TRUCK DRIVER): Chronic problem, not at goal. Continue: Metformin [...] consider. 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 Assessment & Plan (03/30/2017 12:29 PM GAS TRUCK DRIVER): A1c 6.6 but she does have anemia with elevated RDW. Bydureon since 12/2016 may have also helped to improve A1c but will be stopping that for now. Will evaluate again at next Ov. Assessment & Plan (01/17/2017 10:11 AM GAS TRUCK DRIVER): Hba1c was 8.8 today, indicating inadequate DM [...] 01/17/2017 Assessment & Plan (04/30/2024 2:14 PM GAS TRUCK DRIVER): Chronic problem, well controlled on current Metoprolol XL 25mg daily, furosemide 20mg daily Will update labs today. Does not mychart. Verified phone #/address to contact re: results. Assessment & Plan (03/09/2023 9:47 AM GAS TRUCK DRIVER): Chronic problem, well controlled on current Metoprolol XL 25mg daily, furosemide 20mg daily Will update labs today. Does not mychart. Verified phone #/address to contact re: results. Assessment & Plan (09/08/2022 11:14 AM CDT): Chronic problem, well controlled on current Metoprolol XL 25mg daily, furosemide 20mg daily No changes at this time. Assessment & Plan (03/22/2022 9:00 AM GAS TRUCK DRIVER): Chronic problem, well controlled on current metoprolol XL 25mg daily. No changes at this time. Assessment & Plan (07/02/2020 4:04 PM CDT): Goal blood pressure is less than 140/85 Low salt diet was discussed andd recommended The importance of daily aerobic exercise was also emphasized. Continue current meds Assessment & Plan (04/02/2020 1:38 PM GAS TRUCK DRIVER): Goal blood pressure is less than 140/85 [...] MA. Assessment & Plan (03/12/2019 12:24 PM GAS TRUCK DRIVER): Goal blood pressure is less than 140/85 [...] medications. Assessment & Plan (03/30/2017 12:33 PM GAS TRUCK DRIVER): Controlled on current medications. Assessment & Plan (01/17/2017 10:12 AM GAS TRUCK DRIVER): Goal blood pressure is less than 140/85 [...] finger 03/29/2011 Atherosclerotic heart diseas e of [place] coronary artery without angina pectoris 09/09/2010 Chronic diastolic (congestive) heart failure 11/2009 Overview (05/15/2023): intol to rae, ef too good for entrsto Resolved Problems [...] atorvastatin Assessment & Plan (03/30/2017 12:33 PM GAS TRUCK DRIVER): Continue statin Obesity due to excess calories 11/05/2015 03/21/2022 Assessment & Plan (03/30/2017 12:20 PM GAS TRUCK DRIVER): Current exercise will be reduced with completion [...] Former Cigarettes 1 19 1 979 - 1998 Passive Smoke Exposure: Never Smokeless Tobacco: Never [...] on file Legal Sex Female 12:14 AM GAS TRUCK DRIVER Gender Identity Not on file Sexual Orientation [...] on file Medical Devices Implanted Type Area Associate Professor Of Geography Device Identifier Shelf Expiration Date Model / Serial / Lot Allosource [id number] Freeze Dried Chips Graft 15ml Bone Cancellous Cortical - [id number] Implanted:Qty: 1 on 08/14/2018 by Pradip Whalen MD at [facility] Bone Allosource 08/28/2022 [id number] / / [id number] Allosource [id number] Allogro Freeze Dried Graft 15ml Bone Demineralized Bone Matrix - [id number] Implanted:Qty: 1 on 08/14/2018 by Pradip Whalen MD at [facility] Allosource 03/15/2023 [id number] / / [id number] Intraocular Lens Bilateral : Eye Orthohelix [id number] Maxtorque 4mm 37.5mm Cannulated Self Drill Foot Ankle Long Thread - [id number] Implanted:Qty: 1 on 08/14/2018 by Pradip Whalen MD at [facility] Right: Foot Orthohelix MSD-010-40- 375L / / [employer] [id number] Cristobal .062in 9in Style 1 Wire Fixation Stainless Steel - [id number] Implanted:Qty: 1 on 08/14/2018 by Pradip Whalen MD at [facility] Right: First Toe [employer] [id number] / / Orthohelix Mxl-002-2a Maxlock Extreme 2 Hole Welches Alpha Plate Bone Nonsterile - [id number] Implanted:Qty: 1 on 08/14/2018 by Pradip Whalen MD at [facility] Right: Foot Orthohelix MXL-002-2A / / Orthohelix [id number] Maxtorque 5.5mm 50mm Cannulated Self Drill Foot Ankle Long Thread - [id number] Implanted:Qty: 1 on 08/14/2018 by Pradip Whalen MD at [facility] Right: Foot Orthohelix MSD-010-55- 050L / / Orthohelix [id number] Maxtorque 5.5mm 55mm Cannulated Self Drill Foot Ankle Long Thread - [id number] Implanted:Qty: 1 on 08/14/2018 by Pradip Whalen MD at [facility] Right: Foot Orthohelix MSD-010-55- 055L / / Orthohelix [id number] Maxtorque 7mm 70mm Cannulated Self Drill Foot Ankle Petite Thread - [id number] Implanted:Qty: 1 on 08/14/2018 by Pradip Whalen MD at [facility] Right: Foot Orthohelix MSD-010-70- 070P / / Orthohelix [id number] 4mm 26mm Nonlock Foot Ankle Screw Bone Nonsterile Maxlock Extreme - [id number] Implanted:Qty: 2 on 08/14/2018 by Pradip Whalen MD at [facility] Right: Foot Orthohelix INTERNAL COMMUNICATIONS INTERN-011-402 6 / / Orthohelix [id number] Maxlock Extreme 4mm 28mm Nonlock Foot Ankle Screw Bone Nonsterile Latex Free - [id number] Implanted:Qty: 1 on 08/14/2018 by Pradip Whalen MD at [facility] Right: Foot Orthohelix INTERNAL COMMUNICATIONS INTERN-011-402 8 / / Orthohelix [id number] Maxlock Extreme 4mm 24mm Nonlock Foot Ankle Screw Bone Nonsterile - [id number] Implanted:Qty: 1 on 08/14/2018 by Pradip Whalen MD at [facility] Right: Foot Orthohelix INTERNAL COMMUNICATIONS INTERN-011-40- 24 / / Explanted Type Area Associate Professor Of Geography Device Identifier Shelf Expiration Date Model / Serial / Lot Orthohelix Hemmer Lockstitch-040 Melvin Wire Fixation Nonsterile Latex Free - [id number] Explanted:Qty: 2 on 08/14/2018 at [facility] Right: Foot Orthohelix INTERNAL COMMUNICATIONS INTERN-040 / / Procedures Procedure Name Priority Date/Time Associated Diagnosis Comments EGFR Routine 04/30/2024 2:40 PM GAS TRUCK DRIVER Type 2 diabetes mellitus with hyperglycemia, with long-term current use of insulin (HCC) Hypertension associated with type 2 diabetes mellitus (HCC) TSH Routine 04/30/2024 2:40 PM GAS TRUCK DRIVER Hypothyroidism, unspecified type T4, FREE Routine 04/30/2024 2:40 PM GAS TRUCK DRIVER Hypothyroidism, unspecified type LIPID PANEL Routine 04/30/2024 2:40 PM GAS TRUCK DRIVER Type 2 diabetes mellitus with hyperglycemia, with long-term current use of insulin (HCC) Hyperlipidemia associated with type 2 diabetes mellitus (HCC) COMPREHENSIVE METABOLIC PANEL Routine 04/30/2024 2:40 PM GAS TRUCK DRIVER Type 2 diabetes mellitus with hyperglycemia, with long-term current use of insulin (HCC) Hypertension associated with type 2 diabetes mellitus (HCC) ALBUMIN CREATININE RATIO, URINE Routine 04/30/2024 2:40 PM GAS TRUCK DRIVER Type 2 diabetes mellitus with hyperglycemia, with long-term current use of insulin (HCC) POCT GLUCOSE Routine 04/30/2024 1:58 PM GAS TRUCK DRIVER Type 2 diabetes mellitus with hyperglycemia, with long-term current use of insulin (HCC) POCT HEMOGLOBIN A1C Routine 04/30/2024 1 :58 PM GAS TRUCK DRIVER Type 2 diabetes mellitus with hyperglycemia, with long-term current use of insulin (HCC) COMPREHENSIVE METABOLIC PANEL Routine 04/27/2024 2:21 AM GAS TRUCK DRIVER DEXA AXIAL SKELETON BONE DENSITY 1 OR MORE SITES Schedule Routine, Read Routine (OP Routine) 04/02/2024 11:04 AM GAS TRUCK DRIVER Rheumatoid arthritis involving multiple sites with positive rheumatoid factor (HCC) COMPREHENSIVE METABOLIC PANEL (OUTREACH) Routine 03/26/2024 1:16 PM GAS TRUCK DRIVER LTBI (latent tuberculosis infection) CBC WITH AUTO DIFFERENTIAL Routine 03/26/2024 1:15 PM GAS TRUCK DRIVER LTBI (latent tuberculosis infection) HM DIABETES EYE EXAM Routine 09/04/2023 8:55 AM CDT HEPATITIS PANEL, ACUTE Routine 07/03/2023 10:42 AM CDT High risk medication use from Last 3 Months or Most Recently Relevant to Health Maintenance Results * (ABNORMAL) eGFR (04/30/2024 2:40 PM GAS TRUCK DRIVER) eGFR 44(L) >=60 mL/min/1. 73 m2 Comment: [...] last reviewed 2020. Blood 04/30/2024 2:40 PM GAS TRUCK DRIVER 04/30/2024 11:04 PM GAS TRUCK DRIVER us Stacy Hernandez ELECTROTYPE CASTER LAB BLOOD ORDERABLES Valery l Result Performing Organization Address [facility] de Phone Number [facility] [address] [address] [place] [address] * (ABNORMAL) Albumin Creatinine Ratio, Urine (04/30/2024 2:40 PM GAS TRUCK DRIVER) Albumin Ur 3,067.5 mg/L Comment: Interpretive Data No reference range established. Current interpretive data was last revised 2018. Creatinine Ur 81.5 mg/dL [facility] Comment: Interpretive Data No reference range established. Current interpretive data was last revised 2018. Albumin Creatinine Ratio, Ur 3,764(H) 1 - 29 mg/g [facility] Urine 04/30/2024 2:40 PM GAS TRUCK DRIVER 04/30/2024 11:00 PM GAS TRUCK DRIVER us Stacy Hernandez ELECTROTYPE CASTER LAB URINE ORDERABLES Valery l Result Performing Organization Address [facility] Co de Phone Number [facility] [address] [address] [place] [address] * TSH (04/30/2024 2:40 PM GAS TRUCK DRIVER) Thyroid Stimulating Hormone 2.51 0.30 - 4.20 mcIUnit/mL Blood 04/30/2024 2:40 PM GAS TRUCK DRIVER 04/30/2024 11:00 PM GAS TRUCK DRIVER us Stacy Hernandez ELECTROTYPE CASTER LAB BLOOD ORDERABLES Valery l Result Performing Organization Address [facility] Co de Phone Number MALOU FRANK [address] [address] [place] [address] * T4, free (04/30/2024 2:40 PM GAS TRUCK DRIVER) Free T4 1.27 0.90 - 1.70 ng/dL Blood 04/30/2024 2:40 PM GAS TRUCK DRIVER 04/30/2024 11:00 PM GAS TRUCK DRIVER us Stacy Hernandez ELECTROTYPE CASTER LAB BLOOD ORDERABLES Valery l Result Performing Organization Address [facility] Co de Phone Number MALOU FRANK [address] [place] [address] * Lipid panel (04/30/2024 2:40 PM GAS TRUCK DRIVER) Cholesterol 119 30 - 199 mg/dL Comment: [...] last revised on 2017. Chol/HDL ratio 2 [facility] Blood 04/30/2024 2:40 PM GAS TRUCK DRIVER 04/30/2024 11:00 PM GAS TRUCK DRIVER us Stacy Hernandez ELECTROTYPE CASTER LAB BLOOD ORDERAB[place] [address] [address] Department [place] [address] * (ABNORMAL) Comprehensive metabolic panel (04/30/2024 2:40 PM GAS TRUCK DRIVER) Pathologist [facility] Sodium 137 135 - 145 mmol/L Potassium, [...] Units/L [facility] Blood 04/30/2024 2:40 PM GAS TRUCK DRIVER 04/30/2024 11:00 PM GAS TRUCK DRIVER us Stacy Hernandez ELECTROTYPE CASTER LAB BLOOD ORDERABLES Valery l Result [facility] FR[facility] [address] [address] Department [place] [address] * (ABNORMAL) POCT hemoglobin A1c (04/30/2024 1:58 PM GAS TRUCK DRIVER) [facility] Hemoglobin A1C, POC 8.0 4.0 - 5.6 % Blood 04/30/2024 1:58 PM GAS TRUCK DRIVER us Stacybruno Hernandez NP POINT OF CARE TEST ORDERA BLES Final Result * (ABNORMAL) POCT glucose (04/30/2024 1:58 PM GAS TRUCK DRIVER) [facility] Glucose Blood, POC 324 mg/dL Blood 04/30/2024 1:58 PM GAS TRUCK DRIVER us Stacy Hernandez NP POINT OF CARE TEST ORDERA BLES Final Result * (ABNORMAL) Comprehensive metabolic panel (04/27/2024 2:21 AM GAS TRUCK DRIVER) [facility] SCRIBED Sodium 134(A) 136 - 145 mmol/L [...] Units/L EXTERNAL LAB SCRIBED eGFR in NonAfrican Sudanese 37 <60 - NA EXTERNAL LAB Blood 04/27/2024 2:21 AM GAS TRUCK DRIVER us Historical Provider LAB BLOOD ORDERABLES Edit ed Result - Final EXTERNAL LAB * Dexa Axial Skeleton Bone Density 1 or 2 Site (04/02/2024 11:04 AM GAS TRUCK DRIVER) Anatomical Region Laterality Modality Body N/A Radiographic Sheron ging Narrative 04/02/2024 2:27 PM GAS TRUCK DRIVER Patient Name: Aleyda Dobbs Date of : 1950 Date of scan: 04/02/2024 Bone mineral density was performed on a Hologic Discovery Densitometer. Based on machine cross-calibration and [...] density scan were prepared by Agnes Cortez(Bhavana)(M)(BD) CBDT who is accredited by the International Society of Clinical Densitometry. The overall patient assessment and scan interpretation were performed by Chacho Sanon M.D. who is certified by the International Society of Clinical Densitometry. [id number] Shawanda De La Cruz NP [facility] DXA PROCEDURES Final R esult * (ABNORMAL) Comprehensive metabolic panel (Outreach) (03/26/2024 1:16 PM GAS TRUCK DRIVER) [facility] Glucose 173(H) 65 - 99 mg/dL Top ProspectElisha Broussard Comment: For someone without known diabetes, a glucose value >125 mg/dL indicates that they may have diabetes and this should be confirmed with a follow-up test. Fasting reference interval BUN 37(H) 7 - 25 mg/dL Hadley RichardJEDI MINDShala Broussard Creatinine 1.39(H) 0.60 - 1.00 mg/dL Hadley RichardJEDI MINDShala Broussard eGFR 41(L) > OR = 60 mL/min/1.7 3m2 Hadley Broussard BUN/creat ratio 27(H) 6 - 22 (calc) Hadley RichardShala Broussard Sodium 138 135 - 146 mmol/L Hadley RichardShala Broussard Potassium 4.1 3.4 - 4.8 mmol/L Hadley RichardJEDI MINDShala Broussard Chloride 107 98 - 110 mmol/L Hadley RichardJEDI MINDShala Broussard CO2 25 20 - 32 mmol/L Hadley RichardJEDI MINDShala Broussard Calcium 9.0 8.6 - 10.4 mg/dL Hadley [facility] MEDIA GROUPShala Broussard Protein, Total 7.1 6.4 - 8.4 g/dL Hadley RichardJEDI MINDShala Broussard Albumin 3.4(L) 3.6 - 5.1 g/dL Hadley [facility] GROUPShala Broussard Globulin 3.7 2.2 - 4.0 g/dL (calc) Hadley RichardJEDI MINDShala Broussard Alb/glob ratio 0.9 0.9 - 2.3 (calc) Hadley [facility] MEDIA GROUPShala Broussard Bilirubin, total 0.4 0.2 - 1.2 mg/dL Hadley RichardJEDI MINDShala Broussard Alk phos 108 37 - 153 U/L Hadley RichardJEDI MINDShala Broussard AST 41(H) 10 - 35 U/L Hadley RichardJEDI MINDShala Broussard ALT (SGPT) 27 6 - 29 U/L Hadley [facility] GROUPShala Broussard Blood 03/26/2024 1:16 PM GAS TRUCK DRIVER 03/26/2024 1:17 PM GAS TRUCK DRIVER us Ana Laura Ramires NP LAB BLOOD ORDERABLES Valery rivera Result [facility]Re[facility] Mexico[facility]isco Javier [address] [place] [address] * (ABNORMAL) CBC with auto differential (03/26/2024 1:15 PM GAS TRUCK DRIVER) WBC 4.5 3.8 - 10.8 Thousand/u L [facility] RBC, POC 3.35(L) 3.80 - 5.10 Million/uL [...] [facility] Blood 03/26/2024 1:15 PM GAS TRUCK DRIVER 03/26/2024 1:15 PM GAS TRUCK DRIVER us Ana Laura Ramires NP LAB BLOOD ORDERABLES Valery rivera Result [place] [address] [place] [address] * (ABNORMAL) DIABETES EYE EXAM (09/04/2023 8:55 AM CDT) Historical Provider HEALTH MAINTENANCE Final Result * Hepatitis panel, acute Blood (07/03/2023 10:42 AM CDT) Hep A IgM Nonreactive Nonreactive Hep B core IgM Nonreactive Nonreactive [facility] Hep C Ab Nonreactive Nonreactive [facility] Comment:Antibodies to HCV no t detected. Does NOT exclude the possibility of recent exposure to HCV. Current interpretive data was last revised on 21 HepBsAg Nonreactive Nonreactive [facility] Blood 07/03/2023 10:4 2 AM CDT 07/03/2023 2:00 PM CDT Shawanda De La Cruz NP LAB MICROBIOLOGY - GENERAL ORDERABLES Final Result [facility] Department [place] [address] from Last 3 Months or Most Recently Relevant to Health Maintenance Insurance MEDICARE [employer] OPEN ACCESS MEDICARE [facility] Address: [address] [address] [place] [address] [employer] OPEN ACCESS MEDICARE Pro[employer] ACCESS [employer] OPEN ACCESS Advance Directives For more information, please contact: [phone] * Full Code (Latest Code Status on File) Date Activated Date Inactivated Comments 07/20/2020 2:30 PM 07/21/2020 6:17 PM * Full Code Date Activated Date Inactivated Comments 08/14/2018 8:57 PM 08/15/2018 6:35 PM Care Teams Jewel Grinder Relationship Specialty Start Date End Date Charles Armendariz DO PCP - General 05/27/16 David Vanegas MD [address] [place] [address] Consulting Physician Cardiology 07/20/18
--- OUTSIDE RECORDS SUMMARY | 2024-06-17 17:01 | XMS_ITS | Encounter Summary ---
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
--- OUTSIDE RECORDS SUMMARY | 2024-06-17 17:01 | XMS_ITS | Encounter Summary ---
Author Organization [facility] [employer] [facility] Address [address] [place] [address] Care Team Providers Care Dipper And Baker Name Role Phone Charles Armendariz DO Primary Care Provider Encounter Details Date Type Department Care Team (Late Contact Info) Description 06/17/2024 Orders Only [facility] [address] [place] [address] Ray Richards MD [address] [place] [id number] Chronic anemia Social History Tobacco Use [...] on file 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 Gender Identity Not on file Sexual Orientation Not on file documented as of this encounter Plan of Treatment Upcoming Encounters Date Type Department Care Team (Late Contact Info) Description 07/31/2024 9:30 AM CDT Office Visit [facility] [address] [place] [address] Ray Richards MD [address] [place] [phone] documented as of this encounter Visit Diagnoses Diagnosis Chronic anemia Anemia, unspecified documented in this encounter Care Teams Dipper And Baker Relationship Specialty Start Date End Date Charles Armendariz DO [address] [address] PCP - General Internal Medicine 11/04/22 documented as of this encounter
--- OUTSIDE RECORDS SUMMARY | 2024-06-17 17:01 | XMS_ITS | Encounter Summary ---
Author Organization 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
--- OUTSIDE RECORDS SUMMARY | 2024-06-17 17:01 | XMS_ITS | Continuity of Care Document ---
Author Organization [employer] [place] Address [address] [place] [address] [address] [place] [address] Phone Care Team Providers Care Floor Mechanic Name Role Phone Youngblood PT, DPT, Deborah Unavailable Unavaila ble Procedures Procedure Date Therapeutic Activities Neuromuscular Re-Ed Therapeutic Exercise Hot or Cold Pack Progress Note Therapeutic Activities Neuromuscular Re-Ed Therapeutic Exercise Hot or Cold Pack Therapeutic Activities Neuromuscular Re-Ed Therapeutic Activities Neuromuscular Re-Ed Remote therapeutic monitor monthly mgmt m Remote therapeutic monitor monthly mgmt add 20m [...] Re-Ed Therapeutic Exercise Therapeutic Activities Neuromuscular Re-Ed Nov- Therapeutic Activities Neuromuscular Re-Ed Therapeutic Exercise Neuromuscular Re-Ed Therapeutic Activities Therapeutic Activities Therapeutic Exercise Nov- Neuromuscular Re-Ed Nov- Therapeutic Activities Neuromuscular Re-Ed Therapeutic Exercise Progress Note Neuromuscular Re-Ed Nov- Therapeutic Activities Therapeutic Exercise Therapeutic Activities Neuromuscular Re-Ed Therapeutic Exercise Therapeutic Activities Therapeutic Exercise Oct- Neuromuscular Re-Ed Oct- Therapeutic Activities Oct- Therapeutic Exercise Oct- Neuromuscular Re-Ed Therapeutic Activities Oct- Therapeutic Exercise Oct- Neuromuscular Re-Ed Oct- Therapeutic Activities Oct- Therapeutic Exercise Oct- Neuromuscular Re-Ed Neuromuscular Re-Ed Therapeutic Activities Doc neg elder mal no plan Doc neg elder mal no plan Therapeutic Activities Neuromuscular Re-Ed PT Evaluation Moderate Complexity Progress Note Therapeutic Activities Oct- Therapeutic Exercise Oct- Neuromuscular Re-Ed Oct- Manual Therapy Hot or Cold Pack Neuromuscular Re-Ed Oct- Therapeutic Activities Oct- Therapeutic Exercise Oct- Hot or Cold Pack Oct- Neuromuscular Re-Ed Oct- Hot or Cold Pack Oct- Therapeutic Exercise Oct- Therapeutic Activities Oct- Neuromuscular Re-Ed Oct- Therapeutic Activities Oct- Manual Therapy Hot or Cold Pack Therapeutic Activities Neuromuscular Re-Ed Hot or Cold Pack Manual Therapy Manual Therapy Neuromuscular Re-Ed Therapeutic Activities Hot or Cold Pack Therapeutic Exercise Therapeutic Activities Manual Therapy Hot or Cold Pack Manual Therapy Therapeutic Exercise Therapeutic Activities Hot or Cold Pack Progress Note Therapeutic Activities Therapeutic Exercise Manual Therapy Hot or Cold Pack Therapeutic Activities Hot or Cold Pack Manual Therapy Therapeutic Exercise Therapeutic Activities Hot or Cold Pack Neuromuscular Re-Ed Manual Therapy Therapeutic Activities Therapeutic Exercise Hot or Cold Pack Manual Therapy Therapeutic Activities Manual Therapy Therapeutic Exercise Hot or Cold Pack Therapeutic Activities Manual Therapy Neuromuscular Re-Ed Hot or Cold Pack Therapeutic Exercise Therapeutic Activities Hot or Cold Pack Therapeutic Exercise Manual Therapy Therapeutic Activities Neuromuscular Re-Ed Hot or Cold Pack Manual Therapy Therapeutic Activities Manual Therapy Neuromuscular Re-Ed Hot or Cold Pack Manual Therapy Therapeutic Activities Hot or Cold Pack Neuromuscular Re-Ed Neuromuscular Re-Ed Therapeutic Activities Progress [...] Pack Manual Therapy Neuromuscular Re-Ed Therapeutic Activities Manual Therapy Therapeutic Exercise Hot or Cold Pack Therapeutic Activities Neuromuscular Re-Ed Therapeutic Exercise Manual Therapy Hot or Cold Pack OT Re-Evaluation Therapeutic Activities Neuromuscular Re-Ed Therapeutic Exercise Manual Therapy Hot or Cold Pack Therapeutic Exercise Hot or Cold Pack Therapeutic Activities Manual Therapy Progress Note Therapeutic Activities Hot or Cold Pack Therapeutic Exercise Manual Therapy Therapeutic Activities Therapeutic Exercise Manual Therapy Hot or Cold Pack Therapeutic Activities Hot or Cold Pack Therapeutic Exercise Manual Therapy Therapeutic Activities Hot or Cold Pack Therapeutic Exercise Manual Therapy Therapeutic Activities Hot or Cold Pack Manual Therapy Therapeutic Activities Hot or Cold Pack Neuromuscular Re-Ed Therapeutic Exercise Therapeutic Activities Therapeutic Exercise Hot or Cold Pack Neuromuscular Re-Ed Therapeutic Exercise Therapeutic Activities Hot or Cold Pack Neuromuscular Re-Ed Neuromuscular Re-Ed Hot or Cold Pack Therapeutic Activities Therapeutic Exercise Progress Note Therapeutic Exercise Therapeutic Activities Neuromuscular Re-Ed Manual Therapy Hot or Cold Pack Neuromuscular Re-Ed Therapeutic Exercise Therapeutic Activities Hot or Cold Pack Manual Therapy Manual Therapy Neuromuscular Re-Ed Therapeutic Activities Therapeutic Exercise Hot or Cold Pack Neuromuscular Re-Ed Therapeutic Activities Therapeutic Exercise Hot or Cold Pack Manual Therapy Therapeutic Activities OT Evaluation Low Complexity Manual Therapy Therapeutic Exercise Therapeutic Exercise Orthotic Mgmt and Training Long Arm Splint wrist included Advance Directives Directive Yes / No Effective Date File Name No Information Encounters Encounter Description Practice Location Reason(s) For Visit Diagnoses Date Provider Providers Copied on Encounter [facility] [facility] [address], [place], [place], [id number], tel:[phone] Curtis No Information 5 Youngblood Deborah. . Referring Provider: Caleb Martinez [address] [place] [address] [address], [place], [address]. [facility] [address] [facility] [address], [place], [place], [address], tel:[phone] Curtis No Information 5 Youngblood Deborah. . Referring Provider: Caleb Martinez [address] [place] [address] [address], [place], [address]. [facility] [facility] [address], [place], [place], [address], tel:[phone] Curtis No Information 5 Youngblood Deborah. . Referring Provider: Caleb Martinez [address] [place] [address] [address], [place], [address]. [facility] [facility] [address], [place], [place], [address], tel:[phone] Curtis No Information 5 Youngblood Deborah. . Referring Provider: Caleb Martinez [address] [place] [address] [address], [place], [address]. [facility] [facility] [address], [place], [place], [address], [place] tel:[phone] Curtis Pain in left shoulderStiffn ess of left shoulder, not elsewhere classifiedMusc le weakness (generalized) 5 Youngblood Deborah. . Referring Provider: Caleb Martinez [address] [place] [address] [address], [place], [address]. [facility] [facility] [address], [place], [place], [address], tel:[phone] Curtis No Information Mar-2 8-202 5 Niall Alas. [address] [facility], [address], [place], [address], [place]. tel:[phone] Referring Provider: Caleb Martinez, [address] [place] [address] [address], [place], [address]. [facility], [address] [facility] [address], [place], [place], [address], [place] tel:[phone] Curtis No Information Mar-2 4-202 5 Youngblood Deborah. . Referring Provider: Caleb Martinez, [address] [place] [address] [address], [place], [address]. [facility] [address] [facility] [address], [place], [place], [address], tel:[phone] Curtis No Information Mar-1 9-202 5 Youngblood Deborah. . Referring Provider: Caleb Martinez, [address] [place] [address] [address], [place], [address]. [facility] [address] [facility] [address], [place], [place], [address], [place] tel:[phone] Curtis No Information Mar-1 7-202 5 Youngblood Deborah. . Referring Provider: Caleb Martinez, [address] [place] [address] [address], [place], [address]. [facility], [address] [facility] [address], [place], [place], [address], [place] tel:[phone] Curtis No Information Mar-1 2-202 5 Youngblood Deborah. . Referring Provider: Caleb Martinez [address] [place] [address] [address], [place], [address]. [facility], [address], [place], [place], [address], [place] tel:[phone] Curtis No Information Mar-1 0-202 5 Youngblood Deborah. . Referring Provider: Caleb Martinez, [address] [place] [address] [address], [place], [address]. [facility], [address], [place], [place], [address], [place] tel:[phone] Curtis No Information Mar-0 7-202 5 Youngblood Deborah. . Referring Provider: Caleb Martinez, [address] [place] [address] [address], [place], [address]. [facility], [address] [facility] [address], [place], [place], [address], tel:[phone] Curtis No Information 5 Youngblood Deborah. . Referring Provider: Caleb Martinez, [address] [place] [address] [address], [place], [address]. [facility], [address] [facility] [address], [place], [place], [address], [place] tel:[phone] Curtis No Information 5 Youngblood Deborah. . Referring Provider: Caleb Martinez, [address] [place] [address] [address], [place], [address]. [facility], [address] [facility] [address], [place], [place], [address], tel:[phone] Curtis No Information 5 Youngblood Deborah. . Referring Provider: Caleb Martinez, [address] [place] [address] [address], [place], [address]. [facility], [address] [facility] [address], [place], [place], [address], tel:[phone] Curtis No Information 5 Youngblood Deborah. . Referring Provider: Caleb Martinez, [address] [place] [address] [address], [place], [address]. [facility], [address] [facility] [address], [place], [place], [address], [place] tel:[phone] Curtis No Information 5 Youngblood Deborah. . Referring Provider: Caleb Martinez, [address] [place] [address] [address], [place], [address]. [facility] [facility] [address], [place], [place], [address], tel:[phone] Curtis No Information 2 Niall Grider [address] [facility], [address], [place], [address], [place]. tel: [phone] Referring Provider: Caleb Martinez, [address] [place] [address] [address], [place], [address]. [facility], [facility] [address], [place], [place], [address], tel:[phone] Curtis No Information Nov-2 2 Muehl Bishop. [address] [place] [address], [address], [place], [facility], [place]. tel: [phone] Referring Provider: Caleb Martinez, [address] [place] [address] [address], [place], [address]. [facility], [address] [place], [place] [address], [place], [place], [address], tel:[phone] Curtis No Information 1 2 Muehl Bishop. [address] [place] [address], [address], [place], [facility], . tel: [phone] Referring Provider: Caleb Martinez, [address] [place] [address] [address], [place], [address]. [facility], [address] [place], [place] [address], [place], [place], [address], tel:[phone] Curtis No Information 2 Muehl Bishop. [address] [place] [address], [address], [place], [facility], [place]. tel: [phone] Referring Provider: Caleb Martinez, [address] [place] [address] [address], [place], [address]. [facility] [address] [facility] [address], [place], [place], [address], tel:[phone] Curtis No Information 0 2 Muehl Bishop. [address] [place] [address], [address], [place], [facility], [place]. tel: [phone] Referring Provider: Caleb Martinez, [address] [place] [address] [address], [place], [address]. [facility] [address] [facility] [address], [place], [place], [address], tel:[phone] Curtis No Information Nov-0 4-202 2 Muehl Bishop. [address] [place] [address], [address], [place], [address], [place]. tel:[phone] Referring Provider: Caleb Martinez, [address] [place] [address] [address], [place], [address]. [facility], [address] [place], [place] [address], [place], [place], [address], tel:[phone] Curtis No Information Nov-0 2-202 2 Muehl Bihsop. [address] [place] [address], [address], [place], [address], [place]. tel: [phone] Referring Provider: Caleb Martinez, [address] [place] [address] [address], [place], [address]. [facility] [address] [place], [place] [address], [place], [place], [address], tel:[phone] Curtis No Information Nov-2 6-202 2 Muehl Bishop. [address] [place] [address], [address], [place], [facility], [place]. tel:[phone] Referring Provider: Caleb Martinez, [address] [place] [address] [address], [place], [address]. [facility] [address] [place], [place] [address], [place], [place], [address], [place] tel:[phone] Curtis No Information Nov-2 4-202 2 Muehl Bishop. [address] [place] [address], [address], [place], [address], [place]. tel:[phone] Referring Provider: Caleb Martinez, [address] [place] [address] [address], [place], [address]. [facility] [address] [facility] [address], [place], [place], [address], [place] tel:[phone] Curtis No Information 1 7-202 2 Muehl Bishop. [address] [place] [address], [address], [place], [address], [place]. tel:[phone] Referring Provider: Caleb Martinez, [address] [place] [address] [address], [place], [address]. [facility], [address] [facility] [address], [place], [place], [address], [place] tel:[phone] Curtis No Information Oct-1 2-202 2 Muehl Bishop. [address] [place] [address], [address], [place], [facility], . tel: [phone] Referring Provider: Caleb Martinez, [address] [place] [address] [address], [place], [address]. [facility] [address] [place], [place] [address] [address], [place], [place], [address], tel:[phone] Curtis No Information Oct-1 0-202 2 Muehl Bishop. [address] [place] [address], [address], [place], [facility], [place]. tel: [phone] Referring Provider: Caleb Martinez, [address] [place] [address] [address], [place], [address]. [facility] [address] [place] [address], [place], [place], [address], tel:[phone] Curtis No Information Oct-0 7-202 2 Muehl Bishop. [address] [place] [address], [address], [place], [facility], [place]. tel: [phone] Referring Provider: Caleb Martinez, [address] [place] [address] [address], [place], [address]. [facility], [address] [place], [place] [address] [address], [place], [place], [address], tel:[phone] Curtis No Information Oct-0 5-202 2 Muehl Bishop. [address] [place] [address], [address], [place], [facility], [place]. tel: [phone] Referring Provider: Caleb Martinez, [address] [place] [address] [address], [place], [address]. [address], [place], [place], [address], tel:[phone] Curtis No Information Sep-2 8-202 2 Muehl Bishop. [address] [place] [address], [address], [place], [facility], [place]. tel: [phone] Referring Provider: Caleb Martinez, [address] [place] [address] [address], [place], [address]. [facility] [address] [place], [place] [address], [place], [place], [address], tel:[phone] Curtis No Information Sep- 2 Muehl Bishop. [address] [place] [address], [address], [place], [facility], [place]. tel: [phone] Referring Provider: Caleb Martinez, [address] [place] [address] [address], [place], [address]. [facility], [address] [place], [place] [address], [place], [place], [address], tel:[phone] Curtis No Information Sep-2 2 Muehl Bishop. [address] [place] [address], [address], [place], [facility], [place]. tel: [phone] Referring Provider: Caleb Martinez, [address] [place] [address] [address], [place], [address]. [facility], [address] [place], [place] [address], [place], [place], [address], tel:[phone] Curtis No Information Oct- 2 Muehl Bishop. [address] [place] [address], [address], [place], [facility], [place]. tel: [phone] Referring Provider: Caleb Martinez, [address] [place] [address] [address], [place], [address]. [facility] [address] [facility] [address], [place], [place], [address], tel:[phone] Curtis No Information Sep- 2 Muehl Bishop. [address] [place] [address], [address], [place], [facility], [place]. tel: [phone] Referring Provider: Caleb Martinez, [address] [place] [address] [address], [place], [address]. [facility], [address] [facility], [place], [place], [address], tel:[phone] Curtis No Information Sep-1 2-202 2 Abdoul Romero. . Referring Provider: Caleb Martinez, [address] [facility] [address], [place], [address]. [facility] [address], [place], [place], [address], tel:[phone] Curtis Urge incontinence Sep-0 8 2 Niall Alas. [address] [facility], [address], [place], [address], [place]. tel:[phone] Referring Provider: Caleb Martinez, [address] [facility] [address], [place], [address]. [facility] [address] [place] [address] 300, [place], [place], [address], tel:[phone] Baldwin No Information Sep-2 4 1 Heslin Lopez. . Referring Provider: Perez Tinsley, Elisabeth[address] [facility] [address] 6A/6B/12A, [place], [address]. tel:[phone] [place] [address], [place], [place], [address], tel:[phone] Baldwin No Information Sep-2 0 1 Heslin Lopez. . Referring Provider: Perez Tinsley, Aron [facility] [address] 6A/6B/12A, [place], [address]. tel:[phone] [place] [address], [id number], tel:[phone] Baldwin No Information Sep-1 0- 1 Heslin Lopez. . Referring Provider: Elisabeth Amaya[address] [facility] [address] 6A/6B/12A, [place], [address]. tel:[phone] [place] [address]e [address], [place], [place], [address], tel:[phone] Baldwin No Information Sep-0 8 1 Heslin Lopez. . Referring Provider: Aron Amaya [facility] [address] 6A/6B/12A, [place], [address]. tel:[phone] [place] [address], [address], [place], [place], [address], [place] tel:[phone] Baldwin No Information Oct-0 1 Heslin Lopez. . Referring Provider: Perez Tinsley, [address] [facility] [address] 6A/6B/12A, [place], [address]. tel:[phone] [place] [address], [place], [place], [address], [place] tel:[phone] Baldwin No Information Sep-3 1 Heslin Lopez. . Referring Provider: Perez Tinsley, A[address] [facility] [address] 6A/6B/12A, [place], [address]. tel:[phone] [place] [address], [address], [place], [place], [address], [place] tel:[phone] Baldwin No Information Sep-2 1 Heslin Lopez. . Referring Provider: Perez Tinsley, Aron [facility] [address] 6A/6B/12A, [place], [address]. tel:[phone] [place] [address] [address], [place], [place], [address], tel:[phone] Baldwin No Information Sep- 1 Heslin Lopez. . Referring Provider: Perez Tinsley, [address]B/[address]A, [place], [address]. tel:[phone] [place] [address], [address], [place], [place], [address], [place] tel:[phone] Baldwin No Information Sep-2 1 Heslin Lopez. . Referring Provider: Perez Tinsley, A[address] 6A/[address]B/12A, [place], [address]. tel:[phone] [place] [address] [address], [place], [place], [address], [place] tel:[phone] Baldwin No Information 1 Heslin Lopez. . Referring Provider: Perez Tinsley, [address]A/[address]B/12A, [place], [address]. tel:[phone] [place] [address], [address] [place], [place] [address], [place], [place], [address], tel:[phone] Baldwin No Information 1 Derrick Cyndie. . Referring Provider: Perez Tinsley, [address] 6A/[address]B/12A, [place], [address]. tel:[phone] [place] [address] [facility] [address], [place], [place], [address], tel:[phone] Baldwin No Information 0 1 Heslin Lopez. . Referring Provider: Perez Tinsley, Elisabeth[address] 6A/6B/12A, [place], [address]. tel:[phone] [place] [address], [facility] [address], [place], [place], [address], [place] tel:[phone] Baldwin No Information 1 Heslin Lopez. . Referring Provider: Perez Tinsley, [address] [facility] [address] 6A/6B/12A, [place], [address]. tel:[phone] [place] [address] [address], [place], [place], [address], [place] tel:[phone] Baldwin No Information 0 1 Heslin Lopez. . Referring Provider: Perez Tinsley, [address] 6A/6B/12A, [place], [address]. tel:[phone] [place] [address], [address], [place], [place], [address], tel:[phone] Baldwin No Information 1 Heslin Lopez. . Referring Provider: Perez Tinsley, Aron [address] 6A/6B/12A, [place], [address]. tel:[phone] [place] [address] [address], [place], [place], [address], tel:[phone] Baldwin No Information 1 Heslin Lopez. . Referring Provider: Perez Tinsley, [address] 6A/6B/12A, [place], [address]. tel:[phone] [place] [address], [address], [place], [place], [address], [place] tel:[phone] Baldwin No Information 1 Heslin Lopez. . Referring Provider: Perez Tinsley, A[address] 6A/6B/12A, [place], [address]. tel:[phone] [place] [address] [address], [place], [place], [address], [place] tel:[phone] Baldwin No Information 1 Heslin Lopez. . Referring Provider: Perez Tinsley, [address] 6A/6B/12A, [place], [address]. tel:[phone] [place] [address] [address] [facility] [address], [place], [place], [address], tel:[phone] Baldwin No Information 1 Heslin Lopez. . Referring Provider: Perez Tinsley, [address] 6A/6B/12A, [place], [address]. tel:[phone] [place], [place] [address] [address], [place], [place], [address], [place] tel:[phone] Baldwin No Information 1 Heslin Lopez. . Referring Provider: Aron Am[address] 6A/[address]B/12A, [place], [address]. tel:[phone] [place] [address], [address] [facility], [place], [place], [address], [place] tel:[phone] Baldwin No Information 1 Heslin Lopez. . Referring Provider: Perez Tinsley, Aron [facility] [address] 6A/6B/12A, [place], [address]. tel:[phone] [place] [address] [address] [facility], [place], [place], [address], [place] tel:[phone] Baldwin No Information 1 Heslin Lopez. . Referring Provider: Perez Tinsley, Aron [facility] [address] 6A/6B/12, [place], [address]. tel:[phone] [place] [address], [address] [place], [place] [address], [place], [place], [id number], tel:[phone] [place] No Information 1 Heslin Lopez. . Referring Provider: Perez Tinsley, Aron [facility] 6A/6B/12, [place], [address]. tel:[phone] [place] [address] [address] [facility], [place], [place], [id number], [place] tel:[phone] [place] No Information 1 Derrick Cyndie. . Referring Provider: Perez Tinsley, Aron [facility] 6A/6B/12A, [place], [address]. tel:[phone] [place] [address], [address] [facility], [place], [place], [id number], [place] tel:[phone] [place] No Information 1 Redohl Laura. . Referring Provider: Perez Tinsley, Aron [facility] 6A/6B/12A, [place], [address]. tel:[phone] [place] [address], [address] [facility], [place], [place], [id number], [place] tel:[phone] [place] No Information 1 Heslin Lopez. . Referring Provider: Perez Tinsley, Aron [address] [facility] 6A/6B/12A, [place], [address]. tel:[phone] [place] [address], [address] [place] [address], [place], [place], [id number], tel:[phone] [place] No Information - 1 Heslin Lopez. . Referring Provider: Perez Tinsley, Aron [address] [facility] 6A/6B/12A, [place], [address]. tel:[phone] [place] [address], [place], [id number], tel:[phone] [place] No Information 1 Heslin Lopez. . Referring Provider: Aron [address] 6A/6B/12, [place], [address]. tel:[phone] [place], [place] [address] [facility], [place], [id number], tel:[phone] [place] No Information 1 Heslin Lopez. . Referring Provider: Aron Am[address] 6A/6B/12A, [place], [address]. tel:[phone] [place] [address], [place], [place], [id number], tel:[phone] [place] No Information 1 Heslin Lopez. . Referring Provider: Aron Am[address] 6A/6B/12A, [place], [address]. tel:[phone] [place] [address], [address] [place], [place] [address] [address], [place], [place], [id number], tel:[phone] [place] No Information 0- 1 Heslin Lopez. . Referring Provider: Aron [address] 6A/6B/12A, [place], [address]. tel:[phone] [place], [place] [address], [place], [place], [id number], [place] tel:[phone] [place] No Information Apr-1 6- 1 Heslin Lopez. . Referring Provider: Perez Tinsley, [address] [facility] [address] 6A/6B/12, [place], [address]. tel:[phone] [place] [address], [address] [place], [place] [address] [address], [place], [place], [id number], [place] tel:[phone] [place] No Information Apr-1 - 1 Heslin Lopez. . Referring Provider: Perez Tinsley, [address] [facility] 6A/6B/12, [place], [address]. tel:[phone] [place], [place] [address] [facility], [place], [place], [id number], [place] tel:[phone] [place] No Information Apr-0 - 1 Heslin Lopez. . Referring Provider: Perez Tinsley, Elisabeth1 [facility] 6A/6B/12, [place], [address]. tel:[phone] [place], [place] [address] [address], [place], [place], [id number], [place] tel:[phone] [place] No Information Apr-0 - 1 Heslin Lopez. . Referring Provider: Perez Tinsley, Elisabeth1 [facility] 6A/6B/12A, [place], [address]. tel:[phone] [place] [address] [address], [place], [place], [id number], [place] tel:[phone] [place] No Information Apr-0 2- 1 Verdon Chayo. . Referring Provider: Perez Tinsley, [address] [facility] 6A/6B/12A, [place], [address]. tel:[phone] [place] [address], [address], [place], [place], [id number], [place] tel:[phone] [place] No Information Mar-2 1 Shayne Chayo. . Referring Provider: Perez Tinsley, Aron [facility] 6A/6B/12A, [place], [address]. tel:[phone] [place] [address] [address], [place], [place], [id number], [place] tel:[phone] [place] No Information Mar-2 1 Verdon Chayo. . Referring Provider: Perez Tinsley, Aron [facility] [address] 6A/6B/12, [place], [address]. tel:[phone] [place] [address], [address], [place], [place], [id number], tel:[phone] [place] No Information Mar-2 1 Shayne Chayo. . Referring Provider: Perez Tinsley, Aron [facility] [address] 6A/6B/12, [place], [address]. tel:[phone] [place], [place] [address] [address], [place], [place], [id number], [place] tel:[phone] [place] No Information Mar-1 1 Shayne Chayo. . Referring Provider: Aron Amaya [facility] [address] 6A/6B/12A, [place], [address]. tel:[phone] [place] [address], [address], [place], [place], [id number], [place] tel:[phone] [place] No Information Mar-1 1 Verdon Chayo. . Referring Provider: Perez Tinsley, Aron [facility] 6A/6B/12A, [place], [address]. tel:[phone] [place] [address], [address], [place], [place], [id number], [place] tel:[phone] [place] No Information Mar-1 - 1 Shayne Domingo. . Referring Provider: Perez iTnsley, 49[address] [facility] [address] 6A/6B/12A, [place], [address]. tel:[phone] [facility], [address] [address], [place], [place], [id number], tel:[phone] [place] No Information Mar-0 - 1 Shayne Domingo. . Referring Provider: Perez Tinsley, 49[address] [facility] 6A/6B/12A, [place], [address]. tel:[phone] [facility] [address], [id number], tel:[phone] [facility] No Information Mar-0 - 1 Brady Gill . . Referring Provider: Perez Tinsley, 49[address] [facility] 6A/6B/12A, [place], [address]. tel:[phone] Family History Family Member Type Diagnosis Age At Onset No Information Payers Payer name Insurance type Covered republican ID donte mcdonnell(s) Penemarie K Murphy CI [id number] Medicare [place] [id number] Social History Type Description Quantity Date Captured [...] No Information Instructions Date Instruction Additional Infor mation Prescribed activity/exercise edu cation Related to Overweight [...]
--- OUTSIDE RECORDS SUMMARY | 2024-06-17 17:01 | XMS_ITS | Encounter Summary ---
Author Organization [facility] Address 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 Gender Identity Not on file Sexual Orientation Not on file documented as of this encounter Plan of Treatment Upcoming Encounters Date Type Department Care Team (Late st Contact Info) Description 07/31/2024 9:30 AM CDT Office Visit [facility] Oncology and Hematology - Kevin [address] [facility] [address] [place] [address] Ray Richards MD [address] [facility] [address] [place] [address] documented as of this encounter Visit Diagnoses Diagnosis Unspecified hearing loss documented in this encounter Care Teams Scaler Packer Relationship Specialty Start Date End Date Charles Armendariz DO [address] [facility] [address] [place] [address] PCP - General Internal Medicine 11/04/22 documented as of this encounter
--- OUTSIDE RECORDS SUMMARY | 2024-06-17 17:01 | XMS_ITS | Encounter Summary ---
Author Organization [facility] Address 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 Gender Identity Not on file Sexual Orientation Not on file documented as of this encounter Plan of Treatment Upcoming Encounters Date Type Department Care Team (Late st Contact Info) Description 07/31/2024 9:30 AM CDT Office Visit [facility] Oncology and Hematology - Kevin [address] [facility] [address] [place] [address] Ray Richards MD [address] [facility] [address] [place] [address] documented as of this encounter Visit Diagnoses Diagnosis Unspecified hearing loss documented in this encounter Care Teams Physician Relations Specialist Relationship Specialty Start Date End Date Charles Armendariz DO [address] [facility] [address] [place] [address] PCP - General Internal Medicine 11/04/22 documented as of this encounter
--- OUTSIDE RECORDS SUMMARY | 2024-06-17 17:01 | XMS_ITS | Clinical Summary ---
Author Organization [facility] Address [address] [place] [address] Care Team Providers Care Lumber Tailer Name Role Phone Charles Armendariz DO Primary Care Provider [phone] David Vanegas MD Unavailable [phone] Allergies Active Allergy Reactions Criticality Noted Date Comments Ciprofloxacin Nausea only Low 09/08/2022 Daptomycin Diarrhea Low 06/29/2020 Doxycycline Unknown Low 09/19/2019 Canagliflozin Diarrhea Low 10/28/2021 Empagliflozin Diarrhea Low 04/21/2021 Lisinopril Cough Low 08/13/2018 Semaglutide Diarrhea High 01/27/2021 Povidone-Iodine Rash Medium 05/05/2017 Dbliyjy-Jhp-Drl Reductase Inhibitors Muscle pain Medium 11/05/2020 Valsartan [...] total) by mouth every morning Activ e kr-vmaexxv-drp -iron fm-FA-vitK 18 mg-400 mcg- 25 mcg [...] symptoms. Assessment & Plan (03/15/2024 10:09 AM MOTORCYCLE REPAIRER): - Doing well on INH/B6 for LTBI, [...] 10/24/2023 Assessment & Plan (04/30/2024 2:13 PM MOTORCYCLE REPAIRER): Chronic problem. Currently taking Atorvastatin 40mg. Last lipid panel: 03/09/23 LDL=37 VP=551. Will update labs. Does not mychart. Verified phone #/address to contact re: results. Assessment & Plan (10/24/2023 3:19 PM CDT): Chronic problem. Currently taking Atorvastatin 40mg. Last lipid panel: 03/09/23 LDL=37 YV=524. Positive TB test 09/19/2023 Assessment & Plan (01/01/2024 12:37 PM MOTORCYCLE REPAIRER): - Unable to tolerate rifabutin as she [...] CBC and CMP in 1 month at [facility] - Ok to start biologic for rheumatoid arthritis after she has been on rifabutin for 1 month. Will forward note to rheumatology Class 2 severe obesity due t o excess calories with serious comorbidity and body mass index (BMI) of 39.0 to 39.9 in adult 03/09/2023 Assessment & Plan (03/09/2023 10:05 AM MOTORCYCLE REPAIRER): Discussed healthy diet and importance of regular [...] 03/22/2022 Assessment & Plan (03/22/2022 8:59 AM MOTORCYCLE REPAIRER): Chronic problem, stable. Discussed healthy diet and [...] (07/02/2020): Added automatically from request for surgery [id number] Median neuropathy, left 11/19/2019 Overview (11/19/2019): Added automatically from request for surgery [id number] Ulnar neuropathy of left upper extremity 020 Overview (11/19/2019): Added automatically from request for surgery [id number] Anxiety 05/24/2019 Asthma 05/24/2019 Brachial neuritis 05/24/2019 Major depressive disorder 05/24/2019 Gastroesophageal reflux disease without esophagi tis 05/24/2019 Gout 05/24/2019 Spleen hematoma 05/24/2019 Osteoarthritis 05/24/2019 Primary localized osteoarthrosis of shoulder reg ion 05/24/2019 Recurrent dislocation of shoulder region 020 Hypothyroidism 04/10/2019 Assessment & Plan (04/30/2024 2:14 PM MOTORCYCLE REPAIRER): Chronic problem. Currently taking levothyroxine 100mcg. Clinically [...] 1.23 Assessment & Plan (03/09/2023 9:54 AM MOTORCYCLE REPAIRER): Chronic problem. Currently taking levothyroxine 100mcg. 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 Currently taking Gabapentin 300mg bid. [...] barefoot. Assessment & Plan (03/09/2023 9:47 AM MOTORCYCLE REPAIRER): Chronic problem. Currently taking gabapentin. Aware to check feet nightly & not go barefoot. Assessment & Plan (09/08/2022 11:14 AM CDT): Chronic problem. Currently taking gabapentin. Aware to check feet nightly. Assessment & Plan (03/21/2022 8:54 AM MOTORCYCLE REPAIRER): Chronic problem. Currently taking gabapentin. Aware to check feet nightly. Assessment & Plan (05/13/2021 10:51 AM CDT): Foot care discussed Assessment & Plan (11/05/2020 2:29 PM CDT): Foot care discussed The patient does not feel that Neurontin helps of will discontinue Assessment & Plan (04/02/2020 1:40 PM MOTORCYCLE REPAIRER): On Neurontin Foot care discussed Assessment & Plan (10/19/2017 10:52 AM CDT): Foot care discussed On neurointin Advised on seeing foot dr. Hyperlipidemia 10/19/2017 Assessment & Plan (03/09/2023 9:48 AM MOTORCYCLE REPAIRER): Chronic problem. Current on atorvastatin 40mg daily. Last lipid panel: 11/04/21 LDL=26, FN=554. Will update labs today. Does not mychart. Verified phone #/address to contact re: results. Assessment & Plan (09/08/2022 11:14 AM CDT): Chronic problem. Current on atorvastatin 40mg daily. 11/04/21 LDL=26. No changes. Assessment & Plan (03/21/2022 8:53 AM MOTORCYCLE REPAIRER): Chronic problem. Current on atorvastatin 40mg daily. [...] Lipitor Assessment & Plan (04/02/2020 1:37 PM MOTORCYCLE REPAIRER): Goal of treatment , LDL cholesterol less [...] therapy. Assessment & Plan (03/12/2019 12:24 PM MOTORCYCLE REPAIRER): Goal of treatment , LDL cholesterol less [...] 01/17/2017 Assessment & Plan (04/30/2024 2:42 PM MOTORCYCLE REPAIRER): Chronic problem, A1c stable but uncontrolled at [...] UTD on DM eye exam (03/06/[address] [facility]). Had appt summer 2023; letter sent to [...] UTD on DM eye exam (03/06/[address] [facility]). Discussed need to increase activity [...] UTD on DM eye exam (03/06/[address] [facility]). Discussed need to increase activity [...] infection. Assessment & Plan (03/09/2023 10:02 AM MOTORCYCLE REPAIRER): Chronic problem, A1c worsening. A1c breanna from [...] re: results. DM eye exam 03/06/[address] [facility]. Letter sent to get copy of report. [...] housework. Assessment & Plan (03/22/2022 9:20 AM MOTORCYCLE REPAIRER): Chronic problem, not at goal. Continue: Metformin [...] consider. Assessment & Plan (03/12/2019 12:23 PM MOTORCYCLE REPAIRER): Hba1c was Lab Results Component Value Date [...] goal hba1c is under 7.0 to prevent terminal block assembler diabetes complications ( eye , kidney and [...] Humalog. Assessment & Plan (03/30/2017 12:29 PM MOTORCYCLE REPAIRER): A1c 6.6 but she does have anemia with elevated RDW. Bydureon since 12/2016 may have also helped to improve A1c but will be stopping that for now. Will evaluate again at next Ov. Assessment & Plan (01/17/2017 10:11 AM MOTORCYCLE REPAIRER): Hba1c was 8.8 today, indicating inadequate DM [...] 01/17/2017 Assessment & Plan (04/30/2024 2:14 PM MOTORCYCLE REPAIRER): Chronic problem, well controlled on current Metoprolol XL 25mg daily, furosemide 20mg daily Will update labs today. Does not mychart. Verified phone #/address to contact re: results. Assessment & Plan (03/09/2023 9:47 AM MOTORCYCLE REPAIRER): Chronic problem, well controlled on current Metoprolol XL 25mg daily, furosemide 20mg daily Will update labs today. Does not mychart. Verified phone #/address to contact re: results. Assessment & Plan (09/08/2022 11:14 AM CDT): Chronic problem, well controlled on current Metoprolol XL 25mg daily, furosemide 20mg daily No changes at this time. Assessment & Plan (03/22/2022 9:00 AM MOTORCYCLE REPAIRER): Chronic problem, well controlled on current metoprolol XL 25mg daily. No changes at this time. Assessment & Plan (07/02/2020 4:04 PM CDT): Goal blood pressure is less than 140/85 Low salt diet was discussed andd recommended The importance of daily aerobic exercise was also emphasized. Continue current meds Assessment & Plan (04/02/2020 1:38 PM MOTORCYCLE REPAIRER): Goal blood pressure is less than 140/85 [...] MA. Assessment & Plan (03/12/2019 12:24 PM MOTORCYCLE REPAIRER): Goal blood pressure is less than 140/85 [...] medications. Assessment & Plan (03/30/2017 12:33 PM MOTORCYCLE REPAIRER): Controlled on current medications. Assessment & Plan (01/17/2017 10:12 AM MOTORCYCLE REPAIRER): Goal blood pressure is less than 140/85 [...] finger 03/29/2011 Atherosclerotic heart diseas e of [place] coronary artery without angina pectoris 09/09/2010 Chronic [...] atorvastatin Assessment & Plan (03/30/2017 12:33 PM MOTORCYCLE REPAIRER): Continue statin Obesity due to excess calories 11/05/2015 03/21/2022 Assessment & Plan (03/30/2017 12:20 PM MOTORCYCLE REPAIRER): Current exercise will be reduced with completion of Pt. Advised to add walking or other home based exercise to current house work. Elevated erythrocyte sedimentation rate 12/27/2013 03/21/2022 Need for immunization against influenza 12/27/2013 03/21/2022 Encounters Date Type Department Care Team Description 05/16/2024 9:40 AM CDT Office Visit [facility] Infectious Diseases [address] [place] [address] [address] [place] [address] Ana Laura Ramires NP LTBI (latent tuberculosis infection) (Primary Dx) 05/08/2024 Orders Only [facility] Diabetes and Endocrinology [address] [place] [address] [phone] Oliver Joel MD 05/02/2024 Results Follow-Up [facility] [address] [place] [address] [phone] Stacy Hernandez NP 04/30/2024 2:45 PM MOTORCYCLE REPAIRER Lab [facility] Outpatient Lab at [address] [phone] Type 2 diabetes mellitus with hyperglycemia, with long-term current use of insulin (HCC) (Primary Dx) 04/30/2024 2:40 PM MOTORCYCLE REPAIRER - 04/30/2024 11:59 PM MOTORCYCLE REPAIRER Hospital Encounter [address] [address] Type 2 diabetes mellitus with hyperglycemia, with long-term current use of insulin (HCC); Hypertension associated with type 2 diabetes mellitus (HCC); Hyperlipidemia associated with type 2 diabetes mellitus (HCC); Hypothyroidism, unspecified type Discharge Disposition: Discharge to home or self care 04/30/2024 2:00 PM MOTORCYCLE REPAIRER Office Visit [facility] [address] [place] [address] [phone] Stacy Hernandez NP Type 2 diabetes mellitus with hyperglycemia, with long-term current use of insulin (HCC) (Primary Dx); Hyperlipidemia associated with type 2 diabetes mellitus (HCC); Diabetic polyneuropathy associated with type 2 diabetes mellitus (HCC); Hypertension associated with type 2 diabetes mellitus (HCC); Hypothyroidism, unspecified type 04/30/2024 Orders Only [facility] Medical [facility] Diabetes and Endocrinology [address] [place] [phone] Oliver Joel MD 04/26/2024 Telephone [facility] [address] [place] [address] [phone] Schleeper, Stacy R., LASER BEAM CUTTER Forms/questionnaires (RN PRACTITIONER) 04/09/2024 Telephone [facility] Infectious Diseases [address] [place] [address] [address] [place] [address] Chayo Alcazar LCSW 04/04/2024 Telephone [facility] Rheumatology [address] [place] [address] JodieArnulfo tranise 04/02/2024 11:40 AM MOTORCYCLE REPAIRER Office Visit [facility] Rheumatology [address] [facility] 2nd Floor [address] [place] [address] Shawanda De La Cruz, DEISY Rheumatoid arthritis involving multiple sites with positive rheumatoid factor (HCC) (Primary Dx); High risk medication use 04/02/2024 11:10 AM MOTORCYCLE REPAIRER Clinical Support [facility] Bone Health [address] [facility] [address] [place] [address] Other specified disorders of bone density and structure, left thigh (Primary Dx); Rheumatoid arthritis involving multiple sites with positive rheumatoid factor (HCC); 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; jail (current) use of anticoagulants from Last 3 Months Immunizations Immunization Administration [...] artery disease Coronary artery disease s/p silent IN Hammer toe Hammer toe; Comm ents: 06/17/2015 [...] on file Legal Sex Female 12:14 AM MOTORCYCLE REPAIRER Gender Identity Not on file Sexual Orientation [...] 11/04/2021, Additional history exists eGFR 04/30/2025 04/30/2024, 0302/2024, 03/26/2024, Additional history exists Osteoporosis Screening-Bone Density Scan 04/02/2026 04/02/2024, 09/23/2021, 09/23/2021 DTaP/Tdap/Td Vaccine (2 - Td or Tdap) 09/15/2031 09/14/2021 Hepatitis C Screening Completed 07/03/2023, 020 Influenza Vaccine Completed 01/01/2024, , 12/09/2019, Additional history exists Medical Devices Implanted Type Area Front Desk Associate Device Identifier Shelf Expiration Date Model / Serial / Lot Allosource [id number] Freeze Dried Chips Graft 15ml Bone Cancellous Cortical - [id number] Implanted:Qty: 1 on 08/14/2018 by Pradip Whalen MD at [facility] Bone Allosource 08/28/2022 [id number] / / [id number] Allosource [id number] Allogro Freeze Dried Graft 15ml Bone Demineralized Bone Matrix - [id number] Implanted:Qty: 1 on 08/14/2018 by Pradip Whalen MD at [facility] Bone Allosource 03/15/2023 [id number] / / [id number] Intraocular Lens Bilateral : Eye Orthohelix [id number] Maxtorque 4mm 37.5mm Cannulated Self Drill Foot Ankle Long Thread - [id number] Implanted:Qty: 1 on 08/14/2018 by Pradip Whalen MD at [facility] Right: Foot Orthohelix MSD-010-40- 375L / / [employer] [id number] Cristobal .062in 9in Style 1 Wire Fixation Stainless Steel - [id number] Implanted:Qty: 1 on 08/14/2018 by Pradip Whalen MD at [facility] Right: First Toe [employer] [id number] / / Orthohelix Mxl-002-2a Maxlock Extreme 2 Hole [place] Alpha Plate Bone Nonsterile - [id number] Implanted:Qty: 1 on 08/14/2018 by Pradip Whalen MD at [facility] Right: Foot Orthohelix MXL-002-2A / / Orthohelix [id number] Maxtorque 5.5mm 50mm Cannulated Self Drill Foot Ankle Long Thread - [id number] Implanted:Qty: 1 on 08/14/2018 by Pradip Whalen MD at [facility] Right: Foot Orthohelix MSD-010-55- 050L / / Orthohelix [id number] Maxtorque 5.5mm 55mm Cannulated Self Drill Foot Ankle Long Thread - [id number] Implanted:Qty: 1 on 08/14/2018 by Pradip Whalen MD at [facility] Right: Foot Orthohelix MSD-010-55- 055L / / Orthohelix [id number] Maxtorque 7mm 70mm Cannulated Self Drill Foot Ankle Petite Thread - [id number] Implanted:Qty: 1 on 08/14/2018 by Pradip Whalen MD at [facility] Right: Foot Orthohelix MSD-010-70- 070P / / Orthohelix [id number] 4mm 26mm Nonlock Foot Ankle Screw Bone Nonsterile Maxlock Extreme - [id number] Implanted:Qty: 2 on 08/14/2018 by Pradpi Whalen MD at [facility] Right: Foot Orthohelix FIELD TRAINING AGENT-011-402 6 / / Orthohelix [id number] Maxlock Extreme 4mm 28mm Nonlock Foot Ankle Screw Bone Nonsterile Latex Free - [id number] Implanted:Qty: 1 on 08/14/2018 by Pradip Whalen MD at [facility] Right: Foot Orthohelix FIELD TRAINING AGENT-011-402 8 / / Orthohelix [id number] Maxlock Extreme 4mm 24mm Nonlock Foot Ankle Screw Bone Nonsterile - [id number] Implanted:Qty: 1 on 08/14/2018 by Pradip Whalen MD at [facility] Right: Foot Orthohelix FIELD TRAINING AGENT-011-40- 24 / / Explanted Type Area Front Desk Associate Device Identifier Shelf Expiration Date Model / Serial / Lot Orthohelix Ict Managers-040 Decherd Wire Fixation Nonsterile Latex Free - [id number] Explanted:Qty: 2 on 08/14/2018 at [facility] Right: Foot Orthohelix FIELD TRAINING AGENT-040 / / Procedures Procedure Name Priority Date/Time Associated Diagnosis Comments EGFR Routine 04/30/2024 2:40 PM MOTORCYCLE REPAIRER Type 2 diabetes mellitus with hyperglycemia, with long-term current use of insulin (HCC) Hypertension associated with type 2 diabetes mellitus (HCC) TSH Routine 04/30/2024 2:40 PM MOTORCYCLE REPAIRER Hypothyroidism, unspecified type T4, FREE Routine 04/30/2024 2:40 PM MOTORCYCLE REPAIRER Hypothyroidism, unspecified type LIPID PANEL Routine 04/30/2024 2:40 PM MOTORCYCLE REPAIRER Type 2 diabetes mellitus with hyperglycemia, with long-term current use of insulin (HCC) Hyperlipidemia associated with type 2 diabetes mellitus (HCC) COMPREHENSIVE METABOLIC PANEL Routine 04/30/2024 2:40 PM MOTORCYCLE REPAIRER Type 2 diabetes mellitus with hyperglycemia, with long-term current use of insulin (HCC) Hypertension associated with type 2 diabetes mellitus (HCC) ALBUMIN CREATININE RATIO, URINE Routine 04/30/2024 2:40 PM MOTORCYCLE REPAIRER Type 2 diabetes mellitus with hyperglycemia, with long-term current use of insulin (HCC) POCT GLUCOSE Routine 04/30/2024 1:58 PM MOTORCYCLE REPAIRER Type 2 diabetes mellitus with hyperglycemia, with long-term current use of insulin (HCC) POCT HEMOGLOBIN A1C Routine 04/30/2024 1 :58 PM MOTORCYCLE REPAIRER Type 2 diabetes mellitus with hyperglycemia, with long-term current use of insulin (HCC) COMPREHENSIVE METABOLIC PANEL Routine 04/27/2024 2:21 AM MOTORCYCLE REPAIRER DEXA AXIAL SKELETON BONE DENSITY 1 OR MORE SITES Schedule Routine, Read Routine (OP Routine) 04/02/2024 11:04 AM MOTORCYCLE REPAIRER Rheumatoid arthritis involving multiple sites with positive rheumatoid factor (HCC) COMPREHENSIVE METABOLIC PANEL (OUTREACH) Routine 03/26/2024 1:16 PM MOTORCYCLE REPAIRER LTBI (latent tuberculosis infection) CBC WITH AUTO DIFFERENTIAL Routine 03/26/2024 1:15 PM MOTORCYCLE REPAIRER LTBI (latent tuberculosis infection) HM DIABETES EYE EXAM Routine 09/04/2023 8:55 AM CDT HEPATITIS PANEL, ACUTE Routine 07/03/2023 10:42 AM CDT High risk medication use from Last 3 Months or Most Recently Relevant to Health Maintenance Results * (ABNORMAL) eGFR (04/30/2024 2:40 PM MOTORCYCLE REPAIRER) eGFR 44(L) >=60 mL/min/1. 73 m2 Comment: [...] of Race in Diagnosing Kidney Disease, JASN 202). The CKD-EPI equation should not be used for patients with unstable renal function and has not been validated in children and those over 70. Current interpretive data was last reviewed 2020. Blood 04/30/2024 2:40 PM MOTORCYCLE REPAIRER 04/30/2024 11:04 PM MOTORCYCLE REPAIRER us Stacybruno Hernandez LASER BEAM CUTTER LAB BLOOD ORDERABLES Valery l Result Performing Organization Address [facility] Co de Phone Number [facility] [address] [address] [facility] [place] [address] * (ABNORMAL) Albumin Creatinine Ratio, Urine (04/30/2024 2:40 PM MOTORCYCLE REPAIRER) Albumin Ur 3,067.5 mg/L Comment: Interpretive Data No reference range established. Current interpretive data was last revised 2018. Creatinine Ur 81.5 mg/dL [facility] Comment: Interpretive Data No reference range established. Current interpretive data was last revised 2018. Albumin Creatinine Ratio, Ur 3,764(H) 1 - 29 mg/g [facility] Urine 04/30/2024 2:40 PM MOTORCYCLE REPAIRER 04/30/2024 11:00 PM MOTORCYCLE REPAIRER us Stacy Hernandez LASER BEAM CUTTER LAB URINE ORDERABLES Valery l Result Performing Organization Address [facility] Co de Phone Number [facility] [address] [address] [facility] [place] [address] * TSH (04/30/2024 2:40 PM MOTORCYCLE REPAIRER) Pathologist [facility] Thyroid Stimulating Hormone 2.51 0.30 - 4.20 mcIUnit/mL Blood 04/30/2024 2:40 PM MOTORCYCLE REPAIRER 04/30/2024 11:00 PM MOTORCYCLE REPAIRER Stacy Hernandez LASER BEAM CUTTER LAB BLOOD ORDERABLES Valery l Result Performing Organization Address [facility] Co de Phone Number [facility] [address] [address] [facility] [place] [address] * T4, free (04/30/2024 2:40 PM MOTORCYCLE REPAIRER) Free T4 1.27 0.90 - 1.70 ng/dL Blood 04/30/2024 2:40 PM MOTORCYCLE REPAIRER 04/30/2024 11:00 PM MOTORCYCLE REPAIRER us Stacy Hernandez LASER BEAM CUTTER LAB BLOOD ORDERABLES Valery l Result [facility] [address] [facility] [place] [address] * Lipid panel (04/30/2024 2:40 PM MOTORCYCLE REPAIRER) Cholesterol 119 30 - 199 mg/dL Comment: [...] on 2023. Non-HDL Cholesterol 68 mg/dL [facility] Comment: Interpretive Data Ages < [...] revised on 2017. Chol/HDL ratio 2 [facility] Blood 04/30/2024 2:40 PM MOTORCYCLE REPAIRER 04/30/2024 11:00 PM MOTORCYCLE REPAIRER us Stacy Hernandez LASER BEAM CUTTER LAB BLOOD ORDERABLES Valery l Result Performing Organization Address [facility]/ZIP Co de Phone Number [facility] [address] Department [place] [address] * (ABNORMAL) Comprehensive metabolic panel (04/30/2024 2:40 PM MOTORCYCLE REPAIRER) Sodium 137 135 - 145 mmol/L Potassium, [...] Units/L CERNER CH Blood 04/30/2024 2:40 PM MOTORCYCLE REPAIRER 04/30/2024 11:00 PM MOTORCYCLE REPAIRER Stacy Hernandez LASER BEAM CUTTER LAB BLOOD ORDERABLES Valery l Result Performing Organization Address [facility]/ZIP Co de Phone Number [facility] [address] [facility] [place] [address] * (ABNORMAL) POCT hemoglobin A1c (04/30/2024 1:58 PM MOTORCYCLE REPAIRER) [facility] Hemoglobin A1C, POC 8.0 4.0 - 5.6 % Blood 04/30/2024 1:58 PM MOTORCYCLE REPAIRER us Stacy Hernandez LASER BEAM CUTTER POINT OF CARE TEST ORDERA BLES Final Result * (ABNORMAL) POCT glucose (04/30/2024 1:58 PM MOTORCYCLE REPAIRER) [facility] Glucose Blood, POC 324 mg/dL Blood 04/30/2024 1:58 PM MOTORCYCLE REPAIRER us Stacy Hernandez LASER BEAM CUTTER POINT OF CARE TEST ORDERA BLES Final Result * (ABNORMAL) Comprehensive metabolic panel (04/27/2024 2:21 AM MOTORCYCLE REPAIRER) [facility] SCRIBED Sodium 134(A) 136 - [...] Units/L EXTERNAL LAB SCRIBED eGFR in NonAfrican Maltese 37 <60 - NA EXTERNAL LAB Blood 04/27/2024 2:21 AM MOTORCYCLE REPAIRER us Historical Provider MD LAB BLOOD ORDERABLES Edit ed Result - Final EXTERNAL LAB * Dexa Axial Skeleton Bone Density 1 or 2 Site (04/02/2024 11:04 AM MOTORCYCLE REPAIRER) Anatomical Region Laterality Modality Body N/A Radiographic Sheron ging Narrative 04/02/2024 2:27 PM MOTORCYCLE REPAIRER Patient Name: Aleyda Dobbs Date of : 1950 Date of scan: 04/02/2024 Bone mineral density was performed on a HoloLicenseStream Discovery Densitometer. Based on machine cross-calibration and [...] by the International Society of Clinical Densitometry. [id number] Shawanda De La Cruz NP [facility] [place]ED[place] Final R esult * (ABNORMAL) Comprehensive metabolic panel (Outreach) (03/26/2024 1:16 PM MOTORCYCLE REPAIRER) Pathologist [facility] Glucose 173(H) 65 - 99 mg/dL [facility] Comment: For someone without known diabetes, a glucose value >125 mg/dL indicates that they may have diabetes and this should be confirmed with a follow-up test. Fasting reference interval BUN 37(H) 7 - 25 mg/dL [facility] Creatinine 1.39(H) 0.60 - 1.00 mg/dL [facility] eGFR 41(L) > OR = 60 mL/min/1.7 3m2 [facility] BUN/creat ratio 27(H) 6 - 22 (calc) [facility] Sodium 138 135 - 146 mmol/L [facility] Potassium 4.1 3.4 - 4.8 mmol/L [facility] Chloride 107 98 - 110 mmol/L [facility] CO2 25 20 - 32 mmol/L [facility] Calcium 9.0 8.6 - 10.4 mg/dL [facility] Protein, Total 7.1 6.4 - 8.4 g/dL [facility] Albumin 3.4(L) 3.6 - 5.1 g/dL [facility] Globulin 3.7 2.2 - 4.0 g/dL [...] [facility] Blood 03/26/2024 1:16 PM MOTORCYCLE REPAIRER 03/26/2024 1:17 PM MOTORCYCLE REPAIRER us Ana Laura Ramires LASER BEAM CUTTER LAB BLOOD ORDERABLES Valery rivera Result [facility] [id number] [address] [place] [place] [address] * (ABNORMAL) CBC with auto differential (03/26/2024 1:15 PM MOTORCYCLE REPAIRER) WBC 4.5 3.8 - 10.8 Thousand/u L [facility] RBC, POC 3.35(L) 3.80 - 5.10 Million/uL [facility] Hgb 8.9(L) 11.7 - 15.5 g/dL [facility] [...] [facility] Blood 03/26/2024 1:15 PM MOTORCYCLE REPAIRER 03/26/2024 1:15 PM MOTORCYCLE REPAIRER us Ana Laura Ramires LASER BEAM CUTTER LAB BLOOD ORDERABLES Valery l Result [facility] [address] [place] [address] * (ABNORMAL) DIABETES EYE EXAM (09/04/2023 8:55 AM CDT) us Historical Provider HEALTH MAINTENANCE Final Result * Hepatitis panel, acute Blood (07/03/2023 10:42 AM CDT) Hep A IgM Nonreactive Nonreactive Hep B core IgM Nonreactive Nonreactive [facility] Hep C Ab Nonreactive Nonreactive [facility] Comment:Antibodies to HCV no t detected. Does NOT exclude the possibility of recent exposure to HCV. Current interpretive data was last revised on 21 HepBsAg Nonreactive Nonreactive [facility] Blood 07/03/2023 10:4 2 AM CDT 07/03/2023 2:00 PM CDT us Shawanda De La Cruz NP LAB MICROBIOLOGY - GENERAL ORDERABLES Final Result [facility] Department [place] [address] from Last 3 Months or Most Recently Relevant to Health Maintenance Insurance MEDICARE [employer] OPEN ACCESS MEDICARE [employer] OPEN ACCESS MEDICARE [employer] OPEN ACCESS Advance Directives For more information, please contact: [phone] * Full Code (Latest Code Status on File) Date Activated Date Inactivated Comments 07/20/2020 2:30 PM 07/21/2020 6:17 PM * Full Code Date Activated Date Inactivated Comments 08/14/2018 8:57 PM 08/15/2018 6:35 PM Care Teams Lumber Tailer Relationship Specialty Start Date End Date Charles Armendariz DO PCP - General 05/27/16 David Vanegas MD [address] [place] [address] Consulting Physician Cardiology 07/20/18
[2024-06-17 21:07] LABS: Add Urine Microscopic? YES; Appearance Urine Cloudy (Clear); Bacteria Urine 4+ /hpf; Bilirubin Urine Negative (Negative); Blood Urine 1+ (Negative); Color Urine Yellow (Yellow); Glucose Urine UA 1+ mg/dL (Negative); Ketones Urine Negative (Negative); Leukocyte Esterase Ur 2+ LEU/UL (Negative); Nitrate Urine Negative (Negative); Non Pathogenic Casts 0-2; Protein Urine 3+ mg/dL (Negative); RBC Urine 0-2 /hpf (0-2); Specific Grav Ur 1.018 (1.001-1.035); Squamous Epithelial Cell Urine None Seen /hpf (Few); Urobilinogen Urine 0.2 mg/dL (<2.0); WBC Urine >100 /hpf (0-3)
== END 2024-06-17 15:00 | disposition home or self-care (01) ==
LOC: ANHGOSHLAB 15:01
PROVIDERS: PCP Internal Medicine; Visit Provider Clinical Nurse Specialist
DX: R39.9 Unspecified symptoms and signs involving the genitourinary system (principal)
CPT/HCPCS: 81001; 87086; 87186

== ENCOUNTER 2024-06-20 13:57 | Outpatient (CLI) | payer OTHER, MEDICARE, BC, SELFPAY ==
--- NOTE | ~2024-06-20 | MR_ITS ---
EXAMINATION: MR elbow RT wo con DATE: 06/20/2024 15:24 INDICATION: Right elbow pain TECHNIQUE: Magnetic resonance imaging (MRI) of the right elbow was performed without intravenous cont rast. Sequences included coronal, axial, and sagittal PD-weighted FS FSE and coronal, axial, and sagi ttal PD-weighted FSE. COMPARISON: None FINDINGS: Osseous/other: Normal alignment. Normal marrow signal with no marrow edema, fracture, osteochondral lesion or patho logic marrow replacing process. Tendons: Triceps and brachialis tendons are normal. Mild tendinopathy without discrete tear at the radial inse rtion of the distal biceps brachii tendon. Common flexor tendon wad is normal. Mild tendinopathy with out tear at the lateral epicondylar origin of the common extensor tendon wad. Ligaments: The medial and lateral collateral ligament complexes are normal. Cubital tunnel: There are postoperative changes of the medial side of the elbow consistent with cubital condyle relea se with transposition of the ulnar nerve which now travels proximal to distally anterior to the media l epicondyle. Fluid: Physiologic amount of fluid the elbow joint. There is subcutaneous edema posterior to the olecranon. IMPRESSION: 1. Mild tendinopathy without tear at the distal biceps brachii tendon at the lateral condylar origin of the common extensor tendon wad. 2. Postoperative change of prior cubital tunnel release with anterior ulnar nerve transposition. Reviewed, dictated and finalized at location A. IMPRESSION: 1. Mild tendinopathy without tear at the distal biceps brachii tendon at the la teral condylar origin of the common extensor tendon wad. 2. Postoperative change of prior cubital tunnel release with anterior ulnar ner ve transposition.
--- OUTSIDE RECORDS SUMMARY | 2024-06-20 15:11 | XMS_ITS | Clinical Summary ---
Author Organization [facility] Address [address] [place] [address] Care Team Providers Care Tape Sewer Name Role Phone Tammy Arroyo RN Unavailable [phone] Charles Armendariz DO Primary Care Provider [phone] Source Comments [facility],non-owned Affiliates and Associated Physician Practices is amultiple site organization consisting of ambulatory clinics and hospital sitesin [place], [place], [place] and [place]. This disclosure is being madepursuant to the Care Everywhere program and may not contain all information available regarding this patient. Last updated 17.[facility] Allergies Active Allergy Reactions Criticality Noted Date Comments Povidone Iodine Rash Medium 05/05/2017 Valsartan Urticaria Medium 03/30/2017 Vancomycin Urticaria Medium 11/05/2015 Medications * Be aware that medications may not be up to date on this document. Alwaysverify current medications with the patient. 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 Gender Identity Not on file Sexual Orientation [...] 105.7 kg (233 lb) 05/05/2017 6:48 AM ASSISTANT DIRECTOR OF ADMISSIONS Height 161.3 cm (5' 3.5 ) 05/05/2017 6:48 AM ASSISTANT DIRECTOR OF ADMISSIONS Body Mass Index 40.63 05/05/2017 6:48 AM ASSISTANT DIRECTOR OF ADMISSIONS Plan of Treatment Health Maintenance Due Date [...] patient's age to complete this topic Insurance [facility]IC[facility] Address: [address] [place] [address] MEDICARE [facility] Advance Directives * Full Code (Latest Code Status on File) Date Activated Date Inactivated Comments 05/26/2015 11:04 PM 06/01/2015 6:08 PM * Full Code Date Activated Date Inactivated Comments 05/26/2015 7:39 PM 05/26/2015 11:04 PM Care Teams Tape Sewer Relationship Specialty Start Date End Date Charles Armendariz DO PCP - General 06/04/20 Tammy Arroyo, RN Glued Wood Tester 05/26/15
--- OUTSIDE RECORDS SUMMARY | 2024-06-20 15:12 | XMS_ITS | Encounter Summary ---
Author Organization [facility] [employer] [facility] Address [address] [place] [address] Care Team Providers Care Drywall Contractor Name Role Phone Charles Armendariz DO Primary Care Provider Encounter Details Date Type Department Care Team (Late Contact Info) Description 2024 Orders Only [facility] Oncology and Hematology [address] [place] [address] Ray Richards MD [address] [employer] [address] [place] [id number] Social History Tobacco Use Types Packs/Day Years [...] on file Legal Sex Female 3:40 AM 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 Gender Identity Not on file Sexual Orientation Not on file documented as of this encounter Plan of Treatment Upcoming Encounters Date Type Department Care Team (Late Contact Info) Description 07/31/2024 9:30 AM CDT Office Visit [facility] Oncology and Hematology - [address] [place] [address] Ray Richards MD [address] [place] [phone] documented as of this encounter Procedures Procedure Name Priority Date/Time Associated Diagnosis Comments CBC MIXED CELL DIFFERENTIAL Routine 2024 12:58 PM CDT documented in this encounter Results * CBC MIXED CELL DIFFERENTIAL (2024 12:58 PM CDT) Blood Ray Richards MD HEMATOLOGY ORDERABLES Final Res ult documented in this encounter Visit Diagnoses Not on filedocumented in this encounter Care Teams Drywall Contractor Relationship Specialty Start Date End Date Charles Armendariz DO [address] [address] PCP - General Internal Medicine 11/04/22 documented as of this encounter
--- OUTSIDE RECORDS SUMMARY | 2024-06-20 15:12 | XMS_ITS | Clinical Summary ---
Author Organization [facility] Address [address] [place] [address] Care Team Providers Care Cream Gatherer Name Role Phone Charles Armendariz DO Primary Care Provider [phone] David Vanegas MD Unavailable Allergies Active Allergy Reactions Criticality Noted Date Comments Ciprofloxacin Nausea only Low 09/08/2022 Daptomycin Diarrhea Low 06/29/2020 Doxycycline Unknown Low 09/19/2019 Canagliflozin Diarrhea Low 10/28/2021 Empagliflozin Diarrhea Low 04/21/2021 Lisinopril Cough Low 08/13/2018 Semaglutide Diarrhea High 01/27/2021 Povidone-Iodine Rash Medium 05/05/2017 Vcfqzhx-Leq-Xjk Reductase Inhibitors Muscle pain Medium 11/05/2020 Valsartan [...] total) by mouth every morning Activ e cq-znndbef-wgg -iron fm-FA-vitK 18 mg-400 mcg- 25 mcg [...] symptoms. Assessment & Plan (03/15/2024 10:09 AM JANITOR): - Doing well on INH/B6 for LTBI, [...] 10/24/2023 Assessment & Plan (04/30/2024 2:13 PM JANITOR): Chronic problem. Currently taking Atorvastatin 40mg. Last lipid panel: 03/09/23 LDL=37 NF=964. Will update labs. Does not mychart. Verified phone #/address to contact re: results. Assessment & Plan (10/24/2023 3:19 PM CDT): Chronic problem. Currently taking Atorvastatin 40mg. Last lipid panel: 03/09/23 LDL=37 GI=497. Positive TB test 09/19/2023 Assessment & Plan (01/01/2024 12:37 PM JANITOR): - Unable to tolerate rifabutin as she [...] CBC and CMP in 1 month at [facility] - Ok to start biologic for rheumatoid arthritis after she has been on rifabutin for 1 month. Will forward note to rheumatology Class 2 severe obesity due t o excess calories with serious comorbidity and body mass index (BMI) of 39.0 to 39.9 in adult 03/09/2023 Assessment & Plan (03/09/2023 10:05 AM JANITOR): Discussed healthy diet and importance of regular [...] 03/22/2022 Assessment & Plan (03/22/2022 8:59 AM JANITOR): Chronic problem, stable. Discussed healthy diet and [...] (07/02/2020): Added automatically from request for surgery [id number] Median neuropathy, left 11/19/2019 Overview (11/19/2019): Added automatically from request for surgery [id number] Ulnar neuropathy of left upper extremity 020 Overview (11/19/2019): Added automatically from request for surgery [id number] Anxiety 05/24/2019 Asthma 05/24/2019 Brachial neuritis 05/24/2019 Major depressive disorder 05/24/2019 Gastroesophageal reflux disease without esophagi tis 05/24/2019 Gout 05/24/2019 Spleen hematoma 05/24/2019 Osteoarthritis 05/24/2019 Primary localized osteoarthrosis of shoulder reg ion 05/24/2019 Recurrent dislocation of shoulder region 020 Hypothyroidism 04/10/2019 Assessment & Plan (04/30/2024 2:14 PM JANITOR): Chronic problem. Currently taking levothyroxine 100mcg. Clinically [...] 1.23 Assessment & Plan (03/09/2023 9:54 AM JANITOR): Chronic problem. Currently taking levothyroxine 100mcg. 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 Currently taking Gabapentin 300mg bid. [...] barefoot. Assessment & Plan (03/09/2023 9:47 AM JANITOR): Chronic problem. Currently taking gabapentin. Aware to check feet nightly & not go barefoot. Assessment & Plan (09/08/2022 11:14 AM CDT): Chronic problem. Currently taking gabapentin. Aware to check feet nightly. Assessment & Plan (03/21/2022 8:54 AM JANITOR): Chronic problem. Currently taking gabapentin. Aware to check feet nightly. Assessment & Plan (05/13/2021 10:51 AM CDT): Foot care discussed Assessment & Plan (11/05/2020 2:29 PM CDT): Foot care discussed The patient does not feel that Neurontin helps of will discontinue Assessment & Plan (04/02/2020 1:40 PM JANITOR): On Neurontin Foot care discussed Assessment & Plan (10/19/2017 10:52 AM CDT): Foot care discussed On neurointin Advised on seeing foot dr. Hyperlipidemia 10/19/2017 Assessment & Plan (03/09/2023 9:48 AM JANITOR): Chronic problem. Current on atorvastatin 40mg daily. Last lipid panel: 11/04/21 LDL=26, KX=457. Will update labs today. Does not mychart. Verified phone #/address to contact re: results. Assessment & Plan (09/08/2022 11:14 AM CDT): Chronic problem. Current on atorvastatin 40mg daily. 11/04/21 LDL=26. No changes. Assessment & Plan (03/21/2022 8:53 AM JANITOR): Chronic problem. Current on atorvastatin 40mg daily. [...] Lipitor Assessment & Plan (04/02/2020 1:37 PM JANITOR): Goal of treatment , LDL cholesterol less [...] therapy. Assessment & Plan (03/12/2019 12:24 PM JANITOR): Goal of treatment , LDL cholesterol less [...] 01/17/2017 Assessment & Plan (04/30/2024 2:42 PM JANITOR): Chronic problem, A1c stable but uncontrolled at [...] UTD on DM eye exam (03/06/23 at [facility]). Had appt summer [...] UTD on DM eye exam (03/06/23 at [facility]). Discussed need to [...] UTD on DM eye exam (03/06/23 at [facility]). Discussed need to [...] infection. Assessment & Plan (03/09/2023 10:02 AM JANITOR): Chronic problem, A1c worsening. A1c breanna from [...] re: results. DM eye exam 03/06/23 at [facility]. Letter sent to [...] housework. Assessment & Plan (03/22/2022 9:20 AM JANITOR): Chronic problem, not at goal. Continue: Metformin [...] consider. 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 Assessment & Plan (03/30/2017 12:29 PM JANITOR): A1c 6.6 but she does have anemia with elevated RDW. Bydureon since 12/2016 may have also helped to improve A1c but will be stopping that for now. Will evaluate again at next Ov. Assessment & Plan (01/17/2017 10:11 AM JANITOR): Hba1c was 8.8 today, indicating inadequate DM [...] 01/17/2017 Assessment & Plan (04/30/2024 2:14 PM JANITOR): Chronic problem, well controlled on current Metoprolol XL 25mg daily, furosemide 20mg daily Will update labs today. Does not mychart. Verified phone #/address to contact re: results. Assessment & Plan (03/09/2023 9:47 AM JANITOR): Chronic problem, well controlled on current Metoprolol XL 25mg daily, furosemide 20mg daily Will update labs today. Does not mychart. Verified phone #/address to contact re: results. Assessment & Plan (09/08/2022 11:14 AM CDT): Chronic problem, well controlled on current Metoprolol XL 25mg daily, furosemide 20mg daily No changes at this time. Assessment & Plan (03/22/2022 9:00 AM JANITOR): Chronic problem, well controlled on current metoprolol XL 25mg daily. No changes at this time. Assessment & Plan (07/02/2020 4:04 PM CDT): Goal blood pressure is less than 140/85 Low salt diet was discussed andd recommended The importance of daily aerobic exercise was also emphasized. Continue current meds Assessment & Plan (04/02/2020 1:38 PM JANITOR): Goal blood pressure is less than 140/85 [...] MA. Assessment & Plan (03/12/2019 12:24 PM JANITOR): Goal blood pressure is less than 140/85 [...] medications. Assessment & Plan (03/30/2017 12:33 PM JANITOR): Controlled on current medications. Assessment & Plan (01/17/2017 10:12 AM JANITOR): Goal blood pressure is less than 140/85 [...] finger 03/29/2011 Atherosclerotic heart diseas e of [place] coronary artery without angina pectoris 09/09/2010 Chronic [...] atorvastatin Assessment & Plan (03/30/2017 12:33 PM JANITOR): Continue statin Obesity due to excess calories 11/05/2015 03/21/2022 Assessment & Plan (03/30/2017 12:20 PM JANITOR): Current exercise will be reduced with completion of Pt. Advised to add walking or other home based exercise to current house work. Elevated erythrocyte sedimentation rate 12/27/2013 03/21/2022 Need for immunization against influenza 12/27/2013 03/21/2022 Encounters Date Type Department Care Team Description 05/16/2024 9:40 AM CDT Office Visit [facility] Infectious Diseases [address] [place] [address] [address] [place] [address] Ana Laura Ramires NP LTBI (latent tuberculosis infection) (Primary Dx) 05/08/2024 Orders Only [facility] Diabetes and Endocrinology [address] [place] [address] [phone] Oliver Joel MD 05/02/2024 Results Follow-Up [facility] Diabetes and Endocrinology [address] [place] [address] [phone] Stacy Hernandez NP 04/30/2024 2:45 PM JANITOR Lab [facility] Outpatient Lab at [address] [phone] Type 2 diabetes mellitus with hyperglycemia, with long-term current use of insulin (HCC) (Primary Dx) 04/30/2024 2:40 PM JANITOR - 04/30/2024 11:59 PM JANITOR Hospital Encounter [address] [address] Type 2 diabetes mellitus with hyperglycemia, with long-term current use of insulin (HCC); Hypertension associated with type 2 diabetes mellitus (HCC); Hyperlipidemia associated with type 2 diabetes mellitus (HCC); Hypothyroidism, unspecified type Discharge Disposition: Discharge to home or self care 04/30/2024 2:00 PM JANITOR Office Visit [facility] Diabetes and Endocrinology [address] [place] [address] [phone] Stacy Hernandez NP Type 2 diabetes mellitus with hyperglycemia, with long-term current use of insulin (HCC) (Primary Dx); Hyperlipidemia associated with type 2 diabetes mellitus (HCC); Diabetic polyneuropathy associated with type 2 diabetes mellitus (HCC); Hypertension associated with type 2 diabetes mellitus (HCC); Hypothyroidism, unspecified type 04/30/2024 Orders Only [facility] Medical [facility] Diabetes and Endocrinology [address] [place] [phone] Oliver Joel MD 04/26/2024 Telephone [facility] Diabetes and Endocrinology [address] [place] [address] [phone] Schleeper, Stacy R., BASE MANAGER Forms/questionnaires (ASSISTANT PROFESSOR OF MUSIC) 04/09/2024 Telephone [facility] Infectious Diseases [address] [place] [address] [address] [place] [address] Chayo Alcazar LCSW 04/04/2024 Telephone [facility] Rheumatology [address] [place] [address] JodieArnulfo tranise 04/02/2024 11:40 AM JANITOR Office Visit [facility] Rheumatology [address] [facility] 2nd Floor [address] [place] [address] Shawanda De La Cruz, DEISY Rheumatoid arthritis involving multiple sites with positive rheumatoid factor (HCC) (Primary Dx); High risk medication use 04/02/2024 11:10 AM JANITOR Clinical Support [facility] Bone Health [address] [facility] [address] [place] [address] Other specified disorders of bone density and structure, left thigh (Primary Dx); Rheumatoid arthritis involving multiple sites with positive rheumatoid factor (HCC); 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; senior care (current) use of anticoagulants from Last 3 [...] artery disease Coronary artery disease s/p silent [place] Hammer toe Hammer toe; Comm ents: 06/17/2015 [...] on file Legal Sex Female 12:14 AM JANITOR Gender Identity Not on file Sexual Orientation [...] history exists Medical Devices Implanted Type Area Sales Service Route Manager Device Identifier Shelf Expiration Date Model / Serial / Lot Allosource [id number] Freeze Dried Chips Graft 15ml Bone Cancellous Cortical - [id number] Implanted:Qty: 1 on 08/14/2018 by Pradip Whalen MD at [facility] Bone Allosource 08/28/2022 [id number] / / [id number] Allosource [id number] Allogro Freeze Dried Graft 15ml Bone Demineralized Bone Matrix - [id number] Implanted:Qty: 1 on 08/14/2018 by Pradip Whalen MD at [facility] Bone Allosource 03/15/2023 [id number] / / [id number] Intraocular Lens Bilateral : Eye Orthohelix [id number] Maxtorque 4mm 37.5mm Cannulated Self Drill Foot Ankle Long Thread - [id number] Implanted:Qty: 1 on 08/14/2018 by Pradip Whalen MD at [facility] Right: Foot Orthohelix MSD-010-40- 375L / / [employer] [id number] Cristobal .062in 9in Style 1 Wire Fixation Stainless Steel - [id number] Implanted:Qty: 1 on 08/14/2018 by Pradip Whalen MD at [facility] Right: First Toe [employer] [id number] / / Orthohelix Mxl-002-2a Maxlock Extreme 2 Hole [place] Alpha Plate Bone Nonsterile - [id number] Implanted:Qty: 1 on 08/14/2018 by Pradip Whalen MD at [facility] Right: Foot Orthohelix MXL-002-2A / / Orthohelix [id number] Maxtorque 5.5mm 50mm Cannulated Self Drill Foot Ankle Long Thread - [id number] Implanted:Qty: 1 on 08/14/2018 by Pradip Whalen MD at [facility] Right: Foot Orthohelix MSD-010-55- 050L / / Orthohelix [id number] Maxtorque 5.5mm 55mm Cannulated Self Drill Foot Ankle Long Thread - [id number] Implanted:Qty: 1 on 08/14/2018 by Pradip Whalen MD at [facility] Right: Foot Orthohelix MSD-010-55- 055L / / Orthohelix [id number] Maxtorque 7mm 70mm Cannulated Self Drill Foot Ankle Petite Thread - [id number] Implanted:Qty: 1 on 08/14/2018 by Pradip Whalen MD at [facility] Right: Foot Orthohelix MSD-010-70- 070P / / Orthohelix [id number] 4mm 26mm Nonlock Foot Ankle Screw Bone Nonsterile Maxlock Extreme - [id number] Implanted:Qty: 2 on 08/14/2018 by Pradip Whalen MD at [facility] Right: Foot Orthohelix SEMICONDUCTOR WAFERS ETCHER STRIPPER-011-402 6 / / Orthohelix [id number] Maxlock Extreme 4mm 28mm Nonlock Foot Ankle Screw Bone Nonsterile Latex Free - [id number] Implanted:Qty: 1 on 08/14/2018 by Pradip Whalen MD at [facility] Right: Foot Orthohelix SEMICONDUCTOR WAFERS ETCHER STRIPPER-011-402 8 / / Orthohelix [id number] Maxlock Extreme 4mm 24mm Nonlock Foot Ankle Screw Bone Nonsterile - [id number] Implanted:Qty: 1 on 08/14/2018 by Pradip Whalen MD at [facility] Right: Foot Orthohelix SEMICONDUCTOR WAFERS ETCHER STRIPPER-011-40- 24 / / Explanted Type Area Sales Service Route Manager Device Identifier Shelf Expiration Date Model / Serial / Lot Orthohelix Spares Scheduler-040 [place] Wire Fixation Nonsterile Latex Free - [id number] Explanted:Qty: 2 on 08/14/2018 at [facility] Right: Foot Orthohelix SEMICONDUCTOR WAFERS ETCHER STRIPPER-040 / / Procedures Procedure Name Priority Date/Time Associated Diagnosis Comments EGFR Routine 04/30/2024 2:40 PM JANITOR Type 2 diabetes mellitus with hyperglycemia, with long-term current use of insulin (HCC) Hypertension associated with type 2 diabetes mellitus (HCC) TSH Routine 04/30/2024 2:40 PM JANITOR Hypothyroidism, unspecified type T4, FREE Routine 04/30/2024 2:40 PM JANITOR Hypothyroidism, unspecified type LIPID PANEL Routine 04/30/2024 2:40 PM JANITOR Type 2 diabetes mellitus with hyperglycemia, with long-term current use of insulin (HCC) Hyperlipidemia associated with type 2 diabetes mellitus (HCC) COMPREHENSIVE METABOLIC PANEL Routine 04/30/2024 2:40 PM JANITOR Type 2 diabetes mellitus with hyperglycemia, with long-term current use of insulin (HCC) Hypertension associated with type 2 diabetes mellitus (HCC) ALBUMIN CREATININE RATIO, URINE Routine 04/30/2024 2:40 PM JANITOR Type 2 diabetes mellitus with hyperglycemia, with long-term current use of insulin (HCC) POCT GLUCOSE Routine 04/30/2024 1:58 PM JANITOR Type 2 diabetes mellitus with hyperglycemia, with long-term current use of insulin (HCC) POCT HEMOGLOBIN A1C Routine 04/30/2024 1 :58 PM JANITOR Type 2 diabetes mellitus with hyperglycemia, with long-term current use of insulin (HCC) COMPREHENSIVE METABOLIC PANEL Routine 04/27/2024 2:21 AM JANITOR DEXA AXIAL SKELETON BONE DENSITY 1 OR MORE SITES Schedule Routine, Read Routine (OP Routine) 04/02/2024 11:04 AM JANITOR Rheumatoid arthritis involving multiple sites with positive rheumatoid factor (HCC) COMPREHENSIVE METABOLIC PANEL (OUTREACH) Routine 03/26/2024 1:16 PM JANITOR LTBI (latent tuberculosis infection) CBC WITH AUTO DIFFERENTIAL Routine 03/26/2024 1:15 PM JANITOR LTBI (latent tuberculosis infection) HM DIABETES EYE EXAM Routine 09/04/2023 8:55 AM CDT HEPATITIS PANEL, ACUTE Routine 07/03/2023 10:42 AM CDT High risk medication use from Last 3 Months or Most Recently Relevant to Health Maintenance Results * (ABNORMAL) eGFR (04/30/2024 2:40 PM JANITOR) eGFR 44(L) >=60 mL/min/1. 73 m2 Comment: [...] last reviewed 2020. Blood 04/30/2024 2:40 PM JANITOR 04/30/2024 11:04 PM JANITOR us Stacybruno Hernandez BASE MANAGER LAB BLOOD ORDERABLES Valery l Result Performing Organization Address [facility] Co de Phone Number [facility] [address] [address] [facility] [employer] [place] [address] * (ABNORMAL) Albumin Creatinine Ratio, Urine (04/30/2024 2:40 PM JANITOR) Albumin Ur 3,067.5 mg/L Comment: Interpretive Data No reference range established. Current interpretive data was last revised 2018. Creatinine Ur 81.5 mg/dL [facility] Comment: Interpretive Data No reference range established. Current interpretive data was last revised 2018. Albumin Creatinine Ratio, Ur 3,764(H) 1 - 29 mg/g [facility] Urine 04/30/2024 2:40 PM JANITOR 04/30/2024 11:00 PM JANITOR us Stacy Hernandez BASE MANAGER LAB URINE ORDERABLES Valery l Result Performing Organization Address [facility] Co de Phone Number [facility] [address] [facility] [employer] [place] [address] * TSH (04/30/2024 2:40 PM JANITOR) Pathologist [facility] Thyroid Stimulating Hormone 2.51 0.30 - 4.20 mcIUnit/mL Blood 04/30/2024 2:40 PM JANITOR 04/30/2024 11:00 PM JANITOR Stacy Hernanedz BASE MANAGER LAB BLOOD ORDERABLES Valery l Result Performing Organization Address [facility] Co de Phone Number [facility] [address] [address] [facility] [employer] [place] [address] * T4, free (04/30/2024 2:40 PM JANITOR) Free T4 1.27 0.90 - 1.70 ng/dL Blood 04/30/2024 2:40 PM JANITOR 04/30/2024 11:00 PM JANITOR us Stacy Hernandez BASE MANAGER LAB BLOOD ORDERABLES Valery l Result [facility] [address] [facility] [place] [address] * Lipid panel (04/30/2024 2:40 PM JANITOR) Cholesterol 119 30 - 199 mg/dL Comment: [...] ratio 2 [facility] Blood 04/30/2024 2:40 PM JANITOR 04/30/2024 11:00 PM JANITOR us Stacy Hernandez BASE MANAGER LAB BLOOD ORDERABLES Valery l Result Performing Organization Address [facility]/ZIP Co de Phone Number [facility] [address] Department [place] [address] * (ABNORMAL) Comprehensive metabolic panel (04/30/2024 2:40 PM JANITOR) Sodium 137 135 - 145 mmol/L Potassium, [...] Units/L CERNER CH Blood 04/30/2024 2:40 PM JANITOR 04/30/2024 11:00 PM JANITOR Stacy Hernandez BASE MANAGER LAB BLOOD ORDERABLES Valery l Result Performing Organization Address [facility]/ZIP Co de Phone Number [facility] [address] Department [place] [address] * (ABNORMAL) POCT hemoglobin A1c (04/30/2024 1:58 PM JANITOR) [facility] Hemoglobin A1C, POC 8.0 4.0 - 5.6 % Blood 04/30/2024 1:58 PM JANITOR us Stacy Hernandez BASE MANAGER POINT OF CARE TEST ORDERA BLES Final Result * (ABNORMAL) POCT glucose (04/30/2024 1:58 PM JANITOR) [facility] Glucose Blood, POC 324 mg/dL Blood 04/30/2024 1:58 PM JANITOR us Stacy Hernandez BASE MANAGER POINT OF CARE TEST ORDERA BLES Final Result * (ABNORMAL) Comprehensive metabolic panel (04/27/2024 2:21 AM JANITOR) [facility] SCRIBED Sodium 134(A) 136 - 145 mmol/L [...] Units/L EXTERNAL LAB SCRIBED eGFR in NonAfrican Montenegrin 37 <60 - NA EXTERNAL LAB Blood 04/27/2024 2:21 AM JANITOR us Historical Provider MD LAB BLOOD ORDERABLES Edit ed Result - Final EXTERNAL LAB * Dexa Axial Skeleton Bone Density 1 or 2 Site (04/02/2024 11:04 AM JANITOR) Anatomical Region Laterality Modality Body N/A Radiographic Sheron ging Narrative 04/02/2024 2:27 PM JANITOR Patient Name: Aleyda Dobbs Date of : 1950 Date of scan: 04/02/2024 Bone mineral density was performed on a [employer] Discovery Densitometer. Based on machine cross-calibration and [...] by the International Society of Clinical Densitometry. [id number] Shawanda De La Cruz NP [facility] DXA PROCEDURES Final R esult * (ABNORMAL) Comprehensive metabolic panel (Outreach) (03/26/2024 1:16 PM JANITOR) Pathologist [facility] Glucose 173(H) 65 - 99 mg/dL [facility] Comment: For someone without known diabetes, a glucose value >125 mg/dL indicates that they may have diabetes and this should be confirmed with a follow-up test. Fasting reference interval BUN 37(H) 7 - 25 mg/dL [facility] Creatinine 1.39(H) 0.60 - 1.00 mg/dL [...] [facility] Richard-[facility] Broussard Blood 03/26/2024 1:16 PM JANITOR 03/26/2024 1:17 PM JANITOR us Ana Laura Ramires BASE MANAGER LAB BLOOD ORDERABLES Valery rivera Result [facility] [address] [place] [address] * (ABNORMAL) CBC with auto differential (03/26/2024 1:15 PM JANITOR) WBC 4.5 3.8 - 10.8 Thousand/u L [...] - 400 Thousand/u L [facility] MPV 12.2 7.5 - 12.5 fL [facility] [...] [facility] Blood 03/26/2024 1:15 PM JANITOR 03/26/2024 1:15 PM JANITOR us Ana Laura Ramires BASE MANAGER LAB BLOOD ORDERABLES Valery l Result [facility] [address] [place] [address] * (ABNORMAL) DIABETES EYE EXAM (09/04/2023 8:55 AM CDT) us Historical Provider HEALTH MAINTENANCE Final Result * Hepatitis panel, acute Blood (07/03/2023 10:42 AM CDT) Hep A IgM Nonreactive Nonreactive Hep B core IgM Nonreactive Nonreactive [facility] Hep C Ab Nonreactive Nonreactive [facility] Comment:Antibodies to HCV no t detected. Does NOT exclude the possibility of recent exposure to HCV. Current interpretive data was last revised on 21 HepBsAg Nonreactive Nonreactive [facility] Blood 07/03/2023 10:4 2 AM CDT 07/03/2023 2:00 PM CDT us Shawanda De La Cruz NP LAB MICROBIOLOGY - GENERAL ORDERABLES Final Result [facility] [address] [facility] Department [place] [address] from Last 3 Months or Most Recently Relevant to Health Maintenance [place] [address] frents [employer] OPEN ACCESS MEDICARE frents [employer] OPEN ACCESS MEDICARE frents [employer] OPEN ACCESS Advance Directives For more information, please contact: [phone] * Full Code (Latest Code Status on File) Date Activated Date Inactivated Comments 07/20/2020 2:30 PM 07/21/2020 6:17 PM * Full Code Date Activated Date Inactivated Comments 08/14/2018 8:57 PM 08/15/2018 6:35 PM Care Teams Cream Gatherer Relationship Specialty Start Date End Date Charles Armendariz DO PCP - General 05/27/16 David Vanegas MD [address] [place] [address] Consulting Physician Cardiology 07/20/18
--- OUTSIDE RECORDS SUMMARY | 2024-06-20 15:12 | XMS_ITS | Referral Summary ---
Author Organization [facility] Address [id number] [place] [address] Care Team Providers Care Geriatric Care Manager Name Role Phone Charles Armendariz DO Primary Care Provider [phone] David Vanegas MD Unavailable [phone] Encounters Date Type Department Care Team Description 05/16/2024 9:40 AM CDT Office Visit [facility] Infectious Diseases [address] [place] [phone] Ana Laura Ramires NP LTBI (latent tuberculosis infection) (Primary Dx) 05/08/[address] [facility] Medical Group Diabetes and Endocrinology [address] [place] [phone] ProviderOliver MD 05/02/2024 Results Follow-Up [facility] Medical [facility] Diabetes and Endocrinology [address] [place] [phone] Stacy Hernandez NP 04/30/2024 2:40 PM LOAN ASSOCIATE - 04/30/2024 11:59 PM LOAN ASSOCIATE Hospital Encounter [address] [address] Type 2 diabetes mellitus with hyperglycemia, with long-term current use of insulin (HCC); Hypertension associated with type 2 diabetes mellitus (HCC); Hyperlipidemia associated with type 2 diabetes mellitus (HCC); Hypothyroidism, unspecified type Discharge Disposition: Discharge to home or self care 04/30/2024 2:45 PM LOAN ASSOCIATE Lab [facility] Medical Group Outpatient Lab at [address] [phone] Type 2 diabetes mellitus with hyperglycemia, with long-term current use of insulin (HCC) (Primary Dx) 04/30/2024 Orders Only [facility] Diabetes and Endocrinology [address] [place] [phone] ProviderOliver MD 04/30/2024 2:00 PM LOAN ASSOCIATE Office Visit [facility] Diabetes and Endocrinology [address] [place], [place] [phone] Stacy Hernandez NP Type 2 diabetes mellitus with hyperglycemia, with long-term current use of insulin (HCC) (Primary Dx); Hyperlipidemia associated with type 2 diabetes mellitus (HCC); Diabetic polyneuropathy associated with type 2 diabetes mellitus (HCC); Hypertension associated with type 2 diabetes mellitus (HCC); Hypothyroidism, unspecified type 04/26/2024 Telephone [facility] Diabetes and Endocrinology [address] [place] [phone] Stacy Hernandez NP Forms/questionnaires (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) 04/09/2024 Telephone [facility] Infectious Diseases [address] [place] [address] [place] [phone] Chayo Alcazar LCSW 04/04/2024 Telephone [facility] Rheumatology [address] [place] [address] Floor [address] [place] [phone] Arnulfo Krishnamurthy 04/02/2024 11:10 AM LOAN ASSOCIATE Clinical Support [facility] Bone Health [address] [place] [address] [place] [phone] Other specified disorders of bone density and structure, left thigh (Primary Dx); Rheumatoid arthritis involving multiple sites with positive rheumatoid factor (HCC); 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; MCFP (current) use of anticoagulants 04/02/2024 11:40 AM LOAN ASSOCIATE Office Visit [facility] Rheumatology [address] [place] [address] Floor [address] [place] [phone] Shawanda De La Cruz NP Rheumatoid arthritis [...] Diarrhea High 01/27/2021 Povidone-Iodine Rash Medium 05/05/2017 Izgtmvq-Gen-Zio Reductase Inhibitors Muscle pain Medium 11/05/2020 Valsartan [...] total) by mouth every morning Activ e ks-cvctycf-fct -iron fm-FA-vitK 18 mg-400 mcg- 25 mcg [...] symptoms. Assessment & Plan (03/15/2024 10:09 AM LOAN ASSOCIATE): - Doing well on INH/B6 for LTBI, [...] 10/24/2023 Assessment & Plan (04/30/2024 2:13 PM LOAN ASSOCIATE): Chronic problem. Currently taking Atorvastatin 40mg. Last lipid panel: 03/09/23 LDL=37 TI=739. Will update labs. Does not mychart. Verified phone #/address to contact re: results. Assessment & Plan (10/24/2023 3:19 PM CDT): Chronic problem. Currently taking Atorvastatin 40mg. Last lipid panel: 03/09/23 LDL=37 KS=179. Positive TB test 09/19/2023 Assessment & Plan (01/01/2024 12:37 PM LOAN ASSOCIATE): - Unable to tolerate rifabutin as she [...] CBC and CMP in 1 month at [facility] - Ok to start biologic for rheumatoid arthritis after she has been on rifabutin for 1 month. Will forward note to rheumatology Class 2 severe obesity due t o excess calories with serious comorbidity and body mass index (BMI) of 39.0 to 39.9 in adult 03/09/2023 Assessment & Plan (03/09/2023 10:05 AM LOAN ASSOCIATE): Discussed healthy diet and importance of regular [...] 03/22/2022 Assessment & Plan (03/22/2022 8:59 AM LOAN ASSOCIATE): Chronic problem, stable. Discussed healthy diet and [...] (07/02/2020): Added automatically from request for surgery [id number] Median neuropathy, left 11/19/2019 Overview (11/19/2019): Added automatically from request for surgery [id number] Ulnar neuropathy of left upper extremity 020 Overview (11/19/2019): Added automatically from request for surgery [id number] Anxiety 05/24/2019 Asthma 05/24/2019 Brachial neuritis 05/24/2019 Major depressive disorder 05/24/2019 Gastroesophageal reflux disease without esophagi tis 05/24/2019 Gout 05/24/2019 Spleen hematoma 05/24/2019 Osteoarthritis 05/24/2019 Primary localized osteoarthrosis of shoulder reg ion 05/24/2019 Recurrent dislocation of shoulder region 020 Hypothyroidism 04/10/2019 Assessment & Plan (04/30/2024 2:14 PM LOAN ASSOCIATE): Chronic problem. Currently taking levothyroxine 100mcg. Clinically [...] 1.23 Assessment & Plan (03/09/2023 9:54 AM LOAN ASSOCIATE): Chronic problem. Currently taking levothyroxine 100mcg. Clinically [...] today. Will update labs today. Does not Norsehart. Verified phone #/address to contact re: results. Assessment & Plan (11/25/2019 10:57 AM CDT): Check TSH and adjust as indicated Assessment & Plan (09/19/2019 1:14 PM CDT): Clinically euthyroid. Will check TFTs and adjust dose if indicated. 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 Currently taking Gabapentin 300mg bid. [...] barefoot. Assessment & Plan (03/09/2023 9:47 AM LOAN ASSOCIATE): Chronic problem. Currently taking gabapentin. Aware to check feet nightly & not go barefoot. Assessment & Plan (09/08/2022 11:14 AM CDT): Chronic problem. Currently taking gabapentin. Aware to check feet nightly. Assessment & Plan (03/21/2022 8:54 AM LOAN ASSOCIATE): Chronic problem. Currently taking gabapentin. Aware to check feet nightly. Assessment & Plan (05/13/2021 10:51 AM CDT): Foot care discussed Assessment & Plan (11/05/2020 2:29 PM CDT): Foot care discussed The patient does not feel that Neurontin helps of will discontinue Assessment & Plan (04/02/2020 1:40 PM LOAN ASSOCIATE): On Neurontin Foot care discussed Assessment & Plan (10/19/2017 10:52 AM CDT): Foot care discussed On neurointin Advised on seeing foot dr. Hyperlipidemia 10/19/2017 Assessment & Plan (03/09/2023 9:48 AM LOAN ASSOCIATE): Chronic problem. Current on atorvastatin 40mg daily. Last lipid panel: 11/04/21 LDL=26, MB=182. Will update labs today. Does not mychart. Verified phone #/address to contact re: results. Assessment & Plan (09/08/2022 11:14 AM CDT): Chronic problem. Current on atorvastatin 40mg daily. 11/04/21 LDL=26. No changes. Assessment & Plan (03/21/2022 8:53 AM LOAN ASSOCIATE): Chronic problem. Current on atorvastatin 40mg daily. [...] Lipitor Assessment & Plan (04/02/2020 1:37 PM LOAN ASSOCIATE): Goal of treatment , LDL cholesterol less [...] therapy. Assessment & Plan (03/12/2019 12:24 PM LOAN ASSOCIATE): Goal of treatment , LDL cholesterol less [...] 01/17/2017 Assessment & Plan (04/30/2024 2:42 PM LOAN ASSOCIATE): Chronic problem, A1c stable but uncontrolled at [...] UTD on DM eye exam (03/06/23 at [facility] in [place]). Had appt summer 2023; letter sent to [...] UTD on DM eye exam (03/06/23 at [facility]). Discussed need to increase [...] UTD on DM eye exam (03/06/23 at [facility]). Discussed need to increase [...] infection. Assessment & Plan (03/09/2023 10:02 AM LOAN ASSOCIATE): Chronic problem, A1c worsening. A1c breanna from [...] re: results. DM eye exam 03/06/23 at [facility] [place]. Letter sent to get copy of report. [...] housework. Assessment & Plan (03/22/2022 9:20 AM LOAN ASSOCIATE): Chronic problem, not at goal. Continue: Metformin [...] consider. 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 Assessment & Plan (03/30/2017 12:29 PM LOAN ASSOCIATE): A1c 6.6 but she does have anemia with elevated RDW. Bydureon since 12/2016 may have also helped to improve A1c but will be stopping that for now. Will evaluate again at next Ov. Assessment & Plan (01/17/2017 10:11 AM LOAN ASSOCIATE): Hba1c was 8.8 today, indicating inadequate DM [...] 01/17/2017 Assessment & Plan (04/30/2024 2:14 PM LOAN ASSOCIATE): Chronic problem, well controlled on current Metoprolol XL 25mg daily, furosemide 20mg daily Will update labs today. Does not mychart. Verified phone #/address to contact re: results. Assessment & Plan (03/09/2023 9:47 AM LOAN ASSOCIATE): Chronic problem, well controlled on current Metoprolol XL 25mg daily, furosemide 20mg daily Will update labs today. Does not mychart. Verified phone #/address to contact re: results. Assessment & Plan (09/08/2022 11:14 AM CDT): Chronic problem, well controlled on current Metoprolol XL 25mg daily, furosemide 20mg daily No changes at this time. Assessment & Plan (03/22/2022 9:00 AM LOAN ASSOCIATE): Chronic problem, well controlled on current metoprolol XL 25mg daily. No changes at this time. Assessment & Plan (07/02/2020 4:04 PM CDT): Goal blood pressure is less than 140/85 Low salt diet was discussed andd recommended The importance of daily aerobic exercise was also emphasized. Continue current meds Assessment & Plan (04/02/2020 1:38 PM LOAN ASSOCIATE): Goal blood pressure is less than 140/85 [...] MA. Assessment & Plan (03/12/2019 12:24 PM LOAN ASSOCIATE): Goal blood pressure is less than 140/85 [...] medications. Assessment & Plan (03/30/2017 12:33 PM LOAN ASSOCIATE): Controlled on current medications. 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 09/09/2010 Chronic [...] atorvastatin Assessment & Plan (03/30/2017 12:33 PM LOAN ASSOCIATE): Continue statin Obesity due to excess calories 11/05/2015 03/21/2022 Assessment & Plan (03/30/2017 12:20 PM LOAN ASSOCIATE): Current exercise will be reduced with completion [...] on file Legal Sex Female 12:14 AM LOAN ASSOCIATE Gender Identity Not on file Sexual Orientation [...] on file Medical Devices Implanted Type Area Digital Production Manager Device Identifier Shelf Expiration Date Model / Serial / Lot Allosource [id number] Freeze Dried Chips Graft 15ml Bone Cancellous Cortical - [id number] Implanted:Qty: 1 on 08/14/2018 by Pradip Whalen MD at [facility] Bone Allosource 08/28/2022 [id number] / / [id number] Allosource [id number] Allogro Freeze Dried Graft 15ml Bone Demineralized Bone Matrix - [id number] Implanted:Qty: 1 on 08/14/2018 by Pradip Whalen MD at [facility] Bone Allosource 03/15/2023 [id number] / / [id number] Intraocular Lens Bilateral : Eye Orthohelix [id number] Maxtorque 4mm 37.5mm Cannulated Self Drill Foot Ankle Long Thread - [id number] Implanted:Qty: 1 on 08/14/2018 by Pradip Whalen MD at [facility] Right: Foot Orthohelix MSD-010-40- 375L / / [employer] [id number] Cristobal .062in 9in Style 1 Wire Fixation Stainless Steel - [id number] Implanted:Qty: 1 on 08/14/2018 by Pradip Whalen MD at [facility] Right: First Toe [employer] [id number] / / Orthohelix Mxl-002-2a Maxlock Extreme 2 Hole [place] Alpha Plate Bone Nonsterile - [id number] Implanted:Qty: 1 on 08/14/2018 by Pradip Whalen MD at [facility] Right: Foot Orthohelix MXL-002-2A / / Orthohelix [id number] Maxtorque 5.5mm 50mm Cannulated Self Drill Foot Ankle Long Thread - [id number] Implanted:Qty: 1 on 08/14/2018 by Pradip Whalen MD at [facility] Right: Foot Orthohelix MSD-010-55- 050L / / Orthohelix [id number] Maxtorque 5.5mm 55mm Cannulated Self Drill Foot Ankle Long Thread - [id number] Implanted:Qty: 1 on 08/14/2018 by Pradip Whalen MD at [facility] Right: Foot Orthohelix MSD-010-55- 055L / / Orthohelix [id number] Maxtorque 7mm 70mm Cannulated Self Drill Foot Ankle Petite Thread - [id number] Implanted:Qty: 1 on 08/14/2018 by Pradip Whalen MD at [facility] Right: Foot Orthohelix MSD-010-70- 070P / / Orthohelix [id number] 4mm 26mm Nonlock Foot Ankle Screw Bone Nonsterile Maxlock Extreme - [id number] Implanted:Qty: 2 on 08/14/2018 by Pradip Whalen MD at [facility] Right: Foot Orthohelix SPRING MAKER-011-402 6 / / Orthohelix [id number] Maxlock Extreme 4mm 28mm Nonlock Foot Ankle Screw Bone Nonsterile Latex Free - [id number] Implanted:Qty: 1 on 08/14/2018 by Pradip Whalen MD at [facility] Right: Foot Orthohelix SPRING MAKER-011-402 8 / / Orthohelix [id number] Maxlock Extreme 4mm 24mm Nonlock Foot Ankle Screw Bone Nonsterile - [id number] Implanted:Qty: 1 on 08/14/2018 by Pradip Whalen MD at [facility] Right: Foot Orthohelix SPRING MAKER-011-40- 24 / / Explanted Type Area Digital Production Manager Device Identifier Shelf Expiration Date Model / Serial / Lot Orthohelix Business Development Assistant-040 [place] Wire Fixation Nonsterile Latex Free - [id number] Explanted:Qty: 2 on 08/14/2018 at [facility] Right: Foot Orthohelix SPRING MAKER-040 / / Procedures Procedure Name Priority Date/Time Associated Diagnosis Comments EGFR Routine 04/30/2024 2:40 PM LOAN ASSOCIATE Type 2 diabetes mellitus with hyperglycemia, with long-term current use of insulin (HCC) Hypertension associated with type 2 diabetes mellitus (HCC) TSH Routine 04/30/2024 2:40 PM LOAN ASSOCIATE Hypothyroidism, unspecified type T4, FREE Routine 04/30/2024 2:40 PM LOAN ASSOCIATE Hypothyroidism, unspecified type LIPID PANEL Routine 04/30/2024 2:40 PM LOAN ASSOCIATE Type 2 diabetes mellitus with hyperglycemia, with long-term current use of insulin (HCC) Hyperlipidemia associated with type 2 diabetes mellitus (HCC) COMPREHENSIVE METABOLIC PANEL Routine 04/30/2024 2:40 PM LOAN ASSOCIATE Type 2 diabetes mellitus with hyperglycemia, with long-term current use of insulin (HCC) Hypertension associated with type 2 diabetes mellitus (HCC) ALBUMIN CREATININE RATIO, URINE Routine 04/30/2024 2:40 PM LOAN ASSOCIATE Type 2 diabetes mellitus with hyperglycemia, with long-term current use of insulin (HCC) POCT GLUCOSE Routine 04/30/2024 1:58 PM LOAN ASSOCIATE Type 2 diabetes mellitus with hyperglycemia, with long-term current use of insulin (HCC) POCT HEMOGLOBIN A1C Routine 04/30/2024 1 :58 PM LOAN ASSOCIATE Type 2 diabetes mellitus with hyperglycemia, with long-term current use of insulin (HCC) COMPREHENSIVE METABOLIC PANEL Routine 04/27/2024 2:21 AM LOAN ASSOCIATE DEXA AXIAL SKELETON BONE DENSITY 1 OR MORE SITES Schedule Routine, Read Routine (OP Routine) 04/02/2024 11:04 AM LOAN ASSOCIATE Rheumatoid arthritis involving multiple sites with positive rheumatoid factor (HCC) COMPREHENSIVE METABOLIC PANEL (OUTREACH) Routine 03/26/2024 1:16 PM LOAN ASSOCIATE LTBI (latent tuberculosis infection) CBC WITH AUTO DIFFERENTIAL Routine 03/26/2024 1:15 PM LOAN ASSOCIATE LTBI (latent tuberculosis infection) HM DIABETES EYE EXAM Routine 09/04/2023 8:55 AM CDT HEPATITIS PANEL, ACUTE Routine 07/03/2023 10:42 AM CDT High risk medication use from Last 3 Months or Most Recently Relevant to Health Maintenance Results * (ABNORMAL) eGFR (04/30/2024 2:40 PM LOAN ASSOCIATE) eGFR 44(L) >=60 mL/min/1. 73 m2 Comment: [...] last reviewed 2020. Blood 04/30/2024 2:40 PM LOAN ASSOCIATE 04/30/2024 11:04 PM LOAN ASSOCIATE us Stacy Hernandez ENVIRONMENTAL TECHNICIAN LAB BLOOD ORDERABLES Valery l Result Performing Organization Address [facility] de Phone Number [facility] [address] [place] [address] * (ABNORMAL) Albumin Creatinine Ratio, Urine (04/30/2024 2:40 PM LOAN ASSOCIATE) Albumin Ur 3,067.5 mg/L Comment: Interpretive Data No reference range established. Current interpretive data was last revised 2018. Creatinine Ur 81.5 mg/dL [facility] Comment: Interpretive Data No reference range established. Current interpretive data was last revised 2018. Albumin Creatinine Ratio, Ur 3,764(H) 1 - 29 mg/g [facility] Urine 04/30/2024 2:40 PM LOAN ASSOCIATE 04/30/2024 11:00 PM LOAN ASSOCIATE us Stacy Hernandez ENVIRONMENTAL TECHNICIAN LAB URINE ORDERABLES Valery l Result Performing Organization Address [facility] Co de Phone Number [facility] [address] [place] [address] * TSH (04/30/2024 2:40 PM LOAN ASSOCIATE) Thyroid Stimulating Hormone 2.51 0.30 - 4.20 mcIUnit/mL Blood 04/30/2024 2:40 PM LOAN ASSOCIATE 04/30/2024 11:00 PM LOAN ASSOCIATE us Stacy Hernandez ENVIRONMENTAL TECHNICIAN LAB BLOOD ORDERABLES Valery l Result Performing Organization Address [facility] Co de Phone Number MALOU FRANK [address] [place] [address] * T4, free (04/30/2024 2:40 PM LOAN ASSOCIATE) Free T4 1.27 0.90 - 1.70 ng/dL Blood 04/30/2024 2:40 PM LOAN ASSOCIATE 04/30/2024 11:00 PM LOAN ASSOCIATE us Stacy Hernandez ENVIRONMENTAL TECHNICIAN LAB BLOOD ORDERABLES Valery l Result Performing Organization Address [facility] Co de Phone Number MALOU FRANK [address] [place] [address] * Lipid panel (04/30/2024 2:40 PM LOAN ASSOCIATE) Cholesterol 119 30 - 199 mg/dL Comment: [...] 2 [facility] Blood 04/30/2024 2:40 PM LOAN ASSOCIATE 04/30/2024 11:00 PM LOAN ASSOCIATE us Stacy Hernandez ENVIRONMENTAL TECHNICIAN LAB BLOOD ORDERABLES Valery rivera [place] [address] Department [place] [address] * (ABNORMAL) Comprehensive metabolic panel (04/30/2024 2:40 PM LOAN ASSOCIATE) Pathologist [facility] Sodium 137 135 - 145 mmol/L Potassium, [...] Units/L CERNER CH Blood 04/30/2024 2:40 PM LOAN ASSOCIATE 04/30/2024 11:00 PM LOAN ASSOCIATE us Stacy Hernandez ENVIRONMENTAL TECHNICIAN LAB BLOOD ORDERABLES Valery l Result MALOU FRANK [address] Department [place] [address] * (ABNORMAL) POCT hemoglobin A1c (04/30/2024 1:58 PM LOAN ASSOCIATE) [facility] Hemoglobin A1C, POC 8.0 4.0 - 5.6 % Blood 04/30/2024 1:58 PM LOAN ASSOCIATE us Stacybruno Hernandez NP POINT OF CARE TEST ORDERA BLES Final Result * (ABNORMAL) POCT glucose (04/30/2024 1:58 PM LOAN ASSOCIATE) [facility] Glucose Blood, POC 324 mg/dL Blood 04/30/2024 1:58 PM LOAN ASSOCIATE us Stacy Hernandez NP POINT OF CARE TEST ORDERA BLES Final Result * (ABNORMAL) Comprehensive metabolic panel (04/27/2024 2:21 AM LOAN ASSOCIATE) [facility] SCRIBED Sodium 134(A) 136 - 145 mmol/L [...] Units/L EXTERNAL LAB SCRIBED eGFR in NonAfrican [place] 37 <60 - NA EXTERNAL LAB Blood 04/27/2024 2:21 AM LOAN ASSOCIATE us Historical Provider LAB BLOOD ORDERABLES Edit ed Result - Final EXTERNAL LAB * Dexa Axial Skeleton Bone Density 1 or 2 Site (04/02/2024 11:04 AM LOAN ASSOCIATE) Anatomical Region Laterality Modality Body N/A Radiographic Sheron ging Narrative 04/02/2024 2:27 PM LOAN ASSOCIATE Patient Name: Aleyda Dobbs Date of : [...] by the International Society of Clinical Densitometry. [id number] Shawanda De La Cruz NP [facility] DXA PROCEDURES Final R esult * (ABNORMAL) Comprehensive metabolic panel (Outreach) (03/26/2024 1:16 PM LOAN ASSOCIATE) [facility] Glucose 173(H) 65 - 99 mg/dL [facility] Broussard Comment: For someone without known diabetes, a glucose value >125 mg/dL indicates that they may have diabetes and this should be confirmed with a follow-up test. Fasting reference interval BUN 37(H) 7 - 25 mg/dL [facility] Broussard Creatinine 1.39(H) 0.60 - 1.00 mg/dL [facility] Broussard eGFR 41(L) > OR = 60 mL/min/1.7 3m2 Hadley Broussard BUN/creat ratio 27(H) 6 - 22 (calc) [facility] RichardShala Broussard Sodium 138 135 - 146 mmol/L [facility] RichardShala Broussard Potassium 4.1 3.4 - 4.8 mmol/L [facility] Broussard Chloride 107 98 - 110 mmol/L [facility] [employer]Shala Broussard CO2 25 20 - 32 mmol/L [facility]Shala Broussard Calcium 9.0 8.6 - 10.4 mg/dL [facility] Broussard Protein, Total 7.1 6.4 - 8.4 g/dL [facility] [employer]Sh[facility] Broussard Albumin 3.4(L) 3.6 - 5.1 g/dL [facility] Broussard Globulin 3.7 2.2 - 4.0 g/dL (calc) [facility] Broussard Alb/glob ratio 0.9 0.9 - 2.3 (calc) [facility] Broussard Bilirubin, total 0.4 0.2 - 1.2 mg/dL [facility]Sh[facility] Broussard Alk phos 108 37 - 153 U/L [facility]Sh[facility] Broussard AST 41(H) 10 - 35 U/L [facility]Shala Broussard ALT (SGPT) 27 6 - 29 U/L [facility] Broussard Blood 03/26/2024 1:16 PM LOAN ASSOCIATE 03/26/2024 1:17 PM LOAN ASSOCIATE us Ana Laura Ramires NP LAB BLOOD ORDERABLES Valery rivera Result [facility] [address] [place] [address] * (ABNORMAL) CBC with auto differential (03/26/2024 1:15 PM LOAN ASSOCIATE) WBC 4.5 3.8 - 10.8 Thousand/u L [...] [facility] Blood 03/26/2024 1:15 PM LOAN ASSOCIATE 03/26/2024 1:15 PM LOAN ASSOCIATE us Ana Laura Ramires NP LAB BLOOD ORDERABLES Valery rivera Result [facility] [address] [place] [address] * (ABNORMAL) DIABETES EYE EXAM (09/04/2023 8:55 AM CDT) Historical Provider HEALTH MAINTENANCE Final Result * Hepatitis panel, acute Blood (07/03/2023 10:42 AM CDT) Hep A IgM Nonreactive Nonreactive Hep B core IgM Nonreactive [facility]reactive [facility] Hep C Ab Nonreactive Nonreactive [facility] Comment:Antibodies to HCV no t detected. Does NOT exclude the possibility of recent exposure to HCV. Current interpretive data was last revised on 21 HepBsAg Nonreactive Nonreactive [facility] Blood 07/03/2023 10:4 2 AM CDT 07/03/2023 2:00 PM CDT Shawanda De La Cruz NP LAB MICROBIOLOGY - GENERAL ORDERABLES Final Result [facility] Department [place] [address] from Last 3 Months or Most Recently Relevant to Health Maintenance Insurance MEDICARE [place] [place] [address] [employer] [facility] OPEN ACCESS MEDICARE [employer] [facility] OPEN ACCESS MEDICARE [employer] [facility] OPEN ACCESS Advance Directives For more information, please contact: [phone] * Full Code (Latest Code Status on File) Date Activated Date Inactivated Comments 07/20/2020 2:30 PM 07/21/2020 6:17 PM * Full Code Date Activated Date Inactivated Comments 08/14/2018 8:57 PM 08/15/2018 6:35 PM Care Teams Geriatric Care Manager Relationship Specialty Start Date End Date Charles Armendariz DO PCP - General 05/27/16 David Vanegas MD [address] [place] [address] Consulting Physician Cardiology 07/20/18
--- OUTSIDE RECORDS SUMMARY | 2024-06-20 15:12 | XMS_ITS | Encounter Summary ---
Author Organization [facility] Address [address] [place] [address] Phone Care Team Providers Care Dough Raiser Name Role Phone Bishop Starr MD Unavailable Charles Armendariz DO Primary Care Provider Reason for Visit * Reason Comments Medication Refill Encounter Details Date Type Department Care Team (Late st Contact Info) Description 06/28/2019 Refill [facility] [address] [place] [id number] Bishop Starr MD [address] [place] [address] Medication Refill Social History Tobacco [...] on filedocumented in this encounter Care Teams Dough Raiser Relationship Specialty Start Date End Date Charles Armendariz DO [facility] [place] [address] PCP - General Internal Medicine 11/05/15 Bishop Starr MD Consulting Physician Pulmonary Disease 10/14/15 documented as of this encounter
--- OUTSIDE RECORDS SUMMARY | 2024-06-20 15:12 | XMS_ITS | CONTINUITY OF CARE DOCUMENT ---
Author Name yareli downs Address Unknown Organization [facility] Address [address] [place] [address] Phone [phone] Care Team Providers Care Sewing Machine Tester Name Role Phone David Vanegas MD Unavailable [phone] GILBERTO IRIZARRY DO Unavailable GILBERTO IRIZARRY DO Unavailable PROBLEMS Condition Status Date Provider Notes DIABETES MELLITUS;since 1997 active David Vanegas MD intol to sglt2 and arb and ozemopci, cannot affored [place] HTN-04/05 [id number] active - David turner MD OBESITY; active [...] In-person encounter Office Visit David Vanegas MD [place] [facility] Diastolic CHFPFOElevated LFT's 4 - 4 In-person encounter Office Visit David Vanegas MD [place] CAD;neg carotdi dupelxCOPD;has lung mdTuberculosis 9 - 9 In-person encounter Office Visit David Vanegas MD [place] [facility] Diastolic CHFAnemia of chronic diseaseMitral valve disorderShortness of breathPFO 1 - 1 In-person encounter Office Visit David Vanegas MD [place] 5 - 5 In-person encounter Office Visit David Vanegas MD [facility] DIABETES MELLITUS;since 1997MicroalbuminuriaPVD; 3 - 3 In-person encounter Office Visit David Vanegas MD [place] DIABETES MELLITUS;since 1997CAD;neg carotdi dupelxAnemia of chronic disease 1 - 1 In-person encounter Office Visit David Vanegas MD [place] DIABETES MELLITUS;since 1997Arrhythmia;NML TSHRenal disease, chronic, mild 3 - 3 In-person encounter Office Visit David Vanegas MD [place] [facility] 1 - 2 In-person encounter Office Visit David Vanegas MD [facility] Hypercholesterolemia;with high crp and low lpaExposure to SARS-associated coronavirus;had vaccine and neg swab 3 - 3 In-person encounter Office Visit David Vanegas MD [place] 1 - 1 In-person encounter Office Visit David Vanegas MD [place] Hypothyroidism;ON RX PER PRIMARYCOPD;has lung mdAnemia of chronic diseaseMicroalbuminuriaCOPDchronic thromboisi left lsv and gsvMitral valve disorder 6 - 6 In-person encounter Office Visit David Vanegas MD [place] HTN ESSENTIAL;neg duplex and angioCAD;neg carotdi dupelxPVD;NEG HILDA 2009CAROTID ARTERY DISEASE;NEG DUPLEXCough due to VIET inhibitorshx of CARPAL TUNNEL SYNDROME;had bilat srugeryCONGENITAL HEART DISEASE;Tobacco use, quitAngina pectorisScreeningNeuropathic painPVD;Ulcer, chronic, other part of foot 5 - 5 In-person encounter Office Visit David Vanegas MD [place] 7 - 7 In-person encounter Office Visit David Vanegas MD [place] CAD;neg carotdi dupelx 7 - 7 In-person encounter Office Visit David Vanegas MD [place] LFT, ABNORMAL;PRAVA STOPPED PRIMARY, fu per primayTobacco use, quit 2 - 2 In-person encounter Office Visit David Vanegas MD [place] 6 - 6 In-person encounter Office Visit David Vanegas MD [place] DIABETES MELLITUS;since 1998Tricuspid regurgitation, mildAnxiety 2 - 2 In-person encounter Office Visit David Vanegas MD [facility] SLEEP APNEA;Anemia of chronic disease 1 - 1 In-person encounter Office Visit David Vanegas MD [place] HTN ESSENTIAL;neg duplex and angioCAD;neg carotdi dupelxDiastolic CHFSLEEP APNEA;Granulomatous lung disease 8 - 8 In-person encounter Office Visit David Vanegas MD [place] 2 - 2 In-person encounter Office Visit David Vanegas MD [place] 6 - 6 In-person encounter Office Visit David Vanegas MD [place] OBESITY;HTN ESSENTIAL;neg duplex and angioCAD;neg carotdi dupelxHypercholesterolemia;with high crp and low lpaISCHEMIA; CXR 11, NML ANGIO 12Anemia of chronic diseaseCONGENITAL HEART DISEASE;MicroalbuminuriaVitamin D deficiency 8 - 8 In-person encounter Office Visit David Vanegas MD [facility] 1 - 1 In-person encounter Office Visit David Vanegas MD [place] OBESITY;HTN ESSENTIAL;neg duplex and angioCAD;neg carotdi dupelxHypercholesterolemia;with high crp and low lpaDiastolic CHFCOPD;has lung md 5 - 5 In-person encounter Office Visit David Vanegas MD [place] 4 - 4 In-person encounter Office Visit David Vanegas MD [place] 2 - 2 In-person encounter Office Visit David Vanegas MD [facility] 1 - 1 In-person encounter Office Visit David Vanegas MD [place] 8 - 2013/08/2 8 In-person encounter Office Visit David Vanegas MD [place] 5 - 5 In-person encounter Office Visit David Vanegas MD [place] HTN ESSENTIAL;neg duplex and angioCAD;neg carotdi dupelxHypercholesterolemia;with high crp and low lpaCAD;NEG CATH 2004, NEG NUC 2006 AND 11LFT, ABNORMAL;PRAVA STOPPED PRIMARY, fu per primayhx of CARPAL TUNNEL SYNDROME;had bilat srugeryCONGENITAL HEART DISEASE; 0 - 0 In-person encounter Office Visit David Vanegas MD [facility] Diastolic CHFISCHEMIA; CXR 11, NML ANGIO 12Anemia of chronic diseasehx of CARPAL TUNNEL SYNDROME;had bilat srugery 9 - 9 In-person encounter Office Visit David Vanegas MD [place] CAD;neg carotdi dupelxHypothyroidism;ON RX PER PRIMARYDiastolic CHFISCHEMIA; CXR 11, NML ANGIO 12LFT, ABNORMAL;PRAVA STOPPED PRIMARY, fu per primay 5 - 5 In-person encounter Office Visit David Vanegas MD [place] [facility] LFT, ABNORMAL;PRAVA STOPPED PRIMARY, fu per primay 4 - 4 In-person encounter Office Visit David Vanegas MD [place] DIABETES MELLITUS;since 1997OBESITY;SOB; NEG CXR 2008CHEST PAIN-10/31 CATH NEG LV 70,?MICROVASCULAR DZCAD;neg carotdi dupelxPALPITATIONS:NEG, ECHO, CXR, HOLTER 2008FATIGUE;DOES NOT SEEM TO BE CARDIAC, TO SEE PRIMARYISCHEMIA; CXR 11, NML ANGIO 12TOBACCO ABUSE;NEG AMI 11COPD;has lung md 0 - 0 In-person encounter Office Visit David Vanegas MD [place] [facility] HTN ESSENTIAL;neg duplex and angioHypothyroidism;ON RX PER PRIMARYDiastolic CHFCough due to VIET inhibitorsCAD;NEG CATH 2003, NEG NUC 2006 AND 11SLEEP APNEA; 1 - 2 In-person encounter Office Visit David Vanegas MD [place] HTN-04/05 [id number];neg carotdi dupelxPVD;NEG HILDA 2009EDEMA;NEG VD 2008 0 - 0 In-person encounter Office Visit David Vanegas MD [place] [facility] DIABETES MELLITUS;since 1997SOB; NEG CXR 2007CHEST PAIN-10/31 CATH NEG LV 70,?MICROVASCULAR DZCAD;neg carotdi dupelxPALPITATIONS:NEG, ECHO, CXR, HOLTER 2007 1 - 1 In-person encounter Office Visit David Vanegas MD [place] CHEST PAIN-10/31 CATH NEG LV 70,?MICROVASCULAR DZCAD;neg carotdi dupelxHypercholesterolemia;with high crp and low lpaHypothyroidism;ON RX PER PRIMARYPALPITATIONS:NEG, ECHO, CXR, HOLTER 2007 VITAL SIGNS Date Observation Value Provider Body Mass Index (Ratio) 38.70 kg/m2 Aleksandar Vanegas MD blood pressure, diastolic 65 mm[Hg] Ghulam [facility] blood pressure, systolic 119 mm[Hg] Kristyn dunne [facility] blood pressure, cuff size regular Ghulam johnny [facility] oxygen saturation, oximetry 97 % [facility] pulse rate 94 /min [facility] weight E&M 222 [lb_av] [facility] height E&M 63.5 [in_i] [facility] Body Mass Index (Ratio) 38.36 kg/m2 Aleksandar Vanegas MD oxygen saturation, oximetry 96 % Randi Blanco pulse rate 97 /min Randijohnny Blanco blood pressure, cuff size large Braden Blanco blood pressure, diastolic 62 mm[Hg] Braden Blanco blood pressure, systolic 114 mm[Hg] Tab itha [facility] weight E&M 220 [lb_av] aRndi Blanco respiratory rate E&M 12 /min Randi Blanco height E&M 63.5 [in_i] Randi Blanco Body Mass Index (Ratio) 39.23 kg/m2 Aleksandar Vanegas MD blood pressure, cuff size regular Ja et blood pressure, diastolic 65 mm[Hg] Ja rret blood pressure, systolic 131 mm[Hg] [facility] pulse rate 93 /min [facility] oxygen saturation, oximetry 93 % Angel respiratory rate E&M 16 /min Angel weight E&M 225 [lb_av] [facility] height E&M 63.5 [in_i] [facility] Body Mass Index (Ratio) 40.27 kg/m2 Aleksandar Vanegas MD blood pressure, diastolic 72 mm[Hg] Denita nkLog blood pressure, systolic 142 mm[Hg] Lexis og blood pressure, cuff size large [facility], [facility] 72 mm[Hg] rret blood pressure, systolic 142 mm[Hg] [facility] ret pulse rate 86 /min [facility] respiratory rate E&M 12 /min [facility] oxygen saturation, oximetry 94 % [facility] weight E&M 231 [lb_av] [facility] height E&M 63.5 [in_i] [facility] Body Mass Index (Ratio) 40.97 kg/m2 Aleksandar Vanegas MD blood pressure, cuff size regular Ja rret blood pressure, diastolic 74 mm[Hg] Gregory daenet blood pressure, systolic 153 mm[Hg] Ashley lopez [...] blood pressure, diastolic 75 mm[Hg] Ca therine [place] blood pressure, systolic 173 mm[Hg] Cat herine [place] oxygen saturation, oximetry 95 % Ting [place] respiratory rate E&M 18 /min Catheri ne [place] pulse rate 80 /min Ting Fran weight E&M 216 [lb_av] Ting [place] blood pressure, cuff size regular Ca therine Fran height E&M 63.5 [in_i] Ting [place] Body Mass Index (Ratio) 37.14 kg/m2 Aleksandar Vanegas MD weight E&M 213 [lb_av] David Soriano Body Mass Index (Ratio) 39.58 kg/m2 Aleksandar Vanegas MD blood pressure, cuff size large Ke rri [facility] blood pressure, diastolic 60 mm[Hg] Ke rri [facility] blood pressure, systolic 102 mm[Hg] Jae Saunders oxygen saturation, oximetry 94 % Marlene Castorenacoven[facility] health [facility] respiratory rate E&M 18 /min Marlene vossenejorge lcoven[facility] health [facility] pulse rate 99 /min Marlene Ervin [facility] weight E&M 227 [lb_av] Marlene Ervin [facility] height E&M 63.5 [in_i] Marlene Mueller [facility] Body Mass Index (Ratio) 39.92 kg/m2 Aleksandar Vanegas MD blood pressure, cuff size regular Wilfred ismaren Cory pulse rate 80 /min Ruba Cory blood pressure, diastolic 72 mm[Hg] Kr isty Cory blood pressure, systolic 130 mm[Hg] Catracho Ray oxygen saturation, oximetry 97 % Ruba [place] respiratory rate E&M 17 /min Ruba Cory weight E&M 229 [lb_av] Ruba [place] height E&M 63.5 [in_i] Ruba [place] Body Mass Index (Ratio) 39.92 kg/m2 Aleksandar [...] [in_i] Isael mansfield pulse rate #2 62 [facility] blood pressure, fisher tolic, second observation 75 mm[Hg] [facility] blood pressure, syst olic, second observation 132 mm[Hg] [facility] oxygen saturation, oximetry 98 % [facility] pulse rate 62 /min [facility], diastolic 75 mm[Hg] Vi ctoria Ciscothiago blood pressure, systolic 132 mm[Hg] Bonifacio Peckthiago pulse rate #2 81 [facility] blood pressure, fisher tolic, second observation 75 mm[Hg] [facility] blood pressure, syst olic, second observation 156 mm[Hg] [facility] oxygen saturation, oximetry 98 % [facility] pulse rate 81 /min [facility] blood pressure, diastolic 75 mm[Hg] [facility] Ted blood pressure, systolic 156 mm[Hg] Bonifacio [facility] pulse rate #2 84 [facility] blood pressure, fisher tolic, second observation 75 mm[Hg] [facility] blood pressure, syst olic, second observation 136 mm[Hg] [facility] oxygen saturation, oximetry 98 % [facility] pulse rate 84 /min [facility] blood pressure, diastolic 75 mm[Hg] [facility] blood pressure, systolic 136 mm[Hg] [facility] pulse rate #2 82 [facility] blood pressure, fisher tolic, second observation 79 mm[Hg] [facility] blood pressure, syst olic, second observation 119 mm[Hg] [facility] oxygen saturation, oximetry 98 % [facility] pulse rate 82 /min [facility] blood pressure, diastolic 79 mm[Hg] Vi [facility] blood pressure, systolic 119 mm[Hg] Bonifacio [facility]enia [facility] Body [facility] Index (Ratio) 40.38 kg/m2 [...] [in_i] Isael mansfield pulse rate #2 79 [facility] blood pressure, fisher tolic, second observation 84 mm[Hg] [facility], syst olic, second observation 136 mm[Hg] [facility] oxygen saturation, oximetry 98 % [facility] pulse rate 79 /min [place] blood pressure, diastolic 84 mm[Hg] [facility] Tebid blood pressure, systolic 136 mm[Hg] [facility] #2 78 [place] blood pressure, fisher tolic, second observation 80 mm[Hg] [facility] blood pressure, syst olic, second observation 135 mm[Hg] [facility] oxygen saturation, oximetry 98 % [facility] pulse rate 78 /min [facility] blood pressure, diastolic 80 mm[Hg] [facility] Tebid blood pressure, systolic 135 mm[Hg] Bonifacio [facility] Tebid pulse rate #2 84 [place] blood pressure, fisher tolic, second observation 87 mm[Hg] [facility] blood pressure, syst olic, second observation 147 mm[Hg] [facility] oxygen saturation, oximetry 98 % [facility] pulse rate 84 /min [place] d blood pressure, diastolic 87 mm[Hg] [facility] Tebid blood pressure, systolic 147 mm[Hg] Bonifacio yesenia Tebid pulse rate #2 60 [facility] blood pressure, fisher tolic, second observation 82 mm[Hg] [facility] blood pressure, syst olic, second observation 133 mm[Hg] [facility] oxygen saturation, oximetry 98 % [place] Tebid pulse rate 60 /min Chayo Tebid blood pressure, diastolic 82 mm[Hg] Vi ctoria Tebid blood pressure, systolic 133 mm[Hg] Bonifacio yesenia Tebid pulse rate #2 63 [place] bid blood pressure, fisher tolic, second observation 77 mm[Hg] Chayo Tebid blood pressure, syst olic, second observation 125 mm[Hg] Chayo Tebid oxygen saturation, oximetry 98 % [facility] pulse rate 63 /min [place] Tebid blood pressure, diastolic 77 mm[Hg] Vi dcoria Tebid blood pressure, systolic 125 mm[Hg] [facility] #2 77 [facility] blood pressure, fisher tolic, second observation 74 mm[Hg] [facility] blood pressure, syst olic, second observation 142 mm[Hg] [facility] oxygen saturation, oximetry 98 % [facility] pulse rate 77 /min [facility] blood pressure, diastolic 74 mm[Hg] [facility] Tebid blood pressure, systolic 142 mm[Hg] [facility] pulse rate #2 83 [facility] blood pressure, fisher tolic, second observation 76 mm[Hg] Chayo Tebid blood pressure, syst olic, second observation 128 mm[Hg] [place] Tebid oxygen saturation, oximetry 98 % [facility] pulse rate 83 /min [place] Tebid blood pressure, diastolic 76 mm[Hg] Vi dcoria Tebid blood pressure, systolic 128 mm[Hg] Bonifacio yesenia Tebid pulse rate #2 74 [facility] blood pressure, fisher tolic, second observation 70 mm[Hg] [facility] blood pressure, syst olic, second observation 123 mm[Hg] Chayo d oxygen saturation, oximetry 98 % Chayo d pulse rate 74 /min Chayo d blood pressure, diastolic 70 mm[Hg] Vi ctoria Tebid blood pressure, systolic 123 mm[Hg] Bonifacio yesenia Tebid pulse rate #2 95 [facility] blood pressure, fisher tolic, second observation 82 mm[Hg] Chayo d blood pressure, syst olic, second observation 137 mm[Hg] [facility] oxygen saturation, oximetry 98 % Chayo pulse rate 95 /min Chayo d blood pressure, diastolic 82 mm[Hg] Vi ctoria Tebid blood pressure, systolic 137 mm[Hg] Bonifacio yesenia Tebid pulse rate #2 81 [place] blood pressure, fisher tolic, second observation 76 mm[Hg] [facility] blood pressure, syst olic, second observation 132 mm[Hg] [facility] oxygen saturation, oximetry 98 % Chayo pulse rate 81 /min Chayo d blood pressure, diastolic 76 mm[Hg] [facility] Tebid blood pressure, systolic 132 mm[Hg] Bonifacio yesenia Tebid pulse rate #2 74 [place] d blood pressure, fisher tolic, second observation 82 mm[Hg] [facility] blood pressure, syst olic, second observation 128 mm[Hg] [facility] oxygen saturation, oximetry 98 % Chayo pulse rate 74 /min [place] d blood pressure, diastolic 82 mm[Hg] Vi [...] [in_i] Uzma Ileana pulse rate #2 79 [place] Tebid blood pressure, fisher tolic, second observation 72 mm[Hg] Chayo Tebid blood pressure, syst olic, second observation 130 mm[Hg] Chayo Tebid oxygen saturation, oximetry 98 % [facility] pulse rate 79 /min [facility] blood pressure, diastolic 72 mm[Hg] Vi ctoria Tebid blood pressure, systolic 130 mm[Hg] Bonifacio yesenia Tebid pulse rate #2 81 [place] Tebid blood pressure, fisher tolic, second observation 73 mm[Hg] Chayo Tebid blood pressure, syst olic, second observation 127 mm[Hg] Chayo Tebid oxygen saturation, oximetry 98 % Chayo Tebid pulse rate 81 /min [place] Tebid blood pressure, diastolic 73 mm[Hg] Vi ctoria Tebid blood pressure, systolic 127 mm[Hg] Bonifacio yesenia Tebid pulse rate #2 89 [place] Tebid blood pressure, fisher tolic, second observation 74 mm[Hg] Chayo Tebid blood pressure, syst olic, second observation 132 mm[Hg] Chayo Tebid oxygen saturation, oximetry 98 % Chayo Tebid pulse rate 89 /min [place] Tebid blood pressure, diastolic 74 mm[Hg] Vi ctoria Tebid blood pressure, systolic 132 mm[Hg] Bonifacio yesenia Tebid pulse rate #2 87 [place] Tebid blood pressure, fisher tolic, second observation 79 mm[Hg] Chayo Tebid blood pressure, syst olic, second observation 162 mm[Hg] Chayo Tebid oxygen saturation, oximetry 98 % [facility] pulse rate 87 /min [place] Tebid blood pressure, diastolic 79 mm[Hg] Vi ctoria Tebid blood pressure, systolic 162 mm[Hg] Bonifacio yesenia Tebid pulse rate #2 88 [place] Tebid blood pressure, fisher tolic, second observation 88 mm[Hg] [place] Tebid blood pressure, syst olic, second observation 166 mm[Hg] [facility] oxygen saturation, oximetry 98 % [facility] pulse rate 88 /min [place] Tebid blood pressure, diastolic 88 mm[Hg] Vi ctoria Tebid blood pressure, systolic 166 mm[Hg] Bonifacio yesenia Tebid pulse rate #2 77 [place] Tebid blood pressure, fisher tolic, second observation 81 mm[Hg] [place] Tebid blood pressure, syst olic, second observation 144 mm[Hg] [place] Tebid oxygen saturation, oximetry 98 % [place] Tebid pulse rate 77 /min [place] Tebid blood pressure, diastolic 81 mm[Hg] Vi ctoria Tebid blood pressure, systolic 144 mm[Hg] Bonifacio yesenia Tebid pulse rate #2 83 [place] Tebid blood pressure, fisher tolic, second observation 77 mm[Hg] [place] Tebid blood pressure, syst olic, second observation 152 mm[Hg] [facility] oxygen saturation, oximetry 98 % [facility] pulse rate 83 /min [place] Tebid blood pressure, diastolic 77 mm[Hg] Vi ctoria Tebid blood pressure, systolic 152 mm[Hg] Bonifacio yesenia Tebid pulse rate #2 76 [place] bid blood pressure, fisher tolic, second observation 85 mm[Hg] [place] Tebid blood pressure, syst olic, second observation 148 mm[Hg] Chayo Tebid oxygen saturation, oximetry 98 % [place] bid pulse rate 76 /min [place] Tebid blood pressure, diastolic 85 mm[Hg] Vi ctoria Tebid blood pressure, systolic 148 mm[Hg] Bonifacio yesenia Tebid pulse rate #2 69 [place] d blood pressure, fisher tolic, second observation 81 mm[Hg] [facility] blood pressure, syst olic, second observation 154 mm[Hg] [facility] oxygen saturation, oximetry 98 % [place] pulse rate 69 /min [place] Tebid blood pressure, diastolic 81 mm[Hg] [facility] Tebid blood pressure, systolic 154 mm[Hg] Bonifacio yesenia Tebid pulse rate #2 62 [facility] blood pressure, fisher tolic, second observation 89 mm[Hg] [facility] blood pressure, syst olic, second observation 143 mm[Hg] [facility] oxygen saturation, oximetry 98 % [facility] pulse rate 62 /min [place] Tebid blood pressure, diastolic 89 mm[Hg] Vi ctoria Tebid blood pressure, systolic 143 mm[Hg] Bonifacio yesenia Tebid pulse rate #2 65 [facility] blood pressure, fisher tolic, second observation 88 mm[Hg] [facility] blood pressure, syst olic, second observation 132 mm[Hg] [facility] oxygen saturation, oximetry 98 % [facility] pulse rate 65 /min Chayo Tebid blood pressure, diastolic 88 mm[Hg] Vi dcoria Tebid blood pressure, systolic 132 mm[Hg] Bonifacio yesenia Tebid pulse rate #2 65 [place] bid blood pressure, fisher tolic, second observation 71 mm[Hg] Chayo Tebid blood pressure, syst olic, second observation 127 mm[Hg] Chayo Tebid oxygen saturation, oximetry 98 % [facility] pulse rate 65 /min [place] Tebid blood pressure, diastolic 71 mm[Hg] [facility] Tebid blood pressure, systolic 127 mm[Hg] [facility] #2 68 [facility] blood pressure, fisher tolic, second observation 69 mm[Hg] [facility] [facility], syst olic, second observation 132 mm[Hg] [facility] oxygen saturation, oximetry 98 % [facility] pulse rate 68 /min [facility] blood pressure, diastolic 69 mm[Hg] [facility] Tebid blood pressure, systolic 132 mm[Hg] [facility]2 72 [facility] blood pressure, fisher tolic, second observation 79 mm[Hg] [place] Tebid blood pressure, syst olic, second observation 134 mm[Hg] [place] Tebid oxygen saturation, oximetry 98 % [facility] pulse rate 72 /min [facility] blood [facility], diastolic 79 mm[Hg] Vi dcoria Tebid blood pressure, systolic 134 mm[Hg] Bonifacio yesenia Tebid pulse rate #2 80 [facility] blood pressure, fisher tolic, second observation 68 mm[Hg] [facility] blood pressure, syst olic, second observation 129 mm[Hg] [facility] oxygen saturation, oximetry 98 % [facility] pulse rate 80 /min [place] blood pressure, diastolic 68 mm[Hg] Vi ctoria Tebid blood pressure, systolic 129 mm[Hg] Bonifacio brownia Tebid pulse rate #2 88 [facility] blood pressure, fisher tolic, second observation 86 mm[Hg] [place] blood pressure, syst olic, second observation 138 mm[Hg] [facility] oxygen saturation, oximetry 98 % [place] pulse rate 88 /min [place] blood pressure, diastolic 86 mm[Hg] [facility] Ted blood pressure, systolic 138 mm[Hg] Bonifacio brownia Tebid pulse rate #2 88 [facility] blood pressure, fisher tolic, second observation 77 mm[Hg] [facility] blood pressure, syst olic, second observation 156 mm[Hg] [facility] oxygen saturation, oximetry 98 % [facility] pulse rate 88 /min [place] blood pressure, diastolic 77 mm[Hg] [facility] Ted blood pressure, systolic 156 mm[Hg] Bonifacio brownia Tebid pulse rate #2 86 [facility] blood pressure, fisher tolic, second observation 74 mm[Hg] [facility] blood pressure, syst olic, second observation 137 mm[Hg] [facility] oxygen saturation, oximetry 98 % [facility] pulse rate 86 /min [facility] blood pressure, diastolic 74 mm[Hg] Vi ctoria Tebid blood pressure, systolic 137 mm[Hg] Bonifacio brownia Tebid pulse rate #2 82 [facility] blood pressure, fisher tolic, second observation 67 mm[Hg] [facility] blood pressure, syst olic, second observation 125 mm[Hg] [facility] Body Mass Index (Ratio) 40.31 kg/m2 Darrel Underwood [employer] blood pressure, cuff size large Sh campbell Lemosdall LOADER HELPER blood pressure, diastolic 62 mm[Hg] Sh campbell Lemosdall LOADER HELPER blood pressure, systolic 130 mm[Hg] She jaye Lemosdall LOADER HELPER weight E&M 231.2 [lb_av] Cynthia Underwood [employer]ADER HELPER oxygen saturation, oximetry 98 % [facility] pulse rate 82 /min [facility] blood pressure, diastolic 67 mm[Hg] Vi misaeloria blood pressure, systolic 125 mm[Hg] Bonifacio yesenia [facility] blood pressure, diastolic 69 mm[Hg] Nm deo Ortiz blood pressure, systolic 136 mm[Hg] Lizbeth brown Ortiz pulse rate 88 /min [place] [facility] oxygen saturation, oximetry 96 % [place] Ortiz respiratory rate E&M 16 /min [place] Ortiz Body Mass Index (Ratio) 40.27 kg/m2 Carline ren [facility] weight E&M 231 [lb_av] [place] Ortiz blood pressure, diastolic 60 mm[Hg] nola Demecs RN blood pressure, systolic 150 mm[Hg] Phong sta Demecs RN pulse rate 83 /min [place] Demecs R N oxygen saturation, oximetry 98 % [place] Demecs RN respiratory rate E&M 20 /min [place] Demecs RN Body Mass Index (Ratio) 39.40 kg/m2 Phongs ta Demecs RN weight E&M 226 [lb_av] Jaja Demecs R N blood pressure, diastolic 62 mm[Hg] nola Demecs RN blood pressure, systolic 126 mm[Hg] Phong logan Demecs RN pulse rate 89 /min [place] Demecs R N oxygen saturation, oximetry 94 % [place] Demecs RN respiratory rate E&M 16 /min [place] Demecs RN Body Mass Index (Ratio) 39.47 kg/m2 Jennifer still [facility] weight E&M 226.4 [lb_av] [place] Demecs RN blood pressure, diastolic 70 mm[Hg] Kr isty [place] blood pressure, systolic 124 mm[Hg] Wilfredi stkitty [place] pulse rate 97 /min Ruba Cory oxygen saturation, oximetry 97 % Ruba [place] respiratory rate E&M 18 /min Ruba Cory Body Mass Index (Ratio) 39.65 kg/m2 Luis A ty [place] weight E&M 227.4 [lb_av] Ruba Cory blood [...] pressure, diastolic 60 mm[Hg] Sh erry Kj [employer]ER HEL[employer] blood pressure, systolic 138 mm[Hg] She jaye Lemosdall LOADER HELPER pulse rate, standing 78 /min Cynthia Underwood LOADER HELPER Body Mass Index (Ratio) 39.23 kg/m2 Darrel Underwood LOADER HELPER weight E&M 225.0 [lb_av] Cynthia Valera [employer]ADER HELPER Body Mass Index (Ratio) 39.44 kg/m2 Darrel Underwood LOADER HELPER blood pressure, diastolic 80 mm[Hg] Sh campbell Zepedall LOADER HELPER blood pressure, systolic 118 mm[Hg] She rrkitty Zepedall LOADER HELPER pulse rate 88 /min Cynthia Underwood LOADER HELPER weight E&M 226.2 [lb_av] Cynthia Underwood LOADER HELPER Body Mass Index (Ratio) 39.58 kg/m2 Carline ren Ortiz blood pressure, diastolic 71 mm[Hg] Me deo Ortiz blood pressure, systolic 155 mm[Hg] Lizbeth kevin Ortiz pulse rate 92 /min [place] Ortiz oxygen saturation, oximetry 94 % [place] Ortiz respiratory rate E&M 15 /min [place] Ortiz weight E&M 227 [lb_av] [place] Ortiz blood pressure, diastolic 61 mm[Hg] Sh campbell Underwood LOADER HELPER blood pressure, systolic 113 mm[Hg] She rrkitty Zepedall LOADER HELPER Body Mass Index (Ratio) 36.54 kg/m2 Darrel Underwood LOADER HELPER weight E&M 209.6 [lb_av] Cynthia Underwood LOADER HELPER Body Mass Index (Ratio) 36.96 kg/m2 Sanz i Nicky blood pressure, diastolic 61 mm[Hg] Ke rri Omeroer blood pressure, systolic 113 mm[Hg] Ker ri Omeroer pulse rate 83 /min Marlene Kelle lder oxygen saturation, oximetry 98 % Marlene Omeroer respiratory rate E&M 17 /min Marlene Michael escobedo weight E&M 212 [lb_av] Marlene Gruenenfe lder Body Mass Index (Ratio) 35.98 kg/m2 Darrel Underwood LOADER HELPER weight E&M 205.6 [lb_av] Cynthia Underwood LOADER HELPER Body Mass Index (Ratio) 37.27 kg/m2 Darrel Underwood LOADER HELPER weight E&M 213 [lb_av] Cynthia Underwood LOADER HELPER Body Mass Index (Ratio) 37.13 kg/m2 Darrel Underwood LOADER HELPER weight E&M 212.2 [lb_av] Cynthia Underwood LOADER HELPER blood pressure, diastolic 68 mm[Hg] Sh campbell Zepedall LOADER HELPER blood pressure, systolic 122 mm[Hg] She jaye Underwood LOADER HELPER Body Mass Index (Ratio) 37.27 kg/m2 Darrel Underwood LOADER HELPER weight E&M 213 [lb_av] Cynthia Underwood LOADER HELPER blood pressure, diastolic 72 mm[Hg] Sh campbell Zepedall LOADER HELPER blood pressure, systolic 122 mm[Hg] She jaye Underwood LOADER HELPER Body Mass Index (Ratio) 37.27 kg/m2 Darrel Underwood LOADER HELPER pulse rate 72 /min Cynthia Underwood LOADER HELPER respiratory rate E&M 18 /min Cynthia Underwood LOADER HELPER weight E&M 213 [lb_av] Cynthia Underwood LOADER HELPER blood pressure, diastolic, left arm 82 mm [...] NP weight E&M 197 [lb_av] Les awan LOADER HELPER height E&M 63.5 [in_i] Les awan LOADER HELPER blood pressure, diastolic 75 mm[Hg] Yordan george [...] pressure, syst olic, second observation 130 mm[Hg] Jsoe Kline oxygen saturation, oximetry 97 % Jose [...] #2 72 Jose McPherso n blood pressure, fisehr tolic, second observation 81 mm[Hg] Jose Kline blood pressure, syst olic, second observation 142 mm[Hg] Jose Kline oxygen saturation, oximetry 96 % Jose Kline pulse rate 81 /min Jose Kline blood pressure, diastolic 70 mm[Hg] Ra ndy Kline blood pressure, systolic 121 mm[Hg] Ran dy Kline pulse rate #2 90 [facility] blood pressure, fisher tolic, second observation 91 mm[Hg] [facility] blood pressure, syst olic, second observation 153 mm[Hg] [facility] oxygen saturation, oximetry 97 % [facility] pulse rate 87 /min [facility] blood pressure, diastolic 82 mm[Hg] Be [facility] blood pressure, systolic 143 mm[Hg] [facility] pulse rate #2 75 Jose Loreherso [...] iron binding capacity, unsaturated 216 ug/dL [facility] [phone]/06 /07 iron binding capacity, total 285 ug/dL [facility] [phone]/06 /07 lipoprotein, beta, serum, point, quantitative, calculated 34 mg/dL [facility] 0-99 very low density lipoproteins 21 mg/dL [facility] 5-40 HDL cholesterol, serum 54 mg/dL [facility] >39 triglyceride, serum, random 104 mg/dL [facility] 0-149 cholesterol, serum 109 mg/dL [facility] [phone]/09 /29 pro brain natriuretic peptide 135 pg/mL [facility] 0-450 international normalized ratio (INR) 1.0 [facility] 0.9-1.1 prothrombin time (patient) 9.9 Seconds [facility] 9.0-11.5 platelet count 163 Thousand/uL [facility] [phone]/09 /07 Absolute Basophils 0.0 cells/uL [facility] 0.0-0.2 [...] [facility] 3.5-5.1 sodium, serum 143 mmol/L [facility] [phone]/09 /07 creatinine, serum 0.8 mg/dL [facility] 0.5-0.9 [...] cell distribution width, size density 54.8 [facility]L [facility] granulocytes, percentage [...] - 3.9 mean platelet volume 12.2 (?) [facility] - platelet count 180.0 THOUSAND/UL [facility] 100.0 [...] - 23.0 blood glucose, random 82.0 mg/dL [facility] - 99.0 red blood cell distribution width, size density 48.1 fL [facility] - immature granulocytes, percentage of total cells, blood 0.8 % [facility] - nucleated red blood cells as percent of blood leukocytes 0.0 % [facility] - red blood cell (erythrocyte) count, per [...] triglyceride, target level 150 mg/dL Cynthia Kj [employer]ADER HELPER HDL cholesterol, serum, target level 40 mg/dL Cynthia Valera LOADER HELPER LDL target level 70 mg/dL Cynthia Kj LOADER HELPER cholesterol, target level 200 mg/dL Cynthia Valera LOADER HELPER cholesterol/HDL ratio, serum 3.0 Cynthia Kj LOADER HELPER triglyceride, serum, fasting 252 mg/dL Cynthia Kj LOADER HELPER HDL cholesterol, serum 52 mg/dL Cynthia Kj LOADER HELPER LDL cholesterol, serum 53 mg/dL Cynthia Valera LOADER HELPER cholesterol, serum 155 mg/dL Cynthia Valera LOADER HELPER triglyceride, target level 150 mg/dL Cynthia Valera LOADER HELPER HDL cholesterol, serum, target level 40 mg/dL Cynthia Valera LOADER HELPER LDL target level 70 mg/dL Cynthia Valera LOADER HELPER cholesterol, target level 200 mg/dL Cynthia Kj LOADER HELPER cholesterol/HDL ratio, serum 3.4 Cynthia Valera LOADER HELPER triglyceride, serum, fasting 153 mg/dL Cynthia Kj LOADER HELPER HDL cholesterol, serum 43 mg/dL Cynthia Valera LOADER HELPER LDL cholesterol, serum 71 mg/dL Cynthia Kj LOADER HELPER cholesterol, serum 144 mg/dL Cynthia Valera LOADER HELPER cholesterol/HDL ratio, serum 3.0 Cynthia Valera LOADER HELPER triglyceride, serum, fasting 84 mg/dL Cynthia Valera LOADER HELPER HDL cholesterol, serum 50 mg/dL Cynthia Valera LOADER HELPER LDL cholesterol, serum 84 mg/dL Cynthia Kj LOADER HELPER cholesterol, serum 154 mg/dL Cynthia Valera LOADER HELPER TOTAL NON-HDL-C (LDL VLDL) 140 Cynthia Valera LOADER HELPER cholesterol/HDL ratio, serum 4.9 Cynthia Valera LOADER HELPER cholesterol, serum 176 mg/dL Cynthia Valera LOADER HELPER Normal triglyceride, target level 150 mg/dL Cynthia Kj LOADER HELPER HDL cholesterol, serum, target level 40 mg/dL Cynthia Kj LOADER HELPER triglyceride, serum, fasting 202 mg/dL Cynthia Valera LOADER HELPER High HDL cholesterol, serum 36 mg/dL Cynthia Kj LOADER HELPER Low LDL cholesterol, serum 100 mg/dL Cynthia Kj LOADER HELPER High LDL target level 70 mg/dL Cynthai Kj LOADER HELPER cholesterol, target level 200 mg/dL Cynthia Valera LOADER HELPER triglyceride, target level 150 mg/dL Cynthia Valera LOADER HELPER HDL cholesterol, serum, target level 40 mg/dL Cynthia Valera LOADER HELPER LDL target level 70 mg/dL Cynthia Kj LOADER HELPER cholesterol, target level 200 mg/dL Cynthia Valera LOADER HELPER TOTAL NON-HDL-C (LDL VLDL) 142 Cynthia Kj LOADER HELPER cholesterol/HDL ratio, serum 5.3 Cynthia Kj LOADER HELPER triglyceride, serum, fasting 229 mg/dL Cynthia Valera LOADER HELPER High HDL cholesterol, serum 33 mg/dL Cynthia Valera LOADER HELPER Low LDL cholesterol, serum 96 mg/dL Cynthia Kj LOADER HELPER High cholesterol, serum 175 mg/dL Cynthia Valera LOADER HELPER TOTAL NON-HDL-C (LDL VLDL) 129 Cynthia Kj LOADER HELPER cholesterol/HDL ratio, serum 4.2 Cynthia Valera LOADER HELPER cholesterol, serum 169 mg/dL Cynthia Valera LOADER HELPER triglyceride, target level 150 mg/dL Cynthia Kj LOADER HELPER HDL cholesterol, serum, target level 40 mg/dL Cynthia Valera LOADER HELPER triglyceride, serum, fasting 187 mg/dL Cynthia Valera LOADER HELPER High HDL cholesterol, serum 40 mg/dL Cynthia Kj LOADER HELPER Normal LDL cholesterol, serum 92 mg/dL Cynthia Kj LOADER HELPER High LDL target level 70 mg/dL Cynthia Valera LOADER HELPER cholesterol, target level 200 mg/dL Cynthia Kj LOADER HELPER TOTAL NON-HDL-C (LDL VLDL) 99 Cynthia Kj LOADER HELPER cholesterol/HDL ratio, serum 3.9 Cynthia Valera LOADER HELPER cholesterol, serum 131 mg/dL Cynthia Kj LOADER HELPER Normal triglyceride, target level 150 mg/dL Cynthia Kj LOADER HELPER HDL cholesterol, serum, target level 40 mg/dL Cynthia Kj LOADER HELPER triglyceride, serum, fasting 341 mg/dL Cynthia Valera LOADER HELPER High HDL cholesterol, serum 34 mg/dL Cynthia Kj LOADER HELPER Low LDL cholesterol, serum 30 mg/dL Cynthia Kj LOADER HELPER Normal LDL target level 70 mg/dL Cynthia Valera LOADER HELPER cholesterol, target level 200 mg/dL Cynthia Kj LOADER HELPER TOTAL NON-HDL-C (LDL VLDL) 99 Cynthia Kj LOADER HELPER alanine aminotransferase (SGPT), serum 39 1/L Cynthia Kj LOADER HELPER aspartate aminotransferase (SGOT), serum 55 1/L Cynthia Kj LOADER HELPER cholesterol/HDL ratio, serum 3.8 Cynthia Kj LOADER HELPER cholesterol, serum 134 mg/dL Cynthia Kj LOADER HELPER Normal triglyceride, target level 150 mg/dL Cynthia Valera LOADER HELPER HDL cholesterol, serum, target level 40 mg/dL Cynthia Kj LOADER HELPER triglyceride, serum, fasting 152 mg/dL Cynthia Valera LOADER HELPER High HDL cholesterol, serum 36 mg/dL Cynthia Kj LOADER HELPER Low LDL cholesterol, serum 68 mg/dL Cynthia Valera LOADER HELPER Normal LDL target level 70 mg/dL yCnthia Zepedall LOADER HELPER cholesterol, target level 200 mg/dL Cynthia Underwood LOADER HELPER platelet count 164 10*3/mm3 [facility] hematocrit, blood 34.6 % [facility] lipoprotein, beta, serum, point, quantitative, calculated 77 mg/dL [facility] cholesterol, serum 144 mg/dL [facility] creatinine, serum 0.60 mg/dL [facility] potassium, serum 5.1 mmol/L [facility] sodium, serum 137 mmol/L [facility] thyroid stimulating hormone, serum 1.595 u[IU]/mL [facility] thyroxine, serum, free 0.15 ng/dL [facility] triiodothyronine (T3), serum 233.0 ng/dL [facility] globulins, serum, total 4.3 g/dL [facility] estimated glomerular filtration rate 91.3 mL/min [facility] albumin/globulin ratio, serum 0.9 [facility] protein, total, serum 8.3 g/dL [facility] albumin, serum 4.0 g/dL [facility] bilirubin, serum, total 0.4 mg/dL [facility] alkaline phosphatase, serum 60 1/L [facility] alanine aminotransferase (SGPT), serum 57 1/L [facility] aspartate aminotransferase (SGOT), serum 67 1/L [facility] calcium, serum 9.1 mg/dL [facility] blood glucose, fasting 175 mg/dL [facility] creatinine, serum 0.7 mg/dL [facility] urea nitrogen, blood 23 mg/dL [facility] carbon dioxide, serum, total 28 mmol/L [facility] chloride, serum 105 mmol/L [facility] potassium, serum 4.3 mmol/L [facility] sodium, serum 136 mmol/L [facility] TOTAL NON-HDL-C (LDL VLDL) 120 Lacretijohnny BlairCarpenter NP alanine aminotransferase (SGPT), serum 30 1/L [facility] aspartate aminotransferase (SGOT), serum 36 1/L [facility] cholesterol/HDL ratio, serum 4 Lacretijohnny BlairCarpenter NP triglyceride, serum, fasting 167 mg/dL [facility] HDL cholesterol, serum 40 mg/dL [facility] LDL cholesterol, serum 86 mg/dL [facility] cholesterol, serum 159 mg/dL [facility] triglyceride, target level 150 mg/dL [facility] HDL cholesterol, serum, target level 40 mg/dL [facility] LDL target level 70 mg/dL [facility] cholesterol, target level 200 mg/dL [facility] creatine kinase, serum <0.2 [facility] Estimated Glomerular Filtration Rate (calc) >60 [facility] calcium, serum 9.1 mg/dL [facility] creatinine, serum 0.50 mg/dL [facility] urea nitrogen, blood 23 mg/dL [facility] carbon dioxide, serum, total 28 mmol/L [facility] chloride, serum 100 mmol/L [facility] potassium, serum 4.4 mmol/L [facility] sodium, serum 138 mmol/L [facility] troponin I <0.02 [facility] triglyceride, serum, fasting 121 mg/dL [facility] HDL cholesterol, serum 46 mg/dL [facility] LDL cholesterol, serum 103 mg/dL [facility] cholesterol, serum 175 mg/dL [facility] PTT patient 25 s [facility] prothrombin time (patient) 12.7 s [facility] international normalized ratio (INR) 1.0 [facility] platelet count 202 10*3/uL [facility] red blood cell distribution width 13.3 % [facility] mean corpuscular hemoglobin concentration, RBC 34.0 g/dL [facility] mean corpuscular hemoglobin, RBC 29.9 pg [facility] mean corpuscular volume, RBC 87.9 fL [facility] hematocrit, blood 35.4 % [facility] hemoglobin, blood 12.1 g/dL [facility] erythrocyte (RBC) count 4.03 10*6/mm3 [facility] monocyte count, blood 0.3 10*3/mm3 [facility] lymphocyte count, blood 2.2 10*3/mm3 [facility] monocytes as percent of blood leukocytes 4.7 % [facility] lymphocytes as percent of blood leukocytes 32.7 % [facility] leukocyte count, blood 6.8 10*3/mm3 [facility] nitrate usage 0 Sarah Welch HISTORY [...] completed once a day 10/02 - 03/30 Pasclae Ortiz EQL POTASSIUM GLUCONATE 595 (99 K) [...] TAB. DAILY 09/20 - 08/04 Cynthia Underwood LOADER HELPER FEMHET completed 03/03 tab one tab daily [...] 5 mg twice daily - 08/06 Melissa Letcher NEXIUM 40 MG ORAL CAPSULE DELAYED RELEASE [...] MD drug use no Isabel Ventimig della [facility] alcohol use no Isabel Ventimig della [facility] smoking status Former smoker Isabel Venti miglia [facility] social history E&M Marital Statu s: L demi with family/friends E thnicity: C hildren: 4 children P atient is a former smoker. R egular Exercise - no S moking History: P atient is a former smoker. Daivd Vanegas MD social history reviewed E&M revi [...] Fran chewing tobacco use Never Catherin e [place] smoking, year quit 1997 Ting [place] smoking history, tot al pack/year 37 Ting Fran smoking history, tot al pack/day 1 Ting Fran cigarette use yes Ting [place] smoking status Former smoker Ting Ot is quit smoking, stage quit David winslow MD social history E&M Marital Statu s: L demi with family/friends E thnicity: C hildren: 4 children P percy is a former smoker. R egular Exercise - no S moking History: Leilani grere is a former smoker. David Vanegas MD [...] Ileana chewing tobacco use Never Cynthia lewislouis LOADER HELPER smoking status Former smoker Cynthia Zepeda marcus LOADER HELPER social history E&M Marital Statu s: L [...] use, average drinks per day social Isael Wiggnis alcohol use yes Isael Delarosa nson caffeine use, averag e drinks per day yes Isael Wiggins smoking, year quit 1998 Isael Wiggins smoking history, tot al pack/year 37 Isael Wiggins smoking history, tot al pack/day 1 Isael Wiggins cigarette use yes Isael joseph smoking status Former smoker Isael [place] smoking status Former smoker Cynthia velazquez LOADER HELPER smoking/tobacco cess ation, patient education and counseling yes Cynthia Underwood [employer]ADER HELPER smoking status Former smoker Cynthia velazquez LOADER HELPER quit smoking, stage quit David winslow MD [...] Garret hamzah smoking status former smoker Koki Stobbe r social history reviewed E&M reviewed David [...] average drinks per day social basis [facility] FUNCTION[facility] STATUS Date Observation [...] level yes [place] Tebid energy level yes [place] Tebid energy level yes [place] Tebid energy level yes [place] Tebid energy level yes [place] Tebid energy level yes [place] Tebid energy level yes [place] Tebid energy level yes [place] Tebid energy level yes [place] Tebid energy level yes [place] Tebid energy level yes [place] Tebid energy level yes [place] Tebid energy level yes [place] Tebid energy level yes [place] Tebid energy level yes [place] Tebid energy level yes [place] Tebid energy level yes [place] Tebid energy level yes [place] Tebid energy level yes [place] Tebid energy level yes [place] Tebid energy level yes [place] Tebid energy level yes [place] Tebid energy level yes [place] Tebid energy level yes [place] Tebid energy level yes [place] Tebid energy level yes [place] Tebid energy level yes [place] Tebid energy level yes [place] Tebid energy level yes [place] Tebid energy level yes [place] Tebid energy level yes [place] Tebid energy level no [place] Tebid energy level no [place] Tebid energy level no [place] Tebid assessment of judgme nt and insight [...] Payer name Policy type / Coverage type [place] [employer] MED[place] [id number] [facility] [id number] ADVANCE DIRECTIVES Name Date DISCUSSED - NO DECISION MADE TREATMENT PLAN Date Name Performer [id number],C,nayeli cannon MD [id number],S,weight loss e ncouraged. [facility] [id number],S, H er updated medication list for this problem includes: Atorvastatin 40 Mg Tablet (Atorvastatin) ..... Take 1 tablet daily at bedtime [facility] [id number],C,B P well controlled per home RPM average [...] once a day take 1 tablet daily [facility] [id number],S,H as CPAP and is compliant. concern that needs updated settings given progressive SOB. Will repeat IHS on CPAP [facility] [id number],C,W ith EF of 65%. Has been unable to tolerate Jardiance. Remains on diuretic. Her BP is well controlled. Will plan [facility] study to see if helps with symptoms. [...] day take 1 tablet daily Isabel Frankel [facility] [id number],S,O nly mild on recent echo. Will monitor. Isabel Frankel [facility] [id number],W,H as had ongoing progressive SOB that is [...] proper settings. We will also refer for [facility] study H er updated medication list for [...] a day take 1 tablet daily Isabel Franekl [facility] [id number],C,7.4 David cannon MD [id number],B, David turner MD [id number],S, 5 5 David Vanegas MD [id number],S, H eart monitor revealed no arrythmias. SR with no ectopy, pauses. neg hep [place] eg neg vd for edma David Jacquesa [id number],S, a bi less then .6 with cladicoiatn d ista dz by angio David Jacquesjohnny HANSON [id number],S, n eg rpr and b12 David Jacquesa [id number],S, 1 100 David Jacquesa [id number],S, David Serot a [id number],S, s core 110 N o angina 3 0% distal lad David Jacquesjohnny HANSON [id number],B, s tii; anemic on iron H AD INFUSIN AND RESOVLED N, HAD COLON, David Jacquesjohnny HANSON [id number],S, David Serot a [id number],S,d ue to ms? 2 97 David Vanegas [id number],S, m odeated ms and midl mr David Vanegas [id number],C,modeated ms a nd midl mr David Vanegas [id number],S,8.2 David Se rota [id number],S, David Serot a [id number],S, 2 97 David Jacquesa [id number],S, H eart monitor revealed no arrythmias. SR with no ectopy, pauses. neg hep [place] n eg neg vd for edma David Vanegas [id number],S, n eg rpr and b12 David Jacquesa [id number],S, a bi less then .6 with cladicoiatn d ista dz by angio David Jacquesjohnny HANSON [id number],S, David Serot a [id number],S, M oderate MS , Mild MR. on echo 03/2021. repeat next year David Vanegas MD [id number],S, s core 110 N o angina 3 0% distal lad David Vanegas MD [id number],B, s tii; anemic on iron H AD INFUSIN AND RESOVLED N, HAD COLON, David Serotjohnny HANSON [id number],S, David Serot a [id number],B, s tii; anemic on iron H AD INFUSIN AND RESOVLED N, HAD COLON, David Romina HANSON [id number],S,8.2 David cannon MD [id number],B,55 David Ser joselin HANSON [id number],S, n eg rpr and b12 David Vanegas MD [id number],S, David Serot a [id number],S,s tii; anemic on iron H AD INFUSIN AND RESOVLED N, HAD COLON, David Romina HANSON [id number],C,6.7 David cannon MD [id number],S,a bi less then .6 with cladicoiatn d ista dz by angio David Vanegas MD [id number],S,s core 110 N o angina 3 0% distal lad David Vanegas MD [id number],S, H eart monitor revealed no arrythmias. SR with no ectopy, pauses. neg hep [place] n eg neg vd for edma ,neg uiacr David Vanegas MD [id number],B, H eart monitor revealed no arrythmias. SR with no ectopy, pauses. David Vanegas MD [id number],S, 2 97 David Vanegas MD [id number],S,efgr 45 Sima Vanegas MD [id number],S, M oderate MS , Mild MR. on echo 03/2021. repeat next year David Vanegas MD [id number],C, 5 .8 F arxiga too expensive, invokana diarhrrea. was on jardiance in the past but thinks she had a reaction as well. C urrently on metformin and insulin Ella Orr NP [id number],C,s tart kerendia H er updated medication list for this problem includes: Metoprolol Succinate 25 Mg Tablet Extended Release 24 Hr (Metoprolol succinate) ..... Take 1 tablet daily Aspirin 81 Mg Tablet,delayed Release (dr/ec) (Aspirin) ..... Take 1 tablet daily Ella Orr NP [id number],C,N o angina 3 0% distal lad Ella Orr NP [id number],C,M oderate MS , Mild MR. on echo 03/2021. repeat next year Ellatito Orr NP [id number],C,H eart monitor revealed no arrythmias. SR with no ectopy, pauses. Ella Orr NP [id number],C,mod ms with m ild mr David Vanegas MD [id number],S, aDvid turner MD [id number],S, r echeck echo to eval David Vanegas MD [id number],S,297 David cannon MD [id number],S,1100 David S goldy [id number],S,n eg hep [place] n eg neg vd for edma ,neg uiacr David Vanegas MD [id number],C,5.8 David cannon MD [id number],C,dista dz by a peri Vanegas MD [id number],B,andersojn bb increaed David Vanegas MD [id number],S, n eg rpr and b12 David Vanegas MD [id number],S, David turner MD [id number],S, F ollows with pulmonary David Vanegas MD [id number],S, 3 0% distal lad David Vanegas MD [...] sherman , ms pregresson by echo at [facility] ms and rm bye shawanda 2022 [...] titration:nayeli turner MD Cardiology:weight loss encourage d. [facility] Cardiology: H er updated medication list for this problem includes: Atorvastatin 40 Mg Tablet (Atorvastatin) ..... Take 1 tablet daily at bedtime [facility] Cardiology:BP well c ontrolled per home RPM [...] once a day take 1 tablet daily [facility] Cardiology:Has CPAP and is compliant. concern that needs updated settings given progressive SOB. Will repeat IHS on CPAP [facility] Cardiology:With EF o f 65%. Has been unable to tolerate Jardiance. Remains on diuretic. Her BP is well controlled. Will plan [facility] study to see if helps with symptoms. [...] once a day take 1 tablet daily [facility] Cardiology:Only mild on recent e cho. Will monitor. [facility] Cardiology:Has had o ngoing progressive SOB that [...] proper settings. We will also refer for [facility] H er updated medication list for this [...] day take 1 tablet daily Isabel Frankel [employer] Cardiology:7.4 David Vanegas MD Cardiology David Vanegas [...] next year David Vanegas MD Cardiology-seen with LOADER HELPER: 5 .8 F arxiga too expensive, invokana diarhrrea. was on jardiance in the past but thinks she had a reaction as well. C urrently on metformin and insulin Ella Orr NP Cardiology-seen with LOADER HELPER:sherri jay updated medication list for this problem includes: Metoprolol Succinate 25 Mg Tablet Extended Release 24 Hr (Metoprolol succinate) ..... Take 1 tablet daily Aspirin 81 Mg Tablet,delayed Release (dr/ec) (Aspirin) ..... Take 1 tablet daily Ella Orr NP Cardiology-seen with LOADER HELPER:No angina 3 0% distal lad Ella Orr NP Cardiology-seen with LOADER HELPER:Moderate MS , Mild MR. on echo 03/2021. repeat next year Ella Orr NP Cardiology-seen with LOADER HELPER:Heart monitor revealed no arrythmias. SR with no [...] AND RESOVLED N, HAD COLONDavid MD Cardiology:297 Dvaid Vanegas MD Cardiology:30 by ech os p [...] daily at bedtime Lovaza 1 Gm Caps (Zxsxc-2-ujvd ethyl esters) ..... 2 capsules daily David Vanegas MD Cardiology - LOADER HELPER ramon jones:Patient's endocrine MD had placed her [...] breath, fatigue, dizziness, nausea, or diaphoresis) of [place] [employer] Class III (defined as symptoms with everyday living activities, i.e. moderate limitation) or [place] [employer] Society Class IV (defined as inability [...] this problem includes: Lovaza 1 Gm Caps (Uqqff-9-ndjc ethyl esters) ..... 2 capsules daily C [...] this problem includes: Lovaza 1 Gm Caps (Ubpih-3-okjv ethyl esters) ..... 2 capsules daily C [...] this problem includes: Lovaza 1 Gm Caps (Grgzc-7-nhgr ethyl esters) ..... 2 capsules daily C [...] this problem includes: Lovaza 1 Gm Caps (Lhobd-8-tsge ethyl esters) ..... 2 capsules daily Cynthia [...] this problem includes: Lovaza 1 Gm Caps (Grnub-8-rjlc ethyl esters) ..... 2 capsules daily Cynthia [...] this problem includes: Lovaza 1 Gm Caps (Ymomg-1-rlzs ethyl esters) ..... 2 capsules daily Cynthia [...] this problem includes: Lovaza 1 Gm Caps (Jgmcj-7-omxf ethyl esters) ..... 2 capsules daily Patient [...] daily Orders: Full PFT (*) S pirometry (CPT-27605) C omplete Echo (CPT-20872) e Prescribe - Check this box if eRx is used (CPT-G8553) E CP Commercial (CPT-56939) David Vanegas MD follow up David Vanegas MD follow up: O rders: F ull PFT (*) S pirometry (CPT-57892) C omplete Echo (CPT-60185) e Prescribe - Check this box if eRx is used (CPT-G8553) E CP Commercial (CPT-68773) David Vanegas MD follow up: T he following medications were removed from the medication list: Aspirin 81 Mg Tabs (Aspirin) ..... One tab. daily Her updated medication list for this problem includes: Atenolol 25 Mg Tabs (Atenolol) ..... One tab. daily Orders: F ull PFT (*) S pirometry (CPT-50985) C omplete Echo (CPT-92355) e Prescribe - Check this box if eRx is used (CPT-G8553) E CP Commercial (CPT-47958) David Vanegas MD follow up David Vanegas MD follow up David Vanegas MD follow up: O rders: F ull PFT (*) S pirometry (CPT-70440) C omplete Echo (CPT-47613) e Prescribe - Check this box if eRx is used (CPT-G8553) E CP Commercial (CPT-33184) David Vanegas MD follow up: T he following medications were removed from the medication list: Aspirin 81 Mg Tabs (Aspirin) ..... One tab. daily Her updated medication list for this problem includes: Atenolol 25 Mg Tabs (Atenolol) ..... One tab. daily Orders: F ull PFT (*) S pirometry (CPT-53185) C omplete Echo (CPT-68721) e Prescribe - Check this box if eRx is used (CPT-G8553) E CP Commercial (CPT-27073) David Vanegas MD follow up: O rders: F ull PFT (*) S pirometry (CPT-97387) C omplete Echo (CPT-24301) e Prescribe - Check this box if eRx is used (CPT-G8553) E CP Commercial (CPT-71756) David Vanegas MD follow up: H er [...] ..... One tab. daily David Vanegas MD [facility] only, use bare metal stent David Vanegas MD [facility] only, use bare metal stent: H er updated medication list for this problem includes: Liothyronine Sodium 25 Mcg Tabs (Liothyronine sodium) ..... Take one tablet twice daily David Vanegas MD [facility] only, use bare metal stent David Vanegas MD [facility] only, use bare metal stent David Vanegas MD [facility] only, use bare metal stent: [...] up: O rders: C ardiopulmonary Stress Test (CPT-54570) E CP Commercial (CPT-92729) C omplete Echo (CPT-38182) S tress Test - Adenosine (76451) David Vanegas MD follow up: O rders: C ardiopulmonary Stress Test (CPT-46375) E CP Commercial (CPT-53668) C omplete Echo (CPT-33394) S tress Test - Adenosine (00335) David Vanegas MD follow up David Vanegas MD follow up David Vanegas MD follow up David Vanegas MD follow up David Vanegas MD follow up David Vanegas MD follow up: O rders: C ardiopulmonary Stress Test (CPT-25805) E CP Commercial (CPT-95145) C omplete Echo (CPT-64557) S tress Test - Adenosine (58491) David Vanegas MD follow up: H er [...] ormal pulmonic valve. (10/19/2007) Orders: S pirometry (CPT-82401) C omplete Echo (CPT-47494) S tress Test - Adenosine (18041) David Vanegas MD follow up: B P [...] (Atenolol) ..... One tab. daily Orders: Spirometry (CPT-01365) C omplete Echo (CPT-16054) S tress Test - Adenosine (61328) David Vanegas MD follow up David Vanegas MD follow up: O rders: S pirometry (CPT-72662) C omplete Echo (CPT-93079) S tress Test - Adenosine (85468) David Vanegas MD follow up: H er [...] Normal pulmonic valve. (10/19/2007) Orders: S pirometry (CPT-36256) C omplete Echo (CPT-60993) S tress Test - Adenosine (13459) David Vanegas MD follow up: O rders: S pirometry (CPT-87990) C omplete Echo (CPT-38419) S tress Test - Adenosine (21685) David Vanegas MD follow up: H er updated medication list for this problem includes: Aspirin 81 Mg Tabs (Aspirin) ..... One tab. daily Atenolol 25 Mg Tabs (Atenolol) ..... One tab. daily Orders: Spirometry (CPT-29497) C omplete Echo (CPT-03991) S tress Test - Adenosine (61432) David Vanegas MD follow up: H er [...] Cl: 100 (07/25/2010) O rders: S pirometry (CPT-11108) C omplete Echo (CPT-52131) S tress Test - Adenosine (94371) David Vanegas MD follow up: H er [...] P TT: 25 (07/25/2010) Orders: S pirometry (CPT-26242) C omplete Echo (CPT-26113) S tress Test - Adenosine (38384) David Vanegas MD follow up David Vanegas [...] Vanegas MD routine: O rders: E KG (CPT-11633) David Vanegas MD routine David Vanegas MD routine: H er updated medication list for this problem includes: Aspirin 81 Mg Tabs (Aspirin) ..... One tab. daily Atenolol 25 Mg Tabs (Atenolol) ..... One tab. daily David Vanegas MD routine David Vanegas MD routine David Vanegas MD ECP bvcdpf-ck-gps pa in greater in right: H er updated medication list for this problem includes: Levothroid 150 Mcg Tabs (Levothyroxine sodium) ..... 1 tablet dailly David Vanegas MD ECP iayxcw-dz-nxr pa in greater in right: H er [...] BP: 125/71 (07/07/2008) David Vanegas MD ECP azgohv-mg-wht pa in greater in right: H er [...] filling pressures. (11/26/2003) David Vanegas MD ECP twgpbg-qz-boo pa in greater in right: H er [...] ormal pulmonic valve. (10/19/2007) Orders: E KG (CPT-25345) David Vanegas MD ECP vbmaog-mt-qve pa in greater in right: H er updated medication list for this problem includes: Atenolol 25 Mg Tabs (Atenolol) ..... One tab. daily Aspirin 81 Mg Tabs (Aspirin) ..... One tab. daily BP today: 128/78 P rior BP: 125/71 (07/07/2008) David Vanegas MD ECP xalfpw-wd-pdk pain greater i n right David Vanegas MD ECP pyglbx-cu-xub pa in greater in right: H er updated medication list for this problem includes: Lescol Xl 80 Mg Tb24 (Fluvastatin sodium) ..... 1 tablet daily BP today: 128/78 Prior BP: 125/71 (07/07/2008) David Vanegas MD ECP piafkz-ge-hnj pain greater i n right David Vanegas MD ECP togajl-yr-itc pa in greater in right: H er [...] daily Orders: H olter Monitor 24 Hr (CPT-12266) BP today: 138/80 Prior BP: / () [...] Orders: X -Ray, Chest, PA & Lateral (CPT-79325) H olter Monitor 24 Hr (CPT-79811) David Vanegas MD rattle : B P [...] pressure of 18mmHg. (10/26/2006) Orders: E KG (CPT-75787) E CP Commercial (CPT-73942) C omplete Echo (CPT-39700) BP today: 138/80 Prior BP: / () [...] Echo Sleep Study Titratio n DLCO - 90373 FRC - 52558 FVC - 01676 Stress Cardiac PET-C T Complete Echo Stress [...] Cath - Right - [facility] DLCO - 59169 FRC - 04865 FVC - 31811 PROTHROMBIN TIME WIT H INR CBC (INCLUDES [...] tatus Complex e/m visit add on David Vaneags MD completed Complex e/m visit add on David Vanegas MD completed FVC / MVV with bronchodilator - 59097 David Vanegas MD completed BLOOD COUNT HEMOGLOBIN David Vanegas MD completed FRC - 10767 David Vanegas MD complet ed SpO2 w/o 6min walk/titration David Vanegas MD completed DLCO - 12223 David Vanegas MD comple roxanne EKG David Vanegas MD complete d EKG David Vanegas MD complete d EKG David Vanegas MD complete d EKG David Vanegas MD complete d EKG David Vanegas MD complete d SNOMED-CT: 811159754 827465 Current Medications Documented David Vanegas MD completed FVC / MVV with bronchodilator - 34778 David Vanegas MD completed BLOOD COUNT HEMOGLOBIN David Vanegas MD completed FRC - 43527 David Vanegas MD complet ed SpO2 - 61709 David Vanegas MD comple roxanne DLCO - 09056 David Vanegas MD comple roxanne SNOMED-CT: 485756689 577129 Current Medications Documented David Vanegas MD completed CT- Coronary CA score David Vanegas MD completed EKG David Vanegas MD complete d SNOMED-CT: 510156670 954683 Current Medications Documented David Vanegas MD completed SNOMED-CT: 485977616 933871 Current Medications Documented David Vanegas MD completed SNOMED-CT: 57770838 Physical Exam, Performed: Pulse Exam of Foot David Vanegas MD completed EKG David Vanegas MD complete d SNOMED-CT: 367680585 073744 Current Medications Documented David Vanegas MD completed SNOMED-CT: 70776545 Physical Exam, Performed: Pulse Exam of Foot David Vanegas MD completed EKG David Vanegas MD complete d SNOMED-CT: 966559152 774452 Current Medications Documented David Vanegas MD completed [...]
--- OUTSIDE RECORDS SUMMARY | 2024-06-20 15:12 | XMS_ITS | Clinical Summary ---
Author Organization [facility] Address [address] [facility] [place] [address] Phone Care Team Providers Care Director Treasurer Name Role Phone Charles Armendariz DO Primary [...] Tablet Take 1 Tab by mouth daily. [id number] 1 Tab 0 6 Active azithromycin (ZITHROMAX) [...] age to complete this topic Insurance MEDICARE [facility] Care Teams Director Treasurer Relationship Specialty Start Date End Date Charles Armendariz DO [address] [place] [address] PCP - General Internal Medicine 11/05/15
--- OUTSIDE RECORDS SUMMARY | 2024-06-20 15:12 | XMS_ITS | Clinical Summary ---
Author Organization [facility] Gigi Begumcharline Address [address] [facility] [place] [address] Care Team Providers Care Metalizing Supervisor Name Role Phone Charles Armendariz DO Primary Care Provider Allergies Active Allergy Reactions Criticality Noted Date Comments Canagliflozin Other (See Comments) Low 10/28/2021 Ciprofloxacin Nausea and Vomiting Low 09/08/2022 Daptomycin Diarrhea Low 06/29/2020 Doxycycline Other (See Comments),Unknown Low 09/19/2019 Empagliflozin Diarrhea Low 04/21/2021 Lisinopril Cough Low 08/13/2018 Povidone-Iodine Rash Medium 05/05/2017 Semaglutide Unknown High 01/27/2021 Iihzabz-Buj-Wpb Reductase Inhibitors Muscle Pain Medium 11/05/2020 Valsartan [...] daily. Active fluticasone propionate (FLONASE) 50 mcg/spray [place], Suspension nasal inhaler Administer 2 Sprays in [...] Encounters Date Type Department Care Team Description 2024 Orders Only [facility] Oncology and Hematology - Kevin [address] [place] [address] Ray Richards MD 06/17/2024 Orders Only [facility] Oncology and Hematology - Kevin [address] [place] [address] Ray Richards MD Chronic anemia 06/13/2024 Orders Only [facility] Oncology and Hematology - Kevin [address] [place] [address] Ray Richards MD Chronic anemia (Primary Dx) 06/03/2024 Orders Only [facility] Oncology and Hematology - Kevin [address] [place] [address] Ray Richards MD Chronic anemia 05/28/2024 External Device Data STL ABSTRACTION Provider, Abstract 05/28/2024 External Device Data ST[place] ABSTRACTION Provider, Abstract 05/28/2024 External Device Data STL ABSTRACTION Provider, Abstract 05/22/2024 9:45 AM CDT Office Visit [facility] Oncology and Hematology - Kevin [address] [place] [address] Ray Richards MD Chronic anemia (Primary Dx) 05/22/2024 Orders Only [facility] Oncology and Hematology - Kevin [address] [place] [address] Ray Richards MD 05/20/2024 Orders Only [facility] Oncology and Hematology - Kevin [address] [place] [address] Ray Richards MD Chronic anemia 05/06/2024 Orders Only [facility] Oncology and Hematology - Kevin [address] [place] [address] Ray Richards MD Chronic anemia 05/01/2024 External Device Data STL ABSTRACTION Provider, Abstract 05/01/2024 External Device Data STL ABSTRACTION Provider, Abstract 04/30/2024 External Device Data STL ABSTRACTION Provider, Abstract 04/27/2024 1:30 AM MILANESE KNITTING MACHINE OPERATOR - 04/27/2024 7:05 AM [facility] Emergency [facility] Emergency Department [address] [place] [phone] Tobias Holden MD Encounter for blood typing (Primary Dx); Fall, initial encounter; Traumatic hematoma of right elbow, initial encounter Discharge Disposition: Home or Self Care 04/27/2024 Travel 04/24/2024 Orders Only [facility] Oncology and Hematology - Kevin [address] [place] [address] Ray Richards MD 04/22/2024 Orders Only [facility] Oncology and Hematology - Kevin [address] [place] [phone] Ray Richards MD Chronic anemia 04/16/2024 External Device Data STL ABSTRACTION Provider, Abstract 04/11/2024 Orders Only [facility] Oncology and Hematology - Kevin [address] [place] [phone] Ray Richards MD Chronic anemia (Primary Dx) 04/09/2024 Orders Only [facility] Oncology and Hematology - [address] [place] [phone] Ray Richards MD Chronic anemia (Primary Dx) 04/08/2024 Orders Only [facility] Oncology and Hematology - Kevin [address] [place] [phone] Ray Richards MD Chronic anemia 03/28/2024 Orders Only [facility] Oncology and Hematology - Kevin [address] [place] [address] Ray Richards MD 03/27/2024 9:15 AM MILANESE KNITTING MACHINE OPERATOR Office Visit [facility] Oncology and Hematology - Kevin [address] [place] [address] Ray Richards MD Chronic anemia (Primary Dx) 03/27/2024 Orders Only [facility] Oncology and Hematology - Kevin [address] [place] [address] Ray Richards MD 03/26/2024 External Device Data STL ABSTRACTION Provider, Abstract 03/25/2024 Orders Only [facility] Oncology and Hematology - Kevin [address] [place] [address] Ray Richards MD Chronic anemia from Last [...] on file Legal Sex Female 3:40 AM MILANESE KNITTING MACHINE OPERATOR Gender Identity Not on file [...] cm (5' 1 ) 04/12/2023 1:08 PM MILANESE KNITTING MACHINE OPERATOR Body Mass Index 40.17 04/12/2023 1:08 PM MILANESE KNITTING MACHINE OPERATOR Plan of Treatment Upcoming Encounters Date Type Department Care Team (Late st Contact Info) Description 07/31/2024 9:30 AM CDT Office Visit [facility] Oncology and Hematology - Kevin [address] [facility] [address] [place] [address] Ray Richards MD [address] [facility] [address] [place] [address] Health Maintenance Due Date Last [...] CELL DIFFERENTIAL Routine 2024 12:58 PM CDT CBC WITH AUTODIFFERENTIAL Routine 05/21/2024 1:41 PM CDT TYPE AND SCREEN Stat 04/27/2024 3:27 AM MILANESE KNITTING MACHINE OPERATOR CT HEAD CERVICAL SPINE WO CONTRAST Stat 04/27/2024 3:02 AM MILANESE KNITTING MACHINE OPERATOR XR FOREARM 2 VW RIGHT Stat 04/27/2024 2:54 AM MILANESE KNITTING MACHINE OPERATOR XR HUMERUS 2+ VW RIGHT Stat 2:54 AM MILANESE KNITTING MACHINE OPERATOR XR KNEE 3 VW RIGHT Stat 04/27/2024 2: 54 AM MILANESE KNITTING MACHINE OPERATOR XR KNEE 3 VW LEFT Stat 04/27/2024 2:5 4 AM MILANESE KNITTING MACHINE OPERATOR XR CHEST PA OR AP 1 VW Stat 2:54 AM MILANESE KNITTING MACHINE OPERATOR VERIFICATION BLOOD GROUP Stat 025 2:21 AM MILANESE KNITTING MACHINE OPERATOR Encounter for blood typing PTT Stat 04/27/2024 2:21 AM MILANESE KNITTING MACHINE OPERATOR PROTIME-INR Stat 04/27/2024 2:21 AM MILANESE KNITTING MACHINE OPERATOR COMPREHENSIVE METABOLIC PANEL Stat 04/27/2024 2:21 AM MILANESE KNITTING MACHINE OPERATOR CBC WITH DIFFERENTIAL Stat 04/27/2024 2:21 AM MILANESE KNITTING MACHINE OPERATOR CBC WITH AUTODIFFERENTIAL Routine 04/24/2024 11:51 AM MILANESE KNITTING MACHINE OPERATOR BASIC METABOLIC PANEL Routine 03/27/2024 4:07 PM MILANESE KNITTING MACHINE OPERATOR CBC WITH DIFFERENTIAL Routine 03/27/2024 3:59 PM MILANESE KNITTING MACHINE OPERATOR IRON PANEL Routine 03/27/2024 11:52 AM MILANESE KNITTING MACHINE OPERATOR IRON, TIBC, AND PERCENT SATURATION Routine 03/26/2024 1:21 PM MILANESE KNITTING MACHINE OPERATOR BASIC METABOLIC PANEL Stat 03/26/2024 1:21 PM MILANESE KNITTING MACHINE OPERATOR Chronic anemia FERRITIN Routine 03/26/2024 1:21 PM MILANESE KNITTING MACHINE OPERATOR Chronic anemia CBC WITH DIFFERENTIAL Routine 03/26/2024 1:21 PM MILANESE KNITTING MACHINE OPERATOR Chronic anemia from Last 3 Months Results * CBC MIXED CELL DIFFERENTIAL (2024 12:58 PM CDT) Blood Ray Richards MD HEMATOLOGY ORDERABLES Final Res ult * CBC WITH AUTODIFFERENTIAL (05/21/2024 1:41 PM CDT) Only the most recent of2 resultswithin the time period is included. Blood Ray Richards MD HEMATOLOGY ORDERABLES Final Res ult * TYPE AND SCREEN (04/27/2024 3:27 AM MILANESE KNITTING MACHINE OPERATOR) ABO GROUP B 04/27/2024 5:22 AM MILANESE KNITTING MACHINE OPERATOR [employer] [facility]ATORY SERVICES -- [facility] RH (D) TYPE Positive 04/27/2024 5:22 AM MILANESE KNITTING MACHINE OPERATOR [employer] [facility] -- [facility] ANTIBODY SCREEN Negative 04/27/2024 5:22 AM MILANESE KNITTING MACHINE OPERATOR [employer] [facility]ORY SERVICES -- [facility] Blood Venipuncture / Unknown 04/27/2024 3:27 AM MILANESE KNITTING MACHINE OPERATOR 04/27/2024 3:35 AM MILANESE KNITTING MACHINE OPERATOR Tobias Holden MD BLOOD BANK ORDERABLES Edited Result - Final [facility] -- [facility]# [id number] [address] [place] [address] [place] [address] * CT HEAD CERVICAL SPINE WO CONTRAST (04/27/2024 3:02 AM MILANESE KNITTING MACHINE OPERATOR) Anatomical Region Laterality Modality Head Computed Tomogra phy 04/27/2024 2:47 AM MILANESE KNITTING MACHINE OPERATOR Impressions 04/27/2024 3:22 AM MILANESE KNITTING MACHINE OPERATOR IMPRESSION: 1. No acute intracranial finding 2. Chronic small vessel skin changes 3. No evidence of cervical spine fracture. Spondylitic changes seen throughout DICTATION LOCATION: Location 4 Narrative 04/27/2024 3:22 AM MILANESE KNITTING MACHINE OPERATOR CT HEAD CERVICAL SPINE WO CONTRAST EXAM [...] FOREARM 2 VW RIGHT (04/27/2024 2:54 AM MILANESE KNITTING MACHINE OPERATOR) Anatomical Region Laterality Modality Upper Extremity Computed Radiogr aphy 04/27/2024 2:55 AM MILANESE KNITTING MACHINE OPERATOR Impressions 04/27/2024 9:10 AM MILANESE KNITTING MACHINE OPERATOR IMPRESSION: 1. No acute osseous abnormality identified. Subtle linear lucency in the radial head which is likely due to variant of trabeculation with a fracture felt to be unlikely. If there is clinical concern for radial head fracture would recommend follow-up dedicated elbow radiographs. 2. Focal soft tissue swelling involving the proximal forearm which is likely a hematoma. DICTATION LOCATION: Location 2 - [facility] Narrative 04/27/2024 9:10 AM MILANESE KNITTING MACHINE OPERATOR XR FOREARM 2 VW RIGHT DATE: 04/27/2024 [...] is likely a hematoma. DICTATION LOCATION: Location [address] [place] [address] [place] Tobias Holden MD DIAGNOSTIC IMAGING ORDERABLES Final Result * XR HUMERUS 2+ VW RIGHT (04/27/2024 2:54 AM MILANESE KNITTING MACHINE OPERATOR) Anatomical Region Laterality Modality Upper Extremity Computed Radiogr aphy 04/27/2024 2:54 AM MILANESE KNITTING MACHINE OPERATOR Impressions 04/27/2024 7:48 AM MILANESE KNITTING MACHINE OPERATOR IMPRESSION: 1. No acute osseous abnormality identified. DICTATION LOCATION: [address] Narrative 04/27/2024 7:48 AM MILANESE KNITTING MACHINE OPERATOR XR HUMERUS 2+ VW RIGHT DATE: 04/27/2024 [...] No acute osseous abnormality identified. DICTATION LOCATION: [address] us Tobias Holden MD DIAGNOSTIC IMAGING ORDERABLES Final Result * XR KNEE 3 VW RIGHT (04/27/2024 2:54 AM MILANESE KNITTING MACHINE OPERATOR) Anatomical Region Laterality Modality Lower Extremity Computed Radiogr aphy 04/27/2024 2:54 AM MILANESE KNITTING MACHINE OPERATOR Impressions 04/27/2024 7:49 AM MILANESE KNITTING MACHINE OPERATOR IMPRESSION: Joint effusion without evidence of acute fracture or dislocation. Tricompartmental osteoarthritis. DICTATION LOCATION: [address] Narrative 04/27/2024 7:49 AM MILANESE KNITTING MACHINE OPERATOR EXAMINATION: XR KNEE 3 VW RIGHT DATE: [...] or dislocation. Tricompartmental osteoarthritis. DICTATION LOCATION: Location [address] [place] [address] Tobias Holden MD DIAGNOSTIC IMAGING ORDERABLES Final Result * XR KNEE 3 VW LEFT (04/27/2024 2:54 AM MILANESE KNITTING MACHINE OPERATOR) Anatomical Region Laterality Modality Lower Extremity Computed Radiogr aphy 04/27/2024 2:54 AM MILANESE KNITTING MACHINE OPERATOR Impressions 04/27/2024 7:47 AM MILANESE KNITTING MACHINE OPERATOR IMPRESSION: 1. Advanced tricompartmental degenerative changes. No acute osseous abnormality identified. DICTATION LOCATION: Location [address] [place] [address] Narrative 04/27/2024 7:47 AM MILANESE KNITTING MACHINE OPERATOR XR KNEE 3 VW LEFT DATE: 04/27/2024 [...] acute osseous abnormality identified. DICTATION LOCATION: Location 2 - [facility] Tobias Holden MD DIAGNOSTIC IMAGING ORDERABLES Final Result * XR CHEST PA OR AP 1 VW (04/27/2024 2:54 AM MILANESE KNITTING MACHINE OPERATOR) Anatomical Region Laterality Modality Chest Computed Radiogr aphy 04/27/2024 2:54 AM MILANESE KNITTING MACHINE OPERATOR Impressions 04/27/2024 7:47 AM MILANESE KNITTING MACHINE OPERATOR IMPRESSION: Clear lungs. DICTATION LOCATION: Location [address] [place] [address] Narrative 04/27/2024 7:47 AM MILANESE KNITTING MACHINE OPERATOR EXAMINATION: XR CHEST PA OR AP 1 [...] portable technique. IMPRESSION: Clear lungs. DICTATION LOCATION: Location [address] [place] [address] Tobias Holden MD DIAGNOSTIC IMAGING ORDERABLES Final Result * VERIFICATION BLOOD GROUP (04/27/2024 2:21 AM MILANESE KNITTING MACHINE OPERATOR) ABO GROUP B 04/27/2024 7:43 AM MILANESE KNITTING MACHINE OPERATOR [facility] [facility] -- [facility] RH (D) TYPE Positive 04/27/2024 7:43 AM MILANESE KNITTING MACHINE OPERATOR [facility] Blood Venipuncture / Unknown 04/27/2024 2:21 AM MILANESE KNITTING MACHINE OPERATOR 04/27/2024 7:01 AM MILANESE KNITTING MACHINE OPERATOR Daksha Keith MD BLOOD BANK ORDERABLES Final Result [employer] [facility] CLIA# [id number] [address] [place] [address] * (ABNORMAL) CBC WITH DIFFERENTIAL (04/27/2024 2:21 AM MILANESE KNITTING MACHINE OPERATOR) Only the most recent of3 resultswithin the time period is included. WBC 6.1 4.0 - 9.8 K/uL 04/27/2024 2:54 AM MILANESE KNITTING MACHINE OPERATOR [facility] [facility] - [facility] RBC 3.73(L) 3.90 - 4.90 M/uL 04/27/2024 2:54 AM MILANESE KNITTING MACHINE OPERATOR [facility] [facility] HEMOGLOBIN 10.2(L) 11.8 - 14.8 g/dL 04/27/2024 2:54 AM MILANESE KNITTING MACHINE OPERATOR [facility] [facility] - [facility] HEMATOCRIT 33.3(L) 35.5 - 44.0 % 04/27/2024 2:54 AM MILANESE KNITTING MACHINE OPERATOR [employer] [facility] - [facility] MCV 89.3 82.0 - 99.0 fL 04/27/2024 2:54 AM MILANESE KNITTING MACHINE OPERATOR [employer] [facility] MCH 27.3 27.2 - 32.6 pg 04/27/2024 2:54 AM MILANESE KNITTING MACHINE OPERATOR [facility] [facility] - [facility] MCHC 30.6(L) 31.5 - 35.5 g/dL 04/27/2024 2:54 AM MILANESE KNITTING MACHINE OPERATOR [employer] [facility] - [facility] RDW 16.4(H) 11.5 - 14.5 % 04/27/2024 2:54 AM MILANESE KNITTING MACHINE OPERATOR [employer] [facility] RDW-STDEV 53.3(H) 37.1 - 48.7 fL 04/27/2024 2:54 AM MILANESE KNITTING MACHINE OPERATOR [employer] [facility] PLATELETS 136(L) 140 - 350 K/uL 04/27/2024 2:54 AM MILANESE KNITTING MACHINE OPERATOR [facility] [facility] [facility] MPV 11.6 9.3 - 12.4 fL 04/27/2024 2:54 AM MILANESE KNITTING MACHINE OPERATOR [facility] [facility] NEUTROPHILS 63 % 04/27/2024 2:54 AM MILANESE KNITTING MACHINE OPERATOR [employer] [facility] LYMPHOCYTES 25 % 04/27/2024 2:54 AM MILANESE KNITTING MACHINE OPERATOR [facility] MONOCYTES 8 % 04/27/2024 2:54 AM [facility] EOSINOPHILS 3 % 04/27/2024 2:54 AM [facility] BASOPHILS 0 % 04/27/2024 2:54 AM [facility] IMMATURE GRANULOCYTES 1 % 04/27/2024 2:54 AM [facility] Comment:IG (Immature Granulo cyte) count includes Metamyelocytes, Myelocytes, and Promyelocytes NEUTROPHIL ABSOLUTE 3.83 1.90 - 7.00 K/uL 04/27/2024 2:54 AM [facility] [employer] [facility] LYMPHOCYTE ABSOLUTE 1.51 0.70 - 4.50 K/uL 04/27/2024 2:54 AM [facility]. [place] MONOCYTE ABSOLUTE 0.51 0.10 - 1.30 K/uL 04/27/2024 2:54 AM [facility] EOSINOPHIL ABSOLUTE 0.20 0.00 - 0.70 K/uL 04/27/2024 2:54 AM [facility] BASOPHILS ABSOLUTE 0.02 0.00 - 0.20 K/uL 04/27/2024 2:54 AM [facility] - . [facility] IMMATURE GRANULOCYTES ABSOLUTE 0.04(H) 0.00 - 0.03 K/uL 04/27/2024 2:54 AM [facility] Blood Venipuncture / Unknown 04/27/2024 2:21 AM MILANESE KNITTING MACHINE OPERATOR 04/27/2024 2:27 AM [facility] Tobias Holden MD HEMATOLOGY ORDERABLES Final R [id number] 5 [facility] [facility] [address] [place] [address] * PTT (04/27/2024 2:21 AM MILANESE KNITTING MACHINE OPERATOR) PTT 33.3 24.4 - 36.4 seconds 04/27/2024 3:15 AM [facility] [employer] [facility] Comment: PTT Therapeutic Range: Heparin Level PTT (seconds) <0.10 units/mL <55.8 0.10 - 0.30 units/mL 55.8 - 74.3 0.30 - 0.70 units/mL* 74.3 - 111.2* 0.70 - 1.00 units/mL 111.2 - 138.9 *corresponds to therapeutic range for unfractionated heparin Blood Venipuncture / Unknown 04/27/2024 2:21 AM MILANESE KNITTING MACHINE OPERATOR 04/27/2024 2:27 AM MILANESE KNITTING MACHINE OPERATOR Tobias Holden MD HEMATOLOGY ORDERABLES Final R esult [facility]# [id number] [address] [place] [address] * PROTIME-INR (04/27/2024 2:21 AM MILANESE KNITTING MACHINE OPERATOR) PROTIME 13.4 12.7 - 15.1 Seconds 04/27/2024 3:15 AM MILANESE KNITTING MACHINE OPERATOR [facility] INR 1.0 0.9 - 1.1 04/27/2024 3:15 AM MILANESE KNITTING MACHINE OPERATOR [facility] Blood Venipuncture / Unknown 04/27/2024 2:21 AM MILANESE KNITTING MACHINE OPERATOR 04/27/2024 2:27 AM MILANESE KNITTING MACHINE OPERATOR Narrative [facility] - 04/27/2024 3:15 AM MILANESE KNITTING MACHINE OPERATOR INR Therapeutic Range: Adult: 2.0 - 3.0 for pulmonary embolism or prophylaxis against venous thrombosis or systemic embolization. 2.0 - 3.0 for patients with tissue heart valves. 2.5 - 3.5 for patients with mechanical heart valves or post OR. Pediatric (12 years and under): 1.5 - 3.0 Although the target range in children is not well established, INR values of 1.5 - 3.0 are recommended for most patients. Higher values have been used in children with prosthetic cardiac valves and hereditary clotting disorders. (<3 days) therapeutic ranges have not been established. Tobias Holden MD HEMATOLOGY ORDERABLES Final R esult [employer] [facility]ORY SERVICES - [facility]# [id number] [address] [place] [address] * (ABNORMAL) COMPREHENSIVE METABOLIC PANEL (04/27/2024 2:21 AM MILANESE KNITTING MACHINE OPERATOR) SODIUM 134(L) 136 - 145 mmol/L 04/27/2024 3:30 AM [facility] [employer] [facility]ATORY SERVICES - [facility] POTASSIUM 4.4 3.5 - 5.0 mmol/L 04/27/2024 3:30 AM [facility] [employer] LABORATORY [facility] CHLORIDE 101 98 - 107 mmol/L 04/27/2024 3:30 AM [facility] [employer] LAB[facility]ATORY [facility] [place] CO2 22 22 - 29 mmol/L 04/27/2024 3:30 AM [facility] [employer] LABORATORY [facility] CALCIUM 8.9 8.6 - 10.2 mg/dL 04/27/2024 3:30 AM [facility] [employer] [facility] BUN 43(H) 8 - 23 mg/dL 04/27/2024 3:30 AM [facility] [employer] LABORATORY [facility] CREATININE 1.49(H) 0.51 - 0.95 mg/dL 04/27/2024 3:30 AM [facility] [employer] LABORATORY [facility] Comment:The GFR result is no t clinically significant on patients <18 or >70 years of age. GLUCOSE 370(H) 74 - 99 mg/dL 04/27/2024 3:30 AM [facility] [employer] LABORATORY SERVICES - . [facility] TOTAL PROTEIN 7.4 6.7 - 8.6 g/dL 04/27/2024 3:30 AM [facility] [employer] [facility] ALBUMIN 3.4(L) 3.5 - 5.2 g/dL 04/27/2024 3:30 AM [facility] [employer] LABORATORY [facility] BILIRUBIN TOTAL 0.2 0.2 - 1.1 mg/dL 04/27/2024 3:30 AM [facility] [employer] LABORATORY [facility] ALKALINE PHOSPHATASE 188(H) 35 - 104 U/L 04/27/2024 3:30 AM [facility] [employer] LABORATORY [facility] AST 40(H) <33 U/L 04/27/2024 3:30 AM MILANESE KNITTING MACHINE OPERATOR [facility] ALT 21 <34 U/L 04/27/2024 3:30 AM [facility] GFR 37 mL/min/1.7 3 sq meter 04/27/2024 3:30 AM MILANESE KNITTING MACHINE OPERATOR [facility] Comment:eGFR calculated with 2020 CKD-EPI equation. Vegetarian diet, extremely high or low muscle mass, and may affect results. Cystatin C with Glomerular Filtration Rate is a suitable alternative for these patients. ANION GAP 11 8 - 16 mmol/L 04/27/2024 3:30 AM MILANESE KNITTING MACHINE OPERATOR [facility] Blood Venipuncture / Unknown 04/27/2024 2:21 AM MILANESE KNITTING MACHINE OPERATOR 04/27/2024 2:27 AM MILANESE KNITTING MACHINE OPERATOR Narrative [facility] - 04/27/2024 3:30 AM MILANESE KNITTING MACHINE OPERATOR Samples containing indocyanine green cause interferences on Total and/or Direct Bilirubin and must not be measured. Tobias Holden MD CHEMISTRY ORDERABLES Final Re sult [facility]# [id number] 5 [place] [address] * BASIC METABOLIC PANEL (03/27/2024 4:07 PM MILANESE KNITTING MACHINE OPERATOR) Only the most recent of2 resultswithin the time period is included. Blood Ray Richards MD CHEMISTRY ORDERABLES Final Resu lt * IRON PANEL (03/27/2024 11:52 AM [employer]AN[employer] KNITTING MACHINE OPERATOR) Blood Ray Richards MD CHEMISTRY ORDERABLES Final Resu lt * (ABNORMAL) IRON, TIBC, AND PERCENT SATURATION (03/26/2024 1:21 PM MILANESE KNITTING MACHINE OPERATOR) IRON 42(L) 45 - 160 mcg/dL [facility] TIBC 318 250 - 450 mcg/dL (calc) [facility] IRON % SATURATION 13(L) 16 - 45 % (calc) [facility] Comment: Test Performed at: [facility] [address] Tres Lund MD 03/26/2024 1:21 PM MILANESE KNITTING MACHINE OPERATOR 03/26/2024 1:22 PM MILANESE KNITTING MACHINE OPERATOR us Ray Richards MD CHEMISTRY ORDERABLES Final Resu lt [facility] [phone] [facility] [employer] [address] * FERRITIN (03/26/2024 1:21 PM MILANESE KNITTING MACHINE OPERATOR) FERRITIN 33 16 - 288 ng/mL [facility] Comment: Test Performed at: [facility] [employer] [address] Tres Lund MD Blood 03/26/2024 1:21 PM MILANESE KNITTING MACHINE OPERATOR 03/26/2024 1:22 PM MILANESE KNITTING MACHINE OPERATOR us Ray Richards MD CHEMISTRY ORDERABLES Final Resu lt [facility] [phone] [facility] [employer] [phone] from Last 3 Months Insurance MEDICARE PART A AND B BS BLUE ACCESS/TRUE BLUE PPO [employer] HMO OPEN ACCESS [facility] Address: [address] [address] [facility] BLUE ACCESS/TRUE BLUE PPO MEDICARE PART A AND B Care Teams Metalizing Supervisor Relationship Specialty Start Date End Date Charles Armendariz DO [address] [address] PCP - General Internal Medicine 11/04/22
--- OUTSIDE RECORDS SUMMARY | 2024-06-20 15:13 | XMS_ITS | Encounter Summary ---
Author Organization [facility] Address [address] [place] [address] Care Team Providers Care Dust Collector Treater Name Role Phone Charles Armendariz DO Primary [...] on file Legal Sex Female 3:40 AM UNDERWRITING DIRECTOR Gender Identity Not on file Sexual Orientation Not on file documented as of this encounter Plan of Treatment Upcoming Encounters Date Type Department Care Team (Late st Contact Info) Description 07/31/2024 9:30 AM CDT Office Visit [facility] Oncology and Hematology - Kevin [address] [facility] [address] [place] [address] Ray Richards MD [address] [facility] [address] [place] [address] documented as of this encounter Visit Diagnoses Diagnosis Unspecified hearing loss documented in this encounter Care Teams Dust Collector Treater Relationship Specialty Start Date End Date Charles Armendariz DO [address] [facility] [address] [place] [address] PCP - General Internal Medicine 11/04/22 documented as of this encounter
--- OUTSIDE RECORDS SUMMARY | 2024-06-20 15:13 | XMS_ITS | Data Portability ---
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 Assessment Encounter Date Assessment Date Assessment LastModified [...] Go To The Location Of Their Choice, [id number] 3 06:14:20 urinalys is, dipstick 2022 023 CHRIS In-Office Order, Internal Use Only DO Not Attach Compendium DO Not Attach Compendium, Do Not Delete/merge, [id number] 3 10:02:27 culture, urine 2022 023 CHRIS [facility] (Centralized Electronic Ordering - All Locations), Patient Can Go To The Location Of Their Choice, [address] 3 06:14:08 urinalys is, dipstick 2019 myranda In-Office Order, Internal Use Only DO Not Attach Compendium DO Not Attach Compendium, Do Not Delete/merge, [id number] 0 15:19:43 culture, urine 2019 [facility], 2022 Kang [place], [address], [address], 0 06:12:47 bacteria l vaginosi s panel, vaginal 2019 LINDSAY [facility] (Centralized Electronic Ordering - All Locations), Patient Can Go To The Location Of Their Choice, [address] 0 06:12:46 culture, vaginal/ rectal, streptoc occus group B 2019 LINDSAY [facility] ([facility]), Patient Can Go To The Location Of Their Choice, [address] 0 06:12:47 Referral None recorded . Procedures None recorded . Surgeries None recorded . Imaging None recorded . Medication Orders benzonat ate 200 mg capsule 2023 024 LINDSAY [facility][id number], [address], [place], [place], [id number], 4 09:38:18 Zithroma x Z-Kirt 250 mg tablet 2023 024 LINDSAY [facility] #89507, [address], [place], [place], [id number], 4 09:38:17 cetirizi ne 10 mg tablet 2023 024 [facility] #14784, [address] [place], [place], [id number], 4 09:38:18 estradio l 0.01% (0.1 mg/gram) vaginal cream 2022 024 [facility] #89681, [address] [place], [place], [id number], 4 09:03:10 estradio l 0.01% (0.1 mg/gram) vaginal cream 2022 023 [facility] #, [address] [place], [place], [id number], 4 09:01:41 estradio l 0.01% (0.1 mg/gram) vaginal cream 2022 023 [facility] #24164, [address] [place], [place], [id number], 4 09:01:41 Premarin 0.625 mg/gram vaginal cream 2019 020 [facility], [address] [place] [address], [id number], 3 13:59:43 ciproflo xacin 250 mg tablet 2019 020 [facility], [address] [place] [address], [id number], 3 14:21:14 Patient TargetsNo targets recorded. Patient Instructions Encounter Date Encounter Id Patient Instructions Last Modified By Organization Details Last Modified Time 12/05/2019 [id number] influenza (flu) vaccine: care instructions myranad Not available 12/05/2019 15:19:43 atrophic vaginitis: care instructions [email or web address] Not available 12/05/2019 13:29:10 05/31/2022 [id number] atrophic vaginitis: care instructions Not available 05/31/2022 09:44:32 Urge Incontinence: Care Instructions Not available 05/31/2022 09:44:18 Stress Incontinence: Care Instructions Not available 05/31/2022 09:44:18 kegel exercises: care instructions Not available 05/31/2022 09:44:18 bladder training: care instructions Not available 05/31/2022 09:44:18 A healthy lifestyle: care instructions Not available 05/31/2022 09:12:13 09/09/2022 [id number] atrophic vaginitis: care instructions Not available 09/09/2022 15:50:24 A healthy lifestyle: care instructions Not available 09/09/2022 15:50:24 12/09/2022 [id number] atrophic vaginitis: care instructions Not available 12/09/2022 15:01:23 A healthy lifestyle: care instructions Not available 12/09/2022 15:01:23 04/17/2023 [id number] body mass index: care instructions [email or web address] Not available 04/17/2023 09:38:09 learning about healthy weight [email or web address] Not available 04/17/2023 09:38:09 upper respiratory infection (cold): care instructions [email or web address] Not available 04/17/2023 09:38:09 Reason for Referral None Reported. Results Created Date Observation Date Name Description Value Unit Range Abnormal Flag Note LastModifiedBy Organization Detail LastModifiedTime 12/05/19 20 12/05/2019 urina lysis , dipst ick Leukocytes Negati ve Not Available In-Office Order Internal Use Only DO Not Attach Compendium DO Not Attach Compendium, Do Not Delete/merge, [id number] 12/05/2019 12:30:15 12/05/19 20 12/05/2019 urina lysis , dipst ick Nitrite positi ve Not Available In-Office Order Internal Use Only DO Not Attach Compendium DO Not Attach Compendium, Do Not Delete/merge, [id number] 12/05/2019 12:30:15 12/05/19 20 12/05/2019 urina lysis , dipst ick Urobilinogen .2 Not Available In-Of fice Order Internal Use Only DO Not Attach Compendium DO Not Attach Compendium, Do Not Delete/merge, [id number] 12/05/2019 12:30:15 12/05/19 20 12/05/2019 urina lysis , dipst ick Protein 300 Not Available In-Office Order Internal Use Only DO Not Attach Compendium DO Not Attach Compendium, Do Not Delete/merge, [id number] 12/05/2019 12:30:15 12/05/19 20 12/05/2019 urina lysis [...] 12/05/2019 urina lysis , dipst ick Specific [facility] [place] 1.030 Not Available In-Off ice Order Internal [...] DO Not Attach Compendium, Do Not Delete/merge, [id number] 12/05/2019 12:30:15 12/05/19 20 12/05/2019 urina lysis , dipst ick Glucose Negati ve Not Available In-Office Order Internal Use Only DO Not Attach Compendium DO Not Attach Compendium, Do Not Delete/merge, [id number] 12/05/2019 12:30:15 12/05/1912/07/2019 bacte rial vagin osis panel , vagin al trich vag by ALBERTO Negati ve negati ve Not Available [facility] ([facility]) [address] [place], [address], 12/11/2019 06:12:46 12/05/1912/07/2019 bacte rial vagin osis panel , vagin al chlamydia trachomatis, ALBERTO Negati ve negati ve Not Available [facility] ([facility]) [address] [place], [address], 12/11/2019 06:12:46 12/05/1912/07/2019 bacte rial vagin osis panel , vagin al neisseria gonorrhoeae, ALBERTO Negati ve negati ve Not Available [facility] ([facility]) [address] [place], [address], 12/11/2019 06:12:46 12/05/1912/08/2019 bacte rial vagin osis panel , vagin al hsv 1 ALBERTO Negati ve negati ve Not Available [facility] ([facility]) [address] [place], [address], 12/11/2019 06:12:46 12/05/1912/08/2019 bacte rial vagin osis panel , vagin al hsv 2 ALBERTO Negati ve negati ve Not Available [facility] ([facility]) [address] [place], [address], 12/11/2019 06:12:46 12/05/1912/11/2019 bacte rial vagin osis panel , vagin al atopobium vaginae Low - 0 score Not Available [facility] ([facility]) [address] [place], [address], 12/11/2019 06:12:46 12/05/1912/11/2019 bacte rial vagin osis panel , vagin al bvab 2 Low - 0 score Not Available [facility] ([facility]) [address] [place], [address], 12/11/2019 06:12:46 12/05/1912/11/2019 bacte rial vagin osis [...] e zachary cteri stics deter mined by [employer]. It has not been clear ed or appro cristian by the Food and Drug Admin istra tion. The FDA has deter mined that such clear ance or appro daniel is not neces radha. Not Available [facility] ([facility]) [address] [place], [address], 12/11/2019 06:12:46 12/05/1912/11/2019 bacte rial vagin osis panel , vagin al janice albicans, ALBERTO Negati ve negati ve Not Available [facility] ([facility]) [address] [place], [address], 12/11/2019 06:12:46 12/05/1912/11/2019 bacte rial vagin osis panel , vagin al janice glabrata, ALBERTO Negati ve negati ve Not Available [facility] ([facility]) [address] [place], [address], 12/11/2019 06:12:46 12/05/1912/07/2019 cultu re, vagin al/re [...] n is noted . Not Available [facility] ([facility]) [address] [facility], [place], [address], 12/11/2019 06:12:47 12/05/1912/08/2019 cultu re, urine urine culture, routine Final report abnormal Not Available [facility] ([facility]) [address] [facility], [place], [address], 12/11/2019 06:12:47 12/05/1912/08/2019 cultu re, urine result [...] Prote us mirab ilis. Not Available [facility] ([facility]) [address] [facility], [place], [address], 12/11/2019 06:12:47 12/05/1912/08/2019 cultu re, urine antimicrobia [...] thopr im/Rankin lfa S Not Available [facility] ([facility]) [address] [facility], [place], [address], 12/11/2019 06:12:47 06/01/1906/02/2022 URINE CULTU RE, ROUTI NE urine culture, routine FINAL REPORT Not Available [facility] ([facility]) [address] [facility], [place], [address], 06/02/2022 06:14:07 06/01/1906/02/2022 URINE CULTU RE, ROUTI NE result 1 COMMEN T Cultu re shows less than 10,00 0 colon y formi ng units of bacte edy per allison liter of urine . This colon y count is not gener ally consi dered to be clini samra signi will t. Not Available [facility] ([facility]) [address] [place], [address], 06/02/2022 06:14:07 06/01/19 23 06/01/2022 NUSWA B BV AND BRIANNA DA, ALBERTO atopobium vaginae LOW - 0 score Not Available [facility] ([facility]) [address] [facility], [place], [address], 06/02/2022 06:14:19 06/01/19 23 06/01/2022 NUSWA B BV AND BRIANNA DA, ALBERTO bvab 2 LOW - 0 score Not Available [facility] ([facility]) [address] [place], [address], 06/02/2022 06:14:19 06/01/19 23 06/01/2022 NUSWA B [...] Drug Admin istra tion. Not Available [facility] ([facility]) [address] [facility], [place], [address], 06/02/2022 06:14:19 06/01/19 23 06/01/2022 NUSWA B BV AND BRIANNA DA, ALBERTO janice albicans, ALBERTO NEGATI VE negati ve Not Available [facility] ([facility]) [address], [place], [address], 06/02/2022 06:14:19 06/01/19 23 06/01/2022 NUSWA B BV AND BRIANNA DA, ALBERTO janice glabrata, ALBERTO NEGATI VE negati ve Not Available [facility] ([facility]) [address] [facility], [place], [address], 06/02/2022 06:14:19 06/01/19 23 05/31/2022 urina lysis [...] 05/31/2022 urina lysis , dipst ick Specific [facility] [place] 1.025 Not Available In-Off ice Order Internal [...] respiratory culture Final report Not Available [facility] ([facility]) [address] [facility], [place], [address], 09/13/2022 07:14:00 09/10/19 23 09/13/2022 UPPER RESPI RATOR Y CULTU RE result 1 Commen t Routi ne respi rator y jason Not Available [facility] ([facility]) [address] [facility], [place], [address], 09/13/2022 07:14:00 09/10/19 23 09/14/2022 PATHO LOGY REPOR T . Commen t Mater ial submi tted: . PART A: vagin a - VAGIN AL BIOPS Y PART B: vagin a - VAGIN AL BIOPS Y #2 Not Available [facility] ([facility]) [address] [facility], [place], [address], 09/14/2022 17:10:11 09/10/19 23 09/14/2022 PATHO LOGY [...] NT FOLLO W-UP ARE RECOM JANETTE Knight [facility] 09/14 1042 Local Not Available [facility] ([facility]) [address] [facility], [place], [address], 09/14/2022 17:10:11 09/10/19 23 09/14/2022 PATHO LOGY REPOR T . Commen t Elect margarita caba d: . Onel awan MD, Patho logis t Not Available [facility] ([facility]) [address] [facility], [place], [address], 09/14/2022 17:10:11 09/10/19 23 09/14/2022 PATHO LOGY [...] FELIPE 09/12 1054 Local Not Available [facility] ([facility]) [address] [place], [address], 09/14/2022 17:10:11 09/10/19 23 09/14/2022 PATHO LOGY REPOR T . Commen t Patho logis t provi ded ICD-1 0: L82.1 Not Available [facility] ([facility]) [address] [place], [address], 09/14/2022 17:10:11 09/10/19 23 09/14/2022 PATHO LOGY REPOR T . Commen t CPT . 62297 1, 39133 2 Not Available [facility] ([facility]) [address] [place], [address], 09/14/2022 17:10:11 10/08/1910/07/2020 MAMMO , scree guerda, bilat eral No observ ation record ed. [email or web address] [facility] [address] [place], [address], 11/19/2020 12:35:37 12/01/1911/30/2022 MAMMO , scree guerda, bilat eral No observ ation record ed. [address], [place], [address], 12/05/2022 10:12:44 12/01/1911/30/2022 MAMMO , scree guerda, bilat eral No observ ation record ed. [facility] [address] [place], [address], 12/01/2022 15:59:09 Result Notes None recorded. Problems Name Problem SNOMED Code Status Onset Date Resolution Date Notes Provider Name and Address Organization Details Recorded Time Morbid obesity 798148899 Active 2019 Eduardo De Los SantosKaya null, [place] - [facility] 0 15:34:32 Hypothyroid ism 05560339 Active 2019 Eduardo De [place] [facility] 0 15:55:57 Hypertensiv e disorder 44086789 Active 2019 Eduardo De [place] [facility] 0 15:56:02 Diabetes mellitus 31504136 Active 2019 Eduardo [place] [facility] 0 15:56:06 Hyperlipide silva 61125029 Active 2019 Eduardo [place] [facility] 0 15:56:18 Rheumatoid arthritis 63904024 Active 2022 FRANCISCO J SERRANO Attn: Salvador chavez,[address], [place], [address], [place] [facility] 3 09:01:26 Menopause present 459194260 Active 2022 FRANCISCO J SERRANO Attn: Salvador chavez,[address] [place], [address], [place] [facility] 3 09:03:40 Recurrent urinary tract infection 848307629 Active 2022 FRANCISCO J SERRANO Attn: Salvador chavez,[address] [place], [address], [place] [facility] 3 09:03:42 Liver enzymes level above reference range 648019190 Active 2022 FRANCISCO J SERRANO Attn: Salvador chavez,[address] [place], [address], [place] [facility] 3 09:04:52 Splenic hematoma 677739907 Active 2022 FRANCISCO J SERRANO Attn: Salvador chavez,[address] [place], [address], [place] [facility] 3 09:05:02 Partial thickness rotator cuff tear 717730394 Active 2022 FRANCISCO J SERRANO Attn: Salvador chavez,[address] [place], [address], [place] [facility] 3 09:05:19 Primary fibromyalgi a syndrome 44693272 Active 2022 FRANCISCO J SERRANO Attn: Salvador chavez,[address] [place], [address], [place] [facility] 3 09:05:32 Bilateral shoulder osteoarthri tis 5516365784406 08 Active 2022 FRANCISCO J SERRANO Attn: Salvador chavez,[address] [place], [address], [place] [facility] 3 09:05:58 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 FRANCISCO J SERRANO Attn: Salvador chavez,[address] [place], [address], [place] [facility] 3 09:06:06 Gastroesoph ageal reflux disease without esophagitis 637570588 Active 2022 FRANCISCO J SERRANO Attn: Salvador scott,[address] [facility], [place], [address], [place] [facility] 3 09:06:14 Obstructive sleep apnea syndrome 36448763 Active 2022 FRANCISCO J SERRANO Attn: Salvador chavez,[address] [facility], [place], [address], [place] [facility] 3 09:06:37 Gout 36982988 Active 2022 FRANCISCO J SERRANO Attn: Salvador chavez,[address] [place], [address] [facility] 3 09:06:45 Anxiety 12378249 Active 2022 FRANCISCO J SERRANO Attn: Salvador chavez,[address] [place], [address], [place] [facility] 3 09:06:51 Major depressive disorder 290334385 Active 2022 FRANCISCO J SERRANO Attn: Salvador chavez,[address] [place], [address] [facility] 3 09:06:58 Amputated big toe 619602897 Active 2022 FRANCISCO J SERRANO Attn: Salvador chavez,[address] [place], [address], [place] [facility] 3 09:07:44 Diabetic peripheral neuropathy 809303552 Active 2022 FRANCISCO J SERRANO Attn: Salvador chavez,[address] [place], [address], [place] [facility] 3 09:07:53 Problem Notes None recorded. Procedures Surgical History Date Name Laterality Status Provider Name and Address Organization Details Recorded Time 09/10/19 23 Shave Biopsy completed FRANCISCO J SERRANO Attn: Accounting,[address], [place], [address], [facility] 09/09/2022 16:09:52 05/01/19 20 Most Recent Mammogram completed Pascale Sherwood MA [facility] 12/05/2019 12:29:20 07/29/19 19 Orthopedic Surgery completed Rosario Corley MA [facility] 04/11/2019 15:29:51 06/06/19 18 Date of Last Pap Smear completed Rosario Corley MA [facility] 04/11/2019 15:26:57 02/27/19 15 Orthopedic Surgery completed Debra Magallanes MA [facility] 06/09/2014 11:55:20 02/27/19 13 Orthopedic Surgery completed Debra Magallanes MA [facility] 06/09/2014 11:55:20 02/27/19 11 Other completed Debra Magallanes MA [facility] 06/09/2014 11:55:20 02/27/19 11 Orthopedic Surgery completed Debra Magallanes MA [facility] 06/09/2014 11:55:20 02/27/19 08 Appendectomy completed Debra Magallanes MA [facility] 06/09/2014 11:55:20 02/27/19 05 Other completed Debra Magallanes MA [facility] 06/09/2014 11:55:20 Imaging Results Imaging Date Name Status LastModified by Organiz ation Details LastModified Time 10/07/2020 MAMMO, screening, bilateral completed [email or web address] [place] [address] [address] [place], [address], 11/19/2020 12:35:37 11/30/2022 MAMMO, screening, bilateral completed [facility] [address] [place] [address] [place], [address], 12/05/2022 10:12:44 11/30/2022 MAMMO, screening, bilateral completed [facility] [address] [place], [address], 12/01/2022 15:59:09 Procedure Notes None recorded. Medical Equipment None Reported. Allergies Allergen ID Allergen Name Allergen Category Reaction Reaction Severity Criticality Documentation Date Start Date Code Code System Note Provider Name and Address Organization Details Recorded Time 645532 vancomyci n medicatio n hives moderate Not available 12/05/2019 10258 RxNorm Not Available Not Available Not Available 713356 Betadine medicatio n rash mild Not available 12/05/2019 71934 0 RxNorm Not Available Not Available Not Available 453435 lisinopri l medicatio n cough mild Not available 12/05/2019 04243 RxNorm Not Available Not Available Not Available [...] Updated DateTime 12/05/2019 160.02 cm 40.4 kg/m2 823713.0 6 g 120 mm[Hg] 68 mm[Hg] Pascale Sherwood MA [facility] 0 12:33:59 Date Recorded Body height Body mass index (BMI) Body weight Heart rate Body temperature Oxygen saturation Oxygen saturation in Arterial blood by Pulse oximetry Systolic blood pressure Diastolic blood pressure Provider Name and Address Organization Details Last Updated DateTime 3 160.02 cm 40.1 kg/m2 293295. 28 g 84 /min 98.9 [degF] 94 % 94 % 116 mm[Hg] 70 mm[Hg] Pascale Beltran MA [facility] 3 08:44:28 Date Recorded Body height Body mass index (BMI) Body weight Heart rate Oxygen saturation Oxygen saturation in Arterial blood by Pulse oximetry Systolic blood pressure Diastolic blood pressure Provider Name and Address Organization Details Last Updated DateTime 3 160.02 cm 40.2 kg/m2 440058. 47 g 92 /min 94 % 94 % 128 mm[Hg] 70 mm[Hg] La Monterroso MA [facility] 3 14:37:58 Date Recorded Body height Body mass index (BMI) Body weight Body temperature Oxygen saturation Oxygen saturation in Arterial blood by Pulse oximetry Heart rate Systolic blood pressure Diastolic blood pressure Provider Name and Address Organization Details Last Updated DateTime 3 160.02 cm 40.5 kg/m2 259430. 5 g 98.5 [degF] 95 % 95 % 83 /min 126 mm[Hg] 72 mm[Hg] Elayneciara Fernandez [place] - [facility] 3 14:30:21 Date Recorded Body height Body mass index (BMI) Body weight Body temperature Oxygen saturation Oxygen saturation in Arterial blood by Pulse oximetry Heart rate Systolic blood pressure Diastolic blood pressure Provider Name and Address Organization Details Last Updated DateTime 4 160.02 cm 37.4 kg/m2 08528.4 2 g 98.5 [degF] 98 % 98 % 100 /min 136 mm[Hg] 70 mm[Hg] Elayne Fernandez [place] [facility] 4 09:16:39 Social History Question Answer Notes LastModified by Organizat ion Details LastModified Time Tobacco Smoking Status Former Smoker 04/11/2019 pt states stopped smoking 1997 Rosario Corley MA [facility], [facility] 04/11/2019 15:28:20 Do You Have An [...] History Condition Response Coronary Artery Disease N Kidney Cyst N Blood Diseases N Hyperthyroidism N Blood disorders N Blood Transfusion N MRSA N Emphysema N Depression N COPD N Blood Clots N Pneumonia N Premature N Peripheral Arterial Disease N Edema N TIA N Headaches/Migraines N Anxiety Disorder N Obesity N Polyps N Infertility N Acid Reflux (GERD) N Hematuria N Stroke N Neck Injury N Polio N Hospital Admission other than N Neurologic Disorder N Other Sleep Disorders N Rheumatoid Arthritis N Abdominal Aortic Aneurysm Repair N Kidney Disease N Heart Conditions N Heart Disease/Heart Problems N Hospitalizations N Brain Tumors N Acne N Skin Problems N Eating Disorder N Meningitis N Constipation N Tuberculosis N Cerebral Palsy N Myocardial Infarction N Asthma N Substance Abuse N Peripheral Vascular Disease N Vertigo N Sleep Disorder N Cirrhosis N Pulmonary Embolism N Chicken Pox N Hematologic Disease N Flomax Use Past or Present N Anxiety/Depression N Thyroid Disease N Colon Cancer N Lung Disease N Glaucoma N Developmental or Behavioral Disorders N Bipolar N Pacemaker N Diverticulitis/Diverticulosis N Orthopedic Problems N Anesthesia Complications N Orthotics N Head Injury/Concussion N Congenital Anomalies N Hawk Bite N Chronic Kidney Disease N Endometriosis N Liver Disease N Schizophrenia N Dialysis N Speech Delay N Chronic Obstructive Pulmonary Disease N Parkinson's Disease N Thyroid Problems N GI Problems N Developmental Delay N Anemia N Multiple Sclerosis N Immune System Disorder N Colon Polyps N Heart Attack (HI) N Diabetes N Cardiomyopathy N Blood Transfusions N Heart Problems/Murmur N Eye Trauma N Congestive Heart Failure (CHF) N Valvular Heart Disease N Hyperlipidemia N Double Vision N Abuse/Domestic Violence N Hepatitis B N Lupus Y Epilepsy/Seizures N Reflux/GERD N Aneurysm N Heart Disease N Bronchitis N Pre-Eclampsia N Hypertension N Heart Failure N Other N Gout [...] N Kidney Failure N Ocular trauma N Diverticulitis N Dementia N Sleep Apnea N Mental Problems N [...] formulation 3 completed Elayne Fernandez MA lio, [facility] 12/09/2022 14:27:44 Influenza, split virus, quadrivalent, preservative 0 completed Pascale Sherwood MA lio, [facility] 01/20/2020 17:59:24 Past Encounters Encounter ID Performer Location Encounter Start Date Encounter Closed Date Diagnosis/Indication Diagnosis SNOMED-CT Code Diagnosis ICD10 Code Diagnosis Note [id number] Eduardo Danielson ([facility]) [address] [place] [phone] 06/09/2014 10:41:57 06/09/2014 13:37:25 Gynecologic examination 06455395 Screening mammography 54189304 [id number] MIGUEL ANGEL Blackmon ([facility]) [address] [place] [id number] 06/05/2017 14:50:45 06/05/2017 16:13:49 Gynecologic examination 97823687 Z01.419 Z11.51 Screening mammography 24 460509 Z12.31 Exposure t o sexually transmissible disorder 544971293 Z20.2 [id number] Eduardo Danielson ([facility]) [address] [place] [id number] 04/11/2019 14:49:28 04/15/2019 10:24:43 Screening mammography 15474841 Z12.31 Urinary tr act infectious disease 56369092 N39.0 Morbid obesity 743395467 Z68.41 Dysfunctio n of urinary bladder 41853579 R39.89 OAB vs stress/urg e incontinen ce Menopausal syndrome 1237 06137 N95.9 [id number] Eduardo Danielson ([facility]) [address] [place] [id number] 12/05/2019 11:39:11 12/09/2019 12:25:36 Recurrent urinary tract infection 828339068 N39.0 Administra tion of influenza vaccine 48550082 Z23 Atrophic vaginitis 00835 000 N95.2 Exposure t o sexually transmissible disorder 463758074 Z20.2 [id number] FRANCISCO J SERRANO (Adult Med) [address] [place], [place] [phone] 05/31/2022 08:11:20 06/01/2022 09:41:02 Recurrent urinary tract infection 872096821 N39.0 Following with Urology for recurrent UTIs, [...] than UTI, starting tx today Menopause present [id number] 006 N95.1 WEnt through menopause around age 52, denies major issues with hot flashes, vaginal dryness (however no longer sexually active), and mood changes- discussed menopause diagnosis- likely atrophic vaginitis causing her vaginal symptoms Screening for malignant neoplasm of breast [id number] Z12.39 Last mammogram in 2021, ordered by PCP in [facility]- Call [facility] to request records- Mammogram screening this year based on records Screening for malignant neoplasm of cervix [id number] Z12.4 Last pap smear in 2017 and normal, pap smear prior to that was 05/2014 and also normal- no further pap smears needed at this time since prior pap smears normal over age of 65 Morbid obesity 846918063 E66.01 Advised decreased portion sizes, good food choices, limited eating out or fast food and eliminate soda and juice from diet. Advised physical activity daily and offered encouragem ent to continue with positive changes made so far. Depression screening 171 012311 Z13.31 PHQ 2/9 was negative in office today (0 out of 27) Increased frequency of urination 641635593 R35.0 Patient reporting x3-4 episodes of incontinen ce daily. Admits to chronic urinary frequency, urgency, stress incontinen ce and urge incontinen ce. Wears diapers daily- vaginal swab completed- provided informatio n on mixed urinary incontinen ce- consider pelvic floor PT in the future Ex-smoker 5739178 Z87.89 1 Prior history of smoking- keep up good work, continue to avoid Atrophic vaginitis 18062 000 N95.2 Presenting today with vaginal pruritus, irritation , and dryness. Atropy seen on exam- Start estradiol 0.01 % three time a week for 30 days- f/u in 3 months to check for improvemen t Non-neoplastic nevus 195 818229 I78.1 2 small skin nevi present on the left side of mons pubis, she is interested in getting them removed- plan for longer visit at next visit and will complete removal [id number] FRANCISCO J SERRANO (Adult Med) [address] [place] [address] 09/09/2022 14:06:24 09/12/2022 15:04:12 Non-neoplastic nevus [id number] I78.1 3 small skin nevi present on the left side of mons pubis, she is interested in getting them removed#1: larger lesion more superior on the mons pubis#2: two smaller lesions more inferior on mons pubis- tolerated procedure well and bleeding controlled with pressure and silver nitrate Atrophic vaginitis 58068 000 N95.2 Originally presented with vaginal pruritus, irritation , and dryness. Atrophy seen on exam- c/w estradiol 0.01 % three time a week- f/u in 3 months to check for improvemen t Menopause present 756479 006 N95.1 Went through menopause around age 52, denies major issues with hot flashes, vaginal dryness (however no longer sexually active), and mood changes- discussed menopause diagnosis- likely atrophic vaginitis causing her vaginal symptoms Screening for malignant neoplasm of breast 006046034 Z12.39 Last mammogram in 2021, ordered by PCP in [facility]- Call [facility] to request records- Mammogram screening this year based on records Screening for malignant neoplasm of cervix [id number] Z12.4 Last pap smear in 2018 and normal, pap smear prior to that was 05/2014 and also normal- no further pap smears needed at this time since prior pap smears normal over age of 65 Ex-smoker 7703639 Z87.89 1 Prior history of smoking- keep up good work, continue to avoid Depression screening 171 345943 Z13.31 PHQ 2/9 was negative in office today (0 out of 27) Morbid obesity 628165058 E66.01 Advised decreased portion sizes, good food choices, limited eating out or fast food and eliminate soda and juice from diet. Advised physical activity daily and offered encouragem ent to continue with positive changes made so far. Pain in throat 037527067 R07.0 At risk for yeast infection 2/2 DM, erythemato us on exam. Screening for malignant neoplasm of colon 509912842 Z12.11 Notes colonoscop y completed at [facility] in the last few years, will request those records [id number] FRANCISCO J SERRANO (Adult Med) [address] [place] [phone] 12/09/2022 14:13:43 12/09/2022 15:00:50 Atrophic vaginitis 52301189 N95.2 Originally presented with vaginal pruritus, irritation [...] or once weekly as tolerated Menopause present 968988 006 N95.1 Went through menopause around age 52, denies major issues with hot flashes, vaginal dryness (however no longer sexually active), and mood changes- discussed menopause diagnosis- likely atrophic vaginitis causing her vaginal symptoms- discuss DEXA at next visit Screening for malignant neoplasm of cervix 813314768 Z12.4 Last pap smear in 2018 and normal, pap smear prior to that was 05/2014 and also normal- no further pap smears needed at this time since prior pap smears normal over age of 65 Ex-smoker 2305863 Z87.89 1 Prior history of smoking- keep up good work, continue to avoid Morbid obesity 819514213 E66.01 Advised decreased portion sizes, good food choices, limited eating out or fast food and eliminate soda and juice from diet. Advised physical activity daily and offered encouragem ent to continue with positive changes made so far. Genital warts 528407184 A63.0 Biopsy results from recent skin lesion removal revealed genital warts- discussed diagnosis with patient today, has not been sexually active for years and no additional lesions present in the past or currently [id number] TIMOTEO PABON (Adult Med) [address] [place] [address] 04/17/2023 08:58:08 04/19/2023 11:56:47 Acute upper respiratory infection 64758972 J06.9 Gargle with warm salt water once [...] for cleaning the machine. Depression screening 171 538811 Z13.31 PHQ9- {{Negative * Positive Mild Mode rate Sever e}} (0 out of 27) Mental hea lth screening 392170081 Z13.39 GAD7- {{Negative * Positive Mild Mode rate Sever e}} (1 out of 21) Body mass index 30+ - obesity 673501840 Z68.37 BMI 37.4 Health Concerns Section Related Observation LastModified by Organization Detai ls LastModified Time None Recorded Concern Status LastModified by Organization Details LastModified Time None Recorded Advance Directives Directive N: Payers Encounter Date Sequence Insurance Name Policy Number Policy Puga Covered Member ID Puga Member ID Guarantor Name 12/05/2019 1 [place] [id number] Aleyda Dobbs [id number] Aleyda [place]ton 12/05/2019 2 [place] Aleyda Dobbs [id number] Aleyda Cataldo 05/31/2022 1 [place] [id number] Aleyda Dilia [id number] Aleyda Dilia 05/31/2022 2 [place] Aleyda L Dilia [id number] Aleyda Dilia 09/09/2022 1 [place] [id number] Aleyda Cataldo [id number] Aleyda Cataldo 09/09/2022 2 [place] Aleyda L Cataldo [id number] Aleyda Cataldo 12/09/2022 1 [place] [id number] Aleyda Dilia [id number] Aleyda Dilia 12/09/2022 2 [place] Aleyda L Dilia [id number] Aleyda Cataldo 04/17/2023 1 [place] [id number] Aleyda Dilia [id number] Aleyda Cataldo 04/17/2023 2 [place] Aleyda L Dilia [id number] Aleyda Cataldo Notes Date Note Type Note Provider Name and Address Organization Details Recorded Time 12/05/2019 text/html Vaginal/Vulvar ProblemReported bypatient.Associated Symptoms:no vaginal itching; no vaginal irritation; no vaginal pain; no vulvar itching/irritation; no vulvar swelling/erythema; no vulvar pain; no vulvar lesions; no pelvic pain; no dyspareunia; no dyruria; no fever; no abdominal pain 69 yo F presenting for vulvar itching x2-3 weeks. 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 She completed the course but the UTI persisted. The manager retail sales then referred her to a urologist. The urologist prescribed Macrobid. She just completed the course of Macrobid for 2 weeks. Today on UA she still has a UTI, but her symptoms have resolved. Denies fever, chills, abnormal vaginal discharge, bleeding, dysuria, hematuria, N/V/D/C. Eduardo vaca ID - [facility] 12/05/2019 16:25:15 05/31/2022 text/html Aleyda Dobbs is a 71 y/o female with PMHx of DM (last A1c 8.1%) c/b left great toe amputation, rheumatoid arthritis, Sjogren's syndrome, LEXII, hyperlipidemia, hypertension, hypothyroidism, and recurrent UTIs reporting to clinic for [facility] exam. Patient notes a history of recurrent UTIs with the last being in the beginning of April. She does follow a Urologist at [facility]? and was prescribed Keflex. Patient feels like [...] discharge. FRANCISCO J SERRANO Attn: Accounting[address] [place], [address], [facility] 05/31/2022 14:39:58 09/09/2022 text/html 72yo F presentin g for skin lesion removal, discussed at previous visit. Also complaining of chronic dry throat that has felt mildly painful. No recent illness or current viral symptoms. History of DM and poor fitting dentures. No other complaints. FRANCISCO J SERRANO Attn: [address]ing[address] [place], [address], [facility] 09/09/2022 16:30:24 12/09/2022 text/html [...] hematuria. FRANCISCO J SERRANO Attn: Accounting[address] [place], [address], [facility] 12/11/2022 12:38:13 04/17/2023 text/html [...] N/V. NICHOLAS AVILES PA-C Attn: [address] [place], [address], [facility] 04/17/2023 09:38:38 OBGyn Episode No OBEpisode recorded.
--- OUTSIDE RECORDS SUMMARY | 2024-06-20 15:13 | XMS_ITS | Encounter Summary ---
Author Organization [facility] Address 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 Gender Identity Not on file Sexual Orientation Not on file documented as of this encounter Plan of Treatment Upcoming Encounters Date Type Department Care Team (Late st Contact Info) Description 07/31/2024 9:30 AM CDT Office Visit [facility] Oncology and Hematology - Kevin [address] [facility] [address] [place] [address] Ray Richards MD [address] [facility] [address] [place] [address] documented as of this encounter Visit Diagnoses Diagnosis Unspecified hearing loss documented in this encounter Care Teams Agricultural Equipment Sales Manager Relationship Specialty Start Date End Date Charles Armendariz DO [address] [facility] [address] [place] [address] PCP - General Internal Medicine 11/04/22 documented as of this encounter
--- OUTSIDE RECORDS SUMMARY | 2024-06-20 15:13 | XMS_ITS | Encounter Summary ---
Author Organization [facility] [employer] [facility] Address [address] [place] [address] Care Team Providers Care Drug Room Clerk Name Role Phone Charles Armendariz DO Primary Care Provider Encounter Details Date Type Department Care Team (Late Contact Info) Description 06/17/2024 Orders Only [facility] Oncology and Hematology [facility] [address] [place] [address] Ray Richards MD [address] [employer] [address] [place] [address] Chronic anemia Social History Tobacco Use [...] on file 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 Gender Identity Not on file Sexual Orientation Not on file documented as of this encounter Plan of Treatment Upcoming Encounters Date Type Department Care Team (Late Contact Info) Description 07/31/2024 9:30 AM CDT Office Visit [facility] Oncology and Hematology [address] [place] [address] Ray Richards MD [address] [employer] [address] [place] [address] documented as of this encounter Visit Diagnoses Diagnosis Chronic anemia Anemia, unspecified documented in this encounter Care Teams Drug Room Clerk Relationship Specialty Start Date End Date Charles Armendariz DO [address] [address] PCP - General Internal Medicine 11/04/22 documented as of this encounter
--- OUTSIDE RECORDS SUMMARY | 2024-06-20 15:13 | XMS_ITS | Encounter Summary ---
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
--- OUTSIDE RECORDS SUMMARY | 2024-06-20 15:13 | XMS_ITS | Encounter Summary ---
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
== END 2024-06-20 13:58 | disposition home or self-care (01) ==
LOC: ANHIMG 14:03
PROVIDERS: PCP Internal Medicine; Visit Provider Clinical Nurse Specialist
DX: M25.521 Pain in right elbow (principal)
CPT/HCPCS: 73221

== ENCOUNTER 2024-07-17 12:55 | Outpatient (CLI) | payer OTHER, MEDICARE, BC, SELFPAY ==
--- NOTE | ~2024-07-17 | MR_ITS ---
MRI of the right clavicle CLINICAL HISTORY: Injury TECHNIQUE: Coronal T1-weighted and STIR images, sagittal T1-weighted and T2 fat-sat images, and axial T1 weighted and T2 STIR images were acquired. FINDINGS: There is an oblique, displaced fracture of the proximal clavicular shaft, with posterior di splacement of the clavicular head by approximately 1.5 cm relative to the shaft. There is marrow yoav a about the fracture site as well as fluid in the fracture gap. Probable prior resection of the dista l clavicle, remote. Surrounding soft tissues are otherwise unremarkable. There is probable underlying moderate to severe degenerative change of the right sternoclavicular shalini nt. IMPRESSION: Acute, oblique, displaced fracture of the proximal right clavicular shaft, as detailed above. 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 Reviewed, dictated and finalized at [facility]. IMPRESSION: Acute, oblique, displaced fracture of the proximal right clavicular shaft, as d etailed above. 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
--- OUTSIDE RECORDS SUMMARY | 2024-07-17 13:02 | XMS_ITS | Clinical Summary ---
Author Organization [facility] Address [address] [facility] [place] [address] Phone Care Team Providers Care Forest Fire Prevention Specialist Name Role Phone Charles Armendariz DO [...] Tablet Take 1 Tab by mouth daily. [id number] 1 Tab 0 6 Active azithromycin (ZITHROMAX) [...] to complete this topic Insurance MEDICARE [facility] Care Teams Forest Fire Prevention Specialist Relationship Specialty Start Date End Date Charles Armendariz DO [address] [facility] [place] [address] PCP - General Internal Medicine 11/05/15
--- OUTSIDE RECORDS SUMMARY | 2024-07-17 13:02 | XMS_ITS | Clinical Summary ---
Author Organization [facility] Gigi Begumcharline Address [address] [facility] [place] [place] [address] Care Team Providers Care Clinical Systems Educator Name Role Phone Charles Armendariz DO Primary Care Provider Allergies Active Allergy Reactions Criticality Noted Date Comments Canagliflozin Other (See Comments) Low 10/28/2021 Ciprofloxacin Nausea and Vomiting Low 09/08/2022 Daptomycin Diarrhea Low 06/29/2020 Doxycycline Other (See Comments),Unknown Low 09/19/2019 Empagliflozin Diarrhea Low 04/21/2021 Lisinopril Cough Low 08/13/2018 Povidone-Iodine Rash Medium 05/05/2017 Semaglutide Unknown High 01/27/2021 Gsbouqq-Kho-Jnd Reductase Inhibitors Muscle Pain Medium 11/05/2020 Valsartan [...] daily. Active fluticasone propionate (FLONASE) 50 mcg/spray [place], Suspension nasal inhaler Administer 2 Sprays in [...] Encounters Date Type Department Care Team Description 07/15/[address] [facility] Oncology and Hematology - [place] [address] [place] [address] Ray Richards MD Chronic anemia 07/03/[address] [facility] Oncology and Hematology - [place] [address] [place] [address] Ray Richards MD 07/01/[address] [facility] Oncology and Hematology - [place] [address] [place] [address] Ray Richards MD Chronic anemia 06/25/2024 External Device Data STL ABSTRACTION Provider, Abstract 06/25/2024 External Device Data STL ABSTRACTION Provider, Abstract [address] [facility] Oncology and Hematology - [place] [address] [place] [id number] Ray Richards MD 06/17/[address] [facility] Oncology and Hematology - [place] [address] [place] [address] Ray Richards MD Chronic anemia 06/13/[address] [facility] Oncology and Hematology - [place] [address] [place] [address] Ray Richards MD Chronic anemia (Primary Dx) 06/03/[address] [facility] Oncology and Hematology - [place] [address] [place] [address] Ray iRchards MD Chronic anemia 05/28/2024 External Device Data STL ABSTRACTION Provider, Abstract 05/28/2024 External Device Data STL ABSTRACTION Provider, Abstract 05/28/2024 External Device Data STL ABSTRACTION Provider, Abstract 05/22/2024 9:45 AM CDT Office Visit [facility] Oncology and Hematology - [place] [address] [place] [address] Ray Richards MD Chronic anemia (Primary Dx) 05/22/[address] [facility] Oncology and Hematology - [place] [address] [place] [address] aRy Richards MD 05/20/[address] [facility] Oncology and Hematology - [place] [address] [place] [address] Ray Richards MD Chronic anemia 05/06/[address] [facility] Oncology and Hematology - [place] [address] [place] [id number] Ray Richards MD Chronic anemia 05/01/2024 External Device Data STL ABSTRACTION Provider, Abstract 05/01/2024 External Device Data STL ABSTRACTION Provider, Abstract 04/30/2024 External Device Data STL ABSTRACTION Provider, Abstract 04/27/2024 1:30 AM TANDEM MILL STICKER - 04/27/2024 7:05 AM [employer]M MILL STICKER Emergency [facility] Emergency Department [address] [place] [address] Tobias Holden MD Encounter for blood typing (Primary Dx); Fall, initial encounter; Traumatic hematoma of right elbow, initial encounter Discharge Disposition: Home or Self Care 04/27/2024 Travel 04/24/[address] [facility] Oncology and Hematology - [place] [address] [place] [address] Ray Richards MD 04/22/[address] [facility] Oncology and Hematology - [place] [address] [place] [address] Ray Richards MD Chronic anemia from Last [...] on file Legal Sex Female 3:40 AM TANDEM M[employer] STICKER Gender Identity Not on file Sexual Orientation [...] cm (5' 1 ) 04/12/2023 1:08 PM TANDEM MILL STICKER Body Mass Index 40.17 04/12/2023 1:08 PM [employer]DEM MILL STICKER Plan of Treatment Upcoming Encounters Date Type Department Care Team (Late st Contact Info) Description 07/31/2024 9:30 AM CDT Office Visit [facility] Oncology and Hematology - [place] [address] [facility] [address] [place] [address] Ray Richards MD [address] [facility] [employer] [address] [place] [address] Health Maintenance Due Date Last [...] 60-74 years 1-dose series) 2012 COVID-19 Vaccine ( - 2023-2 5 season) 2023 09/28/2021, 03/22/2021, [...] Priority Date/Time Associated Diagnosis Comments CBC WITH DIFFERENTIAL Routine 07/03/2024 3:56 PM CDT CBC MIXED CELL DIFFERENTIAL Routine 2024 12:58 PM CDT CBC WITH AUTODIFFERENTIAL Routine 05/21/2024 1:41 PM CDT TYPE AND SCREEN Stat 04/27/2024 3:[address] HEAD CERVICAL SPINE WO CONTRAST Stat 04/27/2024 3:02 AM [employer] MILL STICKER XR FOREARM 2 VW RIGHT Stat 04/27/2024 2:54 AM [employer]DEM M[employer] STICKER XR HUMERUS 2+ VW RIGHT Stat 2:54 AM T[employer]DEM MILL STICKER XR KNEE 3 VW RIGHT Stat 04/27/2024 2: 54 AM [employer]DEM MILL STICKER XR KNEE 3 VW LEFT Stat 04/27/2024 2:5 4 AM TANDEM MILL STICKER XR CHEST PA OR AP 1 VW Stat 2:54 AM TANDEM MILL STICKER VERIFICATION BLOOD GROUP Stat 025 2:21 AM TANDEM MILL STICKER Encounter for blood typing PTT Stat 04/27/2024 2:21 AM T[employer]DEM MILL STICKER PROTIME-INR Stat 04/27/2024 2:21 AM T[employer]DE[employer] MILL STICKER COMPREHENSIVE METABOLIC PANEL Stat 04/27/2024 2:21 AM T[employer]DEM MILL STICKER CBC WITH DIFFERENTIAL Stat 04/27/2024 2:21 AM TANDE[employer] M[employer] STICKER CBC WITH AUTODIFFERENTIAL Routine 04/24/2024 11:51 AM TANDEM MILL STICKER from Last 3 Months Results * CBC WITH DIFFERENTIAL (07/03/2024 3:56 PM CDT) Only the most recent of2 resultswithin the time period is included. Blood us Ray Richards MD HEMATOLOGY ORDERABLES Final Res ult * CBC MIXED CELL DIFFERENTIAL (2024 12:58 PM CDT) Blood us Ray Richards MD HEMATOLOGY ORDERABLES Final Res ult * CBC WITH AUTODIFFERENTIAL (05/21/2024 1:41 PM CDT) Only the most recent of2 resultswithin the time period is included. Blood us Ray Richards MD HEMATOLOGY ORDERABLES Final Res ult * TYPE AND SCREEN (04/27/2024 3:27 AM TANDEM MILL STICKER) ABO GROUP B 04/27/2024 5:22 AM T[employer]DE[employer] MILL STICKER [facility] -- [facility] RH (D) TYPE Positive 04/27/2024 5:22 AM TANDEM MILL STICKER [facility]ORY SERVICES -- [facility] ANTIBODY SCREEN Negative 04/27/2024 5:22 AM TANDEM MILL STICKER [facility] -- [facility] Blood Venipuncture / Unknown 04/27/2024 3:27 AM T[employer]DEM MILL STICKER 04/27/2024 3:35 AM TANDEM MILL STICKER us Tobias Holden MD BLOOD BANK ORDERABLES Edited Result - Final [facility] -- [facility] CLIA# [id number] [address] [facility] [address] [address] * CT HEAD CERVICAL SPINE WO CONTRAST (04/27/2024 3:02 AM TANDEM MILL STICKER) Anatomical Region Laterality Modality Head Computed Tomogra phy 04/27/2024 2:47 AM TANDEM MILL STICKER Impressions 04/27/2024 3:22 AM TANDEM MILL STICKER IMPRESSION: 1. No acute intracranial finding 2. Chronic small vessel skin changes 3. No evidence of cervical spine fracture. Spondylitic changes seen throughout DICTATION LOCATION: Location 4 Narrative 04/27/2024 3:[address] HEAD CERVICAL SPINE WO CONTRAST EXAM [...] FOREARM 2 VW RIGHT (04/27/2024 2:54 AM TANDEM MILL STICKER) Anatomical Region Laterality Modality Upper Extremity Computed Radiogr aphy 04/27/2024 2:55 AM TANDEM MILL STICKER Impressions 04/27/2024 9:10 AM TANDEM MILL STICKER IMPRESSION: 1. No acute osseous abnormality identified. Subtle linear lucency in the radial head which is likely due to variant of trabeculation with a fracture felt to be unlikely. If there is clinical concern for radial head fracture would recommend follow-up dedicated elbow radiographs. 2. Focal soft tissue swelling involving the proximal forearm which is likely a hematoma. DICTATION LOCATION: [address] Narrative 04/27/2024 9:10 AM TANDEM MILL STICKER XR FOREARM 2 VW RIGHT DATE: 04/27/2024 [...] which is likely a hematoma. DICTATION LOCATION: [address] Tobias Holden MD DIAGNOSTIC IMAGING ORDERABLES Final Result * XR HUMERUS 2+ VW RIGHT (04/27/2024 2:54 AM TANDEM MILL STICKER) Anatomical Region Laterality Modality Upper Extremity Computed Radiogr aphy 04/27/2024 2:54 AM T[employer]DEM MILL STICKER Impressions 04/27/2024 7:48 AM TANDEM MILL STICKER IMPRESSION: 1. No acute osseous abnormality identified. DICTATION LOCATION: [address] Narrative 04/27/2024 7:48 AM TANDEM MILL STICKER XR HUMERUS 2+ VW RIGHT DATE: 04/27/2024 [...] No acute osseous abnormality identified. DICTATION LOCATION: [address] us Tobias Holden MD DIAGNOSTIC IMAGING ORDERABLES Final Result * XR KNEE 3 VW RIGHT (04/27/2024 2:54 AM TANDEM MILL STICKER) Anatomical Region Laterality Modality Lower Extremity Computed Radiogr aphy 04/27/2024 2:54 AM TANDEM MILL STICKER Impressions 04/27/2024 7:49 AM TANDEM MILL STICKER IMPRESSION: Joint effusion without evidence of acute fracture or dislocation. Tricompartmental osteoarthritis. DICTATION LOCATION: [address] Narrative 04/27/2024 7:49 AM TANDEM MILL STICKER EXAMINATION: XR KNEE 3 VW RIGHT DATE: [...] fracture or dislocation. Tricompartmental osteoarthritis. DICTATION LOCATION: [address] us Tobias Holden MD DIAGNOSTIC IMAGING ORDERABLES Final Result * XR KNEE 3 VW LEFT (04/27/2024 2:54 AM TANDEM MILL STICKER) Anatomical Region Laterality Modality Lower Extremity Computed Radiogr aphy 04/27/2024 2:54 AM TANDEM MILL STICKER Impressions 04/27/2024 7:47 AM TANDEM MILL STICKER IMPRESSION: 1. Advanced tricompartmental degenerative changes. No acute osseous abnormality identified. DICTATION LOCATION: [address] Narrative 04/27/2024 7:47 AM TANDEM MILL STICKER XR KNEE 3 VW LEFT DATE: 04/27/2024 [...] No acute osseous abnormality identified. DICTATION LOCATION: [address] Tobias Holden MD DIAGNOSTIC IMAGING ORDERABLES Final Result * XR CHEST PA OR AP 1 VW (04/27/2024 2:54 AM TANDEM MILL STICKER) Anatomical Region Laterality Modality Chest Computed Radiogr aphy 04/27/2024 2:54 AM TANDEM MILL STICKER Impressions 04/27/2024 7:47 AM TANDEM MILL STICKER IMPRESSION: Clear lungs. DICTATION LOCATION: [address] Narrative 04/27/2024 7:47 AM TANDEM MILL STICKER EXAMINATION: XR CHEST PA OR AP 1 [...] technique. IMPRESSION: Clear lungs. DICTATION LOCATION: Location 9 - [facility] Result [facility] Tobias Holden MD DIAGNOSTIC IMAGING ORDERABLES Final Result * VERIFICATION BLOOD GROUP (04/27/2024 2:21 AM TANDEM MILL STICKER) ABO GROUP B 04/27/2024 7:43 AM [facility] LABORATORY SERVICES -- [facility] RH (D) TYPE Positive 04/27/2024 7:43 AM [facility]ORY SERVICES -- [facility] Blood Venipuncture / Unknown 04/27/2024 2:21 AM T[employer]DEM MILL STICKER 04/27/2024 7:01 AM [employer] M[employer] STICKER Daksha Keith MD BLOOD BANK ORDERABLES Final Result Performing Organization Address City/[facility]/ZIP Co de Phone Number [facility] Credible [facility] -- [facility]# [id number] [address] [place] [address] * PTT (04/27/2024 2:21 AM TANDEM MILL STICKER) PTT 33.3 24.4 - 36.4 seconds 04/27/2024 3:15 AM [facility] LABORATORY SERVICES - [facility] Comment: PTT Therapeutic Range: Heparin Level PTT (seconds) <0.10 units/mL <55.8 0.10 - 0.30 units/mL 55.8 - 74.3 0.30 - 0.70 units/mL* 74.3 - 111.2* 0.70 - 1.00 units/mL 111.2 - 138.9 *corresponds to therapeutic range for unfractionated heparin Blood Venipuncture / Unknown 04/27/2024 2:21 AM TANDEM MILL STICKER 04/27/2024 2:27 AM T[employer]DEM MILL STICKER Result [facility] Tobias Holden MD HEMATOLOGY ORDERABLES Final R esult Performing Organization Address [facility]/ZIP Co de Phone Number [facility] Credible [facility]# [id number] [address] [place] [address] * PROTIME-INR (04/27/2024 2:21 AM TANDEM MILL STICKER) PROTIME 13.4 12.7 - 15.1 Seconds 04/27/2024 3:15 AM [facility] [employer] LABORATORY SERVICES [facility] INR 1.0 0.9 - 1.1 04/27/2024 3:15 AM [facility] [employer] [facility] Blood Venipuncture / Unknown 04/27/2024 2:21 AM T[employer]DEM MILL STICKER 04/27/2024 2:27 AM TANDEM MILL STICKER [facility] [employer] LABORATORY SERVICES - [facility] - 04/27/2024 3:15 AM TANDEM MILL STICKER INR Therapeutic Range: Adult: 2.0 - 3.0 for pulmonary embolism or prophylaxis against venous thrombosis or systemic embolization. 2.0 - 3.0 for patients with tissue heart valves. 2.5 - 3.5 for patients with mechanical heart valves or post SD. Pediatric (12 years and under): 1.5 - 3.0 Although the target range in children is not well established, INR values of 1.5 - 3.0 are recommended for most patients. Higher values have been used in children with prosthetic cardiac valves and hereditary clotting disorders. (<3 days) therapeutic ranges have not been established. Tobias Holden MD HEMATOLOGY ORDERABLES Final R esult [facility] [employer] SERVICES [facility]# [id number] [address] [place] [address] * (ABNORMAL) COMPREHENSIVE METABOLIC PANEL (04/27/2024 2:21 AM TANDEM MILL STICKER) SODIUM 134(L) 136 - 145 mmol/L 04/27/2024 3:30 AM [facility] [employer] LABORATORY SERVICES [facility] POTASSIUM 4.4 3.5 - 5.0 mmol/L 04/27/2024 3:30 AM [facility] [employer] LABORATORY [facility] CHLORIDE 101 98 - 107 mmol/L 04/27/2024 3:30 AM [facility] [employer] LABORATORY [facility]. [facility] CO2 22 22 - 29 mmol/L 04/27/2024 3:30 AM [facility] [employer] [facility] CALCIUM 8.9 8.6 - 10.2 mg/dL 04/27/2024 3:30 AM [facility] BUN 43(H) 8 - 23 mg/dL 04/27/2024 3:30 AM [facility] CREATININE 1.49(H) 0.51 - 0.95 mg/dL 04/27/2024 3:30 AM [facility] [employer] Comment:The GFR result is no t clinically significant on patients <18 or >70 years of age. GLUCOSE 370(H) 74 - 99 mg/dL 04/27/2024 3:30 AM [facility] [employer] TOTAL PROTEIN 7.4 6.7 - 8.6 g/dL 04/27/2024 3:30 AM [facility] ALBUMIN 3.4(L) 3.5 - 5.2 g/dL 04/27/2024 3:30 AM [facility] [employer] [facility] BILIRUBIN TOTAL 0.2 0.2 - 1.1 mg/dL 04/27/2024 3:30 AM [facility] ALKALINE PHOSPHATASE 188(H) 35 - 104 U/L 04/27/2024 3:30 AM [facility] AST 40(H) <33 U/L 04/27/2024 3:30 AM [facility] ALT 21 <34 U/L 04/27/2024 3:30 AM [facility] [employer] [facility] GFR 37 mL/min/1.7 3 sq meter 04/27/2024 3:30 AM [facility] Comment:eGFR calculated with 2020 CKD-EPI equation. Vegetarian diet, extremely high or low muscle mass, and may affect results. Cystatin C with Glomerular Filtration Rate is a suitable alternative for these patients. ANION GAP 11 8 - 16 mmol/L 04/27/2024 3:30 AM [facility] Blood Venipuncture / Unknown 04/27/2024 2:21 AM [employer] M[employer] STICKER 04/27/2024 2:27 AM T[employer] MILL STICKER Narrative [facility] LABORATORY [facility] - 04/27/2024 3:30 AM [employer] M[employer] STICKER Samples containing indocyanine green cause interferences on Total and/or Direct Bilirubin and must not be measured. Tobias Holden MD CHEMISTRY ORDERABLES Final Re sult [facility] LABORATORY SERVICES [facility] [employer]# [id number] [address] [id number] from Last 3 Months Insurance MEDICARE PART A AND B [employer] ACCESS/[employer] PPO INCIDE O OPEN ACCESS INCIDE HMO OPEN ACCESS BCBS BLUE ACCESS/TRUE BLUE PPO MEDICARE PART A AND B Care Teams Clinical Systems Educator Relationship Specialty Start Date End Date Charles Armendariz DO [address] [address] PCP - General Internal Medicine 11/04/22
--- OUTSIDE RECORDS SUMMARY | 2024-07-17 13:02 | XMS_ITS | Clinical Summary ---
Author Organization [facility] Address [address] [place] [address] Care Team Providers Care Image Scientist Name Role Phone Tammy Arroyo RN Unavailable [phone] Charles Armendariz DO Primary Care Provider [phone] Source Comments [facility],non-owned Affiliates and Associated Physician Practices is amultiple site organization consisting of ambulatory clinics and hospital sitesin [place], [place], [place] and [place]. This disclosure is being madepursuant to the Care Everywhere program and may not contain all information available regarding this patient. Last updated 17.[facility] Allergies Active Allergy Reactions Criticality Noted Date Comments Povidone Iodine Rash Medium 05/05/2017 Valsartan Urticaria Medium 03/30/2017 Vancomycin Urticaria Medium 11/05/2015 Medications * Be aware that medications may not be up to date on this document. Alwaysverify current medications with the patient. montelukast (SINGULAIR) 10 MG tablet Take 10 mg by mouth once daily Active fluticasone propionate (FLONASE) 50 MCG/ACT nasal spray [place] 2 Sprays into each nostril once daily [...] on file Legal Sex Female 6:07 AM FINGERPRINT CLASSIFIER Gender Identity Not on file Sexual Orientation [...] 105.7 kg (233 lb) 05/05/2017 6:48 AM FINGERPRINT CLASSIFIER Height 161.3 cm (5' 3.5 ) 05/05/2017 6:48 AM FINGERPRINT CLASSIFIER Body Mass Index 40.63 05/05/2017 6:48 AM FINGERPRINT CLASSIFIER Plan of Treatment Health Maintenance Due Date [...] patient's age to complete this topic Insurance [facility] MEDICARE [facility] Advance Directives * Full Code (Latest Code Status on File) Date Activated Date Inactivated Comments 05/26/2015 11:04 PM 06/01/2015 6:08 PM * Full Code Date Activated Date Inactivated Comments 05/26/2015 7:39 PM 05/26/2015 11:04 PM Care Teams Image Scientist Relationship Specialty Start Date End Date Charles Armendariz DO PCP - General 06/04/20 Tammy Arroyo, RN Machine Shop Specialist 05/26/15
--- OUTSIDE RECORDS SUMMARY | 2024-07-17 13:02 | XMS_ITS | CONTINUITY OF CARE DOCUMENT ---
Author Name yareli downs Address Unknown Organization [facility] Address [address] [address] [place] [address] Phone [phone] Care Team Providers Care Qualification Engineer Name Role Phone David Vanegas MD Unavailable [phone] GILBERTO IRIZARRY DO Unavailable GILBERTO IRIZARRY DO Unavailable [phone] PROBLEMS Condition Status Date Provider Notes DIABETES MELLITUS;since 1997 active David Vanegas MD intol to sglt2 and arb and ozemopci, cannot affored [place] HTN-04/05 [id number] active - David turner MD OBESITY; active [...] UP, Tricuspid regurgitation, mild completed - David Vnaegas MD Microalbuminuria active David Vanegas MD in [...] In-person encounter Office Visit David Vanegas MD [facility] Diastolic CHFPFOElevated LFT's 4 - 4 In-person encounter Office Visit David Vanegas MD [facility] CAD;neg carotdi dupelxCOPD;has lung mdTuberculosis 9 - 9 In-person encounter Office Visit David Vanegas MD [facility] Diastolic CHFAnemia of chronic diseaseMitral valve disorderShortness of breathPFO 1 - 1 In-person encounter Office Visit David Vanegas MD [facility] 5 - 5 In-person encounter Office Visit David Vanegas MD [facility] DIABETES MELLITUS;since 1997MicroalbuminuriaPVD; 3 - 3 In-person encounter Office Visit David Vanegas MD [facility] DIABETES MELLITUS;since 1997CAD;neg carotdi dupelxAnemia of chronic disease 1 - 1 In-person encounter Office Visit David Vanegas MD [facility] DIABETES MELLITUS;since 1997Arrhythmia;NML TSHRenal disease, chronic, mild 3 - 3 In-person encounter Office Visit David Vanegas MD [facility] 1 - 2 In-person encounter Office Visit David Vanegas MD [facility] Hypercholesterolemia;with high crp and low lpaExposure to SARS-associated coronavirus;had vaccine and neg swab 3 - 3 In-person encounter Office Visit David Vanegas MD [facility] 1 - 1 In-person encounter Office Visit David Vanegas MD [facility] Hypothyroidism;ON RX PER PRIMARYCOPD;has lung mdAnemia of chronic diseaseMicroalbuminuriaCOPDchronic thromboisi left lsv and gsvMitral valve disorder 6 - 6 In-person encounter Office Visit David Vanegas MD [facility] HTN ESSENTIAL;neg duplex and angioCAD;neg carotdi dupelxPVD;NEG HILDA 2009CAROTID ARTERY DISEASE;NEG DUPLEXCough due to VIET inhibitorshx of CARPAL TUNNEL SYNDROME;had bilat srugeryCONGENITAL HEART DISEASE;Tobacco use, quitAngina pectorisScreeningNeuropathic painPVD;Ulcer, chronic, other part of foot 5 - 5 In-person encounter Office Visit David Vanegas MD [facility] 7 - 7 In-person encounter Office Visit David Vanegas MD [facility] CAD;neg carotdi dupelx 7 - 7 In-person encounter Office Visit David Vanegas MD [facility] LFT, ABNORMAL;PRAVA STOPPED PRIMARY, fu per primayTobacco use, quit 2 - 2 In-person encounter Office Visit David Vanegas MD [facility] 6 - 6 In-person encounter Office Visit David Vanegas MD [facility] DIABETES MELLITUS;since 1998Tricuspid regurgitation, mildAnxiety 2 - 2 In-person encounter Office Visit David Vanegas MD [facility] SLEEP APNEA;Anemia of chronic disease 1 - 1 In-person encounter Office Visit David Vanegas MD [facility] HTN ESSENTIAL;neg duplex and angioCAD;neg carotdi dupelxDiastolic CHFSLEEP APNEA;Granulomatous lung disease 8 - 8 In-person encounter Office Visit David Vanegas MD [facility] 2 - 2 In-person encounter Office Visit David Vanegas MD [facility] 6 - 6 In-person encounter Office Visit David Vanegas MD [facility] OBESITY;HTN ESSENTIAL;neg duplex and angioCAD;neg carotdi dupelxHypercholesterolemia;with high crp and low lpaISCHEMIA; CXR 11, NML ANGIO 12Anemia of chronic diseaseCONGENITAL HEART DISEASE;MicroalbuminuriaVitamin D deficiency 8 - 8 In-person encounter Office Visit David Vanegas MD [facility] 1 - 1 In-person encounter Office Visit David Vanegas MD [facility] OBESITY;HTN ESSENTIAL;neg duplex and angioCAD;neg carotdi dupelxHypercholesterolemia;with high crp and low lpaDiastolic CHFCOPD;has lung md 5 - 5 In-person encounter Office Visit David Vanegas MD [facility] 4 - 4 In-person encounter Office Visit David Vanegas MD [facility] 2 - 2 In-person encounter Office Visit David Vanegas MD [facility] 1 - 1 In-person encounter Office Visit David Vanegas MD [facility] 8 - 2013/08/2 8 In-person encounter Office Visit David Vanegas MD [facility] 5 - 5 In-person encounter Office Visit David Vanegas MD [facility] HTN ESSENTIAL;neg duplex and angioCAD;neg carotdi dupelxHypercholesterolemia;with high crp and low lpaCAD;NEG CATH 2004, NEG NUC 2006 AND 11LFT, ABNORMAL;PRAVA STOPPED PRIMARY, fu per primayhx of CARPAL TUNNEL SYNDROME;had bilat srugeryCONGENITAL HEART DISEASE; 0 - 0 In-person encounter Office Visit David Vanegas MD [facility] Diastolic CHFISCHEMIA; CXR 11, NML ANGIO 12Anemia of chronic diseasehx of CARPAL TUNNEL SYNDROME;had bilat srugery 9 - 9 In-person encounter Office Visit David Vanegas MD [facility] CAD;neg carotdi dupelxHypothyroidism;ON RX PER PRIMARYDiastolic CHFISCHEMIA; CXR 11, NML ANGIO 12LFT, ABNORMAL;PRAVA STOPPED PRIMARY, fu per primay 5 - 5 In-person encounter Office Visit David Vanegas MD [facility] LFT, ABNORMAL;PRAVA STOPPED PRIMARY, fu per primay 4 - 4 In-person encounter Office Visit David Vanegas MD [facility] DIABETES MELLITUS;since 1997OBESITY;SOB; NEG CXR 2008CHEST PAIN-10/31 CATH NEG LV 70,?MICROVASCULAR DZCAD;neg carotdi dupelxPALPITATIONS:NEG, ECHO, CXR, HOLTER 2008FATIGUE;DOES NOT SEEM TO BE CARDIAC, TO SEE PRIMARYISCHEMIA; CXR 11, NML ANGIO 12TOBACCO ABUSE;NEG AMI 11COPD;has lung md 0 - 0 In-person encounter Office Visit David Vanegas MD [facility] HTN ESSENTIAL;neg duplex and angioHypothyroidism;ON RX PER PRIMARYDiastolic CHFCough due to VIET inhibitorsCAD;NEG CATH 2003, NEG NUC 2006 AND 11SLEEP APNEA; 1 - 2 In-person encounter Office Visit David Vanegas MD [facility] HTN-04/05 [id number];neg carotdi dupelxPVD;NEG HILDA 2009EDEMA;NEG VD 2008 0 - 0 In-person encounter Office Visit David Vanegas MD [facility] DIABETES MELLITUS;since 1997SOB; NEG CXR 2007CHEST PAIN-10/31 CATH NEG LV 70,?MICROVASCULAR DZCAD;neg carotdi dupelxPALPITATIONS:NEG, ECHO, CXR, HOLTER 2007 1 - 1 In-person encounter Office Visit David Vanegas MD [facility] CHEST PAIN-10/31 CATH NEG LV 70,?MICROVASCULAR DZCAD;neg carotdi dupelxHypercholesterolemia;with high crp and low lpaHypothyroidism;ON RX PER PRIMARYPALPITATIONS:NEG, ECHO, CXR, HOLTER 2007 VITAL SIGNS Date Observation Value Provider Body Mass Index (Ratio) 38.70 kg/m2 Aleksandar Vanegas MD blood pressure, diastolic 65 mm[Hg] Ghulam [facility] blood pressure, systolic 119 mm[Hg] Kristyn dunne [facility] blood pressure, cuff size regular Ghulam johnny [facility] oxygen saturation, oximetry 97 % [facility] pulse rate 94 /min [facility] weight E&M 222 [lb_av] [facility] height E&M 63.5 [in_i] [facility] Body Mass Index (Ratio) 38.36 kg/m2 Aleksandar Vanegas MD oxygen saturation, oximetry 96 % Randi Blanco pulse rate 97 /min Rnadijohnny Blanco blood pressure, cuff size large Braden [...] Ja rret blood pressure, systolic 131 mm[Hg] [facility] pulse rate 93 /min [facility] oxygen saturation, oximetry 93 % Angel respiratory rate E&M 16 /min [facility] weight E&M 225 [lb_av] [facility] height E&M 63.5 [in_i] [facility] Body Mass Index (Ratio) 40.27 kg/m2 Aleksandar Vanegas MD blood pressure, diastolic 72 mm[Hg] Denita nkLog blood pressure, systolic 142 mm[Hg] Lexis og blood pressure, cuff size large [facility], [facility] mm[Hg] rret blood pressure, systolic 142 mm[Hg] [facility] ret pulse rate 86 /min [facility] respiratory rate E&M 12 /min [facility] oxygen saturation, oximetry 94 % [facility] weight E&M 231 [lb_av] [facility] height E&M 63.5 [in_i] [facility] Body Mass Index (Ratio) 40.97 kg/m2 Aleksandar [...] blood pressure, diastolic 75 mm[Hg] Ca therine [facility] blood pressure, systolic 173 mm[Hg] Cat herine Fran oxygen saturation, oximetry 95 % Ting Fran respiratory rate E&M 18 /min Catheri ne Fran pulse rate 80 /min Ting Fran weight E&M 216 [lb_av] Ting Fran blood pressure, cuff size regular Ca therine [facility] height E&M 63.5 [in_i] Ting Fran Body Mass Index (Ratio) 37.14 kg/m2 Aleksandar Vanegas MD weight E&M 213 [lb_av] David Soriano Body Mass Index (Ratio) 39.58 kg/m2 Aleksandar Vanegas MD blood pressure, cuff size large Ke rri Regulouenenfmay[facility] hospitalmisty blood pressure, diastolic 60 mm[Hg] Ke rri Regulouenenfb[facility] blood pressure, systolic 102 mm[Hg] Jae Saunders oxygen saturation, oximetry 94 % Marlene Castorenabaylor [facility] respiratory rate E&M 18 /min Marlene vossenejorge [facility]aylor [facility] pulse rate 99 /min Marlene Ervin [facility] weight E&M 227 [lb_av] Marlene Ervin [facility] height E&M 63.5 [in_i] Marlene Mueller [facility] Body Mass Index (Ratio) 39.92 kg/m2 Aleksandar Vanegas MD blood pressure, cuff size regular Wilfred ismaren Cory pulse rate 80 /min Ruba [place] blood pressure, diastolic 72 mm[Hg] Kr isty [place] blood pressure, systolic 130 mm[Hg] Catracho Ray oxygen saturation, oximetry 97 % Ruba Cory respiratory rate E&M 17 /min Ruba [place] weight E&M 229 [lb_av] Ruba [place] height E&M 63.5 [in_i] Ruba [place] Body Mass Index (Ratio) 39.92 kg/m2 Aleksandar [...] [in_i] Isael mansfield pulse rate #2 62 [facility] blood pressure, fisher tolic, second observation 75 mm[Hg] [facility] blood pressure, syst olic, second observation 132 mm[Hg] [facility] oxygen saturation, oximetry 98 % [facility] pulse rate 62 /min [facility], diastolic 75 mm[Hg] Vi ctoria Ciscothiago blood pressure, systolic 132 mm[Hg] Bonifacio Peckthiago pulse rate #2 81 [facility] Center[facility] blood pressure, fisher tolic, second observation 75 mm[Hg] [facility] blood pressure, syst olic, second observation 156 mm[Hg] [facility] oxygen saturation, oximetry 98 % [facility] pulse rate 81 /min [facility] blood pressure, diastolic 75 mm[Hg] [facility] Ted blood pressure, systolic 156 mm[Hg] Bonifacio [facility] pulse rate #2 84 [facility] blood pressure, fisher tolic, second observation 75 mm[Hg] [facility] blood pressure, syst olic, second observation 136 mm[Hg] [facility] oxygen saturation, oximetry 98 % [facility] pulse rate 84 /min [facility] blood pressure, diastolic 75 mm[Hg] [facility], systolic 136 mm[Hg] [facility] pulse rate #2 82 [facility] blood pressure, fisher tolic, second observation 79 mm[Hg] [facility] blood pressure, syst olic, second observation 119 mm[Hg] [facility] oxygen saturation, oximetry 98 % [facility] pulse rate 82 /min [facility] blood pressure, diastolic 79 mm[Hg] Vi [facility] blood pressure, systolic 119 mm[Hg] Boinfacio yesenia [facility] Body Mass Index (Ratio) 40.38 kg/m2 [...] [in_i] Isael mansfield pulse rate #2 79 [facility] blood pressure, fisher tolic, second observation 84 mm[Hg] [facility], second observation 136 mm[Hg] [facility] oxygen saturation, oximetry 98 % [facility] pulse rate 79 /min [place] blood pressure, diastolic 84 mm[Hg] [facility] Tebid blood pressure, systolic 136 mm[Hg] [facility]2 78 [place] blood pressure, fisher tolic, second observation 80 mm[Hg] [facility] blood pressure, syst olic, second observation 135 mm[Hg] [facility] oxygen saturation, oximetry 98 % [facility] pulse rate 78 /min [facility] blood pressure, diastolic 80 mm[Hg] [facility] Tebid blood pressure, systolic 135 mm[Hg] Bonifacio [facility] Tebid pulse rate #2 84 [place] blood pressure, fisher tolic, second observation 87 mm[Hg] [facility] blood [facility], syst olic, second observation 147 mm[Hg] [facility], oximetry 98 % [facility] pulse rate 84 /min [place] d blood pressure, diastolic 87 mm[Hg] [facility] Tebid blood pressure, systolic 147 mm[Hg] Bonifacio yesenia Tebid pulse rate #2 60 [facility] blood pressure, fisher tolic, second observation 82 mm[Hg] [facility], syst olic, second observation 133 mm[Hg] [facility] oxygen saturation, oximetry 98 % [place] Tebid pulse rate 60 /min Chayo Tebid blood pressure, diastolic 82 mm[Hg] Vi ctoria Tebid blood pressure, systolic 133 mm[Hg] Bonifacio yesenia Tebid pulse rate #2 63 [place] bid blood pressure, fisher tolic, second observation 77 mm[Hg] Chayo Tebid blood pressure, syst olic, second observation 125 mm[Hg] Chayo Tebid oxygen saturation, oximetry 98 % [facility] pulse [facility] 63 /min [place] Tebid blood pressure, diastolic 77 mm[Hg] Vi okoria Tebid blood pressure, systolic 125 mm[Hg] [facility] #2 77 [facility], fisher tolic, second observation 74 mm[Hg] [facility], syst olic, second observation 142 mm[Hg] [facility], oximetry 98 % [facility] pulse [facility] 77 /min [facility], diastolic 74 mm[Hg] [facility] Tebid blood pressure, systolic 142 mm[Hg] [facility] pulse rate #2 83 [facility] blood [facility], fisher tolic, second observation 76 mm[Hg] Chayo Tebid blood pressure, syst olic, second observation 128 mm[Hg] [place] Tebid oxygen saturation, oximetry 98 % [facility] pulse rate 83 /min [place] Tebid blood pressure, diastolic 76 mm[Hg] Vi okoria Tebid blood pressure, systolic 128 mm[Hg] Bonifacio yesenia Tebid pulse rate #2 74 [facility] blood [facility], fisher tolic, second observation 70 mm[Hg] [facility] blood [facility], syst olic, second observation 123 mm[Hg] Chayo d oxygen saturation, oximetry 98 % [place]o d pulse rate 74 /min [place] d blood pressure, diastolic 70 mm[Hg] Vi ctoria Tebid blood pressure, systolic 123 mm[Hg] Bonifacio yesenia Tebid pulse rate #2 95 [facility] blood pressure, fisher tolic, second observation 82 mm[Hg] Chayo d blood pressure, syst olic, second observation 137 mm[Hg] [facility], oximetry 98 % [place]o pulse rate 95 /min [place] d blood pressure, diastolic 82 mm[Hg] Vi ctoria Tebid blood pressure, systolic 137 mm[Hg] Bonifacio yesenia Tebid pulse rate #2 81 [place] blood pressure, ifsher tolic, second observation 76 mm[Hg] [facility], syst olic, second observation 132 mm[Hg] [facility], oximetry 98 % [place]o pulse rate 81 /min [place] d blood pressure, diastolic 76 mm[Hg] [facility] Tebid blood pressure, systolic 132 mm[Hg] Bonifacio yesenia Tebid pulse rate #2 74 [place] d blood pressure, fisher tolic, second observation 82 mm[Hg] [facility], syst olic, second observation 128 mm[Hg] [facility], oximetry 98 % [place]o pulse rate 74 /min [place] d blood pressure, diastolic 82 mm[Hg] Vi [...] [in_i] Uzma Ileana pulse rate #2 79 [place] Tebid blood pressure, fisher tolic, second observation 72 mm[Hg] Chayo Tebid blood pressure, syst olic, second observation 130 mm[Hg] Chayo Tebid oxygen saturation, oximetry 98 % [facility] pulse [facility] 79 /min [facility], diastolic 72 mm[Hg] Vi ctoria Tebid blood pressure, systolic 130 mm[Hg] Bonifacio yesenia Tebid pulse rate #2 81 [place] Tebid blood pressure, fisher tolic, second observation 73 mm[Hg] Chayo Tebid blood pressure, syst olic, second observation 127 mm[Hg] Ch[place]o Tebid oxygen saturation, oximetry 98 % [place] Tebid pulse rate 81 /min [place] Tebid blood pressure, diastolic 73 mm[Hg] Vi ctoria Tebid blood pressure, systolic 127 mm[Hg] Bonifacio yesenia Tebid pulse rate #2 89 [place] Tebid blood pressure, fisher tolic, second observation 74 mm[Hg] Chayo Tebid blood pressure, syst olic, second observation 132 mm[Hg] Chayo Tebid oxygen saturation, oximetry 98 % Chayo Tebid pulse rate 89 /min [place] Tebid blood pressure, diastolic 74 mm[Hg] Vi ctoria Tebid blood pressure, systolic 132 mm[Hg] Bonifacio yesenia Tebid pulse rate #2 87 [place] Tebid blood pressure, fisher tolic, second observation 79 mm[Hg] Chayo Tebid blood pressure, syst olic, second observation 162 mm[Hg] Ch[place]o Tebid oxygen saturation, oximetry 98 % [facility] pulse rate 87 /min [place] Tebid blood pressure, diastolic 79 mm[Hg] Vi ctoria Tebid blood pressure, systolic 162 mm[Hg] Bonifacio yesenia Tebid pulse rate #2 88 [place] Tebid blood pressure, fisher tolic, second observation 88 mm[Hg] [place] Tebid blood pressure, syst olic, second observation 166 mm[Hg] [facility], oximetry 98 % [facility] pulse [facility] 88 /min [place] Tebid blood pressure, diastolic 88 mm[Hg] Vi ctoria Tebid blood pressure, systolic 166 mm[Hg] Bonifacio yeesnia Tebid pulse rate #2 77 [place] Tebid blood pressure, fisher tolic, second observation 81 mm[Hg] [place] Tebid blood pressure, syst olic, second observation 144 mm[Hg] [place] Tebid oxygen saturation, oximetry 98 % [place] Tebid pulse rate 77 /min [place] Tebid blood pressure, diastolic 81 mm[Hg] Vi ctoria Tebid blood pressure, systolic 144 mm[Hg] Bonifacio yesenia Tebid pulse rate #2 83 [place] Tebid blood pressure, fisher tolic, second observation 77 mm[Hg] [place] Tebid blood pressure, syst olic, second observation 152 mm[Hg] [facility], oximetry 98 % [facility] pulse rate 83 /min [place] Tebid blood pressure, diastolic 77 mm[Hg] Vi ctoria Tebid blood pressure, systolic 152 mm[Hg] Bonifacio yesenia Tebid pulse rate #2 76 [place] bid blood pressure, fisher tolic, second observation 85 mm[Hg] [place] Tebid blood pressure, syst olic, second observation 148 mm[Hg] Chayo Tebid oxygen saturation, oximetry 98 % [place] bid pulse rate 76 /min [place] Tebid blood pressure, diastolic 85 mm[Hg] Vi ctoria Tebid blood pressure, systolic 148 mm[Hg] Bonifacio yesenia Tebid pulse rate #2 69 [place] d blood pressure, fisher tolic, second observation 81 mm[Hg] [facility], syst olic, second observation 154 mm[Hg] [facility] oxygen [facility], oximetry 98 % [place] pulse rate 69 /min [place] Tebid blood pressure, diastolic 81 mm[Hg] [facility] Tebid blood pressure, systolic 154 mm[Hg] Bonifacio yesenia Tebid pulse rate #2 62 [facility] blood pressure, fisher tolic, second observation 89 mm[Hg] [facility], syst olic, second observation 143 mm[Hg] [facility], oximetry 98 % [facility] pulse rate 62 /min [place] Tebid blood pressure, diastolic 89 mm[Hg] Vi ctoria Tebid blood pressure, systolic 143 mm[Hg] Bonifacio yesenia Tebid pulse rate #2 65 [facility] blood [facility], fisher tolic, second observation 88 mm[Hg] [facility] blood [facility], syst olic, second observation 132 mm[Hg] [facility], oximetry 98 % [facility] pulse rate 65 /min [place] Tebid blood pressure, diastolic 88 mm[Hg] Vi okoria Tebid blood pressure, systolic 132 mm[Hg] Bonifacio yesenia Tebid pulse rate #2 65 [place] bid blood pressure, fisher tolic, second observation 71 mm[Hg] Chayo Tebid blood pressure, syst olic, second observation 127 mm[Hg] Ch[place]o Tebid oxygen saturation, oximetry 98 % [facility] pulse [facility] 65 /min [place] Tebid blood pressure, diastolic 71 mm[Hg] [facility] Tebid blood pressure, systolic 127 mm[Hg] [facility] #2 68 [facility], fisher tolic, second observation 69 mm[Hg] [facility] blood [facility], syst olic, second observation 132 mm[Hg] [facility], oximetry 98 % [facility] pulse rate 68 /min [facility] blood [facility], diastolic 69 mm[Hg] [facility] Tebid blood pressure, systolic 132 mm[Hg] [facility] #2 72 [facility] blood [facility], fisher tolic, second observation 79 mm[Hg] [place] Tebid blood pressure, syst olic, second observation 134 mm[Hg] [place] Tebid oxygen saturation, oximetry 98 % [facility] pulse [facility] 72 /min [facility], diastolic 79 mm[Hg] Vi okoria Tebid blood pressure, systolic 134 mm[Hg] Bonifacio yesenia Tebid pulse rate #2 80 [facility] blood pressure, fisher tolic, second observation 68 mm[Hg] [facility] blood [facility], syst olic, second observation 129 mm[Hg] [facility] oxygen saturation, oximetry 98 % [facility] pulse rate 80 /min [place] blood pressure, diastolic 68 mm[Hg] Vi ctoria Tebid blood pressure, systolic 129 mm[Hg] Bonifacio brownia Tebid pulse rate #2 88 [facility] blood pressure, fisher tolic, second observation 86 mm[Hg] [place] blood pressure, syst olic, second observation 138 mm[Hg] [facility] oxygen saturation, oximetry 98 % [place] pulse rate 88 /min [place] blood pressure, diastolic 86 mm[Hg] [facility] Ted blood pressure, systolic 138 mm[Hg] Bonifacio brownia Tebid pulse rate #2 88 [facility] blood pressure, fisher tolic, second observation 77 mm[Hg] [facility] blood pressure, syst olic, second observation 156 mm[Hg] [facility] oxygen saturation, oximetry 98 % [facility] pulse rate 88 /min [place] blood pressure, diastolic 77 mm[Hg] [facility] blood pressure, systolic 156 mm[Hg] Bonifacio brownia Tebid pulse rate #2 86 [facility] blood pressure, fisher tolic, second observation 74 mm[Hg] [facility], syst olic, second observation 137 mm[Hg] [facility], oximetry 98 % [facility] pulse rate 86 /min [facility], diastolic 74 mm[Hg] Vi ctoria Tebid blood pressure, systolic 137 mm[Hg] Bonifacio brownia Tebid pulse rate #2 82 [facility] blood pressure, fisher tolic, second observation 67 mm[Hg] [facility] blood pressure, syst olic, second observation 125 mm[Hg] [facility] Body Mass Index (Ratio) 40.31 kg/m2 Darrel Underwood [employer] MANAGEMENT AGENT blood pressure, cuff size large Sh campbell Lemosdall FARM MANAGEMENT AGENT blood pressure, diastolic 62 mm[Hg] Sh campbell Lemosdall FARM MANAGEMENT AGENT blood pressure, systolic 130 mm[Hg] She jaye eLmosdall FARM MANAGEMENT AGENT weight E&M 231.2 [lb_av] Cynthia Underwood FARM MANAGEMENT AGENT oxygen saturation, oximetry 98 % [facility] pulse rate 82 /min [facility] blood pressure, diastolic 67 mm[Hg] Vi misaeloria blood pressure, systolic 125 mm[Hg] Bonifacio yesenia [facility] blood pressure, diastolic 69 mm[Hg] Ny deo Ortiz blood pressure, systolic 136 mm[Hg] Lizbeth brown Ortiz pulse rate 88 /min Pascale [facility] oxygen saturation, oximetry 96 % Pascale Ortiz respiratory rate E&M 16 /min Pascale Ortiz Body Mass Index (Ratio) 40.27 kg/m2 Carline ren [facility] weight E&M 231 [lb_av] Pascale Ortiz blood pressure, diastolic 60 mm[Hg] nola Demecs RN blood pressure, systolic 150 mm[Hg] Phong sta Demecs RN pulse rate 83 /min Jaja Demecs R N oxygen saturation, oximetry 98 % Jaja Demecs RN respiratory rate E&M 20 /min [place] Demecs RN Body Mass Index (Ratio) 39.40 kg/m2 Phongs ta Demecs RN weight E&M 226 [lb_av] [place] Demecs R N blood pressure, diastolic 62 mm[Hg] nola Demecs RN blood pressure, systolic 126 mm[Hg] Phong logan Demecs RN pulse rate 89 /min Jaja Demecs R N oxygen saturation, oximetry 94 % Jaja Demecs RN respiratory rate E&M 16 /min [place] Demecs RN Body Mass Index (Ratio) 39.47 kg/m2 [facility] E&M 226.4 [lb_av] [place] Demecs RN blood pressure, diastolic 70 mm[Hg] Kr isty Cory blood pressure, systolic 124 mm[Hg] Wilfredi stkitty Yuma pulse rate 97 /min Ruba Yuma oxygen saturation, oximetry 97 % Ruba Yuma respiratory rate E&M 18 /min Ruba Cory Body Mass Index (Ratio) 39.65 kg/m2 Luis A ty Cory weight E&M 227.4 [lb_av] Ruba Cory blood pressure, diastolic 70 mm[Hg] Yordan Wiggins blood pressure, systolic 140 mm[Hg] Jaqueline Wiggins pulse rate 74 /min Isael [place] oxygen saturation, oximetry 97 % Isael Andersonenson respiratory rate E&M 16 /min Gracy Wiggins Body Mass Index (Ratio) 40.20 kg/m2 Gladis Wiggins weight E&M 230.6 [lb_av] Isael Anderson enson blood pressure, diastolic 60 mm[Hg] Sh erry Muddy [employer]ARM MANAGEMENT AGENT blood pressure, systolic 138 mm[Hg] She jaye Lemosdall FARM MANAGEMENT AGENT pulse rate, standing 78 /min Cynthia Underwood [employer]ARM MANAGEMENT AGENT Body Mass Index (Ratio) 39.23 kg/m2 Darrel Underwood FARM MANAGEMENT AGENT weight E&M 225.0 [lb_av] Cynthia Muddy [employer]ARM MANAGEMENT AGENT Body Mass Index (Ratio) 39.44 kg/m2 Darrel Underwood FARM MANAGEMENT AGENT blood pressure, diastolic 80 mm[Hg] Sh campbell Zepedall FARM MANAGEMENT AGENT blood pressure, systolic 118 mm[Hg] She rrkitty Zepedall FARM MANAGEMENT AGENT pulse rate 88 /min Cynthia Underwood FARM MANAGEMENT AGENT weight E&M 226.2 [lb_av] Cynthia Underwood FARM MANAGEMENT AGENT Body Mass Index (Ratio) 39.58 kg/m2 Carline ren Ortiz blood pressure, diastolic 71 mm[Hg] Me deo Ortiz blood pressure, systolic 155 mm[Hg] Lizbeth kevin Ortiz pulse rate 92 /min Pascale Ortiz oxygen saturation, oximetry 94 % Pascale Ortiz respiratory rate E&M 15 /min Pascale Ortiz weight E&M 227 [lb_av] Pascale Ortiz blood pressure, diastolic 61 mm[Hg] Sh campbell Underwood FARM MANAGEMENT AGENT blood pressure, systolic 113 mm[Hg] She rrkitty Zepedall FARM MANAGEMENT AGENT Body Mass Index (Ratio) 36.54 kg/m2 Darrel Underwood FARM MANAGEMENT AGENT weight E&M 209.6 [lb_av] Cynthia Underwood FARM MANAGEMENT AGENT Body Mass Index (Ratio) 36.96 kg/m2 Sanz i Nicky blood pressure, diastolic 61 mm[Hg] Ke rri Omeroer blood pressure, systolic 113 mm[Hg] Ker ri Omeroer pulse rate 83 /min Marlene Kelle lder oxygen saturation, oximetry 98 % Marlene Omeroer respiratory rate E&M 17 /min Marlene Michael escobedo weight E&M 212 [lb_av] Marlene Gruenenfe lder Body Mass Index (Ratio) 35.98 kg/m2 Darrel Underwood FARM MANAGEMENT AGENT weight E&M 205.6 [lb_av] Cynthia Underwood FARM MANAGEMENT AGENT Body Mass Index (Ratio) 37.27 kg/m2 Darrel Underwood FARM MANAGEMENT AGENT weight E&M 213 [lb_av] Cynthia Underwood FARM MANAGEMENT AGENT Body Mass Index (Ratio) 37.13 kg/m2 Darrel Underwood FARM MANAGEMENT AGENT weight E&M 212.2 [lb_av] Cynthia Underwood FARM MANAGEMENT AGENT blood pressure, diastolic 68 mm[Hg] Sh campbell Zepedall FARM MANAGEMENT AGENT blood pressure, systolic 122 mm[Hg] She jaye Underwood FARM MANAGEMENT AGENT Body Mass Index (Ratio) 37.27 kg/m2 Darrel Underwood FARM MANAGEMENT AGENT weight E&M 213 [lb_av] Cynthia Underwood FARM MANAGEMENT AGENT blood pressure, diastolic 72 mm[Hg] Sh campbell Zepedall FARM MANAGEMENT AGENT blood pressure, systolic 122 mm[Hg] She jaye Underwood FARM MANAGEMENT AGENT Body Mass Index (Ratio) 37.27 kg/m2 Darrel Underwood FARM MANAGEMENT AGENT pulse rate 72 /min Cynthia Underwood FARM MANAGEMENT AGENT respiratory rate E&M 18 /min Cynthia Underwood FARM MANAGEMENT AGENT weight E&M 213 [lb_av] Cynthia Underwood FARM MANAGEMENT AGENT blood pressure, diastolic, left arm 82 mm [...] Connors blood pressure, diastolic 71 mm[Hg] Angelica Cononrs blood pressure, systolic 136 mm[Hg] Sherry Connors [...] NP weight E&M 197 [lb_av] Les awan FARM MANAGEMENT AGENT height E&M 63.5 [in_i] Les awan [employer]ARM MANAGEMENT AGENT blood pressure, diastolic 75 mm[Hg] Yordan george [...] % Jose Kline pulse rate 82 /min Joes Kline blood pressure, diastolic 74 mm[Hg] Ra [...] pressure, fisher tolic, second observation 81 mm[Hg] Jsoe Kline blood pressure, syst olic, second observation 142 mm[Hg] Jose Kline oxygen saturation, oximetry 96 % Jose Kline pulse rate 81 /min Jose Kline blood pressure, diastolic 70 mm[Hg] Ra ndy Kline blood pressure, systolic 121 mm[Hg] Ran dy Kline pulse rate #2 90 [facility], fisher tolic, second observation 91 mm[Hg] [facility] blood pressure, syst olic, second observation 153 mm[Hg] [facility] oxygen saturation, oximetry 97 % [facility] pulse rate 87 /min [facility] blood pressure, diastolic 82 mm[Hg] Be [facility] blood pressure, systolic 143 mm[Hg] [facility] pulse rate #2 75 Jose Loreherso [...] Ran dy Kline pulse rate #2 76 Joes McPherso n blood pressure, fisher tolic, second [...] iron binding capacity, unsaturated 216 ug/dL [facility] [phone]/06 /07 iron binding capacity, total 285 ug/dL [facility] [phone]/06 /07 lipoprotein, beta, serum, point, quantitative, calculated 34 mg/dL [facility] 0-99 very low density lipoproteins 21 mg/dL [facility] 5-40 HDL cholesterol, serum 54 mg/dL [facility] >39 triglyceride, serum, random 104 mg/dL [facility] 0-149 cholesterol, serum 109 mg/dL [facility] [phone]/09 /29 pro brain natriuretic peptide 135 pg/mL [facility] 0-450 international normalized ratio (INR) 1.0 [facility] 0.9-1.1 prothrombin time (patient) 9.9 Seconds [facility] 9.0-11.5 platelet count 163 Thousand/uL [facility] [phone]/09 /07 Absolute Basophils 0.0 cells/uL [facility] 0.0-0.2 [...] [facility] 3.5-5.1 sodium, serum 143 mmol/L [facility] [phone]/09 /07 creatinine, serum 0.8 mg/dL [facility] 0.5-0.9 [...] cell distribution width, size density 54.[address] [facility] - immature granulocytes, percentage of total [...] - 3.9 mean platelet volume 12.2 (?) [facility] - platelet count 180.0 THOUSAND/UL [facility] 100.0 [...] - 23.0 blood glucose, random 82.0 mg/dL [facility] 74.0 - 99.0 red blood cell distribution width, size density 48.1 fL [facility] - immature granulocytes, percentage of total cells, blood 0.8 % [facility] - nucleated red blood cells as percent of blood leukocytes 0.0 % [facility] - red blood cell (erythrocyte) count, per [...] triglyceride, target level 150 mg/dL Cynthia Kj [employer]ARM MA[employer]GEMENT AGENT HDL cholesterol, serum, target level 40 mg/dL Cynthia Kj [employer]ARM MANAGEMENT AGENT LDL target level 70 mg/dL Cynthia Muddy [employer]ARM MANAGEMENT AGENT cholesterol, target level 200 mg/dL Cynthia Muddy FARM MANAGEMENT AGENT cholesterol/HDL ratio, serum 3.0 Cynthia Kj [employer]ARM MANAGEMENT AGENT triglyceride, serum, fasting 252 mg/dL Cynthia Muddy [employer]ARM MANAGEMENT AGENT HDL cholesterol, serum 52 mg/dL Cynthia Kj [employer]ARM MANAGEMENT AGENT LDL cholesterol, serum 53 mg/dL Cynthia Kj [employer]ARM MANAGEMENT AGENT cholesterol, serum 155 mg/dL Cynthia Muddy FARM MANAGEMENT AGENT triglyceride, target level 150 mg/dL Cynthia Kj [employer]ARM MANAGEMENT AGENT HDL cholesterol, serum, target level 40 mg/dL Cynthia Muddy FARM MANAGEMENT AGENT LDL target level 70 mg/dL Cynthia Muddy FARM MANAGEMENT AGENT cholesterol, target level 200 mg/dL Cynthia Kj FARM MANAGEMENT AGENT cholesterol/HDL ratio, serum 3.4 Cynthia Muddy FARM MANAGEMENT AGENT triglyceride, serum, fasting 153 mg/dL Cynthia Muddy FARM MANAGEMENT AGENT HDL cholesterol, serum 43 mg/dL Cynthia Muddy FARM MANAGEMENT AGENT LDL cholesterol, serum 71 mg/dL Cynthia Kj [employer]ARM MANAGEMENT AGENT cholesterol, serum 144 mg/dL Cynthia Kj FARM MANAGEMENT AGENT cholesterol/HDL ratio, serum 3.0 Cynthia Kj [employer]ARM MANAGEMENT AGENT triglyceride, serum, fasting 84 mg/dL Cynthia Kj [employer]ARM MANAGEMENT AGENT HDL cholesterol, serum 50 mg/dL Cynthia Muddy FARM MANAGEMENT AGENT LDL cholesterol, serum 84 mg/dL Cynthia Muddy FARM MANAGEMENT AGENT cholesterol, serum 154 mg/dL Cynthia Muddy FARM MANAGEMENT AGENT TOTAL NON-HDL-C (LDL VLDL) 140 Cynthia Muddy FARM MANAGEMENT AGENT cholesterol/HDL ratio, serum 4.9 Cynthia Kj FARM MANAGEMENT AGENT cholesterol, serum 176 mg/dL Cynthia Muddy FARM MANAGEMENT AGENT Normal triglyceride, target level 150 mg/dL Cynthia Muddy [employer]ARM MANAGEMENT AGENT HDL cholesterol, serum, target level 40 mg/dL Cynthia Muddy [employer]ARM MANAGEMENT AGENT triglyceride, serum, fasting 202 mg/dL Cynthia Kj FARM MANAGEMENT AGENT High HDL cholesterol, serum 36 mg/dL Cynthia Muddy FARM MANAGEMENT AGENT Low LDL cholesterol, serum 100 mg/dL Cynthia Muddy FARM MANAGEMENT AGENT High LDL target level 70 mg/dL Cynthia Kj FARM MANAGEMENT AGENT cholesterol, target level 200 mg/dL Cynthia Muddy FARM MANAGEMENT AGENT triglyceride, target level 150 mg/dL Cynthia Muddy [employer]ARM MANAGEMENT AGENT HDL cholesterol, serum, target level 40 mg/dL Cynthia Muddy [employer]ARM MANAGEMENT AGENT LDL target level 70 mg/dL Cynthia Muddy FARM MANAGEMENT AGENT cholesterol, target level 200 mg/dL Cynthia Muddy FARM MANAGEMENT AGENT TOTAL NON-HDL-C (LDL VLDL) 142 Cynthia Muddy FARM MANAGEMENT AGENT cholesterol/HDL ratio, serum 5.3 Cynthia Muddy FARM MANAGEMENT AGENT triglyceride, serum, fasting 229 mg/dL Cynthia Kj FARM MANAGEMENT AGENT High HDL cholesterol, serum 33 mg/dL Cynthia Muddy FARM MANAGEMENT AGENT Low LDL cholesterol, serum 96 mg/dL Cynthia Kj FARM MANAGEMENT AGENT High cholesterol, serum 175 mg/dL Cynthia Muddy FARM MANAGEMENT AGENT TOTAL NON-HDL-C (LDL VLDL) 129 Cynthia Muddy FARM MANAGEMENT AGENT cholesterol/HDL ratio, serum 4.2 Cynthia Muddy FARM MANAGEMENT AGENT cholesterol, serum 169 mg/dL Cynthia Muddy FARM MANAGEMENT AGENT triglyceride, target level 150 mg/dL Cynthia Muddy FARM MANAGEMENT AGENT HDL cholesterol, serum, target level 40 mg/dL Cynthia Muddy [employer]ARM MANAGEMENT AGENT triglyceride, serum, fasting 187 mg/dL Cynthia Muddy FARM MANAGEMENT AGENT High HDL cholesterol, serum 40 mg/dL Cynthia Kj FARM MANAGEMENT AGENT Normal LDL cholesterol, serum 92 mg/dL Cynthia Muddy FARM MANAGEMENT AGENT High LDL target level 70 mg/dL Cynthia Kj FARM MANAGEMENT AGENT cholesterol, target level 200 mg/dL Cynthia Kj FARM MANAGEMENT AGENT TOTAL NON-HDL-C (LDL VLDL) 99 Cynthia Muddy FARM MANAGEMENT AGENT cholesterol/HDL ratio, serum 3.9 Cynthia Kj FARM MANAGEMENT AGENT cholesterol, serum 131 mg/dL Cynthia Muddy FARM MANAGEMENT AGENT Normal triglyceride, target level 150 mg/dL Cynthia Muddy FARM MANAGEMENT AGENT HDL cholesterol, serum, target level 40 mg/dL Cynthia Muddy FARM MANAGEMENT AGENT triglyceride, serum, fasting 341 mg/dL Cynthia Muddy FARM MANAGEMENT AGENT High HDL cholesterol, serum 34 mg/dL Cynthia Kj FARM MANAGEMENT AGENT Low LDL cholesterol, serum 30 mg/dL Cynthia Kj FARM MANAGEMENT AGENT Normal LDL target level 70 mg/dL Cynthia Kj FARM MANAGEMENT AGENT cholesterol, target level 200 mg/dL Cynthia Muddy FARM MANAGEMENT AGENT TOTAL NON-HDL-C (LDL VLDL) 99 Cynthia Muddy FARM MANAGEMENT AGENT alanine aminotransferase (SGPT), serum 39 1/L Cynthia Muddy FARM MANAGEMENT AGENT aspartate aminotransferase (SGOT), serum 55 1/L Cynthia Muddy FARM MANAGEMENT AGENT cholesterol/HDL ratio, serum 3.8 Cynthia Muddy FARM MANAGEMENT AGENT cholesterol, serum 134 mg/dL Cynthia Kj FARM MANAGEMENT AGENT Normal triglyceride, target level 150 mg/dL Cynthia Kj FARM MANAGEMENT AGENT HDL cholesterol, serum, target level 40 mg/dL Cynthia Kj FARM MANAGEMENT AGENT triglyceride, serum, fasting 152 mg/dL Cynthia Kj FARM MANAGEMENT AGENT High HDL cholesterol, serum 36 mg/dL Cynthia Muddy FARM MANAGEMENT AGENT Low LDL cholesterol, serum 68 mg/dL Cynthia Kj [employer]ARM MANAGEMENT AGENT Normal LDL target level 70 mg/dL Cynthia Zepedall FARM MANAGEMENT AGENT cholesterol, target level 200 mg/dL Cynthia Underwood FARM MANAGEMENT AGENT platelet count 164 10*3/mm3 [facility] hematocrit, blood 34.6 % [facility] lipoprotein, beta, serum, point, quantitative, calculated 77 mg/dL [facility] cholesterol, serum 144 mg/dL [facility] creatinine, serum 0.60 mg/dL [facility] potassium, serum 5.1 mmol/L [facility] sodium, serum 137 mmol/L [facility] thyroid stimulating hormone, serum 1.595 u[IU]/mL [facility] thyroxine, serum, free 0.15 ng/dL [facility] triiodothyronine (T3), serum 233.0 ng/dL [facility] globulins, serum, total 4.3 g/dL [facility] estimated glomerular filtration rate 91.3 mL/min [facility] albumin/globulin ratio, serum 0.9 [facility] protein, total, serum 8.3 g/dL [facility] albumin, serum 4.0 g/dL [facility] bilirubin, serum, total 0.4 mg/dL [facility] alkaline phosphatase, serum 60 1/L [facility] alanine aminotransferase (SGPT), serum 57 1/L [facility] aspartate aminotransferase (SGOT), serum 67 1/L [facility] calcium, serum 9.1 mg/dL [facility] blood glucose, fasting 175 mg/dL [facility] creatinine, serum 0.7 mg/dL [facility] urea nitrogen, blood 23 mg/dL [facility] carbon dioxide, serum, total 28 mmol/L [facility] chloride, serum 105 mmol/L [facility] potassium, serum 4.3 mmol/L [facility] sodium, serum 136 mmol/L [facility] TOTAL NON-HDL-C (LDL VLDL) 120 Lacretijohnny BlairCarpenter NP alanine aminotransferase (SGPT), serum 30 1/[facility] aspartate [facility]otransferase ([facility]OT), serum 36 1/L [facility] cholesterol/HDL ratio, serum 4 Lacretijohnny BlairCarpenter NP triglyceride, serum, fasting 167 mg/dL [facility], serum 40 mg/dL [facility] LDL cholesterol, serum 86 mg/dL [facility] cholesterol, serum 159 mg/dL [facility] triglyceride, target level 150 mg/dL [facility] HDL cholesterol, serum, target level 40 mg/dL [facility] LDL target level 70 mg/dL [facility] cholesterol, target level 200 mg/dL [facility] creatine kinase, serum <0.2 [facility] Estimated Glomerular Filtration Rate (calc) >60 [facility] calcium, serum 9.1 mg/dL [facility] creatinine, serum 0.50 mg/dL [facility] urea nitrogen, blood 23 mg/dL [facility] carbon dioxide, serum, total 28 mmol/L [facility] chloride, serum 100 mmol/L [facility] potassium, serum 4.4 mmol/L [facility] sodium, serum 138 mmol/L [facility] troponin I <0.02 [facility] triglyceride, serum, fasting 121 mg/dL [facility] HDL cholesterol, serum 46 mg/dL [facility] LDL cholesterol, serum 103 mg/dL [facility] cholesterol, serum 175 mg/dL [facility] PTT patient 25 s [facility] prothrombin time (patient) 12.7 s [facility] international normalized ratio (INR) 1.0 [facility] platelet count 202 10*3/uL [facility] red blood cell distribution width 13.3 % [facility] mean corpuscular hemoglobin concentration, RBC 34.0 g/dL [facility] mean corpuscular hemoglobin, RBC 29.9 pg [facility] mean corpuscular volume, RBC 87.9 fL [facility] hematocrit, blood 35.4 % [facility] hemoglobin, blood 12.1 g/dL [facility] erythrocyte (RBC) count 4.03 10*6/mm3 [facility] monocyte count, blood 0.3 10*3/mm3 [facility] lymphocyte count, blood 2.2 10*3/mm3 [facility] monocytes as percent of blood leukocytes 4.7 % [facility] lymphocytes as percent of blood leukocytes 32.7 % [facility]ina leukocyte count, blood 6.8 10*3/mm3 [facility] nitrate usage 0 Sarah Welch [...] mouth once a day 04/21 - 10/28 Davdi Vanegas MD Invokana 100 mg tablet completed [...] AEROSOL completed as directed - 08/02 David aVnegas MD metoprolol succinate 25 mg tablet extended [...] ONE TAB. DAILY 09/09 - 03/27 Marlene Sanuders BACLOFEN 10 MG ORAL TABLET completed 1 [...] TAB. DAILY 09/20 - 08/04 Cynthia Underwood FARM MANAGEMENT AGENT FEMHET completed 03/03 tab one tab daily [...] 5 mg twice daily - 08/06 Melissa [place]ton NEXIUM 40 MG ORAL CAPSULE DELAYED RELEASE [...] MD smoking history, tot al pack/day 1 Dvaid Vanegas MD cigarette use yes David Vanegas MD smoking status Former smoker David turner MD drug use no Isabel Ventimig della [facility] alcohol use no Isabel Ventimig della [facility] smoking status Former smoker Isabel Venti miglia [facility] social history E&M Marital Statu s: L [...] Fran chewing tobacco use Never Catherin e Fran smoking, year quit 1997 [place] smoking history, tot al pack/year 35 Ting Fran smoking history, tot al pack/day 1 Ting Fran cigarette use yes Ting Fran smoking status Former smoker Ting Ot is [...] Ileana chewing tobacco use Never Cynthia lewislouis [employer]ARM MANAGEMENT AGENT smoking status Former smoker Cynthia Zepeda marcus [employer]ARM MANAGEMENT AGENT social history E&M Marital Statu s: L [...] [place] smoking status Former smoker Cynthia velazquez FARM MANAGEMENT AGENT smoking/tobacco cess ation, patient education and counseling yes Cynthia Underwood [employer]ARM MANAGEMENT AGENT smoking status Former smoker Cynthia velazquez FARM MANAGEMENT AGENT quit smoking, stage quit David winslow MD [...] average drinks per day social basis only [facility] FUNCTIONAL STATUS Date Observation Value Provider [...] level yes [place] Tebid energy level yes [place] Tebid energy level yes [place] Teb[place] energy level yes [place] Tebid energy level yes [place] Tebid energy level yes [place] Tebid energy level yes [place] Tebid energy level yes [place] Tebid energy level yes Chayo Tebid energy level yes Chayo Tebid energy level yes Chayo Tebid energy level yes [place]ayo Tebid energy level yes [place] Tebid energy level yes Chayo Tebid energy level yes [place] Tebid energy level yes Chayo Tebid energy level yes Chayo Tebid energy level yes [place] Tebid energy level yes [place] Tebid energy level yes [place] Tebid energy level yes [place] Tebid energy level yes [place] Tebid energy level yes [place] Tebid energy level yes [place] Tebid energy level yes [place] Tebid energy level yes [place] Tebid energy level yes [place] Tebid energy level yes [place] Tebid energy level yes [place] Tebid energy level yes [place] Tebid energy level yes [place] Tebid energy level no [place] Tebid energy level no [place] Tebid energy level no [place] Tebid assessment of judgme nt and insight [...] Payer name Policy type / Coverage type [place] [employer] ID MEDIC[place] SECOND[place] [id number] [facility] [id number] ADVANCE DIRECTIVES Name Date DISCUSSED - NO DECISION MADE TREATMENT PLAN Date Name Performer [id number],C,nayeli cannon MD [id number],S,weight loss e ncouraged. [facility] [id number],S, H er updated medication list for this problem includes: Atorvastatin 40 Mg Tablet (Atorvastatin) ..... Take 1 tablet daily at bedtime [facility] [id number],C,B P well controlled per home RPM average [...] once a day take 1 tablet daily [facility] [id number],S,H as CPAP and is compliant. concern that needs updated settings given progressive SOB. Will repeat IHS on CPAP [facility] [id number],C,W ith EF of 65%. Has been unable to tolerate Jardiance. Remains on diuretic. Her BP is well controlled. Will plan [facility] study to see if helps with [...] day take 1 tablet daily Isabel Frankel [facility] [id number],S,O nly mild on recent echo. Will monitor. Isabel Frankel [facility] [id number],W,H as had ongoing progressive SOB that is [...] proper settings. We will also refer for [facility] study H er updated medication list [...] day take 1 tablet daily Isabel Frankel [facility] [id number],C,7.4 David cannon MD [id number],B, David turner MD [id number],S, 5 5 David Vanegas MD [id number],S, H eart monitor revealed no arrythmias. SR with no ectopy, pauses. neg hep [place] n eg neg vd for edma David Jacquesa [id number],S, a bi less then .6 with cladicoiatn d ista dz by angio David Jacquesjohnny HANSON [id number],S, n eg rpr and b12 David Jacquesa [id number],S, 1 100 David Jacquesa [id number],S, David Serot a [id number],S, s core 110 N o angina 3 0% distal lad David Jacquesjohnny HANSON [id number],B, s tii; anemic on iron H AD INFUSIN AND RESOVLED N, HAD COLON, David Jacquesjohnny HANSON [id number],S, David Serot a [id number],S,d ue to ms? 2 97 David Vanegas [id number],S, m odeated ms and midl mr David Vanegas [id number],C,modeated ms a nd midl mr David Vanegas [id number],S,8.2 Daivd Se rota [id number],S, David Serot a [id number],S, 2 97 David Jacquesa [id number],S, H eart monitor revealed no arrythmias. SR with no ectopy, pauses. neg hep [place] n eg neg vd for edma David Vanegas [id number],S, n eg rpr and b12 David Jacquesa [id number],S, a bi less then .6 with cladicoiatn d ista dz by angio David Jacquesjohnny HANSON [id number],S, David Serot a [id number],S, M oderate MS , Mild MR. on echo 03/2021. repeat next year David Vanegas MD [id number],S, s core 110 N o angina 3 0% distal lad David Vanegas MD [id number],B, s tii; anemic on iron H AD INFUSIN AND RESOVLED N, HAD COLON, David Serotjohnny HANSON [id number],S, David Serot a [id number],B, s tii; anemic on iron H AD INFUSIN AND RESOVLED N, HAD COLON, David Romina HANSON [id number],S,8.2 David cannon MD [id number],B,55 David Ser joselin HANSON [id number],S, n eg rpr and b12 David Vanegas MD [id number],S, David Serot a [id number],S,s tii; anemic on iron H AD INFUSIN AND RESOVLED N, HAD COLON, David Romina HANSON [id number],C,6.7 David cannon MD [id number],S,a bi less then .6 with cladicoiatn d ista dz by angio David Vanegas MD [id number],S,s core 110 N o angina 3 0% distal lad David Vanegas MD [id number],S, H eart monitor revealed no arrythmias. SR with no ectopy, pauses. neg hep [place] n eg neg vd for edma ,neg uiacr David Vanegas MD [id number],B, H eart monitor revealed no arrythmias. SR with no ectopy, pauses. David Vanegas MD [id number],S, 2 97 David Vanegas MD [id number],S,efgr 45 Sima Vanegas MD [id number],S, M oderate MS , Mild MR. on echo 03/2021. repeat next year David Vanegas MD [id number],C, 5 .8 F arxiga too expensive, invokana diarhrrea. was on jardiance in the past but thinks she had a reaction as well. C urrently on metformin and insulin Ella Orr NP [id number],C,s tart kerendia H er updated medication list for this problem includes: Metoprolol Succinate 25 Mg Tablet Extended Release 24 Hr (Metoprolol succinate) ..... Take 1 tablet daily Aspirin 81 Mg Tablet,delayed Release (dr/ec) (Aspirin) ..... Take 1 tablet daily Ella Orr NP [id number],C,N o angina 3 0% distal lad Ella Orr NP [id number],C,M oderate MS , Mild MR. on echo 03/2021. repeat next year Ellatito Orr NP [id number],C,H eart monitor revealed no arrythmias. SR with no ectopy, pauses. Ella Orr NP [id number],C,mod ms with m ild mr David Vanegas MD [id number],S, David turner MD [id number],S, r echeck echo to eval David Vanegas MD [id number],S,297 David cannon MD [id number],S,1100 David S goldy [id number],S,n eg hep [place] n eg neg vd for edma ,neg uiacr David Vanegas MD [id number],C,5.8 David cannon MD [id number],C,dista dz by a peri Vanegas MD [id number],B,andersojn bb increaed David Vanegas MD [id number],S, n eg rpr and b12 David Vanegas MD [id number],S, David turner MD [id number],S, F ollows with pulmonary David Vanegas MD [id number],S, 3 0% distal lad David Vanegas MD Cardiology:8 David Vanegas MD Cardiology: H eart monitor revealed no arrythmias. SR with no ectopy, pauses. n eg neg vd for edma David Vanegas MD Cardiology:mild to m od ms by shawanda at cne 24, mid mr and mr David Vanegas MD Cardiology David Vaneags MD Cardiology David Vanegas MD Cardiology: a [...] sherman , ms pregresson by echo at [facility] ms and rm bye shawanda [...] titration:nayeli turner MD Cardiology:weight loss encourage d. [facility] Cardiology: H er updated medication list for this problem includes: Atorvastatin 40 Mg Tablet (Atorvastatin) ..... Take 1 tablet daily at bedtime [facility] Cardiology:BP well c ontrolled per home [...] once a day take 1 tablet daily [facility] Cardiology:Has CPAP and is compliant. concern that needs updated settings given progressive SOB. Will repeat [facility]HS on CPAP [facility] Cardiology:With EF o f 65%. Has been unable to tolerate Jardiance. Remains on diuretic. Her BP is well controlled. Will plan [facility] study to see if helps with [...] once a day take 1 tablet [facility] Cardiology:Only mild on recent e cho. Will monitor. [facility] Cardiology:Has had o ngoing progressive SOB [...] day take 1 tablet daily Isabel Frankel WORD PROCESSING SPECIALIST Cardiology:7.4 David Vanegas MD Cardiology David Vanegas [...] SR with no ectopy, pauses. neg hep sh[place] n eg neg vd for edma David [...] next year David Vanegas MD Cardiology-seen with FARM MANAGEMENT AGENT: 5 .8 F arxiga too expensive, invokana diarhrrea. was on jardiance in the past but thinks she had a reaction as well. C urrently on metformin and insulin Ella Orr NP Cardiology-seen with FARM MANAGEMENT AGENT:sherri jay updated medication list for this problem includes: Metoprolol Succinate 25 Mg Tablet Extended Release 24 Hr (Metoprolol succinate) ..... Take 1 tablet daily Aspirin 81 Mg Tablet,delayed Release (dr/ec) (Aspirin) ..... Take 1 tablet daily Ella Orr NP Cardiology-seen with FARM MANAGEMENT AGENT:No angina 3 0% distal lad Ella Orr NP Cardiology-seen with FARM MANAGEMENT AGENT:Moderate MS , Mild MR. on echo 03/2021. repeat next year Ella Orr NP Cardiology-seen with FARM MANAGEMENT AGENT:Heart monitor revealed no arrythmias. SR with no [...] daily at bedtime Lovaza 1 Gm Caps (Bllbb-7-myhw ethyl esters) ..... 2 capsules daily David Vanegas MD Cardiology - FARM MANAGEMENT AGENT ramon jones:Patient's endocrine MD had placed her [...] breath, fatigue, dizziness, nausea, or diaphoresis) of [place] Cardiovascular Society Class III (defined as symptoms with everyday living activities, i.e. moderate limitation) or [place] Cardiovascular Society Class IV (defined as inability [...] this problem includes: Lovaza 1 Gm Caps (Fcpyy-5-cbpb ethyl esters) ..... 2 capsules daily C [...] this problem includes: Lovaza 1 Gm Caps (Wuvkv-7-jjdo ethyl esters) ..... 2 capsules daily C [...] this problem includes: Lovaza 1 Gm Caps (Qxszh-7-jyqa ethyl esters) ..... 2 capsules daily C [...] this problem includes: Lovaza 1 Gm Caps (Stnmg-8-aeoi ethyl esters) ..... 2 capsules daily Cynthia [...] this problem includes: Lovaza 1 Gm Caps (Jdpgx-2-ielt ethyl esters) ..... 2 capsules daily Cynthia [...] this problem includes: Lovaza 1 Gm Caps (Fqipp-9-kzug ethyl esters) ..... 2 capsules daily Cynthia [...] this problem includes: Lovaza 1 Gm Caps (Iicrx-4-mwiz ethyl esters) ..... 2 capsules daily Patient [...] daily Orders: Full PFT (*) S pirometry (CPT-27141) C omplete Echo (CPT-39084) e Prescribe - Check this box if eRx is used (CPT-G8553) E CP Commercial (CPT-89566) David Vanegas MD follow up David Vanegas MD follow up: O rders: F ull PFT (*) S pirometry (CPT-05556) C omplete Echo (CPT-52021) e Prescribe - Check this box if eRx is used (CPT-G8553) E CP Commercial (CPT-25588) David Vanegas MD follow up: T he following medications were removed from the medication list: Aspirin 81 Mg Tabs (Aspirin) ..... One tab. daily Her updated medication list for this problem includes: Atenolol 25 Mg Tabs (Atenolol) ..... One tab. daily Orders: F ull PFT (*) S pirometry (CPT-81621) C omplete Echo (CPT-66389) e Prescribe - Check this box if eRx is used (CPT-G8553) E CP Commercial (CPT-36710) David Vanegas MD follow up David Vanegas MD follow up David Vanegas MD follow up: O rders: F ull PFT (*) S pirometry (CPT-59078) C omplete Echo (CPT-09954) e Prescribe - Check this box if eRx is used (CPT-G8553) E CP Commercial (CPT-17902) David Vanegas MD follow up: T he following medications were removed from the medication list: Aspirin 81 Mg Tabs (Aspirin) ..... One tab. daily Her updated medication list for this problem includes: Atenolol 25 Mg Tabs (Atenolol) ..... One tab. daily Orders: F ull PFT (*) S pirometry (CPT-81843) C omplete Echo (CPT-02558) e Prescribe - Check this box if eRx is used (CPT-G8553) E CP Commercial (CPT-34990) David Vanegas MD follow up: O rders: F ull PFT (*) S pirometry (CPT-62820) C omplete Echo (CPT-57204) e Prescribe - Check this box if eRx is used (CPT-G8553) E CP Commercial (CPT-84606) David Vanegas MD follow up: H er [...] ..... One tab. daily David Vanegas MD [facility] only, use bare metal stent David Vanegas MD [facility] only, use bare metal stent: H er updated medication list for this problem includes: Liothyronine Sodium 25 Mcg Tabs (Liothyronine sodium) ..... Take one tablet twice daily David Vanegas MD [facility] only, use bare metal stent David Vanegas MD [facility] only, use bare metal stent David Vanegas MD [facility] only, use bare metal stent: H [...] follow up David Vanegas MD follow up aDvid Vanegas MD follow up David Vanegas MD follow up: O rders: C ardiopulmonary Stress Test (CPT-87037) E CP Commercial (CPT-41972) C omplete Echo (CPT-73882) S tress Test - Adenosine (22216) David Vanegas MD follow up: O rders: C ardiopulmonary Stress Test (CPT-48198) E CP Commercial (CPT-51640) C omplete Echo (CPT-69776) S tress Test - Adenosine (70855) David Vanegas MD follow up David Vanegas MD follow up David Vanegas MD follow up David Vanegas MD follow up David Vanegas MD follow up David Vanegas MD follow up: O rders: C ardiopulmonary Stress Test (CPT-02678) E CP Commercial (CPT-59265) C omplete Echo (CPT-26127) S tress Test - Adenosine (38383) David Vanegas MD follow up: H er [...] ormal pulmonic valve. (10/19/2007) Orders: S pirometry (CPT-99421) C omplete Echo (CPT-40118) S tress Test - Adenosine (56747) David Vanegas MD follow up: B P [...] (Atenolol) ..... One tab. daily Orders: Spirometry (CPT-56575) C omplete Echo (CPT-07238) S tress Test - Adenosine (22569) David Vanegas MD follow up David Vanegas MD follow up: O rders: S pirometry (CPT-49287) C omplete Echo (CPT-50576) S tress Test - Adenosine (95354) David Vanegas MD follow up: H er [...] Normal pulmonic valve. (10/19/2007) Orders: S pirometry (CPT-28353) C omplete Echo (CPT-43568) S tress Test - Adenosine (39537) David Vanegas MD follow up: O rders: S pirometry (CPT-60842) C omplete Echo (CPT-84275) S tress Test - Adenosine (92525) David Vanegas MD follow up: H er updated medication list for this problem includes: Aspirin 81 Mg Tabs (Aspirin) ..... One tab. daily Atenolol 25 Mg Tabs (Atenolol) ..... One tab. daily Orders: Spirometry (CPT-99655) C omplete Echo (CPT-67071) S tress Test - Adenosine (91322) David Vanegas MD follow up: H er [...] Cl: 100 (07/25/2010) O rders: S pirometry (CPT-26222) C omplete Echo (CPT-65828) S tress Test - Adenosine (54355) David Vanegas MD follow up: H er [...] P TT: 25 (07/25/2010) Orders: S pirometry (CPT-22885) C omplete Echo (CPT-25943) S tress Test - Adenosine (92369) David Vanegas MD follow up David Vanegas [...] Vanegas MD routine: O rders: E KG (CPT-95844) David Vanegas MD routine David Vanegas MD routine: H er updated medication list for this problem includes: Aspirin 81 Mg Tabs (Aspirin) ..... One tab. daily Atenolol 25 Mg Tabs (Atenolol) ..... One tab. daily David Vanegas MD routine David Vanegas MD routine David Vanegas MD ECP gzbhmo-ga-uqn pa in greater in right: H er updated medication list for this problem includes: Levothroid 150 Mcg Tabs (Levothyroxine sodium) ..... 1 tablet dailly David Vanegas MD ECP nvdnrj-ff-jjs pa in greater in right: H er [...] BP: 125/71 (07/07/2008) David Vanegas MD ECP fnegmx-kr-bea pa in greater in right: H er [...] filling pressures. (11/26/2003) David Vanegas MD ECP dzfuon-ez-pqd pa in greater in right: H er [...] ormal pulmonic valve. (10/19/2007) Orders: E KG (CPT-07368) David Vanegas MD ECP cpvmhs-fb-npd pa in greater in right: H er updated medication list for this problem includes: Atenolol 25 Mg Tabs (Atenolol) ..... One tab. daily Aspirin 81 Mg Tabs (Aspirin) ..... One tab. daily BP today: 128/78 P rior BP: 125/71 (07/07/2008) David Vanegas MD ECP kaqfsh-qp-brb pain greater i n right David Vanegas MD ECP rlgtar-kr-myd pa in greater in right: H er updated medication list for this problem includes: Lescol Xl 80 Mg Tb24 (Fluvastatin sodium) ..... 1 tablet daily BP today: 128/78 Prior BP: 125/71 (07/07/2008) David Vanegas MD ECP tfnunp-vf-alx pain greater i n right David Vanegas MD ECP qowwhn-tp-yph pa in greater in right: H er [...] daily Orders: H olter Monitor 24 Hr (CPT-28031) BP today: 138/80 Prior BP: / () [...] Orders: X -Ray, Chest, PA & Lateral (CPT-88862) H olter Monitor 24 Hr (CPT-68980) David Vanegas MD rattle : B P [...] pressure of 18mmHg. (10/26/2006) Orders: E KG (CPT-79142) E CP Commercial (CPT-13277) C omplete Echo (CPT-09093) BP today: 138/80 Prior BP: / () [...] Echo Sleep Study Titratio n DLCO - 64310 FRC - 30468 FVC - 80639 Stress Cardiac PET-C T Complete Echo Stress [...] Cath - Right - [facility] DLCO - 93777 FRC - 74539 FVC - 93977 PROTHROMBIN TIME WIT H INR CBC (INCLUDES [...] completed FVC / MVV with bronchodilator - 93013 David Vanegas MD completed BLOOD COUNT HEMOGLOBIN David Vanegas MD completed FRC - 53840 David Vanegas MD complet ed SpO2 w/o 6min walk/titration David Vanegas MD completed DLCO - 09660 David Vanegas MD comple roxanne EKG David Vanegas MD complete d EKG David Vanegas MD complete d EKG David Vanegas MD complete d EKG David Vanegas MD complete d EKG David Vanegas MD complete d SNOMED-CT: 670346525 536438 Current Medications Documented David Vanegas MD completed FVC / MVV with bronchodilator - 10185 David Vanegas MD completed BLOOD COUNT HEMOGLOBIN David Vanegas MD completed FRC - 14718 David Vanegas MD complet ed SpO2 - 77057 David Vanegas MD comple roxanne DLCO - 38925 David Vanegas MD comple roxanne SNOMED-CT: [id number] 720530 Current Medications Documented David Vanegas MD completed CT- Coronary CA score David Vanegas MD completed EKG David Vanegas MD complete d SNOMED-CT: 923092908 790455 Current Medications Documented David Vanegas MD completed SNOMED-CT: 044318490 474388 Current Medications Documented David Vanegas MD completed SNOMED-CT: 08917216 Physical Exam, Performed: Pulse Exam of Foot David Vanegas MD completed EKG David Vanegas MD complete d SNOMED-CT: 640387880 481470 Current Medications Documented David Vanegas MD completed SNOMED-CT: 21089308 Physical Exam, Performed: Pulse Exam of Foot David Vanegas MD completed EKG Dvaid Vanegas MD complete d SNOMED-CT: 218430467 183830 Current Medications Documented David Vanegas MD completed [...]
--- OUTSIDE RECORDS SUMMARY | 2024-07-17 13:03 | XMS_ITS | Encounter Summary ---
Author Organization [facility] Address 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 [address] [place] [address] Ray Richards MD [address] [facility] [address] [place] [address] documented as of this encounter Visit Diagnoses Diagnosis Unspecified hearing loss documented in this encounter Care Teams Sociology Teacher Relationship Specialty Start Date End Date Charles Armendariz DO [address] [facility] [address] [place] [address] PCP - General Internal Medicine 11/04/22 documented as of this encounter
--- OUTSIDE RECORDS SUMMARY | 2024-07-17 13:03 | XMS_ITS | Clinical Summary ---
Author Organization [facility] Address [address] [place] [address] Care Team Providers Care Car Lot Attendant Name Role Phone Charles Armendariz DO Primary Care Provider [phone] David Vanegas MD Unavailable [phone] Allergies Active Allergy Reactions Criticality Noted Date Comments Ciprofloxacin Nausea only Low 09/08/2022 Daptomycin Diarrhea Low 06/29/2020 Doxycycline Unknown Low 09/19/2019 Canagliflozin Diarrhea Low 10/28/2021 Empagliflozin Diarrhea Low 04/21/2021 Lisinopril Cough Low 08/13/2018 Semaglutide Diarrhea High 01/27/2021 Povidone-Iodine Rash Medium 05/05/2017 Kxpicny-Yat-Juf Reductase Inhibitors Muscle pain Medium 11/05/2020 Valsartan [...] total) by mouth every morning Activ e rf-svldcgb-sfq -iron fm-FA-vitK 18 mg-400 mcg- 25 mcg [...] Active nitrofurantoin monohydrate (MACROBID) 100 mg capsule 08/09/19 24 Active aspirin 81 mg enteric coated tablet Take 1 tablet (81 mg total) by mouth daily Active glimepiride (AMARYL) 4 mg tabletIndicati ons:Type 2 diabetes mellitus with hyperglycemia, with long-term current use of insulin (HCC) Take 1 tablet (4 mg total) by mouth 2 (two) times a day after breakfast and dinner 180 tablet 3 10/24/19 24 2024 Active metFORMIN (GLUCOPHAGE) 1,000 mg tabletIndicati ons:Type 2 diabetes mellitus with hyperglycemia, with long-term current use of insulin (HCC) TAKE 1 TABLET BY MOUTH TWICE DAILY WITH MEALS 180 tablet 3 01/08/20 24 Active pyridoxine (VITAMIN B-6) 50 mg tablet Take 1 tablet (50 mg total) by mouth daily 30 tablet 5 01/01/20 24 Active magnesium oxide (MAG-OX) 400 mg (241.3 [...] DAILY 90 each 1 05/25/19 25 Active traMADoL (ULTRAM) 50 mg tablet 07/11/19 25 Active leflunomide (ARAVA) 20 mg tablet Take 1 tablet (20 mg total) by mouth daily 90 tablet 07/12/19 25 Active ciprofloxacin (CIPRO) 500 mg tablet TAKE 1 TABLET BY MOUTH TWICE DAILY FOR SYMPTOMS OR UTI 08/26/19 23 Discontin ued(Aller gic response) isoniazid (NYDRAZID) 300 mg tabletIndicati ons:Mycobacter iosis Take 1 tablet (300 mg total) by mouth daily 30 tablet 5 01/01/20 24 2024 leflunomide (ARAVA) 20 mg tablet Take 1 tablet (20 mg total) by mouth daily 90 tablet 05/30/19 25 2024 Discontin ued(Reord er) Active Problems Problem Noted [...] symptoms. Assessment & Plan (03/15/2024 10:09 AM HAND POTTER): - Doing well on INH/B6 for LTBI, [...] 10/24/2023 Assessment & Plan (04/30/2024 2:13 PM HAND POTTER): Chronic problem. Currently taking Atorvastatin 40mg. Last lipid panel: 03/09/23 LDL=37 TD=859. Will update labs. Does not mychart. Verified phone #/address to contact re: results. Assessment & Plan (10/24/2023 3:19 PM CDT): Chronic problem. Currently taking Atorvastatin 40mg. Last lipid panel: 03/09/23 LDL=37 WT=915. Positive TB test 09/19/2023 Assessment & Plan (01/01/2024 12:37 PM HAND POTTER): - Unable to tolerate rifabutin as she [...] CBC and CMP in 1 month at [facility] - Ok to start biologic for rheumatoid arthritis after she has been on rifabutin for 1 month. Will forward note to rheumatology Class 2 severe obesity due t o excess calories with serious comorbidity and body mass index (BMI) of 39.0 to 39.9 in adult 03/09/2023 Assessment & Plan (03/09/2023 10:05 AM HAND POTTER): Discussed healthy diet and importance of regular [...] 03/22/2022 Assessment & Plan (03/22/2022 8:59 AM HAND POTTER): Chronic problem, stable. Discussed healthy diet and [...] (07/02/2020): Added automatically from request for surgery [id number] Median neuropathy, left 11/19/2019 Overview (11/19/2019): Added automatically from request for surgery [id number] Ulnar neuropathy of left upper extremity 020 Overview (11/19/2019): Added automatically from request for surgery [id number] Anxiety 05/24/2019 Asthma 05/24/2019 Brachial neuritis 05/24/2019 Major depressive disorder 05/24/2019 Gastroesophageal reflux disease without esophagi tis 05/24/2019 Gout 05/24/2019 Spleen hematoma 05/24/2019 Osteoarthritis 05/24/2019 Primary localized osteoarthrosis of shoulder reg ion 05/24/2019 Recurrent dislocation of shoulder region 020 Hypothyroidism 04/10/2019 Assessment & Plan (04/30/2024 2:14 PM HAND POTTER): Chronic problem. Currently taking levothyroxine 100mcg. Clinically [...] 1.23 Assessment & Plan (03/09/2023 9:54 AM HAND POTTER): Chronic problem. Currently taking levothyroxine 100mcg. 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 Currently taking Gabapentin 300mg bid. [...] barefoot. Assessment & Plan (03/09/2023 9:47 AM HAND POTTER): Chronic problem. Currently taking gabapentin. Aware to check feet nightly & not go barefoot. Assessment & Plan (09/08/2022 11:14 AM CDT): Chronic problem. Currently taking gabapentin. Aware to check feet nightly. Assessment & Plan (03/21/2022 8:54 AM HAND POTTER): Chronic problem. Currently taking gabapentin. Aware to check feet nightly. Assessment & Plan (05/13/2021 10:51 AM CDT): Foot care discussed Assessment & Plan (11/05/2020 2:29 PM CDT): Foot care discussed The patient does not feel that Neurontin helps of will discontinue Assessment & Plan (04/02/2020 1:40 PM HAND POTTER): On Neurontin Foot care discussed Assessment & Plan (10/19/2017 10:52 AM CDT): Foot care discussed On neurointin Advised on seeing foot dr. Hyperlipidemia 10/19/2017 Assessment & Plan (03/09/2023 9:48 AM HAND POTTER): Chronic problem. Current on atorvastatin 40mg daily. Last lipid panel: 11/04/21 LDL=26, OO=459. Will update labs today. Does not mychart. Verified phone #/address to contact re: results. Assessment & Plan (09/08/2022 11:14 AM CDT): Chronic problem. Current on atorvastatin 40mg daily. 11/04/21 LDL=26. No changes. Assessment & Plan (03/21/2022 8:53 AM HAND POTTER): Chronic problem. Current on atorvastatin 40mg daily. [...] Lipitor Assessment & Plan (04/02/2020 1:37 PM HAND POTTER): Goal of treatment , LDL cholesterol less [...] therapy. Assessment & Plan (03/12/2019 12:24 PM HAND POTTER): Goal of treatment , LDL cholesterol less [...] 01/17/2017 Assessment & Plan (04/30/2024 2:42 PM HAND POTTER): Chronic problem, A1c stable but uncontrolled at [...] UTD on DM eye exam (03/06/23 at [facility]). Had appt summer 2023; letter sent to get copy of report. Discussed need to increase activity outside of housework. Discussed with Aleyda Broussard: Strive for regular exercise (30min most days) [...] UTD on DM eye exam (03/06/23 at [facility]). Discussed need to increase activity outside of housework. Discussed with Aleyda Broussard: Strive for regular exercise (30min most days) [...] UTD on DM eye exam (03/06/23 at [facility]). Discussed need to increase activity outside of housework. Discussed with Aleyda Broussard: Strive for regular exercise (30min most days) [...] infection. Assessment & Plan (03/09/2023 10:02 AM HAND POTTER): Chronic problem, A1c worsening. A1c breanna from [...] re: results. DM eye exam 03/06/23 at [facility]. Letter sent to get copy of report. Discussed need to increase activity outside of housework. Discussed with Aleyda Broussard: Strive for regular exercise (30min most days) [...] housework. Assessment & Plan (03/22/2022 9:20 AM HAND POTTER): Chronic problem, not at goal. Continue: Metformin [...] consider. Assessment & Plan (03/12/2019 12:23 PM HAND POTTER): Hba1c was Lab Results Component Value Date [...] goal hba1c is under 7.0 to prevent [facility] diabetes complications ( eye , kidney and [...] Humalog. Assessment & Plan (03/30/2017 12:29 PM HAND POTTER): A1c 6.6 but she does have anemia with elevated RDW. Bydureon since 12/2016 may have also helped to improve A1c but will be stopping that for now. Will evaluate again at next Ov. Assessment & Plan (01/17/2017 10:11 AM HAND POTTER): Hba1c was 8.8 today, indicating inadequate DM [...] 01/17/2017 Assessment & Plan (04/30/2024 2:14 PM HAND POTTER): Chronic problem, well controlled on current Metoprolol XL 25mg daily, furosemide 20mg daily Will update labs today. Does not mychart. Verified phone #/address to contact re: results. Assessment & Plan (03/09/2023 9:47 AM HAND POTTER): Chronic problem, well controlled on current Metoprolol XL 25mg daily, furosemide 20mg daily Will update labs today. Does not mychart. Verified phone #/address to contact re: results. Assessment & Plan (09/08/2022 11:14 AM CDT): Chronic problem, well controlled on current Metoprolol XL 25mg daily, furosemide 20mg daily No changes at this time. Assessment & Plan (03/22/2022 9:00 AM HAND POTTER): Chronic problem, well controlled on current metoprolol XL 25mg daily. No changes at this time. Assessment & Plan (07/02/2020 4:04 PM CDT): Goal blood pressure is less than 140/85 Low salt diet was discussed andd recommended The importance of daily aerobic exercise was also emphasized. Continue current meds Assessment & Plan (04/02/2020 1:38 PM HAND POTTER): Goal blood pressure is less than 140/85 [...] MA. Assessment & Plan (03/12/2019 12:24 PM HAND POTTER): Goal blood pressure is less than 140/85 [...] medications. Assessment & Plan (03/30/2017 12:33 PM HAND POTTER): Controlled on current medications. Assessment & Plan (01/17/2017 10:12 AM HAND POTTER): Goal blood pressure is less than 140/85 [...] finger 03/29/2011 Atherosclerotic heart diseas e of [place] coronary artery without angina pectoris 09/09/2010 Chronic [...] atorvastatin Assessment & Plan (03/30/2017 12:33 PM HAND POTTER): Continue statin Obesity due to excess calories 11/05/2015 03/21/2022 Assessment & Plan (03/30/2017 12:20 PM HAND POTTER): Current exercise will be reduced with completion of Pt. Advised to add walking or other home based exercise to current house work. Elevated erythrocyte sedimentation rate 12/27/2013 03/21/2022 Need for immunization against influenza 12/27/2013 03/21/2022 Encounters Date Type Department Care Team Description 07/11/2024 10:55 AM CDT Lab [address] [place], [place] [id number] Rheumatoid arthritis involving multiple sites with positive rheumatoid factor (HCC); High risk medication use 07/11/2024 10:20 AM CDT Office Visit [facility] Rheumatology [address] [place] [address] Shawanda De La Cruz NP Rheumatoid arthritis involving multiple sites with positive rheumatoid factor (HCC) (Primary Dx); High risk medication use 05/16/2024 9:40 AM CDT Office Visit [facility] Infectious Diseases [address] [place] [address] Ana Laura Ramires NP LTBI (latent tuberculosis infection) (Primary Dx) 05/08/2024 Orders Only [facility] Diabetes and Endocrinology [address] [place] [address] [phone] ProviderOliver MD 05/02/2024 Results Follow-Up [facility] Diabetes and Endocrinology [address] [place] [phone] Stacy Hernandez NP Albumin Creatinine Ratio, Urine, Comprehensive metabolic panel, Lipid panel, Additional followed-up results: 3 04/30/2024 2:45 PM HAND POTTER Lab [facility] Outpatient Lab at [address] [phone] Type 2 diabetes mellitus with hyperglycemia, with long-term current use of insulin (HCC) (Primary Dx) 04/30/2024 2:40 PM HAND POTTER - 04/30/2024 11:59 PM HAND POTTER Hospital Encounter [facility] [address] [place] [address] Type 2 diabetes mellitus with hyperglycemia, with long-term current use of insulin (HCC); Hypertension associated with type 2 diabetes mellitus (HCC); Hyperlipidemia associated with type 2 diabetes mellitus (HCC); Hypothyroidism, unspecified type Discharge Disposition: Discharge to home or self care 04/30/2024 2:00 PM HAND POTTER Office Visit [facility] Diabetes [facility] Endocrinology [address] [place] [phone] Stacy Hernandez NP Type 2 diabetes mellitus with hyperglycemia, with long-term current use of insulin (HCC) (Primary Dx); Hyperlipidemia associated with type 2 diabetes mellitus (HCC); Diabetic polyneuropathy associated with type 2 diabetes mellitus (HCC); Hypertension associated with type 2 diabetes mellitus (HCC); Hypothyroidism, unspecified type 04/30/2024 Orders Only [facility] Diabetes [facility] Endocrinology [address] [place] [phone] ProviderOliver MD 04/26/2024 Telephone [facility] Diabetes [facility] Endocr[facility]ology [address] [place] [phone] Stacy Hernandez, PREP MANAGER Forms/questionnaires (CLINICAL ORTHOPTIST) from Last 3 Months Immunizations Immunization Administration [...] artery disease Coronary artery disease s/p silent DE Hammer toe Hammer toe; Comm ents: 06/17/2015 [...] Date Smoking Tobacco: Former Cigarettes 1 19 979 - 1997 Passive Smoke Exposure: Never [...] on file Legal Sex Female 12:14 AM HAND POTTER Gender Identity Not on file Sexual Orientation Not on file Obstetrics History Last Filed Vital Signs Vital Sign Reading Time Taken Comments Blood Pressure 117/77 07/11/2024 9:53 AM CDT Pulse 89 07/11/2024 9:53 AM CDT Temperature 37.1 C (98.7 F) 07/11/2024 9:53 AM CDT Respiratory Rate 21 12/08/2023 9:12 AM CDT Oxygen Saturation 95% 07/11/2024 9:53 AM CDT Inhaled Oxygen Concentration - - Weight 96.1 kg (211 lb 12.8 oz) 07/11/2024 9:53 AM CDT Height 154.9 cm (5' 1 ) 07/11/2024 9:53 AM CDT Body Mass Index 40.02 07/11/2024 9:53 AM CDT Plan of Treatment Health Maintenance [...] 04/30/2024, 02/27, 11/04/2021, Additional history exists eGFR 07/11/2025 07/11/2024, 03/0 05/2024, 04/27/2024, Additional history exists Osteoporosis Screening-Bone Density Scan 04/02/2026 04/02/2024, 09/23/2021, 09/23/2021 DTaP/Tdap/Td Vaccine (2 - Td or Tdap) 09/15/2031 09/14/2021 Hepatitis C Screening Completed 07/03/2023, 020 Influenza Vaccine Completed 01/01/2024, , 12/09/2019, Additional history exists Medical Devices Implanted Type Area Turn Down Man Device Identifier Shelf Expiration Date Model / Serial / Lot Allosource [id number] Freeze Dried Chips Graft 15ml Bone Cancellous Cortical - [id number] Implanted:Qty: 1 on 08/14/2018 by Pradip Whalen MD at [facility] Bone Allosource 08/28/2022 [id number] / / [id number] Allosource [id number] Allogro Freeze Dried Graft 15ml Bone Demineralized Bone Matrix - [id number] Implanted:Qty: 1 on 08/14/2018 by Pradip Whalen MD at [facility] Bone Allosource 03/15/2023 [id number] / / [id number] Intraocular Lens Bilateral : Eye Orthohelix [id number] Maxtorque 4mm 37.5mm Cannulated Self Drill Foot Ankle Long Thread - [id number] Implanted:Qty: 1 on 08/14/2018 by Pradip Whalen MD at [facility] Right: Foot Orthohelix MSD-010-40- 375L / / [employer] [id number] Cristobal .062in 9in Style 1 Wire Fixation Stainless Steel - [id number] Implanted:Qty: 1 on 08/14/2018 by Pradip Whalen MD at [facility] Right: First Toe [employer] [id number] / / Orthohelix Mxl-002-2a Maxlock Extreme 2 Hole Otto Alpha Plate Bone Nonsterile - [id number] Implanted:Qty: 1 on 08/14/2018 by Pradip Whalen MD at [facility] Right: Foot Orthohelix MXL-002-2A / / Orthohelix [id number] Maxtorque 5.5mm 50mm Cannulated Self Drill Foot Ankle Long Thread - [id number] Implanted:Qty: 1 on 08/14/2018 by Pradip Whalen MD at [facility] Right: Foot Orthohelix MSD-010-55- 050L / / Orthohelix [id number] Maxtorque 5.5mm 55mm Cannulated Self Drill Foot Ankle Long Thread - [id number] Implanted:Qty: 1 on 08/14/2018 by Pradip Whalen MD at [facility] Right: Foot Orthohelix MSD-010-55- 055L / / Orthohelix [id number] Maxtorque 7mm 70mm Cannulated Self Drill Foot Ankle Petite Thread - [id number] Implanted:Qty: 1 on 08/14/2018 by Pradip Whalen MD at [facility] Right: Foot Orthohelix MSD-010-70- 070P / / Orthohelix [id number] 4mm 26mm Nonlock Foot Ankle Screw Bone Nonsterile Maxlock Extreme - [id number] Implanted:Qty: 2 on 08/14/2018 by Pradip Whalen MD at [facility] Right: Foot Orthohelix WOOD DOWEL MACHINE OPERATOR-011-402 6 / / Orthohelix [id number] Maxlock Extreme 4mm 28mm Nonlock Foot Ankle Screw Bone Nonsterile Latex Free - [id number] Implanted:Qty: 1 on 08/14/2018 by Pradip Whalen MD at [facility] Right: Foot Orthohelix WOOD DOWEL MACHINE OPERATOR-011-402 8 / / Orthohelix [id number] Maxlock Extreme 4mm 24mm Nonlock Foot Ankle Screw Bone Nonsterile - [id number] Implanted:Qty: 1 on 08/14/2018 by Pradip Whalen MD at [facility] Right: Foot Orthohelix WOOD DOWEL MACHINE OPERATOR-011-40- 24 / / Explanted Type Area Turn Down Man Device Identifier Shelf Expiration Date Model / Serial / Lot Orthohelix General Manager In Training-040 [place] Wire Fixation Nonsterile Latex Free - [id number] Explanted:Qty: 2 on 08/14/2018 at [facility] Right: Foot Orthohelix WOOD DOWEL MACHINE OPERATOR-040 / / Procedures Procedure Name Priority Date/Time Associated Diagnosis Comments EGFR Routine 07/11/2024 10:58 AM CDT High risk medication use DIFFERENTIAL AUTO Routine 07/11/2024 10: 58 AM CDT High risk medication use CBC WITH AUTO DIFFERENTIAL Routine 07/11/2024 10:58 AM CDT High risk medication use COMPREHENSIVE METABOLIC PANEL Routine 07/11/2024 10:58 AM CDT High risk medication use CRP (ACUTE PHASE) Routine 07/11/2024 10: 58 AM CDT Rheumatoid arthritis involving multiple sites with positive rheumatoid factor (HCC) ERYTHROCYTE SEDIMENTATION RATE Routine 07/11/2024 10:58 AM CDT Rheumatoid arthritis involving multiple sites with positive rheumatoid factor (HCC) EGFR Routine 04/30/2024 2:40 PM HAND POTTER Type 2 diabetes mellitus with hyperglycemia, with long-term current use of insulin (HCC) Hypertension associated with type 2 diabetes mellitus (HCC) TSH Routine 04/30/2024 2:40 PM HAND POTTER Hypothyroidism, unspecified type T4, FREE Routine 04/30/2024 2:40 PM HAND POTTER Hypothyroidism, unspecified type LIPID PANEL Routine 04/30/2024 2:40 PM HAND POTTER Type 2 diabetes mellitus with hyperglycemia, with long-term current use of insulin (HCC) Hyperlipidemia associated with type 2 diabetes mellitus (HCC) COMPREHENSIVE METABOLIC PANEL Routine 04/30/2024 2:40 PM HAND POTTER Type 2 diabetes mellitus with hyperglycemia, with long-term current use of insulin (HCC) Hypertension associated with type 2 diabetes mellitus (HCC) ALBUMIN CREATININE RATIO, URINE Routine 04/30/2024 2:40 PM HAND POTTER Type 2 diabetes mellitus with hyperglycemia, with long-term current use of insulin (HCC) POCT GLUCOSE Routine 04/30/2024 1:58 PM HAND POTTER Type 2 diabetes mellitus with hyperglycemia, with long-term current use of insulin (HCC) POCT HEMOGLOBIN A1C Routine 04/30/2024 1 :58 PM HAND POTTER Type 2 diabetes mellitus with hyperglycemia, with long-term current use of insulin (HCC) COMPREHENSIVE METABOLIC PANEL Routine 04/27/2024 2:21 AM HAND POTTER DEXA AXIAL SKELETON BONE DENSITY 1 OR MORE SITES Schedule Routine, Read Routine (OP Routine) 04/02/2024 11:04 AM HAND POTTER Rheumatoid arthritis involving multiple sites with positive rheumatoid factor (HCC) HM DIABETES EYE EXAM Routine 09/04/2023 8:55 AM CDT HEPATITIS PANEL, ACUTE Routine 07/03/2023 10:42 AM CDT High risk medication use from Last 3 Months or Most Recently Relevant to Health Maintenance Results * (ABNORMAL) eGFR (07/11/2024 10:58 AM CDT) eGFR 31(L) >=60 mL/min/1. 73 m2 Comment: Interpretive Data [...] interpretive data was last reviewed 2020. Blood 07/11/2024 10:5 8 AM CDT 07/11/2024 2:19 PM CDT us Shawanda De La Cruz NP LAB BLOOD ORDERABLES Final Result [facility] [place] [address] * Differential, auto (07/11/2024 10:58 AM CDT) Neutrophil abs 3.38 1.50 - 6.50 K/cumm Imm gran abs 0.01 0.00 - 0.10 K/cumm [facility] Lymphocyte abs 1.92 0.80 - 3.30 K/cumm [facility] Monocyte abs 0.59 0.20 - 0.80 K/cumm [facility] Eosinophil abs 0.29 0.00 - 0.50 K/cumm [facility] Basophil abs 0.04 0.00 - 0.10 K/cumm [facility] Neutrophil pct 54.2 % [facility] Comment: Interpretive Data Percent cell count reference ranges are not reported, since discordance with absolute values may lead to misinterpretation of CBC data. Current Interpretive Data was last revised on 2017. Imm gran pct 0.2 % [facility] Comment: Interpretive Data Percent cell count reference ranges are not reported, since discordance with absolute values may lead to misinterpretation of CBC data. Current Interpretive Data was last revised on 2017. Lymphocyte pct 30.8 % [facility] Comment: Interpretive Data Percent cell count reference ranges are not reported, since discordance with absolute values may lead to misinterpretation of CBC data. Current Interpretive Data was last revised on 2017. Monocyte pct 9.5 % [facility] Comment: Interpretive Data Percent cell count reference ranges are not reported, since discordance with absolute values may lead to misinterpretation of CBC data. Current Interpretive Data was last revised on 2017. Eosinophil pct 4.7 % [facility] Comment: Interpretive Data Percent cell count reference ranges are not reported, since discordance with absolute values may lead to misinterpretation of CBC data. Current Interpretive Data was last revised on 2017. Basophil pct 0.6 % [facility] Comment: Interpretive Data Percent cell count reference ranges are not reported, since discordance with absolute values may lead to misinterpretation of CBC data. Current Interpretive Data was last revised on 2017. Blood 07/11/2024 10:5 8 AM CDT 07/11/2024 1:54 PM CDT us Shawanda De La Cruz PREP MANAGER LAB BLOOD ORDERABLES Final Result [facility] [place] [address] * (ABNORMAL) CBC with auto differential (07/11/2024 10:58 AM CDT) WBC 6.23 3.80 - 9.90 K/cumm Hgb 10.4(L) 11.9 - 15.5 g/dL [facility] Hct 33.1(L) 35.6 - 45.5 % [facility] Plt 121(L) 150 - 400 K/cumm [facility] MPV 13.3(H) 9.1 - 12.3 fL [facility] RBC 3.78(L) 3.90 - 5.20 M/cumm [facility] MCV 87.6 81.3 - 96.4 fL [facility] MCH 27.5 27.1 - 33.3 pg [facility] MCHC 31.4(L) 32.3 - 35.7 g/dL [facility] RDW CV 15.6(H) 11.1 - 14.9 % [facility] RDW SD 49.7(H) 35.7 - 48.1 fL [facility] NRBC abs 0.00 0.00 - 0.01 K/cumm [facility] Blood 07/11/2024 10:5 8 AM CDT 07/11/2024 1:54 PM CDT us Shawanda De La Cruz NP LAB BLOOD ORDERABLES Final Result Performing Organization Address City/[facility] Co de Phone Number [facility] [place] [place] [address] * (ABNORMAL) Erythrocyte sedimentation rate (07/11/2024 10:58 AM CDT) [facility] Erythrocyte sedimentation rate 91(H) 1 - 30 mm/hr Blood 07/11/2024 10:5 8 AM CDT 07/11/2024 1:54 PM CDT us Shawanda De La Cruz NP LAB BLOOD ORDERABLES Final Result Performing Organization Address [facility] Co de Phone Number [facility] [place] [address] * CRP (acute phase) (07/11/2024 10:58 AM CDT) [facility] CRP 1.0 <=10.0 mg/L Blood 07/11/2024 10:5 8 AM CDT 07/11/2024 2:01 PM CDT Shawanda De La Cruz NP LAB BLOOD ORDERABLES Final Result Performing Organization Address [facility] Co de Phone Number [facility] [place] [address] * (ABNORMAL) Comprehensive metabolic panel (07/11/2024 10:58 AM CDT) [facility] Sodium 142 135 - 145 mmol/L Potassium, pl 5.0(H) 3.3 - 4.9 mmol/L [facility] Chloride 106 97 - 110 mmol/L [facility] CO2 27 22 - 32 mmol/L [facility] Anion gap 9 2 - 15 mmol/L [facility] BUN 53(H) 6 - 25 mg/dL [facility] Creatinine 1.73(H) 0.60 - 1.10 mg/dL [facility] Glucose 115 70 - 199 mg/dL [facility] Comment: Interpretive Data Fasting glucose >/= 126 [...] interpretive data was last revised 2022. Calcium 9.4 8.5 - 10.3 mg/dL [facility] Bilirubin, total 0.3 0.1 - 1.2 mg/dL [facility] Protein, pl 7.6 6.5 - 8.5 g/dL [facility] Albumin 3.6 3.5 - 5.0 g/dL [facility] Alk phos 121 40 - 130 Units/L [facility] ALT 24 7 - 45 Units/L [facility] AST 35 10 - 45 Units/L [facility] Blood 07/11/2024 10:5 8 AM CDT 07/11/2024 2:01 PM CDT Shawanda De La Cruz PREP MANAGER LAB BLOOD ORDERABLES Final Result [facility] [place] [address] * (ABNORMAL) eGFR (04/30/2024 2:40 PM HAND POTTER) Pathologist [facility] eGFR 44(L) >=60 mL/min/1. 73 m2 Comment: [...] last reviewed 2020. Blood 04/30/2024 2:40 PM HAND POTTER 04/30/2024 11:04 PM HAND POTTER Stacy Hernandez NP LAB BLOOD ORDERABLES Valery l Result Performing Organization Address [facility] Co de Phone Number MALOU FRANK [address] [place], [place] [id number] * (ABNORMAL) Albumin Creatinine Ratio, Urine (04/30/2024 2:40 PM HAND POTTER) Albumin Ur 3,067.5 mg/L Comment: Interpretive Data No reference range established. Current interpretive data was last revised 2018. Creatinine Ur 81.5 mg/dL [facility] Comment: Interpretive Data No reference range established. Current interpretive data was last revised 2018. Albumin Creatinine Ratio, Ur 3,764(H) 1 - 29 mg/g MAL[facility] Urine 04/30/2024 2:40 PM HAND POTTER 04/30/2024 11:00 PM HAND POTTER us Stacy Hernandez PREP MANAGER LAB URINE ORDERABLES Valery l Result Performing Organization Address [facility] Co de Phone Number MALOU ZAC [address] [place], [place] [id number] * TSH (04/30/2024 2:40 PM HAND POTTER) Thyroid Stimulating Hormone 2.51 0.30 - 4.20 mcIUnit/mL Blood 04/30/2024 2:40 PM HAND POTTER 04/30/2024 11:00 PM HAND POTTER us Stacy Main Hernandez PREP MANAGER LAB BLOOD ORDERABLES Valery l Result Performing Organization Address [facility] Co de Phone Number MALOU FRANK [address] [facility] [place] [place] [address] * T4, free (04/30/2024 2:40 PM HAND POTTER) Free T4 1.27 0.90 - 1.70 ng/dL Blood 04/30/2024 2:40 PM HAND POTTER 04/30/2024 11:00 PM HAND POTTER Stacy Quach David PREP MANAGER LAB BLOOD ORDERABLES Valery l Result Performing Organization Address [facility] de Phone Number MALOU FRANK [address] [address] [facility] [place] [place] [address] * Lipid panel (04/30/2024 2:40 PM HAND POTTER) Cholesterol 119 30 - 199 mg/dL Comment: [...] 2 [facility] Blood 04/30/2024 2:40 PM HAND POTTER 04/30/2024 11:00 PM HAND POTTER us Stacy Hernandez PREP MANAGER LAB BLOOD [place] [address] [address] [place] [address] * (ABNORMAL) Comprehensive metabolic panel (04/30/2024 2:40 PM HAND POTTER) Sodium 137 135 - 145 mmol/L Potassium, [...] classification and Diagnosis of Diabetes Diabetes Care 202; 46: S19-S40. Current interpretive data was last [...] CH AST 34 10 - 45 Units/L [facility] Blood 04/30/2024 2:40 PM HAND POTTER 04/30/2024 11:00 PM HAND POTTER us Stacy Hernandez PREP MANAGER LAB BLOOD ORDERABLES Valery l Result MALOU [address] [address] [place] [address] * (ABNORMAL) POCT hemoglobin A1c (04/30/2024 1:58 PM HAND POTTER) Pathologist [facility] Hemoglobin A1C, POC 8.0 4.0 - 5.6 % Blood 04/30/2024 1:58 PM HAND POTTER us Stacy Hernandez PREP MANAGER POINT OF CARE TEST ORDERA BLES Final Result * (ABNORMAL) POCT glucose (04/30/2024 1:58 PM HAND POTTER) [facility] Glucose Blood, POC 324 mg/dL Blood 04/30/2024 1:58 PM HAND POTTER us Stacybruno Hernandez PREP MANAGER POINT OF CARE TEST ORDERA BLES Final Result * (ABNORMAL) Comprehensive metabolic panel (04/27/2024 2:21 AM HAND POTTER) Pathologist [facility] SCRIBED Sodium 134(A) 136 - 145 mmol/L [...] Units/L EXTERNAL LAB SCRIBED eGFR in NonAfrican Peruvian 37 <60 - NA EXTERNAL LAB Blood 04/27/2024 2:21 AM HAND POTTER us Historical Provider LAB BLOOD ORDERABLES Edit ed Result - Final EXTERNAL LAB * Dexa Axial Skeleton Bone Density 1 or 2 Site (04/02/2024 11:04 AM HAND POTTER) Anatomical Region Laterality Modality Body N/A Radiographic Sheron ging Narrative 04/02/2024 2:27 PM HAND POTTER Patient Name: Aleyda Broussard Date of : 1950 Date of scan: 04/02/2024 Bone mineral density was performed on a [employer] Densitometer. Based on machine cross-calibration and [...] by the International Society of Clinical Densitometry. [id number] Shawanda De La Cruz NP IMG DXA PROCEDURES Final R esult * (ABNORMAL) DIABETES EYE EXAM (09/04/2023 8:55 AM CDT) Historical Provider HEALTH MAINTENANCE Final Result * Hepatitis panel, acute Blood (07/03/2023 10:42 AM CDT) Hep A IgM Nonreactive Nonreactive Hep B core IgM Nonreactive Nonreactive [facility] Hep C Ab Nonreactive Nonreactive [facility] Comment:Antibodies to HCV no t detected. Does NOT exclude the possibility of recent exposure to HCV. Current interpretive data was last revised on 21 HepBsAg Nonreactive Nonreactive [facility] Blood 07/03/2023 10:4 2 AM CDT 07/03/2023 2:00 PM CDT Shawanda De La Cruz NP LAB MICROBIOLOGY - GENERAL ORDERABLES Final Result [facility] [place] [address] from Last 3 Months or Most Recently Relevant to Health Maintenance Insurance MEDICARE [place] [employer] OPEN ACCESS MEDICARE [facility] Address: [address] [address] [place] [address] [email or web address] OPEN ACCESS MEDICARE [facility] Address: [address] [address] [place] [address] [employer] ACCESS OOS Member Subscriber Plan / Payer (Ef fective 2017-Present) Name:Dilia Aleyda Marilin Relation to Subscriber:Spouse Name:Sharad Broussard Marilin Date of :1947 (Home) Address: [address] [place] [address] Payer ID:[id number] (NAIC) Type: BENY Address: [address] [place] [id number] [employer] OPEN ACCESS Advance Directives For more information, please contact: [phone] * Full Code (Latest Code Status on File) Date Activated Date Inactivated Comments 07/20/2020 2:30 PM 07/21/2020 6:17 PM * Full Code Date Activated Date Inactivated Comments 08/14/2018 8:57 PM 08/15/2018 6:35 PM Care Teams Car Lot Attendant Relationship Specialty Start Date End Date Charles Armendariz DO PCP - General 05/27/16 David Vanegas MD [address] [place] [address] Consulting Physician Cardiology 07/20/18
--- OUTSIDE RECORDS SUMMARY | 2024-07-17 13:03 | XMS_ITS | Encounter Summary ---
Author Organization [facility] Address [address] [place] [address] Phone Care Team Providers Care Cyber Forensic Specialist Name Role Phone Charles Armendariz DO Primary Care Provider [phone] David Vanegas MD Unavailable [phone] Encounter Details Date Type Department Care Team (Late st Contact Info) Description 01/30/2023 Orders Only [facility] PMR [phone] Scanning, Provider Social History Tobacco Use Types [...] on file Legal Sex Female 12:14 AM ADDICTION PSYCHIATRIST Gender Identity Not on file Sexual Orientation [...] on filedocumented in this encounter Care Teams Cyber Forensic Specialist Relationship Specialty Start Date End Date Charles Armendariz DO PCP - General 05/27/16 David Vanegas MD [address] [place] [address] Consulting Physician Cardiology 07/20/18 documented as of this encounter
--- OUTSIDE RECORDS SUMMARY | 2024-07-17 13:03 | XMS_ITS | Referral Summary ---
Author Organization [facility] Address [address] [place] [address] Care Team Providers Care Talk Show Host Name Role Phone Charles Armendariz DO Primary Care Provider [phone] David Vanegas MD Unavailable [phone] Encounters Date Type Department Care Team Description 07/11/2024 10:[address] [facility] [address] [facility] [place] [address] Rheumatoid arthritis involving multiple sites with positive rheumatoid factor (HCC); High risk medication use 07/11/2024 10:20 AM CDT Office Visit [facility] Rheumatology [address] [place] [address] 2nd Floor [address] [place] [address] Shawanda De La Cruz NP Rheumatoid arthritis involving multiple sites with positive rheumatoid factor (HCC) (Primary Dx); High risk medication use 05/16/2024 9:40 AM CDT Office Visit [facility] Infectious Diseases [address] [place] [address] [address] [place] [phone] Ana Laura Ramires NP LTBI (latent tuberculosis infection) (Primary Dx) 05/08/[address] [facility] Medical Group Diabetes and Endocrinology [address] [place] [phone] Oliver Joel MD 05/02/2024 Results Follow-Up [facility] Diabetes and Endocrinology [address] [place] [phone] Stacy Hernandez NP Albumin Creatinine Ratio, Urine, Comprehensive metabolic panel, Lipid panel, Additional followed-up results: 3 04/30/2024 2:40 PM MOTION PICTURE CAMERAMAN - 04/30/2024 11:59 PM [employer]ION PICTURE CAMERAMAN Hospital Encounter [facility] [address] [place] [address] Type 2 diabetes mellitus with hyperglycemia, with long-term current use of insulin (HCC); Hypertension associated with type 2 diabetes mellitus (HCC); Hyperlipidemia associated with type 2 diabetes mellitus (HCC); Hypothyroidism, unspecified type Discharge Disposition: Discharge to home or self care 04/30/2024 2:45 PM MOTION PICTURE CAMERAM[employer] Lab [facility] Medical [facility] Outpatient Lab at [address] [phone] Type 2 diabetes mellitus with hyperglycemia, with long-term current use of insulin (HCC) (Primary Dx) 04/30/2024 Orders Only [facility] Diabetes and Endocrinology [address] [place] [phone] ProviderOliver MD 04/30/2024 2:00 PM MOTION PICTURE CAMERAMAN Office Visit [facility] Medical [facility] Diabetes and Endocrinology [address] [place] [phone] Stacy Hernandez NP Type 2 diabetes mellitus with hyperglycemia, with long-term current use of insulin (HCC) (Primary Dx); Hyperlipidemia associated with type 2 diabetes mellitus (HCC); Diabetic polyneuropathy associated with type 2 diabetes mellitus (HCC); Hypertension associated with type 2 diabetes mellitus (HCC); Hypothyroidism, unspecified type 04/26/[address] [facility] Medical [facility] Diabetes and Endocrinology [address] [place] [phone] Stacy Hernandez NP Forms/questionnaires ([employer]IST) from Last 3 Months Allergies Active Allergy Reactions Criticality Noted Date Comments Ciprofloxacin Nausea only Low 09/08/2022 Daptomycin Diarrhea Low 06/29/2020 Doxycycline Unknown Low 09/19/2019 Canagliflozin Diarrhea Low 10/28/2021 Empagliflozin Diarrhea Low 04/21/2021 Lisinopril Cough Low 08/13/2018 Semaglutide Diarrhea High 01/27/2021 Povidone-Iodine Rash Medium 05/05/2017 Txidqhy-Vno-Kcy Reductase Inhibitors Muscle pain Medium 11/05/2020 Valsartan [...] total) by mouth every morning Activ e [id number] -iron fm-FA-vitK 18 mg-400 mcg- 25 mcg [...] symptoms. Assessment & Plan (03/15/2024 10:09 AM MOTION PICTURE CAMERAMAN): - Doing well on INH/B6 for LTBI, [...] 10/24/2023 Assessment & Plan (04/30/2024 2:13 PM MOTION PICTURE CAMERAMAN): Chronic problem. Currently taking Atorvastatin 40mg. Last lipid panel: 03/09/23 LDL=37 CP=203. Will update labs. Does not mychart. Verified phone #/address to contact re: results. Assessment & Plan (10/24/2023 3:19 PM CDT): Chronic problem. Currently taking Atorvastatin 40mg. Last lipid panel: 03/09/23 LDL=37 WN=294. Positive TB test 09/19/2023 Assessment & Plan (01/01/2024 12:37 PM MOTION PICTURE CAMERAMAN): - Unable to tolerate rifabutin as she [...] CBC and CMP in 1 month at [facility] - Ok to start biologic for rheumatoid arthritis after she has been on rifabutin for 1 month. Will forward note to rheumatology Class 2 severe obesity due t o excess calories with serious comorbidity and body mass index (BMI) of 39.0 to 39.9 in adult 03/09/2023 Assessment & Plan (03/09/2023 10:05 AM MOTION PICTURE CAMERAMAN): Discussed healthy diet and importance of regular [...] 03/22/2022 Assessment & Plan (03/22/2022 8:59 AM MOTION PICTURE CAMERAMAN): Chronic problem, stable. 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 Overview (11/19/2019): Added automatically from request for surgery [id number] Ulnar neuropathy of left upper extremity 020 Overview (11/19/2019): Added automatically from request for surgery [id number] Anxiety 05/24/2019 Asthma 05/24/2019 Brachial neuritis 05/24/2019 Major depressive disorder 05/24/2019 Gastroesophageal reflux disease without esophagi tis 05/24/2019 Gout 05/24/2019 Spleen hematoma 05/24/2019 Osteoarthritis 05/24/2019 Primary localized osteoarthrosis of shoulder reg ion 05/24/2019 Recurrent dislocation of shoulder region 020 Hypothyroidism 04/10/2019 Assessment & Plan (04/30/2024 2:14 PM MOTION PICTURE CAMERAMAN): Chronic problem. Currently taking levothyroxine 100mcg. Clinically [...] 1.23 Assessment & Plan (03/09/2023 9:54 AM MOTION PICTURE CAMERAMAN): Chronic problem. Currently taking levothyroxine 100mcg. 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 Currently taking Gabapentin 300mg bid. [...] barefoot. Assessment & Plan (03/09/2023 9:47 AM MOTION PICTURE CAMERAMAN): Chronic problem. Currently taking gabapentin. Aware to check feet nightly & not go barefoot. Assessment & Plan (09/08/2022 11:14 AM CDT): Chronic problem. Currently taking gabapentin. Aware to check feet nightly. Assessment & Plan (03/21/2022 8:54 AM MOTION PICTURE CAMERAMAN): Chronic problem. Currently taking gabapentin. Aware to check feet nightly. Assessment & Plan (05/13/2021 10:51 AM CDT): Foot care discussed Assessment & Plan (11/05/2020 2:29 PM CDT): Foot care discussed The patient does not feel that Neurontin helps of will discontinue Assessment & Plan (04/02/2020 1:40 PM MOTION PICTURE CAMERAMAN): On Neurontin Foot care discussed Assessment & Plan (10/19/2017 10:52 AM CDT): Foot care discussed On neurointin Advised on seeing foot dr. Hyperlipidemia 10/19/2017 Assessment & Plan (03/09/2023 9:48 AM MOTION PICTURE CAMERAMAN): Chronic problem. Current on atorvastatin 40mg daily. Last lipid panel: 11/04/21 LDL=26, ZF=625. Will update labs today. Does not mychart. Verified phone #/address to contact re: results. Assessment & Plan (09/08/2022 11:14 AM CDT): Chronic problem. Current on atorvastatin 40mg daily. 11/04/21 LDL=26. No changes. Assessment & Plan (03/21/2022 8:53 AM MOTION PICTURE CAMERAMAN): Chronic problem. Current on atorvastatin 40mg daily. [...] Lipitor Assessment & Plan (04/02/2020 1:37 PM MOTION PICTURE CAMERAMAN): Goal of treatment , LDL cholesterol less [...] therapy. Assessment & Plan (03/12/2019 12:24 PM MOTION PICTURE CAMERAMAN): Goal of treatment , LDL cholesterol less [...] 01/17/2017 Assessment & Plan (04/30/2024 2:42 PM MOTION PICTURE CAMERAMAN): Chronic problem, A1c stable but uncontrolled at [...] UTD on DM eye exam (03/06/23 at [facility] in [place]). Had appt summer 2023; letter sent to [...] UTD on DM eye exam (03/06/23 at [facility]). Discussed need to [...] UTD on DM eye exam (03/06/23 at [facility]). Discussed need to increase activity [...] infection. Assessment & Plan (03/09/2023 10:02 AM MOTION PICTURE CAMERAMAN): Chronic problem, A1c worsening. A1c breanna from [...] re: results. DM eye exam 03/06/23 at [facility] in [place]. Letter sent to get copy of report. [...] housework. Assessment & Plan (03/22/2022 9:20 AM MOTION PICTURE CAMERAMAN): Chronic problem, not at goal. Continue: Metformin [...] consider. Assessment & Plan (03/12/2019 12:23 PM MOTION PICTURE CAMERAMAN): Hba1c was Lab Results Component Value Date [...] goal hba1c is under 7.0 to prevent oysterman diabetes complications ( eye , kidney and [...] Humalog. Assessment & Plan (03/30/2017 12:29 PM MOTION PICTURE CAMERAMAN): A1c 6.6 but she does have anemia with elevated RDW. Bydureon since 12/2016 may have also helped to improve A1c but will be stopping that for now. Will evaluate again at next Ov. Assessment & Plan (01/17/2017 10:11 AM MOTION PICTURE CAMERAMAN): Hba1c was 8.8 today, indicating inadequate DM [...] 01/17/2017 Assessment & Plan (04/30/2024 2:14 PM MOTION PICTURE CAMERAMAN): Chronic problem, well controlled on current Metoprolol XL 25mg daily, furosemide 20mg daily Will update labs today. Does not mychart. Verified phone #/address to contact re: results. Assessment & Plan (03/09/2023 9:47 AM MOTION PICTURE CAMERAMAN): Chronic problem, well controlled on current Metoprolol XL 25mg daily, furosemide 20mg daily Will update labs today. Does not mychart. Verified phone #/address to contact re: results. Assessment & Plan (09/08/2022 11:14 AM CDT): Chronic problem, well controlled on current Metoprolol XL 25mg daily, furosemide 20mg daily No changes at this time. Assessment & Plan (03/22/2022 9:00 AM MOTION PICTURE CAMERAMAN): Chronic problem, well controlled on current metoprolol XL 25mg daily. No changes at this time. Assessment & Plan (07/02/2020 4:04 PM CDT): Goal blood pressure is less than 140/85 Low salt diet was discussed andd recommended The importance of daily aerobic exercise was also emphasized. Continue current meds Assessment & Plan (04/02/2020 1:38 PM MOTION PICTURE CAMERAMAN): Goal blood pressure is less than 140/85 [...] MA. Assessment & Plan (03/12/2019 12:24 PM MOTION PICTURE CAMERAMAN): Goal blood pressure is less than 140/85 [...] medications. Assessment & Plan (03/30/2017 12:33 PM MOTION PICTURE CAMERAMAN): Controlled on current medications. 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 09/09/2010 Chronic [...] atorvastatin Assessment & Plan (03/30/2017 12:33 PM MOTION PICTURE CAMERAMAN): Continue statin Obesity due to excess calories 11/05/2015 03/21/2022 Assessment & Plan (03/30/2017 12:20 PM MOTION PICTURE CAMERAMAN): Current exercise will be reduced with completion [...] on file Legal Sex Female 12:14 AM MOTION PICTURE CAMERAMAN Gender Identity Not on file Sexual Orientation [...] 07/11/2024 9:53 AM CDT Plan of Treatment Not on file Medical Devices Implanted Type Area Aerial Erector Device Identifier Shelf Expiration Date Model / Serial / Lot Allosource [id number] Freeze Dried Chips Graft 15ml Bone Cancellous Cortical - [id number] Implanted:Qty: 1 on 08/14/2018 by Pradip Whalen MD at [facility] Bone Allosource 08/28/2022 [id number] / / [id number] Allosource [id number] Allogro Freeze Dried Graft 15ml Bone Demineralized Bone Matrix - [id number] Implanted:Qty: 1 on 08/14/2018 by Pradip Whalen MD at [facility] Bone Allosource 03/15/2023 [id number] / / [id number] Intraocular Lens Bilateral : Eye Orthohelix [id number] Maxtorque 4mm 37.5mm Cannulated Self Drill Foot Ankle Long Thread - [id number] Implanted:Qty: 1 on 08/14/2018 by Pradip Whalen MD at [facility] Right: Foot Orthohelix MSD-010-40- 375L / / [employer] [id number] Cristobal .062in 9in Style 1 Wire Fixation Stainless Steel - [id number] Implanted:Qty: 1 on 08/14/2018 by Pradip Whalen MD at [facility] Right: First Toe [employer] [id number] / / Orthohelix Mxl-002-2a Maxlock Extreme 2 Hole [place] Alpha Plate Bone Nonsterile - [id number] Implanted:Qty: 1 on 08/14/2018 by Pradip Whalen MD at [facility] Right: Foot Orthohelix MXL-002-2A / / Orthohelix [id number] Maxtorque 5.5mm 50mm Cannulated Self Drill Foot Ankle Long Thread - [id number] Implanted:Qty: 1 on 08/14/2018 by Pradip Whalen MD at [facility] Right: Foot Orthohelix MSD-010-55- 050L / / Orthohelix [id number] Maxtorque 5.5mm 55mm Cannulated Self Drill Foot Ankle Long Thread - [id number] Implanted:Qty: 1 on 08/14/2018 by Pradip Whalen MD at [facility] Right: Foot Orthohelix MSD-010-55- 055L / / Orthohelix [id number] Maxtorque 7mm 70mm Cannulated Self Drill Foot Ankle Petite Thread - [id number] Implanted:Qty: 1 on 08/14/2018 by Pradip Whalen MD at [facility] Right: Foot Orthohelix MSD-010-70- 070P / / Orthohelix [id number] 4mm 26mm Nonlock Foot Ankle Screw Bone Nonsterile Maxlock Extreme - [id number] Implanted:Qty: 2 on 08/14/2018 by Pradip Whalen MD at [facility] Right: Foot Orthohelix MOVIE EXTRA-011-402 6 / / Orthohelix [id number] Maxlock Extreme 4mm 28mm Nonlock Foot Ankle Screw Bone Nonsterile Latex Free - [id number] Implanted:Qty: 1 on 08/14/2018 by Pradip Whalen MD at [facility] Right: Foot Orthohelix MOVIE EXTRA-011-402 8 / / Orthohelix [id number] Maxlock Extreme 4mm 24mm Nonlock Foot Ankle Screw Bone Nonsterile - [id number] Implanted:Qty: 1 on 08/14/2018 by Pradip Whalen MD at [facility] Right: Foot Orthohelix MOVIE EXTRA-011-40- 24 / / Explanted Type Area Aerial Erector Device Identifier Shelf Expiration Date Model / Serial / Lot Orthohelix [employer]-040 [place] Wire Fixation Nonsterile Latex Free - [id number] Explanted:Qty: 2 on 08/14/2018 at [facility] Right: Foot Orthohelix MOVIE EXTRA-040 / / Procedures Procedure Name Priority Date/Time [...] factor (HCC) EGFR Routine 04/30/2024 2:40 PM MOTION PICTURE CAMERAMAN Type 2 diabetes mellitus with hyperglycemia, with long-term current use of insulin (HCC) Hypertension associated with type 2 diabetes mellitus (HCC) TSH Routine 04/30/2024 2:40 PM MOTION PICTURE CAMERAMAN Hypothyroidism, unspecified type T4, FREE Routine 04/30/2024 2:40 PM MOTION PICTURE CAMERAMAN Hypothyroidism, unspecified type LIPID PANEL Routine 04/30/2024 2:40 PM MOTION PICTURE CAMERAMAN Type 2 diabetes mellitus with hyperglycemia, with long-term current use of insulin (HCC) Hyperlipidemia associated with type 2 diabetes mellitus (HCC) COMPREHENSIVE METABOLIC PANEL Routine 04/30/2024 2:40 PM MOTION PICTURE CAMERAMAN Type 2 diabetes mellitus with hyperglycemia, with long-term current use of insulin (HCC) Hypertension associated with type 2 diabetes mellitus (HCC) ALBUMIN CREATININE RATIO, URINE Routine 04/30/2024 2:40 PM MOTION PICTURE CAMERAMAN Type 2 diabetes mellitus with hyperglycemia, with long-term current use of insulin (HCC) POCT GLUCOSE Routine 04/30/2024 1:58 PM MOTION PICTURE CAMERAMAN Type 2 diabetes mellitus with hyperglycemia, with long-term current use of insulin (HCC) POCT HEMOGLOBIN A1C Routine 04/30/2024 1 :58 PM MOTION PICTURE CAMERAMAN Type 2 diabetes mellitus with hyperglycemia, with long-term current use of insulin (HCC) COMPREHENSIVE METABOLIC PANEL Routine 04/27/2024 2:21 AM MOTION PICTURE CAMERAMAN DEXA AXIAL SKELETON BONE DENSITY 1 OR MORE SITES Schedule Routine, Read Routine (OP Routine) 04/02/2024 11:04 AM MOTION PICTURE CAMERAMAN Rheumatoid arthritis involving multiple sites with positive rheumatoid factor (HCC) DIABETES EYE EXAM Routine 09/04/2023 8:55 AM CDT HEPATITIS PANEL, ACUTE Routine 07/03/2023 10:42 AM CDT High risk medication use from Last 3 Months or Most Recently Relevant to Health Maintenance Results * (ABNORMAL) eGFR (07/11/2024 10:58 AM CDT) [facility] eGFR 31(L) >=60 mL/min/1. 73 m2 Comment: [...] PM CDT us Shawanda De La Cruz SUPERVISORY HISTORIAN LAB BLOOD ORDERABLES Final Result [facility] One [facility] Department [place] [address] * Differential, auto (07/11/2024 10:58 AM CDT) Neutrophil abs 3.38 1.50 - 6.50 K/cumm Imm gran abs 0.01 0.00 - 0.10 K/cumm [facility] Lymphocyte abs 1.92 0.80 - 3.30 K/cumm [facility] Monocyte abs 0.59 0.20 - 0.80 K/cumm [facility] Eosinophil abs 0.29 0.00 - 0.50 K/cumm [facility] Basophil abs 0.04 0.00 - 0.10 K/cumm [facility] Neutrophil pct 54.2 % [facility] Comment: Interpretive Data Percent cell count reference ranges are not reported, since discordance with absolute values may lead to misinterpretation of CBC data. Current Interpretive Data was last revised on 2017. Imm gran pct 0.2 % [facility] Comment: Interpretive Data Percent cell count reference ranges are not reported, since discordance with absolute values may lead to misinterpretation of CBC data. Current Interpretive Data was last revised on 2017. Lymphocyte pct 30.8 % [facility] Comment: Interpretive Data Percent cell count reference ranges are not reported, since discordance with absolute values may lead to misinterpretation of CBC data. Current Interpretive Data was last revised on 2017. Monocyte pct 9.5 % [facility] Comment: Interpretive Data Percent cell count reference ranges are not reported, since discordance with absolute values may lead to misinterpretation of CBC data. Current Interpretive Data was last revised on 2017. Eosinophil pct 4.7 % [facility] Comment: Interpretive Data Percent cell count reference ranges are not reported, since discordance with absolute values may lead to misinterpretation of CBC data. Current Interpretive Data was last revised on 2017. Basophil pct 0.6 % [facility] Comment: Interpretive Data Percent cell count reference ranges are not reported, since discordance with absolute values may lead to misinterpretation of CBC data. Current Interpretive Data was last revised on 2017. Blood 07/11/2024 10:5 8 AM CDT 07/11/2024 1:54 PM CDT us Shawanda De La Cruz SUPERVISORY HISTORIAN LAB BLOOD ORDERABLES Final Result [facility] Department [place] [address] * (ABNORMAL) CBC with auto differential (07/11/2024 10:58 AM CDT) WBC 6.23 3.80 - 9.90 K/cumm Hgb 10.4(L) 11.9 - 15.5 g/dL [facility] Hct 33.1(L) 35.6 - 45.5 % [facility] Plt 121(L) 150 - 400 K/cumm [facility] MPV 13.3(H) 9.1 - 12.3 fL [facility] RBC 3.78(L) 3.90 - 5.20 M/cumm [facility] MCV 87.6 81.3 - 96.4 fL [facility] MCH 27.5 27.1 - 33.3 pg [facility] MCHC 31.4(L) 32.3 - 35.7 g/dL [facility] RDW CV 15.6(H) 11.1 - 14.9 % [facility] RDW SD 49.7(H) 35.7 - 48.1 fL [facility] NRBC abs 0.00 0.00 - 0.01 K/cumm [facility] Blood 07/11/2024 10:5 8 AM CDT 07/11/2024 1:54 PM CDT Shawanda De La Cruz NP LAB BLOOD ORDERABLES Final Result Performing Organization Address [facility] Co de Phone Number [place] [address] * (ABNORMAL) Erythrocyte sedimentation rate (07/11/2024 10:58 AM CDT) Pathologist [facility] Erythrocyte sedimentation rate 91(H) 1 - 30 mm/hr Blood 07/11/2024 10:5 8 AM CDT 07/11/2024 1:54 PM CDT Shawanda De La Cruz NP LAB BLOOD ORDERABLES Final Result Performing Organization Address [facility] Co de Phone Number [facility] [place] [address] * CRP (acute phase) (07/11/2024 10:58 AM CDT) [facility] CRP 1.0 <=10.0 mg/L Blood 07/11/2024 10:5 8 AM CDT 07/11/2024 2:01 PM CDT Shawanda De La Cruz NP LAB BLOOD ORDERABLES Final Result Performing Organization Address City/[facility] Co de Phone Number [place] [address] * (ABNORMAL) Comprehensive metabolic panel (07/11/2024 10:58 AM CDT) Pathologist [facility] Sodium 142 135 - 145 mmol/L Potassium, pl 5.0(H) 3.3 - 4.9 mmol/L [facility] Chloride 106 97 - 110 mmol/L [facility] CO2 27 22 - 32 mmol/L [facility] Anion gap 9 2 - 15 mmol/L [facility] BUN 53(H) 6 - 25 mg/dL [facility] Creatinine 1.73(H) 0.60 - 1.10 mg/dL [facility] Glucose 115 70 - 199 mg/dL [facility] Comment: Interpretive Data Fasting glucose >/= 126 [...] 2022. Calcium 9.4 8.5 - 10.3 mg/dL [facility] Bilirubin, total 0.3 0.1 - 1.2 mg/dL [facility] Protein, pl 7.6 6.5 - 8.5 g/dL [facility] Albumin 3.6 3.5 - 5.0 g/dL [facility] Alk phos 121 40 - 130 Units/L [facility] ALT 24 7 - 45 Units/L [facility] AST 35 10 - 45 Units/L [facility] Blood 07/11/2024 10:5 8 AM CDT 07/11/2024 2:01 PM CDT Shawanda De La Cruz SUPERVISORY HISTORIAN LAB BLOOD ORDERABLES Final Result [facility] Department [place] [address] * (ABNORMAL) eGFR (04/30/2024 2:40 PM MOTION PICTURE CAMERAMAN) eGFR 44(L) >=60 mL/min/1. 73 m2 Comment: [...] last reviewed 2020. Blood 04/30/2024 2:40 PM MOTION PICTURE CAMERAMAN 04/30/2024 11:04 PM MOTION PICTURE CAMERAMAN us Stacy Hernandez NP LAB BLOOD ORDERABLES Valery l Result Performing Organization Address [facility] Co de Phone Number [facility] [address] [address] [employer] [place] [address] * (ABNORMAL) Albumin Creatinine Ratio, Urine (04/30/2024 2:40 PM MOTION PICTURE CAMERAMAN) Pathologist [facility] Albumin Ur 3,067.5 mg/L Comment: Interpretive Data No reference range established. Current interpretive data was last revised 2018. Creatinine Ur 81.5 mg/dL [facility] Comment: Interpretive Data No reference range established. Current interpretive data was last revised 2018. Albumin Creatinine Ratio, Ur 3,764(H) 1 - 29 mg/g [facility] Urine 04/30/2024 2:40 PM MOTION PICTURE CAMERAMAN 04/30/2024 11:00 PM MOTION PICTURE CAMERAMAN us Stacy Hernandez NP LAB URINE ORDERABLES Valery l Result Performing Organization Address [facility] [facility] [place] [facility] Co de Phone Number [facility] [address] [place] [address] * TSH (04/30/2024 2:40 PM MOTION PICTURE CAMERAMAN) Thyroid Stimulating Hormone 2.51 0.30 - 4.20 mcIUnit/mL Blood 04/30/2024 2:40 PM [employer]URE CAMERAMAN 04/30/2024 11:00 PM [employer] PI[employer] CAMERAMAN us Stacybruno Hernandez SUPERVISORY HISTORIAN LAB BLOOD ORDERABLES Valery l Result Performing Organization Address [facility] Co de Phone Number [facility] [address] [place] [address] * T4, free (04/30/2024 2:40 PM MOTION PICTURE CAMERAMAN) Pathologist [facility] Free T4 1.27 0.90 - 1.70 ng/dL Blood 04/30/2024 2:40 PM [employer]ION [employer]URE CAMERAMAN 04/30/2024 11:00 PM [employer] PI[employer]URE CAMERAMAN us Stacy Hernandez SUPERVISORY HISTORIAN LAB BLOOD ORDERABLES Valery l Result Performing Organization Address [facility] de Phone Number [facility] [address] [address] [place] [address] * Lipid panel (04/30/2024 2:40 PM MOTION PICTURE CAMERAMAN) Pathologist [facility] Cholesterol 119 30 - 199 mg/dL Comment: [...] NCEP Expert Panel. Circulation 2004;110:227 3. Avi Bartlett al. SHELBI Cardiol. 2020 June 27;5(5):540-548. doi: [...] 2 [facility] Blood 04/30/2024 2:40 PM [employer]ION PI[employer]URE CAMERAMAN 04/30/2024 11:00 PM [employer]URE CAMER[employer] us Stacy Heranndez NP LAB BLOOD ORDERAB[place] [address] [address] [place] [address] * (ABNORMAL) Comprehensive metabolic panel (04/30/2024 2:40 PM MOTION PICTURE CAMERAMAN) Sodium 137 135 - 145 mmol/L Potassium, [...] Units/L [facility]ER CH Blood 04/30/2024 2:40 PM MOTION PICTURE CAMERAMAN 04/30/2024 11:00 PM [employer] PI[employer]URE CAMERAMAN us Stacy Hernandez SUPERVISORY HISTORIAN LAB BLOOD ORDERABLES Valery l Result [facility] [address] [address] [place] [address] * (ABNORMAL) POCT hemoglobin A1c (04/30/2024 1:58 PM MOTION PICTURE CAMERAMAN) [facility] Hemoglobin A1C, POC 8.0 4.0 - 5.6 % Blood 04/30/2024 1:58 PM [employer]ION PI[employer]URE CAMERAMAN us Stacy Hernandez NP POINT OF CARE TEST ORDERA BLES Final Result * (ABNORMAL) POCT glucose (04/30/2024 1:58 PM MOTION PICTURE CAMERAMAN) [facility] Glucose Blood, POC 324 mg/dL Blood 04/30/2024 1:58 PM [employer]ION PI[employer]URE CAMERAMAN Stacy Hernandez NP POINT OF CARE TEST ORDERA BLES Final Result * (ABNORMAL) Comprehensive metabolic panel (04/27/2024 2:21 AM MOTION PICTURE CAMERAMAN) [facility] SCRIBED Sodium 134(A) 136 - 145 mmol/L [...] Units/L EXTERNAL LAB SCRIBED eGFR in NonAfrican [place] 37 <60 - NA EXTERNAL LAB Blood 04/27/2024 2:21 AM MOTION PICTURE CAMERAMAN us Historical Provider LAB BLOOD ORDERABLES Edit ed Result - Final EXTERNAL LAB * Dexa Axial Skeleton Bone Density 1 or 2 Site (04/02/2024 11:04 AM MOTION PICTURE CAMERAMAN) Anatomical Region Laterality Modality Body N/A Radiographic Sheron ging Narrative 04/02/2024 2:27 PM [employer]ION PI[employer]URE CAMERAMAN Patient Name: Aleyda Dobbs Date of : 1950 Date of scan: 04/02/2024 Bone mineral density was performed on a Holo[employer] a Boat Discovery Densitometer. Based on machine cross-calibration and [...] density scan were prepared by Agnes Valente)(Vivek)() [employer] who is accredited by the International Society of Clinical Densitometry. The overall patient assessment and scan interpretation were performed by Chacho Sanon M.D. who is certified by the International Society of Clinical Densitometry. [id number] Shawanda De La Cruz NP IMG DXA PROCEDURES Final R esult * (ABNORMAL) DIABETES EYE EXAM (09/04/2023 8:55 AM CDT) Historical Provider HEALTH MAINTENANCE Final Result * Hepatitis panel, acute Blood (07/03/2023 10:42 AM CDT) Hep A IgM Nonreactive Nonreactive Hep B core IgM Nonreactive Nonreactive CERNER BJ Hep C Ab Nonreactive Nonreactive CERNER [facility] Comment:Antibodies to HCV no t detected. Does NOT exclude the possibility of recent exposure to HCV. Current interpretive data was last revised on 21 HepBsAg Nonreactive Nonreactive [facility] Blood 07/03/2023 10:4 2 AM CDT 07/03/2023 2:00 PM CDT Shawanda De La Cruz NP LAB MICROBIOLOGY - GENERAL ORDERABLES Final Result [facility] [place] [address] from Last 3 Months or Most Recently Relevant to Health Maintenance Insurance MEDICARE [employer] OPEN ACCESS MEDICARE [employer] ACCESS [employer] OPEN ACCESS MEDICARE [employer] OPEN ACCESS Advance Directives For more information, please contact: [phone] * Full Code (Latest Code Status on File) Date Activated Date Inactivated Comments 07/20/2020 2:30 PM 07/21/2020 6:17 PM * Full Code Date Activated Date Inactivated Comments 08/14/2018 8:57 PM 08/15/2018 6:35 PM Care Teams Talk Show Host Relationship Specialty Start Date End Date Charles Armendariz DO PCP - General 05/27/16 David Vanegas MD [address] [place] [address] Consulting Physician Cardiology 07/20/18
--- OUTSIDE RECORDS SUMMARY | 2024-07-17 13:03 | XMS_ITS | Encounter Summary ---
Author Organization [facility] Address 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 Gender Identity Not on file Sexual Orientation Not on file documented as of this encounter Plan of Treatment Upcoming Encounters Date Type Department Care Team (Late st Contact Info) Description 07/31/2024 9:30 AM CDT Office Visit [facility] Oncology and Hematology - [place] [address] [facility] [address] [place] [address] Ray Richards MD [address] [place] [address] documented as of this encounter Visit Diagnoses Diagnosis Unspecified hearing loss documented in this encounter Care Teams Shop Superintendent Relationship Specialty Start Date End Date Charles Armendariz DO [address] [facility] [facility] [address] [place] [address] PCP - General Internal Medicine 11/04/22 documented as of this encounter
--- OUTSIDE RECORDS SUMMARY | 2024-07-17 13:03 | XMS_ITS | Data Portability ---
Author Organization [facility]STIAN[facility] Henning Address [address] [place] [address] Care Team Providers Care Color Strainer Name Role Phone ELVIN ROSE Design Engineering Specialist Assessment Encounter Date Assessment Date Assessment LastModified [...] Go To The Location Of Their Choice, [address] 3 06:14:20 urinalys is, dipstick 2022 023 [facility] In-Office Order, Internal Use Only DO Not Attach Compendium DO Not Attach Compendium, Do Not Delete/merge, [id number] 3 10:02:27 culture, urine 2022 023 [facility] (Centralized Electronic Ordering - All Locations), Patient Can Go To The Location Of Their Choice, [address] 3 06:14:08 urinalys is, dipstick 2019 myranda In-Office Order, Internal Use Only DO Not Attach Compendium DO Not Attach Compendium, Do Not Delete/merge, [address] 0 15:19:43 culture, urine 2019 [place] [facility], 2022 Kang Mccormick, [address], [address], 0 06:12:47 bacteria l vaginosi s panel, vaginal 2019 [place] [facility] (Centralized Electronic Ordering - All Locations), Patient Can Go To The Location Of Their Choice, [address] 0 06:12:46 culture, vaginal/ rectal, streptoc occus group B 2019 [place] [facility] ([facility] - All [facility]), Patient Can Go To The Location Of Their Choice, [address] 0 06:12:47 Referral None recorded . Procedures None recorded . Surgeries None recorded . Imaging None recorded . Medication Orders benzonat ate 200 mg capsule 2023 024 [place] [facility][id number], [address] [facility], [place], [place], [id number], 4 09:38:18 Zithroma x Z-Kirt 250 mg tablet 2023 024 [place] [facility]39849, [address] [facility], [place], [place], [id number], 4 09:38:17 cetirizi ne 10 mg tablet 2023 024 [facility] #92351, [address] [place], [place], [id number], 4 09:38:18 estradio l 0.01% (0.1 mg/gram) vaginal cream 2022 024 [facility]10382, [address] [place], [place], [id number], 4 09:03:10 estradio l 0.01% (0.1 mg/gram) vaginal cream 2022 023 [facility] #12946, [address] [place], [place], [id number], 4 09:01:41 estradio l 0.01% (0.1 mg/gram) vaginal cream 2022 023 [facility] #50718, [address] [place], [place], [id number], 4 09:01:41 Premarin 0.625 mg/gram vaginal cream 2019 020 [facility], [address] [place] [address], [id number], 3 13:59:43 ciproflo xacin 250 mg tablet 2019 020 [facility], [address] [place] [address], [id number], 3 14:21:14 Patient TargetsNo targets recorded. Patient Instructions Encounter Date Encounter Id Patient Instructions Last Modified By Organization Details Last Modified Time 12/05/2019 [id number] influenza (flu) vaccine: care instructions myranda Not available 12/05/2019 15:19:43 atrophic vaginitis: care instructions [email or web address] Not available 12/05/2019 13:29:10 05/31/2022 [id number] atrophic vaginitis: care instructions Not available 05/31/2022 09:44:32 Urge Incontinence: Care Instructions Not available 05/31/2022 09:44:18 Stress Incontinence: Care Instructions Not available 05/31/2022 09:44:18 kegel exercises: care instructions Not available 05/31/2022 09:44:18 bladder training: care instructions Not available 05/31/2022 09:44:18 A healthy lifestyle: care instructions Not available 05/31/2022 09:12:13 09/09/2022 [id number] atrophic vaginitis: care instructions Not available 09/09/2022 15:50:24 A healthy lifestyle: care instructions Not available 09/09/2022 15:50:24 12/09/2022 [id number] atrophic vaginitis: care instructions Not available 12/09/2022 15:01:23 A healthy lifestyle: care instructions Not available 12/09/2022 15:01:23 04/17/2023 [id number] body mass index: care instructions [email or web address] Not available 04/17/2023 09:38:09 learning about healthy weight [email or web address] Not available 04/17/2023 09:38:09 upper respiratory infection (cold): care instructions [email or web address] Not available 04/17/2023 09:38:09 Reason for Referral None Reported. Results Created Date Observation Date Name Description Value Unit Range Abnormal Flag Note LastModifiedBy Organization Detail LastModifiedTime 12/05/19 20 12/05/2019 urina lysis , dipst ick Leukocytes Negati ve Not Available In-Office Order Internal Use Only DO Not Attach Compendium DO Not Attach Compendium, Do Not Delete/merge, [id number] 12/05/2019 12:30:15 12/05/19 20 12/05/2019 urina lysis , dipst ick Nitrite positi ve Not Available In-Office Order Internal Use Only DO Not Attach Compendium DO Not Attach Compendium, Do Not Delete/merge, [id number] 12/05/2019 12:30:15 12/05/19 20 12/05/2019 urina lysis , dipst ick Urobilinogen .2 Not Available In-Of fice Order Internal Use Only DO Not Attach Compendium DO Not Attach Compendium, Do Not Delete/merge, [id number] 12/05/2019 12:30:15 12/05/19 20 12/05/2019 urina lysis , dipst ick Protein 300 Not Available In-Office Order Internal Use Only DO Not Attach Compendium DO Not Attach Compendium, Do Not Delete/merge, [id number] 12/05/2019 12:30:15 12/05/19 20 12/05/2019 urina lysis [...] 12/05/2019 urina lysis , dipst ick Specific [place] 1.030 Not Available In-Off ice Order Internal [...] DO Not Attach Compendium, Do Not Delete/merge, [id number] 12/05/2019 12:30:15 12/05/19 20 12/05/2019 urina lysis , dipst ick Glucose Negati ve Not Available In-Office Order Internal Use Only DO Not Attach Compendium DO Not Attach Compendium, Do Not Delete/merge, [id number] 12/05/2019 12:30:15 12/05/1912/07/2019 bacte rial vagin osis panel , vagin al trich vag by ALBERTO Negati ve negati ve Not Available [facility] [address] [place], [address], 12/11/2019 06:12:46 12/05/1912/07/2019 bacte rial vagin osis panel , vagin al chlamydia trachomatis, ALBERTO Negati ve negati ve Not Available [facility] ([facility]) [address] [place], [address], 12/11/2019 06:12:46 12/05/1912/07/2019 bacte rial vagin osis panel , vagin al neisseria gonorrhoeae, ALBERTO Negati ve negati ve Not Available [facility] ([facility]) [address] [place], [address], 12/11/2019 06:12:46 12/05/1912/08/2019 bacte rial vagin osis panel , vagin al hsv 1 ALBERTO Negati ve negati ve Not Available [facility] ([facility]) [address] [place], [address], 12/11/2019 06:12:46 12/05/1912/08/2019 bacte rial vagin osis panel , vagin al hsv 2 ALBERTO Negati ve negati ve Not Available [facility] ([facility]) [address] [place], [address], 12/11/2019 06:12:46 12/05/1912/11/2019 bacte rial vagin osis panel , vagin al atopobium vaginae Low - 0 score Not Available [facility] ([facility]) [address] [place], [address], 12/11/2019 06:12:46 12/05/1912/11/2019 bacte rial vagin osis panel , vagin al bvab 2 Low - 0 score Not Available [facility] ([facility] [address] [place], [address], 12/11/2019 06:12:46 12/05/1912/11/2019 bacte rial vagin osis [...] e zachary cteri stics deter mined by [employer]. It has not been clear ed or appro cristian by the Food and Drug Admin istra tion. The FDA has deter mined that such clear ance or appro daniel is not neces radha. Not Available [facility] ([facility]) [address] [place], [address], 12/11/2019 06:12:46 12/05/1912/11/2019 bacte rial vagin osis panel , vagin al janice albicans, ALBERTO Negati ve negati ve Not Available [facility] ([facility]) [address] [place], [address], 12/11/2019 06:12:46 12/05/1912/11/2019 bacte rial vagin osis panel , vagin al janice glabrata, ALBERTO Negati ve negati ve Not Available [facility] ([facility] [address] [place], [address], 12/11/2019 06:12:46 12/05/1912/07/2019 cultu re, vagin al/re [...] n is noted . Not Available [facility] ([facility]) [address] [facility], [place], [address], 12/11/2019 06:12:47 12/05/1912/08/2019 cultu re, urine urine culture, routine Final report abnormal Not Available [facility] ([facility] [address] [facility], [place], [address], 12/11/2019 06:12:47 12/05/1912/08/2019 cultu re, urine result [...] Prote us mirab ilis. Not Available [facility] ([facility] [address] [facility], [place], [address], 12/11/2019 06:12:47 12/05/1912/08/2019 cultu re, urine antimicrobia [...] thopr im/Rankin lfa S Not Available [facility] ([facility] [address] [facility], [place], [address], 12/11/2019 06:12:47 06/01/1906/02/2022 URINE CULTU RE, ROUTI NE urine culture, routine FINAL REPORT Not Available [facility] [address] [facility], [place], [address], 06/02/2022 06:14:07 06/01/1906/02/2022 URINE CULTU RE, ROUTI NE result 1 COMMEN T Cultu re shows less than 10,00 0 colon y formi ng units of bacte edy per allison liter of urine . This colon y count is not gener ally consi dered to be clini samra signi will t. Not Available [facility] ([facility] [address] [place], [address], 06/02/2022 06:14:07 06/01/19 23 06/01/2022 NUSWA B BV AND BRIANNA DA, ALBERTO atopobium vaginae LOW - 0 score Not Available [facility] [address] [facility], [place], [address], 06/02/2022 06:14:19 06/01/19 23 06/01/2022 NUSWA B BV AND BRIANNA DA, ALBERTO bvab 2 LOW - 0 score Not Available [facility] [address] [place], [address], 06/02/2022 06:14:19 06/01/19 23 06/01/2022 NUSWA B [...] Drug Admin istra tion. Not Available [facility] ([facility]) [address] [facility], [place], [address], 06/02/2022 06:14:19 06/01/19 23 06/01/2022 NUSWA B BV AND BRIANNA DA, ALBERTO janice albicans, ALBERTO NEGATI VE negati ve Not Available [facility] ([facility]) [address], [place], [address], 06/02/2022 06:14:19 06/01/19 23 06/01/2022 NUSWA B BV AND BRIANNA DA, ALBERTO janice glabrata, ALBERTO NEGATI VE negati ve Not Available [facility] [address] [facility], [place], [address], 06/02/2022 06:14:19 06/01/19 23 05/31/2022 urina lysis [...] 05/31/2022 urina lysis , dipst ick Specific [place] 1.025 Not Available In-Off ice Order Internal [...] respiratory culture Final report Not Available [facility] [address] [facility], [place], [address], 09/13/2022 07:14:00 09/10/19 23 09/13/2022 UPPER RESPI RATOR Y CULTU RE result 1 Commen t Routi ne respi rator y jason Not Available [facility] [address] [facility], [place], [address], 09/13/2022 07:14:00 09/10/19 23 09/14/2022 PATHO LOGY REPOR T . Commen t Mater ial submi tted: . PART A: vagin a - VAGIN AL BIOPS Y PART B: vagin a - VAGIN AL BIOPS Y #2 Not Available [facility] [address] [facility], [place], [address], 09/14/2022 17:10:11 09/10/19 23 09/14/2022 PATHO LOGY [...] NT FOLLO W-UP ARE RECOM JANETTE Knight [facility] 09/14 1042 Local Not Available [facility] [address] [facility], [place], [address], 09/14/2022 17:10:11 09/10/19 23 09/14/2022 PATHO LOGY REPOR T . Commen t Elect margarita caba d: . Onel awan MD, Patho logis t Not Available [facility] [address] [facility], [place], [address], 09/14/2022 17:10:11 09/10/19 23 09/14/2022 PATHO LOGY [...] FELIPE 09/12 1054 Local Not Available [facility] [address] [place], [address], 09/14/2022 17:10:11 09/10/19 23 09/14/2022 PATHO LOGY REPOR T . Commen t Patho logis t provi ded ICD-1 0: L82.1 Not Available [facility] [address] [place], [address], 09/14/2022 17:10:11 09/10/19 23 09/14/2022 PATHO LOGY REPOR T . Commen t CPT . 42325 1, 03574 2 Not Available [facility] ([facility] [address] [place], [address], 09/14/2022 17:10:11 10/08/1910/07/2020 MAMMO , scree guerda, bilat eral No observ ation record ed. [email or web address] [facility] [address] [place], [address], 11/19/2020 12:35:37 12/01/1911/30/2022 MAMMO , scree guerda, bilat eral No observ ation record ed. [address], [place], [address], 12/05/2022 10:12:44 12/01/1911/30/2022 MAMMO , scree guerda, bilat eral No observ ation record ed. [facility] [address] [place], [address], 12/01/2022 15:59:09 Result Notes None recorded. Problems Name Problem SNOMED Code Status Onset Date Resolution Date Notes Provider Name and Address Organization Details Recorded Time Morbid obesity 196834527 Active 2019 Eduardo De Los SantosKaya null, [place] [facility] 0 15:34:32 Hypothyroid ism 01868095 Active 2019 Eduardo De Los [place] [facility] 0 15:55:57 Hypertensiv e disorder 72221819 Active 2019 Eduardo De [place] [facility] 0 15:56:02 Diabetes mellitus 66151199 Active 2019 Eduardo Kirkpatrick [place] [facility] 0 15:56:06 Hyperlipide silva 28236381 Active 2019 Eduardo Kirk[place] [facility] 0 15:56:18 Rheumatoid arthritis 37167396 Active 2022 FRANCISCO J SERRANO Attn: Salvador chavez,[address], [place], [address], [place] - [facility] 3 09:01:26 Menopause present 485016360 Active 2022 FRANCISCO J SERRANO Attn: Salvador chavez,[address] [place], [address], [place] - [facility] 3 09:03:40 Recurrent urinary tract infection 401782713 Active 2022 FRANCISCO J SERRANO Attn: Salvador chavez,[address] [place], [address], [place] [facility] 3 09:03:42 Liver enzymes level above reference range 930907817 Active 2022 FRANCISCO J SERRANO Attn: Salvador chavez,[address] [place], [address], [place] [facility] 3 09:04:52 Splenic hematoma 512692717 Active 2022 FRANCISCO J SERRANO Attn: Salvador chavez,[address] [place], [address], [place] [facility] 3 09:05:02 Partial thickness rotator cuff tear 707073129 Active 2022 FRANCISCO J SERRANO Attn: Salvador chavez,[address] [place], [address], [place] [facility] 3 09:05:19 Primary fibromyalgi a syndrome 84034836 Active 2022 FRANCISCO J SERRANO Attn: Salvador chavez,[address] [place], [address], [place] [facility] 3 09:05:32 Bilateral shoulder osteoarthri tis 6946923986212 08 Active 2022 FRANCISCO J SERRANO Attn: Salvador chavez,[address] [place], [address], [place] [facility] 3 09:05:58 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 FRANCISCO J SERRANO Attn: Salvador chavez,[address] [place], [address], [place] [facility] 3 09:06:06 Gastroesoph ageal reflux disease without esophagitis 380487594 Active 2022 FRANCISCO J SERRANO Attn: Salvador scott,[address] [facility], [place], [address], [place] [facility] 3 09:06:14 Obstructive sleep apnea syndrome 31276349 Active 2022 FRANCISCO J SERRANO Attn: Salvador chavez,[address] [facility], [place], [address], [place] [facility] 3 09:06:37 Gout 66154165 Active 2022 FRANCISCO J SERRANO Attn: Salvador chavez,[address] [place], [address], [place] [facility] 3 09:06:45 Anxiety 71854092 Active 2022 FRANCISCO J SERRANO Attn: Salvador chavez,[address] [place], [address], [place] [facility] 3 09:06:51 Major depressive disorder 849400314 Active 2022 FRANCISCO J SERRANO Attn: Salvador chavez,[address] [place], [address], [place] [facility] 3 09:06:58 Amputated big toe 287589131 Active 2022 FRANCISCO J SERRANO Attn: Salvador chavez,[address] [place], [address], [place] [facility] 3 09:07:44 Diabetic peripheral neuropathy 063879421 Active 2022 FRANCISCO J SERRANO Attn: Salvador chavez,[address] [place], [address], [place] [facility] 3 09:07:53 Problem Notes None recorded. Procedures Surgical History Date Name Laterality Status Provider Name and Address Organization Details Recorded Time 09/10/19 23 Shave Biopsy completed FRANCISCO J SERRANO Attn: Accounting,[address], [place], [address], [facility] 09/09/2022 16:09:52 05/01/19 20 Most Recent Mammogram completed Pascale Sherwood MA [facility] 12/05/2019 12:29:20 07/29/19 19 Orthopedic Surgery completed Rosario Corley MA [facility] 04/11/2019 15:29:51 06/06/19 18 Date of Last Pap Smear completed Rosario Corley MA [facility] 04/11/2019 15:26:57 02/27/19 15 Orthopedic Surgery completed Debra Magallanes MA [facility] 06/09/2014 11:55:20 02/27/19 13 Orthopedic Surgery completed Debra Magallanes MA [facility] 06/09/2014 11:55:20 02/27/19 11 Other completed Debra Magallanes MA [facility] 06/09/2014 11:55:20 02/27/19 11 Orthopedic Surgery completed Debra Magallanes MA [facility] 06/09/2014 11:55:20 02/27/19 08 Appendectomy completed eDbra Magallanes MA [facility] 06/09/2014 11:55:20 02/27/19 05 Other completed Debra Magallanes MA [facility] 06/09/2014 11:55:20 Imaging Results Imaging Date Name Status LastModified by Organiz ation Details LastModified Time 10/07/2020 MAMMO, screening, bilateral completed [email or web address] [place] [address] [address] [place], [address], 11/19/2020 12:35:37 11/30/2022 MAMMO, screening, bilateral completed [facility] [address] [place] [address] [place], [address], 12/05/2022 10:12:44 11/30/2022 MAMMO, screening, bilateral completed [facility] [address] [place], [address], 12/01/2022 15:59:09 Procedure Notes None recorded. Medical Equipment None Reported. Allergies Allergen ID Allergen Name Allergen Category Reaction Reaction Severity Criticality Documentation Date Start Date Code Code System Note Provider Name and Address Organization Details Recorded Time 082541 vancomyci n medicatio n hives moderate Not available 12/05/2019 97191 RxNorm Pascale Sherwood [place], [place] - [facility] 0 12:24:26 101728 Betadine medicatio n rash mild Not available 12/05/201923766 0 RxNorm MIGUEL ANGEL [place], [place] - [facility] 0 12:24:58 761604 lisinopri l medicatio n cough mild Not available 12/05/2019 91502 RxNorm MIGUEL ANGEL [place] [facility] 0 12:25:17 Medications Name Sig Start Date Stop Date [...] Not Available Not Available Not Available Lucie Reed U-300 SoloStar 300 unit/mL (3 mL) subcutaneou [...] Updated DateTime 12/05/2019 160.02 cm 40.4 kg/m2 378756.0 6 g 120 mm[Hg] 68 mm[Hg] Pascale Sherwood [place] - [facility] 0 12:33:59 Date Recorded Body height Body mass index (BMI) Body weight Heart rate Body temperature Oxygen saturation Oxygen saturation in Arterial blood by Pulse oximetry Systolic blood pressure Diastolic blood pressure Provider Name and Address Organization Details Last Updated DateTime 3 160.02 cm 40.1 kg/m2 167685. 28 g 84 /min 98.9 [degF] 94 % 94 % 116 mm[Hg] 70 mm[Hg] Pascale Beltran [place] - [facility] 3 08:44:28 Date Recorded Body height Body mass index (BMI) Body weight Heart rate Oxygen saturation Oxygen saturation in Arterial blood by Pulse oximetry Systolic blood pressure Diastolic blood pressure Provider Name and Address Organization Details Last Updated DateTime 3 160.02 cm 40.2 kg/m2 445552. 47 g 92 /min 94 % 94 % 128 mm[Hg] 70 mm[Hg] La Monterroso [place] - [facility] 3 14:37:58 Date Recorded Body height Body mass index (BMI) Body weight Body temperature Oxygen saturation Oxygen saturation in Arterial blood by Pulse oximetry Heart rate Systolic blood pressure Diastolic blood pressure Provider Name and Address Organization Details Last Updated DateTime 3 160.02 cm 40.5 kg/m2 315831. 5 g 98.5 [degF] 95 % 95 % 83 /min 126 mm[Hg] 72 mm[Hg] Elayne Fernandez [place] [facility] 3 14:30:21 Date Recorded Body height Body mass index (BMI) Body weight Body temperature Oxygen saturation Oxygen saturation in Arterial blood by Pulse oximetry Heart rate Systolic blood pressure Diastolic blood pressure Provider Name and Address Organization Details Last Updated DateTime 4 160.02 cm 37.4 kg/m2 47945.4 2 g 98.5 [degF] 98 % 98 % 100 /min 136 mm[Hg] 70 mm[Hg] Elayne Fernandez [place] [facility] 4 09:16:39 Social History Question Answer Notes LastModified by Organizat ion Details LastModified Time Tobacco Smoking Status Former Smoker 04/11/2019 pt states stopped smoking 1997 MIGUEL ANGEL [place], [place] [facility] 04/11/2019 15:28:20 Do You Have An Advance Directive? No Information not available 04/11/2019 Is Blood Transfusion Acceptable In An Emergency? Yes Information not available 04/11/2019 What Is Your Level Of Caffeine Consumption? Moderate Soda Coffee Information not available 04/11/2019 How Much Tobacco Do You Chew? None Information not available 04/11/2019 Which Illicit Or Recreational Drugs Have You Used? None Information not available 04/11/2019 Live Alone Or [...] Sexually Active? No Information not available 04/11/2019 How Much Tobacco Do You Smoke? No [email or web address] Information not available 04/11/2019 Do You Use Sunscreen Routinely? No Information not available 04/11/2019 On What Date Was Tobacco Cessation Counseling Provided? 12/05/2019 [email or web address] Information not available 12/05/2019 Sex: Unknown Functional Status Question Answer Note LastModified by Organizat ion Details LastModified Time Do you or have you ever used any other forms of tobacco or nicotine? No [email or web address] Information not available 05/31/2022 What is your level of alcohol consumption? None Information not available 04/11/2019 Do you or have you ever used smokeless tobacco? Never used smokeless tobacco Information not available 04/11/2019 Are you currently employed? No retired Information not available 04/11/2019 What is your occupation? retired Information not available 04/11/2019 Do you or have you ever used e-cigarettes or vape? Never used electronic cigarettes Information not available 04/11/2019 What is your exercise level? None Information not available 04/11/2019 Mental Status None recorded. Family History Relationship Description Onset Age of this Age Resolved Age Notes LastModified by Organization Details LastModified Time Father Malignant neoplasm of lung 71 [email or web address] Not available 06/11 10:29:37 Mother Diabetes mellitus 68 [email or web address] Not available 06/11 10:29:37 Medical History Condition Response Coronary Artery Disease N Blood Diseases N Kidney Cyst N Hyperthyroidism N Blood disorders N MRSA N Blood Transfusion N Emphysema N Depression N COPD N [...] Disorder N Colon Polyps N Heart Attack ([place]) N Diabetes N Cardiomyopathy N Blood Transfusions [...] split virus, quadrivalent, PF 8 completed Elayne Fernandez MIGUEL ANGEL [place] [facility] 12/09/2022 14:22:16 influenza, unspecified formulation 3 completed Elayne Fernandez [place] [facility] 12/09/2022 14:27:44 Influenza, split virus, quadrivalent, preservative 0 completed Pascalekevin [place], [place] [facility] 01/20/2020 17:59:24 Past Encounters Encounter ID Performer Location Encounter Start Date Encounter Closed Date Diagnosis/Indication Diagnosis SNOMED-CT Code Diagnosis ICD10 Code Diagnosis Note [id number] [facility] [address] [place] [phone] 06/09/2014 10:41:57 06/09/2014 13:37:25 Gynecologic examination 02997234 Screening mammography 23592292 [id number] [facility] [address] [place] [phone] 06/05/2017 14:50:45 06/05/2017 16:13:49 Gynecologic examination 04615414 Z01.419 Z11.51 Screening mammography 24 801179 Z12.31 Exposure t o sexually transmissible disorder 106888178 Z20.2 [id number] Eduardo Kirkpatrick [facility] ([facility] [address] [place] [id number] 04/11/2019 14:49:28 04/15/2019 10:24:43 Screening mammography 73065043 Z12.31 Urinary tr act infectious disease 16774796 N39.0 Morbid obesity 615154099 Z68.41 Dysfunctio n of urinary bladder 68304768 R39.89 OAB vs stress/urg e incontinen ce Menopausal syndrome 1237 59234 N95.9 [id number] MD Jagjit Penaloza ([facility]) [address] [place] [phone] 12/05/2019 11:39:11 12/09/2019 12:25:36 Recurrent urinary tract infection 450278268 N39.0 Administra tion of influenza vaccine 55135098 Z23 Atrophic vaginitis 03219 000 N95.2 Exposure t o sexually transmissible disorder [id number] Z20.2 [id number] FRANCISCO J SERRANO (Adult Med) [address] [place] [address] 05/31/2022 08:11:20 06/01/2022 09:41:02 Recurrent urinary tract infection [id number] N39.0 Following with Urology for recurrent UTIs, [...] than UTI, starting tx today Menopause present 393575 006 N95.1 WEnt through menopause around age 52, denies major issues with hot flashes, vaginal dryness (however no longer sexually active), and mood changes- discussed menopause diagnosis- likely atrophic vaginitis causing her vaginal symptoms Screening for malignant neoplasm of breast [id number] Z12.39 Last mammogram in 2021, ordered by PCP in [facility] [employer]- [facility]- Mammogram screening this year based on records Screening for malignant neoplasm of cervix 150749694 Z12.4 Last pap smear in 2017 and normal, pap smear prior to that was 05/2014 and also normal- no further pap smears needed at this time since prior pap smears normal over age of 65 Morbid obesity 234409755 E66.01 Advised decreased portion sizes, good food choices, limited eating out or fast food and eliminate soda and juice from diet. Advised physical activity daily and offered encouragem ent to continue with positive changes made so far. Depression screening 171 433561 Z13.31 PHQ 2/9 was negative in office today (0 out of 27) Increased frequency of urination 202904093 R35.0 Patient reporting x3-4 episodes of incontinen ce daily. Admits to chronic urinary frequency, urgency, stress incontinen ce and urge incontinen ce. Wears diapers daily- vaginal swab completed- provided informatio n on mixed urinary incontinen ce- consider pelvic floor PT in the future Ex-smoker 7540424 Z87.89 1 Prior history of smoking- keep up good work, continue to avoid Atrophic vaginitis 48813 000 N95.2 Presenting today with vaginal pruritus, irritation , and dryness. Atropy seen on exam- Start estradiol 0.01 % three time a week for 30 days- f/u in 3 months to check for improvemen t Non-neoplastic nevus 195 167641 I78.1 2 small skin nevi present on the left side of mons pubis, she is interested in getting them removed- plan for longer visit at next visit and will complete removal [id number] FRANCISCO J SERRANO (Adult [facility]) [address] [place] [address] 09/09/2022 14:06:24 09/12/2022 15:04:12 Non-neoplastic nevus 883705308 I78.1 3 small skin nevi present on the left side of mons pubis, she is interested in getting them removed#1: larger lesion more superior on the mons pubis#2: two smaller lesions more inferior on mons pubis- tolerated procedure well and bleeding controlled with pressure and silver nitrate Atrophic vaginitis 18343 000 N95.2 Originally presented with vaginal pruritus, irritation , and dryness. Atrophy seen on exam- c/w estradiol 0.01 % three time a week- f/u in 3 months to check for improvemen t Menopause present 741521 006 N95.1 Went through menopause around age 52, denies major issues with hot flashes, vaginal dryness (however no longer sexually active), and mood changes- discussed menopause diagnosis- likely atrophic vaginitis causing her vaginal symptoms Screening for malignant neoplasm of breast 846830084 Z12.39 Last mammogram in 2021, ordered by PCP in [facility] [employer]- Call [facility] to request records- Mammogram screening this year based on records Screening for malignant neoplasm of cervix 331309310 Z12.4 Last pap smear in 2018 and normal, pap smear prior to that was 05/2014 and also normal- no further pap smears needed at this time since prior pap smears normal over age of 65 Ex-smoker 6153783 Z87.89 1 Prior history of smoking- keep up good work, continue to avoid Depression screening 171 547267 Z13.31 PHQ 04/07 was negative in office today (0 out of 27) Morbid obesity 112328382 E66.01 Advised decreased portion sizes, good food choices, limited eating out or fast food and eliminate soda and juice from diet. Advised physical activity daily and offered encouragem ent to continue with positive changes made so far. Pain in throat 100162197 R07.0 At risk for yeast infection 2/2 DM, erythemato us on exam. Screening for malignant neoplasm of colon 211550319 Z12.11 Notes colonoscop y completed at [facility] in the last few years, will request those records [id number] FRANCISCO J SERRANO (Adult Med) [address] [place] [address] 12/09/2022 14:13:43 12/09/2022 15:00:50 Atrophic vaginitis 30316578 N95.2 Originally presented with vaginal pruritus, irritation [...] or once weekly as tolerated Menopause present 187057 006 N95.1 Went through menopause around age 52, denies major issues with hot flashes, vaginal dryness (however no longer sexually active), and mood changes- discussed menopause diagnosis- likely atrophic vaginitis causing her vaginal symptoms- discuss DEXA at next visit Screening for malignant neoplasm of cervix 139811073 Z12.4 Last pap smear in 2018 and normal, pap smear prior to that was 05/2014 and also normal- no further pap smears needed at this time since prior pap smears normal over age of 65 Ex-smoker 3204639 Z87.89 1 Prior history of smoking- keep up good work, continue to avoid Morbid obesity 831822108 E66.01 Advised decreased portion sizes, good food choices, limited eating out or fast food and eliminate soda and juice from diet. Advised physical activity daily and offered encouragem ent to continue with positive changes made so far. Genital warts 584338369 A63.0 Biopsy results from recent skin lesion removal revealed genital warts- discussed diagnosis with patient today, has not been sexually active for years and no additional lesions present in the past or currently [id number] MD Jagjit Soto (Adult Med) [address] [place] [address] 04/17/2023 08:58:08 04/19/2023 11:56:47 Acute upper respiratory infection 58792669 J06.9 Gargle with warm salt water once [...] for cleaning the machine. Depression screening 171 582103 Z13.31 PHQ9- {{Negative * Positive Mild Mode rate Sever e}} (0 out of 27) Mental hea lth screening 871052227 Z13.39 GAD7- {{Negative * Positive Mild Mode rate Sever e}} (1 out of 21) Body mass index 30+ - obesity 587843597 Z68.37 BMI 37.4 Health Concerns Section Related Observation LastModified by Organization Detai ls LastModified Time None Recorded Concern Status LastModified by Organization Details LastModified Time None Recorded Advance Directives Directive N: Payers Encounter Date Sequence Insurance Name Policy Number Policy Puga Covered Member ID Puga Member ID Guarantor Name 12/05/2019 1 [place] [id number] Aleyda Burlington [id number] Aleyda Burlington 12/05/2019 2 [place] Aleyda L Burlington [id number] Aleyda Dilia 05/31/2022 1 [place] [id number] Aleyda Burlington [id number] Aleyda Dilia 05/31/2022 2 [place] Aleyda L Dilia [id number] Aleyda Dilia 09/09/2022 1 [place] [id number] Aleyda Dilia [id number] Aleyda Burlington 09/09/2022 2 [place] Aleyda L Dilia [id number] Aleyda Dilia 12/09/2022 1 [place] [id number] Aleyda Burlington [id number] Aleyda Dilia 12/09/2022 2 [place] Aleyda L Burlington [id number] Aleyda Burlington 04/17/2023 1 [place] [id number] Aleyda Burlington [id number] Aleyda Burlington 04/17/2023 2 [place] Aleyda L Burlington [id number] Aleyda Burlington Notes Date Note Type Note Provider Name and Address Organization Details Recorded Time 12/05/2019 text/html Vaginal/Vulvar ProblemReported bypatient.Associated Symptoms:no vaginal itching; no vaginal irritation; no vaginal pain; no vulvar itching/irritation; no vulvar swelling/erythema; no vulvar pain; no vulvar lesions; no pelvic pain; no dyspareunia; no dyruria; no fever; no abdominal pain 69 yo F presenting for vulvar itching x2-3 weeks. Her curriculum advisory teacher discovered a UTI on routine UA and prescribed an antibiotic. She completed the course but the UTI persisted. The curriculum advisory teacher then referred her to a urologist. The urologist prescribed Macrobid. She just completed the course of Macrobid for 2 weeks. Today on UA she still has a UTI, but her symptoms have resolved. Denies fever, chills, abnormal vaginal discharge, bleeding, dysuria, hematuria, N/V/D/C. Eduardo Kaya vaca, [facility] 12/05/2019 16:25:15 05/31/2022 text/html Aleyda Dobbs [...] April. She does follow a Urologist at [facility]? and was prescribed Keflex. Patient feels like the symptoms have not resolved as she continues to have pruritus and vaginal irritation. Denies any dysuria and hematuria. Last mammogram was in 2021 in [facility] by her PCP. Last pap smear in 2014 and 2017 with no concerning findings. Denies vaginal discharge, abnormal vaginal bleeding, breast pain, and nipple discharge. FRANCISCO J SERRANO Attn: [address]ing[address] [place], [address], [facility] 05/31/2022 14:39:58 09/09/2022 text/html 72yo F presentin g for skin lesion removal, discussed at previous visit. Also complaining of chronic dry throat that has felt mildly painful. No recent illness or current viral symptoms. History of DM and poor fitting dentures. No other complaints. FRANCISCO J SERRANO Attn: [address]ing[address] [place], [address], [facility] 09/09/2022 16:30:24 12/09/2022 text/html 72yo F presentin [...] hematuria. FRANCISCO J SERRANO Attn: [address] , [place], [address], [facility] 12/11/2022 12:38:13 04/17/2023 text/html 72-year-old fema le [...] N/V. NICHOLAS AVILES PA-C Attn: [address] [facility], [place], [address], [facility] 04/17/2023 09:38:38 OBGyn Episode No OBEpisode recorded.
--- OUTSIDE RECORDS SUMMARY | 2024-07-17 13:03 | XMS_ITS | Encounter Summary ---
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
--- OUTSIDE RECORDS SUMMARY | 2024-07-17 13:03 | XMS_ITS | Encounter Summary ---
Author Organization [facility] [employer] [facility] Address [address] [place] [address] Care Team Providers Care Interlocker Name Role Phone Charles Armendariz DO Primary Care Provider Encounter Details Date Type Department Care Team (Late Contact Info) Description 07/15/2024 Orders Only [facility] Oncology and Hematology [facility] [address] [place] [address] Ray Richards MD [address] [employer] [address] [place] [address] Chronic anemia Social History Tobacco Use [...] on file 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 Gender Identity Not on file Sexual Orientation Not on file documented as of this encounter Plan of Treatment Upcoming Encounters Date Type Department Care Team (Late Contact Info) Description 07/31/2024 9:30 AM CDT Office Visit [facility] Oncology and Hematology Kevin [address] [place] [address] Ray Richards MD [address] [employer] [address] [place] [address] documented as of this encounter Visit Diagnoses Diagnosis Chronic anemia Anemia, unspecified documented in this encounter Care Teams Interlocker Relationship Specialty Start Date End Date Charles Armendariz DO [address] [address] PCP - General Internal Medicine 11/04/22 documented as of this encounter
--- OUTSIDE RECORDS SUMMARY | 2024-07-17 13:03 | XMS_ITS | Data Portability ---
Author Organization [facility] [employer], Main Office Address [address] [place] [address] Care Team Providers Care Master Craftsman Name Role Phone GILBERTO ARMENDARIZ Primary Care Provider [phone] GILBERTO ARMENDARIZ Referring Provider Assessment Encounter Date Assessment Date Assessment LastModified by Organization Details LastModified Time 11/02/2023 11/02/2023 Assessment: Nicotine smoke: 1 ppd 3086-1551 = 18 pack years Dyspnea Mild OSAHS, AHI = 13 PLMD CKD with anemia Hypomagnesemia Plan: The following were reviewed and explained to the patient: [facility] home sleep study on 10/08/15, AHI = 13 [facility] titration sleep [facility] on 11/04/15, sleep [...] done as follows: Respiratory allergen panel for [facility] Serum IgE Serum total IgG, IgG1, IgG2, IgG3, IgG4 [id number]-[id number] in phenotype and level TB stimulated gamma [...] for now. We will try to obtain [facility] sleep study 2023. Patient will bring KOKI unit to [facility] for repair. PAP compliance downloaded and interpreted x 20 minutes. Data reviewed and explained to the patient. Average apnea/hypopnea index (AHI) is 1.4. Patient used PAP > 4 hours 89% of the time. PAP is set at 12 cmH2O. PAP will remain at 12 cmH2O. Keep ramp off. Keep humidifier at level 4. Keep EPR +2 multimedia project manager. Oxygen supplementation: none Patient is benefiting from [...] carrier. Patient will setup an appointment with [facility] for supplies and pressure adjustments. A [...] 01/17/2024 01/17/2024 Assessment: Nicotine smoke: 1 ppd 4362-5106 = 18 pack yearsDyspnea Mild OSAHS, AHI = 13 PLMD CKD with anemia Hypomagnesemia Mild persistent asthma Elevated BNP Plan: The following were reviewed and explained to the patient: [facility] home sleep study 10/08/15, AHI = 13 [facility] titration sleep study 11/04/15, sleep onset = 6.5 minutes, REM onset = 101.5 minutes, autoCPAP 5-15 cmH2O, PLMI = 7 [facility] titration sleep study 02/11/23 sleep onset [...] for now. We will try to obtain [facility] sleep study and echocardiogram from 2023. Patient will bring KOKI unit to [facility] for repair. PAP is set at 12 cmH2O. PAP will remain at 12 cmH2O. Keep ramp off. Keep humidifier at level 4. Keep EPR +2 multimedia project manager. Oxygen supplementation: none Patient is benefiting from [...] carrier. Patient will setup an appointment with [facility] for supplies and pressure adjustments. A [...] This note is dictated and transcribed by [employer]. Combustion Engineer variances may occur. Despite proofreading, typographical errors may occur. Occasional wrong-word or 'evwhb-n-bxrp' substitutions may have occurred due to the inherent limitations of voice recording. Read the chart carefully and recognize, using context, where substitutions have occurred. Not available 03/21/2024 14:50:26 05/02/2024 05/02/2024 Assessment: Nicotine smoke: 1 ppd 0290-2844 = 18 pack yearsDyspnea Mild OSAHS, AHI = 13 PLMD CKD with anemia Hypomagnesemia Mild persistent asthma Elevated BNP Plan: The following were reviewed and explained to the patient: [facility] home sleep study 10/08/15, AHI = 13 [facility] titration sleep study 11/04/15, sleep onset = 6.5 minutes, REM onset = 101.5 minutes, autoCPAP 5-15 cmH2O, PLMI = 7 [facility] titration sleep study 02/11/23 sleep onset [...] for now. We will try to obtain [facility] sleep study and echocardiogram from 2023. Patient will bring KOKI unit to [facility] for repair. PAP is set at 12 cmH2O. PAP will remain at 12 cmH2O. Keep ramp off. Keep humidifier at level 4. Keep EPR +2 multimedia project manager. Oxygen supplementation: none Patient is benefiting from [...] carrier. Patient will setup an appointment with [facility] for supplies and pressure adjustments. A [...] further management. Follow-up: 9 months, January 2025 [facility] Not available 05/02/2024 11:40:53 06/20/2024 06/20/2024 This note is dictated and transcribed by [employer]. Combustion Engineer variances may occur. Despite proofreading, typographical errors may occur. Occasional wrong-word or 'zymph-w-kfzy' substitutions may have occurred due to the inherent limitations of voice recording. Read the chart carefully and recognize, using context, where substitutions have occurred. Not available 06/24/2024 10:05:03 Plan of Treatment Reminders Order Date Submit Date Provider Last Modified By Organization Details Last Modified Time Details Appointments Establish ed Patient 2024 01:00P Rafael Saravia DPM Not available Not available Not available Any 15 2024 10:00A M Devin Benitez MD Not available Not available Not available Lab magnesium , serum or plasma 2024 025 [email or web address] [facility] (Lab), [address] [place], [address], 05/02/2024 11:42:26 magnesium , serum or plasma [address] [facility] (Lab), [address] [place], [address], 03/18/2024 17:29:00 alpha-1-a ntitrypsi n (aat) phenotype , serum [address] (Lab), [address] [place], [address], 02/08/2024 14:04:07 BNP (B-type natriuret ic peptide), serum or plasma [address] [facility] (Lab), [address] [place], [address], 11/02/2023 18:38:32 ige, total, serum [address] [facility] (Lab), [address] [place], [address], 11/13/2023 13:28:28 tb (M tuberculo sis), ifn-gamma eliane, blood [address] (Lab), [address] [place], [address], 02/08/2024 14:04:07 eosinophi l count, manual, blood (OBS) [address] (Lab), [address] [place], [address], 02/08/2024 14:04:[address] s 1+2+3+4, serum [address] (Lab), [address] [place], [address], 02/08/2024 14:04:07 respirato ry allergen panel, [facility] A, serum 2023 024 [email or web address] 2 [facility] (Lab), [address] [place], [address], 02/08/2024 14:04:07 respirato ry allergen panel - [facility] b 2023 024 [email or web address] 2 [facility] (Lab), [address] [place], [address], 02/08/2024 14:04:08 Referral None recorded. Procedures None recorded. Surgeries None recorded. Imaging None recorded. Medication Orders magnesium oxide 400 mg (241.3 mg magnesium ) tablet 2024 025 [id number], [address], [place], [id number], 05/02/2024 11:42:36 Advair Diskus 100 mcg-50 mcg/dose powder for inhalatio n 2024 025 [facility] #21119, [address], [place], [id number], 05/02/2024 11:42:39 albuterol sulfate HFA 90 mcg/actua tion aerosol inhaler 2024 025 [facility] #22179, [address], [place], [id number], 05/02/2024 11:42:34 magnesium oxide 400 mg (241.3 mg magnesium ) tablet 2023 024 [facility] #12373, [address], [place], [id number], 01/17/2024 12:00:06 Advair Diskus 100 mcg-50 mcg/dose powder for inhalatio n 2023 024 [facility] #66587, [address], [place], [id number], 01/17/2024 12:00:07 albuterol sulfate HFA 90 mcg/actua tion aerosol inhaler 2023 024 [facility] #71261, [address], [place], [id number], 01/17/2024 12:00:06 magnesium oxide 400 mg (241.3 mg magnesium ) tablet 2023 [facility] #34557, [address], [place], [id number], 11/02/2023 14:53:12 Patient TargetsNo targets recorded. Patient Instructions Encounter Date Encounter Id Patient Instructions Last Modified By Organization Details Last Modified Time 11/02/2023 [id number] methacholine challenge* - Please call patient to schedule. [email or web address] Not available 12/04/2023 17:52:47 05/02/2024 [id number] complete PFT w/ post bronchodilator spirometry* Not available 05/02/2024 11:42:26 Reason for Referral None Reported. Results Created Date Observation Date Name Description Value Unit Range Abnormal Flag Note LastModifiedBy Organization Detail LastModifiedTime 11/03/19 24 11/02/2023 compl ete PFT w/ post [facility] hodil ator lottie metry * No observ ation record ed. [facility] ([facility]) [address] [place], [address], 11/03/2023 12:49:10 01/17/20 24 01/16/2024 metha choli ne chall enge* No observ ation record ed. [facility] ([facility]) [address] [place], [address], 01/17/2024 11:11:40 01/17/20 24 02/11/2023 polys omnog [...] of amputatio n of left great toe 79272467853 749688 Active 2022 Not Available [facility] 3 07:32:08 Hammer toe 563687114 Active 2022 Not Available [facility] 3 07:32:08 Chronic depressio n 706136379 Active Not Available [facility] 3 07:32:08 Partial thickness rotator cuff tear 589356169 Active Not Available [facility] 3 07:32:09 Gastroeso phageal reflux disease 001712090 Active Not Available [employer] 3 07:32:09 Anemia 740145940 Active Not Available [facility] 3 07:32:09 Osteoarth ritis 765368004 Active Not Available [facility] 3 07:32:10 Hypothyro idism 02115677 Active Not Available [facility] 3 07:32:11 Obesity 890269875 Active Not Available [facility] 3 07:32:11 Bunion 754598979 Active 2022 Not Available [facility] 3 07:32:11 Diabetic periphera l neuropath y 624144861 Active 2022 Not Available [facility] 3 07:32:11 Anxiety 06434598 Active Not Available [facility] 3 07:32:12 Hyperlipi demia 10628386 Active Not Available [facility] 3 07:32:12 Wheezing 60480259 Completed Not Available [facility] 3 07:32:13 Essential hypertens ion 53383532 Active Not Available [facility] 3 07:32:13 Long-term current use of anticoagu lant 343702769 Active 2021 Not Available [facility] 3 07:32:14 Obstructi ve sleep apnea syndrome 71870939 Active Not Available [facility] 3 07:32:14 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 Not Available [facility] 3 07:32:15 Gout 31323861 Active Not Available [facility] 3 07:32:15 Primary fibromyal steven syndrome 02907899 Active Not Available [facility] 3 07:32:16 Flexion contractu re of toe joint 756471815 Active 2022 Clifton Saravia DPM [address], [place], [address] , [employer] 3 14:41:16 Sensorine ural hearing loss 52311305 Active 2022 Antoine Tanner MD [address], [address], [place], [address] , [employer] 3 14:29:40 Acquired hallux limitus of right great toe 47541954928 10551 Active 2022 Clifton Saravia DPM [address], [place], [address] , [employer] [facility] 3 16:39:13 Periodic limb movement disorder 187080674 Active 2023 Devin Benitez MD [address], [place], [address] , [employer] 4 11:48:29 Hypomagne semia 160840034 Active 2023 Devin Benitez MD [address], [place], [address] , [employer] [facility] 4 11:51:11 Mild persisten t asthma 336154754 Active 2023 Devin Benitez MD [address], [place], [address] , [employer] 4 11:41:36 Foot ulcer due to type 2 diabetes mellitus 15382654858 00 Active 2024 Clifton Saravia DPM [address], [place], [address] , [employer] 5 14:50:35 Hammer toe 484883717 Active 2024 Clifton Saravia DPM [address], [place], [address] , [employer] 5 14:51:19 History of amputatio n of right great toe 95845720637 503330 Active 2024 Clifton Saravia DPM [address], [place], [address] , [employer] 5 14:51:40 Diabetic on insulin 660920015 Active 2024 Clifton Saravia DPM [address], [place], [address] , [employer] 5 10:05:12 Dystrophi a unguium 43492835 Active 2024 Clifton Saravia DPM [address], [place], [address] , [employer] 5 10:05:20 Notes:Medical History: Anxie ty/Depression Sensorineural hearing loss [...] 1st toe amputation 2023 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 Procedures Surgical History Date Name Laterality Status Provider Name and Address Organization Details Recorded Time 06/21/19 25 Nail Debridement completed LUCIA [address], [place], [address], [facility] [facility] [employer] 06/24/2024 10:04:29 03/21/19 25 Nail Debridement completed Clifton Saravia DPM [address], [place], [address], [facility] [employer] 03/21/2024 14:48:29 10/23/19 24 Nail Debridement completed LUCIA [address], [place], [address], [facility] [employer] 10/23/2023 11:58:36 07/20/19 24 Nail Debridement completed LUCIA [address], [place], [address], [employer] 07/20/2023 15:16:22 06/06/19 24 Incision & Drainage Procedure completed Cameron Dan DPM [address], [place], [address], [facility] [employer] 06/06/2023 10:43:07 04/10/19 24 Nail Debridement completed LUCIA [address], [place], [address], [facility] [employer] 04/17/2023 10:52:28 12/23/19 23 Nail Debridement completed LUCIA [address], [place], [address], [facility] 12/26/2022 08:11:04 12/23/19 23 Joint Injection-Podia try 6217 completed Clifton Saravia DPM [address], [place], [address], [employer] [facility] [employer] 12/26/2022 08:10:33 09/23/19 23 Nail Debridement completed Clifton Saravia DPM [address], [place], [address], [employer] [facility] [employer] 09/22/2022 15:10:23 06/24/19 23 Nail Debridement completed Clifton Saravia DPM [address], [place], [address], [employer] [facility] [employer] 06/23/2022 14:40:20 procedure on elbow completed Not Available [facility] 04/27/2022 07:27:46 procedure on hand completed Not Available [facility] 04/27/2022 07:27:46 Imaging Results Imaging Date Name Status LastModified by Organization Details LastModified Time 11/02/2023 complete PFT w/ post bronchodilator spirometry* completed [facility] ([facility]) [address] [place], [address], 11/03/2023 12:49:10 01/16/2024 methacholine challenge* completed [facility] ([facility]) [address] [place], [address], 01/17/2024 11:11:40 02/11/2023 polysomnogram, titration study completed [facility] Information not available 01/17/2024 19:04:37 12/08/2023 US, echocardiogram, transthoracic, complete completed [facility] [employer] not available 01/17/2024 19:04:37 Procedure Notes None recorded. Medical Equipment None Reported. Allergies Allergen ID Allergen Name Allergen Category Reaction Reaction Severity Criticality Documentation Date Start Date Code Code System Note Provider Name and Address Organization Details Recorded Time 49948 Vibramyci n medicatio n other Not available Not available 04/27/202245994 5 RxNorm Not Available [facility] 3 07:37:15 78309 vancomyci n medicatio n hives Not available Not available 04/27/2022 34244 RxNorm Not Available [facility] 3 07:37:15 87324 valsartan medicatio n other Not available Not available 04/27/2022 04612 RxNorm Not Available [facility] 3 07:37:15 09258 lisinopri l medicatio n cough Not available Not available 04/27/2022 99845 RxNorm Not Available [facility] 3 07:37:15 33875 Betadine medicatio n rash Not available Not available 04/27/2022 68145 0 RxNorm Not Available [facility] 3 07:37:15 Medications Name Sig Start [...] Not Available Not Available Not Available Lucie Clark U-300 Insulin 300 unit/mL (1.5 mL) [...] Details Last Updated DateTime 4 160.02 cm 38.1 kg/m2 56899.3 6 g 84 /min 98.1 [degF] 122 mm[Hg] 70 mm[Hg] Kenton Colón CMA [facility] 4 11:16:29 Date Recorded Oxygen saturation Oxygen saturation in Arterial blood by Pulse oximetry Heart rate Respiratory rate Provider Name and Address Organization Details Last Updated DateTime 11/02/2023 93 % 93 % 84 /min 15 /min Devin Benitez MD [address], [address], [place], [address], [facility] [employer] [facility] [employer] 4 15:00:54 Date Recorded Body height Body mass index (BMI) Body weight Systolic blood pressure Diastolic blood pressure Provider Name and Address Organization Details Last Updated DateTime 01/17/2024 160.02 cm 38.1 kg/m2 13124.36 g 128 mm[Hg] 66 mm[Hg] Valentina Payne MA [facility] [employer] 4 11:26:17 Date Recorded Body temperature Heart rate Oxygen saturation Oxygen saturation in Arterial blood by Pulse oximetry Heart rate Respiratory rate Provider Name and Address Organization Details Last Updated DateTime 4 99.8 [degF] 99 /min 95 % 95 % 99 /min 15 /min Devin Benitez MD [address], [address], [place], [address], [facility] 4 12:03:46 Date Recorded Body height Body mass index (BMI) Body weight Heart rate Respiratory rate Oxygen saturation Oxygen saturation in Arterial blood by Pulse oximetry Systolic blood pressure Diastolic blood pressure Provider Name and Address Organization Details Last Updated DateTime 5 160.02 cm 38.1 kg/m2 30391.3 6 g 87 /min 14 /min 98 % 98 % 106 mm[Hg] 47 mm[Hg] Sun Millard [facility] 5 14:28:06 Date Recorded Body height Body mass index (BMI) Body weight Body temperature Heart rate Oxygen saturation Oxygen saturation in Arterial blood by Pulse oximetry Systolic blood pressure Diastolic blood pressure Provider Name and Address Organization Details Last Updated DateTime 160.02 cm 36.7 kg/m2 24372.6 2 g 98.1 [degF] 83 /min 97 % 97 % 108 mm[Hg] 64 mm[Hg] Valentina Payne MA [facility] 11:25:17 Date Recorded Heart rate Respiratory rate Provider Alisa araseli and Address Organization Details Last Updated DateTime 05/02/2024 83 /min 15 /min Devin Benitez MD [address] [facility] [facility] [address], [place], [address], [facility] 05/02/2024 11:43:19 Date Recorded Body height Body mass index (BMI) Body weight Provider Name and Address Organization Details Last Updated DateTime 06/20/2024 160.02 cm 36.7 kg/m2 80833.62 g Sun Millard [facility] 06/20/2024 14:23:30 Social History Question Answer Notes LastModified by Organizat ion Details LastModified Time Tobacco Smoking Status Former Smoker [employer], [facility] 04/10/2023 15:54:00 What Is Your Level Of Caffeine Consumption? Moderate [id number] Information not available 04/27/2022 In The 14 Days Before Symptom Onset, Have You Had Close Contact With A Laboratory-confirm ed COVID-19 While That Case Was Ill? No Information n ot available 04/10/2023 In The 14 Days Before Symptom Onset, Have You Had Close Contact With A Person Who Is Under Investigation For COVID-19 While That Person Was Ill? No Information not available 04/10/2023 Do You Have An Electrostatic Air Filter? No Information not available 01/17/2024 When Did You Quit Smoking? 16+yearssince gray 1997 Information not available 04/10/2023 Do You [...] Smoke? No Information no t available 01/17/2024 Have You Recently Traveled Abroad? No Information not available 04/10/2023 Sex: Unknown Functional Status Question Answer Note LastModified by Organizat ion Details LastModified Time Do you use any illicit or recreational drugs? No Information not available 04/10/2023 Do you or have you ever used any other forms of tobacco or nicotine? No Information not available 04/10/2023 What is your level of alcohol consumption? Occasional [id number] Information not available 04/27/2022 Have you been exposed to chemicals or toxins? not that aware of Information not available 01/17/2024 What is your occupation? n/a Information not available 04/10/2023 Mental Status Question Answer Note LastModified by Organization D etails LastModified Time Do you feel stressed (tense, restless, nervous, or anxious, or unable to sleep at night)? [id number] Information not available 01/17/2024 Family History Relationship Description Onset Age of this Age Resolved Age Notes LastModified by Organization Details LastModified Time Daughter Asthma Not available 03/18/2023 11:35:26 Medical History Condition Response DIABETES, TYPE Y HYPERTENSION Y Gynecological HistoryNo gynecological history recorded. Obstetrics History GPAL:G 0 P 0 0 0 0 Immunizations Vaccine Type Date Status Note Provider Nam e and Address Organization Details Recorded Time Influenza, high-dose, trivalent, PF 3 completed Not Available [facility] 04/27/2022 07:37:07 Influenza, high-dose, trivalent, PF 1 completed Not Available [facility] 04/27/2022 07:37:07 Influenza, high-dose, trivalent, PF 0 completed Not Available [facility] 04/27/2022 07:37:07 pneumococcal polysaccharide PPV23 0 completed Not Available [facility] 04/27/2022 07:37:07 COVID-19, mRNA, LNP-S, PF, 30 mcg/0.3 mL dose 1 completed Not Available [facility] 04/27/2022 07:37:08 COVID-19, mRNA, LNP-S, PF, 30 mcg/0.3 mL dose 1 completed Not Available [facility] 04/27/2022 07:37:08 Td (adult) 7 completed Not Available [facility] 04/27/2022 07:37:08 Past Encounters Encounter ID Performer Location Encounter Start Date Encounter Closed Date Diagnosis/Indication Diagnosis SNOMED-CT Code Diagnosis ICD10 Code Diagnosis Note [id number] [facility] [place] [address] [place] [address] 01/27/2021 00:00:00 01/27/2021 12:58:10 [id number] [facility] [place] [address] [place] [address] 04/15/2021 00:00:00 04/15/2021 14:21:47 [id number] [facility] _ATHENA_M IGRATION_ DEFAULT_1 _1 , 05/07/2021 00:00:00 05/10/2021 09:54:36 [id number] [facility] [place] [address] [place] [address] 07/09/2021 00:00:00 07/23/2021 17:10:07 [id number] [facility] _ATHENA_M IGRATION_ DEFAULT_1 _1 , 10/22/2021 00:00:00 10/26/2021 10:34:40 [id number] Clifton Saravia DPM [facility] [place] [address] [place] [address] 03/14/2022 00:00:00 03/14/2022 12:18:33 [id number] Clifton Saravia DPM [facility] [address] [place] [address] 06/23/2022 13:45:11 06/23/2022 14:45:21 Diabetic peripheral neuropathy 758544696 E11.42 Patient educated on neuropathy , diabetes, diabetic diet, and daily foot exams. Patient is to check feet daily for new wounds, blisters, redness to prevent infection and ulceration s to the feet. Patient will return to clinic in 3 months for diabetic foot workup. History of amputation of left great toe [id number] 7010199 Z89.412 secondary to history of toe amputation to the left foot with existing neuropathy the and plantar flexion contractur e of her toes patient would benefit greatly from diabetic shoes and insoles to prevent recurrent wounds of her feet. Flexion co ntracture of toe joint 246629519 M21.279 bilateral feetoffloa [employer]Rx diabetic shoes Dystrophia unguium 08673 009 L60.3 Nails 1 through 9 were debrided with sharp mechanical debridemen t without incident. Nails were debrided and greater than 50% length and thickness where needed. Obesity [id number] E66.9 recommend weight loss facilitate with PCP Dog bite - wound [id number] 05 W54.0XXA dorsal right footcontin ue daily wound careif signs of infection present seek medical attention immediatel yFollow-up in 1 week [id number] Clifton Saravia DPM [facility] [place] [address] [facility] [address] [place] [address] 07/05/2022 09:51:18 07/05/2022 10:44:16 Dog bite - wound [id number] W54.0XXA dorsal right footresolv ed paincontin ue daily wound careif signs of infection present seek medical attention immediatel yFollow-up in 1 week Blister of toe without infection [id number] S90.424D right 5th toehealedc ontinue supportive shoe gearFollow -up as needed [id number] Clifton Saravia DPM [facility] [place] [address] [place] [address] 09/22/2022 14:45:42 09/22/2022 15:28:11 Diabetic peripheral neuropathy 744295583 E11.42 Patient educated on neuropathy , diabetes, diabetic diet, and daily foot exams. Patient is to check feet daily for new wounds, blisters, redness to prevent infection and ulceration s to the feet. Patient will return to clinic in 3 months for diabetic foot workup.has not obtained diabetic shoes and inserts- we did check and have sent all for work to [facility]. Dystrophia unguium 46630 009 L60.3 Nails 1 through 9 were debrided with sharp mechanical debridemen t without incident. Nails were debrided and greater than 50% length and thickness where needed. History of amputation of left great toe [id number] 9806328 Z89.412 secondary to history of toe amputation to the left foot with existing neuropathy the and plantar flexion contractur e of her toes patient would benefit greatly from diabetic shoes and insoles to prevent recurrent wounds of her feet. [id number] Antoine Tanner MD [facility] [address] [place] [address] 12/01/2022 14:02:01 12/01/2022 14:30:56 Sensorineural hearing loss 28531320 H90.5 [id number] Clifton Saravia DPM [facility] [place] [address] [place] [address] 12/22/2022 15:40:56 12/26/2022 09:46:24 Acquired hallux limitus of right great toe [id number] 845626 M20.5X1 injection 4 mg dexamethas one phosphate right great toe metatarsop halangeal joint, 12/22/2022 Diabetes mellitus 435826 09 E11.40 continue PCP recommenda tion Diabetic p eripheral neuropathy 150290626 E11.42 Patient educated on neuropathy , diabetes, diabetic diet, and daily foot exams. Patient is to check feet daily for new wounds, blisters, redness to prevent infection and ulceration s to the feet. Patient will return to clinic in 3 months for diabetic foot workup.has not obtained diabetic shoes and inserts- we did check and have sent all for work to [facility]. Dystrophia unguium 15083 009 L60.3 Nails 1 through 9 were debrided with sharp mechanical debridemen t without incident. Nails were debrided and greater than 50% length and thickness where needed. History of amputation of left great toe 3216614750 2405364 Z89.412 secondary to history of toe amputation to the left foot with existing neuropathy the and plantar flexion contractur e of her toes patient would benefit greatly from diabetic shoes and insoles to prevent recurrent wounds of her feet. [id number] Clifton Saravia DPM [facility] [place] [address] [place] [address] 04/10/2023 15:52:59 04/17/2023 11:12:34 Diabetes mellitus 04558214 E11.40 continue PCP recommenda tion History of amputation of left great toe 4458659258 6733884 Z89.412 secondary to history of toe amputation to the left foot with existing neuropathy the and plantar flexion contractur e of her toes patient would benefit greatly from diabetic shoes and insoles to prevent recurrent wounds of her feet. Dystrophia unguium 14758 009 L60.3 Nails 1 through 9 were debrided with sharp mechanical debridemen t without incident. Nails were debrided and greater than 50% length and thickness where needed. [id number] Cameron Dan DPM [facility] [address] [address] 06/06/2023 09:50:06 06/06/2023 10:49:15 Abscess of skin and/or subcutaneous tissue 72774090 L02.91 [id number] Cameron Dan DPM [facility] [address] [address] 06/12/2023 09:52:01 06/12/2023 11:19:21 [id number] Clifton Saravia DPM [facility] [place] [address] [place] [address] 07/20/2023 14:23:03 07/21/2023 10:41:03 Skin eschar 717742701 R23.4 left 2nd toekeep clean and dryallow to healif not healed in 1 week return office Blood blister 492164364 T14.8XXA left 3rd toeas above Dystrophia unguium 81881 009 L60.3 Nails 1 through 9 were debrided with sharp mechanical debridemen t without incident. Nails were debrided and greater than 50% length and thickness where needed. 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 D50.8 E83.42 [id number] Clifton Saravia DPM [facility] [place] [place] [address] [place] [address] 08/24/2023 11:38:20 08/24/2023 14:23:44 Bunion 734206938 M21.619 recommend offloading supportive shoe gear wide soft toe box shoes recommende dIf continues to be problemati c will require surgery currently denies surgery Blood blister 262574271 T14.8XXA medial great toe rightofflo adingkeep the area clean and dry dailyFollo w-up in 1-2 weeks [id number] Clifton Saravia DPM [facility] [place] [address] [place] [address] 10/23/2023 11:01:33 10/23/2023 16:47:22 Open wound of right great toe 2389491873 7129069 S91.101A right great toe- full-thick ness secondary to callusing and skin fissurecon tinue offloading Rx- extra-dept h, neoprene style toe box diabetic shoesmonit or for infection at present seek medical attention immediatel ySeeking wound care with [facility] Open wound of toe of left foot [id number] 9539890 S91.105A left 2nd- full-thick ness, fibrotic wound bed no acute signs of infectionc ontinue offloading wound care dailyseeki ng wound care with [facility] History of amputation of left great toe 6547226579 6248631 Z89.412 secondary to history of toe amputation to the left foot with existing neuropathy the and plantar flexion contractur e of her toes patient would benefit greatly from diabetic shoes and insoles to prevent recurrent wounds of her feet. Diabetic p eripheral neuropathy 760231144 E11.42 Rx diabetic shoe gear- neoprene style toe box shoe, extra-dept h Dystrophia unguium 89219 009 L60.3 Nails 1 through 9 were debrided with sharp mechanical debridemen t without incident. Nails were debrided and greater than 50% length and thickness where needed. [id number] Devin Benitez MD [address] [address] 11/02/2023 10:56:19 11/03/2023 10:45:37 Dyspnea on exertion 73971918 R06.09 R05.3 D89.9 T78.40XA Obstructiv e sleep apnea syndrome 48465328 G47.33 Periodic l imb movement disorder 609318733 G47.61 D50.8 E83.42 Hypomagnesemia 239974545 E83.42 [id number] Devin Benitez MD [address] [address] 01/17/2024 10:40:32 02/26/2024 11:51:28 Obstructive sleep apnea syndrome 23737412 G47.33 Periodic l imb movement disorder 814481917 G47.61 Hypomagnesemia 831746349 E83.42 Mild persi stent asthma 391495922 J45.30 [id number] Clifton Saravia DPM [facility] [place] [place] [address] [place] [address] 03/21/2024 14:22:44 03/22/2024 13:46:52 Foot ulcer due to type 2 diabetes mellitus 8441291546 100 E11.621 right 2nd toedaily wound careFollow -up week if not healed History of amputation of right great toe 1324779126 0782823 Z89.411 right great toe well healed- performed by [facility] Dystrophia unguium 83154 009 L60.3 Nails 1 through 8 were debrided with sharp mechanical debridemen t without incident. Nails were debrided and greater than 50% length and thickness where needed. Hammer toe 192326818 M20 .42 left 2nd toeoffload ing dailysilic one toe sleeve recommende drecommend diabetic shoe gear and insoles with extra-dept h shoes [id number] Devin Benitez MD [facility] Pulmon[facility] gy [address] [address] 05/02/2024 11:09:11 05/02/2024 11:58:12 Obstructive sleep apnea syndrome 69489075 G47.33 Periodic l imb movement disorder 534386393 G47.61 Hypomagnesemia 259888559 E83.42 Mild persi stent asthma 623668273 J45.30 [id number] Clifton Saravia DPM [facility] [place] [address] [place] [address] 06/20/2024 14:10:43 06/25/2024 12:46:48 Diabetic peripheral neuropathy 701657677 E11.42 Rx diabetic shoe gear- neoprene style toe box shoe, extra-dept hcheck feet daily for wounds infection at present seek medical attention immediatel yFollow-up in 3 months Diabetic on insulin 1707 64335 Z79.4 Dystrophia unguium 72034 009 L60.3 Nails 1 through 8 were debrided with sharp mechanical debridemen t without incident. Nails were debrided and greater than 50% length and thickness where needed. Health Concerns Section Related Observation LastModified by Organization Detai ls LastModified Time None Recorded Concern Status LastModified by Organization Details LastModified Time None Recorded Advance Directives Directive None Recorded Payers Encounter Date Sequence Insurance Name Policy Number Policy P[place] Covered Member ID P[place] Member ID Guarantor Name 11/02/2023 2 [place] Aleyda L Dilia [id number] Aleyda Juju [place] 11/02/2023 3 [facility] [id number] Drake L [place] [id number] Aleyda Juju [place] 01/17/2024 2 [place] Aleyda L Dilia [id number] Aleyda Juju [place] 01/17/2024 1 [facility] C[facility] I&C TECH FUND - OPEN ACCESS III (PPO) [id number] Aleyda Juju Dilia [id number] Aleyda Juju [place] 03/21/2024 2 [place] Aleyda L [place] [id number] Aleyda Juju D[place] 03/21/2024 1 [facility] HOME CARE & I&C TECH FUND - OPEN ACCESS III (PPO) [id number] Aleyda Juju [place] [id number] Aleyda Juju Dilia 05/02/2024 2 [place] Aleyda L [place] [id number] Aleyda Juju [place] 05/02/2024 1 [facility] HOME CARE & I&C TECH FUND - OPEN ACCESS III (PPO) [id number] Aleyda Juju [place] [id number] Aleyda Juju D[place] 06/20/2024 2 [place] Aleyda L Dilia [id number] Aleyda Juju Dilia 06/20/2024 1 [facility] HOME CARE & I&C TECH FUND - OPEN ACCESS III (PPO) [id number] Aleyda [place]ju [place] [id number] Aleyda Juju [place] Notes Date Note Type Note Provider Name and Address Organization Details Recorded Time 11/02/2023 text/html Primary care/Ref erring provider: Gilberto Armendariz DO; Ashley Soto NP CC: My [facility] [...] doing laundryAlleviating factors: rest Modified [employer] (mMRC) Dyspnea Scale - Grade 2Grade 0 [...] per weekAdvair diskus 500/50 1 inhalation BID [id number] Other symptoms:Drooling: noDysarthria: noNeck pain: noOdynophagia: noDysphagia: noWeak mastication: noFacial weakness: noNasal speech: noProtruding tongue: noProductive cough: noWheezing: yesChest tightness: yesOrthopnea: noFrequent throat clearing or swallowing: noPalpitations: noHeartburn: yesEdema: yes Environmental exposures:Nicotine smoke: 1 ppd 6885-0049 = 18 pack yearsPaint: noDye: noDust mites: yesMold: noDamp basement: noWood burning stove: noAnimal dander: dogCockroaches: noPollen: yesArsenic: noAsbestos: noBeryllium: noCadmium: noChromium: noCoal smoke: noDiesel fumes: noNickel: noSilica: noSoot: no During the [facility] home sleep study on 10/08/15, AHI = 13.[facility] tit[facility] 11/04/15, sleep [...] slight chance of dozing. Devin Benitez MD [address] [place] [address], [address], [place] [facility] [employer] 11/02/2023 15:02:56 01/17/2024 text/html Primary care/Ref erring [...] doing laundryAlleviating factors: rest Modified [employer] (mMRC) Dyspnea Scale - Grade 2Grade 0 [...] this everydayAdvair diskus 500/50 1 inhalation BID 0564-4769 Other symptoms:Drooling: noDysarthria: noNeck pain: noOdynophagia: noDysphagia: noWeak mastication: noFacial weakness: noNasal speech: noProtruding tongue: noProductive cough: noWheezing: yesChest tightness: yesOrthopnea: noFrequent throat clearing or swallowing: noPalpitations: noHeartburn: yesEdema: yes Environmental exposures:Nicotine smoke: 1 ppd 3251-2496 = 18 pack yearsPaint: noDye: noDust mites: yesMold: noDamp basement: noWood burning stove: noAnimal dander: dogCockroaches: noPollen: yesArsenic: noAsbestos: noBeryllium: noCadmium: noChromium: noCoal smoke: noDiesel fumes: noNickel: noSilica: noSoot: no During the [facility] home sleep study on 10/08/15, AHI = 13.[facility] on 11/04/15, sleep [...] moderate chance of dozing. Devin Benitez MD [address] [facility], [facility] [address], [place], [address], [employer] 01/17/2024 14:08:16 03/21/2024 text/html . Patient is a 73-year-old female diabetic shoe returns the office for follow-up on diabetic foot care. Patient states overall she is doing better. Patient states that she developed worsening wound to the great toe over the holiday she states that she was admitted to [facility] and underwent a amputation of the right [...] any other complaints. Clifton Saravia DPM [address], [facility] [address], [place], [address], [employer] 03/21/2024 14:52:17 05/02/2024 text/html Primary care/Ref erring [...] doing laundryAlleviating factors: rest Modified [employer] (mMRC) Dyspnea Scale - Grade 2Grade 0 [...] this everydayAdvair diskus 500/50 1 inhalation BID [id number] Other symptoms:Drooling: noDysarthria: noNeck pain: noOdynophagia: noDysphagia: noWeak mastication: noFacial weakness: noNasal speech: noProtruding tongue: noProductive cough: noWheezing: yesChest tightness: yesOrthopnea: noFrequent throat clearing or swallowing: noPalpitations: noHeartburn: yesEdema: yes Environmental exposures:Nicotine smoke: 1 ppd 5047-7558 = 18 pack yearsPaint: noDye: noDust mites: yesMold: noDamp basement: noWood burning stove: noAnimal dander: dogCockroaches: noPollen: yesArsenic: noAsbestos: noBeryllium: noCadmium: noChromium: noCoal smoke: noDiesel fumes: noNickel: noSilica: noSoot: no During the [facility] home sleep study on 10/08/15, AHI = 13.[facility] 11/04/15, sleep [...] moderate chance of dozing. Devin Benitez MD [address] [facility], [place] [address], [place], [address], [employer] 05/02/2024 11:51:12 06/20/2024 text/html . Patient is a 74-year-old female diabetic she returns for diabetic foot care she denies any new complaints. Clifton Saravia DPM [address], [place] [address], [place], [address], [employer] 06/24/2024 10:05:55 OBGyn Episode No OBEpisode recorded.
== END 2024-07-17 12:56 | disposition home or self-care (01) ==
PROVIDERS: PCP Internal Medicine; Visit Provider Clinical Nurse Specialist
DX: S42.021A Displaced fracture of shaft of right clavicle, initial encounter for closed fracture (principal); X58.XXXA Exposure to other specified factors, initial encounter; M19.011 Primary osteoarthritis, right shoulder
CPT/HCPCS: 73218

== ENCOUNTER 2024-08-14 10:36 | Outpatient (CLI) | payer OTHER, MEDICARE, BC, SELFPAY ==
--- OUTSIDE RECORDS SUMMARY | 2024-08-14 12:18 | XMS_ITS | CONTINUITY OF CARE DOCUMENT ---
Author Name yareli downs Address Unknown Organization [facility] Address [address] [place] [address] Phone [phone] Care Team Providers Care Programs Director Name Role Phone David Vanegas MD Unavailable GILBERTO IRIZARRY DO Unavailable GILBERTO IRIZARRY DO Unavailable [phone] PROBLEMS Condition Status Date Provider Notes DIABETES MELLITUS;since 1997 active David Vanegas MD intol to sglt2 and arb and ozemopci, cannot affored [place] HTN-04/05 [id number] active - David turner MD OBESITY; active David Vanegas MD SOB; NEG CXR 2007 active - David Vanegas MD CHEST PAIN-10/31 CATH NEG LV 70,?MICROVASCULAR DZ active - David Vanegas MD HTN ESSENTIAL;neg duplex and angio active David Vanegas MD CAD;neg carotdi dupelx active David Vanegas MD on x 2.5 Hypercholesterolemia;with lowh crp and low lpa active David Vanegas [...] inhibitors active David Vanegas MD CAD;NEG CATH 2003, NEG NUC 2006 AND completed - David [...] - David Vanegas MD Renal disease, chronic, mild;NEG ANGIO AND DUPLEX active David sánchezo t affored krenda and itol to sglt2 Shortness of breath completed - David Vanegas MD PFO active David Vanegas MD shawanda 2022 and 24 Tuberculosis active David Vanegas MD Elevated LFT's active David Vanegas MD neg hep screen, neg us, remote nan ENCOUNTERS Date Type Provider Location Encounter Diag nosis 1 - 1 In-person encounter Office Visit David Vanegas MD [facility] Diastolic CHFPFOElevated LFT's 4 - 4 In-person encounter Office Visit David Vanegas MD [facility] CAD;neg carotdi dupelxCOPD;has lung mdTuberculosis 9 - 9 In-person encounter Office Visit David Vanegas MD [facility] Diastolic CHFAnemia of chronic diseaseMitral valve disorderShortness of breathPFO 1 - 1 In-person encounter Office Visit David Vanegas MD [facility] 5 - 5 In-person encounter Office Visit David Vanegas MD [facility] DIABETES MELLITUS;since 1997MicroalbuminuriaPVD; 3 - 3 In-person encounter Office Visit David Vanegas MD [facility] DIABETES MELLITUS;since 1997CAD;neg carotdi dupelxAnemia of chronic disease 1 - 1 In-person encounter Office Visit David Vanegas MD [facility] DIABETES MELLITUS;since 1997Arrhythmia;NML TSHRenal disease, chronic, mild;NEG ANGIO AND DUPLEX 3 - 3 In-person encounter Office Visit David Vanegas MD [facility] 1 - 2 In-person encounter Office Visit David Vanegas MD [facility] Hypercholesterolemia;with lowh crp and low lpaExposure to SARS-associated coronavirus;had vaccine and neg swab 3 - 3 In-person encounter Office Visit David Vanegas MD [facility] 1 - 1 In-person encounter Office Visit David Vanegas MD [facility] Hypothyroidism;ON RX PER PRIMARYCOPD;has lung mdAnemia of chronic diseaseMicroalbuminuriaCOPDchronic thromboisi left lsv and gsvMitral valve disorder 6 - 6 In-person encounter Office Visit David Vanegas MD [facility] HTN ESSENTIAL;neg duplex and angioCAD;neg carotdi dupelxPVD;NEG HILDA 2009CAROTID ARTERY DISEASE;NEG DUPLEXCough due to VIET inhibitorshx of CARPAL TUNNEL SYNDROME;had bilat srugeryCONGENITAL HEART DISEASE;Tobacco use, quitAngina pectorisScreeningNeuropathic painPVD;Ulcer, chronic, other part of foot 5 - 5 In-person encounter Office Visit David Vanegas MD [facility] 7 - 7 In-person encounter Office Visit David Vanegas MD [facility] CAD;neg carotdi dupelx 7 - 7 In-person encounter Office Visit David Vanegas MD [facility] LFT, ABNORMAL;PRAVA STOPPED PRIMARY, fu per primayTobacco use, quit 2 - 2 In-person encounter Office Visit David Vanegas MD [facility] 6 - 6 In-person encounter Office Visit David Vanegas MD [facility] DIABETES MELLITUS;since 1998Tricuspid regurgitation, mildAnxiety 2 - 2 In-person encounter Office Visit David Vanegas MD [facility] SLEEP APNEA;Anemia of chronic disease 1 - 1 In-person encounter Office Visit David Vanegas MD [facility] HTN ESSENTIAL;neg duplex and angioCAD;neg carotdi dupelxDiastolic CHFSLEEP APNEA;Granulomatous lung disease 8 - 8 In-person encounter Office Visit David Vanegas MD [facility] 2 - 2 In-person encounter Office Visit David Vanegas MD [facility] 6 - 6 In-person encounter Office Visit David Vanegas MD [facility] OBESITY;HTN ESSENTIAL;neg duplex and angioCAD;neg carotdi dupelxHypercholesterolemia;with lowh crp and low lpaISCHEMIA; CXR 11, NML ANGIO 12Anemia of chronic diseaseCONGENITAL HEART DISEASE;MicroalbuminuriaVitamin D deficiency 8 - 8 In-person encounter Office Visit David Vanegas MD [facility] 1 - 1 In-person encounter Office Visit David Vanegas MD [facility] OBESITY;HTN ESSENTIAL;neg duplex and angioCAD;neg carotdi dupelxHypercholesterolemia;with lowh crp and low lpaDiastolic CHFCOPD;has lung md 5 - 5 In-person encounter Office Visit David Vanegas MD [facility] 4 - 4 In-person encounter Office Visit David Vanegas MD [facility] 2 - 2 In-person encounter Office Visit David Vanegas MD [facility] 1 - 1 In-person encounter Office Visit David Vanegas MD [facility] 8 - 8 In-person encounter Office Visit David Vanegas MD [facility] 5 - 5 In-person encounter Office Visit David Vanegas MD [facility] HTN ESSENTIAL;neg duplex and angioCAD;neg carotdi dupelxHypercholesterolemia;with lowh crp and low lpaCAD;NEG CATH 2003, NEG NUC 2006 AND 11LFT, ABNORMAL;PRAVA STOPPED PRIMARY, fu per primayhx of CARPAL TUNNEL SYNDROME;had bilat srugeryCONGENITAL HEART DISEASE; 0 - 0 In-person encounter Office Visit David Vanegas MD [facility] Diastolic CHFISCHEMIA; CXR 11, NML ANGIO 12Anemia of chronic diseasehx of CARPAL TUNNEL SYNDROME;had bilat srugery 9 - 9 In-person encounter Office Visit David Vanegas MD [facility] CAD;neg carotdi dupelxHypothyroidism;ON RX PER PRIMARYDiastolic CHFISCHEMIA; CXR 11, NML ANGIO 12LFT, ABNORMAL;PRAVA STOPPED PRIMARY, fu per primay 5 - 5 In-person encounter Office Visit David Vanegas MD [facility] LFT, ABNORMAL;PRAVA STOPPED PRIMARY, fu per primay 4 - 4 In-person encounter Office Visit David Vanegas MD [facility] DIABETES MELLITUS;since 1997OBESITY;SOB; NEG CXR 2008CHEST PAIN-10/31 CATH NEG LV 70,?MICROVASCULAR DZCAD;neg carotdi dupelxPALPITATIONS:NEG, ECHO, CXR, HOLTER 2008FATIGUE;DOES NOT SEEM TO BE CARDIAC, TO SEE PRIMARYISCHEMIA; CXR 11, NML ANGIO 12TOBACCO ABUSE;NEG AMI 11COPD;has lung 0 - 0 In-person encounter Office Visit David Vanegas MD [facility] HTN ESSENTIAL;neg duplex and angioHypothyroidism;ON RX PER PRIMARYDiastolic CHFCough due to VIET inhibitorsCAD;NEG CATH 2003, NEG NUC 2006 AND 11SLEEP APNEA; 1 - 2 In-person encounter Office Visit David Vanegas MD [facility] HTN-04/05 [id number];neg carotdi dupelxPVD;NEG HILDA 2009EDEMA;NEG VD 2008 0 - 0 In-person encounter Office Visit David Vanegas MD [facility] DIABETES MELLITUS;since 1997SOB; NEG CXR 2007CHEST PAIN-10/31 CATH NEG LV 70,?MICROVASCULAR DZCAD;neg carotdi dupelxPALPITATIONS:NEG, ECHO, CXR, HOLTER 2007 1 - 1 In-person encounter Office Visit David Vanegas MD [facility] CHEST PAIN-10/31 CATH NEG LV 70,?MICROVASCULAR DZCAD;neg carotdi dupelxHypercholesterolemia;with lowh crp and low lpaHypothyroidism;ON RX PER PRIMARYPALPITATIONS:NEG, ECHO, CXR, HOLTER 2007 VITAL SIGNS Date Observation Value Provider blood pressure, diastolic -1 mm[Hg] Li nkLogic blood pressure, systolic 131 mm[Hg] Lexis [facility] Body Mass Index (Ratio) 38.70 kg/m2 Aleksandar Vanegas MD blood pressure, diastolic 65 mm[Hg] Ghulam johnny [facility] blood pressure, systolic 119 mm[Hg] Kristyn dunne [facility] blood pressure, cuff size regular [facility] oxygen saturation, oximetry 97 % [facility] pulse rate 94 /min [facility] weight E&M 222 [lb_av] [facility] height E&M 63.5 [in_i] [facility] Body Mass Index (Ratio) 38.36 kg/m2 Aleksandar Vanegas MD oxygen saturation, oximetry 96 % Randi Blanco pulse rate 97 /min Randi Blanco blood pressure, cuff size large Braden Blanco blood pressure, diastolic 62 mm[Hg] Braden Blanco blood pressure, systolic 114 mm[Hg] [place] weight E&M 220 [lb_av] Randi Blanco respiratory rate E&M 12 /min Randi Blanco height E&M 63.5 [in_i] Randi Blanco Body Mass Index (Ratio) 39.23 kg/m2 Aleksandar Vanegas MD blood pressure, cuff size regular Gregory rret blood pressure, diastolic 65 mm[Hg] Ja rret blood pressure, systolic 131 mm[Hg] Jar ret pulse rate 93 /min Angel oxygen saturation, oximetry 93 % Angel respiratory rate E&M 16 /min Angel weight E&M 225 [lb_av] Angel height E&M 63.5 [in_i] Angel Body Mass Index (Ratio) 40.27 kg/m2 Aleksandar Vanegas MD blood pressure, diastolic 72 mm[Hg] Denita nkLogic blood pressure, systolic 142 mm[Hg] Lexis kLogic blood pressure, cuff size large Ja rret blood pressure, diastolic 72 mm[Hg] Ja rret blood pressure, systolic 142 mm[Hg] Jar ret pulse rate 86 /min Angel respiratory rate E&M 12 /min oxygen saturation, oximetry 94 % Angel weight E&M 231 [lb_av] Angel height E&M 63.5 [in_i] Angel Body Mass Index (Ratio) 40.97 kg/m2 Aleksandar Vanegas MD blood pressure, cuff size regular Gregory [facility] blood pressure, diastolic 74 mm[Hg] Ja [facility] blood pressure, systolic 153 mm[Hg] [facility] pulse rate 87 /min Angel respiratory rate E&M 12 /min [facility] oxygen saturation, oximetry 97 % [facility] weight E&M 235 [lb_av] [facility] height E&M 63.5 [in_i] [facility] Body Mass Index (Ratio) 38.22 kg/m2 Aleksandar Vanegas MD blood pressure, diastolic 79 mm[Hg] kitty Marquis blood pressure, systolic 143 mm[Hg] [facility] oxygen saturation, oximetry 97 % [facility] pulse rate 86 /min [facility] respiratory rate E&M 16 /min Charlettegenet morillo weight E&M 219.2 [lb_av] Charlette Benitez height E&M 63.5 [in_i] Charlettegenet Marquis Body Mass Index (Ratio) 38.01 kg/m2 Aleksandar Vanegas MD blood pressure, diastolic 70 mm[Hg] Luke Vanegas MD blood pressure, systolic 123 mm[Hg] Jorge Vanegas MD weight E&M 218 [lb_av] David Soriano Body Mass Index (Ratio) 37.66 kg/m2 Aleksandar Vanegas MD blood pressure, diastolic 75 mm[Hg] Denita nkLogliang blood pressure, systolic 173 mm[Hg] Lexis kLogic blood pressure, diastolic 75 mm[Hg] Ca therine Dafter blood pressure, systolic 173 mm[Hg] Cat herine Fran oxygen saturation, oximetry 95 % Ting Fran respiratory rate E&M 18 /min Catheri ne Fran pulse rate 80 /min Ting Fran weight E&M 216 [lb_av] Ting Dafter blood pressure, cuff size regular Ca therine Fran height E&M 63.5 [in_i] Ting Fran Body Mass Index (Ratio) 37.14 kg/m2 Aleksandar Vanegas MD weight E&M 213 [lb_av] David Hall D Body Mass Index (Ratio) 39.58 kg/m2 Aleksandar Vanegas MD blood pressure, cuff size large Lcuho rri Regulouenenfestrella blood pressure, diastolic 60 mm[Hg] Ke rri Regulouenenfestrella blood pressure, systolic 102 mm[Hg] Jae Saunders oxygen saturation, oximetry 94 % Marlene Saunders respiratory rate E&M 18 /min Marlene escobedo pulse rate 99 /min Marlene Mueller er weight E&M 227 [lb_av] Marlene Daysineviolette er height E&M 63.5 [in_i] Marlene Daysinenfmary ann er Body Mass Index (Ratio) 39.92 kg/m2 Aleksandar Vanegas MD blood pressure, cuff size regular Wilfred Ray pulse rate 80 /min Ruba Ray blood pressure, diastolic 72 mm[Hg] Wilfred isty Cory blood pressure, systolic 130 mm[Hg] Catracho Ray oxygen saturation, oximetry 97 % Ruba Ray respiratory rate E&M 17 /min Ruba Lagunaby weight E&M 229 [lb_av] Ruba Lagunaby height E&M 63.5 [in_i] Ruba Lagunaby Body Mass Index (Ratio) 39.92 kg/m2 Aleksandar Vanegas MD blood pressure, cuff size regular Cy javonjohnny Henson blood pressure, diastolic 64 mm[Hg] Cy francieshahid Henson blood pressure, systolic 128 mm[Hg] Mylene christie Sixto oxygen saturation, oximetry 98 % Marryjohnny Henson respiratory rate E&M 16 /min Marrychristie Henson pulse rate 78 /min Marry Markbel l weight E&M 229 [lb_av] Marry Campbel l height E&M 63.5 [in_i] Marry Campbel l Body Mass Index (Ratio) 40.90 kg/m2 Darrel Underwood NP blood pressure, diastolic 72 mm[Hg] Yordan Wiggins blood pressure, systolic 146 mm[Hg] Jaqueline Wiggins oxygen saturation, oximetry 91 % Isael Wiggins respiratory rate E&M 18 /min Gracy Wiggins pulse rate 95 /min Isael mansfield weight E&M 234.6 [lb_av] Isael Justin on height E&M 63.5 [in_i] Isael Washington darleenon pulse rate #2 62 Chayo Ciscobo blood pressure, fisher tolic, second observation 75 mm[Hg] [facility], syst olic, second observation 132 mm[Hg] [facility], oximetry 98 % [facility] pulse rate 62 /min [facility], diastolic 75 mm[Hg] Vi ctoria Sheelad blood pressure, systolic 132 mm[Hg] Bonifacio yesenia Tebid pulse rate #2 81 [facility] blood pressure, fisher tolic, second observation 75 mm[Hg] [facility] blood pressure, syst olic, second observation 156 mm[Hg] [facility] oxygen saturation, oximetry 98 % [facility] pulse rate 81 /min [facility] blood pressure, diastolic 75 mm[Hg] Vi ctoria Tebid blood pressure, systolic 156 mm[Hg] Bonifacio yesenia Ted pulse rate #2 84 [facility] blood pressure, fisher tolic, second observation 75 mm[Hg] [facility] blood pressure, syst olic, second observation 136 mm[Hg] [facility] oxygen saturation, oximetry 98 % [facility] pulse rate 84 /min [facility] blood pressure, diastolic 75 mm[Hg] Vi [facility] Te blood pressure, systolic 136 mm[Hg] Bonifacio yesenia [facility]2 82 [facility] blood pressure, fisher tolic, second observation 79 mm[Hg] [facility] blood pressure, syst olic, second observation 119 mm[Hg] [facility] oxygen saturation, oximetry 98 % [facility] pulse rate 82 /min [facility] blood pressure, diastolic 79 mm[Hg] [facility] Tebid blood pressure, systolic 119 mm[Hg] Bonifacio yesenia Tebid Body Mass Index (Ratio) 40.38 kg/m2 Aleksandar [...] [in_i] Isael mansfield pulse rate #2 79 [facility] blood pressure, fisher tolic, second observation 84 mm[Hg] [facility], syst olic, second observation 136 mm[Hg] [facility], oximetry 98 % [facility] pulse rate 79 /min [facility], diastolic 84 mm[Hg] Vi ctoria Tebid blood pressure, systolic 136 mm[Hg] Bonifacio yesenia Tebid pulse rate #2 78 [facility], fisher tolic, second observation 80 mm[Hg] [facility], syst olic, second observation 135 mm[Hg] [facility], oximetry 98 % [facility] pulse rate 78 /min [facility], diastolic 80 mm[Hg] Vi ctoria Tebid blood pressure, systolic 135 mm[Hg] Bonifacio yesenia Tebid pulse rate #2 84 Chayo Tebid blood pressure, fisher tolic, second observation 87 mm[Hg] [facility], syst olic, second observation 147 mm[Hg] Chayo Tebid oxygen saturation, oximetry 98 % [facility] 84 /min Chayo Tebid blood pressure, diastolic 87 mm[Hg] Vi ctoria Tebid blood pressure, systolic 147 mm[Hg] Bonifacio yesenia Tebid pulse rate #2 60 [facility], fisher tolic, second observation 82 mm[Hg] Chayo bid blood pressure, syst olic, second observation 133 mm[Hg] [facility], oximetry 98 % [place] pulse rate 60 /min [place] blood pressure, diastolic 82 mm[Hg] Vi neoria Tebid blood pressure, systolic 133 mm[Hg] [facility] #2 63 [facility] blood pressure, fisher tolic, second observation 77 mm[Hg] [facility], syst olic, second observation 125 mm[Hg] [facility], oximetry 98 % [facility] pulse rate 63 /min [facility] blood pressure, diastolic 77 mm[Hg] Vi [facility] Tebid blood pressure, systolic 125 mm[Hg] [facility] Tebid pulse rate #2 77 [place] blood pressure, fisher tolic, second observation 74 mm[Hg] [place] d blood pressure, syst olic, second observation 142 mm[Hg] [facility], oximetry 98 % [place] pulse rate 77 /min [facility], diastolic 74 mm[Hg] Vi [facility] Tebid blood pressure, systolic 142 mm[Hg] Bonifacio yesenia Tebid pulse rate #2 83 [place] blood pressure, fisher tolic, second observation 76 mm[Hg] [facility], syst olic, second observation 128 mm[Hg] [facility], oximetry 98 % [facility] pulse rate 83 /min [facility], diastolic 76 mm[Hg] Vi neoria Tebid blood pressure, systolic 128 mm[Hg] Bonifacio yesenia Tebid pulse rate #2 74 [facility], fisher tolic, second observation 70 mm[Hg] [facility], syst olic, second observation 123 mm[Hg] [facility], oximetry 98 % [facility] pulse rate 74 /min [facility], diastolic 70 mm[Hg] Vi ctoria Tebid blood pressure, systolic 123 mm[Hg] [facility] #2 95 [facility] blood [facility], fisher tolic, second observation 82 mm[Hg] [facility] blood [facility], syst olic, second observation 137 mm[Hg] [facility], oximetry 98 % [facility] pulse rate 95 /min [facility] blood pressure, diastolic 82 mm[Hg] Vi [facility] Tebid blood pressure, systolic 137 mm[Hg] [facility] T[facility] pulse rate #2 81 [facility] blood [facility], fisher tolic, second observation 76 mm[Hg] [facility] blood [facility], syst olic, second observation 132 mm[Hg] [facility], oximetry 98 % [facility] pulse rate 81 /min [facility], diastolic 76 mm[Hg] Vi ctoria Tebid blood pressure, systolic 132 mm[Hg] Bonifacio yesenia Tebid pulse rate #2 74 [facility] blood [facility], fisher tolic, second observation 82 mm[Hg] [facility] blood [facility], syst olic, second observation 128 mm[Hg] [facility], oximetry 98 % [facility] pulse rate 74 /min [facility], diastolic 82 mm[Hg] Vi ctoria [...] [in_i] Uzma Ileana pulse rate #2 79 Chayo Tebid blood pressure, fisher tolic, second observation 72 mm[Hg] [facility], syst olic, second observation 130 mm[Hg] Chayo Tebid oxygen saturation, oximetry 98 % Chayo Tebid pulse rate 79 /min Chayo Tebid blood pressure, diastolic 72 mm[Hg] Vi ctoria Tebid blood pressure, systolic 130 mm[Hg] Bonifacio yesenia Tebid pulse rate #2 81 Chayo Tebid blood pressure, fisher tolic, second observation 73 mm[Hg] Chayo Tebid blood pressure, syst olic, second observation 127 mm[Hg] Chayo Tebid oxygen saturation, oximetry 98 % Chayo Tebid pulse rate 81 /min Chayo Tebid blood pressure, diastolic 73 mm[Hg] Vi ctoria Tebid blood pressure, systolic 127 mm[Hg] Bonifacio yesenia Tebid pulse rate #2 89 Chayo Tebid blood pressure, fisher tolic, second observation 74 mm[Hg] Chayo Tebid blood pressure, syst olic, second observation 132 mm[Hg] Chayo Tebid oxygen saturation, oximetry 98 % Chayo Tebid pulse rate 89 /min [place] Tebid blood pressure, diastolic 74 mm[Hg] Vi ctoria Tebid blood pressure, systolic 132 mm[Hg] Bonifacio yesenia Tebid pulse rate #2 87 [facility], fisher tolic, second observation 79 mm[Hg] Chayo Tebid blood pressure, syst olic, second observation 162 mm[Hg] Chayo Tebid oxygen saturation, oximetry 98 % [facility] 87 /min [place] Tebid blood pressure, diastolic 79 mm[Hg] Vi ctoria Tebid blood pressure, systolic 162 mm[Hg] Bonifacio yesenia Tebid pulse rate #2 88 [facility], fisher tolic, second observation 88 mm[Hg] [facility], syst olic, second observation 166 mm[Hg] [facility], oximetry 98 % [place] bid pulse rate 88 /min [facility], diastolic 88 mm[Hg] Vi neoria Tebid blood pressure, systolic 166 mm[Hg] Bonifacio brownia Tebid pulse rate #2 77 [place] Tebid blood pressure, fisher tolic, second observation 81 mm[Hg] Chayo Tebid blood pressure, syst olic, second observation 144 mm[Hg] Chayo Tebid oxygen saturation, oximetry 98 % Chayo bid pulse rate 77 /min [place] Tebid blood pressure, diastolic 81 mm[Hg] Vi ctoria Tebid blood pressure, systolic 144 mm[Hg] Bonifacio yesenia Tebid pulse rate #2 83 [place] Tebid blood pressure, fisher tolic, second observation 77 mm[Hg] [facility], syst olic, second observation 152 mm[Hg] [facility], oximetry 98 % Chayo bid pulse rate 83 /min [place] d blood pressure, diastolic 77 mm[Hg] Vi ctoria Tebid blood pressure, systolic 152 mm[Hg] Bonifacio yesenia Tebid pulse rate #2 76 [place] d blood pressure, fisher tolic, second observation 85 mm[Hg] Chayo d blood pressure, syst olic, second observation 148 mm[Hg] Chayo bid oxygen saturation, oximetry 98 % Chayo d pulse rate 76 /min [place] blood pressure, diastolic 85 mm[Hg] Vi ctoria Tebid blood pressure, systolic 148 mm[Hg] Bonifacio yesenia Tebid pulse rate #2 69 [place] d blood pressure, fisher tolic, second observation 81 mm[Hg] [place] d blood pressure, syst olic, second observation 154 mm[Hg] Chayo d oxygen saturation, oximetry 98 % [place] pulse rate 69 /min [facility], diastolic 81 mm[Hg] Vi ctoria Tebid blood pressure, systolic 154 mm[Hg] Bonifacio yesenia Tebid pulse rate #2 62 [facility], fisher tolic, second observation 89 mm[Hg] [facility], syst olic, second observation 143 mm[Hg] Chayo d oxygen saturation, oximetry 98 % [facility] 62 /min [facility], diastolic 89 mm[Hg] Vi ctoria Tebid blood pressure, systolic 143 mm[Hg] Bonifacio yesenia Tebid pulse rate #2 65 [facility] blood pressure, fisher tolic, second observation 88 mm[Hg] Chayo d blood pressure, syst olic, second observation 132 mm[Hg] [facility], oximetry 98 % [place] pulse rate 65 /min [place] blood pressure, diastolic 88 mm[Hg] Vi ctoria Tebid blood pressure, systolic 132 mm[Hg] Bonifacio yesenia Tebid pulse rate #2 65 [place] blood pressure, fisher tolic, second observation 71 mm[Hg] [facility], syst olic, second observation 127 mm[Hg] [facility], oximetry 98 % [facility] pulse rate 65 /min [facility] blood pressure, diastolic 71 mm[Hg] Vi neoria Tebid blood pressure, systolic 127 mm[Hg] [facility] T[facility] #2 68 [place] blood pressure, fisher tolic, second observation 69 mm[Hg] [facility], syst olic, second observation 132 mm[Hg] [facility], oximetry 98 % [facility] pulse rate 68 /min [facility] blood pressure, diastolic 69 mm[Hg] Vi ctoria Tebid blood pressure, systolic 132 mm[Hg] Bonifacio yesenia Tebid pulse rate #2 72 [facility] blood pressure, fisher tolic, second observation 79 mm[Hg] [facility] syst o[facility], second observation 134 mm[Hg] [facility], oxim[facility] 98 % [facility] pulse rate 72 /min [facility], [facility] 79 mm[Hg] Vi ctoria Tebid blood pressure, systolic 134 mm[Hg] Bonifacio eysenia Tebid pulse rate #2 80 [facility], fisher tolic, second observation 68 mm[Hg] Chayo Tebid blood pressure, syst olic, second observation 129 mm[Hg] [facility], [facility] 98 % [facility] 80 [facility], diastolic 68 mm[Hg] Vi ctoria Tebid blood pressure, systolic 129 mm[Hg] Bonifacio yesenia Tebid pulse rate #2 88 [facility], fisher tolic, second observation 86 mm[Hg] [facility], syst olic, second observation 138 mm[Hg] [facility], oxim[facility] 98 % [facility] pulse rate 88 /min [facility] blood pressure, diastolic 86 mm[Hg] Vi neoria Tebid blood pressure, systolic 138 mm[Hg] Bonifacio yesenia Tebid pulse rate #2 88 [facility], fisher tolic, second observation 77 mm[Hg] [facility], syst olic, second observation 156 mm[Hg] [facility], oxim[facility] 98 % [facility] 88 /min [place] Tebid blood pressure, diastolic 77 mm[Hg] Vi ctoria Tebid blood pressure, systolic 156 mm[Hg] Bonifacio brownia Tebid pulse rate #2 86 [facility], fisher tolic, second observation 74 mm[Hg] [facility], syst olic, second observation 137 mm[Hg] [facility], oximetry 98 % [facility] 86 /min [facility], diastolic 74 mm[Hg] Vi ctoria Tebid blood pressure, systolic 137 mm[Hg] Bonifacio yesenia Tebid pulse rate #2 82 [facility] blood pressure, fisher tolic, second observation 67 mm[Hg] [facility] blood pressure, syst olic, second observation 125 mm[Hg] [facility] Body Mass Index (Ratio) 40.31 kg/m2 Darrel Underwood BACKUP ADMINISTRATOR blood pressure, cuff size large Sh campbell Lemosdall BACKUP ADMINISTRATOR blood pressure, diastolic 62 mm[Hg] Sh campbell Kj BACKUP ADMINISTRATOR blood pressure, systolic 130 mm[Hg] She jaye Lemosdall BACKUP ADMINISTRATOR weight E&M 231.2 [lb_av] Cynthia Underwood BACKUP ADMINISTRATOR oxygen saturation, oximetry 98 % [facility] pulse rate 82 /min [facility] blood pressure, diastolic 67 mm[Hg] Vi ctoria Tebid blood pressure, systolic 125 mm[Hg] Bonifacio patterson Ted blood pressure, diastolic 69 mm[Hg] Pa deo Ortiz blood pressure, systolic 136 mm[Hg] Lizbeth brown Ortiz pulse rate 88 /min [place] Ortiz oxygen saturation, oximetry 96 % [place] Ort[facility] respiratory rate E&M 16 /min [place] Ortiz Body Mass Index (Ratio) 40.27 kg/m2 Carline ren Ortiz weight E&M 231 [lb_av] [place] Ortiz blood pressure, diastolic 60 mm[Hg] nola Gelyecs RN blood pressure, systolic 150 mm[Hg] Phong sta Gelyecs RN pulse rate 83 /min [place] Demecs R N oxygen saturation, oximetry 98 % [place] Gelyecs RN respiratory rate E&M 20 /min [place] Demecs RN Body Mass Index (Ratio) 39.40 kg/m2 Jennifer still Demecs RN weight E&M 226 [lb_av] [place] Demecs R N blood pressure, diastolic 62 mm[Hg] nola Demecs RN blood pressure, systolic 126 mm[Hg] Phong logan Demecs RN pulse rate 89 /min [place] Demecs R N oxygen saturation, oximetry 94 % Jaja Demecs RN respiratory rate E&M 16 /min [place] Demecs RN Body Mass Index (Ratio) 39.47 kg/m2 [facility] weight E&M 226.4 [lb_av] [place] Demecs RN blood pressure, diastolic 70 mm[Hg] Wilfred Lagunaby blood pressure, systolic 124 mm[Hg] Catracho Lagunaby pulse rate 97 /min Ruba Cory oxygen saturation, oximetry 97 % Ruba [place] respiratory rate E&M 18 /min Ruba Cory Body Mass Index (Ratio) 39.65 kg/m2 Luis A engel Cory weight E&M 227.4 [lb_av] Ruba Lagunaby blood pressure, diastolic 70 mm[Hg] Yordan Wiggins blood pressure, systolic 140 mm[Hg] Jaqueline Wiggins pulse rate 74 /min Isael mansfield oxygen saturation, oximetry 97 % Isael Wiggins respiratory rate E&M 16 /min Gracy Wiggins Body Mass Index (Ratio) 40.20 kg/m2 Debra Wiggins weight E&M 230.6 [lb_av] Isael chanceon blood pressure, diastolic 60 mm[Hg] Sh campbell Underwood BACKUP ADMINISTRATOR blood pressure, systolic 138 mm[Hg] She rrkitty Underwood BACKUP ADMINISTRATOR pulse rate, standing 78 /min Cynthia Underwood BACKUP ADMINISTRATOR Body Mass Index (Ratio) 39.23 kg/m2 Darrel Underwood BACKUP ADMINISTRATOR weight E&M 225.0 [lb_av] Cynthia Underwood BACKUP ADMINISTRATOR Body Mass Index (Ratio) 39.44 kg/m2 Darrel Underwood BACKUP ADMINISTRATOR blood pressure, diastolic 80 mm[Hg] Sh campbell Underwood BACKUP ADMINISTRATOR blood pressure, systolic 118 mm[Hg] She rrkitty Underwood BACKUP ADMINISTRATOR pulse rate 88 /min Cynthia Underwood BACKUP ADMINISTRATOR weight E&M 226.2 [lb_av] Cynthia Underwood BACKUP ADMINISTRATOR Body Mass Index (Ratio) 39.58 kg/m2 Carline ren Ortiz blood pressure, diastolic 71 mm[Hg] Pa deo Ortiz blood pressure, systolic 155 mm[Hg] Lizbeth brown Ortiz pulse rate 92 /min [place] Ortiz oxygen saturation, oximetry 94 % [place] Ortiz respiratory rate E&M 15 /min [place] Ortiz weight E&M 227 [lb_av] [place] Ortiz blood pressure, diastolic 61 mm[Hg] Sh campbell Underwood BACKUP ADMINISTRATOR blood pressure, systolic 113 mm[Hg] She rrkitty Underwood BACKUP ADMINISTRATOR Body Mass Index (Ratio) 36.54 kg/m2 Darrel Underwood BACKUP ADMINISTRATOR weight E&M 209.6 [lb_av] Cynthia Underwood BACKUP ADMINISTRATOR Body Mass Index (Ratio) 36.96 kg/m2 Sanz i Nicky blood pressure, diastolic 61 mm[Hg] Ke rri Nicky blood pressure, systolic 113 mm[Hg] Ker ri Nicky pulse rate 83 /min Marlene Ervin cano oxygen saturation, oximetry 98 % Marlene Nicky respiratory rate E&M 17 /min Marlene Micheal escobedo weight E&M 212 [lb_av] Marlene Rajputwonmary ann rachael Body Mass Index (Ratio) 35.98 kg/m2 Darrel Zepedall BACKUP ADMINISTRATOR weight E&M 205.6 [lb_av] Cynthai Lemosdall BACKUP ADMINISTRATOR Body Mass Index (Ratio) 37.27 kg/m2 Darrel Lemosdall BACKUP ADMINISTRATOR weight E&M 213 [lb_av] Cynthia Kj BACKUP ADMINISTRATOR Body Mass Index (Ratio) 37.13 kg/m2 Darrel Lemosdall BACKUP ADMINISTRATOR weight E&M 212.2 [lb_av] Cynthia Lemosdall BACKUP ADMINISTRATOR blood pressure, diastolic 68 mm[Hg] Sh campbell Lemosdall BACKUP ADMINISTRATOR blood pressure, systolic 122 mm[Hg] She rry Kj BACKUP ADMINISTRATOR Body Mass Index (Ratio) 37.27 kg/m2 Darrel Lemosdall BACKUP ADMINISTRATOR weight E&M 213 [lb_av] Cynthia Lemosdall BACKUP ADMINISTRATOR blood pressure, diastolic 72 mm[Hg] Sh erry Salem BACKUP ADMINISTRATOR blood pressure, systolic 122 mm[Hg] She rry Kj BACKUP ADMINISTRATOR Body Mass Index (Ratio) 37.27 kg/m2 Darrel Zepedall BACKUP ADMINISTRATOR pulse rate 72 /min Cynthia Lemosdall BACKUP ADMINISTRATOR respiratory rate E&M 18 /min Cynthia Lemosdall BACKUP ADMINISTRATOR weight E&M 213 [lb_av] Cynthia Lemosdall BACKUP ADMINISTRATOR blood pressure, diastolic, left arm 82 mm [Hg] Koki Stueber blood pressure, systolic, left arm 166 mm [Hg] Koki Stueber blood pressure, diastolic, right arm 79 m m[Hg] Koki Stueber blood pressure, systolic, right arm 175 m m[Hg] Koki Stueber Body Mass Index (Ratio) 37.13 kg/m2 Christine a Stueber blood pressure, diastolic 82 mm[Hg] Ta jackie Stueber blood pressure, systolic 166 mm[Hg] Fabio Singhber pulse rate 87 /min Koki Singhber oxygen saturation, oximetry 98 % Koki Lindseyueber respiratory rate E&M 16 /min Koki burgosebmisty weight E&M 212.2 [lb_av] Koki Singhber weight E&M 205 [lb_av] Mile Connors blood pressure, diastolic 71 mm[Hg] Ch megan Connors blood pressure, systolic 136 mm[Hg] Sherry kristian Connors pulse rate 91 /min Mile Connors oxygen saturation, oximetry 97 % Mile Connors respiratory rate E&M 16 /min Mile Connors blood pressure, diastolic 72 mm[Hg] Lucho Saunders blood pressure, systolic 126 mm[Hg] Jae Saunders pulse rate 85 /min Marlene cano oxygen saturation, oximetry 98 % Marlene Saunders respiratory rate E&M 18 /min Marlene escobedo weight E&M 203.6 [lb_av] Marlene de la rosa Body Mass Index (Ratio) 34.47 kg/m2 Jessica Carpenter NP weight E&M 197 [lb_av] Les awan BACKUP ADMINISTRATOR height E&M 63.5 [in_i] Les awan BACKUP ADMINISTRATOR blood pressure, diastolic 75 mm[Hg] Ma rsha [place] blood pressure, systolic 141 mm[Hg] Jaqueline jacobson [place] pulse rate 89 /min Nevaeh [place] oxygen saturation, oximetry 100 % Nevaeh [place] respiratory rate E&M 16 /min Nevaeh [place] weight E&M 198 [lb_av] Nevaeh Krysta'Farooq blood pressure, diastolic, left arm 78 mm [Hg] Salinas Viera RN blood pressure, systolic, left arm 127 mm [Hg] [place] Viera RN blood pressure, diastolic, right arm 81 m m[Hg] [place] Viera RN blood pressure, systolic, right arm 122 m m[Hg] [place] Uriosteguis RN blood pressure, diastolic 78 mm[Hg] Gregory loree Viera RN blood pressure, systolic 127 mm[Hg] [place] Viera RN pulse rate 88 /min [place] Viera RN oxygen saturation, oximetry 97 % [place] Uriosteguis RN respiratory rate E&M 18 /min [place] Kelton keane RN weight E&M 197 [lb_av] [place] Viera RN blood pressure, diastolic 78 mm[Hg] Raya kendrick [place] blood pressure, systolic 128 mm[Hg] Germán zeng [place] pulse rate 84 /min Jordin [place] oxygen saturation, oximetry 98 % Jordin [place] respiratory rate E&M 16 /min Jordin [place] weight E&M 210 [lb_av] Jordin [place] pulse rate #2 77 Jose Schofieldso n blood pressure, fisher tolic, second observation 70 mm[Hg] Jose Torrezherson blood pressure, syst olic, second observation 115 mm[Hg] Jose Torrezherson oxygen saturation, oximetry 97 % Jose Torrezherson pulse rate 82 /min Jose Torrezherson blood pressure, diastolic 71 mm[Hg] Ra lorena TorrezKline blood pressure, systolic 125 mm[Hg] Damaso Kline pulse rate #2 80 Jose Schofieldso n blood pressure, fisher tolic, second observation 71 mm[Hg] Jose Torrezherson blood pressure, syst olic, second observation 114 mm[Hg] Jose Torrezherson oxygen saturation, oximetry 96 % Jose Kline pulse rate 86 /min Jose Kline blood pressure, diastolic 73 mm[Hg] Ra ndy Kline blood pressure, systolic 123 mm[Hg] Ran [...] Kline blood pressure, diastolic 81 mm[Hg] Ra ndy Kline blood pressure, systolic 123 mm[Hg] Ran [...] Kline blood pressure, diastolic 78 mm[Hg] Ra myranday Kline blood pressure, systolic 134 mm[Hg] Ran [...] Kline blood pressure, diastolic 67 mm[Hg] Ra ndy Kline blood pressure, systolic 130 mm[Hg] Ran [...] Kline blood pressure, diastolic 70 mm[Hg] Ra myranday Kline blood pressure, systolic 121 mm[Hg] Ran dy Kline pulse rate #2 90 [facility] blood pressure, fisher tolic, second observation 91 mm[Hg] [facility] blood pressure, syst olic, second observation 153 mm[Hg] [facility] oxygen saturation, oximetry 97 % [facility] pulse rate 87 /min [facility] blood pressure, diastolic 82 mm[Hg] Be y [place] blood pressure, systolic 143 mm[Hg] [facility] pulse rate #2 75 Jose Loreherso [...] Kline blood pressure, diastolic 80 mm[Hg] Ra myranday Kline blood pressure, systolic 137 mm[Hg] Ran [...] Kline blood pressure, diastolic 80 mm[Hg] Ra lorena Kline blood pressure, systolic 135 mm[Hg] Damaso ha Kline blood pressure, diastolic 80 mm[Hg] Gregory Viera RN blood pressure, systolic 129 mm[Hg] [place] Viera RN pulse rate 82 /min [place] Viera RN oxygen saturation, oximetry 98 % [place] Viera RN respiratory rate E&M 16 /min Salinas markslv RN weight E&M 207 [lb_av] [place] Uriosteguis RN blood pressure, diastolic 80 mm[Hg] Te warren Olson blood pressure, systolic 138 mm[Hg] Ter mary Olson pulse rate 83 /min Laina Olson oxygen saturation, oximetry 98 % Laina Olson respiratory rate E&M 18 /min Laina Flaquito mauricio weight E&M 213 [lb_av] Laina Olson ALLERGIES [...] iron binding capacity, unsaturated 216 ug/dL [facility] 490-215 0496/06 /07 iron binding capacity, total 285 ug/dL [facility] 801-551 9259/06 /07 lipoprotein, beta, serum, point, quantitative, calculated 34 mg/dL [facility] 0-99 very low density lipoproteins 21 mg/dL [facility] 5-40 HDL cholesterol, serum 54 mg/dL [facility] >39 triglyceride, serum, random 104 mg/dL [facility] 0-149 cholesterol, serum 109 mg/dL [facility] 091-466 5251/09 /29 pro brain natriuretic peptide 135 pg/mL [facility] 0-450 international normalized ratio (INR) 1.0 [facility] 0.9-1.1 prothrombin time (patient) 9.9 Seconds [facility] 9.0-11.5 platelet count 163 Thousand/uL [facility] 998-119 8294/09 /07 Absolute Basophils 0.0 cells/uL [facility] 0.0-0.2 [...] [facility] 3.5-5.1 sodium, serum 143 mmol/L [facility] [phone]/09 /07 creatinine, serum 0.8 mg/dL [facility] 0.5-0.9 [...] serum 20.6 % [facility] 20.0 - 50.0 iron binding capacity, total 330.4 ug/dL [facility] [...] - 8.7 bilirubin, serum, total 0.3 mg/dL [facility] 0.0 - 1.2 urea nitrogen, blood 19.0 mg/dL [facility] 8.0 - 23.0 blood glucose, random 250.0 mg/dL [facility] 74.0 - 99.0 High ferritin, serum 570.1 ng/mL [facility] 13.0 - 150.0 High red blood cell distribution width, size density 54.8 fL [facility] - immature granulocytes, percentage of total cells, blood 0.7 % [facility] - nucleated red blood cells as percent of blood leukocytes 0.0 % [facility] - red blood cell (erythrocyte) count, per high power field 0.0 10*3/UL [facility] - eosinophils as percent of blood leukocytes 3.3 % [facility] - neutrophils as percent of blood leukocytes 56.0 % [facility] - Absolute Neutrophils 3.4 CELLS/[facility] 1[facility] - 7.8 basophils as percent of blood leukocytes 0.7 % [facility] - Absolute Basophils 0.0 CELLS/UL [facility] 0.0 - 0.2 monocytes as percent of blood leukocytes 7.4 % [facility] - Absolute Monocytes 0.5 CELLS/UL [facility] 0.2 - 1.0 lymphocytes as percent of blood leukocytes 31.9 % [facility] - Absolute Lymphocytes 1.9 CELLS/UL [facility] 0.9 - 3.9 mean platelet volume 12.2 (?) [facility] - platelet count 180.0 THOUSAND/UL [facility] 100.0 - 400.0 mean corpuscular hemoglobin concentration, RBC 31.3 G/DL [facility] 31.0 - 38.0 mean corpuscular hemoglobin, RBC 29.3 pg [facility] 25.0 - 35.0 mean corpuscular volume, RBC 93.9 [facility]L [facility] 75.0 - 100.0 hematocrit, blood 38.4 % [...] - 23.0 blood glucose, random 82.0 mg/dL [facility] 74.0 - 99.0 red blood cell distribution width, size density 48.1 fL [facility] - immature granulocytes, percentage of total cells, blood 0.8 % [facility] - nucleated red blood cells as percent of blood leukocytes 0.0 % [facility] - red blood cell (erythrocyte) count, per [...] 2.00 triglyceride, target level 150 mg/dL Cynthia Salem BACKUP ADMINISTRATOR HDL cholesterol, serum, target level 40 mg/dL Cynthia Kj BACKUP ADMINISTRATOR LDL target level 70 mg/dL Cynthia Salem BACKUP ADMINISTRATOR cholesterol, target level 200 mg/dL Cynthia Kj BACKUP ADMINISTRATOR cholesterol/HDL ratio, serum 3.0 Cynthia Kj BACKUP ADMINISTRATOR triglyceride, serum, fasting 252 mg/dL Cynthia Kj BACKUP ADMINISTRATOR HDL cholesterol, serum 52 mg/dL Cynthia Salem BACKUP ADMINISTRATOR LDL cholesterol, serum 53 mg/dL Cynthia Salem BACKUP ADMINISTRATOR cholesterol, serum 155 mg/dL Cynthia Kj BACKUP ADMINISTRATOR triglyceride, target level 150 mg/dL Cynthia Salem BACKUP ADMINISTRATOR HDL cholesterol, serum, target level 40 mg/dL Cynthia Kj BACKUP ADMINISTRATOR LDL target level 70 mg/dL Cynthia Salem BACKUP ADMINISTRATOR cholesterol, target level 200 mg/dL Cynthia Salem BACKUP ADMINISTRATOR cholesterol/HDL ratio, serum 3.4 Cynthia Salem BACKUP ADMINISTRATOR triglyceride, serum, fasting 153 mg/dL Cynthia Salem BACKUP ADMINISTRATOR HDL cholesterol, serum 43 mg/dL Cynthia Salem BACKUP ADMINISTRATOR LDL cholesterol, serum 71 mg/dL Cynthia Salem BACKUP ADMINISTRATOR cholesterol, serum 144 mg/dL Cynthia Salem BACKUP ADMINISTRATOR cholesterol/HDL ratio, serum 3.0 Cynthia Salem BACKUP ADMINISTRATOR triglyceride, serum, fasting 84 mg/dL Cynthia Salem BACKUP ADMINISTRATOR HDL cholesterol, serum 50 mg/dL Cynthia Salem BACKUP ADMINISTRATOR LDL cholesterol, serum 84 mg/dL Cynthia Kj BACKUP ADMINISTRATOR cholesterol, serum 154 mg/dL Cynthia Salem BACKUP ADMINISTRATOR TOTAL NON-HDL-C (LDL VLDL) 140 Cynthia Kj BACKUP ADMINISTRATOR cholesterol/HDL ratio, serum 4.9 Cynthia Salem BACKUP ADMINISTRATOR cholesterol, serum 176 mg/dL Cynthia Salem BACKUP ADMINISTRATOR Normal triglyceride, target level 150 mg/dL Cynthia Kj BACKUP ADMINISTRATOR HDL cholesterol, serum, target level 40 mg/dL Cynthia Salem BACKUP ADMINISTRATOR triglyceride, serum, fasting 202 mg/dL Cynthia Kj BACKUP ADMINISTRATOR High HDL cholesterol, serum 36 mg/dL Cynthia Kj BACKUP ADMINISTRATOR Low LDL cholesterol, serum 100 mg/dL Cynthia Salem BACKUP ADMINISTRATOR High LDL target level 70 mg/dL Cynthia Kj BACKUP ADMINISTRATOR cholesterol, target level 200 mg/dL Cynthia Kj BACKUP ADMINISTRATOR triglyceride, target level 150 mg/dL Cynthia Salem BACKUP ADMINISTRATOR HDL cholesterol, serum, target level 40 mg/dL Ycnthia Salem BACKUP ADMINISTRATOR LDL target level 70 mg/dL Cynthia Salem BACKUP ADMINISTRATOR cholesterol, target level 200 mg/dL Cynthia Kj BACKUP ADMINISTRATOR TOTAL NON-HDL-C (LDL VLDL) 142 Cynthia Kj BACKUP ADMINISTRATOR cholesterol/HDL ratio, serum 5.3 Cynthia Salem BACKUP ADMINISTRATOR triglyceride, serum, fasting 229 mg/dL Cynthia Salem BACKUP ADMINISTRATOR High HDL cholesterol, serum 33 mg/dL Cynthia Salem BACKUP ADMINISTRATOR Low LDL cholesterol, serum 96 mg/dL Cynthia Salem BACKUP ADMINISTRATOR High cholesterol, serum 175 mg/dL Cynthia Salem BACKUP ADMINISTRATOR TOTAL NON-HDL-C (LDL VLDL) 129 Cynthia Salem BACKUP ADMINISTRATOR cholesterol/HDL ratio, serum 4.2 Cynthia Kj BACKUP ADMINISTRATOR cholesterol, serum 169 mg/dL Cynthia Salem BACKUP ADMINISTRATOR triglyceride, target level 150 mg/dL Cynthia Kj BACKUP ADMINISTRATOR HDL cholesterol, serum, target level 40 mg/dL Cynthia Salem BACKUP ADMINISTRATOR triglyceride, serum, fasting 187 mg/dL Cynthia Kj BACKUP ADMINISTRATOR High HDL cholesterol, serum 40 mg/dL Cynthia Salem BACKUP ADMINISTRATOR Normal LDL cholesterol, serum 92 mg/dL Cynthia Salem BACKUP ADMINISTRATOR High LDL target level 70 mg/dL Cynthia Salem BACKUP ADMINISTRATOR cholesterol, target level 200 mg/dL Cynthia Kj BACKUP ADMINISTRATOR TOTAL NON-HDL-C (LDL VLDL) 99 Cynthia Kj BACKUP ADMINISTRATOR cholesterol/HDL ratio, serum 3.9 Cynthia Kj BACKUP ADMINISTRATOR cholesterol, serum 131 mg/dL Cynthia Salem BACKUP ADMINISTRATOR Normal triglyceride, target level 150 mg/dL Cynthia Kj BACKUP ADMINISTRATOR HDL cholesterol, serum, target level 40 mg/dL Cynthia Salem BACKUP ADMINISTRATOR triglyceride, serum, fasting 341 mg/dL Cynthia Salem BACKUP ADMINISTRATOR High HDL cholesterol, serum 34 mg/dL Cynthia Salem BACKUP ADMINISTRATOR Low LDL cholesterol, serum 30 mg/dL Cynthia Salem BACKUP ADMINISTRATOR Normal LDL target level 70 mg/dL Cynthia Kj BACKUP ADMINISTRATOR cholesterol, target level 200 mg/dL Cynthia Salem BACKUP ADMINISTRATOR TOTAL NON-HDL-C (LDL VLDL) 99 Cynthia Kj BACKUP ADMINISTRATOR alanine aminotransferase (SGPT), serum 39 1/L Cynthia Salem BACKUP ADMINISTRATOR aspartate aminotransferase (SGOT), serum 55 1/L Cynthia Salem BACKUP ADMINISTRATOR cholesterol/HDL ratio, serum 3.8 Cynthia Kj BACKUP ADMINISTRATOR cholesterol, serum 134 mg/dL Cynthia Salem BACKUP ADMINISTRATOR Normal triglyceride, target level 150 mg/dL Cynthia Salem BACKUP ADMINISTRATOR HDL cholesterol, serum, target level 40 mg/dL Cynthia Salem BACKUP ADMINISTRATOR triglyceride, serum, fasting 152 mg/dL Cynthia Underwood BACKUP ADMINISTRATOR High HDL cholesterol, serum 36 mg/dL Cynthia Underwood BACKUP ADMINISTRATOR Low LDL cholesterol, serum 68 mg/dL Cynthia Underwood BACKUP ADMINISTRATOR Normal LDL target level 70 mg/dL Cynthia Underwood BACKUP ADMINISTRATOR cholesterol, target level 200 mg/dL Cynthia Underwood BACKUP ADMINISTRATOR platelet count 164 10*3/mm3 [facility] hematocrit, blood 34.6 % [facility] lipoprotein, beta, serum, point, quantitative, calculated 77 mg/dL [facility] cholesterol, serum 144 mg/dL [facility] creatinine, serum 0.60 mg/dL [facility] potassium, serum 5.1 mmol/L [facility] sodium, serum 137 mmol/L [facility] thyroid stimulating hormone, serum 1.595 u[IU]/mL [facility] thyroxine, serum, free 0.15 ng/dL [facility] triiodothyronine (T3), serum 233.0 ng/dL [facility] globulins, serum, total 4.3 g/dL [facility] estimated glomerular filtration rate 91.3 mL/min [facility] albumin/globulin ratio, serum 0.9 [facility] protein, total, serum 8.3 g/dL [facility] albumin, serum 4.0 g/dL [facility] bilirubin, serum, total 0.4 mg/dL [facility] alkaline phosphatase, serum 60 1/L [facility] alanine aminotransferase (SGPT), serum 57 1/L [facility] aspartate aminotransferase (SGOT), serum 67 1/L [facility] calcium, serum 9.1 mg/dL [facility] blood glucose, fasting 175 mg/dL [facility] creatinine, serum 0.7 mg/dL [facility] urea nitrogen, blood 23 mg/dL [facility] carbon dioxide, serum, total 28 mmol/L [facility] chloride, serum 105 mmol/L [facility] potassium, serum 4.3 mmol/L [facility] sodium, serum 136 mmol/L [facility] TOTAL NON-HDL-C (LDL VLDL) 120 [facility] alanine aminotransferase (SGPT), serum 30 1/L [facility] aspartate aminotransferase (SGOT), serum 36 1/L [facility] cholesterol/HDL ratio, serum 4 [facility] triglyceride, serum, fasting 167 mg/dL [facility] HDL cholesterol, serum 40 mg/dL [facility] LDL cholesterol, serum 86 mg/dL [facility] cholesterol, serum 159 mg/dL [facility] triglyceride, target level 150 mg/dL [facility] HDL cholesterol, serum, target level 40 mg/dL [facility] LDL target level 70 mg/dL [facility] cholesterol, target level 200 mg/dL [facility] creatine kinase, serum <0.2 [facility] Estimated Glomerular Filtration Rate (calc) >60 [facility] calcium, serum 9.1 mg/dL [facility] creatinine, serum 0.50 mg/dL [facility] urea nitrogen, blood 23 mg/dL [facility] carbon dioxide, serum, total 28 mmol/L [facility] chloride, serum 100 mmol/L [facility] potassium, serum 4.4 mmol/L [facility] sodium, serum 138 mmol/L [facility] troponin I <0.02 [facility] triglyceride, serum, fasting 121 mg/dL [facility] HDL cholesterol, serum 46 mg/dL [facility] LDL cholesterol, serum 103 mg/dL [facility] cholesterol, serum 175 mg/dL [facility] PTT patient 25 s [facility] prothrombin time (patient) 12.7 s [facility] international normalized ratio (INR) 1.0 [facility] platelet count 202 10*3/uL [facility] red blood cell distribution width 13.3 % [facility] mean corpuscular hemoglobin concentration, RBC 34.0 g/dL [facility] mean corpuscular hemoglobin, RBC 29.9 pg [facility] mean corpuscular volume, RBC 87.9 fL [facility] hematocrit, blood 35.4 % [facility] hemoglobin, blood 12.1 g/dL [facility] erythrocyte (RBC) count 4.03 10*6/mm3 [facility] monocyte count, blood 0.3 10*3/mm3 [facility] lymphocyte count, blood 2.2 10*3/mm3 [facility] monocytes as percent of blood leukocytes 4.7 % [facility] lymphocytes as percent of blood leukocytes 32.7 % [facility] leukocyte count, blood 6.8 10*3/mm3 [facility] nitrate usage 0 Sarah Welch HISTORY OF MEDICATION USE Medication Status Instructions Dates Provider Indications Com ments Xarelto 2.5 mg tablet active Take 1 tablet by mouth twice a day 08/14 David Vanegas MD Jardiance active David Vanegas MD Eliquis 5 mg tablet completed - 08/14 David Vanegas MD albuterol sulfate 90 mcg/actuation HFA aerosol inhaler active David Vanegas MD rifabutin 150 mg capsule completed - 08/14 aDvid Vanegas MD cyclobenzaprine 5 mg tablet completed - David Vanegas MD Xarelto 2.5 mg tablet completed TAKE 1 TABLET BY MOUTH TWICE DAILY 09/28 - 08/14 David Vanegas MD furosemide 20 mg tablet active TAKE 1 TABLET BY MOUTH ONCE DAILY 09/28 Shania Sandraam metoprolol succinate 25 mg tablet extended release 24 hr active TAKE 1 TABLET BY MOUTH ONCE DA[facility] tablet completed Take 1 tablet by mouth once a day TAKE 1 TABLET DAILY 06/09 - 09/28 Kydenita Blake metoprolol succinate 25 mg tablet extended release [...] 10 mg tablet completed - 11/17 Isabel Ventimimanisha [employer] furosemide 20 mg tablet completed TAKE 1 [...] mouth twice daily 03/30 - 09/28 Shania Blake Farxiga 10 mg tablet completed Take 1 tablet by mouth once a day 03/30 - 03/01 Scarlet Cooper RN Kerendia 10 mg tablet completed Take 1 tablet by mouth once a day 03/30 - 04/21 Ella Orr BACKUP ADMINISTRATOR Kaseyfred CharonickiColin Insulin 100 unit/mL insulin pen completed - [...] 2.5 mg tablet completed - 03/30 David Bautistauelise SoloStar U-300 Insulin 300 unit/mL (1.5 mL) insulin pen active David Vanegas MD Touelise SoloStar U-300 Insulin 300 unit/mL (1.5 mL) insulin pen completed 78 unit once a day 03/01 - 03/30 Marlene Saunders #22, 87 days supply, Prescribed by LIGIA CANTU, Filled 12/31/2019 K + 698 completed take one tablet by mouth once daily 09/27 - 03/27 Marlene Saunders JARDIANCE 10 MG ORAL TABLET completed TAKE ONE TABLET BY MOUTH ONCE DAILY on hold per surgeash 09/27 - 03/27 Marlene Saunders Norvasc 2.5 [...] TABLET completed as needed - 09/27 Ruba Lagunaby Lasix 20 mg tablet completed once a [...] TABLET completed once daily 10/02 - 03/27 Isael Wiggins gabapentin 600 mg tablet completed as [...] needed for pain 09/14 - 03/27 Koki Stsoni PRAVACHOL 40 MG ORAL TABLET completed ONE [...] completed 1 tab daily - 03/27 Koki Singhber CALCIUM 500 +D TABLET completed 1 tab daily - 03/27 Isael Wiggins LANTUS SOLUTION completed 75 units in evening 09/26 - 03/27 Marlene Omeromisty DIOVAN 40 MG ORAL TABLET completed ONE TAB. DAILY 09/20 - 08/04 Cynthia Underwood BACKUP ADMINISTRATOR FEMHET completed 03/03 tab one tab daily [...] completed ONE TAB. DAILY 09/07 - 10/14 Yari Covingtonman Change to Metoprolol while on backorder CALCIUM CARBONATE TABLET completed 1 tablet twice daily - 08/06 Melissa [place] MULTIVITAMINS ORAL CAPSULE completed ONE TAB. DAILY - 03/27 Jordin Lovett LESCOL XL 80 MG ORAL TABLET EXTENDED RELEASE 24 HOUR completed 1 tablet daily - 08/07 David Vanegas MD SANCTURA 20 MG ORAL TABLET completed twice daily - 03/18 Salinas Viera RN metformin 1,000 mg tablet completed twice a day 10/13 - 08/14 David Vanegas MD AVANDIA 4 MG ORAL [...] Observation Value Provider drug use no David Serota M D [...] D alcohol use no David Serota M Bo chewing tobacco use Never David winslow MD smoking, year quit 1997 David cannon MD smoking history, tot al pack/year 35 David Vanegas MD smoking history, tot al pack/day 1 David Vanegas MD cigarette use yes David Vanegas MD smoking status Former smoker David turner MD drug use no Isabel Ventimig della [employer] alcohol use no Isabel Ventimig della [employer] smoking status Former smoker Isabel Venti miglia [facility] social history E&M Marital Statu s: L demi with family/friends E thnicity: C yenifer: 4 children P percy is a former smoker. R egular Exercise - no S moking History: Leilani greer is a former smoker. David Vanegas MD social history reviewed E&M revi ewed - no changes required David Vanegas MD social history E&M Marital Statu s: L demi with family/friends E thnicity: C yenifer: 4 children P percy is a former smoker. R egular Exercise - no Smoking History: Leilani greer is a former smoker. David Vanegas MD social history reviewed E&M revi ewed - no changes required David Vanegas MD physical exercise, frequency, days per week no Charlettegenet Marquis caffeine use, averag e drinks per day yes Charlettegenet Marquis chewing tobacco use Never Charlettegenet Moody smoking, year quit 1997 Charlette alcantara smoking history, tot al pack/year 35 Charlette Benitez smoking history, tot al pack/day 1 Charlettegenet Marquis cigarette use yes Charlette Marquis smoking status Former smoker Charlette Marquis social history reviewed E&M revi ewed - no changes required David Vanegas MD quit smoking, stage quit David winslow MD social history reviewed E&M revi ewed - no changes required Ella Orr NP physical exercise, frequency, days per week no Ting Dafter caffeine use, averag e drinks per day yes Ting Dafter chewing tobacco use Never Catherin e Dafter smoking, year quit 1997 Ting Dafter smoking history, tot al pack/year 35 Ting Dafter smoking history, tot al pack/day 1 Ting Dafter cigarette use yes Ting Dafter smoking status Former smoker Ting [place] is quit smoking, stage quit David winslow [...] exercise, frequency, days per week no Marlene Saunders caffeine use, averag e drinks per day yes Marlene Kellelder chewing tobacco use Never Marlene Gr donenenfelder smoking, year quit 1997 Marlene Tatum soto smoking history, tot al pack/year 35 Marlene Kellelder smoking history, tot al pack/day 1 Marlene Omeroer cigarette use yes Marlene Da Silvanf elder smoking status Former smoker Marlene Da Silva jorge lelder social history reviewed E&M revi ewed - [...] Marry Henson smoking, year quit 1997 Marry Sow carol smoking history, tot al pack/year 35 Marry Henson smoking history, tot al pack/day 1 Marry Henson cigarette use yes Marry velazquez smoking status Former smoker Marry calix physical exercise, frequency, days per week no Isael Wiggins alcohol use, average drinks per day social Isael Wiggins alcohol use yes IsaelShirin Andersone darleenon caffeine use, averag e drinks per day yes Isael Wiggins chewing tobacco use Never Niall Wiggins smoking, year quit 1997 Isael Wiggins smoking history, tot al pack/year 35 Isael Wiggins smoking history, tot al pack/day 1 Isael Wiggins cigarette use yes Isael joseph smoking status Former smoker Isael [facility] chavira social history E&M Marital Statu s: L [...] social Isael Wiggins alcohol use yes Isael morejonon caffeine use, averag e drinks per day [...] Uzma Ileana chewing tobacco use Never Cynthia oliveros NP smoking status Former smoker Cynthia velazquez NP social history E&M Marital Statu s: L [...] Pascale Ortiz smoking status Former smoker Pascale abdi social history reviewed E&M i ewed - no changes required David Vanegas MD number of grandchildren David Vanegas MD Ruba Ray quit smoking, stage quit David winslow MD social history E&M Marital Statu s: Marilin simms with family/friends E thnicity: C hildren: 4 children Leilani greer is a former smoker. R egular Exercise - no Smoking History: Leilani greer is a former smoker. David Vanegas MD social history reviewed E&M i ewed - no changes required David Vanegas MD physical exercise, frequency, days per week no Isaelloree Wiggins alcohol use, average drinks per day social Isael Wiggins alcohol use yes Isael Delarosa darleenon caffeine use, averag e drinks per day yes Isael Wiggins smoking, year quit 1998 Isael Wiggins smoking history, tot al pack/year 35 Isael Wiggins smoking history, tot al pack/day 1 Isael Wiggins cigarette use yes Isael joseph smoking status Former smoker Isael Carolina smoking status Former smoker Cynthia velazquez NP smoking/tobacco cess ation, patient education and counseling yes Cynthia Underwood BACKUP ADMINISTRATOR smoking status Former smoker Cynthia velazquez BACKUP ADMINISTRATOR quit smoking, stage quit David winslow MD handedness R Handed David Soriano physical exercise, frequency, days per week no Pascale Ortiz alcohol use, average drinks per day social Pascale Ortiz alcohol use yes Pascale Ortiz caffeine use, averag e drinks per day yes Pascale Ortiz smoking/tobacco cess ation, patient education and counseling yes Pascale Ortiz smoking, year quit 1997 Pascale Hall Dea smoking history, tot al pack/year 35 Pascale Ortiz smoking history, tot al pack/day 1 Pascale Ortiz cigarette use yes Pascale Ortiz smoking status Former smoker Pascale Gutiérrez nn social history E&M Marital Statu s: Marilin simms with family/friends E thnicity: C hildren: 4 children P attapan is a former smoker. R egular Exercise - no Smoking History: P atient is a former smoker. P atient has been counseled to quit. Cynthia Underwood NP smoking/tobacco cess ation, patient education and counseling yes Cynthia Underwood NP smoking status Former smoker Cynthia velazquez NP quit smoking, stage quit David winslow MD alcohol use, average drinks per day social Marlene Saunders alcohol use yes Marlene cano smoking history, tot al pack/year 35 Marlene Saunders smoking history, tot al pack/day 1 Marlene Saunders cigarette use yes Marlene de la rosa smoking status Former smoker Marlene kidd smoking history, tot al pack/year 20 David Vanegas MD social history reviewed E&M reviewed David Vanegas MD smoking, year quit 1997 Koki Combs hamzah smoking status former smoker Koki Stuebe r social history reviewed E&M reviewed David [...] physical exercise, frequency, days per week no LinkLogic caffeine use, averag e drinks per day yes LinkLogic alcohol use, average drinks per day social basis only LinkLogic smoking status Quit LinkLog FUNCTIONAL STATUS Date Observation Value Provider HRA, CV Assess/Plan, Angina (inactive) Management Plan continue current therapy David Vanegas MD HRA, CV Assess/Plan, Angina (inactive) Management Plan continue current therapy David Vanegas MD HRA, CV Assess/Plan, Angina (inactive) Management Plan continue current therapy David Vanegas MD HRA, CV Assess/Plan, Angina (inactive) Management Plan continue current therapy Isabel Frankel [employer] HRA, CV Assess/Plan, Angina (inactive) Management Plan [...] level yes Chayo Tebid energy level yes [place] Tebid energy level yes [place] Tebid energy level yes [place] Tebid energy level yes [place] Tebid energy level yes [place] Tebid energy level yes [place] Tebid energy level yes [place] Tebid energy level yes [place] Tebid energy level yes [place] Tebid energy level yes [place] Tebid energy level yes [place] Tebid energy level yes [place] Tebid energy level yes [place] Tebid energy level yes [place] Tebid energy level yes [place] Tebid energy level yes [place] Tebid energy level yes [place] Tebid energy level yes [place] Tebid energy level yes [place] Tebid energy level yes [place] Tebid energy level yes [place] Tebid energy level yes [place] Tebid energy level yes [place] Tebid energy level yes [place] Tebid energy level yes [place] Tebid energy level yes [place] Tebid energy level yes [place] Tebid energy level yes [place] Tebid energy level yes [place] Tebid energy level yes [place] Tebid energy level no [place] Tebid energy level no [place] Tebid energy level no [place] Tebid assessment of judgme nt and insight [...] yes Jose Kline energy level yes Jose Schofieldson energy level yes Josekitty SchofieldKline energy level yes Jose Schofieldson energy level yes Josekitty SchofieldKline energy level no Sarah Welch energy level yes Jose Schofieldson energy level yes Jose Schofieldson energy level yes Jose Schofieldson energy level yes Jose Schofieldson energy level yes Jose Schofieldson energy level yes Jose Schofieldson energy level yes Jose Schofieldson energy level no Jose Schofieldson energy level no Jose Kline assessment of [...] Payer name Policy type / Coverage type [employer] party ID [place] [id number] 9 [facility] [id number] ADVANCE DIRECTIVES Name Date DISCUSSED - NO DECISION MADE TREATMENT PLAN Date Name Performer [id number],C,mod David cannon MD [id number],S,weight loss e ncouraged. Isabel Frankel [facility] [id number],S, H er updated medication list for this problem includes: Atorvastatin 40 Mg Tablet (Atorvastatin) ..... Take 1 tablet daily at bedtime Isabel Jameelmiglia [facility] [id number],C,B P well controlled per home RPM average [...] day take 1 tablet daily Isabel Frankel [facility] [id number],S,H as CPAP and is compliant. concern that needs updated settings given progressive SOB. Will repeat IHS on CPAP Isabel Frankel [facility] [id number],C,W ith EF of 65%. Has been unable to tolerate Jardiance. Remains on diuretic. Her BP is well controlled. [facility] [...] day take 1 tablet daily Isabel Frankel [facility] [id number],S,O nly mild on recent echo. Will monitor. Isabel Frankel [facility] [id number],W,H as had ongoing progressive SOB that is [...] proper settings. We will also refer for Rephire study H er updated medication list for [...] day take 1 tablet daily Isabel Frankel [employer] [id number],C,7.4 David Se davis HANSON [id number],B, David turner MD [id number],S, 5 5 David Vanegas MD [id number],S, H eart monitor revealed no arrythmias. SR with no ectopy, pauses. neg hep [place] n eg neg vd for edma David Vanegas MD [id number],S, a bi less then .6 with cladicoiatn d ista dz by angio David Vanegas MD [id number],S, n eg rpr and b12 David Vanegas MD [id number],S, 1 100 David Vanegas MD [id number],S, David turner MD [id number],S, s core 110 N o angina 3 0% distal lad David Vanegas MD [id number],B, s tii; anemic on iron H AD INFUSIN AND RESOVLED N, HAD COLON, David Vanegas MD [id number],S, David turner MD [id number],S,d ue to ms? 2 97 David Vanegas MD [id number],S, m odeated ms and midl mr David Romina HANSON [id number],C,modeated ms a nd midl mr David Vanegas [id number],S,8.2 David cannon MD [id number],S, David turner MD [id number],S, 2 97 David Vanegas MD [id number],S, H eart monitor revealed no arrythmias. SR with no ectopy, pauses. neg hep [place] n eg neg vd for edma David Vanegas MD [id number],S, n eg rpr and b12 David Vanegas MD [id number],S, a bi less then .6 with cladicoiatn d ista dz by angio David Vanegas MD [id number],S, David turner MD [id number],S, M oderate MS , Mild MR. on echo 03/2021. repeat next year David Vanegas MD [id number],S, s core 110 N o angina 3 0% distal lad David Vanegas MD [id number],B, s tii; anemic on iron H AD INFUSIN AND RESOVLED N, HAD COLON, David Vanegas MD [id number],S, David turner MD [id number],B, s tii; anemic on iron H AD INFUSIN AND RESOVLED N, HAD COLON, David Vanegas MD [id number],S,8.2 David Se rota [id number],B,55 David Ser joselin [id number],S, n eg rpr and b12 David Vanegas MD [id number],S, David turner MD [id number],S,s tii; anemic on iron H AD INFUSIN AND RESOVLED N, HAD COLON, David Vanegas MD [id number],C,6.7 David cannon MD [id number],S,a bi less then .6 with cladicoiatn d ista dz by angio David Vanegas MD [id number],S,s core 110 N o angina 3 0% distal lad David Vanegas MD [id number],S, H eart monitor revealed no arrythmias. SR with no ectopy, pauses. neg hep [place] n eg neg vd for edma ,neg uiacr David Vanegas MD [id number],B, H eart monitor revealed no arrythmias. SR with no ectopy, pauses. David Vanegas MD [id number],S, 2 97 David Vanegas MD [id number],S,efgr 45 Sima Vanegas MD [id number],S, M oderate MS , Mild MR. on echo 03/2021. repeat next year David Vanegas MD [id number],C, 5 .8 F arxiga too expensive, invokana diarhrrea. was on jardiance in the past but thinks she had a reaction as well. C urrently on metformin and insulin Ella Orr NP [id number],C,s tart kerendia H er updated medication list for this problem includes: Metoprolol Succinate 25 Mg Tablet Extended Release 24 Hr (Metoprolol succinate) ..... Take 1 tablet daily Aspirin 81 Mg Tablet,delayed Release (dr/ec) (Aspirin) ..... Take 1 tablet daily Ella Orr NP [id number],C,N o angina 3 0% distal lad Ella Orr NP [id number],C,M oderate MS , Mild MR. on echo 03/2021. repeat next year Ella Orr NP [id number],C,H eart monitor revealed no arrythmias. SR with no ectopy, pauses. Ella Magi Dominga BACKUP ADMINISTRATOR [id number],C,mod ms with m ild mr David Romina HANSON [id number],S, David turner MD [id number],S, r echeck echo to eval David Vanegas MD [id number],S,297 David Se rota [id number],S,1100 David S mistyota [id number],S,n eg hep [place] n eg neg vd for edma ,neg uiacr David Vanegas MD [id number],C,5.8 David Se rota [id number],C,dista dz by johnny Vanegas MD [id number],B,andwhitleyofarrah bb increaed David Vanegas MD [id number],S, n eg rpr and b12 David Vanegas MD [id number],S, David turner MD [id number],S, F ollows with pulmonary David Vanegas MD [id number],S, 3 0% distal lad David Vanegas MD [...] of 65%. Has been unable to tolerate Jardiance.\\blet daily David Vanegas MD Cardiology: a bi less then .6 with cladicoiatn d ista dz by angio David Vanegas MD Cardiology: H eart monitor revealed no arrythmias. SR with no ectopy, pauses. neg hep [place] n eg neg vd for edma David Vanegas MD Cardiology:abby sherman , ms pregresson by echo at [facility] ms and rm bye shawanda 2022 [...] David Vanegas MD Cardiology David Vanegas MD Cardiology:mild ms a nd rm bye shawanda 2022 2 97 David Vanegas MD Cardiology David Vanegas MD Cardiology:297 W ith EF of 65%. Has been unable to tolerate Jardiance.\\blet daily David Vanegas MD Cardiology:The patie nt is using CPAP on a regular basis. The patient has been benefiting from therapy and should continue use. mod, on rx needs new titarton David Vanegas MD needs titration:mod David turner MD Cardiology:weight loss encourage d. Isabelclaus Frankel [facility] Cardiology: H er updated medication list for this problem includes: Atorvastatin 40 Mg Tablet (Atorvastatin) ..... Take 1 tablet [facility] Cardiology:BP well c ontrolled per home RPM [...] once a day take 1 tablet daily [place] Marlys [facility] Cardiology:Has CPAP and is compliant. concern that needs updated settings given progressive SOB. Will repeat IHS on CPAP [place] [facility] Cardiology:With EF o f 65%. Has been unable to tolerate Jardiance. Remains on diuretic. Her BP is well controlled. Will plan [facility] study to see if helps [...] once a day take 1 tablet daily Isabelclaus Frankel [facility] Cardiology:Only mild on recent e cho. Will monitor. Isabel Marlys [facility] Cardiology:Has had o ngoing progressive SOB that [...] proper settings. We will also refer for [facility] study H er updated medication [...] day take 1 tablet daily Isabel Frankel [facility] Cardiology:7.4 David Vanegas MD Cardiology David Vanegas [...] HAD COLONDavid MD Cardiology David Vanegas MD Cardiology:due to [...] H AD INFUSIN AND RESOVLED N, HAD David JOLLY MD Cardiology David Vanegas MD Cardiology: s tii; anemic on iron H AD INFUSIN AND RESOVLED N, HAD David JOLLY MD Cardiology:8.2 David Vanegas MD Cardiology:55 David Vanegas MD TeleHealth: n eg rpr and b12 David Vanegas MD TeleHealth David Vanegas MD TeleHealth:stii; ane nicole on iron H AD INFUSIN AND RESOVLED N, HAD COLON, David Vanegas MD TeleHealth:6.7 David Vanegas MD TeleHealth:hilda less [...] next year David Vanegas MD Cardiology-seen with BACKUP ADMINISTRATOR: 5 .8 F arxiga too expensive, invokana diarhrrea. was on jardiance in the past but thinks she had a reaction as well. C urrently on metformin and insulin Ella Orr NP Cardiology-seen with BACKUP ADMINISTRATOR:start patel Apple er updated medication list for this problem includes: Metoprolol Succinate 25 Mg Tablet Extended Release 24 Hr (Metoprolol succinate) ..... Take 1 tablet daily Aspirin 81 Mg Tablet,delayed Release (dr/ec) (Aspirin) ..... Take 1 tablet daily Ella Orr NP Cardiology-seen with BACKUP ADMINISTRATOR:No angina 3 0% distal lad Ella Orr NP Cardiology-seen with BACKUP ADMINISTRATOR:Moderate MS , Mild MR. on echo 03/2021. repeat next year Ella Orr NP Cardiology-seen with BACKUP ADMINISTRATOR:Heart monitor revealed no arrythmias. SR with no ectopy, pauses. Ella Orr NP :mod ms with mild mr Davidkrissy still MD TeleHealth David Vanegas MD TeleHealth: r echeck echo to fletcher David Vanegas MD TeleHealth:297 David Vanegas MD TeleHealth:1100 David Vanegas MD TeleHealth:neg hep p anek n eg neg vd for edma ,neg uiacr David Vanegas MD TeleHealth:5.8 David Vanegas MD TeleHealth:dista dz by angio Jorge Vanegas MD TeleHealth:andersojn bb increaed David Vanegas MD TeleHealth: n eg rpr and b12 David Vanegas MD TeleHealth David Vanegas MD TeleHealth: F ollows with pulmonary David Vanegas MD TeleHealth: 3 0% distal lad David Vanegas MD Cardiology Follow up :does not appear fluid overloaded at this time. Cynthia Alcaraz NP Cardiology Follow up :recheck ec ho to eval Cynthia Alcaraz NP Cardiology Follow up :check echo Cynthia Alcaraz NP Cardiology Follow up : H er updated [...] One tab by mouth daily Cynthia Alcaraz NP Cardiology Follow up : H er updated medication list for this problem includes: Atorvastatin Calcium 40 Mg Oral Tablet (Atorvastatin calcium) ..... Take 1 tab daily at bedtime Cynthia Alcaraz NP Cardiology Follow up Cynthia thomas NP Cardiology: 3 0% distal lad David Vanegas MD Cardiology David Vanegas MD Cardiology: n eg rpr and b12 David Vanegas MD Cardiology David Vanegas MD Cardiology David Vanegas MD Cardiology David Vanegas MD Cardiology:mod, grad 6 David cannon MD Cardiology: H AD INFUSIN AND RESOVLED N, HAD COLON, David Vanegas MD Cardiology:297 David Vanegas MD Cardiology:30 by [...] David Vanegas MD Cardiology follow up David tsill MD Cardiology follow up :down to 13 5 David Vanegas MD Cardiology follow up :30% distal lad David Vanegas MD Cardiology follow up :neg neg vd for edma ,neg uiacr David Vanegas MD Cardiology follow up : P atient is compliant with CPAP. David Vanegas MD Cardiology:Follows with Villa Underwood NP Cardiology:BP stable . Continue current [...] FOLATRE [place] David Vanegas MD Cardiology follow up:shorty herrp Butler lisa Vanegas MD Cardiology follow up [...] daily at bedtime Lovaza 1 Gm Caps (Gvanj-1-tmbs ethyl esters) ..... 2 capsules daily David Vanegas MD Cardiology - BACKUP ADMINISTRATOR ramon jones:Patient's endocrine MD had placed her [...] breath, fatigue, dizziness, nausea, or diaphoresis) of [place] Cardiovascular Society Class III (defined as symptoms with everyday living activities, i.e. moderate limitation) or [place] Cardiovascular Society Class IV (defined as inability [...] this problem includes: Lovaza 1 Gm Caps (Gdjix-4-jjht ethyl esters) ..... 2 capsules daily C [...] physiologic aortic v alve regurgitation. w ill incdewaynee hedy David Vanegas MD Cardiology:on rx, us ing [...] this problem includes: Lovaza 1 Gm Caps (Upnpk-7-banb ethyl esters) ..... 2 capsules daily C [...] this problem includes: Lovaza 1 Gm Caps (Gddhy-8-cpwd ethyl esters) ..... 2 capsules daily C HOL: 155 (08/05/2015) LDL: 53 (08/05/2015) HDL: 52 (08/05/2015) T (08/05/2015) C HOL (goal): 200 (08/05/2015) LDL (goal): 70 (08/05/2015) HDL (goal): 40 (08/05/2015) TG (goal): 150 (08/05/2015) David Vanegas MD Cardiology:many sx will borrego Sima Vanegas MD Cardiology:may need iron infusio n [...] David Vanegas MD Cardiology:pro high then darren Jorge arpita Vanegas MD Cardiology -HTN/Lipi ds:Triglycerides are elevated but sugars are not well controlled. She has been on some steroids due to allergic reaction to antiobiotics. W ill repeat after sugars are better controlled. H er updated medication list for this problem includes: Lovaza 1 Gm Caps (Kozke-1-dkka ethyl esters) ..... 2 capsules daily Cynthia [...] this problem includes: Lovaza 1 Gm Caps (Bmixm-1-wyzw ethyl esters) ..... 2 capsules daily Cynthia [...] W ANT DIET PILL, WILL CONSIDER MEDIFAST Davdi Vanegas MD Cardiology:155/71 David Vanegas MD Cardiology:great [...] this problem includes: Lovaza 1 Gm Caps (Rpyzw-6-xvmz ethyl esters) ..... 2 capsules daily Cynthia [...] this problem includes: Lovaza 1 Gm Caps (Xgklq-4-ewih ethyl esters) ..... 2 capsules daily Patient [...] daily Orders: Full PFT (*) S pirometry (CPT-56546) C omplete Echo (CPT-58984) e Prescribe - Check this box if eRx is used (CPT-G8553) E CP Commercial (CPT-54054) David Vanegas MD follow up David Vanegas MD follow up: O rders: F ull PFT (*) S pirometry (CPT-98003) C omplete Echo (CPT-80175) e Prescribe - Check this box if eRx is used (CPT-G8553) E CP Commercial (CPT-24279) David Vanegas MD follow up: T he following medications were removed from the medication list: Aspirin 81 Mg Tabs (Aspirin) ..... One tab. daily Her updated medication list for this problem includes: Atenolol 25 Mg Tabs (Atenolol) ..... One tab. daily Orders: F ull PFT (*) S pirometry (CPT-67881) C omplete Echo (CPT-93968) e Prescribe - Check this box if eRx is used (CPT-G8553) E CP Commercial (CPT-80380) David Vanegas MD follow up David Vanegas MD follow up David Vanegas MD follow up: O rders: F ull PFT (*) S pirometry (CPT-33276) C omplete Echo (CPT-66556) e Prescribe - Check this box if eRx is used (CPT-G8553) E CP Commercial (CPT-07137) David Vanegas MD follow up: T he following medications were removed from the medication list: Aspirin 81 Mg Tabs (Aspirin) ..... One tab. daily Her updated medication list for this problem includes: Atenolol 25 Mg Tabs (Atenolol) ..... One tab. daily Orders: F ull PFT (*) S pirometry (CPT-47392) C omplete Echo (CPT-29455) e Prescribe - Check this box if eRx is used (CPT-G8553) E CP Commercial (CPT-25372) David Vanegas MD follow up: O rders: F ull PFT (*) S pirometry (CPT-11461) C omplete Echo (CPT-79620) e Prescribe - Check this box if eRx is used (CPT-G8553) E CP Commercial (CPT-27182) David Vanegas MD follow up: H er [...] ..... One tab. daily David Vanegas MD [facility] only, use bare metal stent David Vanegas MD [facility] only, use bare metal stent: H er updated medication list for this problem includes: Liothyronine Sodium 25 Mcg Tabs (Liothyronine sodium) ..... Take one tablet twice daily David Vanegas MD rl only, use bare metal stent David Vanegas MD [facility] only, use bare metal stent David Vanegas MD rl only, use bare metal stent: H er updated medication list for this problem includes: Aspirin 81 Mg Tabs (Aspirin) ..... One tab. daily Atenolol 25 Mg Tabs (Atenolol) ..... One tab. daily Orders: C ardiac Cath - Left - GC (*) David Vanegas MD [facility] only, use bare metal stent: H er [...] Left - GC (*) David Vanegas MD [facility] only, use bare metal stent: H er [...] Left - GC (*) David Vanegas MD [facility] only, use bare metal stent David Vanegas MD [facility] only, use bare metal stent David Vanegas [...] up: O rders: C ardiopulmonary Stress Test (CPT-54654) E CP Commercial (CPT-84416) C omplete Echo (CPT-41354) S tress Test - Adenosine (39685) David Vanegas MD follow up: O rders: C ardiopulmonary Stress Test (CPT-86768) E CP Commercial (CPT-05668) C omplete Echo (CPT-69444) S tress Test - Adenosine (49878) David Vanegas MD follow up David Vanegas MD follow up David Vanegas MD follow up David Vanegas MD follow up David Vanegas MD follow up David Vanegas MD follow up: O rders: C ardiopulmonary Stress Test (CPT-05947) E CP Commercial (CPT-11050) C omplete Echo (CPT-75333) S tress Test - Adenosine (51925) David Vanegas MD follow up: H er [...] ormal pulmonic valve. (10/19/2007) Orders: S pirometry (CPT-20278) C omplete Echo (CPT-60285) S tress Test - Adenosine (11385) David Vanegas MD follow up: B P [...] (Atenolol) ..... One tab. daily Orders: Spirometry (CPT-71782) C omplete Echo (CPT-53473) S tress Test - Adenosine (90048) David Vanegas MD follow up David Vanegas MD follow up: O rders: S pirometry (CPT-33938) C omplete Echo (CPT-65957) S tress Test - Adenosine (03197) David Vanegas MD follow up: H er [...] Normal pulmonic valve. (10/19/2007) Orders: S pirometry (CPT-86797) C omplete Echo (CPT-00343) S tress Test - Adenosine (21650) David Vanegas MD follow up: O rders: S pirometry (CPT-89893) C omplete Echo (CPT-36412) S tress Test - Adenosine (89270) David Vanegas MD follow up: H er updated medication list for this problem includes: Aspirin 81 Mg Tabs (Aspirin) ..... One tab. daily Atenolol 25 Mg Tabs (Atenolol) ..... One tab. daily Orders: Spirometry (CPT-75399) C omplete Echo (CPT-05082) S tress Test - Adenosine (05878) David Vanegas MD follow up: H er [...] Cl: 100 (07/25/2010) O rders: S pirometry (CPT-42692) C omplete Echo (CPT-55982) S tress Test - Adenosine (15909) David Vanegas MD follow up: H er [...] P TT: 25 (07/25/2010) Orders: S pirometry (CPT-44929) C omplete Echo (CPT-22234) S tress Test - Adenosine (01643) David Vanegas MD follow up David Vanegas [...] tab. daily (you are allegic to viet-i) aDvid Vanegas MD routine: H er updated medication [...] Vanegas MD routine: O rders: E KG (CPT-49299) David Vanegas MD routine David Vanegas MD routine: H er updated medication list for this problem includes: Aspirin 81 Mg Tabs (Aspirin) ..... One tab. daily Atenolol 25 Mg Tabs (Atenolol) ..... One tab. daily David Vanegas MD routine David Vanegas MD routine David Vanegas MD ECP nrrsqt-nk-oqa pa in greater in right: H er updated medication list for this problem includes: Levothroid 150 Mcg Tabs (Levothyroxine sodium) ..... 1 tablet dailly David Vanegas MD ECP kzqxii-gj-mlx pa in greater in right: H er [...] BP: 125/71 (07/07/2008) David Vanegas MD ECP ilelbh-hy-osg pa in greater in right: H er [...] filling pressures. (11/26/2003) David Vanegas MD ECP aiuwsd-oe-tcz pa in greater in right: H er [...] ormal pulmonic valve. (10/19/2007) Orders: E KG (CPT-27174) David Vanegas MD ECP yvrufg-ex-rjd pa in greater in right: H er updated medication list for this problem includes: Atenolol 25 Mg Tabs (Atenolol) ..... One tab. daily Aspirin 81 Mg Tabs (Aspirin) ..... One tab. daily BP today: 128/78 P rior BP: 125/71 (07/07/2008) David Vanegas MD ECP jyeelp-os-vym pain greater i n right David Vanegas MD ECP koxkmk-ob-ncp pa in greater in right: H er updated medication list for this problem includes: Lescol Xl 80 Mg Tb24 (Fluvastatin sodium) ..... 1 tablet daily BP today: 128/78 Prior BP: 125/71 (07/07/2008) David Vanegas MD ECP chkyhs-yr-jyc pain greater i n right David Vanegas MD ECP bdwenn-vl-gla pa in greater in right: H er [...] daily Orders: H olter Monitor 24 Hr (CPT-83425) BP today: 138/80 Prior BP: / () [...] Orders: X -Ray, Chest, PA & Lateral (CPT-63290) H olter Monitor 24 Hr (CPT-61638) David Vanegas MD rattle : B P [...] pressure of 18mmHg. (10/26/2006) Orders: E KG (CPT-03282) E CP Commercial (CPT-84445) C omplete Echo (CPT-44004) BP today: 138/80 Prior BP: / () [...] Echo Sleep Study Titratio n DLCO - 61675 FRC - 47172 FVC - 74867 Stress Cardiac PET-C T Complete Echo Stress [...] Cath - Right - SLHV DLCO - 91633 FRC - 18581 FVC - 49272 PROTHROMBIN TIME WIT H INR CBC (INCLUDES [...] Hr X-Ray, Chest, PA & L ateral 95348 MOD 30-39min Complex e/m visit ad d on HISTORY OF PROCEDURES Procedure Date Procedure Name Provider Procedure Notes S tatus Complex e/m visit add on David Vanegas MD completed Complex e/m visit add on David Vanegas MD completed FVC / MVV with bronchodilator - 27725 David Vanegas MD completed BLOOD COUNT HEMOGLOBIN David Vanegas MD completed FRC - 18927 David Vanegas MD complet ed SpO2 w/o 6min walk/titration David Vanegas MD completed DLCO - 54512 David Vanegas MD comple roxanne EKG David Vanegas MD complete d EKG David Vanegas MD complete d EKG David Vanegas MD complete d EKG David Vanegas MD complete d EKG David Vanegas MD complete d SNOMED-CT: 065502537 801079 Current Medications Documented David Vanegas MD completed FVC / MVV with bronchodilator - 88129 David Vanegas MD completed BLOOD COUNT HEMOGLOBIN David Vanegas MD completed FRC - 14791 David Vanegas MD complet ed SpO2 - 13962 David Vanegas MD comple roxanne DLCO - 07987 David Vanegas MD comple roxanne SNOMED-CT: 352690520 301618 Current Medications Documented David Vanegas MD completed CT- Coronary CA score David Vanegas MD completed EKG David Vanegas MD complete d SNOMED-CT: 968866683 491390 Current Medications Documented David Vanegas MD completed SNOMED-CT: 653839937 064231 Current Medications Documented David Vanegas MD completed SNOMED-CT: 10999009 Physical Exam, Performed: Pulse Exam of Foot David Vanegas MD completed EKG David Vanegas MD complete d SNOMED-CT: 157126476 806640 Current Medications Documented David Vanegas MD completed SNOMED-CT: 83305107 Physical Exam, Performed: Pulse Exam of Foot David Vanegas MD completed EKG David Vanegas MD complete d SNOMED-CT: 256549247 304426 Current Medications Documented David Vanegas MD completed Lipid Strip Cynthia Underwood BACKUP ADMINISTRATOR comple roxanne EKG David Vanegas MD complete d EKG David Vanegas MD complete d EKG David Vanegas MD complete d SUSAN Vanegas MD complete d ePrescribe - Check t his box if eRx is used David Vanegas MD completed SUSAN Vanegas MD complete d SUSAN Vanegas MD complete d SUSAN Vanegas MD complete d
--- OUTSIDE RECORDS SUMMARY | 2024-08-14 12:18 | XMS_ITS | Clinical Summary ---
Author Organization [facility] Address [address] [facility], [place] [address] Phone Care Team Providers Care Application Technical Designer Name Role Phone Charles Armendariz DO Primary [...] Tablet Take 1 Tab by mouth daily. [id number] 1 Tab 0 6 Active azithromycin (ZITHROMAX) [...] 11:25 AM CDT Height 161.3 cm (5' 3.5) 11/05/2015 11:25 AM CD T Body Mass Index 38.88 11/05/2015 11:25 AM CDT Plan of Treatment Health Maintenance Due Date Last Done Comments Hepatitis C Virus (HCV) Screening 1950 Mammogram 1950 Pneumococcal Immunization (50+ years) (1 of 2 - PCV) 06/20/1971 Zoster Immunization (1 of 2) 06/20/1971 Cologuard 1997 Colonoscopy 1997 Colorectal Cancer Screening 1997 Immunochemical Fecal Occult Blood 1997 Respiratory Syncytial Virus (RSV) Immunization (Adult) (1 - Risk 60-74 years 1-dose series) 2012 DEXA Bone Density 09/24/2023 09/23/2021 SARS-COV-2 Immunization ( season) 2023 09/28/2021, 03/22/2021, 06/10/2020, Additional history exists Influenza Immunization (Season Ended) 2024 12/05/2022, 12/09/2019, 05/27/2015, Additional history exists DTaP/Tdap/Td Immunization Discontinued 09/14/2021 TdaP Immunization Completed 09/14/2021 Hepatitis B Immunization Aged Out No longer eligible based on patient's age to complete this topic Human Papillomavirus (HPV) Immunization Aged Out No longer eligible based on patient's age to complete this topic Meningococcal Immunization (ACWY) Aged Out No longer eligible based on patient's age to complete this topic Rotavirus Immunization Aged Out No lo nger eligible based on patient's age to complete this topic Insurance MEDICARE [facility] Care Teams Application Technical Designer Relationship Specialty Start Date End Date Charles Armendariz DO [facility][NOTE 3] [place] [address] PCP - General Internal Medicine 11/05/15
--- OUTSIDE RECORDS SUMMARY | 2024-08-14 12:18 | XMS_ITS | Clinical Summary ---
Author Organization [facility] Gigi Begumcharline Address [address] [place] [place] [address] Care Team Providers Care Plaster Molder Name Role Phone Charles Armendariz DO Primary Care Provider Allergies Active Allergy Reactions Criticality Noted Date Comments Canagliflozin Other (See Comments) Low 10/28/2021 Ciprofloxacin Nausea and Vomiting Low 09/08/2022 Daptomycin Diarrhea Low 06/29/2020 Doxycycline Other (See Comments),Unknown Low 09/19/2019 Empagliflozin Diarrhea Low 04/21/2021 Lisinopril Cough Low 08/13/2018 Povidone-Iodine Rash Medium 05/05/2017 Semaglutide Unknown High 01/27/2021 Qnnxpux-Vks-Vng Reductase Inhibitors Muscle Pain Medium 11/05/2020 Valsartan [...] daily. Active fluticasone propionate (FLONASE) 50 mcg/spray [place], Suspension nasal inhaler Administer 2 Sprays in [...] Encounters Date Type Department Care Team Description 08/14/2024 External Device Data STL ABSTRACTION Provider, Abstract 08/12/2024 Orders Only [facility] Oncology and Hematology - [address] [place] [address] Ray Richards MD Chronic anemia 08/02/2024 Orders Only [facility] Oncology and Hematology - [address] [place] [address] Ray Richards MD 07/31/2024 9:30 AM CDT Office Visit [facility] Oncology and Hematology - [address] [place] [phone] Ray Richards MD Chronic anemia (Primary Dx) 07/31/2024 Orders Only [facility] Oncology and Hematology - [address] [place] [phone] Ray Richards MD 07/29/2024 Orders Only [facility] Oncology and Hematology - [address] [place] [phone] Ray Richards MD Chronic anemia 07/23/2024 External Device Data STL ABSTRACTION Provider, Abstract 07/23/2024 External Device Data STL ABSTRACTION Provider, Abstract 07/18/2024 External Device Data STL ABSTRACTION Provider, Abstract 07/18/2024 External Device Data STL ABSTRACTION Provider, Abstract 07/15/2024 Orders Only [facility] Oncology and Hematology - [address] [place] [phone] Ray Richards MD Chronic anemia 07/03/2024 Orders Only [facility] Oncology and Hematology - [place] [address] [place] [phone] Ray Richards MD 07/01/2024 Orders Only [facility] Oncology and Hematology - [place] [address] [place] [address] Ray Richards MD Chronic anemia 06/25/2024 External Device Data STL ABSTRACTION Provider, Abstract 06/25/2024 External Device Data STL ABSTRACTION Provider, Abstract 2024 Orders Only [facility] Oncology and Hematology - [place] [address] [place] [phone] Ray Richards MD 06/17/2024 Orders Only [facility] Oncology and Hematology - [place] [address] [place] [address] Ray Richards MD Chronic anemia 06/13/2024 Orders Only [facility] Oncology and Hematology - [address] [place] [address] Ray Richards MD Chronic anemia (Primary Dx) 06/03/2024 Orders Only [facility] Oncology and Hematology - [address] [place] [address] Ray Richards MD Chronic anemia 05/28/2024 External Device Data STL ABSTRACTION Provider, Abstract 05/28/2024 External Device Data STL ABSTRACTION Provider, Abstract 05/28/2024 External Device Data STL ABSTRACTION Provider, Abstract 05/22/2024 9:45 AM CDT Office Visit [facility] Oncology and Hematology - [address] [place] [address] Ray Richards MD Chronic anemia (Primary Dx) 05/22/2024 Orders Only [facility] Oncology and Hematology - [address] [place] [address] Ray Richards MD 05/20/2024 Orders Only [facility] Oncology and Hematology - [address] [place] [address] Ray Richards MD Chronic anemia from Last [...] on file Legal Sex Female 3:40 AM PUBLIC RELATIONS COUNSELOR Gender Identity Not on file Sexual Orientation Not on file Last Filed Vital Signs Vital Sign Reading Time Taken Comments Blood Pressure 114/57 07/31/2024 9:40 AM CDT Pulse 80 07/31/2024 9:36 AM CDT Temperature 36.3 C (97.3 F) 07/31/2024 9:36 AM CDT Respiratory Rate 15 07/31/2024 9:36 AM CDT Oxygen Saturation 91% 07/31/2024 9:36 AM CDT Inhaled Oxygen Concentration - - Weight 95.7 kg (211 lb) 07/31/2024 9:36 AM CDT Height 154.9 cm (5' 1) 04/12/2023 1:08 PM PUBLIC RELATIONS COUNSELOR Body Mass Index 39.87 04/12/2023 1:08 PM PUBLIC RELATIONS COUNSELOR Plan of Treatment Upcoming Encounters Date Type Department Care Team (Late st Contact Info) Description 11/20/2024 9:00 AM CDT Office Visit [facility] Oncology and Hematology [facility] [address] [facility] [address] [place] [address] Ray Richards MD [address] [facility] [address] [place] [address] Health Maintenance Due Date Last [...] Associated Diagnosis Comments CBC WITH DIFFERENTIAL Routine 07/31/2024 1:54 PM CDT IRON PANEL Routine 07/17/2024 10:41 AM CDT BASIC METABOLIC PANEL Routine 07/17/2024 10:29 AM CDT CBC WITH DIFFERENTIAL Routine 07/03/2024 3:56 PM CDT CBC MIXED CELL DIFFERENTIAL Routine 05/29 12:58 PM CDT CBC WITH AUTODIFFERENTIAL Routine 2024 1:41 PM CDT from Last 3 Months Results * CBC WITH DIFFERENTIAL (07/31/2024 1:54 PM CDT) Only the most recent of2 resultswithin the time period is included. Blood us Ray Richards MD HEMATOLOGY ORDERABLES Final Res ult * IRON PANEL (07/17/2024 10:41 AM CDT) Blood us Ray Richards MD CHEMISTRY ORDERABLES Final Resu lt * BASIC METABOLIC PANEL (07/17/2024 10:29 AM CDT) Blood us Ray Richards MD CHEMISTRY ORDERABLES Final Resu lt * CBC MIXED CELL DIFFERENTIAL (2024 12:58 PM CDT) Blood Ray Richards MD HEMATOLOGY ORDERABLES Final Res ult * CBC WITH AUTODIFFERENTIAL (05/21/2024 1:41 PM CDT) Blood Ray Richards MD HEMATOLOGY ORDERABLES Final Res ult from Last 3 Months Insurance MEDICARE PART A AND B [facility] BLUE ACCESS/[employer] PPO Propanc O OPEN ACCESS Propanc O OPEN ACCESS Member Subscriber Plan / Payer (Ef fective 2023-Present) Name:Aleyda Quinonez Relation to Subscriber:Self Name:Aleyda Quinonez Payer ID:Not on file Group ID:[id number] Type:O Address: [place] [id number] BCBS BLUE ACCESS/TRUE BLUE PPO MEDICARE PART A AND B Care Teams Plaster Molder Relationship Specialty Start Date End Date Charles Armendariz DO [address] [address] PCP - General Internal Medicine 11/04/22
--- OUTSIDE RECORDS SUMMARY | 2024-08-14 12:18 | XMS_ITS | Encounter Summary ---
Author Organization [facility] Address [address] [place] [address] Care Team Providers Care Water Conservationist Name Role Phone Charles Armendariz DO Primary Care Provider Encounter Details Date Type Department Care Team (Late Contact Info) Description 08/12/[address] [facility] Oncology and Hematology [facility] [address] [place] [address] Ray Richards MD [address] [employer] [address] [place] [address] Chronic anemia Social History Tobacco Use [...] on file Legal Sex Female 3:40 AM SUPERVISOR REWORK Gender Identity Not on file Sexual Orientation Not on file documented as of this encounter Plan of Treatment Upcoming Encounters Date Type Department Care Team (Late Contact Info) Description 11/20/2024 9:00 AM CDT Office Visit [facility] Oncology and Hematology [address] [place] [address] Ray Richards MD [address] [employer] [address] [place] [address] documented as of this encounter Visit Diagnoses Diagnosis Chronic anemia Anemia, unspecified documented in this encounter Care Teams Water Conservationist Relationship Specialty Start Date End Date Charles Armendariz DO [address] [address] PCP - General Internal Medicine 11/04/22 documented as of this encounter
--- OUTSIDE RECORDS SUMMARY | 2024-08-14 12:18 | XMS_ITS | Clinical Summary ---
Author Organization [facility] Address [address] [place] [address] Care Team Providers Care Data Warehousing Architect Name Role Phone Tammy Arroyo RN Unavailable [phone] Charles Armendariz DO Primary Care Provider [phone] Source Comments [facility],non-owned Affiliates and Associated Physician Practices is amultiple site organization consisting of ambulatory clinics and hospital sitesin [place], [place], [place] and [place]. This disclosure is being madepursuant to the Care Everywhere program and may not contain all information available regarding this patient. Last updated 17.[facility] Allergies Active Allergy Reactions Criticality Noted Date Comments Povidone Iodine Rash Medium 05/05/2017 Valsartan Urticaria Medium 03/30/2017 Vancomycin Urticaria Medium 11/05/2015 Medications * Be aware that medications may not be up to date on this document. Alwaysverify current medications with the patient. montelukast (SINGULAIR) 10 MG tablet Take 10 mg by mouth once daily Active fluticasone propionate (FLONASE) 50 MCG/ACT nasal spray [place] 2 Sprays into each nostril once daily [...] on file Legal Sex Female 6:07 AM BOOSTER PUMP OILER Gender Identity Not on file Sexual Orientation [...] 105.7 kg (233 lb) 05/05/2017 6:48 AM BOOSTER PUMP OILER Height 161.3 cm (5' 3.5) 05/05/2017 6:48 AM BOOSTER PUMP OILER Body Mass Index 40.63 05/05/2017 6:48 AM BOOSTER PUMP OILER Plan of Treatment Health Maintenance Due Date [...] patient's age to complete this topic Insurance [facility] Address: [facility] [address] [place] [address] [facility] MEDIC[facility] Advance Directives * Full Code (Latest Code Status on File) Date Activated Date Inactivated Comments 05/26/2015 11:04 PM 06/01/2015 6:08 PM * Full Code Date Activated Date Inactivated Comments 05/26/2015 7:39 PM 05/26/2015 11:04 PM Care Teams Data Warehousing Architect Relationship Specialty Start Date End Date Charles Armendariz DO PCP - General 06/04/20 Tammy Arroyo, RN Typer 05/26/15
--- OUTSIDE RECORDS SUMMARY | 2024-08-14 12:18 | XMS_ITS | Encounter Summary ---
Author Organization [facility] Address [address] [place] [address] Care Team Providers Care Asbestos Remover Name Role Phone Charles Armendariz DO Primary Care Provider Encounter Details Date Type Department Care Team (Late Contact Info) Description 08/14/2024 External Device Data [facility] ABSTRACTION Provider, Abstract NO ADDRESS ON FILE Social History Tobacco Use Types Packs/Day Years Used Date Smoking Tobacco: Former Cigarettes Q uit: 1997 Smokeless Tobacco: Never Alcohol Use Standard Drinks/Week Comments Not Currently 0 (1 standard drink = 0.6 oz pur e alcohol) Feeling Safe Answer Date Recorded Are you in a relationship wi th someone who hurts you emotionally and/or physically? No 04/27/2024 Comments Unknown Sex and Gender Information Value Date Recorded Sex Assigned at Not on file Legal Sex Female 3:40 AM [employer] Gender Identity Not on file Sexual Orientation Not on file documented as of this encounter Plan of Treatment Upcoming Encounters Date Type Department Care Team (Late Contact Info) Description 11/20/2024 9:00 AM CDT Office Visit [facility] Oncology and Hematology - [place] [address] [facility] [address] [place] [address] Ray Richards MD [address] [facility] [address] [place] [address] documented as of this encounter Visit Diagnoses Not on filedocumented in this encounter Care Teams Asbestos Remover Relationship Specialty Start Date End Date Charles Armendariz DO [address] [place] [address] PCP - General Internal Medicine 11/04/22 documented as of this encounter
--- OUTSIDE RECORDS SUMMARY | 2024-08-14 12:18 | XMS_ITS | Referral Summary ---
Author Organization [facility] Address [address] [place] [address] Care Team Providers Care Senior Windows Systems Administrator Name Role Phone Charles Armendariz DO Primary Care Provider [phone] David Vanegas MD [phone] Encounters Date Type Department Care Team Description 08/13/2024 1:30 PM CDT Office Visit [facility] Diabetes and Endocrinology [address] [place] [phone] Stacy Hernandez NP Type 2 diabetes mellitus with hyperglycemia, with long-term current use of insulin (HCC) (Primary Dx); Hypertension associated with type 2 diabetes mellitus (HCC); Hyperlipidemia associated with type 2 diabetes mellitus (HCC); Diabetic polyneuropathy associated with type 2 diabetes mellitus (HCC); Hypothyroidism, unspecified type; Class 3 severe obesity due to excess calories with serious comorbidity and body mass index (BMI) of 40.0 to 44.9 in adult 08/07/2024 Telephone [facility] Diabetes and Endocrinology [address] [place] [phone] Stacy Hernandez NP error 07/11/2024 10:55 AM CDT Lab [address] [place] [address] Rheumatoid arthritis involving multiple sites with positive rheumatoid factor (HCC); High risk medication use 07/11/2024 10:20 AM CDT Office Visit [facility] Rheumatology [address] [place] [address] 2nd [address] [place] [address] Shawanda De La Cruz NP Rheumatoid arthritis involving multiple sites with positive rheumatoid factor (HCC) (Primary Dx); High risk medication use 05/16/2024 9:40 AM CDT Office Visit [facility] Infectious Diseases [address] [place] [address] Ana Laura Ramires NP LTBI (latent tuberculosis infection) (Primary Dx) from Last 3 Months Allergies Active Allergy Reactions Criticality Noted Date Comments Ciprofloxacin Nausea only Low 09/08/2022 Daptomycin Diarrhea Low 06/29/2020 Doxycycline Unknown Low 09/19/2019 Canagliflozin Diarrhea Low 10/28/2021 Iodine Strong (Lugols) Unknown 08/13/2024 Empagliflozin Diarrhea Low 04/21/2021 Lisinopril Cough Low 08/13/2018 Semaglutide Diarrhea High 01/27/2021 Povidone-Iodine Rash Medium 05/05/2017 Xgrmqan-Rzl-Drk Reductase Inhibitors Muscle pain Medium 11/05/2020 Trimethoprim Unknown 08/13/2024 Valsartan Hives,Urticaria High 10/08/2015 Vancomycin Hives Medium [...] total) by mouth every morning Activ e vc-aqtsqvz-zbo -iron fm-FA-vitK 18 mg-400 mcg- 25 mcg tabletIndicati ons:Vitamin Deficiency Prevention Take 0.5 tablets by mouth 2 (two) times a day 09/15/19 12 Active metoprolol XL (TOPROL-XL) 25 mg extended release tabletIndicati ons:hypertensi on Take 1 tablet (25 mg total) by mouth every morning 06/24/19 21 Active gabapentin (NEURONTIN) 300 mg capsuleIndicat [...] 2 diabetes mellitus, Informant: Self, Reported on 08/13/2024 propylene glycol (SYSTANE COMPLETE OPHT)Indicatio ns:dry eye [...] (250 mg total) by mouth daily Active traMADoL (ULTRAM) 50 mg tablet 07/11/19 25 Active leflunomide (ARAVA) 20 mg tablet Take 1 tablet (20 mg total) by mouth daily 90 tablet 07/12/19 25 Active mv,Ca,min-foli c acid-vit K1 (Women's 50 Plus Advanced) 400-20 mcg tablet Take by mouth daily Active rifabutin (MYCOBUTIN) 150 mg capsule Take 2 capsules (300 mg total) by mouth daily Active SITagliptin phosphate (Januvia) 25 mg tabletIndicati ons:type 2 diabetes mellitus Take 1 tablet (25 mg total) by mouth daily 30 tablet 11 08/14/19 25 026 Active BD Ultra-Fine Mini Pen Needle 31 gauge x 3/16 needleIndicati ons:Type 2 diabetes mellitus with hyperglycemia, with long-term current use of insulin (HCC) USE TO INJECT INSULIN DAILY 100 each 3 08/14/19 25 Active rivaroxaban (Xarelto) 2.5 mg tabletIndicati ons:patient unsure why she is on this med. Take 1 tablet (2.5 mg total) by mouth 2 (two) times a day 01/28/20 21 025 Disconti nued(The rapy complete d) ciprofloxacin (CIPRO) 500 mg tablet TAKE 1 TABLET BY MOUTH TWICE DAILY FOR SYMPTOMS OR UTI 08/26/19 23 Disconti nued(All ergic response ) BD Ultra-Fine Mini Pen Needle 31 gauge x 3/16 needle USE TO INJECT INSULIN DAILY 90 each 1 05/25/19 25 025 Disconti nued(Reo rder) Active Problems Problem [...] symptoms. Assessment & Plan (03/15/2024 10:09 AM CLIENT SUPPORT ASSOCIATE): - Doing well on INH/B6 for [...] diabetes vivek dill 10/24/2023 Assessment & Plan (08/13/2024 1:25 PM CDT): Chronic problem. Currently taking Atorvastatin 40mg. Last lipid panel: 04/30/24 LDL=50 TG=96 Assessment & Plan (04/30/2024 2:13 PM CLIENT SUPPORT ASSOCIATE): Chronic problem. Currently taking Atorvastatin 40mg. Last lipid panel: 03/09/23 LDL=37 YQ=683. Will update labs. Does not mychart. Verified phone #/address to contact re: results. Assessment & Plan (10/24/2023 3:19 PM CDT): Chronic problem. Currently taking Atorvastatin 40mg. Last lipid panel: 03/09/23 LDL=37 KM=782. Positive TB test 09/19/2023 Assessment & Plan (01/01/2024 12:37 PM CLIENT SUPPORT ASSOCIATE): - Unable to tolerate rifabutin as [...] CBC and CMP in 1 month at [facility] - Ok to start biologic for rheumatoid arthritis after she has been on rifabutin for 1 month. Will forward note to rheumatology Class 3 severe obesity due t o excess calories with serious comorbidity and body mass index (BMI) of 40.0 to 44.9 in adult 03/09/2023 Assessment & Plan (08/13/2024 2:13 PM CDT): Discussed healthy diet and importance of regular physical activity (20- 30min/day, 150min/wk). Difficulty with activity d/t chronic/severe bilat knee pain & COPD. Assessment & Plan (03/09/2023 10:05 AM CLIENT SUPPORT ASSOCIATE): Discussed healthy diet and importance of [...] 03/22/2022 Assessment & Plan (03/22/2022 8:59 AM CLIENT SUPPORT ASSOCIATE): Chronic problem, stable. 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 Overview (11/19/2019): Added automatically from request for surgery [id number] Ulnar neuropathy of left upper extremity 020 Overview (11/19/2019): Added automatically from request for surgery [id number] Anxiety 05/24/2019 Asthma 05/24/2019 Brachial neuritis 05/24/2019 Major depressive disorder 05/24/2019 Gastroesophageal reflux disease without esophagi tis 05/24/2019 Gout 05/24/2019 Spleen hematoma 05/24/2019 Osteoarthritis 05/24/2019 Primary localized osteoarthrosis of shoulder reg ion 05/24/2019 Recurrent dislocation of shoulder region 020 Hypothyroidism 04/10/2019 Assessment & Plan (08/13/2024 1:26 PM CDT): Chronic problem. Clinically & biochemically euthyroid on current levothyroxine 100mcg. Aware to take 1st thing in morning, 30-60 minutes before food/drink/other medications. TFTs WNL 04/30/24. Assessment & Plan (04/30/2024 2:14 PM CLIENT SUPPORT ASSOCIATE): Chronic problem. Currently taking levothyroxine 100mcg. [...] 1.23 Assessment & Plan (03/09/2023 9:54 AM CLIENT SUPPORT ASSOCIATE): Chronic problem. Currently taking levothyroxine 100mcg. 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 Currently taking Gabapentin 300mg bid. Reviewed foot care; needs to lotion daily. Aware to check feet nightly, not to go barefoot. Assessment & Plan (04/30/2024 2:13 PM CLIENT SUPPORT ASSOCIATE): Chronic problem. Currently taking Gabapentin 300mg [...] barefoot. Assessment & Plan (03/09/2023 9:47 AM CLIENT SUPPORT ASSOCIATE): Chronic problem. Currently taking gabapentin. Aware to check feet nightly & not go barefoot. Assessment & Plan (09/08/2022 11:14 AM CDT): Chronic problem. Currently taking gabapentin. Aware to check feet nightly. Assessment & Plan (03/21/2022 8:54 AM CLIENT SUPPORT ASSOCIATE): Chronic problem. Currently taking gabapentin. Aware to check feet nightly. Assessment & Plan (05/13/2021 10:51 AM CDT): Foot care discussed Assessment & Plan (11/05/2020 2:29 PM CDT): Foot care discussed The patient does not feel that Neurontin helps of will discontinue Assessment & Plan (04/02/2020 1:40 PM CLIENT SUPPORT ASSOCIATE): On Neurontin Foot care discussed Assessment & Plan (10/19/2017 10:52 AM CDT): Foot care discussed On neurointin Advised on seeing foot drLibertad Hyperlipidemia 10/19/2017 Assessment & Plan (03/09/2023 9:48 AM CLIENT SUPPORT ASSOCIATE): Chronic problem. Current on atorvastatin 40mg daily. Last lipid panel: 11/04/21 LDL=26, DT=542. Will update labs today. Does not mychart. Verified phone #/address to contact re: results. Assessment & Plan (09/08/2022 11:14 AM CDT): Chronic problem. Current on atorvastatin 40mg daily. 11/04/21 LDL=26. No changes. Assessment & Plan (03/21/2022 8:53 AM CLIENT SUPPORT ASSOCIATE): Chronic problem. Current on atorvastatin 40mg [...] Lipitor Assessment & Plan (04/02/2020 1:37 PM CLIENT SUPPORT ASSOCIATE): Goal of treatment , LDL cholesterol [...] therapy. Assessment & Plan (03/12/2019 12:24 PM CLIENT SUPPORT ASSOCIATE): Goal of treatment , LDL cholesterol [...] use of insulin 01/17/2017 Assessment & Plan (08/13/2024 2:12 PM CDT): Chronic problem, A1c uncontrolled; was 8.0% 04/30/24 and now 7.9%. -will try Januvia 25 mg daily. Would like in future to decrease Metformin & increase Januvia if kidney functions improve with better blood sugar control. -will increase your Toujeo from 60 to 65 units nightly Current medications: Metformin 1000mg twice daily with meals Glimepiride 4mg with breakfast & dinner Januvia 25mg daily Toujeo 65 units every evening UTD on labs. UTD on DM eye exam (09/04/23 +PDR [facility]). Discussed need to increase activity outside of [...] skin breakdown and infection. Assessment & Plan (04/30/2024 2:42 PM CLIENT SUPPORT ASSOCIATE): Chronic problem, A1c stable but uncontrolled [...] UTD on DM eye exam (03/06/23 at [facility]). Had appt summer 2023; letter [...] UTD on DM eye exam (03/06/23 at [facility]). Discussed need to increase activity [...] UTD on DM eye exam (03/06/23 at [facility]). Discussed need to increase activity [...] infection. Assessment & Plan (03/09/2023 10:02 AM CLIENT SUPPORT ASSOCIATE): Chronic problem, A1c worsening. A1c breanna [...] re: results. DM eye exam 03/06/23 at [facility]. Letter sent to get copy [...] housework. Assessment & Plan (03/22/2022 9:20 AM CLIENT SUPPORT ASSOCIATE): Chronic problem, not at goal. Continue: [...] consider. Assessment & Plan (03/12/2019 12:23 PM CLIENT SUPPORT ASSOCIATE): Hba1c was Lab Results Component Value [...] Humalog. Assessment & Plan (03/30/2017 12:29 PM CLIENT SUPPORT ASSOCIATE): A1c 6.6 but she does have anemia with elevated RDW. Bydureon since 12/2016 may have also helped to improve A1c but will be stopping that for now. Will evaluate again at next Ov. Assessment & Plan (01/17/2017 10:11 AM CLIENT SUPPORT ASSOCIATE): Hba1c was 8.8 today, indicating inadequate [...] diabetes mónica litus 01/17/2017 Assessment & Plan (08/13/2024 1:26 PM CDT): Chronic problem, well controlled on current Metoprolol XL 25mg daily, furosemide 20mg daily Assessment & Plan (04/30/2024 2:14 PM CLIENT SUPPORT ASSOCIATE): Chronic problem, well controlled on current Metoprolol XL 25mg daily, furosemide 20mg daily Will update labs today. Does not mychart. Verified phone #/address to contact re: results. Assessment & Plan (03/09/2023 9:47 AM CLIENT SUPPORT ASSOCIATE): Chronic problem, well controlled on current Metoprolol XL 25mg daily, furosemide 20mg daily Will update labs today. Does not mychart. Verified phone #/address to contact re: results. Assessment & Plan (09/08/2022 11:14 AM CDT): Chronic problem, well controlled on current Metoprolol XL 25mg daily, furosemide 20mg daily No changes at this time. Assessment & Plan (03/22/2022 9:00 AM CLIENT SUPPORT ASSOCIATE): Chronic problem, well controlled on current metoprolol XL 25mg daily. No changes at this time. Assessment & Plan (07/02/2020 4:04 PM CDT): Goal blood pressure is less than 140/85 Low salt diet was discussed andd recommended The importance of daily aerobic exercise was also emphasized. Continue current meds Assessment & Plan (04/02/2020 1:38 PM CLIENT SUPPORT ASSOCIATE): Goal blood pressure is less than [...] MA. Assessment & Plan (03/12/2019 12:24 PM CLIENT SUPPORT ASSOCIATE): Goal blood pressure is less than [...] medications. Assessment & Plan (03/30/2017 12:33 PM CLIENT SUPPORT ASSOCIATE): Controlled on current medications. Assessment & Plan (01/17/2017 10:12 AM CLIENT SUPPORT ASSOCIATE): Goal blood pressure is less than [...] finger 03/29/2011 Atherosclerotic heart diseas e of [place] coronary artery without angina pectoris 09/09/2010 Chronic [...] atorvastatin Assessment & Plan (03/30/2017 12:33 PM CLIENT SUPPORT ASSOCIATE): Continue statin Obesity due to excess calories 11/05/2015 03/21/2022 Assessment & Plan (03/30/2017 12:20 PM CLIENT SUPPORT ASSOCIATE): Current exercise will be reduced with [...] on file Legal Sex Female 12:14 AM CLIENT SUPPORT ASSOCIATE Gender Identity Not on file Sexual Orientation Not on file Last Filed Vital Signs Vital Sign Reading Time Taken Comments Blood Pressure 120/66 08/13/2024 1:32 PM CDT Pulse 90 08/13/2024 1:32 PM CDT Temperature 37.1 C (98.7 F) 07/11/2024 9:53 AM CDT Respiratory Rate 18 08/13/2024 1:32 PM CDT Oxygen Saturation 95% 07/11/2024 9:53 AM CDT Inhaled Oxygen Concentration - - Weight 96.6 kg (213 lb) 08/13/2024 1:32 PM CDT Height 154.9 cm (5' 0.98) 08/13/2024 1:32 PM CD T Body Mass Index 40.27 08/13/2024 1:32 PM CDT Plan of Treatment Not on file Medical Devices Implanted Type Area Relations Mgr Device Identifier Shelf Expiration Date Model / Serial / Lot Allosource [id number] Freeze Dried Chips Graft 15ml Bone Cancellous Cortical - [id number] Implanted:Qty: 1 on 08/14/2018 by Pradip Whalen MD at [facility] Bone Allosource 08/28/2022 [id number] / / [id number] Allosource [id number] Allogro Freeze Dried Graft 15ml Bone Demineralized Bone Matrix - [id number] Implanted:Qty: 1 on 08/14/2018 by Pradip Whalen MD at [facility] Bone Allosource 03/15/2023 [id number] / / [id number] Intraocular Lens Bilateral : Eye Orthohelix [id number] Maxtorque 4mm 37.5mm Cannulated Self Drill Foot Ankle Long Thread - [id number] Implanted:Qty: 1 on 08/14/2018 by Pradip Whalen MD at [facility] Right: Foot Orthohelix MSD-010-40- 375L / / [employer] [id number] Cristobal .062in 9in Style 1 Wire Fixation Stainless Steel - [id number] Implanted:Qty: 1 on 08/14/2018 by Pradip Whalen MD at [facility] Right: First Toe [employer] [id number] / / Orthohelix Mxl-002-2a Maxlock Extreme 2 Hole [place] Alpha Plate Bone Nonsterile - [id number] Implanted:Qty: 1 on 08/14/2018 by Pradip Whalen MD at [facility] Right: Foot Orthohelix MXL-002-2A / / Orthohelix [id number] Maxtorque 5.5mm 50mm Cannulated Self Drill Foot Ankle Long Thread - [id number] Implanted:Qty: 1 on 08/14/2018 by Pradip Whalen MD at [facility] Right: Foot Orthohelix MSD-010-55- 050L / / Orthohelix [id number] Maxtorque 5.5mm 55mm Cannulated Self Drill Foot Ankle Long Thread - [id number] Implanted:Qty: 1 on 08/14/2018 by Pradip Whalen MD at [facility] Right: Foot Orthohelix MSD-010-55- 055L / / Orthohelix [id number] Maxtorque 7mm 70mm Cannulated Self Drill Foot Ankle Petite Thread - [id number] Implanted:Qty: 1 on 08/14/2018 by Pradip Whalen MD at [facility] Right: Foot Orthohelix MSD-010-70- 070P / / Orthohelix [id number] 4mm 26mm Nonlock Foot Ankle Screw Bone Nonsterile Maxlock Extreme - [id number] Implanted:Qty: 2 on 08/14/2018 by Pradip Whalen MD at [facility] Right: Foot Orthohelix BOTTOM CEMENTER-011-402 6 / / Orthohelix [id number] Maxlock Extreme 4mm 28mm Nonlock Foot Ankle Screw Bone Nonsterile Latex Free - [id number] Implanted:Qty: 1 on 08/14/2018 by Pradip Whalen MD at [facility] Right: Foot Orthohelix BOTTOM CEMENTER-011-402 8 / / Orthohelix [id number] Maxlock Extreme 4mm 24mm Nonlock Foot Ankle Screw Bone Nonsterile - [id number] Implanted:Qty: 1 on 08/14/2018 by Pradip Whalen MD at [facility] Right: Foot Orthohelix BOTTOM CEMENTER-011-40- 24 / / Explanted Type Area Relations Mgr Device Identifier Shelf Expiration Date Model / Serial / Lot Orthohelix Information [employer] Analyst-040 [place] Wire Fixation Nonsterile Latex Free - [id number] Explanted:Qty: 2 on 08/14/2018 at [facility] Right: Foot Orthohelix BOTTOM CEMENTER-040 / / Procedures Procedure Name Priority Date/Time Associated Diagnosis Comments POCT GLUCOSE Routine 08/13/2024 1:37 PM CDT Type 2 diabetes mellitus with hyperglycemia, with long-term current use of insulin (HCC) POCT HEMOGLOBIN A1C Routine 08/13/2024 1 :37 PM CDT Type 2 diabetes mellitus with hyperglycemia, with long-term current use of insulin (HCC) EGFR Routine 07/11/2024 10:58 AM CDT High [...] multiple sites with positive rheumatoid factor (HCC) LIPID PANEL Routine 04/30/2024 2:40 PM CLIENT SUPPORT ASSOCIATE Type 2 diabetes mellitus with hyperglycemia, with long-term current use of insulin (HCC) Hyperlipidemia associated with type 2 diabetes mellitus (HCC) ALBUMIN CREATININE RATIO, URINE Routine 04/30/2024 2:40 PM CLIENT SUPPORT ASSOCIATE Type 2 diabetes mellitus with hyperglycemia, with long-term current use of insulin (HCC) DEXA AXIAL SKELETON BONE DENSITY 1 OR MORE SITES Schedule Routine, Read Routine (OP Routine) 04/02/2024 11:04 AM CLIENT SUPPORT ASSOCIATE Rheumatoid arthritis involving multiple sites with positive rheumatoid factor (HCC) HM DIABETES EYE EXAM Routine 09/04/2023 8:55 AM CDT HEPATITIS PANEL, ACUTE Routine 07/03/2023 10:42 AM CDT High risk medication use from Last 3 Months or Most Recently Relevant to Health Maintenance Results * (ABNORMAL) POCT hemoglobin A1c (08/13/2024 1:37 PM CDT) Hemoglobin A1C, POC 7.9(A) 4.0 - 5.6 % Blood 08/13/2024 1:37 PM CDT us Stacybruno Hernandez WHEEL INSTALLER POINT OF CARE TEST ORDERA BLES Final Result * (ABNORMAL) POCT glucose (08/13/2024 1:37 PM CDT) Pathologist [facility] Glucose Blood, POC 208 Normal Fasting 70 - 100, Random <200 mg/dL Blood 08/13/2024 1:37 PM CDT us Stacy Hernandez WHEEL INSTALLER POINT OF CARE TEST ORDERA BLES Final Result * (ABNORMAL) eGFR (07/11/2024 10:58 AM CDT) Pathologist [facility] eGFR 31(L) >=60 mL/min/1. 73 m2 Comment: [...] PM CDT us Shawanda De La Cruz WHEEL INSTALLER LAB BLOOD ORDERABLES Final Result [facility] Department [place] [address] * Differential, auto (07/11/2024 10:58 AM CDT) Neutrophil abs 3.38 1.50 - 6.50 K/cumm Imm gran abs 0.01 0.00 - 0.10 K/cumm [facility] Lymphocyte abs 1.92 0.80 - 3.30 K/cumm [facility] Monocyte abs 0.59 0.20 - 0.80 K/cumm [facility] Eosinophil abs 0.29 0.00 - 0.50 K/cumm [facility] Basophil abs 0.04 0.00 - 0.10 K/cumm [facility] Neutrophil pct 54.2 % [facility] Comment: Interpretive Data Percent cell count reference ranges are not reported, since discordance with absolute values may lead to misinterpretation of CBC data. Current Interpretive Data was last revised on 2017. Imm gran pct 0.2 % [facility] Comment: Interpretive Data Percent cell count reference ranges are not reported, since discordance with absolute values may lead to misinterpretation of CBC data. Current Interpretive Data was last revised on 2017. Lymphocyte pct 30.8 % [facility] Comment: Interpretive Data Percent cell count reference ranges are not reported, since discordance with absolute values may lead to misinterpretation of CBC data. Current Interpretive Data was last revised on 2017. Monocyte pct 9.5 % [facility] Comment: Interpretive Data Percent cell count reference ranges are not reported, since discordance with absolute values may lead to misinterpretation of CBC data. Current Interpretive Data was last revised on 2017. Eosinophil pct 4.7 % [facility] Comment: Interpretive Data Percent cell count reference ranges are not reported, since discordance with absolute values may lead to misinterpretation of CBC data. Current Interpretive Data was last revised on 2017. Basophil pct 0.6 % [facility] Comment: Interpretive Data Percent cell count reference ranges are not reported, since discordance with absolute values may lead to misinterpretation of CBC data. Current Interpretive Data was last revised on 2017. Blood 07/11/2024 10:5 8 AM CDT 07/11/2024 1:54 PM CDT us Shawanda De La Cruz WHEEL INSTALLER LAB BLOOD ORDERABLES Final Result [facility] [address] [facility] Department [place] [address] * (ABNORMAL) CBC with auto differential (07/11/2024 10:58 AM CDT) WBC 6.23 3.80 - 9.90 K/cumm Hgb 10.4(L) 11.9 - 15.5 g/dL [facility] Hct 33.1(L) 35.6 - 45.5 % [facility] Plt 121(L) 150 - 400 K/cumm [facility] MPV 13.3(H) 9.1 - 12.3 fL [facility] RBC 3.78(L) 3.90 - 5.20 M/cumm [facility] MCV 87.6 81.3 - 96.4 fL [facility] MCH 27.5 27.1 - 33.3 pg [facility] MCHC 31.4(L) 32.3 - 35.7 g/dL [facility] RDW CV 15.6(H) 11.1 - 14.9 % [facility] RDW SD 49.7(H) 35.7 - 48.1 fL [facility] NRBC abs 0.00 0.00 - 0.01 K/cumm [facility] Blood 07/11/2024 10:5 8 AM CDT 07/11/2024 1:54 PM CDT Shawanda De La Cruz WHEEL INSTALLER LAB BLOOD ORDERABLES Final Result Performing Organization Address City/[facility] Co de Phone Number [facility] Department [place] [address] * (ABNORMAL) Erythrocyte sedimentation rate (07/11/2024 10:58 AM CDT) [facility] Erythrocyte sedimentation rate 91(H) 1 - 30 mm/hr Blood 07/11/2024 10:5 8 AM CDT 07/11/2024 1:54 PM CDT us Shawanda De La Cruz NP LAB BLOOD ORDERABLES Final Result Performing Organization Address [facility] Co de Phone Number [facility] [place] [address] * CRP (acute phase) (07/11/2024 10:58 AM CDT) [facility] CRP 1.0 <=10.0 mg/L Blood 07/11/2024 10:5 8 AM CDT 07/11/2024 2:01 PM CDT us Shawanda De La Cruz NP LAB BLOOD ORDERABLES Final Result Performing Organization Address [facility] de Phone Number [facility] Department [place] [address] * (ABNORMAL) Comprehensive metabolic panel (07/11/2024 10:58 AM CDT) [facility] Sodium 142 135 - 145 mmol/L Potassium, pl 5.0(H) 3.3 - 4.9 mmol/L [facility] Chloride 106 97 - 110 mmol/L [facility] CO2 27 22 - 32 mmol/L [facility] Anion gap 9 2 - 15 mmol/L [facility] BUN 53(H) 6 - 25 mg/dL [facility] Creatinine 1.73(H) 0.60 - 1.10 mg/dL [facility] Glucose 115 70 - 199 mg/dL [facility] Comment: Interpretive Data Fasting glucose >/= 126 [...] 2022. Calcium 9.4 8.5 - 10.3 mg/dL [facility] Bilirubin, total 0.3 0.1 - 1.2 mg/dL [facility] Protein, pl 7.6 6.5 - 8.5 g/dL [facility] Albumin 3.6 3.5 - 5.0 g/dL [facility] Alk phos 121 40 - 130 Units/L [facility] ALT 24 7 - 45 Units/L [facility] AST 35 10 - 45 Units/L [facility] Blood 07/11/2024 10:5 8 AM CDT 07/11/2024 2:01 PM CDT Shawanda De La Cruz NP LAB BLOOD ORDERABLES Final Result [facility] [facility] Department [place] [address] * (ABNORMAL) Albumin Creatinine Ratio, Urine (04/30/2024 2:40 PM CLIENT SUPPORT ASSOCIATE) Pathologist [facility] Albumin Ur 3,067.5 mg/L Comment: Interpretive Data No reference range established. Current interpretive data was last revised 2018. Creatinine Ur 81.5 mg/dL [facility] Comment: Interpretive Data No reference range established. Current interpretive data was last revised 2018. Albumin Creatinine Ratio, Ur 3,764(H) 1 - 29 mg/g [facility] Urine 04/30/2024 2:40 PM CLIENT SUPPORT ASSOCIATE 04/30/2024 11:00 PM CLIENT SUPPORT ASSOCIATE us Stacy Hernandez NP LAB URINE ORDERABLES Valery rivera Result [facility] [id number] Department [place] [address] * Lipid panel (04/30/2024 2:40 PM CLIENT SUPPORT ASSOCIATE) Cholesterol 119 30 - 199 mg/dL [...] 2 [facility] Blood 04/30/2024 2:40 PM CLIENT SUPPORT ASSOCIATE 04/30/2024 11:00 PM CLIENT SUPPORT ASSOCIATE us Stacy Hernandez NP LAB BLOOD ORDERABLES Valery rivera Result [facility] [id number] [address] Department [place] [address] * Dexa Axial Skeleton Bone Density 1 or 2 Site (04/02/2024 11:04 AM CLIENT SUPPORT ASSOCIATE) Anatomical Region Laterality Modality Body N/A Radiographic Sheron ging Narrative 04/02/2024 2:27 PM CLIENT SUPPORT ASSOCIATE Patient Name: Aleyda Dobbs Date of : 1950 Date of scan: 04/02/2024 Bone mineral density was performed on a HoloAudio[employer] Discovery Densitometer. Based on machine cross-calibration and [...] by the International Society of Clinical Densitometry. [id number] Shawanda De La Cruz NP IMG DXA PROCEDURES Final R esult * (ABNORMAL) DIABETES EYE EXAM (09/04/2023 8:55 AM CDT) Historical Provider HEALTH MAINTENANCE Final Result * Hepatitis panel, acute Blood (07/03/2023 10:42 AM CDT) Hep A IgM Nonreactive Nonreactive Hep B core IgM Nonreactive Nonreactive [facility] Hep C Ab Nonreactive Nonreactive [facility] Comment:Antibodies to HCV no t detected. Does NOT exclude the possibility of recent exposure to HCV. Current interpretive data was last revised on 21 HepBsAg Nonreactive Nonreactive [facility] Blood 07/03/2023 10:4 2 AM CDT 07/03/2023 2:00 PM CDT Shawanda De La Cruz NP LAB MICROBIOLOGY - GENERAL ORDERABLES Final Result [facility] Department [place] [address] from Last 3 Months or Most Recently Relevant to Health Maintenance Insurance MEDICARE [employer] [facility] OPEN ACCESS MEDICARE [employer] [facility] OPEN ACCESS MEDICARE BLUE ACCESS [employer]LINK OPEN ACCESS Advance Directives For more information, please contact: [phone] * Full Code (Latest Code Status on File) Date Activated Date Inactivated Comments 07/20/2020 2:30 PM 07/21/2020 6:17 PM * Full Code Date Activated Date Inactivated Comments 08/14/2018 8:57 PM 08/15/2018 6:35 PM Care Teams 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
--- OUTSIDE RECORDS SUMMARY | 2024-08-14 12:19 | XMS_ITS | Data Portability ---
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 Assessment Encounter Date Assessment Date Assessment LastModified [...] Go To The Location Of Their Choice, [address] 3 06:14:20 urinalys is, dipstick 2022 023 CHRIS In-Office Order, Internal Use Only DO Not Attach Compendium DO Not Attach Compendium, Do Not Delete/merge, [id number] 3 10:02:27 culture, urine 2022 023 CHRIS [facility] (Centralized Electronic Ordering - All Locations), Patient Can Go To The Location Of Their Choice, [address] 3 06:14:08 urinalys is, dipstick 2019 myranda In-Office Order, Internal Use Only DO Not Attach Compendium DO Not Attach Compendium, Do Not Delete/merge, [id number] 0 15:19:43 culture, urine 2019 [place] [facility], 2022 Kang Mccormick, [address], [address], 0 06:12:47 bacteria l vaginosi s panel, vaginal 2019 [place] [facility] (Centralized Electronic Ordering - All Locations), Patient Can Go To The Location Of Their Choice, [address] 0 06:12:46 culture, vaginal/ rectal, streptoc occus group B 2019 [place] [facility] (Centralized Electronic Ordering - All Locations), Patient Can Go To The Location Of Their Choice, [address] 0 06:12:47 Referral None recorded . Procedures None recorded . Surgeries None recorded . Imaging None recorded . Medication Orders benzonat ate 200 mg capsule 2023 024 [place] [facility]79143, [address] [facility], [place], [place], [id number], 4 09:38:18 Zithroma x Z-Kirt 250 mg tablet 2023 024 [place] [facility] #59977, [address] [facility], [place], [place], [id number], 4 09:38:17 cetirizi ne 10 mg tablet 2023 024 [facility]39128, [address] [place], [place], [id number], 4 09:38:18 estradio l 0.01% (0.1 mg/gram) vaginal cream 2022 024 [facility]21921, [address] [place], [place], [id number], 4 09:03:10 estradio l 0.01% (0.1 mg/gram) vaginal cream 2022 023 [facility]36231, [address] [place], [place], [id number], 4 09:01:41 estradio l 0.01% (0.1 mg/gram) vaginal cream 2022 023 [facility] #16016, [address] [place], [place], [id number], 4 09:01:41 Premarin 0.625 mg/gram vaginal cream 2019 020 [facility], [address] [place] [address], [id number], 3 13:59:43 ciproflo xacin 250 mg tablet 2019 020 [facility], [address] [place] [address], [id number], 3 14:21:14 Patient TargetsNo targets recorded. Patient Instructions Encounter Date Encounter Id Patient Instructions Last Modified By Organization Details Last Modified Time 12/05/2019 [id number] influenza (flu) vaccine: care instructions myranda Not available 12/05/2019 15:19:43 atrophic vaginitis: care instructions mwasserman Not available 12/05/2019 13:29:10 05/31/2022 [id number] atrophic vaginitis: care instructions Not available 05/31/2022 09:44:32 Urge Incontinence: Care Instructions Not available 05/31/2022 09:44:18 Stress Incontinence: Care Instructions Not available 05/31/2022 09:44:18 kegel exercises: care instructions Not available 05/31/2022 09:44:18 bladder training: care instructions Not available 05/31/2022 09:44:18 A healthy lifestyle: care instructions Not available 05/31/2022 09:12:13 09/09/2022 [id number] atrophic vaginitis: care instructions Not available 09/09/2022 15:50:24 A healthy lifestyle: care instructions Not available 09/09/2022 15:50:24 12/09/2022 [id number] atrophic vaginitis: care instructions Not available 12/09/2022 15:01:23 A healthy lifestyle: care instructions Not available 12/09/2022 15:01:23 04/17/2023 [id number] body mass index: care instructions [email or web address] Not available 04/17/2023 09:38:09 learning about healthy weight [email or web address] Not available 04/17/2023 09:38:09 upper respiratory infection [...] DO Not Attach Compendium, Do Not Delete/merge, [id number] 12/05/2019 12:30:15 12/05/19 20 12/05/2019 urina lysis , dipst ick Nitrite positi ve Not Available In-Office Order Internal Use Only DO Not Attach Compendium DO Not Attach Compendium, Do Not Delete/merge, [id number] 12/05/2019 12:30:15 12/05/19 20 12/05/2019 urina lysis , dipst ick Urobilinogen .2 Not Available In-Of fice Order Internal Use Only DO Not Attach Compendium DO Not Attach Compendium, Do Not Delete/merge, [id number] 12/05/2019 12:30:15 12/05/19 20 12/05/2019 urina lysis , dipst ick Protein 300 Not Available In-Office Order Internal Use Only DO Not Attach Compendium DO Not Attach Compendium, Do Not Delete/merge, [id number] 12/05/2019 12:30:15 12/05/19 20 12/05/2019 urina lysis [...] 12/05/2019 urina lysis , dipst ick Specific Stowe 1.030 Not Available In-Off ice Order Internal [...] DO Not Attach Compendium, Do Not Delete/merge, [id number] 12/05/2019 12:30:15 12/05/19 20 12/05/2019 urina lysis , dipst ick Glucose Negati ve Not Available In-Office Order Internal Use Only DO Not Attach Compendium DO Not Attach Compendium, Do Not Delete/merge, [id number] 12/05/2019 12:30:15 12/05/1912/07/2019 bacte rial vagin osis panel , vagin al trich vag by ALBERTO Negati ve negati ve Not Available [facility] ([facility]) [address] [place], [address], 12/11/2019 06:12:46 12/05/1912/07/2019 bacte rial vagin osis panel , vagin al chlamydia trachomatis, ALBERTO Negati ve negati ve Not Available [facility] ([facility]) [address] [place], [address], 12/11/2019 06:12:46 12/05/1912/07/2019 bacte rial vagin osis panel , vagin al neisseria gonorrhoeae, ALBERTO Negati ve negati ve Not Available [facility] ([facility]) [address] [place], [address], 12/11/2019 06:12:46 12/05/1912/08/2019 bacte rial vagin osis panel , vagin al hsv 1 ALBERTO Negati ve negati ve Not Available [facility] ([facility]) [address] [place], [address], 12/11/2019 06:12:46 12/05/1912/08/2019 bacte rial vagin osis panel , vagin al hsv 2 ALBERTO Negati ve negati ve Not Available [facility] ([facility]) [address] [place], [address], 12/11/2019 06:12:46 12/05/1912/11/2019 bacte rial vagin osis panel , vagin al atopobium vaginae Low - 0 score Not Available [facility] ([facility]) [address] [place], [address], 12/11/2019 06:12:46 12/05/1912/11/2019 bacte rial vagin osis panel , vagin al bvab 2 Low - 0 score Not Available [facility] ([facility]) [address] [place], [address], 12/11/2019 06:12:46 12/05/1912/11/2019 bacte rial vagin osis [...] ermin ate for BV. Addit ional clini mo data shoul d be evalu ated to estab jacquelin a diagn osis. Total score 3-6: Indic ates the prese nce of BV. This test was devel oped and its perfo rmanc e zachary cteri stics deter mined by [employer]. It has not been clear ed or appro cristian by the Food and Drug Admin istra tion. The FDA has deter mined that such clear ance or appro daniel is not neces radha. Not Available [facility] ([facility]) [address] [place], [address], 12/11/2019 06:12:46 12/05/1912/11/2019 bacte rial vagin osis panel , vagin al janice albicans, ALBERTO Negati ve negati ve Not Available [facility] ([facility]) [address] [place], [address], 12/11/2019 06:12:46 12/05/1912/11/2019 bacte rial vagin osis panel , vagin al janice glabrata, ALBERTO Negati ve negati ve Not Available [facility] ([facility]) [address] [place], [address], 12/11/2019 06:12:46 12/05/1912/07/2019 cultu re, vagin al/re ctal, strep tococ cus group B strep gp B ALBERTO Negati ve negati ve Cente rs for Disea se Contr ol and Preve ntion (CDC) and Ameri can Congr ess of Obste trici ans and Gynec ologi sts (ACOG ) guide lines for preve ntion of perin atal group B strep tococ mo (GBS) disea se speci fy co-co llect ion of a vagin al and recta l swab speci men to maxim ize sensi tivit y of GBS detec tion. Per the CDC and ACOG, swabb ing both the lower vagin a and rectu m subst antia lly incre ases the yield of detec tion jacy red with sampl ing the vagin a [...] n is noted . Not Available [facility] ([facility]) [address] [facility], [place], [address], 12/11/2019 06:12:47 12/05/1912/08/2019 cultu re, urine urine culture, routine Final report abnormal Not Available [facility] ([facility]) [address] [facility], [place], [address], 12/11/2019 06:12:47 12/05/1912/08/2019 cultu re, urine result [...] Prote us mirab ilis. Not Available [facility] ([facility]) [address] [facility], [place], [address], 12/11/2019 06:12:47 12/05/1912/08/2019 cultu re, urine antimicrobia [...] thopr im/Rankin lfa S Not Available [facility] ([facility]) [address] [facility], [place], [address], 12/11/2019 06:12:47 06/01/1906/02/2022 URINE CULTU RE, ROUTI NE urine culture, routine FINAL REPORT Not Available [facility] ([facility]) [address] [facility], [place], [address], 06/02/2022 06:14:07 06/01/1906/02/2022 URINE CULTU RE, ROUTI NE result 1 COMMEN T Cultu re shows less than 10,00 0 colon y formi ng units of bacte edy per allison liter of urine . This colon y count is not gener ally consi dered to be clini samra signi will t. Not Available [facility] ([facility]) [address] [place], [address], 06/02/2022 06:14:07 06/01/19 23 06/01/2022 NUSWA B BV AND BRIANNA DA, ALBERTO atopobium vaginae LOW - 0 score Not Available [facility] ([facility]) [address] [facility], [place], [address], 06/02/2022 06:14:19 06/01/19 23 06/01/2022 NUSWA B BV AND BRIANNA DA, ALBERTO bvab 2 LOW - 0 score Not Available [facility] ([facility]) [address] [place], [address], 06/02/2022 06:14:19 06/01/19 23 06/01/2022 NUSWA B [...] ermin ate for BV. Addit ional clini mo data shoul d be evalu ated to estab jacquelin a diagn osis. Total score 3-6: Indic ates the prese nce of BV. This test was devel oped and its perfo rmanc e zachary cteri stics deter mined by [facility]. It has not been clear ed or appro cristian by the Food and Drug Admin istra tion. Not Available [facility] ([facility]) [address] [facility], [place], [address], 06/02/2022 06:14:19 06/01/19 23 06/01/2022 NUSWA B BV AND BRIANNA DA, ALBERTO janice albicans, ALBERTO NEGATI VE negati ve Not Available [facility] ([facility]) [address], [place], [address], 06/02/2022 06:14:19 06/01/19 23 06/01/2022 NUSWA B BV AND BRIANNA DA, ALBERTO janice glabrata, ALBERTO NEGATI VE negati ve Not Available [facility] ([facility]) [address] [facility], [place], [address], 06/02/2022 06:14:19 06/01/19 23 05/31/2022 urina lysis [...] 05/31/2022 urina lysis , dipst ick Specific [place]owe 1.025 Not Available In-Off ice Order Internal [...] respiratory culture Final report Not Available [facility] ([facility]) [address] [facility], [place], [address], 09/13/2022 07:14:00 09/10/19 23 09/13/2022 UPPER RESPI RATOR Y CULTU RE result 1 Commen t Routi ne respi rator y jason Not Available [facility] ([facility]) [address] [facility], [place], [address], 09/13/2022 07:14:00 09/10/19 23 09/14/2022 PATHO LOGY REPOR T . Commen t Mater ial submi tted: . PART A: vagin a - VAGIN AL BIOPS Y PART B: vagin a - VAGIN AL BIOPS Y #2 Not Available [facility] ([facility]) [address] [facility], [place], [address], 09/14/2022 17:10:11 09/10/19 23 09/14/2022 PATHO LOGY REPOR T . Commen t Diagn osis: A. VAGIN AL BIOPS Y: - BENIG N VERRU COID SQUAM OUS PROLI FERAT ION WITH COMBI FATUMA FEATU RES OF SEBOR RHEIC KERAT OSIS AND CONDY ANNEMARIE ACUMI NATUM . B. VAGIN AL BIOPS Y #2: - POLYP OID BENIG N SQUAM OUS PROLI FERAT ION JACY TIBLE WITH CONDY ANNEMARIE ACUMI NATUM . COMME NT: CLINI MO CORRE LATIO N AND PATIE NT FOLLO W-UP ARE RECOM JANETTE Knight [facility] 09/14 1042 Local Not Available [facility] ([facility]) [address] [facility], [place], [address], 09/14/2022 17:10:11 09/10/19 23 09/14/2022 PATHO LOGY REPOR T . Commen t Elect margarita caba d: . Onel awan MD, Patho logis t Not Available [facility] ([facility]) [address] [facility], [place], [address], 09/14/2022 17:10:11 09/10/19 23 09/14/2022 PATHO LOGY [...] FELIPE 09/12 1054 Local Not Available [facility] ([facility]) [address] [place], [address], 09/14/2022 17:10:11 09/10/19 23 09/14/2022 PATHO LOGY REPOR T . Commen t Patho logis t provi ded ICD-1 0: L82.1 Not Available [facility] ([facility]) [address] [place], [address], 09/14/2022 17:10:11 09/10/19 23 09/14/2022 PATHO LOGY REPOR T . Commen t CPT . 72292 1, 41094 2 Not Available [facility] ([facility]) [address] [place], [address], 09/14/2022 17:10:11 10/08/1910/07/2020 MAMMO , scree guerda, bilat eral No observ ation record ed. [email or web address] [facility] [address] [place], [address], 11/19/2020 12:35:37 12/01/1911/30/2022 MAMMO , scree guerda, bilat eral No observ ation record ed. [address], [place], [address], 12/05/2022 10:12:44 12/01/1911/30/2022 MAMMO , scree guerda, bilat eral No observ ation record ed. [facility] [address] [place], [address], 12/01/2022 15:59:09 Result Notes None recorded. Problems Name Problem SNOMED Code Status Onset Date Resolution Date Notes Provider Name and Address Organization Details Recorded Time Morbid obesity 484701528 Active 2019 Eduardo De Los SantosKaya null, [place] - [facility] 0 15:34:32 Hypothyroid ism 33389912 Active 2019 Eduardo De [place] [facility] 0 15:55:57 Hypertensiv e disorder 98399912 Active 2019 Eduardo De [place] [facility] 0 15:56:02 Diabetes mellitus 37947435 Active 2019 Eduardo [place] [facility] 0 15:56:06 Hyperlipide silva 37762860 Active 2019 Eduardo [place] [facility] 0 15:56:18 Rheumatoid arthritis 74376123 Active 2022 FRANCISCO J SERRANO Attn: Salvador chavez,[address], [place], [address], [place] - [facility] 3 09:01:26 Menopause present 584196148 Active 2022 FRANCISCO J SERRANO Attn: Salvador chavez,[address] [place], [address], [place] - [facility] 3 09:03:40 Recurrent urinary tract infection 532075818 Active 2022 FRANCISCO J SERRANO Attn: Salvador chavez,[address] [place], [address], [place] [facility] 3 09:03:42 Liver enzymes level above reference range 027901111 Active 2022 FRANCISCO J SERRANO Attn: Salvador chavez,[address] [place], [address], [place] [facility] 3 09:04:52 Splenic hematoma 769060266 Active 2022 FRANCISCO J SERRANO Attn: Salvador chavez,[address] [place], [address], [place] [facility] 3 09:05:02 Partial thickness rotator cuff tear 897649076 Active 2022 FRANCISCO J SERRANO Attn: Salvador chavez,[address] [place], [address], [place] [facility] 3 09:05:19 Primary fibromyalgi a syndrome 54999317 Active 2022 FRANCISCO J SERRANO Attn: Salvador chavez,[address] [place], [address], [place] [facility] 3 09:05:32 Bilateral shoulder osteoarthri tis 0174365132874 08 Active 2022 FRANCISCO J SERRANO Attn: Salvador chavez,[address] [place], [address], [place] [facility] 3 09:05:58 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 FRANCISCO J SERRANO Attn: Salvador chavez,[address] [place], [address], [place] [facility] 3 09:06:06 Gastroesoph ageal reflux disease without esophagitis 960232046 Active 2022 FRANCISCO J SERRANO Attn: Salvador scott,[address] [facility], [place], [address], [place] [facility] 3 09:06:14 Obstructive sleep apnea syndrome 79453034 Active 2022 FRANCISCO J SERRANO Attn: Salvador chaevz,[address] [facility], [place], [address], [place] [facility] 3 09:06:37 Gout 74704195 Active 2022 FRANCISCO J SERRANO Attn: Salvador chavez,[address] [place], [address] [facility] 3 09:06:45 Anxiety 25878486 Active 2022 FRANCISCO J SERRANO Attn: Salvador chavez,[address] [place], [address], [place] [facility] 3 09:06:51 Major depressive disorder 106533785 Active 2022 FRANCISCO J SERRANO Attn: Salvador chavez,[address] [place], [address] [facility] 3 09:06:58 Amputated big toe 774534595 Active 2022 FRANCISCO J SERRANO Attn: Salvadro chavez,[address] [place], [address], [place] [facility] 3 09:07:44 Diabetic peripheral neuropathy 429237003 Active 2022 FRANCISCO J SERRANO Attn: Salvador chavez,[address] [place], [address], [place] [facility] 3 09:07:53 Problem Notes None recorded. Procedures Surgical History Date Name Laterality Status Provider Name and Address Organization Details Recorded Time 09/10/19 23 Shave Biopsy completed FRANCISCO J SERRANO Attn: Accounting,[address], [place], [address], [facility] - [facility] 09/09/2022 16:09:52 05/01/19 20 Most Recent Mammogram completed Pascale Sherwood MA PA - [facility] 12/05/2019 12:29:20 07/29/19 19 Orthopedic Surgery completed Rosario Corley MA [facility] 04/11/2019 15:29:51 06/06/19 18 Date of Last Pap Smear completed Rosario Corley MA [facility] 04/11/2019 15:26:57 02/27/19 15 Orthopedic Surgery completed Debra Magallanes MA [facility] 06/09/2014 11:55:20 02/27/19 13 Orthopedic Surgery completed Debra Magallanes MA PA - [facility] 06/09/2014 11:55:20 02/27/19 11 Other completed Debra Magallanes MA [facility] 06/09/2014 11:55:20 02/27/19 11 Orthopedic Surgery completed Debra Magallanes MA [facility] 06/09/2014 11:55:20 02/27/19 08 Appendectomy completed Debra Magallanes MA [facility] 06/09/2014 11:55:20 02/27/19 05 Other completed Debra Magallanes MA [facility] 06/09/2014 11:55:20 Imaging Results None recorded. Procedure Notes None recorded. Medical Equipment None Reported. Allergies Allergen ID Allergen Name Allergen Category Reaction Reaction Severity Criticality Documentation Date Start Date Code Code System Note Provider Name and Address Organization Details Recorded Time 311257 vancomyci n medicatio n hives moderate Not available 12/05/2019 11166 RxNorm MIGUEL ANGEL Blackmon, [place] - [facility] 0 12:24:26 912212 Betadine medicatio n rash mild Not available 12/05/2019 41798 0 RxNorm MIGUEL ANGEL Blackmon, [place] - [facility] 0 12:24:58 011376 lisinopri l medicatio n cough mild Not available 12/05/2019 25231 RxNorm MIGUEL ANGEL Blackmon [facility] 0 12:25:17 Medications Name Sig Start Date [...] Available Not Available Not Available amoxicillin 875 mg-potcristianiu m clavulanate 125 mg tablet TAKE 1 [...] Updated DateTime 4 160.02 cm 37.4 kg/m2 24466.4 2 g 98.5 [degF] 98 % 98 % 100 /min 136 mm[Hg] 70 mm[Hg] Elayne Fernandez MA PA - [facility] 4 09:16:39 Date Recorded Body height Body mass index (BMI) Body weight Heart rate Body temperature Oxygen saturation Oxygen saturation in Arterial blood by Pulse oximetry Systolic blood pressure Diastolic blood pressure Provider Name and Address Organization Details Last Updated DateTime 3 160.02 cm 40.1 kg/m2 524633. 28 g 84 /min 98.9 [degF] 94 % 94 % 116 mm[Hg] 70 mm[Hg] Pascale Beltran MA [facility] 3 08:44:28 Date Recorded Body height Body mass index (BMI) Body weight Heart rate Oxygen saturation Oxygen saturation in Arterial blood by Pulse oximetry Systolic blood pressure Diastolic blood pressure Provider Name and Address Organization Details Last Updated DateTime 3 160.02 cm 40.2 kg/m2 385325. 47 g 92 /min 94 % 94 % 128 mm[Hg] 70 mm[Hg] La Monterroso MA [facility] 3 14:37:58 Date Recorded Body height Body mass index (BMI) Body weight Systolic blood pressure Diastolic blood pressure Provider Name and Address Organization Details Last Updated DateTime 12/05/2019 160.02 cm 40.4 kg/m2 820980.0 6 g 120 mm[Hg] 68 mm[Hg] Pascale Sherwood MA [facility] 0 12:33:59 Date Recorded Body height Body mass index (BMI) Body weight Body temperature Oxygen saturation Oxygen saturation in Arterial blood by Pulse oximetry Heart rate Systolic blood pressure Diastolic blood pressure Provider Name and Address Organization Details Last Updated DateTime 3 160.02 cm 40.5 kg/m2 166890. 5 g 98.5 [degF] 95 % 95 % 83 /min 126 mm[Hg] 72 mm[Hg] Elayne Fernandez MA PA - [facility] 3 14:30:21 Social History Question Answer Notes LastModified by Organizat ion Details LastModified Time Tobacco Smoking Status Former Smoker 04/11/2019 pt states stopped smoking 1997 MIGUEL ANGEL Louie, [place] - [facility] 04/11/2019 15:28:20 Do You Have [...] Disorder N Colon Polyps N Heart Attack (PA) N Diabetes N Cardiomyopathy N Blood Transfusions [...] Influenza, split virus, quadrivalent, PF 8 completed Elayneciara Fern[place], [place] [facility] 12/09/2022 14:22:16 influenza, unspecified formulation 3 completed Elayneciara Fernandez [place] [facility] 12/09/2022 14:27:44 Influenza, split virus, quadrivalent, preservative 0 completed Pascale Sherwood [place] [facility] 01/20/2020 17:59:24 Past Encounters Encounter ID Performer Location Encounter Start Date Encounter Closed Date Diagnosis/Indication Diagnosis SNOMED-CT Code Diagnosis ICD10 Code Diagnosis Note [id number] MD Jagjit Penaloza ([facility]) [address] [place] [phone] 06/09/2014 10:41:57 06/09/2014 13:37:25 Gynecologic examination 53193466 Screening mammography 45287775 [id number] MD Jagjit Penaloza ([facility]) [address] [place] [phone] 06/05/2017 14:50:45 06/05/2017 16:13:49 Gynecologic examination 80928473 Z01.419 Z11.51 Screening mammography 24 728658 Z12.31 Exposure t o sexually transmissible disorder 346471443 Z20.2 [id number] MD Jagjit Penaloza ([facility]) [address] [place] [phone] 04/11/2019 14:49:28 04/15/2019 10:24:43 Screening mammography 73931811 Z12.31 Urinary tr act infectious disease 08457378 N39.0 Morbid obesity 236141851 Z68.41 Dysfunctio n of urinary bladder 46451021 R39.89 OAB vs stress/urg e incontinen ce Menopausal syndrome 1237 70683 N95.9 [id number] [facility] [address] [place] [id number] 12/05/2019 11:39:11 12/09/2019 12:25:36 Recurrent urinary tract infection 571300131 N39.0 Administra tion of influenza vaccine 13986725 Z23 Atrophic vaginitis 02635 000 N95.2 Exposure t o sexually transmissible disorder 097305429 Z20.2 [id number] FRANCISCO J SERRANO (Adult Med) [address] [place] [id number] 05/31/2022 08:11:20 06/01/2022 09:41:02 Recurrent urinary tract infection 460011749 N39.0 Following with Urology for recurrent UTIs, [...] than UTI, starting tx today Menopause present 432894 006 N95.1 WEnt through menopause around age 52, denies major issues with hot flashes, vaginal dryness (however no longer sexually active), and mood changes- discussed menopause diagnosis- likely atrophic vaginitis causing her vaginal symptoms Screening for malignant neoplasm of breast 837591904 Z12.39 Last mammogram in 2021, ordered by PCP in [place]- Call [facility] to request records- Mammogram screening this year based on records Screening for malignant neoplasm of cervix 162070401 Z12.4 Last pap smear in 2017 and normal, pap smear prior to that was 05/2014 and also normal- no further pap smears needed at this time since prior pap smears normal over age of 65 Morbid obesity 849598211 E66.01 Advised decreased portion sizes, good food choices, limited eating out or fast food and eliminate soda and juice from diet. Advised physical activity daily and offered encouragem ent to continue with positive changes made so far. Depression screening 171 339571 Z13.31 PHQ 2/9 was negative in office today (0 out of 27) Increased frequency of urination [id number] R35.0 Patient reporting x3-4 episodes of incontinen ce daily. Admits to chronic urinary frequency, urgency, stress incontinen ce and urge incontinen ce. Wears diapers daily- vaginal swab completed- provided informatio n on mixed urinary incontinen ce- consider pelvic floor PT in the future Ex-smoker [id number] Z87.89 1 Prior history of smoking- keep up good work, continue to avoid Atrophic vaginitis [id number] 000 N95.2 Presenting today with vaginal pruritus, irritation , and dryness. Atropy seen on exam- Start estradiol 0.01 % three time a week for 30 days- f/u in 3 months to check for improvemen t Non-neoplastic nevus 195 [id number] I78.1 2 small skin nevi present on the left side of mons pubis, she is interested in getting them removed- plan for longer visit at next visit and will complete removal [id number] FRANCISCO J SERRANO (Adult Med) [address] [place] [address] 09/09/2022 14:06:24 09/12/2022 15:04:12 Non-neoplastic nevus [id number] I78.1 3 small skin nevi present on the left side of mons pubis, she is interested in getting them removed#1: larger lesion more superior on the mons pubis#2: two smaller lesions more inferior on mons pubis- tolerated procedure well and bleeding controlled with pressure and silver nitrate Atrophic vaginitis 38848 000 N95.2 Originally presented with vaginal pruritus, irritation , and dryness. Atrophy seen on exam- c/w estradiol 0.01 % three time a week- f/u in 3 months to check for improvemen t Menopause present 561685 006 N95.1 Went through menopause around age 52, denies major issues with hot flashes, vaginal dryness (however no longer sexually active), and mood changes- discussed menopause diagnosis- likely atrophic vaginitis causing her vaginal symptoms Screening for malignant neoplasm of breast [id number] Z12.39 Last mammogram in 2021, ordered by PCP in [facility]- Call [facility] to request records- Mammogram screening this year based on records Screening for malignant neoplasm of cervix [id number] Z12.4 Last pap smear in 2017 and normal, pap smear prior to that was 05/2014 and also normal- no further pap smears needed at this time since prior pap smears normal over age of 65 Ex-smoker 8258698 Z87.89 1 Prior history of smoking- keep up good work, continue to avoid Depression screening 171 299239 Z13.31 PHQ 2/9 was negative in office today (0 out of 27) Morbid obesity [id number] E66.01 Advised decreased portion sizes, good food choices, limited eating out or fast food and eliminate soda and juice from diet. Advised physical activity daily and offered encouragem ent to continue with positive changes made so far. Pain in throat [id number] R07.0 At risk for yeast infection 2/2 DM, erythemato us on exam. Screening for malignant neoplasm of colon 541880185 Z12.11 Notes colonoscop y completed at [facility] in the last few years, will request those records [id number] FRANCISCO J SERRANO (Adult Med) [facility] [address] [place] [address] 12/09/2022 14:13:43 12/09/2022 15:00:50 Atrophic vaginitis 84704566 N95.2 Originally presented with vaginal pruritus, irritation [...] or once weekly as tolerated Menopause present 482947 006 N95.1 Went through menopause around age 52, denies major issues with hot flashes, vaginal dryness (however no longer sexually active), and mood changes- discussed menopause diagnosis- likely atrophic vaginitis causing her vaginal symptoms- discuss DEXA at next visit Screening for malignant neoplasm of cervix 647568802 Z12.4 Last pap smear in 2018 and normal, pap smear prior to that was 05/2014 and also normal- no further pap smears needed at this time since prior pap smears normal over age of 65 Ex-smoker 3134102 Z87.89 1 Prior history of smoking- keep up good work, continue to avoid Morbid obesity 220594123 E66.01 Advised decreased portion sizes, good food choices, limited eating out or fast food and eliminate soda and juice from diet. Advised physical activity daily and offered encouragem ent to continue with positive changes made so far. Genital warts [id number] A63.0 Biopsy results from recent skin lesion removal revealed genital warts- discussed diagnosis with patient today, has not been sexually active for years and no additional lesions present in the past or currently [id number] Lesly Gan MD [facility] (Adult Med) [address] [place] [address] 04/17/2023 08:58:08 04/19/2023 11:56:47 Acute upper respiratory infection 57417671 J06.9 Gargle with warm salt water once [...] for cleaning the machine. Depression screening 171 207328 Z13.31 PHQ9- Negative (0 out of 27) Mental hea lth screening 614153567 Z13.39 GAD7- Negative (1 out of 21) Body mass index 30+ - obesity 334496886 Z68.37 BMI 37.4 Health Concerns Section Related Observation LastModified by Organization Detai ls LastModified Time None Recorded Concern Status LastModified by Organization Details LastModified Time None Recorded Advance Directives Directive N: Payers Insurance Date Sequence Insurance Name Policy Number Policy Puga Covered Member ID Puga Member ID Guarantor Name 04/14/2023 [place] [facility] Aleyda Harrisyton [id number] Aleyda Wilder 04/14/2023 2 [place] Aleyda Gaston Wilder [id number] Aleyda Wilder 04/14/2023 1 [place] [id number] Aleyda Dilia [id number] Aleyda Wilder 06/05/2017 1 [place] [id number] Drake Harrisyton [id number] Aleyda Wilder 05/31/2022 1 [employer] (MEDICARE REPLACEMENT /ADVANTAGE - PPO) [id number] Aleyda Dilia [id number] Aleyda Dilia Notes Date Note Type Note Provider Name and Address Organization Details Recorded Time 12/05/2019 text/html Vaginal/Vulvar ProblemReported bypatient.Associated Symptoms:no vaginal itching; no vaginal irritation; no vaginal pain; no vulvar itching/irritation; no vulvar swelling/erythema; no vulvar pain; no vulvar lesions; no pelvic pain; no dyspareunia; no dyruria; no fever; no abdominal pain 69 yo F presenting for vulvar itching x2-3 weeks. Her pediatric orthodontist discovered a UTI on routine UA and prescribed an antibiotic. She completed the course but the UTI persisted. The pediatric orthodontist then referred her to a urologist. The urologist prescribed Macrobid. She just completed the course of Macrobid for 2 weeks. Today on UA she still has a UTI, but her symptoms have resolved. Denies fever, chills, abnormal vaginal discharge, bleeding, dysuria, hematuria, N/V/D/C. Eduardo vaca, PA - [facility] 12/05/2019 16:25:15 05/31/2022 text/html Aleyda Dobbs is a 71 y/o female with PMHx of DM (last A1c 8.1%) c/b left great toe amputation, rheumatoid arthritis, Sjogren's syndrome, LEXII, hyperlipidemia, hypertension, hypothyroidism, and recurrent UTIs reporting to clinic for [facility] exam. Patient notes a history of recurrent UTIs with the last being in the beginning of April. She does follow a Urologist at [facility]? and was prescribed Keflex. Patient feels like the symptoms have not resolved as she continues to have pruritus and vaginal irritation. Denies any dysuria and hematuria. Last mammogram was in 2021 in [place] by her PCP. Last pap smear in 2014 and 2017 with no concerning findings. Denies vaginal discharge, abnormal vaginal bleeding, breast pain, and nipple discharge. FRANCISCO J SERRANO Attn: [address] [place], [address], [facility] - [facility] 05/31/2022 14:39:58 09/09/2022 text/html 72yo F presentin g for skin lesion removal, discussed at previous visit. Also complaining of chronic dry throat that has felt mildly painful. No recent illness or current viral symptoms. History of DM and poor fitting dentures. No other complaints. FRANCISCO J SERRANO Attn: [employer], [place], [address], [facility] 09/09/2022 16:30:24 12/09/2022 text/html 72yo F presentin [...] hematuria. FRANCISCO J SERRANO Attn: [address] [facility], [place], [address], [facility] - [facility] 12/11/2022 12:38:13 04/17/2023 text/html 72-year-old fema le [...] N/V. NICHOLAS AVILES PA-C Attn: [address] [facility], [place], [address], [facility] 04/17/2023 09:38:38 OBGyn Episode No OBEpisode recorded.
--- OUTSIDE RECORDS SUMMARY | 2024-08-14 12:19 | XMS_ITS | Encounter Summary ---
Author Organization [facility] Address 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 Gender Identity Not on file Sexual Orientation Not on file documented as of this encounter Plan of Treatment Upcoming Encounters Date Type Department Care Team (Late st Contact Info) Description 11/20/2024 9:00 AM CDT Office Visit [facility] - [place] [address] [place] [address] Ray Richards MD [address] [place] [address] documented as of this encounter Visit Diagnoses Diagnosis Unspecified hearing loss documented in this encounter Care Teams Private Branch Exchange Service Adviser Relationship Specialty Start Date End Date Charles Armendariz DO [address] [place] [address] PCP - General Internal Medicine 11/04/22 documented as of this encounter
--- OUTSIDE RECORDS SUMMARY | 2024-08-14 12:19 | XMS_ITS | Data Portability ---
Author Organization [facility] [employer], Main Office Address [address] [place] [address] Care Team Providers Care Product Engineering Manager Name Role Phone GILBERTO ARMENDARIZ Primary Care Provider [phone] GILBERTO ARMENDARIZ Referring Provider Assessment Encounter Date Assessment Date Assessment LastModified by Organization Details LastModified Time 11/02/2023 11/02/2023 Assessment: Nicotine smoke: 1 ppd 2779-2257 = 18 pack years Dyspnea Mild OSAHS, AHI = 13 PLMD CKD with anemia Hypomagnesemia Plan: The following were reviewed and explained to the patient: [facility] home sleep study on 10/08/15, AHI = 13 [facility] titration sleep study on 11/04/15, sleep onset [...] done as follows: Respiratory allergen panel for [facility] Serum IgE Serum total IgG, IgG1, IgG2, IgG3, IgG4 Luclj-2-edldkfidx in phenotype and level TB stimulated gamma [...] for now. We will try to obtain [facility] sleep study 2023. Patient will bring KOKI unit to [facility] for repair. PAP compliance downloaded and interpreted x 20 minutes. Data reviewed and explained to the patient. Average apnea/hypopnea index (AHI) is 1.4. Patient used PAP > 4 hours 89% of the time. PAP is set at 12 cmH2O. PAP will remain at 12 cmH2O. Keep ramp off. Keep humidifier at level 4. 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 Oxygen supplementation: none Patient is benefiting from [...] carrier. Patient will setup an appointment with [facility] for supplies and pressure adjustments. A [...] 01/17/2024 01/17/2024 Assessment: Nicotine smoke: 1 ppd 5279-0735 = 18 pack yearsDyspnea Mild OSAHS, AHI = 13 PLMD CKD with anemia Hypomagnesemia Mild persistent asthma Elevated BNP Plan: The following were reviewed and explained to the patient: [facility] home sleep study 10/08/15, AHI = 13 [facility] titration sleep study 11/04/15, sleep onset = 6.5 minutes, REM onset = 101.5 minutes, autoCPAP 5-15 cmH2O, PLMI = 7 [facility] titration sleep study 02/11/23 sleep onset [...] for now. We will try to obtain [facility] sleep study and echocardiogram from 2023. Patient will bring KOKI unit to [facility] for repair. PAP is set at 12 cmH2O. PAP will remain at 12 cmH2O. Keep ramp off. Keep humidifier at level 4. 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 Oxygen supplementation: none Patient is benefiting from [...] carrier. Patient will setup an appointment with [facility] for supplies and pressure adjustments. A [...] This note is dictated and transcribed by [employer]. Food Safety Manager variances may occur. Despite proofreading, typographical errors may occur. Occasional wrong-word or 'alqnc-h-kkna' substitutions may have occurred due to the inherent limitations of voice recording. Read the chart carefully and recognize, using context, where substitutions have occurred. Not available 03/21/2024 14:50:26 05/02/2024 05/02/2024 Assessment: Nicotine smoke: 1 ppd 5333-5284 = 18 pack yearsDyspnea Mild OSAHS, AHI = 13 PLMD CKD with anemia Hypomagnesemia Mild persistent asthma Elevated BNP Plan: The following were reviewed and explained to the patient: [facility] home sleep study 10/08/15, AHI = 13 [facility] titration sleep study 11/04/15, sleep onset = 6.5 minutes, REM onset = 101.5 minutes, autoCPAP 5-15 cmH2O, PLMI = 7 [facility] titration sleep study 02/11/23 sleep onset [...] for now. We will try to obtain [facility] sleep study and echocardiogram from 2023. Patient will bring KOKI unit to [facility] for repair. PAP is set at 12 cmH2O. PAP will remain at 12 [address]H2O. Keep ramp off. Keep humidifier at level 4. 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 Oxygen supplementation: none Patient is benefiting from [...] carrier. Patient will setup an appointment with [facility] for supplies and pressure adjustments. A [...] further management. Follow-up: 9 months, January 2025 [facility] Not available 05/02/2024 11:40:53 06/20/2024 06/20/2024 This note is dictated and transcribed by [employer]. Food Safety Manager variances may occur. Despite proofreading, typographical errors may occur. Occasional wrong-word or 'oljuq-h-jodv' substitutions may have occurred due to the [...] magnesium , serum or plasma 2024 025 [email or web address] [facility] (Lab), [address] [place], [address], 05/02/2024 11:42:26 magnesium , serum or plasma 2023 025 [facility] (Lab), [address] [place], [address], 03/18/2024 17:29:00 alpha-1-a ntitrypsi n (aat) phenotype , serum [address] (Lab), [address] [place], [address], 02/08/2024 14:04:07 BNP (B-type natriuret ic peptide), serum or plasma 2023 024 [facility] (Lab), [address] [place], [address], 11/02/2023 18:38:32 ige, total, serum 2023 024 [facility] (Lab), [address] [place], [address], 11/13/2023 13:28:28 tb (M tuberculo sis), ifn-gamma eliane, blood [address] (Lab), [address] [place], [address], 02/08/2024 14:04:07 eosinophi l count, manual, blood (OBS) [address] (Lab), [address] [place], [address], 02/08/2024 14:04:[address] s 1+2+3+4, serum [address] (Lab), [address] [place], [address], 02/08/2024 14:04:07 respirato ry allergen panel, [facility] A, serum 2023 024 [email or web address] 2 [facility] (Lab), [address] [place], [address], 02/08/2024 14:04:07 respirato ry allergen panel - [facility] b 2023 024 [email or web address] 2 [facility] (Lab), [address] [place], [address], 02/08/2024 14:04:08 Referral None recorded. Procedures None recorded. Surgeries None recorded. Imaging None recorded. Medication Orders magnesium oxide 400 mg (241.3 mg magnesium ) tablet 2024 025 [id number], [address], [place], [id number], 05/02/2024 11:42:36 Advair Diskus 100 mcg-50 mcg/dose powder for inhalatio n 2024 025 [facility] #06954, [address], [place], [id number], 05/02/2024 11:42:39 albuterol sulfate HFA 90 mcg/actua tion aerosol inhaler 2024 025 [facility] #09819, [address], [place], [id number], 05/02/2024 11:42:34 magnesium oxide 400 mg (241.3 mg magnesium ) tablet 2023 024 [facility] #50786, [address], [place], [id number], 01/17/2024 12:00:06 Advair Diskus 100 mcg-50 mcg/dose powder for inhalatio n 2023 024 [facility] #98191, [address], [place], [id number], 01/17/2024 12:00:07 albuterol sulfate HFA 90 mcg/actua tion aerosol inhaler 2023 024 [facility] #41242, [address], [place], [id number], 01/17/2024 12:00:06 magnesium oxide 400 mg (241.3 mg magnesium ) tablet 2023 [facility] #27563, [address], [place], [id number], 11/02/2023 14:53:12 Patient TargetsNo targets recorded. Patient Instructions Encounter Date Encounter Id Patient Instructions Last Modified By Organization Details Last Modified Time 11/02/2023 [id number] methacholine challenge* - Please call patient to schedule. [email or web address] Not available 12/04/2023 17:52:47 05/02/2024 [id number] complete PFT w/ post bronchodilator spirometry* Not available 05/02/2024 11:42:26 Reason for Referral None Reported. Results Created Date Observation Date Name Description Value Unit Range Abnormal Flag Note LastModifiedBy Organization Detail LastModifiedTime 11/03/19 24 11/02/2023 compl ete PFT w/ post cox monett hodil ator lottie metry * No observ ation record ed. [facility] ([facility]) [address] [place], [address], 11/03/2023 12:49:10 01/17/20 24 01/16/2024 metha choli ne chall enge* No observ ation record ed. [facility] ([facility]) [address] [place], [address], 01/17/2024 11:11:40 01/17/20 24 02/11/2023 polys omnog [...] of amputatio n of left great toe [id number] 733903 Active 2022 Not Available [facility] 3 07:32:08 Hammer toe 175917882 Active 2022 Not Available [facility] 3 07:32:08 Chronic depressio n 646990234 Active Not Available [facility] 3 07:32:08 Partial thickness rotator cuff tear 059614048 Active Not Available [facility] 3 07:32:09 Gastroeso phageal reflux disease 373293770 Active Not Available [facility] 3 07:32:09 Anemia 779103702 Active Not Available [facility] 3 07:32:09 Osteoarth ritis 125997887 Active Not Available [facility] 3 07:32:10 Hypothyro idism 69551311 Active Not Available [facility] 3 07:32:11 Obesity 272347138 Active Not Available [facility] 3 07:32:11 Bunion 237424919 Active 2022 Not Available [facility] 3 07:32:11 Diabetic periphera l neuropath y 067095183 Active 2022 Not Available [facility] 3 07:32:11 Anxiety 24720292 Active Not Available [facility] 3 07:32:12 Hyperlipi demia 72914930 Active Not Available [facility] 3 07:32:12 Wheezing 86854595 Completed Not Available [facility] 3 07:32:13 Essential hypertens ion 93288066 Active Not Available [facility] 3 07:32:13 Long-term current use of anticoagu lant 405944760 Active 2021 Not Available [facility] 3 07:32:14 Obstructi ve sleep apnea syndrome 38627838 Active Not Available [facility] 3 07:32:14 Sj gren's syndrome 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 Active Not Available [facility] 3 07:32:15 Gout 89014349 Active Not Available [facility] 3 07:32:15 Primary fibromyal steven syndrome 32709091 Active Not Available [facility] 3 07:32:16 Flexion contractu re of toe joint 567160237 Active 2022 Clifton Saravia DPM [address], [address], [place], [address] , [facility] 3 14:41:16 Sensorine ural hearing loss 20495946 Active 2022 Antoine Tanner MD [address], [address], [place], [address] , [facility] 3 14:29:40 Acquired hallux limitus of right great toe 88243972571 04858 Active 2022 Clifton Saravia DPM [address], [address], [place], [address] , [employer] [facility] 3 16:39:13 Periodic limb movement disorder 220059150 Active 2023 Devin Benitez MD [address], [address], [place], [address] , [facility] 4 11:48:29 Hypomagne semia 197736229 Active 2023 Devin Benitez MD [address], [address], [place], [address] , [employer] [facility] 4 11:51:11 Mild persisten t asthma 392138734 Active 2023 Devin Benitez MD [address], [address], [place], [address] , [facility] 4 11:41:36 Foot ulcer due to type 2 diabetes mellitus 54453907404 00 Active 2024 Clifton Saravia DPM [address], [address], [place], [address] , [facility] 5 14:50:35 Hammer toe 781365068 Active 2024 Clifton Saravia DPM [address], [place], [address] , [facility] 5 14:51:19 History of amputatio n of right great toe 89125400905 239183 Active 2024 Clifton Saravia DPM [address], [address], [place], [address] , [facility] 5 14:51:40 Diabetic on insulin 700828402 Active 2024 Clifton Saravia DPM [address], [place], [address] , [facility] 5 10:05:12 Dystrophi a unguium 08492492 Active 2024 Clifton Saravia DPM [address], [place], [address] , [facility] 5 10:05:20 Notes:Medical History: Anxie ty/Depression Sensorineural [...] 2023 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 Procedures Surgical History Date Name Laterality Status Provider Name and Address Organization Details Recorded Time 06/21/19 25 Nail Debridement completed LUCIA [address], [place], [address], [employer] 06/24/2024 10:04:29 03/21/19 25 Nail Debridement completed Clifton Saravia DPM [address], [place], [address], [employer] [facility] 03/21/2024 14:48:29 10/23/19 24 Nail Debridement completed LUCIA [address], [place], [address], [employer] [facility] 10/23/2023 11:58:36 07/20/19 24 Nail Debridement completed LUCIA [address], [place], [address], [facility] 07/20/2023 15:16:22 06/06/19 24 Incision & Drainage Procedure completed Cameron Dan DPM [address], [address], [place], [address], [employer] [facility] 06/06/2023 10:43:07 04/10/19 24 Nail Debridement completed LUCIA [address], [place], [address], [employer] [facility] 04/17/2023 10:52:28 12/23/19 23 Nail Debridement completed LUCIA [address], [place], [address], [employer] 12/26/2022 08:11:04 12/23/19 23 Joint Injection-Podia try 6217 completed Clifton Saravia DPM [address], [place], [address], [facility] [employer] [facility] 12/26/2022 08:10:33 09/23/19 23 Nail Debridement completed Clifton Saravia DPM [address], [place], [address], [facility] [employer] [facility] [employer] [facility] 09/22/2022 15:10:23 06/24/19 23 Nail Debridement completed Clifton Saravia DPM [address], [place], [address], [facility] [employer] [facility] [employer] [facility] 06/23/2022 14:40:20 procedure on elbow completed Not Available [facility] 04/27/2022 07:27:46 procedure on hand completed Not Available [facility] 04/27/2022 07:27:46 Imaging Results None recorded. Procedure Notes None recorded. Medical Equipment None Reported. Allergies Allergen ID Allergen Name Allergen Category Reaction Reaction Severity Criticality Documentation Date Start Date Code Code System Note Provider Name and Address Organization Details Recorded Time 34350 Vibramyci n medicatio n other Not available Not available 04/27/202290352 5 RxNorm Not Available [facility] 3 07:37:15 06173 vancomyci n medicatio n hives Not available Not available 04/27/2022 58212 RxNorm Not Available [facility] 3 07:37:15 76913 valsartan medicatio n other Not available Not available 04/27/2022 14925 RxNorm Not Available [facility] 3 07:37:15 44099 lisinopri l medicatio n cough Not available Not available 04/27/2022 23354 RxNorm Not Available [facility] 3 07:37:15 64493 Betadine medicatio n rash Not available Not available 04/27/202283333 0 RxNorm Not Available [facility] 3 07:37:15 Medications Name Sig Start Date [...] Available Not Available No t Available levofloxa cadnice 500 mg tablet TAKE 1 TABLET BY [...] e Short Pen Needle 31 gauge x /16 active Not Available Not Available Not Available [...] Last Updated DateTime 160.02 cm 38.1 kg/m2 39993.3 6 g 87 /min 14 /min 98 % 98 % 106 mm[Hg] 47 mm[Hg] Sun Millard [place] [employer] [facility] [employer] 14:28:06 Date Recorded Heart rate Respiratory rate Provider N araseli and Address Organization Details Last Updated DateTime 05/02/2024 83 /min 15 /min Devin Benitez MD [address] [facility] [facility] [address], [place], [address], [place] [employer] [facility] [employer] 05/02/2024 11:43:19 Date Recorded Body height Body mass index (BMI) Body weight Body temperature Heart rate Oxygen saturation Oxygen saturation in Arterial blood by Pulse oximetry Systolic blood pressure Diastolic blood pressure Provider Name and Address Organization Details Last Updated DateTime 5 160.02 cm 36.7 kg/m2 43698.6 2 g 98.1 [degF] 83 /min 97 % 97 % 108 mm[Hg] 64 mm[Hg] Valentina Payne MA [facility] [employer] 5 11:25:17 Date Recorded Body height Body mass index (BMI) Body weight Provider Name and Address Organization Details Last Updated DateTime 06/20/2024 160.02 cm 36.7 kg/m2 40073.62 g Sun Millard [facility] [employer] 06/20/2024 14:23:30 Date Recorded Oxygen saturation Oxygen saturation in Arterial blood by Pulse oximetry Heart rate Respiratory rate Provider Name and Address Organization Details Last Updated DateTime 11/02/2023 93 % 93 % 84 /min 15 /min Devin Benitez MD [address], [address], [place], [address], [facility] [employer] 4 15:00:54 Date Recorded Body height Body mass index (BMI) Body weight Heart rate Body temperature Systolic blood pressure Diastolic blood pressure Provider Name and Address Organization Details Last Updated DateTime 4 160.02 cm 38.1 kg/m2 56276.3 6 g 84 /min 98.1 [degF] 122 mm[Hg] 70 mm[Hg] Kenton Colón CMA [facility] [employer] 4 11:16:29 Date Recorded Body temperature Heart rate Oxygen saturation Oxygen saturation in Arterial blood by Pulse oximetry Heart rate Respiratory rate Provider Name and Address Organization Details Last Updated DateTime 4 99.8 [degF] 99 /min 95 % 95 % 99 /min 15 /min Devin Benitez MD [address], [address], [place], [address] [place] [address] [email or web address] [facility] 4 12:03:46 Date Recorded Body height Body mass index (BMI) Body weight Systolic blood pressure Diastolic blood pressure Provider Name and Address Organization Details Last Updated DateTime 01/17/2024 160.02 cm 38.1 kg/m2 48873.36 g 128 mm[Hg] 66 mm[Hg] Valentina Payne MA [facility] [employer] 11:26:17 Social History Question Answer Notes LastModified by Organizat ion Details LastModified Time Tobacco Smoking Status Former Smoker [place] [employer] [facility] [employer] [facility] 04/10/2023 15:54:00 What Is Your Level Of Caffeine Consumption? Moderate [id number] Information not available 04/27/2022 In The 14 [...] is your level of alcohol consumption? Occasional [id number] Information not available 04/27/2022 Have you been exposed to chemicals or toxins? not that aware of Information not available 01/17/2024 What is your occupation? n/a Information not available 04/10/2023 Mental Status Question Answer Note LastModified by Organization D etails LastModified Time Do you feel stressed (tense, restless, nervous, or anxious, or unable to sleep at night)? [id number] Information not available 01/17/2024 Family History Relationship [...] high-dose, trivalent, PF 3 completed Not Available [facility] 04/27/2022 07:37:07 Influenza, high-dose, trivalent, PF 1 completed Not Available [facility] 04/27/2022 07:37:07 Influenza, high-dose, trivalent, PF 0 completed Not Available [facility] 04/27/2022 07:37:07 pneumococcal polysaccharide PPV23 0 completed Not Available [facility] 04/27/2022 07:37:07 COVID-19, mRNA, LNP-S, PF, 30 mcg/0.3 mL dose 1 completed Not Available [facility] 04/27/2022 07:37:08 COVID-19, mRNA, LNP-S, PF, 30 mcg/0.3 mL dose 1 completed Not Available [facility] 04/27/2022 07:37:08 Td (adult) 7 completed Not Available [facility] 04/27/2022 07:37:08 Past Encounters Encounter ID Performer Location Encounter Start Date Encounter Closed Date Diagnosis/Indication Diagnosis SNOMED-CT Code Diagnosis ICD10 Code Diagnosis Note [id number] [facility] [place] [address] [place] [address] 01/27/2021 00:00:00 01/27/2021 12:58:10 [id number] [facility] [place] [address] [place] [address] 04/15/2021 00:00:00 04/15/2021 14:21:47 [id number] [facility] _ATHENA_M IGRATION_ DEFAULT_1 _1 , 05/07/2021 00:00:00 05/10/2021 09:54:36 [id number] [facility] [place] [address] [facility] [place] [address] 07/09/2021 00:00:00 07/23/2021 17:10:07 [id number] [facility] _ATHENA_ IGRATION_ DEFAULT_1 _1 , 10/22/2021 00:00:00 10/26/2021 10:34:40 [id number] Clifton Saravia DPM [facility] [place] [address] [place] [address] 03/14/2022 00:00:00 03/14/2022 12:18:33 [id number] Clifton Saravia DPM S_[facility] [place] [address] [place] [address] 06/23/2022 13:45:11 06/23/2022 14:45:21 Diabetic peripheral neuropathy 991762435 E11.42 Patient educated on neuropathy , diabetes, diabetic diet, and daily foot exams. Patient is to check feet daily for new wounds, blisters, redness to prevent infection and ulceration s to the feet. Patient will return to clinic in 3 months for diabetic foot workup. History of amputation of left great toe [id number] 8761551 Z89.412 secondary to history of toe amputation to the left foot with existing neuropathy the and plantar flexion contractur e of her toes patient would benefit greatly from diabetic shoes and insoles to prevent recurrent wounds of her feet. Flexion co ntracture of toe joint 079487316 M21.279 bilateral feetoffloa [employer] diabetic shoes Dystrophia unguium 79688 009 L60.3 Nails 1 through 9 were debrided with sharp mechanical debridemen t without incident. Nails were debrided and greater than 50% length and thickness where needed. Obesity 428082760 E66.9 recommend weight loss facilitate with PCP Dog bite - wound 9503648 05 W54.0XXA dorsal right footcontin ue daily wound careif signs of infection present seek medical attention immediatel yFollow-up in 1 week [id number] Clifton Saravia DPM [facility] [place] [address] [facility] [address] [place] [address] 07/05/2022 09:51:18 07/05/2022 10:44:16 Dog bite - wound 037562220 W54.0XXA dorsal right footresolv ed paincontin ue daily wound careif signs of infection present seek medical attention immediatel yFollow-up in 1 week Blister of toe without infection 05190309 S90.424D right 5th toehealedc ontinue supportive shoe gearFollow -up as needed [id number] Clifton Saravia DPM [facility] [place] [address] [place] [address] 09/22/2022 14:45:42 09/22/2022 15:28:11 Diabetic peripheral neuropathy 458746630 E11.42 Patient educated on neuropathy , diabetes, diabetic diet, and daily foot exams. Patient is to check feet daily for new wounds, blisters, redness to prevent infection and ulceration s to the feet. Patient will return to clinic in 3 months for diabetic foot workup.has not obtained diabetic shoes and inserts- we did check and have sent all for work to [facility]. Dystrophia unguium 53406 009 L60.3 Nails 1 through 9 were debrided with sharp mechanical debridemen t without incident. Nails were debrided and greater than 50% length and thickness where needed. History of amputation of left great toe 5614221579 4096176 Z89.412 secondary to history of toe amputation to the left foot with existing neuropathy the and plantar flexion contractur e of her toes patient would benefit greatly from diabetic shoes and insoles to prevent recurrent wounds of her feet. [id number] Antoine Tanner MD [facility] [place] [address] [place] [address] 12/01/2022 14:02:01 12/01/2022 14:30:56 Sensorineural hearing loss 92499723 H90.5 [id number] Clifton Saravia DPM [facility] [facility] [place] [address] [place] [address] 12/22/2022 15:40:56 12/26/2022 09:46:24 Acquired hallux limitus of right great toe [id number] M20.5X1 injection 4 mg dexamethas one phosphate right great toe metatarsop halangeal joint, 12/22/2022 Diabetes mellitus 020382 09 E11.40 continue PCP recommenda tion Diabetic p eripheral neuropathy [id number] E11.42 Patient educated on neuropathy , diabetes, diabetic diet, and daily foot exams. Patient is to check feet daily for new wounds, blisters, redness to prevent infection and ulceration s to the feet. Patient will return to clinic in 3 months for diabetic foot workup.has not obtained diabetic shoes and inserts- we did check and have sent all for work to [employer]. Dystrophia unguium 42782 009 L60.3 Nails 1 through 9 were debrided with sharp mechanical debridemen t without incident. Nails were debrided and greater than 50% length and thickness where needed. History of amputation of left great toe [id number] 2330429 Z89.412 secondary to history of toe amputation to the left foot with existing neuropathy the and plantar flexion contractur e of her toes patient would benefit greatly from diabetic shoes and insoles to prevent recurrent wounds of her feet. [id number] Clifton Saravia DPM [facility] [place] [address] [place] [address] 04/10/2023 15:52:59 04/17/2023 11:12:34 Diabetes mellitus 17396800 E11.40 continue PCP recommenda tion History of amputation of left great toe [id number] 7238390 Z89.412 secondary to history of toe amputation to the left foot with existing neuropathy the and plantar flexion contractur e of her toes patient would benefit greatly from diabetic shoes and insoles to prevent recurrent wounds of her feet. Dystrophia unguium 48591 009 L60.3 Nails 1 through 9 were debrided with sharp mechanical debridemen t without incident. Nails were debrided and greater than 50% length and thickness where needed. [id number] Cameron Dan DPM [facility] [place] [address] [address] 06/06/2023 09:50:06 06/06/2023 10:49:15 Abscess of skin and/or subcutaneous tissue 68797512 L02.91 [id number] Cameron Dan DPM [facility] [place] [address] [address] 06/12/2023 09:52:01 06/12/2023 11:19:21 [id number] Clifton Saravia DPM [facility] [place] [address] [facility] [address] [place] [address] 07/20/2023 14:23:03 07/21/2023 10:41:03 Skin eschar 120536865 R23.4 left 2nd toekeep clean and dryallow to healif not healed in 1 week return office Blood blister 439200158 T14.8XXA left 3rd toeas above Dystrophia unguium 34177 009 L60.3 Nails 1 through 9 were debrided with sharp mechanical debridemen t without incident. Nails were debrided and greater than 50% length and thickness where needed. Diabetes mellitus 182206 09 E11.40 continue PCP recommenda tion [id number] Devin Benitez MD [facility] [place] [address] [place] [address] 07/26/2023 10:46:36 07/27/2023 08:40:44 Dyspnea on exertion 98960743 R06.09 R05.3 D89.9 T78.40XA Obstructiv e sleep apnea syndrome 17491120 G47.33 Periodic l imb movement disorder 997861679 G47.61 D50.8 E83.42 [id number] Clifton Saravia DPM [facility] [place] [address] [place] [address] 08/24/2023 11:38:20 08/24/2023 14:23:44 Bunion 955941494 M21.619 recommend offloading supportive shoe gear wide soft toe box shoes recommende dIf continues to be problemati c will require surgery currently denies surgery Blood blister 991274949 T14.8XXA medial great toe rightofflo adingkeep the area clean and dry dailyFollo w-up in 1-2 weeks [id number] Clifton Saravia DPM [facility] [place] [address] [place] [address] 10/23/2023 11:01:33 10/23/2023 16:47:22 Open wound of right great toe 7961953539 4046989 S91.101A right great toe- full-thick ness secondary to callusing and skin fissurecon tinue offloading Rx- extra-dept h, neoprene style toe box diabetic shoesmonit or for infection at present seek medical attention immediatel ySeeking wound care with [facility] Open wound of toe of left foot [id number] 1505831 S91.105A left 2nd- full-thick ness, fibrotic wound bed no acute signs of infectionc ontinue offloading wound care dailyseeki ng wound care with [facility] History of amputation of left great toe 8877833631 8351573 Z89.412 secondary to history of toe amputation to the left foot with existing neuropathy the and plantar flexion contractur e of her toes patient would benefit greatly from diabetic shoes and insoles to prevent recurrent wounds of her feet. Diabetic p eripheral neuropathy 200884107 E11.42 Rx diabetic shoe gear- neoprene style toe box shoe, extra-dept h Dystrophia unguium 55776 009 L60.3 Nails 1 through 9 were debrided with sharp mechanical debridemen t without incident. Nails were debrided and greater than 50% length and thickness where needed. [id number] Devin Benitez MD [address] [address] 11/02/2023 10:56:19 11/03/2023 10:45:37 Dyspnea on exertion 09485083 R06.09 R05.3 D89.9 T78.40XA Obstructiv e sleep apnea syndrome 40542649 G47.33 Periodic l imb movement disorder 847847782 G47.61 D50.8 E83.42 Hypomagnesemia 488070975 E83.42 [id number] Devin Benitez MD [address] [address] 01/17/2024 10:40:32 02/26/2024 11:51:28 Obstructive sleep apnea syndrome 68877733 G47.33 Periodic l imb movement disorder 807822936 G47.61 Hypomagnesemia 159880363 E83.42 Mild persi stent asthma 920944850 J45.30 [id number] Clifton Saravia DPM [facility] [place] [address] [facility] [address] [place] [address] 03/21/2024 14:22:44 03/22/2024 13:46:52 Foot ulcer due to type 2 diabetes mellitus 5333796644 100 E11.621 right 2nd toedaily wound careFollow -up week if not healed History of amputation of right great toe 6683069597 8527010 Z89.411 right great toe well healed- performed by [facility] Dystrophia unguium 75918 009 L60.3 Nails 1 through 8 were debrided with sharp mechanical debridemen t without incident. Nails were debrided and greater than 50% length and thickness where needed. Hammer toe 164906493 M20 .42 left 2nd toeoffload ing dailysilic one toe sleeve recommende drecommend diabetic shoe gear and insoles with extra-dept h shoes [id number] Devin Benitez MD [address] [place] [address] 05/02/2024 11:09:11 05/02/2024 11:58:12 Obstructive sleep apnea syndrome 72886959 G47.33 Periodic l imb movement disorder 017341111 G47.61 Hypomagnesemia 313317341 E83.42 Mild persi stent asthma 317182818 J45.30 [id number] Clifton Saravia DPM [facility] [place] [address] [place] [address] 06/20/2024 14:10:43 06/25/2024 12:46:48 Diabetic peripheral neuropathy 969456540 E11.42 Rx diabetic shoe gear- neoprene style toe box shoe, extra-dept hcheck feet daily for wounds infection at present seek medical attention immediatel yFollow-up in 3 months Diabetic on insulin 1707 34612 Z79.4 Dystrophia unguium 38048 009 L60.3 Nails 1 through 8 were debrided with sharp mechanical debridemen t without incident. Nails were debrided and greater than 50% length and thickness where needed. Health Concerns Section Related Observation LastModified by Organization Detai ls LastModified Time None Recorded Concern Status LastModified by Organization Details LastModified Time None Recorded Advance Directives Directive None Recorded Payers Insurance Date Sequence Insurance Name Policy Number Policy Puga Covered Member ID Puga Member ID Guarantor Name 02/29/2024 4 [facility] (PPO) Aleyda Harrisyton [id number] Aleyda Matute Dilia 06/17/2024 1 [facility] - OPEN ACCESS III (PPO) [id number] Aleyda Matute [place] [id number] Aleyda Matute Dilia 06/17/2024 2 [place] (MEDICARE) Aleyda Melissaon [id number] Aleyda Matute Dilia 06/20/2024 3 [employer] (PPO) [id number] Drake Harrisyton [id number] Aleyda Juju Dilia Notes Date Note Type Note Provider [...] doing laundryAlleviating factors: rest [employer] [place] ([facility]) Dyspnea Scale - Grade 2Grade 0 [...] per weekAdvair diskus 500/50 1 inhalation BID 2703-3037 Other symptoms:Drooling: noDysarthria: noNeck pain: noOdynophagia: noDysphagia: noWeak mastication: noFacial weakness: noNasal speech: noProtruding tongue: noProductive cough: noWheezing: yesChest tightness: yesOrthopnea: noFrequent throat clearing or swallowing: noPalpitations: noHeartburn: yesEdema: yes Environmental exposures:Nicotine smoke: 1 ppd 5945-1187 = 18 pack yearsPaint: noDye: noDust mites: yesMold: noDamp basement: noWood burning stove: noAnimal dander: dogCockroaches: noPollen: yesArsenic: noAsbestos: noBeryllium: noCadmium: noChromium: noCoal smoke: noDiesel fumes: noNickel: noSilica: noSoot: no During the [facility] home sleep study on 10/08/15, AHI = 13.During the [facility] titration sleep study on 11/04/15, sleep onset [...] slight chance of dozing. Devin Benitez MD [address] [place] [address], [address], [place] [facility] 11/02/2023 15:02:56 01/17/2024 text/html Primary care/Ref erring [...] doing laundryAlleviating factors: rest [employer] [place] (mMRC) Dyspnea Scale - Grade 2Grade 0 [...] this everydayAdvair diskus 500/50 1 inhalation BID 5043-9200 Other symptoms:Drooling: noDysarthria: noNeck pain: noOdynophagia: noDysphagia: noWeak mastication: noFacial weakness: noNasal speech: noProtruding tongue: noProductive cough: noWheezing: yesChest tightness: yesOrthopnea: noFrequent throat clearing or swallowing: noPalpitations: noHeartburn: yesEdema: yes Environmental exposures:Nicotine smoke: 1 ppd 5091-6890 = 18 pack yearsPaint: noDye: noDust mites: yesMold: noDamp basement: noWood burning stove: noAnimal dander: dogCockroaches: noPollen: yesArsenic: noAsbestos: noBeryllium: noCadmium: noChromium: noCoal smoke: noDiesel fumes: noNickel: noSilica: noSoot: no During the [facility] home sleep study on 10/08/15, AHI = 13.During the [facility] titration sleep study on 11/04/15, sleep onset [...] chance of dozing. Devin Benitez MD [address] [facility] [facility] [address], [place], [address], [place] 01/17/2024 14:08:16 03/21/2024 text/html . Patient is a 73-year-old female diabetic shoe returns the office for follow-up on diabetic foot care. Patient states overall she is doing better. Patient states that she developed worsening wound to the great toe over the holiday she states that she was admitted to [facility] and underwent a amputation of the [...] complaints. Clifton Saravia DPM [address] [facility] [address], [place], [address], [facility] 03/21/2024 14:52:17 05/02/2024 text/html Primary care/Ref erring [...] doing laundryAlleviating factors: rest [employer] [place] (mMRC) Dyspnea Scale - Grade 2Grade 0 [...] this everydayAdvair diskus 500/50 1 inhalation BID 1154-3253 Other symptoms:Drooling: noDysarthria: noNeck pain: noOdynophagia: noDysphagia: noWeak mastication: noFacial weakness: noNasal speech: noProtruding tongue: noProductive cough: noWheezing: yesChest tightness: yesOrthopnea: noFrequent throat clearing or swallowing: noPalpitations: noHeartburn: yesEdema: yes Environmental exposures:Nicotine smoke: 1 ppd 4408-0675 = 18 pack yearsPaint: noDye: noDust mites: yesMold: noDamp basement: noWood burning stove: noAnimal dander: dogCockroaches: noPollen: yesArsenic: noAsbestos: noBeryllium: noCadmium: noChromium: noCoal smoke: noDiesel fumes: noNickel: noSilica: noSoot: no During the [facility] home sleep study on 10/08/15, AHI = 13.During the [facility] titration sleep study on 11/04/15, sleep onset [...] chance of dozing. Devin Benitez MD [address] [facility], [place] [address], [place], [address], [employer] 05/02/2024 11:51:12 06/20/2024 text/html . Patient is a 74-year-old female diabetic she returns for diabetic foot care she denies any new complaints. Clifton Saravia DPM [address] [facility], [place] [address], [place], [address], [facility] 06/24/2024 10:05:55 OBGyn Episode No OBEpisode recorded.
--- OUTSIDE RECORDS SUMMARY | 2024-08-14 12:19 | XMS_ITS | Encounter Summary ---
Author Organization [facility] Healthcare Address [address] [place] [address] Care Team Providers Care Sound Ranging Crewmember Name Role Phone Charles Armendariz DO Primary Care Provider [phone] David Vanegas MD Unavailable [phone] Reason for Visit * Reason Comments Diabetes Type 2 Encounter Details Date Type Department Care Team (Latest Contact Info) Description 08/13/2024 1:30 PM CDT Office Visit [facility] Diabetes and Endocrinology [address] [place] [id number] Stacy Hernandez, ROLLING DOWN MACHINE OPERATOR [address] [facility] [address] [address] Type 2 diabetes mellitus with hyperglycemia, with [...] (BMI) of 40.0 to 44.9 in adult Social History Tobacco Use Types Packs/Day Years [...] on file 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 Gender Identity Not on file Sexual Orientation Not on file documented as of this encounter Last Filed Vital Signs Vital Sign Reading Time Taken Comments Blood Pressure 120/66 08/13/2024 1:32 PM CDT Pulse 90 08/13/2024 1:32 PM CDT Temperature - - Respiratory Rate 18 08/13/2024 1:32 PM CDT Oxygen Saturation - - Inhaled Oxygen Concentration - - Weight 96.6 kg (213 lb) 08/13/2024 1:32 PM CDT Height 154.9 cm (5' 0.98) 08/13/2024 1:32 PM CD T Body Mass Index 40.27 08/13/2024 1:32 PM CDT documented in this encounter Patient Instructions * Patient Instructions* Stacy Hernandez NP - 08/13/2024 1:30 PM CDT -will try Januvia 25 mg daily. Would like in future to decrease Metformin & increase Januvia ifkidney functions improve with better blood sugar control. -will increase your Toujeo from 60 to 65 units nightly -may need less insulin if you're able to start the Januvia. Current medications: Metformin 1000mg twice daily with meals Glimepiride 4mg with breakfast & dinner Januvia 25mg daily Toujeo 65 units every evening documented in this encounter Ordered Prescriptions Prescription Sig Dispense Quantity Refills Last Filled Start Date End Date BD Ultra-Fine Mini Pen Needle 31 gauge x 3/16 needleIndications: Type 2 diabetes mellitus with hyperglycemia, with long-term current use of insulin (HCC) USE TO INJECT INSULIN DAILY 100 each 3 08/13/2024 SITagliptin phosphate (Januvia) 25 mg tabletIndications: type 2 diabetes mellitus Take 1 tablet (25 mg total) by mouth daily 30 tablet 11 08/13/2024 documented in this encounter Progress Notes * Stacy Hernandez NP - 08/13/2024 1:30 PM CDT Images from the original note were not included. [facility] Diabetes Follow Up Visit Subjective/Objective Patient ID: Aleyda Dobbs is a 74 y.o. female who comes in today to our Endocrinology clinic tofollow up for DM management. Chief Complaint Diabetes Type 2 HPI Diabetes complications and/or comorbidity include: T2DM dx'd 1991, RA, HLD, HTN, neuropathy with h/o foot ulcers, hypothyroidism Current medications: Metformin 1000mg twice daily with meals Glimepiride 4mg with breakfast & dinner Toujeo 60 units every evening Intolerant of even low dose Ozempic (N/V), Jardiance (diarrhea) Dietary habits: 2 meals/day (LN/DN). Snacks on popcorn & sugar free popsicles. Does not eat a lot of carbs. Exercise routine: sedentary. Walking with straight cane. Limited activity d/t COPD & chronic back pain (wearing TENS unit). Home CBG monitoring results: checking BG 3-4x/day. BG ranges mornings: 130s-208 (typically 240s), afternoons (after LN) 200s-230s, HS Bs No hypoglycemia. Neuropathy: bilat pedal . Gabapentin 300mg bid. Last foot exam: Today. Sees Dr Saravia q3 mos (podiatry). Statin therapy: Yes. Atorvastatin 40mg. Last lipid panel: 04/30/24 LDL=50 TG=96. Nephropathy: On MICHEAL-I / ARB???s: No. Last MA: 04/30/24 (3340). Last creat/GFR: 07/11/24 GFR=31, CR=1.73. Retinopathy: Date of last eye examination: 09/04/23 +PDR [facility] [place]. Appt 08/2024 in [place] Hypothyroidism: Currently on levothyroxine 100 mcg daily. Aleyda states that she is taking the medication regularly, without skipping or forgetting any days. Component Latest Ref Rng 09/08/2022 08/10/2023 04/30/2024 TSH 0.30 - 4.20 mcIUnit/mL 2.37 0.85 2.51 Component Latest Ref Rng 09/08/2022 08/10/2023 04/30/2024 Free T4 0.90 - 1.70 ng/dL 1.23 1.25 1.27 Wt Readings from Last 3 Encounters: 08/13/24 96.6 kg (213 lb) 07/11/24 96.1 kg (211 lb 12.8 oz) 05/16/24 96.6 kg (213 lb) Labs: Last A1c: Recent Labs Lab Units 08/13/24 1337 HEMOGLOBIN A1C POC % 7.9* Component Latest Ref Rng 08/10/2023 10/24/2023 04/30/2024 Hgb A1C, POC 4.0 - 5.6 % 7.5 8.0 8.0 Lab Results Component Value Date MICROALBUR 48.0 11/06/2020 Lab Results Component Value Date ALBCREATRATU 3,764 (H) 04/30/2024 Lab Results Component Value Date MALBCRTRAT 410 (H) 11/06/2020 Lipid profile within the last year: Lab Results Component Value Date CHOL 119 04/30/2024 Lab Results Component Value Date TRIG 96 04/30/2024 Lab Results Component Value Date HDL 51 04/30/2024 Lab Results Component Value Date LDLCALC 50 04/30/2024 Vitals: 08/13/24 1332 BP: 120/66 BP Location: Right arm Patient Position: Sitting Pulse: 90 Resp: 18 Weight: 96.6 kg (213 lb) Height: 154.9 cm (5' 0.98) Physical Exam Vitals and nursing note reviewed. Constitutional: Appearance: Normal appearance. She is well-developed. She is morbidly obese. HENT: Head: Normocephalic. Right Ear: Hearing normal. Left Ear: Hearing normal. Eyes: General: Lids are normal. Gaze aligned appropriately. Neck: Thyroid: No thyromegaly. Trachea: Trachea and phonation normal. No tracheal deviation. Cardiovascular: Rate and Rhythm: Normal rate and regular rhythm. No extrasystoles are present. Pulses: Dorsalis pedis pulses are 2+ on the right side and 2+ on the left side. Posterior tibial pulses are 2+ on the right side and 2+ on the left side. Heart sounds: Normal heart sounds, S1 normal and S2 normal. No murmur heard. Pulmonary: Effort: Pulmonary effort is normal. Breath sounds: Normal breath sounds and air entry. Musculoskeletal: General: Normal range of motion. Feet: Feet: Right Foot: Monofilament exam: abnormal. Protective Sensation: 6 sites tested. 0 sites sensed. Skin Integrity: Positive for dry skin. Negative for ulcer, blister, skin breakdown, erythema, warmth or callus. Left Foot: Monofilament exam: abnormal. Protective Sensation: 6 sites tested. 0 sites sensed. Skin Integrity: Positive for dry skin. Negative for ulcer, blister, skin breakdown, erythema, warmth or callus. Skin: General: Skin is warm and dry. Neurological: Mental Status: She is alert and oriented to person, place, and time. Mental status is at baseline. Psychiatric: Mood and Affect: Mood normal. Behavior: Behavior is cooperative. Assessment/Plan Diagnoses and all orders for this visit: Type 2 diabetes mellitus with hyperglycemia, with long-term current use of insulin ([facility]) (Primary) Assessment & Plan: Chronic problem, A1c uncontrolled; was 8.0% 04/30/24 and now 7.9%. -will try Januvia 25 mg daily. Would like in future to decrease Metformin & increase Januvia ifkidney functions improve with better blood sugar control. -will increase your Toujeo from 60 to 65 units nightly Current medications: Metformin 1000mg twice daily with meals Glimepiride 4mg with breakfast & dinner Januvia 25mg daily Toujeo 65 units every evening UTD on labs. UTD on DM eye exam (09/04/23 +PDR [facility] [place]). Discussed need to increase activity outside of housework. Discussed with Aleyda Dobbs: Strive for regular exercise (30min most days) and diet (get at least 4-5 servings of fruit and veggies daily, avoid processed foods, increase lean protein intake and decrease carb portions as well asfruit juices, regular soda & desserts). Watch carbs and simple sugars. Check the blood sugar: three times daily. Check the feet daily for skin breakdown and infection. Orders: - POCT hemoglobin A1c - POCT glucose - SITagliptin phosphate (Januvia) 25 mg tablet; Take 1 tablet (25 mg total) by mouth daily - BD Ultra-Fine Mini Pen Needle 31 gauge x 3/16 needle; USE TO INJECT INSULIN DAILY Hypertension associated with type 2 diabetes mellitus (HCC) Assessment & Plan: Chronic problem, well controlled on current Metoprolol XL 25mg daily, furosemide 20mg daily Hyperlipidemia associated with type 2 diabetes mellitus (HCC) Assessment & Plan: Chronic problem. Currently taking Atorvastatin 40mg. Last lipid panel: 04/30/24 LDL=50 TG=96 Diabetic polyneuropathy associated with type 2 diabetes mellitus (HCC) Assessment & Plan: Chronic problem. Currently taking Gabapentin 300mg bid. Reviewed foot care; needs to lotion daily. Aware to check feet nightly, not to go barefoot. Hypothyroidism, unspecified type Assessment & Plan: Chronic problem. Clinically & biochemically euthyroid on current levothyroxine 100mcg. Aware totake 1st thing in morning, 30-60 minutes before food/drink/other medications. TFTs WNL 04/30/24. Class 3 severe obesity due to excess calories with serious comorbidity and body mass index (BMI) of40.0 to 44.9 in adult Assessment & Plan: Discussed healthy diet and importance of regular physical activity (20- 30min/day, 150min/wk). Difficulty with activity d/t chronic/severe bilat knee pain & COPD. Stacy Hernandez NP documented in this encounter Miscellaneous Notes * Assessment & Plan Note - Stacy Hernandez NP - 08/13/2024 2:13 PM CDT Associated Problem(s): Class 3 severe obesity due to excess calories with serious comorbidity and body mass index (BMI) of 40.0 to 44.9 in adult Discussed healthy diet and importance of regular physical activity (20- 30min/day, 150min/wk). Difficulty with activity d/t chronic/severe bilat knee pain & COPD. * Assessment & Plan Note - Stacy Hernandez NP - 08/13/2024 1:27 PM CDT Associated Problem(s): Type 2 diabetes mellitus with hyperglycemia, with long- term current use of insulin (HCC) Chronic problem, A1c uncontrolled; was 8.0% 04/30/24 and now 7.9%. -will try Januvia 25 mg daily. Would like in future to decrease Metformin & increase Januvia ifkidney functions improve with better blood sugar control. -will increase your Toujeo from 60 to 65 units nightly Current medications: Metformin 1000mg twice daily with meals Glimepiride 4mg with breakfast & dinner Januvia 25mg daily Toujeo 65 units every evening UTD on labs. UTD on DM eye exam (09/04/23 +PDR [facility] [place]). Discussed need to increase activity outside of housework. Discussed with Aleyda Dobbs: Strive for regular exercise (30min most days) and diet (get at least 4-5 servings of fruit and veggies daily, avoid processed foods, increase lean protein intake and decrease carb portions as well asfruit juices, regular soda & desserts). Watch carbs and simple sugars. Check the blood sugar: three times daily. Check the feet daily for skin breakdown and infection. * Assessment & Plan Note - Stacy Hernandez NP - 08/13/2024 1:26 PM CDT Associated Problem(s): Hypothyroidism Chronic problem. Clinically & biochemically euthyroid on current levothyroxine 100mcg. Aware totake 1st thing in morning, 30-60 minutes before food/drink/other medications. TFTs WNL 04/30/24. * Assessment & Plan Note - Stacy Hernandez NP - 08/13/2024 1:26 PM CDT Associated Problem(s): Hypertension associated with type 2 diabetes mellitus (HCC) Chronic problem, well controlled on current Metoprolol XL 25mg daily, furosemide 20mg daily * Assessment & Plan Note - Stacy Hernandez NP - 08/13/2024 1:25 PM CDT Associated Problem(s): Hyperlipidemia associated with type 2 diabetes mellitus (HCC) Chronic problem. Currently taking Atorvastatin 40mg. Last lipid panel: 04/30/24 LDL=50 TG=96 * Assessment & Plan Note - Stacy Hernandez NP - 08/13/2024 1:25 PM CDT Associated Problem(s): Diabetic polyneuropathy associated with type 2 diabetes mellitus (HCC) Chronic problem. Currently taking Gabapentin 300mg bid. Reviewed foot care; needs to lotion daily. Aware to check feet nightly, not to go barefoot. documented in this encounter Plan of Treatment Not on file documented as of this encounter Procedures Procedure Name Priority Date/Time Associated Diagnosis Comments POCT HEMOGLOBIN A1C Routine 08/13/2024 1 :37 PM CDT Type 2 diabetes mellitus with hyperglycemia, with long-term current use of insulin (HCC) POCT GLUCOSE Routine 08/13/2024 1:37 PM CDT Type 2 diabetes mellitus with hyperglycemia, with long-term current use of insulin (HCC) documented in this encounter Results * (ABNORMAL) POCT glucose (08/13/2024 1:37 PM CDT) Glucose Blood, POC 208 Normal Fasting 70 - 100, Random <200 mg/dL Blood 08/13/2024 1:37 PM CDT us Stacy Hernandez NP POINT OF CARE TEST ORDERA BLES Final Result * (ABNORMAL) POCT hemoglobin A1c (08/13/2024 1:37 PM CDT) Hemoglobin A1C, POC 7.9(A) 4.0 - 5.6 % Blood 08/13/2024 1:37 PM CDT us Stacy Hernandez NP POINT OF CARE TEST ORDERA BLES Final Result documented in this encounter Visit Diagnoses Diagnosis Type 2 diabetes mellitus with hyperglycemia, with long-term current use of insulin (HCC)- Primary Hypertension associated with type 2 diabetes mellitus (HCC) Hyperlipidemia associated with type 2 diabetes mellitus (HCC) Diabetic polyneuropathy associated with type 2 diabetes mellitus (HCC) Hypothyroidism, unspecified type Class 3 severe obesity due to excess calories with serious comorbidity and body mass index (BMI) of 40.0 to 44.9 in adult documented in this encounter Discontinued Medications Medication Sig Discontinue Reason Start Date End Da te rivaroxaban (Xarelto) 2.5 mg tabletIndications:patien t unsure why she is on this med. Take 1 tablet (2.5 mg total) by mouth 2 (two) times a day Therapy completed 01/27/2021 08/13/2024 BD Ultra-Fine Mini Pen Needle 31 gauge x 3/16 needle USE TO INJECT INSULIN DAILY Reorder 05/24/2024 08/13/2024 documented as of this encounter Historical Medications * This list may reflect changes made after this encounter. rifabutin (MYCOBUTIN) 150 mg capsule Take 2 capsules (300 mg total) by mouth daily mv,Ca,min-folic acid-vit K1 (Women's 50 Plus Advanced) 400-20 mcg tablet Take by mouth daily added in this encounter Care Teams Sound Ranging Crewmember Relationship Specialty Start Date End Date Charles Armendariz DO PCP - General 05/27/16 David Vanegas MD [address] [place] [address] Consulting Physician Cardiology 07/20/18 documented as of this encounter
--- OUTSIDE RECORDS SUMMARY | 2024-08-14 12:19 | XMS_ITS | Encounter Summary ---
Author Organization [facility] Address 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 Gender Identity Not on file Sexual Orientation Not on file documented as of this encounter Plan of Treatment Upcoming Encounters Date Type Department Care Team (Late st Contact Info) Description 11/20/2024 9:00 AM CDT Office Visit [facility] Oncology and Hematology - [place] [address] [facility] [address] [place] [address] Ray Richards MD [address] [facility] [address] [place] [address] documented as of this encounter Visit Diagnoses Diagnosis Unspecified hearing loss documented in this encounter Care Teams Human Resources Office Assistant Relationship Specialty Start Date End Date Charles Armendariz DO [address] [facility] [address] [place] [address] PCP - General Internal Medicine 11/04/22 documented as of this encounter
--- OUTSIDE RECORDS SUMMARY | 2024-08-14 12:19 | XMS_ITS | Clinical Summary ---
Author Organization [facility] Address [address] [place] [address] Care Team Providers Care Claim Taker Name Role Phone Charles Armendariz DO Primary Care Provider [phone] David Vanegas MD Unavailable [phone] Allergies Active Allergy Reactions Criticality Noted Date Comments Ciprofloxacin Nausea only Low 09/08/2022 Daptomycin Diarrhea Low 06/29/2020 Doxycycline Unknown Low 09/19/2019 Canagliflozin Diarrhea Low 10/28/2021 Iodine Strong (Lugols) Unknown 08/13/2024 Empagliflozin Diarrhea Low 04/21/2021 Lisinopril Cough Low 08/13/2018 Semaglutide Diarrhea High 01/27/2021 Povidone-Iodine Rash Medium 05/05/2017 Xxdikzh-Cuw-Dgz Reductase Inhibitors Muscle pain Medium 11/05/2020 Trimethoprim [...] total) by mouth every morning Activ e qe-euikjse-gae -iron fm-FA-vitK 18 mg-400 mcg- 25 mcg [...] symptoms. Assessment & Plan (03/15/2024 10:09 AM HELP DESK MANAGER): - Doing well on INH/B6 for LTBI, [...] TG=96 Assessment & Plan (04/30/2024 2:13 PM HELP DESK MANAGER): Chronic problem. Currently taking Atorvastatin 40mg. Last lipid panel: 03/09/23 LDL=37 IT=822. Will update labs. Does not mychart. Verified phone #/address to contact re: results. Assessment & Plan (10/24/2023 3:19 PM CDT): Chronic problem. Currently taking Atorvastatin 40mg. Last lipid panel: 03/09/23 LDL=37 OR=435. Positive TB test 09/19/2023 Assessment & Plan (01/01/2024 12:37 PM HELP DESK MANAGER): - Unable to tolerate rifabutin as she [...] CBC and CMP in 1 month at [facility] - Ok to start biologic for rheumatoid [...] COPD. Assessment & Plan (03/09/2023 10:05 AM HELP DESK MANAGER): Discussed healthy diet and importance of regular [...] 03/22/2022 Assessment & Plan (03/22/2022 8:59 AM HELP DESK MANAGER): Chronic problem, stable. 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 Assessment & Plan (04/30/2024 2:14 PM HELP DESK MANAGER): Chronic problem. Currently taking levothyroxine 100mcg. Clinically [...] 1.23 Assessment & Plan (03/09/2023 9:54 AM HELP DESK MANAGER): Chronic problem. Currently taking levothyroxine 100mcg. 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 Currently taking Gabapentin 300mg bid. Reviewed foot care; needs to lotion daily. Aware to check feet nightly, not to go barefoot. Assessment & Plan (04/30/2024 2:13 PM HELP DESK MANAGER): Chronic problem. Currently taking Gabapentin 300mg bid. [...] barefoot. Assessment & Plan (03/09/2023 9:47 AM HELP DESK MANAGER): Chronic problem. Currently taking gabapentin. Aware to check feet nightly & not go barefoot. Assessment & Plan (09/08/2022 11:14 AM CDT): Chronic problem. Currently taking gabapentin. Aware to check feet nightly. Assessment & Plan (03/21/2022 8:54 AM HELP DESK MANAGER): Chronic problem. Currently taking gabapentin. Aware to check feet nightly. Assessment & Plan (05/13/2021 10:51 AM CDT): Foot care discussed Assessment & Plan (11/05/2020 2:29 PM CDT): Foot care discussed The patient does not feel that Neurontin helps of will discontinue Assessment & Plan (04/02/2020 1:40 PM HELP DESK MANAGER): On Neurontin Foot care discussed Assessment & Plan (10/19/2017 10:52 AM CDT): Foot care discussed On neurointin Advised on seeing foot dr. Hyperlipidemia 10/19/2017 Assessment & Plan (03/09/2023 9:48 AM HELP DESK MANAGER): Chronic problem. Current on atorvastatin 40mg daily. Last lipid panel: 11/04/21 LDL=26, VS=160. Will update labs today. Does not mychart. Verified phone #/address to contact re: results. Assessment & Plan (09/08/2022 11:14 AM CDT): Chronic problem. Current on atorvastatin 40mg daily. 11/04/21 LDL=26. No changes. Assessment & Plan (03/21/2022 8:53 AM HELP DESK MANAGER): Chronic problem. Current on atorvastatin 40mg daily. [...] Lipitor Assessment & Plan (04/02/2020 1:37 PM HELP DESK MANAGER): Goal of treatment , LDL cholesterol less [...] therapy. Assessment & Plan (03/12/2019 12:24 PM HELP DESK MANAGER): Goal of treatment , LDL cholesterol less [...] eye exam (09/04/23 +PDR [facility] [place]). Discussed need to increase activity outside of [...] infection. Assessment & Plan (04/30/2024 2:42 PM HELP DESK MANAGER): Chronic problem, A1c stable but uncontrolled at [...] UTD on DM eye exam (03/06/23 at [facility] in [place]). Had appt summer 2023; letter sent to [...] UTD on DM eye exam (03/06/23 at [facility]). Discussed need to increase activity [...] UTD on DM eye exam (03/06/23 at [facility] Discussed need to increase activity outside [...] infection. Assessment & Plan (03/09/2023 10:02 AM HELP DESK MANAGER): Chronic problem, A1c worsening. A1c breanna from [...] re: results. DM eye exam 03/06/23 at [facility] in [place]. Letter sent to get copy of report. [...] housework. Assessment & Plan (03/22/2022 9:20 AM HELP DESK MANAGER): Chronic problem, not at goal. Continue: Metformin [...] consider. Assessment & Plan (03/12/2019 12:23 PM HELP DESK MANAGER): Hba1c was Lab Results Component Value Date [...] goal hba1c is under 7.0 to prevent senior living diabetes complications ( eye , kidney and [...] Humalog. Assessment & Plan (03/30/2017 12:29 PM HELP DESK MANAGER): A1c 6.6 but she does have anemia with elevated RDW. Bydureon since 12/2016 may have also helped to improve A1c but will be stopping that for now. Will evaluate again at next Ov. Assessment & Plan (01/17/2017 10:11 AM HELP DESK MANAGER): Hba1c was 8.8 today, indicating inadequate DM [...] daily Assessment & Plan (04/30/2024 2:14 PM HELP DESK MANAGER): Chronic problem, well controlled on current Metoprolol XL 25mg daily, furosemide 20mg daily Will update labs today. Does not mychart. Verified phone #/address to contact re: results. Assessment & Plan (03/09/2023 9:47 AM HELP DESK MANAGER): Chronic problem, well controlled on current Metoprolol XL 25mg daily, furosemide 20mg daily Will update labs today. Does not mychart. Verified phone #/address to contact re: results. Assessment & Plan (09/08/2022 11:14 AM CDT): Chronic problem, well controlled on current Metoprolol XL 25mg daily, furosemide 20mg daily No changes at this time. Assessment & Plan (03/22/2022 9:00 AM HELP DESK MANAGER): Chronic problem, well controlled on current metoprolol XL 25mg daily. No changes at this time. Assessment & Plan (07/02/2020 4:04 PM CDT): Goal blood pressure is less than 140/85 Low salt diet was discussed andd recommended The importance of daily aerobic exercise was also emphasized. Continue current meds Assessment & Plan (04/02/2020 1:38 PM HELP DESK MANAGER): Goal blood pressure is less than 140/85 [...] MA. Assessment & Plan (03/12/2019 12:24 PM HELP DESK MANAGER): Goal blood pressure is less than 140/85 [...] medications. Assessment & Plan (03/30/2017 12:33 PM HELP DESK MANAGER): Controlled on current medications. Assessment & Plan (01/17/2017 10:12 AM HELP DESK MANAGER): Goal blood pressure is less than 140/85 [...] Atherosclerotic heart diseas e of [place] coronary artery without angina pectoris 09/09/2010 Chronic [...] atorvastatin Assessment & Plan (03/30/2017 12:33 PM HELP DESK MANAGER): Continue statin Obesity due to excess calories 11/05/2015 03/21/2022 Assessment & Plan (03/30/2017 12:20 PM HELP DESK MANAGER): Current exercise will be reduced with completion of Pt. Advised to add walking or other home based exercise to current house work. Elevated erythrocyte sedimentation rate 12/27/2013 03/21/2022 Need for immunization against influenza 12/27/2013 03/21/2022 Encounters Date Type Department Care Team Description 08/13/2024 1:30 PM CDT Office Visit [facility] Medical Group Diabetes and Endocrinology [address] [place] [phone] Stacy Hernandez, DEISY Type 2 diabetes mellitus with hyperglycemia, with [...] 40.0 to 44.9 in adult 08/07/2024 Telephone [facility] Medical [facility] Diabetes and Endocrinology [address] [place] [phone] Stacy Hernandez NP error 07/11/2024 10:[address] [facility] [address] [place] [address] [address] [place] [address] Rheumatoid arthritis involving multiple sites with positive rheumatoid factor (HCC); High risk medication use 07/11/2024 10:20 AM CDT Office Visit [facility] Rheumatology [address] [place] [address] [address] [place] [address] Shawanda De La Cruz NP Rheumatoid arthritis involving multiple sites with positive rheumatoid factor (HCC) (Primary Dx); High risk medication use 05/16/2024 9:40 AM CDT Office Visit [facility] Infectious Diseases [address] [place] [address] [address] [place] [address] Ana Laura Loaiza NP LTBI (latent tuberculosis infection) (Primary Dx) [...] artery disease Coronary artery disease s/p silent [place] Hammer toe Hammer toe; Comm ents: MH [...] Fibromyalgia fibromyalgia Sleep apnea pt uses CPAP [facility] juan j every night Type 2 diabetes [...] on file Legal Sex Female 12:14 AM HELP DESK MANAGER Gender Identity Not on file Sexual [...] 08/13/2024 1:32 PM CDT Plan of Treatment Health Maintenance Due [...] 09/03/2024 09/04/2023, 09/2023, 02/18/2021, Additional history exists Fall Risk Assessment 12/07/2024 12/08/2023 Hemoglobin A1C 02/12/2025 08/13/2024, 03/0 05/2024, 10/24/2023, Additional history exists Albumin Creatinine Ratio, Urine 04/30/2025 04/30/2024, 03/09/2023, 11/04/2021, Additional history exists Lipid Panel 04/30/2025 04/30/2024, 02/27, 11/04/2021, Additional history exists eGFR 07/11/2025 07/11/2024, 03/0 05/2024, 04/27/2024, Additional history exists Foot Exam 08/13/2025 08/13/2024, 09/28, 09/08/2022, Additional history exists Osteoporosis Screening-Bone Density Scan 04/02/2026 04/02/2024, 09/23/2021, 09/23/2021 DTaP/Tdap/Td Vaccine (2 - Td or Tdap) 09/15/2031 09/14/2021 Hepatitis C Screening Completed 07/03/2023, 020 Influenza Vaccine Completed 01/01/2024, , 12/09/2019, Additional history exists Medical Devices Implanted Type Area Physics Technical Officer Device Identifier Shelf Expiration Date Model / Serial / Lot Allosource [id number] Freeze Dried Chips Graft 15ml Bone Cancellous Cortical - [id number] Implanted:Qty: 1 on 08/14/2018 by Pradip Whalen MD at [facility] Bone Allosource 08/28/2022 [id number] / / [id number] Allosource [id number] Allogro Freeze Dried Graft 15ml Bone Demineralized Bone Matrix - [id number] Implanted:Qty: 1 on 08/14/2018 by Pradip Whalen MD at [facility] Bone Allosource 03/15/2023 [id number] / / [id number] Intraocular Lens Bilateral : Eye Orthohelix [id number] Maxtorque 4mm 37.5mm Cannulated Self Drill Foot Ankle Long Thread - [id number] Implanted:Qty: 1 on 08/14/2018 by Pradip Whalen MD at [facility] Right: Foot Orthohelix MSD-010-40- 375L / / [employer] [id number] Cristobal .062in 9in Style 1 Wire Fixation Stainless Steel - [id number] Implanted:Qty: 1 on 08/14/2018 by Pradip Whalen MD at [facility] Right: First Toe [employer] [id number] / / Orthohelix Mxl-002-2a Maxlock Extreme 2 Hole [place] Alpha Plate Bone Nonsterile - [id number] Implanted:Qty: 1 on 08/14/2018 by Pradip Whalen MD at [facility] Right: Foot Orthohelix MXL-002-2A / / Orthohelix [id number] Maxtorque 5.5mm 50mm Cannulated Self Drill Foot Ankle Long Thread - [id number] Implanted:Qty: 1 on 08/14/2018 by Pradip Whalen MD at [facility] Right: Foot Orthohelix MSD-010-55- 050L / / Orthohelix [id number] Maxtorque 5.5mm 55mm Cannulated Self Drill Foot Ankle Long Thread - [id number] Implanted:Qty: 1 on 08/14/2018 by Pradip Whalen MD at [facility] Right: Foot Orthohelix MSD-010-55- 055L / / Orthohelix [id number] Maxtorque 7mm 70mm Cannulated Self Drill Foot Ankle Petite Thread - [id number] Implanted:Qty: 1 on 08/14/2018 by Pradip Whalen MD at [facility] Right: Foot Orthohelix MSD-010-70- 070P / / Orthohelix [id number] 4mm 26mm Nonlock Foot Ankle Screw Bone Nonsterile Maxlock Extreme - [id number] Implanted:Qty: 2 on 08/14/2018 by Pradip Whalen MD at [facility] Right: Foot Orthohelix CONTRACT LEAD-[id number] 6 / / Orthohelix [id number] Maxlock Extreme 4mm 28mm Nonlock Foot Ankle Screw Bone Nonsterile Latex Free - [id number] Implanted:Qty: 1 on 08/14/2018 by Pradip Whalen MD at [facility] Right: Foot Orthohelix CONTRACT LEAD-011-402 8 / / Orthohelix [id number] Maxlock Extreme 4mm 24mm Nonlock Foot Ankle Screw Bone Nonsterile - [id number] Implanted:Qty: 1 on 08/14/2018 by Pradip Whalen MD at [facility] Right: Foot Orthohelix CONTRACT LEAD-011-40- 24 / / Explanted Type Area Physics Technical Officer Device Identifier Shelf Expiration Date Model / Serial / Lot Orthohelix Multi Line Claims Adjuster-040 [place] Wire Fixation Nonsterile Latex Free - [id number] Explanted:Qty: 2 on 08/14/2018 at [facility] Right: Foot Orthohelix CONTRACT LEAD-040 / / Procedures Procedure Name Priority Date/Time [...] (HCC) LIPID PANEL Routine 04/30/2024 2:40 PM HELP DESK MANAGER Type 2 diabetes mellitus with hyperglycemia, with long-term current use of insulin (HCC) Hyperlipidemia associated with type 2 diabetes mellitus (HCC) ALBUMIN CREATININE RATIO, URINE Routine 04/30/2024 2:40 PM HELP DESK MANAGER Type 2 diabetes mellitus with hyperglycemia, with long-term current use of insulin (HCC) DEXA AXIAL SKELETON BONE DENSITY 1 OR MORE SITES Schedule Routine, Read Routine (OP Routine) 04/02/2024 11:04 AM HELP DESK MANAGER Rheumatoid arthritis involving multiple sites with positive rheumatoid factor (HCC) HM DIABETES EYE EXAM Routine 09/04/2023 8:55 AM CDT HEPATITIS PANEL, ACUTE Routine 07/03/2023 10:42 AM CDT High risk medication use from Last 3 Months or Most Recently Relevant to Health Maintenance Results * (ABNORMAL) POCT hemoglobin A1c (08/13/2024 1:37 PM CDT) Pathologist [facility] Hemoglobin A1C, POC 7.9(A) 4.0 - 5.6 % Blood 08/13/2024 1:37 PM CDT us Stacy Hernandez NP POINT OF CARE TEST ORDERA BLES Final Result * (ABNORMAL) POCT glucose (08/13/2024 1:37 PM CDT) [facility] Glucose Blood, POC 208 Normal Fasting 70 - 100, Random <200 mg/dL Blood 08/13/2024 1:37 PM CDT Stacy Hernandez HANDER IN POINT OF CARE TEST ORDERA BLES Final Result * (ABNORMAL) eGFR (07/11/2024 10:58 AM CDT) [facility] eGFR 31(L) >=60 mL/min/1. 73 m2 [...] 8 AM CDT 07/11/2024 2:19 PM CDT Shawanda R. Govero HANDER IN LAB BLOOD ORDERABLES Final Result [facility] [place] [address] * Differential, auto (07/11/2024 10:58 AM CDT) Neutrophil abs 3.38 1.50 - 6.50 K/cumm Imm gran abs 0.01 0.00 - 0.10 K/cumm [facility] Lymphocyte abs 1.92 0.80 - 3.30 K/cumm [facility] Monocyte abs 0.59 0.20 - 0.80 K/cumm [facility] Eosinophil abs 0.29 0.00 - 0.50 K/cumm [facility] Basophil abs 0.04 0.00 - 0.10 K/cumm [facility] Neutrophil pct 54.2 % [facility] Comment: Interpretive Data Percent cell count reference ranges are not reported, since discordance with absolute values may lead to misinterpretation of CBC data. Current Interpretive Data was last revised on 2017. Imm gran pct 0.2 % [facility] Comment: Interpretive Data Percent cell count reference ranges are not reported, since discordance with absolute values may lead to misinterpretation of CBC data. Current Interpretive Data was last revised on 2017. Lymphocyte pct 30.8 % [facility] Comment: Interpretive Data Percent cell count reference ranges are not reported, since discordance with absolute values may lead to misinterpretation of CBC data. Current Interpretive Data was last revised on 2017. Monocyte pct 9.5 % [facility] Comment: Interpretive Data Percent cell count reference ranges are not reported, since discordance with absolute values may lead to misinterpretation of CBC data. Current Interpretive Data was last revised on 2017. Eosinophil pct 4.7 % [facility] Comment: Interpretive Data Percent cell count reference ranges are not reported, since discordance with absolute values may lead to misinterpretation of CBC data. Current Interpretive Data was last revised on 2017. Basophil pct 0.6 % [facility] Comment: Interpretive Data Percent cell count reference ranges are not reported, since discordance with absolute values may lead to misinterpretation of CBC data. Current Interpretive Data was last revised on 2017. Blood 07/11/2024 10:5 8 AM CDT 07/11/2024 1:54 PM CDT Shawanda De La Cruz NP LAB BLOOD ORDERABLES Final Result Performing Organization Address [facility] de Phone Number [facility] [place] [address] * (ABNORMAL) CBC with auto differential (07/11/2024 10:58 AM CDT) WBC 6.23 3.80 - 9.90 K/cumm Hgb 10.4(L) 11.9 - 15.5 g/dL [facility] Hct 33.1(L) 35.6 - 45.5 % [facility] Plt 121(L) 150 - 400 K/cumm [facility] MPV 13.3(H) 9.1 - 12.3 fL [facility] RBC 3.78(L) 3.90 - 5.20 M/cumm [facility] MCV 87.6 81.3 - 96.4 fL [facility] MCH 27.5 27.1 - 33.3 pg [facility] MCHC 31.4(L) 32.3 - 35.7 g/dL [facility] RDW CV 15.6(H) 11.1 - 14.9 % [facility] RDW SD 49.7(H) 35.7 - 48.1 fL [facility] NRBC abs 0.00 0.00 - 0.01 K/cumm [facility] Blood 07/11/2024 10:5 8 AM CDT 07/11/2024 1:54 PM CDT us Shawanda De La Cruz HANDER IN LAB BLOOD ORDERABLES Final Result Performing Organization Address [facility] Co de Phone Number [facility] [place] [address] * (ABNORMAL) Erythrocyte sedimentation rate (07/11/2024 10:58 AM CDT) [facility] Erythrocyte sedimentation rate 91(H) 1 - 30 mm/hr Blood 07/11/2024 10:5 8 AM CDT 07/11/2024 1:54 PM CDT Shawanda De La Cruz HANDER IN LAB BLOOD ORDERABLES Final Result Performing Organization Address City/[facility]/ZIP Co de Phone Number [facility] [place] [address] * CRP (acute phase) (07/11/2024 10:58 AM CDT) [facility] CRP 1.0 <=10.0 mg/L Blood 07/11/2024 10:5 8 AM CDT 07/11/2024 2:01 PM CDT Shawanda De La Cruz HANDER IN LAB BLOOD ORDERABLES Final Result Performing Organization Address [facility] de Phone Number [facility] [place] [address] * (ABNORMAL) Comprehensive metabolic panel (07/11/2024 10:58 AM CDT) [facility] Sodium 142 135 - 145 mmol/L Potassium, pl 5.0(H) 3.3 - 4.9 mmol/L [facility] Chloride 106 97 - 110 mmol/L [facility] CO2 27 22 - 32 mmol/L [facility] Anion gap 9 2 - 15 mmol/L [facility] BUN 53(H) 6 - 25 mg/dL [facility] Creatinine 1.73(H) 0.60 - 1.10 mg/dL [facility] Glucose 115 70 - 199 mg/dL [facility] Comment: Interpretive Data Fasting glucose >/= 126 [...] 2022. Calcium 9.4 8.5 - 10.3 mg/dL [facility] Bilirubin, total 0.3 0.1 - 1.2 mg/dL [facility] Protein, pl 7.6 6.5 - 8.5 g/dL [facility] Albumin 3.6 3.5 - 5.0 g/dL [facility] Alk phos 121 40 - 130 Units/L [facility] ALT 24 7 - 45 Units/L [facility] AST 35 10 - 45 Units/L [facility] Blood 07/11/2024 10:5 8 AM CDT 07/11/2024 2:01 PM CDT us Shawanda De La Cruz HANDER IN LAB BLOOD ORDERABLES Final Result [facility] [place] [address] * (ABNORMAL) Albumin Creatinine Ratio, Urine (04/30/2024 2:40 PM HELP DESK MANAGER) Albumin Ur 3,067.5 mg/L Comment: Interpretive Data No reference range established. Current interpretive data was last revised 2018. Creatinine Ur 81.5 mg/dL [facility] Comment: Interpretive Data No reference range established. Current interpretive data was last revised 2018. Albumin Creatinine Ratio, Ur 3,764(H) 1 - 29 mg/g [facility] Urine 04/30/2024 2:40 PM HELP DESK MANAGER 04/30/2024 11:00 PM HELP DESK MANAGER us Stacy Hernandez HANDER IN LAB URINE ORDERABLES Valery l Result [facility] [address] [place] [address] * Lipid panel (04/30/2024 2:40 PM HELP DESK MANAGER) Cholesterol 119 30 - 199 mg/dL Comment: [...] on 2017. Triglycerides 96 <=149 mg/dL [facility] Comment: Interpretive Data Ages [...] 2 [facility] Blood 04/30/2024 2:40 PM HELP DESK MANAGER 04/30/2024 11:00 PM HELP DESK MANAGER us Stacy Hernandez NP LAB BLOOD ORDERABLES Valery l Result [facility] [address] [place] [address] * Dexa Axial Skeleton Bone Density 1 or 2 Site (04/02/2024 11:04 AM HELP DESK MANAGER) Anatomical Region Laterality Modality Body N/A Radiographic Sheron ging Narrative 04/02/2024 2:27 PM HELP DESK MANAGER Patient Name: Aleyda Broussard Date of : 1950 Date of scan: 04/02/2024 Bone mineral density was performed on a [employer] Discovery Densitometer. Based on machine cross-calibration and [...] by the International Society of Clinical Densitometry. [id number] Shawanda De La Cruz NP IMG DXA PROCEDURES Final R esult * (ABNORMAL) DIABETES EYE EXAM (09/04/2023 8:55 AM CDT) Historical Provider MD HEALTH MAINTENANCE Final Result * Hepatitis panel, acute Blood (07/03/2023 10:42 AM CDT) Hep A IgM Nonreactive Nonreactive Hep B core IgM Nonreactive Nonreactive [facility] Hep C Ab Nonreactive Nonreactive [facility] Comment:Antibodies to HCV no t detected. Does NOT exclude the possibility of recent exposure to HCV. Current interpretive data was last revised on 21 HepBsAg Nonreactive Nonreactive [facility] Blood 07/03/2023 10:4 2 AM CDT 07/03/2023 2:00 PM CDT Shawanda De La Cruz NP LAB MICROBIOLOGY - GENERAL ORDERABLES Final Result [facility] [place] [address] from Last 3 Months or Most Recently Relevant to Health Maintenance Insurance MEDICARE [employer] OPEN ACCESS MEDICARE BLUE ACCESS [employer] OPEN ACCESS MEDICARE [employer] ACCESS [employer] OPEN ACCESS Advance Directives For more information, please contact: [phone] * Full Code (Latest Code Status on File) Date Activated Date Inactivated Comments 07/20/2020 2:30 PM 07/21/2020 6:17 PM * Full Code Date Activated Date Inactivated Comments 08/14/2018 8:57 PM 08/15/2018 6:35 PM Care Teams Claim Taker Relationship Specialty Start Date End Date Charles Armendariz DO PCP - General 05/27/16 David Vanegas MD [address] [place] [address] Consulting Physician Cardiology 07/20/18
--- OUTSIDE RECORDS SUMMARY | 2024-08-14 12:19 | XMS_ITS | Encounter Summary ---
Author Organization [facility] Address [address] [place] [address] Phone Care Team Providers Care Seeing Eye Dog Teacher Name Role Phone Charles Armendariz DO Primary Care Provider [phone] David Vanegas MD Unavailable [phone] Encounter Details Date Type Department Care Team (Late st Contact Info) Description 01/30/2023 Orders Only [facility] OS PMR [phone] Scanning, Provider Social History Tobacco Use Types [...] on file Legal Sex Female 12:14 AM RADIO FREQUENCY DESIGN ENGINEER Gender Identity Not on file Sexual [...] on filedocumented in this encounter Care Teams Seeing Eye Dog Teacher Relationship Specialty Start Date End Date Charles Armendariz DO PCP - General 05/27/16 David Vanegas MD [address] [place] [address] Consulting Physician Cardiology 07/20/18 documented as of this encounter
--- OUTSIDE RECORDS SUMMARY | 2024-08-14 12:19 | XMS_ITS | Encounter Summary ---
Author Organization [facility] Address [address] [place] [address] Phone Care Team Providers Care Top Stop Attacher Name Role Phone Charles Armendariz DO Primary Care Provider [phone] David Vanegas MD Unavailable [phone] Encounter Details Date Type Department Care [...] on file Legal Sex Female 12:14 AM WELL BLOWER Gender Identity Not on file Sexual Orientation [...] on filedocumented in this encounter Care Teams Top Stop Attacher Relationship Specialty Start Date End Date Charles Armendariz DO PCP - General 05/27/16 David Vanegas MD [address] [place] [address] Consulting Physician Cardiology 07/20/18 documented as of this encounter
[2024-08-14 13:02] LABS: Anion Gap 8 mmol/L (4-12); Blood Urea Nitrogen 33 mg/dL (7-17); Calcium 8.9 mg/dL (8.4-10.2); Carbon Dioxide 21 mmol/L (22-30); Chloride 111 mmol/L (98-107); Estimated Glomerular Filt Rate 32; Glucose 150 mg/dL (65-110); Potassium 4.1 mmol/L (3.4-5.0); Sodium 140 mmol/L (137-145)
[2024-08-14 13:17] LABS: NT Pro B Type Natriuretic Pept 2020 pg/mL (19.9-100)
== END 2024-08-14 10:37 | disposition home or self-care (01) ==
LOC: ANHLAB 10:42
PROVIDERS: PCP Internal Medicine; Visit Provider Internal Medicine Cardiovascular Disease
DX: I82.90 Acute embolism and thrombosis of unspecified vein (principal); I67.2 Cerebral atherosclerosis; R79.89 Other specified abnormal findings of blood chemistry; A15.9 Respiratory tuberculosis unspecified; Z95.818 Presence of other cardiac implants and grafts; N18.2 Chronic kidney disease, stage 2 (mild); I34.9 Nonrheumatic mitral valve disorder, unspecified; I80.9 Phlebitis and thrombophlebitis of unspecified site; Z20.89 Contact with and (suspected) exposure to other communicable diseases
CPT/HCPCS: 36415; 80048; 83880

== ENCOUNTER 2024-12-28 11:34 | Emergency (ER) | payer MEDICARE, BC, SELFPAY ==
--- NOTE | 2024-12-28 12:18 | ED.FEMALEGU ---
HPI - Female Genitourinary General Chief complaint: Urogenital-Female Stated complaint: severe UTI, flank pain Time Seen by Provider: 12/28/24 12:05 Source: patient Mode of arrival: ambulatory Limitations: no limitations History of Present Illness HPI Narrative: 74 YEARS OLD WHITE FEMALE CAME TO THE ED WITH URINARY SYMPTOMS INCLUDING FREQUENCY,, SUPRAPUBIC TENDERNESS, NAUSEA STARTED YESTERDAY. PATIENT REPORT HAVING SIMILAR SYMPTOM NUMEROUS OF TIME IN THE PAST WITH RECURRENT URINARY TRACT INFECTION. LAST TREATMENT WAS 2024. PATIENT WAS SEEN LAST BY FAMILY PHYSICIAN 4 DAYS AGO FOR REGULAR CHECKUP. SHE DENIES ANY FEVER OR CHILLS OR VOMITING OR RADIATION PAIN, VAGINAL BLEEDING OR DISCHARGE Related Data Home Medications ?Medication ?Instructions ?Recorded ?Confirmed ?Last Taken ?Type cholecalciferol (vitamin D3) 125 5,000 unit PO DAILY 01/02/19 12/22/24 12/13/23 History mcg (5,000 unit) tablet multivitamin 1 tablet PO DAILY 01/02/19 12/22/24 12/13/23 History hydroxychloroquine 200 mg tablet 200 mg PO BID 05/06/20 12/22/24 06/04/24 History (Plaquenil) atorvastatin 40 mg tablet 40 mg PO HS 06/18/20 12/22/24 06/03/24 History calcium carbonate 1,200 mg PO DAILY 12/01/21 12/22/24 12/13/23 History ferrous sulfate 325 mg (65 mg 325 mg PO BID 12/01/21 12/22/24 12/13/23 History iron) tablet furosemide 20 mg tablet 20 mg PO DAILY 09/20/23 12/22/24 06/04/24 History esomeprazole magnesium 20 mg 20 mg PO DAILY 10/17/23 12/22/24 06/04/24 History capsule,delayed release (Nexium 24HR) fluticasone propionate 50 1 - 2 spray intranasal BID allergy 10/17/23 12/22/24 12/13/23 History mcg/actuation nasal symptoms spray,suspension (Allergy Relief (fluticasone)) glimepiride 4 mg tablet 4 mg PO BID 10/17/23 12/22/24 06/04/24 History omega-3 1,050 xj-xte-zer-dpa-fish 1 cap PO BID 10/17/23 12/22/24 12/13/23 History oil 1,200 mg capsule aspirin 81 mg chewable tablet 81 mg PO DAILY 05/28/24 12/22/24 05/29/24 History (Aspirin Childrens) ascorbic acid (vitamin C) 1 tablet PO DAILY 12/17/24 12/22/24 Unknown History insulin glargine U-300 conc 300 55 unit subcut HS 12/17/24 12/22/24 Unknown History unit/mL (1.5 mL) subcutaneous pen (Toujeo SoloStar U-300 Insulin) leflunomide 20 mg tablet 20 mg PO DAILY 12/17/24 12/22/24 Unknown History rivaroxaban 2.5 mg tablet 2.5 mg PO BID 12/17/24 12/22/24 Unknown History Allergies Allergy/AdvReac Type Severity Reaction Status Date / Time daptomycin Allergy Intermediate Hives Verified 12/18/24 09:26 lisinopril Allergy Intermediate Cough Verified 12/18/24 09:26 trimethoprim Allergy Intermediate Itching Verified 12/18/24 09:26 valsartan Allergy Intermediate Hives Verified 12/18/24 09:26 vancomycin Allergy Intermediate Hives Verified 12/18/24 09:26 povidone-iodine (From Allergy Mild Hives Verified 12/18/24 09:26 Betadine) sulfadimethoxine AdvReac Intermediate Vomiting Verified 12/18/24 09:26 Review of Systems Review of Systems: All systems reviewed & are unremarkable except as noted in HPI and below PMFSH Past Medical History Medical History Hospital discharge follow-up Right clavicle fracture Displaced fracture of clavicle UTI symptoms Elevated troponin Elevated troponin Nausea & vomiting Diarrhea Diarrhea Urinary tract infection TERESA (acute kidney injury) COVID-19 Cellulitis of great toe of right foot Cellulitis of great toe, left Person under investigation for COVID-19 COVID Open wound of left great toe Muscle spasm Muscle spasms of both lower extremities Open wound of right great toe Skin ulcer of left great toe with necrosis of muscle SOB (shortness of breath) Acute hypoxic respiratory failure Fever and chills Strain of rotator cuff of left shoulder 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 Lupus Fibromyalgia Sepsis BMI greater than 40 Right knee DJD Left knee DJD Rotator cuff tendonitis Pre-op evaluation Abdominal pain Arthritis of knee, degenerative Thrombocytopenia Polyneuropathy Type 2 diabetes mellitus with complication Sore throat Right wrist pain Rib pain on right side Rheumatoid arthritis of unspecified site with involvement of other organs and systems 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 Pes planus of both feet Pain in left hand Other chronic pain Numbness in both hands Non-pressure chronic ulcer of right heel and midfoot with bone involvement without evidence of necrosis Non-pressure chronic ulcer of other part of unspecified foot limited to breakdown of skin half-way (current) use of insulin Left wrist pain Hives Flat foot [pes planus] (acquired), left foot Essential hypertension Ear ache 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 2 diabetes mellitus Chronic abdominal pain Acute pain of both knees Acute pain of both hips Colon cancer screening Gastroparesis Chronic diarrhea Microscopic colitis Amputation toe Peripheral arterial disease Posterior tibial tendon dysfunction, left Charcot ankle Diarrhea Obesity Left shoulder pain History of GA (myocardial infarction) Carpal tunnel syndrome, bilateral Anemia Polyneuropathy Hypertension Cellulitis of right foot Chicken pox Hernia UTI (urinary tract infection) Heartburn Pneumonia Chronic pain Type 2 diabetes mellitus Hypothyroidism Rheumatoid arthritis Surgical History Surgical History History of hernia repair History of carpal tunnel release Amputation of left great toe Hx of cholecystectomy H/O foot surgery Poor historian- potential left posterior tibial tendon reconstruction Right foot charcot history? with surgery. Family History Family History Father Hyperlipidemia Lung cancer Diabetes mellitus Mother Diabetes mellitus Other Family history of allergic disorder Hypertension Social History Social History Social History: Patient quit tobacco in 1997 after smoking a pack a day for about 30 years. She denies drug use. She occasionally drinks alcohol. Still lives at home with her and brother. She is a full code. She nominated her daughter Elisha to be the individual make medical decisions for her if she is unable. Smoking packs per day: 1 Smoking cigarettes per day: 20.0 Years smoked: 29 Smoking pack-years: 29.00 Smoking status: Former smoker Tobacco type: cigarettes Smoking end date: 02/27/97 Additional smoking assessment comments: denies nicotine Alcohol intake: never Alcohol use details: occasionally Substance use: never Substance use type: does not use Do You Feel Safe in your Home?: Yes Lack of Transportation: No Lack of Food: Never True Current Housing: I Have Housing Concerned About Future Housing: No Difficulty Paying Gas/Electric Bills: No Difficulty Paying for Meds: No Currently Unemployed: No Education: High School Diploma/GED Difficulty w/ Childcare or Family Care: No Living arrangements: with family Additional living arrangements comments: Gender identity (if verbalized by the patient): Female Spiritual care concerns: No Exam Narrative: GENERAL APPEARANCE: WELL-DEVELOPED, WELL-NOURISHED SKIN: NORMAL COLOR HEAD: NORMOCEPHALIC, NONTRAUMATIC EYES: CLEAR CONJUNCTIVA ENT: OROPHARYNX NORMAL, EARS NORMAL, NOSE NORMAL NECK: SUPPLE, NONTENDER CHEST AND RESPIRATORY: AIRWAY PATENT, NO RESPIRATORY DISTRESS, NO ACCESSORY MUSCLE USE HEART: REGULAR RATE/RHYTHM ABDOMEN: SOFT, NONTENDER, NO ORGANOMEGALY, QUIET BOWEL SOUNDS VASCULAR: NORMAL PERIPHERAL PULSES, NORMAL CAPILLARY REFILL. MUSCULOSKELETAL: NORMAL RANGE OF MOTION, NONTENDER BACK NEUROLOGIC: ALERT AND ORIENTED ?3, POLICY ADVISOR IS NORMAL TESTED, NO GROSS MOTOR DEFICIT Course Vital Signs Vital signs: Vital Signs Temperature 36.9 C 12/28/24 12:49 Pulse Rate 104 H 12/28/24 12:49 Respiratory Rate 17 12/28/24 12:49 Blood Pressure 141/68 H 12/28/24 12:49 Pulse Oximetry 98 12/28/24 12:49 Oxygen Delivery Room Air 12/28/24 12:49 Temperature 36.9 C 12/28/24 12:49 Pulse Rate 104 H 12/28/24 12:49 Respiratory Rate 17 12/28/24 12:49 Blood Pressure 141/68 H 12/28/24 12:49 Pulse Oximetry 98 12/28/24 12:49 Oxygen Delivery Room Air 12/28/24 12:49 MDM - Female Genitourinary MDM Narrative Medical decision making narrative: PATIENT PRESENTS WITH URINARY TRACT INFECTION LIKE SYMPTOMS VITAL SIGNS ARE STABLE PHYSICAL EXAMINATION SLIGHT SUPRAPUBIC TENDERNESS URINALYSIS SHOWED EVIDENCE OF INFECTION DISCHARGED ON CIPRO. THE PT WAS DISCHARGED TO HOME.THE PT,S CONDITION UPON DISCHARGE WAS FAIR,EDUCATION WAS PROVIDED TO THE PT IN REFERENCE TO THE FINAL IMPRESSION,DISCHARGE STUDY RESULTS,TREATMENT,PROGNOSIS AND NEED FOR FOLLOW UP . Differential Diagnosis Differential diagnosis: Likely urinary tract infection, cystitis and other Lab Data Attestation: I reviewed the patient's lab results. Labs: Lab Results 11/01/25 Range/Units 12:54 Urine Color Yellow (Yellow) Urine Appearance Turbid H (Clear) Urine pH 5.5 (5.0-9.0) Ur Specific [place] 1.016 (1.001-1.035) Urine Protein 3+ H (Negative) mg/dL Urine Glucose (UA) Negative (Negative) mg/dL Urine Ketones Negative (Negative) mg/dL Ur Blood (Man) 1+ H (Negative) Urine Nitrate Negative (Negative) Urine Bilirubin Negative (Negative) Urine Urobilinogen 0.2 (<2.0) mg/dL Add Ur Microanalysis Reviewed Leukocyte Esterase Rfl 3+ H (Negative) SCARLET/UL Urine RBC 0-2 (0-2) /hpf Urine WBC >100 H (0-3) /hpf Ur Squamous Epith Cells None seen (Few) /hpf Urine Bacteria 4+ H /hpf Urine Casts 3-5 Critical Care Time Critical Care Time Critical Care Time: No Discharge Plan Discharge Clinical Impression: Urinary tract infection Patient Disposition: Home Condition: Stable Instructions: Antibiotic Form, Urinary Tract Infection in Women (ED) Additional Instructions: RETURN IF SYMPTOMS ARE WORSENING , CALL YOUR FAMILY PHYSICIAN FOR APPOINTMENT, TAKE TYLENOL NEEDED FOR ACHES AND PAIN, CONTINUE HOME MEDICATIONS. Patient Language: Spanish Prescriptions: New amoxicillin-pot clavulanate [Augmentin] 500-125 mg tablet 1 tablet PO Q8H Qty: 21 0RF No Action multivitamin Tablet 1 tablet PO DAILY cholecalciferol (vitamin D3) 5,000 unit tablet 5,000 unit PO DAILY ferrous sulfate 325 mg (65 mg iron) tablet 325 mg PO BID calcium carbonate 600 mg calcium (1,500 mg) tablet 1,200 mg PO DAILY leflunomide 20 mg tablet 20 mg PO DAILY rivaroxaban 2.5 mg tablet 2.5 mg PO BID ascorbic acid (vitamin C) 1 tablet PO DAILY metoprolol succinate 25 mg tablet extended release 24 hr 25 mg PO DAILY Qty: 90 0RF hydroxychloroquine [Plaquenil] 200 mg tablet 200 mg PO BID aspirin [Aspirin Childrens] 81 mg tablet,chewable 81 mg PO DAILY atorvastatin 40 mg tablet 40 mg PO HS Patient Comments: . glimepiride 4 mg tablet 4 mg PO BID [id number]-[id number]-tge-jcs-eaor oil 1,050-1,200 mg Capsule 1 cap PO BID fluticasone propionate [Allergy Relief (fluticasone)] 50 mcg/actuation spray,suspension 1 - 2 spray NASAL BID esomeprazole magnesium [Nexium 24HR] 20 mg Capsule,Delayed Release(Dr/Ec) 20 mg PO DAILY insulin glargine U-300 conc [Toujeo SoloStar U-300 Insulin] 300 unit/mL (1.5 mL) insulin pen 55 unit SUBCUT HS Patient Comments: . Rx Instructions: 55-60 units furosemide 20 mg tablet 20 mg PO DAILY metformin 1,000 mg tablet 1,000 mg PO BID Qty: 180 0RF albuterol sulfate 90 mcg/actuation HFA aerosol inhaler 2 puff INHALATION Q4-6H PRN (Reason: shortness of breath) Qty: 18 2RF Patient Comments: .... levothyroxine 100 mcg tablet See Rx Instructions .ROUTE .COMPLEX Qty: 90 3RF Dose Instruction: TAKE 1 TABLET BY MOUTH DAILY Rx Instructions: TAKE 1 TABLET BY MOUTH DAILY gabapentin 300 mg capsule 300 mg PO BID Qty: 180 1RF Patient Comments: . duloxetine 20 mg capsule,delayed release(DR/EC) See Rx Instructions .ROUTE .COMPLEX Qty: 90 1RF Dose Instruction: TAKE 1 CAPSULE BY MOUTH DAILY Rx Instructions: TAKE 1 CAPSULE BY MOUTH DAILY Follow-up/Referrals: Charles Armendariz, [Primary Care Provider, Internal Medicine]
[2024-12-28 12:49] VITALS: BP 141/68; PULSE 104; RESP 17; TEMP 36.9; O2SAT 98
[2024-12-28 13:13] LABS: Add Urine Microscopic? YES; Appearance Urine Turbid (Clear); Glucose Urine UA Negative (Negative); Leukocyte Esterase Ur 3+ LEU/UL (Negative); Need Manual Microscopic Reviewed; Nitrate Urine Negative (Negative); Specific Grav Ur 1.016 (1.001-1.035)
[2024-12-28 13:46] VITALS: BP 137/89; PULSE 101; RESP 20; O2SAT 99
== END 2024-12-28 13:47 | disposition home or self-care (01) ==
PROVIDERS: Emergency Provider Emergency Medicine; PCP Internal Medicine
DX: R10.8A3 Suprapubic tenderness (principal); N39.0 Urinary tract infection, site not specified; Z87.891 Personal history of nicotine dependence
CPT/HCPCS: 81001; 87086; 87186; 99283

== ENCOUNTER 2025-01-24 14:25 | Emergency (ER) | payer OTHER, MEDICARE, BC, SELFPAY ==
--- OUTSIDE RECORDS SUMMARY | 2024-09-02 03:29 | XMS_ITS | Continuity of Care Document ---
Author Organization [facility] [place] Address [address] [place] [address] [place] [phone] Phone Care Team Providers Care Solution Analyst Name Role Phone Ford PT, DPT, Deborah Unavailable Unavaila ble Procedures Procedure Date Therapeutic Activities Neuromuscular Re-Ed Therapeutic Exercise Hot or Cold Pack Progress Note Therapeutic Activities Neuromuscular Re-Ed Therapeutic Activities Neuromuscular Re-Ed Therapeutic Exercise Therapeutic Activities Neuromuscular Re-Ed Therapeutic Exercise Hot or Cold Pack Progress Note Therapeutic Activities Neuromuscular Re-Ed Therapeutic Exercise Hot or Cold Pack Therapeutic Activities Neuromuscular Re-Ed Therapeutic Activities Neuromuscular Re-Ed Remote therapeutic monitor monthly mgmt m Remote therapeutic monitor monthly mgmt add m Therapeutic Activities Neuromuscular Re-Ed Hot or Cold [...] Activities Therapeutic Exercise Neuromuscular Re-Ed Therapeutic Activities Therapeutic Exercise Neuromuscular Re-Ed Therapeutic Activities Therapeutic Exercise Neuromuscular Re-Ed Neuromuscular Re-Ed Therapeutic Activities Doc neg elder mal no plan Doc neg elder mal no plan Therapeutic Activities Neuromuscular Re-Ed PT Evaluation Moderate Complexity Progress Note Therapeutic Activities Therapeutic Exercise Neuromuscular Re-Ed Manual Therapy Hot or Cold Pack Therapeutic Exercise Hot or Cold Pack Neuromuscular Re-Ed Therapeutic Activities Therapeutic Exercise Therapeutic Activities Neuromuscular Re-Ed Hot or Cold Pack Neuromuscular Re-Ed Manual Therapy Therapeutic Activities Hot or Cold Pack Therapeutic Activities Neuromuscular Re-Ed Manual Therapy Hot or Cold Pack Neuromuscular Re-Ed Manual Therapy Therapeutic Activities Hot or Cold Pack Therapeutic Activities Therapeutic Exercise Manual Therapy Hot or Cold Pack Manual Therapy Hot or Cold Pack Therapeutic Exercise Therapeutic Activities Progress Note Therapeutic Activities Therapeutic Exercise Manual Therapy Hot or Cold Pack Therapeutic Activities Hot or Cold Pack Therapeutic Exercise Manual Therapy Neuromuscular Re-Ed Therapeutic Activities Hot or Cold Pack Manual Therapy Therapeutic Activities Therapeutic Exercise Manual Therapy Hot or Cold Pack Therapeutic Activities Manual Therapy Hot or Cold Pack Therapeutic Exercise Hot or Cold Pack Neuromuscular Re-Ed Manual Therapy Therapeutic Activities Therapeutic Exercise Therapeutic Activities Hot or Cold Pack Therapeutic Exercise Manual Therapy Therapeutic Activities Neuromuscular Re-Ed Hot or Cold Pack Manual Therapy Therapeutic Activities Manual Therapy Neuromuscular Re-Ed Hot or Cold Pack Manual Therapy Hot or Cold Pack Neuromuscular Re-Ed Therapeutic Activities Therapeutic Activities Manual Therapy Progress Note Neuromuscular Re-Ed Hot or Cold Pack Therapeutic Activities Therapeutic Exercise Neuromuscular Re-Ed Manual Therapy Hot or Cold Pack Therapeutic Activities Neuromuscular Re-Ed Therapeutic Exercise Hot or Cold Pack Manual Therapy Therapeutic Activities Therapeutic Exercise Hot or Cold Pack Manual Therapy Therapeutic Activities Manual Therapy Therapeutic Exercise Hot or Cold Pack Therapeutic Activities Therapeutic Exercise Manual Therapy Hot or Cold Pack Therapeutic Activities Therapeutic Exercise Hot or Cold Pack Manual Therapy Neuromuscular Re-Ed Manual Therapy Therapeutic Activities Therapeutic Exercise Hot or Cold Pack Therapeutic Activities Therapeutic Exercise Neuromuscular Re-Ed Manual Therapy Hot or Cold Pack OT Re-Evaluation Therapeutic Activities Neuromuscular Re-Ed Therapeutic Exercise Manual Therapy Hot or Cold Pack Therapeutic Activities Therapeutic Exercise Hot or Cold Pack Manual Therapy Progress Note Therapeutic Activities Hot or Cold Pack Manual Therapy Therapeutic Exercise Therapeutic Activities Therapeutic Exercise Hot or Cold Pack Manual Therapy Therapeutic Activities Hot or Cold Pack Therapeutic Exercise Manual Therapy Therapeutic Exercise Therapeutic Activities Hot or Cold Pack Manual Therapy Therapeutic Activities Hot or Cold Pack Manual Therapy Therapeutic Activities Neuromuscular Re-Ed Hot or Cold Pack Therapeutic Exercise Therapeutic Activities Therapeutic Exercise Neuromuscular Re-Ed Hot or Cold Pack Therapeutic Exercise Neuromuscular Re-Ed Therapeutic Activities Hot or Cold Pack Neuromuscular Re-Ed Hot or Cold Pack Therapeutic Activities Therapeutic Exercise Progress Note Neuromuscular Re-Ed Therapeutic Activities Therapeutic Exercise Manual Therapy Hot or Cold Pack Therapeutic Exercise Therapeutic Activities Neuromuscular Re-Ed Hot or Cold Pack Manual Therapy Hot or Cold Pack Manual Therapy Neuromuscular Re-Ed Therapeutic Exercise Therapeutic Activities Therapeutic Exercise Therapeutic Activities Neuromuscular Re-Ed Hot or Cold Pack Manual Therapy Therapeutic Activities Therapeutic Exercise OT Evaluation Low Complexity Manual Therapy Therapeutic Exercise Orthotic Mgmt and Training Long Arm Splint wrist included Advance Directives Directive Yes / No Effective Date File Name No Information Encounters Encounter Description Practice Location Reason(s) For Visit Diagnoses Date Provider Providers Copied on Encounter [facility], [id number], tel:[phone] [place] No Information 5 Youngblood Deborah. . [facility], [id number], tel:[phone] [place] No Information 5 Youngblood Deborah. . Referring Provider: Caleb Martinez [address] [place] [address] [address] [address], [place], [address]. [facility], [id number], tel:[phone] [place] No Information 5 Youngblood Deborah. . Referring Provider: Caleb Martinez [address] [place] [address] [address], [place], [address]. [facility], [id number], tel:[phone] [place] No Information 5 Magige Clay. . Referring Provider: Caleb Martinez [address] [place] [address] [address], [place], [address]. [facility] [address], [place], [place], [id number], tel:[phone] [place] No Information 5 Youngblood Deborah. . Referring Provider: Caleb Martinez [address] [place] [address] [address], [place], [address]. [facility], [address] [facility] [address], [place], [address], [place] tel:[phone] [place] No Information 5 Youngblood Deborah. . Referring Provider: Caleb Martinez, [address] [place] [address] [address], [place], [address]. [facility], [address] [facility] [address], [place], [place], [address], [place] tel:[phone] [place] No Information May-0 5 Youngblood Deborah. . Referring Provider: Caleb Martinez, [address] [place] [address] [address], [place], [address]. [facility], [address] [facility] [address], [place], [address], [place] tel:[phone] [place] No Information Apr-3 5 Youngblood Deborah. . Referring Provider: Caleb Martinez, [address] [place] [address] [address], [place], [address]. [facility], [address] [facility] [address], [place], [place], [id number], [place] tel:[phone] [place] Pain in left shoulderStiffn ess of left shoulder, not elsewhere classifiedMusc le weakness (generalized) Apr-3 5 Youngblood Deborah. . Referring Provider: Caleb Martinez, [address] [place] [address] [address], [place], [address]. [facility], [address] [facility] [address], [place], [address], [place] tel:[phone] [place] No Information Apr-2 5 Niall Alas. [address] [facility], [address], [place], [address], [place]. tel: [phone] Referring Provider: Caleb Martinez, [address] [place] [address] [address], [place], [address]. [facility], [address] [facility] [address], [place], [place], [address], [place] tel:[phone] [place] No Information Apr-2 5 Youngblood Deborah. . Referring Provider: Caleb Martinez, [address] [place] [address] [address], [place], [address]. [facility] [address] [facility], [place], [address], [place] tel:[phone] [place] No Information Mar-1 9-202 5 Youngblood Deborah. . Referring Provider: Caleb Martinez, [address] [place] [address] [address], [place], [address]. [facility] [address] [facility], [place], [address], [place] tel:[phone] [place] No Information Mar-1 7-202 5 Youngblood Deborah. . Referring Provider: Caleb Martinez, [address] [place] [address] [address], [place], [address]. [facility] [address] [facility], [place], [address], tel:[phone] [place] No Information Mar-1 2-202 5 Youngblood Deborah. . Referring Provider: Caleb Martinez, [address] [place] [address] [address], [place], [address]. [facility], [address] [facility], [place], [address], [place] tel:[phone] [place] No Information Mar-1 0-202 5 Youngblood Deborah. . Referring Provider: Caleb Martinez, [address] [place] [address] [address], [place], [address]. [facility] [address] [facility], [place], [place], [address], [place] tel:[phone] [place] No Information Mar-0 7-202 5 Youngblood Deborah. . Referring Provider: Caleb Martinez, [address] [place] [address] [address], [place], [address]. [facility] [address] [facility], [place], [address], [place] tel:[phone] [place] No Information Mar-2 8-202 5 Youngblood Deborah. . Referring Provider: Caleb Martinez, [address] [place] [address] [address], [place], [address]. [facility] [address], [place], [address], [place] tel:[phone] [place] No Information 5 Youngblood Deborah. . Referring Provider: Caleb Martinez, [address] [place] [address] [address], [place], [address]. [facility], [address] [facility], [place], [address], [place] tel:[phone] [place] No Information 5 Youngblood Deborah. . Referring Provider: Caleb Martinez, [address] [place] [address] [address], [place], [address]. [facility], [address] [facility], [place], [address], [place] tel:[phone] [place] No Information 5 Youngblood Deborah. . Referring Provider: Caleb Martinez, [address] [place] [address] [address], [place], [address]. [facility], [address] [facility] [address], [place], [address], [place] tel:[phone] [place] No Information 5 Youngblood Deborah. . Referring Provider: Caleb Martinez [address] [place] [address] [address], [place], [address]. [facility], [address] [facility], [place], [address], [place] tel:[phone] [place] No Information 2 Muehl Bishop. [address] [facility], [address], [place], [place], [facility], [place]. tel: [phone] Referring Provider: Caleb Martinez [address] [place] [address] [address], [place], [address]. [facility], [address] [facility], [place], [address], [place] tel:[phone] [place] No Information 2 Muehl Bishop. [address] [facility], [address], [place], [address], [place]. tel: [phone] Referring Provider: Caleb Martinez [address], [place], [address]. [facility], [address] [place], [place] [address], [place], [address], tel:[phone] [place] No Information Nov-1 -202 2 Muehl Bishop. [address] [place] [address], [address], [place], [facility], [place]. tel: [phone] Referring Provider: Caleb Martinez, [address] [place] [address] [address], [place], [address]. [facility], [address] [place], [place] [address], [place], [address], [place] tel:[phone] [place] No Information Dec-1 1- 2 Muehl Bishop. [address] [place] [address], [address], [place], [facility], [place]. tel: [phone] Referring Provider: Caleb Martinez, [address] [place] [address] [address], [place], [address]. [facility], [address] [facility] [address], [place], [address], tel:[phone] [place] No Information Nov-0 7- 2 Muehl Bishop. [address] [place] [address], [address], [place], [facility], [place]. tel: [phone] Referring Provider: Caleb Martinez, [address] [place] [address] [address], [place], [address]. [facility] [address] [facility], [place], [address], [place] tel:[phone] [place] No Information Nov-0 202 2 Muehl Bishop. [address] [place] [address], [address], [place], [facility], [place]. tel: [phone] Referring Provider: Caleb Martinez, [address] [place] [address] [address], [place], [address]. [facility], [address] [facility], [place], [address], [place] tel:[phone] [place] No Information Nov-0 2-202 2 Muehl Bishop. [address] [place] [address], [address], [place], [facility], [place]. tel: [phone] Referring Provider: Caleb Martinez, [address] [place] [address] [address], [place], [address]. [facility] [address] [facility], [place], [address], tel:[phone] [place] No Information Nov- 6-202 2 Muehl Bishop. [address] [place] [address], [address], [place], [facility], [place]. tel: [phone] Referring Provider: Caleb Martinez, [address] [place] [address] [address], [place], [address]. [facility] [address] [facility], [place], [address], tel:[phone] [place] No Information Nov- 4- 2 Muehl Bishop. [address] [place] [address], [address], [place], [facility], [place]. tel: [phone] Referring Provider: Caleb Martinez, [address] [place] [address] [address], [place], [address]. [facility], [address] [facility], [place], [address], [place] tel:[phone] [place] No Information Nov- 7 2 Muehl Bishop. [address] [place] [address], [address], [place], [facility], [place]. tel: [phone] Referring Provider: Caleb Martinez, [address] [place] [address] [address], [place], [address]. [facility] [address], [place], [address], [place] tel:[phone] [place] No Information Nov- 2-202 2 Muehl Bishop. [address] [place] [address], [address], [place], [facility], [place]. tel: [phone] Referring Provider: Caleb Martinez, [address] [place] [address] [address], [place], [address]. [facility] [address] [facility], [place], [address], [place] tel:[phone] [place] No Information Oct-1 0-202 2 Muehl Bishop. [address] [place] [address], [address], [place], [address], [place]. tel: [phone] Referring Provider: Caleb Martinez, [address] [place] [address] [address], [place], [address]. [facility], [address] [place], [place] [address], [place], [address], tel:[phone] [place] No Information Oct-0 7-202 2 Muehl Bishop. [address] [place] [address], [address], [place], [address], [place]. tel: [phone] Referring Provider: Caleb Martinez, [address] [place] [address] [address], [place], [address]. [facility], [address] [place] [address]e [address], [place], [address], tel:[phone] [place] No Information Oct-0 5-202 2 Muehl Bishop. [address] [place] [address], [address], [place], [facility], [place]. tel: [phone] Referring Provider: Caleb Martinez, [address] [place] [address] [address], [place], [address]. [facility], [address] [place], [place] [address] [address], [place], [address], tel:[phone] [place] No Information Sep-2 8-202 2 Muehl Bishop. [address] [place] [address], [address], [place], [facility], [place]. tel: [phone] Referring Provider: Caleb Martinez, [address] [place] [address] [address], [place], [address]. [facility] [address] [place], [place] [address], [place], [address], tel:[phone] [place] No Information Sep-2 6-202 2 Muehl Bishop. [address] [place] [address], [address], [place], [address], [place]. tel:[phone] Referring Provider: Caleb Martinez, [address] [place] [address] [address], [place], [address]. [facility], [address] [place], [place] [address], [place], [place], [address], tel:[phone] [place] No Information Sep-2 - 2 Muehl Bishop. [address] [place] [address], [address], [place], [facility], . tel: [phone] Referring Provider: Caleb Martinez, [address] [place] [address] [address], [place], [address]. [facility] [address] [place], [place] [address], [place], [place], [address], tel:[phone] [place] No Information Sep-1 2 Muehl Bishop. [address] [place] [address], [address], [place], [facility], . tel: [phone] Referring Provider: Caleb Martinez, [address] [place] [address] [address], [place], [address]. [facility] [address] [place], [place] [address]e [address], [place], [address], tel:[phone] [place] No Information Sep-1 2 Muehl Bishop. [address] [place] [address], [address], [place], [facility], . tel: [phone] Referring Provider: Caleb Martinez, [address] [place] [address] [address], [place], [address]. [facility] [address] [facility] [address], [place], [address], tel:[phone] [place] No Information Sep-1 2-202 2 Abdoul Romero. . Referring Provider: Caleb Martinez, [address] [place] [address] [address], [place], [address]. [facility] [address] [facility], [place], [address], tel:[phone] [place] Urge incontinence Sep-0 8 2 Muehl Bishop. [address] [facility], [address], [place], [facility], . tel: [phone] Referring Provider: Caleb Martinez, [address] [place] [address] [address], [place], [address]. [facility], [address], [place], [address], [place] tel:[phone] [place] No Information Sep-2 4-202 1 Heslin Lopez. . Referring Provider: Perez Tinsley, Elisabeth[address], [place], [address]. tel:[phone] [place] [address] [address], [place], [place], [address], [place] tel:[phone] [place] No Information Sep-2 0-202 1 Heslin Lopez. . Referring Provider: Perez Tinsley, A[address], [place], [address]. tel:[phone] [place] [address], [address], [place], [place], [address], [place] tel:[phone] [place] No Information Sep-1 0-202 1 Heslin Lopez. . Referring Provider: Perez Tinsley, A[address], [place], [address]. tel:[phone] [place], [place] [address] [address], [place], [address], [place] tel:[phone] [place] No Information Sep-0 8-202 1 Heslin Lopez. . Referring Provider: Perez Tinsley, [address], [place], [address]. tel:[phone] [place], [place] [address] [address], [place], [place], [address], [place] tel:[phone] [place] No Information Sep-0 3-202 1 Heslin Lopez. . Referring Provider: Perez Tinsley, [address], [place], [address]. tel:[phone] [place], [place] [address] [address], [place], [place], [address], tel:[phone] [place] No Information 1 Heslin Lopez. . Referring Provider: Perez Tinsley, [address], [place], [address]. tel:[phone] [place] [address], [address] [place], [place] [address], [place], [place], [address], tel:[phone] [place] No Information 1 Heslin Lopez. . Referring Provider: Perez Tinsley, [address], [place], [address]. tel:[phone] [place] [address] [address] [facility], [place], [address], tel:[phone] [place] No Information 1 Heslin Lopez. . Referring Provider: Perez Tinsley, [address], [place], [address]. tel:[phone] [place] [address], [facility] [address], [place], [place], [address], tel:[phone] [place] No Information 1 Heslin Loepz. . Referring Provider: Perez Tinsley, [address], [place], [address]. tel:[phone] [place] [address], [address], [place], [place], [address], [place] tel:[phone] [place] No Information 1 Heslin Lopez. . Referring Provider: Perez Tinsley, [address], [place], [address]. tel:[phone] [place] [address], [address], [place], [place], [address], tel:[phone] [place] No Information 1 Derrick Cyndie. . Referring Provider: Perez Tinsley, [address], [place], [address]. tel:[phone] [place] [address], [address], [place], [place], [address], tel:[phone] [place] No Information 0 1 Heslin Lopez. . Referring Provider: Perez Tinsley, Elisabeth[address], [place], [address]. tel:[phone] [place] [address], [address], [place], [place], [address], [place] tel:[phone] [place] No Information 0 1 Heslin Lopez. . Referring Provider: Perez Tinsley, A[address], [place], [address]. tel:[phone] [place] [address], [address], [place], [place], [address], [place] tel:[phone] [place] No Information 0 1 Heslin Lopez. . Referring Provider: Perez Tinsley, [address], [place], [address]. tel:[phone] [place] [address], [address] [facility], [place], [place], [address], [place] tel:[phone] [place] No Information 1 Heslin Lopez. . Referring Provider: Perez Tinsley, [address], [place], [address]. tel:[phone] [place] [address], [address], [place], [place], [address], [place] tel:[phone] [place] No Information 1 Heslin Lopez. . Referring Provider: Perez Tinsley, Elisabeth[address], [place], [address]. tel:[phone] [place], [place] [address] [address], [place], [address], [place] tel:[phone] [place] No Information 1 Heslin Lopez. . Referring Provider: Perez Tinsley, A[address] [facility] [address]A, [place], [address]. tel:[phone] [place], [place] [address] [address], [place], [place], [address], [place] tel:[phone] [place] No Information 1 Heslin Lopez. . Referring Provider: Perez Tinsley, [address] [facility] [address]A, [place], [address]. tel:[phone] [place] [address], [address], [place], [address], [place] tel:[phone] [place] No Information 1 Heslin Lopez. . Referring Provider: Perez Tinsley, [address] [facility] [address]A, [place], [address]. tel:[phone] [place], [place] [address] [address], [place], [place], [address], [place] tel:[phone] [place] No Information 1 Heslin Lopez. . Referring Provider: Perez Tinsley, [address], [place], [address]. tel:[phone] [place], [place] [address] [address], [place], [place], [address], [place] tel:[phone] [place] No Information 1 Heslin Lopez. . Referring Provider: Perez Tinsley, Elisabeth[address] 6[address]/6B[address]12A, [place], [address]. tel:[phone] [place], [place] [id number] [address], [place], [place], [id number], [place] tel:[phone] [place] No Information 0 7 1 Heslin Lopez. . Referring Provider: Perez Tinsley, Aron [facility] [address] 6[address]/6B/12A, [place], [address]. tel:[phone] [place] [address], [address] [place], [place] [address], [place], [place], [id number], tel:[phone] [place] No Information Jul- 1 Heslin Lopez. . Referring Provider: Perez Tinsley, Aron [facility] [address] 6A/6B/12A, [place], [address]. tel:[phone] [place], [place] [address], [place], [place], [id number], tel:[phone] [place] No Information 1 Derrick Cyndie. . Referring Provider: Perez Tinsley, Aron [facility] [address] 6A/6B/12, [place], [address]. tel:[phone] [place] [address] [address], [place], [place], [id number], tel:[phone] [place] No Information 1 Redohl Laura. . Referring Provider: Perez Tinsley, Aron [facility] [address] 6A/6B/12A, [place], [address]. tel:[phone] [place] [address] [address], [place], [place], [id number], [place] tel:[phone] [place] No Information 1 Heslin Lopez. . Referring Provider: Aron Amaya [facility] [address] 6A/6B/12A, [place], [address]. tel:[phone] [place] [address], [address] [place] [address] [address], [place], [place], [address], tel:[phone] [place] No Information Jul- 1- 1 Heslin Lopez. . Referring Provider: Perez Tinsley, [address] [facility] [address] 6A/6B/12A, [place], [address]. tel:[phone] [place] [place] [address], [place], [place], [address], tel:[phone] [place] No Information 1 Heslin Lopez. . Referring Provider: Perez Tinsley, [address] [facility] [address] 6A/6B/12A, [place], [address]. tel:[phone] [place], [place] [address], [place], [place], [address], tel:[phone] [place] No Information 1 Heslin Lopez. . Referring Provider: Perez Tinsley, Aron [facility] [address] 6A/6B/12, [place], [address]. tel:[phone] [place], [place] [address], [place], [place], [address], tel:[phone] [place] No Information 1 Heslin Lopez. . Referring Provider: Perez Tinsley, Aron [facility] [address] 6A/6B/12, [place], [address]. tel:[phone] [place], [place] [address], [place], [place], [address], tel:[phone] [place] No Information 1 Heslin Lopez. . Referring Provider: Perez Tinsley, Elisabeth1 [facility] [address] 6A/6B/12A, [place], [address]. tel:[phone] [place], [place] [address], [place], [place], [address], tel:[phone] [place] No Information 1 Heslin Lopez. . Referring Provider: Perez Tinsley, [address] [facility] [address] 6A/6B/12A, [place], [address]. tel:[phone] [place] [address], [address], [place], [place], [address], [place] tel:[phone] [place] No Information Apr-1 - 1 Heslin Lopez. . Referring Provider: Perez Tinsley, Aron [facility] [address] 6A/6B/12A, [place], [address]. tel:[phone] [place] [address] [address], [place], [place], [address], [place] tel:[phone] [place] No Information Apr-0 - 1 Heslin Lopez. . Referring Provider: Perez Tinsley, Aron [facility] [address] 6A/6B/12, [place], [address]. tel:[phone] [place] [address], [address] [facility], [place], [address], tel:[phone] [place] No Information Apr-0 1 Heslin Lopez. . Referring Provider: Perez Tinsley, Aron [facility] [address] 6A/6B/12, [place], [address]. tel:[phone] [place] [address], [address] [facility], [place], [address], [place] tel:[phone] [place] No Information Apr-0 1 Shayne Chayo. . Referring Provider: Aron Amaya [facility] [address] 6A/6B/12A, [place], [address]. tel:[phone] [place] [address], [address], [place], [place], [address], [place] tel:[phone] [place] No Information Mar-2 1 Lipscomb Chayo. . Referring Provider: Aron Amaya [facility] [address] 6A/6B/12A, [place], [address]. tel:[phone] [place] [address], [address], [place], [place], [address], [place] tel:[phone] [place] No Information Mar-2 6- 1 Shayne Chayo. . Referring Provider: Perez Tinsley, Aron [address] 6[address]/6B/12A, [place], [address]. tel:[phone] [place] [address], [address] [place], [place] [address]uite [facility], [place], [place], [address], tel:[phone] [place] No Information Mar-2 - 1 Shayne Chayo. . Referring Provider: Perez Tinsley, Aron [address] 6A/6B/12A, [place], [address]. tel:[phone] [place] [address], [place], [place], [address], tel:[phone] [place] No Information Mar-1 1 Lipscomb Chayo. . Referring Provider: Perez Tinsley, Aron [facility] [address] 6A/6B/12A, [place], [address]. tel:[phone] [place] [address], [address] [place], [place] [address], [place], [place], [address], [place] tel:[phone] [place] No Information Mar-1 - 1 Shayne Chayo. . Referring Provider: Perez Tinsley, Aron [address] 6[address]/6B/12A, [place], [address]. tel:[phone] [place], [place] [address]e [facility], [place], [place], [address], [place] tel:[phone] [place] No Information Mar-1 - 1 Shayne Chayo. . Referring Provider: Aron Amaya [address] 6[address]/6B/12A, [place], [address]. tel:[phone] [place] [address], [address] [facility], [place], [place], [address], tel:[phone] [place] No Information Mar-0 - 1 Lipscomb Chayo. . Referring Provider: Aron Amaya [address] 6A/6B/12A, [place], [address]. tel:[phone] [facility], [address], [place], [place], [address], [place] tel:[phone] [place] No Information Irwin Bridget Maurer . Referring Provider: Perez Tinsley, [address] [facility] 6A/6B/12A, [place], [address]. tel:[phone] Family History Family Member Type Diagnosis Age At Onset No Information Payers Payer name Insurance type Covered republican ID Priti mcdonnell(s) [employer] Formula CI [id number] Medicare [place] [id number] Social History Type Description Quantity Date Captured [...] Ordered: Urology (related to Urge incontinence) ordered History Of Present Illness Encounter Date Complaint [...]
[2025-01-24] VITALS (8 sets, daily range): BP systolic 104–152; BP diastolic 52–62; PULSE 91–106; RESP 17–23; TEMP 37.2–38.2; O2SAT 96–100
--- NOTE | ~2025-01-24 | CT_ITS ---
EXAMINATION: CT abdomen pelvis wo con, 01/24/2025 15:45 PROCESSING TECH HISTORY: RLQ, n/v, f/v x2d COMPARISON: No comparisons available. TECHNIQUE: CT scan of the abdomen and pelvis was performed without IV contrast. One or more of the following dose reduction techniques were used: automated exposure control, adjustment of the mA and/or kV according to patient size, use of iterative reconstruction technique. Unless otherwise stated, incidental findings do not require dedicated follow up imaging FINDINGS: CT abdomen: LUNG BASES: Lung bases demonstrate partially imaged calcified right hilar lymphadenopathy with calcified granulomas probably sequelae of previous granulomatous disease. LIVER: There are calcified liver granulomas. SPLEEN: The spleen there is a partially calcified probable large complex cyst 3 x 3.5 cm incompletely evaluated.. KIDNEYS: Right Kidney: Unremarkable. No calculi. No hydronephrosis. Left Kidney: Unremarkable. No calculi. No hydronephrosis ADRENAL GLANDS: Unremarkable. PANCREAS: Unremarkable. GALLBLADDER/BILIARY: Postcholecystectomy. STOMACH AND ESOPHAGUS: Visualized stomach and esophagus within normal limits. BOWEL/MESENTERY: Moderate fecal content, no colitis or diverticulitis. Appendix normal. No stranding within the mesentery. There are thickened or dilated loops of small bowel. ADENOPATHY/RETROPERITONEUM: No lymphadenopathy. AORTA/VASCULATURE: Normal caliber aorta. FREE FLUID OR FREE AIR: None. CT pelvis: SOLID ORGANS/REPRODUCTIVE: Unremarkable. BLADDER: There is air within the bladder which may relate to previous instrumentation. Mild thickening of the bladder wall is noted. OSSEOUS STRUCTURES: No acute osseous abnormality.No suspicious lesions. OVERLYING SOFT TISSUES: Postsurgical changes noted in the abdominal wall with diastases of the abdominal wall. IMPRESSION: 1. Probable cystitis. 2. Incidental findings detailed above Reviewed, dictated and finalized at location P. [facility]
--- OUTSIDE RECORDS SUMMARY | 2025-01-24 14:45 | XMS_ITS | Clinical Summary ---
Author Organization [facility] Address [address] [facility] [place] [address] Phone Care Team Providers Care Linux Support Engineer Name Role Phone Charles Armendariz DO Primary [...] Tablet Take 1 Tab by mouth daily. [id number] 1 Tab 0 6 Active azithromycin (ZITHROMAX) [...] Virus (RSV) Immunization (Adult) (1 - Risk 50-74 years 1-dose series) 2002 Medicare Initial AWV [id number] 06/27/2016 DEXA Bone Density 09/24/2023 09/23/2021 Influenza Immunization (#1) 10/28/20240 10/2022, 12/09/2019, 05/27/2015, Additional history exists SARS-COV-2 Immunization ( season) 2024 09/28/2021, 03/22/2021, 06/10/2020, Additional history exists DTaP/Tdap/Td [...] MEDICARE [facility] Care Teams Linux Support Engineer Relationship Specialty Start Date End Date Charles Armendariz DO [facility] [place] [address] PCP - General Internal Medicine 11/05/15
--- OUTSIDE RECORDS SUMMARY | 2025-01-24 14:45 | XMS_ITS | Clinical Summary ---
Author Organization [facility] Address [address] [place] [address] Care Team Providers Care Home Stereo Equipment Installer Name Role Phone Charles Armendariz DO Primary Care Provider [phone] David Vanegas MD Unavailable [phone] Allergies Active Allergy Reactions Criticality Noted Date Comments Ciprofloxacin Nausea only Low 09/08/2022 Daptomycin Diarrhea Low 06/29/2020 Doxycycline Unknown Low 09/19/2019 Canagliflozin Diarrhea Low 10/28/2021 Iodine Strong (Lugols) Unknown 08/13/2024 Empagliflozin Diarrhea Low 04/21/2021 Lisinopril Cough Low 08/13/2018 Semaglutide Diarrhea High 01/27/2021 Povidone-Iodine Rash Medium 05/05/2017 Msczioq-Emx-Wgg Reductase Inhibitors Muscle pain Medium 11/05/2020 Trimethoprim Unknown 08/13/2024 Valsartan Hives,Urticaria High 10/08/2015 Vancomycin Hives Medium Medications blood glucose diagnostic (ONETOUCH ULTRA TEST) strip test 1 by finger stick BS route before meals and bed time 400 strip 3 5 Active levothyroxine (SYNTHROID, LEVOTHROID) 100 mcg tablet take 1 tablet by oral route every day 0 0 5 Active lancets (onetouch ultrasoft) misc test blood sugar 4 times every day 400 each 3 5 Active ferrous sulfate 325 mg (65 mg of elemental iron) tabletIndicatio ns:Iron Deficiency Anemia Take 1 tablet (325 mg total) by mouth 2 (two) times a day [address] (CYMBALTA) 20 mg capsuleIndicati ons:Anxiety with Depression Take 1 capsule (20 mg total) by mouth every morning Active fluticasone propionate (FLONASE) 50 mcg/actuation nasal sprayIndication s:Allergic Rhinitis Administer 2 sprays into each nostril every morning Active cholecalciferol (VITAMIN D-3) 5,000 unit tabletIndicatio ns:Prevention of Vitamin D Deficiency Take 1 tablet (5,000 Units total) by mouth every morning Active qs-diqogvw-iwc- iron fm-FA-vitK 18 mg-400 mcg- 25 mcg tabletIndicatio ns:Vitamin Deficiency Prevention Take 0.5 tablets by mouth 2 (two) times a day 2 Active metoprolol XL (TOPROL-XL) 25 mg extended release tabletIndicatio ns:hypertension Take 1 tablet (25 mg total) by mouth every morning 1 Active gabapentin (NEURONTIN) 300 mg capsuleIndicati ons:Neuropathic Pain Take 1 capsule (300 mg total) by mouth 2 (two) times a day 1 Active blood glucose diagnostic (OneTouch Ultra Test) strip OneTouch Ultra Test strips Take 1 strip 4 times a day by miscell. route as directed for 90 days. Active estradioL (ESTRACE) 0.01 % (0.1 mg/gram) vaginal creamIndication s:Atrophy of Vulva Insert 4 g into the vagina as needed [address] (NexIUM) 20 mg capsuleIndicati ons:acid reflux Take 1 capsule (20 mg total) by mouth every morning Active albuterol HFA (PROVENTIL HFA,VENTOLIN HFA,PROAIR HFA) 90 mcg/actuation inhalerIndicati ons:Acute Asthma Attack Inhale 2 puffs as needed for wheezing or shortness of breath 3 Active ondansetron (ZOFRAN) 4 mg tablet Take 1 tablet (4 mg total) by mouth as needed for nausea or vomiting 3 Active insulin glargine (TOUJEO) 300 unit/mL (1.5 mL) pen for injectionIndica tions:type 2 diabetes mellitus Inject 60 Units under the skin nightly 30 mL 3 4 Active propylene glycol (SYSTANE COMPLETE OPHT)Indication s:dry [...] 2 (two) times a day as needed 4 Active furosemide (LASIX) 20 mg tablet 4 Active nitrofurantoin monohydrate (MACROBID) 100 mg capsule 4 Active aspirin 81 mg enteric coated tablet Take 1 tablet (81 mg total) by mouth daily Active pyridoxine (VITAMIN B-6) 50 mg tablet Take 1 tablet (50 mg total) by mouth daily 30 tablet 5 4 Active Additional Information Patient not taking.Reported on 01/13/2025 magnesium oxide (MAG-OX) 400 mg (241.3 mg elemental magnesium) tablet Take 1 tablet (400 mg total) by mouth daily Active fluticasone propion-salmete roL (ADVAIR DISKUS) 100-50 mcg/dose diskus inhaler Inhale 1 puff 2 (two) times a day 4 Active ascorbic acid (vitamin C) 250 mg tablet Take 1 tablet (250 mg total) by mouth daily Active traMADoL (ULTRAM) 50 mg tablet 5 Active mv,Ca,min-folic acid-vit K1 (Women's 50 Plus Advanced) 400-20 mcg tablet Take by mouth daily Active rifabutin (MYCOBUTIN) 150 mg capsule Take 2 capsules (300 mg total) by mouth daily Active BD Ultra-Fine Mini Pen Needle 31 gauge x 05/12 needleIndicatio ns:Type 2 diabetes mellitus with hyperglycemia, with long-term current use of insulin (HCC) USE TO INJECT INSULIN DAILY 100 each 3 5 Active glimepiride (AMARYL) 4 mg tabletIndicatio ns:Type 2 diabetes mellitus with hyperglycemia, with long-term current use of insulin (HCC) TAKE 1 TABLET BY MOUTH TWICE DAILY AFTER BREAKFAST AND DINNER 180 tablet 3 5 Active Xarelto 2.5 mg tablet Active hydroxychloroqu ine (PLAQUENIL) 200 mg tabletIndicatio ns:Rheumatoid Arthritis Take 1 tablet (200 mg total) by mouth 2 (two) times a day 180 tablet 1 5 Active atorvastatin (LIPITOR) 40 mg tabletIndicatio ns:Hyperlipidem ia associated with type 2 diabetes mellitus (HCC) TAKE 1 TABLET BY MOUTH EVERY NIGHT 90 tablet 5 Active leflunomide (ARAVA) 20 mg tablet TAKE 1 TABLET BY MOUTH DAILY 90 tablet 5 Active ciprofloxacin (CIPRO) 500 mg tablet TAKE 1 TABLET BY MOUTH TWICE DAILY FOR SYMPTOMS OR UTI 3 Discontin ued(Aller gic response) Active Problems Problem Noted Date Diagnosed Date PVD (peripheral vascular disease) 01/21/2025 Assessment & Plan (01/21/2025 8:12 AM SUPERINTENDENT PRODUCTION): No evidence of life-limiting claudication rest pain or wounds. Arterial Doppler ordered for further evaluation. Continue ASA statin therapy and good blood sugar control. LTBI (latent tuberculosis infection) 03/15/2024 Assessment & [...] symptoms. Assessment & Plan (03/15/2024 10:09 AM SUPERINTENDENT PRODUCTION): - Doing well on INH/B6 for LTBI, [...] diabetes vivek dill 10/24/2023 Assessment & Plan (01/21/2025 8:12 AM SUPERINTENDENT PRODUCTION): Stable continue Lipitor Assessment & Plan (12/25/2024 2:23 PM CDT): Chronic problem. Currently taking Atorvastatin 40mg. Last lipid panel: 04/30/24 LDL=50 TG=96 Assessment & Plan (08/13/2024 1:25 PM CDT): Chronic problem. Currently taking Atorvastatin 40mg. Last lipid panel: 04/30/24 LDL=50 TG=96 Assessment & Plan (04/30/2024 2:13 PM SUPERINTENDENT PRODUCTION): Chronic problem. Currently taking Atorvastatin 40mg. Last lipid panel: 03/09/23 LDL=37 XS=232. Will update labs. Does not mychart. Verified phone #/address to contact re: results. Assessment & Plan (10/24/2023 3:19 PM CDT): Chronic problem. Currently taking Atorvastatin 40mg. Last lipid panel: 03/09/23 LDL=37 LG=901. Positive TB test 09/19/2023 Assessment & Plan (01/01/2024 12:37 PM SUPERINTENDENT PRODUCTION): - Unable to tolerate rifabutin as she [...] CBC and CMP in 1 month at [facility] - Ok to start biologic [...] COPD. Assessment & Plan (03/09/2023 10:05 AM SUPERINTENDENT PRODUCTION): Discussed healthy diet and importance of regular [...] 03/22/2022 Assessment & Plan (03/22/2022 8:59 AM SUPERINTENDENT PRODUCTION): Chronic problem, stable. 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 Assessment & Plan (04/30/2024 2:14 PM SUPERINTENDENT PRODUCTION): Chronic problem. Currently taking levothyroxine 100mcg. Clinically [...] 1.23 Assessment & Plan (03/09/2023 9:54 AM SUPERINTENDENT PRODUCTION): Chronic problem. Currently taking levothyroxine 100mcg. 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 Currently taking Gabapentin 300mg bid. Reviewed foot care; needs to lotion daily. Aware to check feet nightly, not to go barefoot. Assessment & Plan (08/13/2024 1:25 PM CDT): Chronic problem. Currently taking Gabapentin 300mg bid. Reviewed foot care; needs to lotion daily. Aware to check feet nightly, not to go barefoot. Assessment & Plan (04/30/2024 2:13 PM SUPERINTENDENT PRODUCTION): Chronic problem. Currently taking Gabapentin 300mg bid. [...] barefoot. Assessment & Plan (03/09/2023 9:47 AM SUPERINTENDENT PRODUCTION): Chronic problem. Currently taking gabapentin. Aware to check feet nightly & not go barefoot. Assessment & Plan (09/08/2022 11:14 AM CDT): Chronic problem. Currently taking gabapentin. Aware to check feet nightly. Assessment & Plan (03/21/2022 8:54 AM SUPERINTENDENT PRODUCTION): Chronic problem. Currently taking gabapentin. Aware to check feet nightly. Assessment & Plan (05/13/2021 10:51 AM CDT): Foot care discussed Assessment & Plan (11/05/2020 2:29 PM CDT): Foot care discussed The patient does not feel that Neurontin helps of will discontinue Assessment & Plan (04/02/2020 1:40 PM SUPERINTENDENT PRODUCTION): On Neurontin Foot care discussed Assessment & Plan (10/19/2017 10:52 AM CDT): Foot care discussed On neurointin Advised on seeing foot dr. Hyperlipidemia 10/19/2017 Assessment & Plan (03/09/2023 9:48 AM SUPERINTENDENT PRODUCTION): Chronic problem. Current on atorvastatin 40mg daily. Last lipid panel: 11/04/21 LDL=26, YH=270. Will update labs today. Does not mychart. Verified phone #/address to contact re: results. Assessment & Plan (09/08/2022 11:14 AM CDT): Chronic problem. Current on atorvastatin 40mg daily. 11/04/21 LDL=26. No changes. Assessment & Plan (03/21/2022 8:53 AM SUPERINTENDENT PRODUCTION): Chronic problem. Current on atorvastatin 40mg daily. [...] Lipitor Assessment & Plan (04/02/2020 1:37 PM SUPERINTENDENT PRODUCTION): Goal of treatment , LDL cholesterol less [...] therapy. Assessment & Plan (03/12/2019 12:24 PM SUPERINTENDENT PRODUCTION): Goal of treatment , LDL cholesterol less [...] use of insulin 01/17/2017 Assessment & Plan (12/25/2024 3:10 PM CDT): Chronic problem, A1c uncontrolled and worsened from 7.9% 08/13/24 and now 8.2%. will send in Dexcom G7 to DME. Password/instruction given to dtr to help her set up account to share with our office. - Will make diet changes to decrease fruits/carbs & increase protein intake. Will stop -switch Toujeo from evening to morning. Only 1/2 dose tonight & then full dose tomorrow. -increase Toujeo from 65 to 68 units -will stop metformin d/t declining kidney function. Discussed possible mealtime insulin at NOV if no improvement. Current medications: Glimepiride 4mg with breakfast & dinner Toujeo 68 units every morning UTD on labs. UTD on DM eye exam: 09/09/24 +PDR [facility] [place] Discussed need to increase activity outside of [...] skin breakdown and infection. Assessment & Plan (08/13/2024 2:12 PM CDT): [...] eye exam (09/04/23 +PDR [facility] [place]). Discussed need to increase activity outside of [...] infection. Assessment & Plan (04/30/2024 2:42 PM SUPERINTENDENT PRODUCTION): Chronic problem, A1c stable but uncontrolled at [...] UTD on DM eye exam (03/06/23 at [facility] in [place]). Had appt summer 2023; letter sent to [...] eye exam (03/06/23 at [facility] Discussed need to increase activity outside [...] UTD on DM eye exam (03/06/23 at [facility] Discussed need to increase activity outside [...] infection. Assessment & Plan (03/09/2023 10:02 AM SUPERINTENDENT PRODUCTION): Chronic problem, A1c worsening. A1c breanna from [...] re: results. DM eye exam 03/06/23 at [facility] in [place]. Letter sent to get copy of report. [...] housework. Assessment & Plan (03/22/2022 9:20 AM SUPERINTENDENT PRODUCTION): Chronic problem, not at goal. Continue: Metformin [...] consider. Assessment & Plan (03/12/2019 12:23 PM SUPERINTENDENT PRODUCTION): Hba1c was Lab Results Component Value Date [...] Humalog. Assessment & Plan (03/30/2017 12:29 PM SUPERINTENDENT PRODUCTION): A1c 6.6 but she does have anemia with elevated RDW. Bydureon since 12/2016 may have also helped to improve A1c but will be stopping that for now. Will evaluate again at next Ov. Assessment & Plan (01/17/2017 10:11 AM SUPERINTENDENT PRODUCTION): Hba1c was 8.8 today, indicating inadequate DM [...] diabetes mónica litus 01/17/2017 Assessment & Plan (01/21/2025 8:12 AM SUPERINTENDENT PRODUCTION): Stable continue metoprolol Assessment & Plan (12/25/2024 2:23 PM CDT): Chronic problem, well controlled on current Metoprolol XL 25mg daily, furosemide 20mg daily Assessment & Plan (08/13/2024 1:26 PM CDT): Chronic problem, well controlled on current Metoprolol XL 25mg daily, furosemide 20mg daily Assessment & Plan (04/30/2024 2:14 PM SUPERINTENDENT PRODUCTION): Chronic problem, well controlled on current Metoprolol XL 25mg daily, furosemide 20mg daily Will update labs today. Does not mychart. Verified phone #/address to contact re: results. Assessment & Plan (03/09/2023 9:47 AM SUPERINTENDENT PRODUCTION): Chronic problem, well controlled on current Metoprolol XL 25mg daily, furosemide 20mg daily Will update labs today. Does not mychart. Verified phone #/address to contact re: results. Assessment & Plan (09/08/2022 11:14 AM CDT): Chronic problem, well controlled on current Metoprolol XL 25mg daily, furosemide 20mg daily No changes at this time. Assessment & Plan (03/22/2022 9:00 AM SUPERINTENDENT PRODUCTION): Chronic problem, well controlled on current metoprolol XL 25mg daily. No changes at this time. Assessment & Plan (07/02/2020 4:04 PM CDT): Goal blood pressure is less than 140/85 Low salt diet was discussed andd recommended The importance of daily aerobic exercise was also emphasized. Continue current meds Assessment & Plan (04/02/2020 1:38 PM SUPERINTENDENT PRODUCTION): Goal blood pressure is less than 140/85 [...] MA. Assessment & Plan (03/12/2019 12:24 PM SUPERINTENDENT PRODUCTION): Goal blood pressure is less than 140/85 [...] medications. Assessment & Plan (03/30/2017 12:33 PM SUPERINTENDENT PRODUCTION): Controlled on current medications. Assessment & Plan (01/17/2017 10:12 AM SUPERINTENDENT PRODUCTION): Goal blood pressure is less than 140/85 [...] finger 03/29/2011 Atherosclerotic heart diseas e of [place] coronary artery without angina pectoris 09/09/2010 Chronic diastolic (congestive) heart failure 11/2009 Overview (05/15/2023): intol darcy lucia ef too good for entrsto Resolved Problems Problem Noted Date Diagnosed Date Resolved Date Diabetic peripheral neuropathy 03/13/2022 08/09/2023 Morbid (severe) obesity due to excess calories 11/04/2021 03/21/2022 Wheezing 02/05/2021 03/21/2022 Morbid obesity ([facility]) 07/13/2017 Assessment & Plan (11/25/2019 10:39 AM [...] atorvastatin Assessment & Plan (03/30/2017 12:33 PM SUPERINTENDENT PRODUCTION): Continue statin Obesity due to excess calories 11/05/2015 03/21/2022 Assessment & Plan (03/30/2017 12:20 PM SUPERINTENDENT PRODUCTION): Current exercise will be reduced with completion of Pt. Advised to add walking or other home based exercise to current house work. Elevated erythrocyte sedimentation rate 12/27/2013 03/21/2022 Need for immunization against influenza 12/27/2013 03/21/2022 Encounters Date Type Department Care Team Description 01/14/2025 Orders Only [facility] Vascular and Vein Surgery [address] [place] [address] [address] [place] [address] Fan Beverly MD PVD (peripheral vascular disease) (Primary Dx) 01/13/2025 2:15 PM SUPERINTENDENT PRODUCTION Office Visit [facility] Vascular and Vein Surgery [address] [place] [address] Fan Beverly MD PVD (peripheral vascular disease) (Primary Dx); Mixed hyperlipidemia; Hyperlipidemia associated with type 2 diabetes mellitus (HCC); Hypertension associated with type 2 diabetes mellitus (HCC) 12/25/2024 3:00 PM CDT Office Visit [facility] Diabetes and Endocrinology [address] [place] [phone] Stacy Hernandez NP Type 2 diabetes mellitus with hyperglycemia, with long-term current use of insulin (HCC) (Primary Dx); Hypertension associated with type 2 diabetes mellitus (HCC); Hyperlipidemia associated with type 2 diabetes mellitus (HCC); Diabetic polyneuropathy associated with type 2 diabetes mellitus (HCC) 12/25/2024 Telephone [facility] Diabetes and Endocrinology [address] [place] [phone] Stacy Hernandez NP 10/29/2024 3:00 PM CDT [facility] [address] [place] [address] Shawanda De La Cruz NP Rheumatoid arthritis involving multiple sites with positive rheumatoid factor (HCC) (Primary Dx); High risk medication use 10/29/2024 11:20 AM CDT Lab [facility][1] [address] [place] [address] 10/29/2024 11:05 AM CDT Lab [facility][1] [address] [place] [address] Rheumatoid arthritis involving multiple sites with positive rheumatoid factor (HCC); High risk medication use from Last 3 Months Immunizations Immunization Administration [...] artery disease Coronary artery disease s/p silent [place] Hammer toe Hammer toe; Comm ents: 06/17/2015 - hammer toe surgery when pin was removed surgery site went septic. Rheumatoid arthritis (HCC) DM (diabetes mellitus) HTN (hypertension) HLP (hyperkeratosis lenticul mykel perstans) [...] j every night Type 2 diabetes mellitus Covid 01/2022 Covid-19 02/2022 PFO (patent foramen [...] on file Legal Sex Female 12:14 AM SUPERINTENDENT PRODUCTION Gender Identity Not on file Sexual Orientation Not on file Last Filed Vital Signs Vital Sign Reading Time Taken Comments Blood Pressure 148/83 01/13/2025 1:42 PM SUPERINTENDENT PRODUCTION Pulse 87 01/13/2025 1:42 PM SUPERINTENDENT PRODUCTION Temperature 36.8 C (98.3 F) 10/29/2024 10:29 AM CDT Respiratory Rate 18 12/25/2024 2:19 PM CDT Oxygen Saturation 98% 10/29/2024 10:29 AM CDT Inhaled Oxygen Concentration - - Weight 93.9 kg (207 lb) 01/13/2025 1:42 PM SUPERINTENDENT PRODUCTION Height 154.9 cm (5' 1) 01/13/2025 1:42 PM SUPERINTENDENT PRODUCTION Body Mass Index 39.11 01/13/2025 1:42 PM SUPERINTENDENT PRODUCTION Plan of Treatment Health Maintenance Due Date Last Done Comments Colon Cancer Screening-Colonoscopy 1950 Hepatitis B Screening 1970 Pneumococcal vaccine 65+ (1 of 2 - PCV) 06/20/1971 Zoster Vaccine (1 of 2) 06/20/1971 Well Visit 65+ 2017 Depression Screening 05/13/2022 05/13/2021, 07/02/2020, 11/25/2019, Additional history exists Breast Cancer Screening-Mammogram 12/01/2023 023, 10/07/2020 Covid-19 Vaccine (5 - 2024-2 6 season) 2024 09/28/2021, 03/22/2021, 03/22/2021, Additional history exists Influenza Vaccine (#1) 2024 , 12/05/2022, 12/09/2019, Additional history exists Fall Risk Assessment 12/07/2024 12/08/2023 Albumin Creatinine Ratio, Urine 04/30/2025 04/30/2024, 03/09/2023, 11/04/2021, Additional history exists Lipid Panel 04/30/2025 04/30/2024, 02/27, 11/04/2021, Additional history exists Hemoglobin A1C 06/25/2025 12/25/2024, 07/28, 04/30/2024, Additional history exists Foot Exam 08/13/2025 08/13/2024, 09/28, 09/08/2022, Additional history exists Dilated Eye Exam 09/09/2025 09/09/2024, 09/2023, 03/06/2023, Additional history exists eGFR 10/29/2025 10/29/2024, 06/27, 04/30/2024, Additional history exists Osteoporosis Screening-Bone Density Scan 04/02/2026 04/02/2024, 09/23/2021 DTaP/Tdap/Td Vaccine (2 - Td or Tdap) 09/15/2031 09/14/2021 Hepatitis C Screening Completed 07/03/2023, 020 Medical Devices Implanted Type Area Developer Programmer Device Identifier Shelf Expiration Date Model / Serial / Lot Allosource [id number] Freeze Dried Chips Graft 15ml Bone Cancellous Cortical - [id number] Implanted:Qty: 1 on 08/14/2018 by Pradip Whalen MD at [facility] [place] Bone Allosource 08/28/2022 [id number] / / [id number] Allosource [id number] Allogro Freeze Dried Graft 15ml Bone Demineralized Bone Matrix - [id number] Implanted:Qty: 1 on 08/14/2018 by Pradip Whalen MD at [facility] [place] Bone Allosource 03/15/2023 [id number] / / [id number] Intraocular Lens Bilateral : Eye Orthohelix [id number] Maxtorque 4mm 37.5mm Cannulated Self Drill Foot Ankle Long Thread - [id number] Implanted:Qty: 1 on 08/14/2018 by Pradip Whalen MD at [facility] [place] Right: Foot Orthohelix MSD-010-40- [id number] / / [employer] [id number] Cristobal .062in 9in Style 1 Wire Fixation Stainless Steel - [id number] Implanted:Qty: 1 on 08/14/2018 by Pradip Whalen MD at [facility] [place] Right: First Toe [employer] [id number] / / Orthohelix [id number]-[id number] Maxlock Extreme 2 Hole [place] Alpha Plate Bone Nonsterile - [id number] Implanted:Qty: 1 on 08/14/2018 by Pradip Whalen MD at [facility] [place] Right: Foot Orthohelix [id number] / / Orthohelix [id number] Maxtorque 5.5mm 50mm Cannulated Self Drill Foot Ankle Long Thread - [id number] Implanted:Qty: 1 on 08/14/2018 by Pradip Whalen MD at [facility] [place] Right: Foot Orthohelix MSD-010-55- 050L / / Orthohelix [id number] Maxtorque 5.5mm 55mm Cannulated Self Drill Foot Ankle Long Thread - [id number] Implanted:Qty: 1 on 08/14/2018 by Pradip Whalen MD at [facility] [place] Right: Foot Orthohelix MSD-010-55- [id number] / / Orthohelix [id number] Maxtorque 7mm 70mm Cannulated Self Drill Foot Ankle Petite Thread - [id number] Implanted:Qty: 1 on 08/14/2018 by Pradip Whalen MD at [facility] [place] Right: Foot Orthohelix MSD-010-70- 070P / / Orthohelix [id number] 4mm 26mm Nonlock Foot Ankle Screw Bone Nonsterile Maxlock Extreme - [id number] Implanted:Qty: 2 on 08/14/2018 by Pradip Whalen MD at [facility] [place] Right: Foot Orthohelix EMT DISPATCHER-[id number] 6 / / Orthohelix [id number] Maxlock Extreme 4mm 28mm Nonlock Foot Ankle Screw Bone Nonsterile Latex Free - [id number] Implanted:Qty: 1 on 08/14/2018 by Pradip Whalen MD at [facility] [place] Right: Foot Orthohelix EMT DISPATCHER-011-402 8 / / Orthohelix [id number] Maxlock Extreme 4mm 24mm Nonlock Foot Ankle Screw Bone Nonsterile - [id number] Implanted:Qty: 1 on 08/14/2018 by Pradip Whalen MD at [facility] [place] Right: Foot Orthohelix EMT DISPATCHER-011-40- 24 / / Explanted Type Area Developer Programmer Device Identifier Shelf Expiration Date Model / Serial / Lot Orthohelix Assistant-040 [place] Wire Fixation Nonsterile Latex Free - [id number] Explanted:Qty: 2 on 08/14/2018 at [facility] [place] Right: Foot Orthohelix EMT DISPATCHER-040 / / Procedures Procedure Name Priority Date/Time Associated Diagnosis Comments POCT HEMOGLOBIN A1C Routine 12/25/2024 2 :34 PM CDT Type 2 diabetes mellitus with hyperglycemia, with long-term current use of insulin (HCC) POCT GLUCOSE Routine 12/25/2024 2:29 PM CDT Type 2 diabetes mellitus with hyperglycemia, with long-term current use of insulin (HCC) EGFR Routine 10/29/2024 11:23 AM CDT High risk medication use DIFFERENTIAL AUTO Routine 10/29/2024 11: 23 AM CDT High risk medication use COMPREHENSIVE METABOLIC PANEL Routine 10/29/2024 11:23 AM CDT High risk medication use CBC WITH AUTO DIFFERENTIAL Routine 10/29/2024 11:23 AM CDT High risk medication use ERYTHROCYTE SEDIMENTATION RATE Routine 10/29/2024 11:23 AM CDT Rheumatoid arthritis involving multiple sites with positive rheumatoid factor (HCC) HM DIABETES EYE EXAM Routine 09/09/2024 LIPID PANEL Routine 04/30/2024 2:40 PM SUPERINTENDENT PRODUCTION Type 2 diabetes mellitus with hyperglycemia, with long-term current use of insulin (HCC) Hyperlipidemia associated with type 2 diabetes mellitus (HCC) ALBUMIN CREATININE RATIO, URINE Routine 04/30/2024 2:40 PM SUPERINTENDENT PRODUCTION Type 2 diabetes mellitus with hyperglycemia, with long-term current use of insulin (HCC) DEXA AXIAL SKELETON BONE DENSITY 1 OR MORE SITES Schedule Routine, Read Routine (OP Routine) 04/02/2024 11:04 AM SUPERINTENDENT PRODUCTION Rheumatoid arthritis involving multiple sites with positive rheumatoid factor (HCC) HEPATITIS PANEL, ACUTE Routine 07/03/2023 10:42 AM CDT High risk medication use from Last 3 Months or Most Recently Relevant to Health Maintenance Results * (ABNORMAL) POCT hemoglobin A1c (12/25/2024 2:34 PM CDT) Hemoglobin A1C, POC 8.2(A) 4.0 - 5.6 % Blood 12/25/2024 2:34 PM CDT Stacy Hernandez NP POINT OF CARE TEST ORDERA BLES Final Result * POCT glucose (12/25/2024 2:29 PM CDT) Pathologist [facility] Glucose Blood, POC 251 Normal Fasting 70 - 100, Random <200 mg/dL Blood 12/25/2024 2:29 PM CDT us Stacy Hernandez NP POINT OF CARE TEST ORDERA BLES Final Result * (ABNORMAL) eGFR (10/29/2024 11:23 AM CDT) Pathologist [facility] eGFR 29(L) >=60 mL/min/1. 73 m2 Comment: Interpretive Data [...] interpretive data was last reviewed 2020. Blood 10/29/2024 11:2 3 AM CDT 10/29/2024 1:57 PM CDT us Shawanda De La Cruz NP LAB BLOOD ORDERABLES Final Result [facility] Department [place] [address] * Differential, auto (10/29/2024 11:23 AM CDT) Pathologist [facility] Neutrophil abs 4.29 1.50 - 6.50 K/cumm Imm gran abs 0.03 0.00 - 0.10 K/cumm [facility] Lymphocyte abs 2.53 0.80 - 3.30 K/cumm [facility] Monocyte abs 0.55 0.20 - 0.80 K/cumm [facility] Eosinophil abs 0.29 0.00 - 0.50 K/cumm [facility] Basophil abs 0.05 0.00 - 0.10 K/cumm [facility] Neutrophil pct 55.5 % [facility] Comment: Interpretive Data Percent cell count reference ranges are not reported, since discordance with absolute values may lead to misinterpretation of CBC data. Current Interpretive Data was last revised on 2017. Imm gran pct 0.4 % [facility] Comment: Interpretive Data Percent cell count reference ranges are not reported, since discordance with absolute values may lead to misinterpretation of CBC data. Current Interpretive Data was last revised on 2017. Lymphocyte pct 32.7 % [facility] Comment: Interpretive Data Percent cell count reference ranges are not reported, since discordance with absolute values may lead to misinterpretation of CBC data. Current Interpretive Data was last revised on 2017. Monocyte pct 7.1 % [facility] Comment: Interpretive Data Percent cell count reference ranges are not reported, since discordance with absolute values may lead to misinterpretation of CBC data. Current Interpretive Data was last revised on 2017. Eosinophil pct 3.7 % [facility] Comment: [...] Data was last revised on 2017. Blood 10/29/2024 11:2 3 AM CDT 10/29/2024 1:51 PM CDT us Shawanda De La Cruz POUNCING LATHE OPERATOR LAB BLOOD ORDERABLES Final Result [facility] [place] [address] * (ABNORMAL) CBC with auto differential (10/29/2024 11:23 AM CDT) Pathologist [facility] WBC 7.74 3.80 - 9.90 K/cumm Hgb 10.3(L) 11.9 - 15.5 g/dL [facility] Hct 32.3(L) 35.6 - 45.5 % [facility] Plt 145(L) 150 - 400 K/cumm [facility] MPV 13.1(H) 9.1 - 12.3 fL [facility] RBC 3.48(L) 3.90 - 5.20 M/cumm [facility] MCV 92.8 81.3 - 96.4 fL [facility] MCH 29.6 27.1 - 33.3 pg [facility] MCHC 31.9(L) 32.3 - 35.7 g/dL [facility] RDW CV 14.6 11.1 - 14.9 % [facility] RDW SD 49.3(H) 35.7 - 48.1 fL [facility] NRBC abs 0.00 0.00 - 0.01 K/cumm [facility] Blood 10/29/2024 11:2 3 AM CDT 10/29/2024 1:51 PM CDT us Shawanda De La Cruz NP LAB BLOOD ORDERABLES Final Result Performing Organization Address City/State/[facility] Co de Phone Number [facility] [place] [address] * (ABNORMAL) Erythrocyte sedimentation rate (10/29/2024 11:23 AM CDT) [facility] Erythrocyte sedimentation rate 80(H) 1 - 30 mm/hr Blood 10/29/2024 11:2 3 AM CDT 10/29/2024 1:51 PM CDT Shawanda De La Cruz NP LAB BLOOD ORDERABLES Final Result [facility] [place] [address] * (ABNORMAL) Comprehensive metabolic panel (10/29/2024 11:23 AM CDT) Sodium 143 135 - 145 mmol/L Potassium, pl 4.1 3.3 - 4.9 mmol/L [facility] Chloride 108 97 - 110 mmol/L [facility] CO2 23 22 - 32 mmol/L [facility] Anion gap 12 2 - 15 mmol/L [facility] BUN 40(H) 6 - 25 mg/dL [facility] Creatinine 1.84(H) 0.60 - 1.10 mg/dL [facility] Glucose 73 70 - 199 mg/dL [facility] Comment: Interpretive Data Fasting glucose >/= [...] interpretive data was last revised 2022. Calcium 9.6 8.5 - 10.3 mg/dL [facility] Bilirubin, total 0.2 0.1 - 1.2 mg/dL [facility] Protein, pl 7.7 6.5 - 8.5 g/dL [facility] Albumin 3.8 3.5 - 5.0 g/dL [facility] Alk phos 116 40 - 130 Units/L [facility] ALT 22 7 - 45 Units/L [facility] AST 33 10 - 45 Units/L [facility] Blood 10/29/2024 11:2 3 AM CDT 10/29/2024 1:57 PM CDT us Shawanda De La Cruz POUNCING LATHE OPERATOR LAB BLOOD ORDERABLES Final Result [facility] [place] [address] * (ABNORMAL) DIABETES EYE EXAM (09/09/2024) SCRIBED DIABETIC DILATED EYE EXAM Abnormal 09/09/2024 Historical Provider HEALTH MAINTENANCE Edited Result - Final * (ABNORMAL) Albumin Creatinine Ratio, Urine (04/30/2024 2:40 PM SUPERINTENDENT PRODUCTION) Albumin Ur 3,067.5 mg/L Comment: Interpretive Data No reference range established. Current interpretive data was last revised 2018. Creatinine Ur 81.5 mg/dL [facility] Comment: Interpretive Data No reference range established. Current interpretive data was last revised 2018. Albumin Creatinine Ratio, Ur 3,764(H) 1 - 29 mg/g [facility] Urine 04/30/2024 2:40 PM SUPERINTENDENT PRODUCTION 04/30/2024 11:00 PM SUPERINTENDENT PRODUCTION Stacy Hernandez NP LAB URINE ORDERABLES Valery miguel Result [facility] [address] [place] [address] * Lipid panel (04/30/2024 2:40 PM SUPERINTENDENT PRODUCTION) Cholesterol 119 30 - 199 mg/dL Comment: [...] on 2017. HDL 51 >=40 mg/dL [facility] Comment: Interpretive Data Ages < [...] 2017. LDL, calculated 50 <=129 mg/dL [facility] Comment: Interpretive Data Ages < [...] 2 [facility] Blood 04/30/2024 2:40 PM SUPERINTENDENT PRODUCTION 04/30/2024 11:00 PM SUPERINTENDENT PRODUCTION us Stacy Hernandez NP LAB BLOOD ORDERABLES Valery rivera Result [facility] [address] Department [place] [address] * Dexa Axial Skeleton Bone Density 1 or 2 Site (04/02/2024 11:04 AM SUPERINTENDENT PRODUCTION) Anatomical Region Laterality Modality Body N/A Radiographic Sheron ging Narrative 04/02/2024 2:27 PM SUPERINTENDENT PRODUCTION Patient Name: Aleyda Dobbs Date of : 1950 Date of scan: 04/02/2024 Bone mineral density was performed on a [employer] Discovery Densitometer. Based on machine cross-calibration and [...] mineral density scan were prepared by Agnes Cortez (R M)() [facility] who is accredited by the International Society of Clinical Densitometry. The overall patient assessment and scan interpretation were performed by Chacho Sanon M.D. who is certified by the International Society of Clinical Densitometry. [id number] us Shawanda De La Cruz NP IMG DXA PROCEDURES Final R esult * Hepatitis panel, acute Blood (07/03/2023 10:42 AM CDT) Hep A IgM Nonreactive Nonreactive Hep B core IgM Nonreactive Nonreactive [facility] Hep C Ab Nonreactive Nonreactive [facility] Comment:Antibodies to HCV no t detected. Does NOT exclude the possibility of recent exposure to HCV. Current interpretive data was last revised on 21 [facility]BsAg Nonreactive [facility] Blood 07/03/2023 10:4 2 AM CDT 07/03/2023 2:00 PM CDT us Shawanda De La Cruz NP LAB MICROBIOLOGY - GENERAL ORDERABLES Final Result [facility] [place] [address] from Last 3 Months or Most Recently Relevant to Health Maintenance [place] [address] [employer] MEDICARE [employer] OPEN ACCESS MEDICARE [facility] Address: [address] [address] [place] [address] BLUE ACCESS OOS Advance Directives For more information, please contact: [phone] * Full Code (Latest Code Status on File) Date Activated Date Inactivated Comments 07/20/2020 2:30 PM 07/21/2020 6:17 PM * Full Code Date Activated Date Inactivated Comments 08/14/2018 8:57 PM 08/15/2018 6:35 PM Care Teams Home Stereo Equipment Installer Relationship Specialty Start Date End Date Charles Armendariz DO PCP - General 05/27/16 David Vanegas MD Consulting Physician Cardiology 07/20/18
--- OUTSIDE RECORDS SUMMARY | 2025-01-24 14:45 | XMS_ITS | Clinical Summary ---
Author Organization [facility] Address [address] [place] [address] Care Team Providers Care Sustainable Agriculture Specialist Name Role Phone Tammy Arroyo RN Unavailable [phone] Charles Armendariz DO Primary Care Provider [phone] Source Comments [facility],non-owned Affiliates and Associated Physician Practices is amultiple site organization consisting of ambulatory clinics and hospital sitesin [place], [place], [place] and [place]. This disclosure is being madepursuant to the Care Everywhere program and may not contain all information available regarding this patient. Last updated 17.[facility] Allergies Active Allergy Reactions Criticality Noted Date Comments Povidone Iodine Rash Medium 05/05/2017 Valsartan Urticaria Medium 03/30/2017 Vancomycin Urticaria Medium 11/05/2015 Medications * Be aware that medications may not be up to date on this document. Alwaysverify current medications with the patient. montelukast (SINGULAIR) 10 MG tablet Take 10 mg by mouth once daily Active fluticasone propionate (FLONASE) 50 MCG/ACT nasal spray [place] 2 Sprays into each nostril once daily [...] on file Legal Sex Female 6:07 AM SQL REPORT DEVELOPER Gender Identity Not on file Sexual [...] 105.7 kg (233 lb) 05/05/2017 6:48 AM SQL REPORT DEVELOPER Height 161.3 cm (5' 3.5) 05/05/2017 6:48 AM SQL REPORT DEVELOPER Body Mass Index 40.63 05/05/2017 6:48 AM SQL REPORT DEVELOPER Plan of Treatment Health Maintenance Due Date [...] 50+ (1 of 1 - PCV) 2002 Respiratory Syncytial Virus (RSV) Vaccine Pt: or over 60 yrs (1 - Risk 50-74 years 1-dose series) 2002 ZOSTER VACCINE (1 of 2) 2002 DEPRESSION SCREENING 02/28/2024 COVID-19 VACCINE (1 - 2024-2 6 season) 2024 INFLUENZA VACCINE (#1) 2024 05/27/2015 HEPATITIS B VACCINE Aged Out No longe [...] patient's age to complete this topic Insurance [facility] MEDIC[facility] [employer] [facility] Advance Directives * Full Code (Latest Code Status on File) Date Activated Date Inactivated Comments 05/26/2015 11:04 PM 06/01/2015 6:08 PM * Full Code Date Activated Date Inactivated Comments 05/26/2015 7:39 PM 05/26/2015 11:04 PM Care Teams Sustainable Agriculture Specialist Relationship Specialty Start Date End Date Charles Armendariz DO PCP - General 06/04/20 Tammy Arroyo, RN Fitter / Welder 05/26/15
--- OUTSIDE RECORDS SUMMARY | 2025-01-24 14:45 | XMS_ITS | Continuity of Care Document ---
Author Organization [place] - [facility], [facility] Pod[facility] [place] Address [address] [place] [address] Care Team Providers Care Turkey Farmer Name Role Phone GILBERTO IRIZARRY Primary Care Provider [phone] GILBERTO IRIZARRY Referring Provider Assessment Encounter Date Assessment Date Assessment LastModified by Organization Details LastModified Time 12/17/2024 12/17/2024 This note is dictated and transcribed by [employer]. Personal Companion variances may occur. Despite proofreading, typographical errors may occur. Occasional wrong-word or 'gajtm-i-soxe' substitutions may have occurred due to the inherent limitations of voice recording. Read the chart carefully and recognize, using context, where substitutions have occurred. [email or web address] Not available 12/19/2024 09:31:11 Plan of Treatment Reminders Order Date Submit Date Provider Last Modified By Organization Details Last Modified Time Details Appointments Any 15 2024 10:00A M Devin Benitez MD Not available Not available Not available Establish ed Patient 10 2025 09:30A M Clifton Saravia DPM Not available Not available Not available Lab None recorded. Referral None recorded. Procedures None recorded. Surgeries None recorded. Imaging None recorded. Medication Orders None recorded. Patient TargetsNo targets recorded. Patient InstructionsNo instructions recorded. Reason for Referral None Reported. Problems Name Problem SNOMED Code Status Onset Date Resolution Date Notes Provider Name and Address Organization Details Recorded Time Chronic depressio n 709489690 Active Not Available [employer] 3 07:32:08 Partial thickness rotator cuff tear 861871819 Active Not Available [facility] 3 07:32:09 Gastroeso phageal reflux disease 739548037 Active Not Available [facility] 3 07:32:09 Anemia 394295725 Active Not Available [facility] 3 07:32:09 Osteoarth ritis 227534540 Active Not Available [facility] 3 07:32:10 Hypothyro idism 48582720 Active Not Available [facility] 3 07:32:11 Obesity 717649090 Active Not Available [facility] 3 07:32:11 Anxiety 69286079 Active Not Available [facility] 3 07:32:12 Hyperlipi demia 63536501 Active Not Available [facility] 3 07:32:12 Wheezing 89218723 Completed Not Available [facility] 3 07:32:13 Essential hypertens ion 96230413 Active Not Available [facility] 3 07:32:13 Obstructi ve sleep apnea syndrome 92654581 Active Not Available [facility] 3 07:32:14 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 Not Available [facility] 3 07:32:15 Gout 87555805 Active Not Available [facility] 3 07:32:15 Primary fibromyal steven syndrome 03814300 Active Not Available [facility] 3 07:32:16 Long-term current use of anticoagu lant 284416542 Active 2021 Not Available [facility] 3 07:32:14 History of amputatio n of left great toe 98739842633 926304 Active 2022 Not Available [facility] 3 07:32:08 Hammer toe 784659387 Active 2022 Not Available [facility] 3 07:32:08 Diabetic periphera l neuropath y 378141805 Active 2022 Not Available [facility] 3 07:32:11 Flexion contractu re of toe joint 936346684 Active 2022 Clifton Saravia DPM [address], [place], [address] , [employer] [facility] 3 14:41:16 Sensorine ural hearing loss 91501421 Active 2022 Antoine Tanner MD [address], [place], [address] , [facility] [employer] [facility] 3 14:29:40 Periodic limb movement disorder 950492788 Active 2023 Devin Benitez MD [address], [place], [address] , [employer] [facility] [employer] [facility] 4 11:48:29 Hypomagne semia 225656728 Active 2023 Devin Benitez MD [address], [place], [address] , [facility] [employer] [facility] 4 11:51:11 Mild persisten t asthma 641553770 Active 2023 Devin Benitez MD [address], [place], [address] , [employer] [facility] [employer] [facility] 4 11:41:36 Hammer toe 076890611 Active 2024 Clifton Saravia DPM [address], [place], [address] , [employer] [facility] 5 14:51:19 History of amputatio n of right great toe 94457314967 392890 Active 2024 Clifton Saravia DPM [address], [place], [address] , [employer] [facility] 5 14:51:40 Diabetic on insulin 992471806 Active 2024 Clifton Saravia DPM [address], [place], [address] , [facility] [employer] [facility] 5 10:05:12 Dystrophi a unguium 79423478 Active 2024 Clifton Saravia DPM [address], [place], [address] , [employer] [facility] [employer] [facility] 10:05:20 Notes:Medical History: Anxie ty/Depression Sensorineural hearing [...] 1st toe amputation 2023 Occupational History: Retired [employer] P[employer] Mask Use History: ResMed medium AirFit F30 full face mask ResMed medium AirFit F40 full face mask Problem Notes None recorded. Procedures Surgical History Date Name Laterality Status Provider Name and Address Organization Details Recorded Time 12/18/19 25 Nail Debridement completed Clifton Saravia DPM [address], [place], [address], [facility] [employer] [facility] [employer] 12/19/2024 09:31:06 09/20/19 25 Nail Debridement completed Clifton Saravia DPM [address], [place], [address], [facility] [employer] [facility] [employer] 09/19/2024 14:28:14 06/21/19 25 Nail Debridement completed Clifton Saravia DPM [address], [place], [address], [facility] [employer] [facility] [employer] 06/24/2024 10:04:29 03/21/19 25 Nail Debridement completed Clifton Saravia DPM [address], [place], [address], [facility] [employer] [facility] [employer] 03/21/2024 14:48:29 10/23/19 24 Nail Debridement completed Clifton Saravia DPM [address], [place], [address], [employer] [facility] [employer] [facility] 10/23/2023 11:58:36 07/20/19 24 Nail Debridement completed Clifton Saravia DPM [address], [place], [address], [facility] [employer] [facility] [employer] [facility] 07/20/2023 15:16:22 06/06/19 24 Incision & Drainage Procedure completed Cameron Dan DPM [address], [place], [address], [employer] [facility] [employer] [facility] 06/06/2023 10:43:07 04/10/19 24 Nail Debridement completed Clifton Saravia DPM [address], [place], [address], [email or web address] [facility] [employer] 04/17/2023 10:52:28 12/23/19 23 Nail Debridement completed Clifton Saravia DPM [address], [place], [address], [employer] [facility] [employer] 12/26/2022 08:11:04 12/23/19 23 Joint Injection-Podia try 6217 completed Cliftno Saravia DPM [address], [place], [address], [email or web address] [facility] [employer] 12/26/2022 08:10:33 09/23/19 23 Nail Debridement completed LUCIA [address], [place], [address], [employer] [facility] [employer] 09/22/2022 15:10:23 06/24/19 23 Nail Debridement completed LUCIA [address], [place], [address], [employer] [facility] [employer] 06/23/2022 14:40:20 procedure on elbow completed Not Available [facility] 04/27/2022 07:27:46 procedure on hand completed Not Available [facility] 04/27/2022 07:27:46 Imaging Results None recorded. Procedure Notes None recorded. Medical Equipment None Reported. Allergies Allergen ID Allergen Name Allergen Category Reaction Reaction Severity Criticality Documentation Date Start Date Code Code System Note Provider Name and Address Organization Details Recorded Time 08025 Vibramyci n medicatio n other Not available Not available 04/27/202232724 5 RxNorm Not Available [facility] 3 07:37:15 72300 vancomyci n medicatio n hives Not available Not available 04/27/2022 80040 RxNorm Not Available [facility] 3 07:37:15 52208 valsartan medicatio n other Not available Not available 04/27/2022 96449 RxNorm Not Available [facility] 3 07:37:15 50312 lisinopri l medicatio n cough Not available Not available 04/27/2022 89132 RxNorm Not Available [facility] 3 07:37:15 51994 Betadine medicatio n rash Not available Not available 04/27/202234825 0 RxNorm Not Available [facility] 3 07:37:15 Medications Name Sig Start Date [...] TAKE 1 TABLET BY MOUTH TWICE DAILY 12/14 completed Not Available Not Available Not Available [...] Available estradiol 0.01% (0.1 mg/gram) vaginal cream APPLY 1 GRAM VAGINALL Y ONCE DAILY FOR 2 WEEKS AND THEN THREE TIMES WEEKLY THEREAFT ER active Not Available Not Available No t Available methylpre dnisolone 4 mg tablets in [...] 1 CAPSULE BY MOUTH EVERY 12 HOURS 09/16 completed Not Available Not Available Not Available [...] height Body mass index (BMI) Body weight Oxygen saturation Body temperature Heart rate Systolic And Diastolic Provider Name and Address Organization Details Last Updated DateTime 160.02 cm 36.7 kg/m2 86817.6 2 g 95 % 98.4 [degF] 86 /min 143/65 mm[Hg] Barron Serrano Ped[employer] 14:14:46 Social History Question Answer Notes LastModified by Organizat ion Details LastModified Time Tobacco Smoking Status Former Smoker [place] [employer] [employer] 04/10/2023 15:54:00 What Is Your Level Of Caffeine Consumption? Moderate [id number] Information not available 04/27/2022 In The 14 [...] Date Of Your Most Recent Tobacco Screening? 12/17/2024 [email or web address] Information not available 12/17/2024 Have You Ever Been Counseled For Unhealthy [...] is your level of alcohol consumption? Occasional [id number] Information not available 04/27/2022 Have you been exposed to chemicals or toxins? not that aware of Information not available 01/17/2024 What is your occupation? n/a Information not available 04/10/2023 Mental Status Question Answer Note LastModified by Organization D etails LastModified Time Do you feel stressed (tense, restless, nervous, or anxious, or unable to sleep at night)? [id number] Information not available 01/17/2024 Family History Relationship [...] high-dose, trivalent, PF 3 completed Not Available [facility] 04/27/2022 07:37:07 Influenza, high-dose, trivalent, PF 1 completed Not Available [facility] 04/27/2022 07:37:07 Influenza, high-dose, trivalent, PF 0 completed Not Available [facility] 04/27/2022 07:37:07 pneumococcal polysaccharide PPV23 0 completed Not Available [facility] 04/27/2022 07:37:07 COVID-19, mRNA, LNP-S, PF, 30 mcg/0.3 mL dose 1 completed Not Available [facility] 04/27/2022 07:37:08 COVID-19, mRNA, LNP-S, PF, 30 mcg/0.3 mL dose 1 completed Not Available [facility] 04/27/2022 07:37:08 Td (adult) 7 completed Not Available [facility] 04/27/2022 07:37:08 Past Encounters Encounter ID Performer Location Encounter Start Date Encounter Closed Date Diagnosis/Indication Diagnosis SNOMED-CT Code Diagnosis ICD10 Code Diagnosis IMO Codes Diagnosis Note [id number] Clifton Saravia DPM [facility] [place] [address] [place] [address] 12/17/2024 13:59:51 12/24/2024 15:03:05 Diabetic peripheral neuropathy 312498554 E11.42 Rx diabetic shoe gear- neoprene style toe box shoe, extra-dept hcheck feet daily for wounds infection at present seek medical attention immediatel yFollow-up in 3 months Dystrophia unguium 31361 009 L60.3 Nails 1 through 8 were debrided with sharp mechanical debridemen t without incident. Nails were debrided and greater than 50% length and thickness where needed. History of amputation of left great toe 3760315146 1956941 Z89.412 secondary to history of toe amputation to the left foot with existing neuropathy the and plantar flexion contractur e of her toes patient would benefit greatly from diabetic shoes and insoles to prevent recurrent wounds of her feet. History of amputation of right great toe 8712113272 7157663 Z89.411 right great toe well healed- performed by [facility] Concerns Section Related Observation LastModified by Organization Jae gonzalez LastModified Time None Recorded Concern Status LastModified by Organization Details LastModified Time None Recorded Payers Encounter Date Sequence Insurance Name Policy Number Policy Puga Covered Member ID Puga Member ID Guarantor Name 12/17/2024 2 [place] Aleyda Gaston [place] [id number] Aleyda Dobbs 12/17/2024 1 [facility] PHOTOGRAPHY [facility] - OPEN ACCESS III (PPO) [id number] Aleyda Dobbs [id number] Aleyda Dobbs Notes Date Note Type Note Provider Name and Address Organization Details Recorded Time 12/17/2024 text/html . Patient is a 74-year-old female with history of amputation and diabetes she follows up for routine foot care. Patient states she has recently obtained new diabetic shoes and insoles she states that she has noticed some areas of redness at the areas of her amputation. I did discuss the break-in period with the patient I did encourage her to utilize the insoles often but ensure increments. These may resolve with breakdown of the accommodative insole but if they continue to create pressure then she will need to return and have them modified. Patient understands. Clifton Saravia DPM [address], [place], [address], [facility] [employer] 12/19/2024 09:33:21 OBGyn Episode No OBEpisode recorded.
--- OUTSIDE RECORDS SUMMARY | 2025-01-24 14:45 | XMS_ITS | Data Portability ---
Author Organization [facility] - [place] Hen[place] Address [address] [facility] [place] [address] Care Team Providers Care Quality Auditor Name Role Phone ELVIN ROSE Imaging Aide Assessment Encounter Date Assessment Date Assessment LastModified [...] To The Location Of Their Choice, 3 06:14:20 urinalys is, dipstick 2022 023 CHRIS In-Office Order, Internal Use Only DO Not Attach Compendium DO Not Attach Compendium, Do Not Delete/merge, [id number] 3 10:02:27 culture, urine 2022 023 CHRIS [facility] (Centralized Electronic Ordering - All Locations), Patient Can Go To The Location Of Their Choice, [address] 3 06:14:08 urinalys is, dipstick 2019 020 myranda In-Office Order, Internal Use Only DO Not Attach Compendium DO Not Attach Compendium, Do Not Delete/merge, [id number] 0 15:19:43 culture, urine 2019 [place] [facility] Kang Mccormick, [address], [address], 0 06:12:47 bacteria l vaginosi s panel, vaginal 2019 CH[facility] (Centralized Electronic Ordering - All Locations), Patient Can Go To The Location Of Their Choice, [id number] 0 06:12:46 culture, vaginal/ rectal, streptoc occus group B 2019 CH[facility] ([facility]ized Electronic Ordering - All Locations), Patient Can Go To The Location Of Their Choice, [address] 0 06:12:47 Referral None recorded . Procedures None recorded . Surgeries None recorded . Imaging None recorded . Medication Orders benzonat ate 200 mg capsule 2023 024 [place] [facility]78304, [address] [place], [place], [id number], 4 09:38:18 Zithroma x Z-Kirt 250 mg tablet 2023 024 [place] [facility] #39252, [address] [place], [place], [id number], 4 09:38:17 cetirizi ne 10 mg tablet 2023 024 [facility] #42235, [address] [place], [place], [id number], 4 09:38:18 estradio l 0.01% (0.1 mg/gram) vaginal cream 2022 024 [facility] #11614, [address] [place], [place], [id number], 4 09:03:10 estradio l 0.01% (0.1 mg/gram) vaginal cream 2022 023 [facility] #44852, [address] [place], [place], [id number], 4 09:01:41 estradio l 0.01% (0.1 mg/gram) vaginal cream 2022 023 [facility] #42658, [address] [place], [place], [id number], 4 09:01:41 Premarin 0.625 mg/gram vaginal cream 2019 020 [facility], [address] [place] [address], [id number], 3 13:59:43 ciproflo xacin 250 mg tablet 2019 020 [facility], [address] [place] [address], [id number], 3 14:21:14 Patient TargetsNo targets recorded. Patient Instructions Encounter Date Encounter Id Patient Instructions Last Modified By Organization Details Last Modified Time 12/05/2019 [id number] influenza (flu) vaccine: care instructions [email or web address] Not available 12/05/2019 15:19:43 atrophic vaginitis: care instructions mwasserman Not available 12/05/2019 13:29:10 05/31/2022 [id number] atrophic vaginitis: care instructions Not available 05/31/2022 09:44:32 Urge Incontinence: Care Instructions Not available 05/31/2022 09:44:18 Stress Incontinence: Care Instructions Not available 05/31/2022 09:44:18 kegel exercises: care instructions Not available 05/31/2022 09:44:18 bladder training: care instructions Not available 05/31/2022 09:44:18 A healthy lifestyle: care instructions Not available 05/31/2022 09:12:13 09/09/2022 [id number] atrophic vaginitis: care instructions Not available 09/09/2022 15:50:24 A healthy lifestyle: care instructions Not available 09/09/2022 15:50:24 12/09/2022 [id number] atrophic vaginitis: care instructions Not available 12/09/2022 15:01:23 A healthy lifestyle: care instructions Not available 12/09/2022 15:01:23 04/17/2023 [id number] body mass index: care instructions [email or web address] Not available 04/17/2023 09:38:09 learning about healthy weight [email or web address] Not available 04/17/2023 09:38:09 upper respiratory infection (cold): care instructions Not available 04/17/2023 09:38:09 Reason for Referral None Reported. Results Created Date Observation Date Name Description Value Unit Range Abnormal Flag Note LastModifiedBy Organization Detail LastModifiedTime 12/05/1912/05/2019 urina lysis , dipst ick Leukocytes Negati ve Not Available In-Office Order Internal Use Only DO Not Attach Compendium DO Not Attach Compendium, Do Not Delete/merge, [id number] 12/05/2019 12:30:15 12/05/1912/05/2019 urina lysis , dipst ick Nitrite positi ve Not Available In-Office Order Internal Use Only DO Not Attach Compendium DO Not Attach Compendium, Do Not Delete/merge, [id number] 12/05/2019 12:30:15 12/05/1912/05/2019 urina lysis , dipst ick Urobilinogen .2 Not Available In-Of fice Order Internal Use Only DO Not Attach Compendium DO Not Attach Compendium, Do Not Delete/merge, [id number] 12/05/2019 12:30:15 12/05/19 20 12/05/2019 urina lysis , dipst ick Protein 300 Not Available In-Office Order Internal Use Only DO Not Attach Compendium DO Not Attach Compendium, Do Not Delete/merge, [id number] 12/05/2019 12:30:15 12/05/19 20 12/05/2019 urina lysis , dipst ick pH 5.5 Not Available In-Office Order Internal Use Only DO Not Attach Compendium DO Not Attach Compendium, Do Not Delete/merge, [id number] 12/05/2019 12:30:15 12/05/1912/05/2019 urina lysis , dipst ick Blood Small Not Available In-Office Order Internal Use Only DO Not Attach Compendium DO Not Attach Compendium, Do Not Delete/merge, [id number] 12/05/2019 12:30:15 12/05/19 20 12/05/2019 urina lysis , dipst ick Specific Cortez 1.030 Not Available In-Off ice Order Internal [...] DO Not Attach Compendium, Do Not Delete/merge, [id number] 12/05/2019 12:30:15 12/05/19 20 12/05/2019 urina lysis , dipst ick Glucose Negati ve Not Available In-Office Order Internal Use Only DO Not Attach Compendium DO Not Attach Compendium, Do Not Delete/merge, [id number] 12/05/2019 12:30:15 12/05/1912/07/2019 bacte rial vagin osis panel , vagin al trich vag by ALBERTO Negati ve negati ve Not Available [facility] ([facility]) [address] [place], [address], 12/11/2019 06:12:46 12/05/1912/07/2019 bacte rial vagin osis panel , vagin al chlamydia trachomatis, ALBERTO Negati ve negati ve Not Available [facility] ([facility]) [address] [place], [address], 12/11/2019 06:12:46 12/05/1912/07/2019 bacte rial vagin osis panel , vagin al neisseria gonorrhoeae, ALBERTO Negati ve negati ve Not Available [facility] ([facility]) [address] [place], [address], 12/11/2019 06:12:46 12/05/1912/08/2019 bacte rial vagin osis panel , vagin al hsv 1 ALBERTO Negati ve negati ve Not Available [facility] ([facility]) [address] [place], [address], 12/11/2019 06:12:46 12/05/1912/08/2019 bacte rial vagin osis panel , vagin al hsv 2 ALBERTO Negati ve negati ve Not Available [facility] ([facility]) [address] [place], [address], 12/11/2019 06:12:46 12/05/1912/11/2019 bacte rial vagin osis panel , vagin al atopobium vaginae Low - 0 score Not Available [facility] ([facility]) [address] [place], [address], 12/11/2019 06:12:46 12/05/1912/11/2019 bacte rial vagin osis panel , vagin al bvab 2 Low - 0 score Not Available [facility] ([facility]) [address] [facility], [place], [address], 12/11/2019 06:12:46 12/05/1912/11/2019 bacte rial vagin osis [...] e zachary cteri stics deter mined by [facility]. It has not been clear ed or appro cristian by the Food and Drug Admin istra tion. The FDA has deter mined that such clear ance or appro daniel is not neces radha. Not Available [facility] ([facility]) [address] [facility], [place], [address], 12/11/2019 06:12:46 12/05/1912/11/2019 bacte rial vagin osis panel , vagin al janice albicans, ALBERTO Negati ve negati ve Not Available [facility] ([facility]) [address] [facility], [place], [address], 12/11/2019 06:12:46 12/05/1912/11/2019 bacte rial vagin osis panel , vagin al janice glabrata, ALBERTO Negati ve negati ve Not Available [facility] ([facility]) [address] [place], [address], 12/11/2019 06:12:46 12/05/19 20 12/07/2019 cultu re, vagin al/re ctal, strep tococ cus group B strep gp B ALBERTO Negati ve negati ve Cente rs for Disea se Contr ol and Preve ntion (CDC) and Douglaseri can Congr ess of Obste trici ans [...] n is noted . Not Available [facility] ([facility]) [address] [facility], [place], [address], 12/11/2019 06:12:47 12/05/1912/08/2019 cultu re, urine urine culture, routine Final report abnormal Not Available [facility] ([facility]) [address] [facility], [place], [address], 12/11/2019 06:12:47 12/05/1912/08/2019 cultu re, urine result 1 Klebsi bambi pneumo niae abnormal Great er than 100,0 00 colon y formi ng units per mL Cefaz corey <=4 ug/mL Cefaz corey with an MAYLEA <=16 predi cts susce ptibi lity to the oral agent s cefac ye, cefdi yosvany, cefpo doxim e, cefpr ozil, cefur oxime , cepha lexin , and lorac arbef when used for thera py of uncom plica roxanne urina ry tract infec tions due to E. coli, Klebs iella pneum oniae , and Prote us mirab ilis. Not Available [facility] ([facility]) [address] [facility], [place], [address], 12/11/2019 06:12:47 12/05/1912/08/2019 cultu re, urine antimicrobia [...] thopr im/Rankin lfa S Not Available [facility] ([facility]) [address] [facility], [place], [address], 12/11/2019 06:12:47 06/01/19 23 06/02/2022 URINE CULTU RE, ROUTI NE urine culture, routine FINAL REPORT Not Available [facility] ([facility]) [address] [facility], [place], [address], 06/02/2022 06:14:07 06/01/19 23 06/02/2022 URINE CULTU RE, ROUTI NE result 1 COMMEN T Cultu re shows less than 10,00 0 colon y formi ng units of bacte edy per allison liter of urine . This colon y count is not gener ally consi dered to be clini samra pattii will costello. Not Available [facility] ([facility]) [address] [place], [address], 06/02/2022 06:14:07 06/01/19 23 06/01/2022 NUSWA B BV AND BRIANNA DA, ALBERTO atopobium vaginae LOW - 0 score Not Available [facility] ([facility]) [address] [place], [address], 06/02/2022 06:14:19 06/01/1906/01/2022 NUSWA B BV AND BRIANNA DA, ALBERTO bvab 2 LOW - 0 score Not Available [facility] ([facility]) [address] [place], [address], 06/02/2022 06:14:19 06/01/1906/01/2022 NUSWA B BV AND BRIANNA DA, ALBERTO [...] e zachary cteri stics deter mined by [facility]. It has not been clear ed or appro cristian by the Food and Drug Admin istra tion. Not Available [facility] ([facility]) [address] [place], [address], 06/02/2022 06:14:19 06/01/1906/01/2022 NUSWA B BV AND BRIANNA DA, ALBERTO janice albicans, ALBERTO NEGATI VE negati ve Not Available [facility] ([facility]) [address] [facility], [place], [address], 06/02/2022 06:14:19 06/01/19 23 06/01/2022 NUSWA B BV AND BRIANNA DA, ALBERTO janice glabrata, ALBERTO NEGATI VE negati ve Not Available [facility] ([facility]) [address] [facility], [place], [address], 06/02/2022 06:14:19 06/01/19 23 05/31/2022 urina lysis [...] DO Not Attach Compendium, Do Not Delete/merge, [id number] 05/31/2022 09:03:28 06/01/1905/31/2022 urina lysis , dipst ick Specific Cortez 1.025 Not Available In-Off ice Order Internal Use Only DO Not Attach Compendium DO Not Attach Compendium, Do Not Delete/merge, [facility] 05/31/2022 09:03:28 06/01/1905/31/2022 urina lysis , dipst ick Ketone Negati ve Not Available In-Office Order Internal Use Only DO Not Attach Compendium DO Not Attach Compendium, Do Not Delete/merge, [id number] 05/31/2022 09:03:28 06/01/1905/31/2022 urina lysis , dipst ick Bilirubin Negati ve Not Available In-Office Order Internal Use Only DO Not Attach Compendium DO Not Attach Compendium, Do Not Delete/merge, [facility] 05/31/2022 09:03:28 06/01/19 23 05/31/2022 urina lysis , dipst ick Glucose 100 Not Available In-Office Order Internal Use Only DO Not Attach Compendium DO Not Attach Compendium, Do Not Delete/merge, [id number] 05/31/2022 09:03:28 06/01/1905/31/2022 urina lysis , dipst ick Appearance Cloudy Not Available In-Offi ce Order Internal Use Only DO Not Attach Compendium DO Not Attach Compendium, Do Not Delete/merge, [facility] 05/31/2022 09:03:28 06/01/1905/31/2022 urina lysis , dipst ick Color Pale Yellow Not Available In-Office Order Internal Use Only DO Not Attach Compendium DO Not Attach Compendium, Do Not Delete/merge, [id number] 05/31/2022 09:03:28 09/10/19 23 09/13/2022 UPPER RESPI RATOR Y CULTU RE upper respiratory culture Final report Not Available [facility] ([facility]) [address] [facility], [place], [address], 09/13/2022 07:14:00 09/10/19 23 09/13/2022 UPPER RESPI RATOR Y CULTU RE result 1 Commen t Routi ne respi rator y jason Not Available [facility] ([facility]) [address] [facility], [place], [address], 09/13/2022 07:14:00 09/10/19 23 09/14/2022 PATHO LOGY REPOR T . Commen t Mater ial submi tted: . PART A: vagin a - VAGIN AL BIOPS Y PART B: vagin a - VAGIN AL BIOPS Y #2 Not Available [facility] ([facility] [address] [facility], [place], [address], 09/14/2022 17:10:11 09/10/19 23 09/14/2022 PATHO LOGY [...] NT FOLLO W-UP ARE RECOM JANETTE Knight [facility] 09/14 1042 Local Not Available [facility] ([facility]) [address] [facility], [place], [address], 09/14/2022 17:10:11 09/10/19 23 09/14/2022 PATHO LOGY REPOR T . Commen t Elect margarita caba d: . Onel awan MD, Patho logis t Not Available [facility] ([facility]) [address] [facility], [place], [address], 09/14/2022 17:10:11 09/10/19 23 09/14/2022 PATHO LOGY [...] ITS ENTIR ETY IN CASSE TTE b1. KATHERIN/K DESTINEE 09/12 1054 Local Not Available [facility] ([facility]) [address] [facility], [place], [address], 09/14/2022 17:10:11 09/10/19 23 09/14/2022 PATHO LOGY REPOR T . Commen t Patho logis t provi ded ICD-1 0: L82.1 Not Available [facility] ([facility]) [address] [facility], [place], [address], 09/14/2022 17:10:11 09/10/19 23 09/14/2022 PATHO LOGY REPOR T . Commen t CPT . 01133 1, 57934 2 Not Available [facility] ([facility]) [address] [facility], [place], [address], 09/14/2022 17:10:11 10/08/1910/07/2020 MAMMO , scree guerda, bilat eral No observ ation record ed. [email or web address] [facility] [address] [place], [address], 11/19/2020 12:35:37 12/01/1911/30/2022 MAMMO , scree guerda, bilat eral No observ ation record ed. [address], [place], [address], 12/05/2022 10:12:44 12/01/1911/30/2022 MAMMO , scree guerda, bilat eral No observ ation record ed. [facility] [address] [place], [address], 12/01/2022 15:59:09 Result Notes None recorded. Problems Name Problem SNOMED Code Status Onset Date Resolution Date Notes Provider Name and Address Organization Details Recorded Time Morbid obesity 984095450 Active 2019 Eduardo vaca, [place] [facility] 0 15:34:32 Hypothyroid ism 05968033 Active 2019 Edu[place] [facility] 0 15:55:57 Hypertensiv e disorder 77607159 Active 2019 Eduardo Porrasman [place] [facility] 0 15:56:02 Diabetes mellitus 99758491 Active 2019 Eduardo Kirkpatrick [place] [facility] 0 15:56:06 Hyperlipide silva 23900727 Active 2019 Eduardo Kirkpatrick [place] [facility] 0 15:56:18 Rheumatoid arthritis 55141654 Active 2022 FRANCISCO J SERRANO Attn: Salvador chavez,[address] [facility], [place], [address], [place] [facility] 3 09:01:26 Menopause present 399256033 Active 2022 FRANCISCO J SERRANO Attn: Salvador scott,[address] [place], [address], [place] [facility] 3 09:03:40 Recurrent urinary tract infection 613428443 Active 2022 FRANCISCO J SERRANO Attn: Salvador scott,[address] [place], [address], [place] [facility] 3 09:03:42 Liver enzymes level above reference range 818158918 Active 2022 FRANCISCO J SERRANO Attn: Salvador scott,[address] [place], [address], [place] [facility] 3 09:04:52 Splenic hematoma 395626482 Active 2022 FRANCISCO J SERRANO Attn: Salvador chavez,[address] [place], [address], [place] [facility] 3 09:05:02 Partial thickness rotator cuff tear 147028357 Active 2022 FRANCISCO J SERRANO Attn: Salvador scott,[address] [place], [address], [place] [facility] 3 09:05:19 Primary fibromyalgi a syndrome 63826781 Active 2022 FRANCISCO J SERRANO Attn: Salvador chavez,[address] [place], [address], [place] [facility] 3 09:05:32 Bilateral shoulder osteoarthri tis 9613710261092 08 Active 2022 FRANCISCO J SERRANO Attn: Salvador chavez,[address] [place], [address], [place] [facility] 3 09:05:58 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 FRANCISCO J SERRANO Attn: Salvador chavez,[address] [place], [address], [place] [facility] 3 09:06:06 Gastroesoph ageal reflux disease without esophagitis 003971805 Active 2022 FRANCISCO J SERRANO Attn: Salvador scott,[address] [facility], [place], [address], [place] [facility] 3 09:06:14 Obstructive sleep apnea syndrome 97331752 Active 2022 FRANCISCO J SERRANO Attn: Salvador chavez,[address] [facility], [place], [address], [place] [facility] 3 09:06:37 Gout 54977388 Active 2022 FRANCISCO J SERRANO Attn: Salvador chavez,[address] [place], [address], [place] [facility] 3 09:06:45 Anxiety 78182403 Active 2022 FRANCISCO J SERRANO Attn: Salvador chavez,[address] [facility], [place], [address], [place] [facility] 3 09:06:51 Major depressive disorder 837844690 Active 2022 FRANCISCO J SERRANO Attn: Salvador chavez,[address] [facility], [place], [address], [place] [facility] 3 09:06:58 Amputated big toe 792729029 Active 2022 FRANCISCO J SERRANO Attn: Salvador chavez,[address] [facility], [place], [address], [place] [facility] 3 09:07:44 Diabetic peripheral neuropathy 784977480 Active 2022 FRANCISCO J SERRANO Attn: Salvador chavez,[address] [place], [address], [place] [facility] 3 09:07:53 Problem Notes Documentation Provider Name and Address Organization Details Recorded Time Web Production Designer Consult Note : This document (1 of 1) was received from [email or web address] [email or web address].S. [email or web address] on 12/17/2024 through Direct Message along with the following message body content: Patient Name: ANGEL DOBBS. Patient : 1950. Patient . Marti Todd lio [place] 12/20/2024 14:30:15 Procedures Surgical History Date Name Laterality Status Provider Name and Address Organization Details Recorded Time 09/10/19 23 Shave Biopsy completed FRANCISCO J SERRANO Attn: Accounting,[address] [place], [address], [place] [facility] 09/09/2022 16:09:52 05/01/19 20 Most Recent Mammogram completed Pascale Sherwood [place] 12/05/2019 12:29:20 07/29/19 19 Orthopedic Surgery completed Rosario Corley [place] 04/11/2019 15:29:51 06/06/19 18 Date of Last Pap Smear completed Rosario Corley [place] 04/11/2019 15:26:57 02/27/19 15 Orthopedic Surgery completed Debra Magallanes [place] 06/09/2014 11:55:20 02/27/19 13 Orthopedic Surgery completed Debra Magallanes [place] 06/09/2014 11:55:20 02/27/19 11 Other completed Debra Magallanes [place] 06/09/2014 11:55:20 02/27/19 11 Orthopedic Surgery completed Debra Magallanes [place] 06/09/2014 11:55:20 02/27/19 08 Appendectomy completed Debra Magallanes [place] 06/09/2014 11:55:20 02/27/19 05 Other completed Debra Magallanes [place] 06/09/2014 11:55:20 Imaging Results None recorded. Procedure Notes None recorded. Medical Equipment None Reported. Allergies Allergen ID Allergen Name Allergen Category Reaction Reaction Severity Criticality Documentation Date Start Date Code Code System Note Provider Name and Address Organization Details Recorded Time 719821 vancomyci n medicatio n hives moderate Not available 12/05/2019 20317 RxNorm MIGUEL ANGEL [place], [place] [facility] 0 12:24:26 710993 Betadine medicatio n rash mild Not available 12/05/2019 0 RxNorm Pascale Sherwood [place], [place] [facility] 0 12:24:58 454119 lisinopri l medicatio n cough mild Not available 12/05/2019 81089 RxNorm Pascale Sherwood [place], [place] [facility] 0 12:25:17 Medications Name [...] Mini Pen Needle 31 gauge x 05/12 completed Not Available Not Available Not Available [...] (BMI) Body weight Body temperature Oxygen saturation Heart rate Systolic And Diastolic Provider Name and Address Organization Details Last Updated DateTime 4 160.02 cm 37.4 kg/m2 87749.4 2 g 98.5 [degF] 98 % 100 /min 136/70 mm[Hg] Elayne Fernandez MA [facility] 4 09:16:39 Date Recorded Body height Body mass index (BMI) Body weight Heart rate Body temperature Oxygen saturation Systolic And Diastolic Provider Name and Address Organization Details Last Updated DateTime 3 160.02 cm 40.1 kg/m2 695808. 28 g 84 /min 98.9 [degF] 94 % 116/70 mm[Hg] Pascale Beltran MA [facility] 3 08:44:28 Date Recorded Body height Body mass index (BMI) Body weight Heart rate Oxygen saturation Systolic And Diastolic Provider Name and Address Organization Details Last Updated DateTime 3 160.02 cm 40.2 kg/m2 360552. 47 g 92 /min 94 % 128/70 mm[Hg] La Monterroso MA [facility] 3 14:37:58 Date Recorded Body height Body mass index (BMI) Body weight Systolic And Diastolic Provider Name and Address Organization Details Last Updated DateTime 12/05/2019 160.02 cm 40.4 kg/m2 081152.06 g 120/68 mm[Hg] Pascale Sherwood MA [facility] 12/05/2019 12:33:59 Date Recorded Body height Body mass index (BMI) Body weight Body temperature Oxygen saturation Heart rate Systolic And Diastolic Provider Name and Address Organization Details Last Updated DateTime 3 160.02 cm 40.5 kg/m2 322211. 5 g 98.5 [degF] 95 % 83 /min 126/72 mm[Hg] Elayne Fernandez [place] [facility] 3 14:30:21 Social History Question Answer Notes LastModified by Organizat ion Details LastModified Time Tobacco Smoking Status Former Smoker 04/11/2019 pt states stopped smoking 1997 Rosario Corley [place] null, [place] [facility] 04/11/2019 15:28:20 Do You [...] virus, quadrivalent, PF 8 completed Elayne Fern[place] [facility] 12/09/2022 14:22:16 influenza, unspecified formulation 3 completed Elayne Fern[place] [facility] 12/09/2022 14:27:44 Influenza, split virus, quadrivalent, preservative 0 completed Pascale Sherwood [place] [facility] 01/20/2020 17:59:24 Past Encounters Encounter ID Performer Location Encounter Start Date Encounter Closed Date Diagnosis/Indication Diagnosis SNOMED-CT Code Diagnosis ICD10 Code Diagnosis IMO Codes Diagnosis Note [id number] MD Jagjit Penaloza (BOTTLE GAUGER) [address] [place] [phone] 06/09/2014 10:41:57 06/09/2014 13:37:25 Gynecologic examination 05637487 Screening mammography [id number] MD Jagjit Penaloza (BOTTLE GAUGER) [address] [place] [phone] 06/05/2017 14:50:45 06/05/2017 16:13:49 Gynecologic examination 18632860 Z01.419 Z11.51 Screening mammography 24 659245 Z12.31 Exposure t o sexually transmissible disorder 772894828 Z20.2 [id number] MD Jagjit Penaloza (BOTTLE GAUGER) [address] [place] [id number] 04/11/2019 14:49:28 04/15/2019 10:24:43 Screening mammography 93795245 Z12.31 Urinary tr act infectious disease 69692188 N39.0 Morbid obesity 377727888 Z68.41 Dysfunctio n of urinary bladder 45402910 R39.89 OAB vs stress/urg e incontinen ce Menopausal syndrome 1237 53753 N95.9 [id number] MD Jagjit Penaloza (BOTTLE GAUGER) [address] [place] [phone] 12/05/2019 11:39:11 12/09/2019 12:25:36 Recurrent urinary tract infection 169503259 N39.0 Administra tion of influenza vaccine 47999233 Z23 Atrophic vaginitis 53133 000 N95.2 Exposure t o sexually transmissible disorder 505581398 Z20.2 [id number] FRANCISCO J SERRANO (Adult Med) [address] [place] [address] 0 05/31/2022 08:11:20 06/01/2022 09:41:02 Recurrent urinary tract infection [id number] N39.0 Following with Urology for recurrent UTIs, [...] than UTI, starting tx today Menopause present 465749 006 N95.1 WEnt through menopause around age 52, denies major issues with hot flashes, vaginal dryness (however no longer sexually active), and mood changes- discussed menopause diagnosis- likely atrophic vaginitis causing her vaginal symptoms Screening for malignant neoplasm of breast [id number] Z12.39 Last mammogram in 2021, [facility] to request records- Mammogram screening this year based on records Screening for malignant neoplasm of cervix [id number] Z12.4 Last pap smear in 2017 and normal, pap smear prior to that was 05/2014 and also normal- no further pap smears needed at this time since prior pap smears normal over age of 65 Morbid obesity 263687670 E66.01 Advised decreased portion sizes, good food choices, limited eating out or fast food and eliminate soda and juice from diet. Advised physical activity daily and offered encouragem ent to continue with positive changes made so far. Depression screening 171 711119 Z13.31 PHQ 2/9 was negative in office today (0 out of 27) Increased frequency of urination 143352822 R35.0 Patient reporting x3-4 episodes of incontinen ce daily. Admits to chronic urinary frequency, urgency, stress incontinen ce and urge incontinen ce. Wears diapers daily- vaginal swab completed- provided informatio n on mixed urinary incontinen ce- consider pelvic floor PT in the future Ex-smoker 7041923 Z87.89 1 Prior history of smoking- keep up good work, continue to avoid Atrophic vaginitis 23506 000 N95.2 Presenting today with vaginal pruritus, irritation , and dryness. Atropy seen on exam- Start estradiol 0.01 % three time a week for 30 days- f/u in 3 months to check for improvemen t Non-neoplastic nevus 195 563909 I78.1 2 small skin nevi present on the left side of mons pubis, she is interested in getting them removed- plan for longer visit at next visit and will complete removal [id number] FRANCISCO J SERRANO (Adult Med) [address] [place] [address]2385-434 0 09/09/2022 14:06:24 09/12/2022 15:04:12 Non-neoplastic nevus [id number] I78.1 3 small skin nevi present on the left side of mons pubis, she is interested in getting them removed#1: larger lesion more superior on the mons pubis#2: two smaller lesions more inferior on mons pubis- tolerated procedure well and bleeding controlled with pressure and silver nitrate Atrophic vaginitis 32483 000 N95.2 Originally presented with vaginal pruritus, irritation , and dryness. Atrophy seen on exam- c/w estradiol 0.01 % three time a week- f/u in 3 months to check for improvemen t Menopause present 681458 006 N95.1 Went through menopause around age 52, denies major issues with hot flashes, vaginal dryness (however no longer sexually active), and mood changes- discussed menopause diagnosis- likely atrophic vaginitis causing her vaginal symptoms Screening for malignant neoplasm of breast 695515383 Z12.39 Last mammogram in 2021, ordered by PCP in [facility]- Call [facility] to request records- Mammogram screening this year based on records Screening for malignant neoplasm of cervix 805723520 Z12.4 Last pap smear in 2018 and normal, pap smear prior to that was 05/2014 and also normal- no further pap smears needed at this time since prior pap smears normal over age of 65 Ex-smoker 4247926 Z87.89 1 Prior history of smoking- keep up good work, continue to avoid Depression screening 171 461892 Z13.31 PHQ 2/9 was negative in office today (0 out of 27) Morbid obesity 597501454 E66.01 Advised decreased portion sizes, good food choices, limited eating out or fast food and eliminate soda and juice from diet. Advised physical activity daily and offered encouragem ent to continue with positive changes made so far. Pain in throat 596570002 R07.0 At risk for yeast infection 2/2 DM, erythemato us on exam. Screening for malignant neoplasm of colon 594534953 Z12.11 Notes colonoscop y completed at [facility] in the last few years, will request those records [id number] FRANCISCO J SERRANO (Adult Med) [address] [place] [address]31[address]403 0 12/09/2022 14:13:43 12/09/2022 15:00:50 Atrophic vaginitis 59987314 N95.2 Originally presented with vaginal pruritus, irritation [...] or once weekly as tolerated Menopause present 161257 006 N95.1 Went through menopause around age 52, denies major issues with hot flashes, vaginal dryness (however no longer sexually active), and mood changes- discussed menopause diagnosis- likely atrophic vaginitis causing her vaginal symptoms- discuss DEXA at next visit Screening for malignant neoplasm of cervix 331829436 Z12.4 Last pap smear in 2017 and normal, pap smear prior to that was 05/2014 and also normal- no further pap smears needed at this time since prior pap smears normal over age of 65 Ex-smoker 9100665 Z87.89 1 Prior history of smoking- keep up good work, continue to avoid Morbid obesity 521382767 E66.01 Advised decreased portion sizes, good food choices, limited eating out or fast food and eliminate soda and juice from diet. Advised physical activity daily and offered encouragem ent to continue with positive changes made so far. Genital warts 745089406 A63.0 Biopsy results from recent skin lesion removal revealed genital warts- discussed diagnosis with patient today, has not been sexually active for years and no additional lesions present in the past or currently [id number] Lesly Gan MD [facility] (Adult Med) [address] [place] [address] 04/17/2023 08:58:08 04/19/2023 11:56:47 Acute upper respiratory infection 76028862 J06.9 Gargle with warm salt water once [...] for cleaning the machine. Depression screening 171 951483 Z13.31 PHQ9- Negative (0 out of 27) Mental hea lth screening 849683217 Z13.39 GAD7- Negative (1 out of 21) Body mass index 30+ - obesity 513254498 Z68.37 BMI 37.4 Health Concerns Section Related Observation LastModified by Organization Detai ls LastModified Time None Recorded Concern Status LastModified by Organization Details LastModified Time None Recorded Advance Directives Directive N: Payers Insurance Date Sequence Insurance Name Policy Number Policy Puga Covered Member ID Puga Member ID Guarantor Name 04/14/2023 [place] [facility] Angel Secondcreek [id number] Angel Secondcreek 04/14/2023 2 [place] Angel L Secondcreek [id number] Angel Secondcreek 04/14/2023 1 [place] [id number] Angel Secondcreek [id number] Angel Secondcreek 06/05/2017 1 [place] [id number] Drake Secondcreek [id number] Angel Secondcreek 05/31/2022 1 [employer] (MEDICARE REPLACEMENT /ADVANTAGE - PPO) [id number] Angel Dobbs [id number] Angel Dobbs Notes Date Note Type Note Provider Name and Address Organization Details Recorded Time 12/05/2019 text/html Vaginal/Vulvar ProblemReported by PatientHPIFor associated symptoms, patient reportsno vaginal itching,no vaginal irritation,no vaginal pain,no vulvar itching/irritation,no vulvar swelling/erythema,no vulvar pain,no vulvar lesions,no pelvic pain,no dyspareunia,no dyruria,no fever, andno abdominal pain. 69 yo F presenting for vulvar itching x2-3 weeks. Her roll carrier discovered a UTI on routine UA and prescribed an antibiotic. She completed the course but the UTI persisted. The roll carrier then referred her to a urologist. The urologist prescribed Macrobid. She just completed the course of Macrobid for 2 weeks. Today on UA she still has a UTI, but her symptoms have resolved. Denies fever, chills, abnormal vaginal discharge, bleeding, dysuria, hematuria, N/V/D/C. Eduardo vaca, [place] - PEND[facility] 12/05/2019 16:25:15 05/31/2022 text/html ROS as noted in the HPI Angel Dobbs is a 71 y/o female with PMHx of DM (last A1c 8.1%) c/b left great toe amputation, rheumatoid arthritis, Sjogren's syndrome, LEXII, hyperlipidemia, hypertension, hypothyroidism, and recurrent UTIs reporting to clinic for [facility] exam. Patient notes a history of recurrent UTIs with the last being in the beginning of April. She does follow a Urologist at [facility]? and was prescribed Keflex. Patient feels like the symptoms have not resolved as she continues to have pruritus and vaginal irritation. Denies any dysuria and hematuria. Last mammogram was in 2021 in [place] by her PCP. Last pap smear in 2014 and 2017 with no concerning findings. Denies vaginal discharge, abnormal vaginal bleeding, breast pain, and nipple discharge. FRANCISCO J SERRANO Attn: [address]ing[address] [place], [address], [facility] 05/31/2022 14:39:58 09/09/2022 text/html ROS as noted in the [facility] 72yo F presenting for skin lesion removal, discussed at previous visit. Also complaining of chronic dry throat that has felt mildly painful. No recent illness or current viral symptoms. History of DM and poor fitting dentures. No other complaints. FRANCISCO J SERRANO Attn: Accounting[address] [facility], [place], [address], [facility] - PENDING SALE TO [facility] 09/09/2022 16:30:24 12/09/2022 text/html ROS as noted in the HPI 72yo F presenting today for atrophic vaginitis f/u. Doing well [...] hematuria. FRANCISCO J SERRANO Attn: Accounting[address] [facility], [place], [address], [facility] - PENDING SALE TO [facility] 12/11/2022 12:38:13 04/17/2023 text/html ROS as noted in the [facility] 72-year-old female here to establish care. Patient has h/o [...] N/V. NICHOLAS AVILES PA-C Attn: Accounting[address] [facility], [place], [address], [facility] - PENDING SALE [facility] 04/17/2023 09:38:38 OBGyn Episode No OBEpisode recorded.
--- OUTSIDE RECORDS SUMMARY | 2025-01-24 14:45 | XMS_ITS | Clinical Summary ---
[facility] Organization [facility] Address [address] [place] [address] Care Team Providers Care Flat Optical Element Maker Name Role Phone Charles Armendariz DO Primary Care Provider Allergies Active Allergy Reactions Criticality Noted Date Comments Canagliflozin Other (See Comments) Low 10/28/2021 Ciprofloxacin Nausea and Vomiting Low 09/08/2022 Daptomycin Diarrhea Low 06/29/2020 Doxycycline Other (See Comments),Unknown Low 09/19/2019 Empagliflozin Diarrhea Low 04/21/2021 Lisinopril Cough Low 08/13/2018 Povidone-Iodine Rash Medium 05/05/2017 Semaglutide Unknown High 01/27/2021 Znotasb-Vjr-Jcz Reductase Inhibitors Muscle Pain Medium 11/05/2020 Valsartan [...] daily. Active fluticasone propionate (FLONASE) 50 mcg/spray Edson, Suspension nasal inhaler Administer 2 Sprays in [...] Encounters Date Type Department Care Team Description 01/21/2025 External Device Data STL ABSTRACTION Provider, Abstract 01/16/2025 Orders Only [facility] Oncology and Hematology - [place] [address] [place] [address] Ray Richards MD 01/13/2025 Orders Only [facility] Oncology and Hematology - [place] [address] [place] [address] Ray Richards MD Chronic anemia 01/07/2025 External Device Data STL ABSTRACTION Provider, Abstract 01/07/2025 External Device Data STL ABSTRACTION Provider, Abstract 01/03/2025 Orders Only [facility] Oncology and Hematology - [place] [address] Ray Richards MD 01/01/2025 Orders Only [facility] Oncology and Hematology - [place] [address] [place] [address] Ray Richards MD Chronic anemia (Primary Dx) 12/31/2024 External Device Data STL ABSTRACTION Provider, Abstract 12/30/2024 Orders Only [facility] Oncology and Hematology - [place] [address] [place] [address] Ray Richards MD Chronic anemia 12/18/2024 Orders Only [facility] Oncology and Hematology - [place] [address] [place] [address] Ray Richards MD 12/16/2024 Orders Only [facility] Oncology and Hematology - [place] [address] [place] [address] Ray Richards MD Chronic anemia 12/03/2024 External Device Data STL ABSTRACTION Provider, Abstract 12/02/2024 Orders Only [facility] Oncology and Hematology - [place] [address] [place] [address] Ray Richards MD Chronic anemia 11/26/2024 External Device Data STL ABSTRACTION Provider, Abstract 11/26/2024 External Device Data STL ABSTRACTION Provider, Abstract 11/20/2024 9:00 AM CDT Office Visit [facility] Oncology and Hematology - [place] [address] [place] [address] Ray Richards MD Chronic anemia (Primary Dx) 11/20/2024 Orders Only [facility] Oncology and Hematology - [place] [address] [place] [address] Ray Richards MD 11/18/2024 Orders Only [facility] Oncology and Hematology - [place] [address] [place] [address] Ray Richards MD Chronic anemia 11/12/2024 External Device Data STL ABSTRACTION Provider, Abstract 11/06/2024 Orders Only [facility] Oncology and Hematology - [place] [address] [place] [address] Ray Richards MD 11/04/2024 Orders Only [facility] Oncology and Hematology - [place] [address] [place] [address] Ray Richards MD Chronic anemia 10/29/2024 External Device Data STL ABSTRACTION Provider, Abstract [...] Years Used Date Smoking Tobacco: Former Cigarettes 0 Q uit: 1997 Smokeless Tobacco: Never Tobacco [...] on file Legal Sex Female 3:40 AM BAGGAGE AGENT SUPERVISOR Gender Identity Not on file Sexual Orientation Not on file Last Filed Vital Signs Vital Sign Reading Time Taken Comments Blood Pressure 137/60 11/20/2024 8:45 AM CDT Pulse 89 11/20/2024 8:45 AM CDT Temperature 36.6 C (97.9 F) 11/20/2024 8:45 AM CDT Respiratory Rate 15 11/20/2024 8:45 AM CDT Oxygen Saturation 94% 11/20/2024 8:45 AM CDT Inhaled Oxygen Concentration - - Weight 95.6 kg (210 lb 12.8 oz) 11/20/2024 8:45 AM CDT Height 154.9 cm (5' 1) 04/12/2023 1:08 PM BAGGAGE AGENT SUPERVISOR Body Mass Index 39.83 04/12/2023 1:08 PM BAGGAGE AGENT SUPERVISOR Plan of Treatment Upcoming Encounters Date Type Department Care Team (Late st Contact Info) Description 02/18/2025 9:00 AM BAGGAGE AGENT SUPERVISOR Office Visit [facility] Oncology and Hematology - [place] [address] [place] [address] Madyson Alvarez MD [address] [place] [address] Health Maintenance Due Date Last Done Comments DIABETES MICROALBUMIN ANNUAL SCREEN 1970 LDL CHOLESTEROL ANNUAL 1970 ZOSTER VACCINE (1 of 2) 06/20/1971 FIT-DNA Q 3 years 1997 FIT/FOBT Q 1 year 1997 Flex Sig/CT Colonography Q 5 years 1997 RSV VACCINE (60+ or ) (1 - Risk 50-74 years 1-dose series) 2002 PNEUMOCOCCAL VACCINE 50+ YEA RS (2 of 2 - PCV) 09/16/2010 09/16/2009 BREAST CANCER SCREENING 12/01/2023 12/01/19 23, 10/13/2021, 10/07/2020, Additional history exists INFLUENZA VACCINE (#1) 2024 4, 12/09/2019, 05/27/2015, Additional history exists COVID-19 Vaccine ( - 2024-2 6 season) 2024 09/28/2021, 03/22/2021, 06/10/2020, Additional history exists DIABETES HBA1C Q 6 MONTHS 02/12/20252024, 04/30/2024, 10/24/2023, Additional history exists DIABETES ANNUAL FOOT EXAM 08/13/2025 08/13/2024 DIABETES ANNUAL RETINAL EXAM 09/09/2025, 09/09/2024, 09/04/2023, Additional history exists OSTEOPOROSIS SCREENING 04/02/2029 , 04/02/2024, 09/23/2021, Additional history exists COLORECTAL SCREENING 05/19/2030 05/19/2020 Colorectal Cancer Screening 05/19/2030 DTAP/TDAP/TD VACCINES (2 - T d or Tdap) 09/15/2031 09/14/2021, 02/28/2006 Procedures Procedure Name Priority Date/Time Associated Diagnosis Comments CBC WITH AUTODIFFERENTIAL Routine 2024 10:01 AM BAGGAGE AGENT SUPERVISOR IRON, TIBC, AND PERCENT SATURATION Routine 01/01/2025 1:30 PM BAGGAGE AGENT SUPERVISOR CBC WITH AUTODIFFERENTIAL Routine 2024 12:12 PM BAGGAGE AGENT SUPERVISOR CBC WITH AUTODIFFERENTIAL Routine 2024 12:50 PM CDT CBC WITH AUTODIFFERENTIAL Routine 2024 3:46 PM CDT CBC WITH AUTODIFFERENTIAL Routine 2024 12:30 PM CDT from Last 3 Months Results * CBC WITH AUTODIFFERENTIAL (01/15/2025 10:01 AM BAGGAGE AGENT SUPERVISOR) Only the most recent of5 resultswithin the time period is included. Blood Ray Richards MD HEMATOLOGY ORDERABLES Final Res ult * IRON, TIBC, AND PERCENT SATURATION (01/01/2025 1:30 PM BAGGAGE AGENT SUPERVISOR) Blood us Ray Richards MD CHEMISTRY ORDERABLES Final Resu lt from Last 3 Months Insurance MEDICARE PART A AND B BCBS BLUE ACCESS/TRUE BLUE PPO [employer] HMO OPEN ACCESS [employer] HMO OPEN ACCESS [facility] BLUE ACCESS/TRUE BLUE PPO MEDICARE PART A AND B Care Teams Flat Optical Element Maker Relationship Specialty Start Date End Date Charles Armendariz DO [address] [address] PCP - General Internal Medicine 11/04/22
--- OUTSIDE RECORDS SUMMARY | 2025-01-24 14:46 | XMS_ITS | Encounter Summary ---
Author Organization [facility] Address [address] [place] [address] Phone Care Team Providers Care Rotary Slicing Machine Operator Name Role Phone Charles Armendariz DO Primary Care Provider [phone] David Vanegas MD Unavailable [phone] Encounter Details Date Type Department Care [...] on file Legal Sex Female 12:14 AM DATASTAGE CONSULTANT Gender Identity Not on file Sexual Orientation [...] on filedocumented in this encounter Care Teams Rotary Slicing Machine Operator Relationship Specialty Start Date End Date Charles Armendariz DO PCP - General 05/27/16 David Vanegas MD Consulting Physician Cardiology 07/20/18 documented as of this encounter
--- OUTSIDE RECORDS SUMMARY | 2025-01-24 14:46 | XMS_ITS | Encounter Summary ---
Author Organization [facility] Address [address] [place] [address] Phone Care Team Providers Care Teacher Early Childhood Development Name Role Phone Charles Armendariz DO Primary Care Provider [phone] David Vanegas MD Unavailable [phone] Encounter Details Date Type Department Care Team (Late st Contact Info) Description 01/30/2023 Orders Only [facility] [phone] Scanning, Provider Social History Tobacco Use Types [...] on file Legal Sex Female 12:14 AM ELECTRICAL DRAFTER Gender Identity Not on file Sexual Orientation [...] on filedocumented in this encounter Care Teams Teacher Early Childhood Development Relationship Specialty Start Date End Date Charles Armendariz DO PCP - General 05/27/16 David Vanegas MD Consulting Physician Cardiology 07/20/18 documented as of this encounter
--- OUTSIDE RECORDS SUMMARY | 2025-01-24 14:46 | XMS_ITS | Encounter Summary ---
Author Organization [facility] Address [address] [place] [address] Care Team Providers Care Executive Cyber Leader Name Role Phone Charles Armendariz DO Primary [...] on file Legal Sex Female 3:40 AM PRECISION INSTRUMENT MAKER AND REPAIRER Gender Identity Not on file Sexual Orientation Not on file documented as of this encounter Plan of Treatment Upcoming Encounters Date Type Department Care Team (Late st Contact Info) Description 02/18/2025 9:00 AM PRECISION INSTRUMENT MAKER AND REPAIRER Office Visit [facility] Oncology and Hematology - [place] [address] [place] [address] Madyson Alvarez MD [address] [place] [address] documented as of this encounter Visit Diagnoses Diagnosis Unspecified hearing loss documented in this encounter Care Teams Executive Cyber Leader Relationship Specialty Start Date End Date Charles Armendariz DO [address] [address] PCP - General Internal Medicine 11/04/22 documented as of this encounter
--- OUTSIDE RECORDS SUMMARY | 2025-01-24 14:46 | XMS_ITS | Encounter Summary ---
Author Organization [facility] Address [address] [place] [address] Care Team Providers Care Skiver Hand Name Role Phone Charles Armendariz DO Primary [...] on file Legal Sex Female 3:40 AM EMERGENCY MANAGER Gender Identity Not on file Sexual Orientation Not on file documented as of this encounter Plan of Treatment Upcoming Encounters Date Type Department Care Team (Late st Contact Info) Description 02/18/2025 9:00 AM EMERGENCY MANAGER Office Visit [facility] Oncology and Hematology - [place] [address] [place] [address] Madyson Alvarez MD [address] [place] [address] documented as of this encounter Visit Diagnoses Diagnosis Unspecified hearing loss documented in this encounter Care Teams Skiver Hand Relationship Specialty Start Date End Date Charles Armendariz DO [address] [address] PCP - General Internal Medicine 11/04/22 documented as of this encounter
--- OUTSIDE RECORDS SUMMARY | 2025-01-24 14:46 | XMS_ITS | Data Portability ---
Author Organization [place] - [facility] [employer], Main Office Address [address] [place] [address] Care Team Providers Care Play Reader Name Role Phone GILBERTO IRIZARRY Primary Care Provider GILBERTO IRIZARRY Referring Provider [phone] Assessment Encounter Date Assessment Date Assessment LastModified by Organization Details LastModified Time 03/21/2024 03/21/2024 This note is dictated and transcribed by [employer] Direct [employer]. Single Stayer Operator variances may occur. Despite proofreading, typographical errors may occur. Occasional wrong-word or 'ikkvh-h-ihsq' substitutions may have occurred due to the inherent limitations of voice recording. Read the chart carefully and recognize, using context, where substitutions have occurred. Not available 03/21/2024 14:50:26 05/02/2024 05/02/2024 Assessment: Nicotine smoke: 1 ppd [phone] = 18 pack yearsDyspnea Mild OSAHS, AHI = 13 PLMD CKD with anemia Hypomagnesemia Mild persistent asthma Elevated BNP Plan: The following were reviewed and explained to the patient: [facility] home sleep study 10/08/15, AHI = 13 [facility] titration sleep study 11/04/15, sleep onset = 6.5 minutes, REM onset = 101.5 minutes, autoCPAP 5-15 cmH2O, PLMI = 7 [facility] titration sleep study 02/11/23 sleep [...] for now. We will try to obtain [facility] sleep study and echocardiogram from 2023. Patient will bring KOKI unit to [facility] for repair. PAP is set at 12 cmH2O. PAP will remain at 12 cmH2O. Keep ramp off. Keep humidifier at level 4. Keep EPR +2 acid filler. Oxygen supplementation: none Patient is benefiting from [...] carrier. Patient will setup an appointment with [facility] for supplies and pressure adjustments. A [...] further management. Follow-up: 9 months, January 2025 Not available 05/02/2024 11:40:53 06/20/2024 06/20/2024 This note is dictated and transcribed by [employer]. Single Stayer Operator variances may occur. Despite proofreading, typographical errors may occur. Occasional wrong-word or 'wqkmm-w-xvtv' substitutions may have occurred due to the inherent limitations of voice recording. Read the chart carefully and recognize, using context, where substitutions have occurred. [email or web address] Not available 06/24/2024 10:05:03 09/19/2024 09/19/2024 This note is dictated and transcribed by [employer]. Single Stayer Operator variances may occur. Despite proofreading, typographical errors may occur. Occasional wrong-word or 'gzrmj-y-deyk' substitutions may have occurred due to the inherent limitations of voice recording. Read the chart carefully and recognize, using context, where substitutions have occurred. Not available 09/19/2024 14:28:37 12/17/2024 12/17/2024 This note is dictated and transcribed by [employer]. Single Stayer Operator variances may occur. Despite proofreading, typographical errors may occur. Occasional wrong-word or 'mcojj-l-zivp' substitutions may have occurred due to the inherent limitations of voice recording. Read the chart carefully and recognize, using context, where substitutions have occurred. Not available 12/19/2024 09:31:11 Plan of Treatment Reminders Order Date Submit Date Provider Last Modified By Organization Details Last Modified Time Details Appointments Any 15 2024 10:00A M Devin Benitez MD Not available Not available Not available Establish ed Patient 10 2025 09:30A M Clifton Saravia DPM Not available Not available Not available Lab magnesium , serum or plasma 2024 025 [facility] ([facility] [address] [place], [address], 12/19/2024 11:35:09 Referral None recorded. Procedures None recorded. Surgeries None recorded. Imaging None recorded. Medication Orders magnesium oxide 400 mg (241.3 mg magnesium ) tablet 2024 025 [id number], [address], [place], [phone], 05/02/2024 11:42:36 Advair Diskus 100 mcg-50 mcg/dose powder for inhalatio n 2024 025 [id number], [address], [place], [phone], 05/02/2024 11:42:39 albuterol sulfate HFA 90 mcg/actua tion aerosol inhaler 2024 025 [id number], [address] [facility], [place], [place], [phone], 05/02/2024 11:42:34 Patient TargetsNo targets recorded. Patient Instructions Encounter Date Encounter Id Patient Instructions Last Modified By Organization Details Last Modified Time 05/02/2024 [id number] complete PFT w/ post bronchodilator spirometry* Not available 12/19/2024 11:34:58 Reason for Referral None Reported. Results Created Date Observation Date Name Description Value Unit Range Abnormal Flag Note LastModifiedBy Organization Detail LastModifiedTime Result Notes None recorded. Problems Name Problem SNOMED Code Status Onset Date Resolution Date Notes Provider Name and Address Organization Details Recorded Time Chronic depressio n 206627136 Active Not Available Replaced by [facility] 3 07:32:08 Partial thickness rotator cuff tear 144635375 Active Not Available Replaced by [facility] 3 07:32:09 Gastroeso phageal reflux disease 055764168 Active Not Available [facility] 3 07:32:09 Anemia 745604549 Active Not Available [facility] 3 07:32:09 Osteoarth ritis 702850790 Active Not Available Replaced by [facility] 3 07:32:10 Hypothyro idism 55958198 Active Not Available Replaced by [facility] 3 07:32:11 Obesity 470989316 Active Not Available [facility] 3 07:32:11 Anxiety 52548210 Active Not Available Replaced by [facility] 3 07:32:12 Hyperlipi demia 11267301 Active Not Available [facility] 3 07:32:12 Wheezing 69253982 Completed Not Available [facility] 3 07:32:13 Essential hypertens ion 03666337 Active Not Available [facility] 3 07:32:13 Obstructi ve sleep apnea syndrome 95714268 Active Not Available [facility] 3 07:32:14 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 Not Available [facility] 3 07:32:15 Gout 56591327 Active Not Available [facility] 3 07:32:15 Primary fibromyal steven syndrome 72127265 Active Not Available [facility] 3 07:32:16 Long-term current use of anticoagu lant 997267241 Active 2021 Not Available [facility] 3 07:32:14 History of amputatio n of left great toe 63809574263 138003 Active 2022 Not Available [facility] 3 07:32:08 Hammer toe 821102589 Active 2022 Not Available [facility] 3 07:32:08 Diabetic periphera l neuropath y 457835938 Active 2022 Not Available [facility] 3 07:32:11 Flexion contractu re of toe joint 884682080 Active 2022 Clifton Saravia DPM [address], [place], [address] , [employer] [facility] [employer] [facility] 3 14:41:16 Sensorine ural hearing loss 52241818 Active 2022 Antoine Tanner MD [address], [address], [place], [address] , [employer] [facility] [employer] [facility] 3 14:29:40 Periodic limb movement disorder 296778226 Active 2023 Devin Benitez MD [address], [place], [address] , [employer] [facility] [employer] [facility] 4 11:48:29 Hypomagne semia 511286303 Active 2023 Devin Benitez MD [address], [place], [address] , [employer] [facility] 4 11:51:11 Mild persisten t asthma 879818414 Active 2023 Devin Benitez MD [address], [address], [place], [address] , [employer] [facility] [employer] [facility] 4 11:41:36 Hammer toe 736409393 Active 2024 Clifton Saravia DPM [address], [place], [address] , [employer] [facility] 5 14:51:19 History of amputatio n of right great toe 43685990250 669491 Active 2024 Clifton Saravia DPM [address], [place], [address] , [employer] [facility] 5 14:51:40 Diabetic on insulin 522699848 Active 2024 Clifton Saravia DPM [address], [place], [address] , [employer] [facility] 5 10:05:12 Dystrophi a unguium 97835157 Active 2024 Clifton Saravia DPM [address], [place], [address] , [employer] [facility] 5 10:05:20 Notes:Medical History: Anxie ty/Depression Sensorineural [...] toe amputation 2023 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 Procedures Surgical History Date Name Laterality Status Provider Name and Address Organization Details Recorded Time 12/18/19 25 Nail Debridement completed Clifton Saravia DPM [address], [place], [address], [facility] 12/19/2024 09:31:06 09/20/19 25 Nail Debridement completed LUCIA [address], [place], [address], [facility] 09/19/2024 14:28:14 06/21/19 25 Nail Debridement completed LUCIA [address], [place], [address], [facility] 06/24/2024 10:04:29 03/21/19 25 Nail Debridement completed LUCIA [address], [place], [address], [facility] 03/21/2024 14:48:29 10/23/19 24 Nail Debridement completed LUCIA [address], [place], [address], [facility] 10/23/2023 11:58:36 07/20/19 24 Nail Debridement completed LUCIA [address], [place], [address], [facility] [employer] [facility] 07/20/2023 15:16:22 06/06/19 24 Incision & Drainage Procedure completed LUCIA [address], [place], [address], [facility] 06/06/2023 10:43:07 04/10/19 24 Nail Debridement completed LUCIA [address], [place], [address], [facility] 04/17/2023 10:52:28 12/23/19 23 Nail Debridement completed LUCIA [address], [place], [address], [facility] 12/26/2022 08:11:04 12/23/19 23 Joint Injection-Podia try 6217 completed Clifton Saravia DPM [address], [place], [address], [facility] 12/26/2022 08:10:33 09/23/19 23 Nail Debridement completed Clifton Saravia DPM [address], [place], [address], [facility] [employer] [facility] 09/22/2022 15:10:23 06/24/19 23 Nail Debridement completed Clifton Saravia DPM [address], [place], [address], [facility] [employer] [facility] 06/23/2022 14:40:20 procedure on elbow completed Not Available Replaced by [facility] 04/27/2022 07:27:46 procedure on hand completed Not Available Replaced by [facility] 04/27/2022 07:27:46 Imaging Results None recorded. Procedure Notes None recorded. Medical Equipment None Reported. Allergies Allergen ID Allergen Name Allergen Category Reaction Reaction Severity Criticality Documentation Date Start Date Code Code System Note Provider Name and Address Organization Details Recorded Time 72817 Vibramyci n medicatio n other Not available Not available 04/27/202230682 5 RxNorm Not Available Replaced by [facility] 3 07:37:15 16869 vancomyci n medicatio n hives Not available Not available 04/27/2022 34423 RxNorm Not Available Replaced by [facility] 3 07:37:15 87152 valsartan medicatio n other Not available Not available 04/27/2022 93979 RxNorm Not Available [facility] 3 07:37:15 94640 lisinopri l medicatio n cough Not available Not available 04/27/2022 32976 RxNorm Not Available [facility] 3 07:37:15 96538 Betadine medicatio n rash Not available Not available 04/27/202254426 0 RxNorm Not Available Replaced by [facility] 3 07:37:15 Medications Name Sig Start Date [...] e Short Pen Needle 31 gauge x 16 active Not Available Not Available Not Available [...] weight Heart rate Respiratory rate Oxygen saturation Systolic And Diastolic Provider Name and Address Organization Details Last Updated DateTime 5 160.02 cm 38.1 kg/m2 90802.3 6 g 87 /min 14 /min 98 % 106/47 mm[Hg] Sun Millard [place] [employer] [facility] [employer] 14:28:06 Date Recorded Heart rate Respiratory rate Provider N araseli and Address Organization Details Last Updated DateTime 05/02/2024 83 /min 15 /min Devin Benitez MD [address] [place] [address], [address], [address], [facility] [employer] 05/02/2024 11:43:19 Date Recorded Body height Body mass index (BMI) Body weight Body temperature Heart rate Oxygen saturation Systolic And Diastolic Provider Name and Address Organization Details Last Updated DateTime 5 160.02 cm 36.7 kg/m2 13003.6 2 g 98.1 [degF] 83 /min 97 % 108/64 mm[Hg] Valentina Payne MA [facility] [employer] [facility] 5 11:25:17 Date Recorded Body height Body mass index (BMI) Body weight Provider Name and Address Organization Details Last Updated DateTime 06/20/2024 160.02 cm 36.7 kg/m2 76800.62 g Sun Millard [facility] [employer] [facility] 06/20/2024 14:23:30 Date Recorded Body height Body mass index (BMI) Body weight Heart rate Oxygen saturation Body temperature Systolic And Diastolic Provider Name and Address Organization Details Last Updated DateTime 5 160.02 cm 36.7 kg/m2 75296.6 2 g 88 /min 93 % 97.7 [degF] 123/51 mm[Hg] Barron Serrano Pedrito [facility] [employer] [facility] 5 14:07:34 Date Recorded Body height Body mass index (BMI) Body weight Oxygen saturation Body temperature Heart rate Systolic And Diastolic Provider Name and Address Organization Details Last Updated DateTime 5 160.02 cm 36.7 kg/m2 05945.6 2 g 95 % 98.4 [degF] 86 /min 143/65 mm[Hg] Barron Serrano Pedrito [facility] [employer] [facility] 5 14:14:46 Social History Question Answer Notes LastModified by Organizat ion Details LastModified Time Tobacco Smoking Status Former Smoker [place] [employer] [facility] [employer] [facility] 04/10/2023 15:54:00 What Is Your Level Of Caffeine Consumption? Moderate [id number] Information not available 04/27/2022 In The 14 [...] Of Your Most Recent Tobacco Screening? 12/17/2024 [email or web address] Information not available 12/17/2024 Have You Ever [...] Functional Status Question Answer Note LastModified by [employer] ion Details LastModified Time Do you use any illicit or recreational drugs? No Information not available 04/10/2023 Do you or have you ever used any other forms of tobacco or nicotine? No Information not available 04/10/2023 What is your level of alcohol consumption? Occasional [id number] Information not available 04/27/2022 Have you been exposed to chemicals or toxins? not that aware of Information not available 01/17/2024 What is your occupation? n/a Information not available 04/10/2023 Mental Status Question Answer Note LastModified by Organization D etails LastModified Time Do you feel stressed (tense, restless, nervous, or anxious, or unable to sleep at night)? [id number] Information not available 01/17/2024 Family History Relationship [...] high-dose, trivalent, PF 3 completed Not Available Replaced by [facility] 04/27/2022 07:37:07 Influenza, high-dose, trivalent, PF 1 completed Not Available Replaced by [facility] 04/27/2022 07:37:07 Influenza, high-dose, trivalent, PF 0 completed Not Available [facility] 04/27/2022 07:37:07 pneumococcal polysaccharide PPV23 0 completed Not Available Replaced by [facility] 04/27/2022 07:37:07 COVID-19, mRNA, LNP-S, PF, 30 mcg/0.3 mL dose 1 completed Not Available Replaced by [facility] 04/27/2022 07:37:08 COVID-19, mRNA, LNP-S, PF, 30 mcg/0.3 mL dose 1 completed Not Available Replaced by [facility] 04/27/2022 07:37:08 Td (adult) 7 completed Not Available Replaced by [facility] 04/27/2022 07:37:08 Past Encounters Encounter ID Performer Location Encounter Start Date Encounter Closed Date Diagnosis/Indication Diagnosis SNOMED-CT Code Diagnosis ICD10 Code Diagnosis IMO Codes Diagnosis Note [id number] S[facility] [place] [address] [place] [address] 01/27/2021 00:00:00 01/27/2021 12:58:10 [id number] [employer]_[facility] [place] [address] [place] [address] 04/15/2021 00:00:00 04/15/2021 14:21:47 [id number] [employer]_[facility] _ATHENA_M IGRATION_ DEFAULT_1 _1 , 05/07/2021 00:00:00 05/10/2021 09:54:36 [id number] S[facility] [place] [address] [place] [address] 07/09/2021 00:00:00 07/23/2021 17:10:07 [id number] [facility] ic_[facility] _ATHENA_M IGRATION_ DEFAULT_1 _1 , 10/22/2021 00:00:00 10/26/2021 10:34:40 [id number] Clifton Saravia DPM [facility] [place] [address] [facility] [address] [place] [address] 03/14/2022 00:00:00 03/14/2022 12:18:33 [id number] Clifton Saravia DPM [facility] [place] [address] [facility] [address] [place] [address] 06/23/2022 13:45:11 06/23/2022 14:45:21 Diabetic peripheral neuropathy 516546593 E11.42 Patient educated on neuropathy , diabetes, diabetic diet, and daily foot exams. Patient is to check feet daily for new wounds, blisters, redness to prevent infection and ulceration s to the feet. Patient will return to clinic in 3 months for diabetic foot workup. History of amputation of left great toe 7419719793 1110865 Z89.412 secondary to history of toe amputation to the left foot with existing neuropathy the and plantar flexion contractur e of her toes patient would benefit greatly from diabetic shoes and insoles to prevent recurrent wounds of her feet. Flexion co ntracture of toe joint 576240146 M21.279 bilateral feetoffloa [employer]Rx diabetic shoes Dystrophia unguium 08504 009 L60.3 Nails 1 through 9 were debrided with sharp mechanical debridemen t without incident. Nails were debrided and greater than 50% length and thickness where needed. Obesity 377689549 E66.9 recommend weight loss facilitate with PCP Dog bite - wound 1630668 05 W54.0XXA dorsal right footcontin ue daily wound careif signs of infection present seek medical attention immediatel yFollow-up in 1 week [id number] Clifton Saravia DPM [facility] [place] [address] [place] [address] 07/05/2022 09:51:18 07/05/2022 10:44:16 Dog bite - wound 344021422 W54.0XXA dorsal right footresolv ed paincontin ue daily wound careif signs of infection present seek medical attention immediatel yFollow-up in 1 week Blister of toe without infection 40043278 S90.424D right 5th toehealedc ontinue supportive shoe gearFollow -up as needed [id number] Clifton Saravia DPM [facility] [place] [address] [place] [address] 09/22/2022 14:45:42 09/22/2022 15:28:11 Diabetic peripheral neuropathy 123660702 E11.42 Patient educated on neuropathy , diabetes, diabetic diet, and daily foot exams. Patient is to check feet daily for new wounds, blisters, redness to prevent infection and ulceration s to the feet. Patient will return to clinic in 3 months for diabetic foot workup.has not obtained diabetic shoes and inserts- we did check and have sent all for work to [facility]. Dystrophia unguium 30257 009 L60.3 Nails 1 through 9 were debrided with sharp mechanical debridemen t without incident. Nails were debrided and greater than 50% length and thickness where needed. History of amputation of left great toe 0710676230 1256039 Z89.412 secondary to history of toe amputation to the left foot with existing neuropathy the and plantar flexion contractur e of her toes patient would benefit greatly from diabetic shoes and insoles to prevent recurrent wounds of her feet. [id number] Antoine Tanner [facility] [place] [address] [place] [address] 12/01/2022 14:02:01 12/01/2022 14:30:56 Sensorineural hearing loss 12161222 H90.5 [id number] Clifton Saravia DPM [facility] [place] [address] [place] [address] 12/22/2022 15:40:56 12/26/2022 09:46:24 Acquired hallux limitus of right great toe 4285856057 215808 M20.5X1 injection 4 mg dexamethas one phosphate right great toe metatarsop halangeal joint, 12/22/2022 Diabetes mellitus 255837 09 E11.40 continue PCP recommenda tion Diabetic p eripheral neuropathy 086008908 E11.42 Patient educated on neuropathy , diabetes, diabetic diet, and daily foot exams. Patient is to check feet daily for new wounds, blisters, redness to prevent infection and ulceration s to the feet. Patient will return to clinic in 3 months for diabetic foot workup.has not obtained diabetic shoes and inserts- we did check and have sent all for work to [facility]. Dystrophia unguium 72153 009 L60.3 Nails 1 through 9 were debrided with sharp mechanical debridemen t without incident. Nails were debrided and greater than 50% length and thickness where needed. History of amputation of left great toe 8524239205 7425732 Z89.412 secondary to history of toe amputation to the left foot with existing neuropathy the and plantar flexion contractur e of her toes patient would benefit greatly from diabetic shoes and insoles to prevent recurrent wounds of her feet. [id number] Clifton Saravia DPM [facility] [place] [address] [place] [address] 04/10/2023 15:52:59 04/17/2023 11:12:34 Diabetes mellitus 90370767 E11.40 continue PCP recommenda tion History of amputation of left great toe 3519108446 4966588 Z89.412 secondary to history of toe amputation to the left foot with existing neuropathy the and plantar flexion contractur e of her toes patient would benefit greatly from diabetic shoes and insoles to prevent recurrent wounds of her feet. Dystrophia unguium 94950 009 L60.3 Nails 1 through 9 were debrided with sharp mechanical debridemen t without incident. Nails were debrided and greater than 50% length and thickness where needed. [id number] Cameron Dan DPM [facility] Pod[facility] [address] [address] 06/06/2023 09:50:06 06/06/2023 10:49:15 Abscess of skin and/or subcutaneous tissue [id number] L02.91 [id number] Cameron Dan DPM [facility] [place] [address] [place] [address] 06/12/2023 09:52:01 06/12/2023 11:19:21 [id number] Clifton Saravia DPM [facility] [place] [address] [place] [address] 07/20/2023 14:23:03 07/21/2023 10:41:03 Skin eschar 330892523 R23.4 left 2nd toekeep clean and dryallow to healif not healed in 1 week return office Blood blister 754787793 T14.8XXA left 3rd toeas above Dystrophia unguium 01317 009 L60.3 Nails 1 through 9 were debrided with sharp mechanical debridemen t without incident. Nails were debrided and greater than 50% length and thickness where needed. Diabetes mellitus 390858 09 E11.40 continue PCP recommenda tion [id number] Devin Benitez MD [facility] Pulmonolo gy [address] [address] 07/26/2023 10:46:36 07/27/2023 08:40:44 Dyspnea on exertion 49950308 R06.09 R05.3 D89.9 T78.40XA Obstructiv e sleep apnea syndrome 27694417 G47.33 Periodic l imb movement disorder 431139511 G47.61 D50.8 E83.42 [id number] Clifton Saravia [facility] [place] [address] [place] [address] 08/24/2023 11:38:20 08/24/2023 14:23:44 Bunion 135573298 M21.619 recommend offloading supportive shoe gear wide soft toe box shoes recommende dIf continues to be problemati c will require surgery currently denies surgery Blood blister 619661812 T14.8XXA medial great toe rightofflo adingkeep the area clean and dry dailyFollo w-up in 1-2 weeks [id number] Clifton Saravia DPM [facility] [place] [address] [place] [address] 10/23/2023 11:01:33 10/23/2023 16:47:22 Open wound of right great toe [id number] 1016552 S91.101A right great toe- full-thick ness secondary to callusing and skin fissurecon tinue offloading Rx- extra-dept h, neoprene style toe box diabetic shoesmonit or for infection at present seek medical attention immediatel ySeeking wound care with [facility] Open wound of toe of left foot [id number] 7871298 S91.105A left 2nd- full-thick ness, fibrotic wound bed no acute signs of infectionc ontinue offloading wound care dailyseeki ng wound care with [facility] History of amputation of left great toe 4081887213 5752894 Z89.412 secondary to history of toe amputation to the left foot with existing neuropathy the and plantar flexion contractur e of her toes patient would benefit greatly from diabetic shoes and insoles to prevent recurrent wounds of her feet. Diabetic p eripheral neuropathy 318894699 E11.42 Rx diabetic shoe gear- neoprene style toe box shoe, extra-dept h Dystrophia unguium 36166 009 L60.3 Nails 1 through 9 were debrided with sharp mechanical debridemen t without incident. Nails were debrided and greater than 50% length and thickness where needed. [id number] Devin [facility]itez [facility] [address] [address] 11/02/2023 10:56:19 11/03/2023 10:45:37 Dyspnea on exertion 83682988 R06.09 R05.3 D89.9 T78.40XA Obstructiv e sleep apnea syndrome 11825410 G47.33 Periodic l imb movement disorder 168401630 G47.61 D50.8 E83.42 Hypomagnesemia 549488416 E83.42 [id number] Devin Benitez [facility] [address] [address] 01/17/2024 10:40:32 02/26/2024 11:51:28 Obstructive sleep apnea syndrome 33231333 G47.33 Periodic l imb movement disorder 736709937 G47.61 Hypomagnesemia 712397883 E83.42 Mild persi stent asthma 589118845 J45.30 [id number] Clifton Saravia DPM [facility] Podiatry [place] [address] [place] [address] 03/21/2024 14:22:44 03/22/2024 13:46:52 Foot ulcer due to type 2 diabetes mellitus 9686038743 100 E11.621 right 2nd toedaily wound careFollow -up week if not healed History of amputation of right great toe 0713634474 8941074 Z89.411 right great toe well healed- performed by [facility] Dystrophia unguium 88122 009 L60.3 Nails 1 through 8 were debrided with sharp mechanical debridemen t without incident. Nails were debrided and greater than 50% length and thickness where needed. Hammer toe 627024396 M20 .42 left 2nd toeoffload ing dailysilic one toe sleeve recommende drecommend diabetic shoe gear and insoles with extra-dept h shoes [id number] Devin Benitez MD [facility] Pulmonolo [address] [address] 05/02/2024 11:09:11 05/02/2024 11:58:12 Obstructive sleep apnea syndrome 15813832 G47.33 Periodic l imb movement disorder 669567471 G47.61 Hypomagnesemia 484191595 E83.42 Mild persi stent asthma 245133457 J45.30 [id number] Clifton Saravia DPM [facility] Podiatry [place] [address] [place] [address] 06/20/2024 14:10:43 06/25/2024 12:46:48 Diabetic peripheral neuropathy 532790624 E11.42 Rx diabetic shoe gear- neoprene style toe box shoe, extra-dept hcheck feet daily for wounds infection at present seek medical attention immediatel yFollow-up in 3 months Diabetic on insulin 1707 24028 Z79.4 Dystrophia unguium 09363 009 L60.3 Nails 1 through 8 were debrided with sharp mechanical debridemen t without incident. Nails were debrided and greater than 50% length and thickness where needed. [id number] Clifton Saravia DPM [facility] Podiatry [place] [address] [facility] [address] [place] [address] 09/19/2024 14:00:31 09/20/2024 15:15:00 Diabetic peripheral neuropathy 823676237 E11.42 Rx diabetic shoe gear- neoprene style toe box shoe, extra-dept hcheck feet daily for wounds infection at present seek medical attention immediatel yFollow-up in 3 months Dystrophia unguium 51184 009 L60.3 Nails 1 through 8 were debrided with sharp mechanical debridemen t without incident. Nails were debrided and greater than 50% length and thickness where needed. History of amputation of left great toe 4042157305 5355761 Z89.412 secondary to history of toe amputation to the left foot with existing neuropathy the and plantar flexion contractur e of her toes patient would benefit greatly from diabetic shoes and insoles to prevent recurrent wounds of her feet. History of amputation of right great toe 1742303167 1180731 Z89.411 right great toe well healed- performed by [facility] [id number] Clifton Saravia DPM [facility] Podiatry [place] [address] [facility] [address] [place] [address] 12/17/2024 13:59:51 12/24/2024 15:03:05 Diabetic peripheral neuropathy 277220561 E11.42 Rx diabetic shoe gear- neoprene style toe box shoe, extra-dept hcheck feet daily for wounds infection at present seek medical attention immediatel yFollow-up in 3 months Dystrophia unguium 61613 009 L60.3 Nails 1 through 8 were debrided with sharp mechanical debridemen t without incident. Nails were debrided and greater than 50% length and thickness where needed. History of amputation of left great toe 0028525558 1905641 Z89.412 secondary to history of toe amputation to the left foot with existing neuropathy the and plantar flexion contractur e of her toes patient would benefit greatly from diabetic shoes and insoles to prevent recurrent wounds of her feet. History of amputation of right great toe 1546010931 9684621 Z89.411 right great toe well healed- performed by [facility] Health Concerns Section Related Observation LastModified by Organization Detai ls LastModified Time None Recorded Concern Status LastModified by Organization Details LastModified Time None Recorded Advance Directives Directive None Recorded Payers Insurance Date Sequence Insurance Name Policy Number Policy Puga Covered Member ID Puga Member ID Guarantor Name 02/29/2024 4 [facility] ([facility] Aleyda Matute Dilia [id number] Aleyda Matute Dilia 12/24/[address] [facility] - OPEN ACCESS III (PPO) [id number] Aleyda Matute [place] [id number] Aleyda Matute Dilia 12/14/2024 2 MEDICARE-DC (MEDICARE) Aleyda Harrisyton [id number] Aleyda Matute Dilia 12/14/2024 3 BS-DC (PPO) [id number] Drake Gaston [place] [id number] Aleyda Harrisyton Notes Date Note Type Note Provider Name and Address Organization Details Recorded Time 03/21/2024 text/html . Patient is a 73-year-old female diabetic shoe returns the office for follow-up on diabetic foot care. Patient states overall she is doing better. Patient states that she developed worsening wound to the great toe over the holiday she states that she was admitted to [facility] and underwent a amputation of [...] Patient denies any other complaints. Clifton Saravia, LUCIA [address] [place] [address], [facility] [address], [place], [address], [place] - [facility] 03/21/2024 14:52:17 05/02/2024 text/html Primary care/Referring provider: Ashley Soto NP CC: I use [...] doing laundryAlleviating factors: rest Modified [employer] ([employer]) Dyspnea Scale - Grade 2Grade 0 [...] this everydayAdvair diskus 500/50 1 inhalation BID [id number] Other symptoms:Drooling: noDysarthria: noNeck pain: noOdynophagia: noDysphagia: noWeak mastication: noFacial weakness: noNasal speech: noProtruding tongue: noProductive cough: noWheezing: yesChest tightness: yesOrthopnea: noFrequent throat clearing or swallowing: noPalpitations: noHeartburn: yesEdema: yes Environmental exposures:Nicotine smoke: 1 ppd 5400-1965 = 18 pack yearsPaint: noDye: noDust mites: yesMold: noDamp basement: noWood burning stove: noAnimal dander: dogCockroaches: noPollen: yesArsenic: noAsbestos: noBeryllium: noCadmium: noChromium: noCoal smoke: noDiesel fumes: noNickel: noSilica: noSoot: no During the [facility] home sleep study on 10/08/15, AHI = 13.During the [facility] titration sleep study on 11/04/15, [...] chance of dozing. Devin Benitez MD [address] [address], [place], [address], [email or web address] 05/02/2024 11:51:12 06/20/2024 text/html . Patient is a 74-year-old female diabetic she returns for diabetic foot care she denies any new complaints. Clifton Saravia DPM [address], [place] [address], [place], [address], [email or web address] 06/24/2024 10:05:55 09/19/2024 text/html . Patient is a 74-year-old female diabetic who returns the office for routine diabetic foot care overall she is doing well she has newer diabetic shoes she denies any open wounds or infection secondary to use of the shoes. Patient has bilateral amputation of great toes secondary to wounds. Patient has elongated toenails would like to have them cut. Patient denies any other complaints. Clifton Saravia DPM [address], [place] [address], [place], [address], [employer] [facility] 09/19/2024 14:29:29 12/17/2024 text/html . Patient is a 74-year-old [...] modified. Patient understands. Clifton Saravia DPM [address], [facility] [address], [place], [address], [employer] [facility] 12/19/2024 09:33:21 OBGyn Episode No OBEpisode recorded.
[2025-01-24] MEDS: ACETAMINOPHEN 325 MG TABLET 650 MG PO (14:48)
[2025-01-24 15:12] LABS: Influenza A QL RT-PCR Negative (Negative); Influenza B QL RT-PCR Negative (Negative); RSV RNA, RT-PCR Negative (Negative); SARS-CoV-2 RNA PCR Negative (Negative)
[2025-01-24 15:18] LABS: Hematocrit 30.8 % (37.0-47.0); Hemoglobin 9.6 g/dL (12.0-15.0); Immature Granulocyte Percent A 0.6 % (0-0.5); Lymphocytes Absolute Auto 0.61 K/mm3 (0.9-3.2); Mean Corpuscular HGB Conc 31.2 g/dl (32-36); Mean Corpuscular Hemoglobin 27.5 pg (26-34); Mean Corpuscular Volume 88.3 fl (80-100); Nucleated Red Blood Cells Absolute Auto 0.000 K/mm3 (0.0-0.012); Nucleated Red Blood Cells Perc 0.0 % (0.0-0.2); Platelet Count Result 166 k/mm3 (150-375); Red Blood Count 3.49 M/mm3 (4.2-5.4); White Blood Count 8.9 K/mm3 (4.5-10.0)
[2025-01-24 15:30] LABS: Alanine Aminotransferase 23 U/L (6-35); Albumin Level 3.7 g/dL (3.5-5.1); Alkaline Phosphatase 129 U/L (38-126); Anion Gap 6 mmol/L (4-12); Aspartate Amino Transferase 38 U/L (14-36); Bilirubin,Total 0.8 mg/dL (0.2-1.3); Blood Urea Nitrogen 25 mg/dL (7-17); Calcium 8.7 mg/dL (8.4-10.2); Carbon Dioxide 27 mmol/L (22-30); Chloride 100 mmol/L (98-107); Estimated CRCL calculation 27 ml/min; Estimated Glomerular Filt Rate 27; Glucose 116 mg/dL (65-110); Lipase 159 U/L (23-300); Potassium 3.4 mmol/L (3.4-5.0); Sodium 133 mmol/L (137-145); Total Protein 7.9 g/dL (6.3-8.2)
[2025-01-24 17:04] LABS: Add Urine Microscopic? YES; Appearance Urine Turbid (Clear); Glucose Urine UA Negative (Negative); Leukocyte Esterase Ur 3+ LEU/UL (Negative); Need Manual Microscopic Reviewed; Nitrate Urine Negative (Negative); Specific Grav Ur 1.015 (1.001-1.035)
[2025-01-24] MEDS: SODIUM CHLORIDE 0.9% IV 1,000 ML 999 ML IV CONT (17:24)
[2025-01-24] MEDS: cefTRIAXone 1 GM in SODIUM CHLORIDE 0.9% IV 50 ML 100 ML IVPB (17:25)
--- NOTE | 2025-01-24 18:29 | ED.GENADULT ---
HPI - General Adult General Chief complaint: Upper Respiratory Infection Stated complaint: flu-like sx Time Seen by Provider: 01/24/25 14:25 History of Present Illness HPI narrative: The last day or so patient has had pain to her right lower abdomen, with fevers and chills, nausea vomiting. Related Data Home Medications ?Medication ?Instructions ?Recorded ?Confirmed ?Last Taken ?Type cholecalciferol (vitamin D3) 125 5,000 unit PO DAILY 01/02/19 12/22/24 12/13/23 History mcg (5,000 unit) tablet multivitamin 1 tablet PO DAILY 01/02/19 12/22/24 12/13/23 History hydroxychloroquine 200 mg tablet 200 mg PO BID 05/06/20 12/22/24 06/04/24 History (Plaquenil) atorvastatin 40 mg tablet 40 mg PO HS 06/18/20 12/22/24 06/03/24 History calcium carbonate 1,200 mg PO DAILY 12/01/21 12/22/24 12/13/23 History ferrous sulfate 325 mg (65 mg 325 mg PO BID 12/01/21 12/22/24 12/13/23 History iron) tablet furosemide 20 mg tablet 20 mg PO DAILY 09/20/23 12/22/24 06/04/24 History esomeprazole magnesium 20 mg 20 mg PO DAILY 10/17/23 12/22/24 06/04/24 History capsule,delayed release (Nexium 24HR) fluticasone propionate 50 1 - 2 spray intranasal BID allergy 10/17/23 12/22/24 12/13/23 History mcg/actuation nasal symptoms spray,suspension (Allergy Relief (fluticasone)) glimepiride 4 mg tablet 4 mg PO BID 10/17/23 12/22/24 06/04/24 History omega-3 1,050 [id number] 1 cap PO BID 10/17/23 12/22/24 12/13/23 History oil 1,200 mg capsule aspirin 81 mg chewable tablet 81 mg PO DAILY 05/28/24 12/22/24 05/29/24 History (Aspirin Childrens) ascorbic acid (vitamin C) 1 tablet PO DAILY 12/17/24 12/22/24 Unknown History insulin glargine U-300 conc 300 55 unit subcut HS 12/17/24 12/22/24 Unknown History unit/mL (1.5 mL) subcutaneous pen (Toujeo SoloStar U-300 Insulin) leflunomide 20 mg tablet 20 mg PO DAILY 12/17/24 12/22/24 Unknown History rivaroxaban 2.5 mg tablet 2.5 mg PO BID 12/17/24 12/22/24 Unknown History blood-glucose sensor (Dexcom G7 01/08/25 01/15/25 Unknown History Sensor device) Allergies Allergy/AdvReac Type Severity Reaction Status Date / Time daptomycin Allergy Intermediate Hives Verified 01/24/25 14:34 lisinopril Allergy Intermediate Cough Verified 01/24/25 14:34 trimethoprim Allergy Intermediate Itching Verified 01/24/25 14:34 valsartan Allergy Intermediate Hives Verified 01/24/25 14:34 vancomycin Allergy Intermediate Hives Verified 01/24/25 14:34 povidone-iodine (From Allergy Mild Hives Verified 01/24/25 14:34 Betadine) sulfadimethoxine AdvReac Intermediate Vomiting Verified 01/24/25 14:34 Review of Systems Review of Systems: All systems reviewed & are unremarkable except as noted in HPI and below PMFSH Past Medical History Medical History Hospital discharge follow-up Right clavicle fracture Displaced fracture of clavicle UTI symptoms Elevated troponin Elevated troponin Nausea & vomiting Diarrhea Diarrhea Urinary tract infection TERESA (acute kidney injury) COVID-19 Cellulitis of great toe of right foot Cellulitis of great toe, left Person under investigation for COVID-19 COVID Open wound of left great toe Muscle spasm Muscle spasms of both lower extremities Open wound of right great toe Skin ulcer of left great toe with necrosis of muscle SOB (shortness of breath) Acute hypoxic respiratory failure Fever and chills Strain of rotator cuff of left shoulder 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 Lupus Fibromyalgia Sepsis BMI greater than 40 Right knee DJD Left knee DJD Rotator cuff tendonitis Pre-op evaluation Abdominal pain Arthritis of knee, degenerative Thrombocytopenia Polyneuropathy Type 2 diabetes mellitus with complication Sore throat Right wrist pain Rib pain on right side Rheumatoid arthritis of unspecified site with involvement of other organs and systems 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 Pes planus of both feet Pain in left hand Other chronic pain Numbness in both hands Non-pressure chronic ulcer of right heel and midfoot with bone involvement without evidence of necrosis Non-pressure chronic ulcer of other part of unspecified foot 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 Left wrist pain Hives Flat foot [pes planus] (acquired), left foot Essential hypertension Ear ache 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 2 diabetes mellitus Chronic abdominal pain Acute pain of both knees Acute pain of both hips Colon cancer screening Gastroparesis Chronic diarrhea Microscopic colitis Amputation toe Peripheral arterial disease Posterior tibial tendon dysfunction, left Charcot ankle Diarrhea Obesity Left shoulder pain History of NE (myocardial infarction) Carpal tunnel syndrome, bilateral Anemia Polyneuropathy Hypertension Cellulitis of right foot Chicken pox Hernia UTI (urinary tract infection) Heartburn Pneumonia Chronic pain Type 2 diabetes mellitus Hypothyroidism Rheumatoid arthritis Surgical History Surgical History History of hernia repair History of carpal tunnel release Amputation of left great toe Hx of cholecystectomy H/O foot surgery Poor historian- potential left posterior tibial tendon reconstruction Right foot charcot history? with surgery. Family History Family History Father Hyperlipidemia Lung cancer Diabetes mellitus Mother Diabetes mellitus Other Family history of allergic disorder Hypertension Social History Social History Social History: Patient quit tobacco in 1997 after smoking a pack a day for about 30 years. She denies drug use. She occasionally drinks alcohol. Still lives at home with her and brother. She is a full code. She nominated her daughter Elisha to be the individual make medical decisions for her if she is unable. Smoking packs per day: 1 Smoking cigarettes per day: 20.0 Years smoked: 29 Smoking pack-years: 29.00 Smoking status: Former smoker Tobacco type: cigarettes Smoking end date: 02/27/97 Additional smoking assessment comments: denies nicotine Alcohol intake: never Alcohol use details: occasionally Substance use: never Substance use type: does not use Lack of Transportation: No Lack of Food: Never True Current Housing: I Have Housing Concerned About Future Housing: No Difficulty Paying Gas/Electric Bills: No Difficulty Paying for Meds: No Currently Unemployed: No Education: High School Diploma/GED Difficulty w/ Childcare or Family Care: No Living arrangements: with family Additional living arrangements comments: Gender identity (if verbalized by the patient): Female Spiritual care concerns: No Exam Narrative: EXAMINATION OF ORGAN SYSTEMS/BODY AREAS: Constitutional: Vital signs per nursing GENERAL:[No acute distress, non-toxic appearing.] HEAD: Normal with no signs of head trauma. EYES: EOMI, conjunctiva normal ENT: Hearing grossly intact LUNGS: Nonlabored breathing. HEART: [Regular rate and rhythm] ABD: [Soft], slightly tender to deep palpation lower abdomen EXT: Normal range of motion SKIN: [No rashes or lesions.] NEURO: [Alert and oriented x 3. No gross focal sensory or strength deficits.] PSYCH: Normal affect Course Vital Signs Vital signs: Vital Signs Temperature 100.7 F H 01/24/25 14:22 Pulse Rate 105 H 01/24/25 14:22 Respiratory Rate 17 01/24/25 14:22 Blood Pressure 152/62 H 01/24/25 14:22 Pulse Oximetry 96 01/24/25 14:22 Oxygen Delivery Room Air 01/24/25 14:22 Temperature 98.9 F 01/24/25 16:33 Pulse Rate 97 01/24/25 17:27 Respiratory Rate 21 H 01/24/25 17:27 Blood Pressure 104/53 L 01/24/25 17:27 Pulse Oximetry 100 01/24/25 17:27 Oxygen Delivery Room Air 01/24/25 14:34 Medical Decision Making MDM Narrative Medical decision making narrative: Electronic medical record was reviewed. Patient presented to the ED with complaint of [abdominal pain and nausea, fevers and chills]. Vitals showing fever. Physical exam revealed soft abdomen with some slight tenderness to the right lower quadrant/lower abdomen. Based on the patient's history and physical exam, my differential includes but is not limited to [gastritis, gastroenteritis, cholecystitis, appendicitis, UTI]. [IV access was established by nursing staff]. Patient already received Zofran EN route from EMS. She is given IV fluids. CBC, BMP, lipase, LFTs, bilirubin and alk phos were obtained. Labs were pertinent for UTI. [Decision was made to obtain a CT-abdomen to evaluate for acute abdominal process. CT-abdomen per radiology interpretation shows cystitis]. On reevaluation, the patient states that they are feeling much better. There were no witnessed episodes of vomiting in the emergency department. They are not complaining of any new abdominal pain. Repeat examination did not show any significant guarding or rebound. No new tenderness. At this time I do not feel there is any further emergent treatment to be provided. The patient was given strict return precautions, if they are to develop any worsening abdominal pain, vomiting, or blood in the vomit they are to return to the emergency department immediately. Patient verbally acknowledges understanding these directions. [The patient was informed of the above diagnostic test findings.] No further workup is necessary at this time. They will be discharged home with antibiotics based on her last urine culture. They were advised to follow-up with [their PCP] in 2 days. The patient feels that this is appropriate medical decision making and verbalizes an understanding of the discharge instructions. Vital Signs Vital Signs: Vital Signs Temperature 100.7 F H 01/24/25 14:22 Pulse Rate 105 H 01/24/25 14:22 Respiratory Rate 17 01/24/25 14:22 Blood Pressure 152/62 H 01/24/25 14:22 Pulse Oximetry 96 01/24/25 14:22 Oxygen Delivery Room Air 01/24/25 14:22 Temperature 98.9 F 01/24/25 16:33 Pulse Rate 97 01/24/25 17:27 Respiratory Rate 21 H 01/24/25 17:27 Blood Pressure 104/53 L 01/24/25 17:27 Pulse Oximetry 100 01/24/25 17:27 Oxygen Delivery Room Air 01/24/25 14:34 Lab Data 01/24/25 14:59 01/24/25 14:59 Labs: Lab Results 01/24/25 01/24/25 01/24/25 Range/Units 14:30 14:59 16:41 WBC 8.9 (4.5-10.0) K/mm3 RBC 3.49 L (4.2-5.4) M/mm3 Hgb 9.6 L (12.0-15.0) g/dL Hct 30.8 L (37.0-47.0) % MCV 88.3 (80-100) fl MCH 27.5 (26-34) pg MCHC 31.2 L (32-36) g/dl RDW 15.4 H (11.5-14.5) % Plt Count 166 (150-375) k/mm3 MPV 11.3 H (7.4-10.4) fl Immature Gran % (Auto) 0.6 H (0-0.5) % Neut % (Auto) 84.0 H (45.5-73.1) % Lymph % (Auto) 6.9 L (18.3-44.2) % [place] % (Auto) 6.1 (2.6-8.5) % Eos % (Auto) 1.7 (0-4.4) % Baso % (Auto) 0.7 (0.2-1.2) % Lymph # (Auto) 0.61 L (0.9-3.2) K/mm3 [place] # (Auto) 0.5 (0.1-0.6) K/mm3 Eos # (Auto) 0.2 (0-0.3) K/mm3 Baso # (Auto) 0.1 (0.0-0.1) K/mm3 Abs Immat Gran (auto) 0.05 H (0.00-0.031) K/mm3 Absolute Neuts (auto) 7.4 H (1.3-6.7) K/mm3 Absolute Nucleated RBC 0.000 (0.0-0.012) K/mm3 Nucleated RBC % 0.0 (0.0-0.2) % Sodium 133 L (137-145) mmol/L Potassium 3.4 (3.4-5.0) mmol/L Chloride 100 (98-107) mmol/L Carbon Dioxide 27 (22-30) mmol/L Anion Gap 6 (4-12) mmol/L BUN 25 H (7-17) mg/dL Creatinine 1.83 H (0.7-1.0) mg/dL Estim Creat Clear Calc 27 ml/min Estimated GFR 27 L (59 - ) Glucose 116 H (65-110) mg/dL Lactic Acid 1.0 (0.7-2.0) mmol/L Calcium 8.7 (8.4-10.2) mg/dL Total Bilirubin 0.8 (0.2-1.3) mg/dL AST 38 H (14-36) U/L ALT 23 (6-35) U/L Alkaline Phosphatase 129 H (38-126) U/L Total Protein 7.9 (6.3-8.2) g/dL Albumin 3.7 (3.5-5.1) g/dL Lipase 159 (23-300) U/L Urine Color Yellow (Yellow) Urine Appearance Turbid H (Clear) Urine pH 6.0 (5.0-9.0) Ur Specific [place] 1.015 (1.001-1.035) Urine Protein 4+ H (Negative) mg/dL Urine Glucose (UA) Negative (Negative) mg/dL Urine Ketones Negative (Negative) mg/dL Ur Blood (Man) 2+ H (Negative) Urine Nitrate Negative (Negative) Urine Bilirubin Negative (Negative) Urine Urobilinogen 0.2 (<2.0) mg/dL Add Ur Microanalysis Reviewed Leukocyte Esterase Rfl 3+ H (Negative) SCARLET/UL Urine RBC 3-5 H (0-2) /hpf Urine WBC >100 H (0-3) /hpf Ur Squamous Epith Cells Moderate (Few) /hpf Urine Bacteria 4+ /hpf Urine Casts 11-20 Influenza A (RT-PCR) Negative (Negative) Influenza B (RT-PCR) Negative (Negative) RSV (RT-PCR) Negative (Negative) SARS-CoV-2 RNA (RT-PCR) Negative (Negative) Discharge Plan Discharge Clinical Impression: Acute UTI Patient Disposition: Home Condition: Stable Instructions: Antibiotic Form, Urinary Tract Infection in Women (ED) Additional Instructions: Please take the antibiotics as prescribed and come back to the ER for any further issues. Patient Language: [place] Prescriptions: New amoxicillin-pot clavulanate 875-125 mg tablet 1 tablet PO Q12H Qty: 14 0RF acetaminophen [Tylenol Extra Strength] 500 mg tablet 1,000 mg PO Q6H PRN (Reason: pain) Qty: 50 0RF No Action multivitamin Tablet 1 tablet PO DAILY cholecalciferol (vitamin D3) 5,000 unit tablet 5,000 unit PO DAILY ferrous sulfate 325 mg (65 mg iron) tablet 325 mg PO BID calcium carbonate 600 mg calcium (1,500 mg) tablet 1,200 mg PO DAILY leflunomide 20 mg tablet 20 mg PO DAILY rivaroxaban 2.5 mg tablet 2.5 mg PO BID ascorbic acid (vitamin C) 1 tablet PO DAILY metoprolol succinate 25 mg tablet extended release 24 hr 25 mg PO DAILY Qty: 90 0RF hydroxychloroquine [Plaquenil] 200 mg tablet 200 mg PO BID aspirin [Aspirin Childrens] 81 mg tablet,chewable 81 mg PO DAILY amoxicillin-pot clavulanate [Augmentin] 500-125 mg tablet 1 tablet PO Q8H Qty: 21 0RF atorvastatin 40 mg tablet 40 mg PO HS Patient Comments: . glimepiride 4 mg tablet 4 mg PO BID [id number] oil 1,050-1,200 mg Capsule 1 cap PO BID fluticasone propionate [Allergy Relief (fluticasone)] 50 mcg/actuation spray,suspension 1 - 2 spray NASAL BID esomeprazole magnesium [Nexium 24HR] 20 mg Capsule,Delayed Release(Dr/Ec) 20 mg PO DAILY insulin glargine U-300 conc [Toujeo SoloStar U-300 Insulin] 300 unit/mL (1.5 mL) insulin pen 55 unit SUBCUT HS Patient Comments: . Rx Instructions: 55-60 units furosemide 20 mg tablet 20 mg PO DAILY metformin 1,000 mg tablet 1,000 mg PO BID Qty: 180 0RF albuterol sulfate 90 mcg/actuation HFA aerosol inhaler 2 puff INHALATION Q4-6H PRN (Reason: shortness of breath) Qty: 18 2RF Patient Comments: .... levothyroxine 100 mcg tablet See Rx Instructions .ROUTE .COMPLEX Qty: 90 3RF Dose Instruction: TAKE 1 TABLET BY MOUTH DAILY Rx Instructions: TAKE 1 TABLET BY MOUTH DAILY duloxetine 20 mg capsule,delayed release(DR/EC) See Rx Instructions .ROUTE .COMPLEX Qty: 90 1RF Dose Instruction: TAKE 1 CAPSULE BY MOUTH DAILY Rx Instructions: TAKE 1 CAPSULE BY MOUTH DAILY (DME) Dexcom G7 Sensor Device See Rx Instructions .ROUTE Rx Instructions: As directed gabapentin 300 mg capsule 300 mg PO BID Qty: 180 1RF Patient Comments: . Follow-up/Referrals: Charles Armendariz, [Primary Care Provider, Internal Medicine] - 3 Days
== END 2025-01-24 19:30 | disposition home or self-care (01) ==
PROVIDERS: Emergency Provider Emergency Medicine; PCP Internal Medicine
DX: N39.0 Urinary tract infection, site not specified (principal); Z20.822 Contact with and (suspected) exposure to COVID-19; E11.42 Type 2 diabetes mellitus with diabetic polyneuropathy; E11.51 Type 2 diabetes mellitus with diabetic peripheral angiopathy without gangrene; I73.9 Peripheral vascular disease, unspecified; I10 Essential (primary) hypertension; I25.2 Old myocardial infarction; E03.9 Hypothyroidism, unspecified; M17.0 Bilateral primary osteoarthritis of knee; M06.9 Rheumatoid arthritis, unspecified; Z87.01 Personal history of pneumonia (recurrent); Z86.16 Personal history of COVID-19; Z90.49 Acquired absence of other specified parts of digestive tract; Z89.412 Acquired absence of left great toe; Z87.891 Personal history of nicotine dependence; Z79.01 Long term (current) use of anticoagulants; Z79.899 Other long term (current) drug therapy; Z79.84 Long term (current) use of oral hypoglycemic drugs; Z79.4 Long term (current) use of insulin
CPT/HCPCS: 36415; 74176; 80053; 81001; 83605; 83690; 85025; 87040; 87637; 96365; 99284; A9270; J0696; J7030